=== PATIENT | female | born 2005 | race Caucasian/White ===

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

== ENCOUNTER 2024-03-13 07:40 | Outpatient (CLI) | payer OTHER, SELFPAY ==
--- OUTSIDE RECORDS SUMMARY | 2024-03-13 07:47 | XMS RPT_ITS | CCD ---
Author Organization [facility] Care Team Providers Care Systems Test Engineer Name Role Phone Javi Thapa Unavailable Robyn WILKINSON, Ren Liu Primary Care Provider Robyn WILKINSON, Ren Liu Primary Care Provider Unavailable Primary Care Provider Unavailabl e Unavailable Primary Care Provider Unavailabl e ANITRA CALDWELL Referring Unavailable VITOR BROWER Attending Unavailable JAVI, ANITRA Attending Unavailable JAVI, ANITRA Referring Unavailable CHICORELLI, MAYDA SHAIKH Referring Unavailab le CALDWELL, ANITRA Attending Unavailable CALDWELL, ANITRA Attending Unavailable CHICORELLI, MAYDA SHAIKH Referring Unavailab le CAIO, ZAIN Attending Unavailable CALDWELL, ANITRA Referring Unavailable CHICORELLI, MAYDA SHAIKH Attending Unavailab le CHICORELLI, MAYDA SHAIKH Referring Unavailab le CHICORELLI, MAYDA SHAIKH Referring Unavailab le CAIO, ZAIN Attending Unavailable CHICORELLI, MAYDA SHAIKH Referring Unavailab le CALDWELL, ANITRA Referring Unavailable PLOTLEENA FITZPATRICK Attending Unavailable ANITRA CALDWELL Attending Unavailable Allergies Allergy Classification Reported Allergen(s) Allergy Type Date of Onset Reaction(s) Facility Lactase (3 sources) Lactase Drug Allergy 06-26-2020 Other: See Comments [facility] (18 sources) Lactase; Translations: [LACTASE] Drug Allergy 06-26-2020 Other: See Comments [facility] Medications Current Medications Medication Drug Class(es) Dates Sig (Normalized) Sig (Original) aspirin 81 mg delayed release oral tablet (18 sources) Platelet Aggregation Inhibitor, Nonsteroidal Anti-inflammatory Drug Start: 11-14-2023 End: 02-25-2024 take 1 tablet by mouth once daily aspirin, enteric coated (ECOTRIN LOW STRENGTH) 81 mg EC tablet Indications: Encounter for care in first trimester of first Take 1 tablet by mouth once daily. 90 tablet 3 02/25/2024 Active mupirocin 0.02 mg/mg topical ointment (1 source) RNA Synthetase Inhibitor Antibacterial Start: 01-22-2023 End: 01-27-2023 mupirocin (BACTROBAN) 2 % ointment Apply to affected area three times daily for 5 days. 30 g 0 01/22/2023 01/27/2023 Active Comment on above: Apply to affected ar ea three times daily for 5 days. ondansetron 4 mg disintegrating oral tablet (20 sources) Serotonin-3 Receptor Antagonist Start: 11-05-2023 ondansetron orally disintegrating (ZOFRAN ODT) 4 mg disintegrating tablet EVERY 8 HOURS NEEDED as needed for Nausea 11/05/2023 Active Uvzpwvmy-Gj-Ueu-Fe-F A tab (17 sources) Start: 11-14-2023 take 1 tablet by mouth once daily Gdsltsjm-Ak-Rrn-Fe- FA tab Take 1 tablet by mouth once daily. With folic acid and DHA as covered by insurance. 30 tablet 11 11/14/2023 Active VIT 10-IRON FUM-FOLIC ORAL (17 sources) VIT 10-IRON FUM-FOLIC ORAL Take by mouth. Active VIT 10- IRON FUM-FOLIC ORAL Take by mouth. 0 Active promethazine hydrochloride 12.5 mg oral tablet (11 sources) Phenothiazine Start: 12-10-2023 take 1 tablet by mouth every six hours as needed promethazine (PHENERGAN) 12.5 mg tablet Take 1 tablet by mouth every 6 hours as needed. 30 tablet 1 12/10/2023 Active proparacaine hydrochloride 5 mg/ml ophthalmic solution (1 source) Local Anesthetic Start: 08-02-2022 End: 08-02-2022 proparacaine 0.5 % 1 Drop (ALCAINE) tropicamide 10 mg/ml ophthalmic solution (1 source) Anticholinergic Start: 08-02-2022 End: 08-02-2022 tropicamide 1 % 1 Drop (MYDRIACYL) vitamin b6 50 mg oral tablet (10 sources) take 1 tablet by mouth once daily pyridoxine, vitamin B6, (VITAMIN B-6) 50 mg tablet Take 50 mg by mouth once daily. Active Completed/Discontinued Medications Medication Drug Class(es) Dates Sig (Normalized) Sig (Original) amoxicillin 500 mg oral capsule (4 sources) Penicillin-class Antibacterial Start: 03-20-2017 AMOXICILLIN 500 MG CAPS 1 capsule 3 times a day AMOXICILLIN [id number] Javi WEAVER Start: 08-12-2016 End: 08-22-2016 AMOXICILLIN 500 MG TABS Take 1 tablet twice daily. AMOXICILLIN [id number] Luis WEAVER ketoconazole 20 mg/ml medicated shampoo (20 sources) Azole Antifungal Start: 02-22-2020 End: 04-02-2023 ketoconazole (NIZORAL) 2 % shampoo Shampoo twice weekly (at least 3 days between each shampoo) for up to 8 weeks. Then use as needed. 120 mL 5 02/22/2020 04/02/2023 Discontinued Comment on above: Shampoo twice weekly (at least 3 days between each shampoo) for up to 8 weeks. Then use as needed. lidocaine hydrochloride 20 mg/ml mucous membrane topical solution (5 sources) Antiarrhythmic, Amide Local Anesthetic Start: 04-28-2022 End: 04-02-2023 LIDOCAINE VISCOUS 2 % solution Indications: Sore throat Take 5-10 mL by mouth three times daily as needed. 120 mL 2 04/28/2022 04/02/2023 Discontinued Comment on above: Take 5-10 mL by mout h three times daily as needed. meloxicam 15 mg oral tablet (10 sources) Nonsteroidal Anti-inflammatory Drug Start: 04-03-2020 End: 01-01-2022 take 1 tablet by mouth once daily meloxicam (MOBIC) 15 mg tablet Indications: Patellar tendinitis of right knee Take 1 tablet by mouth once daily. 30 tablet 0 04/03/2020 01/01/2022 Discontinued Comment on above: Take 1 tablet by james th once daily. metoclopramide 10 mg oral tablet (4 sources) Dopamine-2 Receptor Antagonist Start: 11-28-2023 End: 12-28-2023 take 1 tablet by mouth every eight hours as needed metoclopramide HCl (REGLAN) 10 mg tablet Take 1 tablet by mouth three times a day as needed. 90 tablet 1 11/28/2023 12/10/2023 Discontinued (Course of therapy completed) phenylephrine hydrochloride 25 mg/ml ophthalmic solution (1 source) alpha-1 Adrenergic Agonist Start: 08-02-2022 End: 08-02-2022 PHENYLephrine 2.5 % 1 Drop (AK-DILATE, TYRELL-SYNEPHRINE) predniSONE 10 mg oral tablet (3 sources) Start: 01-22-2023 End: 04-02-2023 predniSONE (DELTASONE) 10 mg tablet Take 4 tabs daily for 3 days, then 2 tabs daily for 3 days, then 1 tab daily for 3 days with food. 21 tablet 01/22/2023 04/02/2023 Discontinued Comment on above: Take 4 tabs daily fo r 3 days, then 2 tabs daily for 3 days, then 1 tab daily for 3 days with food. triamcinolone acetonide 0.25 mg/ml topical cream (10 sources) Corticosteroid Start: 02-22-2020 End: 01-01-2022 triamcinolone (KENALOG) 0.025 % cream Apply a thin film 2-4 times per day. Discontinue when control is achieved. 80 g 0 02/22/2020 01/01/2022 Discontinued Comment on above: Apply a thin film 2- 4 times per day. Discontinue when control is achieved. Problems Active Problems Problem Classification Problem Date Documented Da te Episodic/Chronic Anxiety disorders (20 sources) Generalized anxiety disorder; Translations: [Generalized anxiety disorder] Onset: 11-14-2023 11-14-2023 Chronic Blindness and vision defects (2 sources) Bilateral myopia of eyes; Translations: [Myopia, bilateral] Episodic Conditions associated with dizziness or vertigo (1 source) Dizziness; Translations: [Dizziness and giddiness] 11-05-2023 Episodic E Codes: Natural/environment (1 source) Cat bite - wound; Translations: [Bitten by cat, initial encounter] Episodic Hemorrhage during ; abruptio placenta; placenta previa (5 sources) Low lying placenta; Translations: [Low lying placenta NOS or without hemorrhage, unspecified trimester] Onset: 01-26-2024 01-26-2024 Episodic Inflammatory diseases of female pelvic organs (1 source) Acute vaginitis; Translations: [Acute vaginitis] 11-14-2023 Episodic Joint disorders and dislocations; trauma-related (4 sources) 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; Translations: [Loose body in knee, left knee] Onset: 08-29-2023 Chronic Nausea and vomiting (4 sources) Nausea; Translations: [Nausea] 08-27-2023 Episodic Other bone disease and musculoskeletal deformities (1 source) Osteochondritis dissecans; 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, 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 Other complications of (10 sources) Nausea and vomiting; Translations: [Vomiting of , unspecified] Onset: 11-17-2023 11-17-2023 Episodic Other complications of (13 sources) Rubella non-immune; Translations: [Supervision of other high risk pregnancies, unspecified trimester] Onset: 12-12-2023 12-12-2023 Episodic Other complications of (1 source) Backache; Translations: [Back pain in ] 01-23-2024 Episodic Other complications of (3 sources) Heartburn; Translations: [Other specified related conditions, second trimester] Onset: 02-25-2024 02-25-2024 Episodic Other complications of (1 source) Supervision of other high risk pregnancies, unspecified trimester; Translations: [Rubella non-immune status, antepartum] Onset: 12-12-2023 Episodic Other complications of (1 source) Other specified related conditions, second trimester; Translations: [Heartburn during in second trimester] Onset: 02-25-2024 Episodic Other gastrointestinal disorders (1 source) Heartburn; Translations: [Heartburn during in second trimester] Onset: 02-25-2024 Episodic Other nervous system disorders (1 source) Other chronic pain; Translations: [Chronic pain of left knee] Onset: 07-31-2023 Chronic Other non-traumatic joint disorders (4 sources) Pain in unspecified knee; Translations: [Pain in joint, lower leg] Episodic Other non-traumatic joint disorders (4 sources) Instability of left patellofemoral joint; Translations: [Other instability, left knee] Episodic Other and delivery including normal (20 sources) with uncertain dates; Translations: [Encounter for supervision of normal , unspecified, unspecified trimester] Onset: 11-14-2023 11-14-2023 Episodic Other skin disorders (1 source) Eruption; Translations: [Rash and other nonspecific skin eruption] 01-22-2023 Episodic Other upper respiratory infections (7 sources) Pharyngitis; Translations: [Streptococcal sore throat] Onset: 08-12-2016 03-20-2017 Episodic Residual codes; unclassified (3 sources) Pain; Translations: [Pain, unspecified] Episodic Residual codes; unclassified (3 sources) Gestation period, 12 weeks; Translations: [12 weeks gestation of ] 11-28-2023 Episodic Residual codes; unclassified (1 source) Gestation period, 15 weeks; Translations: [15 weeks gestation of ] 12-23-2023 Episodic Residual codes; unclassified (2 sources) Gestation period, 20 weeks; Translations: [20 weeks gestation of ] 01-23-2024 Episodic Residual codes; unclassified (1 source) Gestation period, 24 weeks; Translations: [24 weeks gestation of ] 02-25-2024 Episodic Residual codes; unclassified (1 source) 24 weeks gestation of ; Translations: [24 weeks gestation of ] Onset: 02-25-2024 Episodic Residual codes; unclassified (1 source) 15 weeks gestation of ; Translations: [15 weeks gestation of ] Onset: 12-23-2023 Episodic Unclassified (17 sources) [facility] Education - COMMON Onset: 11-14-2023 11-14-2023 Unclassified (17 sources) Education - [place] Onset: 11-14-2023 11-14-2023 Unclassified (1 source) Rubella non-immune status, antepartum; Translations: [Rubella non-immune status, antepartum] Onset: 12-12-2023 Past or Other Problems Problem Classification Problem Date Documented Date Episodic/Chronic Acquired foot deformities (20 sources) Talipes planus; Translations: [Flat foot [pes planus] (acquired), unspecified foot] Onset: 01-14-2019 01-14-2019 Episodic Chronic obstructive pulmonary disease and bronchiectasis (2 sources) Bronchitis; Translations: [Bronchitis, not specified as acute or chronic] Onset: 03-20-2017 03-20-2017 Episodic Genitourinary symptoms and ill-defined conditions (20 sources) Nocturnal enuresis; Translations: [Nocturnal enuresis] Onset: 10-16-2010 Resolved: 02-22-2020 02-22-2020 Chronic Joint disorders and dislocations; trauma-related (20 sources) Dislocation of patellofemoral joint; Translations: [Unspecified dislocation of left patella, subsequent encounter] Onset: 02-04-2022 Resolved: 12-02-2023 Episodic Other aftercare (20 sources) Surgical follow-up; Translations: [Encounter for follow-up examination after completed treatment for conditions other than malignant neoplasm] Onset: 02-04-2022 Resolved: 12-02-2023 Episodic Other and unspecified benign neoplasm (20 sources) Benign neoplasm of soft tissue; Translations: [Melanocytic nevi, unspecified] Onset: 02-22-2020 02-22-2020 Episodic Other complications of (13 sources) Vomiting of , unspecified; Translations: [Unspecified vomiting of , unspecified as to episode of care or not applicable] Onset: 11-17-2023 12-01-2023 Episodic Other connective tissue disease (20 sources) Ganglion cyst of left wrist; Translations: [Ganglion, left wrist] Resolved: 02-22-2020 02-22-2020 Episodic Other inflammatory condition of skin (20 sources) Seborrheic dermatitis; Translations: [Seborrheic dermatitis, unspecified] Onset: 06-05-2016 06-05-2016 Episodic Other lower respiratory disease (20 sources) Chronic cough; Translations: [Chronic cough] Onset: 06-10-2017 Resolved: 11-25-2019 11-25-2019 Episodic Other non-traumatic joint disorders (20 sources) Pain in left knee; Translations: [Pain in joint, lower leg] Onset: 02-22-2020 Episodic Other screening for suspected conditions (not mental disorders or infectious disease) (3 sources) Patient encounter status; Translations: [Encounter for screening for malformations] Onset: 11-28-2023 11-28-2023 Episodic Other upper respiratory disease (2 sources) Pain in throat; Translations: [Acute pharyngitis, unspecified] Onset: 08-12-2016 08-12-2016 Episodic Residual codes; unclassified (20 sources) Influenza vaccination declined; Translations: [Immunization not carried out because of patient refusal] Onset: 06-10-2017 Resolved: 12-02-2023 06-10-2017 Episodic Residual codes; unclassified (1 source) 12 weeks gestation of ; Translations: [12 weeks gestation of ] Onset: 11-28-2023 Episodic Residual codes; unclassified (1 source) Other specified postprocedural states; Translations: [S/P knee surgery] Onset: 08-19-2023 Episodic Screening and history of mental health and substance abuse codes (20 sources) H/O: depression; Translations: [Personal history of other mental and behavioral disorders] Onset: 11-14-2023 11-14-2023 Episodic Results Test Name Value Interpretation Reference Range Facil ity CNOVon 02-25-2024 CNOV Office Visit (OBGYWM ) BEATRIS FLETCHER ([id number]) 3 F Date Time Provider Department 02/25/24 2:30 PM LEENA GAYTAN OBBENOITWM During your visit today, we recorded the following information about you: Blood pressure Weight 110/68 71.5 kg Leena Gaytan APRN.CN 02/25/2024 4:34 PM Signed CP- CENTERING S: Beatrisniels Fletcher is a 18 year old female who presents at 24 weeks gestation for a routine visit and centering. Positive movements. Denies headache, visual changes, chest pain, shortness of breath, vaginal bleeding, leakage of fluid, or dysuria. Feeling well, no complaints. O: See flow sheet Gen: No apparent distress Abd: Gravid, nontender ASSESSMENT/PLAN: 1. 24 weeks gestation of - ICD9: V22.2, ICD10: Z3A.24 (primary diagnosis) 2. Supervision of normal first teen in second trimester - ICD9: V22.0, ICD10: Z34.02 3. Generalized anxiety disorder - ICD9: 300.02, ICD10: F41.1 4. Rubella non-immune status, antepartum - ICD9: 646.83, V15.83, ICD10: O09.899, Z28.39 5. History of depression - ICD9: V11.8, ICD10: Z86.59 6. Heartburn in - TUMS as needed - Continue ASA and vitamin daily - Continues to have back pain, suggested support band and chiropractor - PTL precautions reviewed - RTO 4 weeks GIL Shah Amanda, MA 02/25/2024 2:22 PM Signed SEQUENTIAL SCREENINGS The [facility] offers sequential screenings for women who are interested in screenings for chromosomal abnormalities and certain defects during a . The sequential screen combines ultrasound and blood tests to determine the risk of chromosomal abnormalities, including Down's Syndrome (Trisomy 21) and Trisomy 18, as well as open neural tube defects including spina bifida. Ultrasound examination is performed between 11 weeks and 13 weeks gestational age. Blood tests are drawn after the ultrasound and again later in the between 15 and 21 weeks gestational age. Please let your physician know if you are interested in this testing. It will require an appointment with our chemistry laboratory technician. This is not an ultrasound performed by a physician in our office during a routine visit. SIGNS AND SYMPTOMS OF LABOR 1. Contractions every 10 minutes or more often 2. Clear, pink, or brownish fluid (water) leaking from vagina 3. Feeling that baby is pushing down, pressure 4. Low, dull backache 5. Cramps that feel like a period 6. Cramps with or without diarrhea If you notice any of the above symptoms, contact our office at [phone] and ask to speak with a nurse. After hours, you can call doctors registry at [phone] OR call [facility] at [phone] and ask to have the doctor x ray electronics wireman paged. If you consider this an emergency, dial 9-1-6 or go to your nearest emergency department. NEED HELP? Are you dealing with a violent or abusive relationship? Are you a victim of rape or sexual assult? Call [facility] ([place]) 24 hour Crisis Hotline: 992.350.1925 or 836-678-1488. MANUAL Your Guide to a Healthy manual is now on-line. Visit [email or web address] [email or web address] to download your free copy Allergies As of Date: 02/25/2024 Noted Allergy Reaction LACTASE 06/26/2020 14 - Other: See Comments Date Reviewed: 02/25/2024 Reviewed by: Plotts, Leena, SERVER PROGRAMMER.CNM - Fully Assessed Reason for Visit: Care [86] Primary Visit Diagnosis:24 weeks gestation of [Z3A.24] Other Visit Diagnoses:Supervision of normal first teen in second trimester [Z34.02] Generalized anxiety disorder [F41.1] Rubella non-immune status, antepartum [O09.899, Z28.39] History of depression [Z86.59] Encounter for care in first trimester of first [Z34.01] Heartburn during in second trimester [O26.892, R12] Order(s):COMPLETE BLOOD COUNT AND DIFFERENTIAL [SQCBCDIF] Order #: [id number] FUTURE GESTATIONAL GLUCOSE SCREEN, 1-HOUR, 50 GRAM, NON-FASTING [SQGLTGST] Order #: [id number] FUTURE SYPHILIS TREPONEMAL W/REFLEX [SQSYPHTX] Order #: [id number] FUTURE aspirin, enteric coated (ECOTRIN LOW STRENGTH) 81 mg EC tabletTake 1 tablet by mouth once daily.Disp: 90 tabletRfl: 3 Prescriptions as of 02/25/2024 - aspirin, enteric coated (ECOTRIN LOW STRENGTH) 81 mg EC tablet Take 1 tablet by mouth once daily. - pyridoxine, vitamin B6, (VITAMIN B-6) 50 mg tablet Take 50 mg by mouth once daily. - promethazine (PHENERGAN) 12.5 mg tablet Take 1 tablet by mouth every 6 hours as needed. - Mwwbyvqv-Es-Fdl-Fe-FA tab Take 1 tablet by mouth once daily. With folic acid and DHA as covered by insurance. - VIT 10-IRON FUM-FOLIC ORAL Take by mouth. - ondansetron orally disintegrating (ZOFRAN ODT) 4 mg disintegrating tablet EVERY 8 HOURS N (more content not included)... Normal [facility] 02-25-2024 [facility]UD[facility] Telephone (OBGYWM) BEATRIS FLETCHER ([id number]) 3 F Date Time Provider Department 02/25/24 LEENA GAYTAN OBGYWM During your visit today, we recorded the following information about you: Brenda Chaidez RN 02/25/2024 8:46 AM Signed Left message for patient to return phone call. Patient is scheduled today for Centering. Please let her know that this is group 4 of Centering and it is their 8th meeting. She was originally enrolled in Group 5 and their group was last Friday. She is welcome to come today and have her OB visit and join our centering group for the day-we have a speaker on car seats coming in or she can have OB visit with one of OB providers outside of Centering. Her next visits are scheduled with the correct #5 centering group. Allergies As of Date: 02/25/2024 Noted Allergy Reaction LACTASE 06/26/2020 14 - Other: See Comments Date Reviewed: 02/25/2024 Reviewed by: Leena Gaytan APRN.CNM - Fully Assessed Reason for Visit: Centering [Other] Prescriptions as of 02/26/2024 - aspirin, enteric coated (ECOTRIN LOW STRENGTH) 81 mg EC tablet Take 1 tablet by mouth once daily. - pyridoxine, vitamin B6, (VITAMIN B-6) 50 mg tablet Take 50 mg by mouth once daily. - promethazine (PHENERGAN) 12.5 mg tablet Take 1 tablet by mouth every 6 hours as needed. - Hwfnqlad-Ww-Vmb-Fe-FA tab Take 1 tablet by mouth once daily. With folic acid and DHA as covered by insurance. - VIT 10-IRON FUM-FOLIC ORAL Take by mouth. - ondansetron orally disintegrating (ZOFRAN ODT) 4 mg disintegrating tablet EVERY 8 HOURS NEEDED as needed for Nausea Problem List As Of Date 02/25/2024 Noted Resolved Nocturnal enuresis [N39.44] 10/16/2010 02/22/2020 Seborrhea [L21.9] 06/05/2016 Chronic cough [R05.3] 06/10/2017 11/25/2019 Influenza vaccine refused [Z28.21] 06/10/2017 12/02/2023 Flat foot [M21.40] 01/14/2019 Ganglion cyst of wrist, left [M67.432] 02/22/2020 Chronic pain of right knee [M25.561, G89.29] 02/22/2020 Nevus [D22.9] 02/22/2020 Patellar dislocation, left, subsequent encounte*02/04/2022 12/02/2023 S/P orthopedic surgery, follow-up exam [Z09] 02/04/2022 12/02/2023 S/P knee surgery [Z98.890] 08/19/2023 12/02/2023 Generalized anxiety disorder [F41.1] 11/14/2023 History of depression [Z86.59] 11/14/2023 Supervision of normal first teen in s*11/14/2023 Nausea and vomiting during [O21.9] 11/17/2023 Normal first with uncertain date of L*11/17/2023 Rubella non-immune status, antepartum [O09.899,*12/12/2023 Low-lying placenta [O44.40] 01/26/2024 Heartburn during [O26.899, R12] 02/25/2024 Encounter Status:Closed by LULÚ LACY on 02/26/24 Normal [facility] [place] 01-26-[address] [facility] Telephone ([id number]) JESBEATRIS Tavon ([id number]) 3 F Date Time Provider Department 01/26/24 AMELIA ARMSTRONG [id number] During your visit today, we recorded the following information about you: Amelia Armstrong RN 01/26/2024 8:47 AM Signed 2nd risk assessment form submitted 01/26/2024. Amelia Armstrong RN Allergies As of Date: 01/26/2024 Noted Allergy Reaction LACTASE 06/26/2020 14 - Other: See Comments Date Reviewed: 01/23/2024 Reviewed by: Tammi Betancourt MA - Fully Assessed Reason for Visit: Soft Drink Powder Mixer - Other [3602] Cmt: PRAF Prescriptions as of 01/26/2024 - pyridoxine, vitamin B6, (VITAMIN B-6) 50 mg tablet Take 50 mg by mouth once daily. - promethazine (PHENERGAN) 12.5 mg tablet Take 1 tablet by mouth every 6 hours as needed. - aspirin, enteric coated (ECOTRIN LOW STRENGTH) 81 mg EC tablet Take 1 tablet by mouth once daily. - Wgmikmof-Wg-Jxt-Fe-FA tab Take 1 tablet by mouth once daily. With folic acid and DHA as covered by insurance. - VIT 10-IRON FUM-FOLIC ORAL Take by mouth. - ondansetron orally disintegrating (ZOFRAN ODT) 4 mg disintegrating tablet EVERY 8 HOURS NEEDED as needed for Nausea Problem List As Of Date 01/26/2024 Noted Resolved Nocturnal enuresis [N39.44] 10/16/2010 02/22/2020 Seborrhea [L21.9] 06/05/2016 Chronic cough [R05.3] 06/10/2017 11/25/2019 Influenza vaccine refused [Z28.21] 06/10/2017 12/02/2023 Flat foot [M21.40] 01/14/2019 Ganglion cyst of wrist, left [M67.432] 02/22/2020 Chronic pain of right knee [M25.561, G89.29] 02/22/2020 Nevus [D22.9] 02/22/2020 Patellar dislocation, left, subsequent encounte*02/04/2022 12/02/2023 S/P orthopedic surgery, follow-up exam [Z09] 02/04/2022 12/02/2023 S/P knee surgery [Z98.890] 08/19/2023 12/02/2023 Generalized anxiety disorder [F41.1] 11/14/2023 History of depression [Z86.59] 11/14/2023 Supervision of normal first teen in s*11/14/2023 Nausea and vomiting during [O21.9] 11/17/2023 Normal first with uncertain date of L*11/17/2023 Rubella non-immune status, antepartum [O09.899,*12/12/2023 Encounter Status:Closed by AMELIA ARMSTRONG on 01/26/24 [facility] Telephone (OBGYWM) BEATRIS FLETCHER ([id number]) 3 F Date Time Provider Department 01/26/24 ANITRA CALDWELL During your visit today, we recorded the following information about you: Andrea Carlton RN 01/26/2024 12:21 PM Signed ----- Message from Anitra Caldwell APRN.CNM sent at 01/26/2024 11:43 AM EDT ----- Anatomy ultrasound reviewed. Please assist in scheduling follow up US at 32 weeks for placental location. Please place copy in OB chart. GIL Taylor Tara, RN 01/26/2024 12:22 PM Signed Left message for patient to call office. ADRIEN De Guzman Trisha, RN 01/27/2024 1:49 PM Signed Patient notified. Lulú Lacy RN Allergies As of Date: 01/26/2024 Noted Allergy Reaction LACTASE 06/26/2020 14 - Other: See Comments Date Reviewed: 01/23/2024 Reviewed by: Tammi Betancourt MA - Fully Assessed Reason for Visit: ULTRASOUND [Other] Prescriptions as of 01/27/2024 - pyridoxine, vitamin B6, (VITAMIN B-6) 50 mg tablet Take 50 mg by mouth once daily. - promethazine (PHENERGAN) 12.5 mg tablet Take 1 tablet by mouth every 6 hours as needed. - aspirin, enteric coated (ECOTRIN LOW STRENGTH) 81 mg EC tablet Take 1 tablet by mouth once daily. - Mselzvsz-Ds-Dda-Fe-FA tab Take 1 tablet by mouth once daily. With folic acid and DHA as covered by insurance. - VIT 10-IRON FUM-FOLIC ORAL Take by mouth. - ondansetron orally disintegrating (ZOFRAN ODT) 4 mg disintegrating tablet EVERY 8 HOURS NEEDED as needed for Nausea Problem List As Of Date 01/26/2024 Noted Resolved Nocturnal enuresis [N39.44] 10/16/2010 02/22/2020 Seborrhea [L21.9] 06/05/2016 Chronic cough [R05.3] 06/10/2017 11/25/2019 Influenza vaccine refused [Z28.21] 06/10/2017 12/02/2023 Flat foot [M21.40] 01/14/2019 Ganglion cyst of wrist, left [M67.432] 02/22/2020 Chronic pain of right knee [M25.561, G89.29] 02/22/2020 Nevus [D22.9] 02/22/2020 Patellar dislocation, left, subsequent encounte*02/04/2022 12/02/2023 S/P orthopedic surgery, follow-up exam [Z09] 02/04/2022 12/02/2023 S/P knee surgery [Z98.890] 08/19/2023 12/02/2023 Generalized anxiety disorder [F41.1] 11/14/2023 History of depression [Z86.59] 11/14/2023 Supervision of normal first teen in s*11/14/2023 Nausea and vomiting during [O21.9] 11/17/2023 Normal first with uncertain date of L*11/17/2023 Rubella non-immune status, antepartum [O09.899,*12/12/2023 Low-lying placenta [O44.40] 01/26/2024 Encounter Status:Closed by LULÚ LACY on 01/27/24 [facility] Examination level ultrasound on 01-23-2024 Indication Standard anatomic survey Impression REMOTE READ The patient is referred for a standard anatomic survey. - Single, live, intrauterine . - biometry is consistent with the established gestational age. - No malformations were visualized on a complete standard anatomic survey. - The amniotic fluid volume is normal amount. - The placenta is anterior, low lying, around 1.3 cm from internal os. - The Transvaginal cervical length measures 37 mm with no evidence of funneling or other dynamic changes. - Not all structural malformations can be detected by ultrasound examination. Recommendations Growth and placental location at 32 weeks Maternal Assessment Height 165 cm Height (ft) 5 ft Height (in) 5 in Physical Exam Initial weight (lb) 130 lb Initial BMI 21.63 kg/m Maternal assessment other: 1 Para 0 Method Transabdominal and transvaginal ultrasound examination. View: Adequate visualization [place] . Number of fetuses: 1 Dating LMP on: 08/21/2023 GA by LMP 22 w + 1 d RICK by LMP: 05/27/2024 GA by prior assessment 20 w + 0 d RICK by prior assessment: 06/11/2024 Ultrasound examination on: 01/23/2024 GA by U/S based upon: AC, BPD, Femur, HC GA by U/S 20 w + 4 d RICK by U/S: 06/07/2024 Assigned: based on stated RICK, selected on 01/23/2024 Assigned GA 20 w + 0 d Assigned RICK: 06/11/2024 General Evaluation Cardiac activity present. FHR 142 bpm. movements: present. Presentation: cephalic Placenta: Placental site: anterior, low lying Umbilical cord: Cord vessels: 3 vessel cord Amniotic fluid: Amount of AF: normal amount. MVP 6.0 cm Growth Overview Exam date GA BPD (mm) HC (mm) AC (mm) FL (mm) HL (mm) EFW (g) 01/23/2024 20w 0d 47.2 62% 180.8 65% 160.2 80% 33 74% 32.7 87% 372 82% Biometry Standard BPD 47.2 mm 20w 2d 62% Hadlock OFD 65.0 mm 20w 4d 93% Nicolaides HC 180.8 mm 20w 3d 65% Shabbir Cerebellum tr 19.5 mm 18w 6d 37% Hill Nuchal fold 4.9 mm AC 160.2 mm 21w 1d 80% Hadlock Femur 33.0 mm 20w 3d 74% Shabbir Humerus 32.7 mm 21w 0d 87% Shabbir EFW 372 g 20w 4d 82% Hadlock EFW (lb) 0 lb EFW (oz) 13 oz EFW by: Hadlock (HC-AC-FL) [employer] Equipment Technician 6.0 mm CM 7.3 mm 97% Nicolaides Extremities / Bony Struc FL / HC 0.18 26% Hadlock Other Structures FHR 142 bpm Anatomy Cranium: normal Lateral ventricles: normal Choroid plexus: normal Midline falx: normal Cavum septi pellucidi: normal Cerebellum: normal Cisterna magna: normal Head / Neck Vermis: Normal but not required for a standard anatomy exam Neck: Normal but not required for a standard anatomy exam Nuchal fold: Normal but not required for a standard anatomy exam Lips: normal Profile: Normal but not required for a standard anatomy exam Nose: Normal but not required for a standard anatomy exam Face Maxilla: Normal but not required for a standard anatomy exam Mandible: Normal but not required for a standard anatomy exam Orbits: Normal but not required for a standard anatomy exam Lens: Normal but not required for a standard anatomy exam 4-chamber view: normal RVOT view: normal LVOT view: normal 3-vessel view: normal 5-ubhqxv-olrbexi view: normal Heart / Thorax Situs: situs solitus (normal) Aortic arch view: Normal but not required for a standard anatomy exam SVC: Normal but not required for a standard anatomy exam IVC: Normal but not required for a standard anatomy exam Cardiac axis: normal Rt lung: Normal but not required for a standard anatomy exam Lt lung: Normal but not required for a standard anatomy exam Diaphragm: Normal but not required for a standard anatomy exam Cord insertion: normal Stomach: normal Kidneys: normal Bladder: normal Genitals: normal Abdomen Abdom. wall: normal Cervical spine: normal Thoracic spine: normal Lumbar spine: normal Sacral spine: normal Arms: normal Legs: normal Rt upper arm: normal Rt forearm: normal Rt hand: normal Rt fingers: normal Lt upper arm: normal Lt forearm: normal Lt hand: normal Lt fingers: normal Rt upper leg: normal Rt lower leg: normal Rt foot: normal Lt upper leg: normal Lt lower leg: normal Lt foot: normal sex: male Wants to know sex: yes Maternal Structures Uterus / Cervix Uterus: Visualized Cervix: Visualized Approach: Transvaginal Cervical length 37.0 mm Ovaries / Tubes / Adnexa Rt ovary: Visualized Lt ovary: Visualized Performed By: Dyan Partida RDMS, RVT Read By: Deandra Reza M.D. MATERNAL MEDICINE [facility] Radiology Study observation (narrative) [facility] ALPHA FETOPRO MATERNALon AFP, MATERNAL 0.67 MoM [facility] Comment on above: Order Comment: Speci men Type: BLOOD SPECIMENOrdering Facility: [facility] Address: [address] [place] [address] Result Comment: 21.9 7 ng/mL Performed By: #### A FPMAT ####[facility] LABCLIA [id number] [place] [address] [place] DATE OF COLLECTION #1 12/23/23 [facility] Comment on above: Order Comment: Speci men Type: BLOOD SPECIMENOrdering Facility: [facility] Address: [address] [place] [address] Performed By: #### A FPMAT ####[facility] LABCLIA [id number] [place] [address] [place] DATE RECEIVED 12/24/23 [facility] Comment on above: Order Comment: Speci men Type: BLOOD SPECIMENOrdering Facility: [facility] Address: [address] [place] [address] Performed By: #### A FPMAT ####[facility] LABCLIA [id number] [place] [address] [place] RICK 06/11/24 [facility] Comment on above: Order Comment: Speci men Type: BLOOD SPECIMENOrdering Facility: [facility] Address: [address] [place] [address] Performed By: #### A FPMAT ####[facility] LABCLIA [id number] [place] [address] [place] GESTATION AT DATE OF SAMPLE 15 weeks 4 days (by scan) [facility] Comment on above: Order Comment: Speci men Type: BLOOD SPECIMENOrdering Facility: [facility] Address: [address] [place] [address] Performed By: #### A FPMAT ####[facility] LABCLIA [id number] [address] [place] INSULIN DEPENDENT DIABETES None [facility] Comment on above: Order Comment: Kevin matthews Type: BLOOD SPECIMENOrdering Facility: [facility] Address: [address] [place] [address] Performed By: #### A FPMAT ####[facility] LABCLIA [id number] [address] [place] IVF No [facility] Comment on above: Order Comment: Rylandi men Type: BLOOD SPECIMENOrdering Facility: [facility] Address: [address] [place] [address] Performed By: #### A FPMAT ####[facility] LABIA [id number] [address] [place] MATERNAL AFP COMMENT See comments below [facility] Comment on above: Order Comment: Kevin matthews Type: BLOOD SPECIMENOrdering Facility: [facility] Address: [address] [place] [address] Result Comment: INTE RPRETATION Screening result : Screen negative Risk of NTD : 1 in 5,400 Comment : The interpretation is for NTD only A screen negative result does not exclude the possibility of a neural tube defect, because screening does not detect all affected pregnancies Performed By: #### A FPMAT ####[facility] LABCLIA [id number] [address] [place] MATERNAL AGE AT RICK 18 years Normal [facility] Comment on above: Order Comment: Kevin men Type: BLOOD SPECIMENOrdering Facility: [facility] Address: [address] [place] [address] Performed By: #### A FPMAT ####[facility] LABCLIA [id number] [address] [address] [place] PATIENT'S WEIGHT DAY OF COLLECTION 140 lb. [facility] Comment on above: Order Comment: Speci men Type: BLOOD SPECIMENOrdering Facility: [facility] Address: [address] [place] [address] Performed By: #### A FPMAT ####[facility] LABCLIA [id number] [place] [address] [place] INTERP-MATERNAL AFP Negative Normal Screen [facility] Comment on above: Order Comment: Speci men Type: BLOOD SPECIMENOrdering Facility: [facility] Address: [address] [place] [address] Performed By: #### A FPMAT ####[facility] LABCLIA [id number] [place] [address] [place] PREVIOUS NTD None [facility] Comment on above: Order Comment: Speci men Type: BLOOD SPECIMENOrdering Facility: [facility] Address: [address] [place] [address] Performed By: #### A FPMAT ####[facility] LABIA [id number] [place] [address] [place] RISK OF NTD ;1:5400 [facility] Comment on above: Order Comment: Speci men Type: BLOOD SPECIMENOrdering Facility: [facility] Address: [address] [place] [address] Performed By: #### A FPMAT ####[facility] LABCLIA [id number] [place] [address] [place] SAMPLE #1 [id number] [facility] Comment on above: Order Comment: Speci men Type: BLOOD SPECIMENOrdering Facility: [facility] Address: [address] [place] [address] Performed By: #### A FPMAT ####[facility] LABIA [id number] [address] [place] STAFF REVIEW (MATERNAL SCREENS) Reviewed by Dane Golden MD, Ph.D ([id number]) [facility] Comment on above: Order Comment: Speci men Type: BLOOD SPECIMENOrdering Facility: [facility] Address: [address] [place] [address] Performed By: #### A FPMAT ####[facility] LABIA [id number] [address] [place] Bacteria Ur Culton 4 Bacteria identified Cx Nom (U) ORGANISM ID: 1 50,000-<100,000 CFU/ml Normal urogenital manny [facility] Comment on above: Performed By: #### 6 30-4 ####[facility] [id number] [address] [place] CNOVon 12-12-2023 CNOV Office Visit (WSTR ) BEATRIS FLETCHER ([id number]) 3 F Date Time Provider Department 12/12/23 2:45 PM JOSEPH HSU [facility] During your visit today, we recorded the following information about you: Temperature Pulse Respiration Blood pressure 98 degrees 102/minute 18/minute 116/77 Weight 62 kg Joseph Hsu APRN.DIRECTOR CUSTOMER 12/12/2023 3:31 PM Signed Subjective HPI HPI Beatris Fletcher is a 18 year old female who presents today for CC of nausea/vomiting, is 14 weeks . Currently prescribed multiple anti nausea medications from [facility]. Tolerating fluids/solids, last void was just before this visit. Reports needs work note. Denies abdominal pain/vaginal bleeding. .Patient presents with: Nausea AND Vomiting: With 14 weeks PAST MEDICAL HISTORY Diagnosis Date Anemia Depression/anxiety Ganglion cyst of wrist, left Irregular menses PAST SURGICAL HISTORY Procedure Laterality Date DENTAL SURGERY HX 2015 ORTHOPEDICS SURGERY HX knee torn meniscus WRIST Left cyst on left wrist ALLERGIES Lactase MEDICATIONS pyridoxine, vitamin B6, (VITAMIN B-6) 50 mg tablet Take 50 mg by mouth once daily. promethazine (PHENERGAN) 12.5 mg tablet Take 1 tablet by mouth every 6 hours as needed. aspirin, enteric coated (ECOTRIN LOW STRENGTH) 81 mg EC tablet Take 1 tablet by mouth once daily. Qfrtdoqw-Tw-Bnc-Fe-FA tab Take 1 tablet by mouth once daily. With folic acid and DHA as covered by insurance. VIT 10-IRON FUM-FOLIC ORAL Take by mouth. ondansetron orally disintegrating (ZOFRAN ODT) 4 mg disintegrating tablet EVERY 8 HOURS NEEDED as needed for Nausea FAMILY HISTORY Problem Relation Age of Onset No Known Problems Mother No Known Problems Father Scoliosis Sister No Known Problems Sister No Known Problems Sister Heart Maternal Grandmother Hypertension Maternal Grandmother Diabetes Maternal Grandmother Lung Cancer Maternal Grandmother other (lung issues) Maternal Grandfather Hypertension Paternal Grandmother other (heart) Paternal Grandmother Breast Cancer Paternal Grandmother Stroke Paternal Grandfather Liver Disease Paternal Grandfather other (stomach issues) Paternal Grandfather Alcohol abuse Paternal Grandfather DVT Paternal Grandfather Social History Tobacco Use Smoking status: Never Smokeless tobacco: Never Vaping Use Vaping Use: Former Quit date: 05/19/2021 Substance Use Topics Alcohol use: Not Currently Comment: occasionally Drug use: No ROS Objective Blood pressure 116/77, pulse 102, temperature 36.7 ?C (98 ?F), resp. rate 18, weight 62 kg (136 lb 11 oz), last menstrual period 08/21/2023, SpO2 99%. Physical Exam Constitutional: General: She is not in acute distress. Appearance: Normal appearance. She is not toxic-appearing. Cardiovascular: Rate and Rhythm: Normal rate and regular rhythm. Heart sounds: Normal heart sounds. Pulmonary: Effort: Pulmonary effort is normal. Breath sounds: Normal breath sounds. Abdominal: General: Bowel sounds are normal. Palpations: Abdomen is soft. Tenderness: There is no abdominal tenderness. Skin: General: Skin is warm and dry. ASSESSMENT/PLAN: 1. Nausea - ICD9: 787.02, ICD10: R11.0 Continue taking medication ordered by weather strip installer Red flag s/s discussed Work note provided Joseph Hsu APRN.DIRECTOR CUSTOMER Allergies As of Date: 12/12/2023 Noted Allergy Reaction LACTASE 06/26/2020 14 - Other: See Comments Date Reviewed: 12/12/2023 Reviewed by: Jessy Alicea LPN - Fully Assessed Reason for Visit: Nausea AND Vomiting [237] Cmt: With 14 weeks Primary Visit Diagnosis:Nausea [R11.0] Prescriptions as of 12/12/2023 - pyridoxine, vitamin B6, (VITAMIN B-6) 50 mg tablet Take 50 mg by mouth once daily. - promethazine (PHENERGAN) 12.5 mg tablet Take 1 tablet by mouth every 6 hours as needed. - aspirin, enteric coated (ECOTRIN LOW STRENGTH) 81 mg EC tablet Take 1 tablet by mouth once daily. - Sqgowjve-Sa-Bei-Fe-FA tab Take 1 tablet by mouth once daily. With folic acid and DHA as covered by insurance. - VIT 10-IRON FUM-FOLIC ORAL Take by mouth. - ondansetron orally disintegrating (ZOFRAN ODT) 4 mg disintegrating tablet EVERY 8 HOURS NEEDED as needed for Nausea Problem List As Of Date 12/12/2023 Noted Resolved Nocturnal enuresis [N39.44] 10/16/2010 02/22/2020 Seborrhea [L21.9] 06/05/2016 Chronic cough [R05.3] 06/10/2017 11/25/2019 Influenza vaccine refused [Z28.21] 06/10/2017 12/02/2023 Flat foot [M21.40] 01/14/2019 Ganglion cyst of wrist, left [M67.432] 02/22/2020 Chronic pain of right knee [M25.561, G89.29] 02/22/2020 Nevus [D22.9] 02/22/2020 Patellar dislocation, left, subsequent encounte*02/04/2022 12/02/2023 S/P orthopedic surgery, follow-up exam [Z09] 02/04/2022 12/02/2023 S/P knee surgery [Z98.890] 08/19/2023 12/02/2023 (more content not included)... [facility]OBGYWM[facility] FLETCHERBEATRIS ([id number]) 3 F Date Time Provider Department 12/09/23 ANITRA CALDWELL During your visit today, we recorded the following information about you: Amelia Martinez RN 12/09/2023 9:19 AM Signed 13w4d Patient was switched from Zofran to Reglan because the Zofran was ineffective. She is wanting a different med. Reglan is causing her dizziness (which she was aware could happen) and she is still vomiting several times a day. Keeping jello and fluids down only. Is there another medication she can be prescribed? ADRIEN Sandy Jessica, APRN.CNM 12/10/2023 9:07 AM Signed We can try phenergan, but this can make her feel tired and dizzy as well. They can all have similar side effects it just depends how she responds. I started with a lower dose so would recommend to start here. Stop the Reglan and then try Phenergan. Can still take zofran inbetween doses and see if that helps. Would also add Vitamin B6 50 mg twice a day and Unisom full tablet at bedtime. Take the Unisom about 2 hrs after her last phenergan dose. If no improvement would recommend ED for iv fluids. Can always try this and make appt with me Friday to follow up and could try outpatient IV hydration as an option. Anitra Caldwell APRN.Andrea Moralez RN 12/10/2023 9:37 AM Signed Pt notified and voiced understanding. Andrea Carlton RN Allergies As of Date: 12/09/2023 Noted Allergy Reaction LACTASE 06/26/2020 14 - Other: See Comments Date Reviewed: 11/28/2023 Reviewed by: Lisa Alamo LPN - Fully Assessed Reason for Visit: Nausea AND Vomiting [237] Order(s):promethazine (PHENERGAN) 12.5 mg tabletTake 1 tablet by mouth every 6 hours as needed.Disp: 30 tabletRfl: 1 Prescriptions as of 12/10/2023 - promethazine (PHENERGAN) 12.5 mg tablet Take 1 tablet by mouth every 6 hours as needed. - aspirin, enteric coated (ECOTRIN LOW STRENGTH) 81 mg EC tablet Take 1 tablet by mouth once daily. - Wyrjrffs-To-Aby-Fe-FA tab Take 1 tablet by mouth once daily. With folic acid and DHA as covered by insurance. - VIT 10-IRON FUM-FOLIC ORAL Take by mouth. - ondansetron orally disintegrating (ZOFRAN ODT) 4 mg disintegrating tablet EVERY 8 HOURS NEEDED as needed for Nausea Problem List As Of Date 12/09/2023 Noted Resolved Nocturnal enuresis [N39.44] 10/16/2010 02/22/2020 Seborrhea [L21.9] 06/05/2016 Chronic cough [R05.3] 06/10/2017 11/25/2019 Influenza vaccine refused [Z28.21] 06/10/2017 12/02/2023 Flat foot [M21.40] 01/14/2019 Ganglion cyst of wrist, left [M67.432] 02/22/2020 Chronic pain of right knee [M25.561, G89.29] 02/22/2020 Nevus [D22.9] 02/22/2020 Patellar dislocation, left, subsequent encounte*02/04/2022 12/02/2023 S/P orthopedic surgery, follow-up exam [Z09] 02/04/2022 12/02/2023 S/P knee surgery [Z98.890] 08/19/2023 12/02/2023 Generalized anxiety disorder [F41.1] 11/14/2023 History of depression [Z86.59] 11/14/2023 Supervision of normal first teen in s*11/14/2023 Nausea and vomiting during [O21.9] 11/17/2023 Normal first with uncertain date of L*11/17/2023 Prescriptions ordered this encounter Disp Refills Start End PROMETHAZINE 12.5 MG TABLET 30 t* 1 12/10/2023 Route: ORAL Sig: Take 1 tablet by mouth every 6 hours as needed. Medications Discontinued During This Encounter Prescriptions - metoclopramide HCl (REGLAN) 10 mg tablet (Discontinued) Take 1 tablet by mouth three times a day as needed. Encounter Status:Closed by ANDREA CARLTON on 12/10/23 [facility] BEATRIS FLETCHER ([id number]) 3 F Date Time Provider Department 12/05/23 ANITRA CALDWELL During your visit today, we recorded the following information about you: Allergies As of Date: 12/05/2023 Noted Allergy Reaction LACTASE 06/26/2020 14 - Other: See Comments Date Reviewed: 11/28/2023 Reviewed by: Lisa Alamo LPN - Fully Assessed Prescriptions as of 12/05/2023 - metoclopramide HCl (REGLAN) 10 mg tablet Take 1 tablet by mouth three times a day as needed. - aspirin, enteric coated (ECOTRIN LOW STRENGTH) 81 mg EC tablet Take 1 tablet by mouth once daily. - Xjscjjzi-Xx-Jvv-Fe-FA tab Take 1 tablet by mouth once daily. With folic acid and DHA as covered by insurance. - VIT 10-IRON FUM-FOLIC ORAL Take by mouth. - ondansetron orally disintegrating (ZOFRAN ODT) 4 mg disintegrating tablet EVERY 8 HOURS NEEDED as needed for Nausea Problem List As Of Date 12/05/2023 Noted Resolved Nocturnal enuresis [N39.44] 10/16/2010 02/22/2020 Seborrhea [L21.9] 06/05/2016 Chronic cough [R05.3] 06/10/2017 11/25/2019 Influenza vaccine refused [Z28.21] 06/10/2017 12/02/2023 Flat foot [M21.40] 01/14/2019 Ganglion cyst of wrist, left [M67.432] 02/22/2020 Chronic pain of right knee [M25.561, G89.29] 02/22/2020 Nevus [D22.9] 02/22/2020 Patellar dislocation, left, subsequent encounte*02/04/2022 12/02/2023 S/P orthopedic surgery, follow-up exam [Z09] 02/04/2022 12/02/2023 S/P knee surgery [Z98.890] 08/19/2023 12/02/2023 Generalized anxiety disorder [F41.1] 11/14/2023 History of depression [Z86.59] 11/14/2023 Supervision of normal first teen in s*11/14/2023 Nausea and vomiting during [O21.9] 11/17/2023 Normal first with uncertain date of L*11/17/2023 Encounter Status:Closed by ANDREA CARLTON on 12/05/23 [facility] CARRIER SCREEN, STANDARDon 0 11-28-2023 CARRIER SCREEN RESULTS View results in Scanned Documents link when available. [facility] Comment on above: Order Comment: Speci men Type: BLOOD SPECIMENOrdering Facility: [facility] Address: [address] [place] [address] Performed By: #### C RRSCN ####MY[facility]AD[facility] [id number] [place] [address] CBC panel Auto (Bld)on 11-27 Erythrocyte distribution width (RBC) [Ratio] 12.6 % Normal 11.5-15.0 [facility] Comment on above: Order Comment: Speci men Type: BLOOD SPECIMENOrdering Facility: [facility] Address: [address] [place] [address] Performed By: #### 5 8410-2 ####[facility] [id number] [place] [address] [place] Hematocrit (Bld) [Volume fraction] 35.9 % Low 36.0-46.0 [facility] Comment on above: Order Comment: Speci men Type: BLOOD SPECIMENOrdering Facility: [facility] Address: [address] [place] [address] Performed By: #### 5 8410-2 ####[facility] [id number] [place] [address] [place] Hemoglobin (Bld) [Mass/Vol] 12.8 g/dL Normal 11.5-15.5 [facility] Comment on above: Order Comment: Speci men Type: BLOOD SPECIMENOrdering Facility: [facility] Address: [address] [place] [address] Performed By: #### 5 8410-2 ####[facility] [id number] [place] [address] [place] MCH (RBC) [Entitic mass] 30.2 pg Normal 26.0-34.0 [facility] Comment on above: Order Comment: Speci men Type: BLOOD SPECIMENOrdering Facility: [facility] Address: [address] [place] [address] Performed By: #### 5 8410-2 ####[facility] [id number] [place] [address] [place] MCHC (RBC) [Mass/Vol] 35.7 g/dL Normal 30.5-36.0 [facility] Comment on above: Order Comment: Speci men Type: BLOOD SPECIMENOrdering Facility: [facility] Address: [address] [place], [place] [address] Performed By: #### 5 8410-2 ####[facility] [id number] [place] [address] [place] MCV (RBC) [Entitic vol] 84.7 fL Normal 80.0-100.0 [facility] Comment on above: Order Comment: Speci men Type: BLOOD SPECIMENOrdering Facility: [facility] [facility]OSP[facility] Address: [address] [place] [address] Performed By: #### 5 8410-2 ####[facility] HERMELINDA [id number] [place] [address] [place] Nucleated RBC (Bld) [#/Vol] 10*3/uL Normal <0.01 [facility] Comment on above: Order Comment: Speci men Type: BLOOD SPECIMENOrdering Facility: [facility] Address: [address] [place] [address] Performed By: #### 5 8410-2 ####[facility] [id number] [place] [address] [place] Platelet mean volume (Bld) [Entitic vol] 10.6 fL Normal 9.0-12.7 [facility] Comment on above: Order Comment: Speci men Type: BLOOD SPECIMENOrdering Facility: [facility] Address: [address] [place] [address] Performed By: #### 5 8410-2 ####[facility] [id number] [place] [address] [place] Platelets (Bld) [#/Vol] 177 10*3/uL Normal 150-400 [facility] Comment on above: Order Comment: Speci men Type: BLOOD SPECIMENOrdering Facility: [facility] Address: [address] [place] [address] Performed By: #### 5 8410-2 ####[facility] NORTHLIA [id number] [place] [address] [place] RBC (Bld) [#/Vol] 4.24 10*6/uL Normal 3.90-5.20 [facility] Comment on above: Order Comment: Speci men Type: BLOOD SPECIMENOrdering Facility: [facility] Address: [address] [place] [address] Performed By: #### 5 8410-2 ####[facility] GISELA DE LEONTOWNCLIA [id number] [place] [address] [place] WBC (Bld) [#/Vol] 6.45 10*3/uL Normal 3.70-11.00 [facility] Comment on above: Order Comment: Speci men Type: BLOOD SPECIMENOrdering Facility: [facility] Address: [facility] [place] [address] Performed By: #### 5 8410-2 ####[facility] GISELA PETERSONNCLIA [id number] [address] [place] Turner 11-28-2023 CNPN Telephone (OBGYWAlexa) BEATRIS FLETCHER ([id number]) 3 F Date Time Provider Department 11/28/23 ANITRA CALDWELL During your visit today, we recorded the following information about you: Andrea Carlton RN 11/28/2023 12:35 PM Signed Pt is having Nuchal scan done today and needs order. ADRIEN De Guzman Jessica, APRN.CNM 11/28/2023 12:57 PM Signed Order signed. Anitra Caldwell APRN.CNM Allergies As of Date: 11/28/2023 Noted Allergy Reaction LACTASE 06/26/2020 14 - Other: See Comments Date Reviewed: 11/28/2023 Reviewed by: Lisa Alamo LPN - Fully Assessed Primary Visit Diagnosis:12 weeks gestation of [Z3A.12] Order(s):NUCHAL TRANSLUCENCY WHI [3105464] Order #: [id number]: 1 FUTURE Prescriptions as of 11/28/2023 - metoclopramide HCl (REGLAN) 10 mg tablet Take 1 tablet by mouth three times a day as needed. - aspirin, enteric coated (ECOTRIN LOW STRENGTH) 81 mg EC tablet Take 1 tablet by mouth once daily. - Qmofnkqu-Pe-Gaa-Fe-FA tab Take 1 tablet by mouth once daily. With folic acid and DHA as covered by insurance. - VIT 10-IRON FUM-FOLIC ORAL Take by mouth. - ondansetron orally disintegrating (ZOFRAN ODT) 4 mg disintegrating tablet EVERY 8 HOURS NEEDED as needed for Nausea Problem List As Of Date 11/28/2023 Noted Resolved Nocturnal enuresis [N39.44] 10/16/2010 02/22/2020 Seborrhea [L21.9] 06/05/2016 Chronic cough [R05.3] 06/10/2017 11/25/2019 Influenza vaccine refused [Z28.21] 06/10/2017 Flat foot [M21.40] 01/14/2019 Ganglion cyst of wrist, left [M67.432] 02/22/2020 Chronic pain of right knee [M25.561, G89.29] 02/22/2020 Nevus [D22.9] 02/22/2020 Patellar dislocation, left, subsequent encounte*02/04/2022 S/P orthopedic surgery, follow-up exam [Z09] 02/04/2022 S/P knee surgery [Z98.890] 08/19/2023 Generalized anxiety disorder [F41.1] 11/14/2023 History of depression [Z86.59] 11/14/2023 Supervision of normal first teen in s*11/14/2023 Nausea and vomiting during [O21.9] 11/17/2023 Normal first with uncertain date of L*11/17/2023 Encounter Status:Closed by NORA HAILE on 11/28/23 Normal [facility] nuchal translucency me asured by Mike 11-28-2023 Indication First trimester anatomic survey Impression REMOTE READ The patient is referred for a first trimester anatomy scan including nuchal translucency measurement as clinically indicated. - Single, live, intrauterine . - [place] rump length measurement is consistent with the established gestational age. - A qualitative screen of the nuchal translucency and other anatomic structures were unremarkable on an incomplete first trimester anatomic assessment. - Not all structural malformations can be detected by ultrasound examination. Maternal Structures: Left Ovary: Size 29 mm x 28 mm x 18 mm Recommendations Return for anatomy ultrasound Maternal Assessment Height 165 cm Height (ft) 5 ft Height (in) 5 in Physical Exam Initial weight (lb) 130 lb Initial BMI 21.63 kg/m Maternal assessment other: 1 Para Method Transabdominal ultrasound examination [place] . Number of fetuses: 1 Dating LMP on: 08/21/2023 GA by LMP 14 w + 1 d RICK by LMP: 05/27/2024 GA by prior assessment 12 w + 0 d RICK by prior assessment: 06/11/2024 Ultrasound examination on: 11/28/2023 GA by U/S based upon: CRL GA by U/S 12 w + 2 d RICK by U/S: 06/09/2024 Assigned: based on stated RICK, selected on 11/28/2023 Assigned GA 12 w + 0 d Assigned RICK: 06/11/2024 General Evaluation Cardiac activity present Placenta: anterior Cord vessels: 3 vessel cord Amniotic fluid: normal amount Biometry Standard FHR 163 bpm CRL 58.5 mm 12w 2d 65% Hadlock NT 1.60 mm First Trimester Anatomy Calvarium: normal Falx cerebri: normal Choroid plexus: normal Profile: normal Nasal bone: normal Retronasal triangle: normal Maxilla: normal Mandible: normal Nuchal translucency: Subjectively normal Situs: normal Cardiac position: normal Cardiac axis: normal 4-chamber view: normal 4-chamber view with color: normal 0-fqdvji-jbnubjs view: normal Abdominal cord insertion: normal Stomach: normal Kidneys: normal Bladder: normal Color doppler of perivesical umbilical arteries: normal Vertebral alignment: normal Arms: normal Hands: normal Legs: normal Feet: normal Maternal Structures Uterus / Cervix Uterus: Visualized Uterus length 114 mm Uterus width 96 mm Uterus height 76 mm Uterus Vol 429.6 cm Ovaries / Tubes / Adnexa Rt ovary: Not visualized Lt ovary: Visualized Lt ovary D1 29 mm Lt ovary D2 28 mm Lt ovary D3 18 mm Lt ovary Vol 7.7 cm Performed By: Dyan Partida, OLYA, RVT Read By: Deandra Reza M.D. MATERNAL MEDICINE [facility] Radiology Study observation (narrative) [facility] HBV surface Ag Ser Qlon 07-1 2-2024 HBV surface Ag Ql (S) Negative Normal Negative [facility] Comment on above: Order Comment: Speci men Type: BLOOD SPECIMENOrdering Facility: [facility] Address: [address] [place] [address] Performed By: #### 5 195-3, 72041-5, 43428-9 ####[facility] LABCLIA [id number] [place] [address] [place] HCV Ab Ser Qlon 11-28-2023 HCV Ab Ql (S) Negative Normal Negative [facility] Comment on above: Order Comment: Speci men Type: BLOOD SPECIMENOrdering Facility: [facility] Address: [address] [place] [address] Result Comment: The result suggests no evidence of active infection with Hepatitis C virus. Should recent infection be suspected, repeat testing may be considered 4-6 weeks after this draw. Performed By: #### 1 6128-1 ####[facility] LABCLIA [id number] [place] [address] [place] HGB ELECTROPHORESIS FOR EVAL (LAB ORDER)on 11-28-2023 Hemoglobin A (Bld) [Mass fraction] 97.2 % Normal 96.2-98.0 [facility] Comment on above: Order Comment: Speci men Type: BLOOD SPECIMENOrdering Facility: [facility] Address: [address] [place] [address] Performed By: #### H GBELEV ####[facility] LABCLIA [id number] [place] [address] [place] Hemoglobin A2 (Bld) [Mass fraction] 2.8 % Normal 2.0-3.1 [facility] Comment on above: Order Comment: Speci men Type: BLOOD SPECIMENOrdering Facility: [facility] Address: [address] [place] [address] Performed By: #### H GBELEV ####[facility] LABCLIA [id number] [place] [address] [place] Hemoglobin Unsp Elph (Bld) [Mass fraction] No abnormal hemoglobin identified. Normal No abnormal hemoglobin identified. [facility] Comment on above: Order Comment: Speci men Type: BLOOD SPECIMENOrdering Facility: [facility] Address: [address] [place] [address] Performed By: #### H GBELEV ####[facility] LABIA [id number] [place] [address] [place] HIV 1+2 Ab IA Qlon 4 HIV 1 and 2 Ab IA.rapid Nom (S/P/Bld) Normal [facility] Comment on above: Order Comment: Speci men Type: BLOOD SPECIMENOrdering Facility: [facility] Address: [address] [place] [address] Result Comment: Test not indicated. Performed By: #### 5 195-3, 36231-9, 69557-2 ####[facility] LABIA [id number] [place] [address] [place] HIV 1+2 Ab+HIV1 p24 Ag IA Ql Non-Reactive Normal Nonreactive [facility] Comment on above: Order Comment: Speci men Type: BLOOD SPECIMENOrdering Facility: [facility] Address: [address] [place] [address] Performed By: #### 5 195-3, 23527-7, 29405-8 ####[facility] LABIA [id number] [place] [address] [place] HIV immunoassay testing algorithm interpretation (S/P/Bld) [Interp] Normal [facility] Comment on above: Order Comment: Speci men Type: BLOOD SPECIMENOrdering Facility: [facility] Address: [address] [place] [address] Result Comment: No e vidence of HIV-1 or HIV-2 infection. Should recent infection be suspected, repeat testing may be considered 2-3 weeks after this draw. [place] Rev. Code 3701.243(E): This information has been disclosed to you from confidential records protected from disclosure by state law. ???You shall make no further disclosure of this information without the specific, written, and informed release of the individual to whom it pertains or as otherwise permitted by state law. A general authorization for the release of medical or other information is not sufficient for the purpose of the release of HIV test results or diagnoses. Performed By: #### 5 195-3, 01024-5, 77201-6 ####[facility] LABCLIA [id number] [place] [address] [place] HbA1c (Bld)on 11-28-2023 Average glucose Estimated from glycated hemoglobin (Bld) [Mass/Vol] 71 mg/dL Normal [facility] Comment on above: Order Comment: Speci men Type: BLOOD SPECIMENOrdering Facility: [facility] Address: [address] [place] [address] Result Comment: eAG: (Estimated average glucose) is a calculated value from HgbA1c and is admitting representative of the average blood glucose level in the last 2-3 month period. Performed By: #### 5 5454-3 ####[facility] LABCLIA [id number] [place] [address] [place] HbA1c (Bld) [Mass fraction] 4.1 % Low 4.3-5.6 [facility] Comment on above: Order Comment: Speci men Type: BLOOD SPECIMENOrdering Facility: [facility] Address: [address] [place] [address] Result Comment: Amer [place] Diabetes Association guidelines indicate that patients with HgbA1c in the range 5.7-6.4% are at increased risk for development of diabetes, and intervention by lifestyle modification may be beneficial. HgbA1c greater or equal to 6.5% is considered diagnostic of diabetes. Performed By: #### 5 5454-3 ####[facility] LABCLIA [id number] [place] [address] [place] [id number] PLUSon 11-28-2023 Cell-free DNA./Cell-free DNA.total Dosage of chromosome-specific cfDNA (cfDNA) [Molar fraction] 6% Normal [facility] Comment on above: Order Comment: Speci men Type: BLOOD SPECIMENOrdering Facility: [facility] Address: [address] [place] [address] Performed By: #### M AT21 ####[email or web address] LABCLIA [id number] [place] [address] Chr 13+18+21+X+Y aneuploidy Dosage of chromosome-specific cfDNA Ql (cfDNA) Negative Normal [facility] Comment on above: Order Comment: Speci men Type: BLOOD SPECIMENOrdering Facility: [facility] Address: [address] [place] [address] Performed By: #### M AT21 ####[facility] LABCLIA [id number] [place] [address] Chr 21 trisomy Dosage of chromosome-specific cfDNA Ql (cfDNA) Negative Normal [facility] Comment on above: Order Comment: Speci men Type: BLOOD SPECIMENOrdering Facility: [facility] Address: [address] [place] [address] Performed By: #### M AT21 ####[facility] LABCLIA [id number] [place] [address] Chr X and Y aneuploidy risk Sequencing Ql (cfDNA) [Interp] Not detected Normal [facility] Comment on above: Order Comment: Speci men Type: BLOOD SPECIMENOrdering Facility: [facility] Address: [address] [place] [address] Result Comment: Not Detected Not Detected Performed By: #### M AT21 ####[email or web address] LABCLIA [id number] [place] [address] Citation Bret (Reference lab test) Comment [facility] Comment on above: Order Comment: Speci men Type: BLOOD SPECIMENOrdering Facility: [facility] Address: [address] [place] [address] Result Comment: 1. Tray RODRIGUEZ, et al. [place] Med. 2012;14(3):296-305. 2. Desire KAISER et al. Prenat Diag. 2013;33(6):591-597. 3. Stephon C, et al. Clin Chem. 2015 Apr;61(4):608-616. 4. Ericka RODRIGUEZ, et al. [place] Med. 2011;13(11):913-920. 5. ACOG/SMFM Practice Bulletin No. 226, Feb 2020. Performed By: #### M AT21 ####[facility] LABCLIA [id number] [place] [address] Gestational age Estimated from conception date [place] Normal [facility] Comment on above: Order Comment: Speci men Type: BLOOD SPECIMENOrdering Facility: [facility] Address: [address] [place] [address] Performed By: #### M AT21 ####[facility] LABCLIA [id number] [place] [address] GESTATIONALAGE AGE > OR = 9W Yes Normal [facility] Comment on above: Order Comment: Speci men Type: BLOOD SPECIMENOrdering Facility: [facility] Address: [address] [place] [address] Performed By: #### M AT21 ####[facility] LABCLIA [id number] [place] [address] Laboratory comment Bret (Report) Comment [facility] Comment on above: Order Comment: Speci men Type: BLOOD SPECIMENOrdering Facility: [facility] Address: [address] [place] [address] Result Comment: The MaterniT(R) 21 PLUS laboratory-developed test (LDT) analyzes circulating cell-free DNA from a maternal blood sample. This test is used for screening purposes and not diagnostic. Clinical correlation is recommended. Validation data on twin pregnancies is limited and the ability of this test to detect aneuploidy in higher multiple gestations has not yet been validated. Performed By: #### M AT21 ####[facility] LABCLIA [id number] [place] [address] director database name Nom (Provider) Comment [facility] Comment on above: Order Comment: Speci men Type: BLOOD SPECIMENOrdering Facility: [facility] Address: [address] [place] [address] Result Comment: This specimen showed an expected representation of chromosome 21, 18 and 13 material. Clinical correlation is suggested. Comment Roger Faith MD, PhD, Director, [employer] Performed By: #### M AT21 ####[facility] LABCLIA [id number] [place] [address] LIMITATIONS OF THE TEST Comment [facility] Comment on above: Order Comment: Speci men Type: BLOOD SPECIMENOrdering Facility: [facility] Address: [address] [place] [address] Result Comment: Whmerly alberto the results of these tests are highly reliable, discordant results, including inaccurate sex prediction, may occur due to placental, maternal, or mosaicism or neoplasm; vanishing twin; prior maternal organ transplant; or other causes. These tests are screening tests and not diagnostic; they do not replace the accuracy and precision of diagnosis with CVS or amniocentesis. A patient with a positive test result should be referred for genetic counseling and offered invasive diagnosis for confirmation of test results.[5] The results of this testing, including the benefits and limitations, should be discussed with a qualified healthcare provider. management decisions, including termination of the , should not be based on the results of these tests alone. The healthcare provider is responsible for the use of this information in the management of their patient. Sex chromosomal aneuploidies are not reportable for known multiple gestations. A negative result does not ensure an unaffected nor does it exclude the possibility of other chromosomal abnormalities or defects which are not a part of these tests. An uninformative result may be reported, the causes of which may include, but are not limited to, insufficient sequencing coverage, noise or artifacts in the region, amplification or sequencing bias, or insufficient fraction. These tests are not intended to identify pregnancies at risk for neural tube defects or ventral wall defects. Testing for whole chromosome abnormalities (including sex chromosomes) and for subchromosomal abnormalities could lead to the potential discovery of both and maternal genomic abnormalities that could have major, minor, or no, clinical significance. Evaluating the significance of a positive or a non-reportable result may involve both invasive testing and additional studies on the mother. Such investigations may lead to a diagnosis of maternal chromosomal or subchromosomal abnormalities, which on occasion may be associated with benign or malignant maternal neoplasms. These tests may not accurately identify triploidy, balanced rearrangements, or the precise location of subchromosomal duplications or deletions; these may be detected by diagnosis with CVS or amniocentesis. The ability to report results may be impacted by maternal BMI, maternal weight, maternal systemic lupus erythematosus (SLE) and/or by certain pharmaceutical agents such as low molecular weight heparin (for example: Lovenox(R), Xaparin(R), Clexane(R) and Fragmin(R)). Performed By: #### M AT21 ####[facility] LABCLIA [id number] [place] [address] Monosomy X risk Dosage of chromosome-specific cfDNA Ql (Plasma cell-free+WBC DNA) [Interp] Not detected [facility] Comment on above: Order Comment: Kevin matthews Type: BLOOD SPECIMENOrdering Facility: [facility] Address: [address] [place] [address] Performed By: #### M AT21 ####[facility] LABCLIA [id number] [place] [address] NEGATIVE PREDICTIVE VALUE Note [facility] Comment on above: Order Comment: Kevin matthews Type: BLOOD SPECIMENOrdering Facility: [facility] Address: [address] [place] [address] Result Comment: The Negative Predictive Value (NPV) for trisomy 21, 18, and 13 is greater than 99%. The NPV for SCA and ESS cannot be calculated as SCA and ESS are only reported when an abnormality is detected. Performed By: #### M AT21 ####[facility] LABCLIA [id number] [place] [address] NOTE Comment [facility] Comment on above: Order Comment: Kevin matthews Type: BLOOD SPECIMENOrdering Facility: [facility] Address: [address] [place] [address] Result Comment: See Notes [employer] is a subsidiary of [employer], using the brand [employer]. This test was developed and its performance characteristics determined by [employer]. It has not been cleared or approved by the Food and Drug Administration. This laboratory is certified under the Clinical Laboratory Improvement Amendments (CLIA) as qualified to perform high complexity clinical laboratory testing and accredited by the [employer] (CAP). If there is future clinical need for adding MaterniT GENOME testing, this specimen will be available until term. [facility] samples will not be retained beyond 60 days. [facility] patients will have to send a new sample for re-sequencing ([facility] Test Code: 143090). Performed By: #### M AT21 ####[email or web address] LABCLIA [id number] [place] [address] PERFORMANCE CHARACTERISTICS Note [facility] Comment on above: Order Comment: Kevin matthews Type: BLOOD SPECIMENOrdering Facility: [facility] Address: [address] [place] [address] Result Comment: ! Sex ! Accuracy: 99.4% ! ! ! ! Region (associated syndrome) ! Est. Sens# ! Est. Spec ! ! ! ! Trisomy 21 (Down Syndrome) ! 99.1% ! 99.9% ! ! ! ! Trisomy 18 (Gallego Syndrome) ! >99.9% ! 99.6% ! ! ! ! Trisomy 13 ([place] Syndrome) ! 91.7% ! 99.7% ! ! ! ! Sex Chromosome Aneuploidies## ! 96.2% ! 99.7% ! ! ! * As reported in [facility] database nstd37 [https://www.ncbi.nlm.nih.gov/dbvar/studies/nstd37/ ] # Estimated Sensitivity. Sensitivity estimated across the observed size distribution of each syndrome [per ISCA database nstd37] and across the range of fractions observed in routine clinical NIPT. Actual sensitivity can also be influenced by other factors such as the size of the event, total sequence counts, amplification bias, or sequence bias. ## [place] gestation only. Performed By: #### M AT21 ####[employer]IA [id number] [place] [address] POSITIVE PREDICTIVE VALUE N/A [facility] Comment on above: Order Comment: Speci men Type: BLOOD SPECIMENOrdering Facility: [facility] Address: [address] [place] [address] Performed By: #### M AT21 ####[employer] LABCLIA [id number] [place] [address] Reference Lab Test Method Comment [facility] Comment on above: Order Comment: Speci men Type: BLOOD SPECIMENOrdering Facility: [facility] Address: [address] [place] [id number] Result Comment: See Notes Circulating cell-free DNA was purified from the plasma component of maternal blood. The extracted DNA was then converted into a genomic DNA library for aneuploidy analysis of chromosomes 21, 18, and 13 via next generation sequencing.[1] Optional findings based on the test order include sex chromosome aneuploidy (SCA)[2], and enhanced sequencing series (ESS)[3], which will only be reported on as an additional finding when an abnormality is detected. SCA testing includes information on X and Y representation, while ESS testing includes deletions in selected regions (22q, 15q, 11q, 8q, 5p, 4p, 1p) and trisomy of chromosomes 16 and 22. Performed By: #### M AT21 ####[employer]IA [id number] [place] [address] Sex Dosage of chromosome-specific cfDNA Nom (cfDNA) Comment [facility] Comment on above: Order Comment: Speci men Type: BLOOD SPECIMENOrdering Facility: [facility] Address: [address] [place] [address] Result Comment: Cons istent with Male Performed By: #### M AT21 ####[employer] LABBitbondIA [id number] [place] [address] Test performance information Bret (Unsp spec) Comment [facility] Comment on above: Order Comment: Speci men Type: BLOOD SPECIMENOrdering Facility: [facility] Address: [address] [place] [address] Result Comment: The performance characteristics of the MaterniT(R) 21 PLUS laboratory-developed test (LDT) have been determined in a clinical validation study with women at increased risk for chromosomal aneuploidy.[1-4] Performed By: #### M AT21 ####[employer] LABBitbondIA [id number] [place] [address] Trisomy 13 risk Dosage of chromosome-specific cfDNA Ql (cfDNA) [Interp] Negative [facility] Comment on above: Order Comment: Speci men Type: BLOOD SPECIMENOrdering Facility: [facility] Address: [address] [place] [address] Performed By: #### M AT21 ####[facility] LABCLIA [id number] [place] [address] Trisomy 18 risk Dosage of chromosome-specific cfDNA Ql (Plasma cell-free+WBC DNA) [Interp] Negative [facility] Comment on above: Order Comment: Speci men Type: BLOOD SPECIMENOrdering Facility: [facility] Address: [address] [place] [address] Performed By: #### M AT21 ####[facility] LABCLIA [id number] [place] [address] RBC PARAMETERS FOR HB IDon 0 11-28-2023 Erythrocyte distribution width (RBC) [Ratio] 12.4 % Normal 11.5-15.0 [facility] Comment on above: Order Comment: Speci men Type: BLOOD SPECIMENOrdering Facility: [facility] Address: [address] [place] [address] Performed By: #### L [id number] ####[facility] LABCLIA [id number] [place] [address] [place] Hematocrit (Bld) [Volume fraction] 36.2 % Normal 36.0-46.0 [facility] Comment on above: Order Comment: Speci men Type: BLOOD SPECIMENOrdering Facility: [facility] Address: [address] [place] [address] Performed By: #### L [id number] ####[facility] LABCLIA [id number] [place] [address] [place] Hemoglobin (Bld) [Mass/Vol] 13.0 g/dL Normal 11.5-15.5 [facility] Comment on above: Order Comment: Speci men Type: BLOOD SPECIMENOrdering Facility: [facility] Address: [address] [place] [address] Performed By: #### L [id number] ####[facility] LABCLIA [id number] [place] [address] [place] MCH (RBC) [Entitic mass] 31.1 pg Normal 26.0-34.0 [facility] Comment on above: Order Comment: Speci men Type: BLOOD SPECIMENOrdering Facility: [facility] Address: [address] [place] [address] Performed By: #### L [id number] ####[facility] LABIA [id number] [place] [address] [place] MCHC (RBC) [Mass/Vol] 35.9 g/dL Normal 30.5-36.0 [facility] Comment on above: Order Comment: Speci men Type: BLOOD SPECIMENOrdering Facility: [facility] Address: [address] [place] [address] Performed By: #### L [id number] ####[facility] LABIA [id number] [place] [address] [place] MCV (RBC) [Entitic vol] 86.6 fL Normal 80.0-100.0 [facility] Comment on above: Order Comment: Speci men Type: BLOOD SPECIMENOrdering Facility: [facility] Address: [address] [place] [address] Performed By: #### L [id number] ####[facility] LABIA [id number] [place] [address] [place] RBC (Bld) [#/Vol] 4.18 10*6/uL Normal 3.90-5.20 [facility] Comment on above: Order Comment: Speci men Type: BLOOD SPECIMENOrdering Facility: [facility] Address: [address] [place] [address] Performed By: #### L [id number] ####[facility] LABIA [id number] [place] [address] [place] RUBELLA IGG ANTIBODYon 11-27 RUBELLA IGG AB, QUAL Negative Abnormal Positive [facility] Comment on above: Order Comment: Speci men Type: BLOOD SPECIMENOrdering Facility: [facility] Address: [address] [place] [address] Result Comment: The result suggests no history of Rubella vaccination or exposure to Rubella virus, however, some individuals with past history of Rubella vaccination may test negative using this test as immunity to Rubella virus wanes over time after vaccination. Please correlate with vaccination history if applicable. Performed By: #### R UBIGG ####[facility] LABIA [id number] [place] [address] [place] Reagin and Treponema pallidu m IgG and IgM [Interp]on 11-28-2023 T. pallidum IgG+IgM IA Ql (S) Non-Reactive Normal Nonreactive [facility] Comment on above: Order Comment: Speci men Type: BLOOD SPECIMENOrdering Facility: [facility] Address: [address] [place] [address] Performed By: #### 5 195-3, 60192-6, 98429-4 ####[facility] LABIA [id number] [place] [address] [place] Reagin+T pallidum IgG+IgM Se rPl-Impon 11-28-2023 Reagin and Treponema pallidum IgG and IgM [Interp] Cannot exclude recent Treponemal infection if specimen collected within 7-10 days after appearance of suspect lesions or 2-3 weeks after an exposure. Clinical correlation is required. [facility] Comment on above: Order Comment: Speci men Type: BLOOD SPECIMENOrdering Facility: [facility] Address: [address] [place] [address] Performed By: #### 5 195-3, 35436-4, 34440-0 ####[facility] LABIA [id number] [place] [id number] [place] TYPE + SCREEN PRENATALon ABO A [facility] Comment on above: Order Comment: Speci men Type: BLOOD SPECIMENOrdering Facility: [facility] Address: [address] [place] [address] Performed By: #### T SPN ####[facility] BANKCLIA [id number] [address] HISTORICAL AB SCR STATUS Negative [facility] Comment on above: Order Comment: Speci men Type: BLOOD SPECIMENOrdering Facility: [facility] Address: [address] [place] [address] Performed By: #### T SPN ####[facility] BLO[facility] BANKCLIA [id number] [address] [place] Rh Nom (Bld) Positive [facility] Comment on above: Order Comment: Speci men Type: BLOOD SPECIMENOrdering Facility: [facility] Address: [address] [place] [address] Performed By: #### T SPN ####[facility] BLOOD BANKCLIA [id number] [address] TYPE AND SCREEN EXPIRATION 12/01/2023 23:59 [facility] Comment on above: Order Comment: Speci men Type: BLOOD SPECIMENOrdering Facility: [facility] Address: [address] [place] [address] Performed By: #### T SPN ####[facility] BLOOD BANKCLIA [id number] [address] [place] Turner 11-18-2023 CLAUDIAN Telephone ([employer]) BEATRIS FLETCHER ([id number]) 3 F Date Time Provider Department 11/18/23 CRISTY NAIK During your visit today, we recorded the following information about you: Cristy Naik RN 11/18/2023 9:48 AM Signed 1st risk assessment form submitted November 18, 2023. TRUE Ochoa, RN OB Clinical Navigator [phone] Allergies As of Date: 11/18/2023 Noted Allergy Reaction LACTASE 06/26/2020 14 - Other: See Comments Date Reviewed: 11/14/2023 Reviewed by: Nora Haile LPN - Fully Assessed Reason for Visit: PRAF [4193] Cmt: Initial PRAF Primary Visit Diagnosis:Generalized anxiety disorder [F41.1] Other Visit Diagnoses:History of depression [Z86.59] Supervision of normal first teen in second trimester [Z34.02] Nausea and vomiting during [O21.9] Normal first with uncertain date of LMP, antepartum [Z34.00] Prescriptions as of 11/18/2023 - aspirin, enteric coated (ECOTRIN LOW STRENGTH) 81 mg EC tablet Take 1 tablet by mouth once daily. - Byyyqmuz-Df-Jkc-Fe-FA tab Take 1 tablet by mouth once daily. With folic acid and DHA as covered by insurance. - VIT 10-IRON FUM-FOLIC ORAL Take by mouth. - ondansetron orally disintegrating (ZOFRAN ODT) 4 mg disintegrating tablet EVERY 8 HOURS NEEDED as needed for Nausea Problem List As Of Date 11/18/2023 Noted Resolved Nocturnal enuresis [N39.44] 10/16/2010 02/22/2020 Seborrhea [L21.9] 06/05/2016 Chronic cough [R05.3] 06/10/2017 11/25/2019 Influenza vaccine refused [Z28.21] 06/10/2017 Flat foot [M21.40] 01/14/2019 Ganglion cyst of wrist, left [M67.432] 02/22/2020 Chronic pain of right knee [M25.561, G89.29] 02/22/2020 Nevus [D22.9] 02/22/2020 Patellar dislocation, left, subsequent encounte*02/04/2022 S/P orthopedic surgery, follow-up exam [Z09] 02/04/2022 S/P knee surgery [Z98.890] 08/19/2023 Generalized anxiety disorder [F41.1] 11/14/2023 History of depression [Z86.59] 11/14/2023 Supervision of normal first teen in s*11/14/2023 Nausea and vomiting during [O21.9] 11/17/2023 Normal first with uncertain date of L*11/17/2023 Encounter Status:Closed by CRISTY NAIK on 11/18/23 [facility] POC PULLMAN CONDUCTOR ULTRASOUNDon 11-17-19 Indication Viability; confirm cardiac activity Impression Single intrauterine gestational sac, CRL is appropriate for clinical dates, corresponding to RICK 06/11/24. FHR 174 bpm cardiac activity is not visualized Recommendations Follow up for NT scan if desired Method Transabdominal and transvaginal ultrasound examination [place] . Number of fetuses: 1 Dating LMP on: 08/21/2023 GA by LMP 12 w + 1 d RICK by LMP: 05/27/2024 Ultrasound examination on: 11/14/2023 GA by U/S based upon: CRL GA by U/S 10 w + 0 d RICK by U/S: 06/11/2024 Assigned: based on ultrasound (CRL), selected on 11/14/2023 Assigned GA 10 w + 0 d Assigned RICK: 06/11/2024 Biometry Standard FHR 174 bpm 67% Nicolaides CRL 31.6 mm 10w 0d 38% Hadlock Assessment Gestational sac: visualized Location: intrauterine Yolk sac: visualized Embryo: visualized CRL 31.6 mm 10w 0d 38% Hadlock Cardiac activity: present FHR 174 bpm 67% Nicolaides General Evaluation Cardiac activity present. FHR 174 bpm Performed By: Anitra Caldwell CNM Read By: Anitra Caldwell CNM MATERNAL MEDICINE [facility] BACTERIAL VAGINOSIS NAATon 0 11-15-2023 Interpretation and review of laboratory results Normal [facility] Lactobacillus crispatus+gasseri+j ensenii + Gardnerella vaginalis + Atopobium vaginae rRNA RUPESH+probe Ql (Vag fld) Negative Negative for bacterial vaginosis [facility] C. trachomatis+N. gonorrhoea e DNA RUPESH+probe Ql (Unsp spec)on 11-15-2023 C. trachomatis rRNA RUPESH+probe Ql (Unsp spec) Negative Negative for Chlamydia trachomatis by amplificaton [facility] Interpretation and review of laboratory results Normal [facility] N. gonorrhoeae rRNA RUPESH+probe Ql (Unsp spec) Negative Negative for Neisseria gonorrhoeae by amplification [facility] LESLIE/TRICHOMONAS NAATon 0 11-15-2023 C. glabrata RNA RUPESH+probe Ql (Vag fld) Negative Negative for Leslie glabrata [facility] Leslie sp DNA RUPESH+probe Ql (Vag fld) Negative Negative for Leslie species [facility] Interpretation and review of laboratory results Normal [facility] T. vaginalis DNA RUPESH+probe Ql (Unsp spec) Negative Negative for Trichomonas vaginalis by amplification [facility] BACTERIAL VAGINOSIS NAATon 0 11-14-2023 Lactobacillus crispatus+gasseri+j ensenii + Gardnerella vaginalis + Atopobium vaginae rRNA RUPESH+probe Ql (Vag fld) Negative Normal Negative for bacterial vaginosis [facility] Comment on above: Order Comment: Speci men Type: SWABOrdering Facility: [facility] Address: [address] [place] [address] Performed By: #### B VAMP, 52965-5 ####[facility] LABIA [id number] [place] [address] [place] C. trachomatis+N. gonorrhoea e DNA RUPESH+probe Ql (Unsp spec)on 11-14-2023 C. trachomatis rRNA RUPESH+probe Ql (Unsp spec) Negative Normal Negative for Chlamydia trachomatis by amplificaton [facility] Comment on above: Order Comment: Speci men Type: SWABOrdering Facility: [facility] Address: [address] [place] [address] Performed By: #### B VAMP, 78570-2 ####[facility] LABIA [id number] [place] [address] [place] N. gonorrhoeae rRNA RUPESH+probe Ql (Unsp spec) Negative Normal Negative for Neisseria gonorrhoeae by amplification [facility] Comment on above: Order Comment: Speci men Type: SWABOrdering Facility: [facility] Address: [address] [place] [address] Performed By: #### B VAMP, 53238-4 ####[facility] LABCLIA [id number] [place] [address] [place] LESLEI/TRICHOMONAS NAATon 0 11-14-2023 C. glabrata RNA RUPESH+probe Ql (Vag fld) Negative Normal Negative for Leslie glabrata [facility] Comment on above: Order Comment: Speci men Type: SWABOrdering Facility: [facility] Address: [address] [place] [address] Performed By: #### C VTV ####[facility] LABIA [id number] [place] [address] [place] Leslie sp DNA RUPESH+probe Ql (Vag fld) Negative Normal Negative for Leslie species [facility] Comment on above: Order Comment: Speci men Type: SWABOrdering Facility: [facility] Address: [address] [place] [address] Performed By: #### C VTV ####[facility] LABIA [id number] [address] [place] T. vaginalis DNA RUPESH+probe Ql (Unsp spec) Negative Normal Negative for Trichomonas vaginalis by amplification [facility] Comment on above: Order Comment: Speci men Type: SWABOrdering Facility: [facility] Address: [address] [place] [address] Performed By: #### C VTV ####[facility] LABIA [id number] [place] [address] [place] POC PULLMAN CONDUCTOR ULTRASOUNDon 11-14-19 Radiology Study observation (narrative) [facility] CNPLexi 11-13-2023 CNPN Telephone (OBGYWM) BEATRIS FLETCHER ([id number]) 3 F Date Time Provider Department 11/13/23 ANITRA CALDWELL During your visit today, we recorded the following information about you: Samra Fatima MA 11/13/2023 9:22 AM Signed Attempted to call patient to go over new ob intake questions. No answer; left voicemail. ANNABELLA Jalloh Teresa, ADRIEN 11/13/2023 10:46 AM Signed Called patient back and I will plan on completing OB intake questions at 1:00 today Brenda Chaidez RN 11/13/2023 1:06 PM Signed Attempted to call patient x2 with no answer. Left voicemail to return phone call Brenda Chaidez RN 11/13/2023 3:47 PM Signed Intake questions completed Allergies As of Date: 11/13/2023 Noted Allergy Reaction LACTASE 06/26/2020 14 - Other: See Comments Date Reviewed: 11/11/2023 Reviewed by: Vitor Brower OD - Fully Assessed Reason for Visit: Appointment [186] Prescriptions as of 11/13/2023 - VIT 10-IRON FUM-FOLIC ORAL Take by mouth. - ondansetron orally disintegrating (ZOFRAN ODT) 4 mg disintegrating tablet EVERY 8 HOURS NEEDED as needed for Nausea Problem List As Of Date 11/13/2023 Noted Resolved Nocturnal enuresis [N39.44] 10/16/2010 02/22/2020 Seborrhea [L21.9] 06/05/2016 Chronic cough [R05.3] 06/10/2017 11/25/2019 Influenza vaccine refused [Z28.21] 06/10/2017 Flat foot [M21.40] 01/14/2019 Ganglion cyst of wrist, left [M67.432] 02/22/2020 Chronic pain of right knee [M25.561, G89.29] 02/22/2020 Nevus [D22.9] 02/22/2020 Patellar dislocation, left, subsequent encounte*02/04/2022 S/P orthopedic surgery, follow-up exam [Z09] 02/04/2022 S/P knee surgery [Z98.890] 08/19/2023 Encounter Status:Closed by BRENDA CHAIDEZ on 11/13/23 [facility] CNPNon 11-11-2023 CNPN Telephone (OPHWOO) BEATRIS FLETCHER ([id number]) 3 F Date Time Provider Department 11/11/23 RENE JULIO OPHWOO During your visit today, we recorded the following information about you: Allergies As of Date: 11/11/2023 Noted Allergy Reaction LACTASE 06/26/2020 14 - Other: See Comments Date Reviewed: 11/11/2023 Reviewed by: Vitor Brower OD - Fully Assessed Prescriptions as of 11/13/2023 - ondansetron orally disintegrating (ZOFRAN ODT) 4 mg disintegrating tablet EVERY 8 HOURS NEEDED as needed for Nausea Problem List As Of Date 11/11/2023 Noted Resolved Nocturnal enuresis [N39.44] 10/16/2010 02/22/2020 Seborrhea [L21.9] 06/05/2016 Chronic cough [R05.3] 06/10/2017 11/25/2019 Influenza vaccine refused [Z28.21] 06/10/2017 Flat foot [M21.40] 01/14/2019 Ganglion cyst of wrist, left [M67.432] 02/22/2020 Chronic pain of right knee [M25.561, G89.29] 02/22/2020 Nevus [D22.9] 02/22/2020 Patellar dislocation, left, subsequent encounte*02/04/2022 S/P orthopedic surgery, follow-up exam [Z09] 02/04/2022 S/P knee surgery [Z98.890] 08/19/2023 Encounter Status:Closed by RENE JULIO on 11/11/23 [facility] CNOVon 11-05-2023 CNOV Office Visit (UCWSTR ) JESBEATRIS ([id number]) 3 F Date Time Provider Department 11/05/23 11:45 AM JOSEPH HSU [facility] During your visit today, we recorded the following information about you: Joseph Hsu APRN.CNP 11/05/2023 12:15 PM Signed Patient triaged at [facility]. Here today with continued vomiting, seen in [facility] last week/remedies attempted, now having dizziness. Is 9 weeks . I will refer to ER. In no apparent distress at time of triage. Allergies As of Date: 11/05/2023 (No Known Allergies) Date Reviewed: 10/25/2023 Reviewed by: Floyd Louise APRN.DIRECTOR CUSTOMER - Fully Assessed Primary Visit Diagnosis:Dizziness [R42] Other Visit Diagnosis:Nausea and vomiting, unspecified vomiting type [R11.2] Problem List As Of Date 11/05/2023 Noted Resolved Nocturnal enuresis [N39.44] 10/16/2010 02/22/2020 Seborrhea [L21.9] 06/05/2016 Chronic cough [R05.3] 06/10/2017 11/25/2019 Influenza vaccine refused [Z28.21] 06/10/2017 Flat foot [M21.40] 01/14/2019 Ganglion cyst of wrist, left [M67.432] 02/22/2020 Chronic pain of right knee [M25.561, G89.29] 02/22/2020 Nevus [D22.9] 02/22/2020 Patellar dislocation, left, subsequent encounte*02/04/2022 S/P orthopedic surgery, follow-up exam [Z09] 02/04/2022 S/P knee surgery [Z98.890] 08/19/2023 Encounter Status:Closed by JOSEPH HSU on 11/05/23 [facility] CNOVon 10-25-2023 CNOV Office Visit (UCWSTR ) BEATRIS FLETCHER ([id number]) 3 F Date Time Provider Department 10/25/23 12:45 PM FLOYD LOUISE [facility] During your visit today, we recorded the following information about you: Temperature Pulse Respiration Blood pressure 97.7 degrees 98/minute 16/minute 128/72 Weight 59.5 kg Floyd Louise APRN.DIRECTOR CUSTOMER 10/25/2023 1:20 PM Signed Subjective HPI Nontoxic-appearing 7-week female presents urgent care chief complaint nausea. Duration of symptoms last 2 to 3 days. Associated symptoms nausea. States nausea is worse in the morning. Has not been seen by CHILD CARE NURSE at this point. Has tried some OTC medications. They have not helped. Denies any abdominal pain vomiting vaginal discharge or fever body aches chills. Past medical history prescription medications allergies reviewed. .Patient presents with: Nausea: x 3 days, 7 weeks PAST MEDICAL HISTORY Diagnosis Date Ganglion cyst of wrist, left PAST SURGICAL HISTORY Procedure Laterality Date DENTAL SURGERY HX 2015 ORTHOPEDICS SURGERY HX WRIST Left cyst on left wrist ALLERGIES Patient has no known allergies. MEDICATIONS No prescriptions on file. FAMILY HISTORY Problem Relation Age of Onset No Known Problems Mother No Known Problems Father Heart Maternal Grandmother Hypertension Maternal Grandmother Diabetes Maternal Grandmother Hypertension Paternal Grandmother other (heart) Paternal Grandmother Stroke Paternal Grandfather Social History Tobacco Use Smoking status: Never Smokeless tobacco: Never Vaping Use Vaping Use: Never used Substance Use Topics Alcohol use: No Drug use: No BP 128/72 Pulse 98 Temp 36.5 ?C (97.7 ?F) Resp 16 Wt 59.5 kg (131 lb 2.8 oz) LMP 04/02/2023 (Approximate) SpO2 99% Review of Systems Constitutional: Negative for chills, fever and malaise/fatigue. HENT: Negative for congestion, ear discharge, ear pain, sinus pain and sore throat. Eyes: Negative for blurred vision, pain, discharge and redness. Respiratory: Negative for cough, hemoptysis, sputum production, shortness of breath, wheezing and stridor. Cardiovascular: Negative for chest pain. Gastrointestinal: Positive for nausea. Negative for abdominal pain, diarrhea and vomiting. Musculoskeletal: Negative for myalgias. Skin: Negative for itching and rash. Neurological: Negative for dizziness and headaches. Objective Physical Exam Constitutional: General: She is not in acute distress. Appearance: She is not diaphoretic. HENT: Head: Normocephalic. Jaw: No trismus, tenderness, swelling or pain on movement. Mouth/Throat: Mouth: Mucous membranes are moist. Pharynx: Oropharynx is clear. Uvula midline. No pharyngeal swelling, oropharyngeal exudate, posterior oropharyngeal erythema or uvula swelling. Eyes: Conjunctiva/sclera: Conjunctivae normal. [...] to person, place, and time. ASSESSMENT/PLAN: 1. Nausea - ICD9: 787.02, ICD10: R11.0 Diagnosed with nausea. No abdominal pain and vaginal discharge. No evidence of dehydration. Will be established with CHILD CARE NURSE at the end of today's visit. Recommended using vitamin B6 25 mg 3 times a day. If that does not help with nausea she can add in Unisom 12.5 mg at bedtime. Patient was educated on supportive therapies. Patient [...] of care. This note was generated using [employer] software. It may contain errors in wording, punctuation, or spelling. Floyd Louise APRN.Floyd Sandoval APRN.CNP 10/25/2023 12:51 PM Signed Nausea and vomiting Doxylamine (Unisom Sleeptab) Vitamin B6 25mg three times per day (more content not included)... [facility] CNTHERAPYon 09-02-2023 CNTHERAPY OT/PT/Speech Visit (PTWS) BEATRIS FLETCHER ([id number]) 3 F Date Time Provider Department 09/02/23 2:00 PM RAYSA EPPERSON PTARIK Date Time Provider Department [facility] 09/02/2023 2:00 PM [id number], MARIAH PTARIK [place] Reason for Visit: Physical Therapy [503] Primary Visit Diagnosis:S/P knee surgery [Z98.890] Allergies As of Date: 09/02/2023 (No Known Allergies) Date Reviewed: 07/31/2023 Reviewed by: Yanelis Reyes MA - Fully Assessed Stock Room Manager: Therapy (PT/OT/Speech/Resp) ID: [id number] 09/02/2023 2:14 PM Author: RAYSA EPPERSON Signed by RAYSA EPPERSON BRUSH [employer] on 09/02/2023 at 2:14 PM Document text: Program_ID:[id number] Access Code: [email or web address] URL: [email or web address]/ Date: 09-02-2023 Prepared By: Zain Kearney Program Notes Exercises - Single Leg Bridge - 1 x daily - 7 x weekly - 4 sets - 10 reps - Supine Isometric Hamstring Set - 1 x daily - 7 x weekly - 4 sets - 10 reps - Squat - 1 x daily - 7 x weekly - 4 sets - 10 reps - Standing Hamstring Curl with Resistance - 1 x daily - 7 x weekly - 4 sets - 10 reps - Lateral Step Down - 1 x daily - 7 x weekly - 4 sets - 10 reps - Sidelying Hip Abduction - 1-2 x daily - 7 x weekly - 2 sets - 10 reps - Sidelying Bent Knee Hip Flexion - 1-2 x daily - 7 x weekly - 2 sets - 10 reps - Sidelying Hip Circles - 1-2 x daily - 7 x weekly - 2 sets - 10 reps ----- [facility] THERAPY NTon 09-02-2023 THERAPY NT HNO ID: [id number] Author: RAYSA EPPERSON PTA Service: ? Author Type: Cork Cutter Type: Therapy (PT/OT/Speech/Resp) Filed: 09/02/2023 14:14 Note Text: Program_ID:[id number] Access Code: [email or web address] URL: [email or web address]/ Date: 09-02-2023 Prepared By: Zain Kearney Program Notes Exercises - Single Leg Bridge - 1 x daily - 7 x weekly - 4 sets - 10 reps - Supine Isometric Hamstring Set - 1 x daily - 7 x weekly - 4 sets - 10 reps - Squat - 1 x daily - 7 x weekly - 4 sets - 10 reps - Standing Hamstring Curl with Resistance - 1 x daily - 7 x weekly - 4 sets - 10 reps - Lateral Step Down - 1 x daily - 7 x weekly - 4 sets - 10 reps - Sidelying Hip Abduction - 1-2 x daily - 7 x weekly - 2 sets - 10 reps - Sidelying Bent Knee Hip Flexion - 1-2 x daily - 7 x weekly - 2 sets - 10 reps - Sidelying Hip Circles - 1-2 x daily - 7 x weekly - 2 sets - 10 reps [facility] MR Knee - left WO contraston 08-29-2023 [facility] MRI KNEE WO IVCON LTon 08-28 MRI KNEE WO IVCON LT * * *Final Report* * * DATE OF EXAM: Aug 29 2023 10:17AM WRAlexa 0212 - MRI KNEE WO IVCON LT / PROCEDURE REASON: multiple diagnoses * * * * Physician Interpretation * * * * EXAMINATION: MRI LEFT KNEE WITHOUT CONTRAST CLINICAL HISTORY: Status post lateral femoral condyle chondroplasty, chondral loose body removal and open medial patellofemoral ligament reconstruction with allograft (01/18/2022). Continued tenderness in the medial patellar retinaculum and lateral patellar retinaculum. TECHNIQUE: Routine non-contrast MRI of the knee MQ: [id number] COMPARISON: 10/16/2021 MRI radiographs dated 07/31/2023 RESULT: Postoperative changes of medial patellofemoral ligament reconstruction. The reconstruction appears intact but thickened, increased in signal and laxity probably due to chronic degenerative changes. MENISCI: Medial Meniscus: Intact. Lateral Meniscus: Intact. LIGAMENTS: ACL: Intact PCL: Intact MCL: Intact LCL Complex: Intact CARTILAGE: Medial Femoral Condyle: Normal Medial Tibial Plateau: Normal Lateral Femoral Condyle: Small area(s) of full thickness cartilage loss and or fissuring anteriorly near the junction with the trochlea with minimal subchondral marrow reactive/cystic changes, compatible with history of an osteochondral lesion and postsurgical changes. Lateral Tibial Plateau: Normal Patella: Normal Trochlea: Normal TENDONS: The distal quadriceps and patellar tendons are intact. The popliteus tendon is intact. BONES AND MARROW: No evidence of fracture. 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 MUSCLES: Muscle bulk and signal intensity are normal. JOINT FLUID AND SYNOVIUM: No joint effusion. No synovitis. No Catherine's cyst. There is a joint body in the anterior lateral aspect of the knee adjacent to the anterior horn lateral meniscus (5:26 and 7:21) measuring 13 mm in long axis. This was noted on the prior examination as well but has slightly increased in size. The second intra-articular body in the suprapatellar recess noted on the prior exam is no longer seen compatible with prior surgical removal. OTHER: No other significant abnormality identified. Localizer images: No additional findings. IMPRESSION: 1. POSTOPERATIVE CHANGES OF MEDIAL PATELLAR RETINACULAR RECONSTRUCTION WITH INTACT GRAFT WITH MILD THICKENING, INCREASED SIGNAL AND LAXITY LIKELY DUE TO CHRONIC ADAPTIVE CHANGES. 2. INTRA-ARTICULAR BODY IN THE ANTERIOR LATERAL ASPECT OF THE KNEE AGAIN NOTED, INCREASED IN SIZE FROM PRIOR EXAM 3. INTERVAL REMOVAL OF SUPRAPATELLAR INTRA-ARTICULAR BODY. Stereoplotter Operator: CHAPARRITA Transcribe Date/Time: Aug 29 2023 10:28A Dictated by : SIMAEL PARRISH MD This examination was interpreted and the report reviewed and electronically signed by: ISMAEL PARRISH MD on Aug 29 2023 10:44AM EST [id number] [facility] CNOVon 08-27-2023 CNOV Office Visit (WSTR ) BEATRIS FLETCHER ([id number]) 3 F Date Time Provider Department 08/27/23 4:30 PM ZHANNA HAZEL [facility] During your visit today, we recorded the following information about you: Temperature Pulse Respiration Blood pressure 98.3 degrees 92/minute 18/minute 106/64 Weight 60.6 kg Zhanna Hazel APRN.DIRECTOR CUSTOMER 08/27/2023 4:54 PM Signed Subjective Patient came in with complaints of nausea and vomiting. Patient says it only happened 1 time. Patient says has been a vegetarian for a long time and had some turkey this morning. Patient says she thinks it just upset her stomach. Patient denies any other symptoms at this time. Patient says she is feeling better just a little bit queasy. The history is provided by the patient. No language assistant was used. Review of Systems Constitutional: Negative. Skin: Negative. Objective Physical Exam Constitutional: Appearance: Normal appearance. Pulmonary: Effort: Pulmonary effort is normal. Abdominal: General: Abdomen is flat. Palpations: Abdomen is soft. Tenderness: There is no abdominal tenderness. Neurological: Mental Status: She is alert. PAST MEDICAL HISTORY Diagnosis Date Ganglion cyst of wrist, left PAST SURGICAL HISTORY Procedure Laterality Date DENTAL SURGERY HX 2015 ORTHOPEDICS SURGERY HX WRIST Left cyst on left wrist ALLERGIES Patient has no known allergies. MEDICATIONS No prescriptions on file. FAMILY HISTORY Problem Relation Age of Onset No Known Problems Mother No Known Problems Father Heart Maternal Grandmother Hypertension Maternal Grandmother Diabetes Maternal Grandmother Hypertension Paternal Grandmother other (heart) Paternal Grandmother Stroke Paternal Grandfather Social History Tobacco Use Smoking status: Never Smokeless tobacco: Never Vaping Use Vaping Use: Never used Substance Use Topics Alcohol use: No Drug use: No ASSESSMENT/PLAN: 1. Nausea - ICD9: 787.02, ICD10: R11.0 Patient will follow-up with signs and symptoms persist. Patient was okay with this care plan. Zhanna Hazel APRN.DIRECTOR CUSTOMER Allergies As of Date: 08/27/2023 (No Known Allergies) Date Reviewed: 07/31/2023 Reviewed by: Yanelis Reyes MA - Fully Assessed Reason for Visit: stomachache [Other] Cmt: X 1 day Primary Visit Diagnosis:Nausea [R11.0] Problem List As Of Date 08/27/2023 Noted Resolved Nocturnal enuresis [N39.44] 10/16/2010 02/22/2020 Seborrhea [L21.9] 06/05/2016 Chronic cough [R05.3] 06/10/2017 11/25/2019 Influenza vaccine refused [Z28.21] 06/10/2017 Flat foot [M21.40] 01/14/2019 Ganglion cyst of wrist, left [M67.432] 02/22/2020 Chronic pain of right knee [M25.561, G89.29] 02/22/2020 Nevus [D22.9] 02/22/2020 Patellar dislocation, left, subsequent encounte*02/04/2022 S/P orthopedic surgery, follow-up exam [Z09] 02/04/2022 S/P knee surgery [Z98.890] 08/19/2023 Letter Text Encounter Status:Closed by ZHANNA HAZEL on 08/27/23 [facility] CNTHERAPYon 08-26-2023 CNTHERAPY OT/PT/Speech Visit (PTWS) BEATRIS FLETCHER ([id number]) 3 F Date Time Provider Department 08/26/23 2:15 PM ZAIN KEARNEY PTWS Date Time Provider Department [facility] 08/26/2023 2:15 PM [id number], COREY PTWS Gisela De Leon Reason for Visit: Physical Therapy [503] Primary Visit Diagnosis:S/P knee surgery [Z98.890] Allergies As of Date: 08/26/2023 (No Known Allergies) Date Reviewed: 07/31/2023 Reviewed by: Yanelis Reyes MA - Fully Assessed Stock Room Manager: Addendum Therapy (PT/OT/Speech/Resp) ID: [id number] 08/26/2023 2:51 PM Author: ZAIN KEARNEY Signed by ZAIN KEARNEY PT on 08/26/2023 at 2:51 PM * * * This document replaces document [id number] * * * Document text: Program_ID:[id number] Access Code: [email or web address] URL: [email or web address]/ Date: 08-26-2023 Prepared By: Zain Kearney Program Notes Exercises - Single Leg Bridge - 1 x daily - 7 x weekly - 4 sets - 10 reps - Supine Isometric Hamstring Set - 1 x daily - 7 x weekly - 4 sets - 10 reps - Squat - 1 x daily - 7 x weekly - 4 sets - 10 reps - Standing Hamstring Curl with Resistance - 1 x daily - 7 x weekly - 4 sets - 10 reps - Lateral Step Down - 1 x daily - 7 x weekly - 4 sets - 10 reps ----- [facility] THERAPY NTon 08-26-2023 THERAPY NT HNO ID: [id number] Author: ZAIN KEARNEY, PT Service: ? Author Type: Physical Therapist Type: Therapy (PT/OT/Speech/Resp) Filed: 08/26/2023 14:50 Note Text: Program_ID:[id number] Access Code: [email or web address] URL: [email or web address]/ Date: 08-26-2023 Prepared By: Zain Kearney Program Notes Exercises - Single Leg Bridge - 1 x daily - 7 x weekly - 4 sets - 10 reps - Supine Isometric Hamstring Set - 1 x daily - 7 x weekly - 4 sets - 10 reps - Squat - 1 x daily - 7 x weekly - 4 sets - 10 reps - Standing Hamstring Curl with Resistance - 1 x daily - 7 x weekly - 4 sets - 10 reps [facility] CNTHERAPYon 08-19-2023 CNTHERAPY OT/PT/Speech Visit (PTWS) BEATRIS FLETCHER ([id number]) 3 F Date Time Provider Department 08/19/23 10:15 AM ZAIN KEARNEY PTWS Date Time Provider Department [facility] 08/19/2023 10:15 AM [id number], COREY PTWS Sherman Jonas Reason for Visit: PT Joseeal [747] Visit Diagnosis:S/P knee surgery [Z98.890] Allergies As of Date: 08/19/2023 (No Known Allergies) Date Reviewed: 07/31/2023 Reviewed by: Yanelis Reyes MA - Fully Assessed Stock Room Manager: Therapy (PT/OT/Speech/Resp) ID: [id number] 08/19/2023 10:52 AM Author: ZAIN KEARNEY Signed by ZAIN KEARNEY PT on 08/19/2023 at 10:52 AM Document text: Program_ID:[id number] Access Code: [email or web address] URL: [email or web address] Date: 08-19-2023 Prepared By: Zain Kearney Program Notes Exercises - Single Leg Bridge - 1 x daily - 7 x weekly - 4 sets - 10 reps - Supine Isometric Hamstring Set - 1 x daily - 7 x weekly - 4 sets - 10 reps ----- Letter Text [facility] THERAPY NTon 08-19-2023 THERAPY NT HNO ID: [id number] Author: ZAIN KEARNEY, PT Service: ? Author Type: Physical Therapist Type: Therapy (PT/OT/Speech/Resp) Filed: 08/19/2023 10:52 Note Text: Program_ID:[id number] Access Code: [email or web address] URL: [email or web address] Date: 08-19-2023 Prepared By: Zain Kearney Program Notes Exercises - Single Leg Bridge - 1 x daily - 7 x weekly - 4 sets - 10 reps - Supine Isometric Hamstring Set - 1 x daily - 7 x weekly - 4 sets - 10 reps [facility] CNOVon 07-31-2023 CNOV Office Visit (ORTHWS ) BEATRIS FLETCHER ([id number]) 3 F Date Time Provider Department 07/31/23 2:15 PM MAYDA SOLARES During your visit today, we recorded the following information about you: Mayda Solares DO 08/01/2023 2:33 PM Signed Follow Up Visit Chief Complaint Beatris Fletcher is a 17 year old female who presents today for follow up office visit. Patient presents with: Left Knee - Established Patient, Pain History of Present Illness PAIN EVALUATION 07/31/2023 1433 Pain Level: 8 Pain Location: Knee-Left Description: Sharp;Shooting Duration Amount of Time: 5 Duration Units: Months Frequency: Intermittent Intervention/Comfort measure: Massage;Other: See comment stretch HPI: Beatris Fletcher is a 17 year old female for a follow up visit Left knee pain. She is s/p left knee arthroscopy, lateral femoral condyle chondroplasty, loose body removal, open mpfl reconstruction with allograft Pain history is noted as above. Is there any overall improvement in your condition? No Any new injury, since being seen last: [...] of consciousness or full loss of consciousness. No current outpatient medications on file. No current facility-administered medications for this visit. Physical Exam Vitals: [facility] 04/02/2023 Psych: Pleasant, good affect and mood General [...] rest Rheumatologic: Joint deformities: left knee pain Right Knee Exam Right knee exam is normal. Muscle Strength The patient has normal right knee strength. Tenderness The patient is experiencing no tenderness. Range of Motion Extension: normal Flexion: normal Tests Savanna: Anterior - negative Posterior - negative Drawer: Anterior - negative Posterior - negative Other Erythema: absent Sensation: normal Pulse: present Swelling: none Left Knee Exam Tenderness The patient is experiencing tenderness in the medial retinaculum and lateral retinaculum. Range of Motion Extension: normal Flexion: normal Tests Savanna: Anterior - negative Posterior - negative Drawer: Anterior - negative Posterior - negative Other Erythema: absent Sensation: normal Pulse: present Swelling: none Comments: Neg homans bilaterally Last XR Knee - Impression Only XR KNEE GENERAL 4V AP BOTH/PA BOTH/LAT/MERC LEFT Exam End: 07/31/2023 2:31 PM (Final result) Impression: IMPRESSION: 1.6 cm presumably chronic loose osseous body in the anterolateral aspect of the knee joint space, with a small knee joint effusion. Stereoplotter Operator: CHAPARRITA Transcribe Date/Time: Jul 31 2023 2:39P ... Assessment and Plan Radiographs: I have independently reviewed films and my findings are the same. and I have reviewed the images with the patient and family. Impression: Encounter Diagnosis ICD-10-CM 1. S/P knee surgery Z98.890 CONSULT TO PHYSICAL THERAPY Today, in detail, through a thorough evaluation, we discussed possible etiologies of pain and our plans for further diagnostic and therapeutic interventions. We discussed strategies for decreasing pain and improving strength, stability and motion. Patient's questions were answered in detailed. Patient verbalizes understanding and agrees with the treatment plan as discussed. Consult PT Brace as needed If not better in 6 weeks, MRI of left knee Gave injection option as well MRI of left knee to eval loose body Patient aware and in agreement of plan. All questions answered. Mayda Danielle.O. M.P.H. Allergies As of Date: 07/31/2023 (No Known Allergies) Date Reviewed: 07/31/2023 Reviewed by: Yanelis Reyes MA - Fully Assessed Reason for Visit: Established Patient [175] Pain [78] Primary Visit Diagnosis:S/P knee surgery [Z98.890] Other Visit Diagnosis:Loose body in knee, left knee [M23.42] Order(s) (more content not included)... [facility] XR KNEE 4V AP/PA BOTH+LAT/ME R LTon 07-31-2023 XR KNEE 4V AP/PA BOTH+LAT/REBA LT * * *Final Report* * * DATE OF EXAM: Jul 31 2023 2:31PM WRX [id number] - XR KNEE 4V AP/PA BOTH+LAT/REBA LT / PROCEDURE REASON: multiple diagnoses * * * * Physician Interpretation * * * * EXAMINATION: XR KNEE 4V AP/PA BOTH+LAT/REBA LT HISTORY: 3 years ago tore the meniscus and had surg. and about 6 months ago started bothering her medial side, feels like a pinched nerve. no inj Chronic pain of left knee Chronic pain of left knee . TECHNIQUE: XR KNEE 4V AP/PA BOTH+LAT/REBA LT Laterality: LEFT Number of different views (projections): 4 M: XB_1 COMPARISON: 10/16/2021 MRI. 09/26/2021 radiographs. RESULT: Approximately 1.6 cm corticated osseous body projects over the anterolateral aspect of the tibiofemoral space. Small knee joint effusion with edema of Hoffa fat pad. IMPRESSION: 1.6 cm presumably chronic loose osseous body in the anterolateral aspect of the knee joint space, with a small knee joint effusion. Stereoplotter Operator: CHAPARRITA Transcribe Date/Time: Jul 31 2023 2:39P Dictated by : DIANA DENNEY MD This examination was interpreted and the report reviewed and electronically signed by: DIANA DENNEY MD on Jul 31 2023 2:43PM EST [id number] [facility] XR Knee - left 4 Viewson [facility] ED NOTEon 04-18-2023 ED NOTE HNO ID: [id number] Author: Michael Gomez RN Service: Emergency Medicine Author Type: Registered Nurse Type: ED Notes Filed: 04/23/2023 5:36 AM Note Text: Chart accessed for audit purposes on 04/23/23. [facility] ED NOTE HNO ID: [id number] Author: Shelby Leach RN Service: Emergency Medicine Author Type: Registered Nurse Type: ED Notes Filed: 04/18/2023 7:36 AM Note Text: Patient is alert and oriented, denies any questions/concerns at this time. Patient verbalizes understanding of d/c instructions, medications and follow up care. Patient ambulates from department at this time. [facility] ED PROV NOTEon 04-18-2023 ED PROV NOTE HNO ID: [id number] Author: Fred Lopez MD Service: Emergency Medicine Author Type: Physician Type: ED Provider Notes Filed: 04/18/2023 8:20 AM Note Text: ED Provider Note Patient Name: Beatris Fletcher : 2005 SERVICE DATE: 04/18/23 History Patient presents with: Sore Throat Congested Beatris Fletcher is a 17 year old female with history of no chronic medical illness who presents with generalized sore throat pain. - Patient was exposed to no known ill contacts. Patient is able to swallow liquids. - Symptoms began 1 days prior to arrival. Onset was gradual and symptoms are constant. - Severity: mild - Timing: constant - Symptoms are exacerbated by drinking and swallowing. - Symptoms are not exacerbated by breathing. - Symptoms are associated with voice change. Patient is hoarse also congested - Symptoms are not associated with difficulty breathing. - Improved by nothing. - Not improved by rest Patient states that she is very congested this morning sore throat generalized malaise. She is not COVID or flu vaccinated. No recent travel or known exposure.. PAST MEDICAL HISTORY Diagnosis Date - Ganglion cyst of wrist, left PAST SURGICAL HISTORY Procedure Laterality Date - DENTAL SURGERY HX 2015 - ORTHOPEDICS SURGERY HX - WRIST Left cyst on left wrist FAMILY HISTORY Problem Relation Age of Onset - No Known Problems Mother - No Known Problems Father - Heart Maternal Grandmother - Hypertension Maternal Grandmother - Diabetes Maternal Grandmother - Hypertension Paternal Grandmother - other (heart) Paternal Grandmother - Stroke Paternal Grandfather Social History Tobacco Use - Smoking status: Never - Smokeless tobacco: Never Vaping Use - Vaping Use: Never used Substance and Sexual Activity - Alcohol use: No - Drug use: No - Sexual activity: Never ALLERGIES No Known Allergies Review of Systems Constitutional: Negative for chills and fever. HENT: Positive for congestion, sinus pressure and sore throat. Respiratory: Negative for cough and shortness of breath. Gastrointestinal: Negative for nausea and vomiting. Allergic/Immunologic: Negative for environmental allergies, food allergies and immunocompromised state. Physical Exam Vitals [04/18/23 0619] BP Pulse Temp Temp src Resp SpO2 Weight Height 120/76 87 36.6 ?C (97.8 ?F) Temporal Art 18 100 % 62.6 kg (137 lb 14.4 oz) 1.626 m (5' 4 ) Physical Exam Vitals and nursing note reviewed. Constitutional: General: She is not in acute distress. Appearance: She is well-developed. She is not ill-appearing. HENT: Head: Normocephalic and atraumatic. Right Ear: Tympanic membrane normal. Left Ear: Tympanic membrane normal. Nose: Congestion present. No rhinorrhea. Mouth/Throat: Mouth: Mucous membranes are moist. No oral lesions. Pharynx: No pharyngeal swelling, oropharyngeal exudate, posterior oropharyngeal erythema or uvula swelling. Eyes: Conjunctiva/sclera: Conjunctivae normal. Cardiovascular: Rate and Rhythm: Normal rate and regular rhythm. Pulmonary: Effort: Pulmonary effort is normal. No respiratory distress. Breath sounds: Normal breath sounds. Musculoskeletal: Cervical back: Normal range of motion and neck supple. Skin: General: Skin is warm and dry. Capillary Refill: Capillary refill takes less than 2 seconds. Neurological: General: No focal deficit present. Mental Status: She is alert and oriented to person, place, and time. Psychiatric: Mood and Affect: Mood normal. Behavior: Behavior normal. Diagnostic Testing ED Labs Ordered and Reviewed - No data to display Procedures ED Course / Clinical Impression ED Course as of 04/18/23 0820 Others' Documentation FriApr 18, 2023 0731 ED Continuation of Care Note This patient was endorsed to me by Dr. Lopez pending swabs. Swabs returned demonstrating no abnormalities. On reevaluation, patient subha stable with normal vitals. Likely viral upper respiratory infection. Previous provider had sent steroids and antibiotics to patient's pharmacy and patient was updated on this and provided work note. Patient discharged from the Emergency Department. I do not feel that the patient's evaluation reveals any acute reason for admission at this time. I instructed them to either follow up with their primary care physician or promptly return to the Emergency Department for reevaluation should symptoms worsen or new symptoms develop. I explained what symptoms would indicate the need to return to the Emergency Department. Shared decision making was used. The patient voiced understanding of the treatment plan and is agreeable with it. Nba Valentino DO [CS] ED Course User Index [CS] Nba Valentino DO Clinical Impressions as of 04/18/23 0820 Upper respiratory tract infection, unspecified type MDM / Disposition / Plan Patient had a sudden onset of symptoms yesterday loss of (more content not included)... [facility] FLUABV+SARS-CoV-2+RSV Pnl Re sp RUPESH+probeon 04-18-2023 FLUABV+SARS-CoV-2+R SV Pnl Resp RUPESH+probe COVID 19 RESULT: Not detected The method used is RT-PCR or an equivalent NAAT method. Reference Range(the expected result in uninfected individuals): Not detected INFLUENZA A PCR: Not detected INFLUENZA B PCR: Not detected RSV PCR: Not detected [facility] Comment on above: Performed By: #### 9 [id number] #### [facility] CLIA [id number] [address] [place] [address] [place] S pyo DNA Throat Ql RUPESH+prob jose martin 04-18-2023 S. pyogenes DNA RUPESH+probe Ql (Throat) Not detected Normal Not detected [facility] Comment on above: Order Comment: Speci men Type: SWAB Ordering Facility: [facility] Address: [address] [place] [address] Performed By: #### 6 [id number] #### [facility] CLIA [id number] [address] [place] [address] [facility] CNOVon 04-02-2023 CNOV Office Visit (UCWSTR ) BEATRIS FLETCHER ([id number]) 3 F Date Time Provider Department 04/02/23 2:30 PM JOHN SMITH [facility] During your visit today, we recorded the following information about you: Temperature Pulse Respiration Blood pressure 97.5 degrees 96/minute 21/minute 120/74 Weight 63.4 kg John Smith MD 04/02/2023 2:54 PM Signed Patient presents with: Sore Throat: Congestion, low [...] lethargy; in the ER if severe. John Smith MD Allergies As of Date: 04/02/2023 (No Known Allergies) Date Reviewed: 04/02/2023 Reviewed by: Jacqui Wong MA - Fully Assessed Reason for Visit: Sore Throat [200] Cmt: Congestion, low grade fever x 1 day Primary Visit Diagnosis:Sore throat [J02.9] Order(s):STREP A MOLECULAR (POC) [[id number]] Order #: [id number]. #:[id number] Problem List As Of Date 04/02/2023 Noted Resolved Nocturnal enuresis [N39.44] 10/16/2010 02/22/2020 Seborrhea [L21.9] 06/05/2016 Chronic cough [R05.3] 06/10/2017 11/25/2019 Influenza vaccine refused [Z28.21] 06/10/2017 Flat foot [M21.40] 01/14/2019 Ganglion cyst of wrist, left [M67.432] 02/22/2020 Chronic pain of right knee [M25.561, G89.29] 02/22/2020 Nevus [D22.9] 02/22/2020 Patellar dislocation, left, subsequent encounte*02/04/2022 S/P orthopedic surgery, follow-up exam [Z09] 02/04/2022 Medications Discontinued During This Encounter Prescriptions - predniSONE (DELTASONE) 10 mg tablet (Discontinued) Reported on 04/02/2023 - LIDOCAINE VISCOUS 2 % solution (Discontinued) Take 5-10 mL by mouth three times daily as needed. - ketoconazole (NIZORAL) 2 % shampoo (Discontinued) Reported on 01/22/2023 Letter Text Encounter Status:Closed by JOHN SMITH on 04/02/23 [facility] STREP A MOLECULAR (POC)on Procedural Control Valid [facility] Strep A (POCT) Negative Negative [facility] No Panel Informationon 02-18 Radiology Study observation (narrative) [facility] XR Ankle - right AP and Late ral and obliqueon 02-18-2023 IMPRESSION: No fracture. Stereoplotter Operator: CHAPARRITA Transcribe Date/Time: Feb 18 2023 12:08P Dictated by : JULIETH MELARA MD This examination was interpreted and the report reviewed and electronically signed by: JULIETH MELARA MD on Feb 18 2023 12:11PM [facility] [place] DIVISION OF RADIOLOGY * * *Final Report* * * DATE OF EXAM: Feb 18 2023 12:10PM WOX [id number] - XR ANKLE 3V AP/LAT/OBL RT / PROCEDURE REASON: Pain * * * * Physician Interpretation * * * * TECHNIQUE: XR ANKLE 3V AP/LAT/OBL RT HISTORY: Pain COMPARISON: None RESULT: The ankle mortise and joint spaces are normal. Normal bone alignment. No evidence of fracture. No tibiotalar joint effusion. No soft tissue swelling. DIVISION OF RADIOLOGY Provider, [facility] - 02/18/2023 * * *Final Report* * * DATE OF EXAM: Feb 18 2023 12:10PM WOX 5297 - XR ANKLE 3V AP/LAT/OBL RT / PROCEDURE REASON: Pain * * * * Physician Interpretation * * * * TECHNIQUE: XR ANKLE 3V AP/LAT/OBL RT HISTORY: Pain COMPARISON: None RESULT: The ankle mortise and joint spaces are normal. Normal bone alignment. No evidence of fracture. No tibiotalar joint effusion. No soft tissue swelling. IMPRESSION IMPRESSION: No fracture. Stereoplotter Operator: PSCB Transcribe Date/Time: Feb 18 2023 12:08P Dictated by : JULIETH MELARA MD This examination was interpreted and the report reviewed and electronically signed by: JULIETH MELARA MD on Feb 18 2023 12:11PM EST [facility] XR Ankle - right AP and Late ral and obliqueOrdered By: [facility] Provider on 02-18-2023 [facility] XR Foot - right AP and Later al and obliqueon 02-18-2023 IMPRESSION: No acute osseous abnormality Stereoplotter Operator: PSCB Transcribe Date/Time: Feb 18 2023 12:22P Dictated by : FRED MCKENNA MD This examination was interpreted and the report reviewed and electronically signed by: FRED MCKENNA MD on Feb 18 2023 12:25PM [facility] [place] DIVISION OF RADIOLOGY * * *Final Report* * * DATE OF EXAM: Feb 18 2023 12:20PM WOX [id number] - XR FOOT 3V AP/LAT/OBL RT / PROCEDURE REASON: Pain * * * * Physician Interpretation * * * * EXAMINATION: XR FOOT 3V AP/LAT/OBL RT CLINICAL HISTORY: Right foot pain Technique: XR FOOT 3V AP/LAT/OBL RT -- RIGHT with 3 views on 3 images Comparison: None RESULT: No acute fracture or dislocation. Joint spaces are maintained. Accessory ossicle adjacent to the navicular bone. DIVISION OF RADIOLOGY Provider, [facility] - 02/18/2023 * * *Final Report* * * DATE OF EXAM: Feb 18 2023 12:20PM WOX [id number] - XR FOOT 3V AP/LAT/OBL RT / PROCEDURE REASON: Pain * * * * Physician Interpretation * * * * EXAMINATION: XR FOOT 3V AP/LAT/OBL RT CLINICAL HISTORY: Right foot pain Technique: XR FOOT 3V AP/LAT/OBL RT -- RIGHT with 3 views on 3 images Comparison: None RESULT: No acute fracture or dislocation. Joint spaces are maintained. Accessory ossicle adjacent to the navicular bone. IMPRESSION IMPRESSION: No acute osseous abnormality Stereoplotter Operator: PSCB Transcribe Date/Time: Feb 18 2023 12:22P Dictated by : FRED MCKENNA MD This examination was interpreted and the report reviewed and electronically signed by: FRED MCKENNA MD on Feb 18 2023 12:25PM EST [facility] XR Foot - right AP and Later al and obliqueOrdered By: [facility] Provider on 02-18-2023 [facility] STREP A MOLECULAR (POC)on Procedural Control Valid [facility] Strep A (POCT) Negative Negative [facility] MRI KNEE WO IVCON LTon 10-16 [facility] ALLIED HEALTHon 09-26-2021 ALLIED HEALTH HNO ID: [id number] Author: RT Xiomara(R) Service: ? Author Type: French Folder Type: Allied Health Filed: 09/26/2021 12:17 PM Note Text: Radiology Service Progress Note PATIENT NAME: Beatris Fletcher DATE OF SERVICE: September 26, 2021 [...] RT Xiomara(R) September 26, 2021 12:16 PM [facility] XR KNEE 4V AP/PA BOTH+LAT/ME R LTon 09-26-2021 XR KNEE 4V AP/PA BOTH+LAT/REBA LT * * *Final Report* * * DATE OF EXAM: Sep 26 2021 12:16PM LUIS [id number] - XR KNEE 4V AP/PA BOTH+LAT/REBA LT / PROCEDURE REASON: multiple diagnoses * * * * Physician Interpretation * * * * TECHNIQUE: XR KNEE 4V AP/PA BOTH+LAT/REBA LT HISTORY: 16 years Female Chronic pain of left knee Chronic pain of left knee COMPARISON: Outside radiographs from 06/09/20 RESULT: There is osteochondral lesion of the lateral femoral condyle measures approximately 1.4 x 1.3 cm. There is 2 intra-articular displaced fragments in the lateral joint space measures 1.1 x 1 0.5 cm and in the patellofemoral compartment measures 0.9 x 0.5 cm. Trace suprapatellar effusion is present. IMPRESSION: Displaced fragmented osteochondral lesion of the lateral femoral condyle. Displaced fragments are seen in the lateral and patellofemoral compartments. Stereoplotter Operator: CHAPARRITA Transcribe Date/Time: Sep 26 2021 12:52P Dictated by : JULIETH MELARA MD This examination was interpreted and the report reviewed and electronically signed by: JULIETH MELARA MD on Sep 26 2021 12:56PM EST [id number] [facility] XR KNEE GENERAL 4V AP BOTH/P A BOTH/LAT/MERC LEFTon 09-26-2021 [facility] ANES Yumi 12-03-2019 ANES POST HNO ID: [id number] Author: Jocy Beatty Service: Anesthesiology Author Type: Anesthesiologist Type: Anesthesia PostOp Filed: 12/03/2019 5:58 PM Note Text: POST ANESTHESIA EVALUATION NOTE SERVICE DATE: 12/03/2019 SERVICE TIME: 5:58 PM : 2004 Vitals: 12/03/19 0659 12/03/19 0838 Temp: 36.6 ?C (97.8 ?F) 36.4 ?C (97.5 ?F) 12/03/19 0838 12/03/19 0845 12/03/19 0900 12/03/19 0930 BP: 99/52 100/55 100/56 101/64 12/03/19 0838 12/03/19 0845 12/03/19 0900 12/03/19 0930 Pulse: 71 62 72 75 12/03/19 0838 12/03/19 0845 12/03/19 0900 12/03/19 0930 Resp: 17 16 20 16 12/03/19 0725 12/03/19 0730 12/03/19 0838 12/03/19 0930 SpO2: 100% 100% 100% 96% Validated Vital Signs: Yes POST ANES STATUS: No apparent anesthetic complications. The patient is appropriately hydrated with stable respiratory and cardiovascular status. Patient has safe and adequate airway control. The patient has appropriate pain relief and no significant post operative nausea or vomiting. The patient has achieved baseline mental status. Intra-Operative Events: No Significant Anesthesia Events Further assessment by Anesthesia Service: None Other Remarks: SIGNATURE: Jocy Beatty MD PATIENT NAME: Beatris Fletcher DATE: December 03, 2019 TIME: 5:58 PM PAGER/CONTACT #: [facility] ANES PREOPon 12-03-2019 ANES PREOP HNO ID: [id number] Author: Jocy Beatty Service: Anesthesiology Author Type: Anesthesiologist Type: Anesthesia PreOp Filed: 12/03/2019 6:50 AM Note Text: ANESTHESIOLOGY DAY OF SURGERY NOTE SERVICE DATE: 12/03/2019 SERVICE TIME: 6:49 AM : 2004 Procedure(s) (LRB): EXCISION GANGLION WRIST (Left) Surgeon(s): Eb Domingo Estimated body mass index is 25.06 kg/m? as calculated from the following: Height as of 11/25/19: 162.6 cm (5' 4 ). Weight as of 11/25/19: 66.2 kg (146 lb). Most recent hematocrit and potassium results: No results found for this basename: HCT,HEMATOCRIT,K,POTA SSIUM ANES DOS/PREOP NOTE: Vitals: There were no vitals filed for this visit. ACTIVE PROBLEM LIST Flat Feet Nocturnal Enuresis Seborrhea Influenza Vaccine Refused Flat Foot Ganglion Cyst of Wrist, Left PAST MEDICAL HISTORY Diagnosis Date - Flat feet 10/16/2010 - Ganglion cyst of wrist, left - Immunization refused - Seborrhea 06/05/2016 PAST SURGICAL HISTORY Procedure Laterality Date - DENTAL SURGERY HX 2014 FAMILY HISTORY Problem Relation Age of Onset - No Known Problems Mother - No Known Problems Father - Heart Maternal Grandmother - Hypertension Maternal Grandmother - Diabetes Maternal Grandmother - Hypertension Paternal Grandmother - other (heart) Paternal Grandmother - Stroke Paternal Grandfather Social History: Social History Tobacco Use - Smoking status: Never Smoker - Smokeless tobacco: Never Used Substance Use Topics - Alcohol use: No - Drug use: No No current facility-administered medications on file prior to encounter. Current Outpatient Medications on File Prior to Encounter Medication Sig - triamcinolone (KENALOG) 0.025 % cream Apply a thin film 2-4 times per day. Discontinue when control is achieved. (Patient not taking: Reported on 11/08/2019 ) - ketoconazole (NIZORAL) 2 % shampoo Shampoo twice weekly (at least 3 days between each shampoo) for up to 8 weeks. Then use as needed. (Patient not taking: Reported on 11/25/2019 ) Current Facility-Administered Medications Medication Dose Route Frequency Provider Last Rate Last Dose - lidocaine 4 % topical cream (LMX) TOPICAL PRN Jennifer N (Pa-C) Diego - ceFAZolin iv piggyback 2 g in D5W (iso-osmotic) 100 mL (ANCEF) 2 g INTRAVENOUS Pre-Op Once Jennifer N (Andrés-C) Diego - lactated ringers infusion 5-30 mL/hr INTRAVENOUS CONTINUOUS Jennifer N (Pa-C) Diego - midazolam (PF) 2 mg injection (VERSED) 2 mg INTRAVENOUS Pre-Op Once Jocy Beatty - acetaminophen 1,000 mg tab(s) (TYLENOL) 1,000 mg ORAL Pre-Op Once Jocy White Allergies: ALLERGIES No Known Allergies DOS EXAM: Adequate NPO status: Yes Anesthetic risks, benefits, alternatives, personnel and consent discussed: Yes Patient agrees to proceed: Yes Previous Anesthesia: No history of adverse event. Airway Assessment: MP 1; Neck ROM: Full ROM without neurologic symptoms; Airway Evaluation: No significant abnormalities Symptoms of Sleep Apnea: None Dentition: Teeth intact, braces Additional Physical Exam: Lungs: Patient health status unchanged since recent history and physical. See history and physical for exam findings. Cardiac: Patient health status unchanged since recent history and physical. See history and physical for exam findings. Additional Pertinent Findings: N/A Blood Products: Not anticipated for this procedure. Anesthetic Plan: MAC with Sedation and Standard ASA Monitors Pain Management Plan: Parenteral or Oral and Peripheral Nerve Block ASA Class: 1 Other Medical Problems: None Chronic Beta Randy medication administered within 24 hours: N/A I have interviewed and examined the patient. I have reviewed the medical record and/or the pre-anesthesia evaluation, pertinent labs, and test results. Significant changes in the patient's condition since the History and Physical, not otherwise documented in primary service progress notes: No This contains updated information obtained within 48 hours of Surgery/Procedure. SIGNATURE: Jocy Beatty MD PATIENT NAME: Beatris Flethcer DATE: December 03, 2019 TIME: 6:49 AM CSN: [id number] [facility] OPERATIVE NOon 12-03-2019 OPERATIVE NO HNO ID: [id number] Author: Eb Domingo Service: Orthopaedic Surgery Author Type: Physician Type: Operative Report Filed: 12/03/2019 8:39 AM Note Text: ORTHOPAEDIC SURGERY OPERATIVE REPORT Patient Name: Beatris Fletcher Log ID: [id number] Surgery Date: 12/03/2019 Start Time: 7:50 AM Stop Time: 8:32 AM Pre-Op Diagnosis: Dorsal ganglion of left wrist Post-Op Diagnosis: Dorsal ganglion of left wrist Operation: Excision of dorsal ganglion from the LEFT wrist Anesthesia: Monitored Anesthesia Care Surgeon: Eb Domingo MD PhD Assistants: Erica Goode - Resident - Assisting Isela Cramer RN Estimated Blood Loss: 5 mL Tourniquet Time: 30 minutes Fluids: See anesthesia records UOP: Not monitored Implants: None Drain: None Specimen: LEFT wrist mass Final Pathology: Ganglion cyst Operative Indications: The patient is an 14 year old female with a history of a mass on the dorsum of her left wrist which has been present for the past 4 years. She has had pain with weight bearing through that wrist. After the risks, benefits, and alternatives were discussed, she opted for surgical excision of the mass. Risks, Benefits, and Alternatives The patient was counseled extensively regarding the options for treatment including operative and non-operative forms of treatment and after thorough counseling has elected to proceed with surgical treatment. The patient was counseled that with surgical treatment there is the possibility that their condition might not improve or may even worsen. No guarantees or warranties were provided regarding the outcome. Specific surgical risks discussed include recurrence, stiffness, infection, bleeding, post-operative pain, damage to nerves and blood vessels, wound dehiscence and wound healing problems, incomplete relief of pain, the need for physical/occupational therapy, inability to return to their desired level of function, complex regional pain syndrome, as well as medical complications such as anesthetic complications, cardiopulmonary complications and . The patient expressed understanding of all the issues described above and has elected to proceed with the aforementioned procedure. Operative Procedure: In the preoperative holding area, the appropriate surgical site was marked with the patient cognizant. An axillary block was performed by the anesthesiologist in the preop holding area. The patient was identified by the surgical team and a sign-in was performed with all of the pertinent surgical staff including myself, anesthesia and nursing. The patient was then brought to the operating room by the anesthesia team. The patient subsequently was transferred from their bed to the operating table and underwent MAC anesthesia. The patient was then positioned in the supine position and the arm table was attached to the operating room table. All bony prominences were well padded. The operative arm was appropriately identified and prepped. Once the hibiclens prep was completed, the operative extremity was draped in sterile fashion. A surgical time-out was performed. Preoperative antibiotics were verified to have been given within one hour of incision time, prior to incision. The arm was exsanguinated using an Esmarch proximal to the wrist and the tourniquet was then inflated to 200mmHg. A 2cm transverse incision was made in the skin overlying the mass. Blunt dissection allowed the circumscription of the cyst which was then removed. At the last part of excision, the cyst ruptured with clear, straw colored gelatinous fluid consistent with a ganglion cyst. Once the cyst was excised, there was a defect in the dorsal wrist ligaments so this was repaired using 3-0 vicryl. Prior to skin closure, the tourniquet was released and hemostasis was obtained by holding pressure and using bipolar cautery on any visible bleeding vessels. Once hemostasis was verified, closure commenced. The wound was closed with 4-0 monocryl. All counts, verified in 2 separate count episodes, were correct at the end of the case prior to completing skin closure. A sterile dressing comprised of Xeroform, 4x4s, and webril was then applied. The drapes were taken down and a volar short-arm splint was applied and then loosely wrapped with Coban to complete the dressing. The patient was then awoken from their anesthesia and transferred back to the hospital bed from the operating room table; she was then taken to the PACU in stable condition. Attestation of Participation: I performed the procedure with assistance. Plan: 1) Discharge home today 2) Keep dressing on until follow-up 3) Follow-up in 2 weeks for a wound check and initiation of ROM with JOEY Domingo MD, PhD Hand AND Upper Extremity Orthopaedic Staff Surgeon [facility] PT EDon 12-03-2019 PT ED HNO ID: [id number] Author: Lorraine Whitt) ADRIEN Albarado Service: Nursing Author Type: Registered Nurse Type: Patient Education Filed: 12/03/2019 10:03 AM Note Text: POST OP LEARNING RESPONSE INSTRUCTION PROVIDED TO: Patient and family member METHOD OF INSTRUCTION: Written instruction - handouts Verbal instruction PATIENT / FAMILY RESPONSE: Verbalizes understanding of: POST-OPERATIVE INSTRUCTIONS-Correct actions to take to reduce postoperative complications FOLLOW-UP PLAN: Patient instructed to call with any further issues SUPPLEMENTAL MATERIAL: None REFERRAL (RECOMMENDATION): None Electronically Signed By: Lorraine Albarado RN In Department: [facility] AMBULATORY SURGERY - [facility] SURGICAL PATHOLOGYon 020 SURGICAL PATHOLOGY Specimen #: [id number] Submitting Physician: EB DOMINGO FINAL DIAGNOSIS Soft tissue, left wrist, excision - Ganglion cyst. JJ/GHAZALA/que 12/07/2019 Fred Holley M.D. (Electronic Signature) ____ SPECIMEN SUBMITTED A: LEFT WRIST MASS CLINICAL DATA GANGLION OF LEFT WRIST, GANGLION CYST OF WRIST GROSS DESCRIPTION A. Received in formalin are two segments of velasco-yellow fibrous soft tissue aggregating to 2.7 x 1.0 x 0.3 cm. Entirely submitted in cassette A1. GABOB/slb 12/06/2019 Gross examination performed at [facility], [address] [place] [address] Date of Report: 12/08/2019 Date of Procedure: 12/03/2019 Date of Receipt: 12/03/2019 Submitted by: EB DOMINGO Location: [facility] Diagnostic interpretation performed at [facility], [address] [place] [address]. CLIA Number: [id number] [facility] HOSPon 11-16-2019 HOSP Patient:Beatris Fletcher MRN: Height:5' 4 [patient reported[(1.626 m) Weight:146 lb (66.225 kg) Outpatient Medications as of 12/03/19: traMADol (ULTRAM) 50 mg tablet triamcinolone (KENALOG) 0.025 % cream ketoconazole (NIZORAL) 2 % shampoo Admission/Clinic Administered Medications as of 12/03/19: lidocaine 4 % topical cream (LMX) ceFAZolin iv piggyback 2 g in D5W (iso-osmotic) 100 mL (ANCEF) lactated ringers infusion Problem List: Flat feet [M21.41, M21.42] Nocturnal enuresis [N39.44] Seborrhea [L21.9] Influenza vaccine refused [Z28.21] Flat foot [M21.40] Ganglion cyst of wrist, left [M67.432] Allergies: No Known Allergies Date Verified:12/03/19 Lab Values No results within the last 30 days for the following basenames: K,HCT Progress Notes (ORTH PEDS R): Eb Domingo MD PhD 11/08/2019 11:44 AM Signed November 08, 2019 CHIEF COMPLAINT: Left Wrist pain and mass HPI: Beatris Fletcher is a 13 year old D female returns to clinic with continued complaints of a left dorsal ganglion cyst. She was initially schedule to have it excised but it was cancelled due to COVID. She complains of pain and swelling in the dorsum of her left wrist. She notes that this mass has been present for about 4 years although the pain has continued to progress lately and is present with activity including push off, writing or using her hand for prolonged amount of time. She did well briefly with a wrist brace but found this to be irritating to the skin on the dorsum of her wrist. Denies any associated numbness, tingling, weakness or other associated symptoms. Occupation: Student PREVIOUS TREATMENTS: Splint ASSESSMENT: 14 year old female with left dorsal ganglion cyst M67.432 Ganglion cyst of dorsum of left wrist (primary encounter diagnosis) PLAN: We discussed the etiology and treatment of ganglion cysts. I explained the ganglion is a term for any fluid filled sac that comes off of either a tendon sheath or a joint. We noted ganglion cysts are not dangerous and therefore they can just be observed without causing any additional damage. However, in some patients the cyst causes pain due to impingement on the surrounding structures. The cyst can be removed, however, sometimes we then trade a bump for scar. The scar can also be painful at times and some patients are very unhappy with how it looks. The recurrence rate for ganglion cyst excision is somewhere between 15 and 20%. Wrist stiffness is common following surgical excision and may necessitate a course of hand therapy in the post-operative period. No guarantees or warranties were provided; she voiced understanding of the risks and benefits and wishes to proceed with our agreed upon plan for surgical excision of the cyst. Discussed given that symptoms continue to progress and are currently interfering with her daily life and ability to function- her and her mother would like to proceed with elective excision of the ganglion cyst. Discussed risks including recurrence of the cyst, infection, and damage to surrounding structures. Consent form was signed and they will schedule procedure at their convenience. OBJECTIVE: 11/08/19 0951 Weight: 66.3 kg (146 lb 2.6 oz) Height: 162.8 cm (5' 4.09 ) Body mass index is 25.02 kg/m?. General: NAD Eyes: Pupils not pinpointed, not overly dilated, anicteric Neck: Full range of motion Cardiovascular: Palpable pulse and brisk capillary refill (<2 sec) to all fingers Lymphatic: Inspection of the arm/hand reveals no lymphedema and palpation of epitrochlear nodes is unremarkable. Respiratory: Respirations even and unlabored, no audible wheezing Integumentary: Inspection of skin reveals no breaks or obvious lesions except for those noted below. Neuro: Intact sensation to light touch over the median, ulnar, and radial nerve distributions. Psychiatric: No obvious anxiety, well kempt, normal affect. Appropriate response to pain. Musculoskeletal: Mass/swelling over radial aspect of the dorsum of the rist. Transilluminates with light. TTP over the mass. Mobile and soft. Able to flex and extend all fingers at the DIP and PIP. Able to retropulse the thumb, abduct all fingers against resistance. IMAGING: No new imaging obtained Supporting Subjective Information Below: Past Medical History: PAST MEDICAL HISTORY Diagnosis Date - Flat feet 10/16/2010 - Immunization refused - Seborrhea 06/05/2016 Past Surgical History: PAST SURGICAL HISTORY Procedure Laterality Date - NONE Family History: FAMILY HISTORY Problem Relation Age of Onset - Heart Maternal Grandmother - Hypertension Maternal Grandmother - Diabetes Maternal Grandmother - Hypertension Paternal Grandmother - other (heart) Paternal Grandmother - Stroke Paternal Grandfather Medications: Current Outpatient Medications Medication Sig Dispense Refill - ketoconazole (NIZORAL) 2 % shampoo Shampoo twice weekly (at least 3 days between each shampoo) for up to 8 weeks. Then use as needed. 120 mL 5 - diphenhydramine HCl (BENADRYL ORAL) Take by mouth every 6 hours as needed. - triamcinolone (KENALOG) 0.025 % cream Apply a thin film 2-4 times per day. Discontinue when control is achieved. (Patient not taking: Reported on 11/08/2019 ) 80 g 0 - lidocaine viscous (LIDOCAINE VISCOUS) 2 % solution Gargle and spit 10-15mLs every 3-4 hours as need for throat discomfort. (Patient not taking: Reported on 07/15/2019 ) 120 mL 0 - guaiFENesin (MUCINEX) 600 mg 12 hr tablet Take 2 tablets by mouth twice daily. (Patient not taking: Reported on 11/08/2019 ) 30 tablet 0 - fluticasone (FLOVENT HFA) 110 mcg/actuation inhaler Inhale 2 Puffs as instructed twice daily. (Patient not taking: Reported on 01/14/2019 ) 1 Inhaler 5 - AMOXICILLIN ORAL Take by mouth. No current facility-administered medications for this visit. Allergies: ALLERGIES No Known Allergies ROS: General (negative for fatigue) HEENT (negative for headache, earache, recent vision changes, sinus pain, sore throat) Respiratory (no recent shortness of breath, hemoptysis) CV (negative for chest tightness, palpitations) GI (negative for change in bowel habits) Hematologic (no spontaneous bleeding, bruising) Endocrine (no heat or cold intolerance) Fady Steel MD ATTENDING NOTE: I personally performed a history and physical examination on Beatris Fletcher to verify the one performed by Fady Steel MD. I reviewed their findings, plan and note, and have made changes above as needed so that I agree with the documentation. I discussed the plan with the patient. Dorian Domingo MD, PhD Hand AND Upper Extremity Orthopaedic Staff Surgeon Previous Version [facility] Office Visit: UC: bronchitis , pharyngitison 03-20-2017 Documentation of current medications (procedure) Done Invalid Interpretation Code [facility] Work Phone: Fall risk assessment No Invalid Interpretation Code [facility] Work Phone: Tobacco smoking status NHIS Never Invalid Interpretation Code [facility] Work Phone: Tobacco use [facility] Never smoker Invalid Interpretation Code [facility] Work Phone: Office Visit: [facility]: jovani morejon ton 08-12-2016 Rapid strep test Positive Invalid Interpretation Code [facility] Work Phone: Vital Signs Date Time Vital Sign Value Performing Clinician Facility 02-25-2024 14:23-0400 Body mass index (BMI) [Ratio] 26.63 kg/m2 Leena Gaytan SERVER PROGRAMMER.CNM Work Phone: [facility] 02-25-2024 14:23-0400 Body weight 71.49 kg Leena Gaytan SERVER PROGRAMMER.CNM Work Phone: [facility] 02-25-2024 14:23-0400 Diastolic blood pressure 68 mm[Hg] Leena Gaytan SERVER PROGRAMMER.CNM Work Phone: [facility] 02-25-2024 14:23-0400 Systolic blood pressure 110 mm[Hg] Leena Gaytan SERVER PROGRAMMER.CNM Work Phone: [facility] 01-23-2024 10:42-0400 Body mass index (BMI) [Ratio] 24.67 kg/m2 Anitra Caldwell APRN.CNM Work Phone: [facility] 01-23-2024 10:42-0400 Body weight 66.22 kg Anitra Caldwell APRN.CNM Work Phone: [facility] 01-23-2024 10:42-0400 Diastolic blood pressure 64 mm[Hg] Anitra Caldwell APRN.CNM Work Phone: [facility] 01-23-2024 10:42-0400 Systolic blood pressure 114 mm[Hg] Anitra Caldwell APRN.CNM Work Phone: [facility] 12-23-2023 10:21-0400 Body mass index (BMI) [Ratio] 23.66 kg/m2 Anitra Caldwell SERVER PROGRAMMER.CNM Work Phone: [facility] 12-23-2023 10:21-0400 Body weight 63.5 kg Anitra Caldwell SERVER PROGRAMMER.CNM Work Phone: [facility] 12-23-2023 10:21-0400 Diastolic blood pressure 68 mm[Hg] Anitra Caldwell SERVER PROGRAMMER.CNM Work Phone: [facility] 12-23-2023 10:21-0400 Systolic blood pressure 100 mm[Hg] Anitra Caldwell SERVER PROGRAMMER.CNM Work Phone: [facility] 12-12-2023 14:50-0400 Body mass index (BMI) [Ratio] 23.1 kg/m2 Joseph Hsu SERVER PROGRAMMER.DIRECTOR CUSTOMER Work Phone: [facility] 12-12-2023 14:50-0400 Body temperature 98.01 [degF] Joseph Hsu SERVER PROGRAMMER.DIRECTOR CUSTOMER Work Phone: [facility] 12-12-2023 14:50-0400 Body weight 62 kg Joseph Hsu SERVER PROGRAMMER.DIRECTOR CUSTOMER Work Phone: [facility] 12-12-2023 14:50-0400 Diastolic blood pressure 77 mm[Hg] Joseph Hsu SERVER PROGRAMMER.DIRECTOR CUSTOMER Work Phone: [facility] 12-12-2023 14:50-0400 Heart rate 102 /min Joseph Hsu SERVER PROGRAMMER.DIRECTOR CUSTOMER Work Phone: [facility] 12-12-2023 14:50-0400 Respiratory rate 18 /min Joseph Hsu SERVER PROGRAMMER.DIRECTOR CUSTOMER Work Phone: [facility] 12-12-2023 14:50-0400 SaO2% (BldA) [Mass fraction] 99 % Joseph Hsu SERVER PROGRAMMER.DIRECTOR CUSTOMER Work Phone: [facility] 12-12-2023 14:50-0400 Systolic blood pressure 116 mm[Hg] Joseph Hsu SERVER PROGRAMMER.DIRECTOR CUSTOMER Work Phone: [facility] 11-28-2023 14:18-0400 Body mass index (BMI) [Ratio] 22.71 kg/m2 Anitra Caldwell SERVER PROGRAMMER.CNM Work Phone: [facility] 11-28-2023 14:18-0400 Body weight 60.96 kg Anitra Caldwell SERVER PROGRAMMER.CNM Work Phone: [facility] 11-28-2023 14:18-0400 Diastolic blood pressure 58 mm[Hg] Anitra Caldwell SERVER PROGRAMMER.CNM Work Phone: [facility] 11-28-2023 14:18-0400 Systolic blood pressure 98 mm[Hg] Anitra Caldwell SERVER PROGRAMMER.CNM Work Phone: [facility] 11-14-2023 13:06-0400 Body height 163.8 cm Anitra Caldwell SERVER PROGRAMMER.CNM Work Phone: [facility] 11-14-2023 13:06-0400 Body mass index (BMI) [Ratio] 22.81 kg/m2 Anitra Caldwell SERVER PROGRAMMER.CNM Work Phone: [facility] 11-14-2023 13:06-0400 Body weight 61.24 kg Anitra Caldwell SERVER PROGRAMMER.CNM Work Phone: [facility] 11-14-2023 13:06-0400 Diastolic blood pressure 60 mm[Hg] Anitra Caldwell SERVER PROGRAMMER.CNM Work Phone: [facility] 11-14-2023 13:06-0400 Systolic blood pressure 98 mm[Hg] Anitra Caldwell SERVER PROGRAMMER.CNM Work Phone: [facility] 10-25-2023 12:43-0400 Body temperature 97.7 [degF] Floyd Louise SERVER PROGRAMMER.DIRECTOR CUSTOMER Work Phone: [facility] 10-25-2023 12:43-0400 Body weight 59.5 kg Floyd Louise SERVER PROGRAMMER.DIRECTOR CUSTOMER Work Phone: [facility] 10-25-2023 12:43-0400 Diastolic blood pressure 72 mm[Hg] Floyd Louise SERVER PROGRAMMER.DIRECTOR CUSTOMER Work Phone: [facility] 10-25-2023 12:43-0400 Heart rate 98 /min Floyd Louise SERVER PROGRAMMER.DIRECTOR CUSTOMER Work Phone: [facility] 10-25-2023 12:43-0400 Respiratory rate 16 /min Floyd Louise SERVER PROGRAMMER.DIRECTOR CUSTOMER Work Phone: [facility] 10-25-2023 12:43-0400 SaO2% (BldA) [Mass fraction] 99 % Floyd Louise SERVER PROGRAMMER.DIRECTOR CUSTOMER Work Phone: [facility] 10-25-2023 12:43-0400 Systolic blood pressure 128 mm[Hg] Floyd Louise SERVER PROGRAMMER.DIRECTOR CUSTOMER Work Phone: [facility] 08-27-2023 16:32-0400 Body temperature 98.29 [degF] Zhanna Hazel SERVER PROGRAMMER.DIRECTOR CUSTOMER Work Phone: [facility] 08-27-2023 16:32-0400 Body weight 60.6 kg Zhanna Hazel APRN.DIRECTOR CUSTOMER Work Phone: [facility] 08-27-2023 16:32-0400 Diastolic blood pressure 64 mm[Hg] Zhanna Hazel SERVER PROGRAMMER.DIRECTOR CUSTOMER Work Phone: [facility] 08-27-2023 16:32-0400 Heart rate 92 /min Zhanna Hazel SERVER PROGRAMMER.DIRECTOR CUSTOMER Work Phone: [facility] 08-27-2023 16:32-0400 Respiratory rate 18 /min Zhanna Hazel SERVER PROGRAMMER.DIRECTOR CUSTOMER Work Phone: [facility] 08-27-2023 16:32-0400 SaO2% (BldA) [Mass fraction] 97 % Zhanna Hazel SERVER PROGRAMMER.DIRECTOR CUSTOMER Work Phone: [facility] 08-27-2023 16:32-0400 Systolic blood pressure 106 mm[Hg] Zhanna Hazel SERVER PROGRAMMER.DIRECTOR CUSTOMER Work Phone: [facility] 04-02-2023 14:35-0500 Body temperature 97.5 [degF] John Smith MD Work Phone: [facility] 04-02-2023 14:35-0500 Body weight 63.41 kg John Smith MD Work Phone: [facility] 04-02-2023 14:35-0500 Diastolic blood pressure 74 mm[Hg] John Smith MD Work Phone: [facility] 04-02-2023 14:35-0500 Heart rate 96 /min John Smith MD Work Phone: [facility] 04-02-2023 14:35-0500 Respiratory rate 21 /min John Smith MD Work Phone: [facility] 04-02-2023 14:35-0500 SaO2% (BldA) [Mass fraction] 100 % John Smith MD Work Phone: [facility] 04-02-2023 14:35-0500 Systolic blood pressure 120 mm[Hg] John Smith MD Work Phone: [facility] 01-22-2023 18:15-0400 Body temperature 98.29 [degF] Floyd Louise SERVER PROGRAMMER.DIRECTOR CUSTOMER Work Phone: [facility] 01-22-2023 18:15-0400 Body weight 63.41 kg Floyd Louise SERVER PROGRAMMER.DIRECTOR CUSTOMER Work Phone: [facility] 01-22-2023 18:15-0400 Diastolic blood pressure 80 mm[Hg] Floyd Pendlephyllis SERVER PROGRAMMER.DIRECTOR CUSTOMER Work Phone: [facility] 01-22-2023 18:15-0400 Heart rate 71 /min Floyd Pendlephyllis SERVER PROGRAMMER.DIRECTOR CUSTOMER Work Phone: [facility] 01-22-2023 18:15-0400 Respiratory rate 18 /min Floyd Pendlebury SERVER PROGRAMMER.DIRECTOR CUSTOMER Work Phone: [facility] 09-06-2023 18:15-0400 SaO2% (BldA) [Mass fraction] 97 % Floyd Pendlebury SERVER PROGRAMMER.DIRECTOR CUSTOMER Work Phone: [facility] 01-22-2023 18:15-0400 Systolic blood pressure 110 mm[Hg] Floyd Pendlebury SERVER PROGRAMMER.DIRECTOR CUSTOMER Work Phone: [facility] 11-21-2022 13:30-0400 Body temperature 98.71 [degF] Floyd Pendlebury SERVER PROGRAMMER.DIRECTOR CUSTOMER Work Phone: [facility] 11-21-2022 13:30-0400 Body weight 61.78 kg Floyd Pendlebury SERVER PROGRAMMER.DIRECTOR CUSTOMER Work Phone: [facility] 11-21-2022 13:30-0400 Diastolic blood pressure 62 mm[Hg] Floyd Pendlebury SERVER PROGRAMMER.DIRECTOR CUSTOMER Work Phone: [facility] 11-21-2022 13:30-0400 Heart rate 89 /min Floyd Pendlebury SERVER PROGRAMMER.DIRECTOR CUSTOMER Work Phone: [facility] 11-21-2022 13:30-0400 Respiratory rate 18 /min Floyd Pendlebury SERVER PROGRAMMER.DIRECTOR CUSTOMER Work Phone: [facility] 11-21-2022 13:30-0400 SaO2% (BldA) [Mass fraction] 98 % Floyd Pendlebury SERVER PROGRAMMER.DIRECTOR CUSTOMER Work Phone: [facility] 11-21-2022 13:30-0400 Systolic blood pressure 110 mm[Hg] Floyd Pendlebury SERVER PROGRAMMER.DIRECTOR CUSTOMER Work Phone: [facility] 04-08-2022 17:25-0500 Body temperature 98.8 [degF] Zhanna Hazel SERVER PROGRAMMER.DIRECTOR CUSTOMER Work Phone: [facility] 04-08-2022 17:25-0500 Body weight 62.41 kg Zhanna Hazel SERVER PROGRAMMER.DIRECTOR CUSTOMER Work Phone: [facility] 04-08-2022 17:25-0500 Diastolic blood pressure 76 mm[Hg] Zhanna Hazel SERVER PROGRAMMER.DIRECTOR CUSTOMER Work Phone: [facility] 04-08-2022 17:25-0500 Heart rate 94 /min Zhanna Hazel APRN.DIRECTOR CUSTOMER Work Phone: [facility] 04-08-2022 17:25-0500 Respiratory rate 18 /min Zhanna Hazel APRN.DIRECTOR CUSTOMER Work Phone: [facility] 04-08-2022 17:25-0500 SaO2% (BldA) [Mass fraction] 99 % Zhanna Hazel APRN.DIRECTOR CUSTOMER Work Phone: [facility] 04-08-2022 17:25-0500 Systolic blood pressure 122 mm[Hg] Zhanna Hazel APRN.DIRECTOR CUSTOMER Work Phone: [facility] 01-01-2022 13:38-0400 Body height 160 cm Pacc 2 Work Phone: [facility] 01-01-2022 13:38-0400 Body mass index (BMI) [Percentile] Per age and sex 89.08 % Pacc 2 Work Phone: [facility] 01-01-2022 13:38-0400 Body weight 68.04 kg Pacc 2 Work Phone: [facility] 01-01-2022 13:38-0400 Respiratory rate 16 /min Pacc 2 Work Phone: [facility] 03-20-2017 12:49-0400 BMI (Body Mass Index) 19.08 kg/m2 Javi WEAVER [facility] Work Phone: 03-20-2017 12:49-0400 Body Temperature 98.8 [degF] Javi WEAVER [facility] Work Phone: 03-20-2017 12:49-0400 BP Diastolic 72 mm[Hg] Javi WEAVER [facility] Work Phone: 03-20-2017 12:49-0400 BP Systolic 108 mm[Hg] Javi WEAVER [facility] Work Phone: 03-20-2017 12:49-0400 Height 154.94 cm Javi WEAVER [facility] Work Phone: 03-20-2017 12:49-0400 Pulse (Heart Rate) 97 /min Javi WEAVER [facility] Work Phone: 03-20-2017 12:49-0400 Respiratory Rate 14 /min Javi Julianne WEAVER [facility] Work Phone: 03-20-2017 12:49-0400 Weight 45.81 kg Javiimelda WEAVER [facility] Work Phone: Encounters Encounter Date Encounter Type Care Provider Facility Start: 02-25-2024 End: 02-25-2024 Patient encounter procedure Leena Gaytan APRN.CNM Work Phone: OB/Gynecology Comment on above: 24 weeks gestation o f (Primary Dx); Supervision of normal first teen in second trimester; Generalized anxiety disorder; Rubella non-immune status, antepartum; History of depression; Encounter for care in first trimester of first ; Heartburn during in second trimester Start: 02-25-2024 End: 02-25-2024 ambulatory LEENA GAYTAN Facility:[facility] Start: 02-25-2024 End: 02-26-2024 Telephone encounter eLena Gaytan APRN.CNM Work Phone: OB/Gynecology Comment on above: Centering Start: 02-12-2024 End: 02-12-2024 Refill Anitra Caldwell APRN.CNM Work Phone: OB/Gynecology Comment on above: Refill Request Start: 01-26-2024 End: 01-27-2024 Telephone encounter Amelia Armstrong RN Maternal [facility] in[facility] Comment on above: Soft Drink Powder Mixer - O ther (PRAF) ULTRASOUND Start: 01-23-2024 End: 01-23-2024 ambulatory ANITRA CALDWELL Facility:[facility] Start: 01-23-2024 End: 01-23-2024 Patient encounter procedure Anitra Caldwell APRN.CNM Work Phone: OB/Gynecology Comment on above: Supervision of dixie l first teen in second trimester (Primary Dx); Nausea and vomiting during ; History of depression; Rubella non-immune status, antepartum; Generalized anxiety disorder; 20 weeks gestation of ; Back pain in Encounter for anatomic survey (Primary Dx); 20 weeks gestation of Start: 01-21-2024 End: 01-21-2024 ambulatory Anitra Caldwell APRN.CNM Work Phone: OB/Gynecology Comment on above: Centering Pre[facility]ancy [facility] Start: 01-21-2024 End: 01-21-2024 E-mail encounter from caregiver Anitradrake Caldwell APRN.CNAlexa Work Phone: OB/Gynecology Start: 12-23-2023 End: 12-23-2023 ambulatory ANITRA CALDWELL Facility:[facility] Start: 12-23-2023 End: 12-23-2023 Patient encounter procedure Anitra Caldwell SERVER PROGRAMMER.CNM Work Phone: OB/Gynecology Comment on above: Supervision of dixie austni teen in second trimester (Primary Dx); 15 weeks gestation of ; Nausea and vomiting during ; Generalized anxiety disorder; History of depression; Rubella non-immune status, antepartum Start: 12-12-2023 End: 12-12-2023 ambulatory ANITRA CALDWELL Facility:[facility] Start: 12-12-2023 End: 12-12-2023 Patient encounter procedure Joseph Hsu APRN.CNP Work Phone: [facility] Comment on above: Nausea (Primary Dx) Start: 12-09-2023 Telephone encounter Anitra sigala SERVER PROGRAMMER.CNM Work Phone: OB/Gynecology Comment on above: Nausea & Vomiting Start: 12-05-2023 Telephone encounter Anitra Co sta SERVER PROGRAMMER.CNM Work Phone: OB/Gynecology Start: 11-28-2023 End: 11-28-2023 ambulatory ANITRA CALDWELL Facility:[facility] Start: 11-28-2023 Telephone encounter Anitra Co sta SERVER PROGRAMMER.CNM Work Phone: OB/Gynecology Start: 11-28-2023 End: 11-28-2023 Patient encounter procedure [employer]eral Car [employer] Gisela Ultrasound Work Phone: OB/Gynecology Comment on above: Encounter for trisha sidhu screening for malformation using ultrasound (Primary Dx); 12 weeks gestation of Supervision of dixie bernard first teen in second trimester (Primary Dx); Nausea and vomiting during ; Normal first with uncertain date of LMP, antepartum; Generalized anxiety disorder; History of depression; 12 weeks gestation of Start: 11-28-2023 End: 11-28-2023 ambulatory ANITRADRAKE CALDWELL Facility:[facility] Start: 11-18-2023 Telephone encounter Cristy Naik RN Obstetrics/Gynecology Comment on above: PRAF (Initial PRAF) Start: 11-14-2023 End: 11-14-2023 [facility] ANITRA BARNSDALL Facility:[facility] Start: 11-14-2023 End: 11-14-2023 Patient encounter procedure Anitra Caldwell APRN.CNM Work Phone: OB/Gynecology Comment on above: with uncer tain dates, antepartum (Primary Dx); Encounter for care in first trimester of first ; Generalized anxiety disorder; History of depression; Supervision of normal first teen in second trimester; Acute vaginitis; Nausea and vomiting during ; Normal first with uncertain date of LMP, antepartum Start: 11-13-2023 Telephone encounter Anitra sigala APRN.CNM Work Phone: OB/Gynecology Comment on above: Appointment Start: 11-11-2023 Telephone encounter Rene Julio OA Ophthalmology Start: 11-11-2023 End: 11-11-2023 ambulatory VITOR BROWER Facility:[facility] Start: 11-11-2023 End: 11-11-2023 Patient encounter procedure Vitor Brower OD Work Phone: Ophthalmology Comment on above: Myopia, bilateral (P rimary Dx) Start: 11-05-2023 End: 11-05-2023 ambulatory ANITRA CALDWELL Facility:[facility] Start: 11-05-2023 End: 11-05-2023 Patient encounter procedure Joseph Hsu APRN.DIRECTOR CUSTOMER Work Phone: [facility] Comment on above: Dizziness (Primary D x); Nausea and vomiting, unspecified vomiting type Start: 10-25-2023 End: 10-25-2023 ambulatory [facility] Facility:[facility] Start: 10-25-2023 End: 10-25-2023 Office outpatient visit 15 minutes Floyd Louise APRN.DIRECTOR CUSTOMER Work Phone: [facility] Comment on above: Nausea (Primary Dx) Start: 09-02-2023 End: 09-02-2023 Admission to same day surgery center Raysa Epperson BRUSH HAND Work Phone: [facility] Comment on above: S/P knee surgery (Pr imary Dx) Start: 09-02-2023 End: 09-02-2023 ambulatory Raysa Karpaulo BRUSH HAND Work Phone: [facility] Start: 08-29-2023 End: 08-29-2023 ambulatory MAYDA SOLARES Facility:[facility] Start: 08-29-2023 End: 08-29-2023 Subsequent hospital visit by physician Mri Radio [facility] Wstr (I-Stat/1.5t) Work Phone: Radiology Comment on above: S/P knee surgery [Z9 8.890] Start: 08-27-2023 End: 08-27-2023 ambulatory [facility] Facility:[facility] Start: 08-27-2023 End: 08-27-2023 Patient encounter procedure Zhanna Hazel APRN.DIRECTOR CUSTOMER Work Phone: [facility] Comment on above: Nausea (Primary Dx) Start: 08-26-2023 End: 08-26-2023 Admission to same day surgery center Zain Kearney PT Work Phone: [facility] Comment on above: S/P knee surgery (Pr imary Dx) Start: 08-26-2023 End: 08-26-2023 ambulatory Zain Kearney PT Work Phone: [facility] Start: 08-19-2023 End: 08-19-2023 Admission to same day surgery center Zain Kearney PT Work Phone: [facility] Comment on above: S/P knee surgery Start: 08-19-2023 End: 08-19-2023 ambulatory Zain Kearney PT Work Phone: [facility] Start: 07-31-2023 End: 07-31-2023 ambulatory MAYDA SHAIKH LEILACHLOE Facility:[facility] Start: 07-31-2023 End: 07-31-2023 Patient encounter procedure Mayda Solares DO Work Phone: Orthopaedics Comment on above: S/P knee surgery (Pr imary Dx); Loose body in knee, left knee Start: 07-31-2023 End: 07-31-2023 Subsequent hospital visit by physician Xr [facility] Gisela Mob Work Phone: Radiology Comment on above: Chronic pain of left knee [M25.562, G89.29] Start: 07-24-2023 Orders Only Mayda Shaikh Sujatha DO Work Phone: Orthopaedics Comment on above: Chronic pain of left knee (Primary Dx) Start: 04-18-2023 Emergency department patient visit Facility:[facility] Start: 04-02-2023 End: 04-02-2023 ambulatory ANITRA CALDWELL Facility:[facility] Start: 04-02-2023 End: 04-02-2023 Patient encounter procedure John Smith MD Work Phone: [facility] Comment on above: Sore throat (Primary Dx) Start: 02-18-2023 End: 02-18-2023 Subsequent hospital visit by physician Xr [facility] Work Phone: Radiology Comment on above: Pain [R52] Start: 01-22-2023 End: 01-22-2023 Office outpatient visit 25 minutes Floyd Louise APRN.DIRECTOR CUSTOMER Work Phone: [facility] Comment on above: Rash (Primary Dx) Start: 11-21-2022 End: 11-21-2022 Office outpatient visit 15 minutes Floyd Louise APRN.DIRECTOR CUSTOMER Work Phone: [facility] Comment on above: Sore throat (Primary Dx); URI, acute Start: 08-02-2022 End: 08-02-2022 Patient encounter procedure Vitor Brower OD Work Phone: Ophthalmology Comment on above: Myopia, bilateral (P rimary Dx) Start: 04-08-2022 End: 04-08-2022 Patient encounter procedure Zhanna Hazel ESAU.DIRECTOR CUSTOMER Work Phone: [facility] Comment on above: Cat bite, initial en counter (Primary Dx) Start: 03-14-2022 End: 03-14-2022 Patient encounter procedure Mayda Solares DO Work Phone: Orthopaedics Comment on above: S/P knee surgery (Pr imary Dx) Start: 03-06-2022 End: 03-06-2022 ambulatory June Lemon PT [facility] Start: 03-06-2022 End: 03-06-2022 Follow-up encounter June Lemon PT [facility] Comment on above: Patellar dislocation , left, subsequent encounter (Primary Dx); S/P orthopedic surgery, follow-up exam Start: 02-27-2022 End: 02-27-2022 ambulatory June Lemon PT [facility] Start: 02-27-2022 End: 02-27-2022 Follow-up encounter June Lemon PT [facility] Comment on above: Patellar dislocation , left, subsequent encounter (Primary Dx); S/P orthopedic surgery, follow-up exam Start: 02-25-2022 End: 02-25-2022 ambulatory Raysa Karirineoba BRUSH HAND Work Phone: [facility] Start: 02-25-2022 End: 02-25-2022 Follow-up encounter Raysa Kasirineoba BRUSH HAND Work Phone: [facility] Comment on above: Patellar dislocation , left, subsequent encounter (Primary Dx); S/P orthopedic surgery, follow-up exam Start: 02-22-2022 End: 02-22-2022 ambulatory June Lemon PT [facility] Start: 02-22-2022 End: 02-22-2022 Follow-up encounter June Lemon PT [facility] Comment on above: Patellar dislocation , left, subsequent encounter (Primary Dx); S/P orthopedic surgery, follow-up exam Start: 02-04-2022 End: 02-04-2022 ambulatory June Staton PT [facility] Start: 02-04-2022 End: 02-04-2022 Follow-up encounter June Staton PT [facility] Comment on above: Patellar dislocation , left, subsequent encounter (Primary Dx); S/P orthopedic surgery, follow-up exam Start: 02-01-2022 End: 02-01-2022 Patient encounter procedure BettyHawa Solares DO Work Phone: Orthopaedics Comment on above: S/P knee surgery (Pr imary Dx); Dislocation of left patella, subsequent encounter; Patellar instability of left knee Start: 01-23-2022 Telephone encounter BettyHawa Solares DO Work Phone: Orthopaedics Comment on above: Patient Question Start: 01-01-2022 End: 01-01-[facility] Start: 01-01-2022 End: 01-01-2022 ambulatory [facility] 2 Work Phone: Pre Anesthesia Comment on above: Pre-op evaluation (P rimary Dx); Dislocation of left patella, subsequent encounter Start: 01-01-2022 End: 01-01-2022 Preprocedural examination done Pac 2 Work Phone: Pre Anesthesia Start: 12-19-2021 Patient encounter status Manny Arteaga MD Work Phone: [facility] [place] Start: 12-19-2021 Telephone encounter Manny willson MD Work Phone: [facility] [place] Comment on above: Schedule Surgery Start: 12-10-2021 End: 12-10-2021 ambulatory Manny Arteaga MD Work Phone: [facility] Comment on above: Chronic pain of left knee (Primary Dx); Patellar instability of left knee; 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; Loose body in knee, left knee; Dislocation of left patella, subsequent encounter Start: 12-10-2021 End: 12-10-2021 Telemedicine consultation with patient Manny Arteaga MD Work Phone: [facility] Start: 12-06-2021 Telephone encounter Mayda Islasemerychloe DO Work Phone: Orthopaedics Comment on above: Patient Question Start: 11-07-2021 End: 11-07-2021 Patient encounter procedure Mayda Solares DO Work Phone: Orthopaedics Comment on above: Chronic pain of left knee (Primary Dx); Patellar instability of left knee; 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 Start: 10-23-2021 Telephone encounter Mayda Islasmarco DO Work Phone: Orthopaedics Comment on above: Appointment Start: 10-19-2021 End: 10-19-2021 ambulatory Mayda Islasmarco DO Work Phone: Orthopaedics Comment on above: Chronic pain of left knee (Primary Dx); 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; Patellar instability of left knee Start: 10-19-2021 End: 10-19-2021 Telemedicine consultation with patient Mayda Solares DO Work Phone: [facility] Start: 10-16-2021 End: 10-16-2021 Subsequent hospital visit by physician Mri Radio [facility] Wstr (I-Stat/1.5t) Work Phone: Radiology Comment on above: Chronic pain of left knee [M25.562, G89.29] Start: 09-27-2021 Telephone encounter Mayda Islasmarco DO Work Phone: Orthopaedics Comment on above: DEE galindo Start: 09-26-2021 End: 09-26-2021 Patient encounter procedure Mayda Islasmarco DO Work Phone: Orthopaedics Comment on above: Chronic pain of left knee (Primary Dx); 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 Start: 09-26-2021 End: 09-26-2021 Subsequent hospital visit by physician Radio [facility] Jewell Martinez Work Phone: Radiology Comment on above: Chronic pain of left knee [M25.562, G89.29] Procedures Date Procedure Procedure Detail Performing Clinician Start: 01-23-2024 Us preg uterus after 1st trimest 1/ gestation Anitra Javi CIFUENTES.CNM Work Phone: Start: 11-28-2023 Antibody screen ANITRA JAVI Comment on above: Order Comment: Speci men Type: BLOOD SPECIMENOrdering Facility: [facility] Address: [address] [place] [address] Performed By: #### T SPN ####CC MAIN BLOOD BANKCLIA [id number] [address] [place] Start: 11-28-2023 Us nuchal bteancur slucency 1st gestation Anitradrake Caldwell APRN.CNM Work Phone: Start: 11-14-2023 BACTERIAL VAGINOSIS NAAT Anitra Javi TREVINON.CNM Work Phone: Start: 11-14-2023 Iadna chlamydia trac homatis amplified probe tq Anitra Javi CIFUENTES.CNM Work Phone: Start: 11-14-2023 Us uterus l imited 1/> fetuses Anitradrake Caldwell APRN.CNM Work Phone: Start: 08-29-2023 Mri any jt lower ext rem w/o contrast matrl Mayda Solares DO Work Phone: Start: 08-19-2023 End: 12-02-2023 History of operative procedure on knee S/P knee surgery Zain Kearney PT Work Phone: Start: 07-31-2023 Radiologic exam knee complete 4/more views Mayda Solares DO Work Phone: Start: 04-02-2023 STREP A MOLECULAR (POC) John Smith MD Work Phone: Start: 02-18-2023 End: 02-18-2023 Radex foot complete minimum 3 views Zhanna Hazel APRN.DIRECTOR CUSTOMER Work Phone: Start: 11-21-2022 STREP A MOLECULAR (POC) Zhanna Hazel APRN.DIRECTOR CUSTOMER Work Phone: Start: 10-16-2021 Mri any jt lower ext rem w/o contrast matrl Mayda Solares DO Work Phone: Start: 09-26-2021 Radiologic exam knee complete 4/more views Mayda Solares DO Work Phone: Start: 08-12-2016 End: 08-12-2016 Iaadiadoo streptococcus group a Luis Cortes PA Work Phone: History of operative procedure on knee S/P knee surgery Mayda Solares DO Work Phone: History of operative procedure on knee S/P knee surgery Mayda Solares DO Work Phone: History of operative procedure on knee S/P knee surgery Mayda Solares DO Work Phone: History of operative procedure on knee S/P knee surgery Zain Kearney PT Work Phone: History of operative procedure on knee S/P knee surgery Mri (I-Stat/1.5t) Work Phone: History of operative procedure on knee S/P knee surgery Raysa Epperson BRUSH HAND Work Phone: Plan of Treatment Date Care Activity Detail Author Start: 11-13-2024 GC (Gonorrhea) Screening (18) GC (Gonorrhea) Screening (18-) [facility] Start: 11-13-2024 Screening for Chlamydia trachomatis Chlamydia Screening () [facility] Start: 11-11-2024 End: 11-11-2024 Patient encounter procedure 11/11/2024 12:30 PM EDT Office Visit [facility] Ophthalmology [address] [place] [address] Vitor Brower, OD [address] [place] [address] Annual Eye Exam Ophthalmology Comment on above: Annual Eye Exam Start: 05-05-2024 End: 05-05-2024 Patient encounter procedure 05/05/2024 2:30 PM EST Office Visit OB/Gynecology [address] [place] [address] Leena Gaytan APRN.CNM [address] [place] [address] Centering OB/Gynecology Comment on above: Centering Start: 04-21-2024 End: 04-21-2024 Patient encounter procedure OB/Gynecology Comment on above: Centering placenta location Start: 04-16-2024 RSV Vaccine (1 - Ris k 1-dose series) RSV Vaccine (1 - Risk 1-dose series) [facility] Start: 03-27-2024 End: 06-26-2024 CBC W Auto Differential panel - Blood COMPLETE BLOOD COUNT AND DIFFERENTIAL Lab Routine 24 weeks gestation of Supervision of normal first teen in second trimester Generalized anxiety disorder Rubella non-immune status, antepartum History of depression Expected: 03/27/2024 (Approximate), Expires: 06/26/2024 [facility] Work Phone: Comment on above: Expected: 03/27/2024 (Approximate), Expires: 06/26/2024 Start: 03-27-2024 End: 06-26-2024 GESTATIONAL GLUCOSE SCREEN, 1-HOUR, 50 GRAM, NON-FASTING GESTATIONAL GLUCOSE SCREEN, 1-HOUR, 50 GRAM, NON-FASTING Lab Routine 24 weeks gestation of Supervision of normal first teen in second trimester Generalized anxiety disorder Rubella non-immune status, antepartum History of depression Expected: 03/27/2024 (Approximate), Expires: 06/26/2024 [facility] Comment on above: Expected: 03/27/2024 (Approximate), Expires: 06/26/2024 Start: 03-27-2024 End: 06-26-2024 SYPHILIS TREPONEMAL W/REFLEX SYPHILIS TREPONEMAL W/REFLEX Lab Routine 24 weeks gestation of Supervision of normal first teen in second trimester Generalized anxiety disorder Rubella non-immune status, antepartum History of depression Expected: 03/27/2024 (Approximate), Expires: 06/26/2024 [facility] Comment on above: Expected: 03/27/2024 (Approximate), Expires: 06/26/2024 Start: 03-17-2024 End: 03-17-2024 Patient encounter procedure 03/17/2024 2:30 PM EDT Office Visit OB/Gynecology [address] [place] [address] Leena Gaytan APRN.CNM [address] [place] [address] [facility] OB/Gynecology Comment on above: Centering Start: 02-18-2024 End: 02-18-2024 Patient encounter procedure 02/18/2024 2:30 PM EDT Office Visit OB/Gynecology [address] [place] [address] Anitra Caldwell APRN.CN [address] [place] [address] [facility] OB/Gynecology Comment on above: Centering Start: 01-23-2024 End: 01-23-2024 Patient encounter procedure OB/Gynecology Comment on above: OB anatomy Start: 01-18-2024 Covid-19 Vaccine ( season) Covid-19 Vaccine ( season) [facility] Start: 01-18-2024 Covid-19 Vaccine ( season) Covid-19 Vaccine ( season) [facility] Start: 01-18-2024 Influenza vaccination C [facility] Start: 12-23-2023 End: 03-23-2024 ALPHA FETOPRO MATERNAL [facility] Work Phone: Comment on above: Expected: 12/23/2023 , Expires: 03/23/2024 Start: 12-23-2023 End: 12-23-2023 Patient encounter procedure 12/23/2023 10:30 AM EDT Routine Office Visit OB/Gynecology [address] [place] [address] Anitra Caldwell APRN.CN [address] [place] [address] OB OB/Gynecology Comment on above: OB Start: 12-12-2023 End: 12-12-2023 Patient encounter procedure 12/12/2023 2:20 PM EDT Routine Office Visit OB/Gynecology [address] [place] [address] Tristan Hazel MD [address] [place] [address] new OB OB/Gynecology Comment on above: new OB Start: 11-28-2023 End: 02-27-2024 Bacteria identified in Urine by Culture URINE CULTURE Microbiology Routine Supervision of normal first teen in second trimester Expected: 11/28/2023, Expires: 02/27/2024 [facility] Comment on above: Expected: 11/28/2023 , Expires: 02/27/2024 Start: 11-28-2023 End: 02-27-2024 CARRIER SCREEN, STANDARD [facility] Comment on above: Expected: 11/28/2023 , Expires: 02/27/2024 Start: 11-28-2023 End: 02-27-2024 Chromosome 21 trisomy [Presence] in Blood or Tissue by Cytogenetics [facility] Work Phone: Comment on above: Expected: 11/28/2023 , Expires: 02/27/2024 Start: 11-28-2023 End: 11-27-2024 OBSTETRIC ULTRASOUND WHI OBSTETRIC ULTRASOUND WHI Anc Imaging Routine Supervision of normal first teen in second trimester Expected: 11/28/2023, Expires: 11/27/2024 [facility] Comment on above: Expected: 11/28/2023 , Expires: 11/27/2024 Start: 11-28-2023 End: 11-28-2023 Patient encounter procedure OB/Gynecology Comment on above: [facility] Start: 11-14-2023 End: 02-13-2024 Bacteria identified in Urine by Culture URINE CULTURE Microbiology Routine Encounter for care in first trimester of first Expected: 11/14/2023, Expires: 02/13/2024 [facility] Comment on above: Expected: 11/14/2023 , Expires: 02/13/2024 Start: 11-14-2023 End: 02-13-2024 CBC panel - Blood by Automated count COMPLETE BLOOD COUNT Lab Routine Encounter for care in first trimester of first Expected: 11/14/2023, Expires: 02/13/2024 [facility] Work Phone: Comment on above: Expected: 11/14/2023 , Expires: 02/13/2024 Start: 11-14-2023 End: 02-13-2024 Hemoglobin A1c in Blood HEMOGLOBIN A1C Lab Routine Encounter for care in first trimester of first Expected: 11/14/2023, Expires: 02/13/2024 [facility] Comment on above: Expected: 11/14/2023 , Expires: 02/13/2024 Start: 11-14-2023 End: 02-13-2024 HEMOGLOBIN EVALUATION CASCADE HEMOGLOBIN EVALUATION CASCADE Lab Routine Encounter for care in first trimester of first Expected: 11/14/2023, Expires: 02/13/2024 [facility] Comment on above: Expected: 11/14/2023 , Expires: 02/13/2024 Start: 11-14-2023 End: 02-13-2024 Hepatitis B virus surface Ag [Presence] in Serum HEPATITIS B SURFACE ANTIGEN Lab Routine Encounter for care in first trimester of first Expected: 11/14/2023, Expires: 02/13/2024 [facility] Comment on above: Expected: 11/14/2023 , Expires: 02/13/2024 Start: 11-14-2023 End: 02-13-2024 Hepatitis C virus Ab [Presence] in Serum HEPATITIS C ANTIBODY IA WITH CONFIRMATION Lab Routine Encounter for care in first trimester of first Expected: 11/14/2023, Expires: 02/13/2024 [facility] Comment on above: Expected: 11/14/2023 , Expires: 02/13/2024 Start: 11-14-2023 End: 02-13-2024 HIV 1+2 Ab [Presence] in Serum or Plasma by Immunoassay HIV 1/2 COMBO WITH REFLEX TO DIFFERENTIATION Lab Routine Encounter for care in first trimester of first Expected: 11/14/2023, Expires: 02/13/2024 [facility] Comment on above: Expected: 11/14/2023 , Expires: 02/13/2024 Start: 11-14-2023 End: 02-13-2024 RUBELLA IGG ANTIBODY RUBELLA IGG ANTIBODY Lab Routine Encounter for care in first trimester of first Expected: 11/14/2023, Expires: 02/13/2024 [facility] Comment on above: Expected: 11/14/2023 , Expires: 02/13/2024 Start: 11-14-2023 End: 02-13-2024 SYPHILIS TOTAL W/REFLEX SYPHILIS TOTAL W/REFLEX Lab Routine Encounter for care in first trimester of first Expected: 11/14/2023, Expires: 02/13/2024 [facility] Comment on above: Expected: 11/14/2023 , Expires: 02/13/2024 Start: 11-14-2023 End: 02-13-2024 TYPE + SCREEN TYPE + SCREEN Blood Bank Routine Encounter for care in first trimester of first Expected: 11/14/2023, Expires: 02/13/2024 [facility] Comment on above: Expected: 11/14/2023 , Expires: 02/13/2024 Start: 11-14-2023 End: 11-14-2023 Patient encounter procedure 11/14/2023 1:00 PM EDT Initial Office Visit OB/Gynecology [address] [place] [address] Anitra Caldwell APRN.CN [address] [place] [address] new OB OB/Gynecology Comment on above: new OB Start: 11-11-2023 End: 11-11-2023 Patient encounter procedure 11/11/2023 10:30 AM EDT Office Visit [facility] Ophthalmology [address] [place] [address] Vitor Brower, OD [address] [place] [address] 1 YR complete with cl eval Ophthalmology Comment on above: 1 YR complete with c l eval Start: 05-19-2023 Behavioral Health Screening Behavioral Health Screening [facility] Start: 05-19-2023 Depression Assessment Depression Ass [facility] Start: 01-17-2023 Covid-19 Vaccine ( season) Covid-19 Vaccine ( season) [facility] Start: 01-17-2023 Influenza vaccination [facility] Start: 2022 CHLAMYDIA SCREENING (18-24) CHLAMYDIA SCREENING (18-24) [facility] Start: 2022 Depression Screening Depression Scre ening [facility] Start: 2022 GC (GONORRHEA) SCREENING (18-24) GC (GONORRHEA) SCREENING (18-24) [facility] Start: 2022 HEPATITIS C SCREENING HEPATITIS C [facility] Start: 2022 Hepatitis C screening Hepatitis C [facility] Start: 2022 HIV SCREENING HIV SCREENING [facility] Start: 2022 HIV screening HIV Screening [facility] Start: 2022 Screening for Chlamydia trachomatis Chlamydia Screening (18) [facility] Start: 05-19-2022 DEPRESSION ASSESSMENT DEPRESSION ASS ESSMENT [facility] Start: 01-17-2022 Influenza vaccination [facility] Start: 2020 Meningococcal B Vaccine: Consider Based On Risk (1 of 2 - Patient Seeks Protection) Meningococcal B Vaccine: Consider Based On Risk (1 of 2 - Patient Seeks Protection) [facility] Start: 2020 MENINGOCOCCAL B: Consider based on risk (1 of 2 - Patient Seeks Protection) MENINGOCOCCAL B: Consider based on risk (1 of 2 - Patient Seeks Protection) [facility] Start: 2020 MENINGOCOCCAL CONJUGATE (1 - 2-dose series) MENINGOCOCCAL CONJUGATE (1 - 2-dose series) [facility] Start: 2020 Meningococcal Conjugate Vaccine (1 - 2-dose series) Meningococcal Conjugate Vaccine (1 - 2-dose series) [facility] Start: 08-11-2019 CHLAMYDIA SCREENING (<18) CHLAMYDIA SCREENING (<18) [facility] Start: 08-11-2019 GC (GONORRHEA) SCREENING (<18) GC (GONORRHEA) SCREENING (<18) [facility] Start: 08-11-2019 HPV Vaccine (1 - 3-dose series) HPV Vaccine (1 - 3-dose series) [facility] Start: 2018 PEDS TO ADULT TRANSITION ANNUAL ASSESSMENT PEDS TO ADULT TRANSITION ANNUAL ASSESSMENT [facility] Start: 03-20-2017 End: 03-20-2017 Appointment Appointment [facility] Work Phone: Start: 2016 Adult depression screening assessment DEPRESSION SCREENING [facility] Start: 2016 PEDS TO ADULT TRANSITION INITIAL DISCUSSION PEDS TO ADULT TRANSITION INITIAL DISCUSSION [facility] Start: 08-11-2015 HPV VACCINE (1 - 2-dose series) HPV VACCINE (1 - 2-dose series) [facility] Start: 2014 MENINGOCOCCAL B: Consider based on risk (1 of 2 - Risk Bexsero 2-dose series) MENINGOCOCCAL B: Consider based on risk (1 of 2 - Risk Bexsero 2-dose series) [facility] Start: 2013 HPV VACCINE (1 - 2-dose series) HPV VACCINE (1 - 2-dose series) [facility] Start: 2009 COVID-19 VACCINE (#1) COVID-19 VACCI NE (#1) [facility] Start: 2008 POLIO (3 of 3 - 4-do se series) POLIO (3 of 3 - 4-dose series) [facility] Start: 02-10-2005 COVID-19 VACCINE (#1) COVID-19 VACCI NE (#1) [facility] Bacteria identified in Urine by Culture URINE CULTURE Microbiology Routine Supervision of normal first teen in second trimester 15 weeks gestation of Nausea and vomiting during Generalized anxiety disorder History of depression 12/23/2023 11:05 AM EDT [facility] End: 08-29-2024 MR Knee - left WO contrast MRI KNEE WO IVCON LEFT Radiology Routine S/P knee surgery Loose body in knee, left knee 1 Occurrences starting 07/31/2023 until 08/29/2024 [facility] Work Phone: Comment on above: 1 Occurrences starti ng 07/31/2023 until 08/29/2024 Patient Education PHARYNGITIS [facility] Work Phone: URINE OB DIP B/O URINE OB DIP B/ O Lab Routine Supervision of normal first teen in second trimester Nausea and vomiting during Normal first with uncertain date of LMP, antepartum Generalized anxiety disorder History of depression 12 weeks gestation of Ordered: 11/28/2023 [facility] Comment on above: Ordered: 11/28/2023 End: 08-22-2024 XR Knee - left 4 Views XR KNEE GENERAL 4V AP BOTH/PA BOTH/LAT/MERC LEFT Radiology Routine Chronic pain of left knee 1 Occurrences starting 07/24/2023 until 08/22/2024 [facility] Work Phone: Comment on above: 1 Occurrences starti ng 07/24/2023 until 08/22/2024 [facility] Immunizations Immunization Date Immunization Notes Care Provider [facility] 04-03-2020 tetanus immune globulin Dipika Hazel APRN.DIRECTOR CUSTOMER Work Phone: [facility] 04-03-2020 tetanus toxoid, redu dagoberto diphtheria toxoid, and acellular pertussis vaccine, adsorbed Zhanna Hazel APRN.DIRECTOR CUSTOMER Work Phone: [facility] 06-10-2017 influenza virus vaccine, unspecified formulation John Smith MD Work Phone: [facility] 02-04-2005 diphtheria, tetanus toxoids and acellular pertussis vaccine [employer] Work Phone: [facility] Work Phone: 02-04-2005 haemophilus influenz ae type b conjugate and Hepatitis B vaccine [employer] Work Phone: [facility] Work Phone: 02-04-2005 pneumococcal conjuga te vaccine, 7 valent [employer] Work Phone: [facility] Work Phone: 02-04-2005 poliovirus vaccine, inactivated [employer] Work Phone: [facility] Work Phone: 2004 diphtheria, tetanus toxoids and acellular pertussis vaccine [employer] Work Phone: [facility] Work Phone: 2004 haemophilus influenz ae type b conjugate and Hepatitis B vaccine [employer] Work Phone: [facility] 2004 haemophilus influenz ae type b vaccine, HbOC conjugate [employer] Work Phone: [facility] Work Phone: 2004 hepatitis B vaccine, pediatric or pediatric/adolescent dosage [employer] Work Phone: [facility] Work Phone: 2004 pneumococcal conjuga te vaccine, 7 valent [employer] Work Phone: [facility] Work Phone: 2004 poliovirus vaccine, inactivated [employer] Work Phone: [facility] Work Phone: Payers Date Payer Category Payer Medicaid MEDICAID [facility] MEDICAID [id number] 2023-Present [phone] [address] [place] [address] Medicaid [id number] 2023 Medicaid [id number] 2022 Private Health Insurance [id number] 2022 Unknown [id number] 2021 Unknown LELO EMANUEL PPO [id number] 2021-Present [phone] [address] [place] [id number] PPO [id number] 2021 Unknown LELO EMANUEL PPO [id number] 2021-Present [phone] [address] [place] [address] PPO [id number] Social History Date Type Detail Facility Start: 06-10-2017 End: 03-14-2022 Tobacco smoking status NHIS Never smoked tobacco [facility] Start: 09-26-2021 End: 02-18-2023 Alcohol intake Current non-drinker of alcohol (finding) [facility] Start: 2004 Sex Assigned At Female C [facility] Start: 09-16-2021 End: 04-08-2022 Exposure to SARS-CoV-2 (event) Not sure [facility] Start: 06-10-2017 End: 03-14-2022 Tobacco use and exposure Smokeless tobacco non-user [facility] Start: 01-22-2023 End: 02-18-2024 History of Social function [facility] Start: 01-22-2023 End: 02-18-2024 Tobacco use panel [facility] National Score (1-10 0), lower number is lower risk 51 [facility] Start: 01-10-2020 Gender identity Identifies as female gender (finding) [facility] Start: 11-14-2023 End: 02-25-2024 Alcohol intake Ex-drinker (finding) [facility] Start: 11-13-2023 Education 15 [facility] Start: 11-13-2023 Alcohol [facility] Start: 09-19-2023 [facility] Medical Equipment Procedure Code Equipment Code Equipment Origin al Text Equipment Identifier Dates [id number] Implant - [id number] Start: 01-18-2022 Comment on above: Description: Semi-T Screw Fastthread 7mm Biocomposite 20mm Interference Knee - [id number] Start: 01-18-2022 Device Dx Swivel ock Sl 3.5mm 8.5mm [place] Eyelet Sterile - [id number] Start: 01-18-2022 Device Dx Swivel ock Sl 3.5mm 8.5mm [place] Eyelet Sterile - [id number] Start: 01-18-2022 Goals Date Patient Goal Desired Activity /State Personal health goal Clinical Notes 06-10-2017 to 02-25-2024 Patient InstructionsTelephone Encounter - Brenda Chaidez RN - 02/25/2024 8:28 AM EDTTelephone Encounter - Brenda Chaidez RN - 02/25/2024 8:28 AM EDTPatient InstructionsPatient Instructions Note Date & Type Note Facility 02-25-2024 Instructions Nadine Teresa MA - 02/25/2024 2:22 PM EDT SEQUENTIAL SCREENINGS The [facility] offers sequential screenings for women who are interested in screenings for chromosomal abnormalities and certain defects during a . The sequential screen combines ultrasound and blood tests to determine the risk of chromosomal abnormalities, including Down's Syndrome (Trisomy 21) and Trisomy 18, as well as open neural tube defects including spina bifida. Ultrasound examination is performed between 11 weeks and 13 weeks gestational age. Blood tests are drawn after the ultrasound and again later in the between 15 and 21 weeks gestational age. Please let your physician know if you are interested in this testing. It will require an appointment with our chemistry laboratory technician. This is not an ultrasound performed by a physician in our office during a routine visit. SIGNS AND SYMPTOMS OF LABOR 1. Contractions every 10 minutes or more often 2. Clear, pink, or brownish fluid (water) leaking from vagina 3. Feeling that baby is pushing down, pressure 4. Low, dull backache 5. Cramps that feel like a period 6. Cramps with or without diarrhea If you notice any of the above symptoms, contact our office at [phone] and ask to speak with a nurse. After hours, you can call doctors registry at [phone] OR call [facility] at [phone] and ask to have the doctor [employer] wireman paged. If you consider this an emergency, dial 9-- or go to your nearest emergency department. NEED HELP? Are you dealing with a violent or abusive relationship? Are you a victim of rape or sexual assult? Call [facility] ([place]) 24 hour Crisis Hotline: 333.107.2731 or 044-666-0896. MANUAL Your Guide to a Healthy manual is now on-line. Visit [email or web address] to download your free copy documented in this encounter [facility] 02-25-2024 Telephone encounter Note Left message for patient to return phone call. Patient is scheduled today for Centering. Please let her know that this is group 4 of Centering and it is their 8th meeting. She was originally enrolled in Group 5 and their group was last Friday. She is welcome to come today and have her OB visit and join our centering group for the day-we have a speaker on car seats coming in or she can have OB visit with one of OB providers outside of Centering. Her next visits are scheduled with the correct #5 centering group. [facility] 02-25-2024 Miscellaneous Notes Left message for patient to return phone call. Patient is scheduled today for Centering. Please let her know that this is group 4 of Centering and it is their 8th meeting. She was originally enrolled in Group 5 and their group was last Friday. She is welcome to come today and have her OB visit and join our centering group for the day-we have a speaker on car seats coming in or she can have OB visit with one of OB providers outside of Centering. Her next visits are scheduled with the correct #5 centering group. documented in this encounter [facility] 02-25-2024 Progress note Formatting of t his note might be different from the original. CP- CENTERING S: Beatris Fletcher is a 18 year old female who presents at 24 weeks gestation for a routine visit and centering. Positive movements. Denies headache, visual changes, chest pain, shortness of breath, vaginal bleeding, leakage of fluid, or dysuria. Feeling well, no complaints. O: See flow sheet Gen: No apparent distress Abd: Gravid, nontender ASSESSMENT/PLAN: 1. 24 weeks gestation of - ICD9: V22.2, ICD10: Z3A.24 (primary diagnosis) 2. Supervision of normal first teen in second trimester - ICD9: V22.0, ICD10: Z34.02 3. Generalized anxiety disorder - ICD9: 300.02, ICD10: F41.1 4. Rubella non-immune status, antepartum - ICD9: 646.83, V15.83, ICD10: O09.899, Z28.39 5. History of depression - ICD9: V11.8, ICD10: Z86.59 6. Heartburn in - TUMS as needed - Continue ASA and vitamin daily - Continues to have back pain, suggested support band and chiropractor - PTL precautions reviewed - RTO 4 weeks Leena Gaytan APRN.CNM [facility] 02-25-2024 Miscellaneous Notes CP- CENTERING S: Beartis Fletcher is a 18 year old female who presents at 24 weeks gestation for a routine visit and centering. Positive movements. Denies headache, visual changes, chest pain, shortness of breath, vaginal bleeding, leakage of fluid, or dysuria. Feeling well, no complaints. O: See flow sheet Gen: No apparent distress Abd: Gravid, nontender ASSESSMENT/PLAN: 1. 24 weeks gestation of - ICD9: V22.2, ICD10: Z3A.24 (primary diagnosis) 2. Supervision of normal first teen in second trimester - ICD9: V22.0, ICD10: Z34.02 3. Generalized anxiety disorder - ICD9: 300.02, ICD10: F41.1 4. Rubella non-immune status, antepartum - ICD9: 646.83, V15.83, ICD10: O09.899, Z28.39 5. History of depression - ICD9: V11.8, ICD10: Z86.59 6. Heartburn in - TUMS as needed - Continue ASA and vitamin daily - Continues to have back pain, suggested support band and chiropractor - PTL precautions reviewed - RTO 4 weeks Leena Gaytan APRN.CNM documented in this encounter [facility] 01-27-2024 Telephone encounter Note Patient notified. Lulú Lacy RN [facility] 01-27-2024 Miscellaneous Notes Patient notified. Lulú Lacy RN Left message for patient to call office. Andrea Carlton RN ----- Message from Anitra Caldwell APRN.CNM sent at 01/26/2024 11:43 AM EDT ----- Anatomy ultrasound reviewed. Please assist in scheduling follow up US at 32 weeks for placental location. Please place copy in OB chart. Anitra Caldwell APRN.CNM documented in this encounter [facility] 01-26-2024 Telephone encounter Note Left message for patient to call office. Andrea Carlton RN [facility] 01-26-2024 Telephone encounter Note ----- Message from Anitra Caldwell APRN.CNM sent at 01/26/2024 11:43 AM EDT ----- Anatomy ultrasound reviewed. Please assist in scheduling follow up US at 32 weeks for placental location. Please place copy in OB chart. Anitra Caldwell APRN.CNM [facility] 01-26-2024 Telephone encounter Note 2nd risk assessment form submitted 01/26/2024. Amelia Armstrong RN [facility] 01-26-2024 Miscellaneous Notes 2nd risk assessment form submitted 01/26/2024. Amelia Armstrong RN documented in this encounter [facility] 01-23-2024 Instructions Anitra Caldwell APRN.CNM - 01/23/2024 10:40 AM EDT 1) Chiropractor for back pain. 2) Ice to back, on for 20 minutes, off for 20 minutes, for 2 hours 3) Pelvic tilts 4) Biofreeze or icy hot 5) Warm bath with 2 cups of epsom salt 6) Abdominal support belt ([employer], [employer], or check with insurance for coverage) SIGNS AND SYMPTOMS OF LABOR 1. Contractions every 10 minutes or more often 2. Clear, pink, or brownish fluid (water) leaking from vagina 3. Feeling that baby is pushing down, pressure 4. Low, dull backache 5. Cramps that feel like a period 6. Cramps with or without diarrhea If you notice any of the above symptoms, contact our office at [phone] and ask to speak with a nurse. After hours, you can call doctors registry at [phone] OR call [facility] at [phone] and ask to have the doctor x ray electronics wireman paged. If you consider this an emergency, dial or go to your nearest emergency department. NEED HELP? Are you dealing with a violent or abusive relationship? Are you a victim of rape or sexual assult? Call [facility] ([place]) 24 hour Crisis Hotline: 301.924.8193 or 748-499-4023. MANUAL Your Guide to a Healthy manual is now on-line. Visit [email or web address] [email or web address] to download your free copy documented in this encounter [facility] 01-23-2024 Progress note Formatting of t his note might be different from the original. BAKARI-S: Beatris Fletcher is a 18 year old female who presents at 20w0d with RICK:06/11/2024, by Ultrasound for a routine visit. Denies headache, visual changes, chest pain, shortness of breath, vaginal bleeding, leakage of fluid, or dysuria. Feeling well, no complaints.Nausea improved, decreased amount of Reglan used, taking B6. O: See flow sheet Gen: No apparent distress Abd: Gravid, nontender ASSESSMENT/PLAN: 1. Supervision of normal first teen in second trimester -AFP completed, negative -Continue PNV and ASA -Anatomy US today, awaiting results 2. 20 weeks gestation of - RICK by US 06/11/24 3. Nausea and vomiting during -Continue Reglan and Vitamin B6 4. Generalized anxiety disorder -Coping well 5. History of depression -Coping well 6. Rubella non-immune status, antepartum -Unvaccinated. Discussed vaccination PP if she desires 7. Back pain in -Reviewed good body mechanics, chiropractic, massage, abdominal support belt, and ice. -PTL precautions reviewed and when to call -RTO in 4wk Anitra Caldwell APRN.CNM [facility] 01-23-2024 Miscellaneous Notes BAKARI-S: Beatris Fletcher is a 18 year old female who presents at 20w0d with RICK:06/11/2024, by Ultrasound for a routine visit. Denies headache, visual changes, chest pain, shortness of breath, vaginal bleeding, leakage of fluid, or dysuria. Feeling well, no complaints.Nausea improved, decreased amount of Reglan used, taking B6. O: See flow sheet Gen: No apparent distress Abd: Gravid, nontender ASSESSMENT/PLAN: 1. Supervision of normal first teen in second trimester -AFP completed, negative -Continue PNV and ASA -Anatomy US today, awaiting results 2. 20 weeks gestation of - RICK by US 06/11/24 3. Nausea and vomiting during -Continue Reglan and Vitamin B6 4. Generalized anxiety disorder -Coping well 5. History of depression -Coping well 6. Rubella non-immune status, antepartum -Unvaccinated. Discussed vaccination PP if she desires 7. Back pain in -Reviewed good body mechanics, chiropractic, massage, abdominal support belt, and ice. -PTL precautions reviewed and when to call -RTO in 4wk Anitra Caldwell APRN.CNM documented in this encounter [facility] 12-23-2023 Progress note Formatting of t his note might be different from the original. BAKARI-S: Beatris Fletcher is a 18 year old female who presents at 15w4d with RICK:06/11/2024, by Ultrasound for a routine visit. Denies headache, visual changes, chest pain, shortness of breath, vaginal bleeding, leakage of fluid, or dysuria. Feeling well, no complaints.It's a Boy! O: See flow sheet Gen: No apparent distress Abd: Gravid, nontender ASSESSMENT/PLAN: 1. Supervision of normal first teen in second trimester - URINE CULTURE - ALPHA FETOPRO MATERNAL -Continue PNV and ASA 2. 15 weeks gestation of -NT US consistent with US at 10w. RICK by US 06/11/24 3. Nausea and vomiting during -Continue Reglan and Vitamin B6 4. Generalized anxiety disorder -Coping well 5. History of depression -Coping well 6. Rubella non-immune status, antepartum -Unvaccinated. Discussed vaccination PP if she desires -PTL precautions reviewed and when to call -RTO in 4wk Anitra Caldwell APRN.CNM [facility] 12-23-2023 Miscellaneous Notes ISHAS: Beatris Fletcher is a 18 year old female who presents at 15w4d with RICK:06/11/2024, by Ultrasound for a routine visit. Denies headache, visual changes, chest pain, shortness of breath, vaginal bleeding, leakage of fluid, or dysuria. Feeling well, no complaints.It's a Boy! O: See flow sheet Gen: No apparent distress Abd: Gravid, nontender ASSESSMENT/PLAN: 1. Supervision of normal first teen in second trimester - URINE CULTURE - ALPHA FETOPRO MATERNAL -Continue PNV and ASA 2. 15 weeks gestation of -NT US consistent with US at 10w. RICK by US 06/11/24 3. Nausea and vomiting during -Continue Reglan and Vitamin B6 4. Generalized anxiety disorder -Coping well 5. History of depression -Coping well 6. Rubella non-immune status, antepartum -Unvaccinated. Discussed vaccination PP if she desires -PTL precautions reviewed and when to call -RTO in 4wk Anitra Caldwell APRN.CNM documented in this encounter [facility] 12-23-2023 Instructions Ld Duckworth MA - 12/23/2023 10:16 AM EDT SEQUENTIAL SCREENINGS The [facility] offers sequential screenings for women who are interested in screenings for chromosomal abnormalities and certain defects during a . The sequential screen combines ultrasound and blood tests to determine the risk of chromosomal abnormalities, including Down's Syndrome (Trisomy 21) and Trisomy 18, as well as open neural tube defects including spina bifida. Ultrasound examination is performed between 11 weeks and 13 weeks gestational age. Blood tests are drawn after the ultrasound and again later in the between 15 and 21 weeks gestational age. Please let your physician know if you are interested in this testing. It will require an appointment with our chemistry laboratory technician. This is not an ultrasound performed by a physician in our office during a routine visit. SIGNS AND SYMPTOMS OF LABOR 1. Contractions every 10 minutes or more often 2. Clear, pink, or brownish fluid (water) leaking from vagina 3. Feeling that baby is pushing down, pressure 4. Low, dull backache 5. Cramps that feel like a period 6. Cramps with or without diarrhea If you notice any of the above symptoms, contact our office at [phone] and ask to speak with a nurse. After hours, you can call doctors registry at [phone] OR call [facility] at [phone] and ask to have the doctor x ray electronics wireman paged. If you consider this an emergency, dial 9-4 or go to your nearest emergency department. NEED HELP? Are you dealing with a violent or abusive relationship? Are you a victim of rape or sexual assult? Call [facility] ([place]) 24 hour Crisis Hotline: 533.246.5037 or 692-313-4621. MANUAL Your Guide to a Healthy manual is now on-line. Visit [email or web address] [email or web address] to download your free copy documented in this encounter [facility] 12-12-2023 Note HNO ID: [id number] Author: JOSEPH HSU APRN.DIRECTOR CUSTOMER Service: ? Author Type: Nurse Practitioner Type: Progress Notes Filed: 12/12/2023 15:31 Note Text: Subjective HPI HPI Beatris Fletcher is a 18 year old female who presents today for CC of nausea/vomiting, is 14 weeks . Currently prescribed multiple anti nausea medications from [facility]. Tolerating fluids/solids, last void was just before this visit. Reports needs work note. Denies abdominal pain/vaginal bleeding. .Patient presents with: Nausea AND Vomiting: With 14 weeks PAST MEDICAL HISTORY Diagnosis Date Anemia Depression/anxiety Ganglion cyst of wrist, left Irregular menses PAST SURGICAL HISTORY Procedure Laterality Date DENTAL SURGERY HX 2015 ORTHOPEDICS SURGERY HX knee torn meniscus WRIST Left cyst on left wrist ALLERGIES Lactase MEDICATIONS pyridoxine, vitamin B6, (VITAMIN B-6) 50 mg tablet Take 50 mg by mouth once daily. promethazine (PHENERGAN) 12.5 mg tablet Take 1 tablet by mouth every 6 hours as needed. aspirin, enteric coated (ECOTRIN LOW STRENGTH) 81 mg EC tablet Take 1 tablet by mouth once daily. Zyglxtxv-Hs-Gop-Fe-FA tab Take 1 tablet by mouth once daily. With folic acid and DHA as covered by insurance. VIT 10-IRON FUM-FOLIC ORAL Take by mouth. ondansetron orally disintegrating (ZOFRAN ODT) 4 mg disintegrating tablet EVERY 8 HOURS NEEDED as needed for Nausea FAMILY HISTORY Problem Relation Age of Onset No Known Problems Mother No Known Problems Father Scoliosis Sister No Known Problems Sister No Known Problems Sister Heart Maternal Grandmother Hypertension Maternal Grandmother Diabetes Maternal Grandmother Lung Cancer Maternal Grandmother other (lung issues) Maternal Grandfather Hypertension Paternal Grandmother other (heart) Paternal Grandmother Breast Cancer Paternal Grandmother Stroke Paternal Grandfather Liver Disease Paternal Grandfather other (stomach issues) Paternal Grandfather Alcohol abuse Paternal Grandfather DVT Paternal Grandfather Social History Tobacco Use Smoking status: Never Smokeless tobacco: Never Vaping Use Vaping Use: Former Quit date: 05/19/2021 Substance Use Topics Alcohol use: Not Currently Comment: occasionally Drug use: No ROS Objective Blood pressure 116/77, pulse 102, temperature 36.7 ?C (98 ?F), resp. rate 18, weight 62 kg (136 lb 11 oz), last menstrual period 08/21/2023, SpO2 99%. Physical Exam Constitutional: General: She is not in acute distress. Appearance: Normal appearance. She is not toxic-appearing. Cardiovascular: Rate and Rhythm: Normal rate and regular rhythm. Heart sounds: Normal heart sounds. Pulmonary: Effort: Pulmonary effort is normal. Breath sounds: Normal breath sounds. Abdominal: General: Bowel sounds are normal. Palpations: Abdomen is soft. Tenderness: There is no abdominal tenderness. Skin: General: Skin is warm and dry. ASSESSMENT/PLAN: 1. Nausea - ICD9: 787.02, ICD10: R11.0 Continue taking medication ordered by weather strip installer Red flag s/s discussed Work note provided Jospeh Hsu APRN.[facility] 12-12-2023 History of Presen t illness Narrative Subjective HPI HPI Beatris Fletcher is a 18 year old female who presents today for CC of nausea/vomiting, is 14 weeks . Currently prescribed multiple anti nausea medications from [facility] [employer]. Tolerating fluids/solids, last void was just before this visit. Reports needs work note. Denies abdominal pain/vaginal bleeding. .Patient presents with: Nausea & Vomiting: With 14 weeks PAST MEDICAL HISTORY Diagnosis Date Anemia Depression/anxiety Ganglion cyst of wrist, left Irregular menses PAST SURGICAL HISTORY Procedure Laterality Date DENTAL SURGERY HX 2015 ORTHOPEDICS SURGERY HX knee torn meniscus WRIST Left cyst on left wrist ALLERGIES Lactase MEDICATIONS pyridoxine, vitamin B6, (VITAMIN B-6) 50 mg tablet Take 50 mg by mouth once daily. promethazine (PHENERGAN) 12.5 mg tablet Take 1 tablet by mouth every 6 hours as needed. aspirin, enteric coated (ECOTRIN LOW STRENGTH) 81 mg EC tablet Take 1 tablet by mouth once daily. Pelxhgkz-Dt-Sxz-Fe-FA tab Take 1 tablet by mouth once daily. With folic acid and DHA as covered by insurance. VIT 10-IRON FUM-FOLIC ORAL Take by mouth. ondansetron orally disintegrating (ZOFRAN ODT) 4 mg disintegrating tablet EVERY 8 HOURS NEEDED as needed for Nausea FAMILY HISTORY Problem Relation Age of Onset No Known Problems Mother No Known Problems Father Scoliosis Sister No Known Problems Sister No Known Problems Sister Heart Maternal Grandmother Hypertension Maternal Grandmother Diabetes Maternal Grandmother Lung Cancer Maternal Grandmother other (lung issues) Maternal Grandfather Hypertension Paternal Grandmother other (heart) Paternal Grandmother Breast Cancer Paternal Grandmother Stroke Paternal Grandfather Liver Disease Paternal Grandfather other (stomach issues) Paternal Grandfather Alcohol abuse Paternal Grandfather DVT Paternal Grandfather Social History Tobacco Use Smoking status: Never Smokeless tobacco: Never Vaping Use Vaping Use: Former Quit date: 05/19/2021 Substance Use Topics Alcohol use: Not Currently Comment: occasionally Drug use: No ROS Objective Blood pressure 116/77, pulse 102, temperature 36.7 C (98 F), resp. rate 18, weight 62 kg (136 lb 11 oz), last menstrual period 08/21/2023, SpO2 99%. Physical Exam Constitutional: General: She is not in acute distress. Appearance: Normal appearance. She is not toxic-appearing. Cardiovascular: Rate and Rhythm: Normal rate and regular rhythm. Heart sounds: Normal heart sounds. Pulmonary: Effort: Pulmonary effort is normal. Breath sounds: Normal breath sounds. Abdominal: General: Bowel sounds are normal. Palpations: Abdomen is soft. Tenderness: There is no abdominal tenderness. Skin: General: Skin is warm and dry. ASSESSMENT/PLAN: 1. Nausea - ICD9: 787.02, ICD10: R11.0 Continue taking medication ordered by weather strip installer Red flag s/s discussed Work note provided Joseph Hsu APRN.CNP documented in this encounter [facility] 12-10-2023 Telephone encounter Note Pt notified and voiced understanding. Andrea Carlton RN [facility] 12-10-2023 Miscellaneous Notes Pt notified and voiced understanding. Andrea Carlton RN We can try phenergan, but this can make her feel tired and dizzy as well. They can all have similar side effects it just depends how she responds. I started with a lower dose so would recommend to start here. Stop the Reglan and then try Phenergan. Can still take zofran inbetween doses and see if that helps. Would also add Vitamin B6 50 mg twice a day and Unisom full tablet at bedtime. Take the Unisom about 2 hrs after her last phenergan dose. If no improvement would recommend ED for iv fluids. Can always try this and make appt with me Friday to follow up and could try outpatient IV hydration as an option. Anitra Caldwell APRN.CNM 13w4d Patient was switched from Zofran to Reglan because the Zofran was ineffective. She is wanting a different med. Reglan is causing her dizziness (which she was aware could happen) and she is still vomiting several times a day. Keeping jello and fluids down only. Is there another medication she can be prescribed? Amelia Martinez RN documented in this encounter [facility] 12-10-2023 Telephone encounter Note We can try phenergan, but this can make her feel tired and dizzy as well. They can all have similar side effects it just depends how she responds. I started with a lower dose so would recommend to start here. Stop the Reglan and then try Phenergan. Can still take zofran inbetween doses and see if that helps. Would also add Vitamin B6 50 mg twice a day and Unisom full tablet at bedtime. Take the Unisom about 2 hrs after her last phenergan dose. If no improvement would recommend ED for iv fluids. Can always try this and make appt with me Friday to follow up and could try outpatient IV hydration as an option. Anitra Caldwell APRN.CNM [facility] 12-09-2023 Telephone encounter Note 13w4d Patient was switched from Zofran to Reglan because the Zofran was ineffective. She is wanting a different med. Reglan is causing her dizziness (which she was aware could happen) and she is still vomiting several times a day. Keeping jello and fluids down only. Is there another medication she can be prescribed? Amelia Martinez RN [facility] 11-28-2023 Instructions Lisa Alamo LPN - 11/28/2023 2:17 PM EDT SEQUENTIAL SCREENINGS The [facility] offers sequential screenings for women who are interested in screenings for chromosomal abnormalities and certain defects during a . The sequential screen combines ultrasound and blood tests to determine the risk of chromosomal abnormalities, including Down's Syndrome (Trisomy 21) and Trisomy 18, as well as open neural tube defects including spina bifida. Ultrasound examination is performed between 11 weeks and 13 weeks gestational age. Blood tests are drawn after the ultrasound and again later in the between 15 and 21 weeks gestational age. Please let your physician know if you are interested in this testing. It will require an appointment with our chemistry laboratory technician. This is not an ultrasound performed by a physician in our office during a routine visit. SIGNS AND SYMPTOMS OF LABOR 1. Contractions every 10 minutes or more often 2. Clear, pink, or brownish fluid (water) leaking from vagina 3. Feeling that baby is pushing down, pressure 4. Low, dull backache 5. Cramps that feel like a period 6. Cramps with or without diarrhea If you notice any of the above symptoms, contact our office at [phone] and ask to speak with a nurse. After hours, you can call doctors registry at [phone] OR call [facility] at [phone] and ask to have the doctor x ray electronics wireman paged. If you consider this an emergency, dial 9-1-4 or go to your nearest emergency department. NEED HELP? Are you dealing with a violent or abusive relationship? Are you a victim of rape or sexual assult? Call [facility] ([place]) 24 hour Crisis Hotline: 213.293.2335 or 028-321-2300. MANUAL Your Guide to a Healthy manual is now on-line. Visit [email or web address] [email or web address] to download your free copy documented in this encounter [facility] 11-28-2023 Progress note Formatting of t his note might be different from the original. BAKARI-S: Beatris Fletcher is a 18 year old female who presents at 12w0d with RICK:06/11/2024, by Ultrasound for a routine visit. Denies headache, visual changes, chest pain, shortness of breath, vaginal bleeding, leakage of fluid, or dysuria. Feeling well, no complaints. O: See flow sheet Gen: No apparent distress Abd: Gravid, nontender NT US today ASSESSMENT/PLAN: 1. Supervision of normal first teen in second trimester -Desires NIPT and carrier screening -PN labs today -Anatomy US at 20 weeks 2. Nausea and vomiting during -Will stop zofran and start Reglan 3. Normal first with uncertain date of LMP, antepartum -NT US consistent with US at 10w. RICK by US 06/11/24 4. Generalized anxiety disorder -Coping well, no medication 5. History of depression -Coping well, no medication 6. 12 weeks gestation of -PTL precautions reviewed and when to call -RTO in 4 weeks Anitra Caldwell APRN.CNM [facility] 11-28-2023 Miscellaneous Notes BAKARI-S: Beatris Fletcher is a 18 year old female who presents at 12w0d with RICK:06/11/2024, by Ultrasound for a routine visit. Denies headache, visual changes, chest pain, shortness of breath, vaginal bleeding, leakage of fluid, or dysuria. Feeling well, no complaints. O: See flow sheet Gen: No apparent distress Abd: Gravid, nontender NT US today ASSESSMENT/PLAN: 1. Supervision of normal first teen in second trimester -Desires NIPT and carrier screening -PN labs today -Anatomy US at 20 weeks 2. Nausea and vomiting during -Will stop zofran and start Reglan 3. Normal first with uncertain date of LMP, antepartum -NT US consistent with US at 10w. RICK by US 06/11/24 4. Generalized anxiety disorder -Coping well, no medication 5. History of depression -Coping well, no medication 6. 12 weeks gestation of -PTL precautions reviewed and when to call -RTO in 4 weeks Anitra Caldwell APRN.CNM documented in this encounter [facility] 11-28-2023 Telephone encounter Note Order signed. Anitra Caldwell APRN.CNM [facility] 11-28-2023 Miscellaneous Notes Order signed. Anitra Caldwell APRN.CNM Pt is having Nuchal scan done today and needs order. Andrea Carlton RN documented in this encounter [facility] 11-28-2023 Telephone encounter Note Pt is having Nuchal scan done today and needs order. Andrea Carlton RN [facility] 11-18-2023 Telephone encounter Note 1st risk assessment form submitted November 18, 2023. TRUE Ochoa, RN OB Clinical Navigator [phone] [facility] 11-18-2023 Miscellaneous Notes 1st risk assessment form submitted November 18, 2023. TRUE Ochoa, RN OB Clinical Navigator [phone] documented in this encounter [facility] 11-17-2023 Progress note Formatting of t his note might be different from the original. NOB, see progress note. Interested in Centering. Would like aneuploidy screening, will verify next visit. Anitra Caldwell APRN.CNM [facility] 11-17-2023 Miscellaneous Notes NOB, see progress note. Interested in Centering. Would like aneuploidy screening, will verify next visit. Anitra Caldwell APRN.CNM documented in this encounter [facility] 11-14-2023 Instructions Anitra Caldwell APRN.ELIAZAR - 11/14/2023 1:03 PM EDT Please select the following link to access the [facility] Your Guide to a Healthy . [email or web address] Aspirin 81mg by mouth once daily after 12 weeks documented in this encounter [facility] 11-14-2023 Note HNO ID: [id number] Author: NORA HAILE LPN Service: ? Author Type: LICENSED NURSE Type: Progress Notes Filed: 11/17/2023 09:51 Note Text: OB point of care ultrasound was performed. See imaging tab for details. Nora Haile LPN [facility] 11-14-2023 History of Presen t illness Narrative OB point of care ultrasound was performed. See imaging tab for details. Nora Haile LPN INITIAL OB ASSESSMENT HPI: Beatris is a 18 year old White Female here to establish Obstetrical Care. Patient's last menstrual period was 08/21/2023 (approximate). from OB Dating Form. Approximate LMP, uncertain of this as she was irregular and not tracking. [facility] US showed 6 weeks while LMP was 8w5d and inconsistent. was unplanned but accepted-excited Complaints: (!) Severe nausea/vomiting ([facility]-feeling better on Zofran) OB History T0 L0 SAB0 IAB0 Ectopic0 Multiple0 Live Births0 Previous history: Prior : never History of 4th degree laceration: No History of shoulder dystocia: No History of Hypertensive disorders including pre-eclampsia or gestational hypertension: No History of gestational diabetes: No Patient's Risk Screening for delivery: Have you had a prior stallworth between 20w and 36w6d? No How many pregnancies have you had before? 0 Did you have a previous baby with a GBS Infection? No Please select all that apply for any prior : N/A MEDICAL/PSYCHOSOCIAL HISTORY: History of hemorrhage or bleeding concerns: No Thyroid Disease: No History of chronic hypertension: No History of pre-existing diabetes: No No results found for: ABORHD BMI 22.81 kg/(m^2) Last Pap: History of abnormal pap: No Prior treatment for cervical dysplasia: none. Last HPV: History of STDs: None Partner History of STDs: None Did you have a partner with Herpes? No Tobacco use: No E-Cigarette/Vaping Use: No Caffeine use: 1 cup of green tea once a week Drug use: No Alcohol use: No Multivitamin with Folic acid: Yes Would refuse blood transfusion if medically necessary: No Social Needs: How often does this describe you? I don't have enough money to pay my bills: Never Within the past 12 months, have you worried that your food would run out before you had money to buy more? Sometimes In the past 12 months, has lack of reliable transportation kept you from going to medical appointments or work, or from getting things needed for daily living? Never In the past 12 months, have you had any concerns about having a place to live, or about the condition or quality of your housing? Never Would you like more information on any of the following (please check all that apply)? Centering (group care classes) Social History: Do you have any history of depression, anxiety, PTSD, or other mood problems? Yes Do you have a history of abuse or trauma that may impact your experience? No Are you currently employed? Yes Depression/Anxiety Screening: denies symptoms of depression. OB Depression and Anxiety Screening- This Encounter (since 11/13/2023) Over the past 2 weeks have you felt down, depressed, or hopeless? Negative Over the past two weeks, have you felt little interest or pleasure in doing things? Negative Feeling nervous, anxious or on edge 1-Several days Not being able to stop or control worrying 0-Not al all Anxiety Pre-Screening Total (If >/= 3 additional questions will be reviewed) 1 Genetic Screening: Partner present: No Patient verbalized knowledge of partner family health history: No Do you or your partner have any personal or family history of defects not previously discussed: No Do you have history of a complicated by anomaly, genetic condition, or demise: No Low Dose ASA Screening: Screening for low dose aspirin use for the prevention of pre-eclampsia: High risk factors: None Moderate risk ractors: Nulliparity OB Risk Screening: Completed, no positive findings documented. Marital Status:Committed relationship Partner: Name: Royce Mercado Age: 18 Occupation: [employer] Gender: Male PAST MEDICAL HISTORY Diagnosis Date Anemia Depression/anxiety Ganglion cyst of wrist, left Irregular menses PAST SURGICAL HISTORY Procedure Laterality Date DENTAL SURGERY HX 2015 ORTHOPEDICS SURGERY HX knee torn meniscus WRIST Left cyst on left wrist Current Outpatient Medications Medication Sig Dispense Refill VIT 10-IRON FUM-FOLIC ORAL Take by mouth. ondansetron orally disintegrating (ZOFRAN ODT) 4 mg disintegrating tablet EVERY 8 HOURS NEEDED as needed for Nausea No current facility-administered medications for this visit. Allergies As of Date: 11/14/2023 Allergen Noted Reaction LACTASE 06/26/2020 Other: See Comments Fully Assessed 11/14/2023 Does patient have penicillin allergy: No REVIEW OF SYSTEMS: GENERAL: Negative for: Fever or Chills HEENT: Negative for: Headache, Impaired Vision, Ringing in Ears, Nosebleeds NECK: Negative for: Swelling, Pain, Stiffness RESPIRATORY: Negative for: Cough, Shortness of breath, Wheezing GASTROINTESTINAL: Negative for: Heartburn, Constipation, Diarrhea, Blood in stool, Vomiting MUSCULOSKELETAL: Negative for: Muscle or joint pain, stiffness, Joint swelling NEUROLOGIC/PSYCHIATRIC: Negative for: Weakness, Paralysis, Numbness, Tingling, Tremor, Anxiety, Depression, Memory loss SKIN: Negative for: Rash, Itching GENITOURINARY: Negative for: vaginal itching, vaginal discharge, hematuria or dysuria PHYSICAL EXAM: BP 98/60 Ht 5' 4.5 (1.64m) Wt 135 lb (61.2kg) LMP 08/21/2023 BMI 22.82 kg/(m^2). GENERAL: pleasant in no apparent distress DERMATOLOGY: Normal, without lesions, non-icteric, and non-hirsute NECK: Supple, full range of motion, no adenopathy, and thyroid normal CHEST: Clear to auscultation, Normal inspiratory effort, Regular rate and rhythm, and No murmurs, clicks, rubs or gallops BREAST: soft, non-tender, symmetric, no dominant mass, normal nipple-areolar complex, no lymphadenopathy, and no nipple discharge ABDOMEN: soft, non-tender, and no masses NEURO: alert and oriented x3,exam grossly non-focal PELVIS: External genitalia normal without lesions. Perineal body intact. No vaginal or cervical lesions. Cervix closed. Uterus 10 week size. No adnexal masses or tenderness. Clinical Pelvimetry: Pelvimetry clinically assessed as adequate Limited OB ultrasound exam: single intrauterine , positive cardiac activity, crown-rump length 10w0d, and normal bilateral adnexa. LMP inconsistent with US, RICK: 06/11/24 by US ASSESSMENT: 18 year old at 12w1d wks gestational age PLAN: 1) Patient oriented to practice. Patient given new OB orientation folder. Discussed nutrition, folic acid supplementation, dietary guidelines, exercise, smoking, alcohol, caffeine, and drug use. Discussed gestational weight gain guidelines. Discussed routine OB labs including STD/HIV. OB Community care order placed. Discussed hemoglobin electrophoresis. Patient: Accepts Reviewed midwifery and car manager services that are available. 2) Screening: Hemoglobin A1C: ordered Baby Aspirin: The patient has been counseled about the potential benefits of low dose aspirin in and our recommendation that this be offered to all patients, regardless of whether they meet the high risk criteria specified above. She Accepts Aneuploidy Screening: Discussed aneuploidy screening, nuchal translucency/first trimester early anatomy ultrasound and NIPT. The risks/benefits and limitations of NIPT/aneuploidy screening were reviewed including the potential for false negative and false positive results. The availability of genetic counseling was reviewed. Information on aneuploidy screening was provided. The patient is uncertain. She will call back if she wants to proceed with screening. Pt aware of timing. Myriad Carrier Screening: Discussed myriad carrier screening. We discussed the availability of professional-society guided carrier screening and reviewed the conditions screened and limitations of screening. The availability of genetic counseling was reviewed. Information on carrier screening was provided. The patient will check with insurance. 3) Patient offered option of Virtual Visits. Patient prefers in person visits. 4) RICK inconsistent with LMP, RICK: 06/11/24 by US today, dating Updated. Follow up in 4 weeks or sooner prn. Anitra Caldwell APRN.CNM documented in this encounter [facility] 11-13-2023 Note HNO ID: [id number] Author: ANITRA CALDWELL APRN.CNM Service: ? Author Type: Crew Mess Attendant Type: Progress Notes Filed: 11/17/2023 09:51 Note Text: INITIAL OB ASSESSMENT HPI: Beatris is a 18 year old White Female here to establish Obstetrical Care. Patient's last menstrual period was 08/21/2023 (approximate). from OB Dating Form. Approximate LMP, uncertain of this as she was irregular and not tracking. [facility]. US showed 6 weeks while LMP was 8w5d and inconsistent. was unplanned but accepted-excited Complaints: (!) Severe nausea/vomiting ([facility]-feeling better on Zofran) OB History T0 L0 SAB0 IAB0 Ectopic0 Multiple0 Live Births0 Previous history: Prior : never History of 4th degree laceration: No History of shoulder dystocia: No History of Hypertensive disorders including pre-eclampsia or gestational hypertension: No History of gestational diabetes: No Patient's Risk Screening for delivery: Have you had a prior stallworth between 20w and 36w6d? No How many pregnancies have you had before? 0 Did you have a previous baby with a GBS Infection? No Please select all that apply for any prior : N/A MEDICAL/PSYCHOSOCIAL HISTORY: History of hemorrhage or bleeding concerns: No Thyroid Disease: No History of chronic hypertension: No History of pre-existing diabetes: No No results found for: ABORHD BMI 22.81 kg/(m2) Last Pap: History of abnormal pap: No Prior treatment for cervical dysplasia: none. Last HPV: History of STDs: None Partner History of STDs: None Did you have a partner with Herpes? No Tobacco use: No E-Cigarette/Vaping Use: No Caffeine use: 1 cup of green tea once a week Drug use: No Alcohol use: No Multivitamin with Folic acid: Yes Would refuse blood transfusion if medically necessary: No Social Needs: How often does this describe you? I don't have enough money to pay my bills: Never Within the past 12 months, have you worried that your food would run out before you had money to buy more? Sometimes In the past 12 months, has lack of reliable transportation kept you from going to medical appointments or work, or from getting things needed for daily living? Never In the past 12 months, have you had any concerns about having a place to live, or about the condition or quality of your housing? Never Would you like more information on any of the following (please check all that apply)? Centering (group care classes) Social History: Do you have any history of depression, anxiety, PTSD, or other mood problems? Yes Do you have a history of abuse or trauma that may impact your experience? No Are you currently employed? Yes Depression/Anxiety Screening: denies symptoms of depression. OB Depression and Anxiety Screening- This Encounter (since 11/13/2023) Over the past 2 weeks have you felt down, depressed, or hopeless? Negative Over the past two weeks, have you felt little interest or pleasure in doing things?? Negative Feeling nervous, anxious or on edge 1-Several days Not being able to stop or control worrying 0-Not al all Anxiety Pre-Screening Total (If >/= 3 additional questions will be reviewed) 1 Genetic Screening: Partner present: No Patient verbalized knowledge of partner family health history: No Do you or your partner have any personal or family history of defects not previously discussed: No Do you have history of a complicated by anomaly, genetic condition, or demise: No Low Dose ASA Screening: Screening for low dose aspirin use for the prevention of pre-eclampsia: High risk factors: None Moderate risk ractors: Nulliparity OB Risk Screening: Completed, no positive findings documented. Marital Status:Committed relationship Partner: Name: Royce Mercado Age: 19 Occupation: [employer] Gender: Male PAST MEDICAL HISTORY Diagnosis Date Anemia Depression/anxiety Ganglion cyst of wrist, left Irregular menses PAST SURGICAL HISTORY Procedure Laterality Date DENTAL SURGERY HX 2015 ORTHOPEDICS SURGERY HX knee torn meniscus WRIST Left cyst on left wrist Current Outpatient Medications Medication Sig Dispense Refill VIT 10-IRON FUM-FOLIC ORAL Take by mouth. ondansetron orally disintegrating (ZOFRAN ODT) 4 mg disintegrating tablet EVERY 8 HOURS NEEDED as needed for Nausea No current facility-administered medications for this visit. Allergies As of Date: 11/14/2023 Allergen Noted Reaction LACTASE 06/26/2020 Other: See Comments Fully Assessed 11/14/2023 Does patient have penicillin allergy: No REVIEW OF SYSTEMS: GENERAL: Negative for: Fever or Chills HEENT: Negative for: Headache, Impaired Vision, Ringing in Ears, Nosebleeds NECK: Negative for: Swelling, Pain, Stiffness RES (more content not included)... [facility] 11-13-2023 Telephone encounter Note Attempted to call patient x2 with no answer. Left voicemail to return phone call [facility] 11-13-2023 Miscellaneous Notes Attempted to call patient x2 with no answer. Left voicemail to return phone call Called patient back and I will plan on completing OB intake questions at 1:00 today Attempted to call patient to go over new ob intake questions. No answer; left voicemail. Samra Fatima MA documented in this encounter [facility] 11-13-2023 Telephone encounter Note Called patient back and I will plan on completing OB intake questions at 1:00 today [facility] 11-13-2023 Telephone encounter Note Attempted to call patient to go over new ob intake questions. No answer; left voicemail. Samra Fatima MA [facility] 11-11-2023 Note HNO ID: [id number] Author: VITOR BROWER OD Service: ? Author Type: DETECTOR CAR OPERATOR Type: Progress Notes Filed: 11/11/2023 10:57 Note Text: 1. Myopia, bilateral A: Good vision, fit, and comfort in current contact lenses. P: Finalized and printed new spec and clrx. Educated pt on proper wear and care of contact lenses. Return to clinic in one year for contact lens evaluation or sooner with any problems. Did not dilate today due to - patient to call with any new flashes/floaters or changes in vision Vitor Brower, OMID November 11, 2023 10:56 AM [facility] 11-11-2023 History of Presen t illness Narrative 1. Myopia, bilateral A: Good vision, fit, and comfort in current contact lenses. P: Finalized and printed new spec and clrx. Educated pt on proper wear and care of contact lenses. Return to clinic in one year for contact lens evaluation or sooner with any problems. Did not dilate today due to - patient to call with any new flashes/floaters or changes in vision Vitor Brower OD November 11, 2023 10:56 AM documented in this encounter [facility] 11-05-2023 Note HNO ID: [id number] Author: JOSEPH HSU APRN.CLAUDIA Service: ? Author Type: Nurse Practitioner Type: Progress Notes Filed: 11/05/2023 12:15 Note Text: Patient triaged at [facility]. Here today with continued vomiting, seen in [facility] last week/remedies attempted, now having dizziness. Is 9 weeks . I will refer to ER. In no apparent distress at time of triage. [facility] 11-05-2023 History of Presen t illness Narrative Patient triaged at [facility]. Here today with continued vomiting, seen in [facility] last week/remedies attempted, now having dizziness. Is 9 weeks . I will refer to ER. In no apparent distress at time of triage. documented in this encounter [facility] 10-25-2023 Instructions Floyd Louise APRN.CNP - 10/25/2023 12:51 PM EDT Nausea and vomiting Doxylamine (Unisom Sleeptab) Vitamin B6 25mg three times per day in combination with doxylamine 12.5mg at bedtime to prevent nausea. Kathi extract 125-250mg every six hours. documented in this encounter [facility] 10-25-2023 Note HNO ID: [id number] Author: FLOYD LOUISE APRN.CNP Service: ? Author Type: Nurse Practitioner Type: Progress Notes Filed: 10/25/2023 13:20 Note Text: Subjective HPI Nontoxic-appearing 7-week female presents urgent care chief complaint nausea. Duration of symptoms last 2 to 3 days. Associated symptoms nausea. States nausea is worse in the morning. Has not been seen by CHILD CARE NURSE at this point. Has tried some OTC medications. They have not helped. Denies any abdominal pain vomiting vaginal discharge or fever body aches chills. Past medical history prescription medications allergies reviewed. .Patient presents with: Nausea: x 3 days, 7 weeks PAST MEDICAL HISTORY Diagnosis Date Ganglion cyst of wrist, left PAST SURGICAL HISTORY Procedure Laterality Date DENTAL SURGERY HX 2015 ORTHOPEDICS SURGERY HX WRIST Left cyst on left wrist ALLERGIES Patient has no known allergies. MEDICATIONS No prescriptions on file. FAMILY HISTORY Problem Relation Age of Onset No Known Problems Mother No Known Problems Father Heart Maternal Grandmother Hypertension Maternal Grandmother Diabetes Maternal Grandmother Hypertension Paternal Grandmother other (heart) Paternal Grandmother Stroke Paternal Grandfather Social History Tobacco Use Smoking status: Never Smokeless tobacco: Never Vaping Use Vaping Use: Never used Substance Use Topics Alcohol use: No Drug use: No BP 128/72 Pulse 98 Temp 36.5 ?C (97.7 ?F) Resp 16 Wt 59.5 kg (131 lb 2.8 oz) LMP 04/02/2023 (Approximate) SpO2 99% Review of Systems Constitutional: Negative for chills, fever and malaise/fatigue. HENT: Negative for congestion, ear discharge, ear pain, sinus pain and sore throat. Eyes: Negative for blurred vision, pain, discharge and redness. Respiratory: Negative for cough, hemoptysis, sputum production, shortness of breath, wheezing and stridor. Cardiovascular: Negative for chest pain. Gastrointestinal: Positive for nausea. Negative for abdominal pain, diarrhea and vomiting. Musculoskeletal: Negative for myalgias. Skin: Negative for itching and rash. Neurological: Negative for dizziness and headaches. Objective Physical Exam Constitutional: General: She is not in acute distress. Appearance: She is not diaphoretic. HENT: Head: Normocephalic. Jaw: No trismus, tenderness, swelling or pain on movement. Mouth/Throat: Mouth: Mucous membranes are moist. Pharynx: Oropharynx is clear. Uvula midline. No pharyngeal swelling, oropharyngeal exudate, posterior oropharyngeal erythema or uvula swelling. Eyes: Conjunctiva/sclera: Conjunctivae normal. [...] to person, place, and time. ASSESSMENT/PLAN: 1. Nausea - ICD9: 787.02, ICD10: R11.0 Diagnosed with nausea. No abdominal pain and vaginal discharge. No evidence of dehydration. Will be established with CHILD CARE NURSE at the end of today's visit. Recommended using vitamin B6 25 mg 3 times a day. If that does not help with nausea she can add in Unisom 12.5 mg at bedtime. Patient was educated on supportive therapies. Patient [...] of care. This note was generated using So[employer]iz[employer] software. It may contain errors in wording, punctuation, or spelling. Floyd Louise APRN.[facility] 10-25-2023 History of Presen t illness Narrative Subjective HPI Nontoxic-appearing 7-week female presents urgent care chief complaint nausea. Duration of symptoms last 2 to 3 days. Associated symptoms nausea. States nausea is worse in the morning. Has not been seen by CHILD CARE NURSE at this point. Has tried some OTC medications. They have not helped. Denies any abdominal pain vomiting vaginal discharge or fever body aches chills. Past medical history prescription medications allergies reviewed. .Patient presents with: Nausea: x 3 days, 7 weeks PAST MEDICAL HISTORY Diagnosis Date Ganglion cyst of wrist, left PAST SURGICAL HISTORY Procedure Laterality Date DENTAL SURGERY HX 2015 ORTHOPEDICS SURGERY HX WRIST Left cyst on left wrist ALLERGIES Patient has no known allergies. MEDICATIONS No prescriptions on file. FAMILY HISTORY Problem Relation Age of Onset No Known Problems Mother No Known Problems Father Heart Maternal Grandmother Hypertension Maternal Grandmother Diabetes Maternal Grandmother Hypertension Paternal Grandmother other (heart) Paternal Grandmother Stroke Paternal Grandfather Social History Tobacco Use Smoking status: Never Smokeless tobacco: Never Vaping Use Vaping Use: Never used Substance Use Topics Alcohol use: No Drug use: No BP 128/72 Pulse 98 Temp 36.5 C (97.7 F) Resp 16 Wt 59.5 kg (131 lb 2.8 oz) LMP 04/02/2023 (Approximate) SpO2 99% Review of Systems Constitutional: Negative for chills, fever and malaise/fatigue. HENT: Negative for congestion, ear discharge, ear pain, sinus pain and sore throat. Eyes: Negative for blurred vision, pain, discharge and redness. Respiratory: Negative for cough, hemoptysis, sputum production, shortness of breath, wheezing and stridor. Cardiovascular: Negative for chest pain. Gastrointestinal: Positive for nausea. Negative for abdominal pain, diarrhea and vomiting. Musculoskeletal: Negative for myalgias. Skin: Negative for itching and rash. Neurological: Negative for dizziness and headaches. Objective Physical Exam Constitutional: General: She is not in acute distress. Appearance: She is not diaphoretic. HENT: Head: Normocephalic. Jaw: No trismus, tenderness, swelling or pain on movement. Mouth/Throat: Mouth: Mucous membranes are moist. Pharynx: Oropharynx is clear. Uvula midline. No pharyngeal swelling, oropharyngeal exudate, posterior oropharyngeal erythema or uvula swelling. Eyes: Conjunctiva/sclera: Conjunctivae normal. [...] to person, place, and time. ASSESSMENT/PLAN: 1. Nausea - ICD9: 787.02, ICD10: R11.0 Diagnosed with nausea. No abdominal pain and vaginal discharge. No evidence of dehydration. Will be established with CHILD CARE NURSE at the end of today's visit. Recommended using vitamin B6 25 mg 3 times a day. If that does not help with nausea she can add in Unisom 12.5 mg at bedtime. Patient was educated on supportive therapies. Patient [...] of care. This note was generated using SoBiz10 software. It may contain errors in wording, punctuation, or spelling. Floyd Louise APRN.CLAUDIA documented in this encounter [facility] 09-02-2023 History of Presen t illness Narrative Program_ID:[id number] Access Code: [email or web address] URL: [email or web address] Date: 09-02-2023 Prepared By: Zain Kearney Program Notes Exercises - Single Leg Bridge - 1 x daily - 7 x weekly - 4 sets - 10 reps - Supine Isometric Hamstring Set - 1 x daily - 7 x weekly - 4 sets - 10 reps - Squat - 1 x daily - 7 x weekly - 4 sets - 10 reps - Standing Hamstring Curl with Resistance - 1 x daily - 7 x weekly - 4 sets - 10 reps - Lateral Step Down - 1 x daily - 7 x weekly - 4 sets - 10 reps - Sidelying Hip Abduction - 1-2 x daily - 7 x weekly - 2 sets - 10 reps - Sidelying Bent Knee Hip Flexion - 1-2 x daily - 7 x weekly - 2 sets - 10 reps - Sidelying Hip Circles - 1-2 x daily - 7 x weekly - 2 sets - 10 reps Episode Visit Count: 3 Therapist That Will Accept/Oversee The Plan Of Care: Zain Kearney PT Start of Care Date: 08/19/23 Onset Date: 08/18/22 Patient Identified by Name and Date of : Yes REHABILITATION AND SPORTS THERAPY PHYSICAL THERAPY TREATMENT NOTE ASSESSMENT: Beatris Fletcher tolerated the session with fatigue and expected muscle soreness. She demonstrated improvements in form with squats . The patient will continue to benefit from ongoing skilled physical therapy to progress toward set goals. PLAN FOR NEXT VISIT: Asses response to SL hip abduction series SUBJECTIVE: Pt reports that her L knee is feeling good today, yesterday it was hurting. Pt states that she was going up and down a lot of stairs along with completing her exercises and thinks thats what could have made her L knee hurt. Pt states that heel taps hurt some, so she didn't do as many reps. Pain: Pain Pain Level: ( It hurts a little bit ) Pain Location: Knee - Left OBJECTIVE MEASURES WITH LEVEL OF FUNCTION: Form observed throughout session TREATMENT: Therapeutic Exercise: 1: *Clamshells x10, 2x10 with GTB 2x10 (GTB vended for HEP) 2: *SL hip abduction series 2x10 each motion 3: Quadruped hip ER on LLE only 2x10 4: SL bridge with strap 2 x 10 5: Sidestepping with GTB 2x10 ft 6: Sidestepping with ER with GTB 2x10 7: Hip hikes on 4 inch step 2x10 8: Lunges on BOSU 2x10 B 9: Squats 2x10 Skilled Intervention: Patient was educated in proper exercise technique and purpose for exercises. Reviewed and educated patient on additions/changes for home exercise program as above (*). Skilled judgment was used in selection of appropriate interventions. Provided written instruction for home exercise program to facilitate proper performance and compliance. Correct performance of therapeutic exercises was facilitated with verbal and visual cuing. Billing Therapeutic Exercise Treatment Minutes: 43 Skilled Treatment Time Minutes (timed and untimed codes): 43 Total Session Time (minutes): 43 Session Start Time : 1358 Session Stop Time : 1441 DUARTE Ventura PT documented in this encounter [facility] 09-02-2023 Note HNO ID: [id number] Author: ZAIN KEARNEY PT Service: ? Author Type: Physical Therapist Type: Progress Notes Filed: 09/02/2023 19:16 Note Text: Episode Visit Count: 3 Therapist That Will Accept/Oversee The Plan Of Care: Zain Kearney PT Start of Care Date: 08/19/23 Onset Date: 08/18/22 Patient Identified by Name and Date of : Yes REHABILITATION AND SPORTS THERAPY PHYSICAL THERAPY TREATMENT NOTE ASSESSMENT: Beatris Fletcher tolerated the session with fatigue and expected muscle soreness. She demonstrated improvements in form with squats . The patient will continue to benefit from ongoing skilled physical therapy to progress toward set goals. PLAN FOR NEXT VISIT: Asses response to SL hip abduction series SUBJECTIVE: Pt reports that her L knee is feeling good today, yesterday it was hurting. Pt states that she was going up and down a lot of stairs along with completing her exercises and thinks thats what could have made her L knee hurt. Pt states that heel taps hurt some, so she didn't do as many reps. Pain: Pain Pain Level: ( It hurts a little bit ) Pain Location: Knee - Left OBJECTIVE MEASURES WITH LEVEL OF FUNCTION: Form observed throughout session TREATMENT: Therapeutic Exercise: 1: *Clamshells x10, 2x10 with GTB 2x10 (GTB vended for HEP) 2: *SL hip abduction series 2x10 each motion 3: Quadruped hip ER on LLE only 2x10 4: SL bridge with strap 2 x 10 5: Sidestepping with GTB 2x10 ft 6: Sidestepping with ER with GTB 2x10 7: Hip hikes on 4 inch step 2x10 8: Lunges on BOSU 2x10 B 9: Squats 2x10 Skilled Intervention: Patient was educated in proper exercise technique and purpose for exercises. Reviewed and educated patient on additions/changes for home exercise program as above (*). Skilled judgment was used in selection of appropriate interventions. Provided written instruction for home exercise program to facilitate proper performance and compliance. Correct performance of therapeutic exercises was facilitated with verbal and visual cuing. Billing Therapeutic Exercise Treatment Minutes: 43 Skilled Treatment Time Minutes (timed and untimed codes): 43 Total Session Time (minutes): 43 Session Start Time : 1358 Session Stop Time : 1441 Raysa Epperson, DUARTE Kearney, PT [facility] 08-29-2023 History of Presen t illness Narrative Radiology Service Progress Note PATIENT NAME: Beatris Fletcher DATE OF SERVICE: August 29, 2023 TIME: 10:00 AM PATIENT IDENTITY VERIFICATION COMPLETED USING TWO (2) IDENTIFIERS: Name and Date of confirmed by patient verbally. FALL SCREENING: Has the patient had 2 falls in the last year or 1 fall with injury or currently using an Ambulatory Assistive Device (Walker, Cane, Wheelchair, Crutches, etc.)? No PATIENT GENDER DATA: Female. status: : No status: NO. PATIENT RELEVANT IMPLANT DATA REVIEWED: Yes PATIENT PRESENTS WITH AN IMPLANTABLE OR ATTACHED AUTOMOTIVE SERVICE CONSULTANT: No RADIOLOGY DEPARTMENT: MR; Exam(s) Completed: Lower MSK: Knee, left PERIPHERAL IV DATA: Not applicable SIGNED BY: RT Dorys(Arthur) August 29, 2023 10:00 AM documented in this encounter [facility] 08-29-2023 Note HNO ID: [id number] Author: JENNIFER MENON RT(R) Service: ? Author Type: Technologist Type: Progress Notes Filed: 08/29/2023 10:00 Note Text: Radiology Service Progress Note PATIENT NAME: Beatris Fletcher DATE OF SERVICE: August 29, 2023 TIME: 10:00 AM PATIENT IDENTITY VERIFICATION COMPLETED USING TWO (2) IDENTIFIERS: Name and Date of confirmed by patient verbally. FALL SCREENING: Has the patient had 2 falls in the last year or 1 fall with injury or currently using an Ambulatory Assistive Device (Walker, Cane, Wheelchair, Crutches, etc.)? No PATIENT GENDER DATA: Female. status: : No status: NO. PATIENT RELEVANT IMPLANT DATA REVIEWED: Yes PATIENT PRESENTS WITH AN IMPLANTABLE OR ATTACHED AUTOMOTIVE SERVICE CONSULTANT: No RADIOLOGY DEPARTMENT: MR; Exam(s) Completed: Lower MSK: Knee, left PERIPHERAL IV DATA: Not applicable SIGNED BY: RT Dorys(Arthur) August 29, 2023 10:00 AM [facility] 08-27-2023 Note HNO ID: [id number] Author: ZHANNA HAZEL APRN.DIRECTOR CUSTOMER Service: ? Author Type: Nurse Practitioner Type: Progress Notes Filed: 08/27/2023 16:54 Note Text: Subjective Patient came in with complaints of nausea and vomiting. Patient says it only happened 1 time. Patient says has been a vegetarian for a long time and had some turkey this morning. Patient says she thinks it just upset her stomach. Patient denies any other symptoms at this time. Patient says she is feeling better just a little bit queasy. The history is provided by the patient. No language assistant was used. Review of Systems Constitutional: Negative. Skin: Negative. Objective Physical Exam Constitutional: Appearance: Normal appearance. Pulmonary: Effort: Pulmonary effort is normal. Abdominal: General: Abdomen is flat. Palpations: Abdomen is soft. Tenderness: There is no abdominal tenderness. Neurological: Mental Status: She is alert. PAST MEDICAL HISTORY Diagnosis Date Ganglion cyst of wrist, left PAST SURGICAL HISTORY Procedure Laterality Date DENTAL SURGERY HX 2015 ORTHOPEDICS SURGERY HX WRIST Left cyst on left wrist ALLERGIES Patient has no known allergies. MEDICATIONS No prescriptions on file. FAMILY HISTORY Problem Relation Age of Onset No Known Problems Mother No Known Problems Father Heart Maternal Grandmother Hypertension Maternal Grandmother Diabetes Maternal Grandmother Hypertension Paternal Grandmother other (heart) Paternal Grandmother Stroke Paternal Grandfather Social History Tobacco Use Smoking status: Never Smokeless tobacco: Never Vaping Use Vaping Use: Never used Substance Use Topics Alcohol use: No Drug use: No ASSESSMENT/PLAN: 1. Nausea - ICD9: 787.02, ICD10: R11.0 Patient will follow-up with signs and symptoms persist. Patient was okay with this care plan. Zhanna Hazel APRN.[facility] 08-27-2023 History of Presen t illness Narrative Subjective Patient came in with complaints of nausea and vomiting. Patient says it only happened 1 time. Patient says has been a vegetarian for a long time and had some turkey this morning. Patient says she thinks it just upset her stomach. Patient denies any other symptoms at this time. Patient says she is feeling better just a little bit queasy. The history is provided by the patient. No language assistant was used. Review of Systems Constitutional: Negative. Skin: Negative. Objective Physical Exam Constitutional: Appearance: Normal appearance. Pulmonary: Effort: Pulmonary effort is normal. Abdominal: General: Abdomen is flat. Palpations: Abdomen is soft. Tenderness: There is no abdominal tenderness. Neurological: Mental Status: She is alert. PAST MEDICAL HISTORY Diagnosis Date Ganglion cyst of wrist, left PAST SURGICAL HISTORY Procedure Laterality Date DENTAL SURGERY HX 2015 ORTHOPEDICS SURGERY HX WRIST Left cyst on left wrist ALLERGIES Patient has no known allergies. MEDICATIONS No prescriptions on file. FAMILY HISTORY Problem Relation Age of Onset No Known Problems Mother No Known Problems Father Heart Maternal Grandmother Hypertension Maternal Grandmother Diabetes Maternal Grandmother Hypertension Paternal Grandmother other (heart) Paternal Grandmother Stroke Paternal Grandfather Social History Tobacco Use Smoking status: Never Smokeless tobacco: Never Vaping Use Vaping Use: Never used Substance Use Topics Alcohol use: No Drug use: No ASSESSMENT/PLAN: 1. Nausea - ICD9: 787.02, ICD10: R11.0 Patient will follow-up with signs and symptoms persist. Patient was okay with this care plan. Zhanna Hazel APRN.CLAUDIA documented in this encounter [facility] 08-26-2023 History of Presen t illness Narrative Program_ID:[id number] Access Code: [email or web address] URL: [email or web address] Date: 08-26-2023 Prepared By: Zain Kearney Program Notes Exercises - Single Leg Bridge - 1 x daily - 7 x weekly - 4 sets - 10 reps - Supine Isometric Hamstring Set - 1 x daily - 7 x weekly - 4 sets - 10 reps - Squat - 1 x daily - 7 x weekly - 4 sets - 10 reps - Standing Hamstring Curl with Resistance - 1 x daily - 7 x weekly - 4 sets - 10 reps - Lateral Step Down - 1 x daily - 7 x weekly - 4 sets - 10 reps Episode Visit Count: 2 Therapist That Will Accept/Oversee The Plan Of Care: Zain Kearney PT Start of Care Date: 08/19/23 Onset Date: 08/18/22 Patient Identified by Name and Date of : Yes REHABILITATION AND SPORTS THERAPY PHYSICAL THERAPY TREATMENT NOTE ASSESSMENT: Beatris Fletcher tolerated the session with expected muscle soreness. She demonstrated better tolerance to squatting exercise with use of knee valgus block. The patient will continue to benefit from ongoing skilled physical therapy to progress toward set goals. PLAN FOR NEXT VISIT: Assess ER strength and assess reaction to HEP changes. SUBJECTIVE: Doing well this morning. Doing the exercises when she can. Pain: Pain Pain Level: 4 Pain Location: Knee - Left OBJECTIVE MEASURES WITH LEVEL OF FUNCTION: Excessive knee valgus with squatting due to flat feet and poor quad control TREATMENT: Therapeutic Exercise: 1: Sidelying hip abduction x 10 2: Sidelying hip abduction 1# 2 x 10 3: Resisted sidestepping GTB 15 feet x 2, x 3 sets 4: SL bridge with strap 2 x 10 Skilled Intervention: Patient was educated in proper exercise technique and purpose for exercises. Provided written instruction for home exercise program to facilitate proper performance and compliance. Correct performance of therapeutic exercises was facilitated with verbal and visual cuing. Neuromuscular Re-Education: 1: Squatting using ball between the knees to facilitate improved quad control 3 x 10 2: 4 heel taps with biofeedback to facilitate improved quad control Skilled Intervention: Skilled judgment used to assess appropriate program for balance and coordination activity. Education and demonstration for posture and positioning for tone management. Billing Therapeutic Exercise Treatment Minutes: 23 Neuromuscular Re-Education Treatment Minutes: 16 Skilled Treatment Time Minutes (timed and untimed codes): 39 Total Session Time (minutes): 39 Session Start Time : 1416 Session Stop Time : 1455 Zain Kearney PT documented in this encounter [facility] 08-26-2023 Note HNO ID: [id number] Author: ZAIN KEARNEY PT Service: ? Author Type: Physical Therapist Type: Progress Notes Filed: 08/26/2023 14:58 Note Text: Episode Visit Count: 2 Therapist That Will Accept/Oversee The Plan Of Care: Zain Kearney PT Start of Care Date: 08/19/23 Onset Date: 08/18/22 Patient Identified by Name and Date of : Yes REHABILITATION AND SPORTS THERAPY PHYSICAL THERAPY TREATMENT NOTE ASSESSMENT: Beatris Fletcher tolerated the session with expected muscle soreness. She demonstrated better tolerance to squatting exercise with use of knee valgus block. The patient will continue to benefit from ongoing skilled physical therapy to progress toward set goals. PLAN FOR NEXT VISIT: Assess ER strength and assess reaction to HEP changes. SUBJECTIVE: Doing well this morning. Doing the exercises when she can. Pain: Pain Pain Level: 4 Pain Location: Knee - Left OBJECTIVE MEASURES WITH LEVEL OF FUNCTION: Excessive knee valgus with squatting due to flat feet and poor quad control TREATMENT: Therapeutic Exercise: 1: Sidelying hip abduction x 10 2: Sidelying hip abduction 1# 2 x 10 3: Resisted sidestepping GTB 15 feet x 2, x 3 sets 4: SL bridge with strap 2 x 10 Skilled Intervention: Patient was educated in proper exercise technique and purpose for exercises. Provided written instruction for home exercise program to facilitate proper performance and compliance. Correct performance of therapeutic exercises was facilitated with verbal and visual cuing. Neuromuscular Re-Education: 1: Squatting using ball between the knees to facilitate improved quad control 3 x 10 2: 4 heel taps with biofeedback to facilitate improved quad control Skilled Intervention: Skilled judgment used to assess appropriate program for balance and coordination activity. Education and demonstration for posture and positioning for tone management. Billing Therapeutic Exercise Treatment Minutes: 23 Neuromuscular Re-Education Treatment Minutes: 16 Skilled Treatment Time Minutes (timed and untimed codes): 39 Total Session Time (minutes): 39 Session Start Time : 1416 Session Stop Time : 1455 Zain Kearney PT [facility] 08-19-2023 History of Presen t illness Narrative Program_ID:[id number] Access Code: [email or web address] URL: [email or web address] Date: 08-19-2023 Prepared By: Zain Kearney Program Notes Exercises - Single Leg Bridge - 1 x daily - 7 x weekly - 4 sets - 10 reps - Supine Isometric Hamstring Set - 1 x daily - 7 x weekly - 4 sets - 10 reps Images from the original note were not included. Episode Visit Count: 1 Therapist That Will Accept/Oversee The Plan Of Care: Zain Kearney PT Start of Care Date: 08/19/23 Onset Date: 08/18/22 Patient Identified by Name and Date of : Yes REHABILITATION AND SPORTS THERAPY PHYSICAL THERAPY EVALUATION PLAN OF CARE: Assessment: Beatris Fletcher presents with chief complaint of L knee pain with history of MPFL reconstruction and meniscal repair that interferes with standing, walking, stair negotiation . She presents with impairments in gait, independence in exercise, strength, and symptom management. PROMIS (Patient-Reported Outcomes Measurement Information System) scores were reviewed and identified as a rehabilitation concern. Prognosis for therapy is Good due to: current objective clinical presentation, good overall health status, within-session changes . Most pertinent findings are weakness of the gluteus medius, miles, and hamstrings of the LLE. She will benefit from skilled therapy services to meet the goals established for this plan of care as noted below. Goals for Episode of Care: created on 08/19/23 through 11/11/23 [place] in home exercise program. Perform stairs without pain. Pt will report decreased pain with work duties in 8 weeks or less Increased strength of the L gluteals to 5/5 for improved knee stability and decreased pain with work duties and gait Pt will demo HS strength of 5/5 for improved knee stability and decreased pain Patient Goals: Reduce the pain Planned Interventions, Frequency, and Duration: Current Frequency: 1x/week Duration: 4 weeks Total Number of Visits Planned: 4 Planned Treatment Interventions: Therapeutic exercise (97444), Neuromuscular re-education (04670), Manual therapy (76354), Gait Training (32803), Patient/Family/Caregiver Education PLAN FOR NEXT VISIT: Assess hip external rotator strength Patient demonstrates good understanding of plan of care and treatment. The above goals and plan of care were discussed and agreed upon by patient/family. SUBJECTIVE: Knee pain. Repaired meniscus last December. In the morning the pain is worse. Standing at work can cause pain. Patient Goals: Reduce the pain Functional Limitations: standing, walking, stair negotiation Prior Level of Function: Independent without limitations Intake Information: Prescription present Previous Treatment: Surgery , Physical Therapy Pain: Pain Pain Level: 5 Pain Location: Knee - Left Description: Sharp (Pinching) PROMIS Scales 08/19/2023 Higher is Better Phys Func - Score 40 (mild dysfunction) Phys Func - Percentile 16 Self-Eff Symptom - Score 42 (Average) Self-Eff Symptom - Percentile 21 T-scores: mean of general population = 50. [...] FUNCTION: Knee Observations L Knee Palpation Tenderness: Medial retinaculum LE AROM R LE AROM: WNL L LE AROM: WNL Lumbar Spine Evaluated?: Yes LE Flexibility Flexibility: Quadriceps Flexibility R Quadriceps Flexibility: WNL L Quadriceps Flexibility: WNL LE Joint Mobility R Patellar Mobility: WNL L Patellar Mobility: WNL LE Strength L Hip Extension: 3+/5 L Hip Flexion (L2): 5/5 L Hip ABduction: 4/5 L Knee Extension (L3): 4+/5 L Knee Flexion: 3+/5 L Ankle Dorsiflexion (L4): 5/5 Gait Gait Observation: Pt demos excessive ankle pronation due to flat feet Education: Education Learning Preferences: Demonstration, Explanation, Performance, Printed Materials Barriers: None Learning/educational needs: Home exercise program, Plan of Care Education Provided: Yes, see treatment interventions for education provided Education Provided To: Patient Education Mode/Type: Demonstration, Explanation/Discussion, Literature/Printed Materials, Performance Response to Education/Teach Back: States/Identifies, Return Demonstration TREATMENT: PT Treatment Interventions: Therapeutic Exercise Evaluation Therapeutic Exercise: 1: Discussed purpose of the HEP and handout provided. 2: Sidelying hip abduction x 10 3: Knee curl iso x 10 holding 3 sec 4: Prone hip ext knee bent 90 x 10 (too easy per pt report) 5: SL bridge with strap around LLE x 10 Skilled Intervention: Patient was educated in proper exercise technique and purpose for exercises. Provided written instruction for home exercise program to facilitate proper performance and compliance. Correct performance of therapeutic exercises was facilitated with verbal and visual cuing. Billing * Evaluation Low Complexity: 1 Unit Therapeutic Exercise Treatment Minutes: 25 Skilled Treatment Time Minutes (timed and untimed codes): 47 Total Session Time (minutes): 47 Session Start Time : 1015 Session Stop Time : 1102 Zain Kearney PT documented in this encounter [facility] 08-19-2023 Note HNO ID: [id number] Author: ZAIN KEARNEY PT Service: ? Author Type: Physical Therapist Type: Progress Notes Filed: 08/19/2023 11:28 Note Text: Episode Visit Count: 1 Therapist That Will Accept/Oversee The Plan Of Care: Zain Kearney PT Start of Care Date: 08/19/23 Onset Date: 08/18/22 Patient Identified by Name and Date of : Yes REHABILITATION AND SPORTS THERAPY PHYSICAL THERAPY EVALUATION PLAN OF CARE: Assessment: Beatris Fletcher presents with chief complaint of L knee pain with history of MPFL reconstruction and meniscal repair that interferes with standing, walking, stair negotiation . She presents with impairments in gait, independence in exercise, strength, and symptom management. PROMIS? (Patient-Reported Outcomes Measurement Information System) scores were reviewed and identified as a rehabilitation concern. Prognosis for therapy is Good due to: current objective clinical presentation, good overall health status, within-session changes . Most pertinent findings are weakness of the gluteus medius, miles, and hamstrings of the LLE. She will benefit from skilled therapy services to meet the goals established for this plan of care as noted below. Goals for Episode of Care: created on 08/19/23 through 11/11/23 [place] in home exercise program. Perform stairs without pain. Pt will report decreased pain with work duties in 8 weeks or less Increased strength of the L gluteals to 5/5 for improved knee stability and decreased pain with work duties and gait Pt will demo HS strength of 5/5 for improved knee stability and decreased pain Patient Goals: Reduce the pain Planned Interventions, Frequency, and Duration: Current Frequency: 1x/week Duration: 4 weeks Total Number of Visits Planned: 4 Planned Treatment Interventions: Therapeutic exercise (48234), Neuromuscular re-education (56963), Manual therapy (84212), Gait Training (99349), Patient/Family/Caregiver Education PLAN FOR NEXT VISIT: Assess hip external rotator strength Patient demonstrates good understanding of plan of care and treatment. The above goals and plan of care were discussed and agreed upon by patient/family. SUBJECTIVE: Knee pain. Repaired meniscus last December. In the morning the pain is worse. Standing at work can cause pain. Patient Goals: Reduce the pain Functional Limitations: standing, walking, stair negotiation Prior Level of Function: Independent without limitations Intake Information: Prescription present Previous Treatment: Surgery , Physical Therapy Pain: Pain Pain Level: 5 Pain Location: Knee - Left Description: Sharp (Pinching) PROMIS Scales 08/19/2023 Higher is Better Phys Func - Score 40 (mild dysfunction) Phys Func - Percentile 16 Self-Eff Symptom - Score 42 (Average) Self-Eff Symptom - Percentile 21 T-scores: mean of general population = 50. [...] FUNCTION: Knee Observations L Knee Palpation Tenderness: Medial retinaculum LE AROM R LE AROM: WNL L LE AROM: WNL Lumbar Spine Evaluated?: Yes LE Flexibility Flexibility: Quadriceps Flexibility R Quadriceps Flexibility: WNL L Quadriceps Flexibility: WNL LE Joint Mobility R Patellar Mobility: WNL L Patellar Mobility: WNL LE Strength L Hip Extension: 3+/5 L Hip Flexion (L2): 5/5 L Hip ABduction: 4/5 L Knee Extension (L3): 4+/5 L Knee Flexion: 3+/5 L Ankle Dorsiflexion (L4): 5/5 Gait Gait Observation: Pt demos excessive ankle pronation due to flat feet Education: Education Learning Preferences: Demonstration, Explanation, Performance, Printed Materials Barriers: None Learning/educational needs: Home exercise program, Plan of Care Education Provided: Yes, see treatment interventions for education provided Education Provided To: Patient Education Mode/Type: Demonstration, Explanation/Discussion, Literature/Printed Materials, Performance Response to Education/Teach Back: States/Identifies, Return Demonstration TREATMENT: PT Treatment Interventions: Therapeutic Exercise Evaluation Therapeutic Exercise: 1: Discussed purpose of the HEP and handout provided. 2: Sidelying hip abduction x 10 3: Knee curl iso x 10 holding 3 sec 4: Prone hip ext knee bent 90 x 10 (too easy per pt report) 5: SL bridge with strap around LLE x 10 Skilled Intervention: Patient was educated in proper exercise technique and purpose for exercises. Provided written instruction for home exercise program to facilitate proper performance and compliance. Correct performance of therapeutic exercises was facilitated with verbal and visual c (more content not included)... [facility] 07-31-2023 Note HNO ID: [id number] Author: MAYDA SOLARES DO Service: ? Author Type: Physician Type: Progress Notes Filed: 08/01/2023 14:33 Note Text: Follow Up Visit Chief Complaint Beatris Fletcher is a 17 year old female who presents today for follow up office visit. Patient presents with: Left Knee - Established Patient, Pain History of Present Illness PAIN EVALUATION 07/31/2023 1433 Pain Level: 8 Pain Location: Knee-Left Description: Sharp;Shooting Duration Amount of Time: 5 Duration Units: Months Frequency: Intermittent Intervention/Comfort measure: Massage;Other: See comment stretch HPI: Beatris Fletcher is a 17 year old female for a follow up visit Left knee pain. She is s/p left knee arthroscopy, lateral femoral condyle chondroplasty, loose body removal, open mpfl reconstruction with allograft Pain history is noted as above. Is there any overall improvement in your condition? No Any new injury, since being seen last: [...] of consciousness or full loss of consciousness. No current outpatient medications on file. No current facility-administered medications for this visit. Physical Exam Vitals: [facility] 04/02/2023 Psych: Pleasant, good affect and mood General [...] rest Rheumatologic: Joint deformities: left knee pain Right Knee Exam Right knee exam is normal. Muscle Strength The patient has normal right knee strength. Tenderness The patient is experiencing no tenderness. Range of Motion Extension: normal Flexion: normal Tests [place]: Anterior - negative Posterior - negative Drawer: Anterior - negative Posterior - negative Other Erythema: absent Sensation: normal Pulse: present Swelling: none Left Knee Exam Tenderness The patient is experiencing tenderness in the medial retinaculum and lateral retinaculum. Range of Motion Extension: normal Flexion: normal Tests [place]: Anterior - negative Posterior - negative Drawer: Anterior - negative Posterior - negative Other Erythema: absent Sensation: normal Pulse: present Swelling: none Comments: Neg homans bilaterally Last XR Knee - Impression Only XR KNEE GENERAL 4V AP BOTH/PA BOTH/LAT/MERC LEFT Exam End: 07/31/2023 2:31 PM (Final result) Impression: IMPRESSION: 1.6 cm presumably chronic loose osseous body in the anterolateral aspect of the knee joint space, with a small knee joint effusion. Stereoplotter Operator: CHAPARRITA Transcribe Date/Time: Jul 31 2023 2:39P ... Assessment and Plan Radiographs: I have independently reviewed films and my findings are the same. and I have reviewed the images with the patient and family. Impression: Encounter Diagnosis ICD-10-CM 1. S/P knee surgery Z98.890 CONSULT TO PHYSICAL THERAPY Today, in detail, through a thorough evaluation, we discussed possible etiologies of pain and our plans for further diagnostic and therapeutic interventions. We discussed strategies for decreasing pain and improving strength, stability and motion. Patient's questions were answered in detailed. Patient verbalizes understanding and agrees with the treatment plan as discussed. Consult PT Brace as needed If not better in 6 weeks, MRI of left knee Gave injection option as well MRI of left knee to eval loose body Patient aware and in agreement of plan. All questions answered. Mayda Solaers D.O. M.P.H. [facility] 07-31-2023 History of Presen t illness Narrative Images from the original note were not included. Follow Up Visit Chief Complaint Beatris Fletcher is a 17 year old female who presents today for follow up office visit. Patient presents with: Left Knee - Established Patient, Pain History of Present Illness PAIN EVALUATION 07/31/2023 1433 Pain Level: 8 Pain Location: Knee-Left Description: Sharp;Shooting Duration Amount of Time: 5 Duration Units: Months Frequency: Intermittent Intervention/Comfort measure: Massage;Other: See comment stretch HPI: Beatris Fletcher is a 17 year old female for a follow up visit Left knee pain. She is s/p left knee arthroscopy, lateral femoral condyle chondroplasty, loose body removal, open mpfl reconstruction with allograft Pain history is noted as above. Is there any overall improvement in your condition? No Any new injury, since being seen last: [...] of consciousness or full loss of consciousness. No current outpatient medications on file. No current facility-administered medications for this visit. Physical Exam Vitals: [facility] 04/02/2023 Psych: Pleasant, good affect and mood General [...] rest Rheumatologic: Joint deformities: left knee pain Right Knee Exam Right knee exam is normal. Muscle Strength The patient has normal right knee strength. Tenderness The patient is experiencing no tenderness. Range of Motion Extension: normal Flexion: normal Tests Savanna: Anterior - negative Posterior - negative Drawer: Anterior - negative Posterior - negative Other Erythema: absent Sensation: normal Pulse: present Swelling: none Left Knee Exam Tenderness The patient is experiencing tenderness in the medial retinaculum and lateral retinaculum. Range of Motion Extension: normal Flexion: normal Tests Savanna: Anterior - negative Posterior - negative Drawer: Anterior - negative Posterior - negative Other Erythema: absent Sensation: normal Pulse: present Swelling: none Comments: Neg homans bilaterally Last XR Knee - Impression Only XR KNEE GENERAL 4V AP BOTH/PA BOTH/LAT/MERC LEFT Exam End: 07/31/2023 2:31 PM (Final result) Impression: IMPRESSION: 1.6 cm presumably chronic loose osseous body in the anterolateral aspect of the knee joint space, with a small knee joint effusion. Stereoplotter Operator: CHAPARRITA Transcribe Date/Time: Jul 31 2023 2:39P ... Assessment and Plan Radiographs: I have independently reviewed films and my findings are the same. and I have reviewed the images with the patient and family. Impression: Encounter Diagnosis ICD-10-CM 1. S/P knee surgery Z98.890 CONSULT TO PHYSICAL THERAPY Today, in detail, through a thorough evaluation, we discussed possible etiologies of pain and our plans for further diagnostic and therapeutic interventions. We discussed strategies for decreasing pain and improving strength, stability and motion. Patient's questions were answered in detailed. Patient verbalizes understanding and agrees with the treatment plan as discussed. Consult PT Brace as needed If not better in 6 weeks, MRI of left knee Gave injection option as well MRI of left knee to eval loose body Patient aware and in agreement of plan. All questions answered. Mayda Solares D.O. M.P.HBreanne documented in this encounter [facility] 07-31-2023 History of Presen t illness Narrative Radiology Service Progress Note PATIENT NAME: Beatris Fletcher DATE OF SERVICE: July 31, 2023 TIME: 2:21 PM PATIENT IDENTITY VERIFICATION COMPLETED USING TWO (2) IDENTIFIERS: Name and Date of confirmed by patient verbally. FALL SCREENING: Has the patient had 2 falls in the last year or 1 fall with injury or currently using an Ambulatory Assistive Device (Walker, Cane, Wheelchair, Crutches, etc.)? No PATIENT GENDER DATA: Female. status: : No status: NO. PATIENT RELEVANT IMPLANT DATA REVIEWED: Not Applicable PATIENT PRESENTS WITH AN IMPLANTABLE OR ATTACHED AUTOMOTIVE SERVICE CONSULTANT: No RADIOLOGY DEPARTMENT: General X-ray: Exam(s) Completed: Lower Extremity X-Ray(s): Knee, AP / Lat / Tunne / Merchant Left and Wt. Bearing PERIPHERAL IV DATA: Not applicable SIGNED BY: RT Lei(R) July 31, 2023 2:21 PM documented in this encounter [facility] 07-31-2023 Note HNO ID: [id number] Author: BRENDA HOFFMAN RT(Arthur) Service: Radiology Author Type: Technologist Type: Progress Notes Filed: 07/31/2023 14:31 Note Text: Radiology Service Progress Note PATIENT NAME: Beatris Fletcher DATE OF SERVICE: July 31, 2023 TIME: 2:21 PM PATIENT IDENTITY VERIFICATION COMPLETED USING TWO (2) IDENTIFIERS: Name and Date of confirmed by patient verbally. FALL SCREENING: Has the patient had 2 falls in the last year or 1 fall with injury or currently using an Ambulatory Assistive Device (Walker, Cane, Wheelchair, Crutches, etc.)? No PATIENT GENDER DATA: Female. status: : No status: NO. PATIENT RELEVANT IMPLANT DATA REVIEWED: Not Applicable PATIENT PRESENTS WITH AN IMPLANTABLE OR ATTACHED AUTOMOTIVE SERVICE CONSULTANT: No RADIOLOGY DEPARTMENT: General X-ray: Exam(s) Completed: Lower Extremity X-Ray(s): Knee, AP / Lat / Tunne / Merchant Left and Wt. Bearing PERIPHERAL IV DATA: Not applicable SIGNED BY: RT Lei(R) July 31, 2023 2:21 PM [facility] 04-02-2023 Note HNO ID: [id number] Author: John Smith MD Service: ? Author Type: Physician Type: [...] lethargy; in the ER if severe. John Smith MD [facility] 04-02-2023 History of Presen t illness [...] lethargy; in the ER if severe. John Smith MD documented in this encounter [facility] 02-18-2023 History of Presen t illness Narrative Radiology Service Progress Note PATIENT NAME: Beatris Fletcher DATE OF SERVICE: February 18, 2023 [...] RT Lei(R) February 18, 2023 12:13 PM documented in this encounter [facility] 02-18-2023 History of Presen t illness Narrative Radiology Service Progress Note PATIENT NAME: Beatris Fletcher DATE OF SERVICE: February 18, 2023 [...] RT Lei(R) February 18, 2023 11:57 AM documented in this encounter [facility] 01-22-2023 History of Presen [...] of care. This note was generated using SoBiz[employer] software. It may contain errors in wording, punctuation, or spelling. Floyd Louise APRN.CLAUDIA documented in this encounter [facility] 11-21-2022 Instructions Floyd Louise APRN.CNP - 11/21/2022 1:46 PM EDT SORE THROAT [...] mouth and then touches another person directly (rjlz-qq-lenp contact) or indirectly (qcbe-cw-jozjqt, such as doorknob, telephone, toys). It is [...] every four months on our web site ([email or web address]). Information below was obtained from Up to date Last literature review version 19.2: September 2010 This topic last updated: January 03, 2010 documented in this encounter [facility] 11-21-2022 History of Presen t illness Narrative Subjective HPI Nontoxic-appearing female presents to urgent care with chief complaint of upper respiratory tract like infection. Duration of symptoms 2 days. Associated symptoms sore throat, nasal congestion, nasal discharge and nonproductive cough. Patient denies the use of any gkml-fyg-wimevqn medications or home remedies for symptom management. [...] of care. This note was generated using SoBiz10 software. It may contain errors in wording, punctuation, or spelling. Floyd Louise APRN.CLAUDIA documented in this encounter [facility] 08-02-2022 History of Presen t illness Narrative 1. Myopia, bilateral A: Good vision, fit, and comfort in current contact lenses. P: Finalized and printed new spec and clrx. Educated pt on proper wear and care of contact lenses. Return to clinic in one year for contact lens evaluation or sooner with any problems. Vitor Brower OD August 02, 2022 11:04 AM documented in this encounter [facility] 04-08-2022 History of Presen t illness Narrative Patient came in with complaints of cat bite on left ring finger. Patient says she is bit yesterday. Patient says is extremely swollen and painful and numb. Upon examining the finger patient does have significant swelling and erythema. Patient has yellow-green liquid seeping out around the nail. Patient works at the [email or web address] should not 100% sure the cat had any of its shots. At this time patient is being sent to the ER due to loss of feeling in the finger swelling and erythema. Patient was okay with this care plan. documented in this encounter [facility] 03-14-2022 History of Presen t illness Narrative Follow Up Visit Chief Complaint Beatris Fletcher is a 16 year old female who presents today for follow up office visit. Patient presents with: Left Knee - Post Op 7 weeks 6 days post op Left knee arthropscopy: Lateral femoral conyle chondroplasty, loose body removal and MPFL reconstruction with allograft History of Present Illness PAIN EVALUATION No data found in the last 1 encounters. HPI: Beatris Fletcher is a 16 year old female [...] medications for this visit. Physical Exam Vitals: LMP 01/04/2022 Psych: Pleasant, good affect and mood [...] in agreement of plan. All questions answered. Mayda Solares DO Patient presents with: Left Knee [...] any pain today. documented in this encounter [facility] 03-06-2022 History of Presen t illness Narrative Episode Visit Count: 9 Therapist That Will Accept/Oversee The Plan Of Care: Jakekenyetta June Start of Care Date: 02/04/22 Onset Date: 06/18/20 (end of the month) Patient Identified by Name and Date of : Yes REHABILITATION AND SPORTS THERAPY PHYSICAL THERAPY PROGRESS REPORT PLAN OF CARE UPDATE: Assessment: Beatris Fletcher demonstrates improvements in rising from a [...] 02/04/22 through 04/06/22 Goals updated on 03/06/2022. [place] in home exercise program. (Met) Patient will [...] Patient to be seen for Therapeutic exercise (77454);Neuromuscular re-education (71605);Manual therapy (70819);Gait Training (91862);Patient/Family/Caregiver Education PLAN FOR NEXT VISIT: May add [...] June Staton PT documented in this encounter [facility] 02-27-2022 History of Presen t illness Narrative Episode Visit Count: 7 Therapist That Will Accept/Oversee The Plan Of Care: June Staton Start of Care Date: 02/04/22 Onset Date: 06/18/20 (end of the month) Patient Identified by Name and Date of : Yes REHABILITATION AND SPORTS THERAPY PHYSICAL THERAPY TREATMENT NOTE ASSESSMENT: Beatris Fletcher tolerated the session with fatigue and [...] June Staton PT documented in this encounter [facility] 02-25-2022 History of Presen t illness Narrative Episode Visit Count: 6 Therapist That Will Accept/Oversee The Plan Of Care: June Staton Start of Care Date: 02/04/22 Onset Date: 06/18/20 (end of the month) Patient Identified by Name and Date of : Yes REHABILITATION AND SPORTS THERAPY PHYSICAL THERAPY TREATMENT NOTE ASSESSMENT: Beatris Fletcher tolerated the session with fatigue. She [...] 45 Total Treatment Time Minutes (timed/untimed): 45 Raysa Epperson, BRUSH HAND June Staton PT documented in this encounter [facility] 02-22-2022 History of Presen t illness Narrative Episode Visit Count: 5 Therapist That Will Accept/Oversee The Plan Of Care: June Staton Start of Care Date: 02/04/22 Onset Date: 06/18/20 (end of the month) Patient Identified by Name and Date of : Yes REHABILITATION AND SPORTS THERAPY PHYSICAL THERAPY TREATMENT NOTE ASSESSMENT: Beatris Fletcher tolerated the session with no issues. [...] June Staton PT documented in this encounter [facility] 02-04-2022 History of Presen t illness Narrative Episode Visit Count: 1 Therapist That Will Accept/Oversee The Plan Of Care: June Staton Start of Care Date: 02/04/22 Onset Date: 06/18/20 (end of the month) Patient Identified by Name and Date of : Yes REHABILITATION AND SPORTS THERAPY PHYSICAL THERAPY EVALUATION PLAN OF CARE: Assessment: Beatris Fletcher presents with diagnosis of L knee [...] of Care: created on 02/04/22 through 04/06/22 [place] in home exercise program. Patient will decrease [...] Planned: 16 Planned Treatment Interventions: Therapeutic exercise (44801);Neuromuscular re-education (45796);Manual therapy (61376);Gait Training (89210);Patient/Family/Caregiver Education;E-Stim Attended/TENS (43260) PLAN FOR NEXT VISIT: Review HEP. Progress exercises with addition of SAQ and then SLR if able to maintain knee extension during the lift. Patient demonstrates good understanding of plan of care and treatment. The above goals and plan of care were discussed and agreed upon by patient/family. SUBJECTIVE: Beatris Fletcher is a 16 year old female [...] 60% weight on L LE. Works at [employer] so lots of walking, attends [employer] and walks a lot at school. Patient Goals: To get back to doing all my activities at work. Functional Limitations: walking in the community;physical activities;recreational activities;sleeping Prior Level of Function: Independent with restrictions Independent with the following restrictions: Knee pain and limitations prior to surgery. 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 Patient presents with: Left Knee - Post Op History of Present Illness PAIN EVALUATION 02/01/2022 1056 Pain Level: 3 Pain Location: Knee-Left Description: Sharp Duration Amount of Time: 2 Duration Units: Weeks Frequency: Intermittent Intervention/Comfort measure: Positioning;Medication;Cold HPI: Beatris Fletcher is a 16 year old female [...] medications for this visit. Physical Exam Vitals: [facility] 01/04/2022 Psych: Pleasant, good affect [...] All questions answered. documented in this encounter [facility] 01-24-2022 Miscellaneous Notes Letter faxed to number provided Left detailed message on mom's VM too. Advised to call back with any questions or concerns. School nhote composed to excuse her from class from 01/23/22 through 01/25/22. Sent to patients [employer]. Dyan Toscano Mom is calling in and is wanting to see if she can get a school excuse typed up for Beatris to excuse her.. Definitely would have to be for Friday, mom states Beatris went to school yesterday, but was in a lot of pain so stayed home today.. Please advise. Thank you! PH # is [phone] Could be released through [employer] or mom says we can fax directly to the school. [facility] [employer] documented in this encounter [facility] 01-01-2022 Instructions Marline Lujan APRN.DIRECTOR CUSTOMER - 01/01/2022 1:41 PM EDT PATIENT PREOPERATIVE INSTRUCTIONS Mayda Solares,* has scheduled you for your procedure at this surgery center: [facility]: [phone] --[id number] [place] [address]. Please read below carefully for your personalized [...] Procedures: - YOU MUST HAVE A RESPONSIBLE LEGAL ANALYST TAKE YOU HOME. A MORTAR MIXER OPERATOR OR ECHO VASC TECH CANNOT BE MADE A RESPONSIBLE LEGAL ANALYST. - We recommend that a responsible person [...] Advance Directive, please fax a copy to [phone] or email to for it to be [...] Marline Lujan APRN.CLAUDIA documented in this encounter [facility] 01-01-2022 History and physical note PREANESTHESIA CONSULT CLINIC TELEHEALTH VISIT Patient has been identified by name and date of : Yes This is a virtual visit using Digital Signal video visit. It require patient-provider interaction for [...] 2014 WRIST Left cyst on left wrist FAMILY [...] fevers. Neuro: No history of TIA's, stroke, PRODUCT DEVELOPMENT ECOLOGIST tumor, impaired sensorium, hemiplegia, paraplegia or quadraplegia. No neurological symptoms or problems. Respiratory: No history of current cough or dyspnea, or pneumonia in the past 6 weeks. No history of respiratory/pulmonary symptoms or problems. Cardiovascular: No history of HTN requiring medication, no history of angina, CHF, RI, cardiac surgery or stents. Denies rest pain, [...] > 1 time per night or hematuria TIP FINISHER: Negative for abnormal vaginal bleeding, abnormal vaginal [...] device. I spent more than 0-20 minutes iyeg-db-rasz with the patient and over half the time was devoted to counseling and/or coordination of care. This is a virtual visit. It required patient-provider interaction for the medical decision making as documented above. SIGNATURE: Marline Lujan APRN.CNP PATIENT NAME: Beatris Fletcher DATE: .01/01/2022 TIME: 1:46 PM PAGER/CONTACT #: documented in this encounter [facility] 12-26-2021 Miscellaneous Notes Confirmed DOS 01/18 joint [...] to sched joint surgery on Left knee [phone]-mom Rosa [phone]-dad Edward documented in this encounter [facility] 12-10-2021 History of Presen t illness Narrative Virtual visit: Consultation requested by Dr. Mayda Soalres for an opinion regarding surgery on left knee for recurrent dislocations and loose body. My final recommendations will be communicated back to the requesting physician by way of shared Medical record or letter to requesting physician via US mail. 16 year old not in any sports now due to pain. Dislocated LEFT patella a year ago. Had MRI on 11/11/20 at [facility] MRI at that time revealed possible [...] with more than 50% of the total zikg-rx-zqwp time of the visit in counseling / coordination of care. We will coordinate with Dr Solares for combined surgery documented in this encounter [facility] 12-07-2021 Miscellaneous Notes Daughter seeing Dr. Arteaga 12/10 then we can move forward with scheduling and the required letter. Message left for mom. Electronically signed by Chago Colby [facility] at 12/07/2021 8:28 AM EDT Patients mother is calling in and is requesting paperwork be sent to patients dads email so he can turn this into his higher up . He has a prior engagement and needs this form to get off and help with taking care of Beatris afterwards. The email is [email or web address]. The paperwork does not need to give specifics bc of HIPPA, but would need dads name, and the date of surgery for Beatris. Please advise. They are saying they need this before the weekend.. Thank you! documented in this encounter [facility] 11-07-2021 History of Presen t illness Narrative Images from the original note were not included. Follow Up Visit Chief Complaint Beatris Fletcher is a 16 year old female who presents today for follow up office visit. Patient presents with: Left Knee - Established Patient, Follow Up, Pre-Op Visit, Knee Pain History of Present Illness PAIN EVALUATION 11/07/2021 1141 Pain Level: 3 Pain Location: Knee-Left Description: Aching Duration Amount of Time: on going Frequency: Intermittent Comments: PT in the past HPI: Beatris Fletcher is a 16 year old female [...] medications for this visit. Physical Exam Vitals: [facility] 02/09/2020 Psych: Pleasant, good affect [...] to be notified and will contact patient Mayda Solares DO documented in this encounter [facility] 10-23-2021 Miscellaneous Notes Patient has been scheduled for visit with Dr. Solares / pre op. Please contact the patient for an in person visit. I can schedule her after that. I had actually already left her a message but hadn't heard back yet. Electronically signed by Chago Colby [facility] at 10/23/2021 2:45 PM EDT Team, Patient [...] the room prior to day of. Thanks! Mayda Solares DO documented in this encounter [facility] 10-19-2021 History of Presen t illness Narrative VIRTUAL VISIT PROGRESS NOTE This is a virtual visit using Digital Signal video visit. It required patient-provider interaction for the medical decision making as documented below. Beatris Fletcher is a 16 year old female [...] which included preparing to see the patient, hiqh-un-qsgx patient care, completing clinical documentation, communicating with [...] call / confirm treatment plan with patient. Mayda Solares DO documented in this encounter [facility] 10-16-2021 History of Presen t illness Narrative Radiology Service Progress Note PATIENT NAME: Beatris Fletcher DATE OF SERVICE: October 16, 2021 [...] IV DATA: Not applicable SIGNED BY: RT Dorys(R) October 16, 2021 11:44 AM documented in this encounter [facility] 09-28-2021 Miscellaneous Notes Called mom and scheduled [...] to surgical intervention. Please schedule/call patient Thanks Mayda Solares DO ----- Message from Mayda Solares DO sent at 09/27/2021 11:59 AM EDT ----- I ordered MRI, her last one of her left knee was a while ago and id like a new one prior to surgical intervention. Please schedule/call patient Thanks Mayda Solares DO documented in this encounter [facility] 09-26-2021 History of Presen t illness Narrative Images from the original note were not included. Reason for Visit/Chief Complaint Beatris Fletcher is a 16 year old female [...] measure: Reposition;Relaxation;Other: See comment;Cold;Medication knee sleeve HPI: Beatris Fletcher is a 16 year old female [...] ALLERGIES No Known Allergies Physical Exam: Vitals: LMP 02/09/2020 Psych: Pleasant, good affect and mood [...] seen in the lateral and patellofemoral compartments. Stereoplotter Operator: CHAPARRITA Avila. Complete Results Assessment and Plan: Impression: Encounter [...] plan as discussed. documented in this encounter [facility] 09-26-2021 Miscellaneous Notes Radiology Service Progress Note PATIENT NAME: Beatris Fletcher DATE OF SERVICE: September 26, 2021 [...] 2021 12:16 PM documented in this encounter [facility] 06-10-2017 History of Past i llness Narrative Problem Noted Date Resolved Date Chronic cough 06/10/2017 11/25/2019 Nocturnal enuresis 10/16/2010 02/22/2020 Ganglion cyst of wrist, left 10/2019 Last Assessment & Plan: Assessment: scheduled for EXCISION GANGLION WRIST LEFT 12/03/2019 documented as of this encounter (statuses as of 09/27/2021) [facility] History of Past illness Narrative* Problem Noted Date Resolved Date Chronic cough 06/10/2017 11/25/2019 Nocturnal enuresis 10/16/2010 02/22/2020 Ganglion cyst of wrist, left 10/2019 Last Assessment & Plan: Assessment: scheduled for EXCISION GANGLION WRIST LEFT 12/03/2019 documented as of this encounter (statuses as of 09/27/2021) [facility] History of Past illness Narrative* Problem Noted Date Resolved Date Chronic cough 06/10/2017 11/25/2019 Nocturnal enuresis 10/16/2010 02/22/2020 Ganglion cyst of wrist, left 10/2019 Last Assessment & Plan: Assessment: scheduled for EXCISION GANGLION WRIST LEFT 12/03/2019 documented as of this encounter (statuses as of 09/28/2021) [facility] History of Past illness Narrative* Problem Noted Date Resolved Date Chronic cough 06/10/2017 11/25/2019 Nocturnal enuresis 10/16/2010 02/22/2020 Ganglion cyst of wrist, left 10/2019 Last Assessment & Plan: Assessment: scheduled for EXCISION GANGLION WRIST LEFT 12/03/2019 documented as of this encounter (statuses as of 10/17/2021) [facility]01-23-2018 History of Past illness Narrative* Problem Noted Date Resolved Date Chronic cough 06/10/2017 11/25/2019 Nocturnal enuresis 10/16/2010 02/22/2020 Ganglion cyst of wrist, left 10/2019 Last Assessment & Plan: Assessment: scheduled for EXCISION GANGLION WRIST LEFT 12/03/2019 documented as of this encounter (statuses as of 10/23/2021) [address]23-2018 History of Past illness Narrative* Problem Noted Date Resolved Date Chronic cough 06/10/2017 11/25/2019 Nocturnal enuresis 10/16/2010 02/22/2020 Ganglion cyst of wrist, left 10/2019 Last Assessment & Plan: Assessment: scheduled for EXCISION GANGLION WRIST LEFT 12/03/2019 documented as of this encounter (statuses as of 10/23/2021) [facility]-23-2018 History of Past illness Narrative* Problem Noted Date Resolved Date Chronic cough 06/10/2017 11/25/2019 Nocturnal enuresis 10/16/2010 02/22/2020 Ganglion cyst of wrist, left 10/2019 Last Assessment & Plan: Assessment: scheduled for EXCISION GANGLION WRIST LEFT 12/03/2019 documented as of this encounter (statuses as of 11/08/2021) [facility]-2018 History of Past illness Narrative* Problem Noted Date Resolved Date Chronic cough 06/10/2017 11/25/2019 Nocturnal enuresis 10/16/2010 02/22/2020 Ganglion cyst of wrist, left 10/2019 Last Assessment & Plan: Assessment: scheduled for EXCISION GANGLION WRIST LEFT 12/03/2019 documented as of this encounter (statuses as of 12/10/2021) [facility]-23-2018 History of Past illness Narrative* Problem Noted Date Resolved Date Chronic cough 06/10/2017 11/25/2019 Nocturnal enuresis 10/16/2010 02/22/2020 Ganglion cyst of wrist, left 10/2019 Last Assessment & Plan: Assessment: scheduled for EXCISION GANGLION WRIST LEFT 12/03/2019 documented as of this encounter (statuses as of 12/26/2021) [facility]-2018 History of Past illness Narrative* Problem Noted Date Resolved Date Chronic cough 06/10/2017 11/25/2019 Nocturnal enuresis 10/16/2010 02/22/2020 Ganglion cyst of wrist, left 10/2019 Last Assessment & Plan: Assessment: scheduled for EXCISION GANGLION WRIST LEFT 12/03/2019 documented as of this encounter (statuses as of 01/01/2022) [facility]2018 History of Past illness Narrative* Problem Noted Date Resolved Date Chronic cough 06/10/2017 11/25/2019 Nocturnal enuresis 10/16/2010 02/22/2020 Ganglion cyst of wrist, left 10/2019 Last Assessment & Plan: Assessment: scheduled for EXCISION GANGLION WRIST LEFT 12/03/2019 documented as of this encounter (statuses as of 01/07/2022) [facility]2018 History of Past illness Narrative* Problem Noted Date Resolved Date Chronic cough 06/10/2017 11/25/2019 Nocturnal enuresis 10/16/2010 02/22/2020 Ganglion cyst of wrist, left 10/2019 Last Assessment & Plan: Assessment: scheduled for EXCISION GANGLION WRIST LEFT 12/03/2019 documented as of this encounter (statuses as of 01/24/2022) [facility]2018 History of Past illness Narrative* Problem Noted Date Resolved Date Chronic cough 06/10/2017 11/25/2019 Nocturnal enuresis 10/16/2010 02/22/2020 Ganglion cyst of wrist, left 10/2019 Last Assessment & Plan: Assessment: scheduled for EXCISION GANGLION WRIST LEFT 12/03/2019 documented as of this encounter (statuses as of 02/01/2022) [facility] History of Past illness Narrative* Problem Noted Date Resolved Date Chronic cough 06/10/2017 11/25/2019 Nocturnal enuresis 10/16/2010 02/22/2020 Ganglion cyst of wrist, left 10/2019 Last Assessment & Plan: Assessment: scheduled for EXCISION GANGLION WRIST LEFT 12/03/2019 documented as of this encounter (statuses as of 02/04/2022) [facility]2018 History of Past illness Narrative* Problem Noted Date Resolved Date Chronic cough 06/10/2017 11/25/2019 Nocturnal enuresis 10/16/2010 02/22/2020 Ganglion cyst of wrist, left 10/2019 Last Assessment & Plan: Assessment: scheduled for EXCISION GANGLION WRIST LEFT 12/03/2019 documented as of this encounter (statuses as of 02/22/2022) [facility]2018 History of Past illness Narrative* Problem Noted Date Resolved Date Chronic cough 06/10/2017 11/25/2019 Nocturnal enuresis 10/16/2010 02/22/2020 Ganglion cyst of wrist, left 10/2019 Last Assessment & Plan: Assessment: scheduled for EXCISION GANGLION WRIST LEFT 12/03/2019 documented as of this encounter (statuses as of 02/25/2022) [facility]2018 History of Past illness Narrative* Problem Noted Date Resolved Date Chronic cough 06/10/2017 11/25/2019 Nocturnal enuresis 10/16/2010 02/22/2020 Ganglion cyst of wrist, left 10/2019 Last Assessment & Plan: Assessment: scheduled for EXCISION GANGLION WRIST LEFT 12/03/2019 documented as of this encounter (statuses as of 02/27/2022) [facility]2018 History of Past illness Narrative* Problem Noted Date Resolved Date Chronic cough 06/10/2017 11/25/2019 Nocturnal enuresis 10/16/2010 02/22/2020 Ganglion cyst of wrist, left 10/2019 Last Assessment & Plan: Assessment: scheduled for EXCISION GANGLION WRIST LEFT 12/03/2019 documented as of this encounter (statuses as of 03/06/2022) [facility]2018 History of Past illness Narrative* Problem Noted Date Resolved Date Chronic cough 06/10/2017 11/25/2019 Nocturnal enuresis 10/16/2010 02/22/2020 Ganglion cyst of wrist, left 10/2019 Last Assessment & Plan: Assessment: scheduled for EXCISION GANGLION WRIST LEFT 12/03/2019 documented as of this encounter (statuses as of 03/15/2022) [address]23-2018 History of Past illness Narrative* Problem Noted Date Resolved Date Chronic cough 06/10/2017 11/25/2019 Nocturnal enuresis 10/16/2010 02/22/2020 Ganglion cyst of wrist, left 10/2019 Last Assessment & Plan: Assessment: scheduled for EXCISION GANGLION WRIST LEFT 12/03/2019 documented as of this encounter (statuses as of 04/09/2022) [facility]2018 History of Past illness Narrative* Problem Noted Date Resolved Date Chronic cough 06/10/2017 11/25/2019 Nocturnal enuresis 10/16/2010 02/22/2020 Ganglion cyst of wrist, left 10/2019 Last Assessment & Plan: Assessment: scheduled for EXCISION GANGLION WRIST LEFT 12/03/2019 documented as of this encounter (statuses as of 08/02/2022) [facility]2018 History of Past illness Narrative* Problem Noted Date Resolved Date Chronic cough 06/10/2017 11/25/2019 Nocturnal enuresis 10/16/2010 02/22/2020 Ganglion cyst of wrist, left 10/2019 Last Assessment & Plan: Assessment: scheduled for EXCISION GANGLION WRIST LEFT 12/03/2019 documented as of this encounter (statuses as of 11/21/2022) [facility]2018 History of Past illness Narrative* Problem Noted Date Diagnosed Date Resolved Date Chronic cough 06/10/2017 11/25/2019 Nocturnal enuresis 10/16/2010 0 Ganglion cyst of wrist, left 02/22/2020 Last Assessment & Plan: Assessment: scheduled for EXCISION GANGLION WRIST LEFT 12/03/2019 documented as of this encounter (statuses as of 01/23/2023) [facility]2018 History of Past illness Narrative* Problem Noted Date Diagnosed Date Resolved Date Chronic cough 06/10/2017 11/25/2019 Nocturnal enuresis 10/16/2010 0 Ganglion cyst of wrist, left 02/22/2020 Last Assessment & Plan: Assessment: scheduled for EXCISION GANGLION WRIST LEFT 12/03/2019 documented as of this encounter (statuses as of 04/02/2023) [facility]2018 History of Past illness Narrative* Problem Noted Date Diagnosed Date Resolved Date Chronic cough 06/10/2017 11/25/2019 Nocturnal enuresis 10/16/2010 0 Ganglion cyst of wrist, left 02/22/2020 Last Assessment & Plan: Assessment: scheduled for EXCISION GANGLION WRIST LEFT 12/03/2019 documented as of this encounter (statuses as of 07/24/2023) [facility] History of Past illness Narrative* Problem Noted Date Diagnosed Date Resolved Date Chronic cough 06/10/2017 11/25/2019 Nocturnal enuresis 10/16/2010 0 Ganglion cyst of wrist, left 02/22/2020 Last Assessment & Plan: Assessment: scheduled for EXCISION GANGLION WRIST LEFT 12/03/2019 documented as of this encounter (statuses as of 08/01/2023) [facility] History of Past illness Narrative* Problem Noted Date Diagnosed Date Resolved Date Chronic cough 06/10/2017 11/25/2019 Nocturnal enuresis 10/16/2010 0 Ganglion cyst of wrist, left 02/22/2020 Last Assessment & Plan: Assessment: scheduled for EXCISION GANGLION WRIST LEFT 12/03/2019 documented as of this encounter (statuses as of 08/01/2023) [facility] History of Past illness Narrative* Problem Noted Date Diagnosed Date Resolved Date Chronic cough 06/10/2017 11/25/2019 Nocturnal enuresis 10/16/2010 0 Ganglion cyst of wrist, left 02/22/2020 Last Assessment & Plan: Assessment: scheduled for EXCISION GANGLION WRIST LEFT 12/03/2019 documented as of this encounter (statuses as of 08/19/2023) [facility] History of Past illness Narrative* Problem Noted Date Diagnosed Date Resolved Date Chronic cough 06/10/2017 11/25/2019 Nocturnal enuresis 10/16/2010 0 Ganglion cyst of wrist, left 02/22/2020 Last Assessment & Plan: Assessment: scheduled for EXCISION GANGLION WRIST LEFT 12/03/2019 documented as of this encounter (statuses as of 08/27/2023) [place] [address]-23-2018 History of Past illness Narrative* Problem Noted Date Diagnosed Date Resolved Date Chronic cough 06/10/2017 11/25/2019 Nocturnal enuresis 10/16/2010 0 Ganglion cyst of wrist, left 02/22/2020 Last Assessment & Plan: Assessment: scheduled for EXCISION GANGLION WRIST LEFT 12/03/2019 documented as of this encounter (statuses as of 08/28/2023) [facility]2018 History of Past illness Narrative* Problem Noted Date Diagnosed Date Resolved Date Chronic cough 06/10/2017 11/25/2019 Nocturnal enuresis 10/16/2010 0 Ganglion cyst of wrist, left 02/22/2020 Last Assessment & Plan: Assessment: scheduled for EXCISION GANGLION WRIST LEFT 12/03/2019 documented as of this encounter (statuses as of 08/30/2023) [facility]2018 History of Past illness Narrative* Problem Noted Date Diagnosed Date Resolved Date Chronic cough 06/10/2017 11/25/2019 Nocturnal enuresis 10/16/2010 0 Ganglion cyst of wrist, left 02/22/2020 Last Assessment & Plan: Assessment: scheduled for EXCISION GANGLION WRIST LEFT 12/03/2019 documented as of this encounter (statuses as of 09/03/2023) [facility] Pain Generalized pain Chronic pain of left knee Pain in joint, lower leg [facility] Diagnosis Chronic pain of left knee- Primary Pain in joint, lower leg 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 [facility] Diagnosis Chronic pain of left knee Pain in joint, lower leg Knee OCD Osteochondritis dissecans [facility]* Diagnosis Chronic pain of left knee- Primary Pain in joint, lower leg 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 Other joint derangement, not elsewhere classified, lower leg [facility]* [...] patella, subsequent encounter [facility]* Diagnosis Preoperative testing- Primary Preoperative examination, unspecified Patellar dislocation, left, subsequent encounter S/P orthopedic surgery, follow-up exam Follow-up examination, following other surgery Patellar dislocation, left, subsequent encounter [facility]* Diagnosis Pre-op evaluation- Primary Preoperative examination, unspecified Dislocation of left patella, subsequent encounter Patellar dislocation, left, subsequent encounter [facility] Diagnosis S/P knee surgery- Primary Other postprocedural status Dislocation of left patella, subsequent encounter Patellar instability of left knee Other joint derangement, not elsewhere classified, lower leg [facility]* Diagnosis Patellar dislocation, left, subsequent encounter- Primary S/P orthopedic surgery, follow-up exam Follow-up examination, following other surgery [facility]* Diagnosis Patellar dislocation, left, subsequent encounter- Primary S/P orthopedic surgery, follow-up exam Follow-up examination, following other surgery [facility]* Diagnosis Patellar dislocation, left, subsequent encounter- Primary S/P orthopedic surgery, follow-up exam Follow-up examination, following other surgery [facility]* Diagnosis Patellar dislocation, left, subsequent encounter- Primary S/P orthopedic surgery, follow-up exam Follow-up examination, following other surgery [facility]* Diagnosis Patellar dislocation, left, subsequent encounter- Primary S/P orthopedic surgery, follow-up exam Follow-up examination, following other surgery [facility]* Diagnosis S/P knee surgery- Primary Other postprocedural status [facility]* Diagnosis Cat bite, initial encounter- Primary [facility] Diagnosis Myopia, bilateral- Primary Myopia [facility]* Diagnosis Sore throat- Primary Acute pharyngitis URI, acute Acute upper respiratory infections of unspecified site [facility]* Diagnosis Rash- Primary Rash and other nonspecific skin eruption [facility] Diagnosis Sore throat- Primary Acute pharyngitis [facility] Diagnosis Chronic pain of left knee- Primary Pain in joint, lower leg [facility] Diagnosis Chronic pain of left knee Pain in joint, lower leg [facility] Diagnosis S/P knee surgery- Primary Other postprocedural status Loose body in knee, left knee [facility]* Diagnosis S/P knee surgery Other postprocedural status [facility]* Diagnosis S/P knee surgery- Primary Other postprocedural status [facility] Diagnosis Nausea- Primary Nausea alone [facility] Diagnosis S/P knee surgery Other postprocedural status Loose body in knee, left knee [facility]* Diagnosis S/P knee surgery- Primary Other postprocedural status [facility]* Diagnosis Nausea- Primary Nausea alone [facility] Diagnosis Dizziness- Primary Dizziness and giddiness Nausea and vomiting, unspecified vomiting type [facility] Diagnosis Myopia, bilateral- Primary Myopia [facility] Diagnosis with uncertain dates, antepartum- Primary state, incidental Encounter for care in first trimester of first Generalized anxiety disorder History of depression Personal history of other mental disorder Supervision of normal first teen in second trimester Acute vaginitis Vaginitis and vulvovaginitis, unspecified Nausea and vomiting during Normal first with uncertain date of LMP, antepartum Supervision of normal first [facility] Diagnosis Generalized anxiety disorder- Primary History of depression Personal history of other mental disorder Supervision of normal first teen in second trimester Nausea and vomiting during Normal first with uncertain date of LMP, antepartum Supervision of normal first [facility] Diagnosis Encounter for screening for malformation using ultrasound- Primary 12 weeks gestation of state, incidental 12 weeks gestation of - Primary state, incidental [facility] Diagnosis Encounter for screening for malformation using ultrasound- Primary 12 weeks gestation of state, incidental [facility] Diagnosis Supervision of normal first teen in second trimester- Primary Nausea and vomiting during Normal first with uncertain date of LMP, antepartum Supervision of normal first Generalized anxiety disorder History of depression Personal history of other mental disorder 12 weeks gestation of state, incidental [facility] Diagnosis Nausea- Primary Nausea alone documented in this encounter [facility] note* Diagnosis Supervision of normal first teen in second trimester- Primary 15 weeks gestation of state, incidental Nausea and vomiting during Generalized anxiety disorder History of depression Personal history of other mental disorder Rubella non-immune status, antepartum Other specified complication, antepartum documented in this encounter [facility] note* Diagnosis Supervision of normal first teen in second trimester- Primary Nausea and vomiting during History of depression Personal history of other mental disorder Rubella non-immune status, antepartum Other specified complication, antepartum Generalized anxiety disorder 20 weeks gestation of state, incidental Back pain in Other specified complication of , unspecified as to episode of care documented in this encounter [facility] note* Diagnosis Encounter for anatomic survey- Primary 20 weeks gestation of state, incidental documented in this encounter [facility] note* Diagnosis Pain Generalized pain [facility] Diagnosis Pain Generalized pain documented in this encounter [facility] note* Diagnosis Encounter for care in first trimester of first documented in this encounter [facility] note* Diagnosis 24 weeks gestation of - Primary state, incidental Supervision of normal first teen in second trimester Generalized anxiety disorder Rubella non-immune status, antepartum Other specified complication, antepartum History of depression Personal history of other mental disorder Encounter for care in first trimester of first Heartburn during in second trimester documented in this encounter [facility] for referral (narrative)* Diagnostic Procedure Only (Routine) - Closed Specialty Diagnoses / Procedures Referred By Contester t Referred To Contact XR IMAGING Diagnoses Chronic pain of left knee Procedures XR KNEE GENERAL 4V AP BOTH/PA BOTH/LAT/MERC LEFT RADIOLOGIC EXAM KNEE COMPLETE 4/MORE VIEWS Mayda Solares DO [address] [place] [address] Xr Imaging Referral ID Status Reason Start Date Expiration Date V isits Requested Visits Authorized [id number] Closed Auto-Generate d Referral 09/26/2021 10/26/2022 1 1 [facility] for referral (narrative)* Diagnostic Procedure Only (Routine) - Pending Review Specialty Diagnoses / Procedures Referred By Contac t Referred To Contact XR IMAGING Diagnoses Chronic pain of left knee Procedures XR KNEE GENERAL 4V AP BOTH/PA BOTH/LAT/MERC LEFT RADIOLOGIC EXAM KNEE COMPLETE 4/MORE VIEWS Mayda Solares DO [address] [place] [address] [place] [address] Referral ID Status Reason Start Date Expiration Date Visits Requested Visits Authorized [id number] Pending Review Auto-Generat ed Referral 07/24/2023 08/22/2024 1 1 [facility] for referral (narrative)* Diagnostic Procedure Only (Routine) - Closed Specialty Diagnoses / Procedures Referred By Contac t Referred To Contact XR IMAGING Diagnoses Chronic pain of left knee Procedures XR KNEE GENERAL 4V AP BOTH/PA BOTH/LAT/MERC LEFT RADIOLOGIC EXAM KNEE COMPLETE 4/MORE VIEWS Mayda Solares DO [address] [place] [address] [place] [address] Referral ID Status Reason Start Date Expiration Date V isits Requested Visits Authorized [id number] Closed Auto-Generate d Referral 07/24/2023 08/22/2024 1 1 [facility] for referral (narrative)* Diagnostic Procedure Only (Routine) - New Request Specialty Diagnoses / Procedures Referred By Contac t Referred To Contact [facility] Diagnoses 12 weeks gestation of Procedures NUCHAL TRANSLUCENCY WHI US NUCHAL TRANSLUCENCY 1ST GESTATION Anitra Caldwell APRN.CNM [address] [place] [address] [facility] [place] [address] [place] [address] Referral ID Status Reason Start Date Expiration Date Visits Requested Visits Authorized [id number] New Request Auto-Generat ed Referral 11/28/2023 11/27/2024 1 1 [facility] for referral (narrative)* Diagnostic Procedure Only (Routine) - New Request Specialty Diagnoses / Procedures Referred By Contac t Referred To Contact [facility] Diagnoses Supervision of normal first teen in second trimester Procedures OBSTETRIC ULTRASOUND WHI US PREG UTERUS AFTER 1ST TRIMEST GESTATION Anitra Caldwell APRN.CN [address] [place] [address] [facility] [place] [address] [place] [address] Referral ID Status Reason Start Date Expiration Date Visits Requested Visits Authorized [id number] New Request Auto-Generat ed Referral 11/28/2023 11/27/2024 1 1 [facility] for referral (narrative)* Diagnostic Procedure Only (Urgent) - Closed Specialty Diagnoses / Procedures Referred By Contac t Referred To Contact XR IMAGING Diagnoses Pain Procedures XR FOOT GENERAL 3V AP/LAT/OBL RIGHT RADEX FOOT COMPLETE MINIMUM 3 VIEWS Zhanna Hazel APRN.DIRECTOR CUSTOMER [address] [place] [address] [place] [address] Referral ID Status Reason Start Date Expiration Date V isits Requested Visits Authorized [id number] Closed Auto-Generate d Referral 02/18/2023 03/19/2024 1 1 [facility] for referral (narrative)* Diagnostic Procedure Only (Urgent) - Closed Specialty Diagnoses / Procedures Referred By Contac t Referred To Contact XR IMAGING Diagnoses Pain Procedures XR ANKLE GENERAL 3V AP/LAT/OBL RIGHT RADEX ANKLE COMPLETE MINIMUM 3 VIEWS Zhanna Hazle APRN.DIRECTOR CUSTOMER [address] [place] [address] [place] [address] Referral ID Status Reason Start Date Expiration Date V isits Requested Visits Authorized [id number] Closed Auto-Generate d Referral 02/18/2023 03/19/2024 1 1 [facility] for visit Narrative* Diagnostic Procedure Only (Routine) - Closed Specialty Diagnoses / Procedures Referred By Contac t Referred To Contact XR IMAGING Diagnoses Pain Procedures XR KNEE GENERAL 4V AP BOTH/PA BOTH/LAT/MERC RIGHT RADIOLOGIC EXAM KNEE COMPLETE 4/MORE VIEWS Mayda Solares DO [address] [place] [address] Xr Imaging Referral ID Status Reason Start Date Expiration Date V isits Requested Visits Authorized [id number] Closed Auto-Generate d Referral 08/17/2021 09/16/2022 1 1 [facility] for visit Narrative* Diagnostic Procedure Only (Routine) - Closed Specialty Diagnoses / Procedures Referred By Contac t Referred To Contact XR IMAGING Diagnoses Chronic pain of left knee Procedures XR KNEE GENERAL 4V AP BOTH/PA BOTH/LAT/MERC LEFT RADIOLOGIC EXAM KNEE COMPLETE 4/MORE VIEWS Mayda Solares DO [address] [facility] [address] [place] [address] [place] [address] Referral ID Status Reason Start Date Expiration Date V isits Requested Visits Authorized [id number] Closed Auto-Generate d Referral 07/24/2023 08/22/2024 1 1 [facility] for visit Narrative* Diagnostic Procedure Only (Urgent) - Closed Specialty Diagnoses / Procedures Referred By Contac t Referred To Contact XR IMAGING Diagnoses Pain Procedures XR FOOT GENERAL 3V AP/LAT/OBL RIGHT RADEX FOOT COMPLETE MINIMUM 3 VIEWS Zhanna Hazel APRN.DIRECTOR CUSTOMER [address] [place] [address] [place] [address] Referral ID Status Reason Start Date Expiration Date V isits Requested Visits Authorized [id number] Closed Auto-Generate d Referral 02/18/2023 03/19/2024 1 [facility] Procedure Only (Urgent) - Closed Specialty Diagnoses / Procedures Referred By Contac t Referred To Contact XR IMAGING Diagnoses Pain Procedures XR ANKLE GENERAL 3V AP/LAT/OBL RIGHT RADEX ANKLE COMPLETE MINIMUM 3 VIEWS Zhanna Hazel, SERVER PROGRAMMER.DIRECTOR CUSTOMER [address] [place] [address] [place] [address] Referral ID Status Reason Start Date Expiration Date V isits Requested Visits Authorized [id number] Closed Auto-Generate d Referral 02/18/2023 03/19/2024 1 1 [facility] Summary Purpose Family History No Family History [...] MRI ANY JT LOWER EXTREM W/O CONTRAST Mayad Lemons DO [address] [place] [address] Mr Imaging Referral ID Status Reason Start Date Expiration Date V isits Requested Visits Authorized [id number] Closed Auto-Generate d Referral 09/28/2021 10/27/2021 1 1 Specialty Diagnoses / Procedures Referred By Contact Referred To Contact [facility] Diagnoses Patellar dislocation, left, subsequent encounter S/P orthopedic surgery, follow-up exam Procedures CONSULT TO PHYSICAL THERAPY PHYSICAL THERAPY EVALUATION HIGH COMPLEX 45 MINS Otoniel Gates PA-C [address] [place] [address] [facility] [address] [place] [address] Referral ID Status Reason Start Date Expiration Date Visits Requested Visits Authorized [id number] Pending Review Auto-Generat ed Referral 12/26/2021 12/26/2022 1 1 Referral ID Status Reason Start Date Expiration Date Visits Requested Visits Authorized [id number] Pending Review Auto-Generat ed Referral 12/26/2021 12/26/2022 1 1 Specialty Diagnoses / Procedures Referred By Contac t Referred To Contact [facility] Diagnoses Patellar dislocation, left, subsequent encounter S/P orthopedic surgery, follow-up exam Procedures PT REHAB FOLLOW UP ORDER THERAPEUTIC EXERCISES RE, EA 15 MIN. June Staton, PT [facility] [address] [place] [id number] Referral ID Status Reason Start Date Expiration Date Visits Requested Visits Authorized [id number] Pending Review PCP Requested Referral Auto-Generate d Referral 02/04/2022 05/05/2022 1 1 Specialty Diagnoses / Procedures Referred By Contac t Referred To Contact MR IMAGING Diagnoses S/P knee surgery Loose body in knee, left knee Procedures MRI KNEE WO IVCON LEFT MRI ANY JT LOWER EXTREM W/O CONTRAST Mayda Lemons DO [address] [place] [address] [place] [address] Referral ID Status Reason Start Date Expiration Date Visits Requested Visits Authorized [id number] Pending Review Auto-Generat ed Referral 07/31/2023 08/29/2024 1 1 Specialty Diagnoses / Procedures Referred By Contac t Referred To Contact [facility] Diagnoses S/P knee surgery Procedures CONSULT TO PHYSICAL THERAPY PHYSICAL THERAPY EVALUATION HIGH COMPLEX 45 MINS Mayda Solares DO [address] [place] [address] [facility] [address] [address] Referral ID Status Reason Start Date Expiration Date Visits Requested Visits Authorized [id number] Authorized Auto-Generat ed Referral 05/19/2023 05/18/2024 30 30 Specialty Diagnoses / Procedures Referred By Contac t Referred To Contact MR IMAGING Diagnoses S/P knee surgery Loose body in knee, left knee Procedures MRI KNEE WO IVCON LEFT MRI ANY JT LOWER EXTREM W/O CONTRAST Mayda Lemons DO [address] [place] [address] [facility] [place] [address] Referral ID Status Reason Start Date Expiration Date V isits Requested Visits Authorized [id number] Closed Auto-Generate d Referral 07/31/2023 11/20/2023 1 1 Medications Administered Section Active Administered [...] ized section and content) DATE CREATED AUTHOR 12/10/2019 [facility] DATE CREATED AUTHOR AUTHOR'S ORGANIZ ATION 09/28/2021 [facility] DATE CREATED AUTHOR AUTHOR'S ORGANIZ ATION 04/25/2023 [facility] DATE CREATED AUTHOR AUTHOR'S ORGANIZ ATION 03/01/2024 [facility] Source Comments (unrecognize d section and content) In the event this informatio n is protected by the Federal Confidentiality of Alcohol and Drug Abuse Patient Records regulations: The Federal rules restrict any use of the information to criminally investigate or prosecute any alcohol or drug abuse patient.[facility] the event this information is protected by the Federal Confidentiality of Alcohol and Drug Abuse Patient Records regulations: The Federal rules restrict any use of the information to criminally investigate or prosecute any alcohol or drug abuse patient.[facility] the event this information is protected by the Federal Confidentiality of Alcohol and Drug Abuse Patient Records regulations: The Federal rules restrict any use of the information to criminally investigate or prosecute any alcohol or drug abuse patient.[facility] the event this information is protected by the Federal Confidentiality of Alcohol and Drug Abuse Patient Records regulations: The Federal rules restrict any use of the information to criminally investigate or prosecute any alcohol or drug abuse patient.[facility] the event this information is protected by the Federal Confidentiality of Alcohol and Drug Abuse Patient Records regulations: The Federal rules restrict any use of the information to criminally investigate or prosecute any alcohol or drug abuse patient.[facility] the event this information is protected by the Federal Confidentiality of Alcohol and Drug Abuse Patient Records regulations: The Federal rules restrict any use of the information to criminally investigate or prosecute any alcohol or drug abuse patient.[facility] the event this information is protected by the Federal Confidentiality of Alcohol and Drug Abuse Patient Records regulations: The Federal rules restrict any use of the information to criminally investigate or prosecute any alcohol or drug abuse patient.[facility] the event this information is protected by the Federal Confidentiality of Alcohol and Drug Abuse Patient Records regulations: The Federal rules restrict any use of the information to criminally investigate or prosecute any alcohol or drug abuse patient.[facility]In the event this information is protected by the Federal Confidentiality of Alcohol and Drug Abuse Patient Records regulations: The Federal rules restrict any use of the information to criminally investigate or prosecute any alcohol or drug abuse patient.[facility]In the event this information is protected by the Federal Confidentiality of Alcohol and Drug Abuse Patient Records regulations: The Federal rules restrict any use of the information to criminally investigate or prosecute any alcohol or drug abuse patient.[facility] the event this information is protected by the Federal Confidentiality of Alcohol and Drug Abuse Patient Records regulations: The Federal rules restrict any use of the information to criminally investigate or prosecute any alcohol or drug abuse patient.[facility]In the event this information is protected by the Federal Confidentiality of Alcohol and Drug Abuse Patient Records regulations: The Federal rules restrict any use of the information to criminally investigate or prosecute any alcohol or drug abuse patient.[facility] the event this information is protected by the Federal Confidentiality of Alcohol and Drug Abuse Patient Records regulations: The Federal rules restrict any use of the information to criminally investigate or prosecute any alcohol or drug abuse patient.[facility]In the event this information is protected by the Federal Confidentiality of Alcohol and Drug Abuse Patient Records regulations: The Federal rules restrict any use of the information to criminally investigate or prosecute any alcohol or drug abuse patient.[facility] HospitalIn the event this information is protected by the Federal Confidentiality of Alcohol and Drug Abuse Patient Records regulations: The Federal rules restrict any use of the information to criminally investigate or prosecute any alcohol or drug abuse patient.[facility] HospitalIn the event this information is protected by the Federal Confidentiality of Alcohol and Drug Abuse Patient Records regulations: The Federal rules restrict any use of the information to criminally investigate or prosecute any alcohol or drug abuse patient.[facility]In the event this information is protected by the Federal Confidentiality of Alcohol and Drug Abuse Patient Records regulations: The Federal rules restrict any use of the information to criminally investigate or prosecute any alcohol or drug abuse patient.[facility] HospitalIn the event this information is protected by the Federal Confidentiality of Alcohol and Drug Abuse Patient Records regulations: The Federal rules restrict any use of the information to criminally investigate or prosecute any alcohol or drug abuse patient.[facility]In the event this information is protected by the Federal Confidentiality of Alcohol and Drug Abuse Patient Records regulations: The Federal rules restrict any use of the information to criminally investigate or prosecute any alcohol or drug abuse patient.[facility] HospitalIn the event this information is protected by the Federal Confidentiality of Alcohol and Drug Abuse Patient Records regulations: The Federal rules restrict any use of the information to criminally investigate or prosecute any alcohol or drug abuse patient.[facility] HospitalIn the event this information is protected by the Federal Confidentiality of Alcohol and Drug Abuse Patient Records regulations: The Federal rules restrict any use of the information to criminally investigate or prosecute any alcohol or drug abuse patient.[facility] HospitalIn the event this information is protected by the Federal Confidentiality of Alcohol and Drug Abuse Patient Records regulations: The Federal rules restrict any use of the information to criminally investigate or prosecute any alcohol or drug abuse patient.[facility] HospitalIn the event this information is protected by the Federal Confidentiality of Alcohol and Drug Abuse Patient Records regulations: The Federal rules restrict any use of the information to criminally investigate or prosecute any alcohol or drug abuse patient.[facility] HospitalIn the event this information is protected by the Federal Confidentiality of Alcohol and Drug Abuse Patient Records regulations: The Federal rules restrict any use of the information to criminally investigate or prosecute any alcohol or drug abuse patient.[facility] HospitalIn the event this information is protected by the Federal Confidentiality of Alcohol and Drug Abuse Patient Records regulations: The Federal rules restrict any use of the information to criminally investigate or prosecute any alcohol or drug abuse patient.[facility] HospitalIn the event this information is protected by the Federal Confidentiality of Alcohol and Drug Abuse Patient Records regulations: The Federal rules restrict any use of the information to criminally investigate or prosecute any alcohol or drug abuse patient.[facility]In the event this information is protected by the Federal Confidentiality of Alcohol and Drug Abuse Patient Records regulations: The Federal rules restrict any use of the information to criminally investigate or prosecute any alcohol or drug abuse patient.[facility] HospitalIn the event this information is protected by the Federal Confidentiality of Alcohol and Drug Abuse Patient Records regulations: The Federal rules restrict any use of the information to criminally investigate or prosecute any alcohol or drug abuse patient.[facility] HospitalIn the event this information is protected by the Federal Confidentiality of Alcohol and Drug Abuse Patient Records regulations: The Federal rules restrict any use of the information to criminally investigate or prosecute any alcohol or drug abuse patient.[facility] HospitalIn the event this information is protected by the Federal Confidentiality of Alcohol and Drug Abuse Patient Records regulations: The Federal rules restrict any use of the information to criminally investigate or prosecute any alcohol or drug abuse patient.[facility] HospitalIn the event this information is protected by the Federal Confidentiality of Alcohol and Drug Abuse Patient Records regulations: The Federal rules restrict any use of the information to criminally investigate or prosecute any alcohol or drug abuse patient.[facility] HospitalIn the event this information is protected by the Federal Confidentiality of Alcohol and Drug Abuse Patient Records regulations: The Federal rules restrict any use of the information to criminally investigate or prosecute any alcohol or drug abuse patient.[facility] HospitalIn the event this information is protected by the Federal Confidentiality of Alcohol and Drug Abuse Patient Records regulations: The Federal rules restrict any use of the information to criminally investigate or prosecute any alcohol or drug abuse patient.[facility] HospitalIn the event this information is protected by the Federal Confidentiality of Alcohol and Drug Abuse Patient Records regulations: The Federal rules restrict any use of the information to criminally investigate or prosecute any alcohol or drug abuse patient.[facility] HospitalIn the event this information is protected by the Federal Confidentiality of Alcohol and Drug Abuse Patient Records regulations: The Federal rules restrict any use of the information to criminally investigate or prosecute any alcohol or drug abuse patient.[facility] HospitalIn the event this information is protected by the Federal Confidentiality of Alcohol and Drug Abuse Patient Records regulations: The Federal rules restrict any use of the information to criminally investigate or prosecute any alcohol or drug abuse patient.[facility] HospitalIn the event this information is protected by the Federal Confidentiality of Alcohol and Drug Abuse Patient Records regulations: The Federal rules restrict any use of the information to criminally investigate or prosecute any alcohol or drug abuse patient.[facility] HospitalIn the event this information is protected by the Federal Confidentiality of Alcohol and Drug Abuse Patient Records regulations: The Federal rules restrict any use of the information to criminally investigate or prosecute any alcohol or drug abuse patient.[facility] HospitalIn the event this information is protected by the Federal Confidentiality of Alcohol and Drug Abuse Patient Records regulations: The Federal rules restrict any use of the information to criminally investigate or prosecute any alcohol or drug abuse patient.[facility] HospitalIn the event this information is protected by the Federal Confidentiality of Alcohol and Drug Abuse Patient Records regulations: The Federal rules restrict any use of the information to criminally investigate or prosecute any alcohol or drug abuse patient.[facility] HospitalIn the event this information is protected by the Federal Confidentiality of Alcohol and Drug Abuse Patient Records regulations: The Federal rules restrict any use of the information to criminally investigate or prosecute any alcohol or drug abuse patient.[facility] HospitalIn the event this information is protected by the Federal Confidentiality of Alcohol and Drug Abuse Patient Records regulations: The Federal rules restrict any use of the information to criminally investigate or prosecute any alcohol or drug abuse patient.[facility] HospitalIn the event this information is protected by the Federal Confidentiality of Alcohol and Drug Abuse Patient Records regulations: The Federal rules restrict any use of the information to criminally investigate or prosecute any alcohol or drug abuse patient.[facility] HospitalIn the event this information is protected by the Federal Confidentiality of Alcohol and Drug Abuse Patient Records regulations: The Federal rules restrict any use of the information to criminally investigate or prosecute any alcohol or drug abuse patient.[facility] the event this information is protected by the Federal Confidentiality of Alcohol and Drug Abuse Patient Records regulations: The Federal rules restrict any use of the information to criminally investigate or prosecute any alcohol or drug abuse patient.[facility] HospitalIn the event this information is protected by the Federal Confidentiality of Alcohol and Drug Abuse Patient Records regulations: The Federal rules restrict any use of the information to criminally investigate or prosecute any alcohol or drug abuse patient.[facility] HospitalIn the event this information is protected by the Federal Confidentiality of Alcohol and Drug Abuse Patient Records regulations: The Federal rules restrict any use of the information to criminally investigate or prosecute any alcohol or drug abuse patient.[facility]In the event this information is protected by the Federal Confidentiality of Alcohol and Drug Abuse Patient Records regulations: The Federal rules restrict any use of the information to criminally investigate or prosecute any alcohol or drug abuse patient.[facility]In the event this information is protected by the Federal Confidentiality of Alcohol and Drug Abuse Patient Records regulations: The Federal rules restrict any use of the information to criminally investigate or prosecute any alcohol or drug abuse patient.[facility] HospitalIn the event this information is protected by the Federal Confidentiality of Alcohol and Drug Abuse Patient Records regulations: The Federal rules restrict any use of the information to criminally investigate or prosecute any alcohol or drug abuse patient.[facility] HospitalIn the event this information is protected by the Federal Confidentiality of Alcohol and Drug Abuse Patient Records regulations: The Federal rules restrict any use of the information to criminally investigate or prosecute any alcohol or drug abuse patient.[facility] HospitalIn the event this information is protected by the Federal Confidentiality of Alcohol and Drug Abuse Patient Records regulations: The Federal rules restrict any use of the information to criminally investigate or prosecute any alcohol or drug abuse patient.[facility] HospitalIn the event this information is protected by the Federal Confidentiality of Alcohol and Drug Abuse Patient Records regulations: The Federal rules restrict any use of the information to criminally investigate or prosecute any alcohol or drug abuse patient.[facility] HospitalIn the event this information is protected by the Federal Confidentiality of Alcohol and Drug Abuse Patient Records regulations: The Federal rules restrict any use of the information to criminally investigate or prosecute any alcohol or drug abuse patient.[facility]In the event this information is protected by the Federal Confidentiality of Alcohol and Drug Abuse Patient Records regulations: The Federal rules restrict any use of the information to criminally investigate or prosecute any alcohol or drug abuse patient.[facility] HospitalIn the event this information is protected by the Federal Confidentiality of Alcohol and Drug Abuse Patient Records regulations: The Federal rules restrict any use of the information to criminally investigate or prosecute any alcohol or drug abuse patient.[facility] Care Teams (unrecognized sec tion and content) Systems Test Engineer Relationship Specialty Start Date End Date Ren Carlson MD [address] [place] [id number] PCP - General 04 Systems Test Engineer Relationship Specialty Start Date End Date Ren Carlson MD [address] [place] [id number] PCP - General 04 Systems Test Engineer Relationship Specialty Start Date End Date Ren Carlson MD [facility] [address] PCP - General 04 Systems Test Engineer Relationship Specialty Start Date End Date Ren Carlson MD [facility] [place] [address] PCP - General 04 Systems Test Engineer Relationship Specialty Start Date End Date Ren Carlson MD [address] [place] [address] [place] [address] PCP - General 04 Systems Test Engineer Relationship Specialty Start Date End Date Ren Carlson MD [address] [place] [address] PCP - General 04 Systems Test Engineer Relationship Specialty Start Date End Date PlaylRen MD [address] [place], [place] [id number] PCP - General 04 Systems Test Engineer Relationship Specialty Start Date End Date PlayRen bernard MD [address] [place], [place] [address] PCP - General 04 Systems Test Engineer Relationship Specialty Start Date End Date PlaylRen MD [address] [place], [place] [address] PCP - General 04 Systems Test Engineer Relationship Specialty Start Date End Date PlaylRen MD [address] [place], [place] [id number] PCP - General 04 Systems Test Engineer Relationship Specialty Start Date End Date PlayRen bernard MD [address] [place], [place] [id number] PCP - General 04 Reason for Visit (unrecogniz ed section and content) Reason Comments Physical Therapy Specialty Diagnoses / Procedures Referred By Contac t Referred To Contact [facility] Diagnoses S/P knee surgery Procedures CONSULT TO PHYSICAL THERAPY PHYSICAL THERAPY EVALUATION HIGH COMPLEX 45 MINS Mayda Solares DO [address] [place] [address] [facility] [address] [place] [address] Referral ID Status Reason Start Date Expiration Date Visits Requested Visits Authorized [id number] Authorized Auto-Generat ed Referral 05/19/2023 05/18/2024 30 30 Reason Comments PT Progress Note Specialty Diagnoses / Procedures Referred By Contact Referred To Contact [facility] Diagnoses Patellar dislocation, left, subsequent encounter S/P orthopedic surgery, follow-up exam Procedures CONSULT TO PHYSICAL THERAPY PHYSICAL THERAPY EVALUATION HIGH COMPLEX 45 MINS THERAPEUTIC EXERCISES RE, EA 15 MIN. Otoniel Gates PA-C [id number] [place] [address] [facility] [address] [address] Referral ID Status Reason Start Date Expiration Date Visits Requested Visits Authorized [id number] Authorized Auto-Generat ed Referral 12/26/2021 05/18/2022 99 99 Reason Comments New Knee Pain Swelling Reason Comments [facility] Appt. Scheduling Specialty Diagnoses / Procedures Referred By Contac t Referred To Contact MR IMAGING Diagnoses Chronic pain of left knee Knee OCD Procedures MRI KNEE WO IVCON LT MRI ANY JT LOWER EXTREM W/O CONTRAST Mayda Lemons DO [address] [place] [address] Mr Imaging Referral ID Status Reason Start Date Expiration Date V isits Requested Visits Authorized [id number] Closed Auto-Generate d Referral 09/28/2021 10/27/2021 1 [...] RE, EA 15 MIN. Otoniel Gates PA-C [address] [place] [address] [facility] [address] [address] Reason Comments Post Op 7 weeks 6 [...] low grad e fever x 1 day Reason Comments Established Patient Pain Reason Comments PT Eval Reason Comments stomachache X 1 day Specialty Diagnoses / Procedures Referred By Contac t Referred To Contact MR IMAGING Diagnoses S/P knee surgery Loose body in knee, left knee Procedures MRI KNEE WO IVCON LEFT MRI ANY JT LOWER EXTREM W/O CONTRAST Mayda Lemons, [address] [place] [address] [facility] [address] [place] [address] Referral ID Status Reason Start Date Expiration Date V isits Requested Visits Authorized [id number] Closed Auto-Generate d Referral 07/31/2023 11/20/2023 1 1 Reason Comments Nausea x 3 days, 7 weeks pr egnant Reason Comments Yearly Exam Contact lens evaluation Reason Comments Initial OB Visit Reason Comments PRAF Initial PRAF Reason Comments US Specialty Diagnoses / Procedures Referred By Contac t Referred To Contact [facility] Diagnoses 12 weeks gestation of Procedures NUCHAL TRANSLUCENCY WHI US NUCHAL TRANSLUCENCY 1ST GESTATION Anitra Caldwell APRN.CNM [address] [place] [address] [facility] [place] [address] [place] [address] Referral ID Status Reason Start Date Expiration Date Visits Requested Visits Authorized [id number] New Request Auto-Generat ed Referral 11/28/2023 11/27/2024 1 1 Reason Onset Date Comments Care 11/28/2023 Reason Comments Nausea & Vomiting Reason Comments Nausea & Vomiting With 14 weeks pregna ncy Reason Onset Date Comments Care 12/23/2023 Reason Onset Date Comments Care 01/23/2024 Specialty Diagnoses / Procedures Referred By Contac t Referred To Contact [facility] Diagnoses Supervision of normal first teen in second trimester Procedures OBSTETRIC ULTRASOUND WHI US PREG UTERUS AFTER 1ST TRIMEST GESTATION Anitra Caldwell APRN.CNM [address] [place] [address] [facility] [address] [place] [address] Referral ID Status Reason Start Date Expiration Date V isits Requested Visits Authorized [id number] Closed Auto-Generate d Referral 11/28/2023 11/27/2024 1 1 Reason Comments Soft Drink Powder Mixer - Other PRAF Reason Comments ULTRASOUND Reason Onset Date Comments Refill Request 02/12/2024 Reason Onset Date Comments Care 02/25/2024 Reason Comments Centering FOR RECORDS PERTAINING TO PATIENTS WHO ARE [...] BE BASED ON THE PRIMARY CLINICAL RECORDS. [facility] [employer] provides no warranty or guarantee of the accuracy or completeness of information in this document.
[2024-03-13 07:50] VITALS: BMI 27.4
[2024-03-13 07:54] VITALS: TEMP 36.2
[2024-03-13 07:55] VITALS: BP 112/72; PULSE 93
--- NOTE | 2024-03-13 07:59 | OB.TRI.NOTE ---
HPI - General HPI Narrative ORAL ANDRE, is a 18 F who presents with decreased movement. Patient stated she has felt movement but not as much as usual. PFSH PFSH Medical History Encounter for screening for COVID-19 Home Medications ?Medication ?Instructions ?Recorded ?Last Taken ?Type ondansetron 4 mg disintegrating 4 mg PO Q8H PRN PRN Nausea #12 tabs 11/05/23 Unknown Rx tablet Allergy/AdvReac Type Severity Reaction Status Date / Time lactase (From Dairy Aid) Allergy Mild Abdominal Verified 11/05/23 12:05 cramping Family History Grandfather Leukemia DVT (deep venous thrombosis) Grandmother Breast cancer Grandmother Diabetes Heart disease Lung cancer Surgical History History of removal of cyst H/O tooth extraction Social History Smoking Status: Never smoker alcohol intake: never what type of physical activity do you participate in: additional details: gym, sports seatbelt use: always
[2024-03-13 08:34] LABS: Red Blood Cells-Urine 0 SEEN /hpf (0-5)
[2024-03-13 08:43] LABS: Glucose, Dipstick Normal (Normal); Ketone-Dipstick Negative (Negative); Leukocyte Esterase-Dipstick 100 /ul (Negative); Nitrite-Dipstick Negative (Negative); Occult Blood-Urine Negative /ul (Negative); Protein-Dipstick Negative (Negative); Specific Gravity, Urine 1.015 (1.002-1.030); Urine Bilirubin Dipstick Negative (Negative); Urine Urobilinogen Normal (Normal); Urine pH 6.5 (5.0 - 8.0)
[2024-03-13 08:46] LABS: Color, Urine Yellow (Yellow); Urine Clarity Sl Cldy (Clear)
[2024-03-13 09:08] LABS: Bacteria 3+ /hpf (None Seen); Squamous Epithelial Cells - UA 5-10 SEEN /hpf (5-10)
[2024-03-13 09:09] LABS: Amorphous Sediment 1+; Mucous, Urine 1+ /hpf (<or=2+); White Blood Cells 0-5 SEEN /hpf (0-5)
== END 2024-03-13 09:19 | disposition home or self-care (01) ==
LOC: WPOUT 07:44 → WP 07:45
PROVIDERS: PCP Pediatrics; Referring Provider Advanced Practice Midwife; Visit Provider Advanced Practice Midwife
DX: O36.8120 Decreased fetal movements, second trimester, not applicable or unspecified (principal); Z3A.27 27 weeks gestation of pregnancy
CPT/HCPCS: 59025; 59050; 81001; 99221; G0378

== ENCOUNTER 2024-03-21 01:51 | Emergency (ER) | payer MEDICAID, SELFPAY ==
[2024-03-21 01:52] VITALS: BP 110/81; PULSE 102; RESP 18; TEMP 37.1; O2SAT 99; BMI 27.6
[2024-03-21 01:57] VITALS: BP 110/81; PULSE 114; RESP 16; TEMP 37.1; O2SAT 99
[2024-03-21] MEDS: Benzonatate 100 MG Capsule 200 MG PO (02:27)
[2024-03-21] MEDS: Ondansetron 4 MG/2 ML Vial IV (02:29)
[2024-03-21] MEDS: 0.9% Normal Saline (1000mL) 1,000 ML 999 ML IV (02:29)
[2024-03-21] MEDS: dexAMETHasone 10 MG/ML Vial IV (02:29)
[2024-03-21 02:41] LABS: Absolute Lymphocyte Count 1.21 X10^3/uL (0.83-4.51); Absolute Neutrophil Count 4.9 X10^3/uL (2.0-7.7); Basophil# 0.01 X10^3/uL; Basophil% 0.1 % (0-1); Eosinophil# 0.04 X10^3/uL; Eosinophils% 0.6 % (0-5); Hematocrit 31.5 % (37-47); Hemoglobin 11.3 g/dL (12.0-15.0); Lymphocyte # 1.21 X10^3/ul (0.83-4.51); Mean Corp Hgb Conc 35.9 g/dL (32-36); Mean Corpuscular Hgb 31.4 pg (27.0-32.0); Mean Corpuscular Volume 87.5 fL (81-99); Mean Platelet Vol. 11.5 fl (6.2-12.0); Monocyte# 0.52 X10^3/uL; Monocyte% 7.7 % (0-10); NRBC Flagged by Analyzer 0 % (0-5); Neutrophil # 4.91 X10^3/uL (2.7-7.7); Neutrophil % 73.2 % (47-70); Platelet Count 146 K/mm3 (150-450); RBC Distribution Width CV 12.6 % (11.6-14.6); RBC Distribution Width SD 39.6 fl (35.1-43.9); White Blood Count 6.7 K/mm3 (4.4-11.0)
[2024-03-21 02:46] LABS: AST(SGOT) 10 U/L (15-37); Alanine Aminotransfer ALT/SGPT 21 U/L (13-56); Alkaline Phosphatase 68 U/L (45-117); Anion Gap 7 (5-15); BUN 6 mg/dL (7-18); BUN/Creat Ratio 12.8 RATIO (10-20); Bilirubin, Direct 0.14 mg/dL (0.00-0.30); Calcium,Total 8.7 mg/dL (8.5-10.1); Chloride 105 mmol/L (98-107); Creatinine, Serum 0.47 mg/dL (0.55-1.02); EST Glomerular Filtration Rate 180 mL/min (>60); Est Glom Filt Rate - Afr Amer 218 mL/min (>60); Estimated Creatinine Clearance 188.38 ml/min; Globulin 3.9 g/dL (2.2-4.2); Glucose 80 mg/dL (74-106); Magnesium 1.8 mg/dL (1.6-2.6); Potassium 3.5 mmol/L (3.5-5.1); Protein, Total 6.9 g/dL (6.4-8.2); Sodium Level 137 mmol/L (136-145)
[2024-03-21 02:57] VITALS: BP 113/74; PULSE 87; RESP 16; TEMP 37; O2SAT 98
[2024-03-21 03:00] VITALS: BP 113/74; PULSE 89; RESP 16; TEMP 37; O2SAT 98
--- NOTE | 2024-03-21 03:14 | EX.ED.DYSGE1 ---
HPI History of Present Illness Chief Complaint: General Illness Informant: patient and spouse/S.O. Narrative Narrative: Patient is a 18-year-old female who is a G1, P0 approximately 28 weeks . She states that on Friday she awoke with a sore throat and this progressed into and with concern for an infection she went to an urgent care where she was tested for strep and COVID and this was negative. She states her sore throat has since resolved but now she has congestion drainage and cough. She states she is coughing to the point where she is having bouts of vomiting. She reports she contacted OB and was advised to come to the ER for evaluation. She states there is no vaginal discharge or bleeding and she does not have abdominal pain associated with this however with concern for an infective process she presents for evaluation. [facility] Medical History Encounter for screening for COVID-19 Home Medications ?Medication ?Instructions ?Recorded ?Last Taken ?Type aspirin 81 mg capsule 81 mg PO DAILY 03/21/24 Unknown History azelastine 137 mcg (0.1 %) nasal 2 spray intranasal BID #30 mL 03/21/24 Unknown Rx spray azithromycin 250 mg tablet See Rx Instructions PO .COMPLEX #6 03/21/24 Unknown Rx (Zithromax Z-Xu) tabs benzonatate 200 mg capsule 200 mg PO TID PRN cough 5 days #15 03/21/24 Unknown Rx caps ondansetron 4 mg disintegrating 4 mg PO TID PRN nausea and 03/21/24 Unknown Rx tablet vomiting #21 tabs prednisone 20 mg tablet 20 mg PO DAILY 5 days #5 tabs 03/21/24 Unknown Rx vit no.95-ferrous 1 tab PO DAILY 03/21/24 Unknown History fumarate 28 mg-folic acid 800 mcg tablet () Allergy/AdvReac Type Severity Reaction Status Date / Time lactase (From Dairy Aid) Allergy Mild Abdominal Verified 03/21/24 01:51 EST cramping Family History Grandfather Leukemia DVT (deep venous thrombosis) Grandmother Breast cancer Grandmother Diabetes Heart disease Lung cancer Surgical History History of removal of cyst H/O tooth extraction Social History Smoking Status: Never smoker alcohol intake: never what type of physical activity do you participate in: additional details: gym, sports seatbelt use: always ROS ROS ED Constitutional Constitutional ED: Denies chills or fever(s) Eyes Eyes: Denies change in vision ENT ENT ED: Reports rhinorrhea and sore throat; Denies ear pain Cardiovascular Cardiovascular: Denies chest pain Respiratory/Chest Respiratory/Chest: Reports cough; Denies dyspnea Gastrointestinal Gastrointestinal: Reports nausea; Denies abdominal pain, diarrhea or vomiting Genitourinary Genitourinary ED: Denies dysuria Musculoskeletal Musculoskeletal: Reports myalgias Integumentary Denies rash Neurologic Neurologic: Denies headache(s) Hematologic/Lymphatic Hematologic/Lymphatic: Denies easy bleeding or easy bruising EXAM Physical Exam Const Vital Signs: 03/21/24 01:52 EST 03/21/24 01:57 EST 03/21/24 01:57 EST Temperature 98.7 F 98.7 F Temperature Source Oral Oral Pulse Rate 102 H 114 H Respiratory Rate 18 16 Respiratory Effort Short of Breath Labored Respiratory Pattern Normal Blood Pressure 110/81 H 110/81 H Blood Pressure Mean 90 90 Pulse Ox 99 99 Oxygen Delivery Method Room Air Room Air 03/21/24 02:57 03/21/24 03:00 03/21/24 03:23 Temperature 98.6 F 98.6 F 98.6 F Temperature Source Oral Oral Pulse Rate 87 89 98 Respiratory Rate 16 16 16 Respiratory Effort Respiratory Pattern Blood Pressure 113/74 113/74 113/74 Blood Pressure Mean 87 87 87 Pulse Ox 98 98 98 Oxygen Delivery Method Room Air Room Air Positive well nourished and well developed General Appearance ED: well developed; Negative for pallor HEENT Reports moist mucous membranes HEENT Narrative: There is erythema in the posterior pharynx but no tonsillar hypertrophy no exudates no trismus no change in voice or difficulty with secretions Bilateral TMs are slightly retracted but show no secondary changes to suggest infection Nasal mucosa is hyperemic and boggy with enlarged inferior nasal turbinates Eyes PERRL and EOMs intact bilaterally General Eye ED: Negative for scleral icterus Neck supple Neck Narrative: No nuchal rigidity or meningeal signs noted Patient does have anterior cervical lymphadenopathy present Chest Wall palpation of chest normal Resp normal respiratory effort and clear to auscultation bilaterally Resp Narrative: No nasal flaring retractions tachypnea or accessory muscle use Breath sounds are clear throughout Cardio regular rate and regular rhythm GI non-tender and non-distended GI Narrative: Abdomen is gravid with fundus consistent with reported gestational age. No tenderness to palpation noted Auscultation: normoactive bowel sounds Extremity normal to inspection Extremity Narrative: Negative Homans' sign bilaterally Neuro oriented x3, CN's II-XII intact bilaterally and no sensory deficits noted Sensorium / Orientation: alert Motor Exam: strength 5/5 throughout Psych mental status grossly normal Skin no rashes or lesions noted and no wounds General Skin Exam: Negative for jaundice or pallor MDM MDM MDM Narrative Medical decision making narrative: Patient arrived to the ER in no acute respiratory distress satting 98 to 100% on room air. Her constellation of symptoms is most consistent with a viral URI. She is already been tested for COVID and strep and therefore I do not feel need to repeat test based on her physical exam. We discussed potential chest x-ray but with her status I did not feel there is need for radiation as she is not hypoxic or in respiratory distress and her lung sounds are clear. In order to ensure that she is not developing help syndrome or electrolyte abnormality or acute kidney injury basic blood work was obtained. This revealed no clinically significant findings. After she was hydrated and given a Tessalon Perle and Decadron she reported improvement of her symptoms and on reevaluation she remained in no acute distress. Therefore at this time with improvement of symptoms stable vitals no signs of distress I do not feel there is need for further workup. Patient will be placed on a Z-Xu as she is with apparent viral infection but as there is been bouts of pneumonia in the younger population recently I do have concern for 1 developing and so she will be placed on a Z-Xu. Without septic changes or signs of respiratory distress there is no need for further workup and she is otherwise safe for discharge History & Record Review Discussion w/independent historian: Patient and Significant other Lab Data Attestation: I reviewed the patient's lab results. Labs: Laboratory Results - last 24 hr 03/21/24 02:00 WBC 6.7 RBC 3.60 L Hgb 11.3 L Hct 31.5 L MCV 87.5 MCH 31.4 MCHC 35.9 RDW Std Deviation 39.6 RDW Coeff of Kirsten 12.6 Plt Count 146 L MPV 11.5 Immature Gran % (Auto) 0.400 Neut % (Auto) 73.2 H Lymph % (Auto) 18.0 L Pierce % (Auto) 7.7 Eos % (Auto) 0.6 Baso % (Auto) 0.1 Absolute Neuts (auto) 4.9 Absolute Lymphs (auto) 1.21 Nucleated RBC % 0 Sodium 137 Potassium 3.5 Chloride 105 Carbon Dioxide 25.0 Anion Gap 7 BUN 6 L Creatinine 0.47 L Estim Creat Clear Calc 188.38 Est GFR (MDRD) Af Amer 218 Est GFR (MDRD) Non-Af 180 BUN/Creatinine Ratio 12.8 Glucose 80 Calcium 8.7 Magnesium 1.8 Total Bilirubin 0.50 Direct Bilirubin 0.14 AST 10 L ALT 21 Alkaline Phosphatase 68 Total Protein 6.9 Albumin 3.0 L Globulin 3.9 Discharge Plan Triage Chief Complaint: General Illness ED Provider: Vlad Jay Dx/Rx/DC Orders Clinical Impression: Viral upper respiratory tract infection with cough, Instructions: ED URI, Viral, No Abx (Adult) Prescriptions: New azithromycin [Zithromax Z-Xu] 250 mg tablet See Rx Instructions .ROUTE .COMPLEX Qty: 6 0RF Rx Instructions: For 250 mg dose pack: take 500 mg today (day 1), then 250 mg for 4 days (days 2-5) ondansetron 4 mg tablet,disintegrating 4 mg PO TID PRN (Reason: nausea and vomiting) Qty: 21 0RF prednisone 20 mg tablet 20 mg PO DAILY 5 Days Qty: 5 0RF benzonatate 200 mg capsule 200 mg PO TID PRN (Reason: cough) 5 Days Qty: 15 0RF azelastine 137 mcg (0.1 %) spray,non-aerosol 2 spray intranasal BID Qty: 30 0RF Rx Instructions: administer into each nostril No Action aspirin 81 mg capsule 81 mg PO DAILY PNV cmb#95-ferrous fumarate-FA [] 28 mg iron- 800 mcg tablet 1 tab PO DAILY Primary Care Provider: Care Physician,No Primary Referrals: Care Physician,No Primary [Primary Care Provider] - Activity Restrictions/Additional Instructions: Please take the prescribed medications as directed to help control your symptoms. Follow-up with your MANAGER INTERNAL for repeat evaluation and return to the ER should you have any further concerns or worsening of symptoms Print Language: Nepali Disposition Disposition: Home, Self Care Discharge Date/Time: 03/21/24 03:25
[2024-03-21 03:23] VITALS: BP 113/74; PULSE 98; RESP 16; TEMP 37; O2SAT 98
== END 2024-03-21 03:25 | disposition home or self-care (01) ==
PROVIDERS: Emergency Provider Emergency Medicine; Visit Provider Emergency Medicine
DX: O99.513 Diseases of the respiratory system complicating pregnancy, third trimester (principal); J06.9 Acute upper respiratory infection, unspecified; Z3A.28 28 weeks gestation of pregnancy; O99.891 Other specified diseases and conditions complicating pregnancy; R05.9 Cough, unspecified
CPT/HCPCS: 80048; 80076; 83735; 85025; 96361; 96374; 96375; 99283; A4216; J2405

== ENCOUNTER 2024-05-25 11:24 | Inpatient (IN) | payer MEDICAID, SELFPAY ==
[2024-05-25] VITALS (64 sets, daily range): BP systolic 85–134; BP diastolic 50–96; PULSE 78–117; RESP 16; TEMP 36.4–37.1; O2SAT 97–100; BMI 30.7
[2024-05-25] MEDS: Lactated Ringers 1,000 ML 50 ML IV (11:37)
[2024-05-25 12:14] LABS: Absolute Lymphocyte Count 2.12 X10^3/uL (0.83-4.51); Absolute Neutrophil Count 6.4 X10^3/uL (2.0-7.7); Basophil# 0.02 X10^3/uL; Basophil% 0.2 % (0-1); Eosinophil# 0.04 X10^3/uL; Eosinophils% 0.4 % (0-5); Hematocrit 36.6 % (37-47); Hemoglobin 12.7 g/dL (12.0-15.0); Lymphocyte # 2.12 X10^3/ul (0.83-4.51); Lymphocyte % 23.4 % (19-41); Mean Corp Hgb Conc 34.7 g/dL (32-36); Mean Corpuscular Volume 86.3 fL (81-99); Monocyte# 0.47 X10^3/uL; Monocyte% 5.2 % (0-10); NRBC Flagged by Analyzer 0 % (0-5); Neutrophil # 6.37 X10^3/uL (2.7-7.7); Neutrophil % 70.2 % (47-70); Platelet Count 177 K/mm3 (150-450); RBC Distribution Width CV 12.8 % (11.6-14.6); Red Blood Count 4.24 M/mm3 (4.2-5.4); White Blood Count 9.1 K/mm3 (4.4-11.0)
[2024-05-25 12:56] LABS: Syphilis Antibodies Non-reactive
[2024-05-25] MEDS: fentaNYL-bupivacaine (epidural) 100 ML BAG EPIDURAL ×2 (13:25→17:46)
[2024-05-25] MEDS: Ondansetron 4 MG/2 ML Vial IV (13:45)
[2024-05-25] MEDS: Lactated Ringers 1,000 ML 200 ML IV ×2 (14:36→19:29)
[2024-05-25] MEDS: Oxytocin 15 Units/NS 250ml 15 UNITS/250 ML IV.SOLN 2 UNITS IV (15:17)
[2024-05-25] MEDS: Mag Hydrox/Al Hydrox/Simeth 30 ML UDC PO (15:46)
--- NOTE | 2024-05-25 16:12 | PCM.HP.OB ---
HPI - General General Date of Admission: 05/25/24 HPI Narrative ORAL ANDRE, is a 18 F @ 37.4 weeks who presents c/o contractions Maternal Data Information Final RICK: 06/11/24 Final RICK Source: US <20 weeks Gestational age: [address] [facility] Medical History (Updated 05/25/24 @ 16:[address] Laxmi Simons MD) Anxiety Encounter for screening for COVID-19 Home Medications ?Medication ?Instructions ?Recorded ?Last Taken ?Type aspirin 81 mg capsule 81 mg PO DAILY 03/21/24 05/23/24 21:00 History 81 mg ondansetron 4 mg disintegrating 4 mg PO TID PRN nausea and 03/21/24 Unknown Rx tablet vomiting #21 tabs vit no.95-ferrous 1 tab PO DAILY 03/21/24 05/24/24 21:00 History fumarate 28 mg-folic acid 800 mcg 1 TAB tablet () pantoprazole 40 mg granules 40 mg PO DAILY 05/25/24 05/24/24 09:00 History delayed-release for susp in packet 40 mg (Protonix) Allergy/AdvReac Type Severity Reaction Status Date / Time lactase (From Dairy Aid) Allergy Mild Abdominal Verified 05/25/24 10:58 cramping Family History Grandfather Leukemia DVT (deep venous thrombosis) Grandmother Breast cancer Grandmother Diabetes Heart disease Lung cancer Surgical History (Updated 05/25/24 @ 12:09 by Anne Martinez) History of surgery History of removal of cyst H/O tooth extraction Social History Smoking Status: Never smoker alcohol intake: never what type of physical activity do you participate in: additional details: gym, sports seatbelt use: always History Elective abortions Hx Para 0 Spontaneous abortions Hx # Term Pregnancies Ectopic pregnancies Hx # Pregnancies Multiple births # of living children NST FHR Rate Baby A Baseline: 120 Variability:: Moderate Accelerations:: 15 x 15 Decelerations:: None NST Reactive:: Yes Uterine Activity:: q3-4 Vital Signs Vital Signs Vital Signs: 05/25/24 11:04 05/25/24 11:04 05/25/24 11:04 Temperature Temperature Source Temporal Pulse Rate 83 Respiratory Rate Blood Pressure 126/89 H BP Systolic 126 BP Diastolic 89 Pulse Ox 05/25/24 11:04 05/25/24 11:04 05/25/24 12:57 Temperature 98.7 F Temperature Source Pulse Rate Respiratory Rate 16 Blood Pressure 124/82 H BP Systolic 124 BP Diastolic 82 Pulse Ox 05/25/24 12:57 05/25/24 12:57 05/25/24 12:57 Temperature Temperature Source Pulse Rate 100 95 Respiratory Rate Blood Pressure BP Systolic BP Diastolic Pulse Ox 98 05/25/24 12:57 05/25/24 12:57 05/25/24 12:57 Temperature 98.3 F Temperature Source Temporal Pulse Rate Respiratory Rate 16 Blood Pressure BP Systolic BP Diastolic Pulse Ox 05/25/24 13:02 05/25/24 13:02 05/25/24 13:02 Temperature Temperature Source Pulse Rate 96 Respiratory Rate 16 Blood Pressure BP Systolic BP Diastolic Pulse Ox 98 05/25/24 13:03 05/25/24 13:03 05/25/24 13:03 Temperature Temperature Source Pulse Rate 103 H Respiratory Rate 16 Blood Pressure 118/93 H BP Systolic 118 BP Diastolic 93 Pulse Ox 05/25/24 13:07 05/25/24 13:07 05/25/24 13:07 Temperature Temperature Source Pulse Rate 96 102 H Respiratory Rate Blood Pressure 132/73 H BP Systolic 132 BP Diastolic 73 Pulse Ox 05/25/24 13:07 05/25/24 13:07 05/25/24 13:12 Temperature Temperature Source Pulse Rate Respiratory Rate 16 Blood Pressure 134/96 H BP Systolic 134 BP Diastolic 96 Pulse Ox 98 05/25/24 13:12 05/25/24 13:12 05/25/24 13:12 Temperature Temperature Source Pulse Rate 102 H 101 H Respiratory Rate Blood Pressure BP Systolic BP Diastolic Pulse Ox 97 05/25/24 13:12 05/25/24 13:17 05/25/24 13:17 Temperature Temperature Source Pulse Rate 102 H Respiratory Rate 16 Blood Pressure BP Systolic BP Diastolic Pulse Ox 98 05/25/24 13:17 05/25/24 13:22 05/25/24 13:22 Temperature Temperature Source Pulse Rate 96 Respiratory Rate 16 Blood Pressure 134/73 H BP Systolic 134 BP Diastolic 73 Pulse Ox 05/25/24 13:22 05/25/24 13:22 05/25/24 13:22 Temperature Temperature Source Pulse Rate 97 Respiratory Rate 16 Blood Pressure BP Systolic BP Diastolic Pulse Ox 98 05/25/24 13:27 05/25/24 13:27 05/25/24 13:27 Temperature Temperature Source Pulse Rate 92 Respiratory Rate Blood Pressure 125/81 H BP Systolic 125 BP Diastolic 81 Pulse Ox 98 05/25/24 13:31 05/25/24 13:31 05/25/24 13:31 Temperature Temperature Source Oral Pulse Rate 94 Respiratory Rate Blood Pressure 126/77 H BP Systolic 126 BP Diastolic 77 Pulse Ox 05/25/24 13:31 05/25/24 13:31 05/25/24 13:32 Temperature 98.3 F Temperature Source Pulse Rate 99 Respiratory Rate 16 Blood Pressure BP Systolic BP Diastolic Pulse Ox 05/25/24 13:32 05/25/24 13:36 05/25/24 13:36 Temperature Temperature Source Pulse Rate 90 Respiratory Rate Blood Pressure 124/80 H BP Systolic 124 BP Diastolic 80 Pulse Ox 98 05/25/24 13:36 05/25/24 13:37 05/25/24 13:37 Temperature Temperature Source Pulse Rate 96 Respiratory Rate 16 Blood Pressure BP Systolic BP Diastolic Pulse Ox 98 05/25/24 13:42 05/25/24 13:42 05/25/24 13:42 Temperature Temperature Source Pulse Rate 84 93 Respiratory Rate Blood Pressure 120/85 H BP Systolic 120 BP Diastolic 85 Pulse Ox 05/25/24 13:42 05/25/24 13:46 05/25/24 13:46 Temperature Temperature Source Pulse Rate 90 Respiratory Rate Blood Pressure 115/78 BP Systolic 115 BP Diastolic 78 Pulse Ox 99 05/25/24 13:46 05/25/24 13:47 05/25/24 13:47 Temperature Temperature Source Pulse Rate 90 Respiratory Rate 16 Blood Pressure BP Systolic BP Diastolic Pulse Ox 98 05/25/24 13:51 05/25/24 13:51 05/25/24 13:51 Temperature Temperature Source Pulse Rate 86 Respiratory Rate 16 Blood Pressure 111/77 BP Systolic 111 BP Diastolic 77 Pulse Ox 05/25/24 13:52 05/25/24 13:52 05/25/24 13:56 Temperature Temperature Source Pulse Rate 79 Respiratory Rate Blood Pressure 116/77 BP Systolic 116 BP Diastolic 77 Pulse Ox 98 05/25/24 13:56 05/25/24 13:56 05/25/24 13:57 Temperature Temperature Source Pulse Rate 85 78 Respiratory Rate 16 Blood Pressure BP Systolic BP Diastolic Pulse Ox 05/25/24 13:57 05/25/24 14:02 05/25/24 14:02 Temperature Temperature Source Pulse Rate 85 Respiratory Rate Blood Pressure 113/75 BP Systolic 113 BP Diastolic 75 Pulse Ox 98 05/25/24 14:02 05/25/24 14:02 05/25/24 14:06 Temperature Temperature Source Pulse Rate 90 Respiratory Rate Blood Pressure 114/80 BP Systolic 114 BP Diastolic 80 Pulse Ox 98 05/25/24 14:06 05/25/24 14:06 05/25/24 14:07 Temperature Temperature Source Pulse Rate 88 90 Respiratory Rate 16 Blood Pressure BP Systolic BP Diastolic Pulse Ox 05/25/24 14:07 05/25/24 14:12 05/25/24 14:12 Temperature Temperature Source Pulse Rate 84 Respiratory Rate Blood Pressure 111/79 BP Systolic 111 BP Diastolic 79 Pulse Ox 99 05/25/24 14:12 05/25/24 14:12 05/25/24 14:17 Temperature Temperature Source Pulse Rate 90 Respiratory Rate Blood Pressure 111/68 BP Systolic 111 BP Diastolic 68 Pulse Ox 100 05/25/24 14:17 05/25/24 14:17 05/25/24 14:22 Temperature Temperature Source Pulse Rate 103 H 96 Respiratory Rate Blood Pressure BP Systolic BP Diastolic Pulse Ox 98 05/25/24 14:22 05/25/24 14:23 05/25/24 14:23 Temperature Temperature Source Pulse Rate 94 Respiratory Rate Blood Pressure 85/61 L BP Systolic 85 BP Diastolic 61 Pulse Ox 99 05/25/24 14:23 05/25/24 14:23 05/25/24 14:23 Temperature 98.3 F Temperature Source Oral Pulse Rate Respiratory Rate 16 Blood Pressure BP Systolic BP Diastolic Pulse Ox 05/25/24 14:24 05/25/24 14:24 05/25/24 14:24 Temperature Temperature Source Pulse Rate 85 Respiratory Rate 16 Blood Pressure 108/63 BP Systolic 108 BP Diastolic 63 Pulse Ox 05/25/24 15:22 05/25/24 15:22 05/25/24 15:27 Temperature Temperature Source Pulse Rate 90 90 Respiratory Rate Blood Pressure BP Systolic BP Diastolic Pulse Ox 100 05/25/24 15:27 05/25/24 15:34 05/25/24 15:34 Temperature Temperature Source Pulse Rate 105 H Respiratory Rate Blood Pressure 119/80 BP Systolic 119 BP Diastolic 80 Pulse Ox 100 Weight Weight: 81.3 kg Body Mass Index (BMI) 30.7 Physical Exam Narrative 4cm on admission and painful Const alert and oriented x3 General Appearance: cooperative HEENT normocephalic GI GI Narrative: Gravid, non tender to palpation. OB / External & Speculum: external exam normal Extremity normal to inspection Skin no rashes or lesions noted Neuro oriented x3 and CN's II-XII intact bilaterally Psych Appearance: grossly normal Labs Labs Labs: Blood Type A POSITIVE Antibody Screen NEGATIVE Hct 36.6 % (37-47) L Hgb 12.7 g/dL (12.0-15.0) Syphilis Total Ab Non-reactive Assessment & Plan (1) 37 weeks gestation of : (2) Rubella non-immune status, antepartum: (3) History of depression: PLAN: Plan Admit to L&D Montior FHR/TOCO Epidural if requested for pain Monitor VS Anticipate pitocin for augmentation
--- NOTE | 2024-05-25 16:15 | PCM.PN.BLA ---
Progress Note AROM performed- large amt of clear fluid. /1. Continue pitocin. anticipate .
[2024-05-25] MEDS: Oxytocin 15 Units/NS 250ml 15 UNITS/250 ML IV.SOLN 334 UNITS IV (20:36)
--- NOTE | 2024-05-25 20:54 | OB.VAGDELI_ITS ---
Vaginal Delivery Maternal Presentation Maternal Presentation: Active Labor Vaginal Delivery Information Procedure Performed: Spontaneous Vaginal Delivery Surgeon/Practitioner: Laxmi Simons Date of Procedure: 05/25/24 Pre-Procedure Diagnosis: 37 weeks gestation, rubella non immune antepartum, h/o depression antepartum Post-Procedure Diagnosis: Same, live male Type of anesthesia: Epidural Estimated Blood Loss: 100 Time of Delivery: 20:34 Findings Description of procedure: Patient progressed to fully dilated. Good maternal pushing efforts delivered the 's head followed by the anterior shoulder and the posterior shoulder followed by the rest the infant's body without delay. The infant was then placed on the mother's chest delayed cord clamping was performed. Mouth and nose were suctioned. Infant was vigorous at time of delivery. Cord was then clamped and cut. Placenta was delivered intact without complication. First- degree vaginal laceration were noted which extended up the right labia. This was repaired using 3-0 Rapide suture. Excellent stasis was appreciated. Presentation: Vertex Amniotic Membrane Rupture Type: Artificial Amniotic Fluid Description: Clear Placental Delivery Description: Expressed Placenta Disposition: [facility] Cord Vessel Description: 3 Vessels Cord Entanglement: None Infant A Gender: Male (1 minute): 7 (5 minute): 8 Delayed Cord Clamping: Yes Business Continuity Specialist telemarketing manager: No Post Vaginal Deli Medications given after delivery: IV Pitocin Episiotomy Description: None Laceration: Vaginal Extension/lac (repaired with 3-0 rapide ) and 1st degree Complication Complications: No
[2024-05-25] MEDS: Oxytocin 15 Units/NS 250ml 15 UNITS/250 ML IV.SOLN 83 UNITS IV (21:08)
[2024-05-26 02:00] VITALS: BP 117/74; PULSE 99; RESP 16; TEMP 36.7; O2SAT 99
[2024-05-26 05:00] VITALS: BP 110/77; PULSE 88; RESP 17; TEMP 36.4; O2SAT 100
[2024-05-26] MEDS: Acetaminophen 500 MG Tablet 1000 MG PO (05:25)
[2024-05-26 06:00] VITALS: BP 101/62; PULSE 75; RESP 16; TEMP 36.3; O2SAT 97
--- NOTE | 2024-05-26 08:43 | PN.OBGYN_ITS ---
Subjective Subjective Doing well. Ambulating and voiding without difficulty. Mild lochia. Breast feeding. Objective Data Objective Data Vital Signs: Vital Signs Temp Pulse Resp BP Pulse Ox O2 Del Method 97.4 F L 75 16 101/62 97 Room Air 05/26/24 06:00 05/26/24 06:00 05/26/24 06:00 05/26/24 06:00 05/26/24 06:00 05/26/24 06:00 Oxygen Delivery Method Room Air Weight: 81.3 kg Body Mass Index (BMI) 30.7 Intake & Output: Intake and Output for Last 24 Hours 05/24/24 05/25/24 05/26/24 23:59 23:59 23:59 Intake Total 2874.41 / 2874.41 250 / 250 Output Total 1600 / 1600 1800 / 1800 Balance 1274.41 / 1274.41 -1550 / -1550 Lab / Micro Data 05/25/24 11:37 Labs: Laboratory Results - last 24 hr 05/25/24 11:37: WBC 9.1, RBC 4.24, Hgb 12.7, Hct 36.6 L, MCV 86.3, MCH 30.0, MCHC 34.7, RDW Std Deviation 40.0, RDW Coeff of Kirsten 12.8, Plt Count 177, MPV 12.0, Immature Gran % (Auto) 0.600, Neut % (Auto) 70.2 H, Lymph % (Auto) 23.4, [place] % (Auto) 5.2, Eos % (Auto) 0.4, Baso % (Auto) 0.2, Absolute Neuts (auto) 6.4, Absolute Lymphs (auto) 2.12, Nucleated RBC % 0, Syphilis Total Ab Non- reactive, Blood Type A POSITIVE, Antibody Screen NEGATIVE ROS Constitutional Constitutional: Denies fatigue, fever(s) or malaise Eyes Eyes: Denies change in vision ENT HEENT: Denies dizziness or headache(s) Cardiovascular Cardiovascular: Denies chest pain, dyspnea or lightheadedness Respiratory/Chest Respiratory/Chest: Denies cough or dyspnea Gastrointestinal Gastrointestinal: Denies change in bowel habits Genitourinary Genitourinary: Denies burning urination or genital lesions Integumentary Integumentary: Denies rash Neurologic Neurologic: Denies confusion, dizziness, headache(s), numbness or weakness Physical Exam Const alert and no apparent distress Narrative: Fundus firm, below umbilicus. Assessment & Plan (1) (spontaneous vaginal delivery): PLAN: Plan Routine care. Pumping and feeding
[2024-05-26 13:15] VITALS: BP 109/71; PULSE 79; RESP 16; TEMP 36.6; O2SAT 100
[2024-05-26 15:35] VITALS: BP 110/73; PULSE 88; RESP 16; TEMP 36.4; O2SAT 98
[2024-05-26] MEDS: Senna/Docusate Sodium 1 Tablet PO (16:08)
--- NOTE | 2024-05-26 16:21 | CASEMGMT ---
Labor and Delivery Clip Coater 05/26/24: Sw completed chart review and acknowledges social work consult due to maternal mental health history. Sw presented to bedside and introduced self to mother and father of baby. Sw completed psychosocial assessment, discussed supports and resources that are available to parents at this time. Parents report that they have obtained everything that they need for baby and have natural supports in place. MOB states that she is feeling well, denies anxiety, feeling down/ depressed or emotional. Complete assessment to be entered. Nataliia Chiang, [employer] SUPERVISOR, SCIENTIFIC TECHNICAL WRITER
[2024-05-26 20:38] VITALS: BP 124/72; PULSE 82; RESP 16; TEMP 36.6; O2SAT 98
[2024-05-26] MEDS: MEASLES,MUMPS,RUBELLA VACC/PF 0.5 ML SC (21:19)
[2024-05-26] MEDS: Ibuprofen 600 MG Tablet PO (23:51)
[2024-05-27] MEDS: Acetaminophen 500 MG Tablet 1000 MG PO ×2 (00:52→10:05)
[2024-05-27 02:00] VITALS: BP 113/62; PULSE 80; RESP 18; TEMP 36.6; O2SAT 99
--- NOTE | 2024-05-27 07:09 | PN.OBGYN_ITS ---
Subjective Subjective Doing well. Ambulating and voiding without difficulty. Mild lochia. Breast feeding. Objective Data Objective Data Vital Signs: Vital Signs Temp Pulse Resp BP Pulse Ox O2 Del Method 97.8 F 80 18 113/62 99 Room Air 05/27/24 02:00 05/27/24 02:00 05/27/24 02:00 05/27/24 02:00 05/27/24 02:00 05/27/24 02:00 Oxygen Delivery Method Room Air Weight: 81.3 kg Body Mass Index (BMI) 30.7 Intake & Output: Intake and Output for Last 24 Hours 05/25/24 05/26/24 05/27/24 23:59 23:59 23:59 Intake Total 2874.41 / 2874.41 250 / 250 Output Total 1600 / 1600 1800 / 1800 Balance 1274.41 / 1274.41 -1550 / -1550 Lab / Micro Data 05/25/24 11:37 Labs: Laboratory Results - last 24 hr 05/25/24 11:37: WBC 9.1, RBC 4.24, Hgb 12.7, Hct 36.6 L, MCV 86.3, MCH 30.0, MCHC 34.7, RDW Std Deviation 40.0, RDW Coeff of Kirsten 12.8, Plt Count 177, MPV 12.0, Immature Gran % (Auto) 0.600, Neut % (Auto) 70.2 H, Lymph % (Auto) 23.4, [place] % (Auto) 5.2, Eos % (Auto) 0.4, Baso % (Auto) 0.2, Absolute Neuts (auto) 6.4, Absolute Lymphs (auto) 2.12, Nucleated RBC % 0, Syphilis Total Ab Non- reactive, Blood Type A POSITIVE, Antibody Screen NEGATIVE ROS Constitutional Constitutional: Denies fatigue, fever(s) or malaise Eyes Eyes: Denies change in vision ENT HEENT: Denies dizziness or headache(s) Cardiovascular Cardiovascular: Denies chest pain, dyspnea or lightheadedness Respiratory/Chest Respiratory/Chest: Denies cough or dyspnea Gastrointestinal Gastrointestinal: Denies change in bowel habits Genitourinary Genitourinary: Denies burning urination or genital lesions Integumentary Integumentary: Denies rash Neurologic Neurologic: Denies confusion, dizziness, headache(s), numbness or weakness Physical Exam Const alert and no apparent distress Narrative: Fundus firm, below umbilicus. Assessment & Plan (1) (spontaneous vaginal delivery): PLAN: Plan Discharge home
--- NOTE | 2024-05-27 07:11 | PCM.DC.SUM ---
Providers Date of Admission: 05/25/24 Date of Discharge: 05/27/24 Primary Care Physician: Josee Primary Care Phys Reason For Visit: VAG Diagnosis Discharge Diagnosis (1) (spontaneous vaginal delivery): Status: Acute Code(s): O80 - Encounter for full-term uncomplicated delivery Plan Discharge home Medications at Discharge Home Medications vit no.95-ferrous fumarate 28 mg-folic acid 800 mcg tablet () 1 tab PO DAILY 03/21/24 pantoprazole 40 mg granules delayed-release for susp in packet (Protonix) 40 mg PO DAILY 05/25/24 sennosides 8.6 mg-docusate sodium 50 mg tablet (Stimulant Laxative Plus) 1 - 2 tab PO DAILY PRN PRN Constipation #30 tabs 05/27/24 Hospital Course Operations None Procedures None Summary of Care Provided Minutes Spent on Discharge: 20 Hospital Course: Admitted with active labor. without complication. Pumping and feeding Physical Exam Const alert and no apparent distress Narrative: Fundus firm, below umbilicus. Weight / BMI Weight Weight: 81.3 kg Body Mass Index (BMI) 30.7 ABG / Lab / Microbiology Data 05/25/24 11:37 D/C Instructions May resume sexual activity in: 6 weeks DC O2, CPAP, BIPAP Needs Home O2 Discharge instructions: No Please Follow Up With: Viri Parekh MD When: Follow up with our office in 1-2 and 6 weeks or as needed. [phone] Meaningful Use Info Meaningful Use Meaningful Use Diagnoses (Choose all that apply): None applicable Ischemic Stroke Statin Dosing Therapy Reference: STATIN DOSE THERAPY REFERENCE: * Patients > 75 years receive moderate or high dose statin therapy. * Patients 75 years or YOUNGER should receive HIGH intensity statin dose unless contraindicated. You will be required to document reason for non-treatment if statin daily dose does not meet guidelines. HIGH DOSE STATIN THERAPY DAILY Atorvastatin > than or = to 40 mg Rosuvastatin > than or = to 20 mg Amlodipine + Atorvastatin > than or = to 2.5/40 mg Ezetimibe + Simvastatin 10/80 mg Simvastatin 80mg Discharge Plan Admission Admit Date/Time: 05/25/24 11:24 Primary Reason for Your Visit: labor Attending Provider: Laxmi Simons Primary Care Provider: Care Physician,No Primary Discharge Orders/Prescriptions Prescriptions: New sennosides-docusate sodium [Stimulant Laxative Plus] 8.6-50 mg Tablet 1 - 2 tab PO DAILY PRN PRN (Reason: Constipation) Qty: 30 0RF Continued PNV cmb#95-ferrous fumarate-FA [] 28 mg iron- 800 mcg tablet 1 tab PO DAILY pantoprazole [Protonix] [address] for susp in packet 40 mg PO DAILY Discontinued aspirin 81 mg capsule 81 mg PO DAILY ondansetron 4 mg tablet,disintegrating 4 mg PO TID PRN (Reason: nausea and vomiting) Qty: 21 0RF Referrals / Follow Up: Care Physician,No Primary [Primary Care Provider] - Disposition Disposition (needs filled in before D/C Order can be placed): Home, Self Care
[2024-05-27 08:00] VITALS: BP 110/71; PULSE 82; RESP 16; TEMP 36.1
[2024-05-27] MEDS: Senna/Docusate Sodium 1 Tablet PO (10:15)
== END 2024-05-27 11:10 | disposition home or self-care (01) | DRG 560 ==
LOC: WPOUT 11:27 → WP 11:29
PROVIDERS: Admitting Provider Obstetrics & Gynecology; Referring Provider Obstetrics & Gynecology; Visit Provider Obstetrics & Gynecology
DX: O80 Encounter for full-term uncomplicated delivery (principal); Z37.0 Single live birth; Z28.39 Other underimmunization status; Z3A.37 37 weeks gestation of pregnancy; Z79.82 Long term (current) use of aspirin; Z86.59 Personal history of other mental and behavioral disorders
CPT/HCPCS: 59025; 59050; 85025; 86780; 86850; 86900; 86901; 99221; G0378; J2405

== ENCOUNTER 2024-08-16 23:40 | Emergency (ER) | payer MEDICAID, SELFPAY ==
[2024-08-16 23:40] VITALS: BP 129/73; PULSE 66; RESP 18; TEMP 36.7; O2SAT 100; BMI 27.7
--- NOTE | 2024-08-17 | CT_ITS ---
PROCEDURE: ABDOMEN/PELVIS W IV CONT ONLY 08/17/2024 REASON FOR EXAM: LEFT SIDED ABD PAIN TECHNIQUE: Abdomen and pelvis CT with intravenous contrast. Coronal and Sagittal reconstruction series were provided. PATIENT PREPARATION: Per protocol ORAL CONTRAST TYPE: None. CONTRAST: 97 cc Isovue 370 intravenous One or more dose reduction techniques were used (e.g., Automated exposure control, adjustment of the mA and/or kV according to patient size, use of iterative reconstruction technique. RADIATION DOSE SUMMARY: CTDlvol: 11.85 mGy DLP: 604.73 mGycm COMPARISON: None available FINDINGS: The lung bases are clear. The liver, gallbladder, adrenal glands, right kidney, pancreas and spleen appear within limits. There is a 2 mm presenting axis left UVJ stone for example axial 99 with mild left hydroureteronephrosis. Mild asymmetrically decreased appearance of the left nephrogram suggesting slight renal nephrogram delay for example coronal 64. No perinephric stranding or urothelial thickening seen. Abdominal aorta appears within limits. No adenopathy. A few mildly prominent small bowel in the lower abdomen may represent mild focal ileus. No bowel dilation or free air. Normal caliber appendix without secondary signs. The bladder is mostly collapsed. The uterus and ovaries appear within limits with incidental note of a 1.9 cm crenated, involuting right ovarian corpus luteum cyst. Trace right pelvic free fluid. The visualized osseous structures appear within limits. CT/Abdomen/Pelvis W IV Cont ONLY IMPRESSION: There is a 2 mm presenting axis left UVJ stone for example axial 99 with mild l eft hydroureteronephrosis. Based on size likely will spontaneously passed. Mild asymmetrically decreased appearance of the left nephrogram suggesting slig ht renal nephrogram delay for example coronal 64. No perinephric stranding or urothelial thickening seen. Reading Location: [id number]
--- NOTE | 2024-08-17 00:02 | ED.VIS.GI ---
HPI HPI - GI History of Present Illness Chief Complaint: Abd Pain Informant: patient and spouse/S.O. Abdominal Pain/Flank Pain Onset: Today Context: Gradual Onset Timing: Continuous Quality: Sharp and Stabbing Location: LLQ and Left Flank Current Severity: Moderate Maximum Severity: Severe Worsened by: Nothing Relieved by: Nothing Nausea/Vomiting/Emesis GI Symptom: Positive for Nausea, Vomiting and - (2 days ago resolved.) Severity: Mild Diarrhea/Melena/Hematochezia GI Symptom: Positive for Diarrhea and - (Days ago resolved.) Severity: Mild Associated Symptoms Associated Symptoms: Negative for Dysuria, Frequency, Hematuria or Urgency LMP: 1 to 2 weeks ago. Narrative Narrative: 19-year-old female status post on 05/25/2024. Vaginal delivery at that time. No prior abdominal surgeries. States 2 days ago she had some nausea vomiting diarrhea that all resolved. Today started having left flank left lower quadrant abdominal pain. Denies any dysuria. No fever. Last menstrual period was 1 to 2 weeks ago. She currently has no bleeding or discharge. Prior similar symptoms: Yes Recent Illness/Hospitalization: No PFSH PFSH Medical History Anxiety Encounter for screening for COVID-19 Home Medications ?Medication ?Instructions ?Recorded ?Last Taken ?Type vit no.95-ferrous 1 tab PO DAILY 03/21/24 05/24/24 21:00 History fumarate 28 mg-folic acid 800 mcg 1 TAB tablet () pantoprazole 40 mg granules 40 mg PO DAILY 05/25/24 05/24/24 09:00 History delayed-release for susp in packet 40 mg (Protonix) sennosides 8.6 mg-docusate sodium 1 - 2 tab PO DAILY PRN PRN 05/27/24 Unknown Rx 50 mg tablet (Stimulant Laxative Constipation #30 tabs Plus) hydrocodone-acetaminophen 5-325mg 1 tab PO Q4H PRN pain 2 days #8 08/17/24 Unknown Rx 5mg-325mg tabs Allergy/AdvReac Type Severity Reaction Status Date / Time lactase (From D[employer]) Allergy Mild Abdominal Verified 08/16/24 23:44 cramping Family History Grandfather Leukemia DVT (deep venous thrombosis) Grandmother Breast cancer Grandmother Diabetes Heart disease Lung cancer Surgical History History of surgery History of removal of cyst H/O tooth extraction Social History Smoking Status: Never smoker alcohol intake: never what type of physical activity do you participate in: additional details: gym, sports seatbelt use: always ROS ROS ED ROS Narrative Nausea, vomiting and diarrhea. Resolved. Left flank and left lower quadrant abdominal pain. Constitutional Constitutional ED: Denies chills or fever(s) ENT ENT ED: Denies ear pain Cardiovascular Cardiovascular: Denies chest pain Respiratory/Chest Respiratory/Chest: Denies cough or dyspnea Gastrointestinal Gastrointestinal: Reports abdominal pain, diarrhea, nausea and vomiting; Denies constipation or melena Genitourinary Genitourinary ED: Denies dysuria or hematuria Musculoskeletal Musculoskeletal: Denies arthralgias Integumentary Denies abscess Neurologic Neurologic: Denies headache(s) Psychiatric Psychiatric: Denies anxiety Endocrine Endocrinology: Denies polydipsia Hematologic/Lymphatic Hematologic/Lymphatic: Denies easy bleeding Allergic/Immunologic Allergic/Immunologic ED: Denies mouth swelling, tongue swelling or urticaria EXAM Physical Exam Narrative Exam Narrative: 19-year-old female sitting upright in bed. Accompanied by significant other. She is emotionally distraught. Complaining of left flank pain. H EENT exam pupils round react light. Moist mucous membranes. Neck nontender. Lungs clear to auscultation bilaterally. Heart regular rhythm rate about 65 no murmur. Chest wall ribs nontender. Back nontender. Abdomen nondistended normal bowel sounds. Tender in the left lower quadrant. No ecchymosis or bruising. No rebound or rigidity. No hernia or mass. No obstruction. Moving all 4 extremities. Normal strength. Nontender no edema. Neurologically she is awake and alert. Answering questions following commands. Const Vital Signs: 08/16/24 23:40 08/17/24 01:23 Temperature 98.1 F 98.7 F Temperature Source Oral Pulse Rate 66 88 Respiratory Rate 18 16 Blood Pressure 129/73 H 123/71 H Blood Pressure Mean 91 88 Pulse Ox 100 98 Positive well nourished and well developed; Negative for cachectic, contractures or unkempt General Appearance ED: well developed; Negative for unkempt, cachectic, contractures, NAD or pallor Nutritional Appearance: Negative for cachectic HEENT Reports moist mucous membranes normocephalic and atraumatic Eyes PERRL and EOMs intact bilaterally Neck no lymphadenopathy, supple and no JVD General: Negative for tenderness Carotids: Negative for other Lymph Lymphatic: Negative for other Resp normal respiratory effort and clear to auscultation bilaterally Auscultation: Negative for rales, rhonchi or wheezes Cardio regular rate, regular rhythm, S1 normal heart sound, S2 normal heart sound and no murmurs Rate: Negative for bradycardia or tachycardic Rhythm: Negative for abnormal rhythm GI non-distended and no masses; Negative for non-tender Inspection: Negative for abdominal distention Auscultation: normoactive bowel sounds Palpation: soft and tender; Negative for guarding, rigid, hepatomegaly, splenomegaly, hernia, mass, pulsatile mass or rebound tenderness present Back/Spine no CVA tenderness General Back: Negative for CVA tenderness Cervical Spine: Negative for cervical spine tenderness Thoracic Spine / Upper Back: Negative for thoracic spinal tenderness Lumbar Spine / Lower Back: Negative for lumbar spinal tenderness Extremity full ROM General Extremety ED: Negative for edema or tenderness General Extremity: Negative for edema Neuro CN's II-XII intact bilaterally and moves all extremities Sensorium / Orientation: alert, oriented to person, oriented to place and oriented to time; Negative for orientation impaired, confused or lethargic Motor Exam: strength 5/5 throughout Psych thought process normal; Negative for mental status grossly normal Appearance: Negative for unkempt Mood & Affect: anxious and tearful Skin no wounds General Skin Exam: Negative for jaundice or pallor Lesions: no lesions Rashes: no rashes Trauma: Negative for abrasion Nails: Negative for discolored MDM MDM MDM Narrative Medical decision making narrative: 19-year-old female left side and left lower quadrant left flank pain. Differential would include diverticulitis, ovarian cyst, kidney stone, UTI versus other. CAT scan labs are being obtained. Morphine for pain Zofran for nausea. IV fluids. Repeat exam at 1:10 AM patient is starting to feel much better. She is given 2 doses of morphine. Zofran and Toradol. CAT scan shows a 2 mm left UVJ kidney stone. Consistent with her history and exam. Awaiting her urine results. Should be discharged home with Toradol and Motrin for pain. Urine strainer. Follow-up as needed. Patient doing well at 1:51 AM. Will be discharged home and treated as a kidney stone. [place] for pain. Motrin. Fluids. Urine strainer. Urology as needed. This should pass. History & Record Review Discussion w/independent historian: Patient Additional record(s) reviewed:: Prior inpatient record, Prior outpatient record, Prior ED visit and Prior labs Lab Data Attestation: I reviewed the patient's lab results. Lab results narrative: CBC normal. White count of 6.5. H&H 12 and 36. Platelets 186. Electrolytes show gap 14. BUN and creatinine of 16 and 0.9. Glucose 122. Liver enzymes unremarkable. Lipase normal at 22. Serum test negative. UA shows no infection. Occult blood. Greater than 100 red cells. No white cells. 1+ bacteria. No nitrates. Labs: Laboratory Results - last 24 hr 08/17/24 08/17/24 00:07 00:52 WBC 6.5 RBC 4.52 Hgb 12.9 Hct 36.6 L MCV 81.0 MCH 28.5 MCHC 35.2 RDW Std Deviation 36.1 RDW Coeff of Kirsten 12.5 Plt Count 186 MPV 11.4 Immature Gran % (Auto) 0.300 Neut % (Auto) 45.2 L Lymph % (Auto) 45.9 H [place] % (Auto) 6.6 Eos % (Auto) 1.7 Baso % (Auto) 0.3 Absolute Neuts (auto) 2.9 Absolute Lymphs (auto) 2.97 Nucleated RBC % 0 Sodium 140 Potassium 3.4 Chloride 104 Carbon Dioxide 22.0 Anion Gap 14 BUN 16 Creatinine 0.99 Estim Creat Clear Calc 88.92 Est GFR (MDRD) Non-Af 84 BUN/Creatinine Ratio 16.6 Glucose 122 H Calcium 9.2 Total Bilirubin 0.72 AST 29 ALT 39 H Alkaline Phosphatase 57 Total Protein 7.3 Albumin 4.6 Globulin 2.8 Albumin/Globulin Ratio 1.7 Lipase 22 Serum , Qual NEGATIVE Urine Color Yellow Urine Clarity Clear Urine pH 7.0 Ur Specific [place] 1.010 Urine Protein 30 H Urine Glucose (UA) Normal Urine Ketones 15 H Urine Occult Blood 150 H Urine Nitrite Negative Urine Bilirubin Negative Urine Urobilinogen 1 H Ur Leukocyte Esterase 25 H Urine RBC > 100 SEEN Urine WBC 0 SEEN Ur Squamous Epith Cells 0-5 SEEN Urine Bacteria 1+ Urine Mucus RARE Radiography Diagnostic Testing: Clinical Impression(s) from Imaging Studies Abdomen/Pelvis CT 08/17/24 00:00 IMPRESSION: There is a 2 mm presenting axis left UVJ stone for example axial 99 with mild left hydroureteronephrosis. Based on size likely will spontaneously passed. Mild asymmetrically decreased appearance of the left nephrogram suggesting slight renal nephrogram delay for example coronal 64. No perinephric stranding or urothelial thickening seen. Reading Location: [facility] CT of the abdomen pelvis with IV contrast shows a 2 mm left UVJ stone with hydroureter and hydronephrosis. Interpreted by the radiologist and myself. Discharge Plan Triage Chief Complaint: Abd Pain ED Provider: Blane Alfred Dx/Rx/DC Orders Clinical Impression: Abdominal pain, Kidney stone on left side Instructions: ED Kidney Stone with Pain Prescriptions: New hydrocodone-acetaminophen 5-325 mg tablet 1 tab PO Q4H PRN (Reason: pain) 2 Days Qty: 8 0RF No Action PNV cmb#95-ferrous fumarate-FA [] 28 mg iron- 800 mcg tablet 1 tab PO DAILY pantoprazole [Protonix] [address] for susp in packet 40 mg PO DAILY sennosides-docusate sodium [Stimulant Laxative Plus] 8.6-50 mg Tablet 1 - 2 tab PO DAILY PRN PRN (Reason: Constipation) Qty: 30 0RF Primary Care Provider: Care Physician,No Primary Referrals: Nurys Cervantes MD [Med Staff - Active Staff] - As Needed Care Physician,No Primary [Primary Care Provider] - Activity Restrictions/Additional Instructions: Your pain is from a 2 mm kidney stone on the left. It is already all the way down by your bladder. It should pass without any difficulty. Once he gets in your bladder your pain should resolve. [place] for severe pain. Otherwise you can use Motrin and Tylenol. Follow-up with your doctor as needed. Follow-up with the urologist as needed. But again it is a 2 mm stone should pass without any difficulty. Strain your urine to look to see if the stone passes. It will look like a tiny piece of gravel. Make sure you are drinking plenty of fluids it is the best way to prevent kidney stones. Print Language: Citizen Of [place] Disposition Disposition: Home, Self Care
[2024-08-17] MEDS: Ondansetron 4 MG/2 ML Vial IV (00:08)
[2024-08-17] MEDS: 0.9% Normal Saline (1000mL) 1,000 ML 999 ML IV (00:08)
[2024-08-17] MEDS: morphine 8 MG/ML Syringe 6 MG IV (00:08)
[2024-08-17 00:14] LABS: Absolute Lymphocyte Count 2.97 X10^3/uL (0.83-4.51); Absolute Neutrophil Count 2.9 X10^3/uL (2.0-7.7); Basophil# 0.02 X10^3/uL; Basophil% 0.3 % (0-1); Eosinophil# 0.11 X10^3/uL; Eosinophils% 1.7 % (0-5); Hematocrit 36.6 % (37-47); Hemoglobin 12.9 g/dL (12.0-15.0); Lymphocyte # 2.97 X10^3/ul (0.83-4.51); Lymphocyte % 45.9 % (19-41); Mean Corp Hgb Conc 35.2 g/dL (32-36); Mean Corpuscular Hgb 28.5 pg (27.0-32.0); Mean Platelet Vol. 11.4 fl (6.2-12.0); Monocyte# 0.43 X10^3/uL; Monocyte% 6.6 % (0-10); NRBC Flagged by Analyzer 0 % (0-5); Neutrophil # 2.92 X10^3/uL (2.7-7.7); Neutrophil % 45.2 % (47-70); Platelet Count 186 K/mm3 (150-450); RBC Distribution Width CV 12.5 % (11.6-14.6); RBC Distribution Width SD 36.1 fl (35.1-43.9); Red Blood Count 4.52 M/mm3 (4.2-5.4); White Blood Count 6.5 K/mm3 (4.4-11.0)
[2024-08-17 00:31] LABS: Internal QC Validated? YES +Cl - CLEAR BKGD; Pregnancy, Serum, hCG Quali. NEGATIVE Negative
[2024-08-17 00:37] LABS: ALB/GLOB Ratio 1.7 RATIO (0.9-2.4); AST(SGOT) 29 U/L (<=31); Alanine Aminotransfer ALT/SGPT 39 U/L (<=34); Albumin, Serum 4.6 g/dL (3.5-5.0); Alkaline Phosphatase 57 U/L (35-104); Anion Gap 14 (5-15); BUN 16 mg/dL (4-19); BUN/Creat Ratio 16.6 RATIO (10-20); Calcium,Total 9.2 mg/dL (7.6-11.0); Chloride 104 mmol/L (98-108); Creatinine, Serum 0.99 mg/dL (0.70-1.20); EST Glomerular Filtration Rate 84 (>60); Estimated Creatinine Clearance 88.92 ml/min (50-250); Globulin 2.8 g/dL (2.2-4.2); Glucose 122 mg/dL (70-99); Lipase 22 U/L (13-75); Potassium 3.4 mmol/L (3.3-5.1); Protein, Total 7.3 g/dL (5.9-8.4); Sodium Level 140 mmol/L (133-145); Total Bilirubin 0.72 mg/dL (0.00-1.30)
[2024-08-17] MEDS: Morphine 4 MG/ML Syringe IV (00:50)
[2024-08-17] MEDS: Ketorolac 30 MG/ML Syringe IV (00:50)
[2024-08-17 00:57] LABS: White Blood Cells 0 SEEN /hpf (0-5)
[2024-08-17 01:18] LABS: Color, Urine Yellow (Yellow); Glucose, Dipstick Normal (Normal); Ketone-Dipstick 15 mg/dl (Negative); Leukocyte Esterase-Dipstick 25 /ul (Negative); Nitrite-Dipstick Negative (Negative); Occult Blood-Urine 150 /ul (Negative); Protein-Dipstick 30 mg/dl (Negative); Urine Bilirubin Dipstick Negative (Negative); Urine Clarity Clear (Clear); Urine Urobilinogen 1 mg/dl (Normal)
[2024-08-17 01:23] VITALS: BP 123/71; PULSE 88; RESP 16; TEMP 37.1; O2SAT 98
[2024-08-17 01:35] LABS: Bacteria 1+ /hpf (None Seen); Mucous, Urine RARE /hpf (<or=2+); Red Blood Cells-Urine > 100 SEEN /hpf (0-5); Squamous Epithelial Cells - UA 0-5 SEEN /hpf (5-10)
== END 2024-08-17 02:10 | disposition home or self-care (01) ==
PROVIDERS: Emergency Provider Emergency Medicine; Visit Provider Emergency Medicine
DX: N13.2 Hydronephrosis with renal and ureteral calculous obstruction (principal); R10.9 Unspecified abdominal pain
CPT/HCPCS: 74177; 80053; 81001; 83690; 84703; 85025; 96361; 96374; 96375; 96376; 99285; Q9967; A4216; J2405

== ENCOUNTER 2024-12-05 10:40 | Emergency (ER) | payer MEDICAID, SELFPAY ==
[2024-12-05 10:40] VITALS: BP 115/76; PULSE 82; RESP 14; TEMP 36.6; O2SAT 98; BMI 26.4
--- NOTE | 2024-12-05 11:20 | ED.VIS.FEGU ---
HPI HPI - Female History of Present Illness Chief Complaint: Vag Bleeding Informant: patient Pain Pain: Positive for Pelvic Pain Onset: Days Context: Gradual Onset Timing: Intermittent Quality: Positive for Cramping Current Severity: Mild Maximum Severity: Mild Bleeding Issue: Positive for Vaginal bleeding Onset: Days Context: Gradual Onset Timing: Continuous Current Severity: Similar to period Associated Symptoms Sexually: Positive for Active Control: IUD P: 1 Ab: 0 Narrative Narrative: 19-year-old female G1, P1 Ab0. An IUD placed a couple weeks ago. She is on her most recent menstrual period for the last 3 to 4 days. She has had heavier bleeding and cramping. Denies any dysuria. No discharge. 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 No prior IUD history. Prior similar symptoms: No Recent Illness/Hospitalization: No PFSH PFS Medical History Anxiety Encounter for screening for COVID-19 Home Medications ?Medication ?Instructions ?Recorded ?Last Taken ?Type vit no.95-ferrous 1 tab PO DAILY 03/21/24 05/24/24 21:00 History fumarate 28 mg-folic acid 800 mcg 1 TAB tablet () pantoprazole 40 mg granules 40 mg PO DAILY 05/25/24 05/24/24 09:00 History delayed-release for susp in packet 40 mg (Protonix) sennosides 8.6 mg-docusate sodium 1 - 2 tab PO DAILY PRN PRN 05/27/24 Unknown Rx 50 mg tablet (Stimulant Laxative Constipation #30 tabs Plus) hydrocodone-acetaminophen 5-325mg 1 tab PO Q4H PRN pain 2 days #8 08/17/24 Unknown Rx 5mg-325mg tabs Allergy/AdvReac Type Severity Reaction Status Date / Time lactase (From [employer]) Allergy Mild Abdominal Verified 12/05/24 10:40 cramping Family History Grandfather Leukemia DVT (deep venous thrombosis) Grandmother Breast cancer Grandmother Diabetes Heart disease Lung cancer Surgical History History of surgery History of removal of cyst H/O tooth extraction Social History Smoking Status: Never smoker alcohol intake: never what type of physical activity do you participate in: additional details: gym, sports seatbelt use: always ROS ROS ED ROS Narrative Vaginal bleeding pelvic cramping. Constitutional Constitutional ED: Denies chills or fever(s) Eyes Eyes: Denies blurry vision ENT ENT ED: Denies ear pain Cardiovascular Cardiovascular: Denies chest pain Respiratory/Chest Respiratory/Chest: Denies cough or dyspnea Gastrointestinal Gastrointestinal: Denies abdominal pain Genitourinary Genitourinary ED: Denies dysuria or hematuria Musculoskeletal Musculoskeletal: Denies arthralgias Integumentary Denies abscess Neurologic Neurologic: Denies headache(s) Psychiatric Psychiatric: Denies anxiety or depression Endocrine Endocrinology: Denies heat intolerance Hematologic/Lymphatic Hematologic/Lymphatic: Denies easy bleeding Allergic/Immunologic Allergic/Immunologic ED: Denies mouth swelling EXAM Physical Exam Narrative Exam Narrative: 19-year-old female no acute distress significant other sitting at bedside. Vital signs are stable afebrile. H EENT exam pupils round reactive light. Moist mucous membranes. Lungs clear to auscultation bilaterally. Heart regular rhythm rate about 80 no murmur. Abdomen is soft, nontender nondistended normal bowel sounds without peritoneal signs. She has no tenderness. Moving all 4 extremities. Nontender no edema. Normal strength and range of motion. Back nontender. Neurologically she is awake alert. Answering questions following commands. No focal motor deficits. Const Vital Signs: 12/05/24 10:40 Temperature 98 F Temperature Source Temporal Pulse Rate 82 Respiratory Rate 14 Blood Pressure 115/76 Blood Pressure Mean 89 Pulse Ox 98 Oxygen Delivery Method Room Air Positive well nourished and well developed; Negative for obese, cachectic, contractures or unkempt General Appearance ED: well developed; Negative for unkempt, cachectic or contractures Nutritional Appearance: Negative for cachectic or obese HEENT Reports moist mucous membranes Eyes PERRL and EOMs intact bilaterally Neck no lymphadenopathy, supple and no JVD Chest Wall inspection of chest normal and palpation of chest normal Resp normal respiratory effort and clear to auscultation bilaterally Cardio regular rate, regular rhythm, S1 normal heart sound, no murmurs and no JVD GI normal to inspection, nondistended, normoactive bowel sounds, soft to palpation, non-tender, non-distended and no masses Auscultation: normoactive bowel sounds Back/Spine no CVA tenderness General Back: Negative for CVA tenderness Cervical Spine: Negative for cervical spine tenderness Thoracic Spine / Upper Back: Negative for thoracic spinal tenderness Lumbar Spine / Lower Back: Negative for lumbar spinal tenderness Extremity normal to inspection and full ROM General Extremety ED: Negative for edema or tenderness General Extremity: Negative for edema Neuro oriented x3 and CN's II-XII intact bilaterally Sensorium / Orientation: alert, oriented to person, oriented to place and oriented to time; Negative for confused, lethargic or stuporous Motor Exam: strength 5/5 throughout Psych mental status grossly normal Appearance: Negative for unkempt Attitude: No agitated Speech: No other Mood & Affect: Negative for depressed, anxious or tearful Skin no rashes or lesions noted and no wounds General Skin Exam: Negative for jaundice Rashes: No rashes noted MDM MDM MDM Narrative Medical decision making narrative: 19-year-old female vaginal bleeding most likely secondary to recent IUD placed. Blood count of be obtained and a test. Exam is benign. She is in no distress. Repeat exam patient doing well around 12:25 PM. We went over her test results. I think is a secondary to her IUD. 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 History & Record Review Discussion w/independent historian: Patient and Family Lab Data Attestation: I reviewed the patient's lab results. Lab results narrative: CBC shows a white count of 3.3. H&H of 12.0 and 33.9. Platelets 148. Serum test negative. Labs: Laboratory Results - last 24 hr 12/05/24 11:27 WBC 3.3 L RBC 4.08 L Hgb 12.0 Hct 33.9 L MCV 83.1 MCH 29.4 MCHC 35.4 RDW Std Deviation 40.3 RDW Coeff of Kirsten 13.4 Plt Count 148 L MPV 11.1 Serum , Qual NEGATIVE Discharge Plan Triage Chief Complaint: Vag Bleeding ED Provider: Blane Alfred Dx/Rx/DC Orders Prescriptions: No Action PNV cmb#95-ferrous fumarate-FA [] 28 mg iron- 800 mcg tablet 1 tab PO DAILY pantoprazole [Protonix] [address] for susp in packet 40 mg PO DAILY sennosides-docusate sodium [Stimulant Laxative Plus] 8.6-50 mg Tablet 1 - 2 tab PO DAILY PRN PRN (Reason: Constipation) Qty: 30 0RF hydrocodone-acetaminophen 5-325 mg tablet 1 tab PO Q4H PRN (Reason: pain) 2 Days Qty: 8 0RF Primary Care Provider: Care Physician,No Primary Referrals: Care Physician,No Primary [Primary Care Provider] - Print Language: Canadian
--- NOTE | 2024-12-05 11:25 | CM.ED ---
Date of referral: 12/05/24 Reason for referral: No Primary Care Physician (PCP) on file Referred by: Social Work Identification Patient provided consent to social work visit. Patient confirmed she is not established with a PCP. Dairy Bar Manager provided patient with a written handout for the [facility] which patient expressed appreciation for. Amelia Owens, SUPERVISOR F[employer]ER PROCESSING, MANAGER INVESTMENT
[2024-12-05 11:35] LABS: Hematocrit 33.9 % (37-47); Hemoglobin 12.0 g/dL (12.0-15.0); Mean Corp Hgb Conc 35.4 g/dL (32-36); Mean Corpuscular Volume 83.1 fL (81-99); Mean Platelet Vol. 11.1 fl (6.2-12.0); Platelet Count 148 K/mm3 (150-450); RBC Distribution Width CV 13.4 % (11.6-14.6); RBC Distribution Width SD 40.3 fl (35.1-43.9); Red Blood Count 4.08 M/mm3 (4.2-5.4); White Blood Count 3.3 K/mm3 (4.4-11.0)
[2024-12-05 11:48] LABS: Internal QC Validated? YES +Cl - CLEAR BKGD; Pregnancy, Serum, hCG Quali. NEGATIVE Negative; Record Kit Lot#, Serum Preg. 0000962302
--- OUTSIDE RECORDS SUMMARY | 2024-12-05 12:13 | XMS RPT_ITS | CCD ---
Author Organization [facility] Care Team Providers Care Adult Day Care Worker Name Role Phone Javi Thapa Unavailable Ren Carlson MD Primary Care Provider Ren Carlson MD Primary Care Provider Unavailable Primary Care Provider Unavailabl e Unavailable Primary Care Provider Unavailabl e Care Physician, No Primary Primary Care Provider Unavailable Ronak WILKINSON, Dr. Hair Admit Provider Ronak WILKINSON, Dr. Hair Attending Provid er Dr. Laxmi Simons MD Referring Provid er Dr. Blane Alfred MD Emergency Provider [phone] Vlad Jay Attending Unavailable Care Physician, No Primary Primary Care Unava ilable Blane Alfred Attending Unavailable Care Physician, No Primary Primary Care Unava ilable Maxi Woodall Attending Unavailable Ren Carlson Primary Care Unavailable Laxmi Simons Admitting Unavail able Laxmi Simons Attending Unavail able Laxmi Simons Referring Unavail able Care Physician, No Primary Primary Care Unava ilable Leena Gaytan Referring Unavailable Ren Carlson Primary Care Unavailable Leena Gaytan Attending Unavailable ANITRA CALDWELL Attending Unavailable ANITRA CALDWELL Referring Unavailable ANITRA CALDWELL Attending Unavailable ANITRA CALDWELL Attending Unavailable LAXMI COLEMAN Attending Unavail able ANITRA CALDWELL Referring Unavailable LEENA GAYTAN Attending Unavailable LEENA GAYTAN Attending Unavailable LEENA GAYTAN Attending Unavailable PRAMOD ROMERO Referring Unavailable HAURY, PRAMOD Referring Unavailable PLOTTS, LEENA Attending Unavailable NATALIIA VAIL Attending Unavailable PLOTTS, LEENA Referring Unavailable PLOTTS, LEENA Referring Unavailable ZHANNA HAZEL Attending Unavailable ZHANNA HAZEL Referring Unavailable PLOTTS, LEENA Attending Unavailable PLOTTS, LEENA Referring Unavailable CALDWELL, ANITRA Referring Unavailable PLOTTS, LEENA Attending Unavailable YARED, NATALIIA Attending Unavailable YARED, NATALIIA Referring Unavailable CALDWELL, ANITRA Attending Unavailable PLOTTS, LEENA Attending Unavailable PLOTTS, LEENA Attending Unavailable Allergies Allergy Classification Reported Allergen(s) Allergy Type Date of Onset Reaction(s) Facility Lactase (3 sources) Lactase Drug Allergy 1 Other: See Comments [facility] (20 sources) Lactase; Translations: [LACTASE] Drug Allergy 1 Other: See Comments [facility] (18 sources) Eucalyptus extract; Translations: [EUCALYPTUS] Drug Allergy 4 Rash [facility] (1 source) Lactase Drug Allergy 5 [facility] Repository Medications Current Medications Medication Drug Class(es) Dates Sig (Normalized) Sig (Original) acetaminophen 325 mg / HYDROcodone bitartrate 5 mg oral tablet (3 sources) Opioid Agonist Start: 08-17-2024 take 1 tablet by mouth every four hours as needed for pain Hydrocodone-Aceta minophen 5-325 mg tablet Active 1 {tbl} PO Q4H as needed for pain 8 2 August 17, 2024 Start: 08-22-2015 End: 05-08-2017 take 1 mL by mouth every six hours as needed for cough Hydrocodone-Acetaminophen 1 BOTTLE solut ion Discontinued 5 mL PO EVERY 6 HOURS NEEDED as needed for Cough 120 August 22, 2015 1:37pm May 08, 2017 5:42pm causes drowsiness Start: 08-22-2015 End: 05-08-2017 take 1 mL by mouth every six hours as needed Hydrocodone-Acetaminophen Discontinued 5 ML PO EVERY 6 HOURS NEEDED 120 August 22, 2015 12:37pm May 08, 2017 4:42pm causes drowsiness copper 313 mg drug implant (2 sources) Copper-containing Intrauterine Device Start: 11-15-2024 End: 11-13-2034 copper intrauterine device 380 square mm (PARAGARD) docusate sodium 50 mg / sennosides, prison 8.6 mg oral tablet (1 source) Start: 05-27-2024 Sennosides-Docusate Sodium (Stimulant Laxative Plus) 8.6-50 mg Tablet Active 1 - 2 {tbl} PO DAILY NEEDED as needed for Constipation May 27, 2024 1:00am doxycycline hyclate 100 mg oral tablet (1 source) Tetracycline-class Drug Start: 10-21-2024 End: 10-28-2024 take 1 tablet by mouth twice daily doxycycline (VIBRA-TABS) 100 mg tablet Indications: Rhinosinusitis Take 1 tablet by mouth two times a day for 7 days. 14 tablet 10/21/2024 10/28/2024 Active famotidine 40 mg oral tablet (5 sources) Histamine-2 Receptor Antagonist Start: 03-19-2024 End: 04-18-2024 take 1 tablet by mouth once daily famotidine (PEPCID) 40 mg tablet Take 1 tablet by mouth once daily. 30 tablet 2 03/19/2024 04/18/2024 Active End: 04-21-2024 take 1 tablet by mouth twice daily famotidine (PEPCID) 20 mg tablet Take 20 mg by mouth two times a day. 04/21/2024 Discontinued (Course of therapy completed) mupirocin 0.02 mg/mg topical ointment (1 source) RNA Synthetase Inhibitor Antibacterial Start: 01-22-2023 End: 01-27-2023 mupirocin (BACTROBAN) 2 % ointment Apply to affected area three times daily for 5 days. 30 g 0 01/22/2023 01/27/2023 Active Comment on above: Apply to affected ar ea three times daily for 5 days. Speculator (Nk) (1 source) Start: 06-03-2023 Speculator (Nk) Active June 03, 2023 12:00am pantoprazole 40 mg oral granules (11 sources) Proton Pump Inhibitor Start: 05-25-2024 take 40 mg by mouth once daily Pantoprazole (Protonix) [address] for susp in packet Active 40 mg PO DAILY May 25, 2024 1:00am Start: 04-21-2024 End: 06-17-2024 take 1 tablet by mouth once daily pantoprazole DR (PROTONIX) 20 mg tablet Take 1 tablet by mouth once daily. 30 tablet 2 04/21/2024 06/17/2024 Discontinued (Discontinued by Patient) Pnv Cmb#95-Ferrous Fumarate-Fa () 28 mg iron- 800 mcg tablet (1 source) Start: 03-21-2024 Pnv Cmb#95-Ferrous Fumarate-Fa () 28 mg iron- 800 mcg tablet Active 1 {tbl} PO DAILY March 21, 2024 12:00am proparacaine hydrochloride 5 mg/ml ophthalmic solution (1 source) Local Anesthetic Start: 08-02-2022 End: 08-02-2022 proparacaine 0.5 % 1 Drop (ALCAINE) sertraline 25 mg oral tablet (8 sources) Serotonin Reuptake Inhibitor Start: 06-25-2024 End: 11-15-2024 take 1 tablet by mouth once daily sertraline (ZOLOFT) 25 mg tablet Take 1 tablet by mouth once daily. 30 tablet 11/15/2024 Active tropicamide 10 mg/ml ophthalmic solution (1 source) Anticholinergic Start: 08-02-2022 End: 08-02-2022 tropicamide 1 % 1 Drop (MYDRIACYL) Completed/Discontinued Medications Medication Drug Class(es) Dates Sig (Normalized) Sig (Original) amoxicillin 500 mg oral capsule (8 sources) Penicillin-class Antibacterial Start: 02-02-2019 End: 02-13-2019 take 1 capsule by mouth twice daily Amoxicillin 500 mg capsule Discontinued 500 mg PO TWICE A DAY 07 03February 02, 2019 12:00am February 11, 2019 12:00am February 13, 2019 12:09am Start: 08-28-2018 End: 09-07-2018 take 1 capsule by mouth twice daily Amoxicillin 500 mg capsule Discontinued 500 mg PO TWICE A DAY 07 03August 28, 2018 12:00am September 06, 2018 12:00am September 07, 2018 12:09am Start: 03-20-2017 AMOXICILLIN 50 0 MG CAPS 1 capsule 3 times a day AMOXICILLIN [id number] Javi WEAVER Start: 08-12-2016 End: 08-22-2016 AMOXICILLIN 500 MG TABS Take 1 tablet twice daily. AMOXICILLIN [id number] Luis WEAVER aspirin 81 mg oral tablet (20 sources) Platelet Aggregation Inhibitor, Nonsteroidal Anti-inflammatory Drug Start: 03-21-2024 End: 05-27-2024 take 1 capsule by mouth once daily Aspirin 81 mg capsule Discontinued 81 mg PO DAILY March 21, 2024 12:00am May 27, 2024 8:15am Start: 11-14-2023 End: 06-17-2024 take 1 tablet by mouth once daily aspirin, enteric coated (ECOTRIN LOW STRENGTH) 81 mg EC tablet Indications: Encounter for care in first trimester of first Take 1 tablet by mouth once daily. 90 tablet 3 02/25/2024 06/17/2024 Discontinued azelastine hydrochloride 0.137 mg/actuat metered dose nasal spray (1 source) Histamine-1 Receptor Antagonist Start: 03-21-2024 End: 05-25-2024 Azelastine 137 mcg (0.1 %) spray,non-aerosol Discontinued 2 NMA INTRANASAL TWICE A DAY March 21, 2024 12:00am May 25, 2024 11:59am administer into each nostril azithromycin 250 mg oral tablet (1 source) Macrolide Antimicrobial Start: 03-21-2024 End: 05-25-2024 Azithromycin (Zithromax Z-Xu) 250 mg tablet Discontinued 0 PO .COMPLEX March 21, 2024 12:00am May 25, 2024 11:59am For 250 mg dose pack: take 500 mg today (day 1), then 250 mg for 4 days (days 2-5) benzonatate 200 mg oral capsule (3 sources) Non-narcotic Antitussive Start: 03-21-2024 End: 05-25-2024 take 1 capsule by mouth three times daily as needed for cough Benzonatate 200 mg capsule Discontinued 200 mg PO THREE TIMES A DAY as needed for cough 15 March 21, 2024 12:00am May 25, 2024 11:59am Start: 05-08-2017 End: 07-12-2019 take 1 capsule by mouth three times daily as needed for cough Benzonatate 100 mg capsule Discontinued 100 mg PO THREE TIMES A DAY as needed for cough May 08, 2017 1:00am July 12, 2019 6:15pm ibuprofen 600 mg oral tablet (2 sources) Nonsteroidal Anti-inflammatory Drug Start: 06-01-2020 End: 06-26-2020 take 1 tablet by mouth four times daily Ibuprofen 600 MG tablet Discontinued 600 mg PO 4 TIMES DAILY June 01, 2020 1:00am June 26, 2020 10:23am ketoconazole 20 mg/ml medicated shampoo (20 sources) [...] h three times daily as needed. meloxicam 7.5 mg oral tablet (14 sources) Nonsteroidal Anti-inflammatory Drug Start: 07-31-2020 End: 06-03-2023 take 1 tablet by mouth once daily Meloxicam 7.5 mg tablet Discontinued 7.5 mg PO DAILY July 31, 2020 12:00am June 03, 2023 1:44am Start: 04-03-2020 End: 06-03-2023 take 1 tablet by mouth once daily Meloxicam 15 mg tablet Discontinued 15 mg PO DAILY June 09, 2020 1:00am June 03, 2023 1:44am Comment on above: Take 1 tablet by james once daily. metoclopramide 10 mg oral tablet (4 sources) Dopamine-2 Receptor Antagonist Start: 11-28-19 End: 12-28-19 take 1 tablet by mouth every eight hours as needed metoclopramide HCl (REGLAN) 10 mg tablet Take 1 tablet by mouth three times a day as needed. 90 tablet 1 11/28/2023 12/10/2023 Discontinued (Course of therapy completed) ondansetron 4 mg disintegrating oral tablet (20 sources) Serotonin-3 Receptor Antagonist Start: 03-21-20 End: 05-27-19 25 take 1 tablet by mouth three times daily as needed for nausea and vomiting Ondansetron 4 mg tablet,disintegrating Discontinued 4 mg PO THREE TIMES A DAY as needed for nausea and vomiting March 21, 2024 4:15am May 27, 2024 8:15am Start: 11-05-2023 End: 03-19-2024 ondansetron orally disintegr ating (ZOFRAN ODT) 4 mg disintegrating tablet EVERY 8 HOURS NEEDED as needed for Nausea 11/05/2023 03/19/2024 Discontinued (Course of therapy completed) phenylephrine hydrochloride 25 mg/ml ophthalmic solution (1 source) alpha-1 Adrenergic Agonist Start: 08-02-2022 End: 08-02-2022 PHENYLephrine 2.5 % 1 Drop (AK-DILATE, TYRELL-SYNEPHRINE) predniSONE 20 mg oral tablet (4 sources) Start: 03-21-2024 End: 05-25-2024 take 1 tablet by mouth once daily Prednisone 20 mg tablet Discontinued 20 mg PO DAILY 09 20March 21, 2024 12:00am May 25, 2024 11:59am Start: 01-22-2023 End: 04-02-2023 predniSONE (DELTASONE) 10 [...] tab daily for 3 days with food. Cyngbcar-Mr-Ihz-Fe- FA tab (20 sources) Start: 11-14-2023 End: 11-15-2024 take 1 tablet by mouth once daily Qrkvtxzu-Fl-Spj-Fe-FA tab Take 1 tablet by mouth once daily. With folic acid and DHA as covered by insurance. 30 tablet 11/14/2023 11/15/2024 Discontinued (Discontinued by Patient) Start: 11-14-2023 take 1 tablet by james th once daily Emctqkas-Rs-Nzr-Fe-FA tab Take 1 tablet by mouth once daily. With folic acid and DHA as covered by insurance. 30 tablet 11 11/14/2023 Active VIT 10-IRON FUM-FOLIC ORAL (19 sources) End: 03-18-2024 VIT 10-IRON FUM-FOL IC ORAL Take by mouth. 03/18/2024 Discontinued (Changing Therapy/Dosage Form) VIT 10- IRON FUM-FOLIC ORAL Take by mouth. Active VIT 10- IRON FUM-FOLIC ORAL Take by mouth. 0 Active promethazine hydrochloride 12.5 mg oral tablet (13 sources) Phenothiazine Start: 12-10-2023 End: 03-18-2024 take 1 tablet by mouth every six hours as needed promethazine (PHENERGAN) 12.5 mg tablet Take 1 tablet by mouth every 6 hours as needed. 30 tablet 1 12/10/2023 03/18/2024 Discontinued (Course of therapy completed) triamcinolone acetonide 0.25 mg/ml topical cream (10 sources) Corticosteroid Start: 02-22-2020 End: 01-01-2022 triamcinolone (KENALOG) 0.025 % cream Apply a thin film 2-4 times per day. Discontinue when control is achieved. 80 g 0 02/22/2020 01/01/2022 Discontinued Comment on above: Apply a thin film 2- 4 times per day. Discontinue when control is achieved. vitamin b6 50 mg oral tablet (20 sources) End: 06-17-2024 take 1 tablet by mouth once daily pyridoxine, vitamin B6, (VITAMIN B-6) 50 mg tablet Take 50 mg by mouth once daily. 06/17/2024 Discontinued (Discontinued by Patient) Problems Active Problems Problem Classification Problem Date Documented Date Episodic/Chronic Abdominal pain (2 sources) Abdominal pain; Translations: [Unspecified abdominal pain] Onset: 08-23-2024 08-17-2024 Episodic Anxiety disorders (20 sources) Generalized anxiety disorder; Translations: [Generalized anxiety disorder] Onset: 11-14-2023 11-14-2023 Chronic Blindness and vision defects (2 sources) Bilateral myopia of eyes; Translations: [Myopia, bilateral] Episodic Calculus of urinary tract (1 source) Kidney stone; Translations: [Calculus of kidney] 08-17-2024 Episodic Chronic obstructive pulmonary disease and bronchiectasis (4 sources) Bronchitis; Translations: [Bronchitis, not specified as acute or chronic] Onset: 03-20-2017 03-20-2017 Episodic Conditions associated with dizziness or vertigo (1 source) Dizziness; Translations: [Dizziness and giddiness] 11-05-2023 Episodic Contraceptive and procreative management (1 source) Encounter for insertion of intrauterine contraceptive device; Translations: [Encounter for IUD insertion] Onset: 11-15-2024 Episodic E Codes: Natural/environment (1 source) Cat bite - wound; Translations: [Bitten by cat, initial encounter] Episodic Inflammatory diseases of female pelvic organs (1 source) Acute vaginitis; Translations: [Acute vaginitis] 11-14-2023 Episodic Joint disorders and dislocations; trauma-related (5 sources) 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; Translations: [Loose body in knee, left knee] Chronic Mood disorders (2 sources) Depressive disorder; Translations: [Depression] 06-03-2023 Chronic OB-related trauma to perineum and vulva (1 source) First degree perineal laceration; Translations: [First degree perineal laceration during delivery] 06-17-2024 Episodic Other bone disease and musculoskeletal deformities (1 source) Osteochondritis dissecans; 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, 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 Other complications of (10 sources) Nausea and vomiting; Translations: [Vomiting of , unspecified] Onset: 11-17-2023 11-17-2023 Episodic Other complications of (1 source) Backache; Translations: [Back pain in ] 01-23-2024 Episodic Other complications of (2 sources) Uterine size for dates discrepancy; Translations: [Uterine size-date discrepancy, third trimester] 05-11-2024 Episodic Other complications of (1 source) Reduced movement; Translations: [Decreased movements, unspecified trimester, not applicable or unspecified] 03-13-2024 Episodic Other complications of (1 source) Decreased movements, second trimester, not applicable or unspecified; Translations: [Decreased movements, second trimester, not applicable or unspecified] Onset: 06-01-2024 Episodic Other lower respiratory disease (2 sources) Cough; Translations: [Cough] 06-07-2021 Episodic Other lower respiratory disease (2 sources) Cough; Translations: [Acute cough] 10-21-2024 Episodic Other non-traumatic joint disorders (4 sources) Pain in unspecified knee; Translations: [Pain in joint, lower leg] Episodic Other non-traumatic joint disorders (4 sources) Instability of left patellofemoral joint; Translations: [Other instability, left knee] Episodic Other screening for suspected conditions (not mental disorders or infectious disease) (1 source) Finding related to ; Translations: [Encounter for suspected placental problem ruled out] 04-21-2024 Episodic Other skin disorders (1 source) Eruption; Translations: [Rash and other nonspecific skin eruption] 01-22-2023 Episodic Other upper respiratory infections (2 sources) Chronic sinusitis, unspecified; Translations: [Unspecified sinusitis (chronic)] Onset: 10-21-2024 10-21-2024 Chronic Other upper respiratory infections (13 sources) Pharyngitis; Translations: [Streptococcal sore throat] Onset: 08-12-2016 03-20-2017 Episodic Poisoning by other medications and drugs (2 sources) Accidental acetaminophen overdose; Translations: [Poisoning by 4-Aminophenol derivatives, accidental (unintentional), initial encounter] 06-03-2023 Episodic Residual codes; unclassified (3 sources) Pain; [...] 02-25-2024 Episodic Residual codes; unclassified (1 source) Gestation period, 29 weeks; Translations: [29 weeks gestation of ] 03-29-2024 Episodic Residual codes; unclassified (2 sources) Gestation period, 32 weeks; Translations: [32 weeks gestation of ] 04-21-2024 Episodic Residual codes; unclassified (1 source) Gestation period, 34 weeks; Translations: [34 weeks gestation of ] 05-05-2024 Episodic Residual codes; unclassified (1 source) Gestation period, 36 weeks; Translations: [36 weeks gestation of ] 05-18-2024 Episodic Residual codes; unclassified (1 source) Gestation period, 27 weeks; Translations: [27 weeks gestation of ] 03-13-2024 Episodic Residual codes; unclassified (2 sources) Gestation period, 37 weeks; Translations: [37 weeks gestation of ] 06-04-2024 Episodic Sprains and strains (4 sources) Sprain of knee; Translations: [Sprain of unspecified site of left knee, initial encounter] 06-02-2020 Episodic Unclassified (20 sources) [facility] Education - COMMON Onset: 11-14-2023 11-14-2023 Unclassified (20 sources) Education - [place] Onset: 11-14-2023 11-14-2023 Unclassified (1 source) Patient encounter status 07-28-2024 Unclassified (1 source) Acute cough; Translations: [Acute cough] Onset: 10-21-2024 Unclassified (1 source) Rubella non-immune status, antepartum; Translations: [Rubella non-immune status, antepartum] Onset: 12-12-2023 Past or Other Problems Problem Classification Problem Date Documented Da te Episodic/Chronic Acquired foot deformities (20 sources) Talipes planus; Translations: [Flat foot [pes planus] (acquired), unspecified foot] Onset: 01-14-2019 01-14-2019 Episodic Anxiety disorders (10 sources) Anxiety disorder due to a general medical condition; Translations: [Anxiety disorder due to known physiological condition] Onset: 06-24-2024 06-24-2024 Episodic Diabetes mellitus without complication (20 sources) Abnormal glucose tolerance test; Translations: [Other abnormal glucose] Onset: 03-18-2024 03-18-2024 Episodic Genitourinary symptoms and ill-defined conditions (20 sources) Nocturnal enuresis; Translations: [Nocturnal enuresis] Onset: 10-16-2010 Resolved: 02-22-2020 02-22-2020 Chronic Hemorrhage during ; abruptio placenta; placenta previa (20 sources) Low lying placenta; Translations: [Low lying placenta NOS or without hemorrhage, unspecified trimester] Onset: 01-26-2024 Resolved: 04-21-2024 01-26-2024 Episodic Immunizations and screening for infectious disease (11 sources) Patient encounter status; Translations: [Encounter for screening for COVID-19] Onset: 03-16-2024 06-07-2021 Episodic Joint disorders and dislocations; trauma-related (20 sources) Dislocation of patellofemoral joint; Translations: [Unspecified dislocation of left patella, subsequent encounter] Onset: 02-04-2022 Resolved: 12-02-2023 Episodic Miscellaneous mental health disorders (14 sources) depression; Translations: [ depression] Onset: 06-24-2024 06-24-2024 Episodic Nausea and vomiting (6 sources) Nausea; Translations: [Nausea] Onset: 11-13-2023 08-27-2023 Episodic Other aftercare (20 sources) Surgical follow-up; Translations: [Encounter for follow-up examination after completed treatment for conditions other than malignant neoplasm] Onset: 02-04-2022 Resolved: 12-02-2023 Episodic Other and unspecified benign neoplasm (20 sources) Benign neoplasm of soft tissue; Translations: [Melanocytic nevi, unspecified] Onset: 02-22-2020 02-22-2020 Episodic Other complications of (20 sources) Vomiting of , unspecified; Translations: [Unspecified vomiting of , unspecified as to episode of care or not applicable] Onset: 11-17-2023 Resolved: 03-19-2024 12-01-2023 Episodic Other complications of (20 sources) Rubella non-immune; Translations: [Supervision of other high risk pregnancies, unspecified trimester] Onset: 12-12-2023 12-12-2023 Episodic Other complications of (20 sources) Heartburn; Translations: [Other specified related conditions, second trimester] Onset: 02-25-2024 02-25-2024 Episodic Other complications of (1 source) Diseases of the respiratory system complicating , third trimester; Translations: [Diseases of the respiratory system complicating , third trimester] Onset: 04-12-2024 Episodic Other complications of (1 source) Uterine size-date discrepancy, third trimester; Translations: [Uterine size-date discrepancy in third trimester] Onset: 05-18-2024 Episodic Other complications of (1 source) Other specified related conditions, third trimester; Translations: [Heartburn during in third trimester] Onset: 04-21-2024 Episodic Other complications of (1 source) Supervision of other high risk pregnancies, unspecified trimester; Translations: [Rubella non-immune status, antepartum] Onset: 12-12-2023 Episodic Other complications of (1 source) Other specified related conditions, second trimester; Translations: [Heartburn during in second trimester] Onset: 02-25-2024 Episodic Other connective tissue disease (20 sources) Ganglion cyst of left wrist; Translations: [Ganglion, left wrist] Resolved: 02-22-2020 02-22-2020 Episodic Other gastrointestinal disorders (2 sources) Heartburn; Translations: [Heartburn during in third trimester] Onset: 02-25-2024 Episodic Other inflammatory condition of skin (20 sources) Seborrheic dermatitis; Translations: [Seborrheic dermatitis, unspecified] Onset: 06-05-2016 06-05-2016 Episodic Other lower respiratory disease (20 sources) Chronic cough; Translations: [Chronic cough] Onset: 06-10-2017 Resolved: 11-25-2019 11-25-2019 Episodic Other non-traumatic joint disorders (20 sources) Pain in left knee; Translations: [Pain in joint, lower leg] Onset: 02-22-2020 Episodic Other and delivery including normal (20 sources) with uncertain dates; Translations: [Encounter for supervision of normal , unspecified, unspecified trimester] Onset: 11-14-2023 11-14-2023 Episodic Other upper respiratory disease (2 sources) Pain in throat; Translations: [Acute pharyngitis, unspecified] Onset: 08-12-2016 08-12-2016 Episodic Residual codes; unclassified (20 sources) Influenza vaccination declined; Translations: [Immunization not carried out because of patient refusal] Onset: 06-10-2017 Resolved: 12-02-2023 06-10-2017 Episodic Residual codes; unclassified (1 source) 36 weeks gestation of ; Translations: [36 weeks gestation of ] Onset: 05-18-2024 Episodic Residual codes; unclassified (1 source) 34 weeks gestation of ; Translations: [34 weeks gestation of ] Onset: 05-05-2024 Episodic Residual codes; unclassified (1 source) 32 weeks gestation of ; Translations: [32 weeks gestation of ] Onset: 04-21-2024 Episodic Residual codes; unclassified (1 source) 24 weeks gestation of ; Translations: [24 weeks gestation of ] Onset: 03-18-2024 Episodic Residual codes; unclassified (1 source) 27 weeks gestation of ; Translations: [27 weeks gestation of ] Onset: 03-16-2024 Episodic Residual codes; unclassified (1 source) 15 weeks gestation of ; Translations: [15 weeks gestation of ] Onset: 12-23-2023 Episodic Screening and history of mental health and substance abuse codes (20 sources) H/O: depression; Translations: [Personal history of other mental and behavioral disorders] Onset: 11-14-2023 11-14-2023 Episodic Results Test Name Value Interpretation Reference Range Facility CNOV 11-15-2024 CNOV Office Visit (OBGYWM ) BEATRIS FLETCHER ([id number]) 3 F Date Time Provider Department 11/15/24 4:00 PM LEENA GAYTAN OBROCHELLE During your visit today, we recorded the following information about you: Blood pressure Weight Last Period 108/76 59.4 kg 10/25/24 Leena Gaytan APRN.CNM 11/15/2024 5:11 PM Shelly Spear presents today for IUD insertion for contraception. Patient's last menstrual period was 10/10/2024 (exact date). GC/chlamydia: Not done: no risk factors and/or patient declines screening test: negative Side effects including irregular bleeding were discussed with the patient. The patient understands that it should be removed in 7 years or sooner if the patient desires a . IUD source: office provided IUD lot #: [id number] Exp date: 12/15/2026 UNIVERSAL PROTOCOL / SAFETY CHECKLIST Procedure to be Performed: Insertion Sign In: A Moment of CARE was completed. Appropriate PPE (Personal Protective Equipment) worn by all providers involved with the procedure. Special equipment not required. Patient/Surrogate Stated/Verified: Patient name, Date of , Relevant allergies, and The intended procedure Time Out: Relevant labs, photos, and/or imaging studies have been reviewed. Intended patient and procedure match the source document(s) (e.g. consent, HANDP, associated studies [imaging, pathology]) match the intended patient and procedure. Consent obtained and matches the intended procedure. Yes. Correct side/site is not applicable. Medications required for this procedure are verified. Fire risk assessed and is not applicable. Implants: are not applicable. Sign Out: Specimens not collected. All instruments, equipment, possible retained foreign bodies are accounted for. Yes. The post-procedure plan of care has been communicated to the patient or surrogate. The cervix was prepped with betadine. The uterus sounded to 7 cm and the uterus is Anteverted.. Using sterile technique, the ParaGard IUD was inserted without difficulty and the string was cut to 2 cm from the external os of the cervix. Patient tolerated procedure well. PLAN: Patient was advised to observe for signs and symptoms of infection including but not limited to fever, malodorous vaginal discharge and/or pain. The patient was told to check the string monthly for accurate placement. Bleeding expectations were reviewed. Follow up after next menses for string check. Leena Gaytan APRN.Roro Ybarra MA 11/15/2024 3:59 PM Signed POST IUD INSTRUCTIONS You may have irregular bleeding during the first 3 months of use. You may have mild-severe cramping for the next 48 hours. You may use over the counter medication (Motrin, Tylenol) as needed. Your IUD must be removed or replaced based on the following table: IUD Type Removed or replaced within: Radha 3 years Kyleena 5 years Mirena 8 years Liletta 8 years Paragard 10 years Call the office for signs/symptoms of infection such as severe cramping, fever, or unusual bleeding. Check for string placement as instructed by your doctor. If you have any additional questions, please contact the office. Referring Provider: LEENA GAYTAN [[id number]] Allergies As of Date: 11/15/2024 Noted Allergy Reaction EUCALYPTUS 05/05/2024 2 - Rash Comments: Chemical burn LACTASE 06/26/2020 14 - Other: See Comments Date Reviewed: 11/15/2024 Reviewed by: Umu, Roro, MA - Fully Assessed Reason for Visit: Insertion Of IUD [291] Primary Visit Diagnosis:Encounter for IUD insertion [Z30.430] Order(s):UA DIP,URINE HCG (POC) [2520379] Order #: [id number] [] copper intrauterine device 380 square mm (PARAGARD)Disp: Rfl: copper (PARAGARD) 380 square mm intrauterine device1 Intra Uterine Device by INTRAUTERINE route as directed.Disp: 1 eachRfl: 0 sertraline (ZOLOFT) 25 mg tabletTake 1 tablet by mouth once daily.Disp: 30 tabletRfl: 0 Prescriptions as of 11/24/2024 - copper (PARAGARD) 380 square mm intrauterine device 1 Intra Uterine Device by INTRAUTERINE route as directed. - sertraline (ZOLOFT) 25 mg tablet Take 1 tablet by mouth once daily. Problem List As Of Date 11/15/2024 Noted Resolved Nocturnal enuresis [N39.44] 10/16/2010 02/22/2020 [...] depression [Z86.59] 11/14/2023 Supervision of normal first (more content not included)... Normal [facility] CNOVon 10-21-2024 CNOV Office Visit (UCWSTR ) BEATRIS FLETCHER ([id number]) 3 F Date Time Provider Department 10/21/24 5:15 PM [facility] During your visit today, we recorded the following information about you: Temperature Pulse Respiration Blood pressure 97 degrees 78/minute 18/minute 101/68 Weight Last Period 63 kg 10/10/24 Zhanna Hazel APRN.MARINE SUPERINTENDENT 10/21/2024 5:54 PM Signed [facility] Subjective Beatris Fletcher is a 19 year old female. Patient presents with: Cough: Chest congestion, nasal congestion, SOB, increased mucous, runny nose, heaviness in chest x 1 week Patient came in with complaints of cough congestion. Patient says the cough is productive. Patient says it has been a week. Patient says she is very short of breath and feels tightness when she takes a deep breath in. Denies any other symptoms. The history is provided by the patient. No advertising space clerk was used. Cough Review of Systems Constitutional: Negative. HENT: Negative. Respiratory: Positive for cough. Objective BP 101/68 Pulse 78 Temp 36.1 ?C (97 ?F) Resp 18 Wt 63 kg (138 lb 14.2 oz) LMP 10/10/2024 (Exact Date) SpO2 98% No BMI 23.47 kg/m? Physical Exam Constitutional: Appearance: Normal appearance. HENT: Right Ear: Tympanic membrane, ear canal and external ear normal. Left Ear: Tympanic membrane, ear canal and external ear normal. Mouth/Throat: Mouth: Mucous membranes are moist. Pharynx: Oropharynx is clear. Eyes: Pupils: Pupils are equal, round, and reactive to light. Cardiovascular: Rate and Rhythm: Normal rate and regular rhythm. Heart sounds: Normal heart sounds. Pulmonary: Effort: Pulmonary effort is normal. Breath sounds: Normal breath sounds. Neurological: Mental Status: She is alert. PAST MEDICAL HISTORY Diagnosis Date Anemia Depression/anxiety Ganglion cyst of wrist, left Irregular menses Low-lying placenta (HCC) 01/26/2024 04/21/24- Resolved. Leena Gaytan APRN.CNM Repeat growth US at 32 weeks. Anitrasoren Caldwell APRN.ELIAZAR Post depression 06/24/2024 PAST SURGICAL HISTORY Procedure Laterality Date DENTAL SURGERY HX 2015 ORTHOPEDICS SURGERY HX knee torn meniscus WRIST Left cyst on left wrist ALLERGIES Eucalyptus and Lactase MEDICATIONS sertraline (ZOLOFT) 25 mg tablet Take 1 tablet by mouth once daily. Qockksuu-Bw-Adu-Fe-FA tab Take 1 tablet by mouth once daily. With folic acid and DHA as covered by insurance. FAMILY HISTORY Problem Relation Age of Onset [...] Never Smokeless tobacco: Never Vaping Use Vaping status: Former Quit date: 05/19/2021 Substance Use Topics Alcohol use: Not Currently Comment: occasionally Drug use: No {ASSESSMENT/PLAN: 1. Acute cough - ICD9: 786.2, ICD10: R05.1 (primary diagnosis) - XR CHEST 2V FRONTAL/LAT * * * * Physician Interpretation * * * * EXAMINATION: CHEST RADIOGRAPH (2 VIEW FRONTAL AND LATERAL) CLINICAL HISTORY: Acute cough MQ: XC2_6 EXAM DATE/TIME: 10/21/2024 5:20 PM COMPARISON: No relevant prior studies available. RESULT: Lines, tubes, and devices: None. Lungs and pleura: No consolidation. No lung mass. No pleural effusion. No pneumothorax. Cardiomediastinal silhouette: Normal cardiomediastinal silhouette. Bones and soft tissues: Unremarkable. IMPRESSION IMPRESSION: No acute radiographic abnormality. Golf Club Head Inspector And Adjuster: CHAPARRITA Transcribe Date/Time: Oct 21 2024 5:46P Dictated by : DANAE BAR MD 2. Rhinosinusitis - ICD9: 473.9, ICD10: J32.9 - Will begin treatment with as per antibiotic as written, see orders - DOXYCYCLINE HYCLATE 100 MG TABLET Patient said there is no chance of . Patient educated about proper use of medication supportive therapies. Patient will follow-up if signs and symptoms seem to getting worse not better. Patient agreeable to care plan. Zhanna Hazel APRN.MARINE SUPERINTENDENT MDM Procedures Allergies As of Date: 10/21/2024 Noted Allergy Reaction EUCALYPTUS 05/05/2024 2 - Rash Comments: Chemical burn LACTASE 06/26/2020 14 - Other: See Comments Date Reviewed: 10/21/2024 Reviewed by: Jessy Alicea LPN - Fully Assessed Reason for Visit: Cough [28] Cmt: Chest congestion, nasal congestion, SOB, increased mucous, runny (more content not included)... Normal [facility] XR CHEST 2V FRONTAL/LATon XR CHEST 2V FRONTAL/LAT * * *Final Report* * * DATE OF EXAM: Oct 21 2024 5:20PM WOX 5291 - XR CHEST 2V FRONTAL/LAT / PROCEDURE REASON: Acute cough * * * * Physician Interpretation * * * * EXAMINATION: CHEST RADIOGRAPH (2 VIEW FRONTAL and LATERAL) CLINICAL HISTORY: Acute cough MQ: XC2_6 EXAM DATE/TIME: 10/21/2024 5:20 PM COMPARISON: No relevant prior studies available. RESULT: Lines, tubes, and devices: None. Lungs and pleura: No consolidation. No lung mass. No pleural effusion. No pneumothorax. Cardiomediastinal silhouette: Normal cardiomediastinal silhouette. Bones and soft tissues: Unremarkable. IMPRESSION: No acute radiographic abnormality. Golf Club Head Inspector And Adjuster: CHAPARRITA Transcribe Date/Time: Oct 21 2024 5:46P Dictated by : DANAE BAR MD This examination was interpreted and the report reviewed and electronically signed by: DANAE BAR MD on Oct 21 2024 5:46PM EST [id number] Normal [facility] XR Chest PA and Lateralon IMPRESSION: No acute radiographic abnormality. Golf Club Head Inspector And Adjuster: CHAPARRITA Transcribe Date/Time: Oct 21 2024 5:46P Dictated by : DANAE BAR MD This examination was interpreted and the report reviewed and electronically signed by: DANAE BAR MD on Oct 21 2024 5:46PM EST DIVISION OF RADIOLOGY * * *Final Report* * * DATE OF EXAM: Oct 21 2024 5:20PM WOX 5291 - XR CHEST 2V FRONTAL/LAT / PROCEDURE REASON: Acute cough * * * * Physician Interpretation * * * * EXAMINATION: CHEST RADIOGRAPH (2 VIEW FRONTAL & LATERAL) CLINICAL HISTORY: Acute cough MQ: XC2_6 EXAM DATE/TIME: 10/21/2024 5:20 PM COMPARISON: No relevant prior studies available. RESULT: Lines, tubes, and devices: None. Lungs and pleura: No consolidation. No lung mass. No pleural effusion. No pneumothorax. Cardiomediastinal silhouette: Normal cardiomediastinal silhouette. Bones and soft tissues: Unremarkable. DIVISION OF RADIOLOGY Provider, [facility] - 10/21/2024 * * *Final Report* * * DATE OF EXAM: Oct 21 2024 5:20PM WOX 5291 - XR CHEST 2V FRONTAL/LAT / PROCEDURE REASON: Acute cough * * * * Physician Interpretation * * * * EXAMINATION: CHEST RADIOGRAPH (2 VIEW FRONTAL & LATERAL) CLINICAL HISTORY: Acute cough MQ: XC2_6 EXAM DATE/TIME: 10/21/2024 5:20 PM COMPARISON: No relevant prior studies available. RESULT: Lines, tubes, and devices: None. Lungs and pleura: No consolidation. No lung mass. No pleural effusion. No pneumothorax. Cardiomediastinal silhouette: Normal cardiomediastinal silhouette. Bones and soft tissues: Unremarkable. IMPRESSION IMPRESSION: No acute radiographic abnormality. Golf Club Head Inspector And Adjuster: PSCB Transcribe Date/Time: Oct 21 2024 5:46P Dictated by : DANAE BAR MD This examination was interpreted and the report reviewed and electronically signed by: DANAE BAR MD on Oct 21 2024 5:46PM EST [facility] Radiology Study observation (narrative) [facility] XR Chest PA and LateralOrder ed By: Cc Provider on 10-21-2024 [facility] CNOVon 09-17-2024 CNOV Office Visit (PSYLST ) JUSTINEBEATRIS ([id number]) 3 F Date Time Provider Department 09/17/24 10:00 AM YAREDNATALIIA Nichols ROSI During your visit today, we recorded the following information about you: Nataliia Vail LISW 09/17/2024 11:06 AM Signed GENERAL PSYCHOLOGY Session #: 1 (session count starts after PSYL NEW EVAL visit) Session conducted by phone due to poor Zoom risk control manager. She was unable to link to [employer] SUBJECTIVE: patient says she is doing ok, but describes a lot of OCD behaviors of cleaning, intrusive thinking about cleaning, and an inability to focus. She denies recent suicidal intent though had a thought of wanting to be in an MVA, though she did not want to . She has been out of sertraline for about a week d/t issues with her pharmacy. She can no longer be followed by OBGYN for her meds. Has had occasional crying spells. States her infant is good and is sleeping through the night. Partner is supportive. Initial assessment was completed. Patient Data Generalized Anxiety Disorder Scale (YOUNG-7) 06/24/2024 07/29/2024 09/17/2024 YOUNG - 7 SCORES Score 18 8 8 13 (0-4) minimal anxiety, (5-9) mild anxiety, (10-14) moderate anxiety, (15-21) severe anxiety Patient Health Questionnaire (PHQ-9) 06/24/2024 07/29/2024 09/17/2024 PHQ-9 Score 22 5 5 14 (0-4) minimal depression, (5-9) mild depression, (10-14) moderate depression, (15-19) moderately severe depression, (20-27) severe depression OBJECTIVE: treatment planning Mental Status Exam ASSESSMENT: Last seen in June. Appears to be doing slightly better with her mood though panic/anxiety/OCD symptoms are prominent. Describes distractibility and hyperactivity. Denies current suicidal ideation. Understands the importance of maintaining meds. DIAGNOSIS: PRIMARY: 1: Mood Disorder Major Depressive Disorder, Recurrent, Moderate Other: Anxiety Disorder Panic Disorder - Without Agoraphobia , Obsessive-Compulsive Disorder, and Generalized Anxiety Disorder PROVISIONAL: Child Onset Disorder Attention-Deficit/Hyper activity Disorder, Predominantly Hyperactive-Impulsive Type TREATMENT MODALITIES: Solution Focused Psychotherapy PROGRESS TO DATE: Alf Progress: Condition at intake Short Term Condition: Progress GOALS/OBJECTIVES/INTERV ENTIONS: Treatment plan: discussed asking OBGYN to send last refill to a different pharmacy Recommended M-IOP and she is interested Consult to Psychiatry placed Phone numbers were sent via [employer] She was advised of my BERT, though I will be available to her for the next month. Suicide protocol sent via [employer] Approximately 45 minutes were spent with the patient doing therapy. RADHA Fuentes Referring Provider: NATALIIA VAIL [[id number]] Allergies As of Date: 09/17/2024 Noted Allergy Reaction EUCALYPTUS 05/05/2024 2 - Rash Comments: Chemical burn LACTASE 06/26/2020 14 - Other: See Comments Date Reviewed: 07/28/2024 Reviewed by: Deloris Peña LPN - Fully Assessed Primary Visit Diagnosis:MDD (major depressive disorder), recurrent episode, moderate (HCC) [F33.1] Other Visit Diagnoses:Mixed obsessional thoughts and acts [F42.2] Panic disorder without agoraphobia [F41.0] Order(s):PROVIDER ORDERED FOLLOW UP [[id number]] Order #: [id number]: 1 Prescriptions as of 09/17/2024 - sertraline (ZOLOFT) 25 mg tablet Take 1 tablet by mouth once daily. - Msrzpogo-Qi-Ecy-Fe-FA tab Take 1 tablet by mouth once daily. With folic acid and DHA as covered by insurance. Problem List As Of Date 09/17/2024 Noted Resolved Nocturnal enuresis [N39.44] 10/16/2010 02/22/2020 [...] s*11/14/2023 Nausea and vomiting during [O21.9] 11/17/2023 03/19/2024 Normal first with uncertain date of L*11/17/2023 Rubella non-immune status, antepartum [O09.899,*12/12/2023 Low-lying placenta [O44.40] 01/26/2024 04/21/2024 Heartburn during [O26.899, R12] 02/25/2024 Elevated glucose tolerance test [R73.09] 03/18/2024 Post depression [F53.0] 06/24/2024 Anxiety disorder due to general medical conditi*06/24/2024 Encounter Status:Closed by NATALIIA VAIL on 09/17/24 Normal [facility] Abdomen/Pelvis W IV Cont ONL Yon 08-17-2024 Abdomen/Pelvis W IV Cont ONLY [facility] Services [address] [place] [id number] Abdomen/Pelvis W IV Cont ONLY MR#: [id number] Acct: [id number] Name: BEATRIS FLETCHER Rep #: [id number] : 2005 F 19 From: Basilio Jasso MD PCP: Care Physician,No Primary Status: REG ER Study: Abdomen/Pelvis W IV Cont ONLY Date of Exam: Exam# [id number] Ordering Dr: Blane Alfred MD PROCEDURE: ABDOMEN/PELVIS W IV CONT ONLY 08/17/2024 REASON FOR EXAM: LEFT SIDED ABD PAIN TECHNIQUE: Abdomen and pelvis CT with intravenous contrast. Coronal and Sagittal reconstruction series were provided. PATIENT PREPARATION: Per protocol ORAL CONTRAST TYPE: None. CONTRAST: 97 cc Isovue 370 intravenous One or more dose reduction techniques were used (e.g., Automated exposure control, adjustment of the mA and/or kV according to patient size, use of iterative reconstruction technique. RADIATION DOSE SUMMARY: CTDlvol: 11.85 mGy DLP: 604.73 mGycm COMPARISON: None available FINDINGS: The lung bases are clear. The liver, gallbladder, adrenal glands, right kidney, pancreas and spleen appear within limits. There is a 2 mm presenting axis left UVJ stone for example axial 99 with mild left hydroureteronephrosis. Mild asymmetrically decreased appearance of the left nephrogram suggesting slight renal nephrogram delay for example coronal 64. No perinephric stranding or urothelial thickening seen. Abdominal aorta appears within limits. No adenopathy. A few mildly prominent small bowel in the lower abdomen may represent mild focal ileus. No bowel dilation or free air. Normal caliber appendix without secondary signs. The bladder is mostly collapsed. The uterus and ovaries appear within limits with incidental note of a 1.9 cm crenated, involuting right ovarian corpus luteum cyst. Trace right pelvic free fluid. The visualized osseous structures appear within limits. CT/Abdomen/Pelvis W IV Cont ONLY IMPRESSION: There is a 2 mm presenting axis left UVJ stone for example axial 99 with mild left hydroureteronephrosis. Based on size likely will spontaneously passed. Mild asymmetrically decreased appearance of the left nephrogram suggesting slight renal nephrogram delay for example coronal 64. No perinephric stranding or urothelial thickening seen. Reading Location: [facility] CC: Dr. Blane Alfred MD; No Primary Care Physician Golf Club Head Inspector And Adjuster: Signed Normal [facility] Absolute neutrophil countOrd ered By: Blane Alfred on 08-17-2024 Neutrophils (Bld) [#/Vol] 2.9 10*3/uL 2.0-7.7 [facility] Anion gap in Serum or Plasma Ordered By: Blane Alfred on 08-17-2024 Anion gap [Moles/Vol] 14 mmol/L 5-15 [facility] BUN/creatinine ratioOrdered By: Blane Alfred on 08-17-2024 Urea nitrogen/Creatinine [Mass ratio] 16.6 mg/mg 10-20 [facility] Basophil percentageOrdered B y: Blane Alfred on 08-17-2024 Basophils/100 WBC (Bld) 0.3 % 0-1 [facility] Beta HCG ( test) Ql Ordered By: Blane Alfred on 08-17-2024 Serum Test, Qualitative Negative [facility] Bilirubin Test strip Ql (U)O rdered By: Blane Alfred on 08-17-2024 Bilirubin Ql (U) Negative Negative [facility] Bilirubin, totalOrdered By: Blane Alfred on 08-17-2024 Bilirubin [Mass/Vol] 0.72 mg/dL 0.00-1.30 [facility] CBC W/Diff, Automatedon Absolute Lymph 2.97 X10 3/uL Normal 0.83-4.51 [facility] Comment on above: Performed By: #### L 100.0100, L501.2450, L700.6800, L500.4050 #### [facility] [address] [place], [address] Absolute Neut 2.9 X10 3/uL Normal 2.0-7.7 [facility] Comment on above: Performed By: #### L 100.0100, L501.2450, L700.6800, L500.4050 #### [facility] [address] [place], [address] Basophils/100 WBC (Bld) 0.3 % Normal 0-1 [facility] Comment on above: Performed By: #### L 100.0100, L501.2450, L700.6800, L500.4050 #### [facility] [address] [place], [address] Eosinophils/100 WBC (Bld) 1.7 % Normal 0-5 [facility] Comment on above: Performed By: #### L 100.0100, L501.2450, L700.6800, L500.4050 #### [facility] [address] [place], [address] Erythrocyte distribution width (RBC) [Ratio] 12.5 % Normal 11.6-14.6 [facility] Comment on above: Performed By: #### L 100.0100, L501.2450, L700.6800, L500.4050 #### [facility] [address] [place], [address] Hematocrit (Bld) [Volume fraction] 36.6 % Low 37-47 [facility] Comment on above: Performed By: #### L 100.0100, L501.2450, L700.6800, L500.4050 #### [facility] [address] [place], [address] Hemoglobin (Bld) [Mass/Vol] 12.9 g/dL Normal 12.0-15.0 [facility] Comment on above: Performed By: #### L 100.0100, L501.2450, L700.6800, L500.4050 #### [facility] [address] [place], [address] IG% 0.300 Normal 0.0-0.9 [facility] Comment on above: Result Comment: IG% - Immature Granulocytes (promyelocytes, myelocytes and metamyelocytes) > 1% indicates that a LEFT SHIFT is Present. Performed By: #### L 100.0100, L501.2450, L700.6800, L500.4050 #### [facility] [address] [place], [address] Lymphocytes/100 WBC (Bld) 45.9 % High 19-41 [facility] Comment on above: Performed By: #### L 100.0100, L501.2450, L700.6800, L500.4050 #### [facility] [address] [place], [address] MCH (RBC) [Entitic mass] 28.5 pg Normal 27.0-32.0 [facility] Comment on above: Performed By: #### L 100.0100, L501.2450, L700.6800, L500.4050 #### [facility] [address] [place], [address] MCHC (RBC) [Mass/Vol] 35.2 g/dL Normal 32-36 [facility] Comment on above: Performed By: #### L 100.0100, L501.2450, L700.6800, L500.4050 #### [facility] [address] [place], [address] MCV (RBC) [Entitic vol] 81.0 fL Normal 81-99 [facility] Comment on above: Performed By: #### L 100.0100, L501.2450, L700.6800, L500.4050 #### [facility] [address] [place], [address] Monocytes/100 WBC (Bld) 6.6 % Normal 0-10 [facility] Comment on above: Performed By: #### L 100.0100, L501.2450, L700.6800, L500.4050 #### [facility] [address] [place], [address] Neutrophils/100 WBC (Bld) 45.2 % Low 47-70 [facility] Comment on above: Performed By: #### L 100.0100, L501.2450, L700.6800, L500.4050 #### [facility] [address] [place], [address] Nucleated RBC (Bld) [#/Vol] 0 10*3/uL Normal 0-5 [facility] Comment on above: Performed By: #### L 100.0100, L501.2450, L700.6800, L500.4050 #### [facility] [address] [place], [address] Platelet mean volume (Bld) [Entitic vol] 11.4 fL Normal 6.2-12.0 [facility] Comment on above: Performed By: #### L 100.0100, L501.2450, L700.6800, L500.4050 #### [facility] [address] [place], [address] Platelets (Bld) [#/Vol] 186 10*3/uL Normal 150-450 [facility] Comment on above: Performed By: #### L 100.0100, L501.2450, L700.6800, L500.4050 #### [facility] [address] [place], [address] RBC (Bld) [#/Vol] 4.52 10*6/uL Normal 4.2-5.4 [facility] Comment on above: Performed By: #### L 100.0100, L501.2450, L700.6800, L500.4050 #### [facility] [address] [place], [address] RDW SD 36.1 fl Normal 35.1-43.9 [facility] Comment on above: Performed By: #### L 100.0100, L501.2450, L700.6800, L500.4050 #### [facility] [address] [place], [address] WBC (Bld) [#/Vol] 6.5 10*3/uL Normal 4.4-11.0 [facility] Comment on above: Performed By: #### L 100.0100, L501.2450, L700.6800, L500.4050 #### [facility] [address] [place], [address] Carbon dioxide, total [Moles /volume] in Central venous bloodOrdered By: Blane Alfred on 08-17-2024 CO2 [Moles/Vol] 22.0 mmol/L 21.0-32.0 [facility] Chloride assayOrdered By: Román Alfred on 08-17-2024 Chloride [Moles/Vol] 104 mmol/L 98-108 [facility] Comprehensive Metabolic Prof ilon 08-17-2024 Albumin [Mass/Vol] 4.6 g/dL Normal 3.5-5.0 [facility] Comment on above: Performed By: #### L 500.4050, L100.0100 #### [facility] [address] [place], [address] Albumin/Globulin [Mass ratio] 1.7 {ratio} Normal 0.9-2.4 [facility] Comment on above: Performed By: #### L 500.4050, L100.0100 #### [facility] [address] [place], [place], [id number] ALK PHOS 57 U/L Normal 35-104 [facility] Comment on above: Performed By: #### L 500.4050, L100.0100 #### [facility] [address] [place], [address] ALT [Catalytic activity/Vol] 39 U/L High <=34 [facility] Comment on above: Performed By: #### L 500.4050, L100.0100 #### [facility] [address] [place], [address] AST [Catalytic activity/Vol] 29 U/L Normal <=31 [facility] Comment on above: Performed By: #### L 500.4050, L100.0100 #### [facility] [address] [place], [address] Bilirubin [Mass/Vol] 0.72 mg/dL Normal 0.00-1.30 [facility] Comment on above: Performed By: #### L 500.4050, L100.0100 #### [facility] [address] [place], [address] BUN/CRE 16.6 RATIO Normal 10-20 [facility] Comment on above: Performed By: #### L 500.4050, L100.0100 #### [facility] [address] [place], [address] Calcium [Mass/Vol] 9.2 mg/dL Normal 7.6-11.0 [facility] Comment on above: Performed By: #### L 500.4050, L100.0100 #### [facility] [address] [place], [address] Chloride [Moles/Vol] 104 mmol/L Normal 98-108 [facility] Comment on above: Performed By: #### L 500.4050, L100.0100 #### [facility] [address] [place], [address] CO2 [Moles/Vol] 22.0 mmol/L Normal 21.0-32.0 [facility] Comment on above: Performed By: #### L 500.4050, L100.0100 #### [facility] [address] [place], [address] Creatinine [Mass/Vol] 0.99 mg/dL Normal 0.70-1.20 [facility] Comment on above: Performed By: #### L 500.4050, L100.0100 #### [facility] [address] [place], [address] ECRCL 88.92 ml/min Normal 50-250 [facility] Comment on above: Performed By: #### L 500.4050, L100.0100 #### [facility] [address] [place], [address] GAP 14 Normal 5-15 [facility] Comment on above: Performed By: #### L 500.4050, L100.0100 #### [facility] [address] [place], [address] GFR/1.73 sq M.predicted among non-blacks MDRD (S/P/Bld) [Vol rate/Area] 84 mL/min/{1.73_m2} Normal >60 [facility] Comment on above: Result Comment: mL/m in/1.73m2 CKD-EPI Creatinine Equation (2020) Performed By: #### L 500.4050, L100.0100 #### [facility] [address] [place], [address] Globulin (S) [Mass/Vol] 2.8 g/dL Normal 2.2-4.2 [facility] Comment on above: Performed By: #### L 500.4050, L100.0100 #### [facility] [address] [place], [address] Glucose [Mass/Vol] 122 mg/dL High 70-99 [facility] Comment on above: Performed By: #### L 500.4050, L100.0100 #### [facility] [address] [place], [address] Potassium [Moles/Vol] 3.4 mmol/L Normal 3.3-5.1 [facility] Comment on above: Performed By: #### L 500.4050, L100.0100 #### [facility] [address] [place], [address] Sodium [Moles/Vol] 140 mmol/L Normal 133-145 [facility] Comment on above: Performed By: #### L 500.4050, L100.0100 #### [facility] [address] [place], [address] T PROT 7.3 g/dL Normal 5.9-8.4 [facility] Comment on above: Performed By: #### L 500.4050, L100.0100 #### [facility] [address] [place], [address] Urea nitrogen [Mass/Vol] 16 mg/dL Normal 4-19 [facility] Comment on above: Performed By: #### L 500.4050, L100.0100 #### [facility] [address] [place], [address] Emergency Department Summary on 08-17-2024 Emergency Department Summary [facility] [place] Medical Records Department [address] [place] [address] Emergency Department Summary 08/17/24 MR#: [id number] Acct: [id number] Name: BEATRIS FLETCHER Rep #: [id number] : 2005 19 From: Blane Alfred MD PCP: Care Physician,No Primary Status:REG ER Location: ED HPI HPI - GI History of Present Illness Chief Complaint: Abd Pain Informant: patient and spouse/S.O. Abdominal Pain/Flank Pain Onset: Today Context: Gradual Onset Timing: Continuous Quality: Sharp and Stabbing Location: LLQ and Left Flank Current Severity: Moderate Maximum Severity: Severe Worsened by: Nothing Relieved by: Nothing Nausea/Vomiting/Emesis GI Symptom: Positive for Nausea, Vomiting and - (2 days ago resolved.) Severity: Mild Diarrhea/Melena/Hematoc hezia GI Symptom: Positive for Diarrhea and - (Days ago resolved.) Severity: Mild Associated Symptoms Associated Symptoms: Negative for Dysuria, Frequency, Hematuria or Urgency LMP: 1 to 2 weeks ago. Narrative Narrative: 19-year-old female status post on 05/25/2024. Vaginal delivery at that time. No prior abdominal surgeries. States 2 days ago she had some nausea vomiting diarrhea that all resolved. To day started having left flank left lower quadrant abdominal pain. Denies any dysuria. No fever. Last menstrual period was 1 to 2 weeks ago. She currently has no bleeding or discharge. Prior similar symptoms: Yes Recent Illness/Hospitalization : No PFSH PFSH Medical History Anxiety Encounter for screening for COVID-19 Home Medications ???Medication ???Instructions ???Recorded ???Last Taken ???Type vit no.95-ferrous 1 tab PO DAILY 03/21/24 05/24/24 2 1:00 History fumarate 28 mg-folic acid 800 mcg 1 TAB tablet () pantoprazole 40 mg granules 40 mg PO DAILY 05/25/24 05/24/24 0 9:00 History delayed-release for susp in packet 40 mg (Protonix) sennosides 8.6 mg-docusate sodium 1 - 2 tab PO DAILY PRN PRN Unknown Rx 50 mg tablet (Stimulant Laxative Constipation #30 tabs Plus) hydrocodone-acetaminoph en 5-325mg 1 tab PO Q4H PRN pain 2 days #8 0 08/17/24 Unknown Rx 5mg-325mg tabs Allergy/AdvReac Type Severity Reaction Status Date / Time lactase (From Dairy [employer]) Allergy Mild Abdominal Verified 08/16/24 23:44 cramping Family History Grandfather Leukemia DVT (deep venous thrombosis) Grandmother Breast cancer Grandmother Diabetes Heart disease Lung cancer Surgical History History of surgery History of removal of cyst H/O tooth extraction Social History Smoking Status: Never smoker alcohol intake: never what type of physical activity do you participate in: additional details: gym, sports seatbelt use: always ROS ROS ED ROS Narrative Nausea, vomiting and diarrhea. Resolved. Left flank and left lower quadrant abdominal pain. Constitutional Constitutional ED: Denies chills or fever(s) ENT ENT ED: Denies ear pain Cardiovascular Cardiovascular: Denies chest pain Respiratory/Chest Respiratory/Chest: Denies cough or dyspnea Gastrointestinal Gastrointestinal: Reports abdominal pain, diarrhea, nausea and vomiting; Denies constipation or melena Genitourinary Genitourinary ED: Denies dysuria or hematuria Musculoskeletal Musculoskeletal: Denies arthralgias Integumentary Denies abscess Neurologic Neurologic: Denies headache(s) Psychiatric Psychiatric: Denies anxiety Endocrine Endocrinology: Denies polydipsia Hematologic/Lymphatic Hematologic/Lymphatic: Denies easy bleeding Allergic/Immunologic Allergic/Immunologic ED: Denies mouth swelling, tongue swelling or urticaria EXAM Physical Exam Narrative Exam Narrative: 19-year-old female sitting upright in bed. Accompanied by significant other. She is emotionally distraught. Complaining of left flank pain. H EENT exam pupils round react light. Moist mucous membranes. Neck nontender. Lungs clear to auscultation bilaterally. Heart regular rhythm rate about 65 no murmur. Chest wall ribs nontender. Back nontender. Abdomen nondistended normal bowel sounds. Tender in the left lower quadrant. No ecchymosis or bruising. No rebound or rigidity. No hernia or mass. No obstruction. Moving all 4 extremities. Normal strength. Nontender no edema. Neurologically she is awake and alert. Answering questions following commands. Const Vital Signs: 08/16/24 23:40 08/17/24 01:23 Temperature 98.1 F 98.7 F Temperature Source Oral Pulse Rate 66 88 Respiratory Rate 18 16 Blood Pressure 129/73 H 123/71 H Blood Pressure Mean 91 88 Pulse Ox 100 98 (more content not included)... Normal [facility] Eosinophil percentageOrdered By: Blane Alfred on 08-17-2024 Eosinophils/100 WBC (Bld) 1.7 % 0-5 [facility] Epithelial cells.squamous LM Ql (Urine sed)Ordered By: Blane Alfred on 08-17-2024 Epithelial cells.squamous LM.HPF (Urine sed) [#/Area] 0 /[HPF] 5-10 [facility] Erythrocyte distribution wid th ratioOrdered By: Blane Alfred on 08-17-2024 Erythrocyte distribution width (RBC) [Ratio] 12.5 % 11.6-14.6 [facility] Erythrocyte distribution wid th standard deviationOrdered By: Blane Alfred on 08-17-2024 Erythrocyte distribution width (RBC) [Entitic vol] 36.1 fL 35.1-43.9 [facility] Estimation of creatinine rey aranceOrdered By: Blane Alfred on 08-17-2024 Estimated Creatinine Clearance Calc 88.92 ml/min 50-250 [facility] GFR/1.73 sq M.predicted kris g non-blacks MDRD (S/P/Bld) [Vol rate/Area]Ordered By: Blane Alfred on 08-17-2024 Estimated GFR (MDRD) Non-Af Amer 84 >60 [facility] Comment on above: mL/min/1.73m2 CKD-EP I Creatinine Equation (2020) Glucose Ql (U)Ordered By: Román Alfred on 08-17-2024 Urine Glucose (UA) Normal mg/dl Normal [facility] Hematocrit Auto (Bld) [Volum e fraction]Ordered By: Blane Alfred on 08-17-2024 Hematocrit (Bld) [Volume fraction] 36.6 % Low 37-47 [facility] Hemoglobin measurementOrdere d By: Blane Alfred on 08-17-2024 Hemoglobin (Bld) [Mass/Vol] 12.9 g/dL 12.0-15.0 [facility] Immature granulocytes/100 WB C Auto (Bld)Ordered By: Blane Alfred on 08-17-2024 Immature granulocytes/100 WBC (Bld) 0.300 % 0.0-0.9 [facility] Comment on above: IG% - Immature Granu locytes (promyelocytes, myelocytes and metamyelocytes) > 1% indicates that a LEFT SHIFT is Present. Ketones Test strip Ql (U)Ord ered By: Blane Alfred on 08-17-2024 Ketones Ql (U) 15 mg/dl High Negative [facility] - Chemistry and C hemistry - challengeOrdered By: Blane Alfred on 08-17-2024 AST [Catalytic activity/Vol] 29 U/L <32 [facility] Lipaseon 08-17-2024 Lipase [Catalytic activity/Vol] 22 U/L Normal 13-75 [facility] Comment on above: Result Comment: Riccardo martin note: LIPASE revised reference range effective 22. New Lipase methodology. Expected to produce lower values than the previous assay method. NEW Reference Range: 13 - 75 U/L Performed By: #### L 500.4050, L100.0100 #### [facility] [address] [place] [address], [address] Lipase measurementOrdered By : Blane Alfred on 08-17-2024 Lipase [Catalytic activity/Vol] 22 U/L 13-75 [facility] Comment on above: Please note:LIPASE r evised reference range effective 22. New Lipase methodology. Expected to produce lower values than the previous assay method. NEW Reference Range: 13 - 75 U/L Lymphocytes Auto (Unsp spec) [#/Vol]Ordered By: Blane Alfred on 08-17-2024 Lymphocytes (Bld) [#/Vol] 2.97 10*3/uL 0.83-4.51 [facility] Lymphocytes/100 WBC Auto (Un sp spec)Ordered By: Blane Alfred on 08-17-2024 Lymphocytes/100 WBC (Bld) 45.9 % High 19-41 [facility] MCV (mean corpuscular volume ) determinationOrdered By: Blane Alfred on 08-17-2024 MCV (RBC) [Entitic vol] 81.0 fL 81-99 [facility] Mean corpuscular hemoglobin (MCH) determinationOrdered By: Blane Alfred on 08-17-2024 MCH (RBC) [Entitic mass] 28.5 pg 27.0-32.0 [facility] Mean corpuscular hemoglobin concentration (MCHC) determinationOrdered By: Blane Alfred on 08-17-2024 MCHC (RBC) [Mass/Vol] 35.2 g/dL 32-36 [facility] Mean platelet volume determi nationOrdered By: Blane Alfred on 08-17-2024 Platelet mean volume (Bld) [Entitic vol] 11.4 fL 6.2-12.0 [facility] Microscopic analysis of urin e for red blood cells (RBC)Ordered By: Blane Alfred on 08-17-2024 Urine RBC > 100 SEEN /hpf 0-5 [facility] Monocyte percentageOrdered B y: Blane Alfred on 08-17-2024 Monocytes/100 WBC (Bld) 6.6 % 0-10 [facility] Mucus LM Ql (Urine sed)Order ed By: Blane Alfred on 08-17-2024 Mucus Ql (Urine sed) RARE /hpf [facility] Neutrophil percentageOrdered By: Blane Alfred on 08-17-2024 Neutrophils/100 WBC (Bld) 45.2 % Low 47-70 [facility] Nitrite Test strip Ql (U)Ord ered By: Blane Alfred on 08-17-2024 Nitrite Ql (U) Negative Negative [facility] Nucleated red blood cell per centageOrdered By: Blane Alfred on 08-17-2024 Nucleated RBC/100 WBC (Bld) [Ratio] 0 % 0-5 [facility] Platelet countOrdered By: Román Alfred on 08-17-2024 Platelets (Bld) [#/Vol] 186 10*3/uL 150-450 [facility] Potassium (Unsp spec) [Mass/ Vol]Ordered By: Blane Alfred on 08-17-2024 Potassium [Moles/Vol] 3.4 mmol/L 3.3-5.1 [facility] ,Serum,hCG Quali.on 08-17-2024 HCG, SERUM QUAL Negative Normal [facility] Comment on above: Performed By: #### L 500.4050, L100.0100 #### [facility] [place], [address] Protein Test strip Ql (U)Ord ered By: Blane Alfred on 08-17-2024 Protein Ql (U) 30 mg/dl High Negative [facility] RBC Auto (Bld) [#/Vol]Ordere d By: Blane Alfred on 08-17-2024 RBC (Bld) [#/Vol] 4.52 10*6/uL 4.2-5.4 [facility] Serum creatinine measurement (mass/volume)Ordered By: Blane Alfred on 08-17-2024 Creatinine [Mass/Vol] 0.99 mg/dL 0.70-1.20 [facility] Serum globulin measurementOr dered By: Blane Alfred on 08-17-2024 Globulin (S) [Mass/Vol] 2.8 g/dL 2.2-4.2 [facility] Serum glucose measurement (m ass/volume)Ordered By: Blane Alfred on 08-17-2024 Glucose [Mass/Vol] 122 mg/dL High 70-99 [facility] Serum or plasma alanine milton otransferase (ALT) measurementOrdered By: Blane Alfred on 08-17-2024 ALT [Catalytic activity/Vol] 39 U/L High <35 [facility] Serum or plasma albumin harriet urement (mass/volume)Ordered By: Blane Alfred on 08-17-2024 Albumin [Mass/Vol] 4.6 g/dL 3.5-5.0 [facility] Serum or plasma albumin/glob ulin mass ratioOrdered By: Blane Alfred on 08-17-2024 Albumin/Globulin [Mass ratio] 1.7 {ratio} 0.9-2.4 [facility] Serum or plasma alkaline errol sphatase measurementOrdered By: Blane Alfred on 04-01-2025 ALP [Catalytic activity/Vol] 57 U/L 35-104 [facility] Serum or plasma calcium harriet urement (mass/volume)Ordered By: Blane Alfred on 08-17-2024 Calcium [Mass/Vol] 9.2 mg/dL 7.6-11.0 [facility] Serum or plasma urea nitroge n measurement (mass/volume)Ordered By: Blane Alfred on 08-17-2024 Urea nitrogen [Mass/Vol] 16 mg/dL 4-19 [facility] Sodium levelOrdered By: Blane Alfred on 08-17-2024 Sodium [Moles/Vol] 140 mmol/L 133-145 [facility] Total proteinOrdered By: Joshua Alfred on 08-17-2024 Protein [Mass/Vol] 7.3 g/dL 5.9-8.4 [facility] Urinalysis, Completeon 08-17 BACTERIA 1+ /hpf Normal None Seen [facility] Comment on above: Order Comment: CLEAN CATCH Performed By: #### L 500.4050, L100.0100 #### [facility] [address] [place], [address] EPI,SQUAMOUS 0-5 SEEN Normal 5-10 [facility] Comment on above: Order Comment: CLEAN CATCH Performed By: #### L 500.4050, L100.0100 #### [facility] [address] [place], [address] Mucus Ql (Urine sed) RARE Normal [facility] Comment on above: Order Comment: CLEAN CATCH Performed By: #### L 500.4050, L100.0100 #### [facility] [address] [place], [address] RBC > 100 SEEN Normal 0-5 [facility] Comment on above: Order Comment: CLEAN CATCH Performed By: #### L 500.4050, L100.0100 #### [facility] [address] [place], [address] BILIRUBIN URINE Negative Normal Negative [facility] Comment on above: Order Comment: CLEAN CATCH Performed By: #### L 500.4050, L100.0100 #### [facility] [address] [place], [address] Clarity (U) Clear Normal Clear [facility] Comment on above: Order Comment: CLEAN CATCH Performed By: #### L 500.4050, L100.0100 #### [facility] [address] [place], [address] Color (U) Yellow Normal Yellow [facility] Comment on above: Order Comment: CLEAN CATCH Performed By: #### L 500.4050, L100.0100 #### [facility] [address] [place], [address] GLUCOSE, UR Normal Normal Normal [facility] Comment on above: Order Comment: CLEAN CATCH Performed By: #### L 500.4050, L100.0100 #### [facility] [address] [place], [address] KETONE UR 15 mg/dl Abnormal Negative [facility] Comment on above: Order Comment: CLEAN CATCH Performed By: #### L 500.4050, L100.0100 #### [facility] [address] [place], [address] LEUK ESTERASE 25 /ul Abnormal Negative [facility] Comment on above: Order Comment: CLEAN CATCH Performed By: #### L 500.4050, L100.0100 #### [facility] [address] [place], [address] Nitrite Ql (U) Negative Normal Negative [facility] Comment on above: Order Comment: CLEAN CATCH Performed By: #### L 500.4050, L100.0100 #### [facility] [address] [place], [address] OCCULT BLOOD-UR 150 /ul Abnormal Negative [facility] Comment on above: Order Comment: CLEAN CATCH Performed By: #### L 500.4050, L100.0100 #### [facility] [address] [place], [address] pH UR 7.0 Normal 5.0 - 8.0 [facility] Comment on above: Order Comment: CLEAN CATCH Performed By: #### L 500.4050, L100.0100 #### [facility] [address] [place], [address] PROT DIPSTX 30 mg/dl Abnormal Negative [facility] Comment on above: Order Comment: CLEAN CATCH Performed By: #### L 500.4050, L100.0100 #### [facility] [address] [place], [address] SP.GR. DIPSTX 1.010 Normal 1.002-1.030 [facility] Comment on above: Order Comment: CLEAN CATCH Performed By: #### L 500.4050, L100.0100 #### [facility] [address] [place], [address] UROBILI 1 mg/dl Abnormal Normal [facility] Comment on above: Order Comment: CLEAN CATCH Performed By: #### L 500.4050, L100.0100 #### [facility] [address] [place], [address] WBC 0 SEEN Normal 0-5 [facility] Comment on above: Order Comment: CLEAN CATCH Performed By: #### L 500.4050, L100.0100 #### [facility] [address] [place], [address] Urine blood detectionOrdered By: Blane Alfred on 08-17-2024 Urine Occult Blood 150 /ul High Negative [facility] Urine clarityOrdered By: Joshua Alfred on 08-17-2024 Clarity (U) Clear Clear [facility] Urine color determinationOrd ered By: Blane Alfred on 08-17-2024 Color (U) Yellow Yellow [facility] Urine leukocyte esterase det ection by dipstickOrdered By: Blane Alfred on 08-17-2024 Leukocyte esterase Test strip Ql (U) 25 /ul High Negative [facility] Urine pHOrdered By: Blane stahl on 08-17-2024 pH (U) 7.0 [pH] 5.0 - 8.0 [facility] Urine sediment bacteria coun t by microscopy (number/high power field)Ordered By: Blane Alfred on 08-17-2024 Bacteria LM.HPF (Urine sed) [#/Area] 1 /[HPF] None Seen [facility] Urine specific gravity measu rementOrdered By: Blane Alfred on 08-17-2024 Specific gravity (U) [Rel density] 1.010 1.002-1.030 [facility] Urobilinogen Ql (U)Ordered B y: Blane Alfred on 08-17-2024 Urobilinogen (U) [Mass/Vol] 1 mg/dL High Normal [facility] White blood cell (WBC) count Ordered By: Blane Alfred on 08-17-2024 WBC (Bld) [#/Vol] 6.5 10*3/uL 4.4-11.0 [facility] White blood cell countOrdere d By: Blane Alfred on 08-17-2024 Urine WBC 0 SEEN /hpf 0-5 [facility] CNPNon 08-04-2024 CNPN Telephone (PSYLST) BEATRIS FLETCHER ([id number]) 3 F Date Time Provider Department 08/04/24 NATALIIA VAIL PSYLST During your visit today, we recorded the following information about you: Brenna Odell 08/04/2024 7:49 AM Signed 1st attempt- left DVM to notify provider out 08/04 2nd attempt- sent Mc to notify appointment rescheduled Allergies As of Date: 08/04/2024 Noted Allergy Reaction EUCALYPTUS 05/05/2024 2 - Rash Comments: Chemical burn LACTASE 06/26/2020 14 - Other: See Comments Date Reviewed: 07/28/2024 Reviewed by: Deloris Peña LPN - Fully Assessed Reason for Visit: Appointment Rescheduled [1024] Prescriptions as of 08/04/2024 - sertraline (ZOLOFT) 25 mg tablet Take 1 tablet by mouth once daily. - Zlquoede-Am-Osl-Fe-FA tab Take 1 tablet by mouth once daily. With folic acid and DHA as covered by insurance. 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 All information is from Patient report except when noted. This evaluation is NOT intended for forensic, disability or child custody purposes. Informed consent was discussed and signed by the patient. Visit performed via Virtual Visit Informed consent to deliver services discussed Patient aware of benefits of virtual visit services and is in agreement to participate Originating site for client [place] Originating site for provider [place] Site appropriate for privacy No equipment failures, provided psychotherapy I have communicated my name and active licensure. The patient's identity and physical location were verified at the time of this visit. Either the patient or their legal sales representative advertising has been informed of the risks and benefits of -- and alternatives to -- treatment through a remote evaluation and consents to proceed with the evaluation remotely. The patient e-signed the Informed Consent for Psychological Evaluation AND Care Form, and the behavioral health care insurance benefits, fees for service, emergency procedures, and the limits of confidentiality that may pertain with any given case were discussed with the patient. The patient was given a copy of the consent form on [facility]. The patient consented to a virtual visit and their location was confirmed. PRESENT: Child AGE: [age] year old RACE: White MARITAL STATUS: Living with significant other CHILDREN: Yes, son age one month Westley. 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 PAST MEDICAL HISTORY Diagnosis Date Anemia Depression/anxiety Ganglion cyst of wrist, left Irregular menses Low-lying placenta 01/26/2024 04/21/24- Resolved. Leena Gaytan APRN.ELIAZAR Repeat growth US at 32 weeks. Anitra Caldwell APRN.ELIAZAR PAST SURGICAL HISTORY Procedure Laterality Date DENTAL SURGERY HX 2015 ORTHOPEDICS SURGERY HX knee torn meniscus WRIST Left cyst on left wrist Current Outpatient Medications Medication Sig Vczhmemr-Or-Xsu-Fe-FA tab Take 1 tablet by mouth once daily. With folic acid and DHA as covered by insurance. No current facility-administered medications for this visit. ALLERGIES Allergen Reactions Eucalyptus Rash Chemical burn Lactase Other: See Comments REFERRAL SOURCE: Reny Gaytan APRN CHIEF COMPLAINT: I have been crazy overwhlmed, stressed out and worried over eveything. HPI: had been told in he past that she has high anxiety, prior to . Has exacerbated since delivering son one month ago. Says she first began feeling anxious while a sophomore in high school. She would start out with hives and persistent scratching. Depressive symptoms began about a year later. Could not identify a particular trigger. She says she is stressed out over formula and infant not eating initially, which has decreased, and now she doesn't like to leave the house, or if she sees other people they might want to hold the baby, which she doesn't want. The biggest fear is that her baby will become ill. Mood has been up and down, bipolar; will be ok and then immediately get tearful. Has been irritable and snappy with BF, then breaks down in tears. Pregancy went well, had a low placenta, and she didn't like being , which was not planned. She had plans to adopt. She is happy now that her son is here. Delivery went well, though she was terrifed, only labored for 34 minutes. Sleep: is interrupted by frequent wakings due to feedings, getting 3-4 hours, naps. Has difficulty falling asleep because she might hear infant start to cry Interest: diminished, has been avoiding friends bc she doesn't want others to hold the baby, some days has low motivation. Guilt: if she sleeps and doesn't do much around the house, or that BF has to help Energy: fluctuates with sleep, gets sad will cry for hours at night Concentration: jerrica, prior to , wonders about ADHD, was told by teachers she probably does Appetite: some days she does not eat anything, others she binges to make up, in high school she had an eating disorder. Denies purging or over exercising. Psychomotor activity: psychomotor activity was WNL. Suicide: since delivery she has had migraines and she has been having a thoughts of hitting her head on a table to make it stop, once looked at a bottle of Tylenol to make sure she had enough to overdose, if she decided. She thought of her baby being alone, though a few days later she thought of it again, but didn't want her BF to have to find her. (more content not included)... Normal [facility] [place] 06-24-2024 MARKY Telephone (OBBENOITWAlexa) BEATRIS FLETCHER ([id number]) 3 F Date Time Provider Department 06/24/24 LEENA GAYTAN During your visit today, we recorded the following information about you: Andrea Carlton, RN 06/24/2024 11:25 AM Signed Leena Gaytan APRN.CNM (Water Resources Technical Officer) Tailor Helper Patient contacted by social work for women's behavioral health referral. Received this message: I just did a psych eval on Beatris and I told her to contact you [facility] so you could possibly start her on an SSRI. About two weeks ago she had a plan to overdose on Tylenol, had thought out a plan to have someone care for her baby, and she has intense migraines that cause her to hit her head on the table. She has a prior history of OD. Today she tells me she is not having such thoughts, which usually depend on her migraine. I gave her a safety plan to follow (go to ED with migraines or SI) If she does not reach out to you can you please contact her? Can we please reach out to patient and get a virtual visit with me scheduled. Tomorrow is fine! Andrea Carlton RN 06/24/2024 11:25 AM Signed Left message for patient to call office. ADRIEN De Guzman Jennifer, RN 06/24/2024 11:39 AM Signed Spoke with patient. Scheduled for a virtual visit tomorrow. Amelia Martinez RN Allergies As of Date: 06/24/2024 Noted Allergy Reaction EUCALYPTUS 05/05/2024 2 - Rash Comments: Chemical burn LACTASE 06/26/2020 14 - Other: See Comments Date Reviewed: 06/17/2024 Reviewed by: Vadim Narvaez MA - Fully Assessed Reason for Visit: Appointment [186] Prescriptions as of 06/24/2024 - Cqpzhmuf-Tg-Apz-Fe-FA tab Take 1 tablet by mouth once daily. With folic acid and DHA as covered by insurance. 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 Patient did not answer, left message. Allergies As of Date: 06/17/2024 Noted Allergy Reaction EUCALYPTUS 05/05/2024 2 - Rash Comments: Chemical burn LACTASE 06/26/2020 14 - Other: See Comments Date Reviewed: 06/17/2024 Reviewed by: Vadim Narvaez MA - Fully Assessed Reason for Visit: Hunter Guide - Other [3602] Cmt: Integrated Mental Health Plan of Care Prescriptions as of 06/17/2024 - Ixwzkimy-Mo-Hlu-Fe-FA tab Take 1 tablet by mouth once daily. With folic acid and DHA as covered by insurance. Problem List As Of Date 06/17/2024 Noted Resolved Nocturnal enuresis [N39.44] 10/16/2010 02/22/2020 [...] s*11/14/2023 Nausea and vomiting during [O21.9] 11/17/2023 03/19/2024 Normal first with uncertain date of L*11/17/2023 Rubella non-immune status, antepartum [O09.899,*12/12/2023 Low-lying placenta [O44.40] 01/26/2024 04/21/2024 Heartburn during [O26.899, R12] 02/25/2024 Elevated glucose tolerance test [R73.09] 03/18/2024 Encounter Status:Closed by SAROJ EARLY on 06/17/24 Normal [facility] Absolute neutrophil countOrd ered By: Laxmi Simons on 05-25-2024 Neutrophils (Bld) [#/Vol] 6.4 10*3/uL 2.0-7.7 [facility] Basophil percentageOrdered B y: Laxmi Simons on 05-25-2024 Basophils/100 WBC (Bld) 0.2 % 0-1 [facility] CBC W/Diff, Automatedon Absolute Lymph 2.12 X10 3/uL Normal 0.83-4.51 [facility] Comment on above: Performed By: #### L 500.4050, L100.0100 #### [facility] [address] [place], [address] Absolute Neut 6.4 X10 3/uL Normal 2.0-7.7 [facility] Comment on above: Performed By: #### L 500.4050, L100.0100 #### [facility] [address] [place], [address] Basophils/100 WBC (Bld) 0.2 % Normal 0-1 [facility] Comment on above: Performed By: #### L 500.4050, L100.0100 #### [facility] [address] [place], [address] Eosinophils/100 WBC (Bld) 0.4 % Normal 0-5 [facility] Comment on above: Performed By: #### L 500.4050, L100.0100 #### [facility] [address] [place], [address] Erythrocyte distribution width (RBC) [Ratio] 12.8 % Normal 11.6-14.6 [facility] Comment on above: Performed By: #### L 500.4050, L100.0100 #### [facility] [address] [place], [address] Hematocrit (Bld) [Volume fraction] 36.6 % Low 37-47 [facility] Comment on above: Performed By: #### L 500.4050, L100.0100 #### [facility] [address] [place], [address] Hemoglobin (Bld) [Mass/Vol] 12.7 g/dL Normal 12.0-15.0 [facility] Comment on above: Performed By: #### L 500.4050, L100.0100 #### [facility] [address] [place], [address] IG% 0.600 Normal 0.0-0.9 [facility] Comment on above: Result Comment: IG% - Immature Granulocytes (promyelocytes, myelocytes and metamyelocytes) > 1% indicates that a LEFT SHIFT is Present. Performed By: #### L 500.4050, L100.0100 #### [facility] [address] [place], [address] Lymphocytes/100 WBC (Bld) 23.4 % Normal 19-41 [facility] Comment on above: Performed By: #### L 500.4050, L100.0100 #### [facility] [address] [place], [address] MCH (RBC) [Entitic mass] 30.0 pg Normal 27.0-32.0 [facility] Comment on above: Performed By: #### L 500.4050, L100.0100 #### [facility] [address] [place], [address] MCHC (RBC) [Mass/Vol] 34.7 g/dL Normal 32-36 [facility] Comment on above: Performed By: #### L 500.4050, L100.0100 #### [facility] [address] [place], [address] MCV (RBC) [Entitic vol] 86.3 fL Normal 81-99 [facility] Comment on above: Performed By: #### L 500.4050, L100.0100 #### [facility] [address] [place], [address] Monocytes/100 WBC (Bld) 5.2 % Normal 0-10 [facility] Comment on above: Performed By: #### L 500.4050, L100.0100 #### [facility] [address] [place], [address] Neutrophils/100 WBC (Bld) 70.2 % High 47-70 [facility] Comment on above: Performed By: #### L 500.4050, L100.0100 #### [facility] [address] [place], [address] Nucleated RBC (Bld) [#/Vol] 0 10*3/uL Normal 0-5 [facility] Comment on above: Performed By: #### L 500.4050, L100.0100 #### [facility] [address] [place], [address] Platelet mean volume (Bld) [Entitic vol] 12.0 fL Normal 6.2-12.0 [facility] Comment on above: Performed By: #### L 500.4050, L100.0100 #### [facility] [address] [place], [address] Platelets (Bld) [#/Vol] 177 10*3/uL Normal 150-450 [facility] Comment on above: Performed By: #### L 500.4050, L100.0100 #### [facility] [address] [place], [address] RBC (Bld) [#/Vol] 4.24 10*6/uL Normal 4.2-5.4 [facility] Comment on above: Performed By: #### L 500.4050, L100.0100 #### [facility] [address] [place], [address] RDW SD 40.0 fl Normal 35.1-43.9 [facility] Comment on above: Performed By: #### L 500.4050, L100.0100 #### [facility] [address] [place], [address] WBC (Bld) [#/Vol] 9.1 10*3/uL Normal 4.4-11.0 [facility] Comment on above: Performed By: #### L 500.4050, L100.0100 #### [facility] [place], [address] [place] 05-25-2024 MARKY Telephone (OBGYWM) JUSTINEBEATRIS Tavon ([id number]) 3 F Date Time Provider Department 05/25/24 LAXMI COLEMAN OBROCHELLE During your visit today, we recorded the following information about you: Nora Haile LPN 05/25/2024 9:49 AM Signed 37w4d . Ob patient called c/o irregular contractions yesterday and this morning reports cramping and contractions coming approximately every 3 minutes and are lasting 45 seconds to 1 min and painful when they occur. Patient has not timed contractions for 1 hour yet. Patient denies lof, no VB, and baby is active. Please advise if patient needs to come to office to be seen or go to [facility] in contractions remain regular. Nora Haile LPN 05/25/2024 3:10 PM Signed Patient went to [facility] for evaluation Allergies As of Date: 05/25/2024 Noted Allergy Reaction EUCALYPTUS 05/05/2024 2 - Rash Comments: Chemical burn LACTASE 06/26/2020 14 - Other: See Comments Date Reviewed: 05/18/2024 Reviewed by: Buzz Muhammad MA - Fully Assessed Reason for Visit: Care [86] Prescriptions as of 05/25/2024 - pantoprazole DR (PROTONIX) 20 mg tablet Take 1 tablet by mouth once daily. - aspirin, enteric coated (ECOTRIN LOW STRENGTH) 81 mg EC tablet Take 1 tablet by mouth once daily. - pyridoxine, vitamin B6, (VITAMIN B-6) 50 mg tablet Take 50 mg by mouth once daily. - Btrcvfbh-Br-Oae-Fe-FA tab Take 1 tablet by mouth once daily. With folic acid and DHA as covered by insurance. Problem List As Of Date 05/25/2024 Noted Resolved Nocturnal enuresis [N39.44] 10/16/2010 02/22/2020 [...] s*11/14/2023 Nausea and vomiting during [O21.9] 11/17/2023 03/19/2024 Normal first with uncertain date of L*11/17/2023 Rubella non-immune status, antepartum [O09.899,*12/12/2023 Low-lying placenta [O44.40] 01/26/2024 04/21/2024 Heartburn during [O26.899, R12] 02/25/2024 Elevated glucose tolerance test [R73.09] 03/18/2024 Encounter Status:Closed by NORA HAILE on 05/25/24 Normal [facility] Eosinophil percentageOrdered By: Laxmi Simons on 05-25-2024 Eosinophils/100 WBC (Bld) 0.4 % 0-5 [facility] Erythrocyte distribution wid th ratioOrdered By: Laxmi Simons on 05-25-2024 Erythrocyte distribution width (RBC) [Ratio] 12.8 % 11.6-14.6 [facility] Erythrocyte distribution wid th standard deviationOrdered By: Laxmi Schuler on 05-25-2024 Erythrocyte distribution width (RBC) [Entitic vol] 40.0 fL 35.1-43.9 [facility] H AND P Exam - OB/GYNon H&P Exam - COOK HELPER DESSERT [facility] Medical Records Department [address] [place] [address] H P Exam - COOK HELPER DESSERT 05/25/24 1612 MR#: [id number] Acct: [id number] Name: BEATRIS FLETCHER Rep #: [id number] : 2005 18 From: Laxmi Simons MD PCP: Care Physician,No Primary Status:ADM IN Location: [place] [address] HPI - General General Date of Admission: 05/25/24 HPI Narrative BEATRIS FLETCHER, is a 18 F @ 37.4 weeks who presents c/o contractions Maternal Data Information Final RICK: 06/11/24 Final RICK Source: US <20 weeks Gestational age: [address] [facility] Medical History (Updated 05/25/24 @ 16:[address] Laxmi Simons MD) Anxiety Encounter for screening for COVID-19 Home Medications ???Medication ???Instructions ???Recorded ???Last Taken ???Type aspirin 81 mg capsule 81 mg PO DAILY 03/21/24 05/23/24 21:00 History 81 mg ondansetron 4 mg disintegrating 4 mg PO TID PRN nausea and 03/21/24 Unknown Rx tablet vomiting #21 tabs vit no.95-ferrous 1 tab PO DAILY 03/21/24 05/24/24 21:00 History fumarate 28 mg-folic acid 800 mcg 1 TAB tablet () pantoprazole 40 mg granules 40 mg PO DAILY 05/25/24 05/24/24 09:00 History delayed-release for susp in packet 40 mg (Protonix) Allergy/AdvReac Type Severity Reaction Status Date / Time lactase (From Dairy Aid) Allergy Mild Abdominal Verified 05/25/24 10:58 cramping Family History Grandfather Leukemia DVT (deep venous thrombosis) Grandmother Breast cancer Grandmother Diabetes Heart disease Lung cancer Surgical History (Updated 05/25/24 @ 12:09 by Anne Martinez) History of surgery History of removal of cyst H/O tooth extraction Social History Smoking Status: Never smoker alcohol intake: never what type of physical activity do you participate in: additional details: gym, sports seatbelt use: always History Elective abortions Hx Para 0 Spontaneous abortions Hx # Term Pregnancies Ectopic pregnancies Hx # Pregnancies Multiple births # of living children NST FHR Rate Baby A Baseline: 120 Variability:: Moderate Accelerations:: 15 x 15 Decelerations:: None NST Reactive:: Yes Uterine Activity:: q3-4 Vital Signs Vital Signs Vital Signs: 05/25/24 11:04 05/25/24 11:04 05/25/24 11:04 Temperature Temperature Source Temporal Pulse Rate 83 Respiratory Rate Blood Pressure 126/89 H BP Systolic 126 BP Diastolic 89 Pulse Ox 05/25/24 11:04 05/25/24 11:04 05/25/24 12:57 Temperature 98.7 F Temperature Source Pulse Rate Respiratory Rate 16 Blood Pressure 124/82 H BP Systolic 124 BP Diastolic 82 Pulse Ox 05/25/24 12:57 05/25/24 12:57 05/25/24 12:57 Temperature Temperature Source Pulse Rate 100 95 Respiratory Rate Blood Pressure BP Systolic BP Diastolic Pulse Ox 98 05/25/24 12:57 05/25/24 12:57 05/25/24 12:57 Temperature 98.3 F Temperature Source Temporal Pulse Rate Respiratory Rate 16 Blood Pressure BP Systolic BP Diastolic Pulse Ox 05/25/24 13:02 05/25/24 13:02 05/25/24 13:02 Temperature Temperature Source Pulse Rate 96 Respiratory Rate 16 Blood Pressure BP Systolic BP Diastolic Pulse Ox 98 05/25/24 13:03 05/25/24 13:03 05/25/24 13:03 Temperature Temperature Source Pulse Rate 103 H Respiratory Rate 16 Blood Pressure 118/93 H BP Systolic 118 BP Diastolic 93 Pulse Ox 05/25/24 13:07 05/25/24 13:07 05/25/24 13:07 Temperature Temperature Source Pulse Rate 96 102 H Respiratory Rate Blood Pressure 132/73 H BP Systolic 132 BP Diastolic 73 Pulse Ox 05/25/24 13:07 05/25/24 13:07 05/25/24 13:12 Temperature Temperature Source Pulse Rate Respiratory Rate 16 Blood Pressure 134/96 H BP Systolic 134 BP Diastolic 96 Pulse Ox 98 05/25/24 13:12 05/25/24 13:12 05/25/24 13:12 Temperature Temperature Source Pulse Rate 102 H 101 H Respiratory Rate Blood Pressure BP Systolic BP Diastolic Pulse Ox 97 05/25/24 13:12 05/25/24 13:17 05/25/24 13:17 Temperature Temperature Source Pulse Rate 102 H Respiratory Rate 16 Blood Pressure BP Systolic BP Diastolic Pulse Ox 98 05/25/24 13:17 05/25/24 13:22 05/25/24 13:22 Temperature Temperature Source Pulse Rate 96 Respiratory Rate 16 Blood Pressure 134/73 H BP Systolic 134 BP Diastolic 73 Pulse Ox 05/25/24 13:22 05/25/24 13:22 05/25/24 (more content not included)... Normal [facility] Hematocrit Auto (Bld) [Volum e fraction]Ordered By: Laxmi Smions on 05-25-2024 Hematocrit (Bld) [Volume fraction] 36.6 % Low 37-47 [facility] Hemoglobin measurementOrdere d By: Laxmi Simons on 05-25-2024 Hemoglobin (Bld) [Mass/Vol] 12.7 g/dL 12.0-15.0 [facility] Immature granulocytes/100 WB C Auto (Bld)Ordered By: Laxmi Simons on 05-25-2024 Immature granulocytes/100 WBC (Bld) 0.600 % 0.0-0.9 [facility] Comment on above: IG% - Immature Granu locytes (promyelocytes, myelocytes and metamyelocytes) > 1% indicates that a LEFT SHIFT is Present. L509.8000on 05-25-2024 Syphilis Abs Non-Reactive Normal [facility] Comment on above: Performed By: #### L 509.8000 #### [facility] [address] [place], [address] Lymphocytes Auto (Unsp spec) [#/Vol]Ordered By: Laxmi Simons on 05-25-2024 Lymphocytes (Bld) [#/Vol] 2.12 10*3/uL 0.83-4.51 [facility] Lymphocytes/100 WBC Auto (Un sp spec)Ordered By: Laxmi Simons on 05-25-2024 Lymphocytes/100 WBC (Bld) 23.4 % 19-41 [facility] MCV (mean corpuscular volume ) determinationOrdered By: Laxmi Simons on 05-25-2024 MCV (RBC) [Entitic vol] 86.3 fL 81-99 [facility] MR/OB.VAGDELIon 05-25-2024 [facility] Medical Records Department [address] [place] [address] OB Vaginal Delivery 05/25/242053 MR#: [id number] Acct: [id number] Name: BEATRIS FLETCHER Rep #: [id number] : 2005 18 From: Laxmi Simons MD PCP: Care Physician,No Primary Status:ADM IN Location: [place] [address] Vaginal Delivery Maternal Presentation Maternal Presentation: Active Labor Vaginal Delivery Information Procedure Performed: Spontaneous Vaginal Delivery Surgeon/Practitioner: Laxmi Simons Date of Procedure: 05/25/24 Pre-Procedure Diagnosis: 37 weeks gestation, rubella non immune antepartum, h/o depression antepartum Post-Procedure Diagnosis: Same, live male infant Type of anesthesia: Epidural Estimated Blood Loss: 100 Time of Delivery: 20:34 Findings Description of procedure: Patient progressed to fully dilated. Good maternal pushing efforts delivered the 's head followed by the anterior shoulder and the posterior shoulder followed by the rest the 's body without delay. The infant was then placed on the mother's chest delayed cord clamping was performed. Mouth and nose were suctioned. Infant was vigorous at time of delivery. Cord was then clamped and cut. Placenta was delivered intact without complication. First-degree vaginal laceration were noted which extended up the right labia. This was repaired using 3-0 Rapide suture. Excellent stasis was appreciated. Presentation: Vertex Amniotic Membrane Rupture Type: Artificial Amniotic Fluid Description: Clear Placental Delivery Description: Expressed Placenta Disposition: [facility] Cord Vessel Description: 3 Vessels Cord Entanglement: None Infant A Gender: Male (1 minute): 7 (5 minute): 8 Delayed Cord Clamping: Yes Planer Stone mixing and dispensing supervisor: No Post Vaginal Deli Medications given after delivery: IV Pitocin Episiotomy Description: None Laceration: Vaginal Extension/lac (repaired with 3-0 rapide ) and 1st degree Complication Complications: No 05/25/242057 Cosigner Signature (if applicable): CC: Dr Laxmi Simons MD; No Primary Care Physician Signed Normal [facility] Mean corpuscular hemoglobin (MCH) determinationOrdered By: Laxmi Schuler on 05-25-2024 MCH (RBC) [Entitic mass] 30.0 pg 27.0-32.0 [facility] Mean corpuscular hemoglobin concentration (MCHC) determinationOrdered By: Laxmi Simnos on 05-25-2024 MCHC (RBC) [Mass/Vol] 34.7 g/dL 32-36 [facility] Mean platelet volume determi nationOrdered By: Laxmi iSmons on 05-25-2024 Platelet mean volume (Bld) [Entitic vol] 12.0 fL 6.2-12.0 [facility] Monocyte percentageOrdered B y: Laxmi Simons on 05-25-2024 Monocytes/100 WBC (Bld) 5.2 % 0-10 [facility] Neutrophil percentageOrdered By: Laxmi Simons on 05-25-2024 Neutrophils/100 WBC (Bld) 70.2 % High 47-70 [facility] Nucleated red blood cell per centageOrdered By: Laxmi Simons on 05-25-2024 Nucleated RBC/100 WBC (Bld) [Ratio] 0 % 0-5 [facility] Platelet countOrdered By: Rivera on 05-25-2024 Platelets (Bld) [#/Vol] 177 10*3/uL 150-450 [facility] RBC Auto (Bld) [#/Vol]Ordere d By: Laxmi Simons on 05-25-2024 RBC (Bld) [#/Vol] 4.24 10*6/uL 4.2-5.4 [facility] Treponema sp Ab Ql (S)Ordere d By: Laxmi Simons on 05-25-2024 Syphilis Total Antibody Non-Reactive [facility] Type AND Screenon 05-25-2024 Ab SCREEN GEL Negative Normal [facility] Comment on above: Order Comment: Labor Performed By: #### L 500.4050, L100.0100 #### [facility] [address] [place], [address] White blood cell (WBC) count Ordered By: Laxmi Simons on 05-25-2024 WBC (Bld) [#/Vol] 9.1 10*3/uL 4.4-11.0 [facility] ROUTINE, GROUP B ST REP PCRon 05-18-2024 ROUTINE, GROUP B STREP PCR GROUP B STREP PCR: Negative for Group B Streptococcus by PCR. Normal [facility] Comment on above: Performed By: #### G BPCR ####[facility] [id number] [place] [address] [place] URINE OB DIP B/Oon Glucose Ql (U) Negative Neg mg/dL [facility] Protein.monoclonal (U) [Mass/Vol] Negative Neg mg/dL [facility] URINE OB DIP B/OOrdered By: Roro Sanz on 05-11-2024 Glucose Ql (U) Negative Neg mg/dL [facility] Interpretation and review of laboratory results Normal [facility] Protein.monoclonal (U) [Mass/Vol] Negative Neg mg/dL [facility] CNOVon 05-05-2024 CNOV Office Visit (OBGYWM ) BEATRIS FLETCHER ([id number]) 3 F Date Time Provider Department 05/05/24 2:30 PM LEENA GAYTAN OBGYWM During your visit today, we recorded the following information about you: Blood pressure Weight 102/70 78.9 kg Leena Gaytan APRN.CNM 05/05/2024 4:12 PM Signed CP- CENTERING S: Beatris Fletcher is a 18 year old female who presents at 34 weeks gestation for a routine visit/centering group. Denies headache, visual changes, chest pain, shortness of breath, vaginal bleeding, leakage of fluid, or dysuria. Heartburn improved since taking Protonix. O: See flow sheet Gen: No apparent distress Abd: Gravid, non tender ASSESSMENT/PLAN: 1. 34 weeks gestation of - ICD9: V22.2, ICD10: Z3A.34 (primary diagnosis) 2. Encounter for supervision of normal first in third trimester - ICD9: V22.0, ICD10: Z34.03 3. Rubella non-immune status, antepartum - ICD9: 646.83, V15.83, ICD10: O09.899, Z28.39 4. Heartburn during in third trimester - ICD9: 646.83, 787.1, ICD10: O26.893, R12 - Continue Protonix 20 mg XL - Continue vitamin - ASA - PTL precautions reviewed and when to call office - RTO 1 week for YONY with GBS GIL Shah [place], [place] 05/05/2024 1:43 PM Signed SEQUENTIAL SCREENINGS The [facility] offers sequential screenings for women who are [...] It will require an appointment with our animal health technician. This is not an ultrasound performed [...] the above symptoms, contact our office at [phone] and ask to speak with a nurse. After hours, you can call doctors registry at [phone] OR call [facility] at [phone] and ask to have the doctor quality control industrial engineer paged. If you consider this an emergency, dial 9-5-0 or go to your nearest emergency department. NEED HELP? Are you dealing with a violent or abusive relationship? Are you a victim of rape or sexual assult? Call [facility] ([place]) 24 hour Crisis Hotline: 815.361.2296 or 584-012-0492. MANUAL Your Guide to a Healthy manual is now on-line. Visit [email or web address] [email or web address] to download your free copy Allergies As of Date: 05/05/2024 Noted Allergy Reaction EUCALYPTUS 05/05/2024 2 - Rash Comments: Chemical burn LACTASE 06/26/2020 14 - Other: See Comments Date Reviewed: 05/05/2024 Reviewed by: Ld Duckworth MA - Fully Assessed Reason for Visit: Care [86] Primary Visit Diagnosis:34 weeks gestation of [Z3A.34] Other Visit Diagnoses:Encounter for supervision of normal first in third trimester [Z34.03] Rubella non-immune status, antepartum [O09.899, Z28.39] Heartburn during in third trimester [O26.893, R12] Order(s):URINE OB DIP B/O [[id number]] Order #: [id number] Prescriptions as of 05/05/2024 - pantoprazole DR (PROTONIX) 20 mg tablet Take 1 tablet by mouth once daily. - aspirin, enteric coated (ECOTRIN LOW STRENGTH) 81 mg EC tablet Take 1 tablet by mouth once daily. - pyridoxine, vitamin B6, (VITAMIN B-6) 50 mg tablet Take 50 mg by mouth once daily. - Bonfkbos-Zt-Jwc-Fe-FA tab Take 1 tablet by mouth once daily. With folic acid and DHA as covered by insurance. Problem List As Of Date 05/05/2024 Noted Resolved Nocturnal enuresis [N39.44] 10/16/2010 02/22/2020 [...] Generalized anxiety disorder [F41.1] 11/14/2023 History of depressio (more content not included)... Normal [facility] [place] 04-22-2024 CNPN Telephone (OGFVWE) BEATRIS FLETCHER ([id number]) 3 F Date Time Provider Department 04/22/24 AMELIA ARMSTRONG OGFVWE During your visit today, we recorded the following information about you: Amelia Armstrong RN 04/22/2024 9:23 AM Signed 3rd risk assessment form submitted 04/22/2024. Amelia Armstrong RN Allergies As of Date: 04/22/2024 Noted Allergy Reaction LACTASE 06/26/2020 14 - Other: See Comments Date Reviewed: 04/21/2024 Reviewed by: Ld Duckworth MA - Fully Assessed Reason for Visit: Hunter Guide - Other [3602] Cmt: PRAF Prescriptions as of 04/22/2024 - pantoprazole DR (PROTONIX) 20 mg tablet Take 1 tablet by mouth once daily. - aspirin, enteric coated (ECOTRIN LOW STRENGTH) 81 mg EC tablet Take 1 tablet by mouth once daily. - pyridoxine, vitamin B6, (VITAMIN B-6) 50 mg tablet Take 50 mg by mouth once daily. - Yxwrmdqc-Wv-Aif-Fe-FA tab Take 1 tablet by mouth once daily. With folic acid and DHA as covered by insurance. Problem List As Of Date 04/22/2024 Noted Resolved Nocturnal enuresis [N39.44] 10/16/2010 02/22/2020 [...] s*11/14/2023 Nausea and vomiting during [O21.9] 11/17/2023 03/19/2024 Normal first with uncertain date of L*11/17/2023 Rubella non-immune status, antepartum [O09.899,*12/12/2023 Low-lying placenta [O44.40] 01/26/2024 04/21/2024 Heartburn during [O26.899, R12] 02/25/2024 Elevated glucose tolerance test [R73.09] 03/18/2024 Encounter Status:Closed by AMELIA ARMSTRONG on 04/22/24 Normal [facility] CNOVon 04-21-2024 CNOV Office Visit (OBGYWM ) BEATRIS FLETCHER ([id number]) 3 F Date Time Provider Department 04/21/24 2:30 PM LEENA GAYTAN During your visit today, we recorded the following information about you: Blood pressure Weight 106/68 75.8 kg Ld Duckworth MA 04/21/2024 2:04 PM Signed SEQUENTIAL SCREENINGS The [facility] offers sequential screenings for women who are [...] It will require an appointment with our animal health technician. This is not an ultrasound performed [...] the above symptoms, contact our office at [phone] and ask to speak with a nurse. After hours, you can call doctors registry at [phone] OR call [facility] at [phone] and ask to have the doctor quality control industrial engineer paged. If you consider this an emergency, dial 9--6 or go to your nearest emergency department. NEED HELP? Are you dealing with a violent or abusive relationship? Are you a victim of rape or sexual assult? Call [facility] ([place]) 24 hour Crisis Hotline: 794.663.9261 or 966-108-8203. MANUAL Your Guide to a Healthy manual is now on-line. Visit [email or web address] lthyPregnancyGuide to download your free copy Leena Gaytan APRN.CNM 04/21/2024 3:10 PM Signed CP- CENTERING S: Beatris Fletcher is a 18 year old female who presents at 32 weeks for Centering group/routine visit. Denies headache, visual changes, chest pain, shortness of breath, vaginal bleeding, leakage of fluid, or dysuria. Continues to have acid reflux with minimal relief from Pepcid. O: See flow sheet Gen: No apparent distress Abd: Gravid, non tender ASSESSMENT/PLAN: 1. 32 weeks gestation of 2. Encounter for supervision of normal first in third trimester 3. Low-lying placenta - ICD9: 641.10, ICD10: O44.40 4. Heartburn in - third trimester 5. Rubella non immune - Ultrasound today- Placenta is FUNDAL- no longer low lying - Rx Protonix 20 mg XL BID - MMR post - PTL precautions reviewed RTO 2 weeks Leena Gyatan APRN.CNM Allergies As of Date: 04/21/2024 Noted Allergy Reaction LACTASE 06/26/2020 14 - Other: See Comments Date Reviewed: 04/21/2024 Reviewed by: Ld Duckworth MA - Fully Assessed Reason for Visit: Care [86] Primary Visit Diagnosis:32 weeks gestation of [Z3A.32] Other Visit Diagnoses:Encounter for supervision of normal first in third trimester [Z34.03] Low-lying placenta [O44.40] Heartburn during in third trimester [O26.893, R12] Order(s):pantoprazole DR (PROTONIX) 20 mg tabletTake 1 tablet by mouth once daily.Disp: 30 tabletRfl: 2 Prescriptions as of 04/22/2024 - pantoprazole DR (PROTONIX) 20 mg tablet Take 1 tablet by mouth once daily. - aspirin, enteric coated (ECOTRIN LOW STRENGTH) 81 mg EC tablet Take 1 tablet by mouth once daily. - pyridoxine, vitamin B6, (VITAMIN B-6) 50 mg tablet Take 50 mg by mouth once daily. - Vhrbqjuz-Hc-Qhi-Fe-FA tab Take 1 tablet by mouth once daily. With folic acid and DHA as covered by insurance. Problem List As Of Date 04/21/2024 Noted Resolved Nocturnal enuresis [N39.44] 10/16/2010 02/22/2020 [...] s*11/14/2023 Nausea and vomiting during [O21.9] 11/17/2023 03/19/2024 Normal first w (more content not included)... Normal [facility] Examination level ultrasound on 04-21-2024 [facility] Radiology Study observation (narrative) [facility] [place] 03-25-2024 MARKY Telephone (OBGYWM) FLETCHERBEATRIS ([id number]) 3 F Date Time Provider Department 03/25/24 PRAMOD ROMERO OBBENOITWAlexa During your visit today, we recorded the following information about you: Pramod Romero APRN.CLAUDIA 03/25/2024 2:59 PM Signed Even if 3 hour is elevated, passed GTT. 2 hour is 60. Patient does not need do have last draw - recommend eating something. Please call lab/notify patient. Pramod Romero APRN.Dyan Lux RN 03/25/2024 3:06 PM Signed Lab notified along with patient. Dyan Somers RN Allergies As of Date: 03/25/2024 Noted Allergy Reaction LACTASE 06/26/2020 14 - Other: See Comments Date Reviewed: 03/18/2024 Reviewed by: Jessy Alicea LPN - Fully Assessed Reason for Visit: Results [95] Prescriptions as of 03/25/2024 - famotidine (PEPCID) 40 mg tablet Take 1 tablet by mouth once daily. - aspirin, enteric coated (ECOTRIN LOW STRENGTH) 81 mg EC tablet Take 1 tablet by mouth once daily. - pyridoxine, vitamin B6, (VITAMIN B-6) 50 mg tablet Take 50 mg by mouth once daily. - Kldpqeqb-Jv-Iwf-Fe-FA tab Take 1 tablet by mouth once daily. With folic acid and DHA as covered by insurance. Problem List As Of Date 03/25/2024 Noted Resolved Nocturnal enuresis [N39.44] 10/16/2010 02/22/2020 [...] s*11/14/2023 Nausea and vomiting during [O21.9] 11/17/2023 03/19/2024 Normal first with uncertain date of L*11/17/2023 Rubella non-immune status, antepartum [O09.899,*12/12/2023 Low-lying placenta [O44.40] 01/26/2024 Heartburn during [O26.899, R12] 02/25/2024 Elevated glucose tolerance test [R73.09] 03/18/2024 Encounter Status:Closed by DYAN SOMERS on 03/25/24 Normal [facility] GLUCOSE GESTATIONAL, 1 HOURo n 03-25-2024 Glucose 1 Hr post Unsp challenge [Mass/Vol] 88 mg/dL Normal 74-179 [facility] Comment on above: Order Comment: Speci men Type: BLOOD SPECIMENOrdering Facility: [facility] Address: [address] [place] [address] Result Comment: [facility] Congress of Obstetricians and Gynecologists ([place]) guidelines state gestational diabetes mellitus is present when 2 or more of the plasma glucose concentrations meet or exceed the following levels: fastin mg/dl, 1 hr: 180 mg/dl, 2 hr: 155 mg/dl, and 3 hr: 140 mg/dl. Performed By: #### G TGST1 ####[facility] [id number] [place] [address] [place] GLUCOSE GESTATIONAL, 2 HOURo n 03-25-2024 Glucose 2 Hr post Unsp challenge [Mass/Vol] 60 mg/dL Low 74-154 [facility] Comment on above: Order Comment: Kevin matthews Type: BLOOD SPECIMENOrdering Facility: [facility] Address: [address] [place] [address] Result Comment: [facility] Congress of Obstetricians and Gynecologists ([place]/[facility]) guidelines state gestational diabetes mellitus is present when 2 or more of the plasma glucose concentrations meet or exceed the following levels: fastin mg/dl, 1 hr: 180 mg/dl, 2 hr: 155 mg/dl, and 3 hr: 140 mg/dl. Performed By: #### G TGST2 ####[facility] [id number] [place] [address] [place] GLUCOSE GESTATIONAL, FASTING on 03-25-2024 Glucose post fast [Mass/Vol] 82 mg/dL Normal 74-94 [facility] Comment on above: Order Comment: Kevin matthews Type: BLOOD SPECIMENOrdering Facility: [facility] Address: [address] [place] [address] Result Comment: [facility] Congress of Obstetricians and Gynecologists ([place]/[facility]) guidelines state gestational diabetes mellitus is present when 2 or more of the plasma glucose concentrations meet or exceed the following levels: fastin mg/dl, 1 hr: 180 mg/dl, 2 hr: 155 mg/dl, and 3 hr: 140 mg/dl. Performed By: #### G TGSTF ####[facility] [id number] [place] [address] [place] Basic Metabolic Profile (BMP )on 03-21-2024 BUN/CRE 12.8 RATIO Normal 10-20 [facility] Comment on above: Performed By: #### L 500.2500, L500.3400, L501.5200, L100.0100 #### [facility] [address] [place], [address] CA,Total 8.7 mg/dL Normal 8.5-10.1 [facility] Comment on above: Performed By: #### L 500.2500, L500.3400, L501.5200, L100.0100 #### [facility] [address] [place], [address] Chloride [Moles/Vol] 105 mmol/L Normal 98-107 [facility] Comment on above: Performed By: #### L 500.2500, L500.3400, L501.5200, L100.0100 #### [facility] [address] [place], [address] CO2 [Moles/Vol] 25.0 mmol/L Normal 21.0-32.0 [facility] Comment on above: Performed By: #### L 500.2500, L500.3400, L501.5200, L100.0100 #### [facility] [address] [place], [address] Creatinine [Mass/Vol] 0.47 mg/dL Low 0.55-1.02 [facility] Comment on above: Result Comment: The validity of the calculated GFR GFRAA in patients over 70 years has not been determined. Clinical correlation is essential. Performed By: #### L 500.2500, L500.3400, L501.5200, L100.0100 #### [facility] [address] [place], [address] ECRCL 188.38 ml/min Normal [facility] Comment on above: Performed By: #### L 500.2500, L500.3400, L501.5200, L100.0100 #### [facility] [address] [place], [address] EST GFR - AA 218 mL/min Normal >60 [facility] Comment on above: Result Comment: Afri can Chinese GFR Calc Performed By: #### L 500.2500, L500.3400, L501.5200, L100.0100 #### [facility] [address] [place], [address] GAP 7 Normal 5-15 [facility] Comment on above: Performed By: #### L 500.2500, L500.3400, L501.5200, L100.0100 #### [facility] [address] [place], [address] GFR/1.73 sq M.predicted among non-blacks MDRD (S/P/Bld) [Vol rate/Area] 180 mL/min/{1.73_m2} Normal >60 [facility] Comment on above: Result Comment: Non- GFR Calc Performed By: #### L 500.2500, L500.3400, L501.5200, L100.0100 #### [facility] [address] [place], [address] Glucose [Mass/Vol] 80 mg/dL Normal 74-106 [facility] Comment on above: Performed By: #### L 500.2500, L500.3400, L501.5200, L100.0100 #### [facility] [address] [place], [address] Potassium [Moles/Vol] 3.5 mmol/L Normal 3.5-5.1 [facility] Comment on above: Performed By: #### L 500.2500, L500.3400, L501.5200, L100.0100 #### [facility] [address] [place], [address] Sodium [Moles/Vol] 137 mmol/L Normal 136-145 [facility] Comment on above: Performed By: #### L 500.2500, L500.3400, L501.5200, L100.0100 #### [facility] [address] [place], [address] Urea nitrogen [Mass/Vol] 6 mg/dL Low 7-18 [facility] Comment on above: Performed By: #### L 500.2500, L500.3400, L501.5200, L100.0100 #### [facility] [address] [place], [address] CBC W/Diff, Automatedon 11-0 3-2023 Absolute Lymph 1.21 X10 3/uL Normal 0.83-4.51 [facility] Comment on above: Performed By: #### L 500.2500, L500.3400, L501.5200, L100.0100 #### [facility] [address] [place], [address] Absolute Neut 4.9 X10 3/uL Normal 2.0-7.7 [facility] Comment on above: Performed By: #### L 500.2500, L500.3400, L501.5200, L100.0100 #### [facility] [address] [place], [address] Basophils/100 WBC (Bld) 0.1 % Normal 0-1 [facility] Comment on above: Performed By: #### L 500.2500, L500.3400, L501.5200, L100.0100 #### [facility] [address] [place], [address] Eosinophils/100 WBC (Bld) 0.6 % Normal 0-5 [facility] Comment on above: Performed By: #### L 500.2500, L500.3400, L501.5200, L100.0100 #### [facility] [address] [place], [address] Erythrocyte distribution width (RBC) [Ratio] 12.6 % Normal 11.6-14.6 [facility] Comment on above: Performed By: #### L 500.2500, L500.3400, L501.5200, L100.0100 #### [facility] [address] [place], [address] Hematocrit (Bld) [Volume fraction] 31.5 % Low 37-47 [facility] Comment on above: Performed By: #### L 500.2500, L500.3400, L501.5200, L100.0100 #### [facility] [address] [place], [address] Hemoglobin (Bld) [Mass/Vol] 11.3 g/dL Low 12.0-15.0 [facility] Comment on above: Performed By: #### L 500.2500, L500.3400, L501.5200, L100.0100 #### [facility] [address] [place], [address] IG% 0.400 Normal 0.0-0.9 [facility] Comment on above: Result Comment: IG% - Immature Granulocytes (promyelocytes, myelocytes and metamyelocytes) > 1% indicates that a LEFT SHIFT is Present. Performed By: #### L 500.2500, L500.3400, L501.5200, L100.0100 #### [facility] [address] [place], [address] Lymphocytes/100 WBC (Bld) 18.0 % Low 19-41 [facility] Comment on above: Performed By: #### L 500.2500, L500.3400, L501.5200, L100.0100 #### [facility] [address] [place], [address] MCH (RBC) [Entitic mass] 31.4 pg Normal 27.0-32.0 [facility] Comment on above: Performed By: #### L 500.2500, L500.3400, L501.5200, L100.0100 #### [facility] [address] [place], [address] MCHC (RBC) [Mass/Vol] 35.9 g/dL Normal 32-36 [facility] Comment on above: Performed By: #### L 500.2500, L500.3400, L501.5200, L100.0100 #### [facility] [address] [place], [address] MCV (RBC) [Entitic vol] 87.5 fL Normal 81-99 [facility] Comment on above: Performed By: #### L 500.2500, L500.3400, L501.5200, L100.0100 #### [facility] [address] [place], [address] Monocytes/100 WBC (Bld) 7.7 % Normal 0-10 [facility] Comment on above: Performed By: #### L 500.2500, L500.3400, L501.5200, L100.0100 #### [facility] [address] [place], [address] Neutrophils/100 WBC (Bld) 73.2 % High 47-70 [facility] Comment on above: Performed By: #### L 500.2500, L500.3400, L501.5200, L100.0100 #### [facility] [address] [place], [address] Nucleated RBC (Bld) [#/Vol] 0 10*3/uL Normal 0-5 [facility] Comment on above: Performed By: #### L 500.2500, L500.3400, L501.5200, L100.0100 #### [facility] [address] [place], [address] Platelet mean volume (Bld) [Entitic vol] 11.5 fL Normal 6.2-12.0 [facility] Comment on above: Performed By: #### L 500.2500, L500.3400, L501.5200, L100.0100 #### [facility] [address] [place], [address] Platelets (Bld) [#/Vol] 146 10*3/uL Low 150-450 [facility] Comment on above: Performed By: #### L 500.2500, L500.3400, L501.5200, L100.0100 #### [facility] [address] [place], [address] RBC (Bld) [#/Vol] 3.60 10*6/uL Low 4.2-5.4 [facility] Comment on above: Performed By: #### L 500.2500, L500.3400, L501.5200, L100.0100 #### [facility] [address] [place], [address] RDW SD 39.6 fl Normal 35.1-43.9 [facility] Comment on above: Performed By: #### L 500.2500, L500.3400, L501.5200, L100.0100 #### [facility] [address] [place], [address] WBC (Bld) [#/Vol] 6.7 10*3/uL Normal 4.4-11.0 [facility] Comment on above: Performed By: #### L 500.2500, L500.3400, L501.5200, L100.0100 #### [facility] [address] [place], [address] Emergency Department Summary on 03-21-2024 Emergency Department Summary [facility] Medical Records Department [address] [place] [address] Emergency Department Summary 03/21/24 MR#: [id number] Acct: [id number] Name: BEATRIS FLETCHER Rep #: [id number] : 2005 18 From: Vlad Jay DO PCP: Care Physician,No Primary Status:DEP ER Location: ED HPI History of Present Illness Chief Complaint: General Illness Informant: patient and spouse/S.O. Narrative Narrative: Patient is a 18-year-old female who is a G1, P0 approximately 28 weeks . She states that on Friday she awoke with a sore throat and this progressed into and with concern for an infection she went to an urgent care where she was tested for strep and COVID and this was negative. She states her sore throat has since resolved but now she has congestion drainage and cough. She states she is coughing to the point where she is having bouts of vomiting. She reports she contacted OB and was advised to come to the ER for evaluation. She states there is no vaginal discharge or bleeding and she does not have abdominal pain associated with this however with concern for an infective process she presents for evaluation. [facility] Medical History Encounter for screening for COVID-19 Home Medications ???Medication ???Instructions ???Recorded ???Last Taken ???Type aspirin 81 mg capsule 81 mg PO DAILY 03/21/24 Unknown History azelastine 137 mcg (0.1 %) nasal 2 spray intranasal BID #30 mL 03/21/24 Unknown Rx spray azithromycin 250 mg tablet See Rx Instructions PO .COMPLEX #6 03/21/24 Unknown Rx (Zithromax Z-Xu) tabs benzonatate 200 mg capsule 200 mg PO TID PRN cough 5 days #15 03/21/24 Unknown Rx caps ondansetron 4 mg disintegrating 4 mg PO TID PRN nausea and 03/21/24 Unknown Rx tablet vomiting #21 tabs prednisone 20 mg tablet 20 mg PO DAILY 5 days #5 tabs 03/21/24 Unknown Rx vit no.95-ferrous 1 tab PO DAILY 03/21/24 Unknown History fumarate 28 mg-folic acid 800 mcg tablet () Allergy/AdvReac Type Severity Reaction Status Date / Time lactase (From Dairy Aid) Allergy Mild Abdominal Verified 03/21/24 01:51 EST cramping Family History Grandfather Leukemia DVT (deep venous thrombosis) Grandmother Breast cancer Grandmother Diabetes Heart disease Lung cancer Surgical History History of removal of cyst H/O tooth extraction Social History Smoking Status: Never smoker alcohol intake: never what type of physical activity do you participate in: additional details: gym, sports seatbelt use: always ROS ROS ED Constitutional Constitutional ED: Denies chills or fever(s) Eyes Eyes: Denies change in vision ENT ENT ED: Reports rhinorrhea and sore throat; Denies ear pain Cardiovascular Cardiovascular: Denies chest pain Respiratory/Chest Respiratory/Chest: Reports cough; Denies dyspnea Gastrointestinal Gastrointestinal: Reports nausea; Denies abdominal pain, diarrhea or vomiting Genitourinary Genitourinary ED: Denies dysuria Musculoskeletal Musculoskeletal: Reports myalgias Integumentary Denies rash Neurologic Neurologic: Denies headache(s) Hematologic/Lymphatic Hematologic/Lymphatic: Denies easy bleeding or easy bruising EXAM Physical Exam Const Vital Signs: 03/21/24 01:52 EST 03/21/24 01:57 EST 03/21/24 01:57 EST Temperature 98.7 F 98.7 F Temperature Source Oral Oral Pulse Rate 102 H 114 H Respiratory Rate 18 16 Respiratory Effort Short of Breath Labored Respiratory Pattern Normal Blood Pressure 110/81 H 110/81 H Blood Pressure Mean 90 90 Pulse Ox 99 99 Oxygen Delivery Method Room Air Room Air 03/21/24 02:57 03/21/24 03:00 03/21/24 03:23 Temperature 98.6 F 98.6 F 98.6 F Temperature Source Oral Oral Pulse Rate 87 89 98 Respiratory Rate 16 16 16 Respiratory Effort Respiratory Pattern Blood Pressure 113/74 113/74 113/74 Blood Pressure Mean 87 87 87 Pulse Ox 98 98 98 Oxygen Delivery Method Room Air Room Air Positive well nourished and well developed General Appearance ED: well developed; Negative for pallor HEENT Reports moist mucous membranes HEENT Narrative: There is erythema in the posterior pharynx but no tonsillar hypertrophy no exudates no trismus no change in voice or difficulty with secretions Bilateral TMs are slightly retracted but show no secondary changes to suggest infection Nasal mucosa is hyperemic and boggy with enlarged inferior nasal turbinates Eyes PERRL and EOMs intact bilaterally General Eye ED: Negative for scleral icterus Neck supple (more content not included)... Normal [facility] Liver Profileon 03-21-2024 Albumin [Mass/Vol] 3.0 g/dL Low 3.2-5.0 [facility] Comment on above: Performed By: #### L 500.2500, L500.3400, L501.5200, L100.0100 #### [facility] [address] [place], [address] ALK P 68 U/L Normal 45-117 [facility] Comment on above: Performed By: #### L 500.2500, L500.3400, L501.5200, L100.0100 #### [facility] [address] [place], [address] ALT [Catalytic activity/Vol] 21 U/L Normal 13-56 [facility] Comment on above: Performed By: #### L 500.2500, L500.3400, L501.5200, L100.0100 #### [facility] [address] [place], [address] AST [Catalytic activity/Vol] 10 U/L Low 15-37 [facility] Comment on above: Performed By: #### L 500.2500, L500.3400, L501.5200, L100.0100 #### [facility] [address] [place], [address] Bilirubin [Mass/Vol] 0.50 mg/dL Normal 0.20-1.00 [facility] Comment on above: Result Comment: For patients on eltrombopag therapy, use of Dimension [place] TBIL is not recommended. Performed By: #### L 500.2500, L500.3400, L501.5200, L100.0100 #### [facility] [address] [place], [address] Bilirubin.direct [Mass/Vol] 0.14 mg/dL Normal 0.00-0.30 [facility] Comment on above: Performed By: #### L 500.2500, L500.3400, L501.5200, L100.0100 #### [facility] [address] [place], [address] Globulin (S) [Mass/Vol] 3.9 g/dL Normal 2.2-4.2 [facility] Comment on above: Performed By: #### L 500.2500, L500.3400, L501.5200, L100.0100 #### [facility] [address] [place], [address] T PROT 6.9 g/dL Normal 6.4-8.2 [facility] Comment on above: Performed By: #### L 500.2500, L500.3400, L501.5200, L100.0100 #### [facility] [address] [place], [address] Magnesiumon 03-21-2024 Magnesium [Mass/Vol] 1.8 mg/dL Normal 1.6-2.6 [facility] Comment on above: Performed By: #### L 500.2500, L500.3400, L501.5200, L100.0100 #### [facility] [address] [place], [address] CNPNon 03-19-2024 [facility] Telephone (KAMRAM) BEATRIS FLETCHER ([id number]) 3 F Date Time Provider Department 03/19/24 ANITRA CALDWELL During your visit today, we recorded the following information about you: Anitra Caldwell APRN.CNM 03/19/2024 1:02 PM Signed Can you please assist patient in getting YONY visit 2 weeks from last visit. She is not scheduled. This will need scheduled out side of centering due to gestational age. Thanks, Anitra Caldwell APRN.Amelia Velásquez RN 03/19/2024 2:47 PM Signed Called patient. OB visit scheduled. Amelia Martinez RN Allergies As of Date: 03/19/2024 Noted Allergy Reaction LACTASE 06/26/2020 14 - Other: See Comments Date Reviewed: 03/18/2024 Reviewed by: Jessy Alicea LPN - Fully Assessed Prescriptions as of 03/19/2024 - famotidine (PEPCID) 40 mg tablet Take 1 tablet by mouth once daily. - aspirin, enteric coated (ECOTRIN LOW STRENGTH) 81 mg EC tablet Take 1 tablet by mouth once daily. - pyridoxine, vitamin B6, (VITAMIN B-6) 50 mg tablet Take 50 mg by mouth once daily. - Uerltcbq-Rf-Sqn-Fe-FA tab Take 1 tablet by mouth once daily. With folic acid and DHA as covered by insurance. Problem List As Of Date 03/19/2024 Noted Resolved Nocturnal enuresis [N39.44] 10/16/2010 02/22/2020 [...] s*11/14/2023 Nausea and vomiting during [O21.9] 11/17/2023 03/19/2024 Normal first with uncertain date of L*11/17/2023 Rubella non-immune status, antepartum [O09.899,*12/12/2023 Low-lying placenta [O44.40] 01/26/2024 Heartburn during [O26.899, R12] 02/25/2024 Elevated glucose tolerance test [R73.09] 03/18/2024 Encounter Status:Closed by AMELIA MARTINEZ on 03/19/24 Normal [facility] CBC W Auto Differential pane l (Bld)on 03-18-2024 Basophils (Bld) [#/Vol] 10*3/uL Normal <0.11 [facility] Comment on above: Order Comment: Speci men Type: BLOOD SPECIMENOrdering Facility: [facility] Address: [address] [place] [address] Performed By: #### 5 7021-8 ####[facility] [id number] [place] [address] [place] Basophils/100 WBC (Bld) 0.2 % Normal [facility] Comment on above: Order Comment: Speci men Type: BLOOD SPECIMENOrdering Facility: [facility] Address: [address] [place] [address] Performed By: #### 5 7021-8 ####[facility] [id number] [place] [address] [place] Differential cell count method Nom (Bld) Auto Normal [facility] Comment on above: Order Comment: Speci men Type: BLOOD SPECIMENOrdering Facility: [facility] Address: [address] [place] [address] Performed By: #### 5 7021-8 ####[facility] [id number] [place] [address] [place] Eosinophils (Bld) [#/Vol] 10*3/uL Normal <0.46 [facility] Comment on above: Order Comment: Speci men Type: BLOOD SPECIMENOrdering Facility: [facility] Address: [address] [place] [address] Performed By: #### 5 7021-8 ####[facility] MOISESRobertNCCHLOE [id number] [place] [address] [place] Eosinophils/100 WBC (Bld) 0.2 % Normal [facility] Comment on above: Order Comment: Speci men Type: BLOOD SPECIMENOrdering Facility: [facility] Address: [address] [place] [address] Performed By: #### 5 7021-8 ####[facility] [id number] [place] [address] [place] Erythrocyte distribution width (RBC) [Ratio] 12.5 % Normal 11.5-15.0 [facility] Comment on above: Order Comment: Speci men Type: BLOOD SPECIMENOrdering Facility: [facility] Address: [address] [place] [address] Performed By: #### 5 7021-8 ####[facility] [id number] [place] [address] [place] Hematocrit (Bld) [Volume fraction] 32.4 % Low 36.0-46.0 [facility] Comment on above: Order Comment: Speci men Type: BLOOD SPECIMENOrdering Facility: [facility] Address: [address] [place] [address] Performed By: #### 5 7021-8 ####[facility] [id number] [place] [address] [place] Hemoglobin (Bld) [Mass/Vol] 11.3 g/dL Low 11.5-15.5 [facility] Comment on above: Order Comment: Speci men Type: BLOOD SPECIMENOrdering Facility: [facility] Address: [address] [place] [address] Performed By: #### 5 7021-8 ####[facility] MILLTOWNCLIA [id number] [place] [address] [place] Immature granulocytes (Bld) [#/Vol] 0.03 10*3/uL Normal <0.10 [facility] Comment on above: Order Comment: Speci men Type: BLOOD SPECIMENOrdering Facility: [facility] Address: [address] [place] [address] Performed By: #### 5 7021-8 ####[facility] [id number] [place] [address] [place] Immature granulocytes/100 WBC (Bld) 0.6 % Normal [facility] Comment on above: Order Comment: Speci men Type: BLOOD SPECIMENOrdering Facility: [facility] Address: [address] [place] [address] Performed By: #### 5 7021-8 ####[facility] [id number] [place] [address] [place] Lymphocytes (Bld) [#/Vol] 1.15 10*3/uL Normal 1.00-4.00 [facility] Comment on above: Order Comment: Speci men Type: BLOOD SPECIMENOrdering Facility: [facility] Address: [address] [place] [address] Performed By: #### 5 7021-8 ####[facility] MILLWNCLIA [id number] [place] [address] [place] Lymphocytes/100 WBC (Bld) 23.0 % Normal [facility] Comment on above: Order Comment: Speci men Type: BLOOD SPECIMENOrdering Facility: [facility] Address: [address] [place] [address] Performed By: #### 5 7021-8 ####[facility] [id number] [address] [place] MCH (RBC) [Entitic mass] 30.7 pg Normal 26.0-34.0 [facility] Comment on above: Order Comment: Speci men Type: BLOOD SPECIMENOrdering Facility: [facility] Address: [address] [place] [address] Performed By: #### 5 7021-8 ####[facility] [id number] [address] [place] MCHC (RBC) [Mass/Vol] 34.9 g/dL Normal 30.5-36.0 [facility] Comment on above: Order Comment: Speci men Type: BLOOD SPECIMENOrdering Facility: [facility] Address: [address] [place] [address] Performed By: #### 5 7021-8 ####[facility]INTNCSHANNON [id number] [address] [place] MCV (RBC) [Entitic vol] 88.0 fL Normal 80.0-100.0 [facility] Comment on above: Order Comment: Speci men Type: BLOOD SPECIMENOrdering Facility: [facility] Address: [address] [place] [address] Performed By: #### 5 7021-8 ####[facility] [id number] [place] [address] [place] Monocytes (Bld) [#/Vol] 0.37 10*3/uL Normal <0.87 [facility] Comment on above: Order Comment: Speci men Type: BLOOD SPECIMENOrdering Facility: [facility] Address: [address] [place] [address] Performed By: #### 5 7021-8 ####[facility] [id number] [place] [address] [place] Monocytes/100 WBC (Bld) 7.4 % Normal [facility] Comment on above: Order Comment: Speci men Type: BLOOD SPECIMENOrdering Facility: [facility] Address: [address] [place] [address] Performed By: #### 5 7021-8 ####[facility] MOISESLAWTONSDIMITRIOSLIA [id number] [place] [address] [place] Neutrophils (Bld) [#/Vol] 3.43 10*3/uL Normal 1.45-7.50 [facility] Comment on above: Order Comment: Speci men Type: BLOOD SPECIMENOrdering Facility: [facility] Address: [address] [place] [address] Performed By: #### 5 7021-8 ####[facility]ENTERL[facility] [id number] [place] [address] [place] Neutrophils/100 WBC (Bld) 68.6 % Normal [facility] Comment on above: Order Comment: Speci men Type: BLOOD SPECIMENOrdering Facility: [facility] Address: [address] [place] [address] Performed By: #### 5 7021-8 ####[facility] [id number] [place] [address] [place] Nucleated RBC (Bld) [#/Vol] 10*3/uL Normal <0.01 [facility] Comment on above: Order Comment: Speci men Type: BLOOD SPECIMENOrdering Facility: [facility] Address: [address] [place] [address] Performed By: #### 5 7021-8 ####[facility]ENTERL[facility] [id number] [place] [address] [place] Nucleated RBC/100 WBC (Bld) [Ratio] 0.0 /100 WBC Normal [facility] Comment on above: Order Comment: Speci men Type: BLOOD SPECIMENOrdering Facility: [facility] Address: [address] [place] [address] Performed By: #### 5 7021-8 ####[facility] MILLTOWNCLIA [id number] [place] [address] [place] Platelet mean volume (Bld) [Entitic vol] 10.3 fL Normal 9.0-12.7 [facility] Comment on above: Order Comment: Speci men Type: BLOOD SPECIMENOrdering Facility: [facility] Address: [address] [place], [place] [address] Performed By: #### 5 7021-8 ####[facility]CL[facility] [id number] [place] [address] [place] Platelets (Bld) [#/Vol] 156 10*3/uL Normal 150-400 [facility] Comment on above: Order Comment: Speci men Type: BLOOD SPECIMENOrdering Facility: [facility] Address: [address] [place], [place] [address] Performed By: #### 5 7021-8 ####[facility] [id number] [place] [address] [place] RBC (Bld) [#/Vol] 3.68 10*6/uL Low 3.90-5.20 [facility] Comment on above: Order Comment: Speci men Type: BLOOD SPECIMENOrdering Facility: [facility] Address: [address] [place], [place] [address] Performed By: #### 5 7021-8 ####[facility]YWNCLIA [id number] [place] [address] [place] WBC (Bld) [#/Vol] 5.00 10*3/uL Normal 3.70-11.00 [facility] Comment on above: Order Comment: Speci men Type: BLOOD SPECIMENOrdering Facility: [facility] Address: [address] [place], [place] [address] Performed By: #### 5 7021-8 ####[facility]CL[facility] [id number] [place] [id number] [place] [address] [place] CNOVon 03-18-2024 CNOV Office Visit (UCWSTR ) BEATRIS FLETCHER ([id number]) 3 F Date Time Provider Department 03/18/24 12:45 PM NEETA REY [facility] During your visit today, we recorded the following information about you: Temperature Pulse Respiration Blood pressure 96.9 degrees 97/minute 20/minute 107/69 Weight 73.3 kg Neeta Rey PA-C 03/18/2024 1:36 PM Signed This note was created using [employer]. Subjective Beatris Fletcher is a 18 year old female. HPI Patient presents with the chief complaint of sore throat and nasal congestion. Sore throat started yesterday and this morning nasal congestion started as well. No cough. No chest pain or shortness of breath. No ear pain. She is currently almost 28 weeks . Denies abdominal pain, bleeding, fluid leakage, vomiting or diarrhea. No fever. Review of Systems Constitutional: Negative for fever. HENT: Positive for congestion and sore throat. Negative for ear pain, sinus pressure and sinus pain. Respiratory: Negative for cough and wheezing. Cardiovascular: Negative. Gastrointestinal: Negative. Genitourinary: Negative. Musculoskeletal: Negative. All other systems reviewed and are negative. PAST MEDICAL HISTORY Diagnosis Date Anemia Depression/anxiety Ganglion cyst of wrist, left Irregular menses Current Outpatient Medications Medication Sig Dispense Refill aspirin, enteric coated (ECOTRIN LOW STRENGTH) 81 mg EC tablet Take 1 tablet by mouth once daily. 90 tablet 3 pyridoxine, vitamin B6, (VITAMIN B-6) 50 mg tablet Take 50 mg by mouth once daily. Clnudtxb-Au-Vaw-Fe-FA tab Take 1 tablet by mouth once daily. With folic acid and DHA as covered by insurance. 30 tablet 11 ondansetron orally disintegrating (ZOFRAN ODT) 4 mg disintegrating tablet EVERY 8 HOURS NEEDED as needed for Nausea No current facility-administered medications for this visit. PAST SURGICAL HISTORY Procedure Laterality Date DENTAL SURGERY HX 2015 ORTHOPEDICS SURGERY HX knee torn meniscus WRIST Left cyst on left wrist FAMILY [...] Never Smokeless tobacco: Never Vaping Use Vaping status: Former Quit date: 05/19/2021 Substance Use Topics Alcohol use: Not Currently Comment: occasionally Drug use: No Objective BP 107/69 Pulse 97 Temp 36.1 ?C (96.9 ?F) Resp 20 Wt 73.3 kg (161 lb 9.6 oz) LMP 08/21/2023 (Approximate) SpO2 99% BMI 27.31 kg/m? Physical Exam Vitals reviewed. Constitutional: Appearance: Normal appearance. HENT: Head: Normocephalic and atraumatic. Right Ear: Tympanic membrane, ear canal and external ear normal. Left Ear: Tympanic membrane, ear canal and external ear normal. Nose: Congestion present. Mouth/Throat: Mouth: Mucous membranes are moist. Pharynx: Posterior oropharyngeal erythema present. No pharyngeal swelling, oropharyngeal exudate or uvula swelling. Tonsils: No tonsillar exudate or tonsillar abscesses. Cardiovascular: Rate and Rhythm: Normal rate and regular rhythm. Heart sounds: Normal heart sounds. Pulmonary: Effort: Pulmonary effort is normal. Breath sounds: Normal breath sounds. Musculoskeletal: Cervical back: Neck supple. Skin: General: Skin is warm and dry. Neurological: General: No focal deficit present. Mental Status: She is alert. Assessment and Plan ASSESSMENT/PLAN: 1. Viral URI - ICD9: 465.9, ICD10: J06.9 - Discussed viral etiology and rationale for treatment. - Symptomatic treatment with prn analgesia with tylenol, avoid nsaids in . - Supportive care with fluids and rest . - Follow up in 3-5 days if symptoms persist or sooner if worsening of symptoms - COVID AND INFLUENZA A/B AND RSV PCR, ROUTINE - STREP A MOLECULAR (POC) Neeta Rey PA-C Allergies As of Date: 03/18/2024 Noted Allergy Reaction LACTASE 06/26/2020 14 - Other: See Comments Date Reviewed: 03/18/2024 Reviewed by: Jessy Alicea LPN - Fully Assessed Reason for Visit: Sore Throat [200] Cmt: Runny nose x 2 days Primary Visit Diagnosis:Viral URI [J06.9] Order(s):COVID AND INFLUENZA A/B AND RSV PCR, ROUTINE [SQCVFLRS] Order #: [id number]. #:[id number] STREP A MOLECULAR (POC) [5191033] Order #: [id number]. #:[id number] (more content not included)... Normal [facility] 03-18-2024 [facility] Telephone (OBGYWM) BEATRIS FLETCHER ([id number]) 3 F Date Time Provider Department 03/18/24 PRAMOD ROMERO During your visit today, we recorded the following information about you: Allergies As of Date: 03/18/2024 Noted Allergy Reaction LACTASE 06/26/2020 14 - Other: See Comments Date Reviewed: 03/18/2024 Reviewed by: Jessy Alicea LPN - Fully Assessed Reason for Visit: Results [95] Primary Visit Diagnosis:Elevated glucose tolerance test [R73.09] Order(s):GEST GLUC LYSSA, 3-HR, 100 GM, FASTING [SQGTGST3] Order #: [id number] FUTURE Prescriptions as of 03/18/2024 - aspirin, enteric coated (ECOTRIN LOW STRENGTH) 81 mg EC tablet Take 1 tablet by mouth once daily. - pyridoxine, vitamin B6, (VITAMIN B-6) 50 mg tablet Take 50 mg by mouth once daily. - Dfdhrvhz-Lt-Zwh-Fe-FA tab Take 1 tablet by mouth once daily. With folic acid and DHA as covered by insurance. - ondansetron orally disintegrating (ZOFRAN ODT) 4 mg disintegrating tablet EVERY 8 HOURS NEEDED as needed for Nausea Problem List As Of Date 03/18/2024 Noted Resolved Nocturnal enuresis [N39.44] 10/16/2010 02/22/2020 [...] [O44.40] 01/26/2024 Heartburn during [O26.899, R12] 02/25/2024 Elevated glucose tolerance test [R73.09] 03/18/2024 Encounter Status:Closed by NORA HAILE on 03/18/24 Normal [facility] COVID AND INFLUENZA A/B AND RSV PCR, ROUTINEon 03-18-2024 SARS-CoV-2 (COVID-19) RNA RUPESH+probe Ql (Unsp spec) SARS-COV-2 (AGENT OF COVID-19) RNA: Not detected INFLUENZA A RNA: Not detected INFLUENZA B RNA: Not detected RESPIRATORY SYNCYTIAL VIRUS (RSV) RNA: Not detected Normal [facility] Comment on above: Performed By: #### C VFLRS ####[facility] LABCLIA [id number] [place] [address] [place] GESTATIONAL GLUCOSE SCREEN, 1-HOUR, 50 GRAM, NON-FASTINGon 03-18-2024 Glucose [Mass/Vol] 135 mg/dL High 74-134 [facility] Comment on above: Order Comment: Speci men Type: BLOOD SPECIMENOrdering Facility: [facility] Address: [address] [place] [address] Result Comment: [facility] Congress of Obstetricians and Gynecologists (Lois/Wade) guidelines state a gestational diabetes mellitus positive screen is made, in women not previously diagnosed with overt diabetes, when the 1 hr plasma glucose level is equal to or above 140 mg/dL. The [facility] [employer] and [facility] [place] recommends a 135 mg/dL cutoff. Performed By: #### G LTGST ####[facility] [id number] [place] [address] [place] Reagin and Treponema pallidu m IgG and IgM [Interp]on 03-18-2024 T. pallidum IgG+IgM IA Ql (S) Non-Reactive Normal Nonreactive [facility] Comment on above: Order Comment: Speci men Type: BLOOD SPECIMENOrdering Facility: [facility] Address: [address] [place] [address] Performed By: #### 7 3752-8 ####[facility] LABCLIA [id number] [place] [address] [place] Reagin+T pallidum IgG+IgM Se rPl-Impon 03-18-2024 Reagin and Treponema pallidum IgG and IgM [Interp] Cannot exclude recent Treponemal infection if specimen collected within 7-10 days after appearance of suspect lesions or 2-3 weeks after an exposure. Clinical correlation is required. Normal [facility] Comment on above: Order Comment: Speci men Type: BLOOD SPECIMENOrdering Facility: [facility] Address: [address] [place] [address] [place] [address] Performed By: #### 7 3752-8 ####[facility] LABCLIA [id number] [id number] [id number] [place] STREP A MOLECULAR (POC)on Procedural Control Valid [facility] Strep A (POCT) Negative Negative [facility] OB Triage Physician Noteon [address] [facility] Medical Records Department [address] [place] [address] OB Triage Physician Note 03/13/24 0759 MR#: [id number] Acct: [id number] Name: BEATRIS FLETCHER Rep #: [id number] : 2005 18 From: Leena Gaytan CNM PCP: Dr. Ren Carlson MD Status:REG CLI Y Location: [place] [address] HPI - General HPI Narrative BEATRIS FLETCHER, is a 18 F who presents with decreased movement. Patient stated she has felt movement but not as much as usual. PFSH [facility] Medical History Encounter for screening for COVID-19 Home Medications ???Medication ???Instructions ???Recorded ???Last Taken ???Type ondansetron 4 mg disintegrating 4 mg PO Q8H PRN PRN Nausea #12 tabs 11/05/23 Unknown Rx tablet Allergy/AdvReac Type Severity Reaction Status Date / Time lactase (From D[employer]) Allergy Mild Abdominal Verified 11/05/23 12:05 cramping Family History Grandfather Leukemia DVT (deep venous thrombosis) Grandmother Breast cancer Grandmother Diabetes Heart disease Lung cancer Surgical History History of removal of cyst H/O tooth extraction Social History Smoking Status: Never smoker alcohol intake: never what type of physical activity do you participate in: additional details: gym, sports seatbelt use: always 03/13/24 0810 Date Leena Gaytan CNM Cosigner Signature (if applicable): Date CC: ELIAZAR Gaytan; Dr. Ren Carlson MD Signed ADDENDUM by ELIAZAR Gaytan on 03/13/24 at 0927 Addendum RICK 06/11/24 27.1 weeks gestation NST reactive for gestational age 145 bpm/ mod. variability Patient has felt movement since arrival Reviewed kick counts / PTL precautions D/C home with follow up in office this week 03/13/24926 Date Leena Gaytan CNM cc: ELIAZAR Gaytan; Dr. Ren Carlson MD * Signed Normal [facility] Urinalysis, Completeon 03-13 AMORPHOUS 1+ Normal [facility] Comment on above: Order Comment: COLLE CTOR TO SPECIFY Performed By: #### L 400.0001 #### [facility] [address] [place], [address] Mucus Ql (Urine sed) 1+ /hpf Normal [facility] Comment on above: Order Comment: COLLE CTOR TO SPECIFY Performed By: #### L 400.0001 #### [facility] [address] [place], [address] WBC 0-5 SEEN Normal 0-5 [facility] Comment on above: Order Comment: ERNESTO CTOR TO SPECIFY Performed By: #### L 400.0001 #### [facility] [address] [place], [address] BACTERIA 3+ /hpf Normal None Seen [facility] Comment on above: Order Comment: ERNESTO CTOR TO SPECIFY Performed By: #### L 400.0001 #### [facility] [address] [place], [address] EPI,SQUAMOUS 5-10 SEEN Normal 5-10 [facility] Comment on above: Order Comment: ERNESTO CTOR TO SPECIFY Performed By: #### L 400.0001 #### [facility] [address] [place], [address] RBC 0 SEEN Normal 0-5 [facility] Comment on above: Order Comment: ERNESTO CTOR TO SPECIFY Performed By: #### L 400.0001 #### [facility] [address] [place], [address] CNOVon 02-25-2024 CNOV Office Visit (OBGYWM ) BEATRIS FLETCHER ([id number]) 3 F Date Time Provider Department 02/25/24 2:30 PM LEENA GAYTAN OBBENOITWM During your visit today, we recorded the following information about you: Blood pressure Weight 110/68 71.5 kg Leena Gaytan APRN.CN 02/25/2024 4:34 PM Signed CP- CENTERING S: Beatris Bernard Justine is a 18 year old female who [...] reviewed - RTO 4 weeks Leena Gaytan APRN.Nadine Rose MA 02/25/2024 2:22 PM Signed SEQUENTIAL SCREENINGS The [facility] offers sequential screenings for women who are [...] It will require an appointment with our animal health technician. This is not an ultrasound performed [...] the above symptoms, contact our office at [phone] and ask to speak with a nurse. After hours, you can call doctors registry at [phone] OR call [facility] at [phone] and ask to have the doctor quality control industrial engineer paged. If you consider this an emergency, dial 7 or go to your nearest emergency department. NEED HELP? Are you dealing with a violent or abusive relationship? Are you a victim of rape or sexual assult? Call [facility] ([place]) 24 hour Crisis Hotline: 606.612.8212 or 603-506-2275. MANUAL Your Guide to a Healthy manual is now on-line. Visit [email or web address] [email or web address] to download your free copy Allergies As of Date: 02/25/2024 Noted Allergy Reaction LACTASE 06/26/2020 14 - Other: See Comments Date Reviewed: 02/25/2024 Reviewed by: Leena Gaytan APRN.CNM - Fully Assessed Reason for Visit: Care [...] BLOOD COUNT AND DIFFERENTIAL [SQCBCDIF] Order #: [id number] FUTURE GESTATIONAL GLUCOSE SCREEN, 1-HOUR, 50 GRAM, NON-FASTING [SQGLTGST] Order #: [id number] FUTURE SYPHILIS TREPONEMAL W/REFLEX [SQSYPHTX] Order #: [id number] FUTURE aspirin, enteric coated (ECOTRIN LOW STRENGTH) [...] mouth every 6 hours as needed. - Xlvycbhs-Kx-Apr-Fe-FA tab Take 1 tablet by mouth once daily. With folic acid and DHA as covered by insurance. - VIT 10-IRON FUM-FOLIC ORAL Take by mouth. - ondansetron orally disintegrating (ZOFRAN ODT) 4 mg disintegrating tablet EVERY 8 HOURS N (more content not included)... Normal [facility] 02-25-2024 CNPN Telephone (OBGYWM) JUSTINEBEATRIS L ([id number]) 3 F Date Time Provider Department 02/25/24 LEENA GAYTAN During your visit today, we recorded the following information about you: Tierra Way RN 02/25/2024 8:46 AM Signed Left message [...] mouth every 6 hours as needed. - Nyjnqgle-Au-Jku-Fe-FA tab Take 1 tablet by mouth once [...] Status:Closed by LULÚ LACY on 02/26/[address] [facility] 01-26-2024 CNPN Telephone ([id number]) BEATRIS FLETCHER ([id number]) 3 F Date Time Provider Department 01/26/24 AMELIA ARMSTRONG [id number] During your visit today, we recorded the following information about you: Amelia Armstrong RN 01/26/2024 8:47 AM Signed 2nd risk assessment form submitted 01/26/2024. Amelia Armstrong RN Allergies As of Date: 01/26/2024 Noted Allergy Reaction LACTASE 06/26/2020 14 - Other: See Comments Date Reviewed: 01/23/2024 Reviewed by: Tammi Betancourt MA - Fully Assessed Reason for Visit: Hunter Guide - Other [3602] Cmt: DANIEL Prescriptions as of 01/26/2024 - pyridoxine, vitamin B6, (VITAMIN B-6) 50 mg tablet Take 50 mg by mouth once daily. - promethazine (PHENERGAN) 12.5 mg tablet Take 1 tablet by mouth every 6 hours as needed. - aspirin, enteric coated (ECOTRIN LOW STRENGTH) 81 mg EC tablet Take 1 tablet by mouth once daily. - Zfuiidjj-Xo-Yoh-Fe-FA tab Take 1 tablet by mouth once [...] Encounter Status:Closed by AMELIA ARMSTRONG on 01/26/24 Normal [facility] CNPN Telephone (OBGYWM) JUSTINEBEATRIS Bernard ([id number]) 3 F Date Time Provider Department 01/26/24 [...] 1 tablet by mouth once daily. - Iaargigi-Hq-Xky-Fe-FA tab Take 1 tablet by mouth once [...] Status:Closed by LULÚ LACY on 01/27/24 Normal [facility] Examination level ultrasound on 01-23-2024 Indication Standard [...] 13 oz EFW by: Hadlock (HC-AC-FL) Extended Glue Jointer Operator 6.0 mm CM 7.3 mm 97% Nicolaides [...] normal LVOT view: normal 3-vessel view: normal 7-hcyojd-rbcdamj view: normal Heart / Thorax Situs: situs [...] Read By: Deandra Reza M.D. MATERNAL MEDICINE [facility] Radiology Study observation (narrative) [facility] ALPHA FETOPRO MATERNALon AFP, MATERNAL 0.67 MoM Normal [facility] Comment on above: Order Comment: Speci men Type: BLOOD SPECIMENOrdering Facility: [facility] Address: [address] [place] [address] Result Comment: 21.9 7 ng/mL Performed By: #### A FPMAT ####[facility] LABIA [id number] [address] [place] DATE OF COLLECTION #1 12/23/23 Normal [facility] Comment on above: Order Comment: Speci men Type: BLOOD SPECIMENOrdering Facility: [facility] Address: [address] [place] [address] Performed By: #### A FPMAT ####[facility] LABCLIA [id number] [address] [place] DATE RECEIVED 12/24/23 Normal [facility] Comment on above: Order Comment: Speci men Type: BLOOD SPECIMENOrdering Facility: [facility] Address: [address] [place] [address] Performed By: #### A FPMAT ####[facility] LABCLIA [id number] [place] [address] [place] RICK 06/11/24 Normal [facility] Comment on above: Order Comment: Speci men Type: BLOOD SPECIMENOrdering Facility: [facility] Address: [address] [place] [address] Performed By: #### A FPMAT ####[facility] LABCLIA [id number] [place] [address] [place] GESTATION AT DATE OF SAMPLE 15 weeks 4 days (by scan) Normal [facility] Comment on above: Order Comment: Speci men Type: BLOOD SPECIMENOrdering Facility: [facility] Address: [address] [place] [address] Performed By: #### A FPMAT ####[facility] LABCLIA [id number] [place] [address] [place] INSULIN DEPENDENT DIABETES None Normal [facility] Comment on above: Order Comment: Speci men Type: BLOOD SPECIMENOrdering Facility: [facility] Address: [address] [place] [address] Performed By: #### A FPMAT ####[facility] LABCLIA [id number] [place] [address] [place] IVF No Normal [facility] Comment on above: Order Comment: Speci men Type: BLOOD SPECIMENOrdering Facility: [facility] Address: [address] [place] [address] Performed By: #### A FPMAT ####[facility] LABCLIA [id number] [place] [address] [place] MATERNAL AFP COMMENT See comments below Normal [facility] Comment on above: Order Comment: Speci men Type: BLOOD SPECIMENOrdering Facility: [facility] Address: [address] [place] [address] Result Comment: INTE RPRETATION Screening result : Screen negative Risk of NTD : 1 in 5,400 Comment : The interpretation is for NTD only A screen negative result does not exclude the possibility of a neural tube defect, because screening does not detect all affected pregnancies Performed By: #### A FPMAT ####[facility] LABCLIA [id number] [address] [place] MATERNAL AGE AT RICK 18 years Normal [facility] Comment on above: Order Comment: Kevin matthews Type: BLOOD SPECIMENOrdering Facility: [facility] Address: [address] [place] [address] Performed By: #### A FPMAT ####[facility] LABCLIA [id number] [address] [place] PATIENT'S WEIGHT DAY OF COLLECTION 140 lb. Normal [facility] Comment on above: Order Comment: Rylandi cassie Type: BLOOD SPECIMENOrdering Facility: [facility] Address: [address] [place] [address] Performed By: #### A FPMAT ####[facility] LABCLIA [id number] [address] [place] INTERP-MATERNAL AFP Negative Normal Screen Negative [facility] Comment on above: Order Comment: Rylandi cassie Type: BLOOD SPECIMENOrdering Facility: [facility] Address: [address] [place] [address] Performed By: #### A FPMAT ####[facility] LABCLIA [id number] [place] [address] [place] PREVIOUS NTD None Normal [facility] Comment on above: Order Comment: Rylandi cassie Type: BLOOD SPECIMENOrdering Facility: [facility] Address: [address] [place] [address] Performed By: #### A FPMAT ####[facility] LABCLIA [id number] [address] [place] RISK OF NTD ;1:5400 Normal [facility] Comment on above: Order Comment: Speci men Type: BLOOD SPECIMENOrdering Facility: [facility] Address: [address] [place] [address] Performed By: #### A FPMAT ####[facility] LABCLIA [id number] [address] [place] SAMPLE #1 [id number] Normal [facility] Comment on above: Order Comment: Speci men Type: BLOOD SPECIMENOrdering Facility: [facility] Address: [address] [place] [address] Performed By: #### A FPMAT ####[facility] LABCLIA [id number] [address] STAFF REVIEW (MATERNAL SCREENS) Reviewed by Dane Golden MD, Ph.D ([id number]) Normal [facility] Comment on above: Order Comment: Speci men Type: BLOOD SPECIMENOrdering Facility: [facility] Address: [address] [place] [address] Performed By: #### A FPMAT ####[facility] LABCLIA [id number] [address] [place] Bacteria Ur Culton 4 Bacteria identified Cx Nom (U) ORGANISM ID: 1 50,000-<100,000 CFU/ml Normal urogenital manny Normal [facility] Comment on above: Performed By: #### 6 30-4 ####[facility] LABCLIA [id number] [address] [place] CNOVon 12-12-2023 CNOV Office Visit (UCWSTR ) BEATRIS FLETCHER ([id number]) 3 F Date Time Provider Department 12/12/23 2:45 PM JOSEPH HSU UCWSTR During your visit today, we recorded the following information about you: Temperature Pulse Respiration Blood pressure 98 degrees 102/minute 18/minute 116/77 Weight 62 kg Joseph Hsu APRN.MARINE SUPERINTENDENT 12/12/2023 3:31 PM Signed Subjective HPI HPI Beatris Fletcher is a 18 year old female who presents today for CC of nausea/vomiting, is 14 weeks . Currently prescribed multiple anti nausea medications from tailer off. Tolerating fluids/solids, last void was just before [...] Take 1 tablet by mouth once daily. Anveipcv-Pa-Sfm-Fe-FA tab Take 1 tablet by mouth once [...] ICD10: R11.0 Continue taking medication ordered by tare man Red flag s/s discussed Work note provided Joseph Hsu APRN.MARINE SUPERINTENDENT Allergies As of Date: 12/12/2023 Noted Allergy [...] 1 tablet by mouth once daily. - Mzoxcqzl-Vx-Caf-Fe-FA tab Take 1 tablet by mouth once [...] 08/19/2023 12/02/2023 (more content not included)... [facility] (OBGYWM) BEATRIS FLETCHER ([id number]) 3 F Date Time Provider Department 12/09/23 [...] she can be prescribed? ADRIEN Sandy Jessica, ESAU.CN 12/10/2023 9:07 AM Signed We can try [...] 1 tablet by mouth once daily. - Afibslsc-Ed-Cvk-Fe-FA tab Take 1 tablet by mouth once [...] Encounter Status:Closed by ANDREA CARLTON on 12/10/[facility] Telephone (OBGYWM) BEATRIS FLETCHER ([id number]) 3 F Date Time Provider Department 12/05/23 [...] 1 tablet by mouth once daily. - Rarimfvb-Pf-Uck-Fe-FA tab Take 1 tablet by mouth once [...] Status:Closed by ANDREA CARLTON on 12/05/23 Normal [facility] nuchal translucency me asured by Mike 11-28-2023 Indication First trimester anatomic survey Impression REMOTE READ The patient is referred for a first trimester anatomy scan including nuchal translucency measurement as clinically indicated. - Single, live, intrauterine . - [place] rump length measurement is consistent with the [...] view: normal 4-chamber view with color: normal 5-ppslnx-utwoogq view: normal Abdominal cord insertion: normal Stomach: [...] ovary Vol 7.7 cm Performed By: Dyan Partida RDMS, RVT Read By: Deandra Reza M.D. MATERNAL MEDICINE [facility] Radiology Study observation (narrative) [facility] POC MANAGER DIVERSITY ULTRASOUNDon 11-17-19 Indication Viability; confirm cardiac activity [...] Read By: Anitra Caldwell CNM MATERNAL MEDICINE [facility] BACTERIAL VAGINOSIS NAATon 0 11-15-2023 Interpretation and review of laboratory results Normal [facility] Lactobacillus crispatus+gasseri+elpidio enii + Gardnerella vaginalis + Atopobium vaginae rRNA RUPESH+probe Ql (Vag fld) Negative Negative for bacterial vaginosis [facility] C. trachomatis+N. gonorrhoea e DNA RUPESH+probe Ql (Unsp spec)on 11-15-2023 C. trachomatis rRNA RUPESH+probe Ql (Unsp spec) Negative Negative for Chlamydia trachomatis by amplificaton [facility] Interpretation and review of laboratory results Normal [facility] N. gonorrhoeae rRNA RUPESH+probe Ql (Unsp spec) Negative Negative for Neisseria gonorrhoeae by amplification [facility] LESLIE/TRICHOMONAS NAATon 0 11-15-2023 C. glabrata RNA RUPESH+probe Ql (Vag fld) Negative Negative for Leslie glabrata [facility] Leslie sp DNA RUPESH+probe Ql (Vag fld) Negative Negative for Leslie species [facility] Interpretation and review of laboratory results Normal [facility] T. vaginalis DNA RUPESH+probe Ql (Unsp spec) Negative Negative for Trichomonas vaginalis by amplification [facility] POC MANAGER DIVERSITY ULTRASOUNDon 11-14-19 Radiology Study observation (narrative) [facility] CBC W/Diff, Automatedon 10-17 Absolute Lymph 1.49 X10 3/uL Normal 0.83-4.51 [facility] Comment on above: Performed By: #### L 500.4050, L100.0100 #### [facility] [address] [place], [address] Absolute Neut 3.1 X10 3/uL Normal 2.0-7.7 [facility] Comment on above: Performed By: #### L 500.4050, L100.0100 #### [facility] [address] [place], [address] Basophils/100 WBC (Bld) 0.2 % Normal 0-1 [facility] Comment on above: Performed By: #### L 500.4050, L100.0100 #### [facility] [address] [place], [address] Eosinophils/100 WBC (Bld) 0.6 % Normal 0-5 [facility] Comment on above: Performed By: #### L 500.4050, L100.0100 #### [facility] [address] [place], [address] Erythrocyte distribution width (RBC) [Ratio] 12.0 % Normal 11.6-14.6 [facility] Comment on above: Performed By: #### L 500.4050, L100.0100 #### [facility] [address] [place], [address] Hematocrit (Bld) [Volume fraction] 32.2 % Low 37-47 [facility] Comment on above: Performed By: #### L 500.4050, L100.0100 #### [facility] [address] [place], [address] Hemoglobin (Bld) [Mass/Vol] 11.1 g/dL Low 12.0-15.0 [facility] Comment on above: Performed By: #### L 500.4050, L100.0100 #### [facility] [address] [place], [address] IG% 0.200 Normal 0.0-0.9 [facility] Comment on above: Result Comment: IG% - Immature Granulocytes (promyelocytes, myelocytes and metamyelocytes) > 1% indicates that a LEFT SHIFT is Present. Performed By: #### L 500.4050, L100.0100 #### [facility] [address] [place], [address] Lymphocytes/100 WBC (Bld) 29.9 % Normal 19-41 [facility] Comment on above: Performed By: #### L 500.4050, L100.0100 #### [facility] [address] [place], [address] MCH (RBC) [Entitic mass] 29.7 pg Normal 27.0-32.0 [facility] Comment on above: Performed By: #### L 500.4050, L100.0100 #### [facility] [address] [place], [address] MCHC (RBC) [Mass/Vol] 34.5 g/dL Normal 32-36 [facility] Comment on above: Performed By: #### L 500.4050, L100.0100 #### [facility] [address] [place], [address] MCV (RBC) [Entitic vol] 86.1 fL Normal 81-99 [facility] Comment on above: Performed By: #### L 500.4050, L100.0100 #### [facility] [address] [place], [address] Monocytes/100 WBC (Bld) 6.6 % Normal 0-10 [facility] Comment on above: Performed By: #### L 500.4050, L100.0100 #### [facility] [address] [place], [address] Neutrophils/100 WBC (Bld) 62.5 % Normal 47-70 [facility] Comment on above: Performed By: #### L 500.4050, L100.0100 #### [facility] [address] [place], [address] Nucleated RBC (Bld) [#/Vol] 0 10*3/uL Normal 0-5 [facility] Comment on above: Performed By: #### L 500.4050, L100.0100 #### [facility] [address] [place], [address] Platelet mean volume (Bld) [Entitic vol] 11.0 fL Normal 6.2-12.0 [facility] Comment on above: Performed By: #### L 500.4050, L100.0100 #### [facility] [address] [place], [address] Platelets (Bld) [#/Vol] 144 10*3/uL Low 150-450 [facility] Comment on above: Performed By: #### L 500.4050, L100.0100 #### [facility] [address] [place], [address] RBC (Bld) [#/Vol] 3.74 10*6/uL Low 4.2-5.4 [facility] Comment on above: Performed By: #### L 500.4050, L100.0100 #### [facility] [address] [place], [address] RDW SD 37.3 fl Normal 35.1-43.9 [facility] Comment on above: Performed By: #### L 500.4050, L100.0100 #### [facility] [address] [place], [address] WBC (Bld) [#/Vol] 5.0 10*3/uL Normal 4.4-11.0 [facility] Comment on above: Performed By: #### L 500.4050, L100.0100 #### [facility] [address] [place], [address] Comprehensive Metabolic Prof mdon 11-05-2023 Albumin [Mass/Vol] 3.5 g/dL Normal 3.2-5.0 [facility] Comment on above: Performed By: #### L 500.4050, L100.0100 #### [facility] [address] [place], [address] Albumin/Globulin [Mass ratio] 1.2 {ratio} Normal 0.9-2.4 [facility] Comment on above: Performed By: #### L 500.4050, L100.0100 #### [facility] [address] [place], [address] ALK P 40 U/L Low 45-117 [facility] Comment on above: Performed By: #### L 500.4050, L100.0100 #### [facility] [address] [place], [address] ALT [Catalytic activity/Vol] 16 U/L Normal 13-56 [facility] Comment on above: Performed By: #### L 500.4050, L100.0100 #### [facility] [address] [place], [address] AST [Catalytic activity/Vol] 11 U/L Low 15-37 [facility] Comment on above: Performed By: #### L 500.4050, L100.0100 #### [facility] [address] [place], [address] Bilirubin [Mass/Vol] 0.70 mg/dL Normal 0.20-1.00 [facility] Comment on above: Result Comment: For patients on eltrombopag therapy, use of Dimension [place] TBIL is not recommended. Performed By: #### L 500.4050, L100.0100 #### [facility] [address] [place], [address] BUN/CRE 16.4 RATIO Normal 10-20 [facility] Comment on above: Performed By: #### L 500.4050, L100.0100 #### [facility] [address] [place], [address] CA,Total 8.8 mg/dL Normal 8.5-10.1 [facility] Comment on above: Performed By: #### L 500.4050, L100.0100 #### [facility] [address] [place], [address] Chloride [Moles/Vol] 105 mmol/L Normal 98-107 [facility] Comment on above: Performed By: #### L 500.4050, L100.0100 #### [facility] [address] [place], [address] CO2 [Moles/Vol] 25.0 mmol/L Normal 21.0-32.0 [facility] Comment on above: Performed By: #### L 500.4050, L100.0100 #### [facility] [address] [place], [address] Creatinine [Mass/Vol] 0.49 mg/dL Low 0.55-1.02 [facility] Comment on above: Result Comment: The validity of the calculated GFR GFRAA in patients over 70 years has not been determined. Clinical correlation is essential. Performed By: #### L 500.4050, L100.0100 #### [facility] [address] [place], [address] ECRCL 159.46 ml/min Normal [facility] Comment on above: Performed By: #### L 500.4050, L100.0100 #### [facility] [address] [place], [address] EST GFR - AA 210 mL/min Normal >60 [facility] Comment on above: Result Comment: Afri can Chinese GFR Calc Performed By: #### L 500.4050, L100.0100 #### [facility] [address] [place], [address] GAP 4 Low 5-15 [facility] Comment on above: Performed By: #### L 500.4050, L100.0100 #### [facility] [address] [place], [address] GFR/1.73 sq M.predicted among non-blacks MDRD (S/P/Bld) [Vol rate/Area] 173 mL/min/{1.73_m2} Normal >60 [facility] Comment on above: Result Comment: Non- GFR Calc Performed By: #### L 500.4050, L100.0100 #### [facility] [address] [place], [address] Globulin (S) [Mass/Vol] 3.0 g/dL Normal 2.2-4.2 [facility] Comment on above: Performed By: #### L 500.4050, L100.0100 #### [facility] [address] [place], [address] Glucose [Mass/Vol] 72 mg/dL Low 74-106 [facility] Comment on above: Performed By: #### L 500.4050, L100.0100 #### [facility] [address] [place], [address] Potassium [Moles/Vol] 3.4 mmol/L Low 3.5-5.1 [facility] Comment on above: Performed By: #### L 500.4050, L100.0100 #### [facility] [address] [place], [address] Sodium [Moles/Vol] 134 mmol/L Low 136-145 [facility] Comment on above: Performed By: #### L 500.4050, L100.0100 #### [facility] [address] [place], [address] T PROT 6.5 g/dL Normal 6.4-8.2 [facility] Comment on above: Performed By: #### L 500.4050, L100.0100 #### [facility] [address] [place], [address] Urea nitrogen [Mass/Vol] 8 mg/dL Normal 7-18 [facility] Comment on above: Performed By: #### L 500.4050, L100.0100 #### [facility] [address] [place], [address] Emergency Department Summary on 11-05-2023 Emergency Department Summary [facility] Medical Records Department [address] [place] [address] Emergency Department Summary 11/05/23 MR#: [id number] Acct: [id number] Name: BEATRIS FLETCHER Rep #: [id number] : 2005 18 From: Maxi Woodall DO PCP: Dr. Ren Carlson MD Status:DEP ER Location: ED HPI History of Present Illness Chief Complaint: Nausea/Vomiting Informant: patient Narrative Narrative: 18-year-old female presenting to the emergency room out of concern for dehydration and electrolyte disturbance. Patient states she is about 8 weeks . She had an ultrasound yesterday the care center that shows a single live intrauterine . She states that for the past several weeks she has had morning sickness. She states she has been taking pqxh-wcw-evjpjlt vitamins and sometimes is helpful. She recently traveled to [place] on vacation and returned home. She did not feel any different on vacation. She went to urgent care today they advised her to come to emergency for evaluation. She plans on seeing [facility] obstetrics for care. She denies any vaginal bleeding or leakage of fluids. No pelvic pain. [facility] Medical History Encounter for screening for COVID-19 Home Medications ???Medication ???Instructions ???Recorded ???Last Taken ???Type ondansetron 4 mg disintegrating 4 mg PO Q8H PRN PRN Nausea #12 tabs 11/05/23 Unknown Rx tablet Allergy/AdvReac Type Severity Reaction Status Date / Time lactase (From Dairy Aid) Allergy Mild Abdominal Verified 11/05/23 12:05 cramping Family History Grandfather Leukemia DVT (deep venous thrombosis) Grandmother Breast cancer Grandmother Diabetes Heart disease Lung cancer Surgical History History of removal of cyst H/O tooth extraction Social History Smoking Status: Never smoker alcohol intake: never what type of physical activity do you participate in: additional details: gym, sports seatbelt use: always ROS ROS ED Constitutional Constitutional ED: Denies chills, fever(s) or weight loss Eyes Eyes: Denies change in vision or diplopia ENT ENT ED: Denies ear pain, rhinorrhea or sore throat Cardiovascular Cardiovascular: Denies chest pain, orthopnea, palpitations or racing heartbeat Respiratory/Chest Respiratory/Chest: Denies cough, dyspnea or orthopnea Gastrointestinal Gastrointestinal: Reports nausea and vomiting; Denies abdominal pain or diarrhea Genitourinary Genitourinary ED: Denies dysuria, hematuria or urinary frequency Musculoskeletal Musculoskeletal: Denies arthralgias or myalgias Integumentary Denies abscess or rash Neurologic Neurologic: Denies headache(s) or weakness Psychiatric Psychiatric: Denies anxiety, depression, suicidal ideation or suicidal thoughts Endocrine Endocrinology: Denies polydipsia, polyphagia or polyuria Allergic/Immunologic Allergic/Immunologic ED: Denies mouth swelling, tongue swelling or urticaria EXAM Physical Exam Const Vital Signs: 11/05/23 12:03 11/05/23 14:02 Temperature 97.7 F L Temperature Source Temporal Pulse Rate 93 72 Respiratory Rate 14 18 Blood Pressure 131/65 H 94/63 Blood Pressure Mean 87 73 Pulse Ox 100 99 Oxygen Delivery Method Room Air Room Air Positive well nourished and well developed General Appearance ED: well developed and NAD HEENT Reports normocephalic, head/scalp atraumatic and moist mucous membranes Eyes PERRL and EOMs intact bilaterally Neck no lymphadenopathy, supple and no JVD Resp normal respiratory effort and clear to auscultation bilaterally Cardio regular rate, regular rhythm and no murmurs GI normal to inspection, nondistended, normoactive bowel sounds and non-tender Palpation: soft Back/Spine no CVA tenderness and normal ROM Extremity normal to inspection General Extremety ED: Negative for edema General Extremity: Negative for edema Neuro oriented x3 and CN's II-XII intact bilaterally Sensorium / Orientation: alert Motor Exam: strength 5/5 throughout Psych mental status grossly normal Mood Affect: Negative for depressed or tearful Skin no rashes or lesions noted and no wounds MDM MDM MDM Narrative Medical decision making narrative: Differential diagnosis includes but not limited to dehydration electrolyte abnormalities hyperemesis gravidarum bowel obstruction gastroenteritis White count of 5 with a hemoglobin of 11.1 platelet count of 144. LFTs are within normal limits. Sodium 134 potassium 3.4 BUN of 8 creatinine 0.49. Patient received IV fluids and Zofran. She is not having any bleedi (more content not included)... Normal [facility] Urinalysis, Completeon 11-04 EPI,RENAL 0 SEEN Normal 0-5 [facility] Comment on above: Order Comment: CLEAN CATCH Performed By: #### L [id number] #### [facility] [address] [place], [address] RBC 0-5 SEEN Normal 0-5 [facility] Comment on above: Order Comment: CLEAN CATCH Performed By: #### L [id number] #### [facility] [address] [place], [address] AMORPHOUS 2+ Normal [facility] Comment on above: Order Comment: CLEAN CATCH Performed By: #### L [id number] #### [facility] [address] [place], [address] BACTERIA 1+ /hpf Normal None Seen [facility] Comment on above: Order Comment: CLEAN CATCH Performed By: #### L [id number] #### [facility] [address] [place], [address] EPI,SQUAMOUS 5-10 SEEN Normal 5-10 [facility] Comment on above: Order Comment: CLEAN CATCH Performed By: #### L [id number] #### [facility] [address] [place], [address] EPI,TRANSITION 0-5 SEEN Normal 0-5 [facility] Comment on above: Order Comment: CLEAN CATCH Performed By: #### L [id number] #### [facility] [address] [place], [address] WBC 0-5 SEEN Normal 0-5 [facility] Comment on above: Order Comment: CLEAN CATCH Performed By: #### L [id number] #### [facility] [address] [place], [address] Mucus Ql (Urine sed) 0 SEEN Normal [facility] Comment on above: Order Comment: CLEAN CATCH Performed By: #### L [id number] #### [facility] [address] [place], [address] MR Knee - left WO contraston 08-29-2023 [facility] XR Knee - left 4 Viewson [facility] Absolute lymphocyte countOrd ered By: Vlad Jay on 06-03-2023 Lymphocytes Auto (Unsp spec) [#/Vol] 2.43 10*3/uL 0.83-4.51 [facility] Acetaminophen level (mass/vo lume)Ordered By: Vlad Jay on 06-03-2023 Acetaminophen (Unsp spec) [Mass/Vol] 42.2 ug/mL 10.0-30.0 [facility] Basophil percentageOrdered B y: Vlad Jay on 06-03-2023 Basophil percentage 0 SEEN /hpf 0-5 [facility] Basophils/100 WBC (Bld) 0.3 % 0-1 [facility] Bilirubin [Mass/Vol] 0.90 mg/dL 0.20-1.00 [facility] Comment on above: For patients on eltr ombopag therapy, use of Dimension [place] TBIL is not recommended. Chloride [Moles/Vol] 106 mmol/L 98-107 [facility] Eosinophils/100 WBC (Bld) 0.8 % 0-3 [facility] Glucose [Mass/Vol] 99 mg/dL 74-106 [facility] Neutrophils (Bld) [#/Vol] 2.9 10*3/uL 2.0-7.7 [facility] Neutrophils/100 WBC (Bld) 50.0 % 34-64 [facility] Potassium [Moles/Vol] 3.6 mmol/L 3.5-5.1 [facility] Protein [Mass/Vol] 7.4 g/dL 6.4-8.2 [facility] Sodium [Moles/Vol] 140 mmol/L 136-145 [facility] WBC (Bld) [#/Vol] 5.9 10*3/uL 4.5-13.0 [facility] Bilirubin Test strip Ql (U)O rdered By: Vlad Jay on 06-03-2023 Bilirubin Ql (U) Negative Negative [facility] Blood erythrocytes count (nu mber/volume)Ordered By: Vlad Jay on 06-03-2023 RBC (Bld) [#/Vol] 4.69 10*6/uL 4.1-4.8 [facility] Blood hemoglobin measurement (mass/volume)Ordered By: Vlad Jay on 06-03-2023 Hemoglobin (Bld) [Mass/Vol] 13.1 g/dL 12.0-15.0 [facility] Blood lymphocytes/100 leukoc ytesOrdered By: Vlad Jay on 06-03-2023 Lymphocytes/100 WBC (Bld) 41.3 % 25-45 [facility] Blood monocytes/100 leukocyt esOrdered By: Vlad Jay on 06-03-2023 Monocytes/100 WBC (Bld) 7.3 % 3-6 [facility] Blood platelet mean volumeOr dered By: Vlad Jay on 06-03-2023 Platelet mean volume (Bld) [Entitic vol] 10.9 fL 6.2-12.0 [facility] COVID-19 virus antigen assay Ordered By: Vlad Jay on 06-03-2023 SARS-CoV-2 (COVID-19) Ag IA.rapid Ql (Resp) [facility] Determination of erythrocyte mean corpuscular volume (MCV)Ordered By: Vlad Jay on 06-03-2023 MCV (RBC) [Entitic vol] 82.9 fL 78-96 [facility] Direct bilirubinOrdered By: Vlad Jay on 06-03-2023 Bilirubin.direct [Mass/Vol] 0.24 mg/dL 0.00-0.30 [facility] Hematocrit Auto (Bld) [Volum e fraction]Ordered By: Vlad Jay on 06-03-2023 Hematocrit (Bld) [Volume fraction] 38.9 % 37-46 [facility] INR in Blood by Coagulation assayOrdered By: Vlad Jay on 06-03-2023 INR Coag (Bld) [Relative time] 1.1 {INR} [facility] Ketones Test strip Ql (U)Ord ered By: Vlad Jay on 06-03-2023 Ketones Ql (U) Negative Negative [facility] - Chemistry and C hemistry - challengeOrdered By: Vlad Jay on 06-03-2023 ALP [Catalytic activity/Vol] 52 U/L 47-119 [facility] ALT [Catalytic activity/Vol] 17 U/L 13-56 [facility] CO2 [Moles/Vol] 28.0 mmol/L 21.0-32.0 [facility] Globulin (S) [Mass/Vol] 3.1 g/dL 2.2-4.2 [facility] HCG ( test) Ql (U) Negative [facility] Comment on above: Very dilute urine sp ecimens, as indicated by a low specificgravity, may not contain sales representative advertising levels of hCG. If is still suspected, a first morning urinespecimen should be collected 48 hours later and tested. Urea nitrogen/Creatinine [Mass ratio] 14.0 mg/mg 10-20 [facility] - CoagulationOrde red By: Vlad Jay on 06-03-2023 PT Coag (PPP) [Time] 14.3 s 11.7-14.9 [facility] - Drug toxicology Ordered By: Vlad Jay on 06-03-2023 Amphetamines Ql (U) Negative <1000 ng/mL [facility] Benzodiazepines Ql (U) Negative < 200 ng/mL [facility] Cannabinoids Screen Ql (U) Positive < 50 ng/mL [facility] Cocaine Ql (U) Negative < 300 ng/mL [facility] Opiates Ql (U) Negative < 300 ng/mL [facility] - Hematology and Cell countsOrdered By: Vlad Jay on 06-03-2023 Erythrocyte distribution width (RBC) [Entitic vol] 38.3 fL 35.1-43.9 [facility] Erythrocyte distribution width (RBC) [Ratio] 12.8 % 11.6-14.6 [facility] Immature granulocytes/100 WBC (Bld) 0.300 % 0.0-0.9 [facility] Comment on above: IG% - Immature Granu locytes (promyelocytes, myelocytes and metamyelocytes) > 1% indicates that a LEFT SHIFT is Present. MCH (RBC) [Entitic mass] 27.9 pg 25.0-35.0 [facility] Nucleated RBC/100 WBC (Bld) [Ratio] 0 % 0-5 [facility] MCHC Auto (RBC) [Mass/Vol]Or dered By: Vlad Jay on 06-03-2023 MCHC (RBC) [Mass/Vol] 33.7 g/dL 32-36 [facility] Mucus LM Ql (Urine sed)Order ed By: Vlad Jay on 06-03-2023 Mucus Ql (Urine sed) 0 SEEN /hpf [facility] Nitrite Test strip Ql (U)Ord ered By: Vlad Jay on 06-03-2023 Nitrite Ql (U) Negative Negative [facility] No Panel InformationOrdered By: Vlad Jay on 06-03-2023 Estimated Creatinine Clearance Calc 116.44 ml/min [facility] Estimated GFR (MDRD) Amer 136 mL/min >60 [facility] Comment on above: GFR Calc Estimated GFR (MDRD) Non-Af Amer 112 mL/min >60 [facility] Comment on above: Non- GFR Calc Ethyl Alcohol Level < 3.0 mg/dL [facility] Comment on above: The serum:whole bloo d ethanol ratio is approximately 1.14and varies slightly with hematocrit. Medical Alcohol reference interval and critical value innon-tolerant individuals; 50 - 100 Impairment 100 Intoxication 100 - 250 Severe Poisoning 250 - 400 Deep/possible fatal coma MDMA (Ecstasy) Screen Negative < 500 ng/mL [facility] [place] Urine Barbiturates Screen Negative < 200 ng/mL [facility] Urine Drug Screen Comment [facility] Comment on above: CONFIRMATORY TESTING FOR ALL POSITIVE URINE DRUG SCREENRESULTS WILL ONLY BE SENT OUT UPON PHYSICIAN ORDER. VISTA Urine Drug Screen methods provide only preliminaryanalytical test results. A more specific alternate chemicalmethod must be used in order to obtain a confirmedanalytical result. Gas chromatography/mass spectrometery(GC/MS) is the preferred confirmatory method. Clinicalconsideration and professional judgement should be appliedto any drug of abuse test result, particularly whenpreliminary positive results are used. URINE TCA TESTING MUST BE ORDERED SEPARATELY. USE TESTMNEMONIC: [facility] Urine Methadone Screen Negative < 300 ng/mL [facility] Platelets bldOrdered By: Koko Jay on 06-03-2023 Platelets (Bld) [#/Vol] 215 10*3/uL 150-450 [facility] Protein Test strip Ql (U)Ord ered By: Vlad Jay on 06-03-2023 Protein Ql (U) 15 mg/dl Negative [facility] Serum or plasma albumin harriet urement (mass/volume)Ordered By: Vlad Jay on 06-03-2023 Albumin [Mass/Vol] 4.3 g/dL 3.2-5.0 [facility] Serum or plasma calcium harriet urement (mass/volume)Ordered By: Vlad Jay on 06-03-2023 Calcium [Mass/Vol] 9.4 mg/dL 8.5-10.1 [facility] Serum or plasma creatinine m easurement (mass/volume)Ordered By: Vlad Jay on 06-03-2023 Creatinine [Mass/Vol] 0.71 mg/dL 0.55-1.02 [facility] Comment on above: The validity of the calculated GFR & GFRAA in patients over 70 years has not been determined. Clinical correlation is essential. Serum or plasma salicylates measurement (mass/volume)Ordered By: Vlad Jay on 06-03-2023 Salicylates [Mass/Vol] mg/dL 2.8-20.0 [facility] [place] Serum or plasma urea nitroge n measurement (mass/volume)Ordered By: Vlad Jay on 06-03-2023 Urea nitrogen [Mass/Vol] 10 mg/dL 7-18 [facility] Squamous epithelial cells de tection in urine sediment by light microscopyOrdered By: Vlad Jay on 06-03-2023 Epithelial cells.squamous LM Ql (Urine sed) 0 SEEN /hpf 5-10 [facility] Thin prep Papanicolaou smear with manual screeningOrdered By: Vlad Jay on 06-03-2023 Thin prep Papanicolaou smear with manual screening 7 U/L 15-37 [facility] Thin prep Papanicolaou smear with manual screening 6 5-15 [facility] Urine blood detectionOrdered By: Vlad Jay on 06-03-2023 RBC Ql (U) 10 /ul Negative [facility] RBC Ql (U) 0 SEEN /hpf 0-5 [facility] Urine clarityOrdered By: Koko Jay on 06-03-2023 Clarity (U) Clear Clear [facility] Urine color determinationOrd ered By: Vlad Jay on 06-03-2023 Color (U) Yellow Yellow [facility] Urine glucose detectionOrder ed By: Vlad Jay on 06-03-2023 Glucose Ql (U) Normal mg/dl Normal [facility] Urine leukocyte esterase det ection by dipstickOrdered By: Vlad Jay on 06-03-2023 Leukocyte esterase Test strip Ql (U) 25 /ul Negative [facility] Urine pHOrdered By: Vlad bravo on 06-03-2023 pH (U) 7.0 [pH] 5.0 - 8.0 [facility] Urine phencyclidine (PCP) de tectionOrdered By: Vlad Jay on 06-03-2023 Phencyclidine Ql (U) Negative < 25 ng/mL [facility] Urine sediment bacteria coun t by microscopy (number/high power field)Ordered By: Vlad Jay on 06-03-2023 Bacteria LM.HPF (Urine sed) [#/Area] 0 /[HPF] None Seen [facility] Urine specific gravity measu rementOrdered By: Vlad Jay on 06-03-2023 Specific gravity (U) [Rel density] 1.010 1.002-1.030 [facility] Urobilinogen Auto test strip Ql (U)Ordered By: Vlad Jay on 06-03-2023 Urobilinogen Ql (U) Normal mg/dl Normal [facility] ED NOTEon 04-18-2023 ED NOTE HNO ID: [id number] Author: Michael Gomez RN Service: Emergency Medicine Author Type: Registered Nurse Type: ED Notes Filed: 04/23/2023 5:36 AM Note Text: Chart accessed for audit purposes on 04/23/23. [facility] ED NOTE HNO ID: [id number] Author: Shelby Leach RN Service: Emergency Medicine Author Type: Registered Nurse Type: ED Notes Filed: 04/18/2023 7:36 AM Note Text: Patient is alert and oriented, denies any questions/concerns at this time. Patient verbalizes understanding of d/c instructions, medications and follow up care. Patient ambulates from department at this time. [facility] ED PROV NOTEon 04-18-2023 ED PROV NOTE HNO ID: [id number] Author: Fred Lopez MD Service: Emergency Medicine [...] (137 lb 14.4 oz) 1.626 m (5' 4) Physical Exam Vitals and nursing note reviewed. [...] loss of (more content not included)... Normal [facility] FLUABV+SARS-CoV-2+RSV Pnl Re sp RUPESH+probeon 04-18-2023 FLUABV+SARS-CoV-2+RSV Pnl Resp RUPESH+probe COVID 19 RESULT: Not detected The method used is RT-PCR or an equivalent NAAT method. Reference Range(the expected result in uninfected individuals): Not detected INFLUENZA A PCR: Not detected INFLUENZA B PCR: Not detected RSV PCR: Not detected Normal [facility] Comment on above: Performed By: #### 9 [id number] #### [facility] CLIA [id number] [address] [place] [address] [place] S pyo DNA Throat Ql RUPESH+prob jose martin 04-18-2023 S. pyogenes DNA RUPESH+probe Ql (Throat) Not detected Normal Not detected [facility] Comment on above: Order Comment: Speci men Type: SWAB Ordering Facility: [facility] Address: [place] [address] Performed By: #### 6 [id number] #### [facility] CLIA [id number] [address] [place] [address] [facility] STREP A MOLECULAR (POC)on Procedural Control Valid [facility] Strep A (POCT) Negative Negative [facility] No Panel Informationon 02-18 Radiology Study observation (narrative) [facility] XR Ankle - right AP and Late ral and obliqueon 02-18-2023 IMPRESSION: No fracture. [employer] Inspector And Adjuster: CHAPARRITA Transcribe Date/Time: Feb 18 2023 12:08P Dictated by : JULIETH MELARA MD This examination was interpreted and the report reviewed and electronically signed by: JULIETH MELARA MD on Feb 18 2023 12:11PM [facility] DIVISION OF RADIOLOGY * * *Final Report* [...] soft tissue swelling. DIVISION OF RADIOLOGY Provider, [facility] Reuben [facility] - 02/18/2023 * * *Final Report* * [...] tissue swelling. IMPRESSION IMPRESSION: No fracture. [employer] Inspector And Adjuster: CHAPARRITA Transcribe Date/Time: Feb 18 2023 12:08P Dictated by : JULIETH MELARA MD This examination was interpreted and the report reviewed and electronically signed by: JULIETH MELARA MD on Feb 18 2023 12:11PM EST [facility] XR Ankle - right AP and Late ral and obliqueOrdered By: Ccf Provider on 02-18-2023 [facility] XR Foot - right AP and Later al and obliqueon 02-18-2023 IMPRESSION: No acute osseous abnormality [employer] Inspector And Adjuster: [facility] Transcribe Date/Time: Feb 18 2023 12:22P Dictated by : FRED MCKENNA MD This examination was interpreted and the report reviewed and electronically signed by: FRED MCKENNA MD on Feb 18 2023 12:25PM [facility] DIVISION OF RADIOLOGY * * *Final Report* [...] the navicular bone. DIVISION OF RADIOLOGY Provider, [facility] - 02/18/2023 * * *Final Report* * [...] IMPRESSION IMPRESSION: No acute osseous abnormality [employer] Adjuster: PSCB Transcribe Date/Time: Feb 18 2023 12:22P Dictated by : FRED MCKENNA MD This examination was interpreted and the report reviewed and electronically signed by: FRED MCKENNA MD on Feb 18 2023 12:25PM EST [facility] XR Foot - right AP and Later al and obliqueOrdered By: Ccf Provider on 02-18-2023 [facility] STREP A MOLECULAR (POC)on Procedural Control Valid [facility] Strep A (POCT) Negative Negative [facility] MRI KNEE WO IVCON LTon 10-16 [facility] ALLIED HEALTHon 09-26-2021 ALLIED HEALTH HNO ID: [id number] Author: RT Xiomara(R) Service: ? Author Type: Manager Body Type: Allied Health Filed: 09/26/2021 12:17 PM [...] RT Xiomara(R) September 26, 2021 12:[address] [facility] XR KNEE 4V AP/PA BOTH+LAT/ME R [...] in the lateral and patellofemoral compartments. [employer] And Adjuster: PSC[employer] Transcribe Date/Time: Sep 26 2021 12:52P Dictated by : JULIETH MELARA MD This examination was interpreted and the report reviewed and electronically signed by: JULIETH MELARA MD on Sep 26 2021 12:56PM EST [id number] [facility] XR KNEE GENERAL 4V AP BOTH/P A BOTH/LAT/MERC LEFTon 09-26-2021 [facility] ANES Yumi 12-03-2019 ANES POST HNO ID: [id number] Author: Jocy Beatty Service: Anesthesiology Author Type: [...] 12/03/19 0845 12/03/19 0900 12/03/19 0930 Resp: 20 16 12/03/19 0725 12/03/19 0730 12/03/19 [...] 03, 2019 TIME: 5:58 PM PAGER/CONTACT #: [facility] ANES PREOPon 12-03-2019 ANES PREOP HNO ID: [id number] Author: Jocy Beatty Service: Anesthesiology Author Type: Anesthesiologist Type: Anesthesia PreOp Filed: 12/03/2019 6:50 AM Note Text: ANESTHESIOLOGY DAY OF SURGERY NOTE SERVICE DATE: 12/03/2019 SERVICE TIME: 6:49 AM : 2004 Procedure(s) (LRB): EXCISION GANGLION WRIST (Left) Surgeon(s): Eb Domingo Estimated body mass index is 25.06 kg/m? as calculated from the following: Height as of 11/25/19: 162.6 cm (5' 4). Weight as of 11/25/19: 66.2 kg (146 lb). Most recent hematocrit and potassium results: No results found for this basename: HCT,HEMATOCRIT,K,POTASS IUM ANES DOS/PREOP NOTE: Vitals: There were no vitals filed for this visit. ACTIVE PROBLEM LIST Flat Feet Nocturnal Enuresis Seborrhea Influenza Vaccine Refused Flat Foot Ganglion Cyst of Wrist, Left PAST MEDICAL HISTORY Diagnosis Date - Flat feet 10/16/2010 - Ganglion cyst of wrist, left - Immunization refused - Seborrhea 06/05/2016 PAST SURGICAL HISTORY Procedure Laterality Date - DENTAL SURGERY 2014 FAMILY HISTORY Problem Relation [...] 2 g INTRAVENOUS Pre-Op Once Jennifer N (Pa-C) Cortez - lactated ringers infusion 5-30 mL/hr INTRAVENOUS CONTINUOUS Jennifer N (Owen-C) Diego - midazolam (PF) 2 mg injection (VERSED) 2 mg INTRAVENOUS Pre-Op Once Jocy White - acetaminophen 1,000 mg tab(s) (TYLENOL) 1,000 [...] Beatris Fletcher DATE: December 03, 2019 TIME: 6:49 AM CSN: [id number] [facility] OPERATIVE NOon 12-03-2019 OPERATIVE NO HNO ID: [id number] Author: Eb Domingo Service: Orthopaedic Surgery Author Type: Physician Type: Operative Report Filed: 12/03/2019 8:39 AM Note Text: ORTHOPAEDIC SURGERY OPERATIVE REPORT Patient Name: Beatris Fletcher Log ID: [id number] Surgery Date: 12/03/2019 Start Time: 7:50 AM [...] Hand AND Upper Extremity Orthopaedic Staff Surgeon [facility] PT EDon 12-03-2019 PT ED HNO ID: [id number] Author: Lorraine (Rn) Per, RN Service: Nursing Author Type: Registered Nurse Type: [...] Signed By: Lorraine Albarado RN In Department: [facility] AMBULATORY SURGERY - ASCE [facility] SURGICAL PATHOLOGYon 020 SURGICAL PATHOLOGY Specimen #: [id number] Submitting Physician: EB DOMINGO FINAL DIAGNOSIS Soft tissue, left wrist, excision - Ganglion cyst. JJ/GHAZALA/que 12/07/2019 Fred Holley M.D. (Electronic Signature) SPECIMEN SUBMITTED A: LEFT WRIST MASS CLINICAL DATA GANGLION OF LEFT WRIST, GANGLION CYST OF WRIST GROSS DESCRIPTION A. Received in formalin are two segments of velasco-yellow fibrous soft tissue aggregating to 2.7 x 1.0 x 0.3 cm. Entirely submitted in cassette A1. MERARY/shreya 12/06/2019 Gross examination performed at [facility], [address] [place], [place] [address] [id number] Date of Report: 12/08/2019 Date of Procedure: 12/03/2019 Date of Receipt: 12/03/2019 Submitted by: EB DOMINGO [facility] Diagnostic interpretation performed at [facility], [address] [place], [place] [id number]. CLIA Number: [id number] [facility] HOSPon 11-16-2019 HOSP Patient:Beatris Fletcher MRN: Height:5' 4[patient reported[(1.626 m) Weight:146 lb (66.225 kg) Outpatient [...] Beatris Fletcher is a 13 year old LHD female returns to clinic with continued complaints [...] lb 2.6 oz) Height: 162.8 cm (5' 4.09) Body mass index is 25.02 kg/m?. General: [...] Upper Extremity Orthopaedic Staff Surgeon Previous Version [facility] Office Visit: UC: bronchitis , pharyngitison 03-20-2017 Documentation of current medications (procedure) Done Invalid Interpretation Code [facility] Work Phone: Fall risk assessment No Invalid Interpretation Code [facility] Work Phone: Tobacco smoking status NHIS Never Invalid Interpretation Code [facility] Work Phone: Tobacco use CPHS Never smoker Invalid Interpretation Code [facility] Work Phone: Office Visit: UC: jovani morejon ton 08-12-2016 Rapid strep test Positive Invalid Interpretation Code [facility] Work Phone: Vital Signs Date Time Vital Sign Value Performing Clinician Facility 11-15-2024 16:10-0400 Body mass index (BMI) [Ratio] 22.14 kg/m2 Leena Gaytan EPIC ANESTHESIA ANALYST.CNM Work Phone: [facility] 11-15-2024 16:10-0400 Body weight 59.42 kg Leena Gaytan EPIC ANESTHESIA ANALYST.CNM Work Phone: [facility] 11-15-2024 16:10-0400 Diastolic blood pressure 76 mm[Hg] Leena Gaytan EPIC ANESTHESIA ANALYST.CNM Work Phone: [facility] 11-15-2024 16:10-0400 Systolic blood pressure 108 mm[Hg] Leena Gaytan EPIC ANESTHESIA ANALYST.CNM Work Phone: [facility] 10-21-2024 17:00-0400 Body mass index (BMI) [Ratio] 23.47 kg/m2 Zhanna Hazel APRN.MARINE SUPERINTENDENT Work Phone: [facility] 10-21-2024 17:00-0400 Body temperature 97 [degF] Zhanna Hazel APRN.MARINE SUPERINTENDENT Work Phone: [facility] 10-21-2024 17:00-0400 Body weight 63 kg Zhanna Hazel APRN.MARINE SUPERINTENDENT Work Phone: [facility] 10-21-2024 17:00-0400 Diastolic blood pressure 68 mm[Hg] Zhanna Hazel APRN.MARINE SUPERINTENDENT Work Phone: [facility] 10-21-2024 17:00-0400 Heart rate 78 /min Zhanna Hazel APRN.MARINE SUPERINTENDENT Work Phone: [facility] 10-21-2024 17:00-0400 Respiratory rate 18 /min Zhanna Hazel APRN.MARINE SUPERINTENDENT Work Phone: [facility] 10-21-2024 17:00-0400 SaO2% (BldA) [Mass fraction] 98 % Zhanna Hazel APRN.MARINE SUPERINTENDENT Work Phone: [facility] 10-21-2024 17:00-0400 Systolic blood pressure 101 mm[Hg] Zhanna Haezl APRN.MARINE SUPERINTENDENT Work Phone: [facility] 08-17-2024 01:23-0400 Body temperature 98.7 [degF] No Primary Care Physician [facility] 08-17-2024 01:23-0400 Diastolic blood pressure 71 mm[Hg] No Primary Care Physician [facility] 08-17-2024 01:23-0400 Heart rate 88 /min No Primary Care Physician [facility] 08-17-2024 01:23-0400 Respiratory rate 16 /min No Primary Care Physician [facility] 08-17-2024 01:23-0400 SaO2% (BldA) [Mass fraction] 98 % No Primary Care Physician [facility] 08-17-2024 01:23-0400 Systolic blood pressure 123 mm[Hg] No Primary Care Physician [facility] 08-16-2024 23:40-0400 Body height 162.56 cm No Primary Care Physician [facility] 08-16-2024 23:40-0400 Body mass index (BMI) [Ratio] 27.7 kg/m2 No Primary Care Physician [facility] 08-16-2024 23:40-0400 Body weight 73.3 kg No Primary Care Physician [facility] 07-28-2024 13:26-0400 Body mass index (BMI) [Ratio] 27.48 kg/m2 Leena Plotts EPIC ANESTHESIA ANALYST.CNM Work Phone: [facility] 07-28-2024 13:26-0400 Body weight 73.75 kg Leena Plotts EPIC ANESTHESIA ANALYST.CNM Work Phone: [facility] 07-28-2024 13:26-0400 Diastolic blood pressure 60 mm[Hg] Leena Plotts EPIC ANESTHESIA ANALYST.CNM Work Phone: [facility] 07-28-2024 13:26-0400 Systolic blood pressure 118 mm[Hg] Leena Plotts EPIC ANESTHESIA ANALYST.CNM Work Phone: [facility] 06-17-2024 13:21-0500 Body mass index (BMI) [Ratio] 27.04 kg/m2 Leena Plotts EPIC ANESTHESIA ANALYST.CNM Work Phone: [facility] 06-17-2024 13:21-0500 Body weight 72.58 kg Leena Plotts EPIC ANESTHESIA ANALYST.CNM Work Phone: [facility] 06-17-2024 13:21-0500 Diastolic blood pressure 64 mm[Hg] Leena Plotts EPIC ANESTHESIA ANALYST.CNM Work Phone: [facility] 06-17-2024 13:21-0500 Systolic blood pressure 96 mm[Hg] Leena Plotts EPIC ANESTHESIA ANALYST.CNM Work Phone: [facility] 05-27-2024 14:00-0500 SaO2% (BldA) [Mass fraction] 99 % No Primary Care Physician [facility] 05-27-2024 08:00-0500 Body temperature 97 [degF] No Primary Care Physician [facility] 05-27-2024 08:00-0500 Diastolic blood pressure 71 mm[Hg] No Primary Care Physician [facility] 05-27-2024 08:00-0500 Heart rate 82 /min No Primary Care Physician [facility] 05-27-2024 08:00-0500 Respiratory rate 16 /min No Primary Care Physician [facility] 05-27-2024 08:00-0500 Systolic blood pressure 110 mm[Hg] No Primary Care Physician [facility] 05-25-2024 11:00-0500 Body mass index (BMI) [Percentile] Per age and sex 94.1 % No Primary Care Physician [facility] 05-25-2024 11:00-0500 Body mass index (BMI) [Ratio] 30.7 kg/m2 No Primary Care Physician [facility] 05-25-2024 11:00-0500 Body weight 81.3 kg No Primary Care Physician [facility] 05-18-2024 14:35-0500 Body mass index (BMI) [Ratio] 29.91 kg/m2 Laxmi Schuler MD Work Phone: [facility] 05-18-2024 14:35-0500 Body weight 80.29 kg Laxmi Schuler MD Work Phone: [facility] 05-18-2024 14:35-0500 Diastolic blood pressure 70 mm[Hg] Laxmi Schuler MD Work Phone: [facility] 05-18-2024 14:35-0500 Systolic blood pressure 110 mm[Hg] Laxmi Schuler MD Work Phone: [facility] 05-11-2024 10:26-0500 Body mass index (BMI) [Ratio] 29.74 kg/m2 Anitra Caldwell APRN.CNM Work Phone: [facility] 05-11-2024 10:26-0500 Body weight 79.83 kg Anitra Caldwell APRN.CNM Work Phone: [facility] 05-11-2024 10:26-0500 Diastolic blood pressure 70 mm[Hg] Anitra Caldwell APRN.CNAlexa Work Phone: [facility] 05-11-2024 10:26-0500 Systolic blood pressure 112 mm[Hg] Anitra Caldwell APRN.CNM Work Phone: [facility] 05-05-2024 14:18-0500 Body mass index (BMI) [Ratio] 29.41 kg/m2 Leena Plotts EPIC ANESTHESIA ANALYST.CNM Work Phone: [facility] 05-05-2024 14:18-0500 Body weight 78.93 kg Leena Plotts EPIC ANESTHESIA ANALYST.CNM Work Phone: [facility] 05-05-2024 14:18-0500 Diastolic blood pressure 70 mm[Hg] Leena Plotts EPIC ANESTHESIA ANALYST.CNM Work Phone: [facility] 05-05-2024 14:18-0500 Systolic blood pressure 102 mm[Hg] Leena Plotts EPIC ANESTHESIA ANALYST.CNM Work Phone: [facility] 04-21-2024 14:04-0500 Body mass index (BMI) [Ratio] 28.22 kg/m2 Leena Plotts EPIC ANESTHESIA ANALYST.CNM Work Phone: [facility] 04-21-2024 14:04-0500 Body weight 75.75 kg Leena Plotts EPIC ANESTHESIA ANALYST.CNM Work Phone: [facility] 04-21-2024 14:04-0500 Diastolic blood pressure 68 mm[Hg] Leena Plotts EPIC ANESTHESIA ANALYST.CNM Work Phone: [facility] 04-21-2024 14:04-0500 Systolic blood pressure 106 mm[Hg] Leena Plotts EPIC ANESTHESIA ANALYST.CNM Work Phone: [facility] 03-29-2024 15:30-0500 Body mass index (BMI) [Ratio] 27.72 kg/m2 Leena Plotts EPIC ANESTHESIA ANALYST.CNM Work Phone: [facility] 03-29-2024 15:30-0500 Body weight 74.39 kg Leena Plotts EPIC ANESTHESIA ANALYST.CNM Work Phone: [facility] 03-29-2024 15:30-0500 Diastolic blood pressure 70 mm[Hg] Leena Plotts EPIC ANESTHESIA ANALYST.CNM Work Phone: [facility] 03-29-2024 15:30-0500 Systolic blood pressure 106 mm[Hg] Leena Plotts EPIC ANESTHESIA ANALYST.CNM Work Phone: [facility] 03-18-2024 12:42-0400 Body mass index (BMI) [Ratio] 27.31 kg/m2 Neeta Athy PA-C Work Phone: [facility] 03-18-2024 12:42-0400 Body temperature 96.91 [degF] Neeta Athy PA-C Work Phone: [facility] 03-18-2024 12:42-0400 Body weight 73.3 kg Neeta Athy PA-C Work Phone: [facility] 03-18-2024 12:42-0400 Diastolic blood pressure 69 mm[Hg] Neeta Athy PA-C Work Phone: [facility] 03-18-2024 12:42-0400 Heart rate 97 /min Neeta Athy PA-C Work Phone: [facility] 03-18-2024 12:42-0400 Respiratory rate 20 /min Neeta Athy PA-C Work Phone: [facility] 03-18-2024 12:42-0400 SaO2% (BldA) [Mass fraction] 99 % Neeta Athy PA-C Work Phone: [facility] 03-18-2024 12:42-0400 Systolic blood pressure 107 mm[Hg] Neeta Athy PA-C Work Phone: [facility] 03-16-2024 15:23-0400 Body mass index (BMI) [Ratio] 27.21 kg/m2 Anitra Caldwell APRN.CNM Work Phone: [facility] 03-16-2024 15:23-0400 Body weight 73.03 kg Anitra Caldwell APRN.CNM Work Phone: [facility] 03-16-2024 15:23-0400 Diastolic blood pressure 68 mm[Hg] Anitra Caldwell APRN.CNM Work Phone: [facility] 03-16-2024 15:23-0400 Systolic blood pressure 118 mm[Hg] Anitra Caldwell EPIC ANESTHESIA ANALYST.CNM Work Phone: [facility] 02-25-2024 14:23-0400 Body mass index (BMI) [Ratio] 26.63 kg/m2 Leena Plotts EPIC ANESTHESIA ANALYST.CNM Work Phone: [facility] 02-25-2024 14:23-0400 Body weight 71.49 kg Leena Gaytan EPIC ANESTHESIA ANALYST.CNM Work Phone: [facility] 02-25-2024 14:23-0400 Diastolic blood pressure 68 mm[Hg] Leena Ledbetterts EPIC ANESTHESIA ANALYST.CNM Work Phone: [facility] 02-25-2024 14:23-0400 Systolic blood pressure 110 mm[Hg] Leena Ledbetterts EPIC ANESTHESIA ANALYST.CNM Work Phone: [facility] 01-23-2024 10:42-0400 Body mass index (BMI) [Ratio] 24.67 kg/m2 Anitra Caldwell EPIC ANESTHESIA ANALYST.CNM Work Phone: [facility] 01-23-2024 10:42-0400 Body weight 66.22 kg Anitra Caldwell EPIC ANESTHESIA ANALYST.CNM Work Phone: [facility] 01-23-2024 10:42-0400 Diastolic blood pressure 64 mm[Hg] Anitra Caldwell EPIC ANESTHESIA ANALYST.CNM Work Phone: [facility] 01-23-2024 10:42-0400 Systolic blood pressure 114 mm[Hg] Anitra Caldwell EPIC ANESTHESIA ANALYST.CNM Work Phone: [facility] 12-23-2023 10:21-0400 Body mass index (BMI) [Ratio] 23.66 kg/m2 Anitra Caldwell EPIC ANESTHESIA ANALYST.CNM Work Phone: [facility] 12-23-2023 10:21-0400 Body weight 63.5 kg Anitra Caldwell EPIC ANESTHESIA ANALYST.CNM Work Phone: [facility] 12-23-2023 10:21-0400 Diastolic blood pressure 68 mm[Hg] Anitra Caldwell EPIC ANESTHESIA ANALYST.CNM Work Phone: [facility] 12-23-2023 10:21-0400 Systolic blood pressure 100 mm[Hg] Anitra Caldwell EPIC ANESTHESIA ANALYST.CNM Work Phone: [facility] 12-12-2023 14:50-0400 Body mass index (BMI) [Ratio] 23.1 kg/m2 Joseph Hsu EPIC ANESTHESIA ANALYST.MARINE SUPERINTENDENT Work Phone: [facility] 12-12-2023 14:50-0400 Body temperature 98.01 [degF] Joseph Hsu EPIC ANESTHESIA ANALYST.MARINE SUPERINTENDENT Work Phone: [facility] 12-12-2023 14:50-0400 Body weight 62 kg Joseph Hsu EPIC ANESTHESIA ANALYST.MARINE SUPERINTENDENT Work Phone: [facility] 12-12-2023 14:50-0400 Diastolic blood pressure 77 mm[Hg] Joseph Hsu EPIC ANESTHESIA ANALYST.MARINE SUPERINTENDENT Work Phone: [facility] 12-12-2023 14:50-0400 Heart rate 102 /min Joseph Hsu EPIC ANESTHESIA ANALYST.MARINE SUPERINTENDENT Work Phone: [facility] 12-12-2023 14:50-0400 Respiratory rate 18 /min Joseph Hsu EPIC ANESTHESIA ANALYST.MARINE SUPERINTENDENT Work Phone: [facility] 12-12-2023 14:50-0400 SaO2% (BldA) [Mass fraction] 99 % Joseph Hsu EPIC ANESTHESIA ANALYST.MARINE SUPERINTENDENT Work Phone: [facility] 12-12-2023 14:50-0400 Systolic blood pressure 116 mm[Hg] Joseph Hsu EPIC ANESTHESIA ANALYST.MARINE SUPERINTENDENT Work Phone: [facility] 11-28-2023 14:18-0400 Body mass index (BMI) [Ratio] 22.71 kg/m2 Anitra Caldwell EPIC ANESTHESIA ANALYST.CNM Work Phone: [facility] 11-28-2023 14:18-0400 Body weight 60.96 kg Anitra Caldwell EPIC ANESTHESIA ANALYST.CNM Work Phone: [facility] 11-28-2023 14:18-0400 Diastolic blood pressure 58 mm[Hg] Anitra Caldwell EPIC ANESTHESIA ANALYST.CNM Work Phone: [facility] 11-28-2023 14:18-0400 Systolic blood pressure 98 mm[Hg] Anitra Caldwell EPIC ANESTHESIA ANALYST.CNM Work Phone: [facility] 11-14-2023 13:06-0400 Body height 163.8 cm Anitra Caldwell EPIC ANESTHESIA ANALYST.CNM Work Phone: [facility] 11-14-2023 13:06-0400 Body mass index (BMI) [Ratio] 22.81 kg/m2 Anitra Caldwell EPIC ANESTHESIA ANALYST.CNM Work Phone: [facility] 11-14-2023 13:06-0400 Body weight 61.24 kg Anitra Caldwell EPIC ANESTHESIA ANALYST.CNM Work Phone: [facility] 11-14-2023 13:06-0400 Diastolic blood pressure 60 mm[Hg] Anitra Caldwell EPIC ANESTHESIA ANALYST.CNM Work Phone: [facility] 11-14-2023 13:06-0400 Systolic blood pressure 98 mm[Hg] Anitra Caldwell EPIC ANESTHESIA ANALYST.CNM Work Phone: [facility] 10-25-2023 12:43-0400 Body temperature 97.7 [degF] Floyd Louise EPIC ANESTHESIA ANALYST.MARINE SUPERINTENDENT Work Phone: [facility] 10-25-2023 12:43-0400 Body weight 59.5 kg Floyd Louise EPIC ANESTHESIA ANALYST.MARINE SUPERINTENDENT Work Phone: [facility] 10-25-2023 12:43-0400 Diastolic blood pressure 72 mm[Hg] Floyd Marileelephyllis EPIC ANESTHESIA ANALYST.MARINE SUPERINTENDENT Work Phone: [facility] 10-25-2023 12:43-0400 Heart rate 98 /min Floyd Louise EPIC ANESTHESIA ANALYST.MARINE SUPERINTENDENT Work Phone: [facility] 10-25-2023 12:43-0400 Respiratory rate 16 /min Floyd Louise EPIC ANESTHESIA ANALYST.MARINE SUPERINTENDENT Work Phone: [facility] 10-25-2023 12:43-0400 SaO2% (BldA) [Mass fraction] 99 % Floyd Louise APRN.MARINE SUPERINTENDENT Work Phone: [facility] 10-25-2023 12:43-0400 Systolic blood pressure 128 mm[Hg] Floyd Louise APRN.MARINE SUPERINTENDENT Work Phone: [facility] 08-27-2023 16:32-0400 Body temperature 98.29 [degF] Zhanna Hazel APRN.MARINE SUPERINTENDENT Work Phone: [facility] 08-27-2023 16:32-0400 Body weight 60.6 kg Zhanna Hazel APRN.MARINE SUPERINTENDENT Work Phone: [facility] 08-27-2023 16:32-0400 Diastolic blood pressure 64 mm[Hg] Zhanna Hazel APRN.MARINE SUPERINTENDENT Work Phone: [facility] 08-27-2023 16:32-0400 Heart rate 92 /min Zhanna Hazel APRN.MARINE SUPERINTENDENT Work Phone: [facility] 08-27-2023 16:32-0400 Respiratory rate 18 /min Zhanna Hazel APRN.MARINE SUPERINTENDENT Work Phone: [facility] 08-27-2023 16:32-0400 SaO2% (BldA) [Mass fraction] 97 % Zhanna Hazel APRN.MARINE SUPERINTENDENT Work Phone: [facility] 08-27-2023 16:32-0400 Systolic blood pressure 106 mm[Hg] Zhanna Hazel APRN.MARINE SUPERINTENDENT Work Phone: [facility] 06-03-2023 06:20-0500 Heart rate 82 /min [facility] 06-03-2023 06:20-0500 Respiratory rate 16 /min [facility] 06-03-2023 06:20-0500 SaO2% (BldA) [Mass fraction] 99 % [facility] 06-03-2023 05:00-0500 Diastolic blood pressure 70 mm[Hg] [facility] 06-03-2023 05:00-0500 Systolic blood pressure 99 mm[Hg] [facility] 06-03-2023 00:42-0500 Body height 160.02 cm [facility] 06-03-2023 00:42-0500 Body mass index (BMI) [Percentile] Per age and sex 82 % [facility] 06-03-2023 00:42-0500 Body mass index (BMI) [Ratio] 25.3 kg/m2 [facility] 06-03-2023 00:42-0500 Body temperature 97.7 [degF] [facility] 06-03-2023 00:42-0500 Body weight 64.9 kg [facility] 04-02-2023 14:35-0500 Body temperature 97.5 [degF] John Crowe MD Work Phone: [facility] 04-02-2023 14:35-0500 Body weight 63.41 kg John Crowe MD Work Phone: [facility] 04-02-2023 14:35-0500 Diastolic blood pressure 74 mm[Hg] John Crowe MD Work Phone: [facility] 04-02-2023 14:35-0500 Heart rate 96 /min John Crowe MD Work Phone: [facility] 04-02-2023 14:35-0500 Respiratory rate 21 /min John Crowe MD Work Phone: [facility] 04-02-2023 14:35-0500 SaO2% (BldA) [Mass fraction] 100 % John Crowe MD Work Phone: [facility] 04-02-2023 14:35-0500 Systolic blood pressure 120 mm[Hg] John Crowe MD Work Phone: [facility] 01-22-2023 18:15-0400 Body temperature 98.29 [degF] Floyd Louise APRN.MARINE SUPERINTENDENT Work Phone: [facility] 01-22-2023 18:15-0400 Body weight 63.41 kg Floyd Louise APRN.MARINE SUPERINTENDENT Work Phone: [facility] 01-22-2023 18:15-0400 Diastolic blood pressure 80 mm[Hg] Floyd Pendlebury EPIC ANESTHESIA ANALYST.MARINE SUPERINTENDENT Work Phone: [facility] 01-22-2023 18:15-0400 Heart rate 71 /min Floyd Pendlebury EPIC ANESTHESIA ANALYST.MARINE SUPERINTENDENT Work Phone: [facility] 01-22-2023 18:15-0400 Respiratory rate 18 /min Floyd Pendlebury EPIC ANESTHESIA ANALYST.MARINE SUPERINTENDENT Work Phone: [facility] 01-22-2023 18:15-0400 SaO2% (BldA) [Mass fraction] 97 % Floyd Pendlebury EPIC ANESTHESIA ANALYST.MARINE SUPERINTENDENT Work Phone: [facility] 01-22-2023 18:15-0400 Systolic blood pressure 110 mm[Hg] Floyd Pendlebury EPIC ANESTHESIA ANALYST.MARINE SUPERINTENDENT Work Phone: [facility] 11-21-2022 13:30-0400 Body temperature 98.71 [degF] Floyd Pendlebury EPIC ANESTHESIA ANALYST.MARINE SUPERINTENDENT Work Phone: [facility] 11-21-2022 13:30-0400 Body weight 61.78 kg Floyd Pendlebury EPIC ANESTHESIA ANALYST.MARINE SUPERINTENDENT Work Phone: [facility] 11-21-2022 13:30-0400 Diastolic blood pressure 62 mm[Hg] Floyd Pendlebury EPIC ANESTHESIA ANALYST.MARINE SUPERINTENDENT Work Phone: [facility] 11-21-2022 13:30-0400 Heart rate 89 /min Floyd Pendlebury EPIC ANESTHESIA ANALYST.MARINE SUPERINTENDENT Work Phone: [facility] 11-21-2022 13:30-0400 Respiratory rate 18 /min Floyd Pendlebury EPIC ANESTHESIA ANALYST.MARINE SUPERINTENDENT Work Phone: [facility] 11-21-2022 13:30-0400 SaO2% (BldA) [Mass fraction] 98 % Floyd Pendlebury EPIC ANESTHESIA ANALYST.MARINE SUPERINTENDENT Work Phone: [facility] 11-21-2022 13:30-0400 Systolic blood pressure 110 mm[Hg] Floyd Pendlebury EPIC ANESTHESIA ANALYST.MARINE SUPERINTENDENT Work Phone: [facility] 04-08-2022 17:25-0500 Body temperature 98.8 [degF] Zhanna Hazel APRN.MARINE SUPERINTENDENT Work Phone: [facility] 04-08-2022 17:25-0500 Body weight 62.41 kg Zhanna Hazel APRN.MARINE SUPERINTENDENT Work Phone: [facility] 04-08-2022 17:25-0500 Diastolic blood pressure 76 mm[Hg] Zhanna Hazel APRN.MARINE SUPERINTENDENT Work Phone: [facility] 04-08-2022 17:25-0500 Heart rate 94 /min Zhanna Hazel APRN.MARINE SUPERINTENDENT Work Phone: [facility] 04-08-2022 17:25-0500 Respiratory rate 18 /min Zhanna Hazel APRN.MARINE SUPERINTENDENT Work Phone: [facility] 04-08-2022 17:25-0500 SaO2% (BldA) [Mass fraction] 99 % Zhanna Hazel APRN.MARINE SUPERINTENDENT Work Phone: [facility] 04-08-2022 17:25-0500 Systolic blood pressure 122 mm[Hg] Zhanna Hazel APRN.MARINE SUPERINTENDENT Work Phone: [facility] 01-01-2022 13:38-0400 Body height 160 cm Pac 2 Work Phone: [facility] 01-01-2022 13:38-0400 Body mass index (BMI) [Percentile] Per age and sex 89.08 % Pac 2 Work Phone: [facility] 01-01-2022 13:38-0400 Body weight 68.04 kg Pac 2 Work Phone: [facility] 01-01-2022 13:38-0400 Respiratory rate 16 /min Pac 2 Work Phone: [facility] 03-20-2017 12:49-0400 BMI (Body Mass Index) 19.08 kg/m2 Javi WEAVER [facility] Work Phone: 03-20-2017 12:49-0400 Body Temperature 98.8 [degF] Javi Julianne WEAVER [facility] Work Phone: 03-20-2017 12:49-0400 BP Diastolic 72 mm[Hg] Javi Whitaker OWEN [facility] Work Phone: 03-20-2017 12:49-0400 BP Systolic 108 mm[Hg] Javi Julianne WEAVER [facility] Work Phone: 03-20-2017 12:49-0400 Height 154.94 cm Javi Whitaker OWEN [facility] Work Phone: 03-20-2017 12:49-0400 Pulse (Heart Rate) 97 /min Javi Julianne WEAVER [facility] Work Phone: 03-20-2017 12:49-0400 Respiratory Rate 14 /min Javi Julianne WEAVER [facility] Work Phone: 03-20-2017 12:49-0400 Weight 45.81 kg Javi Julianne WEAVER [facility] Work Phone: Encounters Encounter Date Encounter Type Care Provider Facility Start: 11-15-2024 End: 11-15-2024 Patient encounter procedure Leena Gaytan APRN.CNM Work Phone: OB/Gynecology Comment on above: Encounter for IUD in sertion (Primary Dx) Start: 11-15-2024 End: 11-15-2024 ambulatory LEENA GAYTAN Facility:[facility] Start: 11-14-2024 End: 11-15-2024 Refill Anitra Caldwell APRN.CNM Work Phone: OB/Gynecology Comment on above: Refill Request Start: 10-21-2024 End: 10-21-2024 Patient encounter procedure Zhanna Hazel APRN.MARINE SUPERINTENDENT Work Phone: [facility] Comment on above: Acute cough (Primary Dx); Rhinosinusitis Start: 10-21-2024 End: 10-21-2024 Subsequent hospital visit by physician Xr [facility] Gisela Work Phone: Radiology Comment on above: Acute cough [R05.1] Start: 10-21-2024 End: 10-21-2024 ambulatory ZHANNA HAZEL Facility:[facility] Start: 09-17-2024 End: 09-17-2024 ambulatory NATALIIA VAIL Facility:[facility] Start: 08-16-2024 End: 08-17-2024 Emergency department patient visit No Primary Care Physician -Emergency Department Work Phone: Start: 08-02-2024 End: 08-02-2024 Refill Leena Khloekevin EPIC ANESTHESIA ANALYST.CNM Work Phone: OB/Gynecology Comment on above: Refill Request Start: 07-28-2024 End: 07-28-2024 ambulatory [facility] Facility:[facility] Start: 07-28-2024 End: 07-28-2024 Patient encounter procedure Leena Ledbetterkevin EPIC ANESTHESIA ANALYST.CNM Work Phone: OB/Gynecology Comment on above: care and examination (Primary Dx); Encounter for IUD insertion; Post depression; Generalized anxiety disorder Start: 06-25-2024 End: 06-25-2024 [facility] Start: 06-25-2024 End: 06-25-2024 Patient encounter procedure Leena Ledbetterts EPIC ANESTHESIA ANALYST.CNM Work Phone: OB/Gynecology Comment on above: Post depressi on (Primary Dx); Generalized anxiety disorder Start: 06-24-2024 End: 06-24-2024 Orders Only Nataliia PAUL Work Phone: Psychiatry Comment on above: Post depressi on (Primary Dx) Appointment Start: 06-17-2024 End: 06-17-2024 [facility] Start: 06-17-2024 End: 06-17-2024 Patient encounter procedure Leena Ledbetterkevin EPIC ANESTHESIA ANALYST.CNM Work Phone: OB/Gynecology Comment on above: 2 weeks f ollow-up (Primary Dx); Lactating mother; First-degree perineal laceration in ; Generalized anxiety disorder Start: 05-26-2024 End: 05-26-2024 ambulatory Laxmi Schuler MD Work Phone: OB/Gynecology Comment on above: Ob Delivery Note Start: 05-25-2024 End: 05-25-2024 Telephone encounter Laxmi Schuler MD Work Phone: OB/Gynecology Comment on above: Care Start: 05-25-2024 End: 05-27-2024 Evaluation and management of inpatient Dr Laxmi Simons [facility] Work Phone: Start: 05-18-2024 End: 05-18-2024 Patient encounter procedure Laxmi Schuler MD Work Phone: OB/Gynecology Comment on above: Encounter for superv ision of normal first in third trimester (Primary Dx); Uterine size-date discrepancy in third trimester; Need for RSV vaccination; 36 weeks gestation of Start: 05-18-2024 End: 05-26-2024 ambulatory Anitra Caldwell APRN.CNM Work Phone: OB/Gynecology Comment on above: Remaining centering dates Start: 05-18-2024 End: 05-26-2024 E-mail encounter from caregiver Anitra Caldwell APRN.CNM Work Phone: OB/Gynecology Start: 05-11-2024 End: 05-11-2024 ambulatory ANITRA CALDWELL Facility:[facility] Start: 05-11-2024 End: 05-11-2024 Patient encounter procedure Anitra Caldwell APRN.CNM Work Phone: OB/Gynecology Comment on above: Supervision of dixie bernard first teen in second trimester (Primary Dx); Heartburn during in third trimester; Rubella non-immune status, antepartum; History of depression; Uterine size-date discrepancy in third trimester Start: 05-05-2024 End: 05-05-2024 Patient encounter procedure Leena Gaytan APRN.CNM Work Phone: OB/Gynecology Comment on above: 34 weeks gestation o f (Primary Dx); Encounter for supervision of normal first in third trimester; Rubella non-immune status, antepartum; Heartburn during in third trimester Start: 05-05-2024 End: 05-05-2024 [facility] Facility:[facility] Start: 04-22-2024 End: 04-22-2024 Telephone encounter Amelia Armstrong RN Obstetrics/Gynecolog y Comment on above: Hunter Guide - O ther (PRAF) Start: 04-21-2024 End: 04-21-2024 [facility] Facility:[facility] Start: 04-21-2024 End: 04-21-2024 Patient encounter procedure Leena Khloekevin CORDERO Work Phone: OB/Gynecology Comment on above: 32 weeks gestation o f (Primary Dx); Encounter for supervision of normal first in third trimester; Low-lying placenta; Heartburn during in third trimester Encounter for ultras ound to check growth (Primary Dx); Suspected placental problem not found; 32 weeks gestation of Start: 03-29-2024 End: 03-29-2024 [facility] Facility:[facility] Start: 03-29-2024 End: 03-29-2024 Patient encounter procedure Leena Khloekevin CORDERO Work Phone: OB/Gynecology Comment on above: 29 weeks gestation o f (Primary Dx); Encounter for supervision of normal first in third trimester; Rubella non-immune status, antepartum; Low-lying placenta Start: 03-25-2024 End: 03-25-2024 Telephone encounter Pramod Romero APRN.CNP Work Phone: OB/Gynecology Comment on above: Results Start: 03-25-2024 End: 03-25-2024 ambulatory PRAMOD ROMERO Facility:[facility] Start: 03-21-2024 End: 03-21-2024 Emergency department patient visit Vlad Jay Facility:[facility] Start: 03-19-2024 End: 03-19-2024 Telephone encounter Anitra Caldwell APRN.CNM Work Phone: OB/Gynecology Start: 03-18-2024 End: 03-18-2024 Telephone encounter Pramod Romero APRN.MARINE SUPERINTENDENT Work Phone: OB/Gynecology Comment on above: Results Start: 03-18-2024 End: 03-18-2024 ambulatory [facility] Facility:[facility] Start: 03-18-2024 End: 03-18-2024 ambulatory [facility] Facility:[facility] Start: 03-18-2024 End: 03-18-2024 Patient encounter procedure Neeta Rey PA-C Work Phone: [facility] Comment on above: Viral URI (Primary D x) Start: 03-16-2024 End: 03-16-2024 [facility] Facility:[facility] Start: 03-16-2024 End: 03-16-2024 Patient encounter procedure Anitra Caldwell APRN.CNAlexa Work Phone: OB/Gynecology Comment on above: Supervision of dixie l first teen in second trimester (Primary Dx); Need for vaccination; Heartburn during in third trimester; Low-lying placenta; Rubella non-immune status, antepartum; Generalized anxiety disorder; History of depression Start: 03-13-2024 End: 03-13-2024 [facility] Facility:[facility] Start: 02-25-2024 End: 02-25-2024 Patient encounter procedure Leena Gaytan APRN.CNAlexa Work Phone: OB/Gynecology Comment on above: 24 weeks gestation o f (Primary Dx); Supervision of normal first teen in second trimester; Generalized anxiety disorder; Rubella non-immune status, antepartum; History of depression; Encounter for care in first trimester of first ; Heartburn during in second trimester Start: 02-25-2024 End: 02-25-2024 ambulatory [facility] Facility:[facility] Start: 02-25-2024 End: 02-26-2024 Telephone encounter Leena Gaytan APRN.CNAlexa Work Phone: OB/Gynecology Comment on above: Centering Start: 02-12-2024 End: 02-12-2024 Refill Anitra Caldwell APRN.CNAlexa Work Phone: OB/Gynecology Comment on above: Refill Request Start: 01-26-2024 End: 01-27-2024 Telephone encounter Amelia Armstrong RN Maternal Medic ine Comment on above: Hunter Guide - O ther (PRAF) ULTRASOUND Start: 01-23-2024 End: 01-23-2024 ambulatory ANITRA CALDWELL Facility:[facility] Start: 01-23-2024 End: 01-23-2024 Patient encounter procedure Anitra Caldwell APRN.CNM Work Phone: OB/Gynecology Comment on above: Supervision of dixie bernard first teen in second trimester (Primary Dx); Nausea and vomiting during ; History of depression; Rubella non-immune status, antepartum; Generalized anxiety disorder; 20 weeks gestation of ; Back pain in Encounter for anatomic survey (Primary Dx); 20 weeks gestation of Start: 01-21-2024 End: 01-21-2024 ambulatory Anitra Caldwell APRN.CNAlexa Work Phone: OB/Gynecology Comment on above: Centering [facility] Start: 01-21-2024 End: 01-21-2024 E-mail encounter from caregiver Anitrasoren Caldwell APRN.CNM Work Phone: OB/Gynecology Start: 12-23-2023 End: 12-23-2023 ambulatory ANITRA CALDWELL Facility:[facility] Start: 12-23-2023 End: 12-23-2023 Patient encounter procedure Anitra Caldwell APRN.CNAlexa Work Phone: OB/Gynecology Comment on above: Supervision of dixie bernard first teen in second trimester (Primary Dx); 15 weeks gestation of ; Nausea and vomiting during ; Generalized anxiety disorder; History of depression; Rubella non-immune status, antepartum Start: 12-12-2023 End: 12-12-2023 ambulatory ANITRA CALDWELL Facility:[facility] Start: 12-12-2023 End: 12-12-2023 Patient encounter procedure Joseph Hsu APRN.CNP Work Phone: [facility] Comment on above: Nausea (Primary Dx) Start: 12-09-2023 Telephone encounter Anitra sigala APRN.CNAlexa Work Phone: OB/Gynecology Comment on above: Nausea & Vomiting Start: 12-05-2023 Telephone encounter Anitra sigala EPIC ANESTHESIA ANALYST.CNM Work Phone: OB/Gynecology Start: 11-28-2023 Telephone encounter Anitra sigala EPIC ANESTHESIA ANALYST.CNM Work Phone: OB/Gynecology Start: 11-28-2023 End: 11-28-2023 Patient encounter procedure [facility] Work Phone: OB/Gynecology Comment on above: Encounter for trisha nahum screening for malformation using ultrasound (Primary Dx); 12 weeks gestation of Supervision of dixie l first teen in second trimester (Primary Dx); Nausea and vomiting during ; Normal first with uncertain date of LMP, antepartum; Generalized anxiety disorder; History of depression; 12 weeks gestation of Start: 11-18-2023 Telephone encounter Cristy Oliver RN Obstetrics/Gynecology Comment on above: PRAF (Initial PRAF) Start: 11-14-2023 End: 11-14-2023 Patient encounter procedure [...] antepartum Start: 11-13-2023 Telephone encounter Anitra sigala EPIC ANESTHESIA ANALYST.CNM Work Phone: OB/Gynecology Comment on above: Appointment Start: 11-11-2023 Telephone encounter Zayda Julio OA Ophthalmology Start: 11-11-2023 End: 11-11-2023 Patient encounter procedure Gretchen Brower OD Work Phone: Ophthalmology Comment on above: Myopia, bilateral (P rimary Dx) Start: 11-05-2023 End: 11-05-2023 Emergency department patient visit Maxi Woodall Facility:[facility] Start: 11-05-2023 End: 11-05-2023 Patient encounter procedure Joseph Hsu EPIC ANESTHESIA ANALYST.MARINE SUPERINTENDENT Work Phone: [facility] Comment on above: Dizziness (Primary D x); Nausea and vomiting, unspecified vomiting type Start: 10-25-2023 End: 10-25-2023 Office outpatient visit 15 minutes Floyd Estrellaphyllis CIFUENTES.MARINE SUPERINTENDENT Work Phone: [facility] Comment on above: Nausea (Primary Dx) Start: 09-02-2023 End: 09-02-2023 Admission to same day surgery center [facility] LABORER PIPELINE Work Phone: [facility] Physical Therapy Comment on above: S/P knee surgery (Pr imary Dx) Start: 09-02-2023 End: 09-02-2023 ambulatory [facility] LABORER PIPELINE Work Phone: [facility] Start: 08-29-2023 End: 08-29-2023 Subsequent hospital visit by physician Mri [employer] [facility] Wstr (I-Stat/1.5t) Work Phone: Radiology Comment on above: S/P knee surgery [Z9 8.890] Start: 08-27-2023 End: 08-27-2023 Patient encounter procedure Zhanna Hazel ESAU.MARINE SUPERINTENDENT Work Phone: [facility] Comment on above: Nausea (Primary Dx) Start: 08-26-2023 End: 08-26-2023 Admission to same day surgery center Zain Kearney PT Work Phone: [facility] Physical Therapy Comment on above: S/P knee surgery (Pr imary Dx) Start: 08-26-2023 End: 08-26-2023 ambulatory Zain Kearney PT Work Phone: [facility] Start: 08-19-2023 End: 08-19-2023 Admission to same day surgery center Zain Kearney PT Work Phone: [facility] Physical Therapy Comment on above: S/P knee surgery Start: 08-19-2023 End: 08-19-2023 ambulatory Zain Kearney PT Work Phone: [facility] Start: 07-31-2023 End: 07-31-2023 Patient encounter procedure Mayda Solares DO Work Phone: Orthopaedics Comment on above: S/P knee surgery (Pr imary Dx); Loose body in knee, left knee Start: 07-31-2023 End: 07-31-2023 Subsequent hospital visit by physician Xr [facility] Gisela Juan Work Phone: Radiology Comment on above: Chronic pain of left knee [M25.562, G89.29] Start: 07-24-2023 Orders Only Mayda Solares DO Work Phone: Orthopaedics Comment on above: Chronic pain of left knee (Primary Dx) Start: 06-03-2023 End: 06-03-2023 Emergency department patient visit [facility] Work Phone: Start: 04-18-2023 Emergency department patient visit Facility:[facility] Start: 04-02-2023 End: 04-02-2023 Patient encounter procedure John Crowe MD Work Phone: [facility] Comment on above: Sore throat (Primary Dx) Start: 02-18-2023 End: 02-18-2023 Subsequent hospital visit by physician Xr [facility] Work Phone: Radiology Comment on above: Pain [R52] Start: 01-22-2023 End: 01-22-2023 Office outpatient visit 25 minutes Floyd Louise APRN.MARINE SUPERINTENDENT Work Phone: [facility] Comment on above: Rash (Primary Dx) Start: 11-21-2022 End: 11-21-2022 Office outpatient visit 15 minutes Floyd Louise EPIC ANESTHESIA ANALYST.MARINE SUPERINTENDENT Work Phone: [facility] Comment on above: Sore throat (Primary Dx); URI, acute Start: 08-02-2022 End: 08-02-2022 Patient encounter procedure Gretchen Brower OD Work Phone: Ophthalmology Comment on above: Myopia, bilateral (P rimary Dx) Start: 04-08-2022 End: 04-08-2022 Patient encounter procedure Zhanna Hazel MARINE SUPERINTENDENT Work Phone: [facility] Comment on above: Cat bite, initial en counter (Primary Dx) Start: 03-14-2022 End: 03-14-2022 Patient encounter procedure Mayda Solares DO Work Phone: Orthopaedics Comment on above: S/P knee surgery (Pr imary Dx) Start: 03-06-2022 End: 03-06-2022 ambulatory June Lemon PT [facility] Start: 03-06-2022 End: 03-06-2022 [facility] Comment on above: Patellar dislocation , left, subsequent encounter (Primary Dx); S/P orthopedic surgery, follow-up exam Start: 02-27-2022 End: 02-27-2022 ambulatory June Lemon PT [facility] [place] Start: 02-27-2022 End: 02-27-2022 Follow-up encounter June Lemon PT [facility] Physical Therapy Comment on above: Patellar dislocation , left, subsequent encounter (Primary Dx); S/P orthopedic surgery, follow-up exam Start: 02-25-2022 End: 02-25-2022 ambulatory Raysa Lopezpaulo LABORER PIPELINE Work Phone: [facility] Start: 02-25-2022 End: 02-25-2022 Follow-up encounter Raysaglenda Lopezpaulo LABORER PIPELINE Work Phone: [facility] Physical Therapy Comment on above: Patellar dislocation , left, subsequent encounter (Primary Dx); S/P orthopedic surgery, follow-up exam Start: 02-22-2022 End: 02-22-2022 ambulatory June Lemon PT [facility] Start: 02-22-2022 End: 02-22-2022 Follow-up encounter June Lemon PT [facility] Physical Therapy Comment on above: Patellar dislocation , left, subsequent encounter (Primary Dx); S/P orthopedic surgery, follow-up exam Start: 02-04-2022 End: 02-04-2022 ambulatory June Lemon PT [facility] [place] Start: 02-04-2022 End: 02-04-2022 Follow-up encounter June Staton PT [facility] Physical Therapy Comment on above: Patellar dislocation , left, subsequent encounter (Primary Dx); S/P orthopedic surgery, follow-up exam Start: 02-01-2022 End: 02-01-2022 Patient encounter procedure Mayda Islasemerychloe DO Work Phone: Orthopaedics Comment on above: S/P knee surgery (Pr imary Dx); Dislocation of left patella, subsequent encounter; Patellar instability of left knee Start: 01-23-2022 Telephone encounter Mayda Shaikh Duncanchloe DO Work Phone: Orthopaedics Comment on above: Patient Question Start: 01-01-2022 End: 01-01-2022 [facility] Work Phone: [facility] Start: 01-01-2022 End: 01-01-2022 ambulatory Pac 2 Work Phone: Pre Anesthesia Comment on above: Pre-op evaluation (P rimary Dx); Dislocation of left patella, subsequent encounter Start: 01-01-2022 End: 01-01-2022 Preprocedural examination done Pac 2 Work Phone: Pre Anesthesia Start: 12-19-2021 Patient encounter status Manny Arteaga MD Work Phone: [employer] [facility] [employer] [place] Start: 12-19-2021 Telephone encounter Manny willson MD Work Phone: [employer] [facility] [place] Comment on above: Schedule Surgery Start: 12-10-2021 [...] with patient Manny Arteaga MD Work Phone: [facility] Start: 12-06-2021 Telephone encounter Mayda Solares DO Work Phone: Orthopaedics Comment on above: Patient Question Start: 11-07-2021 End: 11-07-2021 Patient encounter procedure Mayda Solares DO Work Phone: Orthopaedics Comment on above: Chronic pain of left knee (Primary Dx); Patellar instability of left knee; 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 Start: 10-23-2021 Telephone encounter Mayda Solares DO Work Phone: Orthopaedics Comment on above: Appointment Start: 10-19-2021 End: 10-19-2021 ambulatory Mayda Solares DO Work Phone: Orthopaedics Comment on above: Chronic pain of left knee (Primary Dx); 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; Patellar instability of left knee Start: 10-19-2021 End: 10-19-2021 Telemedicine consultation with patient Mayda Solares DO Work Phone: [facility] Start: 10-16-2021 End: 10-16-2021 Subsequent hospital visit by physician [facility] W[facility] (I-Stat/1.5t) Work Phone: Radiology Comment on above: Chronic pain of left knee [M25.562, G89.29] Start: 09-27-2021 Telephone encounter Mayda Solares DO Work Phone: Orthopaedics Comment on above: DEE galindo Start: 09-26-2021 End: 09-26-2021 Patient encounter procedure Mayda Solares DO Work Phone: Orthopaedics Comment on above: Chronic pain of left knee (Primary Dx); 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 Start: 09-26-2021 End: 09-26-2021 Subsequent hospital visit by physician [facility] Work Phone: Radiology Comment on above: Chronic pain of left knee [M25.562, G89.29] Procedures Date Procedure Procedure Detail Performing Clinician Start: 10-21-2024 Radiologic exam ches t 2 views Zhanna Hazel APRN.MARINE SUPERINTENDENT Work Phone: Start: 08-17-2024 Computed tomography of abdomen and pelvis with intravenous contrast No Primary Care Physician Start: 05-18-2024 RSV VACCINE, BIVALEN T (ABRYSVO) Laxmi Schuler MD Work Phone: Start: 05-18-2024 Urnls dip stick/tabl et rgnt non-auto w/o micrscp Laxmi Schuler MD Work Phone: Start: 05-11-2024 Urnls dip stick/tabl et rgnt non-auto w/o micrscp Anitra Caldwell APRN.CNM Work Phone: Start: 04-21-2024 Us preg uterus after 1st trimest 1/1st gestation Anitra Caldwell APRN.CNM Work Phone: Start: 03-18-2024 STREP A MOLECULAR (POC) Neeta Rey PA-C Work Phone: Start: 01-23-2024 Us preg uterus after 1st trimest 1/ gestation Anitra Caldwell APRN.CNM Work Phone: Start: 11-28-2023 Us nuchal translucency 1st gestation Anitra Caldwell APRN.CNM Work Phone: Start: 11-14-2023 BACTERIAL VAGINOSIS NAAT Anitra Caldwell APRN.CNM Work Phone: Start: 11-14-2023 Iadna chlamydia trac homatis amplified probe tq Anitra Caldwell APRN.CNM Work Phone: Start: 11-14-2023 Us uterus l imited 1/> fetuses Anitra Caldwell APRN.CNM Work Phone: Start: 08-29-2023 Mri any jt lower ext rem w/o contrast matrl Mayda Solares DO Work Phone: Start: 08-19-2023 End: 12-02-2023 History of operative procedure on knee S/P knee surgery Zain Kearney PT Work Phone: Start: 07-31-2023 Radiologic exam knee complete 4/more views Mayda Solares DO Work Phone: Start: 06-03-2023 Viral antigen assay Start: 04-02-2023 STREP A MOLECULAR (POC) John Crowe MD Work Phone: Start: 02-18-2023 End: 02-18-2023 Radex foot complete minimum 3 views Zhanna Hazel APRN.MARINE SUPERINTENDENT Work Phone: Start: 11-21-2022 STREP A MOLECULAR (POC) Zhanna Hazel APRN.MARINE SUPERINTENDENT Work Phone: Start: 10-16-2021 Mri any jt [...] procedure on knee S/P knee surgery Raysa Bennett LABORER PIPELINE Work Phone: Plan of Treatment Date Care Activity Detail Author Start: 08-01-2025 End: 08-01-2025 Patient encounter procedure 08/01/2025 11:30 AM EDT Office Visit OB/Gynecology [address] [place] [address] Leena Gaytan APRN.CNM [address] [place] [address] Annual OB/Gynecology Comment on above: Annual Start: 01-17-2025 Influenza vaccination Influenza Vaccine (Season Ended) [facility] Start: 12-13-2024 End: 12-13-2024 Patient encounter procedure 12/13/2024 1:45 PM EDT Office Visit OB/Gynecology [address] [place] [address] Leena Gaytan APRN.CNM [address] [place] [address] IUD check up OB/Gynecology Comment on above: IUD check up Start: 12-09-2024 End: 12-09-2024 [facility] 12/09/2024 10:00 AM EDT [facility] Psychiatry [address] [place] [address] Molly Husain APRN.[facility] [address] [place] [address] MDD (major depressive disorder), recurrent episode, moderate (HCC) [F33.1] Psychiatry Comment on above: MDD (major depressive disorder), recurre nt episode, moderate (HCC) [F33.1] Start: 11-15-2024 End: 11-15-2024 Patient encounter procedure 11/15/2024 4:00 PM EDT Office Visit OB/Gynecology [address] [place] [address] Leena Gaytan APRN.CNAlexa [address] [place] [address] getting a copper iud OB/Gynecology Comment on above: getting a copper iud Start: 11-13-2024 GC (Gonorrhea) Screening (18-24) GC (Gonorrhea) Screening (18-24) [facility] Start: 11-13-2024 Screening for Chlamydia trachomatis Chlamydia Screening (18-) [facility] Start: 11-11-2024 End: 11-11-2024 Patient encounter procedure 11/11/2024 12:30 PM EDT Office Visit [facility] [address] [place] [address] Gretchen Brower, OD [address] [place] [address] Annual Eye Exam Ophthalmology Comment on above: Annual Eye Exam Start: 08-17-2024 [facility] Start: 08-11-2024 End: 08-11-2024 Patient encounter procedure 08/11/2024 2:45 PM EDT Office Visit OB/Gynecology [address] [place] [address] Pramod Romero APRN.MARINE SUPERINTENDENT [address] [place] [address] IUD Insert OB/Gynecology Comment on above: IUD Insert Start: 07-29-2024 End: 07-29-2024 Patient encounter procedure 07/29/2024 3:30 PM EDT Office Visit OB/Gynecology [address] [place] [address] Leena Gaytan APRN.CNM [address] [place] [address] IUD Insert OB/Gynecology Comment on above: IUD Insert Start: 07-19-2024 End: 07-19-2024 Patient encounter procedure 07/19/2024 4:00 PM EST Office Visit OB/Gynecology [address] [place] [address] Leena Gaytan APRN.CNM [address] [place] [address] checkup OB/Gynecology Comment on above: checkup Start: 06-25-2024 End: 06-25-2024 Patient encounter procedure 06/25/2024 9:45 AM EST Office Visit OB/Gynecology [address] [place] [address] Leena Gaytan APRN.[facility] [address] [place] [address] PP f/u depression OB/Gynecology Comment on above: PP f/u depression Start: 05-27-2024 Patient discharge [facility] Start: 05-25-2024 Documentation procedure [facility] Start: 05-25-2024 Administration of medication [facility] Start: 05-25-2024 Application of ice collar, cap or bag [facility] Start: 05-25-2024 Catheterization of vein [facility] Start: 05-25-2024 Introduction of urinary catheter [facility] Start: 05-25-2024 Measuring intake and output [facility] Start: 05-25-2024 Notification of physician [facility] Start: 05-25-2024 Procedure discontinued [facility] Start: 05-25-2024 Provision of activity privileges [facility] Start: 05-25-2024 Vital signs measurements [facility] Start: 05-25-2024 End: 05-25-2024 [facility] Start: 05-25-2024 Admission procedure [facility] Start: 05-25-2024 Consultation [facility] Start: 05-18-2024 End: 05-18-2024 Patient encounter procedure 05/18/2024 2:50 PM EST Routine Office Visit OB/Gynecology [address] [place] [address] Laxmi Coleman MD [address] [place] [address] OB OB/Gynecology Comment on above: OB Start: 05-11-2024 End: 05-11-2024 Patient encounter procedure 05/11/2024 10:30 AM EST Routine Office Visit OB/Gynecology [address] [place] [address] Anitra Caldwell APRN.CNM [address] [place] [address] OB per gilbert OB/Gynecology Comment on above: OB per gilbert Start: 05-05-2024 End: 05-05-2024 Patient encounter procedure 05/05/2024 2:30 PM EST Office Visit OB/Gynecology [address] [place] [address] Leena Gaytan APRN.CNM [address] [place] [address] Centering OB/Gynecology Comment on above: Centering Start: 04-21-2024 End: 04-21-2024 Patient encounter procedure OB/Gynecology Comment on above: Centering placenta location Start: 04-16-2024 RSV Vaccine (1 - Risk 1-dose series) RSV Vaccine (1 - Risk 1-dose series) [facility] Start: 04-14-2024 End: 04-14-2024 Patient encounter procedure 04/14/2024 8:00 AM EST Routine Office Visit OB/Gynecology [address] [place] [address] Leena Gaytan APRN.CNM [address] [place] [address] OB OB/Gynecology Comment on above: OB Start: 03-29-2024 End: 03-29-2024 Patient encounter procedure 03/29/2024 3:15 PM EST Routine Office Visit OB/Gynecology [address] [place] [address] Leena Gaytan APRN.CNAlexa [address] [place] [address] OB OB/Gynecology Comment on above: OB Start: 03-27-2024 End: 06-26-2024 CBC W Auto Differential panel - Blood COMPLETE BLOOD COUNT AND DIFFERENTIAL Lab Routine 24 weeks gestation of Supervision of normal first teen in second trimester Generalized anxiety disorder Rubella non-immune status, antepartum History of depression Expected: 03/27/2024 (Approximate), Expires: 06/26/2024 [facility] Work Phone: Comment on above: Expected: 03/27/2024 (Approximate), Expi res: 06/26/2024 Start: 03-27-2024 End: 06-26-2024 GESTATIONAL GLUCOSE SCREEN, 1-HOUR, 50 GRAM, NON-FASTING GESTATIONAL GLUCOSE SCREEN, 1-HOUR, 50 GRAM, NON-FASTING Lab Routine 24 weeks gestation of Supervision of normal first teen in second trimester Generalized anxiety disorder Rubella non-immune status, antepartum History of depression Expected: 03/27/2024 (Approximate), Expires: 06/26/2024 [facility] Comment on above: Expected: 03/27/2024 (Approximate), Expi res: 06/26/2024 Start: 03-27-2024 End: 06-26-2024 SYPHILIS TREPONEMAL W/REFLEX SYPHILIS TREPONEMAL W/REFLEX Lab Routine 24 weeks gestation of Supervision of normal first teen in second trimester Generalized anxiety disorder Rubella non-immune status, antepartum History of depression Expected: 03/27/2024 (Approximate), Expires: 06/26/2024 [facility] Comment on above: Expected: 03/27/2024 (Approximate), Expi res: 06/26/2024 Start: 03-25-2024 End: 03-25-2024 ambulatory 03/25/2024 12:00 PM EST Results Only [place] [facility] Draw Station [address] [place] [address] GEST GLUC LYSSA, 3-HR, 100 GM, FASTING [place] [facility] Draw Station Comment on above: GEST GLUC LYSSA, 3-HR, 100 GM, FASTING Start: 03-19-2024 End: 03-19-2024 ambulatory 03/19/2024 10:00 AM EDT Results Only [facility] Draw Station [address] [facility] [place] [address] GEST GLUC LYSSA, 3-HR, 100 GM, FASTING [place] [facility] Draw Station Comment on above: GEST GLUC LYSSA, 3-HR, 100 GM, FASTING Start: 03-18-2024 End: 06-17-2024 GEST GLUC LYSSA, 3-HR, 100 GM, FASTING GEST GLUC LYSSA, 3-HR, 100 GM, FASTING Lab Routine Elevated glucose tolerance test Expected: 03/18/2024, Expires: 06/17/2024 [facility] Work Phone: Comment on above: Expected: 03/18/2024, Expires: Start: 03-17-2024 End: 03-17-2024 Patient encounter procedure 03/17/2024 2:30 PM EDT Office Visit OB/Gynecology [address] [place] [address] Leena Gaytan APRN.CN [address] [place] [address] Centering OB/Gynecology Comment on above: Centering Start: 02-18-2024 End: 02-18-2024 Patient encounter procedure 02/18/2024 2:30 PM EDT Office Visit OB/Gynecology [address] [place] [address] Anitra Caldwell APRN.CNM [address] [place] [address] Centering OB/Gynecology Comment on above: Centering Start: 01-23-2024 End: 01-23-2024 Patient encounter procedure OB/Gynecology Comment on above: OB anatomy Start: 01-18-2024 Covid-19 Vaccine ( season) Covid-19 Vaccine ( season) [facility] Start: 01-18-2024 Covid-19 Vaccine ( season) Covid-19 Vaccine () [facility] Start: 01-18-2024 Influenza vaccination [facility] Start: 12-23-2023 End: 03-23-2024 ALPHA FETOPRO MATERNAL [facility] Work Phone: Comment on above: Expected: 12/23/2023, Expires: Start: 12-23-2023 End: 12-23-2023 Patient encounter procedure 12/23/2023 10:30 AM EDT Routine Office Visit OB/Gynecology [address] [place], [place] [id number] Anitra Caldwell APRN.CN [address] [place] [address] OB OB/Gynecology Comment on above: OB Start: 12-12-2023 End: 12-12-2023 Patient encounter procedure 12/12/2023 2:20 PM EDT Routine Office Visit OB/Gynecology [address] [place] [address] Tristan Hazel MD [address] [place] [address] new OB OB/Gynecology Comment on above: new OB Start: 11-28-2023 End: 02-27-2024 Bacteria identified in Urine by Culture URINE CULTURE Microbiology Routine Supervision of normal first teen in second trimester Expected: 11/28/2023, Expires: 02/27/2024 [facility] Comment on above: Expected: 11/28/2023, Expires: Start: 11-28-2023 End: 02-27-2024 CARRIER SCREEN, STANDARD [facility] Comment on above: Expected: 11/28/2023, Expires: 4 Start: 11-28-2023 End: 02-27-2024 Chromosome 21 trisomy [Presence] in Blood or Tissue by Cytogenetics [facility] Work Phone: Comment on above: Expected: 11/28/2023, Expires: 4 Start: 11-28-2023 End: 11-27-2024 OBSTETRIC ULTRASOUND WHI OBSTETRIC ULTRASOUND WHI Anc Imaging Routine Supervision of normal first teen in second trimester Expected: 11/28/2023, Expires: 11/27/2024 [facility] Comment on above: Expected: 11/28/2023, Expires: 5 Start: 11-28-2023 End: 11-28-2023 Patient encounter procedure OB/Gynecology Comment on above: [place] OB Start: 11-14-2023 End: 02-13-2024 Bacteria identified in Urine by Culture URINE CULTURE Microbiology Routine Encounter for care in first trimester of first Expected: 11/14/2023, Expires: 02/13/2024 [facility] Comment on above: Expected: 11/14/2023, Expires: Start: 11-14-2023 End: 02-13-2024 CBC panel - Blood by Automated count COMPLETE BLOOD COUNT Lab Routine Encounter for care in first trimester of first Expected: 11/14/2023, Expires: 02/13/2024 [facility] Work Phone: Comment on above: Expected: 11/14/2023, Expires: Start: 11-14-2023 End: 02-13-2024 Hemoglobin A1c in Blood HEMOGLOBIN A1C Lab Routine Encounter for care in first trimester of first Expected: 11/14/2023, Expires: 02/13/2024 [facility] Comment on above: Expected: 11/14/2023, Expires: Start: 11-14-2023 End: 02-13-2024 HEMOGLOBIN EVALUATION CASCADE HEMOGLOBIN EVALUATION CASCADE Lab Routine Encounter for care in first trimester of first Expected: 11/14/2023, Expires: 02/13/2024 [facility] Comment on above: Expected: 11/14/2023, Expires: Start: 11-14-2023 End: 02-13-2024 Hepatitis B virus surface Ag [Presence] in Serum HEPATITIS B SURFACE ANTIGEN Lab Routine Encounter for care in first trimester of first Expected: 11/14/2023, Expires: 02/13/2024 [facility] Comment on above: Expected: 11/14/2023, Expires: Start: 11-14-2023 End: 02-13-2024 Hepatitis C virus Ab [Presence] in Serum HEPATITIS C ANTIBODY IA WITH CONFIRMATION Lab Routine Encounter for care in first trimester of first Expected: 11/14/2023, Expires: 02/13/2024 [facility] Comment on above: Expected: 11/14/2023, Expires: Start: 11-14-2023 End: 02-13-2024 HIV 1+2 Ab [Presence] in Serum or Plasma by Immunoassay HIV 1/2 COMBO WITH REFLEX TO DIFFERENTIATION Lab Routine Encounter for care in first trimester of first Expected: 11/14/2023, Expires: 02/13/2024 [facility] Comment on above: Expected: 11/14/2023, Expires: Start: 11-14-2023 End: 02-13-2024 RUBELLA IGG ANTIBODY RUBELLA IGG ANTIBODY Lab Routine Encounter for care in first trimester of first Expected: 11/14/2023, Expires: 02/13/2024 [facility] Comment on above: Expected: 11/14/2023, Expires: Start: 11-14-2023 End: 02-13-2024 SYPHILIS TOTAL W/REFLEX SYPHILIS TOTAL W/REFLEX Lab Routine Encounter for care in first trimester of first Expected: 11/14/2023, Expires: 02/13/2024 [facility] Comment on above: Expected: 11/14/2023, Expires: Start: 11-14-2023 End: 02-13-2024 TYPE + SCREEN TYPE + SCREEN Blood Bank Routine Encounter for care in first trimester of first Expected: 11/14/2023, Expires: 02/13/2024 [facility] Comment on above: Expected: 11/14/2023, Expires: Start: 11-14-2023 End: 11-14-2023 Patient encounter procedure 11/14/2023 1:00 PM EDT Initial Office Visit OB/Gynecology [address] [place] [address] Anitra Caldwell APRN.CN [address] [place] [address] new OB OB/Gynecology Comment on above: new OB Start: 11-11-2023 End: 11-11-2023 Patient encounter procedure 11/11/2023 10:30 AM EDT Office Visit [facility] [address] [place] [address] Gretchen Brower, OD [address] [place] [address] 1 YR complete with cl eval Ophthalmology Comment on above: 1 YR complete with cl eval Start: 06-03-2023 [facility] Start: 06-03-2023 Referral to service [facility] Start: 06-03-2023 Suicide precautions [facility] Start: 05-19-2023 Behavioral Health Screening Behavioral Health Screening [facility] Start: 05-19-2023 Depression Assessment Depression Assessment [facility] Start: 01-17-2023 Covid-19 Vaccine ( season) Covid-19 Vaccine ( season) [facility] Start: 01-17-2023 Influenza vaccination [facility] Start: 2022 CHLAMYDIA SCREENING (18-24) CHLAMYDIA SCREENING (18-24) [facility] Start: 2022 Depression Screening Depression Screening [facility] Start: 2022 GC (GONORRHEA) SCREENING (18-24) GC (GONORRHEA) SCREENING (18-24) [facility] Start: 2022 HEPATITIS C SCREENING HEPATITIS C SCREENING [facility] Start: 2022 Hepatitis C screening Hepatitis C Screening [facility] Start: 2022 HIV SCREENING HIV SCREENING [facility] Start: 2022 HIV screening HIV Screening [facility] Start: 2022 Screening for Chlamydia trachomatis Chlamydia Screening (18-24) [facility] Start: 05-19-2022 DEPRESSION ASSESSMENT DEPRESSION ASSESSMENT [facility] Start: 01-17-2022 Influenza vaccination [facility] Start: 2020 Meningococcal B Vaccine (1 of 2 - Standard) Meningococcal B Vaccine (1 of 2 - Standard) [facility] Start: 2020 Meningococcal B Vaccine: Consider Based On Risk (1 of 2 - Patient Seeks Protection) Meningococcal B Vaccine: Consider Based On Risk (1 of 2 - Patient Seeks Protection) [facility] Start: 2020 MENINGOCOCCAL B: Consider based on risk (1 of 2 - Patient Seeks Protection) MENINGOCOCCAL B: Consider based on risk (1 of 2 - Patient Seeks Protection) [facility] Start: 2020 MENINGOCOCCAL CONJUGATE (1 - 2-dose series) MENINGOCOCCAL CONJUGATE (1 - 2-dose series) [facility] Start: 2020 Meningococcal Conjugate Vaccine (1 - 2-dose series) Meningococcal Conjugate Vaccine (1 - 2-dose series) [facility] Start: 08-11-2019 CHLAMYDIA SCREENING (<18) CHLAMYDIA SCREENING (<18) [facility] Start: 08-11-2019 GC (GONORRHEA) SCREENING (<18) GC (GONORRHEA) SCREENING (<18) [facility] Start: 08-11-2019 HPV Vaccine (1 - 3-dose series) HPV Vaccine (1 - 3-dose series) [facility] Start: 2018 PEDS TO ADULT TRANSITION ANNUAL ASSESSMENT PEDS TO ADULT TRANSITION ANNUAL ASSESSMENT [facility] Start: 03-20-2017 End: 03-20-2017 Appointment Appointment [facility] Work Phone: Start: 2016 Adult depression screening assessment DEPRESSION SCREENING [facility] Start: 2016 PEDS TO ADULT TRANSITION INITIAL DISCUSSION PEDS TO ADULT TRANSITION INITIAL DISCUSSION [facility] Start: 08-11-2015 HPV VACCINE (1 - 2-dose series) HPV VACCINE (1 - 2-dose series) [facility] Start: 2014 MENINGOCOCCAL B: Consider based on risk (1 of 2 - Risk Bexsero 2-dose series) MENINGOCOCCAL B: Consider based on risk (1 of 2 - Risk Bexsero 2-dose series) [facility] Start: 2013 HPV VACCINE (1 - 2-dose series) HPV VACCINE (1 - 2-dose series) [facility] Start: 2009 COVID-19 VACCINE (#1) COVID-19 VACCINE (#1) [facility] Start: 2008 POLIO (3 of 3 - 4-dose series) POLIO (3 of 3 - 4-dose series) [facility] Start: 02-10-2005 COVID-19 VACCINE (#1) COVID-19 VACCINE (#1) [facility] Bacteria identified in Urine by Culture URINE CULTURE Microbiology Routine Supervision of normal first teen in second trimester 15 weeks gestation of Nausea and vomiting during Generalized anxiety disorder History of depression 12/23/2023 11:05 AM EDT [facility] COVID & INFLUENZA A/ B & RSV PCR, ROUTINE COVID & INFLUENZA A/B & RSV PCR, ROUTINE Microbiology Routine Viral URI Ordered: 03/18/2024 [facility] Work Phone: Comment on above: Ordered: 03/18/2024 Insertion intrauteri ne device iud INSERT INTRAUTERINE DEVICE Procedures Routine Encounter for IUD insertion Ordered: 07/28/2024 [facility] Work Phone: Comment on above: Ordered: 07/28/2024 End: 08-29-2024 MR Knee - left WO contrast MRI KNEE WO IVCON LEFT Radiology Routine S/P knee surgery Loose body in knee, left knee 1 Occurrences starting 07/31/2023 until 08/29/2024 [facility] Work Phone: Comment on above: 1 Occurrences starting 07/31/2023 until 08/29/2024 Patient Education [facility] Work Phone: Patient referral [facility] Work Phone: ROUTINE, GR OUP B STREP PCR ROUTINE, GROUP B STREP PCR Microbiology Routine Encounter for supervision of normal first in third trimester 36 weeks gestation of 05/18/2024 2:58 PM EST [facility] Work Phone: UA DIP,URINE HCG (POC) UA DIP,UR INE HCG (POC) Lab Routine Encounter for IUD insertion Ordered: 11/15/2024 [facility] Work Phone: Comment on above: Ordered: 11/15/2024 URINE OB DIP B/O URINE OB DIP B/ O Lab Routine Supervision of normal first teen in second trimester Nausea and vomiting during Normal first with uncertain date of LMP, antepartum Generalized anxiety disorder History of depression 12 weeks gestation of Ordered: 11/28/2023 [facility] Comment on above: Ordered: 11/28/2023 URINE OB DIP B/O URINE OB DIP B/ O Lab Routine 34 weeks gestation of Encounter for supervision of normal first in third trimester Rubella non-immune status, antepartum Heartburn during in third trimester Ordered: 05/05/2024 [facility] Work Phone: Comment on above: Ordered: 05/05/2024 End: 08-22-2024 XR Knee - left 4 Views XR KNEE GENERAL 4V AP BOTH/PA BOTH/LAT/MERC LEFT Radiology Routine Chronic pain of left knee 1 Occurrences starting 07/24/2023 until 08/22/2024 [facility] Work Phone: Comment on above: 1 Occurrences starting 07/24/2023 until 08/22/2024 [facility] Immunizations Immunization Date Immunization Notes Care Provider Fa [facility] 05-26-2024 measles, mumps and rubella virus vaccine No Primary Care Physician [facility] 05-18-2024 respiratory syncytia l virus (RSV) vaccine, bivalent (ABRYSVO) Laxmi Lyssa Schuler MD Work Phone: [facility] 03-16-2024 tetanus toxoid, redu dagoberto diphtheria toxoid, and acellular pertussis vaccine, adsorbed Neeta Rey PA-C Work Phone: [facility] 04-03-2020 tetanus immune globulin Dipika Hazel APRN.MARINE SUPERINTENDENT Work Phone: [facility] 04-03-2020 tetanus toxoid, redu dagoberto diphtheria toxoid, and acellular pertussis vaccine, adsorbed Zhanna Hazel APRN.MARINE SUPERINTENDENT Work Phone: [facility] 06-10-2017 influenza virus vaccine, unspecified formulation John Crowe MD Work Phone: [facility] 02-04-2005 diphtheria, tetanus toxoids and acellular pertussis vaccine [employer] Work Phone: [facility] Work Phone: 02-04-2005 haemophilus influenz ae type b conjugate and Hepatitis B vaccine [employer] Work Phone: [facility] Work Phone: 02-04-2005 pneumococcal conjuga te vaccine, 7 valent [employer] Work Phone: [facility] Work Phone: 02-04-2005 poliovirus vaccine, inactivated [employer] Work Phone: [facility] Work Phone: 2004 diphtheria, tetanus toxoids and acellular pertussis vaccine [employer] Work Phone: [facility] Work Phone: 2004 haemophilus influenz ae type b conjugate and Hepatitis B vaccine [employer] Work Phone: [facility] 2004 haemophilus influenz ae type b vaccine, HbOC conjugate [employer] Work Phone: [facility] Work Phone: 2004 hepatitis B vaccine, pediatric or pediatric/adolescent dosage [employer] Work Phone: [facility] Work Phone: 2004 pneumococcal conjuga te vaccine, 7 valent [employer] Work Phone: [facility] Work Phone: 2004 poliovirus vaccine, inactivated [employer] Work Phone: [facility] Work Phone: Payers Date Payer Category Payer Private Health Insurance [id number] 2023 Self-pay [id number] 2023 Medicaid [id number] 2023 Private Health Insurance [id number] 2022 Private Health Insurance [id number] 2022 Unknown [id number] 2021 Unknown [employer]O K[employer]E [employer] PPO [id number] 2021-Present [phone] [address] [place] [address] PPO [id number] 2021 Unknown [employer]O BLUE ACCE SS PPO [id number] 2021-Present [phone] [address] [place] [id number] PPO [id number] [employer] ( and others) PRIME [id number] Unknown ANTHEM [id number] Unknown [employer] [id number] Unknown [id number] Unknown [id number] Unknown [id number] Unknown [id number] Unknown [id number] Social History Date Type Detail Facility Start: 06-10-2017 End: 03-14-2022 Tobacco smoking status NHIS Never smoked tobacco [facility] Start: 09-26-2021 End: 02-18-2023 Alcohol intake Current non-drinker of alcohol (finding) [facility] Start: 2004 Sex Assigned At Female [facility] Start: 09-16-2021 End: 04-08-2022 Exposure to SARS-CoV-2 (event) Not sure [facility] Start: 06-10-2017 End: 03-14-2022 Tobacco use and exposure Smokeless tobacco non-user [facility] Start: 01-22-2023 End: 02-18-2024 History of Social function [facility] Start: 01-22-2023 End: 02-18-2024 Tobacco use panel [facility] National Score (1-100), lower number is lower risk 51 [facility] Start: 01-10-2020 Gender identity Identifies as female gender (finding) [facility] Start: 06-03-2023 Tobacco smoking stat [facility] Unknown if ever smoked [facility] Start: 11-14-2023 End: 11-15-2024 Alcohol intake Ex-drinker (finding) [facility] Start: 11-13-2023 Education 15 [facility] Start: 11-13-2023 Alcohol Comment occasionally [facility] Start: 09-19-2023 [facility] The thought of huberti ng myself has occurred to me Sometimes [facility] Start: 08-17-2024 Sex Female (finding) [facility] Medical Equipment Procedure Code Equipment Code Equipment Origin al Text Equipment Identifier Dates Dpd-Rl-E-Kind Implant - [id number] Start: 01-18-2022 Comment on above: Description: Semi-T Screw Fastthread 7mm Biocomposite 20mm Interference Knee - [id number] Start: 01-18-2022 Device Dx Swivel ock Sl 3.5mm 8.5mm [place] Eyelet Sterile - [id number] Start: 01-18-2022 Device Dx Swivel ock Sl 3.5mm 8.5mm [place] Eyelet Sterile - [id number] Start: 01-18-2022 Goals Date Patient Goal Desired Activity /State Personal health goal Functional Status Date Assessment Result Facility 06-22-2014 Are you deaf, or do you have serious difficulty hearing No 06/22/2014 10:58 AM Jessica Eli RN No [facility] Work Phone: 06-22-2014 Are you blind, or do you have serious difficulty seeing, even when wearing glasses No 06/22/2014 10:58 AM Jessica Eli RN No [facility] 06-22-2014 Do you have serious difficulty walking or climbing stairs No 06/22/2014 10:58 AM Jessica Eli RN No [facility] 06-22-2014 Do you have difficul ty dressing or bathing No 06/22/2014 10:58 AM Jessica Eli RN No [facility] Mental Status Date Assessment Result Facility 06-22-2014 Because of a physica l, mental, or emotional condition, do you have serious difficulty concentrating, remembering, or making decisions No 06/22/2014 10:58 AM Jessica Eli RN No [facility] Clinical Notes 06-10-2017 to 11-15-2024 Patient InstructionsLeena Gaytan APRN.CNM - 11/15/2024 3:57 PM Nixon Santana RT(R) - 10/21/2024 5:30 PM Zhanna Slade APRN.MARINE SUPERINTENDENT - 10/21/2024 5:17 PM EDTPatient Instructions Note Date & Type Note Facility 11-15-2024 Instructions Roro Sanz MA - 11/15/2024 3:59 PM EDT POST IUD INSTRUCTIONS You may have irregular bleeding during the first 3 months of use. You may have mild-severe cramping for the next 48 hours. You may use over the counter medication (Motrin, Tylenol) as needed. Your IUD must be removed or replaced based on the following table: IUD Type Removed or replaced within: Radha 3 years Kyleena 5 years Mirena 8 years Liletta 8 years Paragard 10 years Call the office for signs/symptoms of infection such as severe cramping, fever, or unusual bleeding. Check for string placement as instructed by your doctor. If you have any additional questions, please contact the office. documented in this encounter [facility] 11-15-2024 Note HNO ID: [id number] Author: LEENA GAYTAN APRN.CNM Service: ? Author Type: Water Resources Technical Officer Type: Progress Notes Filed: 11/15/2024 17:11 Note Text: Beatris presents today for IUD insertion for contraception. Patient's last menstrual period was 10/10/2024 (exact date). GC/chlamydia: Not done: no risk factors and/or patient declines screening test: negative Side effects including irregular bleeding were discussed with the patient. The patient understands that it should be removed in 7 years or sooner if the patient desires a . IUD source: office provided IUD lot #: [id number] Exp date: 12/15/2026 UNIVERSAL PROTOCOL / SAFETY CHECKLIST Procedure to be Performed: Insertion Sign In: A Moment of CARE was completed. Appropriate PPE (Personal Protective Equipment) worn by all providers involved with the procedure. Special equipment not required. Patient/Surrogate Stated/Verified: Patient name, Date of , Relevant allergies, and The intended procedure Time Out: Relevant labs, photos, and/or imaging studies have been reviewed. Intended patient and procedure match the source document(s) (e.g. consent, HANDP, associated studies [imaging, pathology]) match the intended patient and procedure. Consent obtained and matches the intended procedure. Yes. Correct side/site is not applicable. Medications required for this procedure are verified. Fire risk assessed and is not applicable. Implants: are not applicable. Sign Out: Specimens not collected. All instruments, equipment, possible retained foreign bodies are accounted for. Yes. The post-procedure plan of care has been communicated to the patient or surrogate. The cervix was prepped with betadine. The uterus sounded to 7 cm and the uterus is Anteverted.. Using sterile technique, the ParaGard IUD was inserted without difficulty and the string was cut to 2 cm from the external os of the cervix. Patient tolerated procedure well. PLAN: Patient was advised to observe for signs and symptoms of infection including but not limited to fever, malodorous vaginal discharge and/or pain. The patient was told to check the string monthly for accurate placement. Bleeding expectations were reviewed. Follow up after next menses for string check. Leena Gyatan APRN.CNM [facility] 11-15-2024 History of Present illness Narrative Beatris presents today for IUD insertion for contraception. Patient's last menstrual period was 10/10/2024 (exact date). GC/chlamydia: Not done: no risk factors and/or patient declines screening test: negative Side effects including irregular bleeding were discussed with the patient. The patient understands that it should be removed in 7 years or sooner if the patient desires a . IUD source: office provided IUD lot #: [id number] Exp date: 12/15/2026 UNIVERSAL PROTOCOL / SAFETY CHECKLIST Procedure to be Performed: Insertion Sign In: A Moment of CARE was completed. Appropriate PPE (Personal Protective Equipment) worn by all providers involved with the procedure. Special equipment not required. Patient/Surrogate Stated/Verified: Patient name, Date of , Relevant allergies, and The intended procedure Time Out: Relevant labs, photos, and/or imaging studies have been reviewed. Intended patient and procedure match the source document(s) (e.g. consent, H&P, associated studies [imaging, pathology]) match the intended patient and procedure. Consent obtained and matches the intended procedure. Yes. Correct side/site is not applicable. Medications required for this procedure are verified. Fire risk assessed and is not applicable. Implants: are not applicable. Sign Out: Specimens not collected. All instruments, equipment, possible retained foreign bodies are accounted for. Yes. The post-procedure plan of care has been communicated to the patient or surrogate. The cervix was prepped with betadine. The uterus sounded to 7 cm and the uterus is Anteverted.. Using sterile technique, the ParaGard IUD was inserted without difficulty and the string was cut to 2 cm from the external os of the cervix. Patient tolerated procedure well. PLAN: Patient was advised to observe for signs and symptoms of infection including but not limited to fever, malodorous vaginal discharge and/or pain. The patient was told to check the string monthly for accurate placement. Bleeding expectations were reviewed. Follow up after next menses for string check. Leena Gaytan APRN.CNM documented in this encounter [facility] 10-21-2024 History of Present illness Narrative Radiology Service Progress Note PATIENT NAME: Beatris Fletcher DATE OF SERVICE: October 21, 2024 TIME: 5:12 PM PATIENT IDENTITY VERIFICATION COMPLETED USING TWO (2) IDENTIFIERS: Name and Date of confirmed by patient verbally. FALL SCREENING: Has the patient had 2 falls in the last year or 1 fall with injury or currently using an Ambulatory Assistive Device (Walker, Cane, Wheelchair, Crutches, etc.)? No PATIENT GENDER DATA: Assigned female at . status: : No status: NO. PATIENT RELEVANT IMPLANT DATA REVIEWED: Yes PATIENT PRESENTS WITH AN IMPLANTABLE OR ATTACHED CPR INSTRUCTOR: No RADIOLOGY DEPARTMENT: General X-ray: Exam(s) Completed: Chest X-Ray PERIPHERAL IV DATA: Not applicable SIGNED BY: RT Abdirahman(Arthur) October 21, 2024 5:12 PM documented in this encounter [facility] 10-21-2024 Note HNO ID: [id number] Author: NIXON CARDENAS RT(Arthur) Service: ? Author Type: Manager Body Type: Progress Notes Filed: 10/21/2024 17:19 Note Text: Radiology Service Progress Note PATIENT NAME: Beatris Fletcher DATE OF SERVICE: October 21, 2024 TIME: 5:12 PM PATIENT IDENTITY VERIFICATION COMPLETED USING TWO (2) IDENTIFIERS: Name and Date of confirmed by patient verbally. FALL SCREENING: Has the patient had 2 falls in the last year or 1 fall with injury or currently using an Ambulatory Assistive Device (Walker, Cane, Wheelchair, Crutches, etc.)? No PATIENT GENDER DATA: Assigned female at . status: : No status: NO. PATIENT RELEVANT IMPLANT DATA REVIEWED: Yes PATIENT PRESENTS WITH AN IMPLANTABLE OR ATTACHED CPR INSTRUCTOR: No RADIOLOGY DEPARTMENT: General X-ray: Exam(s) Completed: Chest X-Ray PERIPHERAL IV DATA: Not applicable SIGNED BY: RT Abdirahman(Arthur) October 21, 2024 5:12 PM [facility] 10-21-2024 Note HNO ID: [id number] Author: ZHANNA HAZEL APRN.CLAUDIA Service: ? Author Type: Nurse Practitioner Type: Progress Notes Filed: 10/21/2024 17:54 Note Text: [facility] Subjective Beatris Fletcher is a 19 year old female. Patient presents with: Cough: Chest congestion, nasal congestion, SOB, increased mucous, runny nose, heaviness in chest x 1 week Patient came in with complaints of cough congestion. Patient says the cough is productive. Patient says it has been a week. Patient says she is very short of breath and feels tightness when she takes a deep breath in. Denies any other symptoms. The history is provided by the patient. No advertising space clerk was used. Cough Review of Systems Constitutional: Negative. HENT: Negative. Respiratory: Positive for cough. Objective BP 101/68 Pulse 78 Temp 36.1 ?C (97 ?F) Resp 18 Wt 63 kg (138 lb 14.2 oz) LMP 10/10/2024 (Exact Date) SpO2 98% No BMI 23.47 kg/m? Physical Exam Constitutional: Appearance: Normal appearance. HENT: Right Ear: Tympanic membrane, ear canal and external ear normal. Left Ear: Tympanic membrane, ear canal and external ear normal. Mouth/Throat: Mouth: Mucous membranes are moist. Pharynx: Oropharynx is clear. Eyes: Pupils: Pupils are equal, round, and reactive to light. Cardiovascular: Rate and Rhythm: Normal rate and regular rhythm. Heart sounds: Normal heart sounds. Pulmonary: Effort: Pulmonary effort is normal. Breath sounds: Normal breath sounds. Neurological: Mental Status: She is alert. PAST MEDICAL HISTORY Diagnosis Date Anemia Depression/anxiety Ganglion cyst of wrist, left Irregular menses Low-lying placenta (HCC) 01/26/2024 04/21/24- Resolved. Leena Gaytan APRN.CNM Repeat growth US at 32 weeks. Anitra Caldwell APRN.ELIAZAR Post depression 06/24/2024 PAST SURGICAL HISTORY Procedure Laterality Date DENTAL SURGERY HX 2015 ORTHOPEDICS SURGERY HX knee torn meniscus WRIST Left cyst on left wrist ALLERGIES Eucalyptus and Lactase MEDICATIONS sertraline (ZOLOFT) 25 mg tablet Take 1 tablet by mouth once daily. Dxzbduue-Ox-Syi-Fe-FA tab Take 1 tablet by mouth once daily. With folic acid and DHA as covered by insurance. FAMILY HISTORY Problem Relation Age of Onset [...] Never Smokeless tobacco: Never Vaping Use Vaping status: Former Quit date: 05/19/2021 Substance Use Topics Alcohol use: Not Currently Comment: occasionally Drug use: No {ASSESSMENT/PLAN: 1. Acute cough - ICD9: 786.2, ICD10: R05.1 (primary diagnosis) - XR CHEST 2V FRONTAL/LAT * * * * Physician Interpretation * * * * EXAMINATION: CHEST RADIOGRAPH (2 VIEW FRONTAL AND LATERAL) CLINICAL HISTORY: Acute cough MQ: XC2_6 EXAM DATE/TIME: 10/21/2024 5:20 PM COMPARISON: No relevant prior studies available. RESULT: Lines, tubes, and devices: None. Lungs and pleura: No consolidation. No lung mass. No pleural effusion. No pneumothorax. Cardiomediastinal silhouette: Normal cardiomediastinal silhouette. Bones and soft tissues: Unremarkable. IMPRESSION IMPRESSION: No acute radiographic abnormality. Golf Club Head Inspector And Adjuster: CHAPARRITA Transcribe Date/Time: Oct 21 2024 5:46P Dictated by : DANAE BAR MD 2. Rhinosinusitis - ICD9: 473.9, ICD10: J32.9 - Will begin treatment with as per antibiotic as written, see orders - DOXYCYCLINE HYCLATE 100 MG TABLET Patient said there is no chance of . Patient educated about proper use of medication supportive therapies. Patient will follow-up if signs and symptoms seem to getting worse not better. Patient agreeable to care plan. Zhanna Hazel APRN.MARINE SUPERINTENDENT MDM Procedures [facility] 10-21-2024 History of Present illness Narrative [facility] Subjective Beatris Fletcher is a 19 year old female. Patient presents with: Cough: Chest congestion, nasal congestion, SOB, increased mucous, runny nose, heaviness in chest x 1 week Patient came in with complaints of cough congestion. Patient says the cough is productive. Patient says it has been a week. Patient says she is very short of breath and feels tightness when she takes a deep breath in. Denies any other symptoms. The history is provided by the patient. No advertising space clerk was used. Cough Review of Systems Constitutional: Negative. HENT: Negative. Respiratory: Positive for cough. Objective BP 101/68 Pulse 78 Temp 36.1 C (97 F) Resp 18 Wt 63 kg (138 lb 14.2 oz) LMP 10/10/2024 (Exact Date) SpO2 98% No BMI 23.47 kg/m Physical Exam Constitutional: Appearance: Normal appearance. HENT: Right Ear: Tympanic membrane, ear canal and external ear normal. Left Ear: Tympanic membrane, ear canal and external ear normal. Mouth/Throat: Mouth: Mucous membranes are moist. Pharynx: Oropharynx is clear. Eyes: Pupils: Pupils are equal, round, and reactive to light. Cardiovascular: Rate and Rhythm: Normal rate and regular rhythm. Heart sounds: Normal heart sounds. Pulmonary: Effort: Pulmonary effort is normal. Breath sounds: Normal breath sounds. Neurological: Mental Status: She is alert. PAST MEDICAL HISTORY Diagnosis Date Anemia Depression/anxiety Ganglion cyst of wrist, left Irregular menses Low-lying placenta (HCC) 01/26/2024 04/21/24- Resolved. Leena Gaytan APRN.CNM Repeat growth US at 32 weeks. Anitra Caldwell APRN.CNM Post depression 06/24/2024 PAST SURGICAL HISTORY Procedure Laterality Date DENTAL SURGERY HX 2015 ORTHOPEDICS SURGERY HX knee torn meniscus WRIST Left cyst on left wrist ALLERGIES Eucalyptus and Lactase MEDICATIONS sertraline (ZOLOFT) 25 mg tablet Take 1 tablet by mouth once daily. Ssxzbcra-Ob-Xho-Fe-FA tab Take 1 tablet by mouth once daily. With folic acid and DHA as covered by insurance. FAMILY HISTORY Problem Relation Age of Onset [...] Never Smokeless tobacco: Never Vaping Use Vaping status: Former Quit date: 05/19/2021 Substance Use Topics Alcohol use: Not Currently Comment: occasionally Drug use: No {ASSESSMENT/PLAN: 1. Acute cough - ICD9: 786.2, ICD10: R05.1 (primary diagnosis) - XR CHEST 2V FRONTAL/LAT * * * * Physician Interpretation * * * * EXAMINATION: CHEST RADIOGRAPH (2 VIEW FRONTAL & LATERAL) CLINICAL HISTORY: Acute cough MQ: XC2_6 EXAM DATE/TIME: 10/21/2024 5:20 PM COMPARISON: No relevant prior studies available. RESULT: Lines, tubes, and devices: None. Lungs and pleura: No consolidation. No lung mass. No pleural effusion. No pneumothorax. Cardiomediastinal silhouette: Normal cardiomediastinal silhouette. Bones and soft tissues: Unremarkable. IMPRESSION IMPRESSION: No acute radiographic abnormality. Golf [employer] Head Inspector And Adjuster: CHAPARRITA Transcribe Date/Time: Oct 21 2024 5:46P Dictated by : DANAE BAR MD 2. Rhinosinusitis - ICD9: 473.9, ICD10: J32.9 - Will begin treatment with as per antibiotic as written, see orders - DOXYCYCLINE HYCLATE 100 MG TABLET Patient said there is no chance of . Patient educated about proper use of medication supportive therapies. Patient will follow-up if signs and symptoms seem to getting worse not better. Patient agreeable to care plan. Zhanna Hazel APRN.CNP MDM Procedures documented in this encounter [facility] 09-17-2024 Note HNO ID: [id number] Author: NATALIIA VAIL LISW Service: ? Author Type: Health And Nutrition Specialist Type: Progress Notes Filed: 09/17/2024 11:06 Note Text: GENERAL PSYCHOLOGY Session #: 1 (session count starts after PSYL NEW EVAL visit) Session conducted by phone due to poor Zoom risk control manager. She was unable to link to [employer] SUBJECTIVE: patient says she is doing ok, but describes a lot of OCD behaviors of cleaning, intrusive thinking about cleaning, and an inability to focus. She denies recent suicidal intent though had a thought of wanting to be in an MVA, though she did not want to . She has been out of sertraline for about a week d/t issues with her pharmacy. She can no longer be followed by OBGYN for her meds. Has had occasional crying spells. States her infant is good and is sleeping through the night. Partner is supportive. Initial assessment was completed. Patient Data Generalized Anxiety Disorder Scale (YOUNG-7) 06/24/2024 07/29/2024 09/17/2024 YOUNG - 7 SCORES Score 18 8 8 13 (0-4) minimal anxiety, (5-9) mild anxiety, (10-14) moderate anxiety, (15-21) severe anxiety Patient Health Questionnaire (PHQ-9) 06/24/2024 07/29/2024 09/17/2024 PHQ-9 Score 22 5 5 14 (0-4) minimal depression, (5-9) mild depression, (10-14) moderate depression, (15-19) moderately severe depression, (20-27) severe depression OBJECTIVE: treatment planning Mental Status Exam ASSESSMENT: Last seen in June. Appears to be doing slightly better with her mood though panic/anxiety/OCD symptoms are prominent. Describes distractibility and hyperactivity. Denies current suicidal ideation. Understands the importance of maintaining meds. DIAGNOSIS: PRIMARY: 1: Mood Disorder Major Depressive Disorder, Recurrent, Moderate Other: Anxiety Disorder Panic Disorder - Without Agoraphobia , Obsessive-Compulsive Disorder, and Generalized Anxiety Disorder PROVISIONAL: Child Onset Disorder Attention-Deficit/Hyperactivity Disorder, Predominantly Hyperactive-Impulsive Type TREATMENT MODALITIES: Solution Focused Psychotherapy PROGRESS TO DATE: Alf Progress: Condition at intake Short Term Condition: Progress GOALS/OBJECTIVES/INTERVENTIONS: Treatment plan: discussed asking OBGYN to send last refill to a different pharmacy Recommended M-IOP and she is interested Consult to Psychiatry placed Phone numbers were sent via [employer] She was advised of my BERT, though I will be available to her for the next month. Suicide protocol sent via [employer] Approximately 45 minutes were spent with the patient doing therapy. RADHA Fuentes [facility] 08-17-2024 Discharge summary [facility] 08-17-2024 Radiology Diagnostic study note [facility] Imaging Services [address] [place] [address] [id number] Abdomen/Pelvis W IV Cont ONLY MR#: [id number] Acct: [id number] Name: BEATRIS FLETCHER Rep #: [id number] : 2005 F 19 From: Yony Jasso MD PCP: Care Physician,No Primary Status: REG ER Study:Abdomen/Pelvis W IV Cont ONLY Date of E xam: 08/17/24 Exam# [id number] Ordering Dr: Enid Alfred MD PROCEDURE: ABDOMEN/PELVIS W IV CONT ONLY 08/17/2024 REASON FOR EXAM: LEFT SIDED ABD PAIN TECHNIQUE: Abdomen and pelvis CT with intravenous contrast. Coronal and Sagittal reconstruction series were provided. PATIENT PREPARATION: Per protocol ORAL CONTRAST TYPE: None. CONTRAST: 97 cc Isovue 370 intravenous One or more dose reduction techniques were used (e.g., Automated exposure control, adjustment of the mA and/or kV according to patient size, use of iterative reconstruction technique. RADIATION DOSE SUMMARY: CTDlvol: 11.85 mGy DLP: 604.73 mGycm COMPARISON: None available FINDINGS: The lung bases are clear. The liver, gallbladder, adrenal glands, right kidney, pancreas and spleen appearwithin limits. There is a 2 mm presenting axis left UVJ stone for example axial 99 with mild left hydroureteronephrosis. Mild asymmetrically decreased appearance of the left nephrogram suggesting slight renal nephrogram delay for example coronal 64. No perinephric stranding or urothelial thickening seen. Abdominal aorta appears within limits. No adenopathy. A few mildly prominent small bowel in the lower abdomen may represent mild focalileus. No bowel dilation or free air. Normal caliber appendix without secondary signs. The bladder is mostly collapsed. The uterus and ovaries appear within limits with incidental note of a 1.9 cm crenated, involuting right ovarian corpus luteum cyst. Trace right pelvic free fluid. The visualized osseous structures appear within limits. CT/Abdomen/Pelvis W IV Cont ONLY IMPRESSION: There is a 2 mm presenting axis left UVJ stone for example axial 99 with mild left hydroureteronephrosis. Based on size likely will spontaneously passed. Mild asymmetrically decreased appearance of the left nephrogram suggesting slight renal nephrogram delay for example coronal 64. No perinephric stranding or urothelial thickening seen. Reading Location: [id number] CC: Dr. Blane Alfred MD; No Primary Care Physician ~ Golf Club Head Inspector And Adjuster: Signed [facility] 07-28-2024 Note HNO ID: [id number] Author: LEENA GAYTAN APRN.CNM Service: ? Author Type: Water Resources Technical Officer Type: Progress Notes Filed: 07/28/2024 13:55 Note Text: VISIT Patient declined sewing machine bobbin winder. Beatris Fletcher is a 18 year old year old here for 6 week visit. Started on Zoloft 25 mg PO daily 1 month ago and reports mood has drastically improved. Denies any feelings of depression and feels that anxiety has been decreased as well. 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 Has appointment with counseling. Delivery Summary: on 05/25/2024 by Marcos epidural at 37 wks, 4 days, 8:34 PM. Male Westley Reyes. ROS/ Recovery: Feeding: Bottle feeding problems: None Menses since delivery: none Menstrual pattern prior to : Irregular periods [place] since delivery: Not resumed Depression: denies, improved with Zoloft symptoms of depression. OB Depression and Anxiety Screening- This Encounter (since 07/27/2024) None Emotional support: Yes Bowel symptoms: Negative for abdominal discomfort, blood in stools or black stools and change in bowel habits Abdomen: N/A Bladder symptoms: No dysuria, gross hematuria, urinary frequency, urinary urgency, or incontinence Other issues: None Last Pap: none HPV: none PAST MEDICAL HISTORY Diagnosis Date Anemia Depression/anxiety Ganglion cyst of wrist, left Irregular menses Low-lying placenta 01/26/2024 04/21/24- Resolved. Leena Gaytan APRN.CNM Repeat growth US at 32 weeks. Anitra Caldwell APRN.CNM Post depression 06/24/2024 PAST SURGICAL HISTORY Procedure Laterality Date DENTAL SURGERY HX 2015 ORTHOPEDICS SURGERY HX knee torn meniscus WRIST Left cyst on left wrist FAMILY [...] Never Smokeless tobacco: Never Vaping Use Vaping status: Former Quit date: 05/19/2021 Substance Use Topics Alcohol use: Not Currently Comment: occasionally Drug use: No PHYSICAL EXAMINATION: SENSITIVE EXAM: The sensitive examination was discussed with the Patient or Patient's Authorized Receiver/Laborer. As applicable, any other physician, advance practice provider, medical student, or other health professional student that will be observing or involved in the sensitive examination for educational or training purposes was discussed with the Patient or Authorized Receiver/Laborer. The Patient or Authorized Receiver/Laborer has agreed to proceed with the sensitive examination. (Sensitive examination includes inspection and/or palpation of the breasts, pelvis, prostate and anorectal regions). BP 118/60 Wt 162 lb 9.6 oz (73.8kg) LMP 08/21/2023 GENERAL: pleasant, female in no apparent distress HEENT: Normocephalic and atraumatic NECK: Supple and full range of motion DERMATOLOGY: Normal and without lesions BREAST: deferred CHEST: Normal inspiratory effort ABDOMEN: soft, non-tender, and no masses. INCISION: N/A PELVIC: external genitalia normal, normal Bartholin's glands, urethra, Boomer's glands, no vulvar lesions, no cervical lesions, good vaginal support, physiologic discharge present, normal appearing perineal body and perianal region BIMANUAL: uterus normal size, shape and consistency, no adnexal masses, non-tender, and no cervical motion tenderness NEURO: alert and oriented x3,exam grossly non-focal EXTREMITIES: normal ASSESSMENT AND PLAN: 18 year old status post with normal course. Contraception plan: IUD - Paraguard - Patient desires non hormonal option because of possible changes to mood. Advised to use condoms prior to IUD insertion. Follow up: RTC for insertion of IUD Leena Gaytan APRN.CNM [facility] 07-28-2024 History of Present illness Narrative VISIT Patient declined sewing machine bobbin winder. Beatris Fletcher is a 18 year old year old here for 6 week visit. Started on Zoloft 25 mg PO daily 1 month ago and reports mood has drastically improved. Denies any feelings of depression and feels that anxiety has been decreased as well. 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 Has appointment with counseling. Delivery Summary: on 05/25/2024 by Marcos epidural at 37 wks, 4 days, 8:34 PM. Male Westley Reyes. ROS/ Recovery: Feeding: Bottle feeding problems: None Menses since delivery: none Menstrual pattern prior to : Irregular periods [place] since delivery: Not resumed Depression: denies, improved with Zoloft symptoms of depression. OB Depression and Anxiety Screening- This Encounter (since 07/27/2024) None Emotional support: Yes Bowel symptoms: Negative for abdominal discomfort, blood in stools or black stools and change in bowel habits Abdomen: N/A Bladder symptoms: No dysuria, gross hematuria, urinary frequency, urinary urgency, or incontinence Other issues: None Last Pap: none HPV: none PAST MEDICAL HISTORY Diagnosis Date Anemia Depression/anxiety Ganglion cyst of wrist, left Irregular menses Low-lying placenta 01/26/2024 04/21/24- Resolved. Leena Gaytan APRN.CNM Repeat growth US at 32 weeks. Anitra Caldwell APRN.CNM Post depression 06/24/2024 PAST SURGICAL HISTORY Procedure Laterality Date DENTAL SURGERY HX 2015 ORTHOPEDICS SURGERY HX knee torn meniscus WRIST Left cyst on left wrist FAMILY [...] Never Smokeless tobacco: Never Vaping Use Vaping status: Former Quit date: 05/19/2021 Substance Use Topics Alcohol use: Not Currently Comment: occasionally Drug use: No PHYSICAL EXAMINATION: SENSITIVE EXAM: The sensitive examination was discussed with the Patient or Patient's Authorized Receiver/Laborer. As applicable, any other physician, advance practice provider, medical student, or other health professional student that will be observing or involved in the sensitive examination for educational or training purposes was discussed with the Patient or Authorized Receiver/Laborer. The Patient or Authorized Receiver/Laborer has agreed to proceed with the sensitive examination. (Sensitive examination includes inspection and/or palpation of the breasts, pelvis, prostate and anorectal regions). BP 118/60 Wt 162 lb 9.6 oz (73.8kg) LMP 08/21/2023 GENERAL: pleasant, female in no apparent distress HEENT: Normocephalic and atraumatic NECK: Supple and full range of motion DERMATOLOGY: Normal and without lesions BREAST: deferred CHEST: Normal inspiratory effort ABDOMEN: soft, non-tender, and no masses. INCISION: N/A PELVIC: external genitalia normal, normal Bartholin's glands, urethra, Boomer's glands, no vulvar lesions, no cervical lesions, good vaginal support, physiologic discharge present, normal appearing perineal body and perianal region BIMANUAL: uterus normal size, shape and consistency, no adnexal masses, non-tender, and no cervical motion tenderness NEURO: alert and oriented x3,exam grossly non-focal EXTREMITIES: normal ASSESSMENT AND PLAN: 18 year old status post with normal course. Contraception plan: IUD - Paraguard - Patient desires non hormonal option because of possible changes to mood. Advised to use condoms prior to IUD insertion. Follow up: RTC for insertion of IUD Leena Gaytan APRN.CNM documented in this encounter [facility] 07-15-2024 Note HNO ID: [id number] Author: SAROJ EARLY LISW Service: ? Author Type: Health And Nutrition Specialist Type: Progress Notes Filed: 07/15/2024 08:19 Note Text: -------- Summary: WB Consult Follow Up -------- Review of referral with patient. Was patient aware of [facility] referral placement by provider?Yes Is the patient currently connected for care : No If not connected to Care are they agreeable to referral?Yes If agreeable to referral, are they:Internal Comment: [facility] psychology Assisted in making appt at: [facility] psychiatry Appointment date and time: 06/24/24 Current priority status of the referral Medium Additional information SW did not speak to patient directly. Patient referred to [facility] 06/17/24 and had appointment with [facility] psychology 06/24/24. [facility] 06-25-2024 Instructions Leena Gaytan APRN.ELIZAAR - 06/25/2024 10:10 AM EST Here are some links for wonderful Providers here in the community and surrounding areas. Do not hesitate to contact their offices, many are offering virtual visits during this time. 9-240-1-ZSFF9KHZN - [facility] Mental Health Hotline If you are in suicidal crisis, please call or text 1-473-355-TALK ( ) or visit the National Suicide Prevention Lifeline website. mchb.[facility]. [facility] hospital[facility].gov [facility] Psychology, Psychiatry, Counseling Connect with therapist/ can do virtual visits [phone] Referral to the [facility] Women[facility] Behavioral [facility] To schedule an appointment, please call the Center for Behavioral Health Appointment Line: [phone] option 1 [facility] - [place], [place] [address] [place], [place] [id number] Lizette Willett[address] [place], [place] [address] [facility] [address] [place], [place] [id number] [facility] [address] [place] [address] Ladi Conteh MD [address] [place] [address] [facility] [address] [facility], [address] [place] [address] [facility] [address] [place] [address] [facility] [place] / [place] [phone]/ [phone] Wendy Lopez [address] [facility] [phone] [facility] Counseling and Mediation [place] / [place] [phone] [facility] [address] [place] [address]/ [facility] [facility] [place] [phone] JOHNNIE Johnston, [facility] Workshops, telehealth and at home visits. [phone] Humanistic counseling center 20 locations [facility], [place], [place], [place], [place], [place], [facility], [place], [place], [place], [place], [place], [place], [facility], [place], [place] ,[facility], [place], [place],[facility], [facility], [place], [facility], [facility], [place] www.KFx Medical [phone] Psychotherapy resources outside of [facility] are listed below [employer] [facility] Web: https://www.Quintiq/ Support International Online Provider Directory https://STARFACE/ [facility] https://insightCeutiCare/ Partners for Behavioral Health and Wellness Web: https://TTS Pharma/ Center for Effective Living Web: https://www.effectivefanbook Inc.living.Torbit/ LifeStance Web: https://Vigor Pharma.Torbit/location/stat e/[place]/ [facility] Web: https://www.Go Long Wirelessnorthern navajo [facility].org/ [facility] Web: https://thecentersohio.org/ Recovery Resources Mental health and substance abuse help Web: https://www.Prithvi Catalytic, IncsASYM III & RESOURCES Support International Direct peer support and connection to professional resources Non-Emergency Helpline Phone: / Text: [phone] Web: https://www..net/ Online Provider Directory: https://STARFACE/ Online Support Meetings: https://www..net/get-help/ cvh-nrmfbb-eyrxhhb-meetings/ REY Baby and Jigsawyer Services Web: https://SocialProof/ Sha-Sha Expert information on medication use during and Text: [phone] Web: https://Vital Renewable Energy Company/ NATIONAL REGISTRY FOR PSYCHIATRIC MEDICATIONS Currently studying the safety of antidepressants, ADHD medications and atypical antipsychotics taken during TO PARTICIPATE CALL TOLL-FREE: Web: https://womenentalhealth.org/[facility]/pregnancyregistry/ Support Groups: [facility]- Follow on facebook Baby Bistro support group led by [facility] department Resilient Mamas - Support Group [facility].org The POEM support group [phone] Www.poemonline.org Follow on facebook - JOSIANE [facility] Online support meetings PSI https://www..net/get-help/ nim-httnej-slfvoke-meetings/ [facility] mommy and me virtual support group 11:30-1pm Support for mothers and new babies and toddlers [place] childbirth education: Childbirth @ccf.org or call [phone] CRISIS: CRISIS HOTLINE [phone], 911 or go to the nearest . [facility] [phone] / [facility] [phone] https://www.a.[facility].org Crisis text line text the word HOME to 364[address] [facility] [address] [facility] [address] www.Makeover Solutions Samra Ku clinical counseling [address] [address] www.Ubiquity Global Services [phone] Holding space psychotherapy Raisa Perez BUSINESS PERFORMANCE ANALYST PUTTY MIXER AND APPLIER-S [address] [facility] www.Ziipa [phone]/ [place] [phone] They all offer virtual. All work with trauma Support groups Online support meetings PSI https://www..net/get-help/ jfm-lmstos-icpmpsh-meetings/ Here are the support groups they offer: Support of parents of 1 to 4 years old children POEM ( Outreach and Encouragement for Moms) offers free support for mothers experiencing depression, anxiety, and other mood and anxiety disorders. Masks are recommended but not required. No pre-registration required. Babies in arms welcome. meetings now take place on the and Friday of each month Location: [facility] [address] [place] [address] Room 122 (library room) 7-8:00 p.m. When you enter the [facility] parking lot off of [address] the entrance door closest to our meeting room is on the front of the building toward the right. For those who are more comfortable with a virtual platform, POEM offers online support group options several days of the week. To register for an online group or to find out more about POEM, website at: https://mhaohio.org/get-help/materna y-ktakfm-ivtjmo/poem-services/ offer a confidential helpline: private Facebook group is called JOSIANE [facility] Luis Here are the groups they offer: Traumatic childbirth resources: Http://pattch.org/ https://www.kathfanbook Inc.mikaela. Torbit/ documented in this encounter [facility] 06-25-2024 Note HNO ID: [id number] Author: LEENA GAYTAN APRN.[facility] Service: ? Author Type: Water Resources Technical Officer Type: Progress Notes Filed: 06/25/2024 10:12 Note Text: VIRTUAL VISIT PROGRESS NOTE This is a virtual visit using Avante Logixx Zoom Video Visit. It required patient-provider interaction for the medical decision making as documented below. I have communicated my name and active licensure. The patient's identity and physical location were verified at the time of this visit. Either the patient or their legal sales representative advertising has been informed of the risks and benefits of -- and alternatives to -- treatment through a remote evaluation and consents to proceed with the evaluation remotely. Beatris Fletcher is a 18 year old female seen for feelings of depression. She was referred to woman's behavioral health services for counseling and completed intake via phone yesterday. Received message from rn social work: I just did a psych eval on Beatris and I told her to contact you mari so you could possibly start her on an SSRI. About two weeks ago she had a plan to overdose on Tylenol, had thought out a plan to have someone care for her baby, and she has intense migraines that cause her to hit her head on the table. She has a prior history of OD. Today she tells me she is not having such thoughts, which usually depend on her migraine. I gave her a safety plan to follow (go to ED with migraines or SI) If she does not reach out to you can you please contact her? Patient reports feeling anxious and stressed out most of the time. Increased worry that baby is going to get sick. Does not like baby to be around anyone. Does not feel comfortable leaving baby with family or ply splicer. Initially thought she was just tired, but partner noticed the change in her behavior. Some days feeling sad, tearful for no reason. Appetite fluctuating. Able to care for self and . Reports 2 weeks ago having a migraine so bad that she was having thoughts of banging her head against something. Also had thoughts of Just not being here anymore. She was taking Tylenol but it was not working and had thoughts of just taking the entire bottle. Migraine has resolved. No current thoughts of self harm or harm to anyone including infant. 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 Generalized anxiety disorder - ICD9: 300.02, ICD10: F41.1 Longmont Depression Scale Total: 23 YOUNG- 12 Denies current SI/HI Scheduled with counseling / psychiatry next month Zoloft 25 mg PO daily- start with 1/2 tab daily for first week and increase to full tab on week 2 Possible side effects discussed and questions answered Desires to stop pumping- discussed wrapping breasts/icing/ benadryl Has good family support Crisis phone number and other MH services provided RTO 4 weeks for follow up / medication evaluation Leena Gaytan APRN.CNM I spent a total of 20 minutes on the date of the service which included preparing to see the patient, completing clinical documentation, obtaining and/or reviewing separately obtained history, performing a medically appropriate examination, counseling and educating the patient/family/caregiver, and ordering medications, tests, or procedures [facility] 06-25-2024 History of Present illness Narrative VIRTUAL VISIT PROGRESS NOTE This is a virtual visit using Avante Logixx Zoom Video Visit. It required patient-provider interaction for the medical decision making as documented below. I have communicated my name and active licensure. The patient's identity and physical location were verified at the time of this visit. Either the patient or their legal sales representative advertising has been informed of the risks and benefits of -- and alternatives to -- treatment through a remote evaluation and consents to proceed with the evaluation remotely. Beatris Fletcher is a 18 year old female seen for feelings of depression. She was referred to woman's behavioral health services for counseling and completed intake via phone yesterday. Received message from rn social work: I just did a psych eval on Beatris and I told her to contact you mari so you could possibly start her on an SSRI. About two weeks ago she had a plan to overdose on Tylenol, had thought out a plan to have someone care for her baby, and she has intense migraines that cause her to hit her head on the table. She has a prior history of OD. Today she tells me she is not having such thoughts, which usually depend on her migraine. I gave her a safety plan to follow (go to ED with migraines or SI) If she does not reach out to you can you please contact her? Patient reports feeling anxious and stressed out most of the time. Increased worry that baby is going to get sick. Does not like baby to be around anyone. Does not feel comfortable leaving baby with family or ply splicer. Initially thought she was just tired, but partner noticed the change in her behavior. Some days feeling sad, tearful for no reason. Appetite fluctuating. Able to care for self and . Reports 2 weeks ago having a migraine so bad that she was having thoughts of banging her head against something. Also had thoughts of Just not being here anymore. She was taking Tylenol but it was not working and had thoughts of just taking the entire bottle. Migraine has resolved. No current thoughts of self harm or harm to anyone including . 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 Generalized anxiety disorder - ICD9: 300.02, ICD10: F41.1 Long[place] Depression Scale Total: 23 YOUNG- 12 Denies current SI/HI Scheduled with counseling / psychiatry next month Zoloft 25 mg PO daily- start with 1/2 tab daily for first week and increase to full tab on week 2 Possible side effects discussed and questions answered Desires to stop pumping- discussed wrapping breasts/icing/ benadryl Has good family support Crisis phone number and other MH services provided RTO 4 weeks for follow up / medication evaluation Leena Gaytan APRN.CNM I spent a total of 20 minutes on the date of the service which included preparing to see the patient, completing clinical documentation, obtaining and/or reviewing separately obtained history, performing a medically appropriate examination, counseling and educating the patient/family/caregiver, and ordering medications, tests, or procedures documented in this encounter [facility] 06-24-2024 Telephone encounter Note Spoke with patient. Scheduled for a virtual visit tomorrow. Amelia Martinez RN [facility] 06-24-2024 Miscellaneous Notes Spoke with patient. Scheduled for a virtual visit tomorrow. Amelia Martinez RN Left message for patient to call office. Andrea Carlton RN Leena Gaytan APRN.ELIAZAR (Water Resources Technical Officer) Tailor Helper Patient contacted by social work for women's behavioral health referral. Received this message: I just did a psych eval on Beatris and I told her to contact you mari so you could possibly start her on an SSRI. About two weeks ago she had a plan to overdose on Tylenol, had thought out a plan to have someone care for her baby, and she has intense migraines that cause her to hit her head on the table. She has a prior history of OD. Today she tells me she is not having such thoughts, which usually depend on her migraine. I gave her a safety plan to follow (go to ED with migraines or SI) If she does not reach out to you can you please contact her? Can we please reach out to patient and get a virtual visit with me scheduled. Tomorrow is fine! documented in this encounter [facility] 06-24-2024 Telephone encounter Note Left message for patient to call office. Andrea Carlton RN [facility] 06-24-2024 Telephone encounter Note Leena Gaytan APRN.CNM (Water Resources Technical Officer) Tailor Helper Patient [facility]. Received this message: I just did a psych eval on Beatris and I told her to contact you [facility] so you could possibly start her on an SSRI. About two weeks ago she had a plan to overdose on Tylenol, had thought out a plan to have someone care for her baby, and she has intense migraines that cause her to hit her head on the table. She has a prior history of OD. Today she tells me she is not having such thoughts, which usually depend on her migraine. I gave her a safety plan to follow (go to ED with migraines or SI) If she does not reach out to you can you please contact her? Can we please reach out to patient and get a virtual visit with me scheduled. Tomorrow is fine! [facility] 06-24-2024 Note HNO ID: [id number] Author: LEENA GAYTAN APRN.CNM Service: ? Author Type: Water Resources Technical Officer Type: Progress Notes Filed: 06/24/2024 10:47 Note Text: Patient [facility]. Received this message: I just did a psych eval on Beatris and I told her to contact you [facility] so you could possibly start her on an SSRI. About two weeks ago she had a plan to overdose on Tylenol, had thought out a plan to have someone care for her baby, and she has intense migraines that cause her to hit her head on the table. She has a prior history of OD. Today she tells me she is not having such thoughts, which usually depend on her migraine. I gave her a safety plan to follow (go to ED with migraines or SI) If she does not reach out to you can you please contact her? Can we please reach out to patient and get a virtual visit with me scheduled. Tomorrow is fine! Leena Gaytan APRN.CNM [facility] 06-24-2024 History of Present illness Narrative Patient contacted by [facility] work for women's behavioral health referral. Received this message: I just did a psych eval on Beatris and I told her to contact you mari so you could possibly start her on an SSRI. About two weeks ago she had a plan to overdose on Tylenol, had thought out a plan to have someone care for her baby, and she has intense migraines that cause her to hit her head on the table. She has a prior history of OD. Today she tells me she is not having such thoughts, which usually depend on her migraine. I gave her a safety plan to follow (go to ED with migraines or SI) If she does not reach out to you can you please contact her? Can we please reach out to patient and get a virtual visit with me scheduled. Tomorrow is fine! Leena Gaytan APRN.CNM documented in this encounter [facility] 06-24-2024 Note HNO ID: [id number] Author: NATALIIA VAIL LISW Service: ? Author Type: Health And Nutrition Specialist Type: Progress Notes Filed: 09/17/2024 10:49 Note Text: GENERAL PSYCHOLOGY Patient was seen for an initial evaluation. All information is from Patient report except when noted. This evaluation is NOT intended for forensic, disability or child custody purposes. Informed consent was discussed and signed by the patient. Visit performed via Virtual Visit Informed consent to deliver services discussed Patient aware of benefits of virtual visit services and is in agreement to participate Originating site for client [place] Originating site for provider [place] Site appropriate for privacy No equipment failures, provided psychotherapy I have communicated my name and active licensure. The patient's identity and physical location were verified at the time of this visit. Either the patient or their legal sales representative advertising has been informed of the risks and benefits of -- and alternatives to -- treatment through a remote evaluation and consents to proceed with the evaluation remotely. The patient e-signed the Informed Consent for Psychological Evaluation AND Care Form, and the behavioral health care insurance benefits, fees for service, emergency procedures, and the limits of confidentiality that may pertain with any given case were discussed with the patient. The patient was given a copy of the consent form on vIPtela. The patient consented to a virtual visit and their location was confirmed. PRESENT: Child AGE: [age] year old RACE: White MARITAL STATUS: Living with significant other CHILDREN: Yes, son age one month [place]. 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 PAST MEDICAL HISTORY Diagnosis Date Anemia Depression/anxiety Ganglion cyst of wrist, left Irregular menses Low-lying placenta 01/26/2024 04/21/24- Resolved. Leena Gaytan APRN.CNM Repeat growth US at 32 weeks. Anitra Caldwell APRN.CNM PAST SURGICAL HISTORY Procedure Laterality Date DENTAL SURGERY HX 2015 ORTHOPEDICS SURGERY HX knee torn meniscus WRIST Left cyst on left wrist Current Outpatient Medications Medication Sig Immffvwd-Xg-Dkg-Fe-FA tab Take 1 tablet by mouth once daily. With folic acid and DHA as covered by insurance. No current facility-administered medications for this visit. ALLERGIES Allergen Reactions Eucalyptus Rash Chemical burn Lactase Other: See Comments REFERRAL SOURCE: Reny Gaytan APRN CHIEF COMPLAINT: I have been crazy overwhlmed, stressed out and worried over eveything. HPI: had been told in he past that she has high anxiety, prior to . Has exacerbated since delivering son one month ago. Says she first began feeling anxious while a sophomore in high school. She would start out with hives and persistent scratching. Depressive symptoms began about a year later. Could not identify a particular trigger. She says she is stressed out over formula and not eating initially, which has decreased, and now she doesn't like to leave the house, or if she sees other people they might want to hold the baby, which she doesn't want. The biggest fear is that her baby will become ill. Mood has been up and down, bipolar; will be ok and then immediately get tearful. Has been irritable and snappy with BF, then breaks down in tears. Pregancy went well, had a low placenta, and she didn't like being , which was not planned. She had plans to adopt. She is happy now that her son is here. Delivery went well, though she was terrifed, only labored for 34 minutes. Sleep: is interrupted by frequent wakings due to feedings, getting 3-4 hours, naps. Has difficulty falling asleep because she might hear infant start to cry Interest: diminished, has been avoiding friends bc she doesn't want others to hold the baby, some days has low motivation. Guilt: if she sleeps and doesn't do much around the house, or that BF has to help Energy: fluctuates with sleep, gets sad will cry for hours at night Concentration: fair, prior to , wonders about ADHD, was told by teachers she probably does Appetite: some days she does not eat anything, others she binges to make up, in high school she had an eating disorder. Denies purging or over exercising. Psychomotor activity: psychomotor activity was WNL. Suicide: since delivery she has had migraines and she has been having a thoughts of hitting her head on a table to make it stop, once looked at a bottle of Tylenol to make sure she had enough to overdose, if she decided. She thought of her baby being alone, though a few days later she thought of it again, but didn't want her BF to have to find her. Had made a plan to make sure the baby would be taken care of. This was roughly two weeks ago. Takes Tylenol for headaches. Last year she OD'd and went to the ED because she felt hopele (more content not included)... [facility] 06-17-2024 Instructions Leena Gaytan APRN.[facility] - 06/17/2024 2:16 PM EST Here are some links for wonderful Providers here in the community and surrounding areas. Do not hesitate to contact their offices, many are offering virtual visits during this time. 9-092-9-QQXO5BJWD - [place] Maternal Mental Health Hotline If you are in suicidal crisis, please call or text 5-732-687-TALK ( ) or visit the National Suicide Prevention Lifeline website. mchb.hrsa.gov [facility] Psychology, Psychiatry, Counseling Connect with therapist/ can do virtual visits [phone] Referral to the [facility] Center for Women's Behavioral Health To schedule an appointment, please call the Center for Behavioral Health Appointment Line: [phone] option 1 [facility] [place] [address] [place] [address] [address] [place] [address] [facility] [address] [place] [address] [facility] [address] [place] [address] Ladi Conteh MD [address] [place] [address] [facility] [address] [facility], [address] [place] [address] [facility] [address] [place] [address] [facility] Counsel[facility] Services [place] / [place] [phone]/ [phone] [facility] [address] [facility] [phone] Aves of Counseling and Mediation [place] / [place] [phone] [facility] [address] [place] [address]/ [facility] [place] [phone] JOHNNIE Johnston, [facility] Bu and Beyond Family Therapy Workshops, telehealth and at home visits. [phone] Humanistic counseling center 20 locations [place], [place], [place], [place], [place], [place], [place], [facility], [place], [place], [place], [place], [place], [place], [facility], [place], [place] ,[facility], [place], [place],[facility], [facility], [place], [facility], [facility], [place] www.Bluenogmontgomery general hospitalPlanetEye [phone] Psychotherapy resources outside of [facility] are listed below [employer] [facility] Web: https://www.Quintiq/ Support International Online Provider Directory https://STARFACE/ [facility] https://Upward Mobility.Torbit/ Partners for Behavioral Health and Wellness Web: https://TTS Pharma/ Center for Effective Living Web: https://www.Fusion DynamicSame Day Serves/ LifeStance Web: https://Signal Point Holdings/location/stat e/[place]/ Signature [facility] Web: https://www.Go Long Wirelessnorthern navajo [facility].org/ The Centers Web: https://Professional Diabetes [facility]/ Recovery Resources Mental health and substance abuse help Web: https://www.ALLO Communications & RESOURCES Support International Direct peer support and connection to professional resources Non-Emergency Helpline Phone: / Text: [phone] Web: https://www..net/ Online Provider Directory: https://STARFACE/ Online Support Meetings: https://www..net/get-help/ qtk-opkmkf-peqiiua-meetings/ REY Baby and Jigsawyer Services Web: https://SocialProof/ Sha-Sha Expert information on medication use during and Text: [phone] Web: https://Vital Renewable Energy Company/ NATIONAL REGISTRY FOR PSYCHIATRIC MEDICATIONS Currently studying the safety of antidepressants, ADHD medications and atypical antipsychotics taken during TO PARTICIPATE CALL TOLL-FREE: Web: https://womenwest hills hospitalhealth.org/resm[facility]/pregnancyregistry/ Support Groups: [facility]- Follow on facebook Baby Bistro support group led by [facility] department Resilient Mamas - Support Group [facility] Fargos.org The POEM support group [phone] Www.poemonline.org Follow on facebook - JOSIANE smith Online support meetings PSI https://www..net/get-help/ kwb-vaqgno-ftglmqv-meetings/ [facility] mommy and me virtual support group 11:30-1pm Support for mothers and new babies and toddlers [place] childbirth education: Childbirth @ccf.org or call [phone] CRISIS: CRISIS HOTLINE [phone], 911 or go to the nearest ER. [facility] [phone] / [facility] [phone] https://www.e.j. noble hospitalrb.org Crisis text line text the word HOME to [phone] [facility] [address] [address] [facility] [address] www.Makeover Solutions Samra Ku clinical counseling [address] [address] www.Ubiquity Global Services [phone] Holding space psychotherapy Raisa Perez BUSINESS PERFORMANCE ANALYST PUTTY MIXER AND APPLIER-S [address] [facility] www.Ziipa [phone]/ [place] [phone] They all offer virtual. All work with trauma Support groups Online support meetings PSI https://www..net/get-help/ xlx-gzkmje-nulcpjw-meetings/ Here are the support groups they offer: Support of parents of 1 to 4 years old children POEM ( Outreach and Encouragement for Moms) offers free support for mothers experiencing depression, anxiety, and other mood and anxiety disorders. Masks are recommended but not required. No pre-registration required. Babies in arms welcome. meetings now take place on the and Friday of each month Location: [facility] [address] [place] [address] Room 122 (library room) 7-8:00 p.m. When you enter the [facility] parking lot off of [address] the entrance door closest to our meeting room is on the front of the building toward the right. For those who are more comfortable with a virtual platform, POEM offers online support group options several days of the week. To register for an online group or to find out more about POEM, website at: https://mhaohio.org/get-help/materna d-libzsm-vqqxcu/poem-services/ offer a confidential helpline: private Facebook group is called JOSIANE Smith Here are the groups they offer: Traumatic childbirth resources: Http://pattch.org/ https://www.kathConversion Sound/ documented in this encounter [facility] 06-17-2024 Note HNO ID: [id number] Author: LEENA GAYTAN APRN.CNM Service: ? Author Type: Water Resources Technical Officer Type: Progress Notes Filed: 06/17/2024 14:17 Note Text: EARLY VISIT Beatris Fletcher is a 18 year old here for 3 week visit. Delivery Summary: 05/25/24 DM 1st degree ROS: General: Denies any fever or chills Hypertension Screening: Headache? Yes. Was it successfully treated with Tylenol? Minimal relief Visual Changes? No Epigastric Pain? No Increased Swelling? No Taking any BP medications at home? No If applicable, monitoring BP at home? (If Yes, include results) NA Mood: Increased anxiety over infant. Scared he will get sick, difficulty leaving infant OB Depression and Anxiety Screening- This Encounter (since 06/16/2024) None Feeding: pumping, bottle feeding problems: None Bladder: No dysuria, gross hematuria, urinary frequency, urinary urgency, or incontinence Bowel symptoms: Negative for abdominal discomfort, blood in stools or black stools and change in bowel habits Abdomen: N/A Bleeding: spotting Bottom and Perineum: Sore Sleep: sleep concerns and sleeps in bassinet/crib in parent's room, does not feel rested [place] since delivery: Not resumed Emotional support: Yes Exercise: N/A Other issues: None SENSITIVE EXAM: Sensitive exam not performed. PHYSICAL EXAMINATION: BP 96/64 Wt 72.6 kg (160 lb) LMP 08/21/2023 (Approximate) Yes BMI 27.04 kg/m? General: pleasant,female in no apparent distress, AANDO x 3. Skin warm and intact. Breast: Deferred Abdomen: Deferred /Incision: N/A Pelvic: Deferred Bimanual: Deferred ASSESSMENT AND PLAN: 18 year old status post with normal course. Contraception plan: not applicable. Reinforced 6-week pelvic rest. Encouraged condom usage should patient deviate. Discussed Mirena IUD/ ParaGard/ Nexplanon options for contraception and hand outs provided Anxiety - MH services provided- Consult Women's behavioral health Follow up: Return to Clinic for 6 week visit and as needed Leena aGytan APRN.CNM [facility] 06-17-2024 History of Present illness Narrative EARLY VISIT Beatris Fletcher is a 18 year old here for 3 week visit. Delivery Summary: 05/25/24 DM 1st degree ROS: General: Denies any fever or chills Hypertension Screening: Headache? Yes. Was it successfully treated with Tylenol? Minimal relief Visual Changes? No Epigastric Pain? No Increased Swelling? No Taking any BP medications at home? No If applicable, monitoring BP at home? (If Yes, include results) NA Mood: Increased anxiety over . Scared he will get sick, difficulty leaving infant OB Depression and Anxiety Screening- This Encounter (since 06/16/2024) None Feeding: pumping, bottle feeding problems: None Bladder: No dysuria, gross hematuria, urinary frequency, urinary urgency, or incontinence Bowel symptoms: Negative for abdominal discomfort, blood in stools or black stools and change in bowel habits Abdomen: N/A Bleeding: spotting Bottom and Perineum: Sore Sleep: sleep concerns and sleeps in bassinet/crib in parent's room, does not feel rested [place] since delivery: Not resumed Emotional support: Yes Exercise: N/A Other issues: None SENSITIVE EXAM: Sensitive exam not performed. PHYSICAL EXAMINATION: BP 96/64 Wt 72.6 kg (160 lb) LMP 08/21/2023 (Approximate) Yes BMI 27.04 kg/m General: pleasant,female in no apparent distress, A&O x 3. Skin warm and intact. Breast: Deferred Abdomen: Deferred /Incision: N/A Pelvic: Deferred Bimanual: Deferred ASSESSMENT AND PLAN: 18 year old status post with normal course. Contraception plan: not applicable. Reinforced 6-week pelvic rest. Encouraged condom usage should patient deviate. Discussed Mirena IUD/ ParaGard/ Nexplanon options for contraception and hand outs provided Anxiety - MH services provided- Consult Women's behavioral health Follow up: Return to Clinic for 6 week visit and as needed Leena Gaytan APRN.CNM documented in this encounter [facility] 05-27-2024 Note [facility] Medical Records Department [address] [place] [address] Discharge Summary 05/27/24 0711 MR#: [id number] Acct: [id number] Name: BEATRIS FLETCHER Rep #: [id number] : 2005 18 From: Amelia Maya MD PCP: Care Physician,No Primary Status:ADM IN Location: [facility]902-3 Providers Date of Admission: 05/25/24 Date of Discharge: 05/27/24 Primary Care Physician: No Primary Care Phys Reason For Visit: VAG Diagnosis Discharge Diagnosis (1) (spontaneous vaginal delivery): Status: Acute Code(s): O80 - Encounter for full-term uncomplicated delivery Plan Discharge home Medications at Discharge Home Medications vit no.95-ferrous fumarate 28 mg-folic acid 800 mcg tablet () 1 tab PO DAILY 03/21/24 pantoprazole 40 mg granules delayed-release for susp in packet (Protonix) 40 mg PO DAILY 05/25/24 sennosides 8.6 mg-docusate sodium 50 mg tablet (Stimulant Laxative Plus) 1 - 2 tab PO DAILY PRN PRN Constipation #30 tabs 05/27/24 Hospital Course Operations None Procedures None Summary of Care Provided Minutes Spent on Discharge: 20 Hospital Course: Admitted with active labor. without complication. Pumping and feeding Physical Exam Const alert and no apparent distress Narrative: Fundus firm, below umbilicus. Weight / BMI Weight Weight: 81.3 kg Body Mass Index (BMI) 30.7 ABG / Lab / Microbiology Data 05/25/24 11:37 D/C Instructions May resume sexual activity in: 6 weeks DC O2, CPAP, BIPAP Needs Home O2 Discharge instructions: No Please Follow Up With: Viri Parekh MD When: Follow up with our office in 1-2 and 6 weeks or as needed. [phone] Meaningful Use Info Meaningful Use Meaningful Use Diagnoses (Choose all that apply): None applicable Ischemic Stroke Statin Dosing Therapy Reference: STATIN DOSE THERAPY REFERENCE: * Patients > 75 years receive moderate or high dose statin therapy. * Patients 75 years or YOUNGER should receive HIGH intensity statin dose unless contraindicated. You will be required to document reason for non-treatment if statin daily dose does not meet guidelines. HIGH DOSE STATIN THERAPY DAILY Atorvastatin > than or = to 40 mg Rosuvastatin > than or = to 20 mg Amlodipine + Atorvastatin > than or = to 2.5/40 mg Ezetimibe + Simvastatin 10/80 mg Simvastatin 80mg Discharge Plan Admission Admit Date/Time: 05/25/24 11:24 Primary Reason for Your Visit: labor Attending Provider: Laxmi Simons Primary Care Provider: Care Physician,Josee Primary Discharge Orders/Prescriptions Prescriptions: New sennosides-docusate sodium [Stimulant Laxative Plus] 8.6-50 mg Tablet 1 - 2 tab PO DAILY PRN PRN (Reason: Constipation) Qty: 30 0RF Continued PNV cmb#95-ferrous fumarate-FA [] 28 mg iron- 800 mcg tablet 1 tab PO DAILY pantoprazole [Protonix] [address] for susp in packet 40 mg PO DAILY Discontinued aspirin 81 mg capsule 81 mg PO DAILY ondansetron 4 mg tablet,disintegrating 4 mg PO TID PRN (Reason: nausea and vomiting) Qty: 21 0RF Referrals / Follow Up: Care Physician,No Primary [Primary Care Provider] - Disposition Disposition (needs filled in before D/C Order can be placed): Home, Self Care 05/27/24 0716 Cosigner Signature (if applicable): CC: Dr. Amelia Maya MD; No Primary Care Physician Signed [facility] [place] 05-26-2024 Note HNO ID: [id number] Author: LULÚ LACY RN Service: ? Author Type: Registered Nurse Type: Progress Notes Filed: 05/26/2024 08:50 Note Text: Patient delivered via by Dr. Schuler on 05/25/24 at [facility]. See OB history. Lulú Lacy RN [facility] 05-26-2024 History of Present illness Narrative Patient delivered via by Dr. Schuler on 05/25/24 at [facility]. See OB history. Lulú Lacy RN documented in this encounter [facility] 05-26-2024 Telephone encounter Note Closing encounter. Patient delivered. Ld Duckworth MA [facility] 05-26-2024 Miscellaneous Notes Closing encounter. Patient delivered. Ld Duckworth MA documented in this encounter [facility] 05-25-2024 Telephone encounter Note Patient went to l&d for evaluation [facility] 05-25-2024 Miscellaneous Notes Patient went to l&d for evaluation 37w4d . Ob patient called c/o irregular contractions yesterday and this morning reports cramping and contractions coming approximately every 3 minutes and are lasting 45 seconds to 1 min and painful when they occur. Patient has not timed contractions for 1 hour yet. Patient denies lof, no VB, and baby is active. Please advise if patient needs to come to office to be seen or go to L&D in contractions remain regular. documented in this encounter [facility] 05-25-2024 Evaluation note Diagnosis Onset Date Resolution (spontaneous vaginal delivery) acute May 25 025 11:24am 37 weeks gestation of resolved May 25 11:24am History of depression resolved Niraj machuca 2024 11:24am Rubella non-immune status, antepartum resolved May 25, 2024 11:24am [facility] [place] Work Phone: [phone]) 206-123001-07-2025 Telephone encounter Note* Telephone Encounter - Nora Haile LPN - 05/25/2024 9:39 AM EST 37w4d . Ob patient called c/o irregular contractions yesterday and this morning reports cramping and contractions coming approximately every 3 minutes and are lasting 45 seconds to 1 min and painful when they occur. Patient has not timed contractions for 1 hour yet. Patient denies lof, no VB,and baby is active. Please advise if patient needs to come to office to be seen or go to L&D in contractions remain regular. [facility]12-31-2024 Progress note* Quick Notes - Laxmi Coleman MD - 05/18/2024 2:55 PM EST DM-Pt doing well. Denies vaginal Bleeding, Leaking fluid, or regular Contractions. Pt reports good movement Physical Exam: Gen: female in no apparent distress Abd: soft, Gravid. Non tender to palpation. See flow sheet Vertex on bedside ultrasound. The sensitive examination was discussed with the Patient or Patient's Authorized Receiver/Laborer. Asapplicable, any other physician, advance practice provider, medical student, or other health professional student that will be observing or involved in the sensitive examination for educational or training purposes was discussed with the Patient or Authorized Receiver/Laborer. The Patient or Authorized Receiver/Laborer has agreed to proceed with the sensitive examination. (Sensitive examination includes inspection and/or palpation of the breasts, pelvis, prostate and anorectal regions) @ 36.4 weeks Assessment & Plan Encounter for supervision of normal first in third trimester Orders: URINE OB DIP B/O ROUTINE, GROUP B STREP PCR Uterine size-date discrepancy in third trimester Growth us WNL Need for RSV vaccination Orders: RSV VACCINE, BIVALENT (ABRYSVO) 36 weeks gestation of Orders: ROUTINE, GROUP B STREP PCR Laxmi Simons MD [facility] Work Phone: 1(157) 789-648512-31-2024 Miscellaneous Notes* Quick Notes - Laxmi Coleman MD - 05/18/2024 2:55 PM EST DM-Pt doing well. Denies vaginal Bleeding, Leaking fluid, or regular Contractions. Pt reports good movement Physical Exam: Gen: female in no apparent distress Abd: soft, Gravid. Non tender to palpation. See flow sheet Vertex on bedside ultrasound. The sensitive examination was discussed with the Patient or Patient's Authorized Receiver/Laborer. Asapplicable, any other physician, advance practice provider, medical student, or other health professional student that will be observing or involved in the sensitive examination for educational or training purposes was discussed with the Patient or Authorized Receiver/Laborer. The Patient or Authorized Receiver/Laborer has agreed to proceed with the sensitive examination. (Sensitive examination includes inspection and/or palpation of the breasts, pelvis, prostate and anorectal regions) @ 36.4 weeks Assessment & Plan Encounter for supervision of normal first in third trimester Orders: URINE OB DIP B/O ROUTINE, GROUP B STREP PCR Uterine size-date discrepancy in third trimester Growth us WNL Need for RSV vaccination Orders: RSV VACCINE, BIVALENT (ABRYSVO) 36 weeks gestation of Orders: ROUTINE, GROUP B STREP PCR Laxmi Simons MD [facility] Instructions* Patient Instructions* Buzz Muhammad MA - 05/18/2024 2:30 PM EST SEQUENTIAL SCREENINGS The [facility] offers sequential screenings for women who are interested in screenings for chromosomal abnormalities and certain defects during a . The sequential screen combinesultrasound and blood tests to determine the risk [...] this testing. It will require an appointment withour animal health technician. This is not an ultrasound performed [...] the above symptoms, contact our office at [phone] and ask to speak with anurse. After hours, you can call doctors registry at [phone] OR call [facility] at [phone] ask to have the doctor quality control industrial engineer paged. If you consider this an emergency, dial 9--9 or go to your nearest emergency department. NEED HELP? Are you dealing with a violent or abusive relationship? Are you a victim of rape or sexual assult? Call [facility] ([place]) 24 hour Crisis Hotline: 719.257.3310 or [phone]. MANUAL Your Guide to a Healthy manual is now on-line. Visit [facility]org/HealthyPregnancyGuide to download your free copy [facility] Miscellaneous Notes* Quick Notes - Anitra Caldwell APRN.CNM - 05/11/2024 10:30 AM EST BAKARI-S: Beatris Fletcher is a 18 year old female who presents at 35w4d with RIKC:06/11/2024, by Ultrasoundfor a routine visit. Denies headache, visual changes, chest pain, shortness of breath, vaginal bleeding, leakage of fluid, or dysuria. Feeling well, no complaints. O: See flow sheet Gen: No apparent distress Abd: Gravid, nontender EFW 56th percentile, MAGNO 17 ASSESSMENT/PLAN: 1. Supervision of normal first teen in second trimester -Continue PNV and ASA -GBS next visit -Will have baby get RSV 2. Heartburn during in third trimester -Continue protonix 3. Rubella non-immune status, antepartum -Will get vaccination 4. History of depression -Coping well 5. Uterine size-date discrepancy in third trimester -Growth US 12/ normal PTL precautions reviewed and when to call RTO in one week Anitra Caldwell APRN.CNM [facility] Progress note* Quick Notes - Anitra Caldwell APRN.CNM - 05/11/2024 10:30 AM EST ISHAS: Beatris Fletcher is a 18 year old female who presents at 35w4d with RICK:06/11/2024, by Ultrasoundfor a routine visit. Denies headache, visual changes, chest pain, shortness of breath, vaginal bleeding, leakage of fluid, or dysuria. Feeling well, no complaints. O: See flow sheet Gen: No apparent distress Abd: Gravid, nontender EFW 56th percentile, MAGNO 17 ASSESSMENT/PLAN: 1. Supervision of normal first teen in second trimester -Continue PNV and ASA -GBS next visit -Will have baby get RSV 2. Heartburn during in third trimester -Continue protonix 3. Rubella non-immune status, antepartum -Will get vaccination 4. History of depression -Coping well 5. Uterine size-date discrepancy in third trimester -Growth US 12/ normal PTL precautions reviewed and when to call RTO in one week Anitra Caldwell APRN.CNM [facility]12-24-2024 Instructions* Patient Instructions* Anitra Caldwell APRN.CNM - 05/11/2024 10:26 AM EST Images from the original note were not included. _ Group B Strep In What is group B strep (GBS)? GBS is one of many common bacteria that live in the human body without causing harm in healthy people.GBS can be found in the intestine, rectum, and vagina in about 2 of every 10 women near the time of . GBS is not a sexually transmitted infection anddoes not cause any vaginal symptoms. When does GBS cause infection? GBS can cause your baby to get pneumonia or a blood infection if your baby gets GBS from your vagina during .Full-term babies whose mothers carry GBS in the vagina at the time of have a 1 in 200 chance of getting sick from GBS during the first few days after . Women who have GBS in their vagina during labor can get an infection in their uterus. How do I know if I carry GBS? Some women have GBS all the time. In many women, it grows in the vagina at times then goes away andcomes back again later. During a visit when you are between 35 and 37 weeks , you or your health care provider will collect a sample by touching the outer part of your vagina and just inside the anus with a sterile Q-tip. If GBS grows from that sample, you will be told that you carry GBS and this will be recorded in your chart. You or your provider can write the test results in the box on the next page so you have a record. How can infection from GBS be prevented? If your culture is positive for GBS within 5 weeks of giving , it is very likely that you willstill have GBS in your vagina when you go into labor.Your health care provider will recommend that you receive the antibiotic penicillin during labor. GBS is very sensitive to penicillin and is easily removed from the vagina. A few IV doses of penicillin given up to 4 hours before almost always prevents your baby from picking up GBS during . Do I have to wait for labor to take penicillin? GBS is usually not harmful to you or your baby before you are in labor.GBS is easy to remove from the vagina, but iti s not easy to remove from the intestine.If you take penicillin before you are in labor,GBS will return to the vagina as soon as you stop taking the medication, which does not get rid of GBS in your intestine. It is best to take penicillin during labor when it can get rid of the GBS in your vagina quickly and best prevent your baby from getting sick. The one exception is that GBScan occasionally cause a urinary tract infection during . If you get a urinary tract infection, you should be treated with antibiotics at that time.You should also receive penicillin again when you are in labor. What if I don t have time to get penicillin while I m in labor? If you carry GBS in your vagina at the time of and are not able to receive penicillin before your baby is born, your baby will be watched closely for signs of GBS infection. Almost all babies who develop GBS infection will show signs within 24 hours of being born. How do I know if my baby has a GBS infection? If your baby gets a GBS infection, symptoms include difficulty breathing (including grunting or being pale), problems with temperature (too cold or too hot), difficulty with more spitting up than usual, or extreme sleepiness that interferes with . What is the treatment if my baby has a GBS infection? If the infection is caught early and your baby is full-term, most babies will completely recover with IV antibiotic treatment. Of the babies who get sick, about 1 in 6 can have serious complications.Some babies who are very sick will .In most cases, if you carry GBS in the vagina at the time ofbirth and are given IV penicillin in labor, the risk of your baby getting sick is very rare (about 1 in 4,000). What if I m allergic to penicillin? Penicillin is the best antibiotic for preventing GBS infection. However, women who are allergic to penicillin can receive different antibiotics during labor.Tell your health care provider if you are allergic to penicillin and what symptoms you had when you had that allergic reaction. For More Information: Centers for Disease Control and Prevention: www.cdc.gov/groupbstrep/ July of Dimes http://www.marchofdimes.org//g wkjn-t-lodtx-infection.aspx Preparing for labor: Eat dates to promote spontaneous labor! Has an oxytocin-like effect on the body, leading to increased sensitivity of the uterus. Stimulates uterine contractions. Reduces hemorrhage the way oxytocin does. Date fruit contains saturated and unsaturated fatty acids such as oleic, linoleic, and linolenic acids, which are involved in saving and supplying energy and construction of prostaglandins. In addition, serotonin, tannin, and calcium in date fruit contribute to the contraction of smooth muscles of the uterus. Date fruit also has a laxative effect, which stimulates uterine contractions. Six dates per day is the magic number--provided that you re eating smaller deglet noor dates. Deglet noor dates are about 1 inch long. Medjool dates can be up to 2 inches long. If you re eating medjool dates, you only need about 3 dates to reach the 75 grams recommended in the studies. Not sure which type of date you have in your refrigerator? It s probably a deglet noor. How to Eat Dates During Dates are a healthy and delicious snack, so how can you add them to your diet? Add dates during in this awesome oatmeal recipe. Add dates to replace sugar in your favorite recipe or to suzy your homemade almond milk. Use dates and nuts to make an easy pie crust in the bacteriologist food. Add soaked dates to homemade nut butter for a sweet treat. Add dates to suzy homemade salad dressing. Add dates during easily with these yummy (paleo friendly) bars made from dates. What Is Red Raspberry [place] Tea? Red raspberry leaf tea comes from the leaves of the red raspberry plant. This herbal tea has been used for centuries to support respiratory, digestive and uterine health, particularly during and childbearing years. While usually known as a female herb, red raspberry leaf tea can also helpsupport the prostate and various stomach ailments in children. How It Can Help and Red raspberry leaf tea can help to make labor faster and reduce complications and interventions during . One study found that women who consumed RRL tea regularly are less likely to go overdue or give prematurely. These women may also be less likely to receive an artificial rupture of their membranes or require a section, forceps, or vacuum than the women in the control group. Red raspberry leaf has many other benefits to , , and too. How Much Red Raspberry [place] Tea to Drink? With your doctor or scientific helper s approval, start with 1 cup of red raspberry leaf tea per day startingin the second trimester. Watch for any uterine cramping or other reactions. If you don t experienceany, you can talk to your healthcare provider about increasing to 2 cups per day. Again, watch for any uterine cramping. If you notice any, cut back on your dosage for two weeks and try again. Keep in mind, some moms have irritable uteruses and can only drink red raspberry leaf tea once theyreach their due date because of uterine cramping. Is Red Raspberry [place] Tea the Same as Raspberry [place] Tea? How About Plain Old Raspberry Tea? Sometimes. You really need to look at the ingredients to be sure. Note that there is no difference between red raspberry leaf and raspberry leaf. Ellie Op or Traditional [employer] Raspberry [place] Tea are two good brands. The red raspberry leaf teas that we recommend are 100% red raspberry leaf. Other teas labeled as raspberry are often a blend of rosehips, hibiscus, raspberry leaves, and raspberry flavor. So they maynot be as effective. The teas to avoid are raspberry-flavored herbal teas, which may have ingredients like hibiscus, jaycee hips, apples, elderberries, natural and artificial raspberry flavors. Teas like this don t containraspberry leaf at all and thus won t offer any of the potential benefits of RRLT outlined in this article. The [employer] www.Events Core I named this 'circuit' after my friend Hayley Sen, who shared and discussed it with me when I was working with a client whose labor seemed to be stalled out and no longer progressing... This circuit is useful to help get the baby lined up, ideally, in the Left Occiput Anterior (BRET) Position, both before labor begins and when some corrections need to be done during labor. Prenatally, this position set can help to rotate a baby. As a natural method of induction, this can help get things going if baby just needed a gentle nudge of position to set things off. To the best of my knowledge, this group of positions will not hurt a baby that is already lined up correctly. - April Saab Before you Begin..... This circuit takes at least 90 minutes to complete so clear your schedule and make mental preparations so you can relax in your environment. The second step requires a lot of pillows so gather them up before beginning Before starting, you should empty your bladder! Have a nice drink nearby, and make sure it has a straw! If you are having contractions, this circuit should bedone through contractions, try not to change positions between steps Step One: Open-knee Chest Stay in this position for 30 minutes, start in cat/cow, then drop your chest as low as you can to the bed or the floor and your bottom as high as you can. Knees should be fairly wide apart, and the angle between the torso/thighs should be wider than 90 degrees. Wiggle around, prop with lots of pillows and use this time to get totally relaxed.This position allows the baby to scoot out of the pelvis a bit and gives them room to rotate, shift their head position, etc. If the person finds it helpful,careful positioning with a rebozo under the belly, with gentle tension from a support person behindcan help maintain this position for the full 30minutes. Step Two: Exaggerated Left Side Lying Roll to your left side, bringing your top leg as high as possible and keeping your bottom leg straight. Roll forward as much as possible,again using a lot of pillows. Sink into the bed and relax somemore. If you fall asleep, that's totally okay and you can stay there! If not, stay here for at least another half an hour. Try and get your top right leg up towards your head and get as rolled over onto your belly as much as possible. If you repeat the circuit during labor, try alternating left and right sides. We know the photo the left is actually right side... just flip the image in your head. Step Three: Moving and Lunges Lunge, walk stairs facing sideways, 2 at a time, (have a pupil personnel worker downstairs of you!), take a walk outside with one foot on the curb and the other on the street, sit on a ball and hula- anything that's upright and putting your pelvis in open, asymmetrical positions. Spend at least 30 minutes doing this one as well to give your baby a chance to move down. If you are lunging or stair or curb walking, you should lunge/walk/go up stairs in the direction that feels better to you. The yuan with the lunge is that the toes of the higher leg and mom's belly button should be at right angles. Do not lunge over your knee, that closes the pelvis. Hayley Sen: Circuit Creator - www.InnerWirelessbirthcollFOURward Thought.Torbit April Saab CD, BDT (BEBA), LCCE, FACCE: Supporting Content - www.Banter! Pramod Lane: Photography - www.pramodAllergen Research Corporation.Torbit Kristen Anderson CD/CDT (LISSY): Print and Honey Grader And Blender - www.letitbebirth.com Miles Circuit Masterminds The Click4Ride www.Global [employer].Torbit PERINEAL MASSAGE GOAL: Often, the perineum, or the area between a vaginal opening and anus, is damaged during labor and delivery of the baby. This area has a lot of muscles and tissue. It is very common to have obstetric lacerations or tears, especially in first-time mothers, but can happen in subsequent pregnancies as well. However, massages directed to the perineal area have been shown to reduce the amount of damage and the need for an episiotomy, which was an incision that is made if the muscles are too tight to allow delivery of the baby s head. ADVANTAGES: -It can increase the stretchiness of the perineal tissue and muscles. -It can increase blood flow to this area, which helps with healing and pain. -It can reduce tears or the severity of such tears during childbirth -It can be help patients understand muscle control and relaxation of these muscles prior to childbirth TIMING/DURATION: - 10 minutes of daily massage starting at 34-36 weeks of gestation until hospitalization for labor/delivery of the . -It can be helpful to complete the massage after bathing as there is more blood flow to this area during that time. MASSAGE METHOD: Place a small amount of lubricant on your thumb. Start by placing your thumb about 2 inches into the vagina. Then begin sweeping downward and sideways between 9 o clock to 3 o clock until you feel a burning, tingling or stinging sensation. When you feel those sensations, hold your thumb at that spot until the area feels numb (Ugwu) Do not massage the 12 o clock position because this is where the urethra (where you urinate) is located and massaging this area can be painful ([employer] and Amada44) CONSIDERATIONS: Please do not complete if your water has broken as the massage could potentially increase the risk for infection Please do not complete if you are having an ongoing yeast or other vaginal infection Please avoid if you have vaginal herpes. RESOURCES: perineal massage. [facility]: [facility]. [employer] and Amada44 - Own work based on: Diagram showing the anatomy of the vulva ARTIE Mendez.svg by [employer].., CC BY-SA 3.0, https://commons.wikiAffaredelgiornoa.org/w/index.php?uexzk=75878332 Faustino Database of Systematic Reviews . perineal massage for reducing perineal trauma. [place] Systematic Review - Intervention Version published: 15 September 2012. https://doi-org.ccmain.illinoisnet.org/10.1002/94090148.MT172381.pub3 Galindo Cid et al. Effectiveness of perineal massage in reducing perineal trauma and post- morbidities: A randomized controlled trial: Journal of Obstetrics and Gynecology Research. 44 (3). 0620-6842. 2018. SIGNS AND SYMPTOMS OF LABOR 1. Contractions every 10 minutes or more often 2. Clear, pink, or brownish fluid (water) leaking from vagina 3. Feeling that baby is pushing down, pressure 4. Low, dull backache 5. Cramps that feel like a period 6. Cramps with or without diarrhea If you notice any of the above symptoms, contact our office at [phone] and ask to speak with anurse. After hours, you can call doctors registry at [phone] OR call [facility] at [phone] ask to have the doctor quality control industrial engineer paged. If you consider this an emergency, dial 0-1- or go to your nearest emergency department. NEED HELP? Are you dealing with a violent or abusive relationship? Are you a victim of rape or sexual assult? Call [facility] [place] ([facility] 24 hour Crisis Hotline: 911.906.6161 or 774-534-5191. MANUAL Your Guide to a Healthy manual is now on-line. Visit [email or web address]/[email or web address] to download your free copy documented in this encounterOhio [facility]12-[facility] Instructions* Patient Instructions* Ld Duckworth MA - 05/05/2024 1:43 PM EST SEQUENTIAL SCREENINGS The [facility] offers sequential screenings for women who are interested in screenings for chromosomal abnormalities and certain defects during a . The sequential screen combinesultrasound and blood tests to determine the risk [...] this testing. It will require an appointment withour animal health technician. This is not an ultrasound performed [...] the above symptoms, contact our office at [phone] and ask to speak with anurse. After hours, you can call doctors registry at [phone] OR call [facility] at [phone] ask to have the doctor quality control industrial engineer paged. If you consider this an emergency, dial 5-2-6 or go to your nearest emergency department. NEED HELP? Are you dealing with a violent or abusive relationship? Are you a victim of rape or sexual assult? Call [facility] ([place]) 24 hour Crisis Hotline: 897.472.9101 or 858-163-4581. MANUAL Your Guide to a Healthy manual is now on-line. Visit [email or web address] to download your free copy documented in this encounterOhio [facility]12-18-2024 Progress note* Quick Notes - Leena Gaytan APRN.CNM - 05/05/2024 12:38 PM EST CP- CENTERING S: Beatris Fletcher is a 18 year old female who presents at 34 weeks gestation for a routine visit/centering group. Denies headache, visual changes, chest pain, shortness of breath, vaginal bleeding, leakage of fluid, or dysuria. Heartburn improved since taking Protonix. O: See flow sheet Gen: No apparent distress Abd: Gravid, non tender ASSESSMENT/PLAN: 1. 34 weeks gestation of - ICD9: V22.2, ICD10: Z3A.34 (primary diagnosis) 2. Encounter for supervision of normal first in third trimester - ICD9: V22.0, ICD10: Z34.03 3. Rubella non-immune status, antepartum - ICD9: 646.83, V15.83, ICD10: O09.899, Z28.39 4. Heartburn during in third trimester - ICD9: 646.83, 787.1, ICD10: O26.893, R12 - Continue Protonix 20 mg XL - Continue vitamin - ASA - PTL precautions reviewed and when to call office - RTO 1 week for YONY with GBS Leena Gaytan APRN.CNM [facility]12-18-2024 Miscellaneous Notes* Quick Notes - Leena Gaytan APRN.CNM - 05/05/2024 12:38 PM EST CP- CENTERING S: Beatris Fletcher is a 18 year old female who presents at 34 weeks gestation for a routine visit/centering group. Denies headache, visual changes, chest pain, shortness of breath, vaginal bleeding, leakage of fluid, or dysuria. Heartburn improved since taking Protonix. O: See flow sheet Gen: No apparent distress Abd: Gravid, non tender ASSESSMENT/PLAN: 1. 34 weeks gestation of - ICD9: V22.2, ICD10: Z3A.34 (primary diagnosis) 2. Encounter for supervision of normal first in third trimester - ICD9: V22.0, ICD10: Z34.03 3. Rubella non-immune status, antepartum - ICD9: 646.83, V15.83, ICD10: O09.899, Z28.39 4. Heartburn during in third trimester - ICD9: 646.83, 787.1, ICD10: O26.893, R12 - Continue Protonix 20 mg XL - Continue vitamin - ASA - PTL precautions reviewed and when to call office - RTO 1 week for YONY with GBS Leena Gaytan APRN.CNM documented in this encounterOhio State [facility]12-05-2024 Telephone encounter Note * Telephone Encounter - Amelia Armstrong RN - 04/22/2024 9:22 AM EST 3rd risk assessment form submitted 04/22/2024. Amelia Armstrong RN [facility]12-05-2024 Miscellaneous Notes* Telephone Encounter - Amelia Armstrong RN - 04/22/2024 9:22 AM EST 3rd risk assessment form submitted 04/22/2024. Amelia Armstrong RN documented in this encounterOhio State [facility]12-04-2024 Note Indication Follow-up evaluation for placental location Impression REMOTE READ - Single, live, intrauterine . - The biometry is consistent with the assigned gestational dating. - The EFW is 2144 g, at the 56%. AC is at the 77%. - The amniotic fluid volume is normal amount with an MVP of 6 cm and an MAGNO of 17.6 cm. - The placenta is anterior, fundal. TV ultrasound shows resolution of low lying placenta with no vessels overlying the cervical os. - No malformations visualized on a limited survey as detailed below. Recommendations Additional follow-up as clinically indicated. Maternal Assessment Height 165 cm Height (ft) 5 ft Height (in) 5 in Physical Exam Initial weight (lb) 130 lb Initial BMI 21.63 kg/m Maternal assessment other: 1 Para 0 Method Transabdominal and transvaginal ultrasound examination [place] . Number of fetuses: 1 Dating LMP on: 08/21/2023 GA by LMP 34 w + 6 d RICK by LMP: 05/27/2024 GA by prior assessment 32 w + 5 d RICK by prior assessment: 06/11/2024 Ultrasound examination on: 04/21/2024 GA by U/S based upon: AC, BPD, Femur, HC GA by U/S 32 w + 5 d RICK by U/S: 06/11/2024 Assigned: based on stated RICK, selected on 01/23/2024 Assigned GA 32 w + 5 d Assigned RICK: 06/11/2024 General Evaluation Cardiac activity present. FHR 130 bpm. movements: present. Presentation: cephalic Placenta: Placental site: anterior, fundal Umbilical cord: Cord vessels: 3 vessel cord Amniotic fluid: Amount of AF: normal amount. MVP 6.0 cm. MAGNO 17.6 cm. Q1 2.6 cm, Q2 4.6 cm, Q3 6.0 cm, Q4 4.4 cm Growth Overview Exam date GA BPD (mm) HC (mm) AC (mm) FL (mm) HL (mm) EFW (g) 01/23/2024 20w 0d 47.2 62% 180.8 65% 160.2 80% 33 74% 32.7 87% 372 82% 04/21/2024 32w 5d 80.7 34% 295.7 32% 297 77% 63.4 66% 2144 56% Biometry Standard BPD 80.7 mm 32w 3d 34% Hadlock OFD 104.4 mm 30w 6d 25% Nicolaides HC 295.7 mm 31w 6d 32% Shabbir AC 297.0 mm 33w 5d 77% Hadlock Femur 63.4 mm 32w 4d 66% Shabbir EFW 2,144 g 32w 6d 56% Hadlock EFW (lb) 4 lb EFW (oz) 12 oz EFW by: Hadlock (HC-AC-FL) Extremities / Bony Struc FL / HC 0.21 Other Structures FHR 130 bpm Anatomy Lateral ventricles: normal Cavum septi pellucidi: normal Cerebellum: normal Cisterna magna: normal 4-chamber view: normal RVOT view: normal LVOT view: normal 3-vessel view: normal Heart / Thorax Situs: situs solitus (normal) Diaphragm: normal Stomach: normal Kidneys: normal Bladder: normal sex: male Wants to know sex: yes Performed By: Dyan Partida RDMS, RVT Read By: Deandra Reza M.D.MATERNAL [id number] Miscellaneous Notes* Quick Notes - Leena Gaytan APRN.CNM - 04/21/2024 2:30 PM EST CP- MISHEL S: Beatris Fletcher is a 18 year old female who presents at 32 weeks for Centering group/routine visit. Denies headache, visual changes, chest pain, shortness of breath, vaginal bleeding, leakage of fluid, or dysuria. Continues to have acid reflux with minimal relief from Pepcid. O: See flow sheet Gen: No apparent distress Abd: Gravid, non tender ASSESSMENT/PLAN: 1. 32 weeks gestation of 2. Encounter for supervision of normal first in third trimester 3. Low-lying placenta - ICD9: 641.10, ICD10: O44.40 4. Heartburn in - third trimester 5. Rubella non immune - Ultrasound today- Placenta is FUNDAL- no longer low lying - Rx Protonix 20 mg XL BID - MMR post - PTL precautions reviewed RTO 2 weeks Leena Gaytan APRN.CNM documented in this encounterOhio [facility]12-04-2024 Progress note* Quick Notes - Leena Gaytan APRN.CNM - 04/21/2024 2:30 PM EST CP- MISHEL S: Beatris Fletcher is a 18 year old female who presents at 32 weeks for Centering group/routine visit. Denies headache, visual changes, chest pain, shortness of breath, vaginal bleeding, leakage of fluid, or dysuria. Continues to have acid reflux with minimal relief from Pepcid. O: See flow sheet Gen: No apparent distress Abd: Gravid, non tender ASSESSMENT/PLAN: 1. 32 weeks gestation of 2. Encounter for supervision of normal first in third trimester 3. Low-lying placenta - ICD9: 641.10, ICD10: O44.40 4. Heartburn in - third trimester 5. Rubella non immune - Ultrasound today- Placenta is FUNDAL- no longer low lying - Rx Protonix 20 mg XL BID - MMR post - PTL precautions reviewed RTO 2 weeks Leena Gaytan APRN.CNM [facility]12-04-2024 Instructions* Patient Instructions* Ld Duckworth MA - 04/21/2024 2:04 PM EST SEQUENTIAL SCREENINGS The [facility] offers sequential screenings for women who are interested in screenings for chromosomal abnormalities and certain defects during a . The sequential screen combinesultrasound and blood tests to determine the risk [...] this testing. It will require an appointment withour animal health technician. This is not an ultrasound performed [...] the above symptoms, contact our office at [phone] and ask to speak with anurse. After hours, you can call doctors registry at [phone] OR call [facility] at [phone] ask to have the doctor quality control industrial engineer paged. If you consider this an emergency, dial 9-3-9 or go to your nearest emergency department. NEED HELP? Are you dealing with a violent or abusive relationship? Are you a victim of rape or sexual assult? Call [facility] ([place]) 24 hour Crisis Hotline: 891.432.2525 or 963-969-7093. MANUAL Your Guide to a Healthy manual is now on-line. Visit [email or web address] to download your free copy documented in this encounterOhio State [facility]11-18-2024 NoteHNO ID: [id number] Author: ZAIN KEARNEY JEFF Service: ? Author Type: Physical Therapist Type: Progress Notes Filed: 04/05/2024 07:11 Note Text: 04/05/2024 [facility] PHYSICAL THERAPY DISCONTINUANCE OF CARE Plan of Care Period: Start of Care Date: 08/19/23 Last Visit Date: 09/02/2023 Therapy Program: The following is a summary of the interventions provided for this episode of care; Therapeutic exercise and Neuromuscular re-education Assessment: Based on most recent visit, patient was progressing as expected toward functional goals based on pain levels and documented subjective information on progress. Unable to formally assess goal achievement, as patient has not returned to therapy or scheduled additional follow-up appointments. Reason for Discontinuation of Care: Patient has not returned to therapy or scheduled additional follow-up appointments. Zain Kearney, [facility]11-11-2024 Progress note* Quick Notes - Leena Gaytan APRN.CNM - 03/29/2024 3:42 PM EST S: Beatris Fletcher is a 18 year old female who presents at 29 weeks gestation for a routine visit. Positive movements. Denies headache, visual changes, chest pain, shortness of breath, vaginal bleeding, leakage of fluid, or dysuria. Feeling well, no complaints. Took out bilateral nipple rings and wants to verify there is no infection. O: See flow sheet Gen: No apparent distress Abd: Gravid, non tender BREAST- bilateral piercings removed. No erythema ASSESSMENT/PLAN: 1. 29 weeks gestation of - ICD9: V22.2, ICD10: Z3A.29 (primary diagnosis) 2. Encounter for supervision of normal first in third trimester - ICD9: V22.0, ICD10: Z34.03 3. Rubella non-immune status, antepartum - ICD9: 646.83, V15.83, ICD10: O09.899, Z28.39 4. Low-lying placenta - ICD9: 641.10, ICD10: O44.40 - Repeat US at next visit to evaluate placenta - Growth - Continue vitamin daily - MMR post - PTL precautions reviewed - RTO 2 weeks Leena Gaytan APRN.CNM [facility]11-11-2024 Miscellaneous Notes* Quick Notes - Leena Gaytan APRN.CNM - 03/29/2024 3:42 PM EST S: Beatris Fletcher is a 18 year old female who presents at 29 weeks gestation for a routine visit. Positive movements. Denies headache, visual changes, chest pain, shortness of breath, vaginal bleeding, leakage of fluid, or dysuria. Feeling well, no complaints. Took out bilateral nipple rings and wants to verify there is no infection. O: See flow sheet Gen: No apparent distress Abd: Gravid, non tender BREAST- bilateral piercings removed. No erythema ASSESSMENT/PLAN: 1. 29 weeks gestation of - ICD9: V22.2, ICD10: Z3A.29 (primary diagnosis) 2. Encounter for supervision of normal first in third trimester - ICD9: V22.0, ICD10: Z34.03 3. Rubella non-immune status, antepartum - ICD9: 646.83, V15.83, ICD10: O09.899, Z28.39 4. Low-lying placenta - ICD9: 641.10, ICD10: O44.40 - Repeat US at next visit to evaluate placenta - Growth - Continue vitamin daily - MMR post - PTL precautions reviewed - RTO 2 weeks Leena Gaytan APRN.CNM documented in this encounterOhio [facility]11-[facility] Instructions* Patient Instructions* Roro Sanz MA - 03/29/2024 3:30 PM EST SEQUENTIAL SCREENINGS The [facility] offers sequential screenings for women who are interested in screenings for chromosomal abnormalities and certain defects during a . The sequential screen combinesultrasound and blood tests to determine the risk [...] this testing. It will require an appointment withour animal health technician. This is not an ultrasound performed [...] the above symptoms, contact our office at [phone] and ask to speak with anurse. After hours, you can call doctors registry at [phone] OR call [facility] at [phone] ask to have the doctor quality control industrial engineer paged. If you consider this an emergency, dial 9-1-7 or go to your nearest emergency department. NEED HELP? Are you dealing with a violent or abusive relationship? Are you a victim of rape or sexual assult? Call [facility] ([place]) 24 hour Crisis Hotline: 713.745.9392 or 056-924-0437. MANUAL Your Guide to a Healthy manual is now on-line. Visit [email or web address] to download your free copy documented in this encounterOhio [facility]11-07-2024 Telephone encounter Note * Telephone Encounter - Dyan Somers RN - 03/25/2024 3:04 PM EST Lab notified along with patient. Dyan Somers RN [facility]11-07-2024 Miscellaneous Notes* Telephone Encounter - Dyan Somers RN - 03/25/2024 3:04 PM EST Lab notified along with patient. Dyan Somers RN * Telephone Encounter - Pramod Romero APRN.CNP - 03/25/2024 2:58 PM EST Even if 3 hour is elevated, passed GTT. 2 hour is 60. Patient does not need do have last draw - recommend eating something. Please call lab/notify patient. Pramod Romero APRN.CNP documented in this encounterOhio [facility] University [facility]11-07-2024 Telephone encounter Note * Telephone Encounter - Pramod Romero APRN.CNP - 03/25/2024 2:58 PM EST Even if 3 hour is elevated, passed GTT. 2 hour is 60. Patient does not need do have last draw - recommend eating something. Please call lab/notify patient. Pramod Romero APRN.CNP [facility]11-01-2024 Telephone encounter Note* Telephone Encounter - Amelia Martinez RN - 03/19/2024 2:47 PM EDT Called patient. OB visit scheduled. Amelia Martinez RN [facility]11-01-2024 Miscellaneous Notes* Telephone Encounter - Amelia Martinez RN - 03/19/2024 2:47 PM EDT Called patient. OB visit scheduled. Amelia Martinez, RN * Telephone Encounter - Anitra Caldwell APRN.CNM - 03/19/2024 1:01 PM EDT Can you please assist patient in getting YONY visit 2 weeks from last visit. She is not scheduled. This will need scheduled out side of centering due to gestational age. Thanks, Anitra Caldwell APRN.CNM documented in this encounterOhio [facility] University [facility]11-01-2024 Telephone encounter Note * Telephone Encounter - Anitra Caldwell APRN.CNM - 03/19/2024 1:01 PM EDT Can you please assist patient in getting YONY visit 2 weeks from last visit. She is not scheduled. This will need scheduled out side of centering due to gestational age. Thanks, Anitra Caldwell APRN.CNM [facility]11-01-2024 Progress note* Quick Notes - Anitra Caldwell APRN.CNM - 03/19/2024 12:55 PM EDT BAKARI-S: Beatris Fletcher is a 18 year old female who presents at 27w4d with RICK: 06/11/2024, by Ultrasound for a routine visit. Denies headache, visual changes, chest pain, shortness of breath, vaginal bleeding, leakage of fluid, or dysuria. Feeling well, no complaints. O: See flow sheet Gen: No apparent distress Abd: Gravid, nontender ASSESSMENT/PLAN: 1. Supervision of normal first teen in second trimester - 1 hour GCT, CBC, and RPR no completed today. Orders in place and will return this week to complete. - A positive - LARC form reviewed and signed. Patient decline - Opioid screen negative - plan form discussed and given to patient. Patient desires unmedicated 2. Need for vaccination - TDAP today 3. Heartburn during in third trimester -Will start Pepcid 40mg PO once daily 4. Low-lying placenta Repeat US at 32 weeks 5. Rubella non-immune status, antepartum -Consider vaccine PP 6. Generalized anxiety disorder - Depression screen negative 7. History of depression - Depression screen negative PTL precautions reviewed and when to call RTO in 2 weeks Anitra Caldwell APRN.CNM [facility]11-01-2024 Miscellaneous Notes* Quick Notes - Anitra Caldwell APRN.CNM - 03/19/2024 12:55 PM EDT BAKARI-S: Beatris Fletcher is a 18 year old female who presents at 27w4d with RICK: 06/11/2024, by Ultrasound for a routine visit. Denies headache, visual changes, chest pain, shortness of breath, vaginal bleeding, leakage of fluid, or dysuria. Feeling well, no complaints. O: See flow sheet Gen: No apparent distress Abd: Gravid, nontender ASSESSMENT/PLAN: 1. Supervision of normal first teen in second trimester - 1 hour GCT, CBC, and RPR no completed today. Orders in place and will return this week to complete. - A positive - LARC form reviewed and signed. Patient decline - Opioid screen negative - plan form discussed and given to patient. Patient desires unmedicated 2. Need for vaccination - TDAP today 3. Heartburn during in third trimester -Will start Pepcid 40mg PO once daily 4. Low-lying placenta Repeat US at 32 weeks 5. Rubella non-immune status, antepartum -Consider vaccine PP 6. Generalized anxiety disorder - Depression screen negative 7. History of depression - Depression screen negative PTL precautions reviewed and when to call RTO in 2 weeks Anitra Caldwell APRN.CNM documented in this encounterOhio [facility]10-31-2024 NoteHNO ID: [id number] Author: NEETA REY PA-C Service: ? Author Type: Physician Toddler Nanny Type: Progress Notes Filed: 03/18/2024 13:36 Note Text: This note was created using [employer]. Subjective Beatris Fletcher is a 18 year old female. HPI Patient presents with the chief complaint of sore throat and nasal congestion. Sore throat started yesterday and this morning nasal congestion started as well. No cough. No chest pain or shortness of breath. No ear pain. She is currently almost 28 weeks . Denies abdominal pain, bleeding, fluid leakage, vomiting or diarrhea. No fever. Review of Systems Constitutional: Negative for fever. HENT: Positive for congestion and sore throat. Negative for ear pain, sinus pressure and sinus pain. Respiratory: Negative for cough and wheezing. Cardiovascular: Negative. Gastrointestinal: Negative. Genitourinary: Negative. Musculoskeletal: Negative. All other systems reviewed and are negative. PAST MEDICAL HISTORY Diagnosis Date Anemia Depression/anxiety Ganglion cyst of wrist, left Irregular menses Current Outpatient Medications Medication Sig Dispense Refill aspirin, enteric coated (ECOTRIN LOW STRENGTH) 81 mg EC tablet Take 1 tablet by mouth once daily. 90 tablet 3 pyridoxine, vitamin B6, (VITAMIN B-6) 50 mg tablet Take 50 mg by mouth once daily. Zvdiflsg-Qb-Ghj-Fe-FA tab Take 1 tablet by mouth once daily. With folic acid and DHA as covered by insurance. 30 tablet 11 ondansetron orally disintegrating (ZOFRAN ODT) 4 mg disintegrating tablet EVERY 8 HOURS NEEDED as needed for Nausea No current facility-administered medications for this visit. PAST SURGICAL HISTORY Procedure Laterality Date DENTAL SURGERY HX 2015 ORTHOPEDICS SURGERY HX knee torn meniscus WRIST Left cyst on left wrist FAMILY [...] Never Smokeless tobacco: Never Vaping Use Vaping status: Former Quit date: 05/19/2021 Substance Use Topics Alcohol use: Not Currently Comment: occasionally Drug use: No Objective BP 107/69 Pulse 97 Temp 36.1 ?C (96.9 ?F) Resp 20 Wt 73.3 kg (161 lb 9.6 oz) LMP 08/21/2023 (Approximate) SpO2 99% BMI 27.31 kg/m? Physical Exam Vitals reviewed. Constitutional: Appearance: Normal appearance. HENT: Head: Normocephalic and atraumatic. Right Ear: Tympanic membrane, ear canal and external ear normal. Left Ear: Tympanic membrane, ear canal and external ear normal. Nose: Congestion present. Mouth/Throat: Mouth: Mucous membranes are moist. Pharynx: Posterior oropharyngeal erythema present. No pharyngeal swelling, oropharyngeal exudate or uvula swelling. Tonsils: No tonsillar exudate or tonsillar abscesses. Cardiovascular: Rate and Rhythm: Normal rate and regular rhythm. Heart sounds: Normal heart sounds. Pulmonary: Effort: Pulmonary effort is normal. Breath sounds: Normal breath sounds. Musculoskeletal: Cervical back: Neck supple. Skin: General: Skin is warm and dry. Neurological: General: No focal deficit present. Mental Status: She is alert. Assessment and Plan ASSESSMENT/PLAN: 1. Viral URI - ICD9: 465.9, ICD10: J06.9 - Discussed viral etiology and rationale for treatment. - Symptomatic treatment with prn analgesia with tylenol, avoid nsaids in . - Supportive care with fluids and rest . - Follow up in 3-5 days if symptoms persist or sooner if worsening of symptoms - COVID AND INFLUENZA A/B AND RSV PCR, ROUTINE - STREP A MOLECULAR (POC) [facility]10-31-2024 History of Present illness Narrative* Neeta Rey PA-C - 03/18/2024 1:34 PM EDT This note was created using [employer]. Subjective Beatris Fletcher is a 18 year old female. HPI Patient presents with the chief complaint of sore throat and nasal congestion. Sore throat started yesterday and this morning nasal congestion started as well. No cough. No chest pain or shortness ofbreath. No ear pain. She is currently almost 28 weeks . Denies abdominal pain, bleeding, fluid leakage, vomiting or diarrhea. No fever. Review of Systems Constitutional: Negative for fever. HENT: Positive for congestion and sore throat. Negative for ear pain, sinus pressure and sinus pain. Respiratory: Negative for cough and wheezing. Cardiovascular: Negative. Gastrointestinal: Negative. Genitourinary: Negative. Musculoskeletal: Negative. All other systems reviewed and are negative. PAST MEDICAL HISTORY Diagnosis Date Anemia Depression/anxiety Ganglion cyst of wrist, left Irregular menses Current Outpatient Medications Medication Sig Dispense Refill aspirin, enteric coated (ECOTRIN LOW STRENGTH) 81 mg EC tablet Take 1 tablet by mouth once daily. 90 tablet 3 pyridoxine, vitamin B6, (VITAMIN B-6) 50 mg tablet Take 50 mg by mouth once daily. Ovgrfwrd-Yt-Ehp-Fe-FA tab Take 1 tablet by mouth once daily. With folic acid and DHA as covered by insurance. 30 tablet 11 ondansetron orally disintegrating (ZOFRAN ODT) 4 mg disintegrating tablet EVERY 8 HOURS NEEDED as needed for Nausea No current facility-administered medications for this visit. PAST SURGICAL HISTORY Procedure Laterality Date DENTAL SURGERY HX 2015 ORTHOPEDICS SURGERY HX knee torn meniscus WRIST Left cyst on left wrist FAMILY [...] Never Smokeless tobacco: Never Vaping Use Vaping status: Former Quit date: 05/19/2021 Substance Use Topics Alcohol use: Not Currently Comment: occasionally Drug use: No Objective BP 107/69 Pulse 97 Temp 36.1 C (96.9 F) Resp 20 Wt 73.3 kg (161 lb 9.6 oz) LMP 08/21/2023(Approximate) SpO2 99% BMI 27.31 kg/m Physical Exam Vitals reviewed. Constitutional: Appearance: Normal appearance. HENT: Head: Normocephalic and atraumatic. Right Ear: Tympanic membrane, ear canal and external ear normal. Left Ear: Tympanic membrane, ear canal and external ear normal. Nose: Congestion present. Mouth/Throat: Mouth: Mucous membranes are moist. Pharynx: Posterior oropharyngeal erythema present. No pharyngeal swelling, oropharyngeal exudate oruvula swelling. Tonsils: No tonsillar exudate or tonsillar abscesses. Cardiovascular: Rate and Rhythm: Normal rate and regular rhythm. Heart sounds: Normal heart sounds. Pulmonary: Effort: Pulmonary effort is normal. Breath sounds: Normal breath sounds. Musculoskeletal: Cervical back: Neck supple. Skin: General: Skin is warm and dry. Neurological: General: No focal deficit present. Mental Status: She is alert. Assessment and Plan ASSESSMENT/PLAN: 1. Viral URI - ICD9: 465.9, ICD10: J06.9 - Discussed viral etiology and rationale for treatment. - Symptomatic treatment with prn analgesia with tylenol, avoid nsaids in . - Supportive care with fluids and rest . - Follow up in 3-5 days if symptoms persist or sooner if worsening of symptoms - COVID & INFLUENZA A/B & RSV PCR, ROUTINE - STREP A MOLECULAR (POC) Neeta Rey PA-C documented in this encounterOhio [facility] University [facility]10-29-2024 NoteHNO ID: [id number] Author: BUZZ MUHAMMAD MA Service: ? Author Type: Plumber Apprentice Type: Progress Notes Filed: 03/19/2024 13:01 Note Text: Patient identified by name and date of . Beatris Fletcher presents today for a vaccination of Tdap. Patient denies an allergy to latex: yes Patient denies a severe (life-threatening) allergy to a previous dose of Tdap, DTP, DTaP, DT or Td vaccine. Yes Patient denies history of epilepsy or neurological problems: Yes Patient is afebrile and denies being moderately or severely ill: Yes Patient denies history of Guillain-[place] Syndrome (a severe paralytic illness): Yes Tdap Adacel injection was given without incident. See immunizations for details of immunizations administered today. VIS sheet provided: Yes Provider Caldwell was present in office at time of injection. Buzz Muhammad [facility]10-29-2024 History of Present illness Narrative* Buzz Muhammad MA - 03/16/2024 3:50 PM EDT Patient identified by name and date of . Beatris Fletcher presents today for a vaccination of Tdap. Patient denies an allergy to latex: yes Patient denies a severe (life-threatening) allergy to a previous dose of Tdap, DTP, DTaP, DT or Td vaccine. Yes Patient denies history of epilepsy or neurological problems: Yes Patient is afebrile and denies being moderately or severely ill: Yes Patient denies history of Guillain-[place] Syndrome (a severe paralytic illness): Yes Tdap Adacel injection was given without incident. See immunizations for details of immunizations administered today. VIS sheet provided: Yes Provider Javi was present in office at time of injection. Buzz Muhammad MA documented in this encounterOhio State University [facility]10-29-2024 Instructions* Patient Instructions* Buzz Muhammad MA - 03/16/2024 3:20 PM EDT SEQUENTIAL SCREENINGS The [facility] offers sequential screenings for women who are interested in screenings for chromosomal abnormalities and certain defects during a . The sequential screen combinesultrasound and blood tests to determine the risk [...] this testing. It will require an appointment withour animal health technician. This is not an ultrasound performed [...] the above symptoms, contact our office at [phone] and ask to speak with anurse. After hours, you can call doctors registry at [phone] OR call [facility] at [phone] ask to have the doctor quality control industrial engineer paged. If you consider this an emergency, dial 9--9 or go to your nearest emergency department. NEED HELP? Are you dealing with a violent or abusive relationship? Are you a victim of rape or sexual assult? Call [facility] ([place]) 24 hour Crisis Hotline: 710.150.1701 or 414-958-6920. MANUAL Your Guide to a Healthy manual is now on-line. Visit [email or web address] to download your free copy documented in this encounterOhio State University [facility]10-09-2024 Instructions* Patient Instructions* Nadine Teresa MA - 02/25/2024 2:22 PM EDT SEQUENTIAL SCREENINGS The [facility] offers sequential screenings for women who are interested in screenings for chromosomal abnormalities and certain defects during a . The sequential screen combinesultrasound and blood tests to determine the risk [...] this testing. It will require an appointment withour animal health technician. This is not an ultrasound performed [...] the above symptoms, contact our office at [phone] and ask to speak with anurse. After hours, you can call doctors registry at [phone] OR call [facility] at [phone] ask to have the doctor quality control industrial engineer paged. If you consider this an emergency, dial 9-1-2 or go to your nearest emergency department. NEED HELP? Are you dealing with a violent or abusive relationship? Are you a victim of rape or sexual assult? Call [facility] ([facility] 24 hour Crisis Hotline: 318.842.3386 or 821-624-0070. MANUAL Your Guide to a Healthy manual is now on-line. Visit [email or web address] to download your free copy documented in this encounterOhio State University [facility]10-09-2024 Telephone encounter Note * Telephone Encounter - Tierra Way RN - 02/25/2024 8:28 AM EDT Left message for patient to return phone call. Patient is scheduled today for Centering. Please dante know that this is group 4 of Centering and it is their 8th meeting. She was originally enrolledin Group 5 and their group was last Friday. She is welcome to come today and have her OB visit and join our centering group for the day-we have a speaker on car seats coming in or she can have OB visit with one of OB providers outside of Centering. Her next visits are scheduled with the correct #5 centering group. [facility]10-09-2024 Miscellaneous Notes* Telephone Encounter - Tierra Way RN - 02/25/2024 8:28 AM EDT Left message for patient to return phone call. Patient is scheduled today for Centering. Please dante know that this is group 4 of Centering and it is their 8th meeting. She was originally enrolledin Group 5 and their group was last Friday. She is welcome to come today and have her OB visit and join our centering group for the day-we have a speaker on car seats coming in or she can have OB visit with one of OB providers outside of Centering. Her next visits are scheduled with the correct #5 centering group. documented in this encounterOhio State University [facility]10-09-2024 Progress note* Quick Notes - Leena Gaytan APRN.CNM - 02/25/2024 7:54 AM EDT CP- CENTERING S: Beatris Fletcher is a 18 year old female who presents at 24 weeks gestation for a routine visit andcentering. Positive movements. Denies headache, visual changes, chest [...] - RTO 4 weeks Leena Gaytan APRN.CNM [facility]10-09-2024 Miscellaneous Notes* Quick Notes - Leena Gaytan APRN.CNM - 02/25/2024 7:54 AM EDT CP- CENTERING S: Beatris Fletcher is a 18 year old female who presents at 24 weeks gestation for a routine visit andcentering. Positive movements. Denies headache, visual changes, chest [...] weeks Leena Gaytan APRN.CNM documented in this encounterOhio State University [facility]09-10-2024 Telephone encounter Note * Telephone Encounter - Lulú Lacy RN - 01/27/2024 1:45 PM EDT Patient notified. Lulú Lacy RN [facility]09-10-2024 Miscellaneous Notes* Telephone Encounter - Lulú Lacy RN - 01/27/2024 1:45 PM EDT Patient notified. Lulú Lacy RN * Telephone Encounter - Andrea Carlton RN - 01/26/2024 12:21 PM EDT Left message for patient to call office. Andrea Carlton RN * Telephone Encounter - Andrea Carlton RN - 01/26/2024 12:21 PM EDT ----- Message from Anitra Caldwell APRN.CNM sent at 01/26/2024 11:43 AM EDT ----- Anatomy ultrasound reviewed. Please assist in scheduling follow up US at 32 weeks for placental location. Please place copy in OB chart. Anitra Caldwell APRN.CNM documented in this encounterOhio State University [facility]09-09-2024 Telephone encounter Note * Telephone Encounter - Andrea Carlton RN - 01/26/2024 12:21 PM EDT Left message for patient to call office. Andrea Carlton RN [facility]09-09-2024 Telephone encounter Note* Telephone Encounter - Andrea Carlton RN - 01/26/2024 12:21 PM EDT ----- Message from Anitra Caldwell APRN.CNM sent at 01/26/2024 11:43 AM EDT ----- Anatomy ultrasound reviewed. Please assist in scheduling follow up US at 32 weeks for placental location. Please place copy in OB chart. Anitra Caldwell APRN.CNM [facility]09-09-2024 Telephone encounter Note* Telephone Encounter - Amelia Armstrong RN - 01/26/2024 8:46 AM EDT 2nd risk assessment form submitted 01/26/2024. Amelia Armstrong RN [facility]09-09-2024 Miscellaneous Notes* Telephone Encounter - Amelia Armstrong RN - 01/26/2024 8:46 AM EDT 2nd risk assessment form submitted 01/26/2024. Amelia Armstrong RN documented in this encounterOhio State University [facility]09-06-2024 Instructions* Patient Instructions* Anitra Caldwell APRN.CNM - 01/23/2024 10:40 AM [...] the above symptoms, contact our office at [phone] and ask to speak with anurse. After hours, you can call doctors registry at [phone] OR call [facility] at [phone] ask to have the doctor quality control industrial engineer paged. If you consider this an emergency, dial 4-8-3 or go to your nearest emergency department. NEED HELP? Are you dealing with a violent or abusive relationship? Are you a victim of rape or sexual assult? Call [facility] ([place]) 24 hour Crisis Hotline: 101.335.9700 or 174-709-4016. MANUAL Your Guide to a Healthy manual is now on-line. Visit [email or web address] to download your free copy documented in this encounterOhio State University [facility]09-06-2024 Progress note* Quick Notes - Anitra Caldwell APRN.CNM - 01/23/2024 9:58 AM EDT BAKARI-S: Beatris Fletcher is a 18 year old female who presents at 20w0d with RICK:06/11/2024, by Ultrasoundfor a routine visit. Denies headache, visual changes, chest pain, shortness of breath, vaginal bleeding, leakage of fluid, or dysuria. Feeling well, no complaints.Nausea improved, decreased amount ofReglan used, taking B6. O: See flow sheet [...] call -RTO in 4wk Anitra Caldwell APRN.CNM [facility]09-06-2024 Miscellaneous Notes* Quick Notes - Anitra Caldwell APRN.CNM - 01/23/2024 9:58 AM EDT BAKARI-S: Beatris Fletcher is a 18 year old female who presents at 20w0d with RICK:06/11/2024, by Ultrasoundfor a routine visit. Denies headache, visual changes, chest pain, shortness of breath, vaginal bleeding, leakage of fluid, or dysuria. Feeling well, no complaints.Nausea improved, decreased amount ofReglan used, taking B6. O: See flow sheet [...] 4wk Anitra Caldwell APRN.CNM documented in this encounterOhio [facility] University [facility]08-[facility]-2024 Progress note* Quick Notes - Anitra Caldwell APRN.CNM - 12/23/2023 10:29 AM EDT BAKARI-S: Beatris Fletcher is a 18 year old female who presents at 15w4d with RICK:06/11/2024, by Ultrasoundfor a routine visit. Denies headache, visual changes, [...] call -RTO in 4wk Anitra Caldwell APRN.CNM [facility]08-06-2024 Miscellaneous Notes* Quick Notes - Anitra Caldwell APRN.CNM - 12/23/2023 10:29 AM EDT BAKARI-S: Beatris Fletcher is a 18 year old female who presents at 15w4d with RICK:06/11/2024, by Ultrasoundfor a routine visit. Denies headache, visual changes, [...] 4wk Anitra Caldwell APRN.CNM documented in this encounterOhio State University [facility]08-06-2024 Instructions* Patient Instructions* Ld Duckworth MA - 12/23/2023 10:16 AM EDT SEQUENTIAL SCREENINGS The [facility] offers sequential screenings for women who are interested in screenings for chromosomal abnormalities and certain defects during a . The sequential screen combinesultrasound and blood tests to determine the risk [...] this testing. It will require an appointment withour animal health technician. This is not an ultrasound performed [...] the above symptoms, contact our office at [phone] and ask to speak with anurse. After hours, you can call doctors registry at [phone] OR call [facility] at [phone] ask to have the doctor quality control industrial engineer paged. If you consider this an emergency, dial 9--1 or go to your nearest emergency department. NEED HELP? Are you dealing with a violent or abusive relationship? Are you a victim of rape or sexual assult? Call [facility] ([place]) 24 hour Crisis Hotline: 998.759.5136 or 052-329-1302. MANUAL Your Guide to a Healthy manual is now on-line. Visit [email or web address] to download your free copy documented in this encounterOhio State University [facility]07-26-2024 NoteHNO ID: [id number] Author: JOSEPH HSU APRN.MARINE SUPERINTENDENT Service: ? Author Type: Nurse Practitioner Type: Progress Notes Filed: 12/12/2023 15:31 Note Text: Subjective HPI HPI Beatirs Fletcher is a 18 year old female who presents today for CC of nausea/vomiting, is 14 weeks . Currently prescribed multiple anti nausea medications from tailer off. Tolerating fluids/solids, last void was just before [...] Take 1 tablet by mouth once daily. Lseoapef-Gy-Bad-Fe-FA tab Take 1 tablet by mouth once [...] ICD10: R11.0 Continue taking medication ordered by tare man Red flag s/s discussed Work note provided Joseph Hsu APRN.[facility]07-26-2024 History of Present illness Narrative* Joseph Hsu APRN.[facility] - 12/12/2023 3:05 PM EDT Subjective HPI HPI Beatris Fletcher is a 18 year old female who presents today for CC of nausea/vomiting, is 14 weeks. Currently prescribed multiple anti nausea medications from tailer off. Tolerating fluids/solids, last void was just before [...] Take 1 tablet by mouth once daily. Tufjfwjj-Pi-Ull-Fe-FA tab Take 1 tablet by mouth once [...] rate 18, weight 62 kg (136 lb 11oz), last menstrual period 08/21/2023, SpO2 99%. Physical [...] ICD10: R11.0 Continue taking medication ordered by tare man Red flag s/s discussed Work note provided Joseph Hsu APRN.CLAUDIA documented in this encounterOhio [facility] University [facility]07-24-2024 Telephone encounter Note * Telephone Encounter - Andrea Carlton RN - 12/10/2023 9:34 AM EDT Pt notified and voiced understanding. Andrea Carlton RN [facility]07-24-2024 Miscellaneous Notes* Telephone Encounter - Andrea Carlton RN - 12/10/2023 9:34 AM EDT Pt notified and voiced understanding. Andrea Carlton RN * Telephone Encounter - Anitra Caldwell APRN.CNM - 12/10/2023 8:42 AM EDT We can try phenergan, but this can make her feel tired and dizzy as well. They can all have similarside effects it just depends how she responds. [...] no improvement would recommend ED for iv fluids.Can always try this and make appt with me Friday to follow up and could try outpatient IV hydrationas an option. Anitra Caldwell APRN.CNM * Telephone Encounter - Amelia Martinez RN - 12/09/2023 9:16 AM EDT 13w4d Patient was switched from Zofran to Reglan because the Zofran was ineffective. She is wanting a different med. Reglan is causing her dizziness (which she was aware could happen) and she is still vomiting several times a day. Keeping jello and fluids down only. Is there another medication she can beprescribed? Amelia Martinez RN documented in this encounterOhio State University [facility]07-24-2024 Telephone encounter Note * Telephone Encounter - Anitra Caldwell APRN.CNM - 12/10/2023 8:42 AM EDT We can try phenergan, but this can make her feel tired and dizzy as well. They can all have similarside effects it just depends how she responds. [...] no improvement would recommend ED for iv fluids.Can always try this and make appt with me Friday to follow up and could try outpatient IV hydrationas an option. Anitra Caldwell APRN.CNM [facility]07-23-2024 Telephone encounter Note* Telephone Encounter - Amelia Martinez RN - 12/09/2023 9:16 AM EDT 13w4d Patient was switched from Zofran to Reglan because the Zofran was ineffective. She is wanting a different med. Reglan is causing her dizziness (which she was aware could happen) and she is still vomiting several times a day. Keeping jello and fluids down only. Is there another medication she can beprescribed? Amelia Martinez, RN [facility]07-12-2024 Instructions* Patient Instructions* Lisa Alamo LPN - 11/28/2023 2:17 PM EDT SEQUENTIAL SCREENINGS The [facility] offers sequential screenings for women who are interested in screenings for chromosomal abnormalities and certain defects during a . The sequential screen combinesultrasound and blood tests to determine the risk [...] this testing. It will require an appointment withour animal health technician. This is not an ultrasound performed [...] the above symptoms, contact our office at [phone] and ask to speak with anurse. After hours, you can call doctors registry at [phone] OR call [facility] at [phone] ask to have the doctor quality control industrial engineer paged. If you consider this an emergency, dial 0-8-9 or go to your nearest emergency department. NEED HELP? Are you dealing with a violent or abusive relationship? Are you a victim of rape or sexual assult? Call [facility] ([place]) 24 hour Crisis Hotline: 372.621.6902 or 984-737-4635. MANUAL Your Guide to a Healthy manual is now on-line. Visit [email or web address] to download your free copy documented in this encounterOhio State University [facility]07-12-2024 Progress note* Quick Notes - Anitra Caldwell APRN.ELIAZAR - 11/28/2023 1:49 PM EDT ISHAS: Beatris Fletcher is a 18 year old female who presents at 12w0d with RICK:06/11/2024, by Ultrasoundfor a routine visit. Denies headache, visual changes, [...] -RTO in 4 weeks Anitra Caldwell APRN.CNM [facility]07-12-2024 Miscellaneous Notes* Quick Notes - Anitra Caldwell APRN.CNM - 11/28/2023 1:49 PM EDT BAKARI-S: Beatris Fletcher is a 18 year old female who presents at 12w0d with RICK:06/11/2024, by Ultrasoundfor a routine visit. Denies headache, visual changes, [...] weeks Anitra Caldwell APRN.CNM documented in this encounterOhio State University [facility]07-12-2024 Telephone encounter Note * Telephone Encounter - Anitra Caldwell APRN.CNM - 11/28/2023 12:57 PM EDT Order signed. Anitra Caldwell APRN.CNM [facility]07-12-2024 Miscellaneous Notes* Telephone Encounter - Anitra Caldwell APRN.CNM - 11/28/2023 12:57 PM EDT Order signed. Anitra Caldwell APRN.CNM * Telephone Encounter - Andrea Carlton RN - 11/28/2023 12:33 PM EDT Pt is having Nuchal scan done today and needs order. Andrea Carlton RN documented in this encounterOhio State University [facility]07-12-2024 Telephone encounter Note * Telephone Encounter - Andrea Carlton RN - 11/28/2023 12:33 PM EDT Pt is having Nuchal scan done today and needs order. Andrea Carlton RN [facility]07-02-2024 Telephone encounter Note* Telephone Encounter - Cristy Oliver RN - 11/18/2023 9:47 AM EDT 1st risk assessment form submitted November 18, 2023. TRUE Ochoa, RN OB Clinical Navigator [phone] [facility]07-02-2024 Miscellaneous Notes* Telephone Encounter - Cristy Oliver RN - 11/18/2023 9:47 AM EDT 1st risk assessment form submitted November 18, 2023. TRUE Ochoa, RN OB Clinical Navigator [phone] documented in this encounterOhio State University [facility]07-01-2024 Progress note* Quick Notes - Anitra Caldwell APRN.CNM - 11/17/2023 9:47 AM EDT NOB, see progress note. Interested in Centering. Would like aneuploidy screening, will verify next visit. Anitra Caldwell APRN.CNM [facility]07-01-2024 Miscellaneous Notes* Quick Notes - Anitra Caldwell APRN.CNM - 11/17/2023 9:47 AM EDT NOB, see progress note. Interested in Centering. Would like aneuploidy screening, will verify next visit. Anitra Caldwell APRN.CNM documented in this encounterOhio State University [facility] Center06-28-2024 Instructions* Patient Instructions* Anitra Caldwell APRN.CNM - 11/14/2023 1:03 PM EDT Please select the following link to access the [facility] Your Guide to a Healthy . [email or web address] Aspirin 81mg by mouth once daily after 12 weeks documented in this encounterOhio State University [facility] Center06-28-2024 History of Present illness Narrative* Nora Haile LPN - 11/14/2023 11:32 AM EDT OB point of care ultrasound was performed. See imaging tab for details. Nora Haile LPN * Anitra Caldwell APRN.CNM - 11/13/2023 3:36 PM EDT INITIAL OB ASSESSMENT HPI: Beatris is a [...] accepted-excited Complaints: (!) Severe nausea/vomiting ([facility]-feeling better on Zofran) OB History T0 L0 [...] Partner: Name: Royce Mercado Age: 18 Occupation: [employer] Gender: Male PAST MEDICAL HISTORY Diagnosis Date [...] hemoglobin electrophoresis. Patient: Accepts Reviewed midwifery and armed security guard services that are available. 2) Screening: Hemoglobin [...] prn. Anitra Caldwell APRN.CNM documented in this encounterOhio State University [facility]06-27-2024 Telephone encounter Note * Telephone Encounter - Tierra Way RN - 11/13/2023 1:06 PM EDT Attempted to call patient x2 with no answer. Left voicemail to return phone call [facility]06-27-2024 Miscellaneous Notes* Telephone Encounter - Tierra Way RN - 11/13/2023 1:06 PM EDT Attempted to call patient x2 with no answer. Left voicemail to return phone call * Telephone Encounter - Tierra Way RN - 11/13/2023 10:46 AM EDT Called patient back and I will plan on completing OB intake questions at 1:00 today * Telephone Encounter - Samra Fatima MA - 11/13/2023 9:19 AM EDT Attempted to call patient to go over new ob intake questions. No answer; left voicemail. Samra Fatima MA documented in this encounterOhio State University [facility] Center06-27-2024 Telephone encounter Note * Telephone Encounter - Tierra Way RN - 11/13/2023 10:46 AM EDT Called patient back and I will plan on completing OB intake questions at 1:00 today [facility]06-27-2024 Telephone encounter Note* Telephone Encounter - Samra Fatima MA - 11/13/2023 9:19 AM EDT Attempted to call patient to go over new ob intake questions. No answer; left voicemail. Samra Fatima MA [facility]06-25-2024 History of Present illness Narrative* Gretchen Brower, OMID - 11/11/2023 10:56 AM EDT 1. Myopia, bilateral A: Good vision, fit, [...] any new flashes/floaters or changes in vision Gretchen Brower, OMID November 11, 2023 10:56 AM documented in this encounterOhio State University [facility] Center06-19-2024 History of Present illness Narrative* Joseph Hsu APRN.CNP - 11/05/2023 12:13 PM EDT Patient triaged at [facility]. Here today with continued vomiting, seen in [facility] last week/remedies attempted, now having dizziness. Is 9 weeks . I will refer to ER. In no apparent distress at time of triage. documented in this encounterOhio State University [facility] Center06-08-2024 Instructions* Patient Instructions* Floyd Louise APRN.CNP - 10/25/2023 12:51 PM EDT Nausea and vomiting Doxylamine (Unisom Sleeptab) Vitamin B6 25mg three times per day in combination with doxylamine 12.5mg at bedtime to prevent nausea. Kathi extract 125-250mg every six hours. documented in this encounterOhio State University [facility] Center06-08-2024 History of Present illness Narrative* Floyd Louise APRN.CNP - 10/25/2023 12:46 PM EDT Subjective HPI Nontoxic-appearing 7-week female presents urgent care chief complaint nausea. Duration of symptoms last 2 to 3 days. Associated symptoms nausea. States nausea is worse in the morning. Has not been seen by COOK HELPER DESSERT at this point. Has tried some OTC [...] 59.5 kg (131 lb 2.8 oz) LMP 04/02/2023(Approximate) SpO2 99% Review of Systems Constitutional: Negative [...] vaginal discharge. No evidence of dehydration. Will beestablished with COOK HELPER DESSERT at the end of today's visit. Recommended [...] of care. This note was generated using ParentPlus software. It may contain errors in wording, punctuation, or spelling. Floyd Louise APRN.MARINE SUPERINTENDENT documented in this encounterOhio State University [facility]04-16-2024 History of Present illness Narrative* Raysa Bennett PTA - 09/02/2023 2:14 PM EDT Program_ID:[id number] Access Code: [email or web address] URL: [email or web address] Date: 09-02-2023 Prepared By: Zain Kearney Program [...] weekly - 2 sets - 10 reps * Zain Kearney, PT - 09/02/2023 2:00 PM EDT Episode Visit Count: 3 Therapist That Will [...] as many reps. Pain: Pain Pain Level: (It hurts a little bit) Pain Location: Knee - Left OBJECTIVE MEASURES WITH LEVEL OF FUNCTION: Form observed throughout session TREATMENT: Therapeutic Exercise: 1: *Clamshells x10, 2x10 with GTB 2x10 (GTB vended for [facility]) 2: *SL hip abduction series 2x10 each [...] 1441 DUARTE Ventura PT documented in this encounterOhio State University [facility] Medical Center04-12-2024 History of Present illness Narrative* Jennifer Earl RT(R) - 08/29/2023 10:00 AM EDT Radiology Service Progress Note PATIENT NAME: Beatris Fletcher DATE OF SERVICE: August 29, 2023 TIME: 10:00 AM PATIENT IDENTITY VERIFICATION COMPLETED USING TWO (2) IDENTIFIERS: Name and Date of confirmedby patient verbally. FALL SCREENING: Has the patient had 2 falls in the last year or 1 fall with injury or currently using an Ambulatory Assistive Device (Walker, Cane, Wheelchair, Crutches, etc.)? No PATIENT GENDER DATA: Female. status: : No status: NO. PATIENT RELEVANT IMPLANT DATA REVIEWED: Yes PATIENT PRESENTS WITH AN IMPLANTABLE OR ATTACHED CPR INSTRUCTOR: No RADIOLOGY DEPARTMENT: MR; Exam(s) Completed: Lower MSK: Knee, left PERIPHERAL IV DATA: Not applicable SIGNED BY: RT Dorys(R) August 29, 2023 10:00 AM documented in this encounterOhio State University [facility] Center04-10-2024 History of Present illness Narrative* Zhanna Hazel APRN.CNP - 08/27/2023 4:47 PM EDT Subjective Patient came in with complaints of [...] history is provided by the patient. No advertising space clerk was used. Review of Systems Constitutional: Negative. [...] plan. Zhanna Hazel APRN.CLAUDIA documented in this encounterOhio State University [facility] Center04-09-2024 History of Present illness Narrative* Zain Kearney, PT - 08/26/2023 2:51 PM EDT Program_ID:[id number] Access Code: [email or web address] URL: [email or web address] Date: 08-26-2023 Prepared By: Zain Kearney Program [...] weekly - 4 sets - 10 reps * Zain Kearney PT - 08/26/2023 2:16 PM EDT Episode Visit Count: 2 Therapist That Will [...] 1455 Zain Kearney PT documented in this encounterOhio State University [facility]04-02-2024 History of Present illness Narrative* Zain Kearney PT - 08/19/2023 10:52 AM EDT Program_ID:[id number] Access Code: [email or web address] URL: [email or web address] Date: 08-19-2023 Prepared By: Zain Kearney Program Notes Exercises - Single Leg Bridge - 1 x daily - 7 x weekly - 4 sets - 10 reps - Supine Isometric Hamstring Set - 1 x daily - 7 x weekly - 4 sets - 10 reps * Zain Kearney, PT - 08/19/2023 10:15 AM EDT Images from the original note were not [...] with standing, walking, stair negotiation . She presentswith impairments in gait, independence in exercise, strength, and symptom management. PROMIS (Patient- Reported Outcomes Measurement Information System) scores were reviewed and identified as a rehabilitation concern. Prognosis for therapy is Good due to: current objective clinical presentation, good overall health status, within- session changes . Most pertinent findings are weakness of the gluteus medius, miles, and hamstrings of the LLE. She will benefit from skilled therapy services to meetthe goals established for this plan of care as noted below. Goals for Episode of Care: created on 08/19/23 through 11/11/23 [place] in home exercise program. Perform stairs without [...] Planned: 4 Planned Treatment Interventions: Therapeutic exercise (07151), Neuromuscular re- education (24611), Manual therapy (51082), Gait Training (91491), Patient/Family/Caregiver Education PLAN FOR NEXT VISIT: Assess [...] 1102 Zain Kearney PT documented in this encounterOhio State University [facility] Center03-14-2024 History of Present illness Narrative* Mayda Solares DO - 07/31/2023 2:33 PM EDT Images from the original note were not [...] intolerance, new onset joint pain or swelling, newonset extremity weakness or numbness, new onset auditory or visual disturbances, lightheadedness, dizziness, partial loss of consciousness or full loss of consciousness. No current outpatient medications on file. No current facility-administered medications for this visit. Physical Exam Vitals: [facility] 04/02/2023 Psych: Pleasant, good affect [...] space, with a small knee joint effusion. Golf Club Head Inspector And Adjuster: CHAPARRITA Transcribe Date/Time: Jul 31 2023 2:39P [...] plan. All questions answered. Mayda Solares D.O. M.P.H. documented in this encounterOhio State University [facility] Center03-14-2024 History of Present illness Narrative* Tierra Sales RT(R) - 07/31/2023 2:30 PM EDT Radiology Service Progress Note PATIENT NAME: Beatris Fletcher DATE OF SERVICE: July 31, 2023 TIME: 2:21 PM PATIENT IDENTITY VERIFICATION COMPLETED USING TWO (2) IDENTIFIERS: Name and Date of confirmedby patient verbally. FALL SCREENING: Has the patient had 2 falls in the last year or 1 fall with injury or currently using an Ambulatory Assistive Device (Walker, Cane, Wheelchair, Crutches, etc.)? No PATIENT GENDER DATA: Female. status: : No status: NO. PATIENT RELEVANT IMPLANT DATA REVIEWED: Not Applicable PATIENT PRESENTS WITH AN IMPLANTABLE OR ATTACHED CPR INSTRUCTOR: No RADIOLOGY DEPARTMENT: General X-ray: Exam(s) Completed: Lower Extremity X- Ray(s): Knee, AP / Lat / Tunne / Merchant Left and Wt. Bearing PERIPHERAL IV DATA: Not applicable SIGNED BY: RT Lei(R) July 31, 2023 2:21 PM documented in this encounterOhio State University [facility] Center11-15-2023 History of Present illness Narrative* John Crowe MD - 04/02/2023 2:38 PM EST Patient presents with: Sore Throat: Congestion, low [...] pain, shortness of breath, and lethargy; in theER if severe. John Crowe MD documented in this encounterOhio State University [facility] Center10-03-2023 History of Present illness Narrative* Tierra Sales, RT(R) - 02/18/2023 12:20 PM EDT Radiology Service Progress Note PATIENT NAME: Beatris Fletcher DATE OF SERVICE: February 18, 2023 TIME: 12:13 PM PATIENT IDENTITY VERIFICATION COMPLETED USING TWO (2) IDENTIFIERS: Name and Date of confirmedby patient verbally. FALL SCREENING: Has the patient had 2 falls in the last year or 1 fall with injury or currently using an Ambulatory Assistive Device (Walker, Cane, Wheelchair, Crutches, etc.)? No PATIENT GENDER DATA: Female. status: : No status: NO. PATIENT RELEVANT IMPLANT DATA REVIEWED: Not Applicable RADIOLOGY DEPARTMENT: General X-ray: Exam(s) Completed: Lower Extremity X- Ray(s): Foot, Right PERIPHERAL IV DATA: Not applicable SIGNED BY: RT Lei(R) February 18, 2023 12:13 PM documented in this encounterOhio State University [facility] Center10-03-2023 History of Present illness Narrative* Tierra Sales RT(R) - 02/18/2023 12:00 PM EDT Radiology Service Progress Note PATIENT NAME: Beatris Fletcher DATE OF SERVICE: February 18, 2023 TIME: 11:57 AM PATIENT IDENTITY VERIFICATION COMPLETED USING TWO (2) IDENTIFIERS: Name and Date of confirmedby patient verbally. FALL SCREENING: Has the patient had 2 falls in the last year or 1 fall with injury or currently using an Ambulatory Assistive Device (Walker, Cane, Wheelchair, Crutches, etc.)? No PATIENT GENDER DATA: Female. status: : No status: NO. PATIENT RELEVANT IMPLANT DATA REVIEWED: Not Applicable RADIOLOGY DEPARTMENT: General X-ray: Exam(s) Completed: Lower Extremity X- Ray(s): Ankle, Right PERIPHERAL IV DATA: Not applicable SIGNED BY: RT Lei(R) February 18, 2023 11:57 AM documented in this encounterOhio State University [facility] Center09-06-2023 History of Present illness Narrative* Floyd Louise APRN.MARINE SUPERINTENDENT - 01/22/2023 6:17 PM EDT Images from the original note were not included. Subjective HPI Nontoxic-appearing female presents urgent care chief complaint rash. Duration of symptoms 1 day. Associated symptoms pruritic erythematous base rash on her lower legs and upper arms. Has not used anyOTC medications. Most predominant symptom with today's chief complaint is itching. Slightly painfulif she pushes over the area. Denies any recent medication changes antibiotic use. Overall feels well. Denies any fever body aches chills productive cough chest pain shortness of breath pleuritic painhemoptysis nausea vomiting abdominal pain change in bowel [...] of care. This note was generated using ParentPlus software. It may contain errors in wording, punctuation, or spelling. Floyd Louise APRN.CLAUDIA documented in this encounterOhio State University [facility]07-06-2023 Instructions* Patient Instructions* Floyd Louise APRN.CNP - 11/21/2022 1:46 PM [...] the most common cause of sore throat, bacteriaare another common cause. Bacteria and viruses are spread from one person to another through hand contact. Hands get contaminated when the sick individual touches their nose or mouth and then touchesanother person directly (erky-sa-ueme contact) or indirectly (bwnk-wz-kroqyd, such as doorknob, telephone, toys). It is difficult to determine the cause of sore throat based upon symptoms alone; an examination andlaboratory test are recommended in most cases Viruses - There are many viruses that can cause pain and swelling of the throat. The most common include viruses that cause sore throat as part of an upper respiratory infection, such as the common cold. Other viruses that cause sore throat include influenza, adenovirus, and Jose-Guzman virus (thecause of mononucleosis). Symptoms - Symptoms that may [...] in the back or sides of the throat,small red spots on the roof of the [...] than 1 year may be fussy and havea decreased appetite and low-grade fever. SORE THROAT [...] is important for the child to finish theentire course of treatment (usually 10 days). If [...] reduce the risk of dehydration, parents can offerwarm or cold liquids. (See 'Other interventions' below.) Signs and symptoms of mild dehydration include a slightly dry mouth, increased thirst, and decreased urine output (one wet diaper or void in six hours). Signs of moderate or severe dehydration include decreased urine output (less than one wet diaper or void in six hours), lack of tears when crying,dry mouth, and sunken eyes. A child who is moderately or severely dehydrated should be evaluated by a healthcare provider as soon as possible to determine if treatment is needed. Oral rinses- Salt-water gargles are an old stand-by for relief of throat pain. It is not clear if this treatmentis effective, but it is unlikely to be [...] hard candy. We do not recommend throat lozengesfor children, especially children younger than 3 to [...] fingernails, between the fingers, and the wrists. Handsshould be rinsed thoroughly, and dried with a [...] secretions and has the advantage of not co ntaminating the hands. WHEN TO SEEK HELP - [...] every four months on our web site ([email or web address]). Information below was obtained from Up to date Last literature review version 19.2: September 2010 This topic last updated: January 03, 2010 documented in this encounterOhio State University [facility]07-06-2023 History of Present illness Narrative* Floyd Louise APRN.CLAUDIA - 11/21/2022 1:32 PM EDT Subjective HPI Nontoxic-appearing female presents to urgent care with chief complaint of upper respiratory tract like infection. Duration of symptoms 2 days. Associated symptoms sore throat, nasal congestion, nasaldischarge and nonproductive cough. Patient denies the use of any vmkn-eql-kzulywy medications or home remedies for symptom management. Patient states recent sick contacts with similar signs and symptoms. Patient denies any productive cough, fever, chest pain, shortness of breath, pleuritic pain, rash, abdominal pain, nausea, vomiting or change in bowel or bladder habit. BP 110/62 Pulse 89 Temp 37.1 C (98.7 F) (Temporal) Resp 18 Wt 61.8 kg (136 lb 3.2 oz) LMP11/04/2022 (Approximate) SpO2 98% .Patient presents with: Pain, [...] of care. This note was generated using ParentPlus software. It may contain errors in wording, punctuation, or spelling. Floyd Louise APRN.CLAUDIA documented in this encounterOhio State University [facility]03-17-2023 History of Present illness Narrative* Gretchen Brower, OMID - 08/02/2022 11:04 AM EDT 1. Myopia, bilateral A: Good vision, fit, and comfort in current contact lenses. P: Finalized and printed new spec and clrx. Educated pt on proper wear and care of contact lenses. Return to clinic in one year for contact lens evaluation or sooner with any problems. Gretchen Brower OD August 02, 2022 11:04 AM documented in this encounterOhio State University [facility] Center11-21-2022 History of Present illness Narrative* Zhanna Hazel APRN.CLAUDIA - 04/08/2022 5:30 PM EST Patient came in with complaints of cat bite on left ring finger. Patient says she is bit yesterday.Patient says is extremely swollen and painful and numb. Upon examining the finger patient does havesignificant swelling and erythema. Patient has yellow-green liquid seeping out around the nail. Patient works at the [employer] should not 100% sure the cat had any of its shots. At this time patient is being sent to the ER due to loss of feeling in the finger swelling and erythema. Patient wasokay with this care plan. documented in this encounterOhio State University [facility]10-27-2022 History of Present illness Narrative* Mayda Solares, - 03/14/2022 1:33 PM EDT Follow Up Visit Chief Complaint Beatris Fletcher [...] follow up visit right knee postsurgical follow up.Pain history is noted as above. Denies calf [...] intolerance, new onset joint pain or swelling, newonset extremity weakness or numbness, new onset auditory or visual disturbances, lightheadedness, dizziness, partial loss of consciousness or full loss of consciousness. Current Outpatient Medications Medication Sig ketoconazole (NIZORAL) 2 % shampoo Shampoo twice weekly (at least 3 days between each shampoo) for up to 8 weeks. Then use as needed. No current facility-administered medications for this visit. Physical Exam Vitals: [facility] 01/04/2022 Psych: Pleasant, good affect [...] plan. All questions answered. Mayda Solares DO * Cristy Wood Ma - 03/14/2022 1:25 PM EDT Patient presents with: Left Knee - Post [...] Denies any pain today. documented in this encounterOhio State University [facility]10-19-2022 History of Present illness Narrative* June Staton, PT - 03/06/2022 11:29 AM EDT Episode Visit Count: 9 Therapist That Will Accept/Oversee The Plan Of Care: June Staton Start of Care Date: 02/04/22 Onset Date: 06/18/20 (end of the month) Patient Identified by Name and Date of : Yes REHABILITATION AND SPORTS THERAPY PHYSICAL THERAPY PROGRESS REPORT PLAN OF CARE UPDATE: Assessment: Beatris Fletcher demonstrates improvements in rising from a chair, walking, walking in thecommunity, stair negotiation, working, and sleeping. She hasprogressed [...] 02/04/22 through 04/06/22 Goals updated on 03/06/2022. [place] in home exercise program. (Met) Patient will [...] Patient to be seen for Therapeutic exercise (62776);Neuromuscular re-education (62957);Manual therapy (67324);Gait Training (36070);Patient/Family/Caregiver Education PLAN FOR NEXT VISIT: May add lunges, mini squats, increase to 6step. SUBJECTIVE: Patient Reason for Visit: Pt states she is doing well without the knee brace and she isnot having any pain. She notes only functional [...] with R heel touches to floor on 4step 2 x 15 7: R sidelying clamshells [...] 45 June Staton PT documented in this encounterOhio [facility] University [facility]10-12-2022 History of Present illness Narrative* June Staton PT - 02/27/2022 11:20 AM EDT Episode Visit Count: 7 Therapist That Will [...] 47 June Staton PT documented in this encounterOhio State University [facility]10-10-2022 History of Present illness Narrative* June Staton PT - 02/25/2022 11:00 AM EDT Episode Visit Count: 6 Therapist That Will [...] Total Treatment Time Minutes (timed/untimed): 45 Raysa Bennett, LABORER PIPELINE June Staton PT documented in this encounterOhio State University [facility]10-07-2022 History of Present illness Narrative* June Staton PT - 02/22/2022 9:48 AM EDT Episode Visit Count: 5 Therapist That Will [...] 0 Degrees L Knee Flexion: 147 Degrees (Still a little tight, but not as bad as it was.) Gait Gait Observation: Pt continues to ambulates [...] 45 June Staton PT documented in this encounterOhio State University [facility]09-19-2022 History of Present illness Narrative* June Staton PT - 02/04/2022 3:09 PM EDT Episode Visit Count: 1 Therapist That Will Accept/Oversee The Plan Of Care: June Staton Start of Care Date: 02/04/22 Onset Date: 06/18/20 (end of the month) Patient Identified by Name and Date of : Yes REHABILITATION AND SPORTS THERAPY PHYSICAL THERAPY EVALUATION PLAN OF CARE: Assessment: Beatris Fletcher presents with diagnosis of L knee patellar dislocation and s/p orthopedicsurgery that interferes with walking in the community;physical activities;recreational activities;sleeping . She presents with impairments in edema management, gait, overall function, range of motion, strength , and tissue tenderness. Prognosis for therapy is Excellent due to: current objective clin ical presentation;good overall health status;good support system/ coping skills . She will benefit from skilled therapy services to meet the goals established for this plan of care as noted below. Goals for Episode of Care: created on 02/04/22 through 04/06/22 [place] in home exercise program. Patient will decrease [...] Planned: 16 Planned Treatment Interventions: Therapeutic exercise (57359);Neuromuscular re- education (94299);Manual therapy (56932);Gait Training (29670);Patient/Family/Caregiver Education;E-Stim Attended/TENS (04892) PLAN FOR NEXT VISIT: Review HEP. Progress [...] walking on it some and notes that it,hurts the most when sleeping. Takes the brace off sometimes, but usually puts back on when wakes up in middle of the night. Ambulating with one crutch and feels she is putting about 60% weight on L LE. Works at [employer] so lots of walking, att[employer] and walks a lot at school. Patient Goals: To get back to doing all my activities at work. Functional Limitations: walking in the community;physical activities;recreational activities;sleeping Prior Level of Function: Independent with restrictions Independent with the following restrictions: Knee pain and limitations prior to surgery. 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 Occupation: [employer] Home Environment Patient Lives With: Family Home Type: (4 steps to drop living room, denies any difficulty navigating.) Intake Information: Prescription present Previous Treatment: (They told me to do the exercises I [...] provided Education Provided To: Patient Education Mode/Type: Demonstration;Explanation/Discussion;Literature/Printed Materials;Performance Response to Education/Teach Back: States/Identifies;Return Demonstration [...] 45 June Staton PT documented in this encounterOhio State University [facility]09-16-2022 History of Present illness Narrative* Mayda Solares, - 02/01/2022 10:55 AM EDT Follow Up Visit Chief Complaint Beatris Fletcher [...] intolerance, new onset joint pain or swelling, newonset extremity weakness or numbness, new onset auditory or visual disturbances, lightheadedness, dizziness, partial loss of consciousness or full loss of consciousness. Current Outpatient Medications Medication Sig ketoconazole (NIZORAL) 2 % shampoo Shampoo twice weekly (at least 3 days between each shampoo) for up to 8 weeks. Then use as needed. No current facility-administered medications for this visit. Physical Exam Vitals: [facility] 01/04/2022 Psych: Pleasant, good affect [...] plan. All questions answered. documented in this encounterOhio State University [facility] Center09-08-2022 Miscellaneous Notes* Telephone Encounter - Lashay Grace RN - 01/24/2022 8:29 AM EDT Letter faxed to number provided Left detailed message on mom's VM too. Advised to call back with any questions or concerns. * Telephone Encounter - Dyan Toscano - 01/24/2022 8:23 AM EDT School nhote composed to excuse her from class from 01/23/22 through 01/25/22. Sent to patients jordan. Dyan Toscano * Telephone Encounter - Delmi Garcia PSS - 01/23/2022 4:57 PM EDT Mom is calling in and is wanting to see if she can get a school excuse typed up for Beatris to excuseher.. Definitely would have to be for Friday, mom states Beatris went to school yesterday, but was guanakito lot of pain so stayed home today.. Please advise. Thank you! PH # is [phone] Could be released through [employer] or mom says we can fax directly to the school. [facility] documented in this encounterOhio State University [facility] Center08-16-2022 Instructions* Patient Instructions* Nataliia Lujan APRN.MARINE SUPERINTENDENT - 01/01/2022 1:41 PM EDT PATIENT PREOPERATIVE INSTRUCTIONS Mayda Solares,* has scheduled you for your procedure at this surgery center: [facility]: [phone] --[id number] [facility], [place] [address]. Please read below carefully for your personalized [...] Procedures: - YOU MUST HAVE A RESPONSIBLE AFRICAN HISTORY PROFESSOR TAKE YOU HOME. A MAINTENANCE TECHNICIAN 3RD SHIFT OR LEATHER CASE FINISHER CANNOT BE MADE A RESPONSIBLE AFRICAN HISTORY PROFESSOR. - We recommend that a responsible person stays with you overnight to take care of you. - You cannot stay in a hotel alone after outpatient surgery. You will not be permitted to have yoursurgery, if you do not have someone to [...] Advance Directive, please fax a copy to [phone] or email to for it to be added to your chart. If you do not have an Advance Directive, you can find the appropriate form and more information at [email or web address]. We recommend that youcomplete the Advance Directive form found on the website and bring it with you the day of your surgery. It can be witnessed and scanned into your chart that day. Nataliia Lujan APRN.CLAUDIA documented in this encounterOhio State University [facility]08-16-2022 History and physical note * Nataliia Lujan APRN.CNP - 01/01/2022 1:40 PM EDT PREANESTHESIA CONSULT CLINIC TELEHEALTH VISIT Patient has been identified by name and date of : Yes This is a virtual visit using [employer] video visit. It require patient-provider interaction for [...] fevers. Neuro: No history of TIA's, stroke, RN PERITONEAL DIALYSIS tumor, impaired sensorium, hemiplegia, paraplegia or quadraplegia. No neurological symptoms or problems. Respiratory: No history of current cough or dyspnea, or pneumonia in the past 6 weeks. No history of respiratory/pulmonary symptoms or problems. Cardiovascular: No history of HTN requiring medication, no history of angina, CHF, AL, cardiac surgery or stents. Denies rest pain, [...] > 1 time per night or hematuria NAVAL AIRCREWMAN AVIONICS: Negative for abnormal vaginal bleeding, abnormal vaginal discharge. : Denies, Patient's last menstrual period was 02/09/2020. Endocrine: No history of diabetes. Has not taken steroids within the past 30 days. No history of endocrinological symptoms or problems. Hematology: No history of bleeding or clotting disorder. Pt is not taking anti- coagulation or platelet medications. No history of hematological [...] known pertinent medical condition which may affect margaret- operative course METS: Climb a flight of stairs [...] device. I spent more than 0-20 minutes hbsj-uu-iqjl with the patient and over half the time was devoted to counseling and/or coordination of care. This is a virtual visit. It required patient-provider interaction for the medical decision making as documented above. SIGNATURE: Nataliia Lujan APRN.CNP PATIENT NAME: Beatris Fletcher DATE: .01/01/2022 TIME: 1:46 PM PAGER/CONTACT #: documented in this encounterOhio State University [facility] Center2022 Miscellaneous Notes* Telephone Encounter - Otoniel Gates PA-C - 12/26/2021 9:13 AM EDT Confirmed DOS 01/[address] Arteaga/Sujatha case- arthroscopy left knee, arthroscopic assisted removal of loose bodies, chondroplasty, ESTELA cartilage biopsy, open MPFL reconstruction utilizing semitendinosus allograft. Preoperative expectations reviewed. Patient will need crutches. Virtual PACC. Post op appointments with Dr. Solares 2 weeks post op. PT to start 2 weeks post op. Otoniel Gates PA-C * Telephone Encounter - Nadine Williamson - 12/19/2021 4:07 PM EDT pnt mother LVM wanting to sched joint surgery on Left knee [phone]-mom Rosa [phone]-dad Edward documented in this encounterOhio State University [facility] Center07-25-2022 History of Present illness Narrative* Manny Arteaga MD - 12/10/2021 1:28 PM EDT Virtual visit: Consultation requested by Dr. Mayda Solares for an opinion regarding surgery on left knee for recurrent dislocations and loose body. My final recommendations will be communicated back to the requesting physician by way of shared Medical record or letter to requesting physician via US mail. 16 year old not in any sports now due to pain. Dislocated LEFT patella a year ago. Had MRI on 11/11/20 at [facility] MRI at that time revealed possible anterior [...] with more than 50% of the total uuvt-zx-hqco time of the visit in counseling / coordination of care. We will coordinate with Dr Solares for combined surgery documented in this encounterOhio State University [facility] Center07-22-2022 Miscellaneous Notes* Telephone Encounter - Chago Colby [facility] - 12/07/2021 8:27 AM EDT Daughter seeing Dr. Arteaga 12/10 then we can move forward with scheduling and the required letter. Message left for mom. Electronically signed by Chago Colby [facility] at 12/07/2021 8:28 AM EDT * Telephone Encounter - Delmi Garcia PSS - 12/06/2021 11:34 AM EDT Patients mother is calling in and is requesting paperwork be sent to patients dads email so he can turn this into his higher up. He has a prior engagement and needs this form to get off and help with taking care of Beatris afterwards. The email is [email or web address]. The paperwork does not need to give specifics bc of HIPPA, but would need dads name, and the date of surgery for Beatris. Please advise. They are saying they need this before the weekend.. Thank you! documented in this encounterOhio State University [facility] Center06-22-2022 History of Present illness Narrative* Mayda Solares, - 11/07/2021 11:57 AM EDT Images from the original note were not [...] intolerance, new onset joint pain or swelling, newonset extremity weakness or numbness, new onset auditory [...] film 2-4 times per day. Discontinue when controlis achieved. No current facility-administered medications for this visit. Physical Exam Vitals: [facility] 02/09/2020 Psych: Pleasant, good affect [...] so will see how stable she is aftertto to determine if she needs mpfl as well After November 19 Risks and benefits vs alternatives to treatment were discussed with patient. Risks including but not limited to blood loss, blood clot, infection, neurovascular injury, failure of procedure, need forrevision operation, loss of life and loss of limb. Patient aware of risks and benefits and agrees to proceed with written consent for surgical intervention. d/w chago aquino to be notified and will contact patient Mayda Solares DO documented in this encounterOhio State University [facility] Center06-07-2022 Miscellaneous Notes* Telephone Encounter - Shannon Berrios - 10/23/2021 3:04 PM EDT Patient has been scheduled for visit with Dr. Solares / pre op. * Telephone Encounter - Chago Colby [facility] - 10/23/2021 2:44 PM EDT Please contact the patient for an in person visit. I can schedule her after that. I had actually already left her a message but hadn't heard back yet. Electronically signed by Chago Colby [facility] at 10/23/2021 2:45 PM EDT * Telephone Encounter - Mayda Solares DO - 10/23/2021 12:56 PM EDT Team, Patient needs to come in so I can better assess what I need to do surgically from her patella standpoint as she has loose cartilage pieces that I need to address, but since her dislocation was a yearago, not convinced I have to do anything about her mpfl. Please call patient and have her come in. She also will need surgery scheduled so we can put it in the books, but need to know what I need in the room prior to day of. Thanks! Mayda Solares DO documented in this encounterOhio State University [facility] Center06-03-2022 History of Present illness Narrative* Mayda Solares DO - 10/19/2021 12:08 PM EDT VIRTUAL VISIT PROGRESS NOTE This is a virtual visit using [employer] video visit. It required patient-provider interaction for themedical decision making as documented below. Beatris Fletcher is a 16 year old female seen for left knee follow up. Had a pf dislocation event lastsummer, seen at OSH, MRI done, and showed [...] film 2-4 times per day. Discontinue when controlis achieved. No current facility-administered medications for this [...] which included preparing to see the patient, zioo-ej-ukvy patient care, completing clinical documentation, communicating with [...] patient. Mayda Solares DO documented in this encounterOhio State University [facility] Center05-31-2022 History of Present illness Narrative* Jennifer Earl RT(R) - 10/16/2021 11:20 AM EDT Radiology Service Progress Note PATIENT NAME: Beatris Fletcher DATE OF SERVICE: October 16, 2021 TIME: 11:44 AM PATIENT IDENTITY VERIFICATION COMPLETED USING TWO (2) IDENTIFIERS: Name and Date of confirmedby patient verbally. FALL SCREENING: Has the patient [...] 16, 2021 11:44 AM documented in this encounterOhio State University [facility] Center05-13-2022 Miscellaneous Notes* Telephone Encounter - June Magallon - 09/28/2021 12:50 PM EDT Called mom and scheduled virtual visit after MRI is done. * Telephone Encounter - Dyan Toscano - 09/27/2021 1:54 PM EDT Patient can be set up for telehealth visit to discuss results and surgical planning. Thank you! Dyan Toscano * Telephone Encounter - Shannon Berrios - 09/27/2021 1:37 PM EDT Patient has been scheduled for MRI, does patient need a follow up? Mom mentioned something about a scope that she was possibly going to get done? Please advise, thank you * Telephone Encounter - Dyan Toscano - 09/27/2021 12:52 PM EDT I ordered MRI, her last one of her left knee was a while ago and id like a new one prior to surgical intervention. Please schedule/call patient Thanks Madya Solares DO * Telephone Encounter - Dyan Toscano - 09/27/2021 12:52 PM EDT ----- Message from Mayda Solares DO sent at 09/27/2021 11:59 AM EDT ----- I ordered MRI, her last one of her left knee was a while ago and id like a new one prior to surgical intervention. Please schedule/call patient Thanks Mayda Solares DO documented in this encounterOhio State University [facility] Center05-11-2022 History of Present illness Narrative* Mayda Solares DO - 09/26/2021 12:00 PM EDT Images from the original note were not included. Reason for Visit/Chief Complaint Beatris Fletcher is a 16 year old female who presents today for a new evaluation of following complaint: Patient presents with: Left Knee - New, Knee Pain, Swelling History of Present Illness: PAIN EVALUATION 09/26/2021 1156 Pain Level: 4 Pain Location: Knee-Left Description: Aching;Dull;Throbbing;Sharp;Other: See comment popping Duration Amount of Time: 1 Duration Units: Years Frequency: Continuous Intervention/Comfort measure: Reposition;Relaxation;Other: See comment;Cold;Medication knee sleeve HPI: Beatris Fletcher is a 16 year old female presenting today with left knee pain. About one year agopatient fell on knee and states she dislocated [...] intolerance, new onset joint pain or swelling, newonset extremity weakness or numbness, new onset auditory [...] film 2-4 times per day. Discontinue when controlis achieved. No current facility-administered medications on file prior to visit. ALLERGIES No Known Allergies Physical Exam: Vitals: [facility] 02/09/2020 Psych: Pleasant, good affect [...] in the lateral and patellofemoral compartments. Golf Club Head Inspector And Adjuster: CHAPARRITA ... Complete Results Assessment and Plan: Impression: Encounter Diagnosis ICD-10-CM 1. Chronic pain of left knee M25.562 G89.29 2. 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 M25.569 Plan: Risks and benefits vs alternatives to treatment were discussed with patient. Risks including but not limited to blood loss, blood clot, infection, neurovascular injury, failure of procedure, need forrevision operation, loss of life and loss of [...] treatment plan as discussed. documented in this encounterOhio State University [facility] Center05-11-2022 Miscellaneous Notes* [facility] - RT Xiomara(R) - 09/26/2021 11:00 AM EDT Radiology Service Progress Note PATIENT NAME: Beatris Fletcher DATE OF SERVICE: September 26, 2021 TIME: 12:16 PM PATIENT IDENTITY VERIFICATION COMPLETED USING TWO (2) IDENTIFIERS: Name and Date of confirmedby patient verbally. FALL SCREENING: Has the patient had 2 falls in the last year or 1 fall with injury or currently using an Ambulatory Assistive Device (Walker, Cane, Wheelchair, Crutches, etc.)? No PATIENT GENDER DATA: Female. status: : No status: NO. PATIENT RELEVANT IMPLANT DATA REVIEWED: Not Applicable RADIOLOGY DEPARTMENT: General X-ray: Exam(s) Completed: Lower Extremity X- Ray(s): Knee, AP / Lat / Tunne / Merchant Left PERIPHERAL IV DATA: Not applicable SIGNED BY: RT Xiomara(R) September 26, 2021 12:16 PM [facility] History of Past illness Narrative* Problem Noted Date Resolved Date Chronic cough 06/10/2017 11/25/2019 Nocturnal enuresis 10/16/2010 02/22/2020 Ganglion cyst of wrist, left 10/2019 Last Assessment & Plan: Assessment: scheduled for EXCISION GANGLION WRIST LEFT 12/03/2019 documented as of this encounter (statuses as of 09/27/2021) [place] [id number] History of Past illness Narrative* Problem Noted Date Resolved Date Chronic cough 06/10/2017 11/25/2019 Nocturnal enuresis 10/16/2010 02/22/2020 Ganglion cyst of wrist, left 10/2019 Last Assessment & Plan: Assessment: scheduled for EXCISION GANGLION WRIST LEFT 12/03/2019 documented as of this encounter (statuses as of 09/27/2021) [facility] History of Past illness Narrative* Problem Noted Date Resolved Date Chronic cough 06/10/2017 11/25/2019 Nocturnal enuresis 10/16/2010 02/22/2020 Ganglion cyst of wrist, left 10/2019 Last Assessment & Plan: Assessment: scheduled for EXCISION GANGLION WRIST LEFT 12/03/2019 documented as of this encounter (statuses as of 09/28/2021) [place] [id number] History of Past illness Narrative* Problem Noted Date Resolved Date Chronic cough 06/10/2017 11/25/2019 Nocturnal enuresis 10/16/2010 02/22/2020 Ganglion cyst of wrist, left 10/2019 Last Assessment & Plan: Assessment: scheduled for EXCISION GANGLION WRIST LEFT 12/03/2019 documented as of this encounter (statuses as of 10/17/2021) [address]23-2018 History of Past illness Narrative* Problem Noted Date Resolved Date Chronic cough 06/10/2017 11/25/2019 Nocturnal enuresis 10/16/2010 02/22/2020 Ganglion cyst of wrist, left 10/2019 Last Assessment & Plan: Assessment: scheduled for EXCISION GANGLION WRIST LEFT 12/03/2019 documented as of this encounter (statuses as of 10/23/2021) [facility] History of Past illness Narrative* Problem Noted Date Resolved Date Chronic cough 06/10/2017 11/25/2019 Nocturnal enuresis 10/16/2010 02/22/2020 Ganglion cyst of wrist, left 10/2019 Last Assessment & Plan: Assessment: scheduled for EXCISION GANGLION WRIST LEFT 12/03/2019 documented as of this encounter (statuses as of 10/23/2021) [facility] History of Past illness Narrative* Problem Noted Date Resolved Date Chronic cough 06/10/2017 11/25/2019 Nocturnal enuresis 10/16/2010 02/22/2020 Ganglion cyst of wrist, left 10/2019 Last Assessment & Plan: Assessment: scheduled for EXCISION GANGLION WRIST LEFT 12/03/2019 documented as of this encounter (statuses as of 11/08/2021) [facility] History of Past illness Narrative* Problem Noted Date Resolved Date Chronic cough 06/10/2017 11/25/2019 Nocturnal enuresis 10/16/2010 02/22/2020 Ganglion cyst of wrist, left 10/2019 Last Assessment & Plan: Assessment: scheduled for EXCISION GANGLION WRIST LEFT 12/03/2019 documented as of this encounter (statuses as of 12/10/2021) [facility] History of Past illness Narrative* Problem Noted Date Resolved Date Chronic cough 06/10/2017 11/25/2019 Nocturnal enuresis 10/16/2010 02/22/2020 Ganglion cyst of wrist, left 10/2019 Last Assessment & Plan: Assessment: scheduled for EXCISION GANGLION WRIST LEFT 12/03/2019 documented as of this encounter (statuses as of 12/26/2021) [place] [id number] History of Past illness Narrative* Problem Noted Date Resolved Date Chronic cough 06/10/2017 11/25/2019 Nocturnal enuresis 10/16/2010 02/22/2020 Ganglion cyst of wrist, left 10/2019 Last Assessment & Plan: Assessment: scheduled for EXCISION GANGLION WRIST LEFT 12/03/2019 documented as of this encounter (statuses as of 01/01/2022) [facility] of Past illness Narrative* Problem Noted Date Resolved Date Chronic cough 06/10/2017 11/25/2019 Nocturnal enuresis 10/16/2010 02/22/2020 Ganglion cyst of wrist, left 10/2019 Last Assessment & Plan: Assessment: scheduled for EXCISION GANGLION WRIST LEFT 12/03/2019 documented as of this encounter (statuses as of 01/07/2022) [facility] History of Past illness Narrative* Problem Noted Date Resolved Date Chronic cough 06/10/2017 11/25/2019 Nocturnal enuresis 10/16/2010 02/22/2020 Ganglion cyst of wrist, left 10/2019 Last Assessment & Plan: Assessment: scheduled for EXCISION GANGLION WRIST LEFT 12/03/2019 documented as of this encounter (statuses as of 01/24/2022) [facility] History of Past illness Narrative* Problem Noted Date Resolved Date Chronic cough 06/10/2017 11/25/2019 Nocturnal enuresis 10/16/2010 02/22/2020 Ganglion cyst of wrist, left 10/2019 Last Assessment & Plan: Assessment: scheduled for EXCISION GANGLION WRIST LEFT 12/03/2019 documented as of this encounter (statuses as of 02/01/2022) [facility] of Past illness Narrative* Problem Noted Date Resolved Date Chronic cough 06/10/2017 11/25/2019 Nocturnal enuresis 10/16/2010 02/22/2020 Ganglion cyst of wrist, left 10/2019 Last Assessment & Plan: Assessment: scheduled for EXCISION GANGLION WRIST LEFT 12/03/2019 documented as of this encounter (statuses as of 02/04/2022) [facility] History of Past illness Narrative* Problem Noted Date Resolved Date Chronic cough 06/10/2017 11/25/2019 Nocturnal enuresis 10/16/2010 02/22/2020 Ganglion cyst of wrist, left 10/2019 Last Assessment & Plan: Assessment: scheduled for EXCISION GANGLION WRIST LEFT 12/03/2019 documented as of this encounter (statuses as of 02/22/2022) [facility] of [facility] illness Narrative* Problem Noted Date Resolved Date Chronic cough 06/10/2017 11/25/2019 Nocturnal enuresis 10/16/2010 02/22/2020 Ganglion cyst of wrist, left 10/2019 Last Assessment & Plan: Assessment: scheduled for EXCISION GANGLION WRIST LEFT 12/03/2019 documented as of this encounter (statuses as of 02/25/2022) [facility] History of Past illness Narrative* Problem Noted Date Resolved Date Chronic cough 06/10/2017 11/25/2019 Nocturnal enuresis 10/16/2010 02/22/2020 Ganglion cyst of wrist, left 10/2019 Last Assessment & Plan: Assessment: scheduled for EXCISION GANGLION WRIST LEFT 12/03/2019 documented as of this encounter (statuses as of 02/27/2022) [facility] History of Past illness Narrative* Problem Noted Date Resolved Date Chronic cough 06/10/2017 11/25/2019 Nocturnal enuresis 10/16/2010 02/22/2020 Ganglion cyst of wrist, left 10/2019 Last Assessment & Plan: Assessment: scheduled for EXCISION GANGLION WRIST LEFT 12/03/2019 documented as of this encounter (statuses as of 03/06/2022) [facility] of Past illness Narrative* Problem Noted Date Resolved Date Chronic cough 06/10/2017 11/25/2019 Nocturnal enuresis 10/16/2010 02/22/2020 Ganglion cyst of wrist, left 10/2019 Last Assessment & Plan: Assessment: scheduled for EXCISION GANGLION WRIST LEFT 12/03/2019 documented as of this encounter (statuses as of 03/15/2022) [facility] History of Past illness Narrative* Problem Noted Date Resolved Date Chronic cough 06/10/2017 11/25/2019 Nocturnal enuresis 10/16/2010 02/22/2020 Ganglion cyst of wrist, left 10/2019 Last Assessment & Plan: Assessment: scheduled for EXCISION GANGLION WRIST LEFT 12/03/2019 documented as of this encounter (statuses as of 04/09/2022) [facility] of Past illness Narrative* Problem Noted Date Resolved Date Chronic cough 06/10/2017 11/25/2019 Nocturnal enuresis 10/16/2010 02/22/2020 Ganglion cyst of wrist, left 10/2019 Last Assessment & Plan: Assessment: scheduled for EXCISION GANGLION WRIST LEFT 12/03/2019 documented as of this encounter (statuses as of 08/02/2022) [facility] of [facility] illness Narrative* Problem Noted Date Resolved Date Chronic cough 06/10/2017 11/25/2019 Nocturnal enuresis 10/16/2010 02/22/2020 Ganglion cyst of wrist, left 10/2019 Last Assessment & Plan: Assessment: scheduled for EXCISION GANGLION WRIST LEFT 12/03/2019 documented as of this encounter (statuses as of 11/21/2022) [facility] of Past illness Narrative* Problem Noted Date Diagnosed Date Resolved Date Chronic cough 06/10/2017 11/25/2019 Nocturnal enuresis 10/16/2010 0 Ganglion cyst of wrist, left 02/22/2020 Last Assessment & Plan: Assessment: scheduled for EXCISION GANGLION WRIST LEFT 12/03/2019 documented as of this encounter (statuses as of 01/23/2023) [place] [id number] History of Past illness Narrative* Problem Noted Date Diagnosed Date Resolved Date Chronic cough 06/10/2017 11/25/2019 Nocturnal enuresis 10/16/2010 0 Ganglion cyst of wrist, left 02/22/2020 Last Assessment & Plan: Assessment: scheduled for EXCISION GANGLION WRIST LEFT 12/03/2019 documented as of this encounter (statuses as of 04/02/2023) [facility] of Past illness Narrative* Problem Noted Date Diagnosed Date Resolved Date Chronic cough 06/10/2017 11/25/2019 Nocturnal enuresis 10/16/2010 0 Ganglion cyst of wrist, left 02/22/2020 Last Assessment & Plan: Assessment: scheduled for EXCISION GANGLION WRIST LEFT 12/03/2019 documented as of this encounter (statuses as of 07/24/2023) [facility] of Past illness Narrative* Problem Noted Date Diagnosed Date Resolved Date Chronic cough 06/10/2017 11/25/2019 Nocturnal enuresis 10/16/2010 0 Ganglion cyst of wrist, left 02/22/2020 Last Assessment & Plan: Assessment: scheduled for EXCISION GANGLION WRIST LEFT 12/03/2019 documented as of this encounter (statuses as of 08/01/2023) [facility] of Past illness Narrative* Problem Noted Date Diagnosed Date Resolved Date Chronic cough 06/10/2017 11/25/2019 Nocturnal enuresis 10/16/2010 0 Ganglion cyst of wrist, left 02/22/2020 Last Assessment & Plan: Assessment: scheduled for EXCISION GANGLION WRIST LEFT 12/03/2019 documented as of this encounter (statuses as of 08/01/2023) [facility] of Past illness Narrative* Problem Noted Date Diagnosed Date Resolved Date Chronic cough 06/10/2017 11/25/2019 Nocturnal enuresis 10/16/2010 0 Ganglion cyst of wrist, left 02/22/2020 Last Assessment & Plan: Assessment: scheduled for EXCISION GANGLION WRIST LEFT 12/03/2019 documented as of this encounter (statuses as of 08/19/2023) [facility] History of Past illness Narrative* Problem Noted Date Diagnosed Date Resolved Date Chronic cough 06/10/2017 11/25/2019 Nocturnal enuresis 10/16/2010 0 Ganglion cyst of wrist, left 02/22/2020 Last Assessment & Plan: Assessment: scheduled for EXCISION GANGLION WRIST LEFT 12/03/2019 documented as of this encounter (statuses as of 08/27/2023) [facility] of Past illness Narrative* Problem Noted Date Diagnosed Date Resolved Date Chronic cough 06/10/2017 11/25/2019 Nocturnal enuresis 10/16/2010 0 Ganglion cyst of wrist, left 02/22/2020 Last Assessment & Plan: Assessment: scheduled for EXCISION GANGLION WRIST LEFT 12/03/2019 documented as of this encounter (statuses as of 08/28/2023) [facility] of Past illness Narrative* Problem Noted Date Diagnosed Date Resolved Date Chronic cough 06/10/2017 11/25/2019 Nocturnal enuresis 10/16/2010 0 Ganglion cyst of wrist, left 02/22/2020 Last Assessment & Plan: Assessment: scheduled for EXCISION GANGLION WRIST LEFT 12/03/2019 documented as of this encounter (statuses as of 08/30/2023) [facility] of Past illness Narrative* Problem Noted Date Diagnosed Date Resolved Date Chronic cough 06/10/2017 11/25/2019 Nocturnal enuresis 10/16/2010 0 Ganglion cyst of wrist, left 02/22/2020 Last Assessment & Plan: Assessment: scheduled for EXCISION GANGLION WRIST LEFT 12/03/2019 documented as of this encounter (statuses as of 09/03/2023) [facility] Blane Alfred [facility] Note Date/Time August 17, 2024 1:51 am [facility] Medical Records Department [address] [place] [id number] Emergency Department Summary 08/17/24 MR#: [id number] Acct: [id number] Name: BEATRIS FLETCHER Rep #:[id number] : 2005 19 From: Blane Alfred MD PCP: Care Physician,No Primary Status :REG ER Location: ED HPI HPI - GI History of Present Illness Chief Complaint: Abd Pain Informant: patient and spouse/S.O. Abdominal Pain/Flank Pain Onset: Today Context: Gradual Onset Timing: Continuous Quality: Sharp and Stabbing Location: LLQ and Left Flank Current Severity: Moderate Maximum Severity: Severe Worsened by: Nothing Relieved by: Nothing Nausea/Vomiting/Emesis GI Symptom: Positive for Nausea, Vomiting and - (2 days ago resolved.) Severity: Mild Diarrhea/Melena/Hematochezia GI Symptom: Positive for Diarrhea and - (Days ago resolved.) Severity: Mild Associated Symptoms Associated Symptoms: Negative for Dysuria, Frequency, Hematuria or Urgency LMP: 1 to 2 weeks ago. Narrative Narrative: 19-year-old female status post on 05/25/2024. Vaginal delivery at that time. No prior abdominal surgeries. States 2 days ago she had some nausea vomiting diarrhea that all resolved. Today started having left flank left lowerquadrant abdominal pain. Denies any dysuria. No fever. Last menstrual period was 1 to 2 weeks ago. She currently has no bleeding or discharge. Prior similar symptoms: Yes Recent Illness/Hospitalization: No PFSH PFSH Medical History Anxiety Encounter for screening for COVID-19 Home Medications ?Medication ?Instructions ?Recorded ?Last Taken ?Type vit no.95-ferrous 1 tab PO DAILY 03/21/2411/10 21:00 History fumarate 28 mg-folic acid 800 mcg 1 TA B tablet () pantoprazole 40 mg granules 40 mg PO DAILY 05/25/24 09:00 History delayed-release for susp in packet 40 mg (Protonix) sennosides 8.6 mg-docusate sodium 1 - 2 tab PO DAILY P RN PRN 05/27/24 Unknown Rx 50 mg tablet (Stimulant Laxative Constipation #30 tabs Plus) hydrocodone-acetaminophen 5-325mg 1 tab PO Q4H PRN pako n 2 days #8 08/17/24 Unknown Rx 5mg-325mg tabs Allergy/AdvReac Type Severity Reaction Status Date / Time lactase (From [employer]) Allergy Mild Abdominal Verified 08/16/24 23:44 cramping Family History Grandfather Leukemia DVT (deep venous thrombosis) Grandmother Breast cancer Grandmother Diabetes Heart disease Lung cancer Surgical History History of surgery History of removal of cyst H/O tooth extraction Social History Smoking Status: Never smoker alcohol intake: never what type of physical activity do you participate in: additional details: gym, sports seatbelt use: always ROS ROS ED ROS Narrative Nausea, vomiting and diarrhea. Resolved. Left flank and left lower quadrant abdominal pain. Constitutional Constitutional ED: Denies chills or fever(s) ENT ENT ED: Denies ear pain Cardiovascular Cardiovascular: Denies chest pain Respiratory/Chest Respiratory/Chest: Denies cough or dyspnea Gastrointestinal Gastrointestinal: Reports abdominal pain, diarrhea, nausea and vomiting; Denies constipation or melena Genitourinary Genitourinary ED: Denies dysuria or hematuria Musculoskeletal Musculoskeletal: Denies arthralgias Integumentary Denies abscess Neurologic Neurologic: Denies headache(s) Psychiatric Psychiatric: Denies anxiety Endocrine Endocrinology: Denies polydipsia Hematologic/Lymphatic Hematologic/Lymphatic: Denies easy bleeding Allergic/Immunologic Allergic/Immunologic ED: Denies mouth swelling, tongue swelling or urticaria EXAM Physical Exam Narrative Exam Narrative: 19-year-old female sitting upright in bed. Accompanied by significant other. She is emotionally distraught. Complaining of left flank pain. H EENT exam pupils round react light. Moist mucous membranes. Neck nontender. Lungs clearto auscultation bilaterally. Heart regular rhythm rate about 65 no murmur. Chest wall ribs nontender. Back nontender. Abdomen nondistended normal bowel sounds. Tender in the left lower quadrant. No ecchymosis or bruising. No rebound or rigidity. No hernia or mass. No obstruction. Moving all 4 extremities. Normal strength. Nontender no edema. Neurologically she is awakeand alert. Answering questions following commands. Const Vital Signs: 08/16/24 23:40 08/17/24 01:23 Temperature 98.1 F 98.7 F Temperature Source Oral Pulse Rate 66 88 Respiratory Rate 18 16 Blood Pressure 129/73 H 123/71 H Blood Pressure Mean 91 88 Pulse Ox 100 98 Positive well nourished and well developed; Negative for cachectic, contracturesor unkempt General Appearance ED: well developed; Negative for unkempt, cachectic, contractures, NAD or pallor Nutritional Appearance: Negative for cachectic HEENT Reports moist mucous membranes normocephalic and atraumatic Eyes PERRL and EOMs intact bilaterally Neck no lymphadenopathy, supple and no JVD General: Negative for tenderness Carotids: Negative for other Lymph Lymphatic: Negative for other Resp normal respiratory effort and clear to auscultation bilaterally Auscultation: Negative for rales, rhonchi or wheezes Cardio regular rate, regular rhythm, S1 normal heart sound, S2 normal heart sound and no murmurs Rate: Negative for bradycardia or tachycardic Rhythm: Negative for abnormal rhythm GI non-distended and no masses; Negative for non-tender Inspection: Negative for abdominal distention Auscultation: normoactive bowel sounds Palpation: soft and tender; Negative for guarding, rigid, hepatomegaly, splenomegaly, hernia, mass, pulsatile mass or rebound tenderness present Back/Spine no CVA tenderness General Back: Negative for CVA tenderness Cervical Spine: Negative for cervical spine tenderness Thoracic Spine / Upper Back: Negative for thoracic spinal tenderness Lumbar Spine / Lower Back: Negative for lumbar spinal tenderness Extremity full ROM General Extremety ED: Negative for edema or tenderness General Extremity: Negative for edema Neuro CN's II-XII intact bilaterally and moves all extremities Sensorium / Orientation: alert, oriented to person, oriented to place and oriented to time; Negative for orientation impaired, confused or lethargic Motor Exam: strength 5/5 throughout Psych thought process normal; Negative for mental status grossly normal Appearance: Negative for unkempt Mood & Affect: anxious and tearful Skin no wounds General Skin Exam: Negative for jaundice or pallor Lesions: no lesions Rashes: no rashes Trauma: Negative for abrasion Nails: Negative for discolored MDM MDM MDM Narrative Medical decision making narrative: 19-year-old female left side and left lower quadrant left flank pain. Differential would include diverticulitis, ovarian cyst, kidney stone, UTI versus other. CAT scan labs are being obtained. Morphine for pain Zofran for nausea. IV fluids. Repeat exam at 1:10 AM patient is starting to feel much better. She is given 2 doses of morphine. Zofran and Toradol. CAT scan shows a 2 mm left UVJ kidney stone. Consistent with her history and exam. Awaiting her urine results. Should be discharged home with Toradol and Motrin for pain. Urine strainer. Follow-up as needed. Patient doing well at 1:51 AM. Will be discharged home and treated as a kidney stone. [place] for pain. Motrin. Fluids. Urine strainer. Urology as needed. This should pass. History & Record Review Discussion w/independent historian: Patient Additional record(s) reviewed:: Prior inpatient record, Prior outpatient record,Prior ED visit and Prior labs Lab Data Attestation: I reviewed the patient's lab results. Lab results narrative: CBC normal. White count of 6.5. H&H 12 and 36. Platelets 186. Electrolytes show gap 14. BUN and creatinine of 16 and 0.9. Glucose 122. Liver enzymes unremarkable. Lipase normal at 22. Serum test negative. UA shows no infection. Occult blood. Greater than 100 red cells. No white cells. 1+ bacteria. No nitrates. Labs: Laboratory Results - last 24 hr 08/17/24 08/17/24 00:07 00:52 WBC 6.5 RBC 4.52 Hgb 12.9 Hct 36.6 L MCV 81.0 MCH 28.5 MCHC 35.2 RDW Std Deviation 36.1 RDW Coeff of Kirsten 12.5 Plt Count 186 MPV 11.4 Immature Gran % (Auto) 0.300 Neut % (Auto) 45.2 L Lymph % (Auto) 45.9 H [place] % (Auto) 6.6 Eos % (Auto) 1.7 Baso % (Auto) 0.3 Absolute Neuts (auto) 2.9 Absolute Lymphs (auto) 2.97 Nucleated RBC % 0 Sodium 140 Potassium 3.4 Chloride 104 Carbon Dioxide 22.0 Anion Gap 14 BUN 16 Creatinine 0.99 Estim Creat Clear Calc 88.92 Est GFR (MDRD) Non-Af 84 BUN/Creatinine Ratio 16.6 Glucose 122 H Calcium 9.2 Total Bilirubin 0.72 AST 29 ALT 39 H Alkaline Phosphatase 57 Total Protein 7.3 Albumin 4.6 Globulin 2.8 Albumin/Globulin Ratio 1.7 Lipase 22 Serum , Qual NEGATIVE Urine Color Yellow Urine Clarity Clear Urine pH 7.0 Ur Specific [place] 1.010 Urine Protein 30 H Urine Glucose (UA) Normal Urine Ketones 15 H Urine Occult Blood 150 H Urine Nitrite Negative Urine Bilirubin Negative Urine Urobilinogen 1 H Ur Leukocyte Esterase 25 H Urine RBC > 100 SEEN Urine WBC 0 SEEN Ur Squamous Epith Cells 0-5 SEEN Urine Bacteria 1+ Urine Mucus RARE Radiography Diagnostic Testing: Clinical Impression(s) from Imaging Studies Abdomen/Pelvis CT 08/17/24 00:00 IMPRESSION: There is a 2 mm presenting axis left UVJ stone for example axial 99 with mild left hydroureteronephrosis. Based on size likely will spontaneously passed. Mild asymmetrically decreased appearance of the left nephrogram suggesting slight renal nephrogram delay for example coronal 64. No perinephric stranding or urothelial thickening seen. Reading Location: [facility] CT of the abdomen pelvis with IV contrast shows a 2 mm left UVJ stone with hydroureter and hydronephrosis. Interpreted by the radiologist and myself. Discharge Plan Triage Chief Complaint: Abd Pain ED Provider: Blane Alfred Dx/Rx/DC Orders Clinical Impression: Abdominal pain, Kidney stone on left side Instructions: ED Kidney Stone with Pain Prescriptions: New hydrocodone-acetaminophen 5-325 mg tablet 1 tab PO Q4H PRN (Reason: pain) 2 Days Qty: 8 0RF No Action PNV cmb#95-ferrous fumarate-FA [] 28 mg iron- 800 mcg tablet 1 tab PO DAILY pantoprazole [Protonix] [address] for susp in packet 40 mg PO DAILY sennosides-docusate sodium [Stimulant Laxative Plus] 8.6-50 mg Tablet 1 - 2 tab PO DAILY PRN PRN (Reason: Constipation) Qty: 30 0RF Primary Care Provider: Care Physician,No Primary Referrals: Nurys Cervantes MD [Med Staff - Active Staff] - As Needed Care Physician,No Primary [Primary Care Provider] - Activity Restrictions/Additional Instructions: Your pain is from a 2 mm kidney stone on the left. It is already all the way down by your bladder. It should pass without any difficulty. Once he gets in your bladder your pain should resolve. [place] for severe pain. Otherwise you can use Motrin and Tylenol. Follow-up with your doctor as needed. Follow-up with the urologist as needed. But again it is a 2 mm stone should pass without any difficulty. Strain your urine to look to see if the stone passes. It will look like a tiny piece of gravel. Make sure you are drinking plenty of fluids it is the best way to prevent kidneystones. Print Language: Estonian Disposition Disposition: Home, Self Care What to do if you have Problems For any increased pain, shortness of breath, bleeding, nausea or vomiting, chestpain, or any unexpected problems, contact your Primary Care Provider. Call [facility] ([phone]) or report to the closest Emergency Room. Call 911 if necessary. 08/17/24 0151 <Electronically signed by Blane Alfred MD> Cosigner Signature (if applicable): CC: No Primary Care Physician ~ Signed [facility] Work Phone: Evaluation note* Diagnosis Pain Generalized pain Chronic pain of left knee Pain in joint, lower leg [facility] Diagnosis Chronic pain of left knee- Primary Pain in joint, lower leg 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 [facility] Diagnosis Chronic pain of left [...] classified, lower leg [facility] Diagnosis Patellar dislocation, left, subsequent [...] following other surgery [facility] Diagnosis Patellar dislocation, left, subsequent encounter- Primary S/P orthopedic surgery, follow-up exam Follow-up examination, following other surgery [facility] Diagnosis Patellar dislocation, left, subsequent encounter- Primary S/P orthopedic surgery, follow-up exam Follow-up examination, following other surgery [facility]* Diagnosis S/P knee surgery- Primary Other postprocedural status [facility]* Diagnosis Cat bite, initial encounter- Primary [facility]* Diagnosis Myopia, bilateral- Primary Myopia [facility]* Diagnosis Sore throat- Primary Acute pharyngitis URI, acute Acute upper respiratory infections of unspecified site [facility] Diagnosis Rash- Primary Rash and other nonspecific skin eruption [facility]* Diagnosis Sore throat- Primary Acute pharyngitis [facility] noteNo assessment information availableWParkview Health Work Phone: Evaluation note* Diagnosis Chronic pain of left knee- Primary Pain in joint, lower leg [facility] Diagnosis Chronic pain of left knee Pain in joint, lower leg [facility]* Diagnosis S/P knee surgery- Primary Other postprocedural status Loose body in knee, left knee [facility]* Diagnosis S/P knee surgery Other postprocedural status [facility] Diagnosis S/P knee surgery- Primary Other postprocedural status [facility] Diagnosis Nausea- Primary Nausea alone [facility] Diagnosis S/P knee surgery Other postprocedural status Loose body in knee, left knee [facility] Diagnosis S/P knee surgery- Primary Other postprocedural status [facility] Diagnosis Nausea- Primary Nausea alone [facility] Diagnosis Dizziness- Primary Dizziness and giddiness Nausea and vomiting, unspecified vomiting type [facility] Diagnosis Myopia, bilateral- Primary Myopia [facility] Diagnosis with uncertain dates, antepartum- Primary state, incidental Encounter for care in first trimester of first Generalized anxiety disorder History of depression Personal history of other mental disorder Supervision of normal first teen in second trimester Acute vaginitis Vaginitis and vulvovaginitis, unspecified Nausea and vomiting during Normal first with uncertain date of LMP, antepartum Supervision of normal first [facility] Diagnosis Generalized anxiety disorder- Primary History of depression Personal history of other mental disorder Supervision of normal first teen in second trimester Nausea and vomiting during Normal first with uncertain date of LMP, antepartum Supervision of normal first [facility] Diagnosis Encounter for screening for malformation using ultrasound- Primary 12 weeks gestation of state, incidental 12 weeks gestation of - Primary state, incidental [facility] Diagnosis Encounter for screening for malformation using ultrasound- Primary 12 weeks gestation of state, incidental [facility] Diagnosis Supervision of normal first teen in second trimester- Primary Nausea and vomiting during Normal first with uncertain date of LMP, antepartum Supervision of normal first Generalized anxiety disorder History of depression Personal history of other mental disorder 12 weeks gestation of state, incidental [facility]* Diagnosis Nausea- Primary Nausea alone documented in this encounter [facility]* Diagnosis Supervision of normal first teen in second trimester- Primary 15 weeks gestation of state, incidental Nausea and vomiting during Generalized anxiety disorder History of depression Personal history of other mental disorder Rubella non-immune status, antepartum Other specified complication, antepartum documented in this encounter [facility] note* Diagnosis Supervision of normal first teen in second trimester- Primary Nausea and vomiting during History of depression Personal history of other mental disorder Rubella non-immune status, antepartum Other specified complication, antepartum Generalized anxiety disorder 20 weeks gestation of state, incidental Back pain in Other specified complication of , unspecified as to episode of care documented in this encounter [facility] note* Diagnosis Encounter for anatomic survey- Primary 20 weeks gestation of state, incidental documented in this encounter [facility] note* Diagnosis Pain Generalized pain documented in this encounter [facility] note* Diagnosis Pain Generalized pain documented in this encounter [facility] note* Diagnosis Encounter for care in first trimester of first documented in this encounter [facility] note* Diagnosis 24 weeks gestation of - Primary state, incidental Supervision of normal first teen in second trimester Generalized anxiety disorder Rubella non-immune status, antepartum Other specified complication, antepartum History of depression Personal history of other mental disorder Encounter for care in first trimester of first Heartburn during in second trimester documented in this encounter [facility] note* Diagnosis Viral URI- Primary Acute upper respiratory infections of unspecified site documented in this encounter [facility] note* Diagnosis Elevated glucose tolerance test- Primary Impaired glucose tolerance test documented in this encounter [facility] note* Diagnosis Supervision of normal first teen in second trimester- Primary Need for vaccination Need for prophylactic vaccination and inoculation against unspecified single disease Heartburn during in third trimester Low-lying placenta Hemorrhage from placenta previa, unspecified as to episode of care Rubella non-immune status, antepartum Other specified complication, antepartum Generalized anxiety disorder History of depression Personal history of other mental disorder documented in this encounter [facility] note* Diagnosis 29 weeks gestation of - Primary state, incidental Encounter for supervision of normal first in third trimester Supervision of normal first Rubella non-immune status, antepartum Other specified complication, antepartum Low-lying placenta Hemorrhage from placenta previa, unspecified as to episode of care [facility] Diagnosis 32 weeks gestation of - Primary state, incidental Encounter for supervision of normal first in third trimester Supervision of normal first Low-lying placenta Hemorrhage from placenta previa, unspecified as to episode of care Heartburn during in third trimester [facility] Diagnosis Encounter for ultrasound to check growth- Primary Encounter for routine screening for malformation using ultrasonics Suspected placental problem not found 32 weeks gestation of state, incidental [facility] Diagnosis 34 weeks gestation of - Primary state, incidental Encounter for supervision of normal first in third trimester Supervision of normal first Rubella non-immune status, antepartum Other specified complication, antepartum Heartburn during in third trimester [facility]* Diagnosis Supervision of normal first teen in second trimester- Primary Heartburn during in third trimester Rubella non-immune status, antepartum Other specified complication, antepartum History of depression Personal history of other mental disorder Uterine size-date discrepancy in third trimester Uterine size date discrepancy, antepartum condition or complication [facility]* Diagnosis Encounter for supervision of normal first in third trimester- Primary Supervision of normal first Uterine size-date discrepancy in third trimester Uterine size date discrepancy, antepartum condition or complication Need for RSV vaccination Need for prophylactic vaccination and inoculation against respiratory syncytial virus 36 weeks gestation of state, incidental [facility]* Diagnosis 2 weeks follow-up- Primary Lactating mother care and examination of lactating mother First-degree perineal laceration in First-degree perineal laceration, unspecified as to episode of care in Generalized anxiety disorder [facility]* Diagnosis Post depression- Primary Mental disorders of mother, [facility]* Diagnosis 2 weeks follow-up- Primary Post depression Mental disorders of mother, [facility]* Diagnosis Post depression- Primary Mental disorders of mother, Generalized anxiety disorder [facility]* Diagnosis care and examination- Primary Routine follow-up Encounter for IUD insertion Encounter for insertion of intrauterine contraceptive device Post depression Mental disorders of mother, Generalized anxiety disorder [facility] Diagnosis Acute cough- Primary Rhinosinusitis Unspecified sinusitis (chronic) Acute cough [facility] Acute cough [facility] Diagnosis Encounter for care in first trimester of first (HCC) documented [facility] Diagnosis Encounter for IUD insertion- Primary Encounter for insertion of intrauterine contraceptive device [facility] Additional Instructions Please follow-up with crisis center as directed regarding your event that occurred this evening. If you have any further concerns or worsening of symptoms please return to the ER for repeat evaluationWParkview Health Work Phone: Hospital Discharge instructions Additional Instructions Your pain is from a 2 mm kidney stone on the left. It is already all the way down by your bladder. It should pass without any difficulty. Once he gets in your bladder your pain should resolve. [place] for severe pain. Otherwise you can use Motrin and Tylenol. Follow-up with your doctor as needed. Follow-up with the urologist as needed. But again it is a 2 mm stone should pass without any difficulty. Strain your urine to look to see if the stone passes. It will look like a tiny piece of gravel. Make sure you are drinking plenty of fluids it is the best way to prevent kidney stones.[facility] Work Phone: Reason for referral (narrative)* Diagnostic Procedure Only (Routine) - Closed Specialty Diagnoses / Procedures Referred By Natasha burch Referred To Contact XR IMAGING Diagnoses Chronic pain of left knee Procedures XR KNEE GENERAL 4V AP BOTH/PA BOTH/LAT/MERC LEFT RADIOLOGIC EXAM KNEE COMPLETE 4/MORE VIEWS Mayda Solares DO [address] [place] [address] Xr Imaging Referral ID Status Reason Start Date Expiration Date V isits Requested Visits Authorized [id number] Closed Auto-Generate d Referral 09/26/2021 10/26/2022 1 1 [facility] for referral (narrative)* Diagnostic Procedure Only (Routine) - Pending Review Specialty Diagnoses / Procedures Referred By Contac t Referred To Contact XR IMAGING Diagnoses Chronic pain of left knee Procedures XR KNEE GENERAL 4V AP BOTH/PA BOTH/LAT/MERC LEFT RADIOLOGIC EXAM KNEE COMPLETE 4/MORE VIEWS Mayda Solares DO [address] [place] [address] [place] [address] Referral ID Status Reason Start Date Expiration Date Visits Requested Visits Authorized [id number] Pending Review Auto-Generat ed Referral 07/24/2023 08/22/2024 1 1 [facility] for referral (narrative)* Diagnostic Procedure Only (Routine) - Closed Specialty Diagnoses / Procedures Referred By Contac t Referred To Contact XR IMAGING Diagnoses Chronic pain of left knee Procedures XR KNEE GENERAL 4V AP BOTH/PA BOTH/LAT/MERC LEFT RADIOLOGIC EXAM KNEE COMPLETE 4/MORE VIEWS Mayda Solares DO [address] [place] [address] [place] [address] Referral ID Status Reason Start Date Expiration Date V isits Requested Visits Authorized [id number] Closed Auto-Generate d Referral 07/24/2023 08/22/2024 1 1 [facility] for referral (narrative)* Diagnostic Procedure Only (Routine) - New Request Specialty Diagnoses / Procedures Referred By Contac t Referred To Contact [facility] Diagnoses 12 weeks gestation of Procedures NUCHAL TRANSLUCENCY WHI US NUCHAL TRANSLUCENCY 1ST GESTATION Anitra Caldwell APRN[address] [place] [address] [facility] [address] [place] [address] Referral ID Status Reason Start Date Expiration Date Visits Requested Visits Authorized [id number] New Request Auto-Generat ed Referral 11/28/2023 11/27/2024 1 1 [facility] for referral (narrative)* Diagnostic Procedure Only (Routine) - New Request Specialty Diagnoses / Procedures Referred By Contac t Referred To Contact [facility] Diagnoses Supervision of normal first teen in second trimester Procedures OBSTETRIC ULTRASOUND WHI US PREG UTERUS AFTER 1ST TRIMEST GESTATION Anitra Caldwell APRN.CNM [address] [place] [address] [facility] [address] [place] [address] Referral ID Status Reason Start Date Expiration Date Visits Requested Visits Authorized [id number] New Request Auto-Generat ed Referral 11/28/2023 11/27/2024 1 1 [facility] for referral (narrative)* Diagnostic Procedure Only (Urgent) - Closed Specialty Diagnoses / Procedures Referred By Contac t Referred To Contact XR IMAGING Diagnoses Pain Procedures XR FOOT GENERAL 3V AP/LAT/OBL RIGHT RADEX FOOT COMPLETE MINIMUM 3 VIEWS Zhanna Hazel APRN.CNP [address] [place] [address] [place] [address] Referral ID Status Reason Start Date Expiration Date V isits Requested Visits Authorized [id number] Closed Auto-Generate d Referral 02/18/2023 03/19/2024 1 1 [facility] for referral (narrative)* Diagnostic Procedure Only (Urgent) - Closed Specialty Diagnoses / Procedures Referred By Contac t Referred To Contact XR IMAGING Diagnoses Pain Procedures XR ANKLE GENERAL 3V AP/LAT/OBL RIGHT RADEX ANKLE COMPLETE MINIMUM 3 VIEWS Zhanna Hazel APRN.CNP [address] [place] [address] [place] [address] Referral ID Status Reason Start Date Expiration Date V isits Requested Visits Authorized [id number] Closed Auto-Generate d Referral 02/18/2023 03/19/2024 1 1 [facility] for referral (narrative)No reason for referral information availableWParkview Health Work Phone: Reason for visit Narrative* Diagnostic Procedure Only (Routine) - Closed Specialty Diagnoses / Procedures Referred By Contac t Referred To Contact XR IMAGING Diagnoses Pain Procedures XR KNEE GENERAL 4V AP BOTH/PA BOTH/LAT/MERC RIGHT RADIOLOGIC EXAM KNEE COMPLETE 4/MORE VIEWS Mayda Solares DO [address] [place] [address] Xr Imaging Referral ID Status Reason Start Date Expiration Date V isits Requested Visits Authorized [id number] Closed Auto-Generate d Referral 08/17/2021 09/16/2022 1 1 [facility] for visit Narrative* Diagnostic Procedure Only (Routine) - Closed Specialty Diagnoses / Procedures Referred By Contac t Referred To Contact XR IMAGING Diagnoses Chronic pain of left knee Procedures XR KNEE GENERAL 4V AP BOTH/PA BOTH/LAT/MERC LEFT RADIOLOGIC EXAM KNEE COMPLETE 4/MORE VIEWS Mayda Solares DO [address] [facility] [address] [place] [address] [place] [address] Referral ID Status Reason Start Date Expiration Date V isits Requested Visits Authorized [id number] Closed Auto-Generate d Referral 07/24/2023 08/22/2024 1 1 [facility] for visit Narrative* Diagnostic Procedure Only (Urgent) - Closed Specialty Diagnoses / Procedures Referred By Contac t Referred To Contact XR IMAGING Diagnoses Pain Procedures XR FOOT GENERAL 3V AP/LAT/OBL RIGHT RADEX FOOT COMPLETE MINIMUM 3 VIEWS Zhanna Hazel APRN.CNP [address] [place] [address] [place] [address] Referral ID Status Reason Start Date Expiration Date V isits Requested Visits Authorized [id number] Closed Auto-Generate d Referral 02/18/2023 03/19/2024 1 [facility] Diagnostic Procedure Only (Urgent) - Closed Specialty Diagnoses / Procedures Referred By Contac t Referred To Contact XR IMAGING Diagnoses Pain Procedures XR ANKLE GENERAL 3V AP/LAT/OBL RIGHT RADEX ANKLE COMPLETE MINIMUM 3 VIEWS Zhanna Hazel, ESAU.[employer] SUPERINTENDENT [address] [place] [address] [place] [address] Referral ID Status Reason Start Date Expiration Date V isits Requested Visits Authorized [id number] Closed Auto-Generate d Referral 02/18/2023 03/19/2024 1 1 [facility] Summary Purpose Family History No Family History Records Found Relationship Condition Age at Onset Recorded Date/T guera grandfather Leukemia Unknown Deep vein thrombosis (DVT) Unknown grandmother Malignant neoplasm of breast Unknown grandmother Diabetes mellitus Unknown Cardiac disease Unknown Malignant neoplasm of lung Unknown Advance Directives No Advanced Directives Records Found Advance Directive Response Recorded Date/ Time Living Will No June 03 12:42am Power of Pillowcase Folder No June 03, 2023 12:42am Advance Directive Response Recorded Date/ Time Living Will No May 25 12:56pm Do you have a Healthcare Power of Pillowcase Folder? No May 25, 2024 12:56pm Living Will No August 17, 2024 1:18am Do you have a Healthcare Power of Pillowcase Folder? No August 17, 2024 1:18am Reason for Referral Specialty Diagnoses / Procedures Referred By Contac t Referred To Contact [facility] IMAGING Diagnoses Chronic pain of left knee Knee OCD Procedures MRI KNEE WO IVCON LT MRI ANY JT LOWER EXTREM W/O CONTRAST Mayda Lemons DO [address] [place] [address] Mr Imaging Referral ID Status Reason Start Date Expiration Date V isits Requested Visits Authorized [id number] Closed Auto-Generate d Referral 09/28/2021 10/27/2021 1 1 Specialty Diagnoses / Procedures Referred By Contact Referred To Contact [facility] Diagnoses Patellar dislocation, left, subsequent encounter S/P orthopedic surgery, follow-up exam Procedures CONSULT TO PHYSICAL THERAPY PHYSICAL THERAPY EVALUATION HIGH COMPLEX 45 MINS Otoniel Gates PA-C [address] [place] [address] [facility] [address] [address] Referral ID Status Reason Start Date Expiration Date Visits Requested Visits Authorized [id number] Pending Review Auto-Generat ed Referral 12/26/2021 12/26/2022 1 1 Referral ID Status Reason Start Date Expiration Date Visits Requested Visits Authorized [id number] Pending Review Auto-Generat ed Referral 12/26/2021 12/26/2022 1 1 Specialty Diagnoses / Procedures Referred By Contac t Referred To Contact [facility] Diagnoses Patellar dislocation, left, subsequent encounter S/P orthopedic surgery, follow-up exam Procedures PT REHAB FOLLOW UP ORDER THERAPEUTIC EXERCISES RE, EA 15 MIN. June Staton, PT [facility] [address] [address] Referral ID Status Reason Start Date Expiration Date Visits Requested Visits Authorized [id number] Pending Review PCP Requested Referral Auto-Generate d Referral 02/04/2022 05/05/2022 1 1 Specialty Diagnoses / Procedures Referred By Contac t Referred To Contact [facility] IM[facility] Diagnoses S/P knee surgery Loose body in knee, left knee Procedures MRI KNEE WO IVCON LEFT MRI ANY JT LOWER EXTREM W/O CONTRAST MATRL Mayda Solares DO [address] [place] [address] [place] [address] Referral ID Status Reason Start Date Expiration Date Visits Requested Visits Authorized [id number] Pending Review Auto-Generat ed Referral 07/31/2023 08/29/2024 1 1 Specialty Diagnoses / Procedures Referred By Contac t Referred To Contact [facility] Diagnoses S/P knee surgery Procedures CONSULT TO PHYSICAL THERAPY PHYSICAL THERAPY EVALUATION HIGH COMPLEX 45 MINS Mayda Solares DO [address] [place] [address] [facility] [address] [address] Referral ID Status Reason Start Date Expiration Date Visits Requested Visits Authorized [id number] Authorized Auto-Generat ed Referral 05/19/2023 05/18/2024 30 30 Specialty Diagnoses / Procedures Referred By Contac t Referred To Contact [facility] IMAGING Diagnoses S/P knee surgery Loose body in knee, left knee Procedures MRI KNEE WO IVCON LEFT MRI ANY JT LOWER EXTREM W/O CONTRAST Mayda Lemons DO [address] [place] [address] [facility] [address] [place] [address] Referral ID Status Reason Start Date Expiration Date V isits Requested Visits Authorized [id number] Closed Auto-Generate d Referral 07/31/2023 11/20/2023 1 1 Specialty Diagnoses / Procedures Referred By Contac t Referred To Contact Diagnoses 2 weeks follow-up Generalized anxiety disorder Procedures CONSULT TO [facility] OFFICE/OUTPATIENT [facility] 60 MINUTES Leena Gaytan APRN.[facility] [address] [place] [address] Referral ID Status Reason Start Date Expiration Date Visits Requested Visits Authorized [id number] Authorized PCP Requested Referral 06/17/2024 06/17/2025 1 1 Specialty Diagnoses / Procedures Referred By Contac t Referred To Contact Diagnoses Post depression Procedures CONSULT TO PSYCHIATRY OFFICE/OUTPATIENT [facility] 60 MINUTES Nataliia Vail LISW [address] [place] [address] Referral ID Status Reason Start Date Expiration Date Visits Requested Visits Authorized [id number] Pending Review PCP Requested Referral 06/24/2024 06/24/2025 1 1 Medications Administered Section Active Administered [...] Given 08/02/2022 10:00 AM EDT 1 Drop Chief Complaint and Reason for Visit Chief Complaint mental health Chief Complaint Admit Date VAG May 25, 2024 11 :24am abd pain August 16, 2024 11: 40pm Reason for Visit Admit Date (spontaneous vaginal delivery) Janua ry 2024 11:24am 37 weeks gestation of May 25, 2024 11:24am History of depression May 25, 2024 11:24am Rubella non-immune status, antepartum Ja nuary 2024 11:24am Additional Source Comments INFORMATION SOURCE (unrecogn ized section and content) DATE CREATED AUTHOR 12/10/2019 [facility] DATE CREATED AUTHOR AUTHOR'S ORGANIZ ATION 09/28/2021 [facility] DATE CREATED AUTHOR AUTHOR'S ORGANIZ ATION 04/25/2023 [facility] DATE CREATED AUTHOR AUTHOR'S ORGANIZ ATION 08/24/2024 [facility] DATE CREATED AUTHOR AUTHOR'S ORGANIZ ATION 11/28/2024 [facility] Source Comments (unrecognize d section and content) In the event this informatio n is protected by the Federal Confidentiality of Alcohol and Drug Abuse Patient Records regulations: The Federal rules restrict any use of the information to criminally investigate or prosecute any alcohol or drug abuse patient.[facility] the event this information is protected by the Federal Confidentiality of Alcohol and Drug Abuse Patient Records regulations: The Federal rules restrict any use of the information to criminally investigate or prosecute any alcohol or drug abuse patient.[facility] CenterIn the event this information is protected by the Federal Confidentiality of Alcohol and Drug Abuse Patient Records regulations: The Federal rules restrict any use of the information to criminally investigate or prosecute any alcohol or drug abuse patient.[facility] CenterIn the event this information is protected by the Federal Confidentiality of Alcohol and Drug Abuse Patient Records regulations: The Federal rules restrict any use of the information to criminally investigate or prosecute any alcohol or drug abuse patient.[facility] CenterIn the event this information is protected by the Federal Confidentiality of Alcohol and Drug Abuse Patient Records regulations: The Federal rules restrict any use of the information to criminally investigate or prosecute any alcohol or drug abuse patient.[facility] CenterIn the event this information is protected by the Federal Confidentiality of Alcohol and Drug Abuse Patient Records regulations: The Federal rules restrict any use of the information to criminally investigate or prosecute any alcohol or drug abuse patient.[facility] CenterIn the event this information is protected by the Federal Confidentiality of Alcohol and Drug Abuse Patient Records regulations: The Federal rules restrict any use of the information to criminally investigate or prosecute any alcohol or drug abuse patient.[facility] CenterIn the event this information is protected by the Federal Confidentiality of Alcohol and Drug Abuse Patient Records regulations: The Federal rules restrict any use of the information to criminally investigate or prosecute any alcohol or drug abuse patient.[facility] CenterIn the event this information is protected by the Federal Confidentiality of Alcohol and Drug Abuse Patient Records regulations: The Federal rules restrict any use of the information to criminally investigate or prosecute any alcohol or drug abuse patient.[facility] CenterIn the event this information is protected by the Federal Confidentiality of Alcohol and Drug Abuse Patient Records regulations: The Federal rules restrict any use of the information to criminally investigate or prosecute any alcohol or drug abuse patient.[facility] CenterIn the event this information is protected by the Federal Confidentiality of Alcohol and Drug Abuse Patient Records regulations: The Federal rules restrict any use of the information to criminally investigate or prosecute any alcohol or drug abuse patient.[facility] CenterIn the event this information is protected by the Federal Confidentiality of Alcohol and Drug Abuse Patient Records regulations: The Federal rules restrict any use of the information to criminally investigate or prosecute any alcohol or drug abuse patient.[facility] CenterIn the event this information is protected by the Federal Confidentiality of Alcohol and Drug Abuse Patient Records regulations: The Federal rules restrict any use of the information to criminally investigate or prosecute any alcohol or drug abuse patient.[facility] CenterIn the event this information is protected by the Federal Confidentiality of Alcohol and Drug Abuse Patient Records regulations: The Federal rules restrict any use of the information to criminally investigate or prosecute any alcohol or drug abuse patient.[facility] CenterIn the event this information is protected by the Federal Confidentiality of Alcohol and Drug Abuse Patient Records regulations: The Federal rules restrict any use of the information to criminally investigate or prosecute any alcohol or drug abuse patient.[facility] CenterIn the event this information is protected by the Federal Confidentiality of Alcohol and Drug Abuse Patient Records regulations: The Federal rules restrict any use of the information to criminally investigate or prosecute any alcohol or drug abuse patient.[facility] CenterIn the event this information is protected by the Federal Confidentiality of Alcohol and Drug Abuse Patient Records regulations: The Federal rules restrict any use of the information to criminally investigate or prosecute any alcohol or drug abuse patient.[facility] CenterIn the event this information is protected by the Federal Confidentiality of Alcohol and Drug Abuse Patient Records regulations: The Federal rules restrict any use of the information to criminally investigate or prosecute any alcohol or drug abuse patient.[facility] CenterIn the event this information is protected by the Federal Confidentiality of Alcohol and Drug Abuse Patient Records regulations: The Federal rules restrict any use of the information to criminally investigate or prosecute any alcohol or drug abuse patient.[facility] CenterIn the event this information is protected by the Federal Confidentiality of Alcohol and Drug Abuse Patient Records regulations: The Federal rules restrict any use of the information to criminally investigate or prosecute any alcohol or drug abuse patient.[facility] CenterIn the event this information is protected by the Federal Confidentiality of Alcohol and Drug Abuse Patient Records regulations: The Federal rules restrict any use of the information to criminally investigate or prosecute any alcohol or drug abuse patient.[facility] CenterIn the event this information is protected by the Federal Confidentiality of Alcohol and Drug Abuse Patient Records regulations: The Federal rules restrict any use of the information to criminally investigate or prosecute any alcohol or drug abuse patient.[facility] CenterIn the event this information is protected by the Federal Confidentiality of Alcohol and Drug Abuse Patient Records regulations: The Federal rules restrict any use of the information to criminally investigate or prosecute any alcohol or drug abuse patient.[facility] CenterIn the event this information is protected by the Federal Confidentiality of Alcohol and Drug Abuse Patient Records regulations: The Federal rules restrict any use of the information to criminally investigate or prosecute any alcohol or drug abuse patient.[facility] CenterIn the event this information is protected by the Federal Confidentiality of Alcohol and Drug Abuse Patient Records regulations: The Federal rules restrict any use of the information to criminally investigate or prosecute any alcohol or drug abuse patient.[facility] CenterIn the event this information is protected by the Federal Confidentiality of Alcohol and Drug Abuse Patient Records regulations: The Federal rules restrict any use of the information to criminally investigate or prosecute any alcohol or drug abuse patient.[facility] CenterIn the event this information is protected by the Federal Confidentiality of Alcohol and Drug Abuse Patient Records regulations: The Federal rules restrict any use of the information to criminally investigate or prosecute any alcohol or drug abuse patient.[facility] CenterIn the event this information is protected by the Federal Confidentiality of Alcohol and Drug Abuse Patient Records regulations: The Federal rules restrict any use of the information to criminally investigate or prosecute any alcohol or drug abuse patient.[facility] CenterIn the event this information is protected by the Federal Confidentiality of Alcohol and Drug Abuse Patient Records regulations: The Federal rules restrict any use of the information to criminally investigate or prosecute any alcohol or drug abuse patient.[facility] CenterIn the event this information is protected by the Federal Confidentiality of Alcohol and Drug Abuse Patient Records regulations: The Federal rules restrict any use of the information to criminally investigate or prosecute any alcohol or drug abuse patient.[facility] CenterIn the event this information is protected by the Federal Confidentiality of Alcohol and Drug Abuse Patient Records regulations: The Federal rules restrict any use of the information to criminally investigate or prosecute any alcohol or drug abuse patient.[facility] CenterIn the event this information is protected by the Federal Confidentiality of Alcohol and Drug Abuse Patient Records regulations: The Federal rules restrict any use of the information to criminally investigate or prosecute any alcohol or drug abuse patient.[facility] CenterIn the event this information is protected by the Federal Confidentiality of Alcohol and Drug Abuse Patient Records regulations: The Federal rules restrict any use of the information to criminally investigate or prosecute any alcohol or drug abuse patient.[facility] CenterIn the event this information is protected by the Federal Confidentiality of Alcohol and Drug Abuse Patient Records regulations: The Federal rules restrict any use of the information to criminally investigate or prosecute any alcohol or drug abuse patient.[facility] CenterIn the event this information is protected by the Federal Confidentiality of Alcohol and Drug Abuse Patient Records regulations: The Federal rules restrict any use of the information to criminally investigate or prosecute any alcohol or drug abuse patient.[facility] CenterIn the event this information is protected by the Federal Confidentiality of Alcohol and Drug Abuse Patient Records regulations: The Federal rules restrict any use of the information to criminally investigate or prosecute any alcohol or drug abuse patient.[facility] CenterIn the event this information is protected by the Federal Confidentiality of Alcohol and Drug Abuse Patient Records regulations: The Federal rules restrict any use of the information to criminally investigate or prosecute any alcohol or drug abuse patient.[facility] CenterIn the event this information is protected by the Federal Confidentiality of Alcohol and Drug Abuse Patient Records regulations: The Federal rules restrict any use of the information to criminally investigate or prosecute any alcohol or drug abuse patient.[facility] CenterIn the event this information is protected by the Federal Confidentiality of Alcohol and Drug Abuse Patient Records regulations: The Federal rules restrict any use of the information to criminally investigate or prosecute any alcohol or drug abuse patient.[facility] CenterIn the event this information is protected by the Federal Confidentiality of Alcohol and Drug Abuse Patient Records regulations: The Federal rules restrict any use of the information to criminally investigate or prosecute any alcohol or drug abuse patient.[facility] CenterIn the event this information is protected by the Federal Confidentiality of Alcohol and Drug Abuse Patient Records regulations: The Federal rules restrict any use of the information to criminally investigate or prosecute any alcohol or drug abuse patient.[facility] CenterIn the event this information is protected by the Federal Confidentiality of Alcohol and Drug Abuse Patient Records regulations: The Federal rules restrict any use of the information to criminally investigate or prosecute any alcohol or drug abuse patient.[facility] CenterIn the event this information is protected by the Federal Confidentiality of Alcohol and Drug Abuse Patient Records regulations: The Federal rules restrict any use of the information to criminally investigate or prosecute any alcohol or drug abuse patient.[facility] CenterIn the event this information is protected by the Federal Confidentiality of Alcohol and Drug Abuse Patient Records regulations: The Federal rules restrict any use of the information to criminally investigate or prosecute any alcohol or drug abuse patient.[facility] CenterIn the event this information is protected by the Federal Confidentiality of Alcohol and Drug Abuse Patient Records regulations: The Federal rules restrict any use of the information to criminally investigate or prosecute any alcohol or drug abuse patient.[facility] CenterIn the event this information is protected by the Federal Confidentiality of Alcohol and Drug Abuse Patient Records regulations: The Federal rules restrict any use of the information to criminally investigate or prosecute any alcohol or drug abuse patient.[facility] CenterIn the event this information is protected by the Federal Confidentiality of Alcohol and Drug Abuse Patient Records regulations: The Federal rules restrict any use of the information to criminally investigate or prosecute any alcohol or drug abuse patient.[facility] CenterIn the event this information is protected by the Federal Confidentiality of Alcohol and Drug Abuse Patient Records regulations: The Federal rules restrict any use of the information to criminally investigate or prosecute any alcohol or drug abuse patient.[facility] CenterIn the event this information is protected by the Federal Confidentiality of Alcohol and Drug Abuse Patient Records regulations: The Federal rules restrict any use of the information to criminally investigate or prosecute any alcohol or drug abuse patient.[facility] CenterIn the event this information is protected by the Federal Confidentiality of Alcohol and Drug Abuse Patient Records regulations: The Federal rules restrict any use of the information to criminally investigate or prosecute any alcohol or drug abuse patient.[facility] CenterIn the event this information is protected by the Federal Confidentiality of Alcohol and Drug Abuse Patient Records regulations: The Federal rules restrict any use of the information to criminally investigate or prosecute any alcohol or drug abuse patient.[facility] CenterIn the event this information is protected by the Federal Confidentiality of Alcohol and Drug Abuse Patient Records regulations: The Federal rules restrict any use of the information to criminally investigate or prosecute any alcohol or drug abuse patient.[facility] CenterIn the event this information is protected by the Federal Confidentiality of Alcohol and Drug Abuse Patient Records regulations: The Federal rules restrict any use of the information to criminally investigate or prosecute any alcohol or drug abuse patient.[facility] CenterIn the event this information is protected by the Federal Confidentiality of Alcohol and Drug Abuse Patient Records regulations: The Federal rules restrict any use of the information to criminally investigate or prosecute any alcohol or drug abuse patient.[facility] CenterIn the event this information is protected by the Federal Confidentiality of Alcohol and Drug Abuse Patient Records regulations: The Federal rules restrict any use of the information to criminally investigate or prosecute any alcohol or drug abuse patient.[facility] CenterIn the event this information is protected by the Federal Confidentiality of Alcohol and Drug Abuse Patient Records regulations: The Federal rules restrict any use of the information to criminally investigate or prosecute any alcohol or drug abuse patient.[facility] CenterIn the event this information is protected by the Federal Confidentiality of Alcohol and Drug Abuse Patient Records regulations: The Federal rules restrict any use of the information to criminally investigate or prosecute any alcohol or drug abuse patient.[facility] CenterIn the event this information is protected by the Federal Confidentiality of Alcohol and Drug Abuse Patient Records regulations: The Federal rules restrict any use of the information to criminally investigate or prosecute any alcohol or drug abuse patient.[facility] CenterIn the event this information is protected by the Federal Confidentiality of Alcohol and Drug Abuse Patient Records regulations: The Federal rules restrict any use of the information to criminally investigate or prosecute any alcohol or drug abuse patient.[facility] CenterIn the event this information is protected by the Federal Confidentiality of Alcohol and Drug Abuse Patient Records regulations: The Federal rules restrict any use of the information to criminally investigate or prosecute any alcohol or drug abuse patient.[facility] CenterIn the event this information is protected by the Federal Confidentiality of Alcohol and Drug Abuse Patient Records regulations: The Federal rules restrict any use of the information to criminally investigate or prosecute any alcohol or drug abuse patient.[facility] CenterIn the event this information is protected by the Federal Confidentiality of Alcohol and Drug Abuse Patient Records regulations: The Federal rules restrict any use of the information to criminally investigate or prosecute any alcohol or drug abuse patient.[facility] CenterIn the event this information is protected by the Federal Confidentiality of Alcohol and Drug Abuse Patient Records regulations: The Federal rules restrict any use of the information to criminally investigate or prosecute any alcohol or drug abuse patient.[facility] CenterIn the event this information is protected by the Federal Confidentiality of Alcohol and Drug Abuse Patient Records regulations: The Federal rules restrict any use of the information to criminally investigate or prosecute any alcohol or drug abuse patient.[facility] CenterIn the event this information is protected by the Federal Confidentiality of Alcohol and Drug Abuse Patient Records regulations: The Federal rules restrict any use of the information to criminally investigate or prosecute any alcohol or drug abuse patient.[facility] CenterIn the event this information is protected by the Federal Confidentiality of Alcohol and Drug Abuse Patient Records regulations: The Federal rules restrict any use of the information to criminally investigate or prosecute any alcohol or drug abuse patient.[facility] CenterIn the event this information is protected by the Federal Confidentiality of Alcohol and Drug Abuse Patient Records regulations: The Federal rules restrict any use of the information to criminally investigate or prosecute any alcohol or drug abuse patient.[facility] CenterIn the event this information is protected by the Federal Confidentiality of Alcohol and Drug Abuse Patient Records regulations: The Federal rules restrict any use of the information to criminally investigate or prosecute any alcohol or drug abuse patient.[facility] CenterIn the event this information is protected by the Federal Confidentiality of Alcohol and Drug Abuse Patient Records regulations: The Federal rules restrict any use of the information to criminally investigate or prosecute any alcohol or drug abuse patient.[facility] CenterIn the event this information is protected by the Federal Confidentiality of Alcohol and Drug Abuse Patient Records regulations: The Federal rules restrict any use of the information to criminally investigate or prosecute any alcohol or drug abuse patient.[facility] CenterIn the event this information is protected by the Federal Confidentiality of Alcohol and Drug Abuse Patient Records regulations: The Federal rules restrict any use of the information to criminally investigate or prosecute any alcohol or drug abuse patient.[facility] CenterIn the event this information is protected by the Federal Confidentiality of Alcohol and Drug Abuse Patient Records regulations: The Federal rules restrict any use of the information to criminally investigate or prosecute any alcohol or drug abuse patient.[facility] CenterIn the event this information is protected by the Federal Confidentiality of Alcohol and Drug Abuse Patient Records regulations: The Federal rules restrict any use of the information to criminally investigate or prosecute any alcohol or drug abuse patient.[facility] CenterIn the event this information is protected by the Federal Confidentiality of Alcohol and Drug Abuse Patient Records regulations: The Federal rules restrict any use of the information to criminally investigate or prosecute any alcohol or drug abuse patient.[facility] CenterIn the event this information is protected by the Federal Confidentiality of Alcohol and Drug Abuse Patient Records regulations: The Federal rules restrict any use of the information to criminally investigate or prosecute any alcohol or drug abuse patient.[facility] Center[facility] the event this information is protected by the Federal Confidentiality of Alcohol and Drug Abuse Patient Records regulations: The Federal rules restrict any use of the information to criminally investigate or prosecute any alcohol or drug abuse patient.[facility] Center[facility] the event this information is protected by the Federal Confidentiality of Alcohol and Drug Abuse Patient Records regulations: The Federal rules restrict any use of the information to criminally investigate or prosecute any alcohol or drug abuse patient.[facility] Center[facility] the event this information is protected by the Federal Confidentiality of Alcohol and Drug Abuse Patient Records regulations: The Federal rules restrict any use of the information to criminally investigate or prosecute any alcohol or drug abuse patient.[facility] Center[facility] the event this information is protected by the Federal Confidentiality of Alcohol and Drug Abuse Patient Records regulations: The Federal rules restrict any use of the information to criminally investigate or prosecute any alcohol or drug abuse patient.[facility] Center[facility] the event this information is protected by the Federal Confidentiality of Alcohol and Drug Abuse Patient Records regulations: The Federal rules restrict any use of the information to criminally investigate or prosecute any alcohol or drug abuse patient.[facility] CenterIn the event this information is protected by the Federal Confidentiality of Alcohol and Drug Abuse Patient Records regulations: The Federal rules restrict any use of the information to criminally investigate or prosecute any alcohol or drug abuse patient.[facility] CenterIn the event this information is protected by the Federal Confidentiality of Alcohol and Drug Abuse Patient Records regulations: The Federal rules restrict any use of the information to criminally investigate or prosecute any alcohol or drug abuse patient.[facility] Care Teams (unrecognized sec tion and content) Adult Day Care Worker Relationship Specialty Start Date End Date Ren Carlson MD [address] [place], [place] [id number] PCP - General 04 Adult Day Care Worker Relationship Specialty Start Date End Date Ren Carlson MD [address] [place] [address] PCP - General 04 Adult Day Care Worker Relationship Specialty Start Date End Date Ren Carlson MD [address] [place] [address] PCP - General 04 Adult Day Care Worker Relationship Specialty [place] [address] [place] [address], [place] [address] PCP - General 04 Adult Day Care Worker Relationship Specialty [place] [address] [place] [address], [place] [address] PCP - General 04 Adult Day Care Worker Relationship Specialty [place] [address] [place] [address], [place] [address] PCP - General 04 Adult Day Care Worker Relationship Specialty [place] [address] [place] [address], [place] [address] PCP - General 04 Adult Day Care Worker Relationship Specialty Start Date End Date Ren Carlson MD [address] [place] [address] PCP - General 04 Adult Day Care Worker Relationship Specialty Start Date End Date Ren Carlson MD [address] [place] [address] PCP - General 04 Adult Day Care Worker Relationship Specialty [place] [address] [place] [address], [place] [address] PCP - General 04 Adult Day Care Worker Relationship Specialty Start Date End Date Ren Carlson MD [address] [place], [place] [id number] PCP - General 04 Team Status: Active Member Role Status Dates Dr. Ren Carlson MD Family Provider Active No Primary Care Physician Primary Care Provider Active Team Status: Inactive Member Role Status Dates No Primary Care Physician Primary Care Provider Active Dr. Vlad Jay DO Emergency Provider Active Team Status: Active Member Role Status Dates No Primary Care Physician Primary Care Provider Active Team Status: Inactive Member Role Status Dates No Primary Care Physician Primary Care Provider Active Start: May 25, 2024 End: May 27, 2024 Dr. Laxmi Simons MD Admit Provider Active Start: May 25, 2024 End: May 27, 2024 Dr. Laxmi Simons MD Attending Provider Active Start: May 25, 2024 End: May 27, 2024 Dr. Laxmi Simons MD Referring Provider Active Start: May 25, 2024 End: May 27, 2024 Team Status: Inactive Member Role Status Dates No Primary Care Physician Primary Care Provider Active Start: August 16, 2024 End: August 17, 2024 Dr. Blane Alfred MD Emergency Provider Active S tart: August 16, 2024 End: August 17, 2024 Reason for Visit (unrecogniz ed section and content) Reason Comments Physical Therapy Specialty Diagnoses / Procedures Referred By Contac t Referred To Contact [facility] Diagnoses S/P knee surgery Procedures CONSULT TO PHYSICAL THERAPY PHYSICAL THERAPY EVALUATION HIGH COMPLEX 45 MINS Mayda Solares DO [address] [facility] [address] [place] [address] [facility] [place] [address] [place] [address] Referral ID Status Reason Start Date Expiration Date Visits Requested Visits Authorized [id number] Authorized Auto-Generat ed Referral 05/19/2023 05/18/2024 30 30 Reason Comments PT Progress Note Specialty Diagnoses / Procedures Referred By Contact Referred To Contact [facility] Diagnoses Patellar dislocation, left, subsequent encounter S/P orthopedic surgery, follow-up exam Procedures CONSULT TO PHYSICAL THERAPY PHYSICAL THERAPY EVALUATION HIGH COMPLEX 45 MINS THERAPEUTIC EXERCISES RE, EA 15 MIN. Otoniel Gates PA-C [address] [place] [address] [facility] [address] [address] Referral ID Status Reason Start Date Expiration Date Visits Requested Visits Authorized [id number] Authorized Auto-Generat ed Referral 12/26/2021 05/18/2022 99 99 Reason Comments New Knee Pain Swelling Reason Comments [facility] Scheduling Specialty Diagnoses / Procedures Referred By Contac t Referred To Contact MR IMAGING Diagnoses Chronic pain of left knee Knee OCD Procedures MRI KNEE WO IVCON LT MRI ANY JT LOWER EXTREM W/O CONTRAST Mayda Lemons, [facility] [place] [address] Mr Imaging Referral ID Status Reason Start Date Expiration Date V isits Requested Visits Authorized [id number] Closed Auto-Generate d Referral 09/28/2021 10/27/2021 1 [...] RE, EA 15 MIN. Otoniel Gates PA-C [address] [place] [id number] [facility] [address] [address] Reason Comments Post Op 7 weeks 6 [...] day Specialty Diagnoses / Procedures Referred By Natasha t Referred To Contact [facility] Diagnoses S/P knee surgery Loose body in knee, left knee Procedures MRI KNEE WO IVCON LEFT MRI ANY JT LOWER EXTREM W/O CONTRAST Mayda Lemons, [address] [place] [address] [address] Referral ID Status Reason Start Date Expiration Date V isits Requested Visits Authorized [id number] Closed Auto-Generate d Referral 07/31/2023 11/20/2023 1 1 Reason Comments Nausea x 3 days, 7 weeks pr egnant Reason Comments Yearly Exam Contact lens evaluation Reason Comments Initial OB Visit Reason Comments PRAF Initial PRAF Reason Comments US Specialty Diagnoses / Procedures Referred By Natasha t Referred To Contact [facility] Diagnoses 12 weeks gestation of Procedures NUCHAL TRANSLUCENCY WHI US NUCHAL TRANSLUCENCY 1ST GESTATION Anitra Caldwell APRN.CNM [address] [place] [address] [facility] [address] [place] [address] Referral ID Status Reason Start Date Expiration Date Visits Requested Visits Authorized [id number] New Request Auto-Generat ed Referral 11/28/2023 11/27/2024 1 1 Reason Onset Date Comments Care 11/28/2023 Reason Comments Nausea & Vomiting Reason Comments Nausea & Vomiting With 14 weeks pregna ncy Reason Onset Date Comments Care 12/23/2023 Reason Onset Date Comments Care 01/23/2024 Specialty Diagnoses / Procedures Referred By Natasha t Referred To Contact [facility] Diagnoses Supervision of normal first teen in second trimester Procedures OBSTETRIC ULTRASOUND WHI US PREG UTERUS AFTER 1ST TRIMEST GESTATION Anitra Caldwell APRN.CNM [address] [place] [address] [facility] [address] [place] [address] Referral ID Status Reason Start Date Expiration Date V isits Requested Visits Authorized [id number] Closed Auto-Generate d Referral 11/28/2023 11/27/2024 1 1 Reason Comments Hunter Guide - Other PRAF Reason Comments ULTRASOUND Reason Onset Date Comments Refill Request 02/12/2024 Reason Onset Date Comments Care 02/25/2024 Reason Comments Centering Reason Comments Sore Throat Runny nose x 2 days Reason Comments Results Reason Onset Date Comments Care 03/16/2024 Reason Onset Date Comments Care 03/29/2024 Reason Onset Date Comments Care 04/21/2024 Specialty Diagnoses / Procedures Referred By Natasha burch Referred To Contact [facility] Diagnoses Low-lying placenta Supervision of normal first teen in second trimester Procedures OBSTETRIC ULTRASOUND WHI US PREG UTERUS AFTER 1ST TRIMEST GESTATION Anitra Caldwell APRN.CNM [address] [place] [address] [facility] [address] [place] [address] Referral ID Status Reason Start Date Expiration Date V isits Requested Visits Authorized [id number] Closed Auto-Generate d Referral 01/26/2024 01/25/2025 1 1 Reason Onset Date Comments Care 05/05/2024 Reason Onset Date Comments Care 05/11/2024 Reason Onset Date Comments Care 05/18/2024 Reason Comments Care Reason Comments Ob Delivery Note Reason Comments Routine Reason Onset Date Comments Refill Request 08/02/2024 Reason Comments Cough Chest congestion, na tasneem congestion, SOB, increased mucous, runny nose, heaviness in chest x 1 week Reason Comments Refill Request Reason Onset Date Comments Insertion Of IUD 11/15/2024 Specialty Diagnoses / Procedures Referred By Natasha burch Referred To Contact [facility] Diagnoses Encounter for IUD insertion Procedures INSERT INTRAUTERINE DEVICE INSERT INTRAUTERINE DEVICE Leena Gaytan APRN.CNM [address] [place] [address] Phone: tel: fax: [place] [id number] [place] [address] Referral ID Status Reason Start Date Expiration Date V isits Requested Visits Authorized [id number] Closed Auto-Generate d Referral 07/28/2024 07/28/2025 1 1 Goals (unrecognized section and content) Goals may be documented in a n alternate section FOR RECORDS PERTAINING TO PATIENTS WHO ARE [...] BE BASED ON THE PRIMARY CLINICAL RECORDS. [facility] provides no warranty or guarantee of the accuracy or completeness of information in this document.
[2024-12-05 12:53] VITALS: BP 109/68; PULSE 64; RESP 16; TEMP 36.4; O2SAT 100
== END 2024-12-05 12:53 | disposition home or self-care (01) ==
PROVIDERS: Emergency Provider Emergency Medicine; Visit Provider Emergency Medicine
DX: N93.9 Abnormal uterine and vaginal bleeding, unspecified (principal); Z97.5 Presence of (intrauterine) contraceptive device
CPT/HCPCS: 84703; 85027; 99283

== ENCOUNTER 2024-12-07 21:08 | Emergency (ER) | payer OTHER, SELFPAY ==
[2024-12-07 21:09] VITALS: BP 130/96; PULSE 96; RESP 15; TEMP 36.6; O2SAT 97; BMI 22.6
--- NOTE | 2024-12-07 23:03 | EX.ED.DYSGE1 ---
HPI History of Present Illness Chief Complaint: Bite Informant: patient Narrative Narrative: Patient is a 19-year-old female with past medical history of anxiety. She states that she was petting/working with a feral cat at the [employer] today. She states that it bit her in the right hand/finger as well as in the left hand. She states that this happened roughly 10 to 12 hours ago. She reports that she was able to rinse the area out and wash the hands. This time past however she noticed increased swelling and pain in the right fourth digit that was bitten and she has concern for developing infection and secondary to this comes in for evaluation [facility] Medical History Anxiety Encounter for screening for COVID-19 Home Medications ?Medication ?Instructions ?Recorded ?Last Taken ?Type vit no.95-ferrous 1 tab PO DAILY 03/21/24 05/24/24 21:00 History fumarate 28 mg-folic acid 800 mcg 1 TAB tablet () pantoprazole 40 mg granules 40 mg PO DAILY 05/25/24 05/24/24 09:00 History delayed-release for susp in packet 40 mg (Protonix) sennosides 8.6 mg-docusate sodium 1 - 2 tab PO DAILY PRN PRN 05/27/24 Unknown Rx 50 mg tablet (Stimulant Laxative Constipation #30 tabs Plus) hydrocodone-acetaminophen 5-325mg 1 tab PO Q4H PRN pain 2 days #8 08/17/24 Unknown Rx 5mg-325mg tabs amoxicillin 875 mg-potassium 1 tab PO BID 10 days #20 tabs 12/07/24 Unknown Rx clavulanate 125 mg tablet oxycodone-acetaminophen 5 mg-325 1 tab PO Q6H PRN pain 3 days #12 12/07/24 Unknown Rx mg tablet (Percocet) tabs Allergy/AdvReac Type Severity Reaction Status Date / Time lactase (From Dairy [employer]) Allergy Mild Abdominal Verified 12/05/24 10:40 cramping Family History Grandfather Leukemia DVT (deep venous thrombosis) Grandmother Breast cancer Grandmother Diabetes Heart disease Lung cancer Surgical History History of surgery History of removal of cyst H/O tooth extraction Social History Smoking Status: Never smoker alcohol intake: never what type of physical activity do you participate in: additional details: gym, sports seatbelt use: always ROS ROS ED Constitutional Constitutional ED: Denies chills or fever(s) ENT ENT ED: Denies sore throat Cardiovascular Cardiovascular: Denies chest pain Respiratory/Chest Respiratory/Chest: Denies cough or dyspnea Gastrointestinal Gastrointestinal: Denies abdominal pain, diarrhea, nausea or vomiting Musculoskeletal Musculoskeletal: Reports other Details: Positive right hand/finger pain Integumentary Reports other Details: Positive redness and swelling right hand/finger Neurologic Neurologic: Denies headache(s) Hematologic/Lymphatic Hematologic/Lymphatic: Denies easy bleeding or easy bruising EXAM Physical Exam Const Vital Signs: 12/07/24 21:09 12/07/24 23:15 Temperature 97.8 F 97.8 F Temperature Source Temporal Pulse Rate 96 96 Respiratory Rate 15 15 Blood Pressure 130/96 H 130/96 H Blood Pressure Mean 107 107 Pulse Ox 97 97 Oxygen Delivery Method Room Air Positive well nourished and well developed General Appearance ED: well developed HEENT HEENT Narrative: Normocephalic atraumatic Eyes PERRL and EOMs intact bilaterally Neck supple Resp normal respiratory effort and clear to auscultation bilaterally Cardio regular rate and regular rhythm Extremity Extremity Narrative: Bilateral upper extremities are neurovascularly intact There is a superficial scratch/bite along the palmar aspect of the left hand without surrounding redness swelling discharge or streaking There are 2 puncture wounds to the volar aspect of the right hand at the finger pad of the right fourth digit. There is surrounding redness and swelling at the site. There is no purulent discharge or lymphangitic streaking. The finger pad is still soft and compressible going against a felon. No nailbed involvement Remainder of the exam is normal Neuro oriented x3, CN's II-XII intact bilaterally and no sensory deficits noted Sensorium / Orientation: alert Motor Exam: strength 5/5 throughout Psych mental status grossly normal Skin Skin Narrative: Soft tissue changes to both the right and left hand consistent with cat bite/scratch as documented above MDM MDM MDM Narrative Medical decision making narrative: Patient arrived to the ER with stable vitals. She was bitten within the last 12 hours. She does not have history of immunosuppression. There is no fever or lymphangitic streaking or felon. Patient also does not have nailbed involvement such as paronychia or subungual hematoma. Without signs of systemic infection such as fever or lymphangitic streaking and the fact the patient has not been on any type of antibiotic and the injury/bite only occurred within the last 12 hours I do not feel the need for imaging or laboratory studies. The patient was placed on Augmentin secondary to the concern for developing soft tissue infection as well as having her tetanus status updated. The cat is feral but it is at the [employer] and can be watched and therefore we decided there is no need to provide rabies vaccination or immunoglobulin. This plan of care was discussed with the patient who is agreeable to it. Therefore at this time as there is no signs of systemic infection or felon or necrosis/necrotizing fasciitis there is no need for further intervention and she is otherwise safe for discharge History & Record Review Discussion w/independent historian: Patient Discharge Plan Triage Chief Complaint: Bite ED Provider: Vlad Jay Dx/Rx/DC Orders Clinical Impression: Cat bite, Anxiety Instructions: ED Cat Bite Prescriptions: New amoxicillin-pot clavulanate 875-125 mg tablet 1 tab PO BID 10 Days Qty: 20 0RF oxycodone-acetaminophen [Percocet] 5-325 mg tablet 1 tab PO Q6H PRN (Reason: pain) 3 Days Qty: 12 0RF No Action PNV cmb#95-ferrous fumarate-FA [] 28 mg iron- 800 mcg tablet 1 tab PO DAILY pantoprazole [Protonix] [address] for susp in packet 40 mg PO DAILY sennosides-docusate sodium [Stimulant Laxative Plus] 8.6-50 mg Tablet 1 - 2 tab PO DAILY PRN PRN (Reason: Constipation) Qty: 30 0RF hydrocodone-acetaminophen 5-325 mg tablet 1 tab PO Q4H PRN (Reason: pain) 2 Days Qty: 8 0RF Primary Care Provider: Care Physician,No Primary Referrals: Manny Goel MD [Med Staff - Active Staff] - Care Physician,No Primary [Primary Care Provider] - Activity Restrictions/Additional Instructions: The antibiotic should begin resolving your infection in 48 to 72 hours. If you notice a fever of 100.4 or higher or streaking up your arm or have any further concerns please return to the ER for repeat evaluation. Otherwise please continue to wash your hands with soap and water to help prevent infection and take the antibiotic as directed Print Language: Bahraini Disposition Disposition: Home, Self Care Discharge Date/Time: 12/07/24 23:15
--- OUTSIDE RECORDS SUMMARY | 2024-12-07 23:14 | XMS RPT_ITS | CCD ---
Author Organization [facility] Care Team Providers Care Gas Leak Inspector Helper Name Role Phone Javi Thapa Unavailable [phone] Ren Carlson MD Primary Care Provider Ren Carlson MD Primary Care Provider Unavailable Primary Care Provider Unavailabl e Unavailable Primary Care Provider Unavailabl e Care Physician, No Primary Primary Care Provider Unavailable Ronak WILKINSON, Dr. Hair Admit Provider Dr. Laxmi Simons MD Attending Provid er Dr. Laxmi Simons MD Referring Provid er Dr. Blane Alfred MD Emergency Provider THEODORE CALDWELLICA Attending Unavailable CALDWELL, ANITRA Referring Unavailable CALDWELL, ANITRA Attending Unavailable JAQUELIN ANITRA Attending Unavailable LAXMI COLEMAN Attending Unavail able JAQUELIN ANITRA Referring Unavailable PLOTTS, LEENA Attending Unavailable PLOTTS, LEENA Attending Unavailable PLOTTS, LEENA Attending Unavailable HAURY, ROBSON Referring Unavailable HAURY, ROBSON Referring Unavailable PLOTTS, LEENA Attending Unavailable NATALIIA VAIL Attending Unavailable PLOTTS, LEENA Referring Unavailable PLOTTS, LEENA Referring Unavailable ILIR, ZHANNA Attending Unavailable ILIR, ZHANNA Referring Unavailable PLOTTS, LEENA Attending Unavailable PLOTTS, LEENA Referring Unavailable CALDWELL, ANITRA Referring Unavailable PLOTTS, LEENA Attending Unavailable YARED, NATALIIA Attending Unavailable YARED, NATALIIA Referring Unavailable CALDWELL, ANITRA Attending Unavailable PLOTTS, LEENA Attending Unavailable PLOTTS, LEENA Attending Unavailable Care Physician, No Primary Primary Care Provider Unavailable Tima WILKINSONDr. Arguelles Attending Provider Care Physician, No Primary Primary Care Unava ilable Vlad Jay Attending Unavailable Blane Alfred Attending Unavailable Care Physician, No Primary Primary Care Unava ilable Blane Alfred Attending Unavailable Care Physician, No Primary Primary Care Unava ilable Neyoraciot-Schuler, Laxmi Admitting Unavail able NeTao Laxmi Attending Unavail able Ronak Laxmi Referring Unavail able Care Physician, No Primary Primary Care Unava ilable Leena Gaytan Referring Unavailable Ren Carlson Primary Care Unavailable Leena Gaytan Attending Unavailable Allergies Allergy Classification Reported Allergen(s) Allergy Type Date of Onset Reaction(s) Facility Lactase (3 sources) Lactase Drug Allergy 1 Other: See Comments [facility] (20 sources) Lactase; Translations: [LACTASE] Drug Allergy 1 Other: See Comments [facility] (19 sources) Eucalyptus extract; Translations: [EUCALYPTUS] Drug Allergy 4 Rash [facility] (1 source) Lactase Drug Allergy 5 [facility] Repository Medications Current Medications Medication Drug Class(es) Dates Sig (Normalized) Sig (Original) acetaminophen 325 mg / HYDROcodone bitartrate 5 mg oral tablet (5 sources) Opioid Agonist Start: 08-17-2024 take 1 tablet by mouth every four hours as needed for pain Hydrocodone-Aceta minophen 5-325 mg tablet Active 1 {tbl} PO Q4H as needed for pain 8 2 0 August 17, 2024 Calculus of left kidney Calculus of kidney Start: 08-22-2015 End: 05-08-2017 take 1 mL [...] causes drowsiness copper 313 mg drug implant (3 sources) Copper-containing Intrauterine Device Start: 11-15-2024 End: 11-13-2034 copper (PARAGARD) 380 square mm intrauterine device Indications: Encounter for IUD insertion 1 Intra Uterine Device by INTRAUTERINE route as directed. 1 each 11/15/2024 11/13/2034 Active docusate sodium 50 mg / sennosides, senior care 8.6 mg oral tablet (2 sources) Start: 05-27-2024 Sennosides-Docusate Sodium (Stimulant Laxative Plus) 8.6-50 mg Tablet Active 1 - 2 {tbl} PO DAILY NEEDED as needed for Constipation 30 0 May 27, 2024 1:00am doxycycline hyclate 100 mg oral tablet (1 source) Tetracycline-class Drug Start: 10-21-2024 End: 10-28-2024 take 1 tablet by mouth twice Gretchen Brower OD November 11, 2023 10:56 AM documented in this encounterK[facility]06-19-[facility] History of Present illness Narrative* Willard Hsu APRN.CNP - 11/05/2023 12:13 PM EDT Patient triaged at [facility]. Here today with continued vomiting, seen in [facility] care last week/remedies attempted, now having dizziness. Is 9 weeks . I will refer to ER. In no apparent distress at time of triage. documented in this encounterKettering [facility]06-08-2024 Instructions* Patient Instructions* Floyd Louise APRN.CNP - 10/25/2023 12:51 PM EDT Nausea and vomiting Doxylamine (Unisom Sleeptab) Vitamin B6 25mg three times per day in combination with doxylamine 12.5mg at bedtime to prevent nausea. Kathi extract 125-250mg every six hours. documented in this encounterKettering [facility]06-08-2024 History of Present illness Narrative* Aspen Floyd, ESAU.MOSAIC TILER - 10/25/2023 12:46 PM EDT Subjective HPI Nontoxic-appearing 7-week female presents urgent care chief complaint nausea. Duration of symptoms last 2 to 3 days. Associated symptoms nausea. States nausea is worse in the morning. Has not been seen by [employer] at this point. Has tried some OTC [...] No evidence of dehydration. Will beestablished with [employer] [facility] at the end of today's visit. Recommended [...] of care. This note was generated using Mobile Automation software. It may contain errors in wording, punctuation, or spelling. Floyd Louise APRN.CLAUDIA documented in this encounterKettering Health [facility]04-16-2024 History of Present illness Narrative* Raysa Bennett PTA - 09/02/2023 2:14 PM EDT Program_ID:[id number] Access Code: [email or web address] URL: [email or web address] Date: 09-02-2023 Prepared By: Zain Schaeffer Program Notes Exercises - Single Leg Bridge [...] 2 sets - 10 reps * Zain Schaeffer, PT - 09/02/2023 2:00 PM EDT Episode Visit Count: 3 Therapist That Will Accept/Oversee The Plan Of Care: Zain Schaeffer PT Start of Care Date: 08/19/23 Onset [...] 1441 DUARTE Ventura PT documented in this encounterKettering Health [facility]04-12-2024 History of Present illness Narrative* Jennifer Earl [...] PATIENT PRESENTS WITH AN IMPLANTABLE OR ATTACHED CHAIN SPLITTER: No RADIOLOGY DEPARTMENT: MR; Exam(s) Completed: Lower MSK: Knee, left PERIPHERAL IV DATA: Not applicable SIGNED BY: RT Dorys(Arthur) August 29, 2023 10:00 AM documented in this encounterKettering Health [facility]04-10-2024 History of Present illness Narrative* Zhanna Osborne APRN.CLAUDIA - 08/27/2023 4:47 PM EDT Subjective Patient [...] is provided by the patient. No language path was used. Review of Systems Constitutional: Negative. [...] was okay with this care plan. Zhanna Osborne APRN.CLAUDIA documented in this encounterKettering Health [facility]04-09-2024 History of Present illness Narrative* Zain Schaeffer, PT - 08/26/2023 2:51 PM EDT Program_ID:[id number] Access Code: [email or web address] URL: [email or web address] Date: 08-26-2023 Prepared By: Zain Schaeffer Program Notes Exercises - Single Leg Bridge [...] 4 sets - 10 reps * Zain Schaeffer, PT - 08/26/2023 2:16 PM EDT Episode Visit Count: 2 Therapist That Will Accept/Oversee The Plan Of Care: Zain Schaeffer PT Start of Care Date: 08/19/23 Onset [...] 1416 Session Stop Time : 1455 Zain Schaeffer PT documented in this encounterKettering Health [facility]04-02-2024 History of Present illness Narrative* Zain Schaeffer PT - 08/19/2023 10:52 AM EDT Program_ID:[id number] Access Code: [email or web address] URL: [email or web address] Date: 08-19-2023 Prepared By: Zain Schaeffer Program Notes Exercises - Single Leg Bridge - 1 x daily - 7 x weekly - 4 sets - 10 reps - Supine Isometric Hamstring Set - 1 x daily - 7 x weekly - 4 sets - 10 reps * Zain Schaeffer PT - 08/19/2023 10:15 AM EDT Images from the original note were not included. Episode Visit Count: 1 Therapist That Will Accept/Oversee The Plan Of Care: Zain Schaeffer PT Start of Care Date: 08/19/23 Onset [...] of Care: created on 08/19/23 through 11/11/23 [place] in home exercise program. Perform stairs without [...] Planned: 4 Planned Treatment Interventions: Therapeutic exercise (18556), Neuromuscular re- education (38880), Manual therapy (34126), Gait Training (91098), Patient/Family/Caregiver Education PLAN FOR NEXT VISIT: Assess [...] 1015 Session Stop Time : 1102 Zain Schaeffer PT documented in this encounterKettering [facility]03-14-2024 History of Present illness Narrative* Mayda Solares [...] medications for this visit. Physical Exam Vitals: [facility] 04/02/2023 Psych: Pleasant, good affect and mood [...] space, with a small knee joint effusion. Business Development Analyst: CHAPARRITA Transcribe Date/Time: Jul 31 2023 2:39P [...] Mayda Solares D.O. M.P.H. documented in this encounterKettering Health [facility]03-14-2024 History of Present illness Narrative* Tierra Sales, RT(R) - 07/31/2023 2:30 PM EDT Radiology [...] PATIENT PRESENTS WITH AN IMPLANTABLE OR ATTACHED CHAIN SPLITTER: No RADIOLOGY DEPARTMENT: General X-ray: Exam(s) Completed: Lower Extremity X- Ray(s): Knee, AP / Lat / Tunne / Merchant Left and Wt. Bearing PERIPHERAL IV DATA: Not applicable SIGNED BY: RT Lei(R) July 31, 2023 2:21 PM documented in this encounterKettering [facility]11-15-2023 History of Present illness Narrative* John Crowe [...] severe. John Crowe MD documented in this encounterKettering Health [facility]10-03-2023 History of Present illness Narrative* Tierra Sales RT(R) - 02/18/2023 12:20 PM EDT Radiology Service Progress Note PATIENT NAME: Beatrsi Fletcher DATE OF SERVICE: February 18, 2023 [...] IV DATA: Not applicable SIGNED BY: RT Lei(Arthur) February 18, 2023 12:13 PM documented in this encounterKettering Health [facility]10-03-2023 History of Present illness Narrative* Tierra Sales RT(Arthur) - 02/18/2023 12:00 PM EDT Radiology Service [...] 18, 2023 11:57 AM documented in this encounterKettering Health [facility]09-06-2023 History of Present illness Narrative* Flody Louise APRN.MOSAIC TILER - 01/22/2023 6:17 PM EDT Images from [...] of care. This note was generated using Mobile Automation software. It may contain errors in wording, punctuation, or spelling. Floyd Louise APRN.CLAUDIA documented in this encounterKettering Health [facility]07-06-2023 Instructions* Patient Instructions* Floyd Louise APRN.CNP - [...] or mouth and then touchesanother person directly (amis-wv-yyoq contact) or indirectly (fjll-rr-wybmka, such as doorknob, telephone, toys). It is [...] every four months on our web site ([email or web address]). Information below was obtained from Up to date Last literature review version 19.2: September 2010 This topic last updated: January 03, 2010 documented in this encounterKettering Health [facility]07-06-2023 History of Present illness Narrative* Floyd Louise APRN.CLAUDIA - 11/21/2022 1:32 PM EDT Subjective HPI Nontoxic-appearing female presents to urgent care with chief complaint of upper respiratory tract like infection. Duration of symptoms 2 days. Associated symptoms sore throat, nasal congestion, nasaldischarge and nonproductive cough. Patient denies the use of any ijdm-hzm-rndieci medications or home remedies for symptom management. [...] of care. This note was generated using Mobile Automation software. It may contain errors in wording, punctuation, or spelling. Floyd Louise APRN.CLAUDIA documented in this encounterKettering [facility]03-17-2023 History of Present illness Narrative* Gretchen Brower, [...] 02, 2022 11:04 AM documented in this encounterKettering Health [facility]11-21-2022 History of Present illness Narrative* Zhanna Osborne APRN.CLAUDIA - 04/08/2022 5:30 PM EST Patient came in with complaints of cat bite on left ring finger. Patient says she is bit yesterday.Patient says is extremely swollen and painful and numb. Upon examining the finger patient does havesignificant swelling and erythema. Patient has yellow-green liquid seeping out around the nail. Patient works at the [employer] should not 100% sure the cat had any of its shots. At this time patient is being sent to the ER due to loss of feeling in the finger swelling and erythema. Patient wasokay with this care plan. documented in this encounterKettering [facility]10-27-2022 History of Present illness Narrative* Mayda Solares, [...] Denies any pain today. documented in this encounterKettering Health [facility]burg10-19-2022 History of Present illness Narrative* June Staton, [...] 02/04/22 through 04/06/22 Goals updated on 03/06/2022. [place] in home exercise program. (Met) Patient will [...] Patient to be seen for Therapeutic exercise (44946);Neuromuscular re-education (04018);Manual therapy (87602);Gait Training (48583);Patient/Family/Caregiver Education PLAN FOR NEXT VISIT: May add [...] 45 June Staton PT documented in this encounterKettering [facility]10-12-2022 History of Present illness Narrative* June Staton [...] Total Treatment Time Minutes (timed/untimed): 47 June Lemon, PT documented in this encounterKettering Health [facility]10-10-2022 History of Present illness Narrative* June Staton [...] Treatment Time Minutes (timed/untimed): 45 Raysa Bennett, RESEARCH WORKER KITCHEN June Staton PT documented in this encounterKettering Health [facility]10-07-2022 History of Present illness Narrative* June Staton, PT - 02/22/2022 9:48 AM EDT Episode [...] 45 June Staton PT documented in this encounterKettering Health [facility]09-19-2022 History of Present illness Narrative* June Staton [...] of Care: created on 02/04/22 through 04/06/22 [place] in home exercise program. Patient will decrease [...] Planned: 16 Planned Treatment Interventions: Therapeutic exercise (14983);Neuromuscular re- education (93419);Manual therapy (39240);Gait Training (25644);Patient/Family/Caregiver Education;E-Stim Attended/TENS (09422) PLAN FOR NEXT VISIT: Review HEP. Progress [...] 60% weight on L LE. Works at [employer] so lots of walking, att[employer] and walks a lot at school. Patient Goals: To get back to doing all my activities at work. Functional Limitations: walking in the community;physical activities;recreational activities;sleeping Prior Level of Function: Independent with restrictions Independent with the following restrictions: Knee pain and limitations prior to surgery. 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 All questions answered. documented in this encounterKettering Health [facility]09-08-2022 Miscellaneous Notes* Telephone Encounter - Lashay Grace [...] Dyan Toscano * Telephone Encounter - Delmi WOODY - 01/23/2022 4:57 PM EDT Mom is calling in and is wanting to see if she can get a school excuse typed up for Beatris to excuseher.. Definitely would have to be for Friday, mom states Beatris went to school yesterday, but was guanakito lot of pain so stayed home today.. Please advise. Thank you! PH # is [phone] Could be released through [employer] or mom says we can fax directly to the school. [facility] documented in this encounterKettering Health [facility]08-16-2022 Instructions* Patient Instructions* Nataliia Lujan APRN.CNP - 01/01/2022 1:41 PM EDT PATIENT PREOPERATIVE INSTRUCTIONS Mayda Solares,* has scheduled you for your procedure at this surgery center: [facility]: [phone] --[id number] [place] [address]. Please read below carefully for your personalized [...] Procedures: - YOU MUST HAVE A RESPONSIBLE HAND STONER TAKE YOU HOME. A OIL PROCESSING TECHNICIAN OR REAL ESTATE AGENT/BROKER CANNOT BE MADE A RESPONSIBLE HAND STONER. - We recommend that a responsible person [...] Advance Directive, please fax a copy to [phone] or email to for it to be [...] into your chart that day. Nataliia Lujan APRN.CNP documented in this encounterKettering Health [facility]burg08-16-2022 History and physical note * Nataliia Lujan APRN.CNP - 01/01/2022 1:40 PM EDT PREANESTHESIA CONSULT CLINIC TELEHEALTH VISIT Patient has been identified by name and date of : Yes This is a virtual visit using Spreadsave video visit. It require patient-provider interaction for [...] fevers. Neuro: No history of TIA's, stroke, BENCH CARPENTER tumor, impaired sensorium, hemiplegia, paraplegia or quadraplegia. No neurological symptoms or problems. Respiratory: No history of current cough or dyspnea, or pneumonia in the past 6 weeks. No history of respiratory/pulmonary symptoms or problems. Cardiovascular: No history of HTN requiring medication, no history of angina, CHF, [place], cardiac surgery or stents. Denies rest pain, [...] > 1 time per night or hematuria SWIMMING COACH: Negative for abnormal vaginal bleeding, abnormal vaginal [...] device. I spent more than 0-20 minutes agzc-td-nprj with the patient and over half the time was devoted to counseling and/or coordination of care. This is a virtual visit. It required patient-provider interaction for the medical decision making as documented above. SIGNATURE: Nataliia Lujan APRN.CNP PATIENT NAME: Beatris Fletcher DATE: .01/01/2022 TIME: 1:46 PM PAGER/CONTACT #: documented in this encounterKettering Health [facility]burg2022 Miscellaneous Notes* Telephone Encounter - Otoniel Gates [...] - 12/19/2021 4:07 PM EDT pnt mother JANESSA wanting to sched joint surgery on Left knee [phone]-mom Rosa [phone]-dad Edward documented in this encounterKettering Health [facility]07-25-2022 History of Present illness Narrative* Manny Arteaga [...] year ago. Had MRI on 11/11/20 at [facility] MRI at that time revealed possible [...] with more than 50% of the total uqrs-kf-uaiv time of the visit in counseling / coordination of care. We will coordinate with Dr Solares for combined surgery documented in this encounterKettering Health Mi[facility]burg07-22-2022 Miscellaneous Notes* [facility]07[facility]21 8:27 AM EDT Daughter seeing Dr. Arteaga 12/10 then we can move forward with scheduling and the required letter. Message left for mom. * Telephone Encounter - Delmi WOODY - 12/06/2021 11:34 AM EDT Patients mother is calling in and is requesting paperwork be sent to patients dads email so he can turn this into his higher up. He has a prior engagement and needs this form to get off and help with taking care of Beatris afterwards. The email is [email or web address]. The paperwork does not need to give specifics bc of HIPPA, but would need dads name, and the date of surgery for Beatris. Please advise. They are saying they need this before the weekend.. Thank you! documented in this encounterKettering Health [facility]06-22-2022 History of Present illness Narrative* Mayda Solares, [...] for this visit. Physical Exam Vitals: LMP 02/09/2020 Psych: Pleasant, good affect [...] patient Mayda Solares DO documented in this encounterKettering Health [facility]burg06-07-2022 Miscellaneous Notes* Telephone Encounter - Shannon Berrios - 10/23/2021 3:04 PM EDT Patient has been scheduled for visit with Dr. Solares / pre op. * Telephone Encounter - Chago Rendon - 10/23/2021 2:44 PM EDT Please contact the patient for an in person visit. I can schedule her after that. I had actually already left her a message but hadn't heard back yet. * Telephone Encounter - Mayda Solares DO [...] Thanks! Mayda Solares DO documented in this encounterKettering Health [facility]burg06-03-2022 History of Present illness Narrative* Mayda Solares DO - 10/19/2021 12:08 PM EDT VIRTUAL VISIT PROGRESS NOTE This is a virtual visit using MyChart video visit. It required patient-provider interaction for themedical decision making as documented below. Beatris Fletcher is a 16 year old female seen for left knee follow up. Had a pf dislocation event lastsu, seen at OSH, MRI done, and showed ocd lesion, saw me recently, new MRI ordered as had been a while since last one, and is here today for MRI discussion. HISTORY REVIEWED (electronic chart updated): PAST MEDICAL HISTORY Diagnosis Date Ganglion cyst of wrist, left PAST SURGICAL HISTORY Procedure Laterality Date DENTAL SURGERY HX 2014 FAMILY HISTORY Problem [...] which included preparing to see the patient, yyzl-gr-hqjq patient care, completing clinical documentation, communicating with [...] patient. Mayda Solares DO documented in this encounterKettering Health Miamisburg05-31-2022 History of Present illness Narrative* RT Dorys(R) - 10/16/2021 11:20 AM EDT Radiology Service [...] 16, 2021 11:44 AM documented in this encounterKettering Health Miamisburg05-13-2022 Miscellaneous Notes* Telephone Encounter - June Magallon [...] Please schedule/call patient Thanks Mayda Solares DO * Telephone Encounter - Dyan Toscano - 09/27/2021 12:52 PM EDT ----- Message from Mayda Solares DO sent at 09/27/2021 11:59 AM EDT ----- I ordered MRI, her last one of her left knee was a while ago and id like a new one prior to surgical intervention. Please schedule/call patient Thanks Mayda Solares DO documented in this encounterKettering Health [facility]burg05-11-2022 History of Present illness Narrative* Mayda Solares [...] ALLERGIES No Known Allergies Physical Exam: Vitals: [facility] 02/09/2020 Psych: Pleasant, good affect and mood [...] seen in the lateral and patellofemoral compartments. Business Development Analyst: CHAPARRITA ... Complete Results Assessment and Plan: [...] treatment plan as discussed. documented in this encounterKettering Health [facility]05-11-2022 Miscellaneous Notes* Allied Health - RT Xiomara(R) [...] 26, 2021 12:16 PM documented in this encounterKettering Health Mi[facility]burg01-23-2018 History of Past illness Narrative* Problem Noted Date Resolved Date Chronic cough 06/10/2017 11/25/2019 Nocturnal enuresis 10/16/2010 02/22/2020 Ganglion cyst of wrist, left 10/2019 Last Assessment & Plan: Assessment: scheduled for EXCISION GANGLION WRIST LEFT 12/03/2019 documented as of this encounter (statuses as of 09/27/2021) [facility] History of Past illness Narrative* Problem Noted Date Resolved Date Chronic cough 06/10/2017 11/25/2019 Nocturnal enuresis 10/16/2010 02/22/2020 Ganglion cyst of wrist, left 10/2019 Last Assessment & Plan: Assessment: scheduled for EXCISION GANGLION WRIST LEFT 12/03/2019 documented as of this encounter (statuses as of 09/27/2021) [facility] of Past illness Narrative* Problem Noted Date Resolved Date Chronic cough 06/10/2017 11/25/2019 Nocturnal enuresis 10/16/2010 02/22/2020 Ganglion cyst of wrist, left 10/2019 Last Assessment & Plan: Assessment: scheduled for EXCISION GANGLION WRIST LEFT 12/03/2019 documented as of this encounter (statuses as of 09/28/2021) [facility] History of Past illness Narrative* Problem Noted Date Resolved Date Chronic cough 06/10/2017 11/25/2019 Nocturnal enuresis 10/16/2010 02/22/2020 Ganglion cyst of wrist, left 10/2019 Last Assessment & Plan: Assessment: scheduled for EXCISION GANGLION WRIST LEFT 12/03/2019 documented as of this encounter (statuses as of 10/17/2021) [address]23-2018 History of Past illness Narrative* Problem Noted Date Resolved Date Chronic cough 06/10/2017 11/25/2019 Nocturnal enuresis 10/16/2010 02/22/2020 Ganglion cyst of wrist, left 10/2019 Last Assessment & Plan: Assessment: scheduled for EXCISION GANGLION WRIST LEFT 12/03/2019 documented as of this encounter (statuses as of 10/23/2021) [facility] History of Past illness Narrative* Problem Noted Date Resolved Date Chronic cough 06/10/2017 11/25/2019 Nocturnal enuresis 10/16/2010 02/22/2020 Ganglion cyst of wrist, left 10/2019 Last Assessment & Plan: Assessment: scheduled for EXCISION GANGLION WRIST LEFT 12/03/2019 documented as of this encounter (statuses as of 10/23/2021) [address]23-2018 History of Past illness Narrative* Problem Noted Date Resolved Date Chronic cough 06/10/2017 11/25/2019 Nocturnal enuresis 10/16/2010 02/22/2020 Ganglion cyst of wrist, left 10/2019 Last Assessment & Plan: Assessment: scheduled for EXCISION GANGLION WRIST LEFT 12/03/2019 documented as of this encounter (statuses as of 11/08/2021) [address]23-2018 History of Past illness Narrative* Problem Noted Date Resolved Date Chronic cough 06/10/2017 11/25/2019 Nocturnal enuresis 10/16/2010 02/22/2020 Ganglion cyst of wrist, left 10/2019 Last Assessment & Plan: Assessment: scheduled for EXCISION GANGLION WRIST LEFT 12/03/2019 documented as of this encounter (statuses as of 12/10/2021) [address]23-2018 History of Past illness Narrative* Problem Noted Date Resolved Date Chronic cough 06/10/2017 11/25/2019 Nocturnal enuresis 10/16/2010 02/22/2020 Ganglion cyst of wrist, left 10/2019 Last Assessment & Plan: Assessment: scheduled for EXCISION GANGLION WRIST LEFT 12/03/2019 documented as of this encounter (statuses as of 12/26/2021) [address]23-2018 History of Past illness Narrative* Problem Noted Date Resolved Date Chronic cough 06/10/2017 11/25/2019 Nocturnal enuresis 10/16/2010 02/22/2020 Ganglion cyst of wrist, left 10/2019 Last Assessment & Plan: Assessment: scheduled for EXCISION GANGLION WRIST LEFT 12/03/2019 documented as of this encounter (statuses as of 01/01/2022) [address]23-2018 History of Past illness Narrative* Problem Noted Date Resolved Date Chronic cough 06/10/2017 11/25/2019 Nocturnal enuresis 10/16/2010 02/22/2020 Ganglion cyst of wrist, left 10/2019 Last Assessment & Plan: Assessment: scheduled for EXCISION GANGLION WRIST LEFT 12/03/2019 documented as of this encounter (statuses as of 01/07/2022) [address]23-2018 History of Past illness Narrative* Problem Noted Date Resolved Date Chronic cough 06/10/2017 11/25/2019 Nocturnal enuresis 10/16/2010 02/22/2020 Ganglion cyst of wrist, left 10/2019 Last Assessment & Plan: Assessment: scheduled for EXCISION GANGLION WRIST LEFT 12/03/2019 documented as of this encounter (statuses as of 01/24/2022) [facility]01-23-2018 History of Past illness Narrative* Problem Noted Date Resolved Date Chronic cough 06/10/2017 11/25/2019 Nocturnal enuresis 10/16/2010 02/22/2020 Ganglion cyst of wrist, left 10/2019 Last Assessment & Plan: Assessment: scheduled for EXCISION GANGLION WRIST LEFT 12/03/2019 documented as of this encounter (statuses as of 02/01/2022) [facility]23-2018 History of Past illness Narrative* Problem Noted Date Resolved Date Chronic cough 06/10/2017 11/25/2019 Nocturnal enuresis 10/16/2010 02/22/2020 Ganglion cyst of wrist, left 10/2019 Last Assessment & Plan: Assessment: scheduled for EXCISION GANGLION WRIST LEFT 12/03/2019 documented as of this encounter (statuses as of 02/04/2022) [facility]23-2018 History of Past illness Narrative* Problem Noted Date Resolved Date Chronic cough 06/10/2017 11/25/2019 Nocturnal enuresis 10/16/2010 02/22/2020 Ganglion cyst of wrist, left 10/2019 Last Assessment & Plan: Assessment: scheduled for EXCISION GANGLION WRIST LEFT 12/03/2019 documented as of this encounter (statuses as of 02/22/2022) [facility]-2018 History of Past illness Narrative* Problem Noted Date Resolved Date Chronic cough 06/10/2017 11/25/2019 Nocturnal enuresis 10/16/2010 02/22/2020 Ganglion cyst of wrist, left 10/2019 Last Assessment & Plan: Assessment: scheduled for EXCISION GANGLION WRIST LEFT 12/03/2019 documented as of this encounter (statuses as of 02/25/2022) [facility]-2018 History of Past illness Narrative* Problem Noted Date Resolved Date Chronic cough 06/10/2017 11/25/2019 Nocturnal enuresis 10/16/2010 02/22/2020 Ganglion cyst of wrist, left 10/2019 Last Assessment & Plan: Assessment: scheduled for EXCISION GANGLION WRIST LEFT 12/03/2019 documented as of this encounter (statuses as of 02/27/2022) [facility]2018 History of Past illness Narrative* Problem Noted Date Resolved Date Chronic cough 06/10/2017 11/25/2019 Nocturnal enuresis 10/16/2010 02/22/2020 Ganglion cyst of wrist, left 10/2019 Last Assessment & Plan: Assessment: scheduled for EXCISION GANGLION WRIST LEFT 12/03/2019 documented as of this encounter (statuses as of 03/06/2022) [facility]2018 History of Past illness Narrative* Problem Noted Date Resolved Date Chronic cough 06/10/2017 11/25/2019 Nocturnal enuresis 10/16/2010 02/22/2020 Ganglion cyst of wrist, left 10/2019 Last Assessment & Plan: Assessment: scheduled for EXCISION GANGLION WRIST LEFT 12/03/2019 documented as of this encounter (statuses as of 03/15/2022) [facility]2018 History of Past illness Narrative* Problem Noted Date Resolved Date Chronic cough 06/10/2017 11/25/2019 Nocturnal enuresis 10/16/2010 02/22/2020 Ganglion cyst of wrist, left 10/2019 Last Assessment & Plan: Assessment: scheduled for EXCISION GANGLION WRIST LEFT 12/03/2019 documented as of this encounter (statuses as of 04/09/2022) [facility]2018 History of Past illness Narrative* Problem Noted Date Resolved Date Chronic cough 06/10/2017 11/25/2019 Nocturnal enuresis 10/16/2010 02/22/2020 Ganglion cyst of wrist, left 10/2019 Last Assessment & Plan: Assessment: scheduled for EXCISION GANGLION WRIST LEFT 12/03/2019 documented as of this encounter (statuses as of 08/02/2022) [address]23-2018 History of Past illness Narrative* Problem Noted Date Resolved Date Chronic cough 06/10/2017 11/25/2019 Nocturnal enuresis 10/16/2010 02/22/2020 Ganglion cyst of wrist, left 10/2019 Last Assessment & Plan: Assessment: scheduled for EXCISION GANGLION WRIST LEFT 12/03/2019 documented as of this encounter (statuses as of 11/21/2022) [facility] History of Past illness Narrative* Problem Noted Date Diagnosed Date Resolved Date Chronic cough 06/10/2017 11/25/2019 Nocturnal enuresis 10/16/2010 0 Ganglion cyst of wrist, left 02/22/2020 Last Assessment & Plan: Assessment: scheduled for EXCISION GANGLION WRIST LEFT 12/03/2019 documented as of this encounter (statuses as of 01/23/2023) [facility] History of Past illness Narrative* Problem Noted Date Diagnosed Date Resolved Date Chronic cough 06/10/2017 11/25/2019 Nocturnal enuresis 10/16/2010 0 Ganglion cyst of wrist, left 02/22/2020 Last Assessment & Plan: Assessment: scheduled for EXCISION GANGLION WRIST LEFT 12/03/2019 documented as of this encounter (statuses as of 04/02/2023) [facility] History of Past illness Narrative* Problem Noted Date Diagnosed Date Resolved Date Chronic cough 06/10/2017 11/25/2019 Nocturnal enuresis 10/16/2010 0 Ganglion cyst of wrist, left 02/22/2020 Last Assessment & Plan: Assessment: scheduled for EXCISION GANGLION WRIST LEFT 12/03/2019 documented as of this encounter (statuses as of 07/24/2023) [facility]2018 History of Past illness Narrative* Problem Noted Date Diagnosed Date Resolved Date Chronic cough 06/10/2017 11/25/2019 Nocturnal enuresis 10/16/2010 0 Ganglion cyst of wrist, left 02/22/2020 Last Assessment & Plan: Assessment: scheduled for EXCISION GANGLION WRIST LEFT 12/03/2019 documented as of this encounter (statuses as of 08/01/2023) [facility] History of Past illness Narrative* Problem Noted Date Diagnosed Date Resolved Date Chronic cough 06/10/2017 11/25/2019 Nocturnal enuresis 10/16/2010 0 Ganglion cyst of wrist, left 02/22/2020 Last Assessment & Plan: Assessment: scheduled for EXCISION GANGLION WRIST LEFT 12/03/2019 documented as of this encounter (statuses as of 08/01/2023) [facility] History of Past illness Narrative* Problem Noted Date Diagnosed Date Resolved Date Chronic cough 06/10/2017 11/25/2019 Nocturnal enuresis 10/16/2010 0 Ganglion cyst of wrist, left 02/22/2020 Last Assessment & Plan: Assessment: scheduled for EXCISION GANGLION WRIST LEFT 12/03/2019 documented as of this encounter (statuses as of 08/19/2023) [facility] History of Past illness Narrative* Problem Noted Date Diagnosed Date Resolved Date Chronic cough 06/10/2017 11/25/2019 Nocturnal enuresis 10/16/2010 0 Ganglion cyst of wrist, left 02/22/2020 Last Assessment & Plan: Assessment: scheduled for EXCISION GANGLION WRIST LEFT 12/03/2019 documented as of this encounter (statuses as of 08/27/2023) [facility] History of Past illness Narrative* Problem Noted Date Diagnosed Date Resolved Date Chronic cough 06/10/2017 11/25/2019 Nocturnal enuresis 10/16/2010 0 Ganglion cyst of wrist, left 02/22/2020 Last Assessment & Plan: Assessment: scheduled for EXCISION GANGLION WRIST LEFT 12/03/2019 documented as of this encounter (statuses as of 08/28/2023) [facility] History of Past illness Narrative* Problem Noted Date Diagnosed Date Resolved Date Chronic cough 06/10/2017 11/25/2019 Nocturnal enuresis 10/16/2010 0 Ganglion cyst of wrist, left 02/22/2020 Last Assessment & Plan: Assessment: scheduled for EXCISION GANGLION WRIST LEFT 12/03/2019 documented as of this encounter (statuses as of 08/30/2023) [address]23-2018 History of Past illness Narrative* Problem Noted Date Diagnosed Date Resolved Date Chronic cough 06/10/2017 11/25/2019 Nocturnal enuresis 10/16/2010 0 Ganglion cyst of wrist, left 02/22/2020 Last Assessment & Plan: Assessment: scheduled for EXCISION GANGLION WRIST LEFT 12/03/2019 documented as of this encounter (statuses as of 09/03/2023) [facility] Blane Alfred [facility] Note Date/Time August 17, 2024 1:51 am [facility] Medical Records Department [address] [place] [address] Emergency Department Summary 08/17/24 MR#: [id number] Acct: [id number] Name: BEATRIS FLETCHER Rep #:[id number] : 2005 19 From: Blane Alfred MD [...] home and treated as a kidney stone. Lane for pain. Motrin. Fluids. Urine strainer. Urology [...] 45.2 L Lymph % (Auto) 45.9 H [place] % (Auto) 6.6 Eos % (Auto) 1.7 [...] Clarity Clear Urine pH 7.0 Ur Specific Commerce 1.010 Urine Protein 30 H Urine Glucose [...] stranding or urothelial thickening seen. Reading Location: [facility] CT of the abdomen pelvis with [...] in your bladder your pain should resolve. Lane for severe pain. Otherwise you can use [...] best way to prevent kidneystones. Print Language: Palestinian Disposition Disposition: Home, Self Care What to do if you have Problems For any increased pain, shortness of breath, bleeding, nausea or vomiting, chestpain, or any unexpected problems, contact your Primary Care Provider. Call [facility] ([phone]) or report to the closest Emergency Room. Call 911 if necessary. 08/17/24 0151 <Electronically signed by Blane Alfred MD> Gloriaer Signature (if applicable): CC: No Primary Care Physician ~ Signed [facility] Work Phone: Evaluation note* Diagnosis Pain Generalized pain Chronic pain of left knee Pain in joint, lower leg [facility] Chronic pain of left knee- Primary Pain in joint, lower leg 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 [facility] Diagnosis Chronic pain of left knee Pain in joint, lower leg Knee OCD Osteochondritis dissecans [facility] Diagnosis Chronic pain of left knee- Primary Pain in joint, lower leg 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 Other joint derangement, not elsewhere classified, lower leg [facility] Diagnosis Chronic pain of left [...] initial encounter- Primary [facility] Diagnosis Myopia, bilateral- Primary Myopia [facility] Diagnosis Sore throat- Primary Acute pharyngitis URI, acute Acute upper respiratory infections of unspecified site [facility] Diagnosis Rash- Primary Rash and other nonspecific skin eruption [facility] Diagnosis Sore throat- Primary Acute pharyngitis [facility] noteNo assessment information availableWProMedica [facility] Work Phone: Evaluation note* Diagnosis Chronic pain of left knee- Primary Pain in joint, lower leg [facility] Diagnosis Chronic pain of left knee Pain in joint, lower leg [facility] Diagnosis S/P knee surgery- Primary Other postprocedural status Loose body in knee, left knee [facility] Diagnosis S/P knee surgery Other postprocedural status [facility] Diagnosis S/P knee surgery- Primary Other postprocedural status [facility] Diagnosis Nausea- Primary Nausea alone [facility] Diagnosis S/P knee surgery Other postprocedural status Loose body in knee, left knee [facility] Diagnosis S/P knee surgery- Primary Other postprocedural status [facility] Diagnosis Nausea- Primary Nausea alone [facility] Diagnosis Dizziness- Primary Dizziness and giddiness Nausea and vomiting, unspecified vomiting type [facility] Diagnosis Myopia, bilateral- Primary Myopia [facility]* Diagnosis with uncertain dates, antepartum- Primary state, incidental Encounter for care in first trimester of first Generalized anxiety disorder History of depression Personal history of other mental disorder Supervision of normal first teen in second trimester Acute vaginitis Vaginitis and vulvovaginitis, unspecified Nausea and vomiting during Normal first with uncertain date of LMP, antepartum Supervision of normal first [facility] Diagnosis Generalized anxiety disorder- Primary History of depression Personal history of other mental disorder Supervision of normal first teen in second trimester Nausea and vomiting during Normal first with uncertain date of LMP, antepartum Supervision of normal first [facility] Diagnosis Encounter for screening for malformation using ultrasound- Primary 12 weeks gestation of state, incidental 12 weeks gestation of - Primary state, incidental [facility] Diagnosis Encounter for screening for malformation using ultrasound- Primary 12 weeks gestation of state, incidental [facility] Diagnosis Supervision of normal first teen in second trimester- Primary Nausea and vomiting during Normal first with uncertain date of LMP, antepartum Supervision of normal first Generalized anxiety disorder History of depression Personal history of other mental disorder 12 weeks gestation of state, incidental [facility] Diagnosis Nausea- Primary Nausea alone [facility] Diagnosis Supervision of normal first teen in second trimester- Primary 15 weeks gestation of state, incidental Nausea and vomiting during Generalized anxiety disorder History of depression Personal history of other mental disorder Rubella non-immune status, antepartum Other specified complication, antepartum [facility] Diagnosis Supervision of normal first teen in second trimester- Primary Nausea and vomiting during History of depression Personal history of other mental disorder Rubella non-immune status, antepartum Other specified complication, antepartum Generalized anxiety disorder 20 weeks gestation of state, incidental Back pain in Other specified complication of , unspecified as to episode of care [facility] Diagnosis Encounter for anatomic survey- Primary 20 weeks gestation of state, incidental [facility] Diagnosis Pain Generalized pain [facility] Pain Generalized pain [facility] Diagnosis Encounter for care in first trimester of first [facility] Diagnosis 24 weeks gestation of - Primary state, incidental Supervision of normal first teen in second trimester Generalized anxiety disorder Rubella non-immune status, antepartum Other specified complication, antepartum History of depression Personal history of other mental disorder Encounter for care in first trimester of first Heartburn during in second trimester [facility] Diagnosis Viral URI- Primary Acute upper respiratory infections of unspecified site [facility]* Diagnosis Elevated glucose tolerance test- Primary Impaired glucose tolerance test [facility] Diagnosis Supervision of normal first teen [...] other mental disorder [facility]* Diagnosis 29 weeks gestation of - Primary state, incidental Encounter for supervision of normal first in third trimester Supervision of normal first Rubella non-immune status, antepartum Other specified complication, antepartum Low-lying placenta Hemorrhage from placenta previa, unspecified as to episode of care [facility] Diagnosis 32 weeks gestation of - Primary state, incidental Encounter for supervision of normal first in third trimester Supervision of normal first Low-lying placenta Hemorrhage from placenta previa, unspecified as to episode of care Heartburn during in third trimester [facility]* Diagnosis Encounter for ultrasound to check growth- Primary Encounter for routine screening for malformation using ultrasonics Suspected placental problem not found 32 weeks gestation of state, incidental [facility]* Diagnosis 34 weeks gestation of - Primary state, incidental Encounter for supervision of normal first in third trimester Supervision of normal first Rubella non-immune status, antepartum Other specified complication, antepartum Heartburn during in third trimester [facility]* Diagnosis Supervision of normal first teen in second trimester- Primary Heartburn during in third trimester Rubella non-immune status, antepartum Other specified complication, antepartum History of depression Personal history of other mental disorder Uterine size-date discrepancy in third trimester Uterine size date discrepancy, antepartum condition or complication [facility]* Diagnosis Encounter for supervision of normal first in third trimester- Primary Supervision of normal first Uterine size-date discrepancy in third trimester Uterine size date discrepancy, antepartum condition or complication Need for RSV vaccination Need for prophylactic vaccination and inoculation against respiratory syncytial virus 36 weeks gestation of state, incidental [facility] Diagnosis 2 weeks follow-up- Primary Lactating mother care and examination of lactating mother First-degree perineal laceration in First-degree perineal laceration, unspecified as to episode of care in Generalized anxiety disorder [facility] Diagnosis Post depression- Primary Mental disorders of mother, [facility] Diagnosis 2 weeks follow-up- Primary Post depression Mental disorders of mother, [facility] Diagnosis Post depression- Primary Mental disorders of mother, Generalized anxiety disorder [facility] Diagnosis care and examination- Primary Routine follow-up Encounter for IUD insertion Encounter for insertion of intrauterine contraceptive device Post depression Mental disorders of mother, Generalized anxiety disorder [facility] Diagnosis Acute cough- Primary Rhinosinusitis Unspecified sinusitis (chronic) Acute cough [facility] Acute cough [facility] Diagnosis Encounter for care in first trimester of first (HCC) [facility] Diagnosis Encounter for IUD insertion- Primary Encounter for insertion of intrauterine contraceptive device [facility] Additional Instructions Please follow-up with crisis center as directed regarding your event that occurred this evening. If you have any further concerns or worsening of symptoms please return to the ER for repeat evaluationWProMedica [facility] Work Phone: Hospital Discharge instructions Additional Instructions Your pain is from a 2 mm kidney stone on the left. It is already all the way down by your bladder. It should pass without any difficulty. Once he gets in your bladder your pain should resolve. Lane for severe pain. Otherwise you can use [...] is the best way to prevent kidney stones.[facility] Work Phone: Hospital Discharge instructionsAdditional Instructions Most likely secondary to your IUD. Plenty of fluids. Motrin and Tylenol for pain. Follow-up with your nurse coil spring assembler if not improving. Or your [employer].[facility] Work Phone: Reason for referral (narrative)* Diagnostic Procedure Only (Routine) - Closed Specialty Diagnoses / Procedures Referred By Contac t Referred To Contact XR IMAGING Diagnoses Chronic pain of left knee Procedures XR KNEE GENERAL 4V AP BOTH/PA BOTH/LAT/MERC LEFT RADIOLOGIC EXAM KNEE COMPLETE 4/MORE VIEWS Mayda Solares DO [address] [place] [address] Xr Imaging Referral ID Status Reason Start Date Expiration Date V isits Requested Visits Authorized [id number] Closed Auto-Generate d Referral 09/26/2021 10/26/2022 1 1 [facility] for referral (narrative)* Diagnostic Procedure Only (Routine) - Pending Review Specialty Diagnoses / Procedures Referred By Natasha t Referred To Contact XR IMAGING Diagnoses Chronic pain of left knee Procedures XR KNEE GENERAL 4V AP BOTH/PA BOTH/LAT/MERC LEFT RADIOLOGIC EXAM KNEE COMPLETE 4/MORE VIEWS Mayda Solares DO [address] [facility] [address] [place] [address] [place] [id number] Referral ID Status Reason Start Date Expiration Date Visits Requested Visits Authorized [id number] Pending Review Auto-Generat ed Referral 07/24/2023 08/22/2024 1 1 [facility] for referral (narrative)* Diagnostic Procedure Only (Routine) - Closed Specialty Diagnoses / Procedures Referred By Contac t Referred To Contact XR IMAGING Diagnoses Chronic pain of left knee Procedures XR KNEE GENERAL 4V AP BOTH/PA BOTH/LAT/MERC LEFT RADIOLOGIC EXAM KNEE COMPLETE 4/MORE VIEWS Mayda Solares DO [address] [place] [address] [facility] [address] Referral ID Status Reason Start Date Expiration Date V isits Requested Visits Authorized [id number] Closed Auto-Generate d Referral 07/24/2023 08/22/2024 1 1 [facility] for referral (narrative)* Diagnostic Procedure Only (Routine) - New Request Specialty Diagnoses / Procedures Referred By Contac t Referred To Contact [facility] Diagnoses 12 weeks gestation of Procedures NUCHAL TRANSLUCENCY WHI US NUCHAL TRANSLUCENCY GESTATION Anitra Caldwell APRN.CNM [address] [place] [address] [facility] [place] [address] [place] [address] Referral ID Status Reason Start Date Expiration Date Visits Requested Visits Authorized [id number] New Request Auto-Generat ed Referral 11/28/2023 11/27/2024 1 1 [facility] for referral (narrative)* Diagnostic Procedure Only (Routine) - New Request Specialty Diagnoses / Procedures Referred By Contac t Referred To Contact [facility] Diagnoses Supervision of normal first teen in second trimester Procedures OBSTETRIC ULTRASOUND WHI US PREG UTERUS AFTER 1ST TRIMEST GESTATION Antira Caldwell APRN.CNM [address] [place] [address] [facility] [place] [address] [place] [address] Referral ID Status Reason Start Date Expiration Date Visits Requested Visits Authorized [id number] New Request Auto-Generat ed Referral 11/28/2023 11/27/2024 1 1 [facility] for referral (narrative)* Diagnostic Procedure Only (Urgent) - Closed Specialty Diagnoses / Procedures Referred By Contac t Referred To Contact XR IMAGING Diagnoses Pain Procedures XR FOOT GENERAL 3V AP/LAT/OBL RIGHT RADEX FOOT COMPLETE MINIMUM 3 VIEWS Zhanna Osborne APRN.[employer] [address] [place] [address] [place] [address] Referral ID Status Reason Start Date Expiration Date V isits Requested Visits Authorized [id number] Closed Auto-Generate d Referral 02/18/2023 03/19/2024 1 1 [facility] for referral (narrative)* Diagnostic Procedure Only (Urgent) - Closed Specialty Diagnoses / Procedures Referred By Contac t Referred To Contact XR IMAGING Diagnoses Pain Procedures XR ANKLE GENERAL 3V AP/LAT/OBL RIGHT RADEX ANKLE COMPLETE MINIMUM 3 VIEWS Zhanna Osborne APRN.[employer] [address] [place] [address] [place] [address] Referral ID Status Reason Start Date Expiration Date V isits Requested Visits Authorized [id number] Closed Auto-Generate d Referral 02/18/2023 03/19/2024 1 1 [facility] for referral (narrative)No reason for referral information [facility]: Reason for visit Narrative* Diagnostic Procedure Only (Routine) - Closed Specialty Diagnoses / Procedures Referred By Contac t Referred To Contact XR IMAGING Diagnoses Pain Procedures XR KNEE GENERAL 4V AP BOTH/PA BOTH/LAT/MERC RIGHT RADIOLOGIC EXAM KNEE COMPLETE 4/MORE VIEWS Mayda Solares DO [address] [place] [address] [facility] Referral ID Status Reason Start Date Expiration Date V isits Requested Visits Authorized [id number] Closed Auto-Generate d Referral 08/17/2021 09/16/2022 1 1 [facility] for visit Narrative* Diagnostic Procedure Only (Routine) - Closed Specialty Diagnoses / Procedures Referred By Contac t Referred To Contact XR IMAGING Diagnoses Chronic pain of left knee Procedures XR KNEE GENERAL 4V AP BOTH/PA BOTH/LAT/MERC LEFT RADIOLOGIC EXAM KNEE COMPLETE 4/MORE VIEWS Mayda Solares DO [address] [facility] [address] [place] [address] [place] [address] Referral ID Status Reason Start Date Expiration Date V isits Requested Visits Authorized [id number] Closed Auto-Generate d Referral 07/24/2023 08/22/2024 1 1 [facility] for visit Narrative* Diagnostic Procedure Only (Urgent) - Closed Specialty Diagnoses / Procedures Referred By Contac t Referred To Contact XR IMAGING Diagnoses Pain Procedures XR FOOT GENERAL 3V AP/LAT/OBL RIGHT RADEX FOOT COMPLETE MINIMUM 3 VIEWS Zhanna Osborne, [employer] OFFICER.[employer] [address] [place] [address] [place] [address] Referral ID Status Reason Start Date Expiration Date V isits Requested Visits Authorized [id number] Closed Auto-Generate d Referral 02/18/2023 03/19/2024 1 1 [facility] for visit Narrative* Diagnostic Procedure Only (Urgent) - Closed Specialty Diagnoses / Procedures Referred By Contac t Referred To Contact XR IMAGING Diagnoses Pain Procedures XR ANKLE GENERAL 3V AP/LAT/OBL RIGHT RADEX ANKLE COMPLETE MINIMUM 3 VIEWS Zhanna Osborne, ESAU.M[employer]IC TILER [address] [place] [address] [place] [address] Referral ID Status Reason Start Date Expiration Date V isits Requested Visits Authorized [id number] Closed Auto-Generate d Referral 02/18/2023 03/19/2024 1 1 [facility] Summary Purpose Family History No Family History [...] Will No June 03 12:42am Power of Chairman And Chief Executive Officer No June 03, 2023 12:42am Advance Directive Response Recorded Date/ Time Living Will No May 25 12:56pm Do you have a Healthcare Power of Chairman And Chief Executive Officer? No May 25, 2024 12:56pm Living Will No August 17, 2024 1:18am Do you have a Healthcare Power of Chairman And Chief Executive Officer? No August 17, 2024 1:18am Advance Directive Response Recorded Date/ Time Living Will No August 17, 2024 1:18am Do you have a Healthcare Power of Chairman And Chief Executive Officer? No August 17, 2024 1:18am Do you have a Healthcare Power of Chairman And Chief Executive Officer? No December 05, 2024 10:40am Reason for Referral Specialty Diagnoses / Procedures Referred By Contac t Referred To Contact [facility] IMAGING Diagnoses Chronic pain of left knee Knee OCD Procedures MRI KNEE WO IVCON LT MRI ANY JT LOWER EXTREM W/O CONTRAST Mayda Lemons DO [address] [place] [id number] [facility] Referral ID Status Reason Start Date Expiration Date V isits Requested Visits Authorized [id number] Closed Auto-Generate d Referral 09/28/2021 10/27/2021 1 1 Specialty Diagnoses / Procedures Referred By Contact Referred To Contact [facility] Diagnoses Patellar dislocation, left, subsequent encounter S/P orthopedic surgery, follow-up exam Procedures CONSULT TO PHYSICAL THERAPY PHYSICAL THERAPY EVALUATION HIGH COMPLEX 45 MINS Otoniel Gates PA-C [address] [place] [address] [facility] [address] [place] [address] Referral ID Status Reason Start Date Expiration Date Visits Requested Visits Authorized [id number] Pending Review Auto-Generat ed Referral 12/26/2021 12/26/2022 1 1 Referral ID Status Reason Start Date Expiration Date Visits Requested Visits Authorized [id number] Pending Review Auto-Generat ed Referral 12/26/2021 12/26/2022 1 1 Specialty Diagnoses / Procedures Referred By Contac t Referred To Contact [facility] Diagnoses Patellar dislocation, left, subsequent encounter S/P orthopedic surgery, follow-up exam Procedures PT REHAB FOLLOW UP ORDER THERAPEUTIC EXERCISES RE, EA 15 MIN. Lemon, June, PT [facility] [address] [place] [address] Referral ID Status Reason Start Date Expiration Date Visits Requested Visits Authorized [id number] Pending Review PCP Requested Referral Auto-Generate d Referral 02/04/2022 05/05/2022 1 1 Specialty Diagnoses / Procedures Referred By Contac t Referred To Contact MR IMAGING Diagnoses S/P knee surgery Loose body in knee, left knee Procedures MRI KNEE WO IVCON LEFT MRI ANY JT LOWER EXTREM W/O CONTRAST Mayda Lemons DO [address] [place] [address] [place] [address] Referral ID Status Reason Start Date Expiration Date Visits Requested Visits Authorized [id number] Pending Review Auto-Generat ed Referral 07/31/2023 08/29/2024 1 1 Specialty Diagnoses / Procedures Referred By Contac t Referred To Contact [facility] Diagnoses S/P knee surgery Procedures CONSULT TO PHYSICAL THERAPY PHYSICAL THERAPY EVALUATION HIGH COMPLEX 45 MINS Mayda Solares DO [address] [place] [address] [facility] [address] [address] Referral ID Status Reason Start Date Expiration Date Visits Requested Visits Authorized [id number] Authorized Auto-Generat ed Referral 05/19/2023 05/18/2024 30 30 Specialty Diagnoses / Procedures Referred By Contac t Referred To Contact MR IMAGING Diagnoses S/P knee surgery Loose body in knee, left knee Procedures MRI KNEE WO IVCON LEFT MRI ANY JT LOWER EXTREM W/O CONTRAST Mayda Lemons DO [address] [place] [address] [address] Referral ID Status Reason Start Date Expiration Date V isits Requested Visits Authorized [id number] Closed Auto-Generate d Referral 07/31/2023 11/20/2023 1 1 Specialty Diagnoses / Procedures Referred By Contac t Referred To Contact Diagnoses 2 weeks follow-up Generalized anxiety disorder Procedures CONSULT TO [facility] OFFICE/OUTPATIENT [facility] 60 MINUTES Leena Gaytan APRN.M [address] [place] [address] Referral ID Status Reason Start Date Expiration Date Visits Requested Visits Authorized [id number] Authorized PCP Requested Referral 06/17/2024 06/17/2025 1 1 Specialty Diagnoses / Procedures Referred By Contac t Referred To Contact Diagnoses Post depression Procedures CONSULT TO PSYCHIATRY OFFICE/OUTPATIENT [facility] 60 MINUTES Nataliia Vail LISW [address] [place] [address] Referral ID Status Reason Start Date Expiration Date Visits Requested Visits Authorized [id number] Pending Review PCP Requested Referral 06/24/2024 06/24/2025 1 1 Medications Administered Section Active Administered Medications - up to 3 most recent administrations Medication Order MAR Action Action Date Dose Rate Site proparacaine 0.5 % 1 Drop (ALCAINE) 1 Drop, BOTH EYES, DIRECTED, Starting on Fri08/02/22 at 1000, Until Fri08/02/22 at 215, Administer for pneumo tonometry, tonopen tonometry, or [...] Visit Admit Date (spontaneous vaginal delivery) Janua 2024 11:24am 37 weeks gestation of May 25, 2024 11:24am History of depression May 25, 2024 11:24am Rubella non-immune status, antepartum [facility] 2024 11:24am Chief Complaint Admit Date abd pain August 16, 2024 11: 40pm BLEEDING December 05, 2024 10:4 0am Additional Source Comments INFORMATION SOURCE (unrecogn ized section and content) DATE CREATED AUTHOR 12/10/2019 [facility] DATE CREATED AUTHOR AUTHOR'S ORGANIZ ATION 09/28/2021 [facility] DATE CREATED AUTHOR AUTHOR'S ORGANIZ ATION 04/25/2023 [facility] DATE CREATED AUTHOR AUTHOR'S ORGANIZ ATION 11/28/2024 [facility] DATE CREATED AUTHOR AUTHOR'S ORGANIZ ATION 12/07/2024 [facility] Source Comments (unrecognize d section and content) In the event this informatio n is protected by the Federal Confidentiality of Alcohol and Drug Abuse Patient Records regulations: The Federal rules restrict any use of the information to criminally investigate or prosecute any alcohol or drug abuse patient.[facility] the event this information is protected by the Federal Confidentiality of Alcohol and Drug Abuse Patient Records regulations: The Federal rules restrict any use of the information to criminally investigate or prosecute any alcohol or drug abuse patient.[facility] the event this information is protected by the Federal Confidentiality of Alcohol and Drug Abuse Patient Records regulations: The Federal rules restrict any use of the information to criminally investigate or prosecute any alcohol or drug abuse patient.[facility] the event this information is protected by the Federal Confidentiality of Alcohol and Drug Abuse Patient Records regulations: The Federal rules restrict any use of the information to criminally investigate or prosecute any alcohol or drug abuse patient.[facility] the event this information is protected by the Federal Confidentiality of Alcohol and Drug Abuse Patient Records regulations: The Federal rules restrict any use of the information to criminally investigate or prosecute any alcohol or drug abuse patient.[facility] the event this information is protected by the Federal Confidentiality of Alcohol and Drug Abuse Patient Records regulations: The Federal rules restrict any use of the information to criminally investigate or prosecute any alcohol or drug abuse patient.[facility] the event this information is protected by the Federal Confidentiality of Alcohol and Drug Abuse Patient Records regulations: The Federal rules restrict any use of the information to criminally investigate or prosecute any alcohol or drug abuse patient.[facility] the event this information is protected by the Federal Confidentiality of Alcohol and Drug Abuse Patient Records regulations: The Federal rules restrict any use of the information to criminally investigate or prosecute any alcohol or drug abuse patient.[facility] the event this information is protected by the Federal Confidentiality of Alcohol and Drug Abuse Patient Records regulations: The Federal rules restrict any use of the information to criminally investigate or prosecute any alcohol or drug abuse patient.[facility] the event this information is protected by the Federal Confidentiality of Alcohol and Drug Abuse Patient Records regulations: The Federal rules restrict any use of the information to criminally investigate or prosecute any alcohol or drug abuse patient.[facility] the event this information is protected by the Federal Confidentiality of Alcohol and Drug Abuse Patient Records regulations: The Federal rules restrict any use of the information to criminally investigate or prosecute any alcohol or drug abuse patient.[facility] the event this information is protected by the Federal Confidentiality of Alcohol and Drug Abuse Patient Records regulations: The Federal rules restrict any use of the information to criminally investigate or prosecute any alcohol or drug abuse patient.[facility] the event this information is protected by the Federal Confidentiality of Alcohol and Drug Abuse Patient Records regulations: The Federal rules restrict any use of the information to criminally investigate or prosecute any alcohol or drug abuse patient.[facility] the event this information is protected by the Federal Confidentiality of Alcohol and Drug Abuse Patient Records regulations: The Federal rules restrict any use of the information to criminally investigate or prosecute any alcohol or drug abuse patient.[facility] the event this information is protected by the Federal Confidentiality of Alcohol and Drug Abuse Patient Records regulations: The Federal rules restrict any use of the information to criminally investigate or prosecute any alcohol or drug abuse patient.[facility] the event this information is protected by the Federal Confidentiality of Alcohol and Drug Abuse Patient Records regulations: The Federal rules restrict any use of the information to criminally investigate or prosecute any alcohol or drug abuse patient.[facility] the event this information is protected by the Federal Confidentiality of Alcohol and Drug Abuse Patient Records regulations: The Federal rules restrict any use of the information to criminally investigate or prosecute any alcohol or drug abuse patient.[facility] the event this information is protected by the Federal Confidentiality of Alcohol and Drug Abuse Patient Records regulations: The Federal rules restrict any use of the information to criminally investigate or prosecute any alcohol or drug abuse patient.[facility] the event this information is protected by the Federal Confidentiality of Alcohol and Drug Abuse Patient Records regulations: The Federal rules restrict any use of the information to criminally investigate or prosecute any alcohol or drug abuse patient.[facility] the event this information is protected by the Federal Confidentiality of Alcohol and Drug Abuse Patient Records regulations: The Federal rules restrict any use of the information to criminally investigate or prosecute any alcohol or drug abuse patient.[facility]burg[facility] the event this information is protected by the Federal Confidentiality of Alcohol and Drug Abuse Patient Records regulations: The Federal rules restrict any use of the information to criminally investigate or prosecute any alcohol or drug abuse patient.[facility]burg[facility] the event this information is protected by the Federal Confidentiality of Alcohol and Drug Abuse Patient Records regulations: The Federal rules restrict any use of the information to criminally investigate or prosecute any alcohol or drug abuse patient.[facility] the event this information is protected by the Federal Confidentiality of Alcohol and Drug Abuse Patient Records regulations: The Federal rules restrict any use of the information to criminally investigate or prosecute any alcohol or drug abuse patient.[facility] the event this information is protected by the Federal Confidentiality of Alcohol and Drug Abuse Patient Records regulations: The Federal rules restrict any use of the information to criminally investigate or prosecute any alcohol or drug abuse patient.[facility] the event this information is protected by the Federal Confidentiality of Alcohol and Drug Abuse Patient Records regulations: The Federal rules restrict any use of the information to criminally investigate or prosecute any alcohol or drug abuse patient.[facility] the event this information is protected by the Federal Confidentiality of Alcohol and Drug Abuse Patient Records regulations: The Federal rules restrict any use of the information to criminally investigate or prosecute any alcohol or drug abuse patient.[facility] the event this information is protected by the Federal Confidentiality of Alcohol and Drug Abuse Patient Records regulations: The Federal rules restrict any use of the information to criminally investigate or prosecute any alcohol or drug abuse patient.[facility] the event this information is protected by the Federal Confidentiality of Alcohol and Drug Abuse Patient Records regulations: The Federal rules restrict any use of the information to criminally investigate or prosecute any alcohol or drug abuse patient.[facility] the event this information is protected by the Federal Confidentiality of Alcohol and Drug Abuse Patient Records regulations: The Federal rules restrict any use of the information to criminally investigate or prosecute any alcohol or drug abuse patient.[facility] the event this information is protected by the Federal Confidentiality of Alcohol and Drug Abuse Patient Records regulations: The Federal rules restrict any use of the information to criminally investigate or prosecute any alcohol or drug abuse patient.[facility] the event this information is protected by the Federal Confidentiality of Alcohol and Drug Abuse Patient Records regulations: The Federal rules restrict any use of the information to criminally investigate or prosecute any alcohol or drug abuse patient.[facility] the event this information is protected by the Federal Confidentiality of Alcohol and Drug Abuse Patient Records regulations: The Federal rules restrict any use of the information to criminally investigate or prosecute any alcohol or drug abuse patient.[facility] the event this information is protected by the Federal Confidentiality of Alcohol and Drug Abuse Patient Records regulations: The Federal rules restrict any use of the information to criminally investigate or prosecute any alcohol or drug abuse patient.[facility] the event this information is protected by the Federal Confidentiality of Alcohol and Drug Abuse Patient Records regulations: The Federal rules restrict any use of the information to criminally investigate or prosecute any alcohol or drug abuse patient.[facility] the event this information is protected by the Federal Confidentiality of Alcohol and Drug Abuse Patient Records regulations: The Federal rules restrict any use of the information to criminally investigate or prosecute any alcohol or drug abuse patient.[facility] the event this information is protected by the Federal Confidentiality of Alcohol and Drug Abuse Patient Records regulations: The Federal rules restrict any use of the information to criminally investigate or prosecute any alcohol or drug abuse patient.[facility] the event this information is protected by the Federal Confidentiality of Alcohol and Drug Abuse Patient Records regulations: The Federal rules restrict any use of the information to criminally investigate or prosecute any alcohol or drug abuse patient.[facility] the event this information is protected by the Federal Confidentiality of Alcohol and Drug Abuse Patient Records regulations: The Federal rules restrict any use of the information to criminally investigate or prosecute any alcohol or drug abuse patient.[facility] the event this information is protected by the Federal Confidentiality of Alcohol and Drug Abuse Patient Records regulations: The Federal rules restrict any use of the information to criminally investigate or prosecute any alcohol or drug abuse patient.[facility] the event this information is protected by the Federal Confidentiality of Alcohol and Drug Abuse Patient Records regulations: The Federal rules restrict any use of the information to criminally investigate or prosecute any alcohol or drug abuse patient.[facility] the event this information is protected by the Federal Confidentiality of Alcohol and Drug Abuse Patient Records regulations: The Federal rules restrict any use of the information to criminally investigate or prosecute any alcohol or drug abuse patient.[facility] the event this information is protected by the Federal Confidentiality of Alcohol and Drug Abuse Patient Records regulations: The Federal rules restrict any use of the information to criminally investigate or prosecute any alcohol or drug abuse patient.[facility] the event this information is protected by the Federal Confidentiality of Alcohol and Drug Abuse Patient Records regulations: The Federal rules restrict any use of the information to criminally investigate or prosecute any alcohol or drug abuse patient.[facility] the event this information is protected by the Federal Confidentiality of Alcohol and Drug Abuse Patient Records regulations: The Federal rules restrict any use of the information to criminally investigate or prosecute any alcohol or drug abuse patient.[facility] the event this information is protected by the Federal Confidentiality of Alcohol and Drug Abuse Patient Records regulations: The Federal rules restrict any use of the information to criminally investigate or prosecute any alcohol or drug abuse patient.[facility]burg[facility] the event this information is protected by the Federal Confidentiality of Alcohol and Drug Abuse Patient Records regulations: The Federal rules restrict any use of the information to criminally investigate or prosecute any alcohol or drug abuse patient.[facility] the event this information is protected by the Federal Confidentiality of Alcohol and Drug Abuse Patient Records regulations: The Federal rules restrict any use of the information to criminally investigate or prosecute any alcohol or drug abuse patient.[facility] the event this information is protected by the Federal Confidentiality of Alcohol and Drug Abuse Patient Records regulations: The Federal rules restrict any use of the information to criminally investigate or prosecute any alcohol or drug abuse patient.[facility]burg[facility] the event this information is protected by the Federal Confidentiality of Alcohol and Drug Abuse Patient Records regulations: The Federal rules restrict any use of the information to criminally investigate or prosecute any alcohol or drug abuse patient.[facility]burgIn the event this information is protected by the Federal Confidentiality of Alcohol and Drug Abuse Patient Records regulations: The Federal rules restrict any use of the information to criminally investigate or prosecute any alcohol or drug abuse patient.[facility]burgIn the event this information is protected by the Federal Confidentiality of Alcohol and Drug Abuse Patient Records regulations: The Federal rules restrict any use of the information to criminally investigate or prosecute any alcohol or drug abuse patient.[facility]burgIn the event this information is protected by the Federal Confidentiality of Alcohol and Drug Abuse Patient Records regulations: The Federal rules restrict any use of the information to criminally investigate or prosecute any alcohol or drug abuse patient.[facility]burgIn the event this information is protected by the Federal Confidentiality of Alcohol and Drug Abuse Patient Records regulations: The Federal rules restrict any use of the information to criminally investigate or prosecute any alcohol or drug abuse patient.[facility]burgIn the event this information is protected by the Federal Confidentiality of Alcohol and Drug Abuse Patient Records regulations: The Federal rules restrict any use of the information to criminally investigate or prosecute any alcohol or drug abuse patient.[facility]burgIn the event this information is protected by the Federal Confidentiality of Alcohol and Drug Abuse Patient Records regulations: The Federal rules restrict any use of the information to criminally investigate or prosecute any alcohol or drug abuse patient.[facility]burgIn the event this information is protected by the Federal Confidentiality of Alcohol and Drug Abuse Patient Records regulations: The Federal rules restrict any use of the information to criminally investigate or prosecute any alcohol or drug abuse patient.[facility]burgIn the event this information is protected by the Federal Confidentiality of Alcohol and Drug Abuse Patient Records regulations: The Federal rules restrict any use of the information to criminally investigate or prosecute any alcohol or drug abuse patient.[facility]burgIn the event this information is protected by the Federal Confidentiality of Alcohol and Drug Abuse Patient Records regulations: The Federal rules restrict any use of the information to criminally investigate or prosecute any alcohol or drug abuse patient.[facility]burgIn the event this information is protected by the Federal Confidentiality of Alcohol and Drug Abuse Patient Records regulations: The Federal rules restrict any use of the information to criminally investigate or prosecute any alcohol or drug abuse patient.[facility]burgIn the event this information is protected by the Federal Confidentiality of Alcohol and Drug Abuse Patient Records regulations: The Federal rules restrict any use of the information to criminally investigate or prosecute any alcohol or drug abuse patient.[facility]burgIn the event this information is protected by the Federal Confidentiality of Alcohol and Drug Abuse Patient Records regulations: The Federal rules restrict any use of the information to criminally investigate or prosecute any alcohol or drug abuse patient.[facility]burgIn the event this information is protected by the Federal Confidentiality of Alcohol and Drug Abuse Patient Records regulations: The Federal rules restrict any use of the information to criminally investigate or prosecute any alcohol or drug abuse patient.[facility]burgIn the event this information is protected by the Federal Confidentiality of Alcohol and Drug Abuse Patient Records regulations: The Federal rules restrict any use of the information to criminally investigate or prosecute any alcohol or drug abuse patient.[facility]burgIn the event this information is protected by the Federal Confidentiality of Alcohol and Drug Abuse Patient Records regulations: The Federal rules restrict any use of the information to criminally investigate or prosecute any alcohol or drug abuse patient.[facility]burgIn the event this information is protected by the Federal Confidentiality of Alcohol and Drug Abuse Patient Records regulations: The Federal rules restrict any use of the information to criminally investigate or prosecute any alcohol or drug abuse patient.[facility]burgIn the event this information is protected by the Federal Confidentiality of Alcohol and Drug Abuse Patient Records regulations: The Federal rules restrict any use of the information to criminally investigate or prosecute any alcohol or drug abuse patient.[facility]burgIn the event this information is protected by the Federal Confidentiality of Alcohol and Drug Abuse Patient Records regulations: The Federal rules restrict any use of the information to criminally investigate or prosecute any alcohol or drug abuse patient.[facility]burgIn the event this information is protected by the Federal Confidentiality of Alcohol and Drug Abuse Patient Records regulations: The Federal rules restrict any use of the information to criminally investigate or prosecute any alcohol or drug abuse patient.[facility]burgIn the event this information is protected by the Federal Confidentiality of Alcohol and Drug Abuse Patient Records regulations: The Federal rules restrict any use of the information to criminally investigate or prosecute any alcohol or drug abuse patient.[facility]burgIn the event this information is protected by the Federal Confidentiality of Alcohol and Drug Abuse Patient Records regulations: The Federal rules restrict any use of the information to criminally investigate or prosecute any alcohol or drug abuse patient.[facility]In the event this information is protected by the Federal Confidentiality of Alcohol and Drug Abuse Patient Records regulations: The Federal rules restrict any use of the information to criminally investigate or prosecute any alcohol or drug abuse patient.[facility]burgIn the event this information is protected by the Federal Confidentiality of Alcohol and Drug Abuse Patient Records regulations: The Federal rules restrict any use of the information to criminally investigate or prosecute any alcohol or drug abuse patient.[facility]burgIn the event this information is protected by the Federal Confidentiality of Alcohol and Drug Abuse Patient Records regulations: The Federal rules restrict any use of the information to criminally investigate or prosecute any alcohol or drug abuse patient.[facility]burgIn the event this information is protected by the Federal Confidentiality of Alcohol and Drug Abuse Patient Records regulations: The Federal rules restrict any use of the information to criminally investigate or prosecute any alcohol or drug abuse patient.[facility]burgIn the event this information is protected by the Federal Confidentiality of Alcohol and Drug Abuse Patient Records regulations: The Federal rules restrict any use of the information to criminally investigate or prosecute any alcohol or drug abuse patient.[facility]burgIn the event this information is protected by the Federal Confidentiality of Alcohol and Drug Abuse Patient Records regulations: The Federal rules restrict any use of the information to criminally investigate or prosecute any alcohol or drug abuse patient.[facility]burgIn the event this information is protected by the Federal Confidentiality of Alcohol and Drug Abuse Patient Records regulations: The Federal rules restrict any use of the information to criminally investigate or prosecute any alcohol or drug abuse patient.[facility]burgIn the event this information is protected by the Federal Confidentiality of Alcohol and Drug Abuse Patient Records regulations: The Federal rules restrict any use of the information to criminally investigate or prosecute any alcohol or drug abuse patient.[facility]burgIn the event this information is protected by the Federal Confidentiality of Alcohol and Drug Abuse Patient Records regulations: The Federal rules restrict any use of the information to criminally investigate or prosecute any alcohol or drug abuse patient.[facility]burgIn the event this information is protected by the Federal Confidentiality of Alcohol and Drug Abuse Patient Records regulations: The Federal rules restrict any use of the information to criminally investigate or prosecute any alcohol or drug abuse patient.[facility]burgIn the event this information is protected by the Federal Confidentiality of Alcohol and Drug Abuse Patient Records regulations: The Federal rules restrict any use of the information to criminally investigate or prosecute any alcohol or drug abuse patient.[facility]burgIn the event this information is protected by the Federal Confidentiality of Alcohol and Drug Abuse Patient Records regulations: The Federal rules restrict any use of the information to criminally investigate or prosecute any alcohol or drug abuse patient.[facility]burgIn the event this information is protected by the Federal Confidentiality of Alcohol and Drug Abuse Patient Records regulations: The Federal rules restrict any use of the information to criminally investigate or prosecute any alcohol or drug abuse patient.[facility] Care Teams (unrecognized sec tion and content) Gas Leak Inspector Helper Relationship Specialty Start Date End Date Ren Carlson MD [address] [place], [place] [id number] PCP - General 04 Gas Leak Inspector Helper Relationship Specialty Start Date End Date Ren Carlson MD [address] [facility] [place] [address] PCP - General 04 Gas Leak Inspector Helper Relationship Specialty Start Date End Date Rne Carlson MD [address] [facility] [place] [address] PCP - General 04 Gas Leak Inspector Helper Relationship Specialty [place] [address] [place] [address], [place] [address] PCP - General 04 Gas Leak Inspector Helper Relationship Specialty [place] [address] [place] [address], [place] [address] PCP - General 04 Gas Leak Inspector Helper Relationship Specialty [place] [address] [place] [address], [place] [address] PCP - General 04 Gas Leak Inspector Helper Relationship Specialty [place] [address] [place] [address], [place] [address] PCP - General 04 Gas Leak Inspector Helper Relationship Specialty Start Date End Date Ren Carlson MD [address] [facility] [place] [address] PCP - General 04 Gas Leak Inspector Helper Relationship Specialty Start Date End Date Ren Carlson MD [address] [facility] [place] [address] PCP - General 04 Gas Leak Inspector Helper Relationship Specialty [place] [address] [place] [address], [place] [address] PCP - General 04 Gas Leak Inspector Helper Relationship Specialty Start Date End Date Ren Carlson MD [address] [place] [address] PCP - General 04 Team Status: Active [...] August 16, 2024 End: August 17, 2024 Team Status: Active Member Role/Relationship Status Dates No Primary Care Physician Primary Care Provider Active Team Status: Inactive Member Role/Relationship Status Dates No Primary Care Physician Primary Care Provider Active Start: August 16, 2024 End: August 17, 2024 Dr. Blane Alfred MD Attending Provider Active S tart: August 16, 2024 End: August 17, 2024 Dr. Blane Alfred MD Emergency Provider Active S tart: August 16, 2024 End: August 17, 2024 Team Status: Inactive Member Role/Relationship Status Dates No Primary Care Physician Primary Care Provider Active Start: December 05, 2024 End: December 05, 2024 Dr. Blane Alfred MD Emergency Provider Active S tart: December 05, 2024 End: December 05, 2024 Reason for Visit (unrecogniz ed section and content) Reason Comments Physical Therapy Specialty Diagnoses / Procedures Referred By Contac t Referred To Contact [facility] Diagnoses S/P knee surgery Procedures CONSULT TO PHYSICAL THERAPY PHYSICAL THERAPY EVALUATION HIGH COMPLEX 45 MINS Mayda Solares DO [address] [place] [address] [facility] [address] [address] Referral ID Status Reason Start Date Expiration Date Visits Requested Visits Authorized [id number] Authorized Auto-Generat ed Referral 05/19/2023 05/18/2024 30 30 Reason Comments PT Progress Note Specialty Diagnoses / Procedures Referred By Contact Referred To Contact [facility] Diagnoses Patellar dislocation, left, subsequent encounter S/P orthopedic surgery, follow-up exam Procedures CONSULT TO PHYSICAL THERAPY PHYSICAL THERAPY EVALUATION HIGH COMPLEX 45 MINS THERAPEUTIC EXERCISES RE, EA 15 MIN. Otoniel Gates PA-C [address] [place] [address] [facility] [address] [address] Referral ID Status Reason Start Date Expiration Date Visits Requested Visits Authorized [id number] Authorized Auto-Generat ed Referral 12/26/2021 05/18/2022 99 99 Reason Comments New Knee Pain Swelling Reason Comments [facility] Specialty Diagnoses / Procedures Referred By Natasha t Referred To Contact [facility] Diagnoses Chronic pain of left knee Knee OCD Procedures MRI KNEE WO IVCON LT MRI ANY JT LOWER EXTREM W/O CONTRAST MATRL Mayda Solares DO [address] [place] [address] Mr Imaging Referral ID Status Reason Start Date Expiration Date V isits Requested Visits Authorized [id number] Closed Auto-Generate d Referral 09/28/2021 10/27/2021 1 [...] RE, EA 15 MIN. Otoniel Gates PA-C [address] [place] [address] [facility] [place] [address] Reason Comments Post Op 7 weeks 6 [...] Specialty Diagnoses / Procedures Referred By Natasha ubrch Referred To Contact [facility] Diagnoses S/P knee surgery Loose body in knee, left knee Procedures MRI KNEE WO IVCON LEFT MRI ANY JT LOWER EXTREM W/O CONTRAST MATRL Mayda Solares, [address] [facility] [address] [place] [address] [address] Referral ID Status Reason Start Date Expiration Date V isits Requested Visits Authorized [id number] Closed Auto-Generate d Referral 07/31/2023 11/20/2023 1 1 Reason Comments Nausea x 3 days, 7 weeks pr egnant Reason Comments Yearly Exam Contact lens evaluation Reason Comments Initial OB Visit Reason Comments PRAF Initial PRAF Reason Comments US Specialty Diagnoses / Procedures Referred By Natasha t Referred To Contact [facility] Diagnoses 12 weeks gestation of Procedures NUCHAL TRANSLUCENCY WHI US NUCHAL TRANSLUCENCY 1ST GESTATION Anitra Caldwell APR[address] [address] [place] [address] [facility] [place] [address] [place] [address] Referral ID Status Reason Start Date Expiration Date Visits Requested Visits Authorized [id number] New Request Auto-Generat ed Referral 11/28/2023 11/27/2024 1 1 Reason Onset Date Comments Care 11/28/2023 Reason Comments Nausea & Vomiting Reason Comments Nausea & Vomiting With 14 weeks pregna ncy Reason Onset Date Comments Care 12/23/2023 Reason Onset Date Comments Care 01/23/2024 Specialty Diagnoses / Procedures Referred By Contac t Referred To Contact [facility] Diagnoses Supervision of normal first teen in second trimester Procedures OBSTETRIC ULTRASOUND WHI US PREG UTERUS AFTER 1ST TRIMEST GESTATION Anitra Caldwell APRN.CN [address] [place] [address] [facility] [place] [address] [place] [address] Referral ID Status Reason Start Date Expiration Date V isits Requested Visits Authorized [id number] Closed Auto-Generate d Referral 11/28/2023 11/27/2024 1 1 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 Reason Comments ULTRASOUND Reason Onset Date Comments Refill Request 02/12/2024 Reason Onset Date Comments Care 02/25/2024 Reason Comments Centering Reason Comments Sore Throat Runny nose x 2 days Reason Comments Results Reason Onset Date Comments Care 03/16/2024 Reason Onset Date Comments Care 03/29/2024 Reason Onset Date Comments Care 04/21/2024 Specialty Diagnoses / Procedures Referred By Contac t Referred To Contact [facility] Diagnoses Low-lying placenta Supervision of normal first teen in second trimester Procedures OBSTETRIC ULTRASOUND WHI US PREG UTERUS AFTER 1ST TRIMEST GESTATION Anitra Caldwell APRN.ELIAZAR [address] [place] [address] [facility] [place] [address] [place] [address] Referral ID Status Reason Start Date Expiration Date V isits Requested Visits Authorized [id number] Closed Auto-Generate d Referral 01/26/2024 01/25/2025 1 [...] Referred By Natasha burch Referred To Contact [facility] Diagnoses Encounter for IUD insertion Procedures INSERT INTRAUTERINE DEVICE INSERT INTRAUTERINE DEVICE Leena Gaytan APRN.[facility] [address] [place] [address] Phone: tel: fax: [facility] [address] [place] [address] Referral ID Status Reason Start Date Expiration Date V isits Requested Visits Authorized [id number] Closed Auto-Generate d Referral 07/28/2024 07/28/2025 1 1 Reason Comments Vaginal Bleeding Goals (unrecognized section and content) Goals may be documented in a n alternate sectionGoals may be documented in an alternate section FOR RECORDS PERTAINING TO PATIENTS [...] BE BASED ON THE PRIMARY CLINICAL RECORDS. [facility]. provides no warranty or guarantee of the accuracy or completeness of information in this document.
[2024-12-07 23:15] VITALS: BP 130/96; PULSE 96; RESP 15; TEMP 36.6; O2SAT 97
== END 2024-12-07 23:15 | disposition home or self-care (01) ==
LOC: ED 23:10
PROVIDERS: Emergency Provider Emergency Medicine; Visit Provider Emergency Medicine
DX: S61.431A Puncture wound without foreign body of right hand, initial encounter (principal); M79.89 Other specified soft tissue disorders; F41.9 Anxiety disorder, unspecified; M79.641 Pain in right hand; W55.01XA Bitten by cat, initial encounter
CPT/HCPCS: 99282; 90715

== ENCOUNTER 2024-12-08 06:03 | Inpatient (IN) | payer OTHER, SELFPAY ==
[2024-12-08] VITALS (7 sets, daily range): BP systolic 97–120; BP diastolic 59–87; PULSE 52–89; RESP 16–20; TEMP 36.6–37.2; O2SAT 98–100; BMI 22.8
--- OUTSIDE RECORDS SUMMARY | 2024-12-08 06:27 | XMS RPT_ITS | CCD ---
Author Organization [facility] Care Team Providers Care Progressive Die Maker Name Role Phone Javi Thapa Unavailable Ren [...] er Dr. Blane Alfred MD Emergency Provider JAVI ANITRA Attending Unavailable CALDWELL, ANITRA Referring Unavailable CALDWELL, ANITRA Attending Unavailable CALDWELL, ANITRA Attending Unavailable LAXMI COLEMAN Attending Unavail able JAVI ANITRA Referring Unavailable PLOTTS, LEENA Attending Unavailable PLOTTSLEENA Attending Unavailable PLOTTSLEENA Attending Unavailable HAURY, ROBSON Referring Unavailable HAURY, [...] Physician, No Primary Primary Care Provider Unavailable Tmia WILKINSON, Dr. Arguelles Attending Provider [phone] Care Physician, No Primary Primary Care Unava ilable Vlad Jay Attending Unavailable Blane Alfred Attending Unavailable Care Physician, No Primary Primary Care Unava ilable Blane Alfred Attending Unavailable Care Physician, No Primary Primary Care Unava ilable Mirandaidre Admitting Unavail able Laxmi Simons Attending Unavail able Ronak Alxmi Referring Unavail able Care Physician, No Primary Primary Care Unava ilable Leena Gaytan Referring Unavailable Ren Carlson Primary Care Unavailable Leena Gaytan Attending Unavailable Dr. Vlad Jay DO Emergency Provider Allergies Allergy Classification Reported Allergen(s) Allergy Type Date of Onset Reaction(s) Facility Lactase (3 sources) Lactase Drug Allergy 1 Other: See Comments [facility] (20 sources) Lactase; Translations: [LACTASE] Drug Allergy 1 Other: See Comments [facility] (19 sources) Eucalyptus extract; Translations: [EUCALYPTUS] Drug Allergy [address] [facility] (1 source) Lactase Drug Allergy 5 [facility] Repository Medications Current Medications Medication Drug Class(es) Dates Sig (Normalized) Sig (Original) acetaminophen 325 mg / HYDROcodone bitartrate 5 mg oral tablet (7 sources) Opioid Agonist Start: 08-17-2024 take 1 [...] 12:37pm May 08, 2017 4:42pm causes drowsiness acetaminophen 325 mg / oxyCODONE hydrochloride 5 mg oral tablet (1 source) Opioid Agonist Start: 12-07-2024 take 1 tablet by mouth every six hours as needed for pain Oxycodone-Acetaminophen (Percocet) 5-325 mg tablet Active 1 {tbl} PO EVERY 6 HOURS as needed for pain 12 3 December 07, 2024 Cat bite Bitten by cat, initial encounter amoxicillin 875 mg / clavulanate 125 mg oral tablet (1 source) Penicillin-class Antibacterial Start: 12-07-2024 Amoxicillin-Pot Clavulanate 875-125 mg tablet Active 1 {tbl} PO TWICE A DAY 20 10 December 07, 2024 12:00am copper 313 mg drug implant (3 sources) Copper-containing Intrauterine Device Start: 11-15-2024 End: 11-13-2034 copper (PARAGARD) 380 square mm intrauterine device Indications: Encounter for IUD insertion 1 Intra Uterine Device by INTRAUTERINE route as directed. 1 each 11/15/2024 11/13/2034 Active docusate sodium 50 mg / sennosides, penitentiary 8.6 mg oral tablet (3 sources) Start: 05-27-2024 Sennosides-Docusate Sodium (Stimulant Laxative Plus) 8.6-50 mg Tablet Active 1 - 2 {tbl} PO DAILY NEEDED as needed for Constipation May 27, 2024 1:00am doxycycline hyclate 100 mg oral tablet (1 source) Tetracycline-clas s Drug Start: 10-21-2024 End: 10-28-2024 take 1 [...] ea three times daily for 5 days. Holley (Nk) (1 source) Start: 06-03-2023 Holley (Nk) Active June 03, 2023 12:00am pantoprazole 40 mg oral granules (13 sources) Proton Pump Inhibitor Start: 05-25-2024 take [...] () 28 mg iron- 800 mcg tablet (3 sources) Start: 03-21-2024 Pnv Cmb#95-Ferrous Fumarate-Fa () 28 mg iron- 800 mcg tablet Active 1 {tbl} PO DAILY March 21, 2024 12:00am proparacaine hydrochloride 5 mg/ml ophthalmic solution (1 source) Local Anesthetic Start: 08-02-2022 End: 08-02-2022 proparacaine 0.5 % 1 Drop (ALCAINE) sertraline 25 mg oral tablet (9 sources) Serotonin Reuptake Inhibitor Start: 06-25-2024 End: [...] Sig (Original) amoxicillin 500 mg oral capsule (12 sources) Penicillin-class Antibacterial Start: 02-02-2019 End: 02-13-2019 take 1 capsule by mouth twice daily Amoxicillin 500 mg capsule Discontinued 500 mg PO TWICE A DAY 20 10 0 February 02, 2019 12:00am February 11, 2019 12:00am February 13, 2019 12:09am Acute pharyngitis, unspecified Start: 08-28-2018 End: 09-07-2018 take 1 capsule by mouth twice daily Amoxicillin 500 mg capsule Discontinued 500 mg PO TWICE A DAY 20 10 0 August 28, 2018 12:00am September 06, 2018 12:00am September 07, 2018 12:09am Start: 03-20-2017 AMOXICILLIN 50 0 MG CAPS 1 capsule 3 times a day AMOXICILLIN [id number] Javi WEAVER Start: 08-12-2016 End: 08-22-2016 AMOXICILLIN 500 MG TABS Take 1 tablet twice daily. AMOXICILLIN [id number] Luis WEAVER aspirin 81 mg oral tablet [...] hydrochloride 0.137 mg/actuat metered dose nasal spray (3 sources) Histamine-1 Receptor Antagonist Start: 03-21-2024 End: 05-25-2024 Azelastine 137 mcg (0.1 %) spray,non-aerosol Discontinued 2 NMA INTRANASAL TWICE A DAY March 21, 2024 12:00am May 25, 2024 11:59am administer into each nostril azithromycin 250 mg oral tablet (3 sources) Macrolide Antimicrobial Start: 03-21-2024 End: 05-25-2024 Azithromycin (Zithromax Z-Xu) 250 mg tablet Discontinued 0 PO .COMPLEX 6 0 March 21, 2024 12:00am May 25, 2024 11:59am For 250 mg dose pack: take 500 mg today (day 1), then 250 mg for 4 days (days 2-5) benzonatate 200 mg oral capsule (7 sources) Non-narcotic Antitussive Start: 03-21-2024 End: 05-25-2024 take 1 capsule by mouth three times daily as needed for cough Benzonatate 200 mg capsule Discontinued 200 mg PO THREE TIMES A DAY as needed for cough 15 5 0 March 21, 2024 12:00am May 25, 2024 11:59am Start: 05-08-2017 End: 07-12-2019 take 1 capsule by mouth three times daily as needed for cough Benzonatate 100 mg capsule Discontinued 100 mg PO THREE TIMES A DAY as needed for cough 20 0 May 08, 2017 1:00am July 12, 2019 6:15pm ibuprofen 600 mg oral tablet (4 sources) Nonsteroidal Anti-inflammatory Drug Start: 06-01-2020 End: 06-26-2020 take 1 tablet by mouth four times daily Ibuprofen 600 MG tablet Discontinued 600 mg PO 4 TIMES DAILY 30 0 June 01, 2020 1:00am June 26, 2020 [...] as needed. meloxicam 7.5 mg oral tablet (18 sources) Nonsteroidal Anti-inflammatory Drug Start: 07-31-2020 End: 06-03-2023 take 1 tablet by mouth once daily Meloxicam 7.5 mg tablet Discontinued 7.5 mg PO DAILY 08 06July 31, 2020 12:00am June 03, 2023 1:44am [...] Serotonin-3 Receptor Antagonist Start: 03-21-20 End: 05-27-19 take 1 tablet by mouth three times daily as needed for nausea and vomiting Ondansetron 4 mg tablet,disintegrating Discontinued 4 mg PO THREE TIMES A DAY as needed for nausea and vomiting March 21, 2024 4:15am May 27, 2024 8:15am Start: 11-05-2023 End: 03-19-2024 take 1 tablet by mouth every eight hours as needed for nausea Ondansetron 4 mg tablet,disintegrating Discontinued 4 mg PO EVERY 8 HOURS NEEDED as needed for Nausea November 05, 2023 12:00am March 13, 2024 8:45am phenylephrine hydrochloride 25 mg/ml ophthalmic solution (1 source) alpha-1 Adrenergic Agonist Start: 08-02-2022 End: 08-02-2022 PHENYLephrine 2.5 % 1 Drop (AK-DILATE, TYRELL-SYNEPHRINE) predniSONE 20 mg oral tablet (6 sources) Start: 03-21-2024 End: 05-25-2024 take 1 tablet by mouth once daily Prednisone 20 mg tablet Discontinued 20 mg PO DAILY 5 5 0 March 21, 2024 12:00am May 25, 2024 [...] tab daily for 3 days with food. Nhcoobwv-Hn-Dug-Fe- FA tab (20 sources) Start: 11-14-2023 End: 11-15-2024 take 1 tablet by mouth once daily Ufrcuusk-Hq-Vjf-Fe-FA tab Take 1 tablet by mouth once daily. With folic acid and DHA as covered by insurance. 30 tablet 11 11/14/2023 11/15/2024 Discontinued (Discontinued by Patient) Start: 11-14-2023 take 1 tablet by james th once daily Htwrfaqw-Et-Pzw-Fe-FA tab Take 1 tablet by mouth once [...] Problem Date Documented Date Episodic/Chronic Abdominal pain (4 sources) Abdominal pain; Translations: [Unspecified abdominal pain] Onset: 08-23-2024 08-17-2024 Episodic Anxiety disorders (20 sources) Generalized anxiety disorder; Translations: [Generalized anxiety disorder] Onset: 11-14-2023 11-14-2023 Chronic Blindness and vision defects (2 sources) Bilateral myopia of eyes; Translations: [Myopia, bilateral] Episodic Calculus of urinary tract (3 sources) Kidney stone; Translations: [Calculus of kidney] 08-17-2024 Episodic Chronic obstructive pulmonary disease and bronchiectasis (6 sources) Bronchitis; Translations: [Bronchitis, not specified as acute or chronic] Onset: 03-20-2017 03-20-2017 Episodic Conditions associated with dizziness or vertigo (1 source) Dizziness; Translations: [Dizziness and giddiness] 11-05-2023 Episodic Contraceptive and procreative management (1 source) Encounter for insertion of intrauterine contraceptive device; Translations: [Encounter for IUD insertion] Onset: 11-15-2024 Episodic E Codes: Natural/environment (2 sources) Cat bite - wound; Translations: [Bitten by cat, initial encounter] Episodic Immunizations and screening for infectious disease (13 sources) Patient encounter status; Translations: [Encounter for screening for COVID-19] Onset: 03-16-2024 06-07-2021 Episodic Inflammatory diseases of female pelvic organs (1 source) Acute vaginitis; Translations: [Acute vaginitis] 11-14-2023 Episodic Joint disorders and dislocations; trauma-related (7 sources) 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; Translations: [Loose body in knee, left knee] Chronic Joint disorders and dislocations; trauma-related (20 sources) Dislocation of patellofemoral joint; Translations: [Unspecified dislocation of left patella, subsequent encounter] Onset: 02-04-2022 Resolved: 12-02-2023 Episodic Mood disorders (4 sources) Depressive disorder; Translations: [Depression] 06-03-2023 Chronic Nausea and vomiting (7 sources) Nausea; Translations: [Nausea] 08-27-2023 Episodic OB-related trauma to perineum and vulva (1 [...] third trimester] 05-11-2024 Episodic Other complications of (3 sources) Reduced movement; Translations: [Decreased movements, unspecified trimester, not applicable or unspecified] 03-13-2024 Episodic Other female genital disorders (2 sources) Abnormal vaginal bleeding; Translations: [Abnormal uterine and vaginal bleeding, unspecified] 12-05-2024 Chronic Other lower respiratory disease (4 sources) Cough; Translations: [Cough] 06-07-2021 Episodic Other lower respiratory disease (2 sources) Cough; Translations: [Acute cough] 10-21-2024 Episodic Other non-traumatic joint disorders (20 sources) Pain in left knee; Translations: [Pain in joint, lower leg] Onset: 02-22-2020 Episodic Other non-traumatic joint disorders (4 sources) Pain in unspecified knee; Translations: [Pain in joint, lower leg] Episodic Other non-traumatic joint disorders (4 sources) Instability of left patellofemoral joint; Translations: [Other instability, left knee] Episodic Other and delivery including normal (20 sources) with uncertain dates; Translations: [Encounter for supervision of normal , unspecified, unspecified trimester] Onset: 11-14-2023 11-14-2023 Episodic Other screening for suspected conditions (not [...] 10-21-2024 10-21-2024 Chronic Other upper respiratory infections (19 sources) Pharyngitis; Translations: [Streptococcal sore throat] Onset: 08-12-2016 03-20-2017 Episodic Poisoning by other medications and drugs (4 sources) Accidental acetaminophen overdose; Translations: [Poisoning by [...] of ] 05-18-2024 Episodic Residual codes; unclassified (3 sources) Gestation period, 27 weeks; Translations: [27 weeks gestation of ] 03-13-2024 Episodic Residual codes; unclassified (4 sources) Gestation period, 37 weeks; Translations: [37 weeks gestation of ] 06-04-2024 Episodic Screening and history of mental health and substance abuse codes (20 sources) H/O: depression; Translations: [Personal history of other mental and behavioral disorders] Onset: 11-14-2023 11-14-2023 Episodic Sprains and strains (8 sources) Sprain of knee; Translations: [Sprain of [...] foot] Onset: 01-14-2019 01-14-2019 Episodic Anxiety disorders (11 sources) Anxiety disorder due to a general [...] trimester] Onset: 01-26-2024 Resolved: 04-21-2024 01-26-2024 Episodic Miscellaneous mental health disorders (15 sources) depression; Translations: [ depression] Onset: 06-24-2024 06-24-2024 Episodic Other aftercare (20 sources) Surgical follow-up; [...] 02-25-2024 Episodic Other complications of (1 source) Uterine [...] in second trimester] Onset: 02-25-2024 Episodic Other complications of (1 source) Diseases of the respiratory system complicating , third trimester; Translations: [Diseases of the respiratory system complicating , third trimester] Onset: 04-12-2024 Episodic Other complications of (1 source) Decreased movements, second trimester, not applicable or unspecified; Translations: [Decreased movements, second trimester, not applicable or unspecified] Onset: 06-01-2024 Episodic Other connective tissue disease (20 sources) [...] Onset: 06-10-2017 Resolved: 11-25-2019 11-25-2019 Episodic Other upper respiratory disease (2 sources) [...] weeks gestation of ] Onset: 12-23-2023 Episodic Results Test Name Value Interpretation Reference Range Facility CBC-Complete Blood Cnt No Di ffon 12-05-2024 Erythrocyte distribution width (RBC) [Ratio] 13.4 % Normal 11.6-14.6 [facility] Comment on above: Performed By: #### L 700.6800, L100.0500 #### [facility] [address] [place], [address] Hematocrit (Bld) [Volume fraction] 33.9 % Low 37-47 [facility] Comment on above: Performed By: #### L 700.6800, L100.0500 #### [facility] [address] [place], [address] Hemoglobin (Bld) [Mass/Vol] 12.0 g/dL Normal 12.0-15.0 [facility] Comment on above: Performed By: #### L 700.6800, L100.0500 #### [facility] [address] [place], [address] MCH (RBC) [Entitic mass] 29.4 pg Normal 27.0-32.0 [facility] Comment on above: Performed By: #### L 700.6800, L100.0500 #### [facility] [address] [place], [address] MCHC (RBC) [Mass/Vol] 35.4 g/dL Normal 32-36 [facility] Comment on above: Performed By: #### L 700.6800, L100.0500 #### [facility] [address] [place], [address] MCV (RBC) [Entitic vol] 83.1 fL Normal 81-99 [facility] Comment on above: Performed By: #### L 700.6800, L100.0500 #### [facility] [address] [place], [address] Platelet mean volume (Bld) [Entitic vol] 11.1 fL Normal 6.2-12.0 [facility] Comment on above: Performed By: #### L 700.6800, L100.0500 #### [facility] [address] [place], [address] Platelets (Bld) [#/Vol] 148 10*3/uL Low 150-450 [facility] Comment on above: Performed By: #### L 700.6800, L100.0500 #### [facility] [address] [place], [address] RBC (Bld) [#/Vol] 4.08 10*6/uL Low 4.2-5.4 [facility] Comment on above: Performed By: #### L 700.6800, L100.0500 #### [facility] [address] [place], [address] RDW SD 40.3 fl Normal 35.1-43.9 [facility] Comment on above: Performed By: #### L 700.6800, L100.0500 #### [facility] [address] [place], [address] WBC (Bld) [#/Vol] 3.3 10*3/uL Low 4.4-11.0 [facility] Comment on above: Performed By: #### L 700.6800, L100.0500 #### [facility] [address] [place] [place], [address] Emergency Department Summary on 12-05-2024 Emergency Department Summary [facility] Medical Records Department [address] [place] [address] Emergency Department Summary 12/05/24 MR#: [id number] Acct: [id number] Name: BEATRIS FLETCHER Rep #: [id number] : 2005 19 From: Blane Alfred MD PCP: Care Physician,No Primary Status:DEP ER Location: ED HPI HPI - Female History of Present Illness Chief Complaint: Vag Bleeding Informant: patient Pain Pain: Positive for Pelvic Pain Onset: Days Context: Gradual Onset Timing: Intermittent Quality: Positive for Cramping Current Severity: Mild Maximum Severity: Mild Bleeding Issue: Positive for Vaginal bleeding Onset: Days Context: Gradual Onset Timing: Continuous Current Severity: Similar to period Associated Symptoms Sexually: Positive for Active Control: IUD P: 1 Ab: 0 Narrative Narrative: 19-year-old female G1, P1 Ab0. An IUD placed a couple weeks ago. She is on her most recent menstrual period for the last 3 to 4 days. She has had heavier bleeding and cramping. Denies any dysuria. No discharge. No prior RICE DRIER OPERATOR surgery. No prior IUD history. Prior similar symptoms: No Recent Illness/Hospitalization : No PFSH PFSH Medical [...] (From [facility]) Allergy Mild Abdominal Verified 12/05/24 10:40 cramping Family History Grandfather Leukemia DVT (deep venous thrombosis) Grandmother Breast cancer Grandmother Diabetes Heart disease Lung cancer Surgical History History of surgery History of removal of cyst H/O tooth extraction Social History Smoking Status: Never smoker alcohol intake: never what type of physical activity do you participate in: additional details: gym, sports seatbelt use: always ROS ROS ED ROS Narrative Vaginal bleeding pelvic cramping. Constitutional Constitutional ED: Denies chills or fever(s) Eyes Eyes: Denies blurry vision ENT ENT ED: Denies ear pain Cardiovascular Cardiovascular: Denies chest pain Respiratory/Chest Respiratory/Chest: Denies cough or dyspnea Gastrointestinal Gastrointestinal: Denies abdominal pain Genitourinary Genitourinary ED: Denies dysuria or hematuria Musculoskeletal Musculoskeletal: Denies arthralgias Integumentary Denies abscess Neurologic Neurologic: Denies headache(s) Psychiatric Psychiatric: Denies anxiety or depression Endocrine Endocrinology: Denies heat intolerance Hematologic/Lymphatic Hematologic/Lymphatic: Denies easy bleeding Allergic/Immunologic Allergic/Immunologic ED: Denies mouth swelling EXAM Physical Exam Narrative Exam Narrative: 19-year-old female no acute distress significant other sitting at bedside. Vital signs are stable afebrile. H EENT exam pupils round reactive light. Moist mucous membranes. Lungs clear to auscultation bilaterally. Heart regular rhythm rate about 80 no murmur. Abdomen is soft, nontender nondistended normal bowel sounds without peritoneal signs. She has no tenderness. Moving all 4 extremities. Nontender no edema. Normal strength and range of motion. Back nontender. Neurologically she is awake alert. Answering questions following commands. No focal motor deficits. Const Vital Signs: 12/05/24 10:40 Temperature 98 F Temperature Source Temporal Pulse Rate 82 Respiratory Rate 14 Blood Pressure 115/76 Blood Pressure Mean 89 Pulse Ox 98 Oxygen Delivery Method Room Air Positive well nourished and well developed; Negative for obese, cachectic, contractures or unkempt General Appearance ED: well developed; Negative for unkempt, cachectic or contractures Nutritional Appearance: Negative for cachectic or obese HEENT Reports moist mucous membranes Eyes PERRL and EOMs intact bilaterally Neck no lymphadenopathy, supple and no JVD Chest Wall inspection of chest normal and palpation of chest normal Resp normal respiratory effort (more content not included)... Normal [facility] Erythrocyte distribution wid th ratioOrdered By: Blane Alfred on 12-05-2024 Erythrocyte distribution width (RBC) [Ratio] 13.4 % 11.6-14.6 [facility] Erythrocyte distribution wid th standard deviationOrdered By: Blane Alfred on 12-05-2024 Erythrocyte distribution width (RBC) [Ratio] 40.3 fl 35.1-43.9 [facility] Hematocrit Auto (Bld) [Volum e fraction]Ordered By: Blane Alfred on 12-05-2024 Hematocrit (Bld) [Volume fraction] 33.9 % Low 37-47 [facility] Hemoglobin measurementOrdere d By: Blane Alfred on 12-05-2024 Hemoglobin (Bld) [Mass/Vol] 12.0 g/dL 12.0-15.0 [facility] MCV (mean corpuscular volume ) determinationOrdered By: Blane Alfred on 12-05-2024 MCV (RBC) [Entitic vol] 83.1 fL 81-99 [facility] Mean corpuscular hemoglobin (MCH) determinationOrdered By: Blane Alfred on 12-05-2024 MCH (RBC) [Entitic mass] 29.4 pg 27.0-32.0 [facility] Mean corpuscular hemoglobin concentration (MCHC) determinationOrdered By: Blane Alfred on 12-05-2024 MCHC (RBC) [Mass/Vol] 35.4 g/dL 32-36 [facility] Mean platelet volume determi nationOrdered By: Blane Alfred on 12-05-2024 Platelet mean volume (Bld) [Entitic vol] 11.1 fL 6.2-12.0 [facility] Platelet countOrdered By: Román Alfred on 12-05-2024 Platelets (Bld) [#/Vol] 148 10*3/uL Low 150-450 [facility] ,Serum,hCG Quali.on 12-05-2024 HCG, SERUM QUAL Negative Normal [facility] Comment on above: Performed By: #### L 700.6800, L100.0500 #### [facility] [address] [place] [address], [address] RBC Auto (Bld) [#/Vol]Ordere d By: Blane Alfred on 12-05-2024 RBC (Bld) [#/Vol] 4.08 10*6/uL Low 4.2-5.4 [facility] Serum beta-hCG test, qualita tiveOrdered By: Blane Alfred on 12-05-2024 Beta HCG ( test) Ql Negative [facility] White blood cell (WBC) count Ordered By: Blane Alfred on 12-05-2024 WBC (Bld) [#/Vol] 3.3 10*3/uL Low 4.4-11.0 [facility] CNOVon 11-15-2024 CNOV Office Visit (OBGYWM ) FLETCHERBEATRIS ([id number]) 3 F Date Time Provider Department 11/15/24 4:00 PM LEENA GAYTAN OBGYWM During your visit today, we recorded the following information about you: Blood pressure Weight Last Period 108/76 59.4 kg 10/25/24 Leena Gaytan APRN.CNM 11/15/2024 5:11 PM Signed Beatris presents today for IUD insertion for [...] IUD source: office provided IUD lot #: [id number] Exp date: 12/15/2026 UNIVERSAL PROTOCOL / SAFETY [...] next menses for string check. Leena Gaytan APRN.KM Roro Sanz MA 11/15/2024 3:59 PM Signed POST IUD [...] contact the office. Referring Provider: LEENA GAYTAN [[id number]] Allergies As of Date: 11/15/2024 Noted Allergy Reaction EUCALYPTUS 05/05/2024 2 - Rash Comments: Chemical burn LACTASE 06/26/2020 14 - Other: See Comments Date Reviewed: 11/15/2024 Reviewed by: Roro Sanz MA - Fully Assessed Reason for Visit: Insertion Of IUD [291] Primary Visit Diagnosis:Encounter for IUD insertion [Z30.430] Order(s):UA DIP,URINE HCG (POC) [5864827] Order #: [id number] [] copper intrauterine device 380 square mm [...] normal first (more content not included)... Normal [facility] CNOVon 10-21-2024 CNOV Office Visit (UCWSTR ) BEATRIS FLETCHER ([id number]) 3 F Date Time Provider Department 10/21/24 5:15 PM ZHANNA HAZEL [facility] During your visit today, we recorded the following information about you: Temperature Pulse Respiration Blood pressure 97 degrees 78/minute 18/minute 101/68 Weight Last Period 63 kg 10/10/24 Zhanna Hazel APRN.TELEVISION EQUIPMENT OPERATOR 10/21/2024 5:54 PM Signed [facility] Subjective Beatrisniels Fletcher is a 19 year old female. [...] history is provided by the patient. No pipe joints supervisor was used. Cough Review of Systems Constitutional: [...] Take 1 tablet by mouth once daily. Ihugxbyx-Jf-Obe-Fe-FA tab Take 1 tablet by mouth once [...] Unremarkable. IMPRESSION IMPRESSION: No acute radiographic abnormality. Sexual Assault Counsellor: CHAPARRITA Transcribe Date/Time: Oct 21 2024 5:46P [...] Patient agreeable to care plan. Zhanna Hazel APRN.TELEVISION EQUIPMENT OPERATOR MDM Procedures Allergies As of Date: 10/21/2024 Noted Allergy Reaction EUCALYPTUS 05/05/2024 2 - Rash Comments: Chemical burn LACTASE 06/26/2020 14 - Other: See Comments Date Reviewed: 10/21/2024 Reviewed by: Jessy Alicea LPN - Fully Assessed Reason for Visit: Cough [28] Cmt: Chest congestion, nasal congestion, SOB, increased mucous, runny (more content not included)... Normal [facility] XR CHEST 2V FRONTAL/LATon XR CHEST 2V [...] tissues: Unremarkable. IMPRESSION: No acute radiographic abnormality. Sexual Assault Counsellor: [facility] Transcribe Date/Time: Oct 21 2024 5:46P Dictated by : DANAE BAR MD This examination was interpreted and the report reviewed and electronically signed by: DANAE BAR MD on Oct 21 2024 5:46PM EST [id number] Normal [facility] XR Chest PA and Lateralon IMPRESSION: No acute radiographic abnormality. Sexual Assault Counsellor: [facility] Transcribe Date/Time: Oct 21 2024 5:46P [...] soft tissues: Unremarkable. DIVISION OF RADIOLOGY Provider, [facility] * * [...] Unremarkable. IMPRESSION IMPRESSION: No acute radiographic abnormality. Sexual Assault Counsellor: CHAP[facility]ITA Transcribe Date/Time: Oct 21 2024 5:46P Dictated by : DANAE BAR MD This examination was interpreted and the report reviewed and electronically signed by: DANAE BAR MD on Oct 21 2024 5:46PM EST [facility] Radiology Study observation (narrative) [facility] XR Chest PA and LateralOrder ed By: Ccf Provider on 10-21-[address] 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 She was unable to link to [employer] [...] Has had occasional crying spells. States her is good and is sleeping through the [...] MODALITIES: Solution Focused Psychotherapy PROGRESS TO DATE: Senior Living Progress: Condition at intake Short Term Condition: Progress GOALS/OBJECTIVES/INTERV ENTIONS: Treatment plan: discussed asking OBGYN to send last refill to a different pharmacy Recommended M-IOP and she is interested Consult to Psychiatry placed Phone numbers were sent via [employer] She was advised of my BERT, though I will be available to her for the next month. Suicide protocol sent via [employer] Approximately 45 minutes were spent with the patient doing therapy. RADHA Fuentes Referring Provider: NATALIIA VAIL [[id number]] Allergies As of Date: 09/17/2024 Noted Allergy Reaction EUCALYPTUS 05/05/2024 2 - Rash Comments: Chemical burn LACTASE 06/26/2020 14 - Other: See Comments Date Reviewed: 07/28/2024 Reviewed by: Deloris Peña LPN - Fully Assessed Primary Visit Diagnosis:MDD (major depressive disorder), recurrent episode, moderate (HCC) [F33.1] Other Visit Diagnoses:Mixed obsessional thoughts and acts [F42.2] Panic disorder without agoraphobia [F41.0] Order(s):PROVIDER ORDERED FOLLOW UP [[id number]] Order #: [id number]: 1 Prescriptions as of 09/17/2024 - sertraline (ZOLOFT) 25 mg tablet Take 1 tablet by mouth once daily. - [id number] tab Take 1 tablet by mouth once [...] Status:Closed by NATALIIA VAIL on 09/17/24 Normal [facility] Abdomen/Pelvis W IV Cont ONL Yon 08-17-2024 Abdomen/Pelvis W IV Cont ONLY [facility] Imaging Services [address], [place] [address] Abdomen/Pelvis W IV Cont ONLY MR#: [id number] Acct: [id number] Name: BEATRIS FLETCHER Rep #: [id number] : 2005 F 19 From: Basilio Jasso MD PCP: Care Physician,No Primary Status: REG ER Study: Abdomen/Pelvis W IV Cont ONLY Date of Exam: Exam# [id number] Ordering Dr: Blane Alfred MD PROCEDURE: ABDOMEN/PELVIS [...] stranding or urothelial thickening seen. Reading Location: [facility] CC: Dr. Blane Alfred MD; No Primary Care Physician Sexual Assault Counsellor: Signed Normal [facility] Absolute lymphocyte countOrd ered By: Blane Alfred on 08-17-2024 Lymphocytes Auto (Unsp spec) [#/Vol] 2.97 10*3/uL 0.83-4.51 [facility] Absolute neutrophil countOrd ered By: Blane Alfred on 08-17-2024 Neutrophils (Bld) [#/Vol] 2.9 10*3/uL 2.0-7.7 [facility] Anion gap in Serum or Plasma Ordered By: Blane Alfred on 08-17-2024 Anion gap [Moles/Vol] 14 mmol/L 5-15 [facility] Automated lymphocyte count a s percentage of total leukocytesOrdered By: Blane Alfred on 08-17-2024 Lymphocytes/100 WBC Auto (Unsp spec) 45.9 % High 19-41 [facility] BUN/creatinine ratioOrdered By: Blane Alfred on 08-17-2024 Urea nitrogen/Creatinine [Mass ratio] 16.6 mg/mg 10-20 [facility] Basophil percentageOrdered B y: Blane Alfred on 08-17-2024 Basophils/100 WBC (Bld) 0.3 % 0-1 [facility] Beta HCG ( test) Ql Ordered By: Blane Alfred on 08-17-2024 Serum Test, Qualitative Negative [facility] Bilirubin Test strip Ql (U)O rdered By: Blane Alfred on 08-17-2024 Bilirubin Ql (U) Negative Negative [facility] Bilirubin, totalOrdered By: Blane Alfred on 08-17-2024 Bilirubin [Mass/Vol] 0.72 mg/dL 0.00-1.30 [facility] CBC W/Diff, Automatedon 04- Absolute Lymph 2.97 X10 3/uL Normal 0.83-4.51 [facility] Comment on above: Performed By: #### L 400.0001 #### [facility] [address] [place], [address] Absolute Neut 2.9 X10 3/uL Normal 2.0-7.7 [facility] Comment on above: Performed By: #### L 400.0001 #### [facility] [address] [place], [address] Basophils/100 WBC (Bld) 0.3 % Normal 0-1 [facility] Comment on above: Performed By: #### L 400.0001 #### [facility] [address] [place], [address] Eosinophils/100 WBC (Bld) 1.7 % Normal 0-5 [facility] Comment on above: Performed By: #### L 400.0001 #### [facility] [address] [place], [address] Erythrocyte distribution width (RBC) [Ratio] 12.5 % Normal 11.6-14.6 [facility] Comment on above: Performed By: #### L 400.0001 #### [facility] [address] [place], [address] Hematocrit (Bld) [Volume fraction] 36.6 % Low 37-47 [facility] Comment on above: Performed By: #### L 400.0001 #### [facility] [address] [place], [address] Hemoglobin (Bld) [Mass/Vol] 12.9 g/dL Normal 12.0-15.0 [facility] Comment on above: Performed By: #### L 400.0001 #### [facility] [address] [place], [address] IG% 0.300 Normal 0.0-0.9 [facility] Comment on above: Result Comment: IG% - Immature Granulocytes (promyelocytes, myelocytes and metamyelocytes) > 1% indicates that a LEFT SHIFT is Present. Performed By: #### L 400.0001 #### [facility] [address] [place], [address] Lymphocytes/100 WBC (Bld) 45.9 % High 19-41 [facility] Comment on above: Performed By: #### L 400.0001 #### [facility] [address] [place], [address] MCH (RBC) [Entitic mass] 28.5 pg Normal 27.0-32.0 [facility] Comment on above: Performed By: #### L 400.0001 #### [facility] [address] [place], [address] MCHC (RBC) [Mass/Vol] 35.2 g/dL Normal 32-36 [facility] Comment on above: Performed By: #### L 400.0001 #### [facility] [address] [place], [address] MCV (RBC) [Entitic vol] 81.0 fL Normal 81-99 [facility] Comment on above: Performed By: #### L 400.0001 #### [facility] [address] [place], [address] Monocytes/100 WBC (Bld) 6.6 % Normal 0-10 [facility] Comment on above: Performed By: #### L 400.0001 #### [facility] [address] [place], [address] Neutrophils/100 WBC (Bld) 45.2 % Low 47-70 [facility] Comment on above: Performed By: #### L 400.0001 #### [facility] [address] [place], [address] Nucleated RBC (Bld) [#/Vol] 0 10*3/uL Normal 0-5 [facility] Comment on above: Performed By: #### L 400.0001 #### [facility] [address] [place], [address] Platelet mean volume (Bld) [Entitic vol] 11.4 fL Normal 6.2-12.0 [facility] Comment on above: Performed By: #### L 400.0001 #### [facility] [address] [place], [address] Platelets (Bld) [#/Vol] 186 10*3/uL Normal 150-450 [facility] Comment on above: Performed By: #### L 400.0001 #### [facility] [address] [place], [address] RBC (Bld) [#/Vol] 4.52 10*6/uL Normal 4.2-5.4 [facility] Comment on above: Performed By: #### L 400.0001 #### [facility] [address] [place], [address] RDW SD 36.1 fl Normal 35.1-43.9 [facility] Comment on above: Performed By: #### L 400.0001 #### [facility] [address] [place], [address] WBC (Bld) [#/Vol] 6.5 10*3/uL Normal 4.4-11.0 [facility] Comment on above: Performed By: #### L 400.0001 #### [facility] [address] [place], [address] Carbon dioxide, total [Moles /volume] in Central venous bloodOrdered By: Blane Alfred on 08-17-2024 CO2 [Moles/Vol] 22.0 mmol/L 21.0-32.0 [facility] Chloride assayOrdered By: Román Alfred on 08-17-2024 Chloride [Moles/Vol] 104 mmol/L 98-108 [facility] Comprehensive Metabolic Prof ilon 08-17-2024 Albumin [Mass/Vol] 4.6 g/dL Normal 3.5-5.0 [facility] Comment on above: Performed By: #### L 400.0001 #### [facility] [address] [place], [address] Albumin/Globulin [Mass ratio] 1.7 {ratio} Normal 0.9-2.4 [facility] Comment on above: Performed By: #### L 400.0001 #### [facility] [address] [place], [address] ALK PHOS 57 U/L Normal 35-104 [facility] Comment on above: Performed By: #### L 400.0001 #### [facility] [address] [place], [address] ALT [Catalytic activity/Vol] 39 U/L High <=34 [facility] Comment on above: Performed By: #### L 400.0001 #### [facility] [address] [place], [address] AST [Catalytic activity/Vol] 29 U/L Normal <=31 [facility] Comment on above: Performed By: #### L 400.0001 #### [facility] [address] [place], [address] Bilirubin [Mass/Vol] 0.72 mg/dL Normal 0.00-1.30 [facility] Comment on above: Performed By: #### L 400.0001 #### [facility] [address] [place], [address] BUN/CRE 16.6 RATIO Normal 10-20 [facility] Comment on above: Performed By: #### L 400.0001 #### [facility] [address] [place], [address] Calcium [Mass/Vol] 9.2 mg/dL Normal 7.6-11.0 [facility] Comment on above: Performed By: #### L 400.0001 #### [facility] [address] [place], [address] Chloride [Moles/Vol] 104 mmol/L Normal 98-108 [facility] Comment on above: Performed By: #### L 400.0001 #### [facility] [address] [place], [address] CO2 [Moles/Vol] 22.0 mmol/L Normal 21.0-32.0 [facility] Comment on above: Performed By: #### L 400.0001 #### [facility] [address] [place], [address] Creatinine [Mass/Vol] 0.99 mg/dL Normal 0.70-1.20 [facility] Comment on above: Performed By: #### L 400.0001 #### [facility] [address] [place], [address] ECRCL 88.92 ml/min Normal 50-250 [facility] Comment on above: Performed By: #### L 400.0001 #### [facility] [address] [place], [address] GAP 14 Normal 5-15 [facility] Comment on above: Performed By: #### L 400.0001 #### [facility] [address] [place], [address] GFR/1.73 sq M.predicted among non-blacks MDRD (S/P/Bld) [Vol rate/Area] 84 mL/min/{1.73_m2} Normal >60 [facility] Comment on above: Result Comment: mL/m in/1.73m2 CKD-EPI Creatinine Equation (2020) Performed By: #### L 400.0001 #### [facility] [address] [place], [address] Globulin (S) [Mass/Vol] 2.8 g/dL Normal 2.2-4.2 [facility] Comment on above: Performed By: #### L 400.0001 #### [facility] [address] [place], [address] Glucose [Mass/Vol] 122 mg/dL High 70-99 [facility] Comment on above: Performed By: #### L 400.0001 #### [facility] [address] [place], [address] Potassium [Moles/Vol] 3.4 mmol/L Normal 3.3-5.1 [facility] Comment on above: Performed By: #### L 400.0001 #### [facility] [address] [place], [address] Sodium [Moles/Vol] 140 mmol/L Normal 133-145 [facility] Comment on above: Performed By: #### L 400.0001 #### [facility] [address] [place], [address] T PROT 7.3 g/dL Normal 5.9-8.4 [facility] Comment on above: Performed By: #### L 400.0001 #### [facility] [address] [place], [address] Urea nitrogen [Mass/Vol] 16 mg/dL Normal 4-19 [facility] Comment on above: Performed By: #### L 400.0001 #### [facility] [address] [place], [address] Emergency Department Summary on 08-17-2024 Emergency Department Summary [facility] Medical Records Department [address] [place] [address] Emergency Department Summary 08/17/24 MR#: [id number] Acct: [id number] Name: BEATRIS FLETCHER Rep #: [id number] : 2005 19 From: Blane Alfred MD [...] similar symptoms: Yes Recent Illness/Hospitalization : No [facility] Medical History Anxiety Encounter for screening for [...] 100 98 (more content not included)... Normal [facility] Eosinophil percentageOrdered By: Blane Alfred on 08-17-2024 Eosinophils/100 WBC (Bld) 1.7 % 0-5 [facility] Epithelial cells.squamous LM Ql (Urine sed)Ordered By: Blane Alfred on 08-17-2024 Epithelial cells.squamous LM.HPF (Urine sed) [#/Area] 0 /[HPF] 5-10 [facility] Erythrocyte distribution wid th ratioOrdered By: Blane Alfred on 08-17-2024 Erythrocyte distribution width (RBC) [Ratio] 12.5 % 11.6-14.6 [facility] Erythrocyte distribution wid th standard deviationOrdered By: Blane Alfred on 08-17-2024 Erythrocyte distribution width (RBC) [Entitic vol] 36.1 fL 35.1-43.9 [facility] Erythrocyte distribution width (RBC) [Ratio] 36.1 fl 35.1-43.9 [facility] Estimation of creatinine rey aranceOrdered By: Blane Alfred on 08-17-2024 Estimated Creatinine Clearance Calc 88.92 ml/min 50-250 [facility] GFR/1.73 sq M.predicted kris g non-blacks MDRD (S/P/Bld) [Vol rate/Area]Ordered By: Blane Alfred on 08-17-2024 Estimated GFR (MDRD) Non-Af Amer [address] >60 [facility] Comment on above: mL/min/1.73m2 CKD-EP I Creatinine Equation (2020) Glomerular filtration rate ( GFR) estimation/1.73 sq m using serum, plasma, or whole bOrdered By: Blane Alfred on 08-17-2024 GFR/1.73 sq M.predicted among non-blacks MDRD (S/P/Bld) [Vol rate/Area] 84 mL/min/{1.73_m2} >60 [facility] Comment on above: mL/min/1.73m2 CKD-EP I Creatinine Equation (2020) Glucose Ql (U)Ordered By: Román Alfred on 08-17-2024 Urine Glucose (UA) Normal mg/dl Normal [facility] Hematocrit Auto (Bld) [Volum e fraction]Ordered By: Blane Alfred on 08-17-2024 Hematocrit (Bld) [Volume fraction] 36.6 % Low 37-47 [facility] Hemoglobin measurementOrdere d By: Blane Alfred on 08-17-2024 Hemoglobin (Bld) [Mass/Vol] 12.9 g/dL 12.0-15.0 [facility] Immature granulocytes/100 WB C Auto (Bld)Ordered By: Blane Alfred on 08-17-2024 Immature granulocytes/100 WBC (Bld) 0.300 % 0.0-0.9 [facility] Comment on above: IG% - Immature Granu locytes (promyelocytes, myelocytes and metamyelocytes) > 1% indicates that a LEFT SHIFT is Present. Ketones Test strip Ql (U)Ord ered By: Blane Alfred on 08-17-2024 Ketones Ql (U) 15 mg/dl High Negative [facility] - Chemistry and C hemistry - challengeOrdered By: Blane Alfred on 08-17-2024 AST [Catalytic activity/Vol] 29 U/L <32 [facility] Lipaseon 08-17-2024 Lipase [Catalytic activity/Vol] 22 U/L Normal 13-75 [facility] Comment on above: Result Comment: Riccardo martin note: LIPASE revised reference range effective 22. New Lipase methodology. Expected to produce lower values than the previous assay method. NEW Reference Range: 13 - 75 U/L Performed By: #### L 400.0001 #### [facility] [address] [place] [address], [address] Lipase measurementOrdered By : Blane Alfred on 08-17-2024 Lipase [Catalytic activity/Vol] 22 U/L 13-75 [facility] Comment on above: Please note:LIPASE r evised reference range effective 22. New Lipase methodology. Expected to produce lower values than the previous assay method. NEW Reference Range: 13 - 75 U/L Lymphocytes Auto (Unsp spec) [#/Vol]Ordered By: Blane Alfred on 08-17-2024 Lymphocytes (Bld) [#/Vol] 2.97 10*3/uL 0.83-4.51 [facility] Lymphocytes/100 WBC Auto (Un sp spec)Ordered By: Blane Alfred on 08-17-2024 Lymphocytes/100 WBC (Bld) 45.9 % High 19-41 [facility] MCV (mean corpuscular volume ) determinationOrdered By: Blane Alfred on 08-17-2024 MCV (RBC) [Entitic vol] 81.0 fL 81-99 [facility] Mean corpuscular hemoglobin (MCH) determinationOrdered By: Blane Alfred on 08-17-2024 MCH (RBC) [Entitic mass] 28.5 pg 27.0-32.0 [facility] Mean corpuscular hemoglobin concentration (MCHC) determinationOrdered By: Blane Alfred on 08-17-2024 MCHC (RBC) [Mass/Vol] 35.2 g/dL 32-36 [facility] Mean platelet volume determi nationOrdered By: Blane Alfred on 08-17-2024 Platelet mean volume (Bld) [Entitic vol] 11.4 fL 6.2-12.0 [facility] Microscopic analysis of urin e for red blood cells (RBC)Ordered By: Blane Alfred on 08-17-2024 Microscopic analysis of urine for red blood cells (RBC) > 100 SEEN /hpf 0-5 [facility] Urine RBC > 100 SEEN /hpf 0-5 [facility] Monocyte percentageOrdered B y: Blane Alfred on 08-17-2024 Monocytes/100 WBC (Bld) 6.6 % 0-10 [facility] Mucus LM Ql (Urine sed)Order ed By: Blane Alfred on 08-17-2024 Mucus Ql (Urine sed) RARE /hpf [facility] Neutrophil percentageOrdered By: Blane Alfred on 08-17-2024 Neutrophils/100 WBC (Bld) 45.2 % Low 47-70 [facility] Nitrite Test strip Ql (U)Ord ered By: Blane Alfred on 08-17-2024 Nitrite Ql (U) Negative Negative [facility] Nucleated red blood cell per centageOrdered By: Blane Alfred on 08-17-2024 Nucleated RBC/100 WBC (Bld) [Ratio] 0 % 0-5 [facility] Platelet countOrdered By: Román Alfred on 08-17-2024 Platelets (Bld) [#/Vol] 186 10*3/uL 150-450 [facility] Potassium (Unsp spec) [Mass/ Vol]Ordered By: Blane Alfred on 08-17-2024 Potassium [Moles/Vol] 3.4 mmol/L 3.3-5.1 [facility] Potassium measurement (mass/ volume)Ordered By: Blane Alfred on 08-17-2024 Potassium (Unsp spec) [Mass/Vol] 3.4 mmol/L 3.3-5.1 [facility] ,Serum,hCG Quali.on 08-17-2024 HCG, SERUM QUAL Negative Normal [facility] Comment on above: Performed By: #### L 400.0001 #### [facility] [place], [address] Protein Test strip Ql (U)Ord ered By: Blane Alfred on 08-17-2024 Protein Ql (U) 30 mg/dl High Negative [facility] RBC Auto (Bld) [#/Vol]Ordere d By: Blane Alfred on 08-17-2024 RBC (Bld) [#/Vol] 4.52 10*6/uL 4.2-5.4 [facility] Serum beta-hCG test, qualita tiveOrdered By: Blane Alfred on 08-17-2024 Beta HCG ( test) Ql Negative [facility] Serum creatinine measurement (mass/volume)Ordered By: Blane Alfred on 08-17-2024 Creatinine [Mass/Vol] 0.99 mg/dL 0.70-1.20 [facility] Serum globulin measurementOr dered By: Blane Alfred on 08-17-2024 Globulin (S) [Mass/Vol] 2.8 g/dL 2.2-4.2 [facility] Serum glucose measurement (m ass/volume)Ordered By: Blane Alfred on 08-17-2024 Glucose [Mass/Vol] 122 mg/dL High 70-99 [facility] Serum or plasma alanine milton otransferase (ALT) measurementOrdered By: Blane Alfred on 08-17-2024 ALT [Catalytic activity/Vol] 39 U/L High <35 [facility] Serum or plasma albumin harriet urement (mass/volume)Ordered By: Blane Alfred on 08-17-2024 Albumin [Mass/Vol] 4.6 g/dL 3.5-5.0 [facility] Serum or plasma albumin/glob ulin mass ratioOrdered By: Blane Alfred on 08-17-2024 Albumin/Globulin [Mass ratio] 1.7 {ratio} 0.9-2.4 [facility] Serum or plasma alkaline erorl sphatase measurementOrdered By: Blane Alfred on 08-17-2024 ALP [Catalytic activity/Vol] 57 U/L 35-104 [facility] Serum or plasma calcium harriet urement (mass/volume)Ordered By: Blane Alfred on 08-17-2024 Calcium [Mass/Vol] 9.2 mg/dL 7.6-11.0 [facility] Serum or plasma urea nitroge n measurement (mass/volume)Ordered By: Blane Alfred on 08-17-2024 Urea nitrogen [Mass/Vol] 16 mg/dL 4-19 [facility] Sodium levelOrdered By: Blane Alfred on 08-17-2024 Sodium [Moles/Vol] 140 mmol/L 133-145 [facility] Squamous epithelial cells de tection in urine sediment by light microscopyOrdered By: Blane Alfred on 08-17-2024 Epithelial cells.squamous LM Ql (Urine sed) 0-5 SEEN /hpf 5- [facility] Total proteinOrdered By: Joshua Alfred on 08-17-2024 Protein [Mass/Vol] 7.3 g/dL 5.9-8.4 [facility] Urinalysis, Completeon 08-17 BACTERIA 1+ /hpf Normal None Seen [facility] Comment on above: Order Comment: ERNESTO CTOR TO SPECIFY Performed By: #### L 400.0001 #### [facility] [address] [place], [place], [id number] EPI,SQUAMOUS 0-5 SEEN Normal - [facility] Comment on above: Order Comment: ERNESTO CTOR TO SPECIFY Performed By: #### L 400.0001 #### [facility] [address] [place], [place], [id number] Mucus Ql (Urine sed) RARE Normal [facility] Comment on above: Order Comment: COLLE CTOR TO SPECIFY Performed By: #### L 400.0001 #### [facility] [address] [place], [address] RBC > 100 SEEN Normal 0-5 [facility] Comment on above: Order Comment: COLLE CTOR TO SPECIFY Performed By: #### L 400.0001 #### [facility] [address] [place], [address] BILIRUBIN URINE Negative Normal Negative [facility] Comment on above: Order Comment: ERNESTO CTOR TO SPECIFY Performed By: #### L 400.0001 #### [facility] [address] [place], [address] Clarity (U) Clear Normal Clear [facility] Comment on above: Order Comment: ERNESTO CTOR TO SPECIFY Performed By: #### L 400.0001 #### [facility] [address] [place], [place], [facility] Color (U) Yellow Normal Yellow [facility] Comment on above: Order Comment: ERNESTO CTOR TO SPECIFY Performed By: #### L 400.0001 #### [facility] [address] [place], [place], [facility] GLUCOSE, UR Normal Normal Normal [facility] Comment on above: Order Comment: ERNESTO CTOR TO SPECIFY Performed By: #### L 400.0001 #### [facility] [address] [place], [address] KETONE UR 15 mg/dl Abnormal Negative [facility] Comment on above: Order Comment: ERNESTO CTOR TO SPECIFY Performed By: #### L 400.0001 #### [facility] [address] [place], [address] LEUK ESTERASE 25 /ul Abnormal Negative [facility] Comment on above: Order Comment: ERNESTO CTOR TO SPECIFY Performed By: #### L 400.0001 #### [facility] [address] [place], [address] Nitrite Ql (U) Negative Normal Negative [facility] Comment on above: Order Comment: ERNESTO CTOR TO SPECIFY Performed By: #### L 400.0001 #### [facility] [address] [place], [address] OCCULT BLOOD-UR 150 /ul Abnormal Negative [facility] Comment on above: Order Comment: COLLE CTOR TO SPECIFY Performed By: #### L 400.0001 #### [facility] [address] [place], [address] pH UR 7.0 Normal 5.0 - 8.0 [facility] Comment on above: Order Comment: ERNESTO CTOR TO SPECIFY Performed By: #### L 400.0001 #### [facility] [address] [place], [address] PROT DIPSTX 30 mg/dl Abnormal Negative [facility] Comment on above: Order Comment: ERNESTO CTOR TO SPECIFY Performed By: #### L 400.0001 #### [facility] [address] [place], [address] SP.GR. DIPSTX 1.010 Normal 1.002-1.030 [facility] Comment on above: Order Comment: ERNESTO CTOR TO SPECIFY Performed By: #### L 400.0001 #### [facility] [address] [place], [address] UROBILI 1 mg/dl Abnormal Normal [facility] Comment on above: Order Comment: ERNESTO CTOR TO SPECIFY Performed By: #### L 400.0001 #### [facility] [address] [place], [address] WBC 0 SEEN Normal 0-5 [facility] Comment on above: Order Comment: COLLE CTOR TO SPECIFY Performed By: #### L 400.0001 #### [facility] [address] [place], [address] Urine blood detectionOrdered By: Blane Alfred on 08-17-2024 Urine Occult Blood 150 /ul High Negative [facility] Urine clarityOrdered By: Joshua Alfred on 08-17-2024 Clarity (U) Clear Clear [facility] Urine color determinationOrd ered By: Blane Alfred on 08-17-2024 Color (U) Yellow Yellow [facility] Urine glucose detectionOrder ed By: Blane Alfred on 08-17-2024 Glucose Ql (U) Normal mg/dl Normal [facility] Urine leukocyte esterase det ection by dipstickOrdered By: Blane Alfred on 08-17-2024 Leukocyte esterase Test strip Ql (U) 25 /ul High Negative [facility] Urine pHOrdered By: Blane Hickman ghmarcin on 08-17-2024 pH (U) 7.0 [pH] 5.0 - 8.0 [facility] Urine sediment bacteria coun t by microscopy (number/high power field)Ordered By: Blane Alfred on 08-17-2024 Bacteria LM.HPF (Urine sed) [#/Area] 1 /[HPF] None Seen [facility] Urine specific gravity measu rementOrdered By: Blane Alfred on 08-17-2024 Specific gravity (U) [Rel density] 1.010 1.002-1.030 [facility] Urine urobilinogen measureme ntOrdered By: Blane Alfred on 08-17-2024 Urobilinogen Ql (U) 1 mg/dl High Normal [facility] Urobilinogen Ql (U)Ordered B y: Blane Aflred on 08-17-2024 Urobilinogen (U) [Mass/Vol] 1 mg/dL High Normal [facility] White blood cell (WBC) count Ordered By: Blane Alfred on 08-17-2024 WBC (Bld) [#/Vol] 6.5 10*3/uL 4.4-11.0 [facility] White blood cell countOrdere d By: Blnae Alfred on 08-17-2024 Urine WBC 0 SEEN /hpf 0-5 [facility] White blood cell count 0 SEEN /hpf 0-5 [facility] CNPNon 08-04-2024 CNPN Telephone (PSYLST) BEATRIS FLETCHER ([id number]) 3 F Date Time Provider Department 08/04/24 NATALIIA VAIL During your visit today, we [...] 1 tablet by mouth once daily. - Vsqgokqm-Jt-Lga-Fe-FA tab Take 1 tablet by mouth once [...] Encounter Status:Closed by BRENNA ODELL on 08/04/24 [facility] KMOVkenyetta 06-24-2024 CNOV Office Visit (PSYLST ) BEATRIS FLETCHER ([id number]) 3 Date Time Provider Department 06/24/24 8:00 AM NATALIIA VAIL PSYLST During your visit today, [...] agreement to participate Originating site for client [facility] site for provider [facility] appropriate for privacy No equipment failures, provided psychotherapy I have communicated my name and active licensure. The patient's identity and physical location were verified at the time of this visit. Either the patient or their legal key account representative has been informed of the risks and benefits of -- and alternatives to -- treatment through a remote evaluation and consents to proceed with the evaluation remotely. The patient e-signed the Informed Consent for Psychological Evaluation AND Care Form, and the [facility] insurance benefits, fees for service, emergency procedures, and the limits of confidentiality that may pertain with any given case were discussed with the patient. The patient was given a copy of the consent form on [employer]. The patient consented to a virtual visit and their location was confirmed. PRESENT: Child AGE: [age] year old RACE: White MARITAL STATUS: Living with significant other CHILDREN: Yes, son age one month [place]. 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 PAST MEDICAL HISTORY Diagnosis Date Anemia Depression/anxiety Ganglion cyst of wrist, left Irregular menses Low-lying placenta 01/26/2024 04/21/24- Resolved. Leena Gaytan APRN.CNM Repeat growth US at 32 weeks. Anitra Caldwell APRN.CNM PAST SURGICAL HISTORY Procedure Laterality Date DENTAL SURGERY HX 2015 ORTHOPEDICS SURGERY HX knee torn meniscus WRIST Left cyst on left wrist Current Outpatient Medications Medication Sig Byqgfbwo-Kr-Ixd-Fe-FA tab Take 1 tablet by mouth once [...] difficulty falling asleep because she might hear start to cry Interest: diminished, has been [...] find her. (more content not included)... Normal [facility] Turner 06-24-2024 MARKY Telephone (JULIANGYWM) BEATRIS FLETCHER ([id number]) 3 F Date Time Provider Department 06/24/24 LEENA GAYTAN During your visit today, we recorded the following information about you: Andrea Carlton, ADRIEN 06/24/2024 11:25 AM Signed Leena Gaytan APRN.CNM (Accounts Payable Administrator) Mc Kay Stitcher Patient contacted by social work for women's [...] with me scheduled. Tomorrow is fine! 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 Basophil percentageOrdered B y: Laxmi Simons on 05-25-2024 Basophils/100 WBC (Bld) 0.2 % 0-1 [facility] CBC W/Diff, Automatedon Absolute Lymph 2.12 X10 3/uL Normal 0.83-4.51 [facility] Comment on above: Performed By: #### Isa FITZPATRICK, L100.0100 #### [facility] [address] [place], [address] Absolute Neut 6.4 X10 3/uL Normal 2.0-7.7 [facility] Comment on above: Performed By: #### Isa FITZPATRICK, L100.0100 #### [facility] [address] [place], [address] Basophils/100 WBC (Bld) 0.2 % Normal 0-1 [facility] Comment on above: Performed By: #### Isa FITZPATRICK, L100.0100 #### [facility] [address] [place], [address] Eosinophils/100 WBC (Bld) 0.4 % Normal 0-5 [facility] Comment on above: Performed By: #### Isa FITZPATRICK, L100.0100 #### [facility] [address] [place], [address] Erythrocyte distribution width (RBC) [Ratio] 12.8 % Normal 11.6-14.6 [facility] Comment on above: Performed By: #### Isa FITZPATRICK, L100.0100 #### [facility] [address] [place], [address] Hematocrit (Bld) [Volume fraction] 36.6 % Low 37-47 [facility] Comment on above: Performed By: #### Isa FITZPATRICK, L100.0100 #### [facility] [address] [place], [address] Hemoglobin (Bld) [Mass/Vol] 12.7 g/dL Normal 12.0-15.0 [facility] Comment on above: Performed By: #### Isa FITZPATRICK, L100.0100 #### [facility] [address] [place], [address] IG% 0.600 Normal 0.0-0.9 [facility] Comment on above: Result Comment: IG% - Immature Granulocytes (promyelocytes, myelocytes and metamyelocytes) > 1% indicates that a LEFT SHIFT is Present. Performed By: #### Isa FITZPATRICK, L100.0100 #### [facility] [address] [place], [address] Lymphocytes/100 WBC (Bld) 23.4 % Normal 19-41 [facility] Comment on above: Performed By: #### Isa FITZPATRICK, L100.0100 #### [facility] [address] [place], [address] MCH (RBC) [Entitic mass] 30.0 pg Normal 27.0-32.0 [facility] Comment on above: Performed By: #### Isa FITZPATRICK, L100.0100 #### [facility] [address] [place], [address] MCHC (RBC) [Mass/Vol] 34.7 g/dL Normal 32-36 [facility] Comment on above: Performed By: #### Isa FITZPATRICK, L100.0100 #### [facility] [address] [place], [address] MCV (RBC) [Entitic vol] 86.3 fL Normal 81-99 [facility] Comment on above: Performed By: #### Isa FITZPATRICK, L100.0100 #### [facility] [address] [place], [address] Monocytes/100 WBC (Bld) 5.2 % Normal 0-10 [facility] Comment on above: Performed By: #### Isa FITZPATRICK, L100.0100 #### [facility] [address] [place], [address] Neutrophils/100 WBC (Bld) 70.2 % High 47-70 [facility] Comment on above: Performed By: #### Isa FITZPATRICK, L100.0100 #### [facility] [address] [place], [address] Nucleated RBC (Bld) [#/Vol] 0 10*3/uL Normal 0-5 [facility] Comment on above: Performed By: #### Isa FITZPATRICK, L100.0100 #### [facility] [address] [place], [address] Platelet mean volume (Bld) [Entitic vol] 12.0 fL Normal 6.2-12.0 [facility] Comment on above: Performed By: #### Isa FITZPATRICK, L100.0100 #### [facility] [address] [place], [address] Platelets (Bld) [#/Vol] 177 10*3/uL Normal 150-450 [facility] Comment on above: Performed By: #### Isa FITZPATRICK, L100.0100 #### [facility] [address] [place], [address] RBC (Bld) [#/Vol] 4.24 10*6/uL Normal 4.2-5.4 [facility] Comment on above: Performed By: #### Isa FITZPATRICK, L100.0100 #### [facility] [address] [place], [place], [address] RDW SD 40.0 fl Normal 35.1-43.9 [facility] Comment on above: Performed By: #### B TS, L100.0100 #### [facility] [address] [place], [place], [address] WBC (Bld) [#/Vol] 9.1 10*3/uL Normal 4.4-11.0 [facility] Comment on above: Performed By: #### B TS, L100.0100 #### [facility] [address] [place], [place], [address] CNPNon 05-25-2024 CLAUDIAN Telephone (OBGYWM) BEATRIS FLETCHER ([id number]) 3 F Date Time Provider Department 05/25/24 LAXMI COLEMAN During your visit today, we recorded the [...] office to be seen or go to [facility] in contractions remain regular. Nora Haile LPN 05/25/2024 3:10 PM Signed Patient went to [facility] for evaluation Allergies As of Date: 05/25/2024 [...] 50 mg by mouth once daily. - Rzikrotn-Kg-Kdr-Fe-FA tab Take 1 tablet by mouth once [...] Status:Closed by NORA HAILE on 05/25/24 Normal [facility] Eosinophil percentageOrdered By: Laxmi Simons on 05-25-2024 Eosinophils/100 WBC (Bld) 0.4 % 0-5 [facility] Erythrocyte distribution wid th ratioOrdered By: Laxmi Simons on 05-25-2024 Erythrocyte distribution width (RBC) [Ratio] 12.8 % 11.6-14.6 [facility] Erythrocyte distribution wid th standard deviationOrdered By: Laxmi Schuler on 05-25-2024 Erythrocyte distribution width (RBC) [Entitic vol] 40.0 fL 35.1-43.9 [facility] H AND P Exam - OB/GYNon H&P Exam - SERVICE GIRL [facility] Medical Records Department [address] [place] [address] H P Exam - SERVICE GIRL 05/25/24 1612 MR#: [id number] Acct: [id number] Name: ZARINA FLETCHERIA FESTUS Rep #: [id number] : 2005 18 From: Laxmi Simons MD PCP: Care Physician,No Primary Status:ADM IN Location: [address] HPI - General General Date of Admission: 05/25/24 HPI Narrative BEATRIS FLETCHER, is a 18 F @ 37.4 weeks who presents c/o contractions Maternal Data Information Final RICK: 06/11/24 Final RICK Source: US <20 weeks Gestational age: 37.4 [facility] Medical History (Updated 05/25/24 @ 16:14 by [...] 13:22 05/25/24 (more content not included)... Normal [facility] Hematocrit Auto (Bld) [Volum e fraction]Ordered By: Laxmi Simons on 05-25-2024 Hematocrit (Bld) [Volume fraction] 36.6 % Low 37-47 [facility] Hemoglobin measurementOrdere d By: Laxmi Simons on 05-25-2024 Hemoglobin (Bld) [Mass/Vol] 12.7 g/dL 12.0-15.0 [facility] Immature granulocytes/100 WB C Auto (Bld)Ordered By: Laxmi Simons on 05-25-2024 Immature granulocytes/100 WBC (Bld) 0.600 % 0.0-0.9 [facility] Comment on above: IG% - Immature Granu locytes (promyelocytes, myelocytes and metamyelocytes) > 1% indicates that a LEFT SHIFT is Present. L509.8000on 05-25-2024 Syphilis Abs Non-Reactive Normal [facility] Comment on above: Performed By: #### L 509.8000 #### [facility] [address] [facility] [place], [address] Lymphocytes Auto (Unsp spec) [#/Vol]Ordered By: Laxmi Simons on 05-25-2024 Lymphocytes (Bld) [#/Vol] 2.12 10*3/uL 0.83-4.51 [facility] Lymphocytes/100 WBC Auto (Un sp spec)Ordered By: Laxmi Simons on 05-25-2024 Lymphocytes/100 WBC (Bld) 23.4 % 19-41 [facility] MCV (mean corpuscular volume ) determinationOrdered By: Laxmi Simons on 05-25-2024 MCV (RBC) [Entitic vol] 86.3 fL 81-99 [facility] MR/OB.VAGDELIon 05-25-2024 [facility] Medical Records Department [address] [place] [address] OB Vaginal Delivery 05/25/242053 MR#: [id number] Acct: [id number] Name: BEATRIS FLETCHER Rep #: [id number] : 2005 18 From: Laxmi Simons MD PCP: Care Physician,No Primary Status:ADM IN Location: ME322-6 Vaginal Delivery Maternal Presentation Maternal Presentation: Active Labor Vaginal Delivery Information Procedure Performed: Spontaneous Vaginal Delivery Surgeon/Practitioner: Laxmi Simons Date of Procedure: 05/25/24 Pre-Procedure Diagnosis: 37 weeks gestation, rubella non immune antepartum, h/o depression antepartum Post-Procedure Diagnosis: Same, live male Type of anesthesia: Epidural Estimated Blood Loss: 100 Time of Delivery: 20:34 Findings Description of procedure: Patient progressed to fully dilated. Good maternal pushing efforts delivered the infant's head followed by the anterior shoulder and the posterior shoulder followed by the rest the 's body without delay. The was then placed on the mother's chest delayed cord clamping was performed. Mouth and nose were suctioned. was vigorous at time of delivery. 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 Mean corpuscular hemoglobin (MCH) determinationOrdered By: Laxmi Schuler on 05-25-2024 MCH (RBC) [Entitic mass] 30.0 pg 27.0-32.0 [facility] Mean corpuscular hemoglobin concentration (MCHC) determinationOrdered By: Laxmi Simons on 05-25-2024 MCHC (RBC) [Mass/Vol] 34.7 g/dL 32-36 [facility] Mean platelet volume determi nationOrdered By: Laxmi Simons on 05-25-2024 Platelet mean volume (Bld) [Entitic vol] 12.0 fL 6.2-12.0 [facility] Monocyte percentageOrdered B y: Laxmi Simons on 05-25-2024 Monocytes/100 WBC (Bld) 5.2 % 0-10 [facility] Neutrophil percentageOrdered By: Laxmi Simons on 05-25-2024 Neutrophils/100 WBC (Bld) 70.2 % High 47-70 [facility] Nucleated red blood cell per centageOrdered By: Laxmi Simons on 05-25-2024 Nucleated RBC/100 WBC (Bld) [Ratio] 0 % 0-5 [facility] Platelet countOrdered By: Rivera on 05-25-2024 Platelets (Bld) [#/Vol] 177 10*3/uL 150-450 [facility] RBC Auto (Bld) [#/Vol]Ordere d By: Laxmi Simons on 05-25-2024 RBC (Bld) [#/Vol] 4.24 10*6/uL 4.2-5.4 [facility] Treponema sp Ab Ql (S)Ordere d By: Laxmi Simons on 05-25-2024 Syphilis Total Antibody Non-Reactive [facility] Type AND Screenon 05-25-2024 Ab SCREEN GEL Negative Normal [facility] Comment on above: Order Comment: Labor Performed By: #### B TS, L100.0100 #### [facility] [address] [place], [address] White blood cell (WBC) count Ordered By: Laxmi Simons on 05-25-2024 WBC (Bld) [#/Vol] 9.1 10*3/uL 4.4-11.0 [facility] ROUTINE, GROUP B ST REP PCRon 05-18-2024 ROUTINE, GROUP B STREP PCR GROUP B STREP PCR: Negative for Group B Streptococcus by PCR. Normal [facility] Comment on above: Performed By: #### G BPCR ####[facility]CLIA [id number] [facility] [id number] [address] [place] URINE OB DIP B/Oon Glucose Ql (U) Negative Neg mg/dL [facility] Protein.monoclonal (U) [Mass/Vol] Negative Neg mg/dL [facility] URINE OB DIP B/OOrdered By: Roro Sanz on 05-11-2024 Glucose Ql (U) Negative Neg mg/dL [facility] Interpretation and review of laboratory results Normal [facility] Protein.monoclonal (U) [Mass/Vol] Negative Neg mg/dL [facility] CNOVon 05-05-2024 CNOV Office Visit (OBGYWM ) BEATRIS FLETCHER ([id number]) 3 F Date Time Provider Department 05/05/24 [...] week for YONY with GBS Leena Gaytan APRN.Ld Estevez MA 05/05/2024 1:43 PM Signed SEQUENTIAL SCREENINGS The [facility] offers sequential screenings for women who [...] It will require an appointment with our electrical instrumentation technician. This is not an ultrasound performed [...] the above symptoms, contact our office at [phone] and ask to speak with a nurse. After hours, you can call doctors registry at [phone] OR call [facility] at [phone] and ask to have the doctor relationship mgr paged. If you consider this an emergency, dial 9-1- or go to your nearest emergency department. NEED HELP? Are you dealing with a violent or abusive relationship? Are you a victim of rape or sexual assult? Call [facility] ([place]) 24 hour Crisis Hotline: 595.880.4646 or 271-411-5494. MANUAL Your Guide to a Healthy manual is now on-line. Visit [email or web address] lthyPregnancyGuide to download your free copy Allergies [...] trimester [O26.893, R12] Order(s):URINE OB DIP B/O [3380808] Order #: [id number] Prescriptions as of 05/05/2024 - pantoprazole DR (PROTONIX) 20 mg tablet Take 1 tablet by mouth once daily. - aspirin, enteric coated (ECOTRIN LOW STRENGTH) 81 mg EC tablet Take 1 tablet by mouth once daily. - pyridoxine, vitamin B6, (VITAMIN B-6) 50 mg tablet Take 50 mg by mouth once daily. - Rpqzfipv-Jz-Fte-Fe-FA tab Take 1 tablet by mouth once [...] of depressio (more content not included)... 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 - aspirin, enteric coated (ECOTRIN LOW STRENGTH) 81 mg EC tablet Take 1 tablet by mouth once daily. - pyridoxine, vitamin B6, (VITAMIN B-6) 50 mg tablet Take 50 mg by mouth once daily. - Ajgcjrxf-Tc-Lcj-Fe-FA tab Take 1 tablet by mouth once [...] Encounter Status:Closed by AMELIA ARMSTRONG on 04/22/24 [facility] CNOVon 04-21-2024 CNOV Office Visit (OBGYWM ) ZARINA FLETCHERIA Tavon ([id number]) 3 F Date Time Provider Department 04/21/24 2:30 PM LEENA GAYTAN OBBENOITWAlexa During your visit today, we recorded the following information about you: Blood pressure Weight 106/68 75.8 kg Ld Duckworth MA 04/21/2024 2:04 PM Signed SEQUENTIAL SCREENINGS The [facility] offers sequential screenings for women who [...] It will require an appointment with our electrical instrumentation technician. This is not an ultrasound performed [...] the above symptoms, contact our office at [phone] and ask to speak with a nurse. After hours, you can call doctors registry at [phone] OR call [facility] at [phone] and ask to have the doctor relationship mgr paged. If you consider this an emergency, dial 91- or go to your nearest emergency department. NEED HELP? Are you dealing with a violent or abusive relationship? Are you a victim of rape or sexual assult? Call [facility] ([place]) 24 hour Crisis Hotline: 313.741.4957 or 494-925-4948. MANUAL Your Guide to a Healthy manual is now on-line. Visit [email or web address] lthyPregnancyGuide to download your free copy Leena [...] reviewed RTO 2 weeks Leena Gaytan APRN.CNM Allergies As of Date: 04/21/2024 Noted [...] 50 mg by mouth once daily. - Ricsukjg-Kv-Kxn-Fe-FA tab Take 1 tablet by mouth once [...] first w (more content not included)... Normal [facility] Examination level ultrasound on 04-21-[address] [facility] Radiology Study observation (narrative) [facility] Turner 03-25-2024 MARKY Telephone (OBGYWM) BEATRIS FLETCHER ([id number]) 3 F Date Time Provider Department 03/25/24 ROBSON ROMERO During your visit today, we recorded the following information about you: Robson Romero APRN.CNP 03/25/2024 2:59 PM Signed Even if 3 hour is elevated, passed GTT. 2 hour is 60. Patient does not need do have last draw - recommend eating something. Please call lab/notify patient. Robson Romero APRN.Dyan Lux RN 03/25/2024 3:06 PM [...] 50 mg by mouth once daily. - Sivipmky-Ky-Txg-Fe-FA tab Take 1 tablet by mouth once [...] Status:Closed by DYAN SOMERS on 03/25/24 Normal [facility] GLUCOSE GESTATIONAL, 1 HOURo n 03-25-2024 Glucose 1 Hr post Unsp challenge [Mass/Vol] 88 mg/dL Normal 74-179 [facility] Comment on above: Order Comment: Speci men Type: BLOOD SPECIMENOrdering Facility: [facility] Address: [address] [place] [address] Result Comment: [facility] Congress of Obstetricians and Gynecologists (Lois/Wade) guidelines state gestational diabetes mellitus is present when 2 or more of the plasma glucose concentrations meet or exceed the following levels: fastin mg/dl, 1 hr: 180 mg/dl, 2 hr: 155 mg/dl, and 3 hr: 140 mg/dl. Performed By: #### G TGST1 ####[facility] [id number] [place] [address] [place] GLUCOSE GESTATIONAL, 2 HOURo n 03-25-2024 Glucose 2 Hr post Unsp challenge [Mass/Vol] 60 mg/dL Low 74-154 [facility] Comment on above: Order Comment: [facility] Type: BLOOD SPECIMENOrdering Facility: [facility] Address: [address] [place] [address] Result Comment: [facility] Congress of Obstetricians and Gynecologists (Lois/Wade) guidelines state gestational diabetes mellitus is present when 2 or more of the plasma glucose concentrations meet or exceed the following levels: fastin mg/dl, 1 hr: 180 mg/dl, 2 hr: 155 mg/dl, and 3 hr: 140 mg/dl. Performed By: #### G TGST2 ####[facility] [id number] [place] [address] [place] GLUCOSE GESTATIONAL, FASTING on 03-25-2024 Glucose post fast [Mass/Vol] 82 mg/dL Normal 74-94 [facility] Comment on above: Order Comment: [facility] Type: BLOOD SPECIMENOrdering Facility: [facility] Address: [address] [place] [address] Result Comment: [facility] Congress of Obstetricians and Gynecologists (Lois/Wade) guidelines state gestational diabetes mellitus is present when 2 or more of the plasma glucose concentrations meet or exceed the following levels: fastin mg/dl, 1 hr: 180 mg/dl, 2 hr: 155 mg/dl, and 3 hr: 140 mg/dl. Performed By: #### G TGSTF ####[facility] [id number] [place] [address] [place] Basic Metabolic Profile (BMP )on 03-21-2024 BUN/CRE 12.8 RATIO Normal 10-20 [facility] Comment on above: Performed By: #### L 500.2500, L500.3400, L501.5200, L100.0100 #### [facility] [address] [place], [address] CA,Total 8.7 mg/dL Normal 8.5-10.1 [facility] Comment on above: Performed By: #### L 500.2500, L500.3400, L501.5200, L100.0100 #### [facility] [address] [facility] [address] Chloride [Moles/Vol] 105 mmol/L Normal 98-107 [facility] Comment on above: Performed By: #### L 500.2500, L500.3400, L501.5200, L100.0100 #### [facility] [address] [place], [address] CO2 [Moles/Vol] 25.0 mmol/L Normal 21.0-32.0 [facility] Comment on above: Performed By: #### L 500.2500, L500.3400, L501.5200, L100.0100 #### [facility] [address] [place], [address] Creatinine [Mass/Vol] 0.47 mg/dL Low 0.55-1.02 [facility] Comment on above: Result Comment: The validity of the calculated GFR GFRAA in patients over 70 years has not been determined. Clinical correlation is essential. Performed By: #### L 500.2500, L500.3400, L501.5200, L100.0100 #### [facility] [address] [place], [address] ECRCL 188.38 ml/min Normal [facility] Comment on above: Performed By: #### L 500.2500, L500.3400, L501.5200, L100.0100 #### [facility] [address] [place], [address] EST GFR - AA 218 mL/min Normal >60 [facility] Comment on above: Result Comment: Afri can [place] GFR Calc Performed By: #### L 500.2500, L500.3400, L501.5200, L100.0100 #### [facility] [address] [place], [address] GAP 7 Normal 5-15 [facility] Comment on above: Performed By: #### L 500.2500, L500.3400, L501.5200, L100.0100 #### [facility] [address] [place], [address] GFR/1.73 sq M.predicted among non-blacks MDRD (S/P/Bld) [Vol rate/Area] 180 mL/min/{1.73_m2} Normal >60 [facility] Comment on above: Result Comment: Non- GFR Calc Performed By: #### L 500.2500, L500.3400, L501.5200, L100.0100 #### [facility] [address] [place], [address] Glucose [Mass/Vol] 80 mg/dL Normal 74-106 [facility] Comment on above: Performed By: #### L 500.2500, L500.3400, L501.5200, L100.0100 #### [facility] [address] [place], [address] Potassium [Moles/Vol] 3.5 mmol/L Normal 3.5-5.1 [facility] Comment on above: Performed By: #### L 500.2500, L500.3400, L501.5200, L100.0100 #### [facility] [address] [place], [address] Sodium [Moles/Vol] 137 mmol/L Normal 136-145 [facility] Comment on above: Performed By: #### L 500.2500, L500.3400, L501.5200, L100.0100 #### [facility] [address] [place], [address] Urea nitrogen [Mass/Vol] 6 mg/dL Low 7-18 [facility] Comment on above: Performed By: #### L 500.2500, L500.3400, L501.5200, L100.0100 #### [facility] [address] [place], [address] CBC W/Diff, Automatedon 11-0 -2023 Absolute Lymph 1.21 X10 3/uL Normal 0.83-4.51 [facility] Comment on above: Performed By: #### L 500.2500, L500.3400, L501.5200, L100.0100 #### [facility] [address] [place], [address] Absolute Neut 4.9 X10 3/uL Normal 2.0-7.7 [facility] Comment on above: Performed By: #### L 500.2500, L500.3400, L501.5200, L100.0100 #### [facility] [address] [place], [address] Basophils/100 WBC (Bld) 0.1 % Normal 0-1 [facility] Comment on above: Performed By: #### L 500.2500, L500.3400, L501.5200, L100.0100 #### [facility] [address] [place], [address] Eosinophils/100 WBC (Bld) 0.6 % Normal 0-5 [facility] Comment on above: Performed By: #### L 500.2500, L500.3400, L501.5200, L100.0100 #### [facility] [address] [place], [address] Erythrocyte distribution width (RBC) [Ratio] 12.6 % Normal 11.6-14.6 [facility] Comment on above: Performed By: #### L 500.2500, L500.3400, L501.5200, L100.0100 #### [facility] [address] [place], [address] Hematocrit (Bld) [Volume fraction] 31.5 % Low 37-47 [facility] Comment on above: Performed By: #### L 500.2500, L500.3400, L501.5200, L100.0100 #### [facility] [address] [place], [address] Hemoglobin (Bld) [Mass/Vol] 11.3 g/dL Low 12.0-15.0 [facility] Comment on above: Performed By: #### L 500.2500, L500.3400, L501.5200, L100.0100 #### [facility] [address] [place], [address] IG% 0.400 Normal 0.0-0.9 [facility] Comment on above: Result Comment: IG% - Immature Granulocytes (promyelocytes, myelocytes and metamyelocytes) > 1% indicates that a LEFT SHIFT is Present. Performed By: #### L 500.2500, L500.3400, L501.5200, L100.0100 #### [facility] [address] [place], [address] Lymphocytes/100 WBC (Bld) 18.0 % Low 19-41 [facility] Comment on above: Performed By: #### L 500.2500, L500.3400, L501.5200, L100.0100 #### [facility] [address] [place], [address] MCH (RBC) [Entitic mass] 31.4 pg Normal 27.0-32.0 [facility] Comment on above: Performed By: #### L 500.2500, L500.3400, L501.5200, L100.0100 #### [facility] [address] [place], [address] MCHC (RBC) [Mass/Vol] 35.9 g/dL Normal 32-36 [facility] Comment on above: Performed By: #### L 500.2500, L500.3400, L501.5200, L100.0100 #### [facility] [address] [place], [address] MCV (RBC) [Entitic vol] 87.5 fL Normal 81-99 [facility] Comment on above: Performed By: #### L 500.2500, L500.3400, L501.5200, L100.0100 #### [facility] [address] [place], [address] Monocytes/100 WBC (Bld) 7.7 % Normal 0-10 [facility] Comment on above: Performed By: #### L 500.2500, L500.3400, L501.5200, L100.0100 #### [facility] [address] [place], [address] Neutrophils/100 WBC (Bld) 73.2 % High 47-70 [facility] Comment on above: Performed By: #### L 500.2500, L500.3400, L501.5200, L100.0100 #### [facility] [address] [place], [address] Nucleated RBC (Bld) [#/Vol] 0 10*3/uL Normal 0-5 [facility] Comment on above: Performed By: #### L 500.2500, L500.3400, L501.5200, L100.0100 #### [facility] [address] [place], [address] Platelet mean volume (Bld) [Entitic vol] 11.5 fL Normal 6.2-12.0 [facility] Comment on above: Performed By: #### L 500.2500, L500.3400, L501.5200, L100.0100 #### [facility] [address] [place], [address] Platelets (Bld) [#/Vol] 146 10*3/uL Low 150-450 [facility] Comment on above: Performed By: #### L 500.2500, L500.3400, L501.5200, L100.0100 #### [facility] [address] [place], [address] RBC (Bld) [#/Vol] 3.60 10*6/uL Low 4.2-5.4 [facility] Comment on above: Performed By: #### L 500.2500, L500.3400, L501.5200, L100.0100 #### [facility] [address] [place], [address] RDW SD 39.6 fl Normal 35.1-43.9 [facility] Comment on above: Performed By: #### L 500.2500, L500.3400, L501.5200, L100.0100 #### [facility] [address] [place], [address] WBC (Bld) [#/Vol] 6.7 10*3/uL Normal 4.4-11.0 [facility] Comment on above: Performed By: #### L 500.2500, L500.3400, L501.5200, L100.0100 #### [facility] [address] [place], [address] Emergency Department Summary on 03-21-2024 Emergency Department Summary [facility] Medical Records Department [address] [place] [address] Emergency Department Summary 03/21/24 MR#: [id number] Acct: [id number] Name: BEATRIS FLETCHER Rep #: [id number] : 2005 18 From: Vlad Jay DO [...] an infective process she presents for evaluation. [facility] Medical History Encounter for screening for [...] Neck supple (more content not included)... Normal [facility] Liver Profileon 03-21-2024 Albumin [Mass/Vol] 3.0 g/dL Low 3.2-5.0 [facility] Comment on above: Performed By: #### L 500.2500, L500.3400, L501.5200, L100.0100 #### [facility] [address] [place], [address] ALK P 68 U/L Normal 45-117 [facility] Comment on above: Performed By: #### L 500.2500, L500.3400, L501.5200, L100.0100 #### [facility] [address] [place], [address] ALT [Catalytic activity/Vol] 21 U/L Normal 13-56 [facility] Comment on above: Performed By: #### L 500.2500, L500.3400, L501.5200, L100.0100 #### [facility] [address] [place], [address] AST [Catalytic activity/Vol] 10 U/L Low 15-37 [facility] Comment on above: Performed By: #### L 500.2500, L500.3400, L501.5200, L100.0100 #### [facility] [address] [place], [address] Bilirubin [Mass/Vol] 0.50 mg/dL Normal 0.20-1.00 [facility] Comment on above: Result Comment: For patients on eltrombopag therapy, use of Dimension Clio TBIL is not recommended. Performed By: #### L 500.2500, L500.3400, L501.5200, L100.0100 #### [facility] [address] [place], [address] Bilirubin.direct [Mass/Vol] 0.14 mg/dL Normal 0.00-0.30 [facility] Comment on above: Performed By: #### L 500.2500, L500.3400, L501.5200, L100.0100 #### [facility] [address] [place], [address] Globulin (S) [Mass/Vol] 3.9 g/dL Normal 2.2-4.2 [facility] Comment on above: Performed By: #### L 500.2500, L500.3400, L501.5200, L100.0100 #### [facility] [address] [place], [address] T PROT 6.9 g/dL Normal 6.4-8.2 [facility] Comment on above: Performed By: #### L 500.2500, L500.3400, L501.5200, L100.0100 #### [facility] [address] [place], [address] Magnesiumon 03-21-2024 Magnesium [Mass/Vol] 1.8 mg/dL Normal 1.6-2.6 [facility] Comment on above: Performed By: #### L 500.2500, L500.3400, L501.5200, L100.0100 #### [facility] [address] [place], [address] [facility]NPNon [facility] BEATRIS FLETCHER ([id number]) 3 F Date Time Provider Department 03/19/24 ANITRA CALDWELL OBBENOITWAlexa During your visit today, we recorded [...] 50 mg by mouth once daily. - Fskzetfg-Bb-Hlj-Fe-FA tab Take 1 tablet by mouth once [...] Status:Closed by AMELIA MARTINEZ on 03/19/24 Normal [facility] CBC W Auto Differential pane l (Bld)on 03-18-2024 Basophils (Bld) [#/Vol] 10*3/uL Normal <0.11 [facility] Comment on above: Order Comment: Speci men Type: BLOOD SPECIMENOrdering Facility: [facility] Address: [address] [place] [address] Performed By: #### 5 7021-8 ####[facility] [id number] [place] [address] [place] Basophils/100 WBC (Bld) 0.2 % Normal [facility] Comment on above: Order Comment: Speci men Type: BLOOD SPECIMENOrdering Facility: [facility] Address: [address] [place] [address] Performed By: #### 5 7021-8 ####[facility] [id number] [place] [address] [place] Differential cell count method Nom (Bld) Auto Normal [facility] Comment on above: Order Comment: Speci men Type: BLOOD SPECIMENOrdering Facility: [facility] Address: [address] [place] [address] Performed By: #### 5 7021-8 ####[facility] [id number] [place] [address] [place] Eosinophils (Bld) [#/Vol] 10*3/uL Normal <0.46 [facility] Comment on above: Order Comment: Speci men Type: BLOOD SPECIMENOrdering Facility: [facility] Address: [address] [place] [address] Performed By: #### 5 7021-8 ####[facility] [id number] [place] [address] [place] Eosinophils/100 WBC (Bld) 0.2 % Normal [facility] Comment on above: Order Comment: Speci men Type: BLOOD SPECIMENOrdering Facility: [facility] Address: [address] [place] [address] Performed By: #### 5 7021-8 ####[facility] [id number] [place] [address] [place] Erythrocyte distribution width (RBC) [Ratio] 12.5 % Normal 11.5-15.0 [facility] Comment on above: Order Comment: Speci men Type: BLOOD SPECIMENOrdering Facility: [facility] Address: [address] [place] [address] Performed By: #### 5 7021-8 ####[facility] [id number] [place] [address] [place] Hematocrit (Bld) [Volume fraction] 32.4 % Low 36.0-46.0 [facility] Comment on above: Order Comment: Speci men Type: BLOOD SPECIMENOrdering Facility: [facility] Address: [address] [place] [address] Performed By: #### 5 7021-8 ####[facility] MILLTOWNCLIA [id number] [place] [address] [place] Hemoglobin (Bld) [Mass/Vol] 11.3 g/dL Low 11.5-15.5 [facility] Comment on above: Order Comment: Speci men Type: BLOOD SPECIMENOrdering Facility: [facility] Address: [address] [place] [address] Performed By: #### 5 7021-8 ####[facility] [id number] [place] [address] [place] Immature granulocytes (Bld) [#/Vol] 0.03 10*3/uL Normal <0.10 [facility] Comment on above: Order Comment: Speci men Type: BLOOD SPECIMENOrdering Facility: [facility] Address: [address] [place] [address] Performed By: #### 5 7021-8 ####[facility]ITAL[facility]CL[facility] [id number] [place] [address] [place] Immature granulocytes/100 WBC (Bld) 0.6 % Normal [facility] Comment on above: Order Comment: Speci men Type: BLOOD SPECIMENOrdering Facility: [facility] Address: [address] [place] [address] Performed By: #### 5 7021-8 ####[facility] [id number] [place] [address] [place] Lymphocytes (Bld) [#/Vol] 1.15 10*3/uL Normal 1.00-4.00 [facility] Comment on above: Order Comment: Speci men Type: BLOOD SPECIMENOrdering Facility: [facility] Address: [address] [place] [address] Performed By: #### 5 7021-8 ####[facility]CL[facility] [id number] [place] [address] [place] Lymphocytes/100 WBC (Bld) 23.0 % Normal [facility] Comment on above: Order Comment: Speci men Type: BLOOD SPECIMENOrdering Facility: [facility] Address: [address] [place] [address] Performed By: #### 5 7021-8 ####[facility]PITALLUCA [id number] [place] [address] [place] MCH (RBC) [Entitic mass] 30.7 pg Normal 26.0-34.0 [facility] Comment on above: Order Comment: Speci men Type: BLOOD SPECIMENOrdering Facility: [facility] Address: [address] [place] [address] Performed By: #### 5 7021-8 ####[facility]PITALNCSHANNON [id number] [place] [address] [place] MCHC (RBC) [Mass/Vol] 34.9 g/dL Normal 30.5-36.0 [facility] Comment on above: Order Comment: Speci men Type: BLOOD SPECIMENOrdering Facility: [facility] Address: [address] [place] [address] Performed By: #### 5 7021-8 ####[facility] H[facility]PITALNCSHANNON [id number] [place] [address] [place] MCV (RBC) [Entitic vol] 88.0 fL Normal 80.0-100.0 [facility] Comment on above: Order Comment: Speci men Type: BLOOD SPECIMENOrdering Facility: [facility] Address: [address] [place] [address] Performed By: #### 5 7021-8 ####[facility]ITALNCLI [id number] [place] [address] [place] Monocytes (Bld) [#/Vol] 0.37 10*3/uL Normal <0.87 [facility] Comment on above: Order Comment: Speci men Type: BLOOD SPECIMENOrdering Facility: [facility] Address: [address] [place] [address] Performed By: #### 5 7021-8 ####[facility] [id number] [place] [address] [place] Monocytes/100 WBC (Bld) 7.4 % Normal [facility] Comment on above: Order Comment: Speci men Type: BLOOD SPECIMENOrdering Facility: [facility] Address: [address] [place] [address] Performed By: #### 5 7021-8 ####[facility] [id number] [place] [address] [place] Neutrophils (Bld) [#/Vol] 3.43 10*3/uL Normal 1.45-7.50 [facility] Comment on above: Order Comment: Speci men Type: BLOOD SPECIMENOrdering Facility: [facility] Address: [address] [place] [address] Performed By: #### 5 7021-8 ####[facility] [id number] [place] [address] [place] Neutrophils/100 WBC (Bld) 68.6 % Normal [facility] Comment on above: Order Comment: Speci men Type: BLOOD SPECIMENOrdering Facility: [facility] Address: [address] [place] [address] Performed By: #### 5 7021-8 ####[facility] [id number] [place] [address] [place] Nucleated RBC (Bld) [#/Vol] 10*3/uL Normal <0.01 [facility] Comment on above: Order Comment: Speci men Type: BLOOD SPECIMENOrdering Facility: [facility] Address: [address] [place] [address] Performed By: #### 5 7021-8 ####[facility] NICHOLASNCLIA [id number] [place] [address] [place] Nucleated RBC/100 WBC (Bld) [Ratio] 0.0 /100 WBC Normal [facility] Comment on above: Order Comment: Speci men Type: BLOOD SPECIMENOrdering Facility: [facility] Address: [address] [place] [address] Performed By: #### 5 7021-8 ####[facility]ITALNCLIA [id number] [place] [address] [place] Platelet mean volume (Bld) [Entitic vol] 10.3 fL Normal 9.0-12.7 [facility] Comment on above: Order Comment: Speci men Type: BLOOD SPECIMENOrdering Facility: [facility] Address: [address] [place] [address] Performed By: #### 5 7021-8 ####[facility]ITALNCLIA [id number] [place] [address] [place] Platelets (Bld) [#/Vol] 156 10*3/uL Normal 150-400 [facility] Comment on above: Order Comment: Speci men Type: BLOOD SPECIMENOrdering Facility: [facility] Address: [address] [place] [address] Performed By: #### 5 7021-8 ####[facility]ITALNCLIA [id number] [place] [address] [place] RBC (Bld) [#/Vol] 3.68 10*6/uL Low 3.90-5.20 [facility] Comment on above: Order Comment: Speci men Type: BLOOD SPECIMENOrdering Facility: [facility] Address: [address] [place] [address] Performed By: #### 5 7021-8 ####[facility]ITALNCLIA [id number] [place] [address] [place] WBC (Bld) [#/Vol] 5.00 10*3/uL Normal 3.70-11.00 [facility] Comment on above: Order Comment: Speci men Type: BLOOD SPECIMENOrdering Facility: [facility] Address: [facility] [place] [address] Performed By: #### 5 7021-8 ####[facility]ENTERNCLIA [id number] [place] [address] [place] CNOVon 03-18-2024 CNOV Office Visit (UCWSTR ) BEATRIS FLETCHER ([id number]) 3 F Date Time Provider Department 03/18/24 12:45 PM NEETA REY [facility] During your visit today, we recorded the following information about you: Temperature Pulse Respiration Blood pressure 96.9 degrees 97/minute 20/minute 107/69 Weight 73.3 kg Neeta Rey PA-C 03/18/2024 1:36 PM Signed This note was created using [employer]. Subjective Beatris Fletcher is a 18 year [...] Take 50 mg by mouth once daily. Ftkauuwm-Pm-Aoc-Fe-FA tab Take 1 tablet by mouth once [...] AND RSV PCR, ROUTINE [SQCVFLRS] Order #: [id number]. #:[id number] STREP A MOLECULAR (POC) [[id number]] Order #: [id number]. #:[id number] (more content not included)... Normal [facility] Turner [facility]-18-2024 [facility] (JULIANGYRobertM[facility] BEATRIS FLETCHER ([id number]) 3 F Date Time Provider Department 03/18/24 ROBSON ROMERO During your visit today, we recorded the following information about you: Allergies As of Date: 03/18/2024 Noted Allergy Reaction LACTASE 06/26/2020 14 - Other: See Comments Date Reviewed: 03/18/2024 Reviewed by: Jessy Alicea LPN - Fully Assessed Reason for Visit: Results [95] Primary Visit Diagnosis:Elevated glucose tolerance test [R73.09] Order(s):GEST GLUC LYSSA, 3-HR, 100 GM, FASTING [SQGTGST3] Order #: [id number] FUTURE Prescriptions as of 03/18/2024 - aspirin, enteric coated (ECOTRIN LOW STRENGTH) 81 mg EC tablet Take 1 tablet by mouth once daily. - pyridoxine, vitamin B6, (VITAMIN B-6) 50 mg tablet Take 50 mg by mouth once daily. - Jajedcpg-Nw-Azd-Fe-FA tab Take 1 tablet by mouth once [...] Status:Closed by NORA HAILE on 03/18/24 Normal [facility] COVID AND INFLUENZA A/B AND RSV PCR, ROUTINEon 03-18-2024 SARS-CoV-2 (COVID-19) RNA RUPESH+probe Ql (Unsp spec) SARS-COV-2 (AGENT OF COVID-19) RNA: Not detected INFLUENZA A RNA: Not detected INFLUENZA B RNA: Not detected RESPIRATORY SYNCYTIAL VIRUS (RSV) RNA: Not detected Normal [facility] Comment on above: Performed By: #### C VFLRS ####[facility] LABCLIA [id number] [place] [address] [place] GESTATIONAL GLUCOSE SCREEN, 1-HOUR, 50 GRAM, NON-FASTINGon 03-18-2024 Glucose [Mass/Vol] 135 mg/dL High 74-134 [facility] Comment on above: Order Comment: Speci men Type: BLOOD SPECIMENOrdering Facility: [facility] Address: [address] [place] [address] Result Comment: [facility] Congress of Obstetricians and Gynecologists (Lois/Wade) guidelines state a gestational diabetes mellitus positive screen is made, in women not previously diagnosed with overt diabetes, when the 1 hr plasma glucose level is equal to or above 140 mg/dL. The [facility] [place] recommends a 135 mg/dL cutoff. Performed By: #### G LTGST ####[facility] [id number] [place] [address] [place] Reagin and Treponema pallidu m IgG and IgM [Interp]on 03-18-2024 T. pallidum IgG+IgM IA Ql (S) Non-Reactive Normal Nonreactive [facility] Comment on above: Order Comment: Speci men Type: BLOOD SPECIMENOrdering Facility: [facility] Address: [address] [place] [address] Performed By: #### 7 3752-8 ####[facility] LABCLIA [id number] [place] [address] [place] Reagin+T pallidum IgG+IgM Se rPl-Impon 03-18-2024 Reagin and Treponema pallidum IgG and IgM [Interp] Cannot exclude recent Treponemal infection if specimen collected within 7-10 days after appearance of suspect lesions or 2-3 weeks after an exposure. Clinical correlation is required. Normal [facility] Comment on above: Order Comment: Speci men Type: BLOOD SPECIMENOrdering Facility: [facility] Address: [address] [place] [address] Performed By: #### 7 3752-8 ####[facility] LABCLIA [id number] [place] [address] [place] STREP A MOLECULAR (POC)on Procedural Control Valid [facility] Strep A (POCT) Negative Negative [facility] OB Triage Physician Noteon 1 OB Triage Physician Note [facility] Medical Records Department [address] [place] [address] OB Triage Physician Note 03/13/24 0759 MR#: [id number] Acct: [id number] Name: BEATRIS FLETCHER Rep #: [id number] : 2005 18 From: Leena Gaytan CNM PCP: Dr. Rne Carlson MD Status:REG CLI Y Location: KD639-2 HPI - General HPI Narrative BEATRIS FLETCHER, is a 18 F who presents with decreased movement. Patient stated she has felt movement but not as much as usual. [facility] Medical History Encounter for screening for [...] additional details: gym, sports seatbelt use: always 03/13/24809 Date Leena Gaytan CNM Cosigner Signature (if applicable): Date CC: ELIAZAR Gaytan; Dr. Ren Carlson MD Signed ADDENDUM by ELIAZAR Gaytan on 03/13/24 at 09 Addendum RICK 06/11/24 27.1 weeks gestation NST reactive for gestational age 145 bpm/ mod. variability Patient has felt movement since arrival Reviewed kick counts / PTL precautions D/C home with follow up in office this week 03/13/24926 Date Leena Gaytan CNM cc: ELIAZAR Gaytan; Dr. Ren Carlson MD * Signed Normal [facility] Urinalysis, Completeon 03-13 AMORPHOUS 1+ Normal [facility] Comment on above: Order Comment: ERNESTO CTOR TO SPECIFY Performed By: #### L 400.0001 #### [facility] [address] [place], [address] Mucus Ql (Urine sed) 1+ /hpf Normal [facility] Comment on above: Order Comment: ERNESTO CTOR TO SPECIFY Performed By: #### L 400.0001 #### [facility] [address] [place], [address] WBC 0-5 SEEN Normal 0-5 [facility] Comment on above: Order Comment: ERNESTO CTOR TO SPECIFY Performed By: #### L 400.0001 #### [facility] [address] [place], [address] BACTERIA 3+ /hpf Normal None Seen [facility] Comment on above: Order Comment: ERNESTO CTOR TO SPECIFY Performed By: #### L 400.0001 #### [facility] [address] [place], [address] EPI,SQUAMOUS 5-10 SEEN Normal 5-10 [facility] Comment on above: Order Comment: ERNESTO CTOR TO SPECIFY Performed By: #### L 400.0001 #### [facility] [address] [place], [address] RBC 0 SEEN Normal 0-5 [facility] Comment on above: Order Comment: ERNESTO CTOR TO SPECIFY Performed By: #### L 400.0001 #### [facility] [address] [place], [address] CNOVon 02-25-2024 CNOV Office Visit (OBGYWM ) BEATRIS FLETCHER ([id number]) 3 F Date Time Provider Department 02/25/24 2:30 PM LEENA GAYTAN During your visit today, we recorded the following information about you: Blood pressure Weight 110/68 71.5 kg Leena Gaytan APRN.CNM 02/25/2024 4:34 PM Signed CP- CENTERING S: Beatris Fletcher [...] 02/25/2024 2:22 PM Signed SEQUENTIAL SCREENINGS The [facility] offers sequential screenings for women who [...] It will require an appointment with our electrical instrumentation technician. This is not an ultrasound performed [...] the above symptoms, contact our office at [phone] and ask to speak with a nurse. After hours, you can call doctors registry at [phone] OR call [facility] at [phone] and ask to have the doctor relationship mgr paged. If you consider this an emergency, dial 8-3-3 or go to your nearest emergency department. NEED HELP? Are you dealing with a violent or abusive relationship? Are you a victim of rape or sexual assult? Call [facility] ([place]) 24 hour Crisis Hotline: 507.877.4705 or 877-208-8910. MANUAL Your Guide to a Healthy manual is now on-line. Visit [email or web address] lthyPregnancyGuide to download your free copy Allergies [...] BLOOD COUNT AND DIFFERENTIAL [SQCBCDIF] Order #: [id number] FUTURE GESTATIONAL GLUCOSE SCREEN, 1-HOUR, 50 GRAM, NON-FASTING [SQGLTGST] Order #: [id number] FUTURE SYPHILIS TREPONEMAL W/REFLEX [SQSYPHTX] Order #: [id number] FUTURE aspirin, enteric coated (ECOTRIN LOW STRENGTH) [...] mouth every 6 hours as needed. - Ygormkkb-Pn-Tlw-Fe-FA tab Take 1 tablet by mouth once daily. With folic acid and DHA as covered by insurance. - VIT 10-IRON FUM-FOLIC ORAL Take by mouth. - ondansetron orally disintegrating (ZOFRAN ODT) 4 mg disintegrating tablet EVERY 8 HOURS N (more content not included)... [facility] Tele[facility] (OBGYWM) BEATRIS FLETCHER ([id number]) 3 F Date Time Provider Department 02/25/24 [...] mouth every 6 hours as needed. - Xjdktvbx-Ux-Dis-Fe-FA tab Take 1 tablet by mouth once [...] Status:Closed by LULÚ LACY on 02/26/24 Normal [facility] 01-26-2024 CNPN Telephone ([id number]) JUSTINEBEATRIS Tavon ([id number]) 3 F Date Time Provider Department 01/26/24 AMELIA ARMSTRONG [id number] During your visit today, we recorded the following information about you: Amelia Armstrong RN 01/26/2024 8:47 AM Signed 2nd risk assessment form submitted 01/26/2024. 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 - promethazine (PHENERGAN) 12.5 mg tablet Take 1 tablet by mouth every 6 hours as needed. - aspirin, enteric coated (ECOTRIN LOW STRENGTH) 81 mg EC tablet Take 1 tablet by mouth once daily. - Cciwnvia-Jp-Dvy-Fe-FA tab Take 1 tablet by mouth once [...] Status:Closed by AMELIA ARMSTRONG on 01/26/24 [facility] BEATR[facility] FLETCHER ([id number]) 3 F Date Time Provider Department 01/26/24 ANITRA CALDWELL During your visit today, we recorded the following information about you: Andrea Carlton, ADRIEN 01/26/2024 12:21 PM Signed ----- Message from Anitra Caldwell APRN.CNM sent at 01/26/2024 11:43 AM EDT ----- Anatomy ultrasound reviewed. Please assist in scheduling follow up US at 32 weeks for placental location. Please place copy in OB chart. Anitra Caldwell APRN.Andrea Moralez RN 01/26/2024 12:22 PM Signed Left message [...] 1 tablet by mouth once daily. - Verzfmtk-Qt-Nlw-Fe-FA tab Take 1 tablet by mouth once [...] Status:Closed by LULÚ LACY on 01/27/24 Normal [facility] Examination level ultrasound on 01-23-2024 Indication Standard [...] 13 oz EFW by: Hadlock (HC-AC-FL) Extended Assembler Motor Vehicle 6.0 mm CM 7.3 mm 97% Nicolaides [...] normal LVOT view: normal 3-vessel view: normal 6-bdyrmo-slytomf view: normal Heart / Thorax Situs: situs [...] Read By: Deandra Reza M.D. MATERNAL MEDICINE [facility] Radiology Study observation (narrative) [facility] ALPHA FETOPRO MATERNALon AFP, MATERNAL 0.67 MoM Normal [facility] Comment on above: Order Comment: Speci men Type: BLOOD SPECIMENOrdering Facility: [facility] Address: [address] [place] [address] Result Comment: 21.9 7 ng/mL Performed By: #### A FPMAT ####[facility] LABCLIA [id number] [place] [address] [place] DATE OF COLLECTION #1 12/23/23 Normal [facility] Comment on above: Order Comment: Speci men Type: BLOOD SPECIMENOrdering Facility: [facility] Address: [address] [place] [address] Performed By: #### A FPMAT ####[facility] LABCLIA [id number] [place] [id number] [place] DATE RECEIVED 12/24/23 Normal [facility] Comment on above: Order Comment: Speci men Type: BLOOD SPECIMENOrdering Facility: [facility] Address: [address] [place], [place] [address] Performed By: #### A FPMAT ####[facility] LABCLIA [id number] [place] [address] [place] RICK 06/11/24 Normal [facility] Comment on above: Order Comment: Speci men Type: BLOOD SPECIMENOrdering Facility: [facility] Address: [address] [place] [address] Performed By: #### A FPMAT ####[facility] LABCLIA [id number] [place] [address] [place] GESTATION AT DATE OF SAMPLE 15 weeks 4 days (by scan) Normal [facility] Comment on above: Order Comment: Speci men Type: BLOOD SPECIMENOrdering Facility: [facility] Address: [address] [place] [address] Performed By: #### A FPMAT ####[facility] LABCLIA [id number] [place] [address] [place] INSULIN DEPENDENT DIABETES None Normal [facility] Comment on above: Order Comment: Speci men Type: BLOOD SPECIMENOrdering Facility: [facility] Address: [address] [place] [address] Performed By: #### A FPMAT ####[facility] LABCLIA [id number] [place] [address] [place] IVF No Normal [facility] Comment on above: Order Comment: Speci men Type: BLOOD SPECIMENOrdering Facility: [facility] Address: [address] [place], [place] [address] Performed By: #### A FPMAT ####[facility] LABCLIA [id number] [place] [address] [place] MATERNAL AFP COMMENT See comments below Normal [facility] Comment on above: Order Comment: Kevin matthews Type: BLOOD SPECIMENOrdering Facility: [facility] Address: [address] [place] [address] Result Comment: INTE RPRETATION Screening result : Screen negative Risk of NTD : 1 in 5,400 Comment : The interpretation is for NTD only A screen negative result does not exclude the possibility of a neural tube defect, because screening does not detect all affected pregnancies Performed By: #### A FPMAT ####[facility] LABCLIA [id number] [place] [address] [place] MATERNAL AGE AT RICK 18 years Normal [facility] Comment on above: Order Comment: Kevin matthews Type: BLOOD SPECIMENOrdering Facility: [facility] Address: [address] [place] [address] Performed By: #### A FPMAT ####[facility] LABCLIA [id number] [place] [address] [place] PATIENT'S WEIGHT DAY OF COLLECTION 140 lb. Normal [facility] Comment on above: Order Comment: Kevin matthews Type: BLOOD SPECIMENOrdering Facility: [facility] Address: [address] [place] [address] Performed By: #### A FPMAT ####[facility] LABIA [id number] [place] [address] [place] INTERP-MATERNAL AFP Negative Normal Screen Negative [facility] Comment on above: Order Comment: Kevin matthews Type: BLOOD SPECIMENOrdering Facility: [facility] Address: [address] [place] [address] Performed By: #### A FPMAT ####[facility] LABCLIA [id number] [place] [address] [place] PREVIOUS NTD None Normal [facility] Comment on above: Order Comment: Speci men Type: BLOOD SPECIMENOrdering Facility: [facility] Address: [address] [place] [address] Performed By: #### A FPMAT ####[facility] LABCLIA [id number] [place] [address] [place] RISK OF NTD ;1:5400 Normal [facility] Comment on above: Order Comment: Speci men Type: BLOOD SPECIMENOrdering Facility: [facility] Address: [address] [place] [address] Performed By: #### A FPMAT ####[facility] LABCLIA [id number] [place] [address] [place] SAMPLE #1 [id number] Normal [facility] Comment on above: Order Comment: Speci men Type: BLOOD SPECIMENOrdering Facility: [facility] Address: [address] [place] [address] Performed By: #### A FPMAT ####[facility] LABCLIA [id number] [place] [address] [place] STAFF REVIEW (MATERNAL SCREENS) Reviewed by Dane Golden MD, Ph.D ([id number])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 [facility] 06-17-2024 13:21-0500 Body weight 72.58 kg Leena Gaytan FARM PRODUCT PURCHASER.CNM Work Phone: [facility] 06-17-2024 13:21-0500 Diastolic blood pressure 64 mm[Hg] Leena Gaytan FARM PRODUCT PURCHASER.CNM Work Phone: [facility] 06-17-2024 13:21-0500 Systolic blood pressure 96 mm[Hg] Leena Gaytan FARM PRODUCT PURCHASER.CNM Work Phone: [facility] 05-27-2024 14:00-0500 SaO2% (BldA) [Mass fraction] 99 % No Primary Care Physician [facility] 05-27-2024 08:00-0500 Body temperature 97 [degF] No Primary Care Physician [facility] 05-27-2024 08:00-0500 Diastolic blood pressure 71 mm[Hg] No Primary Care Physician [facility] 05-27-2024 08:00-0500 Heart rate 82 /min No Primary Care Physician [facility] 05-27-2024 08:00-0500 Respiratory rate 16 /min No Primary Care Physician [facility] 05-27-2024 08:00-0500 Systolic blood pressure 110 mm[Hg] No Primary Care Physician [facility] 05-25-2024 11:00-0500 Body mass index (BMI) [Percentile] Per age and sex 94.1 % No Primary Care Physician [facility] 05-25-2024 11:00-0500 Body mass index (BMI) [Ratio] 30.7 kg/m2 No Primary Care Physician [facility] 05-25-2024 11:00-0500 Body weight 81.3 kg No Primary Care Physician [facility] 05-18-2024 14:35-0500 Body mass index (BMI) [Ratio] 29.91 kg/m2 Laxmi Schuler MD Work Phone: [facility] 05-18-2024 14:35-0500 Body weight 80.29 kg Laxmi Schuler MD Work Phone: [facility] 05-18-2024 14:35-0500 Diastolic blood pressure 70 mm[Hg] Laxmi Schuler MD Work Phone: [facility] 05-18-2024 14:35-0500 Systolic blood pressure 110 mm[Hg] Lxami Schuler MD Work Phone: [facility] 05-11-2024 10:26-0500 Body mass index (BMI) [Ratio] 29.74 kg/m2 Anitra Caldwell FARM PRODUCT PURCHASER.CNM Work Phone: [facility] 05-11-2024 10:26-0500 Body weight 79.83 kg Anitra Caldwell FARM PRODUCT PURCHASER.CNM Work Phone: [facility] 05-11-2024 10:26-0500 Diastolic blood pressure 70 mm[Hg] Anitra Caldwell FARM PRODUCT PURCHASER.CNM Work Phone: [facility] 05-11-2024 10:26-0500 Systolic blood pressure 112 mm[Hg] Anitra Caldwell FARM PRODUCT PURCHASER.CNM Work Phone: [facility] 05-05-2024 14:18-0500 Body mass index (BMI) [Ratio] 29.41 kg/m2 Leena Plotkevin FARM PRODUCT PURCHASER.CNM Work Phone: [facility] 05-05-2024 14:18-0500 Body weight 78.93 kg Leena Gaytan FARM PRODUCT PURCHASER.CNM Work Phone: [facility] 05-05-2024 14:18-0500 Diastolic blood pressure 70 mm[Hg] Leena Plotts FARM PRODUCT PURCHASER.CNM Work Phone: [facility] 05-05-2024 14:18-0500 Systolic blood pressure 102 mm[Hg] Leena Plotts FARM PRODUCT PURCHASER.CNM Work Phone: [facility] 04-21-2024 14:04-0500 Body mass index (BMI) [Ratio] 28.22 kg/m2 Leena Plotts FARM PRODUCT PURCHASER.CNM Work Phone: [facility] 04-21-2024 14:04-0500 Body weight 75.75 kg Leena Plotts FARM PRODUCT PURCHASER.CNM Work Phone: [facility] 04-21-2024 14:04-0500 Diastolic blood pressure 68 mm[Hg] Leena Plotts FARM PRODUCT PURCHASER.CNM Work Phone: [facility] 04-21-2024 14:04-0500 Systolic blood pressure 106 mm[Hg] Leena Plotts FARM PRODUCT PURCHASER.CNM Work Phone: [facility] 03-29-2024 15:30-0500 Body mass index (BMI) [Ratio] 27.72 kg/m2 Leena Plotts FARM PRODUCT PURCHASER.CNM Work Phone: [facility] 03-29-2024 15:30-0500 Body weight 74.39 kg Leena Plotts FARM PRODUCT PURCHASER.CNM Work Phone: [facility] 03-29-2024 15:30-0500 Diastolic blood pressure 70 mm[Hg] Leena Plotts FARM PRODUCT PURCHASER.CNM Work Phone: [facility] 03-29-2024 15:30-0500 Systolic blood pressure 106 mm[Hg] Leena Plotts FARM PRODUCT PURCHASER.CNM Work Phone: [facility] 03-18-2024 12:42-0400 Body mass index (BMI) [Ratio] 27.31 kg/m2 Neeta Athy PA-C Work Phone: [facility] 03-18-2024 12:42-0400 Body temperature 96.91 [degF] Neeta Athy PA-C Work Phone: [facility] 03-18-2024 12:42-0400 Body weight 73.3 kg Neeta Athy PA-C Work Phone: [facility] 03-18-2024 12:42-0400 Diastolic blood pressure 69 mm[Hg] Neeta Athy PA-C Work Phone: [facility] 03-18-2024 12:42-0400 Heart rate 97 /min Neeta Athy PA-C Work Phone: [facility] 03-18-2024 12:42-0400 Respiratory rate 20 /min Neeta Athy PA-C Work Phone: [facility] 03-18-2024 12:42-0400 SaO2% (BldA) [Mass fraction] 99 % Neeta Athy PA-C Work Phone: [facility] 03-18-2024 12:42-0400 Systolic blood pressure 107 mm[Hg] Neeta Athy PA-C Work Phone: [facility] 03-16-2024 15:23-0400 Body mass index (BMI) [Ratio] 27.21 kg/m2 Anitra Caldwell FARM PRODUCT PURCHASER.CNM Work Phone: [facility] 03-16-2024 15:23-0400 Body weight 73.03 kg Anitra Caldwell FARM PRODUCT PURCHASER.CNM Work Phone: [facility] 03-16-2024 15:23-0400 Diastolic blood pressure 68 mm[Hg] Anitra Caldwell FARM PRODUCT PURCHASER.CNM Work Phone: [facility] 03-16-2024 15:23-0400 Systolic blood pressure 118 mm[Hg] Anitra Caldwell FARM PRODUCT PURCHASER.CNM Work Phone: [facility] 02-25-2024 14:23-0400 Body mass index (BMI) [Ratio] 26.63 kg/m2 Leena Gaytan FARM PRODUCT PURCHASER.CNM Work Phone: [facility] 02-25-2024 14:23-0400 Body weight 71.49 kg Leena Gaytan FARM PRODUCT PURCHASER.CNM Work Phone: [facility] 02-25-2024 14:23-0400 Diastolic blood pressure 68 mm[Hg] Leena Gaytan FARM PRODUCT PURCHASER.CNM Work Phone: [facility] 02-25-2024 14:23-0400 Systolic blood pressure 110 mm[Hg] Leena Gaytan FARM PRODUCT PURCHASER.CNM Work Phone: [facility] 01-23-2024 10:42-0400 Body mass index (BMI) [Ratio] 24.67 kg/m2 Anitra Caldwell FARM PRODUCT PURCHASER.CNM Work Phone: [facility] 01-23-2024 10:42-0400 Body weight 66.22 kg Anitra Caldwell FARM PRODUCT PURCHASER.CNM Work Phone: [facility] 01-23-2024 10:42-0400 Diastolic blood pressure 64 mm[Hg] Anitra Caldwell FARM PRODUCT PURCHASER.CNM Work Phone: [facility] 01-23-2024 10:42-0400 Systolic blood pressure 114 mm[Hg] Anitra Caldwell FARM PRODUCT PURCHASER.CNM Work Phone: [facility] 12-23-2023 10:21-0400 Body mass index (BMI) [Ratio] 23.66 kg/m2 Anitra Caldwell FARM PRODUCT PURCHASER.CNM Work Phone: [facility] 12-23-2023 10:21-0400 Body weight 63.5 kg Anitra Caldwell FARM PRODUCT PURCHASER.CNM Work Phone: [facility] 12-23-2023 10:21-0400 Diastolic blood pressure 68 mm[Hg] Anitra Caldwell FARM PRODUCT PURCHASER.CNM Work Phone: [facility] 12-23-2023 10:21-0400 Systolic blood pressure 100 mm[Hg] Anitra Caldwell FARM PRODUCT PURCHASER.CNM Work Phone: [facility] 12-12-2023 14:50-0400 Body mass index (BMI) [Ratio] 23.1 kg/m2 Joseph Hsu FARM PRODUCT PURCHASER.TELEVISION EQUIPMENT OPERATOR Work Phone: [facility] 12-12-2023 14:50-0400 Body temperature 98.01 [degF] Joseph Hsu APRN.TELEVISION EQUIPMENT OPERATOR Work Phone: [facility] 12-12-2023 14:50-0400 Body weight 62 kg Joseph Shadi FARM PRODUCT PURCHASER.TELEVISION EQUIPMENT OPERATOR Work Phone: [facility] 12-12-2023 14:50-0400 Diastolic blood pressure 77 mm[Hg] Joseph Hsu FARM PRODUCT PURCHASER.TELEVISION EQUIPMENT OPERATOR Work Phone: [facility] 12-12-2023 14:50-0400 Heart rate 102 /min Joseph Hsu FARM PRODUCT PURCHASER.TELEVISION EQUIPMENT OPERATOR Work Phone: [facility] 12-12-2023 14:50-0400 Respiratory rate 18 /min Jospeh Hsu FARM PRODUCT PURCHASER.TELEVISION EQUIPMENT OPERATOR Work Phone: [facility] 12-12-2023 14:50-0400 SaO2% (BldA) [Mass fraction] 99 % Joseph Hsu FARM PRODUCT PURCHASER.TELEVISION EQUIPMENT OPERATOR Work Phone: [facility] 12-12-2023 14:50-0400 Systolic blood pressure 116 mm[Hg] Joseph Hsu FARM PRODUCT PURCHASER.TELEVISION EQUIPMENT OPERATOR Work Phone: [facility] 11-28-2023 14:18-0400 Body mass index (BMI) [Ratio] 22.71 kg/m2 Anitraluciano Caldwell FARM PRODUCT PURCHASER.CNM Work Phone: [facility] 11-28-2023 14:18-0400 Body weight 60.96 kg Anitra Caldwell FARM PRODUCT PURCHASER.CNM Work Phone: [facility] 11-28-2023 14:18-0400 Diastolic blood pressure 58 mm[Hg] Anitra Caldwell FARM PRODUCT PURCHASER.CNM Work Phone: [facility] 11-28-2023 14:18-0400 Systolic blood pressure 98 mm[Hg] Anitra Caldwell FARM PRODUCT PURCHASER.CNM Work Phone: [facility] 11-14-2023 13:06-0400 Body height 163.8 cm Anitra Caldwell FARM PRODUCT PURCHASER.CNM Work Phone: [facility] 11-14-2023 13:06-0400 Body mass index (BMI) [Ratio] 22.81 kg/m2 Anitra Javi FARM PRODUCT PURCHASER.CNM Work Phone: [facility] 11-14-2023 13:06-0400 Body weight 61.24 kg Anitradrake Caldwell FARM PRODUCT PURCHASER.CNM Work Phone: [facility] 11-14-2023 13:06-0400 Diastolic blood pressure 60 mm[Hg] Anitra Caldwell FARM PRODUCT PURCHASER.CNM Work Phone: [facility] 11-14-2023 13:06-0400 Systolic blood pressure 98 mm[Hg] Anitra Caldwell FARM PRODUCT PURCHASER.CNM Work Phone: [facility] 10-25-2023 12:43-0400 Body temperature 97.7 [degF] Floyd Louise FARM PRODUCT PURCHASER.TELEVISION EQUIPMENT OPERATOR Work Phone: [facility] 10-25-2023 12:43-0400 Body weight 59.5 kg Floyd Louise FARM PRODUCT PURCHASER.TELEVISION EQUIPMENT OPERATOR Work Phone: [facility] 10-25-2023 12:43-0400 Diastolic blood pressure 72 mm[Hg] Floyd Louise FARM PRODUCT PURCHASER.TELEVISION EQUIPMENT OPERATOR Work Phone: [facility] 10-25-2023 12:43-0400 Heart rate 98 /min Floyd Louise FARM PRODUCT PURCHASER.TELEVISION EQUIPMENT OPERATOR Work Phone: [facility] 10-25-2023 12:43-0400 Respiratory rate 16 /min Floyd Louise FARM PRODUCT PURCHASER.TELEVISION EQUIPMENT OPERATOR Work Phone: [facility] 10-25-2023 12:43-0400 SaO2% (BldA) [Mass fraction] 99 % Floyd Louise FARM PRODUCT PURCHASER.TELEVISION EQUIPMENT OPERATOR Work Phone: [facility] 10-25-2023 12:43-0400 Systolic blood pressure 128 mm[Hg] Floyd Louise FARM PRODUCT PURCHASER.TELEVISION EQUIPMENT OPERATOR Work Phone: [facility] 08-27-2023 16:32-0400 Body temperature 98.29 [degF] Zhanna Hazel FARM PRODUCT PURCHASER.TELEVISION EQUIPMENT OPERATOR Work Phone: [facility] 08-27-2023 16:32-0400 Body weight 60.6 kg Zhanna Hazel FARM PRODUCT PURCHASER.TELEVISION EQUIPMENT OPERATOR Work Phone: [facility] 08-27-2023 16:32-0400 Diastolic blood pressure 64 mm[Hg] Zhanna Ilir TREVINON.TELEVISION EQUIPMENT OPERATOR Work Phone: [facility] 08-27-2023 16:32-0400 Heart rate 92 /min Zhanna Hazel FARM PRODUCT PURCHASER.TELEVISION EQUIPMENT OPERATOR Work Phone: [facility] 08-27-2023 16:32-0400 Respiratory rate 18 /min Zhannaluis angel Hazel APRN.TELEVISION EQUIPMENT OPERATOR Work Phone: [facility] 08-27-2023 16:32-0400 SaO2% (BldA) [Mass fraction] 97 % Zhannaluis angel Hazel APRN.TELEVISION EQUIPMENT OPERATOR Work Phone: [facility] 08-27-2023 16:32-0400 Systolic blood pressure 106 mm[Hg] Zhanna Hazel FARM PRODUCT PURCHASER.TELEVISION EQUIPMENT OPERATOR Work Phone: [facility] 06-03-2023 06:20-0500 Heart rate 82 /min [facility] 06-03-2023 06:20-0500 Respiratory rate 16 /min [facility] 06-03-2023 06:20-0500 SaO2% (BldA) [Mass fraction] 99 % [facility] 06-03-2023 05:00-0500 Diastolic blood pressure 70 mm[Hg] [facility] 06-03-2023 05:00-0500 Systolic blood pressure 99 mm[Hg] [facility] 06-03-2023 00:42-0500 Body height 160.02 cm [facility] 06-03-2023 00:42-0500 Body mass index (BMI) [Percentile] Per age and sex 82 % [facility] 06-03-2023 00:42-0500 Body mass index (BMI) [Ratio] 25.3 kg/m2 [facility] 06-03-2023 00:42-0500 Body temperature 97.7 [degF] [facility] 06-03-2023 00:42-0500 Body weight 64.9 kg [facility] 04-02-2023 14:35-0500 Body temperature 97.5 [degF] John Crowe MD Work Phone: [facility] 04-02-2023 14:35-0500 Body weight 63.41 kg John Crowe MD Work Phone: [facility] 04-02-2023 14:35-0500 Diastolic blood pressure 74 mm[Hg] John Crowe MD Work Phone: [facility] 04-02-2023 14:35-0500 Heart rate 96 /min John Crowe MD Work Phone: [facility] 04-02-2023 14:35-0500 Respiratory rate 21 /min John Crowe MD Work Phone: [facility] 04-02-2023 14:35-0500 SaO2% (BldA) [Mass fraction] 100 % John Crowe MD Work Phone: [facility] 04-02-2023 14:35-0500 Systolic blood pressure 120 mm[Hg] John Crowe MD Work Phone: [facility] 01-22-2023 18:15-0400 Body temperature 98.29 [degF] Floyd Pendlebury FARM PRODUCT PURCHASER.TELEVISION EQUIPMENT OPERATOR Work Phone: [facility] 01-22-2023 18:15-0400 Body weight 63.41 kg Floyd Pendlebury FARM PRODUCT PURCHASER.TELEVISION EQUIPMENT OPERATOR Work Phone: [facility] 01-22-2023 18:15-0400 Diastolic blood pressure 80 mm[Hg] Floyd Pendlebury FARM PRODUCT PURCHASER.TELEVISION EQUIPMENT OPERATOR Work Phone: [facility] 01-22-2023 18:15-0400 Heart rate 71 /min Floyd Pendlebury FARM PRODUCT PURCHASER.TELEVISION EQUIPMENT OPERATOR Work Phone: [facility] 01-22-2023 18:15-0400 Respiratory rate 18 /min Floyd Pendlebury FARM PRODUCT PURCHASER.TELEVISION EQUIPMENT OPERATOR Work Phone: [facility] 01-22-2023 18:15-0400 SaO2% (BldA) [Mass fraction] 97 % Floyd Pendlebury FARM PRODUCT PURCHASER.TELEVISION EQUIPMENT OPERATOR Work Phone: [facility] 01-22-2023 18:15-0400 Systolic blood pressure 110 mm[Hg] Floyd Pendlebury FARM PRODUCT PURCHASER.TELEVISION EQUIPMENT OPERATOR Work Phone: [facility] 11-21-2022 13:30-0400 Body temperature 98.71 [degF] Floyd Deloresphyllis FARM PRODUCT PURCHASER.TELEVISION EQUIPMENT OPERATOR Work Phone: [facility] 11-21-2022 13:30-0400 Body weight 61.78 kg Floydjuaquin Estrellaphyllis FARM PRODUCT PURCHASER.TELEVISION EQUIPMENT OPERATOR Work Phone: [facility] 11-21-2022 13:30-0400 Diastolic blood pressure 62 mm[Hg] Floyd Pendlebury FARM PRODUCT PURCHASER.TELEVISION EQUIPMENT OPERATOR Work Phone: [facility] 11-21-2022 13:30-0400 Heart rate 89 /min Floyd Pendwestonphyllis FARM PRODUCT PURCHASER.TELEVISION EQUIPMENT OPERATOR Work Phone: [facility] 11-21-2022 13:30-0400 Respiratory rate 18 /min Floyd Pendwestonphyllis FARM PRODUCT PURCHASER.TELEVISION EQUIPMENT OPERATOR Work Phone: [facility] 11-21-2022 13:30-0400 SaO2% (BldA) [Mass fraction] 98 % Floyd Estrellaphyllis FARM PRODUCT PURCHASER.TELEVISION EQUIPMENT OPERATOR Work Phone: [facility] 11-21-2022 13:30-0400 Systolic blood pressure 110 mm[Hg] Floyd Estrellaphyllis FARM PRODUCT PURCHASER.TELEVISION EQUIPMENT OPERATOR Work Phone: [facility] 04-08-2022 17:25-0500 Body temperature 98.8 [degF] Zhanna Hazel FARM PRODUCT PURCHASER.TELEVISION EQUIPMENT OPERATOR Work Phone: [facility] 04-08-2022 17:25-0500 Body weight 62.41 kg Zhanna Hazel FARM PRODUCT PURCHASER.TELEVISION EQUIPMENT OPERATOR Work Phone: [facility] 04-08-2022 17:25-0500 Diastolic blood pressure 76 mm[Hg] Zhanna Hazel FARM PRODUCT PURCHASER.TELEVISION EQUIPMENT OPERATOR Work Phone: [facility] 04-08-2022 17:25-0500 Heart rate 94 /min Zhanna Hazel FARM PRODUCT PURCHASER.TELEVISION EQUIPMENT OPERATOR Work Phone: [facility] 04-08-2022 17:25-0500 Respiratory rate 18 /min Zhanna Hazel APRN.TELEVISION EQUIPMENT OPERATOR Work Phone: [facility] 04-08-2022 17:25-0500 SaO2% (BldA) [Mass fraction] 99 % Zhanna Hazel APRN.TELEVISION EQUIPMENT OPERATOR Work Phone: [facility] 04-08-2022 17:25-0500 Systolic blood pressure 122 mm[Hg] Zhanna Hazel APRN.TELEVISION EQUIPMENT OPERATOR Work Phone: [facility] 01-01-2022 13:38-0400 Body height 160 cm Pac 2 Work Phone: [facility] 01-01-2022 13:38-0400 Body mass index (BMI) [Percentile] Per age and sex 89.08 % Pacc 2 Work Phone: [facility] 01-01-2022 13:38-0400 Body weight 68.04 kg Pacc 2 Work Phone: [facility] 01-01-2022 13:38-0400 Respiratory rate 16 /min Pacc 2 Work Phone: [facility] 03-20-2017 12:49-0400 BMI (Body Mass Index) 19.08 kg/m2 Javi WEAVER [facility] Work Phone: 03-20-2017 12:49-0400 Body Temperature 98.8 [degF] Javi WEAVER [facility] Work Phone: 03-20-2017 12:49-0400 BP Diastolic 72 mm[Hg] Javi WEAVER [facility] Work Phone: 03-20-2017 12:49-0400 BP Systolic 108 mm[Hg] Javi WEAVER [facility] Work Phone: 03-20-2017 12:49-0400 Height 154.94 cm Javi WEAVER [facility] Work Phone: 03-20-2017 12:49-0400 Pulse (Heart Rate) 97 /min Javi WEAVER [facility] Work Phone: 03-20-2017 12:49-0400 Respiratory Rate 14 /min Javi WEAVER [facility] Work Phone: 03-20-2017 12:49-0400 Weight 45.81 kg Javi WEAVER [facility] Work Phone: Encounters Encounter Date Encounter Type Care Provider Facility Start: 12-07-2024 End: 12-07-2024 Emergency department patient visit No Primary Care Physician -Emergency Department Work Phone: Start: 12-05-2024 End: 12-05-2024 ambulatory Samara Clifford RN NURSE OFFICE TECHNOLOGY INSTRUCTOR Comment on above: Vaginal Bleeding Start: 12-05-2024 End: 12-05-2024 Emergency department patient visit No Primary Care Physician -Emergency Department Work Phone: Start: 11-15-2024 End: 11-15-2024 Patient encounter procedure Leena Gaytan FARM PRODUCT PURCHASER.CNM Work Phone: OB/Gynecology Comment on above: Encounter for IUD in sertion (Primary Dx) Start: 11-15-2024 End: 11-15-2024 ambulatory LEENA GAYTAN Facility:[facility] Start: 11-14-2024 End: 11-15-2024 Refill Anitra Caldwell APRN.CNM Work Phone: OB/Gynecology Comment on above: Refill Request Start: 10-21-2024 End: 10-21-2024 Patient encounter procedure Zhanna Hazel APRN.TELEVISION EQUIPMENT OPERATOR Work Phone: [facility] Comment on above: Acute cough (Primary Dx); Rhinosinusitis Start: 10-21-2024 End: 10-21-2024 Subsequent hospital visit by physician Xr [facility] Work Phone: Radiology Comment on above: Acute cough [R05.1] Start: 10-21-2024 End: 10-21-2024 ambulatory ZHANNA HAZEL Facility:[facility] Start: 09-17-2024 End: 09-17-2024 ambulatory NATALIIA VAIL Facility:[facility] Start: 08-16-2024 End: 08-17-2024 Emergency department patient visit No Primary Care Physician -Emergency Department Work Phone: Start: 08-02-2024 End: 08-02-2024 Refill Leena Gaytan FARM PRODUCT PURCHASER.CNM Work Phone: OB/Gynecology Comment on above: Refill Request Start: 07-28-2024 End: 07-28-2024 ambulatory LEENA [facility] Facility:[facility] Start: 07-28-2024 End: 07-28-2024 Patient encounter procedure Leena Gaytan FARM PRODUCT PURCHASER.CNM Work Phone: OB/Gynecology Comment on above: care and examination (Primary Dx); Encounter for IUD insertion; Post depression; Generalized anxiety disorder Start: 06-25-2024 End: 06-25-2024 [facility] Facility:[facility] Start: 06-25-2024 End: 06-25-2024 Patient encounter procedure Leena Gaytan FARM PRODUCT PURCHASER.CNM Work Phone: OB/Gynecology Comment on above: Post depressi on (Primary Dx); Generalized anxiety disorder Start: 06-24-2024 End: 06-24-2024 Orders Only Nataliiayolanda Greeniain PAUL Work Phone: Psychiatry Comment on above: Post depressi on (Primary Dx) Appointment Start: 06-17-2024 End: [facility] Start: 06-17-2024 End: 06-17-2024 Patient encounter procedure Leena Gaytan FARM PRODUCT PURCHASER.CNM Work Phone: OB/Gynecology Comment on above: 2 [...] End: 05-26-2024 E-mail encounter from caregiver Anitra Javi CORDERO Work Phone: OB/Gynecology Start: 05-11-2024 End: 05-11-2024 ambulatory ANITRA CALDWELL Facility:[facility] Start: 05-11-2024 End: 05-11-2024 Patient encounter [...] in third trimester Start: 05-05-2024 End: 05-05-2024 ambulatory LEENA GAYTAN Facility:[facility] Start: 04-22-2024 End: 04-22-2024 Telephone encounter Amelia Armstrong RN Obstetrics/Gynecolog y 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 Facility:[facility] Start: 04-21-2024 End: 04-21-2024 Patient encounter procedure Leena Gaytan APRN.CNM Work Phone: OB/Gynecology Comment on above: 32 weeks gestation o f (Primary Dx); Encounter for supervision of normal first in third trimester; Low-lying placenta; Heartburn during in third trimester Encounter for ultras ound to check growth (Primary Dx); Suspected placental problem not found; 32 weeks gestation of Start: 03-29-2024 End: 03-29-2024 [facility] Facility:[facility] Start: 03-29-2024 End: 03-29-2024 Patient encounter procedure Leena Gaytan APRN.CNM Work Phone: OB/Gynecology Comment on above: 29 weeks gestation o f (Primary Dx); Encounter for supervision of normal first in third trimester; Rubella non-immune status, antepartum; Low-lying placenta Start: 03-25-2024 End: 03-25-2024 Telephone encounter Robson Romero APRN.CNP Work Phone: OB/Gynecology Comment on above: Results Start: 03-25-2024 End: 03-25-2024 ambulatory ROBSON ROMERO Facility:[facility] Start: 03-21-2024 End: 03-21-2024 Emergency department patient visit No Primary Care Physician Facility:[facility] Start: 03-19-2024 End: 03-19-2024 Telephone encounter Anitra Caldwell APRN.CNM Work Phone: OB/Gynecology Start: 03-18-2024 End: 03-18-2024 Telephone encounter Robson Romero APRN.CNP Work Phone: OB/Gynecology Comment on above: Results Start: 03-18-2024 End: 03-18-2024 [facility] Facility:[facility] Start: 03-18-2024 End: 03-18-2024 ambulatory ANITRA CALDWELL Facility:[facility] Start: 03-18-2024 End: 03-18-2024 Patient encounter procedure Neeta Rey PA-C Work Phone: [facility] Comment on above: Viral URI (Primary D x) Start: 03-16-2024 End: 03-16-2024 ambulatory ANITRA JAVI Facility:[facility] Start: 03-16-2024 End: 03-16-2024 Patient encounter procedure Anitra Caldwell APRN.CNM Work Phone: OB/Gynecology Comment on above: Supervision of dixie l first teen in second trimester (Primary Dx); Need for vaccination; Heartburn during in third trimester; Low-lying placenta; Rubella non-immune status, antepartum; Generalized anxiety disorder; History of depression Start: 03-13-2024 End: 03-13-2024 [facility] Start: 02-25-2024 End: 02-25-2024 Patient encounter procedure Leena Gaytan APRN.CNM Work Phone: OB/Gynecology Comment on above: 24 weeks gestation o f (Primary Dx); Supervision of normal first teen in second trimester; Generalized anxiety disorder; Rubella non-immune status, antepartum; History of depression; Encounter for care in first trimester of first ; Heartburn during in second trimester Start: 02-25-2024 End: 02-25-2024 ambulatory LEENA GAYTAN Facility:[facility] Start: 02-25-2024 End: 02-26-2024 Telephone encounter Leena Gaytan APRN.CNM Work Phone: OB/Gynecology Comment on above: Centering Start: 02-12-2024 End: 02-12-2024 Refill Anitra Caldwell APRN.CNM Work Phone: OB/Gynecology Comment on above: Refill Request Start: 01-26-2024 End: 01-27-2024 Telephone encounter Amelia Armstrong RN Maternal Medic ine Comment on above: 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 Start: 01-23-2024 End: 01-23-2024 ambulatory ANITRADRAKE CALDWELL Facility:[facility] Start: 01-23-2024 End: 01-23-2024 Patient encounter procedure Anitradrake Caldwell APRN.CNM Work Phone: OB/Gynecology Comment on [...] End: 01-21-2024 E-mail encounter from caregiver Anitradrake Caldewll APRN.CNM Work Phone: OB/Gynecology Start: 12-23-2023 End: 12-23-2023 ambulatory ANITRA CALDWELL Facility:[facility] Start: 12-23-2023 End: 12-23-2023 Patient encounter procedure Anitra Caldwell APRN.CNM Work Phone: OB/Gynecology Comment on above: Supervision of dixie bernard first teen in second trimester (Primary Dx); 15 weeks gestation of ; Nausea and vomiting during ; Generalized anxiety disorder; History of depression; Rubella non-immune status, antepartum Start: 12-12-2023 End: 12-12-2023 ambulatory ANITRA CALDWELL Facility:[facility] Start: 12-12-2023 End: 12-12-2023 Patient encounter procedure Joseph Hsu APRN.TELEVISION EQUIPMENT OPERATOR Work Phone: [facility] Comment on above: Nausea (Primary Dx) Start: 12-09-2023 Telephone encounter Anitra sigala FARM PRODUCT PURCHASER.CNM Work Phone: OB/Gynecology Comment on above: Nausea & Vomiting Start: 12-05-2023 Telephone encounter Anitra Gracie sta FARM PRODUCT PURCHASER.CNM Work Phone: OB/Gynecology Start: 11-28-2023 Telephone encounter Anitra sigala FARM PRODUCT PURCHASER.CNM Work Phone: OB/Gynecology Start: 11-28-2023 End: 11-28-2023 Patient encounter procedure Print Production Associate [facility] Work Phone: OB/Gynecology Comment on above: [...] antepartum Start: 11-13-2023 Telephone encounter Anitra sigala FARM PRODUCT PURCHASER.CNM Work Phone: OB/Gynecology Comment on above: Appointment Start: 11-11-2023 Telephone encounter Zayda Julio OA Ophthalmology Start: 11-11-2023 End: 11-11-2023 Patient encounter procedure Gretchen Brower OD Work Phone: Ophthalmology Comment on above: Myopia, bilateral (P rimary Dx) Start: 11-05-2023 End: 11-05-2023 Patient encounter procedure Joseph Hsu APRN.TELEVISION EQUIPMENT OPERATOR Work Phone: [facility] Comment on above: Dizziness (Primary D x); Nausea and vomiting, unspecified vomiting type Start: 10-25-2023 End: 10-25-2023 Office outpatient visit 15 minutes Floyd Louise FARM PRODUCT PURCHASER.TELEVISION EQUIPMENT OPERATOR Work Phone: [facility] Comment on above: Nausea (Primary Dx) Start: 09-02-2023 End: 09-02-2023 Admission to same day surgery center Raysa Jessica RAGMAN Work Phone: [facility] Comment on above: S/P knee surgery (Pr imary Dx) Start: 09-02-2023 End: 09-02-2023 ambulatory [facility] RAGMAN Work Phone: [facility] Start: 08-29-2023 End: 08-29-2023 Subsequent hospital visit by physician Mri [facility] (I-Stat/1.5t) Work Phone: Radiology Comment on above: S/P knee surgery [Z9 8.890] Start: 08-27-2023 End: 08-27-2023 Patient encounter procedure Zhanna Hazel APRN.TELEVISION EQUIPMENT OPERATOR Work Phone: [facility] Comment on above: Nausea (Primary Dx) Start: 08-26-2023 End: 08-26-2023 Admission to same day surgery center Zain Kearney PT Work Phone: [facility] Comment on above: S/P knee surgery (Pr imary Dx) Start: 08-26-2023 End: 08-26-2023 ambulatory Zain Maksim PT Work Phone: [facility] Start: 08-19-2023 End: 08-19-2023 Admission to same day surgery center Zain Kearney PT Work Phone: [facility] Comment on above: S/P knee surgery Start: 08-19-2023 End: 08-19-2023 ambulatory Zain Maksim PT Work Phone: [facility] Start: 07-31-2023 End: 07-31-2023 Patient encounter procedure Mayda Solares DO Work Phone: Orthopaedics Comment on above: S/P knee surgery (Pr imary Dx); Loose body in knee, left knee Start: 07-31-2023 End: 07-31-2023 Subsequent hospital visit by physician [facility] Mob Work Phone: Radiology Comment on above: Chronic pain of left knee [M25.562, G89.29] Start: 07-24-2023 Orders Only Mayda Solares DO Work Phone: Orthopaedics Comment on above: Chronic pain of left knee (Primary Dx) Start: 06-03-2023 End: 06-03-2023 Emergency department patient visit [facility] Work Phone: Start: 04-18-2023 Emergency department patient visit Facility:[facility] Start: 04-02-2023 End: 04-02-2023 Patient encounter procedure John Crowe MD Work Phone: [facility] Comment on above: Sore throat (Primary Dx) Start: 02-18-2023 End: 02-18-2023 Subsequent hospital visit by physician Xr [facility] Work Phone: Radiology Comment on above: Pain [R52] Start: 01-22-2023 End: 01-22-2023 Office outpatient visit 25 minutes Floyd Louise APRN.TELEVISION EQUIPMENT OPERATOR Work Phone: [facility] Comment on above: Rash (Primary Dx) Start: 11-21-2022 End: 11-21-2022 Office outpatient visit 15 minutes Floyd Louise APRN.TELEVISION EQUIPMENT OPERATOR Work Phone: [facility] Comment on above: Sore throat (Primary Dx); URI, acute Start: 08-02-2022 End: 08-02-2022 Patient encounter procedure Gretchen Brower OD Work Phone: Ophthalmology Comment on above: Myopia, bilateral (P rimary Dx) Start: 04-08-2022 End: 04-08-2022 Patient encounter procedure Zhanna Hazel APRN.TELEVISION EQUIPMENT OPERATOR Work Phone: [facility] Comment on above: Cat bite, initial en counter (Primary Dx) Start: 03-14-2022 End: 03-14-2022 Patient encounter procedure Mayda Solares DO Work Phone: Orthopaedics Comment on above: S/P knee surgery (Pr imary Dx) Start: 03-06-2022 End: 03-06-2022 ambulatory June Lemon PT [place] [facility] Start: 03-06-2022 End: 03-06-2022 Follow-up encounter June Lemon [facility] Comment on above: Patellar dislocation , left, subsequent encounter (Primary Dx); S/P orthopedic surgery, follow-up exam Start: 02-27-2022 End: 02-27-2022 ambulatory June Lemon PT [place] [facility] Start: 02-27-2022 End: 02-27-2022 Follow-up encounter June Lemon PT [facility] Comment on above: Patellar dislocation , left, subsequent encounter (Primary Dx); S/P orthopedic surgery, follow-up exam Start: 02-25-2022 End: 02-25-2022 ambulatory Raysa Bennett RAGMAN Work Phone: [facility] Start: 02-25-2022 End: 02-25-2022 Follow-up encounter Raysa Bennett RAGMAN Work Phone: [facility] Comment on above: Patellar dislocation , left, subsequent encounter (Primary Dx); S/P orthopedic surgery, follow-up exam Start: 02-22-2022 End: 02-22-2022 ambulatory June Lemon PT [place] [facility] Start: 02-22-2022 End: 02-22-2022 Follow-up encounter June Lemon PT [facility] Comment on above: Patellar dislocation , left, subsequent encounter (Primary Dx); S/P orthopedic surgery, follow-up exam Start: 02-04-2022 End: 02-04-2022 ambulatory June Lemon PT [place] [facility] Start: 02-04-2022 End: 02-04-2022 Follow-up encounter June Lemon PT [place] [facility] Comment on above: Patellar dislocation , left, subsequent encounter (Primary Dx); S/P orthopedic surgery, follow-up exam Start: 02-01-2022 End: 02-01-2022 Patient encounter procedure Mayda Solares DO Work Phone: Orthopaedics Comment on above: S/P knee surgery (Pr imary Dx); Dislocation of left patella, subsequent encounter; Patellar instability of left knee Start: 01-23-2022 Telephone encounter Mayda Solares DO Work Phone: Orthopaedics Comment on above: Patient Question Start: 01-01-2022 End: 01-01-2022 [facility] Work Phone: [facility] Start: 01-01-2022 End: 01-01-2022 ambulatory Pac 2 Work Phone: Pre Anesthesia Comment on above: Pre-op evaluation (P rimary Dx); Dislocation of left patella, subsequent encounter Start: 01-01-2022 End: 01-01-2022 Preprocedural examination done Pac 2 Work Phone: Pre Anesthesia Start: 12-19-2021 Patient encounter status Manny Arteaga MD Work Phone: [facility] Start: 12-19-2021 Telephone encounter Manny willson MD Work Phone: [facility] Comment on above: Schedule Surgery Start: 12-10-2021 End: 12-10-2021 ambulatory Manny Arteaga MD Work Phone: [email or web address] Comment on above: Chronic pain of left knee (Primary Dx); Patellar instability of left knee; 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; Loose body in knee, left knee; Dislocation of left patella, subsequent encounter Start: 12-10-2021 End: 12-10-2021 Telemedicine consultation with patient Manny Arteaga MD Work Phone: [facility] Start: 12-06-2021 Telephone encounter Mayda [...] with patient Mayda Solares DO Work Phone: [facility] Start: 10-16-2021 End: 10-16-2021 Subsequent hospital visit by physician [facility] (I-Stat/1.5t) Work Phone: Radiology Comment on above: Chronic pain of left knee [M25.562, G89.29] Start: 09-27-2021 Telephone encounter Mayda Solares DO Work Phone: Orthopaedics Comment on above: MCCO Maddit. 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 Start: 09-26-2021 End: 09-26-2021 Subsequent hospital visit by physician [facility] Work Phone: Radiology Comment on above: Chronic pain of left knee [M25.562, G89.29] Procedures Date Procedure Procedure Detail Performing Clinician Start: 10-21-2024 Radiologic exam ches t 2 views Zhanna Hazel APRN.CNP Work Phone: Start: 08-17-2024 Urnls dip stick/tabl et reagent auto microscopy No Primary Care Physician Start: 08-17-2024 Estimated creatinine clearance No Primary Care Physician Start: 08-17-2024 Computed tomography of abdomen and pelvis with intravenous contrast No Primary Care Physician Start: 05-18-2024 RSV VACCINE, BIVALEN T (ABRYSVO) Laxmi Schuler MD Work Phone: Start: 05-18-2024 Urnls dip stick/tabl et rgnt non-auto w/o micrscp Laxmi Schuler MD Work Phone: Start: 05-11-2024 Urnls dip stick/tabl et rgnt non-auto w/o micrscp Anitra Javi FARM PRODUCT PURCHASER.CNM Work Phone: Start: 04-21-2024 Us preg uterus after 1st trimest 1/ gestation Anitra Javi FARM PRODUCT PURCHASER.CNM Work Phone: Start: 03-18-2024 STREP A MOLECULAR (POC) Neeta Rey PA-C Work Phone: Start: 01-23-2024 Us preg uterus after 1st trimest 1/ gestation Anitra Javi FARM PRODUCT PURCHASER.CNM Work Phone: Start: 11-28-2023 Us nuchal translucency 1st gestation Anitra Javi FARM PRODUCT PURCHASER.CNM Work Phone: Start: 11-14-2023 BACTERIAL VAGINOSIS NAAT Anitra Javi FARM PRODUCT PURCHASER.CNM Work Phone: Start: 11-14-2023 Iadna chlamydia trac homatis amplified probe tq Anitra Javi FARM PRODUCT PURCHASER.CNM Work Phone: Start: 11-14-2023 Us uterus l imited 1/> fetuses Anitra Javi FARM PRODUCT PURCHASER.CNM Work Phone: Start: 08-29-2023 Mri any jt [...] foot complete minimum 3 views Zhanna Hazel APRN.TELEVISION EQUIPMENT OPERATOR Work Phone: Start: 11-21-2022 STREP A MOLECULAR (POC) Zhanna Hazel APRN.TELEVISION EQUIPMENT OPERATOR Work Phone: Start: 10-16-2021 Mri any jt [...] on knee S/P knee surgery Raysa Bennett RAGMAN Work Phone: Plan of Treatment Date Care Activity Detail Author Start: 08-01-2025 End: 08-01-2025 Patient encounter procedure 08/01/2025 11:30 AM EDT Office Visit OB/Gynecology [address] [place] [address] Leena Gaytan APRN.KMM [address] [place] [address] Annual OB/Gynecology Comment on above: Annual Start: 01-17-2025 Influenza vaccination [facility] Start: 12-13-2024 End: 12-13-2024 Patient encounter procedure 12/13/2024 1:45 PM EDT Office Visit OB/Gynecology [address] [place] [address] Leena Gaytan APRN.CNM [address] [place] [address] IUD check up OB/Gynecology Comment on above: IUD check up Start: 12-09-2024 End: 12-09-2024 [facility] 12/09/2024 10:00 AM EDT [facility] Psychiatry [address] [place] [address] Molly Husain APRN.TELEVISION EQUIPMENT OPERATOR [address] [place] [address] MDD (major depressive disorder), recurrent episode, moderate (HCC) [F33.1] Psychiatry Comment on above: MDD (major depressive disorder), recurre nt episode, moderate (HCC) [F33.1] Start: 12-07-2024 [facility] Start: 12-05-2024 [facility] Start: 11-15-2024 End: 11-15-2024 Patient encounter procedure 11/15/2024 4:00 PM EDT Office Visit OB/Gynecology [address] [place] [address] Leena Gaytan APRN.CNM [address] [place] [address] getting a copper iud OB/Gynecology Comment on above: getting a copper iud Start: 11-13-2024 GC (Gonorrhea) Screening (18-) GC (Gonorrhea) Screening (18-) [facility] Start: 11-13-2024 Screening for Chlamydia trachomatis Chlamydia Screening (18-24) [facility] Start: 11-11-2024 End: 11-11-2024 Patient encounter procedure 11/11/2024 12:30 PM EDT Office Visit [facility] Ophthalmology [address] [place] [address] Gretchen Brower, OD [address] [place] [address] Annual Eye Exam Ophthalmology Comment on above: Annual Eye Exam Start: 08-17-2024 [facility] Start: 08-11-2024 End: 08-11-2024 Patient encounter procedure 08/11/2024 2:45 PM EDT Office Visit OB/Gynecology [address] [place] [address] Robson Romero APRN.TELEVISION EQUIPMENT OPERATOR [address] [place] [address] IUD Insert OB/Gynecology Comment on above: IUD Insert Start: 07-29-2024 End: 07-29-2024 Patient encounter procedure 07/29/2024 3:30 PM EDT Office Visit OB/Gynecology [address] [place] [address] Leena Gaytan APRN.CNM [address] [place] [address] IUD Insert OB/Gynecology Comment on above: IUD Insert Start: 07-19-2024 End: 07-19-2024 Patient encounter procedure 07/19/2024 4:00 PM EST Office Visit OB/Gynecology [address] [place] [address] Leena Gaytan APRN.CNM [address] [place] [address] checkup OB/Gynecology Comment on above: checkup Start: 06-25-2024 End: 06-25-2024 Patient encounter procedure 06/25/2024 9:45 AM EST Office Visit OB/Gynecology [address] [place] [address] Leena Gaytan APRN.[facility] [address] [place] [address] PP f/u depression OB/Gynecology Comment on above: PP f/u depression Start: 05-27-[address] [facility] Start: 05-25-2024 Documentation procedure [facility] Start: 05-25-[address] [facility] Start: 05-25-2024 Application of ice collar, cap or bag [facility] Start: 05-25-2024 Catheterization of vein [facility] Start: 05-25-2024 Introduction of urinary catheter [facility] Start: 05-25-2024 Measuring intake and output [facility] Start: 05-25-[address] [facility] Start: 05-25-[address] [facility] Start: 05-25-2024 Provision of activity privileges [facility] Start: 05-25-2024 Vital signs measurements [facility] Start: 05-25-2024 End: 05-25-2024 [facility] Start: 05-25-[address] [facility] Start: 05-25-[address] [facility] Start: 05-18-2024 End: 05-18-2024 Patient encounter procedure 05/18/2024 2:50 PM EST Routine Office Visit OB/Gynecology [address] [place] [address] Laxmi Coleman MD [address] [place] [address] OB OB/Gynecology Comment on above: OB Start: 05-11-2024 End: 05-11-2024 Patient encounter procedure 05/11/2024 10:30 AM EST Routine Office Visit OB/Gynecology [address] [place] [address] Anitra Caldwell APRN.CNM [address] [place] [address] OB per gilbert OB/Gynecology Comment on above: OB per gilbert Start: 05-05-2024 End: 05-05-2024 Patient encounter procedure 05/05/2024 2:30 PM EST Office Visit OB/Gynecology [address] [place] [address] Leena Gaytan APRN.CNM [address] [place] [address] Centering OB/Gynecology Comment on above: Centering Start: 04-21-2024 End: 04-21-2024 Patient encounter procedure OB/Gynecology Comment on above: Centering placenta location Start: 04-16-2024 RSV Vaccine (1 - Risk 1-dose series) RSV Vaccine (1 - Risk 1-dose series) [facility] Start: 04-14-2024 End: 04-14-2024 Patient encounter procedure 04/14/2024 8:00 AM EST Routine Office Visit OB/Gynecology [address] [place] [address] Leena Gaytan APRN.CNM [address] [place] [address] OB OB/Gynecology Comment on above: OB Start: 03-29-2024 End: 03-29-2024 Patient encounter procedure 03/29/2024 3:15 PM EST Routine Office Visit OB/Gynecology [address] [place] [address] Leena Gaytan APRN.CNM [address] [place] [address] OB OB/Gynecology Comment on above: OB Start: 03-27-2024 End: 06-26-2024 CBC W Auto Differential panel - Blood COMPLETE BLOOD COUNT AND DIFFERENTIAL Lab Routine 24 weeks gestation of Supervision of normal first teen in second trimester Generalized anxiety disorder Rubella non-immune status, antepartum History of depression Expected: 03/27/2024 (Approximate), Expires: 06/26/2024 [facility] Work Phone: Comment on above: Expected: 03/27/2024 (Approximate), Expi res: 06/26/2024 Start: 03-27-2024 End: 06-26-2024 GESTATIONAL GLUCOSE SCREEN, 1-HOUR, 50 GRAM, NON-FASTING GESTATIONAL GLUCOSE SCREEN, 1-HOUR, 50 GRAM, NON-FASTING Lab Routine 24 weeks gestation of Supervision of normal first teen in second trimester Generalized anxiety disorder Rubella non-immune status, antepartum History of depression Expected: 03/27/2024 (Approximate), Expires: 06/26/[address] [facility] Comment on above: Expected: 03/27/2024 (Approximate), Expi res: 06/26/2024 Start: 03-27-2024 End: 06-26-2024 SYPHILIS TREPONEMAL W/REFLEX SYPHILIS TREPONEMAL W/REFLEX Lab Routine 24 weeks gestation of Supervision of normal first teen in second trimester Generalized anxiety disorder Rubella non-immune status, antepartum History of depression Expected: 03/27/2024 (Approximate), Expires: 06/26/[address] [facility] Comment on above: Expected: 03/27/2024 (Approximate), Expi res: 06/26/2024 Start: 03-25-2024 End: 03-25-2024 ambulatory 03/25/2024 12:00 PM EST Results Only [facility] Station [address] [facility] [place] [address] GEST GLUC LYSSA, 3-HR, 100 GM, FASTING [facility] Comment on above: GEST GLUC LYSSA, 3-HR, 100 GM, FASTING Start: 03-19-2024 End: 03-19-2024 ambulatory 03/19/2024 10:00 AM EDT Results Only [facility] [address] [facility] [place] [address] GEST GLUC LYSSA, 3-HR, 100 GM, FASTING [facility] Comment on above: GEST GLUC LYSSA, 3-HR, 100 GM, FASTING Start: 03-18-2024 End: 06-17-2024 GEST GLUC LYSSA, 3-HR, 100 GM, FASTING GEST GLUC LYSSA, 3-HR, 100 GM, FASTING Lab Routine Elevated glucose tolerance test Expected: 03/18/2024, Expires: 06/17/2024 [facility] Work Phone: Comment on above: Expected: 03/18/2024, Expires: Start: 03-17-2024 End: 03-17-2024 Patient encounter procedure 03/17/2024 2:30 PM EDT Office Visit OB/Gynecology [address] [place] [address] Leena Gaytan APRN.CN [address] [place] [address] Centering OB/Gynecology Comment on above: Centering Start: 02-18-2024 End: 02-18-2024 Patient encounter procedure 02/18/2024 2:30 PM EDT Office Visit OB/Gynecology [address] [place] [address] Anitra Caldwell APRN.CN [address] [place] [address] Centering OB/Gynecology Comment on above: Centering Start: 01-23-2024 End: 01-23-2024 Patient encounter procedure OB/Gynecology Comment on above: OB anatomy Start: 01-18-2024 Covid-19 Vaccine ( season) Covid-19 Vaccine ( season) [facility] Start: 01-18-2024 Covid-19 Vaccine ( season) Covid-19 Vaccine ( season) [facility] Start: 01-18-2024 Influenza vaccination [facility] Start: 12-23-2023 End: 03-23-2024 ALPHA FETOPRO MATERNAL [facility] Work Phone: Comment on above: Expected: 12/23/2023, Expires: 4 Start: 12-23-2023 End: 12-23-2023 Patient encounter procedure 12/23/2023 10:30 AM EDT Routine Office Visit OB/Gynecology [address] [place] [address] Anitra Caldwell APRN.CN [address] [place] [address] OB OB/Gynecology Comment on above: OB Start: 12-12-2023 End: 12-12-2023 Patient encounter procedure 12/12/2023 2:20 PM EDT Routine Office Visit OB/Gynecology [address] [place] [address] Tristan Hazel MD [address] [place] [address] new OB OB/Gynecology Comment on above: new OB Start: 11-28-2023 End: 02-27-2024 Bacteria identified in Urine by Culture URINE CULTURE Microbiology Routine Supervision of normal first teen in second trimester Expected: 11/28/2023, Expires: 02/27/[address] [facility] Comment on above: Expected: 11/28/2023, Expires: Start: 11-28-2023 End: 02-27-2024 CARRIER SCREEN, STANDARD [facility] Comment on above: Expected: 11/28/2023, Expires: 4 Start: 11-28-2023 End: 02-27-2024 Chromosome 21 trisomy [Presence] in Blood or Tissue by Cytogenetics [facility] Work Phone: Comment on above: Expected: 11/28/2023, Expires: 4 Start: 11-28-2023 End: 11-27-2024 OBSTETRIC ULTRASOUND WHI OBSTETRIC ULTRASOUND WHI Anc Imaging Routine Supervision of normal first teen in second trimester Expected: 11/28/2023, Expires: 11/27/[address] [facility] Comment on above: Expected: 11/28/2023, Expires: 5 Start: 11-28-2023 End: 11-28-2023 Patient encounter procedure OB/Gynecology Comment on above: Nuchal OB Start: 11-14-2023 End: 02-13-2024 Bacteria identified in Urine by Culture URINE CULTURE Microbiology Routine Encounter for care in first trimester of first Expected: 11/14/2023, Expires: 02/13/[address] [facility] Comment on above: Expected: 11/14/2023, Expires: Start: 11-14-2023 End: 02-13-2024 CBC panel - Blood by Automated count COMPLETE BLOOD COUNT Lab Routine Encounter for care in first trimester of first Expected: 11/14/2023, Expires: 02/13/2024 [facility] Work Phone: Comment on above: Expected: 11/14/2023, Expires: Start: 11-14-2023 End: 02-13-2024 Hemoglobin A1c in Blood HEMOGLOBIN A1C Lab Routine Encounter for care in first trimester of first Expected: 11/14/2023, Expires: 02/13/[address] [facility] Comment on above: Expected: 11/14/2023, Expires: Start: 11-14-2023 End: 02-13-2024 HEMOGLOBIN EVALUATION CASCADE HEMOGLOBIN EVALUATION CASCADE Lab Routine Encounter for care in first trimester of first Expected: 11/14/2023, Expires: 02/13/[address] [facility] Comment on above: Expected: 11/14/2023, Expires: Start: 11-14-2023 End: 02-13-2024 Hepatitis B virus surface Ag [Presence] in Serum HEPATITIS B SURFACE ANTIGEN Lab Routine Encounter for care in first trimester of first Expected: 11/14/2023, Expires: 02/13/[address] [facility] Comment on above: Expected: 11/14/2023, Expires: Start: 11-14-2023 End: 02-13-2024 Hepatitis C virus Ab [Presence] in Serum HEPATITIS C ANTIBODY IA WITH CONFIRMATION Lab Routine Encounter for care in first trimester of first Expected: 11/14/2023, Expires: 02/13/[address] [facility] Comment on above: Expected: 11/14/2023, Expires: Start: 11-14-2023 End: 02-13-2024 HIV 1+2 Ab [Presence] in Serum or Plasma by Immunoassay HIV 1/2 COMBO WITH REFLEX TO DIFFERENTIATION Lab Routine Encounter for care in first trimester of first Expected: 11/14/2023, Expires: 02/13/[address] [facility] Comment on above: Expected: 11/14/2023, Expires: 4 Start: 11-14-2023 End: 02-13-2024 RUBELLA IGG ANTIBODY RUBELLA IGG ANTIBODY Lab Routine Encounter for care in first trimester of first Expected: 11/14/2023, Expires: 02/13/[address] [facility] Comment on above: Expected: 11/14/2023, Expires: Start: 11-14-2023 End: 02-13-2024 SYPHILIS TOTAL W/REFLEX SYPHILIS TOTAL W/REFLEX Lab Routine Encounter for care in first trimester of first Expected: 11/14/2023, Expires: 02/13/[address] [facility] Comment on above: Expected: 11/14/2023, Expires: Start: 11-14-2023 End: 02-13-2024 TYPE + SCREEN TYPE + SCREEN Blood Bank Routine Encounter for care in first trimester of first Expected: 11/14/2023, Expires: 02/13/[address] [facility] Comment on above: Expected: 11/14/2023, Expires: Start: 11-14-2023 End: 11-14-2023 Patient encounter procedure 11/14/2023 1:00 PM EDT Initial Office Visit OB/Gynecology [address] [place], [place] [id number] Anitra Caldwell APRN.CN [address] [place] [address] new OB OB/Gynecology Comment on above: new OB Start: 11-11-2023 End: 11-11-2023 Patient encounter procedure 11/11/2023 10:30 AM EDT Office Visit [facility] Ophthalmology [address] [place] [address] Gretchen Brower, OD [address] [place] [address] 1 YR complete with cl eval Ophthalmology Comment on above: 1 YR complete with cl eval Start: 06-03-2023 [facility] Start: 06-03-[address] [facility] Start: 06-03-[address] [facility] Start: 05-19-2023 Behavioral Health Screening Behavioral Health Screening [facility] Start: 05-19-2023 Depression Assessment Depression Assessment [facility] Start: 01-17-2023 Covid-19 Vaccine ( season) Covid-19 Vaccine ( season) [facility] Start: 01-17-2023 Influenza vaccination [facility] Start: 2022 CHLAMYDIA SCREENING (18-24) CHLAMYDIA SCREENING (18-24) [facility] Start: 2022 Depression Screening Depression Screening [facility] Start: 2022 GC (GONORRHEA) SCREENING (18-24) GC (GONORRHEA) SCREENING (18-24) [facility] Start: 2022 HEPATITIS C SCREENING HEPATITIS C SCREENING [facility] Start: 2022 Hepatitis C screening [facility] [facility] Start: 2022 HIV SCREENING HIV SCREENING [facility] Start: 2022 HIV screening HIV Screening [facility] Start: 2022 Screening for Chlamydia trachomatis Chlamydia Screening (18-24) [facility] Start: 05-19-2022 DEPRESSION ASSESSMENT DEPRESSION ASSESSMENT [facility] Start: 01-17-2022 Influenza vaccination [facility] Start: 2020 Meningococcal B Vaccine (1 of 2 - Standard) Meningococcal B Vaccine (1 of 2 - Standard) [facility] Start: 2020 Meningococcal B Vaccine: Consider Based On Risk (1 of 2 - Patient Seeks Protection) Meningococcal B Vaccine: Consider Based On Risk (1 of 2 - Patient Seeks Protection) [facility] Start: 2020 MENINGOCOCCAL B: Consider based on risk (1 of 2 - Patient Seeks Protection) MENINGOCOCCAL B: Consider based on risk (1 of 2 - Patient Seeks Protection) [facility] Start: 2020 MENINGOCOCCAL CONJUGATE (1 - 2-dose series) MENINGOCOCCAL CONJUGATE (1 - 2-dose series) [facility] Start: 2020 Meningococcal Conjugate Vaccine (1 - 2-dose series) Meningococcal Conjugate Vaccine (1 - 2-dose series) [facility] Start: 08-11-2019 CHLAMYDIA SCREENING (<18) CHLAMYDIA SCREENING (<18) [facility] Start: 08-11-2019 GC (GONORRHEA) SCREENING (<18) GC (GONORRHEA) SCREENING (<18) [facility] Start: 08-11-2019 HPV Vaccine (1 - 3-dose series) HPV Vaccine (1 - 3-dose series) [facility] Start: 2018 PEDS TO ADULT TRANSITION ANNUAL ASSESSMENT PEDS TO ADULT TRANSITION ANNUAL ASSESSMENT [facility] Start: 03-20-2017 End: 03-20-2017 Appointment Appointment [facility] Work Phone: Start: 2016 Adult depression screening assessment DEPRESSION SCREENING [facility] Start: 2016 PEDS TO ADULT TRANSITION INITIAL DISCUSSION PEDS TO ADULT TRANSITION INITIAL DISCUSSION [facility] Start: 08-11-2015 HPV VACCINE (1 - 2-dose series) HPV VACCINE (1 - 2-dose series) [facility] Start: 2014 MENINGOCOCCAL B: Consider based on risk (1 of 2 - Risk Bexsero 2-dose series) MENINGOCOCCAL B: Consider based on risk (1 of 2 - Risk Bexsero 2-dose series) [facility] Start: 2013 HPV VACCINE (1 - 2-dose series) HPV VACCINE (1 - 2-dose series) [facility] Start: 2009 COVID-19 VACCINE (#1) COVID-19 VACCINE (#1) [facility] Start: 2008 POLIO (3 of 3 - 4-dose series) POLIO (3 of 3 - 4-dose series) [facility] Start: 02-10-2005 COVID-19 VACCINE (#1) COVID-19 VACCINE (#1) [facility] Bacteria identified in Urine by Culture URINE CULTURE Microbiology Routine Supervision of normal first teen in second trimester 15 weeks gestation of Nausea and vomiting during Generalized anxiety disorder History of depression 12/23/2023 11:05 AM EDT [facility] COVID & INFLUENZA A/ B & RSV PCR, ROUTINE COVID & INFLUENZA A/B & RSV PCR, ROUTINE Microbiology Routine Viral URI Ordered: 03/18/2024 [facility] Work Phone: Comment on above: Ordered: 03/18/2024 Insertion intrauteri ne device iud INSERT INTRAUTERINE DEVICE Procedures Routine Encounter for IUD insertion Ordered: 07/28/2024 [facility] Work Phone: Comment on above: Ordered: 07/28/2024 End: 08-29-2024 MR Knee - left WO contrast MRI KNEE WO IVCON LEFT Radiology Routine S/P knee surgery Loose body in knee, left knee 1 Occurrences starting 07/31/2023 until 08/29/2024 [facility] Work Phone: Comment on above: 1 Occurrences starting 07/31/2023 until 08/29/2024 Patient Education [facility] Work Phone: Patient referral [facility] Work Phone: ROUTINE, GR OUP B STREP PCR ROUTINE, GROUP B STREP PCR Microbiology Routine Encounter for supervision of normal first in third trimester 36 weeks gestation of 05/18/2024 2:58 PM EST [facility] Work Phone: UA DIP,URINE HCG (POC) UA DIP,UR INE HCG (POC) Lab Routine Encounter for IUD insertion Ordered: 11/15/2024 [facility] Work Phone: Comment on above: Ordered: 11/15/2024 URINE OB DIP B/O URINE OB DIP B/ O Lab Routine Supervision of normal first teen in second trimester Nausea and vomiting during Normal first with uncertain date of LMP, antepartum Generalized anxiety disorder History of depression 12 weeks gestation of Ordered: 11/28/[address] [facility] Comment on above: Ordered: 11/28/2023 URINE OB DIP B/O URINE OB DIP B/ O Lab Routine 34 weeks gestation of Encounter for supervision of normal first in third trimester Rubella non-immune status, antepartum Heartburn during in third trimester Ordered: 05/05/2024 [facility] Work Phone: Comment on above: Ordered: 05/05/2024 End: 08-22-2024 XR Knee - left 4 Views XR KNEE GENERAL 4V AP BOTH/PA BOTH/LAT/MERC LEFT Radiology Routine Chronic pain of left knee 1 Occurrences starting 07/24/2023 until 08/22/2024 [facility] Work Phone: Comment on above: 1 Occurrences starting 07/24/2023 until 08/22/2024 [facility] Immunizations Immunization Date Immunization Notes Care Provider [facility] 12-07-2024 tetanus toxoid, redu dagoberto diphtheria toxoid, and acellular pertussis vaccine, adsorbed No Primary Care Physician [facility] 05-26-2024 measles, mumps and rubella virus vaccine No Primary Care Physician [facility] 05-18-2024 respiratory syncytia l virus (RSV) vaccine, bivalent (ABRYSVO) Laxmi Lyssa Schuler MD Work Phone: [facility] 03-16-2024 tetanus toxoid, redu dagoberto diphtheria toxoid, and acellular pertussis vaccine, adsorbed Neeta Rey PA-C Work Phone: [facility] 04-03-2020 tetanus immune globulin Dipika Hazel APRN.TELEVISION EQUIPMENT OPERATOR Work Phone: [facility] 04-03-2020 tetanus toxoid, redu dagoberto diphtheria toxoid, and acellular pertussis vaccine, adsorbed Zhanna Hazel APRN.TELEVISION EQUIPMENT OPERATOR Work Phone: [facility] 06-10-2017 influenza virus vaccine, unspecified formulation John Crowe MD Work Phone: [facility] 02-04-2005 diphtheria, tetanus toxoids and acellular pertussis vaccine [employer] Work Phone: [facility] Work Phone: 02-04-2005 haemophilus influenz ae type b conjugate and Hepatitis B vaccine [employer] Work Phone: [facility] Work Phone: 02-04-2005 pneumococcal conjuga te vaccine, 7 valent [employer] Work Phone: [facility] Work Phone: 02-04-2005 poliovirus vaccine, inactivated [employer] Work Phone: [facility] Work Phone: 2004 diphtheria, tetanus toxoids and acellular pertussis vaccine [employer] Work Phone: [facility] Work Phone: 2004 haemophilus influenz ae type b conjugate and Hepatitis B vaccine [employer] Work Phone: [facility] 2004 haemophilus influenz ae type b vaccine, HbOC conjugate [employer] Work Phone: [facility] Work Phone: 2004 hepatitis B vaccine, pediatric or pediatric/adolescent dosage [employer] Work Phone: [facility] Work Phone: 2004 pneumococcal conjuga te vaccine, 7 valent [employer] Work Phone: [facility] Work Phone: 2004 poliovirus vaccine, inactivated [employer] Work Phone: [facility] Work Phone: Payers Date Payer Category Payer Private Health Insurance [id number] 2024 Self-pay [id number] 2023 Medicaid [id number] 2023 Medicaid [id number] 2022 Private Health Insurance [id number] 2022 Unknown [id number] 2021 Unknown LELO WAYE SS PPO [id number] 2021-Present [phone] [address] [place] [address] PPO [id number] 2021 Unknown LELO KIRK ACCE SS PPO [id number] 2021-Present [phone] [address] [place] [address] PPO [id number] [employer] ( and others) PRIME [id number] Unknown [id number] Unknown [id number] Unknown [id number] Unknown [id number] Unknown [id number] Unknown [id number] Unknown [id number] Social History Date Type Detail Facility Start: 06-10-2017 End: 12-07-2024 Tobacco smoking status VTIS Never smoked tobacco [facility] Start: 09-26-2021 End: 02-18-2023 Alcohol intake Current non-drinker of alcohol (finding) [facility] Start: 2005 Sex Assigned At Female [facility] Start: 09-16-2021 End: 04-08-2022 Exposure to SARS-CoV-2 (event) Not sure [facility] Start: 06-10-2017 End: 03-14-2022 Tobacco use and exposure Smokeless tobacco non-user [facility] Start: 01-22-2023 End: 02-18-2024 History of Social function [facility] Start: 01-22-2023 End: 02-18-2024 Tobacco use panel [facility] National Score (1-100), lower number is lower risk [address] [facility] Start: 01-10-2020 Gender identity Identifies as female gender (finding) [facility] Start: 06-03-2023 Tobacco smoking status NHIS Unknown if ever smoked [facility] Start: 11-14-2023 End: 11-15-2024 Alcohol intake Ex-drinker (finding) [facility] Start: 11-13-2023 Education [address] [facility] Start: 11-13-2023 Alcohol Comment occasionally [facility] Start: 09-19-[address] [facility] The thought of harming myself has occurred to me Sometimes [facility] Start: 08-17-2024 Sex Female (finding) [facility] NEGATED: Highlighted row Not [facility] Medical Equipment Procedure Code Equipment Code Equipment Origin al Text Equipment Identifier Dates [id number] Implant - [id number] Start: 01-18-2022 Comment on above: Description: Semi-T Screw Fastthread 7mm Biocomposite 20mm Interference Knee - [id number] Start: 01-18-2022 Device Dx Swivel ock Sl 3.5mm 8.5mm [place] Eyelet Sterile - [id number] Start: 01-18-2022 Device Dx Swivel ock Sl 3.5mm 8.5mm [place] Eyelet Sterile - [id number] Start: 01-18-2022 Goals Date Patient Goal Desired Activity /State Personal health goal Functional Status Date Assessment Result Facility 06-22-2014 Are you deaf, or do you have serious difficulty hearing No 06/22/2014 10:58 AM Jessica Eli RN No [facility] Work Phone: 06-22-2014 Are you blind, or do you have serious difficulty seeing, even when wearing glasses No 06/22/2014 10:58 AM Jessica Eli RN No [facility] 06-22-2014 Do you have serious difficulty walking or climbing stairs No 06/22/2014 10:58 AM Jessica Eli RN No [facility] 06-22-2014 Do you have difficul ty dressing or bathing No 06/22/2014 10:58 AM Jessica Eli RN No [facility] Mental Status Date Assessment Result Facility 06-22-2014 Because of a physica l, mental, or emotional condition, do you have serious difficulty concentrating, remembering, or making decisions No 06/22/2014 10:58 AM Jessica Eli RN No [facility] Clinical Notes 06-10-2017 to 12-05-2024 Telephone Encounter - Samara Clifford RN - 12/05/2024 9:58 AM EDTTelephone Encounter - Samara Clifford RN - 12/05/2024 9:58 AM EDTPatient Nixon Vaz, RT(R) - 10/21/2024 5:30 PM EDT Note Date & Type Note Facility 12-05-2024 Telephone encounter Note Reason for call: Patient calling with severe vaginal bleeding Outcome: Go to Ed now Reason for Disposition SEVERE vaginal bleeding (e.g., soaking 2 pads or tampons per hour and present 2 or more hours; 1 menstrual cup every 2 hours) Answer Assessment - Initial Assessment Questions 1. TYPE: copper IUD 2. START DATE 2 weeks ago 11/15 2024 Patient was told that she would a small amount of bleeding after insertion 3. LOCATION: uterine 4. SYMPTOM: heavy bleeding with small clots 5. ONSET: 3 days ago heavier than normal last 2 days but Sunday 12/03 last night patient states that she bled through pants and tampon in 5 minutes 6. VAGINAL BLEEDING: severe bleeding soaking 2 or more tampons per hour changing tampons every 30 minutes now 7. ABDOMEN OR PELVIC PAIN: none 8. : no LMP irregular October 28 Protocols used: Contraception - Implant Symptoms and Pdpmlssld-BXPMR-LP [facility] 12-05-2024 Miscellaneous Notes Reason for call: Patient calling with severe vaginal bleeding Outcome: Go to Ed now Reason for Disposition SEVERE vaginal bleeding (e.g., soaking 2 pads or tampons per hour and present 2 or more hours; 1 menstrual cup every 2 hours) Answer Assessment - Initial Assessment Questions 1. TYPE: copper IUD 2. START DATE 2 weeks ago 11/15 2024 Patient was told that she would a small amount of bleeding after insertion 3. LOCATION: uterine 4. SYMPTOM: heavy bleeding with small clots 5. ONSET: 3 days ago heavier than normal last 2 days but Sunday 12/03 last night patient states that she bled through pants and tampon in 5 minutes 6. VAGINAL BLEEDING: severe bleeding soaking 2 or more tampons per hour changing tampons every 30 minutes now 7. ABDOMEN OR PELVIC PAIN: none 8. : no LMP irregular October 28 Protocols used: Contraception - Implant Symptoms and Htsiebrdf-DLXDR-PI documented in this encounter [facility] 11-15-2024 Instructions Roro Sanz MA - 11/15/2024 [...] contact the office. documented in this encounter [facility] 11-15-2024 Note HNO ID: [id number] Author: LEENA GAYTAN APRN.CNM Service: ? Author Type: Accounts Payable Administrator Type: Progress Notes Filed: 11/15/2024 17:11 Note [...] IUD source: office provided IUD lot #: [id number] Exp date: 12/15/2026 UNIVERSAL PROTOCOL / SAFETY [...] menses for string check. Leena Gaytan APRN.CNM [facility] 11-15-2024 History of Presen t illness Narrative Beatris presents today for IUD [...] IUD source: office provided IUD lot #: [id number] Exp date: 12/15/2026 UNIVERSAL PROTOCOL / SAFETY [...] Leena Gaytan APRN.CNM documented in this encounter [facility] 10-21-2024 History of Presen t illness Narrative Radiology [...] PRESENTS WITH AN IMPLANTABLE OR ATTACHED CHAIN SAW DRIVER: No RADIOLOGY DEPARTMENT: General X-ray: Exam(s) Completed: Chest X-Ray PERIPHERAL IV DATA: Not applicable SIGNED BY: RT Abdirahman(Arthur) October 21, 2024 5:12 PM documented in this encounter [facility] 10-21-2024 Note HNO ID: [id number] Author: NIXON CARDENAS RT(Arthur) Service: ? Author Type: Regional Transportation Manager Type: Progress Notes Filed: 10/21/2024 17:19 Note [...] PRESENTS WITH AN IMPLANTABLE OR ATTACHED CHAIN SAW DRIVER: No RADIOLOGY DEPARTMENT: General X-ray: Exam(s) Completed: Chest X-Ray PERIPHERAL IV DATA: Not applicable SIGNED BY: RT Abdirahman(R) October 21, 2024 5:12 PM [facility] 10-21-2024 Note HNO ID: [id number] Author: ZHANNA HAZEL APRN.TELEVISION EQUIPMENT OPERATOR Service: ? Author Type: Nurse Practitioner Type: [...] history is provided by the patient. No pipe joints supervisor was used. Cough Review of Systems Constitutional: [...] Take 1 tablet by mouth once daily. Ycdgtdgu-Sz-Gou-Fe-FA tab Take 1 tablet by mouth once [...] Unremarkable. IMPRESSION IMPRESSION: No acute radiographic abnormality. Sexual Assault Counsellor: CHAPARRITA Transcribe Date/Time: Oct 21 2024 5:46P [...] Patient agreeable to care plan. Zhanna Hazel APRN.TELEVISION EQUIPMENT OPERATOR MDM Procedures [facility] 10-21-2024 History of Presen t illness Narrative [facility] Subjective Beatris [...] history is provided by the patient. No pipe joints supervisor was used. Cough Review of Systems Constitutional: [...] Take 1 tablet by mouth once daily. Nlrfkhxe-Sf-Dmk-Fe-FA tab Take 1 tablet by mouth once [...] Unremarkable. IMPRESSION IMPRESSION: No acute radiographic abnormality. Sexual Assault Counsellor: CHAPARRITA Transcribe Date/Time: Oct 21 2024 5:46P [...] Patient agreeable to care plan. Zhanna Hazel APRN.[facility] Procedures documented in this encounter [facility] 09-17-2024 Note HNO ID: [id number] Author: NATALIIA VAIL LISW Service: ? Author Type: Coating Machine Feeder Type: Progress Notes Filed: 09/17/2024 11:06 Note Text: GENERAL PSYCHOLOGY Session #: 1 (session count starts after PSYL NEW EVAL visit) Session conducted by phone due to poor Zoom aquatics group fitness instructor. She was unable to link to [employer] [...] MODALITIES: Solution Focused Psychotherapy PROGRESS TO DATE: Senior Living Progress: Condition at intake Short Term Condition: Progress GOALS/OBJECTIVES/INTERVENTIONS: Treatment plan: discussed asking OBGYN to send last refill to a different pharmacy Recommended M-IOP and she is interested Consult to Psychiatry placed Phone numbers were sent via [employer] She was advised of my BERT, though I will be available to her for the next month. Suicide protocol sent via [employer] Approximately 45 minutes were spent with the patient doing therapy. RADHA Fuentes [facility] 08-17-[address] [facility] 08-17-2024 Radiology Diagnostic study note [facility] Imaging Services [address] [place] [address] Abdomen/Pelvis W IV Cont ONLY MR#: [id number] Acct: [id number] Name: BEATRIS FLTECHER Rep #: [id number] : 2005 F 19 From: Yony Jasso MD PCP: Care Physician,No Primary Status: REG ER Study:Abdomen/Pelvis W IV Cont ONLY Date of E xam: 08/17/24 Exam# [id number] Ordering Dr: Enid Alfred MD PROCEDURE: ABDOMEN/PELVIS [...] stranding or urothelial thickening seen. Reading Location: [id number] CC: Dr. Blane Alfred MD; No Primary Care Physician ~ Sexual Assault Counsellor: Signed [facility] 07-28-2024 Note HNO ID: [id number] Author: LEENA GAYTAN APRN.CNM Service: ? Author Type: Accounts Payable Administrator Type: Progress Notes Filed: 07/28/2024 13:55 Note Text: VISIT Patient declined traffic operations engineer. Beatris Fletcher is a 18 year old year old here for 6 week visit. Started on Zoloft 25 mg PO daily 1 month ago and reports mood has drastically improved. Denies any feelings of depression and feels that anxiety has been decreased as well. 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 Has appointment with counseling. Delivery Summary: on 05/25/2024 by Marcos epidural at 37 wks, 4 days, 8:34 PM. Male Westley Reyes. ROS/ Recovery: Feeding: Bottle feeding problems: None Menses since delivery: none Menstrual pattern prior to : Irregular periods [place] since delivery: Not resumed Depression: denies, improved [...] discussed with the Patient or Patient's Authorized Avionics System Engineer. As applicable, any other physician, advance practice provider, medical student, or other health professional student that will be observing or involved in the sensitive examination for educational or training purposes was discussed with the Patient or Authorized Avionics System Engineer. The Patient or Authorized Avionics System Engineer has agreed to proceed with the sensitive [...] external genitalia normal, normal Bartholin's glands, urethra, Callender's glands, no vulvar lesions, no cervical lesions, [...] for insertion of IUD Leena Gaytan APRN.CNM [facility] 07-28-2024 History of Present illness Narrative VISIT Patient declined traffic operations engineer. Beatris Fletcher is a 18 year old year old here for 6 week visit. Started on Zoloft 25 mg PO daily 1 month ago and reports mood has drastically improved. Denies any feelings of depression and feels that anxiety has been decreased as well. 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 Has appointment with counseling. Delivery Summary: on 05/25/2024 by Marcos epidural at 37 wks, 4 days, 8:34 PM. Male Westley Reyes. ROS/ Recovery: Feeding: Bottle feeding problems: None Menses since delivery: none Menstrual pattern prior to : Irregular periods [place] since delivery: Not resumed Depression: denies, improved [...] discussed with the Patient or Patient's Authorized Avionics System Engineer. As applicable, any other physician, advance practice provider, medical student, or other health professional student that will be observing or involved in the sensitive examination for educational or training purposes was discussed with the Patient or Authorized Avionics System Engineer. The Patient or Authorized Avionics System Engineer has agreed to proceed with the sensitive [...] external genitalia normal, normal Bartholin's glands, urethra, Callender's glands, no vulvar lesions, no cervical lesions, [...] Leena Gaytan APRN.CNM documented in this encounter [facility] 07-15-2024 Note HNO ID: [id number] Author: SAROJ EARLY LISW Service: ? Author Type: Coating Machine Feeder Type: Progress Notes Filed: 07/15/2024 08:19 Note Text: -------- Summary: [facility] Consult Follow Up -------- Review of referral with patient. Was patient aware of [facility] referral placement by provider?Yes Is the patient currently connected for care : No If not connected to Care are they agreeable to referral?Yes If agreeable to referral, are they:Internal Comment: [facility] psychology Assisted in making appt at: [facility] psychiatry Appointment date and time: 06/24/24 Current priority status of the referral Medium Additional information SW did not speak to patient directly. Patient referred to [facility] 06/17/24 and had appointment with [facility] psychology 06/24/24. [facility] 06-25-2024 Instructions Leena Gaytan APRN.KMM - 06/25/2024 10:10 AM EST Here are some links for wonderful Providers here in the community and surrounding areas. Do not hesitate to contact their offices, many are offering virtual visits during this time. [phone] - [place] [facility] Hotline If you are in suicidal crisis, please call or text 0-620-903-TALK ( ) or visit the National Suicide Prevention Lifeline website. mchb.[place].gov [facility] Psychology, Psychiatry, Counseling Connect with therapist/ can do virtual visits [phone] Referral to the [facility] To schedule an appointment, please call the [facility] Appointment Line: [phone] option 1 [facility] [place], [place] [address] [place] [address] Lizette Willett[address] [place] [address] [facility] [address] [place], [place] [address] [facility] [address] [place] [address] Ladi Conteh MD [address] [place] [address] [facility] [address] [facility], [address] [place] [address] [facility] [address] [place] [address] [facility] Mcrae / Ivins [phone]/ [phone] Wendy Lopez [address] [facility] [phone] [facility] Mediation Mcrae / Shira [phone] Behavioral [facility] services of [facility] [address] [place] [address]/ [place] and grubbs [phone] Chantell Bo, JOHNNIE, CLC [facility] Family Therapy Workshops, telehealth and at home visits. [phone] HumanCHARMS PPEC counseling durango [address] [facility], [place], [place], [place], [place], [place], [facility], [place], [place], [place], [place], [place], [place], [facility], [place], [place] ,[facility], [place], [place],[facility], [facility], Rena Lara, [facility], [facility], [place] www.Happify [phone] Psychotherapy resources outside of [facility] are listed below [facility] ebindle Psychotherapy Web: https://www.Shopetti/ Support International Online Provider Directory https://Asanti/ Insight [facility] https://AtrecacoZhenXin/ Partners for Behavioral Health and Wellness Web: https://Dental Fix RX/ Center for Effective Living Web: https://www.effectiveDoveConvieneliving.Otologic Pharmaceutics/ LifeStance Web: https://Coin-Tech.Otologic Pharmaceutics/location/stat e/[place]/ [facility] Web: https://www.signaturewooster community hospitalinc.org/ [facility] Web: https://Robert Applebaum MD.org/ Recovery Resources Mental health and substance abuse help Web: https://www.SmartNewss.AAMPP & RESOURCES Support International Direct peer support and connection to professional resources Non-Emergency Helpline Phone: / Text: [phone] Web: https://www..net/ Online Provider Directory: https://Asanti/ Online Support Meetings: https://www..net/get-help/ eae-fkqiyt-mcmjuqo-meetings/ REY Baby and Fiberglass Model Maker Services Web: https://Arkadium/ MotherToKeVita Expert information on medication use during and Text: [phone] Web: https://Genmedica Therapeutics/ NATIONAL REGISTRY FOR PSYCHIATRIC MEDICATIONS Currently studying the safety of antidepressants, ADHD medications and atypical antipsychotics taken during TO PARTICIPATE CALL TOLL-FREE: Web: https://[facility].org/[facility]/pregnancyregistry/ Support Groups: [facility]- Follow on facebook Baby Bistro support group led by [facility] department Resilient Mamas - Support Group [facility].org The POEM support group [phone] Www.poemonline.org Follow on facebook - JOSIANE smith Online support meetings PSI https://www..net/get-help/ yur-alzlci-szddwli-meetings/ [facility] mommy and me virtual support group 11:30-1pm Support for mothers and new babies and toddlers [place] childbirth education: Childbirth @ccf.org or call [phone] CRISIS: CRISIS HOTLINE [phone], 911 or go to the nearest . [facility] [phone] / [facility] [phone] https://www.[facility].org Crisis text line text the word HOME to 543654 [facility] [address] [facility] [address] www.Immunovaccine.Otologic Pharmaceutics Samra Ku clinical counseling [address] [facility] [address] [place] [address] www.Milo Biotechnology.Otologic Pharmaceutics [phone] Holding space psychotherapy Raisa Perez ACADEMIC AFFAIRS VICE PRESIDENT ENROLLMENT MANAGEMENT DIRECTOR-S [address] [facility] www.REach [phone]/ [place] [phone] They all offer virtual. All work with trauma Support groups Online support meetings PSI https://www..net/get-help/ drr-dncalv-vthvhtx-meetings/ Here are the support groups they offer: Support of parents of 1 to 4 years old children POEM ( Outreach and Encouragement for Moms) offers free support for mothers experiencing depression, anxiety, and other mood and anxiety disorders. Masks are recommended but not required. No pre-registration required. Babies in arms welcome. meetings now take place on the and Friday of each month Location: [facility] [address] [place] [address] Room 122 (library room) 7-8:00 p.m. When you enter the [facility] parking lot off of [address] the entrance door closest to our meeting room is on the front of the building toward the right. For those who are more comfortable with a virtual platform, POEM offers online support group options several days of the week. To register for an online group or to find out more about POEM, website at: https://mhaohio.org/get-help/materna t-fnjoqa-ahwcsa/poem-services/ offer a confidential helpline: private Facebook group is called [facility] Here are the groups they offer: Traumatic childbirth resources: Http://pattch.org/ https://www.kathePetWorldmikaela. Otologic Pharmaceutics/ documented in this encounter [facility] 06-25-2024 Note HNO ID: [id number] Author: LEENA GAYTAN APRN.CNM Service: ? Author Type: Accounts Payable Administrator Type: Progress Notes Filed: 06/25/2024 10:12 Note Text: VIRTUAL VISIT PROGRESS NOTE This is a virtual visit using [employer] Zoom Video Visit. It required patient-provider interaction for the medical decision making as documented below. I have communicated my name and active licensure. The patient's identity and physical location were verified at the time of this visit. Either the patient or their legal key account representative has been informed of the risks and benefits of -- and alternatives to -- treatment through a remote evaluation and consents to proceed with the evaluation remotely. Beatris Fletcher is a 18 year old female seen for feelings of depression. She was referred to woman's behavioral health services for counseling and completed intake via phone yesterday. Received message from social media campaign manager: I just did a psych eval on [...] feel comfortable leaving baby with family or mercerizing range feeder. Initially thought she was just tired, but partner noticed the change in her behavior. Some days feeling sad, tearful for no reason. Appetite fluctuating. Able to care for self and infant. Reports 2 weeks ago having a migraine [...] anxiety disorder - ICD9: 300.02, ICD10: F41.1 Hamilton Depression Scale Total: 23 YOUNG- 12 Denies [...] patient/family/caregiver, and ordering medications, tests, or procedures [facility] 06-25-2024 History of Present illness Narrative VIRTUAL VISIT PROGRESS NOTE This is a virtual visit using EdCouraget Zoom Video Visit. It required patient-provider interaction for the medical decision making as documented below. I have communicated my name and active licensure. The patient's identity and physical location were verified at the time of this visit. Either the patient or their legal key account representative has been informed of the risks and benefits of -- and alternatives to -- treatment through a remote evaluation and consents to proceed with the evaluation remotely. Beatris Fletcher is a 18 year old female seen for feelings of depression. She was referred to woman's behavioral health services for counseling and completed intake via phone yesterday. Received message from social media campaign manager: I just did a psych eval on Beatris and I told her to contact you [facility] so you could possibly start her on [...] feel comfortable leaving baby with family or mercerizing range feeder. Initially thought she was just tired, but partner noticed the change in her behavior. Some days feeling sad, tearful for no reason. Appetite fluctuating. Able to care for self and infant. Reports 2 weeks ago having a migraine [...] anxiety disorder - ICD9: 300.02, ICD10: F41.1 Hamilton Depression Scale Total: 23 YOUNG- 12 Denies [...] tests, or procedures documented in this encounter [facility] 06-24-2024 Telephone encounter Note Spoke with patient. Scheduled for a virtual visit tomorrow. Amelia Martinez RN [facility] 06-24-2024 Miscellaneous Notes Spoke with patient. Scheduled for a virtual visit tomorrow. Amelia Martinez RN Left message for patient to call office. Andrea Carlton RN Leena Gaytan APRN.CNM (Accounts Payable Administrator) Mc Kay Stitcher Patient contacted by social work for women's [...] Tomorrow is fine! documented in this encounter [facility] 06-24-2024 Telephone encounter Note Left message for patient to call office. Andrea Carlton RN [facility] 06-24-2024 Telephone encounter Note Leena Gaytan APRN.CNM (Accounts Payable Administrator) Mc Kay Stitcher Patient contacted by [facility] womens behavioral health referral. Received this message: I just did a psych eval on Beatris and I told her to contact you [facility] so you could possibly start her on [...] visit with me scheduled. Tomorrow is fine! [facility] 06-24-2024 Note HNO ID: [id number] Author: LEENA GAYTAN APRN.CNM Service: ? Author Type: Accounts Payable Administrator Type: Progress Notes Filed: 06/24/2024 10:47 Note Text: Patient contacted by [facility] womens behavioral health referral. Received this message: I just did a psych eval on Beatris and I told her to contact you [facility] so you could possibly start her on [...] scheduled. Tomorrow is fine! Leena Gaytan APRN.CNM [facility] 06-24-2024 History of Present illness Narrative Patient contacted by [facility] womens behavioral health referral. Received this message: [...] Leena Gaytan APRN.CNM documented in this encounter [facility] 06-24-2024 Note HNO ID: [id number] Author: NATALIIA VAIL LISW Service: ? Author Type: Coating Machine Feeder Type: Progress Notes Filed: 09/17/2024 10:49 Note [...] agreement to participate Originating site for client [place] Originating site for provider [place] Site appropriate for privacy No equipment failures, provided psychotherapy I have communicated my name and active licensure. The patient's identity and physical location were verified at the time of this visit. Either the patient or their legal key account representative has been informed of the risks and [...] a copy of the consent form on Jack in the Boxmulberry. The patient consented to a virtual visit and their location was confirmed. PRESENT: Child AGE: [age] year old RACE: White MARITAL STATUS: Living with significant other CHILDREN: Yes, son age one month [place]. 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 PAST MEDICAL HISTORY Diagnosis Date Anemia Depression/anxiety Ganglion cyst of wrist, left Irregular menses Low-lying placenta 01/26/2024 04/21/24- Resolved. Leena Gaytan APRN.ELIAZAR Repeat growth US at 32 weeks. Anitra Caldwell APRN.ELIAZAR PAST SURGICAL HISTORY Procedure Laterality Date DENTAL SURGERY HX 2015 ORTHOPEDICS SURGERY HX knee torn meniscus WRIST Left cyst on left wrist Current Outpatient Medications Medication Sig Axxqaope-Hj-Gif-Fe-FA tab Take 1 tablet by mouth once [...] she felt hopele (more content not included)... [facility] 06-17-2024 Instructions Leena Gaytan APRN.KMM - 06/17/2024 2:16 PM EST Here are some links for wonderful Providers here in the community and surrounding areas. Do not hesitate to contact their offices, many are offering virtual visits during this time. 1-911-1-RSRG3LVJG - [place] Maternal Mental Health Hotline If you are in suicidal crisis, please call or text 8-464-506-TALK ( ) or visit the National Suicide Prevention Lifeline website. mchb.rusta.gov [facility] Behavior[facility] Psychology, Psychiatry, Counseling Connect with therapist/ can do virtual visits [phone] Referral to the [facility] Center for Women's Behavioral Health To schedule an appointment, please call the Center for Behavioral Health Appointment Line: [phone] option 1 [facility] [place] [address], [place] [address] Lizette [address] [place] [address] [phone] [place] [address] [address] [place] [address] [facility] [address] [place] [address] Ladi Conteh MD [address] [place] [address] [employer] [address] [facility], [address] [place] [address] [facility]iatric Services [address] [place] [address] [facility] Mcrae / Ivins [phone]/ [phone] [facility] [address] [facility] [phone] [facility] Med[facility] Mcrae / Shira [phone] [facility] [address] [place] [address]/ [place] and [place] [phone] Chantell Bo, JOHNNIE, CLC [facility] Family Therapy Workshops, telehealth and at home visits. [phone] [facility] 20 locations [place], [place], [place], [place], [place], [place], [place], [facility], [place], [place], [place], [place], [place], [place], [facility], [place], [place] ,[facility], [place], [place],[facility], [facility], Rena Lara, [facility], [facility], [place] www.presbyterian/st. luke's medical centerTruVitalsforks community hospital3Jam [phone] Psychotherapy resources outside of [facility] are listed below [employer] Psychotherapy Web: https://www.Shopetti/ Support International Online Provider Directory https://Asanti/ Insight [facility] https://insightcoProcess and Plant Sales.Otologic Pharmaceutics/ Partners for Behavioral Health and Wellness Web: https://Dental Fix RX/ Center for Effective Living Web: https://www.Colaboliving.Otologic Pharmaceutics/ LifeStance Web: https://Boomi/location/stat e/[place]/ [facility] Web: https://www.[facility].org/ The Centers Web: https://Robert Applebaum MD.org/ Recovery Resources Mental health and substance abuse help Web: https://www.Toopher & RESOURCES Support International Direct peer support and connection to professional resources Non-Emergency Helpline Phone: / Text: [phone] Web: https://www..net/ Online Provider Directory: https://Asanti/ Online Support Meetings: https://www..net/get-help/ zyz-zpfohb-jtwiqmj-meetings/ REY Baby and Fiberglass Model Maker Services Web: https://Arkadium/ MotherToBaby Expert information on medication use during and Text: [phone] Web: https://Genmedica Therapeutics/ NATIONAL REGISTRY FOR PSYCHIATRIC MEDICATIONS Currently studying the safety of antidepressants, ADHD medications and atypical antipsychotics taken during TO PARTICIPATE CALL TOLL-FREE: Web: https://[facility].org/[facility]/pregnancyregistry/ Support Groups: [facility] Women[facility]ilion- Follow on facebook Baby Bistro support group led by [facility] department Resilient Mamas - Support Group [facility].org The POEM support group [phone] Www.poemonline.org Follow on facebook - JOSIANE smith Online support meetings PSI https://www..net/get-help/ mwd-hgqvtm-plssima-meetings/ [facility] mommy and me virtual support group 11:30-1pm Support for mothers and new babies and toddlers [place] childbirth education: Childbirth @cc.org or call [phone] CRISIS: CRISIS HOTLINE [phone], 911 or go to the nearest ER. [facility] [phone] / [facility] [phone] https://www.vassar brothers medical centerrb.org Crisis text line text the word HOME to 527[address] [facility] [address] [facility] [address] www.SightCallalbertoAeluros Samra Ku clinical counseling [address] [facility] [address] [place] [address] www.Terracotta [phone] Holding space psychotherapy Raisa Perez ACADEMIC AFFAIRS VICE PRESIDENT ENROLLMENT MANAGEMENT DIRECTOR-S [address] [facility] www.REach [phone]/ [place] [phone] They all offer virtual. All work with trauma Support groups Online support meetings PSI https://www..net/get-help/ ttu-ljiilj-ldcvxbh-meetings/ Here are the support groups they offer: Support of parents of 1 to 4 years old children POEM ( Outreach and Encouragement for Moms) offers free support for mothers experiencing depression, anxiety, and other mood and anxiety disorders. Masks are recommended but not required. No pre-registration required. Babies in arms welcome. meetings now take place on the and Friday of each month Location: [facility] [address] [place] [address] Room 122 (library room) 7-8:00 p.m. When you enter the [facility] parking lot off of [address] the entrance door closest to our meeting room is on the front of the building toward the right. For those who are more comfortable with a virtual platform, POEM offers online support group options several days of the week. To register for an online group or to find out more about POEM, website at: https://mhaohio.org/get-help/materna k-qgqmkd-fchpkr/poem-services/ offer a confidential helpline: private Facebook group is called JOSIANE Smith Here are the groups they offer: Traumatic childbirth resources: Http://pattch.org/ https://www.kamiZevan LimitedtiburcioDoveConvieneGlobal RallyCross Championship/ documented in this encounter [facility] 06-17-2024 Note HNO ID: [id number] Author: LEENA GAYTAN APRN.CNM Service: ? Author Type: Accounts Payable Administrator Type: Progress Notes Filed: 06/17/2024 14:17 Note [...] Scared he will get sick, difficulty leaving OB Depression and Anxiety Screening- This Encounter [...] in parent's room, does not feel rested [place] since delivery: Not resumed Emotional support: Yes [...] visit and as needed Leena Gaytan APRN.CNM [facility] 06-17-2024 History of Present illness Narrative EARLY [...] in parent's room, does not feel rested [place] since delivery: Not resumed Emotional support: Yes [...] Leena Gaytan APRN.CNM documented in this encounter [facility] 05-27-2024 Note [facility] Medical Records Department [address] [place] [address] Discharge Summary 05/27/24 0711 MR#: [id number] Acct: [id number] Name: BEATRIS FLETCHER Rep #: [id number] : 2005 18 From: Amelia Maya MD PCP: Care Physician,No Primary Status:ADM IN Location: [id number] Providers Date of Admission: 05/25/24 Date of [...] 1-2 and 6 weeks or as needed. [phone] Meaningful Use Info Meaningful Use Meaningful Use [...] Maya MD; No Primary Care Physician Signed [facility] 05-26-2024 Note HNO ID: [id number] Author: LULÚ LACY RN Service: ? Author Type: Registered Nurse Type: Progress Notes Filed: 05/26/2024 08:50 Note Text: Patient delivered via by Dr. Schuler on 05/25/24 at [facility]. See OB history. Lulú Lacy RN [facility] 05-26-2024 History of Present illness Narrative Patient delivered via by Dr. Schuler on 05/25/24 at [facility]. See OB history. Lulú Lacy RN documented in this encounter [facility] 05-26-2024 Telephone encounter Note Closing encounter. Patient delivered. Ld Duckworth MA [facility] 05-26-2024 Miscellaneous Notes Closing encounter. Patient delivered. Ld Duckworth MA documented in this encounter [facility] 05-25-2024 Telephone encounter Note Patient went to l&d for evaluation [facility] 05-25-2024 Miscellaneous Notes Patient went to l&d [...] contractions remain regular. documented in this encounter [facility] 05-25-2024 Evaluation note Diagnosis Onset Date Resolution (spontaneous vaginal delivery) acute May 25 025 11:24am 37 weeks gestation of resolved May 25 11:24am History of depression resolved May 11:24am Rubella non-immune status, antepartum resolved May 25, 2024 11:24am [facility] Work Phone: [phone]) 363-206201-07-2025 Telephone encounter Note* Telephone Encounter - Nora [...] go to L&D in contractions remain regular. [facility]12-31-2024 Progress note* Quick Notes - Laxmi Coleman MD - 05/18/2024 2:55 PM EST DM-Pt doing well. Denies vaginal Bleeding, Leaking fluid, or regular Contractions. Pt reports good movement Physical Exam: Gen: female in no apparent distress Abd: soft, Gravid. Non tender to palpation. See flow sheet Vertex on bedside ultrasound. The sensitive examination was discussed with the Patient or Patient's Authorized Avionics System Engineer. Asapplicable, any other physician, advance practice provider, medical student, or other health professional student that will be observing or involved in the sensitive examination for educational or training purposes was discussed with the Patient or Authorized Avionics System Engineer. The Patient or Authorized Avionics System Engineer has agreed to proceed with the sensitive [...] GROUP B STREP PCR Laxmi Simons MD [facility] Work Phone: 1(673) 242-723312-31-2024 Miscellaneous Notes* Quick Notes - Laxmi Coleman MD - 05/18/2024 2:55 PM EST DM-Pt doing well. Denies vaginal Bleeding, Leaking fluid, or regular Contractions. Pt reports good movement Physical Exam: Gen: female in no apparent distress Abd: soft, Gravid. Non tender to palpation. See flow sheet Vertex on bedside ultrasound. The sensitive examination was discussed with the Patient or Patient's Authorized Avionics System Engineer. Asapplicable, any other physician, advance practice provider, medical student, or other health professional student that will be observing or involved in the sensitive examination for educational or training purposes was discussed with the Patient or Authorized Avionics System Engineer. The Patient or Authorized Avionics System Engineer has agreed to proceed with the sensitive [...] PCR Laxmi Simons MD [facility] Instructions* Patient Instructions* Buzz Muhammad MA - 05/18/2024 2:30 PM EST SEQUENTIAL SCREENINGS The [facility] offers sequential screenings for women who [...] testing. It will require an appointment withour electrical instrumentation technician. This is not an ultrasound performed [...] the above symptoms, contact our office at [phone] and ask to speak with anurse. After hours, you can call doctors registry at [phone] OR call [facility] at [phone] ask to have the doctor relationship mgr paged. If you consider this an emergency, dial 9--8 or go to your nearest emergency department. NEED HELP? Are you dealing with a violent or abusive relationship? Are you a victim of rape or sexual assult? Call [facility] ([place]) 24 hour Crisis Hotline: 114.791.1628 or 347-387-7137. MANUAL Your Guide to a Healthy manual is now on-line. Visit [email or web address]/HealthyPregnancyGuide to download your free copy documented in this encounterMer[facility]12[facility]2024 Miscellaneous Notes* Quick Notes - Anitra Caldwell APRN.CNM - 05/11/2024 10:30 AM EST BAKAIR-S: Beatris Fletcher is a 18 year old [...] size-date discrepancy in third trimester -Growth US / normal PTL precautions reviewed and when to call RTO in one week Anitra Caldwell APRN.CNM documented in this encounterMer[facility] Health St[facility]12-24-2024 Progress note* Quick Notes - Anitra Caldwell [...] RTO in one week Anitra Caldwell APRN.CNM [facility]12-24-2024 Instructions* Patient Instructions* Anitra Caldwell APRN.CNM - [...] Centers for Disease Control and Prevention: www.cdc.gov/groupbstrep/ March of Dimes http://www.marchofdimes.org//g anyi-t-bbzzl-infection.aspx Preparing for labor: Eat dates to promote [...] make an easy pie crust in the food and drug inspector. Add soaked dates to homemade nut butter for a sweet treat. Add dates to suzy homemade salad dressing. Add dates during easily with these yummy (paleo friendly) bars made from dates. What Is Red Raspberry Killian Tea? Red raspberry leaf tea comes from [...] , and too. How Much Red Raspberry Killian Tea to Drink? With your doctor or punch box tender s approval, start with 1 cup of [...] because of uterine cramping. Is Red Raspberry Killian Tea the Same as Raspberry Killian Tea? How About Plain Old Raspberry Tea? Sometimes. You really need to look at the ingredients to be sure. Note that there is no difference between red raspberry leaf and raspberry leaf. Re.nooble Op or Traditional Medicinals Raspberry Killian Tea are two good brands. The red [...] of RRLT outlined in this article. The edjing Circuit www.Tello I named this 'circuit' after my friend Hayley Sen, who shared and discussed it with me when I was working with a client whose labor seemed to be stalled out and no longer progressing... This circuit is useful to help get the baby lined up, ideally, in the Left Occiput Anterior (BERT) Position, both before labor begins and when [...] sideways, 2 at a time, (have a sole edge inker machine downstairs of you!), take a walk outside [...] the pelvis. 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 RESOURCES: perineal massage. [facility]: [facility]. [employer] Research UK and [employer] - Own work based on: Diagram showing the anatomy of the vulva ARTIE Mendez.svg by [employer].., CC BY-SA 3.0, https://commons.wikiSundance Diagnosticsa.org/w/index.php?verkk=47696254 [place] Database of Systematic Reviews . perineal massage for reducing perineal trauma. Faustino Systematic Review - Intervention Version published: 15 September 2012. https://doi-org.ccmain.floridanet.org/10.1002/34179400.DT074019.pub3 Galindo Cid et al. Effectiveness of perineal massage in reducing perineal trauma and post- morbidities: A randomized controlled trial: Journal of Obstetrics and Gynecology Research. 44 (8). 1414-1247. 2018. SIGNS AND SYMPTOMS OF LABOR 1. Contractions every 10 minutes or more often 2. Clear, pink, or brownish fluid (water) leaking from vagina 3. Feeling that baby is pushing down, pressure 4. Low, dull backache 5. Cramps that feel like a period 6. Cramps with or without diarrhea If you notice any of the above symptoms, contact our office at [phone] and ask to speak with anurse. After hours, you can call doctors registry at [phone] OR call [facility] at [phone] ask to have the doctor relationship mgr paged. If you consider this an emergency, dial 3-0-1 or go to your nearest emergency department. NEED HELP? Are you dealing with a violent or abusive relationship? Are you a victim of rape or sexual assult? Call [facility] ([place]) 24 hour Crisis Hotline: 916.651.3189 or 550-227-1231. MANUAL Your Guide to a Healthy manual is now on-line. Visit [email or web address] to download your free copy documented in this encounterMercy Health St[facility]12-18-2024 Instructions* Patient Instructions* Ld Duckworth MA - 05/05/2024 1:43 PM EST SEQUENTIAL SCREENINGS The [facility] offers sequential screenings for women who [...] testing. It will require an appointment withour electrical instrumentation technician. This is not an ultrasound performed [...] the above symptoms, contact our office at [phone] and ask to speak with anurse. After hours, you can call doctors registry at [phone] OR call [facility] at [phone] ask to have the doctor relationship mgr paged. If you consider this an emergency, dial 91-5 or go to your nearest emergency department. NEED HELP? Are you dealing with a violent or abusive relationship? Are you a victim of rape or sexual assult? Call [facility] ([place]) 24 hour Crisis Hotline: 458.686.7430 or 488-232-5639. MANUAL Your Guide to a Healthy manual is now on-line. Visit [email or web address] to download your free copy documented in this encounterMercy [facility]12-18-2024 Progress note* Quick Notes - Leena Gaytan [...] for YONY with GBS Leena Gaytan APRN.CNM [facility]12-18-2024 Miscellaneous Notes* Quick Notes - Leena Gaytan [...] GBS Leena Gaytan APRN.CNM documented in this encounterMercy Health St. [facility]12-05-2024 Telephone encounter Note * Telephone Encounter - Amelia Armstrong RN - 04/22/2024 9:22 AM EST 3rd risk assessment form submitted 04/22/2024. Amelia Armstrong RN [facility]12-05-2024 Miscellaneous Notes* Telephone Encounter - Amelia Armstrong RN - 04/22/2024 9:22 AM EST 3rd risk assessment form submitted 04/22/2024. Amelia Armstrong RN documented in this encounterMercy Health St. [facility]12-04-2024 Note Indication Follow-up evaluation for placental location [...] RDMS, RVT Read By: Deandra Reza M.D.MATERNAL [id number] Miscellaneous Notes* Quick Notes - Leena Gaytan APRN.CNM - 04/21/2024 2:30 PM EST - MISHEL S: Beatris Fletcher is a 18 [...] weeks Leena Gaytan APRN.CNM documented in this encounterMercy Health St. [facility]12-04-2024 Progress note* Quick Notes - Leena Gaytan [...] reviewed RTO 2 weeks Leena Gaytan APRN.CNM [facility]12-04-2024 Instructions* Patient Instructions* Ld Duckworth MA - 04/21/2024 2:04 PM EST SEQUENTIAL SCREENINGS The [facility] offers sequential screenings for women who [...] testing. It will require an appointment withour electrical instrumentation technician. This is not an ultrasound performed [...] the above symptoms, contact our office at [phone] and ask to speak with anurse. After hours, you can call doctors registry at [phone] OR call [facility] at [phone] ask to have the doctor relationship mgr paged. If you consider this an emergency, dial 9-1-6 or go to your nearest emergency department. NEED HELP? Are you dealing with a violent or abusive relationship? Are you a victim of rape or sexual assult? Call [facility] ([place]) 24 hour Crisis Hotline: 378.394.1181 or 227-506-1257. MANUAL Your Guide to a Healthy manual is now on-line. Visit [email or web address] to download your free copy documented in this encounterMercy Health St[facility]11-18-2024 NoteHNO ID: [id number] Author: ZAIN KEARNYE PT Service: ? Author Type: Physical Therapist Type: Progress Notes Filed: 04/05/2024 07:11 Note Text: 04/05/2024 [facility] PHYSICAL THERAPY DISCONTINUANCE [...] therapy or scheduled additional follow-up appointments. [facility]11-11-2024 Progress note* Quick Notes - Leena Gaytan [...] - RTO 2 weeks Leena Gaytan APRN.CNM [facility]11-11-2024 Miscellaneous Notes* Quick Notes - Leena Gaytan [...] weeks Leena Gaytan APRN.CNM documented in this encounterMercy Health St. [facility]11-11-2024 Instructions* Patient Instructions* Roro Sanz MA - 03/29/2024 3:30 PM EST SEQUENTIAL SCREENINGS The [facility] offers sequential screenings for women who [...] testing. It will require an appointment withour electrical instrumentation technician. This is not an ultrasound performed [...] the above symptoms, contact our office at [phone] and ask to speak with anurse. After hours, you can call doctors registry at [phone] OR call [facility] at [phone] ask to have the doctor relationship mgr paged. If you consider this an emergency, dial 9-1-8 or go to your nearest emergency department. NEED HELP? Are you dealing with a violent or abusive relationship? Are you a victim of rape or sexual assult? Call [facility] ([place]) 24 hour Crisis Hotline: 144.174.1905 or 756-521-4262. MANUAL Your Guide to a Healthy manual is now on-line. Visit [email or web address] to download your free copy documented in this encounterMercy Health [facility]11-07-2024 Telephone encounter Note * Telephone Encounter - Dyan Somers RN - 03/25/2024 3:04 PM EST Lab notified along with patient. Dyan Somers RN [facility]11-07-2024 Miscellaneous Notes* Telephone Encounter - Dyan Somers RN - 03/25/2024 3:04 PM EST Lab notified along with patient. Dyan Somers RN * Telephone Encounter - Robson Romero APRN.CNP - 03/25/2024 2:58 PM EST Even if 3 hour is elevated, passed GTT. 2 hour is 60. Patient does not need do have last draw - recommend eating something. Please call lab/notify patient. Robson Romero APRN.CNP documented in this encounterMercy Health St[facility]11-07-2024 Telephone encounter Note * Telephone Encounter - Robson Romero APRN.CNP - 03/25/2024 2:58 PM EST Even if 3 hour is elevated, passed GTT. 2 hour is 60. Patient does not need do have last draw - recommend eating something. Please call lab/notify patient. Robson Romero APRN.CNP [facility]11-01-2024 Telephone encounter Note* Telephone Encounter - Amelia Martinez RN - 03/19/2024 2:47 PM EDT Called patient. OB visit scheduled. Amelia Martinez RN [facility]11-01-2024 Miscellaneous Notes* Telephone Encounter - Amelia Martinez RN - 03/19/2024 2:47 PM EDT Called patient. OB visit scheduled. Amelia Martinez RN * Telephone Encounter - Anitra Caldwell APRN.CNM - 03/19/2024 1:01 PM EDT Can you please assist patient in getting YONY visit 2 weeks from last visit. She is not scheduled. This will need scheduled out side of centering due to gestational age. Thanks, Anitra Caldwell APRN.CNM documented in this encounterMer[facility] Health St[facility]11-01-2024 Telephone encounter Note * Telephone Encounter - Anitra Caldwell APRN.CNM - 03/19/2024 1:01 PM EDT Can you please assist patient in getting YONY visit 2 weeks from last visit. She is not scheduled. This will need scheduled out side of centering due to gestational age. ThanksAnitra APRN.CNM [facility]11-01-2024 Progress note* Quick Notes - Anitra Caldwell [...] RTO in 2 weeks Anitra Caldwell APRN.CNM [facility]11-01-2024 Miscellaneous Notes* Quick Notes - Anitra Caldwell APRN.CNM - 03/19/2024 12:55 PM EDT ISHAS: Beatris Fletcher is a [...] weeks Anitra Caldwell APRN.CNM documented in this encounterMercy Health St. [facility]10-31-2024 NoteHNO ID: [id number] Author: NEETA REY PA-C Service: ? Author Type: Physician Willow Machine Operator Type: Progress Notes Filed: 03/18/2024 13:36 Note Text: This note was created using Mill33riter. Subjective Beatris Fletcher is a 18 year [...] Take 50 mg by mouth once daily. Jwtncehv-Th-Kdj-Fe-FA tab Take 1 tablet by mouth once [...] ROUTINE - STREP A MOLECULAR (POC) [facility]10-31-2024 History of Present illness Narrative* Neeta Rey PA-C - 03/18/2024 1:34 PM EDT This note was created using Mill33riter. Subjective Beatris Fletcher is a 18 year [...] Take 50 mg by mouth once daily. Qbaacfxw-Wa-Raz-Fe-FA tab Take 1 tablet by mouth once [...] (POC) Neeta Rey PA-C documented in this encounterMercy Health St. [facility]10-29-2024 NoteHNO ID: [id number] Author: BUZZ MUHAMMAD MA Service: ? Author Type: Cafeteria Server Type: Progress Notes Filed: 03/19/2024 13:01 Note [...] severely ill: Yes Patient denies history of Guillain-[place] Ar[place] Syndrome (a severe paralytic illness): Yes Tdap Adacel injection was given without incident. See immunizations for details of immunizations administered today. VIS sheet provided: Yes Provider Caldwell was present in office at time of injection. Buzz Muhammad [facility]10-29-2024 History of Present illness Narrative* Buzz Muhammad [...] severely ill: Yes Patient denies history of Guillain-[place] Syndrome (a severe paralytic illness): Yes Tdap Adacel injection was given without incident. See immunizations for details of immunizations administered today. VIS sheet provided: Yes Provider Caldwell was present in office at time of injection. Buzz Muhammad MA documented in this encounterMercy Health St. [facility]10-29-2024 Instructions* Patient Instructions* Buzz Muhammad MA - 03/16/2024 3:20 PM EDT SEQUENTIAL SCREENINGS The [facility] offers sequential screenings for women who [...] testing. It will require an appointment withour electrical instrumentation technician. This is not an ultrasound performed [...] the above symptoms, contact our office at [phone] and ask to speak with anurse. After hours, you can call doctors registry at [phone] OR call [facility] at [phone] ask to have the doctor relationship mgr paged. If you consider this an emergency, dial 9--1 or go to your nearest emergency department. NEED HELP? Are you dealing with a violent or abusive relationship? Are you a victim of rape or sexual assult? Call [facility] ([place]) 24 hour Crisis Hotline: 171.259.7086 or 858-144-8823. MANUAL Your Guide to a Healthy manual is now on-line. Visit [email or web address] to download your free copy documented in this encounterMercy [facility]10-09-2024 Instructions* Patient Instructions* Nadine Teresa MA - 02/25/2024 2:22 PM EDT SEQUENTIAL SCREENINGS The [facility] offers sequential screenings for women who [...] testing. It will require an appointment withour electrical instrumentation technician. This is not an ultrasound performed [...] the above symptoms, contact our office at [phone] and ask to speak with anurse. After hours, you can call doctors [facility] at [phone] OR call [facility] at [phone] ask to have the doctor relationship mgr paged. If you consider this an emergency, dial 5-5-8 or go to your nearest emergency department. NEED HELP? Are you dealing with a violent or abusive relationship? Are you a victim of rape or sexual assult? Call [facility] ([facility] 24 hour Crisis Hotline: 684.331.9160 or 632-203-4165. MANUAL Your Guide to a Healthy manual is now on-line. Visit [email or web address] to download your free copy documented in this encounterMer[facility]10-09-2024 Telephone encounter Note * Telephone Encounter - [...] scheduled with the correct #5 centering group[address] [facility]10-09-2024 Miscellaneous Notes* Telephone Encounter - [address] [...] correct #5 centering group. documented in this encounterMercy Health St. [facility]10-09-2024 Progress note* Quick Notes - Leena Gaytan [...] - RTO 4 weeks Leena Gaytan APRN.CNM [facility]10-09-2024 Miscellaneous Notes* Quick Notes - Leena Gaytan [...] weeks Leena Gaytan APRN.CNM documented in this encounterMer[facility]09-10-2024 Telephone encounter Note * Telephone Encounter - Lulú Lacy RN - 01/27/2024 1:45 PM EDT Patient notified. Lulú Lacy RN [facility]09-10-2024 Miscellaneous Notes* Telephone Encounter - Lulú Lacy [...] chart. Anitra Caldwell APRN.CNM documented in this encounterMercy Health St. [facility]09-09-2024 Telephone encounter Note * Telephone Encounter - Andrea Carlton RN - 01/26/2024 12:21 PM EDT Left message for patient to call office. Andrea Carlton RN [facility]09-09-2024 Telephone encounter Note* Telephone Encounter - Andrea Carlton RN - 01/26/2024 12:21 PM EDT ----- Message from Anitra Caldwell APRN.CNM sent at 01/26/2024 11:43 AM EDT ----- Anatomy ultrasound reviewed. Please assist in scheduling follow up US at 32 weeks for placental location. Please place copy in OB chart. Anitra Caldwell APRN.CNM [facility]09-09-2024 Telephone encounter Note* Telephone Encounter - Amelia Armstrong RN - 01/26/2024 8:46 AM EDT 2nd risk assessment form submitted 01/26/2024. Amelia Armstrong RN [facility]09-09-2024 Miscellaneous Notes* Telephone Encounter - Amelia Armstrong RN - 01/26/2024 8:46 AM EDT 2nd risk assessment form submitted 01/26/2024. Amelia Armstrong RN documented in this encounterMer[facility]. [facility]09-06-2024 Instructions* Patient Instructions* Anitra Caldwell APRN.CNM - [...] the above symptoms, contact our office at [phone] and ask to speak with anurse. After hours, you can call doctors registry at [phone] OR call [facility] at [phone] ask to have the doctor relationship mgr paged. If you consider this an emergency, dial 3-0-6 or go to your nearest emergency department. NEED HELP? Are you dealing with a violent or abusive relationship? Are you a victim of rape or sexual assult? Call [facility] ([place]) 24 hour Crisis Hotline: 248.705.3093 or 877-892-9315. MANUAL Your Guide to a Healthy manual is now on-line. Visit [email or web address] to download your free copy documented in this encounterMer[facility]09-06-2024 Progress note* Quick Notes - Anitra Caldwell [...] call -RTO in 4wk Anitra Caldwell APRN.CNM [facility]09-06-2024 Miscellaneous Notes* Quick Notes - Anitra Caldwell [...] 4wk Anitra Caldwell APRN.CNM documented in this encounterMer[facility]08-06-2024 Progress note* Quick Notes - Anitra Caldwell [...] call -RTO in 4wk Anitra Caldwell APRN.CNM [facility]08-06-2024 Miscellaneous Notes* Quick Notes - Anitra Caldwell [...] 4wk Anitra Caldwell APRN.CNM documented in this encounterMer[facility]08-06-2024 Instructions* Patient Instructions* Ld Duckworth MA - 12/23/2023 10:16 AM EDT SEQUENTIAL SCREENINGS The [facility] offers sequential screenings for women who [...] testing. It will require an appointment withour electrical instrumentation technician. This is not an ultrasound performed [...] the above symptoms, contact our office at [phone] and ask to speak with anurse. After hours, you can call doctors registry at [phone] OR call [facility] at [phone] ask to have the doctor relationship mgr paged. If you consider this an emergency, dial 9-1-1 or go to your nearest emergency department. NEED HELP? Are you dealing with a violent or abusive relationship? Are you a victim of rape or sexual assult? Call [facility] ([place]) 24 hour Crisis Hotline: 331.708.3513 or 750-419-9106. MANUAL Your Guide to a Healthy manual is now on-line. Visit [email or web address] to download your free copy documented in this encounterMer[facility]07-26-2024 NoteHNO ID: [id number] Author: JOSEPH HSU APRN.TELEVISION EQUIPMENT OPERATOR Service: ? Author Type: Nurse Practitioner Type: Progress Notes Filed: 12/12/2023 15:31 Note Text: Subjective HPI HPI Beatris Fletcher is a 18 year old female who presents today for CC of nausea/vomiting, is 14 weeks . Currently prescribed multiple anti nausea medications from pad tufter. Tolerating fluids/solids, last void was just before [...] Take 1 tablet by mouth once daily. Kxfceovu-Om-Sls-Fe-FA tab Take 1 tablet by mouth once [...] ICD10: R11.0 Continue taking medication ordered by road supervisor Red flag s/s discussed Work note provided Joseph Hsu APRN.[facility]07-26-2024 History of Present illness Narrative* Joseph Hsu APRN.[facility] - 12/12/2023 3:05 PM EDT Subjective HPI HPI Beatris Fletcher is a 18 year old female who presents today for CC of nausea/vomiting, is 14 weeks. Currently prescribed multiple anti nausea medications from pad tufter. Tolerating fluids/solids, last void was just before [...] Take 1 tablet by mouth once daily. Ngxfakxl-Dz-Ejj-Fe-FA tab Take 1 tablet by mouth once [...] ICD10: R11.0 Continue taking medication ordered by road supervisor Red flag s/s discussed Work note provided Joseph Hsu APRN.CLAUDIA documented in this encounterMer[facility]07-[facility]-2024 Telephone encounter Note * Telephone Encounter - Andrea Carlton RN - 12/10/2023 9:34 AM EDT Pt notified and voiced understanding. Andrea Carlton RN [facility]07-24-2024 Miscellaneous Notes* Telephone Encounter - Andrea Carlton [...] beprescribed? Amelia Martinez RN documented in this encounterMer[facility]07-[facility]-2024 Telephone encounter Note * Telephone Encounter - [...] IV hydrationas an option. Anitra Caldwell APRN.CNM [facility]07-23-2024 Telephone encounter Note* Telephone Encounter - Amelia [...] medication she can beprescribed? Amelia Martinez, RN [facility]07-12-2024 Instructions* Patient Instructions* Lisa Alamo LPN - 11/28/2023 2:17 PM EDT SEQUENTIAL SCREENINGS The [facility] offers sequential screenings for women who [...] testing. It will require an appointment withour electrical instrumentation technician. This is not an ultrasound performed [...] the above symptoms, contact our office at [phone] and ask to speak with anurse. After hours, you can call doctors registry at [phone] OR call [facility] at [phone] ask to have the doctor relationship mgr paged. If you consider this an emergency, dial 9- or go to your nearest emergency department. NEED HELP? Are you dealing with a violent or abusive relationship? Are you a victim of rape or sexual assult? Call [facility] ([place]) 24 hour Crisis Hotline: 515.627.1417 or 238-444-1752. MANUAL Your Guide to a Healthy manual is now on-line. Visit [email or web address] to download your free copy documented in this encounterMer[facility]07[facility]12-2024 Progress note* Quick Notes - Anitra Caldwell APRN.ELIAZAR - 11/28/2023 1:49 PM EDT BAKARI-S: Beatris [...] -RTO in 4 weeks Anitra Caldwell APRN.CNM [facility]07-12-2024 Miscellaneous Notes* Quick Notes - Anitra Caldwell [...] weeks Anitra Caldwell APRN.CNM documented in this encounterMercy [facility] St. [facility]07-12-2024 Telephone encounter Note * Telephone Encounter - Anitra Caldwell APRN.CNM - 11/28/2023 12:57 PM EDT Order signed. Anitra Caldwell APRN.CNM [facility]07-12-2024 Miscellaneous Notes* Telephone Encounter - Anitra Caldwell APRN.CNM - 11/28/2023 12:57 PM EDT Order signed. Anitra Caldwell APRN.CNM * Telephone Encounter - Andrea Carlton RN - 11/28/2023 12:33 PM EDT Pt is having Nuchal scan done today and needs order. Andrea Carlton RN documented in this encounterMer[facility]07-12-2024 Telephone encounter Note * Telephone Encounter - Andrea Carlton RN - 11/28/2023 12:33 PM EDT Pt is having Nuchal scan done today and needs order. Andrea Carlton RN [facility]07-02-2024 Telephone encounter Note* Telephone Encounter - Cristy Oliver RN - 11/18/2023 9:47 AM EDT 1st risk assessment form submitted November 18, 2023. TRUE Ochoa, RN OB Clinical Navigator [phone] [facility]07-02-2024 Miscellaneous Notes* Telephone Encounter - Cristy Oliver RN - 11/18/2023 9:47 AM EDT 1st risk assessment form submitted November 18, 2023. TRUE Ochoa, RN OB Clinical Navigator [phone] documented [address] [facility]07-01-2024 Progress note* Quick Notes - Anitra Caldwell APRN.CNM - 11/17/2023 9:47 AM EDT NOB, see progress note. Interested in Centering. Would like aneuploidy screening, will verify next visit. Anitra Caldwell APRN.CNM [facility]07-01-2024 Miscellaneous Notes* Quick Notes - Anitra Caldwell APRN.CNM - 11/17/2023 9:47 AM EDT NOB, see progress note. Interested in Centering. Would like aneuploidy screening, will verify next visit. Anitra Caldwell APRN.CNM documented in this encounterMercy Health St. [facility]06-28-2024 Instructions* Patient Instructions* Anitra Caldwell APRN.CNM - 11/14/2023 1:03 PM EDT Please select the following link to access the [facility] Your Guide to a Healthy . [email or web address] Aspirin 81mg by mouth once daily after 12 weeks documented in this encounterMer[facility] St. [facility]06-28-2024 History of Present illness Narrative* Nora Haile LPN - 11/14/2023 11:32 AM EDT OB point of care ultrasound was performed. See imaging tab for details. Nora Haile LPN * Anitra Caldwell APRN.KMM - 11/13/2023 3:36 PM EDT INITIAL OB [...] accepted-excited Complaints: (!) Severe nausea/vomiting ([facility]-feeling better on Zofran) OB History T0 [...] Partner: Name: Royce Mercado Age: 18 Occupation: [employer] [place] Gender: Male PAST MEDICAL HISTORY Diagnosis Date [...] hemoglobin electrophoresis. Patient: Accepts Reviewed midwifery and room worker services that are available. 2) Screening: Hemoglobin [...] prn. Anitra Caldwell APRN.CNM documented in this encounterMer[facility] St[facility]06-27-2024 Telephone encounter Note * Telephone Encounter - Tierra Way RN - 11/13/2023 1:06 PM EDT Attempted to call patient x2 with no answer. Left voicemail to return phone call [facility]06-27-2024 Miscellaneous Notes* Telephone Encounter - Tierra Way [...] voicemail. Samra Fatima MA documented in this encounterMercy Health St. [facility]06-27-2024 Telephone encounter Note * Telephone Encounter - Tierra Way RN - 11/13/2023 10:46 AM EDT Called patient back and I will plan on completing OB intake questions at 1:[address] [facility]06-27-2024 Telephone encounter Note* Telephone Encounter - Samra Fatima MA - 11/13/2023 9:19 AM EDT Attempted to call patient to go over new ob intake questions. No answer; left voicemail. Samra Fatima MA [facility]06-25-2024 History of Present illness Narrative* Gretchen Brower, [...] 11, 2023 10:56 AM documented in this encounterMercy Health St. [facility]06-19-2024 History of Present illness Narrative* Joseph Hsu APRN.CLAUDIA - 11/05/2023 12:13 PM EDT Patient triaged at [facility]. Here today with continued vomiting, seen in [facility] last week/remedies attempted, now having dizziness. Is 9 weeks . I will refer to ER. In no apparent distress at time of triage. documented in this encounterMercy Health St. [facility]06-08-2024 Instructions* Patient Instructions* Floyd Louise APRN.CLAUDIA - 10/25/2023 12:51 PM EDT Nausea and vomiting Doxylamine (Unisom Sleeptab) Vitamin B6 25mg three times per day in combination with doxylamine 12.5mg at bedtime to prevent nausea. Kathi extract 125-250mg every six hours. documented in this encounterMercy Health St. [facility]06-08-2024 History of Present illness Narrative* Floyd Louise APRN.CNP - 10/25/2023 12:46 PM EDT Subjective HPI Nontoxic-appearing 7-week female presents urgent care chief complaint nausea. Duration of symptoms last 2 to 3 days. Associated symptoms nausea. States nausea is worse in the morning. Has not been seen by SERVICE GIRL at this point. Has tried some OTC [...] No evidence of dehydration. Will beestablished with SERVICE GIRL at the end of today's visit. Recommended [...] of care. This note was generated using Stylr software. It may contain errors in wording, punctuation, or spelling. Floyd Louise APRN.TELEVISION EQUIPMENT OPERATOR documented in this encounterMercy Health St. [facility]04-16-2024 History of Present illness Narrative* Raysa Bennett PTA - 09/02/2023 2:14 PM EDT Program_ID:[id number] Access Code: [email or web address] URL: [email or web address] Date: 09-02-2023 Prepared By: Zain Kearney Program [...] 2x10 with GTB 2x10 (GTB vended for [facility]) 2: *SL hip abduction series 2x10 [...] 1441 DUARTE Ventura PT documented in this encounterMercy Health St. [facility]04-12-2024 History of Present illness Narrative* Jennifer Earl [...] PRESENTS WITH AN IMPLANTABLE OR ATTACHED CHAIN SAW DRIVER: No RADIOLOGY DEPARTMENT: MR; Exam(s) Completed: Lower MSK: Knee, left PERIPHERAL IV DATA: Not applicable SIGNED BY: RT Dorys(R) August 29, 2023 10:00 AM documented in this encounterMercy Health St. [facility]04-10-2024 History of Present illness Narrative* Zhanna Hazel [...] history is provided by the patient. No pipe joints supervisor was used. Review of Systems Constitutional: Negative. [...] plan. Zhanna Hazel APRN.CLAUDIA documented in this encounterMercy Health St. [facility]04-09-2024 History of Present illness Narrative* Zain Kearney, PT - 08/26/2023 2:51 PM EDT Program_ID:[id number] Access Code: [email or web address] URL: [email or web address] Date: 08-26-2023 Prepared By: Zain Kearney Program [...] 1455 Zain Kearney PT documented in this encounterMercy [facility] St. [facility]04-02-2024 History of Present illness Narrative* Zain Kearney PT - 08/19/2023 10:52 AM EDT Program_ID:[id number] Access Code: [email or web address] URL: [email or web address] Date: 08-19-2023 Prepared By: Zain Kearney Program Notes Exercises - Single Leg Bridge - 1 x daily - 7 x weekly - 4 sets - 10 reps - Supine Isometric Hamstring Set - 1 x daily - 7 x weekly - 4 sets - 10 reps * Zain Kearney PT - 08/19/2023 10:15 AM EDT Images [...] of Care: created on 08/19/23 through 11/11/23 Ivins in home exercise program. Perform stairs without [...] Planned: 4 Planned Treatment Interventions: Therapeutic exercise (70182), Neuromuscular re- education (91562), Manual therapy (97319), Gait Training (84820), Patient/Family/Caregiver Education PLAN FOR NEXT VISIT: Assess [...] 1102 Zain Kearney PT documented in this encounterMercy Health St. [facility]03-14-2024 History of Present illness Narrative* Mayda Solares, - 07/31/2023 2:33 PM EDT Images from [...] for this visit. Physical Exam Vitals: LMP 04/02/2023 Psych: Pleasant, good affect and mood [...] space, with a small knee joint effusion. Sexual Assault Counsellor: CHAPARRITA Transcribe Date/Time: Jul 31 2023 2:39P [...] Mayda Solares D.O. M.P.H. documented in this encounterMercy Health St. [facility]03-14-2024 History of Present illness Narrative* Tierra Sales [...] PRESENTS WITH AN IMPLANTABLE OR ATTACHED CHAIN SAW DRIVER: No RADIOLOGY DEPARTMENT: General X-ray: Exam(s) Completed: Lower Extremity X- Ray(s): Knee, AP / Lat / Tunne / Merchant Left and Wt. Bearing PERIPHERAL IV DATA: Not applicable SIGNED BY: RT Lei(R) July 31, 2023 2:21 PM documented in this encounterMercy Health St. [facility]11-15-2023 History of Present illness Narrative* John Crowe [...] severe. John Crowe MD documented in this encounterMercy Health St. [facility]10-03-2023 History of Present illness Narrative* Tierra Sales, [...] 18, 2023 12:13 PM documented in this encounterMercy Health St. [facility]10-03-2023 History of Present illness Narrative* Tierra Sales [...] 18, 2023 11:57 AM documented in this encounterMercy Health St. [facility]09-06-2023 History of Present illness Narrative* Floyd Louise APRN.TELEVISION EQUIPMENT OPERATOR - 01/22/2023 6:17 PM EDT Images from [...] of care. This note was generated using Stylr software. It may contain errors in wording, punctuation, or spelling. Floyd Louise APRN.CLAUDIA documented in this encounterMercy Health St. [facility]07-06-2023 Instructions* Patient Instructions* Floyd Louise APRN.CNP - [...] or mouth and then touchesanother person directly (oqel-hl-tkpg contact) or indirectly (umzu-jh-obfykz, such as doorknob, telephone, toys). It is [...] every four months on our web site ([email or web address]). Information below was obtained from Up to date Last literature review version 19.2: September 2010 This topic last updated: January 03, 2010 documented in this encounterMercy Health St. [facility]07-06-2023 History of Present illness Narrative* Floyd Louise APRN.CNP - 11/21/2022 1:32 PM EDT Subjective HPI Nontoxic-appearing female presents to urgent care with chief complaint of upper respiratory tract like infection. Duration of symptoms 2 days. Associated symptoms sore throat, nasal congestion, nasaldischarge and nonproductive cough. Patient denies the use of any oesj-vgd-cgfkkyn medications or home remedies for symptom management. [...] of care. This note was generated using Stylr software. It may contain errors in wording, punctuation, or spelling. Floyd Louise APRN.CLAUDIA documented in this encounterMercy Health St. [facility]03-17-2023 History of Present illness Narrative* Gretchen Brower, [...] 02, 2022 11:04 AM documented in this encounterMercy Health St. [facility]11-21-2022 History of Present illness Narrative* Zhanna Hazel APRN.CLAUDIA - 04/08/2022 5:30 PM EST Patient came in with complaints of cat bite on left ring finger. Patient says she is bit yesterday.Patient says is extremely swollen and painful and numb. Upon examining the finger patient does havesignificant swelling and erythema. Patient has yellow-green liquid seeping out around the nail. Patient works at the [employer] should not 100% sure the cat had any of its shots. At this time patient is being sent to the ER due to loss of feeling in the finger swelling and erythema. Patient wasokay with this care plan. documented in this encounterMercy Health St. [facility]10-27-2022 History of Present illness Narrative* Mayda Solares, [...] for this visit. Physical Exam Vitals: [facility] 01/04/2022 Psych: Pleasant, good affect and mood [...] Denies any pain today. documented in this encounterMercy Health St. [facility]10-19-2022 History of Present illness Narrative* June Staton, [...] 02/04/22 through 04/06/22 Goals updated on 03/06/2022. Ivins in home exercise program. (Met) Patient will [...] Patient to be seen for Therapeutic exercise (95961);Neuromuscular re-education (46320);Manual therapy (86866);Gait Training (73369);Patient/Family/Caregiver Education PLAN FOR NEXT VISIT: May add [...] 45 June Staton PT documented in this encounterMercy Health [facility]. [facility]10-12-2022 History of Present illness Narrative* June Staton [...] 47 June Staton PT documented in this encounterMercy [facility]. [facility]10-10-2022 History of Present illness Narrative* June Staton [...] Treatment Time Minutes (timed/untimed): 45 Raysa Bennett, RAGMAN June Staton PT documented in this encounterMercy Health St. [facility]10-07-2022 History of Present illness Narrative* June Staton [...] 45 June Staton PT documented in this encounterMercy Health [facility]. [facility]09-19-2022 History of Present illness Narrative* June Staton [...] of Care: created on 02/04/22 through 04/06/22 Ivins in home exercise program. Patient will decrease [...] Planned: 16 Planned Treatment Interventions: Therapeutic exercise (52837);Neuromuscular re- education (66215);Manual therapy (06122);Gait Training (70198);Patient/Family/Caregiver Education;E-Stim Attended/TENS (56796) PLAN FOR NEXT VISIT: Review HEP. Progress [...] 60% weight on L LE. Works at [employer] so lots of walking, attends [employer] and walks a lot at school. Patient Goals: To get back to doing all my activities at work. Functional Limitations: walking in the community;physical activities;recreational activities;sleeping Prior Level of Function: Independent with restrictions Independent with the following restrictions: Knee pain and limitations prior to surgery. 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 [facility]09-16-2022 History of Present illness Narrative* Mayda Solares DO - 02/01/2022 10:55 AM EDT Follow [...] for this visit. Physical Exam Vitals: [facility] 01/04/2022 Psych: Pleasant, good affect and mood [...] plan. All questions answered. documented in this encounterMercy Health St. [facility]09-08-2022 Miscellaneous Notes* Telephone Encounter - Lashay Grace [...] Please advise. Thank you! PH # is [phone] Could be released through [email or web address] or mom says we can fax directly to the school. [facility] documented in this encounterMercy Health St. [facility]08-16-2022 Instructions* Patient Instructions* Nataliia Lujan APRN.TELEVISION EQUIPMENT OPERATOR - 01/01/2022 1:41 PM EDT PATIENT PREOPERATIVE INSTRUCTIONS Mayda Solares,* has scheduled you for your procedure at this surgery center: [facility]: [phone] --[id number] [facility], [place] [id number]. Please read below carefully for your personalized [...] Procedures: - YOU MUST HAVE A RESPONSIBLE MANAGER OUTPATIENT TAKE YOU HOME. A UNDERCOLLAR MAKER OR CLIENT SERVICES MANAGER CANNOT BE MADE A RESPONSIBLE MANAGER OUTPATIENT. - We recommend that a responsible person [...] Advance Directive, please fax a copy to [phone] or email to for it to be [...] day. Nataliia Lujan APRN.CNP documented in this encounterMercy Health St. [facility]08-16-2022 History and physical note * Nataliia Lujan APRN.CNP - 01/01/2022 1:40 PM EDT PREANESTHESIA CONSULT CLINIC TELEHEALTH VISIT Patient has been identified by name and date of : Yes This is a virtual visit using [employer] video visit. It require patient-provider interaction for [...] fevers. Neuro: No history of TIA's, stroke, ONLINE MARKETING STRATEGIST tumor, impaired sensorium, hemiplegia, paraplegia or quadraplegia. No neurological symptoms or problems. Respiratory: No history of current cough or dyspnea, or pneumonia in the past 6 weeks. No history of respiratory/pulmonary symptoms or problems. Cardiovascular: No history of HTN requiring medication, no history of angina, CHF, LA, cardiac surgery or stents. Denies rest pain, [...] > 1 time per night or hematuria RICE DRIER OPERATOR: Negative for abnormal vaginal bleeding, abnormal vaginal [...] device. I spent more than 0-20 minutes kzlp-he-tjba with the patient and over half the time was devoted to counseling and/or coordination of care. This is a virtual visit. It required patient-provider interaction for the medical decision making as documented above. SIGNATURE: Nataliia Lujan APRN.CNP PATIENT NAME: Beatris Fletcher DATE: .01/01/2022 TIME: 1:46 PM PAGER/CONTACT #: documented in this encounterMercy [facility]2022 Miscellaneous Notes* Telephone Encounter - Otoniel Gates [...] Gates PA-C * Telephone Encounter - Nadine Majano Adm - 12/19/2021 4:07 PM EDT pnt mother LVM wanting to sched joint surgery on Left knee [phone] Rosa [phone]-dad Edward documented in this encounterMer[facility]07-25-2022 History of Present illness Narrative* Manny Arteaga [...] with more than 50% of the total azvd-km-ahbj time of the visit in counseling / coordination of care. We will coordinate with Dr Solares for combined surgery documented in this encounterMercy Health St. [facility]07-22-2022 Miscellaneous Notes* Telephone Encounter - Chago [facility] - 12/07/2021 8:27 AM EDT Daughter seeing [...] care of Beatris afterwards. The email is [email or web address]. The paperwork does not need to give specifics bc of HIPPA, but would need dads name, and the date of surgery for Beatris. Please advise. They are saying they need this before the weekend.. Thank you! documented in this encounterMercy Health St. [facility]06-22-2022 History of Present illness Narrative* Mayda Solares, [...] for this visit. Physical Exam Vitals: [facility] 02/09/2020 Psych: Pleasant, good affect and mood [...] patient Mayda Solares DO documented in this encounterMercy Health St. [facility]06-07-2022 Miscellaneous Notes* Telephone Encounter - Shannon Berrios - 10/23/2021 3:04 PM EDT Patient has been scheduled for visit with Dr. Solares / pre op. * Telephone Encounter - Chago Colby [facility] - 10/23/2021 2:44 PM EDT Please contact [...] Thanks! Mayda Solares DO documented in this encounterMercy Health St. [facility]06-03-2022 History of Present illness Narrative* Mayda Solares DO - 10/19/2021 12:08 PM EDT VIRTUAL VISIT PROGRESS NOTE This is a virtual visit using [employer] video visit. It required patient-provider interaction for [...] which included preparing to see the patient, gluh-yx-udpm patient care, completing clinical documentation, communicating with [...] patient. Mayda Solares DO documented in this encounterMercy Health St. [facility]05-31-2022 History of Present illness Narrative* Jennifer Earl, RT(R) - 10/16/2021 11:20 AM EDT Radiology [...] 16, 2021 11:44 AM documented in this encounterMercy Health St. [facility]05-13-2022 Miscellaneous Notes* Telephone Encounter - June Magallon [...] Solares DO * Telephone Encounter - Dyan Everton - 09/27/2021 12:52 PM EDT ----- Message from Mayda Solares DO sent at 09/27/2021 11:59 AM EDT ----- I ordered MRI, her last one of her left knee was a while ago and id like a new one prior to surgical intervention. Please schedule/call patient Thanks Mayda Solares DO documented in this encounterMercy Health St. [facility]05-11-2022 History of Present illness Narrative* Mayda Solares [...] seen in the lateral and patellofemoral compartments. Sexual Assault Counsellor: CHAPARRITA ... Complete Results Assessment and Plan: [...] treatment plan as discussed. documented in this encounterMercy Health St. [facility]05-11-2022 Miscellaneous Notes* Allied Health - Mady Wharton, (R) - 09/26/2021 11:00 AM EDT Radiology Service [...] 26, 2021 12:16 PM documented in this encounterMercy Health St. [facility]01-23-2018 History of Past illness Narrative* Problem Noted Date Resolved Date Chronic cough 06/10/2017 11/25/2019 Nocturnal enuresis 10/16/2010 02/22/2020 Ganglion cyst of wrist, left 10/2019 Last Assessment & Plan: Assessment: scheduled for EXCISION GANGLION WRIST LEFT 12/03/2019 documented as of this encounter (statuses as of 09/27/2021) [facility]01[facility] History of Past illness Narrative* Problem Noted Date Resolved Date Chronic cough 06/10/2017 11/25/2019 Nocturnal enuresis 10/16/2010 02/22/2020 Ganglion cyst of wrist, left 10/2019 Last Assessment & Plan: Assessment: scheduled for EXCISION GANGLION WRIST LEFT 12/03/2019 documented as of this encounter (statuses as of 09/27/2021) [facility] History of Past illness Narrative* Problem Noted Date Resolved Date Chronic cough 06/10/2017 11/25/2019 Nocturnal enuresis 10/16/2010 02/22/2020 Ganglion cyst of wrist, left 10/2019 Last Assessment & Plan: Assessment: scheduled for EXCISION GANGLION WRIST LEFT 12/03/2019 documented as of this encounter (statuses as of 09/28/2021) [facility] History of Past illness Narrative* Problem Noted Date Resolved Date Chronic cough 06/10/2017 11/25/2019 Nocturnal enuresis 10/16/2010 02/22/2020 Ganglion cyst of wrist, left 10/2019 Last Assessment & Plan: Assessment: scheduled for EXCISION GANGLION WRIST LEFT 12/03/2019 documented as of this encounter (statuses as of 10/17/2021) [address]23-2018 History of Past illness Narrative* Problem Noted Date Resolved Date Chronic cough 06/10/2017 11/25/2019 Nocturnal enuresis 10/16/2010 02/22/2020 Ganglion cyst of wrist, left 10/2019 Last Assessment & Plan: Assessment: scheduled for EXCISION GANGLION WRIST LEFT 12/03/2019 documented as of this encounter (statuses as of 10/23/2021) [facility] History of Past illness Narrative* Problem Noted Date Resolved Date Chronic cough 06/10/2017 11/25/2019 Nocturnal enuresis 10/16/2010 02/22/2020 Ganglion cyst of wrist, left 10/2019 Last Assessment & Plan: Assessment: scheduled for EXCISION GANGLION WRIST LEFT 12/03/2019 documented as of this encounter (statuses as of 10/23/2021) [address]23-2018 History of Past illness Narrative* Problem Noted Date Resolved Date Chronic cough 06/10/2017 11/25/2019 Nocturnal enuresis 10/16/2010 02/22/2020 Ganglion cyst of wrist, left 10/2019 Last Assessment & Plan: Assessment: scheduled for EXCISION GANGLION WRIST LEFT 12/03/2019 documented as of this encounter (statuses as of 11/08/2021) [facility] History of Past illness Narrative* Problem Noted Date Resolved Date Chronic cough 06/10/2017 11/25/2019 Nocturnal enuresis 10/16/2010 02/22/2020 Ganglion cyst of wrist, left 10/2019 Last Assessment & Plan: Assessment: scheduled for EXCISION GANGLION WRIST LEFT 12/03/2019 documented as of this encounter (statuses as of 12/10/2021) [address]23-[address] History of Past illness Narrative* Problem Noted Date Resolved Date Chronic cough 06/10/2017 11/25/2019 Nocturnal enuresis 10/16/2010 02/22/2020 Ganglion cyst of wrist, left 10/2019 Last Assessment & Plan: Assessment: scheduled for EXCISION GANGLION WRIST LEFT 12/03/2019 documented as of this encounter (statuses as of 12/26/2021) [address]23-2018 History of Past illness Narrative* Problem Noted Date Resolved Date Chronic cough 06/10/2017 11/25/2019 Nocturnal enuresis 10/16/2010 02/22/2020 Ganglion cyst of wrist, left 10/2019 Last Assessment & Plan: Assessment: scheduled for EXCISION GANGLION WRIST LEFT 12/03/2019 documented as of this encounter (statuses as of 01/01/2022) [address]23-2018 History of Past illness Narrative* Problem Noted Date Resolved Date Chronic cough 06/10/2017 11/25/2019 Nocturnal enuresis 10/16/2010 02/22/2020 Ganglion cyst of wrist, left 10/2019 Last Assessment & Plan: Assessment: scheduled for EXCISION GANGLION WRIST LEFT 12/03/2019 documented as of this encounter (statuses as of 01/07/2022) [address]23-2018 History of Past illness Narrative* Problem Noted Date Resolved Date Chronic cough 06/10/2017 11/25/2019 Nocturnal enuresis 10/16/2010 02/22/2020 Ganglion cyst of wrist, left 10/2019 Last Assessment & Plan: Assessment: scheduled for EXCISION GANGLION WRIST LEFT 12/03/2019 documented as of this encounter (statuses as of 01/24/2022) [address]23-2018 History of Past illness Narrative* Problem Noted Date Resolved Date Chronic cough 06/10/2017 11/25/2019 Nocturnal enuresis 10/16/2010 02/22/2020 Ganglion cyst of wrist, left 10/2019 Last Assessment & Plan: Assessment: scheduled for EXCISION GANGLION WRIST LEFT 12/03/2019 documented as of this encounter (statuses as of 02/01/2022) [address]23-2018 History of Past illness Narrative* Problem Noted Date Resolved Date Chronic cough 06/10/2017 11/25/2019 Nocturnal enuresis 10/16/2010 02/22/2020 Ganglion cyst of wrist, left 10/2019 Last Assessment & Plan: Assessment: scheduled for EXCISION GANGLION WRIST LEFT 12/03/2019 documented as of this encounter (statuses as of 02/04/2022) [facility]01-23-2018 History of Past illness Narrative* Problem Noted Date Resolved Date Chronic cough 06/10/2017 11/25/2019 Nocturnal enuresis 10/16/2010 02/22/2020 Ganglion cyst of wrist, left 10/2019 Last Assessment & Plan: Assessment: scheduled for EXCISION GANGLION WRIST LEFT 12/03/2019 documented as of this encounter (statuses as of 02/22/2022) [facility]-23-2018 History of Past illness Narrative* Problem Noted Date Resolved Date Chronic cough 06/10/2017 11/25/2019 Nocturnal enuresis 10/16/2010 02/22/2020 Ganglion cyst of wrist, left 10/2019 Last Assessment & Plan: Assessment: scheduled for EXCISION GANGLION WRIST LEFT 12/03/2019 documented as of this encounter (statuses as of 02/25/2022) [facility]23-2018 History of Past illness Narrative* Problem Noted Date Resolved Date Chronic cough 06/10/2017 11/25/2019 Nocturnal enuresis 10/16/2010 02/22/2020 Ganglion cyst of wrist, left 10/2019 Last Assessment & Plan: Assessment: scheduled for EXCISION GANGLION WRIST LEFT 12/03/2019 documented as of this encounter (statuses as of 02/27/2022) [facility]-2018 History of Past illness Narrative* Problem Noted Date Resolved Date Chronic cough 06/10/2017 11/25/2019 Nocturnal enuresis 10/16/2010 02/22/2020 Ganglion cyst of wrist, left 10/2019 Last Assessment & Plan: Assessment: scheduled for EXCISION GANGLION WRIST LEFT 12/03/2019 documented as of this encounter (statuses as of 03/06/2022) [facility] History of Past illness Narrative* Problem Noted Date Resolved Date Chronic cough 06/10/2017 11/25/2019 Nocturnal enuresis 10/16/2010 02/22/2020 Ganglion cyst of wrist, left 10/2019 Last Assessment & Plan: Assessment: scheduled for EXCISION GANGLION WRIST LEFT 12/03/2019 documented as of this encounter (statuses as of 03/15/2022) [facility] History of Past illness Narrative* Problem Noted Date Resolved Date Chronic cough 06/10/2017 11/25/2019 Nocturnal enuresis 10/16/2010 02/22/2020 Ganglion cyst of wrist, left 10/2019 Last Assessment & Plan: Assessment: scheduled for EXCISION GANGLION WRIST LEFT 12/03/2019 documented as of this encounter (statuses as of 04/09/2022) [facility] History of Past illness Narrative* Problem Noted Date Resolved Date Chronic cough 06/10/2017 11/25/2019 Nocturnal enuresis 10/16/2010 02/22/2020 Ganglion cyst of wrist, left 10/2019 Last Assessment & Plan: Assessment: scheduled for EXCISION GANGLION WRIST LEFT 12/03/2019 documented as of this encounter (statuses as of 08/02/2022) [facility] History of Past illness Narrative* Problem Noted Date Resolved Date Chronic cough 06/10/2017 11/25/2019 Nocturnal enuresis 10/16/2010 02/22/2020 Ganglion cyst of wrist, left 10/2019 Last Assessment & Plan: Assessment: scheduled for EXCISION GANGLION WRIST LEFT 12/03/2019 documented as of this encounter (statuses as of 11/21/2022) [facility] History of Past illness Narrative* Problem Noted Date Diagnosed Date Resolved Date Chronic cough 06/10/2017 11/25/2019 Nocturnal enuresis 10/16/2010 0 Ganglion cyst of wrist, left 02/22/2020 Last Assessment & Plan: Assessment: scheduled for EXCISION GANGLION WRIST LEFT 12/03/2019 documented as of this encounter (statuses as of 01/23/2023) [facility] History of Past illness Narrative* Problem Noted Date Diagnosed Date Resolved Date Chronic cough 06/10/2017 11/25/2019 Nocturnal enuresis 10/16/2010 0 Ganglion cyst of wrist, left 02/22/2020 Last Assessment & Plan: Assessment: scheduled for EXCISION GANGLION WRIST LEFT 12/03/2019 documented as of this encounter (statuses as of 04/02/2023) [facility] History of Past illness Narrative* Problem Noted Date Diagnosed Date Resolved Date Chronic cough 06/10/2017 11/25/2019 Nocturnal enuresis 10/16/2010 0 Ganglion cyst of wrist, left 02/22/2020 Last Assessment & Plan: Assessment: scheduled for EXCISION GANGLION WRIST LEFT 12/03/2019 documented as of this encounter (statuses as of 07/24/2023) [facility] History of Past illness Narrative* Problem Noted Date Diagnosed Date Resolved Date Chronic cough 06/10/2017 11/25/2019 Nocturnal enuresis 10/16/2010 0 Ganglion cyst of wrist, left 02/22/2020 Last Assessment & Plan: Assessment: scheduled for EXCISION GANGLION WRIST LEFT 12/03/2019 documented as of this encounter (statuses as of 08/01/2023) [facility] History of Past illness Narrative* Problem Noted Date Diagnosed Date Resolved Date Chronic cough 06/10/2017 11/25/2019 Nocturnal enuresis 10/16/2010 0 Ganglion cyst of wrist, left 02/22/2020 Last Assessment & Plan: Assessment: scheduled for EXCISION GANGLION WRIST LEFT 12/03/2019 documented as of this encounter (statuses as of 08/01/2023) [facility] History of Past illness Narrative* Problem Noted Date Diagnosed Date Resolved Date Chronic cough 06/10/2017 11/25/2019 Nocturnal enuresis 10/16/2010 0 Ganglion cyst of wrist, left 02/22/2020 Last Assessment & Plan: Assessment: scheduled for EXCISION GANGLION WRIST LEFT 12/03/2019 documented as of this encounter (statuses as of 08/19/2023) [place] [address]-23-2018 History of Past illness Narrative* Problem Noted Date Diagnosed Date Resolved Date Chronic cough 06/10/2017 11/25/2019 Nocturnal enuresis 10/16/2010 0 Ganglion cyst of wrist, left 02/22/2020 Last Assessment & Plan: Assessment: scheduled for EXCISION GANGLION WRIST LEFT 12/03/2019 documented as of this encounter (statuses as of 08/27/2023) [facility] History of Past illness Narrative* Problem Noted Date Diagnosed Date Resolved Date Chronic cough 06/10/2017 11/25/2019 Nocturnal enuresis 10/16/2010 0 Ganglion cyst of wrist, left 02/22/2020 Last Assessment & Plan: Assessment: scheduled for EXCISION GANGLION WRIST LEFT 12/03/2019 documented as of this encounter (statuses as of 08/28/2023) [facility] History of Past illness Narrative* Problem Noted Date Diagnosed Date Resolved Date Chronic cough 06/10/2017 11/25/2019 Nocturnal enuresis 10/16/2010 0 Ganglion cyst of wrist, left 02/22/2020 Last Assessment & Plan: Assessment: scheduled for EXCISION GANGLION WRIST LEFT 12/03/2019 documented as of this encounter (statuses as of 08/30/2023) [facility] History of Past illness Narrative* Problem Noted Date Diagnosed Date Resolved Date Chronic cough 06/10/2017 11/25/2019 Nocturnal enuresis 10/16/2010 0 Ganglion cyst of wrist, left 02/22/2020 Last Assessment & Plan: Assessment: scheduled for EXCISION GANGLION WRIST LEFT 12/03/2019 documented as of this encounter (statuses as of 09/03/2023) [facility] Author Blane Alfred [facility] Note Date/Time August 17, 2024 1:51 am [facility] Medical Records Department [address] [place] [address] Emergency Department Summary 08/17/24 MR#: [id number] Acct: [id number] Name: BEATRIS FLETCHER Rep #:[id number] : 2005 19 From: Blane Alfred MD [...] Prior similar symptoms: Yes Recent Illness/Hospitalization: No [facility] Medical History Anxiety Encounter for screening for [...] home and treated as a kidney stone. Colbert for pain. Motrin. Fluids. Urine strainer. Urology [...] 45.2 L Lymph % (Auto) 45.9 H [place] % (Auto) 6.6 Eos % (Auto) 1.7 [...] Clarity Clear Urine pH 7.0 Ur Specific [place] 1.010 Urine Protein 30 H Urine Glucose [...] stranding or urothelial thickening seen. Reading Location: [id number] CT of the abdomen pelvis with IV [...] in your bladder your pain should resolve. Colbert for severe pain. Otherwise you can use [...] your Primary Care Provider. Call [facility] ([phone]) or report to the closest Emergency Room. Call 911 if necessary. 08/17/24 0151 <Electronically signed by Blane Alfred MD> Cosigner Signature (if applicable): CC: No Primary Care Physician ~ Signed [facility] Work Phone: Evaluation note* Diagnosis Pain Generalized pain Chronic pain of left knee Pain in joint, lower leg [facility] Chronic pain of left knee- Primary Pain in joint, lower leg 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 [facility] Diagnosis Chronic pain of left knee Pain in joint, lower leg Knee OCD Osteochondritis dissecans [facility] Diagnosis Chronic pain of left [...] patella, subsequent encounter [facility] Diagnosis Preoperative testing- Primary Preoperative examination, unspecified Patellar dislocation, left, subsequent encounter S/P orthopedic surgery, follow-up exam Follow-up examination, following other surgery Patellar dislocation, left, subsequent encounter [facility] Diagnosis Pre-op evaluation- Primary Preoperative examination, unspecified Dislocation of left patella, subsequent encounter Patellar dislocation, left, subsequent encounter [facility] Diagnosis S/P knee surgery- Primary [...] following other surgery [facility] Diagnosis Patellar dislocation, left, subsequent encounter- Primary S/P orthopedic surgery, follow-up exam Follow-up examination, following other surgery [facility] Patellar dislocation, left, subsequent encounter- Primary S/P orthopedic surgery, follow-up exam Follow-up examination, following other surgery [facility] S/P knee surgery- Primary Other postprocedural status [facility]* Diagnosis Cat bite, initial encounter- Primary [facility]* Diagnosis Myopia, bilateral- Primary Myopia [facility]* Diagnosis Sore throat- Primary Acute pharyngitis URI, acute Acute upper respiratory infections of unspecified site [facility]* Diagnosis Rash- Primary Rash and other nonspecific skin eruption [facility]* Diagnosis Sore throat- Primary Acute pharyngitis [facility] noteNo assessment information availableWMadison Health Work Phone: Evaluation note* Diagnosis Chronic pain of left knee- Primary Pain in joint, lower leg [facility] Diagnosis Chronic pain of left knee Pain in joint, lower leg [facility]* Diagnosis S/P knee surgery- Primary Other postprocedural status Loose body in knee, left knee [facility] Diagnosis S/P knee surgery Other postprocedural status [facility] Diagnosis S/P knee surgery- Primary Other postprocedural status documented [facility] Diagnosis Nausea- Primary Nausea alone documented [facility] Diagnosis S/P knee surgery Other postprocedural status Loose body in knee, left knee documented [facility] Diagnosis S/P knee surgery- Primary Other postprocedural status documented [facility] Diagnosis Nausea- Primary Nausea alone documented [facility] this [facility]* Diagnosis Dizziness- Primary Dizziness and giddiness Nausea and vomiting, unspecified vomiting type documented in this [facility]* Diagnosis Myopia, bilateral- Primary Myopia documented in this [facility]* Diagnosis with uncertain dates, antepartum- Primary state, incidental Encounter for care in first trimester of first Generalized anxiety disorder History of depression Personal history of other mental disorder Supervision of normal first teen in second trimester Acute vaginitis Vaginitis and vulvovaginitis, unspecified Nausea and vomiting during Normal first with uncertain date of LMP, antepartum Supervision of normal first [facility] Diagnosis Generalized anxiety disorder- Primary History of depression Personal history of other mental disorder Supervision of normal first teen in second trimester Nausea and vomiting during Normal first with uncertain date of LMP, antepartum Supervision of normal first documented [facility]* Diagnosis Encounter for screening for malformation using ultrasound- Primary 12 weeks gestation of state, incidental 12 weeks gestation of - Primary state, incidental documented in this [facility] Diagnosis Encounter for screening for malformation using ultrasound- Primary 12 weeks gestation of state, incidental documented [facility] Diagnosis Supervision of normal first teen in second trimester- Primary Nausea and vomiting during Normal first with uncertain date of LMP, antepartum Supervision of normal first Generalized anxiety disorder History of depression Personal history of other mental disorder 12 weeks gestation of state, incidental documented [facility] this [facility] Diagnosis Nausea- Primary Nausea alone [facility] Diagnosis Supervision of normal first teen in second trimester- Primary 15 weeks gestation of state, incidental Nausea and vomiting during Generalized anxiety disorder History of depression Personal history of other mental disorder Rubella non-immune status, antepartum Other specified complication, antepartum [facility] Diagnosis Supervision of normal first teen in second trimester- Primary Nausea and vomiting during History of depression Personal history of other mental disorder Rubella non-immune status, antepartum Other specified complication, antepartum Generalized anxiety disorder 20 weeks gestation of state, incidental Back pain in Other specified complication of , unspecified as to episode of care documented in this encounter [facility] note* Diagnosis Encounter for anatomic survey- Primary 20 weeks gestation of state, incidental documented in this encounter [facility] note* Diagnosis Pain Generalized pain documented in this encounter [facility] note* Diagnosis Pain Generalized pain documented in this encounter [facility] note* Diagnosis Encounter for care in first trimester of first documented in this encounter [facility] note* Diagnosis 24 weeks gestation of - Primary state, incidental Supervision of normal first teen in second trimester Generalized anxiety disorder Rubella non-immune status, antepartum Other specified complication, antepartum History of depression Personal history of other mental disorder Encounter for care in first trimester of first Heartburn during in second trimester documented in this encounter [facility] note* Diagnosis Viral URI- Primary Acute upper respiratory infections of unspecified site documented in this encounter [facility] note* Diagnosis Elevated glucose tolerance test- Primary Impaired glucose tolerance test documented in this encounter [facility] note* Diagnosis Supervision of normal [...] other mental disorder documented in this encounter [facility] note* Diagnosis 29 weeks gestation of - Primary state, incidental Encounter for supervision of normal first in third trimester Supervision of normal first Rubella non-immune status, antepartum Other specified complication, antepartum Low-lying placenta Hemorrhage from placenta previa, unspecified as to episode of care [facility] Diagnosis 32 weeks gestation of - Primary state, incidental Encounter for supervision of normal first in third trimester Supervision of normal first Low-lying placenta Hemorrhage from placenta previa, unspecified as to episode of care Heartburn during in third trimester [facility] Diagnosis Encounter for ultrasound to check growth- Primary Encounter for routine screening for malformation using ultrasonics Suspected placental problem not found 32 weeks gestation of state, incidental documented [facility]* Diagnosis 34 weeks gestation of - Primary state, incidental Encounter for supervision of normal first in third trimester Supervision of normal first Rubella non-immune status, antepartum Other specified complication, antepartum Heartburn during in third trimester documented [facility]* Diagnosis Supervision of normal first teen in second trimester- Primary Heartburn during in third trimester Rubella non-immune status, antepartum Other specified complication, antepartum History of depression Personal history of other mental disorder Uterine size-date discrepancy in third trimester Uterine size date discrepancy, antepartum condition or complication documented [facility] Diagnosis Encounter for supervision of normal first in third trimester- Primary Supervision of normal first Uterine size-date discrepancy in third trimester Uterine size date discrepancy, antepartum condition or complication Need for RSV vaccination Need for prophylactic vaccination and inoculation against respiratory syncytial virus 36 weeks gestation of state, incidental [facility] Diagnosis 2 weeks follow-up- Primary Lactating mother care and examination of lactating mother First-degree perineal laceration in First-degree perineal laceration, unspecified as to episode of care in Generalized anxiety disorder [facility]* Diagnosis Post depression- Primary Mental disorders of mother, [facility]* Diagnosis 2 weeks follow-up- Primary Post depression Mental disorders of mother, [facility]* Diagnosis Post depression- Primary Mental disorders of mother, Generalized anxiety disorder [facility]* Diagnosis care and examination- Primary Routine follow-up Encounter for IUD insertion Encounter for insertion of intrauterine contraceptive device Post depression Mental disorders of mother, Generalized anxiety disorder [facility] Diagnosis Acute cough- Primary Rhinosinusitis Unspecified sinusitis (chronic) Acute cough documented [facility]* Diagnosis Acute cough [facility] Diagnosis Encounter for care in first trimester of first (HCC) documented in this encounter [facility] note* Diagnosis Encounter for IUD insertion- Primary Encounter for insertion of intrauterine contraceptive device [facility] Additional Instructions Please follow-up with crisis center as directed regarding your event that occurred this evening. If you have any further concerns or worsening of symptoms please return to the ER for repeat evaluationWMadison Health Work Phone: Hospital Discharge instructions Additional Instructions Your pain is from a 2 mm kidney stone on the left. It is already all the way down by your bladder. It should pass without any difficulty. Once he gets in your bladder your pain should resolve. Colbert for severe pain. Otherwise you can use [...] is the best way to prevent kidney stones.[facility] Work Phone: Hospital Discharge instructionsAdditional Instructions Most likely secondary to your IUD. Plenty of fluids. Motrin and Tylenol for pain. Follow-up with your nurse punch box tender if not improving. Or your SERVICE GIRL.[facility] Work Phone: Hospital Discharge instructionsAdditional Instructions The antibiotic should begin resolving your infection in 48 to 72 hours. If you notice a fever of 100.4 or higher or streaking up your arm or have any further concerns please return to the ER for repeat evaluation. Otherwise please continue to wash your hands with soap and water to help prevent infection and take the antibiotic as directedWMadison Health Work Phone: Reason for referral (narrative)* Diagnostic Procedure Only (Routine) - Closed Specialty Diagnoses / Procedures Referred By Contac t Referred To Contact XR IMAGING Diagnoses Chronic pain of left knee Procedures XR KNEE GENERAL 4V AP BOTH/PA BOTH/LAT/MERC LEFT RADIOLOGIC EXAM KNEE COMPLETE 4/MORE VIEWS Mayda Solares DO [address] [place] [address] Xr Imaging Referral ID Status Reason Start Date Expiration Date V isits Requested Visits Authorized [id number] Closed Auto-Generate d Referral 09/26/2021 10/26/2022 1 1 [facility] for referral (narrative)* Diagnostic Procedure Only (Routine) - Pending Review Specialty Diagnoses / Procedures Referred By Contac t Referred To Contact XR IMAGING Diagnoses Chronic pain of left knee Procedures XR KNEE GENERAL 4V AP BOTH/PA BOTH/LAT/MERC LEFT RADIOLOGIC EXAM KNEE COMPLETE 4/MORE VIEWS Mayda Solares DO [address] [place] [address] [place] [address] Referral ID Status Reason Start Date Expiration Date Visits Requested Visits Authorized [id number] Pending Review Auto-Generat ed Referral 07/24/2023 08/22/2024 1 1 [facility] for referral (narrative)* Diagnostic Procedure Only (Routine) - Closed Specialty Diagnoses / Procedures Referred By Contac t Referred To Contact XR IMAGING Diagnoses Chronic pain of left knee Procedures XR KNEE GENERAL 4V AP BOTH/PA BOTH/LAT/MERC LEFT RADIOLOGIC EXAM KNEE COMPLETE 4/MORE VIEWS Mayda Solares DO [address] [place] [address] [place] [address] Referral ID Status Reason Start Date Expiration Date V isits Requested Visits Authorized [id number] Closed Auto-Generate d Referral 07/24/2023 08/22/2024 1 1 [facility] for referral (narrative)* Diagnostic Procedure Only (Routine) - New Request Specialty Diagnoses / Procedures Referred By Contac t Referred To Contact [facility] Diagnoses 12 weeks gestation of Procedures NUCHAL TRANSLUCENCY WHI US NUCHAL TRANSLUCENCY 1ST GESTATION Anitra Caldwell APRN.CNM [address] [place] [address] [place] [id number] [place] [id number] Referral ID Status Reason Start Date Expiration Date Visits Requested Visits Authorized [id number] New Request Auto-Generat ed Referral 11/28/2023 11/27/2024 1 1 [facility] for referral (narrative)* Diagnostic Procedure Only (Routine) - New Request Specialty Diagnoses / Procedures Referred By Contac t Referred To Contact [facility] Diagnoses Supervision of normal first teen in second trimester Procedures OBSTETRIC ULTRASOUND WHI US PREG UTERUS AFTER 1ST TRIMEST GESTATION Anitra Caldwell APRN.CNM [address] [place] [address] [facility] [address] [place] [address] Referral ID Status Reason Start Date Expiration Date Visits Requested Visits Authorized [id number] New Request Auto-Generat ed Referral 11/28/2023 11/27/2024 1 1 [facility] for referral (narrative)* Diagnostic Procedure Only (Urgent) - Closed Specialty Diagnoses / Procedures Referred By Contac t Referred To Contact XR IMAGING Diagnoses Pain Procedures XR FOOT GENERAL 3V AP/LAT/OBL RIGHT RADEX FOOT COMPLETE MINIMUM 3 VIEWS Zhanna Hazel APRN.TELEVISION EQUIPMENT OPERATOR [address] [place] [address] [place] [address] Referral ID Status Reason Start Date Expiration Date V isits Requested Visits Authorized [id number] Closed Auto-Generate d Referral 02/18/2023 03/19/2024 1 1 [facility] for referral (narrative)* Diagnostic Procedure Only (Urgent) - Closed Specialty Diagnoses / Procedures Referred By Contac t Referred To Contact XR IMAGING Diagnoses Pain Procedures XR ANKLE GENERAL 3V AP/LAT/OBL RIGHT RADEX ANKLE COMPLETE MINIMUM 3 VIEWS Zhanna Hazel APRN.CNP [address] [place] [address] [place] [address] Referral ID Status Reason Start Date Expiration Date V isits Requested Visits Authorized [id number] Closed Auto-Generate d Referral 02/18/2023 03/19/2024 1 1 [facility] for referral (narrative)No reason for referral information availableWMadison [facility] Phone: [facility] Narrative* Diagnostic Procedure Only (Routine) - Closed Specialty Diagnoses / Procedures Referred By Contac t Referred To Contact XR IMAGING Diagnoses Pain Procedures XR KNEE GENERAL 4V AP BOTH/PA BOTH/LAT/MERC RIGHT RADIOLOGIC EXAM KNEE COMPLETE 4/MORE VIEWS Mayda Solares DO [address] [place] [address] Xr Imaging Referral ID Status Reason Start Date Expiration Date V isits Requested Visits Authorized [id number] Closed Auto-Generate d Referral 08/17/2021 09/16/2022 1 1 [facility] for visit Narrative* Diagnostic Procedure Only (Routine) - Closed Specialty Diagnoses / Procedures Referred By Contac t Referred To Contact XR IMAGING Diagnoses Chronic pain of left knee Procedures XR KNEE GENERAL 4V AP BOTH/PA BOTH/LAT/MERC LEFT RADIOLOGIC EXAM KNEE COMPLETE 4/MORE VIEWS Mayda Solares DO [address] [place] [address] [place] [address] Referral ID Status Reason Start Date Expiration Date V isits Requested Visits Authorized [id number] Closed Auto-Generate d Referral 07/24/2023 08/22/2024 1 1 [facility] for visit Narrative* Diagnostic Procedure Only (Urgent) - Closed Specialty Diagnoses / Procedures Referred By Contac t Referred To Contact XR IMAGING Diagnoses Pain Procedures XR FOOT GENERAL 3V AP/LAT/OBL RIGHT RADEX FOOT COMPLETE MINIMUM 3 VIEWS Zhanna Hazel, ESAU.TELEVISION EQUIPMENT OPERATOR [address] [place] [address] [place] [address] Referral ID Status Reason Start Date Expiration Date V isits Requested Visits Authorized [id number] Closed Auto-Generate d Referral 02/18/2023 03/19/2024 1 1 [facility] for visit Narrative* Diagnostic Procedure Only (Urgent) - Closed Specialty Diagnoses / Procedures Referred By Contac t Referred To Contact XR IMAGING Diagnoses Pain Procedures XR ANKLE GENERAL 3V AP/LAT/OBL RIGHT RADEX ANKLE COMPLETE MINIMUM 3 VIEWS Zhanna Hazel, FARM PRODUCT PURCHASER.TELEVISION EQUIPMENT OPERATOR [address] [place] [address] [place] [address] Referral ID Status Reason Start Date Expiration Date V isits Requested Visits Authorized [id number] Closed Auto-Generate d Referral 02/18/2023 03/19/2024 [address] [facility] Summary Purpose Family History Relationship Condition Age at Onset Recorded Date/T guera grandfather Leukemia Unknown Deep vein thrombosis (DVT) Unknown grandmother Malignant neoplasm of breast Unknown grandmother Diabetes mellitus Unknown Cardiac disease Unknown Malignant neoplasm of lung Unknown Advance Directives Advance Directive Response Recorded Date/ Time Living Will No June 03 12:42am Power of Psychiatric Lpn No June 03, 2023 12:42am Advance Directive Response Recorded Date/ Time Living Will No May 25 12:56pm Do you have a Healthcare Power of Psychiatric Lpn? No May 25, 2024 12:56pm Living Will No August 17, 2024 1:18am Do you have a Healthcare Power of Psychiatric Lpn? No August 17, 2024 1:18am Advance Directive Response Recorded Date/ Time Living Will No August 17, 2024 1:18am Do you have a Healthcare Power of Psychiatric Lpn? No August 17, 2024 1:18am Do you have a Healthcare Power of Psychiatric Lpn? No December 05, 2024 10:40am Advance Directive Response Recorded Date/ Time Living Will No August 17, 2024 1:18am Do you have a Healthcare Power of Psychiatric Lpn? No August 17, 2024 1:18am Do you have a Healthcare Power of Psychiatric Lpn? No December 05, 2024 10:40am Do you have a Healthcare Power of Psychiatric Lpn? No December 07, 2024 11:14pm Reason for Referral Specialty Diagnoses / Procedures Referred By Contac t Referred To Contact MR IMAGING Diagnoses Chronic pain of left knee Knee OCD Procedures MRI KNEE WO IVCON LT MRI ANY JT LOWER EXTREM W/O CONTRAST Mayda Lemons, DO [address] [place] [address] Mr Imaging Referral ID Status Reason Start Date Expiration Date V isits Requested Visits Authorized [id number] Closed Auto-Generate d Referral 09/28/2021 10/27/2021 1 1 Specialty Diagnoses / Procedures Referred By Contact Referred To Contact [facility] Diagnoses Patellar dislocation, left, subsequent encounter S/P orthopedic surgery, follow-up exam Procedures CONSULT TO PHYSICAL THERAPY PHYSICAL THERAPY EVALUATION HIGH COMPLEX 45 MINS Otoniel Gates PA-C [address] [place] [id number] [facility] [address] [place] [id number] Referral ID Status Reason Start Date Expiration Date Visits Requested Visits Authorized [id number] Pending Review Auto-Generat ed Referral 12/26/2021 12/26/2022 1 1 Referral ID Status Reason Start Date Expiration Date Visits Requested Visits Authorized [id number] Pending Review Auto-Generat ed Referral 12/26/2021 12/26/2022 1 1 Specialty Diagnoses / Procedures Referred By Contac t Referred To Contact [facility] Diagnoses Patellar dislocation, left, subsequent encounter S/P orthopedic surgery, follow-up exam Procedures PT REHAB FOLLOW UP ORDER THERAPEUTIC EXERCISES RE, EA 15 MIN. June Staton, PT [facility] [place] [address] Referral ID Status Reason Start Date Expiration Date Visits Requested Visits Authorized [id number] Pending Review PCP Requested Referral Auto-Generate d Referral 02/04/2022 05/05/2022 1 1 Specialty Diagnoses / Procedures Referred By Contac t Referred To Contact MR IMAGING Diagnoses S/P knee surgery Loose body in knee, left knee Procedures MRI KNEE WO IVCON LEFT MRI ANY JT LOWER EXTREM W/O CONTRAST Mayda Lemons DO [address] [place] [address] [place] [address] Referral ID Status Reason Start Date Expiration Date Visits Requested Visits Authorized [id number] Pending Review Auto-Generat ed Referral 07/31/2023 08/29/2024 1 1 Specialty Diagnoses / Procedures Referred By Contac t Referred To Contact [facility] Diagnoses S/P knee surgery Procedures CONSULT TO PHYSICAL THERAPY PHYSICAL THERAPY EVALUATION HIGH COMPLEX 45 MINS Mayda Solares DO [address] [place] [address] [facility] [address] [address] Referral ID Status Reason Start Date Expiration Date Visits Requested Visits Authorized [id number] Authorized Auto-Generat ed Referral 05/19/2023 05/18/2024 30 30 Specialty Diagnoses / Procedures Referred By Contac t Referred To Contact MR IMAGING Diagnoses S/P knee surgery Loose body in knee, left knee Procedures MRI KNEE WO IVCON LEFT MRI ANY JT LOWER EXTREM W/O CONTRAST Mayda Lemons DO [address] [place] [address] [address] Referral ID Status Reason Start Date Expiration Date V isits Requested Visits Authorized [id number] Closed Auto-Generate d Referral 07/31/2023 11/20/2023 1 1 Specialty Diagnoses / Procedures Referred By Contac t Referred To Contact Diagnoses 2 weeks follow-up Generalized anxiety disorder Procedures CONSULT TO WOMEN'S BEH[facility]IORAL [facility] OFFICE/OUTPATIENT [facility] 60 MINUTES Leena Gaytan APRN.CNM [address] [place] [address] Referral ID Status Reason Start Date Expiration Date Visits Requested Visits Authorized [id number] Authorized PCP Requested Referral 06/17/2024 06/17/2025 1 1 Specialty Diagnoses / Procedures Referred By Natasha burch Referred To Contact Diagnoses Post depression Procedures CONSULT TO PSYCHIATRY OFFICE/OUTPATIENT [facility] 60 MINUTES Nataliia Vail [address] [address] [place] [address] Referral ID Status Reason Start Date Expiration Date Visits Requested Visits Authorized [id number] Pending Review PCP Requested Referral 06/24/2024 06/24/2025 [...] 25, 2024 11:24am Rubella non-immune status, antepartum [facility] 2024 11:24am Chief Complaint Admit Date abd pain August 16, 2024 11: 40pm BLEEDING December 05, 2024 10:4 0am Chief Complaint Admit Date abd pain August 16, 2024 11: 40pm BLEEDING December 05, 2024 10:4 0am bite December 07, 2024 9:08 pm Additional Source Comments INFORMATION SOURCE (unrecogn ized section and content) DATE CREATED AUTHOR 12/10/2019 [facility] DATE CREATED AUTHOR AUTHOR'S ORGANIZ ATION 09/28/2021 [facility] DATE CREATED AUTHOR AUTHOR'S ORGANIZ ATION 04/25/2023 [facility] DATE CREATED AUTHOR AUTHOR'S ORGANIZ ATION 11/28/2024 [facility] DATE CREATED AUTHOR AUTHOR'S ORGANIZ ATION 12/07/2024 [facility] Source Comments (unrecognize d section and content) In the event this informatio n is protected by the Federal Confidentiality of Alcohol and Drug Abuse Patient Records regulations: The Federal rules restrict any use of the information to criminally investigate or prosecute any alcohol or drug abuse patient.[facility] the event this information is protected by the Federal Confidentiality of Alcohol and Drug Abuse Patient Records regulations: The Federal rules restrict any use of the information to criminally investigate or prosecute any alcohol or drug abuse patient.[facility] the event this information is protected by the Federal Confidentiality of Alcohol and Drug Abuse Patient Records regulations: The Federal rules restrict any use of the information to criminally investigate or prosecute any alcohol or drug abuse patient.[facility] the event this information is protected by the Federal Confidentiality of Alcohol and Drug Abuse Patient Records regulations: The Federal rules restrict any use of the information to criminally investigate or prosecute any alcohol or drug abuse patient.[facility] the event this information is protected by the Federal Confidentiality of Alcohol and Drug Abuse Patient Records regulations: The Federal rules restrict any use of the information to criminally investigate or prosecute any alcohol or drug abuse patient.[facility] the event this information is protected by the Federal Confidentiality of Alcohol and Drug Abuse Patient Records regulations: The Federal rules restrict any use of the information to criminally investigate or prosecute any alcohol or drug abuse patient.[facility] the event this information is protected by the Federal Confidentiality of Alcohol and Drug Abuse Patient Records regulations: The Federal rules restrict any use of the information to criminally investigate or prosecute any alcohol or drug abuse patient.[facility] the event this information is protected by the Federal Confidentiality of Alcohol and Drug Abuse Patient Records regulations: The Federal rules restrict any use of the information to criminally investigate or prosecute any alcohol or drug abuse patient.[facility] the event this information is protected by the Federal Confidentiality of Alcohol and Drug Abuse Patient Records regulations: The Federal rules restrict any use of the information to criminally investigate or prosecute any alcohol or drug abuse patient.[facility] HospitalIn the event this information is protected by the Federal Confidentiality of Alcohol and Drug Abuse Patient Records regulations: The Federal rules restrict any use of the information to criminally investigate or prosecute any alcohol or drug abuse patient.[facility]In the event this information is protected by the Federal Confidentiality of Alcohol and Drug Abuse Patient Records regulations: The Federal rules restrict any use of the information to criminally investigate or prosecute any alcohol or drug abuse patient.[facility]In the event this information is protected by the Federal Confidentiality of Alcohol and Drug Abuse Patient Records regulations: The Federal rules restrict any use of the information to criminally investigate or prosecute any alcohol or drug abuse patient.[facility]In the event this information is protected by the Federal Confidentiality of Alcohol and Drug Abuse Patient Records regulations: The Federal rules restrict any use of the information to criminally investigate or prosecute any alcohol or drug abuse patient.[facility]In the event this information is protected by the Federal Confidentiality of Alcohol and Drug Abuse Patient Records regulations: The Federal rules restrict any use of the information to criminally investigate or prosecute any alcohol or drug abuse patient.[facility] HospitalIn the event this information is protected by the Federal Confidentiality of Alcohol and Drug Abuse Patient Records regulations: The Federal rules restrict any use of the information to criminally investigate or prosecute any alcohol or drug abuse patient.[facility] HospitalIn the event this information is protected by the Federal Confidentiality of Alcohol and Drug Abuse Patient Records regulations: The Federal rules restrict any use of the information to criminally investigate or prosecute any alcohol or drug abuse patient.[facility] HospitalIn the event this information is protected by the Federal Confidentiality of Alcohol and Drug Abuse Patient Records regulations: The Federal rules restrict any use of the information to criminally investigate or prosecute any alcohol or drug abuse patient.[facility] HospitalIn the event this information is protected by the Federal Confidentiality of Alcohol and Drug Abuse Patient Records regulations: The Federal rules restrict any use of the information to criminally investigate or prosecute any alcohol or drug abuse patient.[facility] HospitalIn the event this information is protected by the Federal Confidentiality of Alcohol and Drug Abuse Patient Records regulations: The Federal rules restrict any use of the information to criminally investigate or prosecute any alcohol or drug abuse patient.[facility] HospitalIn the event this information is protected by the Federal Confidentiality of Alcohol and Drug Abuse Patient Records regulations: The Federal rules restrict any use of the information to criminally investigate or prosecute any alcohol or drug abuse patient.[facility] HospitalIn the event this information is protected by the Federal Confidentiality of Alcohol and Drug Abuse Patient Records regulations: The Federal rules restrict any use of the information to criminally investigate or prosecute any alcohol or drug abuse patient.[facility] HospitalIn the event this information is protected by the Federal Confidentiality of Alcohol and Drug Abuse Patient Records regulations: The Federal rules restrict any use of the information to criminally investigate or prosecute any alcohol or drug abuse patient.[facility] HospitalIn the event this information is protected by the Federal Confidentiality of Alcohol and Drug Abuse Patient Records regulations: The Federal rules restrict any use of the information to criminally investigate or prosecute any alcohol or drug abuse patient.[facility] HospitalIn the event this information is protected by the Federal Confidentiality of Alcohol and Drug Abuse Patient Records regulations: The Federal rules restrict any use of the information to criminally investigate or prosecute any alcohol or drug abuse patient.[facility] HospitalIn the event this information is protected by the Federal Confidentiality of Alcohol and Drug Abuse Patient Records regulations: The Federal rules restrict any use of the information to criminally investigate or prosecute any alcohol or drug abuse patient.[facility] HospitalIn the event this information is protected by the Federal Confidentiality of Alcohol and Drug Abuse Patient Records regulations: The Federal rules restrict any use of the information to criminally investigate or prosecute any alcohol or drug abuse patient.[facility] HospitalIn the event this information is protected by the Federal Confidentiality of Alcohol and Drug Abuse Patient Records regulations: The Federal rules restrict any use of the information to criminally investigate or prosecute any alcohol or drug abuse patient.[facility] HospitalIn the event this information is protected by the Federal Confidentiality of Alcohol and Drug Abuse Patient Records regulations: The Federal rules restrict any use of the information to criminally investigate or prosecute any alcohol or drug abuse patient.[facility] HospitalIn the event this information is protected by the Federal Confidentiality of Alcohol and Drug Abuse Patient Records regulations: The Federal rules restrict any use of the information to criminally investigate or prosecute any alcohol or drug abuse patient.[facility] HospitalIn the event this information is protected by the Federal Confidentiality of Alcohol and Drug Abuse Patient Records regulations: The Federal rules restrict any use of the information to criminally investigate or prosecute any alcohol or drug abuse patient.[facility] HospitalIn the event this information is protected by the Federal Confidentiality of Alcohol and Drug Abuse Patient Records regulations: The Federal rules restrict any use of the information to criminally investigate or prosecute any alcohol or drug abuse patient.[facility] HospitalIn the event this information is protected by the Federal Confidentiality of Alcohol and Drug Abuse Patient Records regulations: The Federal rules restrict any use of the information to criminally investigate or prosecute any alcohol or drug abuse patient.[facility] HospitalIn the event this information is protected by the Federal Confidentiality of Alcohol and Drug Abuse Patient Records regulations: The Federal rules restrict any use of the information to criminally investigate or prosecute any alcohol or drug abuse patient.[facility] HospitalIn the event this information is protected by the Federal Confidentiality of Alcohol and Drug Abuse Patient Records regulations: The Federal rules restrict any use of the information to criminally investigate or prosecute any alcohol or drug abuse patient.[facility] HospitalIn the event this information is protected by the Federal Confidentiality of Alcohol and Drug Abuse Patient Records regulations: The Federal rules restrict any use of the information to criminally investigate or prosecute any alcohol or drug abuse patient.[facility] HospitalIn the event this information is protected by the Federal Confidentiality of Alcohol and Drug Abuse Patient Records regulations: The Federal rules restrict any use of the information to criminally investigate or prosecute any alcohol or drug abuse patient.[facility] HospitalIn the event this information is protected by the Federal Confidentiality of Alcohol and Drug Abuse Patient Records regulations: The Federal rules restrict any use of the information to criminally investigate or prosecute any alcohol or drug abuse patient.[facility] HospitalIn the event this information is protected by the Federal Confidentiality of Alcohol and Drug Abuse Patient Records regulations: The Federal rules restrict any use of the information to criminally investigate or prosecute any alcohol or drug abuse patient.[facility] [facility] HospitalIn the event this information is protected by the Federal Confidentiality of Alcohol and Drug Abuse Patient Records regulations: The Federal rules restrict any use of the information to criminally investigate or prosecute any alcohol or drug abuse patient.[facility] HospitalIn the event this information is protected by the Federal Confidentiality of Alcohol and Drug Abuse Patient Records regulations: The Federal rules restrict any use of the information to criminally investigate or prosecute any alcohol or drug abuse patient.[facility] HospitalIn the event this information is protected by the Federal Confidentiality of Alcohol and Drug Abuse Patient Records regulations: The Federal rules restrict any use of the information to criminally investigate or prosecute any alcohol or drug abuse patient.[facility] HospitalIn the event this information is protected by the Federal Confidentiality of Alcohol and Drug Abuse Patient Records regulations: The Federal rules restrict any use of the information to criminally investigate or prosecute any alcohol or drug abuse patient.[facility] HospitalIn the event this information is protected by the Federal Confidentiality of Alcohol and Drug Abuse Patient Records regulations: The Federal rules restrict any use of the information to criminally investigate or prosecute any alcohol or drug abuse patient.[facility] HospitalIn the event this information is protected by the Federal Confidentiality of Alcohol and Drug Abuse Patient Records regulations: The Federal rules restrict any use of the information to criminally investigate or prosecute any alcohol or drug abuse patient.[facility] HospitalIn the event this information is protected by the Federal Confidentiality of Alcohol and Drug Abuse Patient Records regulations: The Federal rules restrict any use of the information to criminally investigate or prosecute any alcohol or drug abuse patient.[facility] HospitalIn the event this information is protected by the Federal Confidentiality of Alcohol and Drug Abuse Patient Records regulations: The Federal rules restrict any use of the information to criminally investigate or prosecute any alcohol or drug abuse patient.[facility] HospitalIn the event this information is protected by the Federal Confidentiality of Alcohol and Drug Abuse Patient Records regulations: The Federal rules restrict any use of the information to criminally investigate or prosecute any alcohol or drug abuse patient.[facility] HospitalIn the event this information is protected by the Federal Confidentiality of Alcohol and Drug Abuse Patient Records regulations: The Federal rules restrict any use of the information to criminally investigate or prosecute any alcohol or drug abuse patient.[facility] HospitalIn the event this information is protected by the Federal Confidentiality of Alcohol and Drug Abuse Patient Records regulations: The Federal rules restrict any use of the information to criminally investigate or prosecute any alcohol or drug abuse patient.[facility] HospitalIn the event this information is protected by the Federal Confidentiality of Alcohol and Drug Abuse Patient Records regulations: The Federal rules restrict any use of the information to criminally investigate or prosecute any alcohol or drug abuse patient.[facility] HospitalIn the event this information is protected by the Federal Confidentiality of Alcohol and Drug Abuse Patient Records regulations: The Federal rules restrict any use of the information to criminally investigate or prosecute any alcohol or drug abuse patient.[facility] HospitalIn the event this information is protected by the Federal Confidentiality of Alcohol and Drug Abuse Patient Records regulations: The Federal rules restrict any use of the information to criminally investigate or prosecute any alcohol or drug abuse patient.[facility] HospitalIn the event this information is protected by the Federal Confidentiality of Alcohol and Drug Abuse Patient Records regulations: The Federal rules restrict any use of the information to criminally investigate or prosecute any alcohol or drug abuse patient.[facility] HospitalIn the event this information is protected by the Federal Confidentiality of Alcohol and Drug Abuse Patient Records regulations: The Federal rules restrict any use of the information to criminally investigate or prosecute any alcohol or drug abuse patient.[facility] HospitalIn the event this information is protected by the Federal Confidentiality of Alcohol and Drug Abuse Patient Records regulations: The Federal rules restrict any use of the information to criminally investigate or prosecute any alcohol or drug abuse patient.[facility] HospitalIn the event this information is protected by the Federal Confidentiality of Alcohol and Drug Abuse Patient Records regulations: The Federal rules restrict any use of the information to criminally investigate or prosecute any alcohol or drug abuse patient.[facility] HospitalIn the event this information is protected by the Federal Confidentiality of Alcohol and Drug Abuse Patient Records regulations: The Federal rules restrict any use of the information to criminally investigate or prosecute any alcohol or drug abuse patient.[facility] HospitalIn the event this information is protected by the Federal Confidentiality of Alcohol and Drug Abuse Patient Records regulations: The Federal rules restrict any use of the information to criminally investigate or prosecute any alcohol or drug abuse patient.[facility] HospitalIn the event this information is protected by the Federal Confidentiality of Alcohol and Drug Abuse Patient Records regulations: The Federal rules restrict any use of the information to criminally investigate or prosecute any alcohol or drug abuse patient.[facility] HospitalIn the event this information is protected by the Federal Confidentiality of Alcohol and Drug Abuse Patient Records regulations: The Federal rules restrict any use of the information to criminally investigate or prosecute any alcohol or drug abuse patient.[facility] HospitalIn the event this information is protected by the Federal Confidentiality of Alcohol and Drug Abuse Patient Records regulations: The Federal rules restrict any use of the information to criminally investigate or prosecute any alcohol or drug abuse patient.[facility] HospitalIn the event this information is protected by the Federal Confidentiality of Alcohol and Drug Abuse Patient Records regulations: The Federal rules restrict any use of the information to criminally investigate or prosecute any alcohol or drug abuse patient.[facility] HospitalIn the event this information is protected by the Federal Confidentiality of Alcohol and Drug Abuse Patient Records regulations: The Federal rules restrict any use of the information to criminally investigate or prosecute any alcohol or drug abuse patient.[facility] HospitalIn the event this information is protected by the Federal Confidentiality of Alcohol and Drug Abuse Patient Records regulations: The Federal rules restrict any use of the information to criminally investigate or prosecute any alcohol or drug abuse patient.[facility] HospitalIn the event this information is protected by the Federal Confidentiality of Alcohol and Drug Abuse Patient Records regulations: The Federal rules restrict any use of the information to criminally investigate or prosecute any alcohol or drug abuse patient.[facility] HospitalIn the event this information is protected by the Federal Confidentiality of Alcohol and Drug Abuse Patient Records regulations: The Federal rules restrict any use of the information to criminally investigate or prosecute any alcohol or drug abuse patient.[facility] HospitalIn the event this information is protected by the Federal Confidentiality of Alcohol and Drug Abuse Patient Records regulations: The Federal rules restrict any use of the information to criminally investigate or prosecute any alcohol or drug abuse patient.[facility] HospitalIn the event this information is protected by the Federal Confidentiality of Alcohol and Drug Abuse Patient Records regulations: The Federal rules restrict any use of the information to criminally investigate or prosecute any alcohol or drug abuse patient.[facility] HospitalIn the event this information is protected by the Federal Confidentiality of Alcohol and Drug Abuse Patient Records regulations: The Federal rules restrict any use of the information to criminally investigate or prosecute any alcohol or drug abuse patient.[facility] HospitalIn the event this information is protected by the Federal Confidentiality of Alcohol and Drug Abuse Patient Records regulations: The Federal rules restrict any use of the information to criminally investigate or prosecute any alcohol or drug abuse patient.[facility] HospitalIn the event this information is protected by the Federal Confidentiality of Alcohol and Drug Abuse Patient Records regulations: The Federal rules restrict any use of the information to criminally investigate or prosecute any alcohol or drug abuse patient.[facility] HospitalIn the event this information is protected by the Federal Confidentiality of Alcohol and Drug Abuse Patient Records regulations: The Federal rules restrict any use of the information to criminally investigate or prosecute any alcohol or drug abuse patient.[facility] HospitalIn the event this information is protected by the Federal Confidentiality of Alcohol and Drug Abuse Patient Records regulations: The Federal rules restrict any use of the information to criminally investigate or prosecute any alcohol or drug abuse patient.[facility] HospitalIn the event this information is protected by the Federal Confidentiality of Alcohol and Drug Abuse Patient Records regulations: The Federal rules restrict any use of the information to criminally investigate or prosecute any alcohol or drug abuse patient.[facility] HospitalIn the event this information is protected by the Federal Confidentiality of Alcohol and Drug Abuse Patient Records regulations: The Federal rules restrict any use of the information to criminally investigate or prosecute any alcohol or drug abuse patient.[facility] HospitalIn the event this information is protected by the Federal Confidentiality of Alcohol and Drug Abuse Patient Records regulations: The Federal rules restrict any use of the information to criminally investigate or prosecute any alcohol or drug abuse patient.[facility] HospitalIn the event this information is protected by the Federal Confidentiality of Alcohol and Drug Abuse Patient Records regulations: The Federal rules restrict any use of the information to criminally investigate or prosecute any alcohol or drug abuse patient.[facility] HospitalIn the event this information is protected by the Federal Confidentiality of Alcohol and Drug Abuse Patient Records regulations: The Federal rules restrict any use of the information to criminally investigate or prosecute any alcohol or drug abuse patient.[facility] HospitalIn the event this information is protected by the Federal Confidentiality of Alcohol and Drug Abuse Patient Records regulations: The Federal rules restrict any use of the information to criminally investigate or prosecute any alcohol or drug abuse patient.[facility] HospitalIn the event this information is protected by the Federal Confidentiality of Alcohol and Drug Abuse Patient Records regulations: The Federal rules restrict any use of the information to criminally investigate or prosecute any alcohol or drug abuse patient.[facility] HospitalIn the event this information is protected by the Federal Confidentiality of Alcohol and Drug Abuse Patient Records regulations: The Federal rules restrict any use of the information to criminally investigate or prosecute any alcohol or drug abuse patient.[facility] HospitalIn the event this information is protected by the Federal Confidentiality of Alcohol and Drug Abuse Patient Records regulations: The Federal rules restrict any use of the information to criminally investigate or prosecute any alcohol or drug abuse patient.[facility] HospitalIn the event this information is protected by the Federal Confidentiality of Alcohol and Drug Abuse Patient Records regulations: The Federal rules restrict any use of the information to criminally investigate or prosecute any alcohol or drug abuse patient.[facility] Care Teams (unrecognized sec tion and content) Progressive Die Maker Relationship Specialty Start Date End Date Ren Carlson MD [address] [place] [address] PCP - General 04 Progressive Die Maker Relationship Specialty Start Date End Date Ren Carlson MD [address] [place] [address] PCP - General 04 Progressive Die Maker Relationship Specialty Start Date End Date PlayRen bernard MD [address] [place] [address] PCP - General 04 Progressive Die Maker Relationship Specialty Start Date End Date PlayRen bernard MD [address] [place] [address] PCP - General 04 Progressive Die Maker Relationship Specialty Start Date End Date PlayRen bernard MD [address] [place] [address] PCP - General 04 Progressive Die Maker Relationship Specialty Start Date End Date Ren Carlson MD [address] [place] [address] PCP - General 04 Progressive Die Maker Relationship Specialty Start Date End Date Ren Carlson MD [address] [place] [address] PCP - General 04 Progressive Die Maker Relationship Specialty Start Date End Date Ren Carlson MD [address] [place] [address] PCP - General 04 Progressive Die Maker Relationship Specialty Start Date End Date Ren Carlson MD [address] [place] [address] PCP - General 04 Progressive Die Maker Relationship Specialty Start Date End Date PlayRen bernard MD [address] [place] [address] PCP - General 04 Progressive Die Maker Relationship Specialty Start Date End Date Playl, Ren M, MD [address] [place] [address] PCP - General 04 Team Status: Active [...] December 05, 2024 End: December 05, 2024 Team Status: Inactive Member Role/Relationship Status Dates No Primary Care Physician Primary Care Provider Active Start: December 07, 2024 End: December 07, 2024 Dr. Vlad Jay , Emergency Provider Active Start: December 07, 2024 End: December 07, 2024 Reason for Visit (unrecogniz ed section and content) Reason Comments Physical Therapy Specialty Diagnoses / Procedures Referred By Natasha t Referred To Contact [facility] Diagnoses S/P knee surgery Procedures CONSULT TO PHYSICAL THERAPY PHYSICAL THERAPY EVALUATION HIGH COMPLEX 45 MINS Mayda Solares DO [address] [facility] [address] [place] [address] [facility] [address] [address] Referral ID Status Reason Start Date Expiration Date Visits Requested Visits Authorized [id number] Authorized Auto-Generat ed Referral 05/19/2023 05/18/2024 30 30 Reason Comments PT Progress Note Specialty Diagnoses / Procedures Referred By Contact Referred To Contact [facility] Diagnoses Patellar dislocation, left, subsequent encounter S/P orthopedic surgery, follow-up exam Procedures CONSULT TO PHYSICAL THERAPY PHYSICAL THERAPY EVALUATION HIGH COMPLEX 45 MINS THERAPEUTIC EXERCISES RE, EA 15 MIN. Otoniel Gates PA-C [address] [place] [address] [facility] [address] [address] Referral ID Status Reason Start Date Expiration Date Visits Requested Visits Authorized [id number] Authorized Auto-Generat ed Referral 12/26/2021 05/18/2022 99 99 Reason Comments New Knee Pain Swelling Reason Comments [facility] Scheduling Specialty Diagnoses / Procedures Referred By Natasha t Referred To Contact [facility] Diagnoses Chronic pain of left knee Knee OCD Procedures MRI KNEE WO IVCON LT MRI ANY JT LOWER EXTREM W/O CONTRAST MATRL Mayda Solares DO [address] [place] [address] Mr Imaging Referral ID Status Reason Start Date Expiration Date V isits Requested Visits Authorized [id number] Closed Auto-Generate d Referral 09/28/2021 10/27/2021 1 [...] RE, EA 15 MIN. Otoniel Gates PA-C [address] [place] [address] [facility] [place] [address] [place] [address] Reason Comments Post Op 7 weeks 6 [...] EXTREM W/O CONTRAST Mayda Lemons DO [address] [place] [address] [address] Referral ID Status Reason Start Date Expiration Date V isits Requested Visits Authorized [id number] Closed Auto-Generate d Referral 07/31/2023 11/20/2023 1 1 Reason Comments Nausea x 3 days, 7 weeks pr egnant Reason Comments Yearly Exam Contact lens evaluation Reason Comments Initial OB Visit Reason Comments PRAF Initial PRAF Reason Comments US Specialty Diagnoses / Procedures Referred By Natasha t Referred To Contact [facility] Diagnoses 12 weeks gestation of Procedures NUCHAL TRANSLUCENCY WHI US NUCHAL TRANSLUCENCY 1ST GESTATION Anitra Caldwell APRN.ELIAZAR [address] [place] [address] [address] Referral ID Status Reason Start Date Expiration Date Visits Requested Visits Authorized [id number] New Request Auto-Generat ed Referral 11/28/2023 11/27/2024 1 1 Reason Onset Date Comments Care 11/28/2023 Reason Comments Nausea & Vomiting Reason Comments Nausea & Vomiting With 14 weeks pregna ncy Reason Onset Date Comments Care 12/23/2023 Reason Onset Date Comments Care 01/23/2024 Specialty Diagnoses / Procedures Referred By Contac t Referred To Contact [facility] Diagnoses Supervision of normal first teen in second trimester Procedures OBSTETRIC ULTRASOUND WHI US PREG UTERUS AFTER 1ST TRIMEST GESTATION Anitra Caldwell APRN.ELIAZAR [address] [place] [address] [address] Referral ID Status Reason Start Date Expiration Date V isits Requested Visits Authorized [id number] Closed Auto-Generate d Referral 11/28/2023 11/27/[address] Contractor - Other PRAF Reason Comments ULTRASOUND Reason Onset Date Comments Refill Request 02/12/2024 Reason Onset Date Comments Care 02/25/2024 Reason Comments Centering Reason Comments Sore Throat Runny nose x 2 days Reason Comments Results Reason Onset Date Comments Care 03/16/2024 Reason Onset Date Comments Care 03/29/2024 Reason Onset Date Comments Care 04/21/2024 Specialty Diagnoses / Procedures Referred By Contac t Referred To Contact [facility] Diagnoses Low-lying placenta Supervision of normal first teen in second trimester Procedures OBSTETRIC ULTRASOUND WHI US PREG UTERUS AFTER 1ST TRIMEST GESTATION Anitra Caldwell APRN.CNM [address] [place] [address] [place] [email or web address] [address] Referral ID Status Reason Start Date Expiration Date V isits Requested Visits Authorized [id number] Closed Auto-Generate d Referral 01/26/2024 01/25/2025 1 [...] Referred By Natasha burch Referred To Contact [facility] Diagnoses Encounter for IUD insertion Procedures INSERT INTRAUTERINE DEVICE INSERT INTRAUTERINE DEVICE Leena Gaytan APRN.[facility] [address] [place] [address] Phone: tel: fax: [facility] [address] [place] [address] Referral ID Status Reason Start Date Expiration Date V isits Requested Visits Authorized [id number] Closed Auto-Generate d Referral 07/28/2024 07/28/2025 1 1 Reason Comments Vaginal Bleeding Goals (unrecognized section and content) Goals may be documented in a n alternate sectionGoals may be documented in an alternate sectionGoals may be documented in an [...] BE BASED ON THE PRIMARY CLINICAL RECORDS. [facility] [employer] [facility]. provides no warranty or guarantee of the accuracy or completeness of information in this document.
[2024-12-08] MEDS: Piperacil/Tazobactam 3.375 GM in 0.9% Normal Saline (50mL MB+) 50 ML IV ×3 (06:39→19:47)
--- NOTE | 2024-12-08 06:39 | EX.ED.DYSGE1 ---
HPI History of Present Illness Chief Complaint: Wound Check Informant: patient Narrative Narrative: Patient is a 19-year-old female with no significant past medical history. She was seen yesterday evening secondary to being bit in the hand by a cat at the [facility]. She was started on Augmentin and her tetanus status was updated. She states that she awoke this morning secondary to persistent pain in the right hand/arm. She states when she looked at the area there is now red streaking extending from the area where she was bitten in the right finger into her upper arm/armpit region. She states she still does not have any subjective or documented fever. However she was advised that if streaking occurs this could indicate worsening infection and therefore she presents for evaluation. Patient is left-hand dominant [facility] Medical History Anxiety Encounter for screening for COVID-19 Home Medications ?Medication ?Instructions ?Recorded ?Last Taken ?Type vit no.95-ferrous 1 tab PO DAILY 03/21/24 05/24/24 21:00 History fumarate 28 mg-folic acid 800 mcg 1 TAB tablet () pantoprazole 40 mg granules 40 mg PO DAILY 05/25/24 05/24/24 09:00 History delayed-release for susp in packet 40 mg (Protonix) sennosides 8.6 mg-docusate sodium 1 - 2 tab PO DAILY PRN PRN 05/27/24 Unknown Rx 50 mg tablet (Stimulant Laxative Constipation #30 tabs Plus) hydrocodone-acetaminophen 5-325mg 1 tab PO Q4H PRN pain 2 days #8 08/17/24 Unknown Rx 5mg-325mg tabs amoxicillin 875 mg-potassium 1 tab PO BID 10 days #20 tabs 12/07/24 Unknown Rx clavulanate 125 mg tablet oxycodone-acetaminophen 5 mg-325 1 tab PO Q6H PRN pain 3 days #12 12/07/24 Unknown Rx mg tablet (Percocet) tabs Allergy/AdvReac Type Severity Reaction Status Date / Time lactase (From Dairy Aid) Allergy Mild Abdominal Verified 12/05/24 10:40 cramping Family History Grandfather Leukemia DVT (deep venous thrombosis) Grandmother Breast cancer Grandmother Diabetes Heart disease Lung cancer Surgical History History of surgery History of removal of cyst H/O tooth extraction Social History Smoking Status: Never smoker alcohol intake: never what type of physical activity do you participate in: additional details: gym, sports seatbelt use: always ROS ROS ED Constitutional Constitutional ED: Denies chills or fever(s) ENT ENT ED: Denies sore throat Cardiovascular Cardiovascular: Denies chest pain Respiratory/Chest Respiratory/Chest: Denies cough or dyspnea Gastrointestinal Gastrointestinal: Denies abdominal pain, diarrhea, nausea or vomiting Musculoskeletal Musculoskeletal: Reports other Details: Positive right hand/arm pain Integumentary Reports other Details: Cat bite bilateral hand with streaking right arm Neurologic Neurologic: Denies headache(s), paresthesias or weakness Hematologic/Lymphatic Hematologic/Lymphatic: Denies easy bleeding or easy bruising EXAM Physical Exam Const Vital Signs: 12/08/24 06:03 Temperature 98.6 F Temperature Source Oral Pulse Rate 84 Respiratory Rate 16 Blood Pressure 120/87 H Blood Pressure Mean 98 Pulse Ox 100 Oxygen Delivery Method Room Air Positive well nourished and well developed General Appearance ED: well developed HEENT HEENT Narrative: Normocephalic atraumatic Eyes PERRL and EOMs intact bilaterally General Eye ED: Negative for scleral icterus Neck supple Neck Narrative: No nuchal rigidity or meningeal signs Resp normal respiratory effort and clear to auscultation bilaterally Cardio regular rate and regular rhythm Extremity Extremity Narrative: Right upper extremity is neurovascularly intact; AIN/PIN are intact normal. Patient has soft tissue swelling with erythema and 2 puncture wounds to the finger pad of the right third digit. There is no purulent drainage or discharge noted. The pad is soft and compressible going against felon. No nailbed involvement. There is now lymphangitic streaking extending from the lateral aspect of the digit across the forearm and humerus into the axilla. All compartments are soft and compressible going against compartment syndrome Patient has a scratch to the palmar aspect of the left hand without surrounding erythema or streaking. Neuro oriented x3, CN's II-XII intact bilaterally and no sensory deficits noted Sensorium / Orientation: alert Motor Exam: strength 5/5 throughout Psych mental status grossly normal Skin Skin Narrative: Soft tissue change to the right hand/arm and left hand consistent with cat bite and scratch as documented above MDM MDM MDM Narrative Medical decision making narrative: Patient was seen in the ER within 12 hours of the initial cat bite. She does not have history of immunosuppression nor is she taking immunosuppressive medication. At that time there was no lymphangitic streaking or fever or signs of felon. Therefore it was felt that she would only be started on antibiotics and have her tetanus updated and this should help prevent any worsening infection. However within 6 to 7 hours of being discharged from the ER she then developed streaking from her initial area of injury in the right third finger pad all the way up into the axilla concerning for developing systemic infection. Secondary to this an x-ray was obtained to rule out retained foreign body developing signs of osteomyelitis or free air and basic labs were obtained as well. X-ray revealed no acute findings and blood work showed no leukocytosis or left shift. However because of the quick onset of worsening infection the case was discussed with hand surgeon Dr. Min and patient was given IV Zosyn. After discussing the case with the hand surgeon he recommends that the patient be admitted for IV antibiotics and potential washout based on the quick spread of the infection. He recommends vancomycin be added to the Zosyn and that the patient be admitted to the medicine service for continued treatment. Secondary to his medicine was contacted and they agreed to accept the patient for continued care. History & Record Review Discussion w/independent historian: Patient Lab Data Attestation: I reviewed the patient's lab results. Labs: Laboratory Results - last 24 hr 12/08/24 06:27 WBC 4.9 RBC 4.10 L Hgb 12.2 Hct 34.7 L MCV 84.6 MCH 29.8 MCHC 35.2 RDW Std Deviation 41.1 RDW Coeff of Kirsten 13.4 Plt Count 159 MPV 11.2 Immature Gran % (Auto) 0.200 Neut % (Auto) 49.2 Lymph % (Auto) 41.4 H [place] % (Auto) 7.6 Eos % (Auto) 1.6 Baso % (Auto) 0.0 Absolute Neuts (auto) 2.4 Absolute Lymphs (auto) 2.03 Nucleated RBC % 0 ESR < 1 Radiography Diagnostic Testing: Clinical Impression(s) from Imaging Studies Hand X-Ray 12/08/24 06:46 IMPRESSION: No fracture or dislocation is identified. Reading Location: [facility] X-ray of the right hand as interpreted by the emergency medicine physician reveals no signs of osteomyelitis fracture free air or retained foreign object Management Discussion w/another healthcare provider: Hospitalist and Hospital Medicine Director Discharge Plan Triage Chief Complaint: Wound Check ED Provider: Vlad Jay Dx/Rx/DC Orders Clinical Impression: Cat bite, Anxiety Prescriptions: No Action PNV cmb#95-ferrous fumarate-FA [] 28 mg iron- 800 mcg tablet 1 tab PO DAILY pantoprazole [Protonix] [address] for susp in packet 40 mg PO DAILY sennosides-docusate sodium [Stimulant Laxative Plus] 8.6-50 mg Tablet 1 - 2 tab PO DAILY PRN PRN (Reason: Constipation) Qty: 30 0RF hydrocodone-acetaminophen 5-325 mg tablet 1 tab PO Q4H PRN (Reason: pain) 2 Days Qty: 8 0RF amoxicillin-pot clavulanate 875-125 mg tablet 1 tab PO BID 10 Days Qty: 20 0RF oxycodone-acetaminophen [Percocet] 5-325 mg tablet 1 tab PO Q6H PRN (Reason: pain) 3 Days Qty: 12 0RF Primary Care Provider: Care Physician,No Primary Referrals: Care Physician,No Primary [Primary Care Provider] - Print Language: Danish Disposition Disposition: [facility]
--- NOTE | 2024-12-08 06:46 | RAD_ITS ---
PROCEDURE: HAND MIN 3 VIEWS 12/08/2024 REASON FOR EXAM: CAT BITE TECHNIQUE: HAND MIN 3 VIEWS COMPARISON: None FINDINGS: There is no fracture or dislocation. There is no visible radiopaque foreign body or focal soft tissue abnormality. Mineralization is normal. There is no visible atherosclerosis. RAD/Hand Min 3 Views IMPRESSION: No fracture or dislocation is identified. Reading Location: [facility]
[2024-12-08 06:49] LABS: Hematocrit 34.7 % (37-47); Hemoglobin 12.2 g/dL (12.0-15.0); Immature Granulocytes Count 0.010 X10^3/uL (0.0-0.0); Mean Corp Hgb Conc 35.2 g/dL (32-36); Mean Corpuscular Volume 84.6 fL (81-99); Mean Platelet Vol. 11.2 fl (6.2-12.0); NRBC Flagged by Analyzer 0 % (0-5); Platelet Count 159 K/mm3 (150-450); RBC Distribution Width CV 13.4 % (11.6-14.6); RBC Distribution Width SD 41.1 fl (35.1-43.9); Red Blood Count 4.10 M/mm3 (4.2-5.4); White Blood Count 4.9 K/mm3 (4.4-11.0)
--- NOTE | 2024-12-08 07:19 | CON.PCM.SX_ITS ---
Assessment & Plan Assessment/Plan (1) Cat bite: (2) Cat bite: PLAN: Patient has cellulitis of the index finger on the right side and streaking erythema on the right side of the forearm and arm. She also has cellulitis on the left dorsal thumb. Recommend admission for IV antibiotics. Punch biopsy 3 mm tool used to open the scabs overlying the two larger cat bites on both the right index and the left thumb (patient gave verbal consent) to improve effectiveness of Dial soap soaks. Culture was also taken. Follow-up the wound cultures Elevate both extremities with warm elevators Agree with broad-spectrum antibiotics for now. 3 times daily Dial soap soaks (3) Cellulitis: HPI Consult Data Date of Consult: 12/08/24 Attending Care Provider: Beatris Fletcher is a delightful 19-year-old female who presents as a consult after a cat bite to the index finger tip on the right hand and the left dorsal thumb on the left hand. The bite occurred yesterday while she was petting/working with a feral cat at the [employer]. The cat is currently under observation for rabies protocol. Patient's tetanus has been updated. She was discharged on Augmentin last night when she presented to the emergency department but presented today with streaking erythema up the right arm and forearm. She reports sharp severe pain at the fingertip of the right index finger worsened by movements and improved with rest and elevation. Same pain is on the dorsum of the left thumb. She denies any pain in the palm or pain with flexion of her fingers. She is being admitted to medicine for treatment with IV antibiotics [facility] Medical History Anxiety Encounter for screening for COVID-19 Home Medications ?Medication ?Instructions ?Recorded ?Last Taken ?Type vit no.95-ferrous 1 tab PO DAILY SUPPLEMENT 1 05/21/23 05/24/24 21:00 History fumarate 28 mg-folic acid 800 mcg 1 TA B tablet () pantoprazole 40 mg granules 40 mg PO PRN INDIGESTION 0 05/25/24 05/24/24 09:00 History delayed-release for susp in packet 40 mg (Protonix) sennosides 8.6 mg-docusate sodium 1 - 2 tab PO DAILY P RN PRN 05/27/24 Unknown Rx 50 mg tablet (Stimulant Laxative Constipation #30 tabs Plus) hydrocodone-acetaminophen 5-325mg 1 tab PO Q4H PRN pako n 2 days #8 08/17/24 Unknown Rx 5mg-325mg tabs amoxicillin 875 mg-potassium 1 tab PO BID 10 days #20 tabs 12/07/24 Unknown Rx clavulanate 125 mg tablet oxycodone-acetaminophen 5 mg-325 1 tab PO Q6H PRN pain 3 days #12 12/07/24 Unknown Rx mg tablet (Percocet) tabs lactase 3,000 unit tablet (Dairy 3,000 unit PO .WITH L ACTOSE 12/08/24 Unknown History Relief) PRODUCT PRN lactose intolera nt sertraline 25 mg tablet (Zoloft) 50 mg PO DAILY ANXIET Y 12/08/24 Unknown History Allergy/AdvReac Type Severity Reaction Status Date / Time lactase (From Dairy Aid) Allergy Mild Abdominal Verified 12/05/24 10:40 cramping Family History Grandfather Leukemia DVT (deep venous thrombosis) Grandmother Breast cancer Grandmother Diabetes Heart disease Lung cancer Surgical History History of surgery History of removal of cyst H/O tooth extraction Social History Smoking Status: Never smoker alcohol intake: never what type of physical activity do you participate in: additional details: gym, sports seatbelt use: always Physical Exam Narrative Right upper Extremity Inspection: Area of induration on the right index fingertip but no fluid collections Palpation: Exquisite tenderness to palpation No tenderness over the A1 ella No pain with excursion of the index finger flexor tendon or with passive extension No pain along the flexor sheath Motor: Able to bend and extend all MP, PIP, and DIP joints. Sensory: Intact to light touch on the radial and ulnar borders. Vascular: Finger tips are warm and well perfused with <2 second capillary refill. Left upper Extremity Inspection: Bite wound over the left dorsal thumb without any fluid collections Palpation: Exquisite tenderness to palpation in this location Motor: Able to bend and extend all MP, PIP, and DIP joints. Sensory: Intact to light touch on the radial and ulnar borders. Vascular: Finger tips are warm and well perfused with <2 second capillary refill. Lab / Micro Data 12/08/24 06:27 12/08/24 06:27 Labs: Laboratory Results - last 24 hr 12/08/24 06:27: WBC 4.9, RBC 4.10 L, Hgb 12.2, Hct 34.7 L, MCV 84.6, MCH 29.8, MCHC 35.2, RDW Std Deviation 41.1, RDW Coeff of Kirsten 13.4, Plt Count 159, MPV 11.2, Immature Gran % (Auto) 0.200, Neut % (Auto) 49.2, Lymph % (Auto) 41.4 H, [place] % (Auto) 7.6, Eos % (Auto) 1.6, Baso % (Auto) 0.0, Absolute Neuts (auto) 2.4, Absolute Lymphs (auto) 2.03, Nucleated RBC % 0, ESR < 1 Imaging X-ray of the right hand did not demonstrate any fractures or malalignments I ordered an x-ray of the left hand Charges/Coding Visit Charges Office Visits / Consults: [id number] OV L3 New 30min
[2024-12-08 07:31] LABS: Anion Gap 12 (5-15); BUN 8 mg/dL (4-19); BUN/Creat Ratio 11.7 RATIO (10-20); Calcium,Total 9.1 mg/dL (7.6-11.0); Carbon Dioxide 23.9 mmol/L (21.0-32.0); Chloride 104 mmol/L (98-108); Estimated Creatinine Clearance 112.31 ml/min (50-250); Glucose 100 mg/dL (70-99); Potassium 3.3 mmol/L (3.3-5.1)
[2024-12-08 07:36] LABS: CRP < 3.00 mg/L (0.0-3.0)
[2024-12-08] MEDS: Vancomycin HCl 1,000 MG in 0.9% Normal Saline (250mL Bag) 250 ML 250 MG IV (07:45)
--- OUTSIDE RECORDS SUMMARY | 2024-12-08 07:58 | XMS RPT_ITS | CCD ---
Author Organization [facility] Care Team Providers Care Tape Transferrer Name Role Phone Javi Thapa Unavailable Ren Carlson MD Primary Care Provider Ren Carlson MD Primary Care Provider Unavailable Primary Care Provider Unavailabl e Unavailable Primary Care Provider Unavailabl e Care Physician, No Primary Primary Care Provider Unavailable Ronak WILKINSON, Dr. Hair Admit Provider Dr. Cherry Simons MD Attending Provid er Dr. Cherry Simons MD Referring Provid er Dr. Blane Alfred MD Emergency Provider [phone] JAQUELIN ANITRA Attending Unavailable CALDWELL, ANITRA Referring Unavailable CALDWELL, ANITRA Attending Unavailable CALDWELL, ANITRA Attending Unavailable CHERRY COLEMAN Attending Unavail able JAQUELIN ANITRA Referring Unavailable PLOTTS, TRAN Attending Unavailable PLOTTSTRAN Attending Unavailable PLOTTSTRAN Attending Unavailable HAURY, ROBSON Referring Unavailable HAURY, ROBSON Referring Unavailable PLOTTS, TRAN Attending Unavailable NATALIIA VAIL Attending Unavailable PLOTTS, TRAN Referring Unavailable PLOTTS, TRAN Referring Unavailable ILIR, ZHANNA Attending Unavailable ILIR, ZHANNA Referring Unavailable PLOTTS, TRAN Attending Unavailable PLOTTS, TRAN Referring Unavailable CALDWELL, ANITRA Referring Unavailable PLOTTS, TRAN Attending Unavailable YARED, NATALIIA Attending Unavailable YARED, NATALIIA Referring Unavailable CALDWELL, ANITRA Attending Unavailable PLOTTS, TRAN Attending Unavailable PLOTTS, TRAN Attending Unavailable Care Physician, No Primary Primary Care Provider Unavailable Tima WILKINSON, Dr. Arguelles Attending Provider Care Physician, No Primary Primary Care Unava ilable Vlad Jay Attending Unavailable Blane Alfred Attending Unavailable Care Physician, No Primary Primary Care Unava ilable Blane Alfred Attending Unavailable Care Physician, No Primary Primary Care Unava ilable Neyoraciot-Schuler, Cherry Admitting Unavail able Neyoraciot-Schuler, Cherry Attending Unavail able NeTao Cherry Referring Unavail able Care Physician, No Primary Primary Care Unava ilable Tran Gaytan Referring Unavailable Robyn Ren Alexa Primary Care Unavailable Tran Gaytan Attending Unavailable Dr. Vlad Jay DO Emergency Provider Pk WILKINSON, Dr. Gilbert Redman Admit Provider [phone] Pk WILKINSON, Dr. Gilbert Redman Attending Provider Allergies Allergy Classification Reported Allergen(s) Allergy Type Date of Onset Reaction(s) Facility Lactase (3 sources) Lactase Drug Allergy 1 Other: See Comments [facility] (20 sources) Lactase; Translations: [LACTASE] Drug Allergy 1 Other: See Comments [facility] (19 sources) Eucalyptus extract; Translations: [EUCALYPTUS] Drug Allergy 4 Rash [facility] (1 source) Lactase Drug Allergy 5 [facility] Repository Medications Current Medications Medication Drug Class(es) Dates Sig (Normalized) Sig (Original) acetaminophen 325 mg / HYDROcodone bitartrate 5 mg oral tablet (9 sources) Opioid Agonist Start: 08-17-2024 take 1 [...] / oxyCODONE hydrochloride 5 mg oral tablet (2 sources) Opioid Agonist Start: 12-07-2024 take 1 tablet by mouth every six hours as needed for pain Oxycodone-Acetaminophen (Percocet) 5-325 mg tablet Active 1 {tbl} PO EVERY 6 HOURS as needed for pain 12 3 0 December 07, 2024 Cat bite Bitten by cat, initial encounter amoxicillin 875 mg / clavulanate 125 mg oral tablet (2 sources) Penicillin-class Antibacterial Start: 12-07-2024 Amoxicillin-Pot Clavulanate 875-125 mg tablet Active 1 {tbl} PO TWICE A DAY 20 10 0 December 07, 2024 12:00am copper 313 mg drug implant (3 sources) Copper-containing Intrauterine Device Start: 11-15-2024 End: 11-13-2034 copper (PARAGARD) 380 square mm intrauterine device Indications: Encounter for IUD insertion 1 Intra Uterine Device by INTRAUTERINE route as directed. 1 each 11/15/2024 11/13/2034 Active docusate sodium 50 mg / sennosides, fci 8.6 mg oral tablet (4 sources) Start: 05-27-2024 Sennosides-Docusate Sodium (Stimulant Laxative [...] ea three times daily for 5 days. [place] (Nk) (1 source) Start: 06-03-2023 [place] (Nk) Active June 03, 2023 12:00am pantoprazole 40 mg oral granules (14 sources) Proton Pump Inhibitor Start: 05-25-2024 take [...] () 28 mg iron- 800 mcg tablet (4 sources) Start: 03-21-2024 Pnv Cmb#95-Ferrous Fumarate-Fa () [...] Sig (Original) amoxicillin 500 mg oral capsule (14 sources) Penicillin-class Antibacterial Start: 02-02-2019 End: 02-13-2019 take 1 capsule by mouth twice daily Amoxicillin 500 mg capsule Discontinued 500 mg PO TWICE A DAY 20 February 02, 2019 12:00am February 11, 2019 12:00am February 13, 2019 12:09am Acute pharyngitis, unspecified Start: 08-28-2018 End: 09-07-2018 take 1 capsule by mouth twice daily Amoxicillin 500 mg capsule Discontinued 500 mg PO TWICE A DAY 20 August 28, 2018 12:00am September 06, 2018 12:00am September 07, 2018 12:09am Start: 03-20-2017 AMOXICILLIN 50 0 MG CAPS 1 capsule 3 times a day AMOXICILLIN [id number] Javi WEAVER Start: 08-12-2016 End: 08-22-2016 AMOXICILLIN 500 MG TABS Take 1 tablet twice daily. AMOXICILLIN [id number] Luis WEAVER aspirin 81 mg oral tablet [...] hydrochloride 0.137 mg/actuat metered dose nasal spray (4 sources) Histamine-1 Receptor Antagonist Start: 03-21-2024 End: 05-25-2024 Azelastine 137 mcg (0.1 %) spray,non-aerosol Discontinued 2 NMA INTRANASAL TWICE A DAY March 21, 2024 12:00am May 25, 2024 11:59am administer into each nostril azithromycin 250 mg oral tablet (4 sources) Macrolide Antimicrobial Start: 03-21-2024 End: 05-25-2024 Azithromycin (Zithromax Z-Xu) 250 mg tablet Discontinued 0 PO .COMPLEX 6 0 March 21, 2024 12:00am May 25, 2024 11:59am For 250 mg dose pack: take 500 mg today (day 1), then 250 mg for 4 days (days 2-5) benzonatate 200 mg oral capsule (9 sources) Non-narcotic Antitussive Start: 03-21-2024 End: 05-25-2024 [...] 2019 6:15pm ibuprofen 600 mg oral tablet (5 sources) Nonsteroidal Anti-inflammatory Drug Start: 06-01-2020 End: [...] as needed. meloxicam 7.5 mg oral tablet (20 sources) Nonsteroidal Anti-inflammatory Drug Start: 07-31-2020 End: [...] (AK-DILATE, TYRELL-SYNEPHRINE) predniSONE 20 mg oral tablet (7 sources) Start: 03-21-2024 End: 05-25-2024 take 1 [...] tab daily for 3 days with food. Crsdqdsc-Xp-Lta-Fe- FA tab (20 sources) Start: 11-14-2023 End: 11-15-2024 take 1 tablet by mouth once daily Hjqatklt-Wz-Ztd-Fe-FA tab Take 1 tablet by mouth once daily. With folic acid and DHA as covered by insurance. 30 tablet 11 11/14/2023 11/15/2024 Discontinued (Discontinued by Patient) Start: 11-14-2023 take 1 tablet by james th once daily Iavbcwrj-Pg-Hrc-Fe-FA tab Take 1 tablet by mouth once [...] Problem Date Documented Date Episodic/Chronic Abdominal pain (5 sources) Abdominal pain; Translations: [Unspecified abdominal pain] Onset: 08-23-2024 08-17-2024 Episodic Anxiety disorders (20 sources) Generalized anxiety disorder; Translations: [Generalized anxiety disorder] Onset: 11-14-2023 11-14-2023 Chronic Blindness and vision defects (2 sources) Bilateral myopia of eyes; Translations: [Myopia, bilateral] Episodic Calculus of urinary tract (4 sources) Kidney stone; Translations: [Calculus of kidney] 08-17-2024 Episodic Chronic obstructive pulmonary disease and bronchiectasis (7 sources) Bronchitis; Translations: [Bronchitis, not specified as acute or chronic] Onset: 03-20-2017 03-20-2017 Episodic Conditions associated with dizziness or vertigo (1 source) Dizziness; Translations: [Dizziness and giddiness] 11-05-2023 Episodic Contraceptive and procreative management (1 source) Encounter for insertion of intrauterine contraceptive device; Translations: [Encounter for IUD insertion] Onset: 11-15-2024 Episodic E Codes: Natural/environment (4 sources) Cat bite - wound; Translations: [Bitten by cat, initial encounter] Episodic Immunizations and screening for infectious disease (14 sources) Patient encounter status; Translations: [Encounter for screening for COVID-19] Onset: 03-16-2024 06-07-2021 Episodic Inflammatory diseases of female pelvic organs (1 source) Acute vaginitis; Translations: [Acute vaginitis] 11-14-2023 Episodic Joint disorders and dislocations; trauma-related (8 sources) 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; Translations: [Loose body in knee, left knee] Chronic Joint disorders and dislocations; trauma-related (20 sources) Dislocation of patellofemoral joint; Translations: [Unspecified dislocation of left patella, subsequent encounter] Onset: 02-04-2022 Resolved: 12-02-2023 Episodic Mood disorders (5 sources) Depressive disorder; Translations: [Depression] 06-03-2023 Chronic Nausea and vomiting (8 sources) Nausea; Translations: [Nausea] 08-27-2023 Episodic OB-related [...] third trimester] 05-11-2024 Episodic Other complications of (4 sources) Reduced movement; Translations: [Decreased movements, unspecified trimester, not applicable or unspecified] 03-13-2024 Episodic Other female genital disorders (3 sources) Abnormal vaginal bleeding; Translations: [Abnormal uterine and vaginal bleeding, unspecified] 12-05-2024 Chronic Other lower respiratory disease (5 sources) Cough; Translations: [Cough] 06-07-2021 Episodic Other [...] 10-21-2024 10-21-2024 Chronic Other upper respiratory infections (20 sources) Pharyngitis; Translations: [Streptococcal sore throat] Onset: 08-12-2016 03-20-2017 Episodic Poisoning by other medications and drugs (5 sources) Accidental acetaminophen overdose; Translations: [Poisoning by [...] of ] 05-18-2024 Episodic Residual codes; unclassified (4 sources) Gestation period, 27 weeks; Translations: [27 weeks gestation of ] 03-13-2024 Episodic Residual codes; unclassified (5 sources) Gestation period, 37 weeks; Translations: [37 weeks gestation of ] 06-04-2024 Episodic Screening and history of mental health and substance abuse codes (20 sources) H/O: depression; Translations: [Personal history of other mental and behavioral disorders] Onset: 11-14-2023 11-14-2023 Episodic Sprains and strains (10 sources) Sprain of knee; Translations: [Sprain of [...] Test Name Value Interpretation Reference Range Facility Absolute lymphocyte countOrd ered By: Vlad Jay on 12-08-2024 Lymphocytes Auto (Unsp spec) [#/Vol] 2.03 10*3/uL 0.83-4.51 [facility] Absolute neutrophil countOrd ered By: Vlad Jay on 12-08-2024 Neutrophils (Bld) [#/Vol] 2.4 10*3/uL 2.0-7.7 [facility] Anion gap in Serum or Plasma Ordered By: Vlad Jay on 12-08-2024 Anion gap [Moles/Vol] 12 mmol/L 5-15 [facility] Automated lymphocyte count a s percentage of total leukocytesOrdered By: Vlad Jay on 12-08-2024 Lymphocytes/100 WBC Auto (Unsp spec) 41.4 % High 19-41 [facility] BUN/creatinine ratioOrdered By: Vlad Jay on 12-08-2024 Urea nitrogen/Creatinine [Mass ratio] 11.7 mg/mg 10-20 [facility] Basophil percentageOrdered B y: Vlad Jay on 12-08-2024 Basophils/100 WBC (Bld) 0.0 % 0-1 [facility] Carbon dioxide, total [Moles /volume] in Central venous bloodOrdered By: Vlad Jay on 12-08-2024 CO2 [Moles/Vol] 23.9 mmol/L 21.0-32.0 [facility] Chloride assayOrdered By: Heaven Jay on 12-08-2024 Chloride [Moles/Vol] 104 mmol/L 98-108 [facility] Eosinophil percentageOrdered By: Vlad Jay on 12-08-2024 Eosinophils/100 WBC (Bld) 1.6 % 0-5 [facility] Erythrocyte distribution wid th ratioOrdered By: Vlad Jay on 12-08-2024 Erythrocyte distribution width (RBC) [Ratio] 13.4 % 11.6-14.6 [facility] Erythrocyte distribution wid th standard deviationOrdered By: Vlad Jay on 12-08-2024 Erythrocyte distribution width (RBC) [Ratio] 41.1 fl 35.1-43.9 [facility] Erythrocyte sedimentation ra teOrdered By: Vlad Jay on 12-08-2024 ESR (Bld) [Velocity] mm/h 0-30 [facility] Glomerular filtration rate ( GFR) estimation/1.73 sq m using serum, plasma, or whole bOrdered By: Vlad Jay on 12-08-2024 GFR/1.73 sq M.predicted among non-blacks MDRD (S/P/Bld) [Vol rate/Area] 127 mL/min/{1.73_m2} >60 [facility] Comment on above: mL/min/1.73m2 CKD-EP I Creatinine Equation (2020) Hematocrit Auto (Bld) [Volum e fraction]Ordered By: Vlad Jay on 12-08-2024 Hematocrit (Bld) [Volume fraction] 34.7 % Low 37-47 [facility] Hemoglobin measurementOrdere d By: Vlad Jay on 12-08-2024 Hemoglobin (Bld) [Mass/Vol] 12.2 g/dL 12.0-15.0 [facility] Immature granulocytes/100 WB C Auto (Bld)Ordered By: Vlad Jay on 12-08-2024 Immature granulocytes/100 WBC (Bld) 0.200 % 0.0-0.9 [facility] Comment on above: IG% - Immature Granu locytes (promyelocytes, myelocytes and metamyelocytes) > 1% indicates that a LEFT SHIFT is Present. Lactic acid measurementOrder ed By: Vlad Jay on 12-08-2024 Lactate [Moles/Vol] mmol/L 0.0-2.0 [facility] MCV (mean corpuscular volume ) determinationOrdered By: Vlad Jay on 12-08-2024 MCV (RBC) [Entitic vol] 84.6 fL 81-99 [facility] Mean corpuscular hemoglobin (MCH) determinationOrdered By: Vlad Jay on 12-08-2024 MCH (RBC) [Entitic mass] 29.8 pg 27.0-32.0 [facility] Mean corpuscular hemoglobin concentration (MCHC) determinationOrdered By: Vlad Jay on 12-08-2024 MCHC (RBC) [Mass/Vol] 35.2 g/dL 32-36 [facility] Mean platelet volume determi nationOrdered By: Vlad Jay on 12-08-2024 Platelet mean volume (Bld) [Entitic vol] 11.2 fL 6.2-12.0 [facility] Monocyte percentageOrdered B y: Vlad Jay on 12-08-2024 Monocytes/100 WBC (Bld) 7.6 % 0-10 [facility] Neutrophil percentageOrdered By: Vlad Jay on 12-08-2024 Neutrophils/100 WBC (Bld) 49.2 % 47-70 [facility] Nucleated red blood cell per centageOrdered By: Vlad Jay on 12-08-2024 Nucleated RBC/100 WBC (Bld) [Ratio] 0 % 0-5 [facility] Platelet countOrdered By: Heaven Jay on 12-08-2024 Platelets (Bld) [#/Vol] 159 10*3/uL 150-450 [facility] Potassium measurement (mass/ volume)Ordered By: Vlad Jay on 12-08-2024 Potassium (Unsp spec) [Mass/Vol] 3.3 mmol/L 3.3-5.1 [facility] RBC Auto (Bld) [#/Vol]Ordere d By: Vlad Jay on 12-08-2024 RBC (Bld) [#/Vol] 4.10 10*6/uL Low 4.2-5.4 [facility] Serum creatinine measurement (mass/volume)Ordered By: Vlad Jay on 12-08-2024 Creatinine [Mass/Vol] 0.69 mg/dL Low 0.70-1.20 [facility] Serum glucose measurement (m ass/volume)Ordered By: Vlad Jay on 12-08-2024 Glucose [Mass/Vol] 100 mg/dL High 70-99 [facility] Serum or plasma C reactive p rotein measurement (mass/volume)Ordered By: Vlad Jay on 12-08-2024 CRP [Mass/Vol] mg/L 0.0-3.0 [facility] Serum or plasma calcium harriet urement (mass/volume)Ordered By: Vlad Jay on 12-08-2024 Calcium [Mass/Vol] 9.1 mg/dL 7.6-11.0 [facility] Serum or plasma urea nitroge n measurement (mass/volume)Ordered By: Vlad Jay on 12-08-2024 Urea nitrogen [Mass/Vol] 8 mg/dL 4-19 [facility] Sodium levelOrdered By: Ricci Jay on 12-08-2024 Sodium [Moles/Vol] 139 mmol/L 133-145 [facility] White blood cell (WBC) count Ordered By: Vlad Jay on 12-08-2024 WBC (Bld) [#/Vol] 4.9 10*3/uL 4.4-11.0 [facility] CBC-Complete Blood Cnt No Di ffon 12-05-2024 Erythrocyte distribution width (RBC) [Ratio] 13.4 % Normal 11.6-14.6 [facility] Comment on above: Performed By: #### L 700.6800, L100.0500 #### [facility] [address] [place], [address] Hematocrit (Bld) [Volume fraction] 33.9 % Low 37-47 [facility] Comment on above: Performed By: #### L 700.6800, L100.0500 #### [facility] [address] [place], [address] Hemoglobin (Bld) [Mass/Vol] 12.0 g/dL Normal 12.0-15.0 [facility] Comment on above: Performed By: #### L 700.6800, L100.0500 #### [facility] [address] [place], [address] MCH (RBC) [Entitic mass] 29.4 pg Normal 27.0-32.0 [facility] Comment on above: Performed By: #### L 700.6800, L100.0500 #### [facility] [address] [place], [address] MCHC (RBC) [Mass/Vol] 35.4 g/dL Normal 32-36 [facility] Comment on above: Performed By: #### L 700.6800, L100.0500 #### [facility] [address] [place], [address] MCV (RBC) [Entitic vol] 83.1 fL Normal 81-99 [facility] Comment on above: Performed By: #### L 700.6800, L100.0500 #### [facility] [address] [place], [address] Platelet mean volume (Bld) [Entitic vol] 11.1 fL Normal 6.2-12.0 [facility] Comment on above: Performed By: #### L 700.6800, L100.0500 #### [facility] [address] [place], [address] Platelets (Bld) [#/Vol] 148 10*3/uL Low 150-450 [facility] Comment on above: Performed By: #### L 700.6800, L100.0500 #### [facility] [address] [place], [address] RBC (Bld) [#/Vol] 4.08 10*6/uL Low 4.2-5.4 [facility] Comment on above: Performed By: #### L 700.6800, L100.0500 #### [facility] [address] [place], [address] RDW SD 40.3 fl Normal 35.1-43.9 [facility] Comment on above: Performed By: #### L 700.6800, L100.0500 #### [facility] [address] [place], [address] WBC (Bld) [#/Vol] 3.3 10*3/uL Low 4.4-11.0 [facility] Comment on above: Performed By: #### L 700.6800, L100.0500 #### [facility] [address] [place], [address] Emergency Department Summary on 12-05-2024 Emergency Department Summary [facility] Medical Records Department [address] [place] [address] Emergency Department Summary 12/05/24 MR#: [id number] Acct: [id number] Name: ORAL FLETCHER Rep #: [id number] : 2005 19 From: Blane Alfred MD [...] Denies any dysuria. No discharge. No prior CONTROL AND RECOVERY COMBAT RESCUE surgery. No prior IUD history. Prior similar symptoms: No Recent Illness/Hospitalization : No PFSH PFS Medical History Anxiety Encounter for screening for [...] respiratory effort (more content not included)... Normal [facility] Erythrocyte distribution wid th ratioOrdered By: Blane Alfred on 12-05-2024 Erythrocyte distribution width (RBC) [Ratio] 13.4 % 11.6-14.6 [facility] Erythrocyte distribution wid th standard deviationOrdered By: Blane Alfred on 12-05-2024 Erythrocyte distribution width (RBC) [Ratio] 40.3 fl 35.1-43.9 [facility] Hematocrit Auto (Bld) [Volum e fraction]Ordered By: Blane Alfred on 12-05-2024 Hematocrit (Bld) [Volume fraction] 33.9 % Low 37-47 [facility] Hemoglobin measurementOrdere d By: Blane Alfred on 12-05-2024 Hemoglobin (Bld) [Mass/Vol] 12.0 g/dL 12.0-15.0 [facility] MCV (mean corpuscular volume ) determinationOrdered By: Blane Alfred on 12-05-2024 MCV (RBC) [Entitic vol] 83.1 fL 81-99 [facility] Mean corpuscular hemoglobin (MCH) determinationOrdered By: Blane Alfred on 12-05-2024 MCH (RBC) [Entitic mass] 29.4 pg 27.0-32.0 [facility] Mean corpuscular hemoglobin concentration (MCHC) determinationOrdered By: Blane Alfred on 12-05-2024 MCHC (RBC) [Mass/Vol] 35.4 g/dL 32-36 [facility] Mean platelet volume determi nationOrdered By: Blane Alfred on 12-05-2024 Platelet mean volume (Bld) [Entitic vol] 11.1 fL 6.2-12.0 [facility] Platelet countOrdered By: Román Alfred on 12-05-2024 Platelets (Bld) [#/Vol] 148 10*3/uL Low 150-450 [facility] ,Serum,hCG Quali.on 12-05-2024 HCG, SERUM QUAL Negative Normal [facility] Comment on above: Performed By: #### L 700.6800, L100.0500 #### [facility] [place], [address] RBC Auto (Bld) [#/Vol]Ordere d By: Blane Tima on 12-05-2024 RBC (Bld) [#/Vol] 4.08 10*6/uL Low 4.2-5.4 [facility] Serum beta-hCG test, qualita tiveOrdered By: Blane Alfred on 12-05-2024 Beta HCG ( test) Ql Negative [facility] White blood cell (WBC) count Ordered By: Blane Alfred on 12-05-2024 WBC (Bld) [#/Vol] 3.3 10*3/uL Low 4.4-11.0 [facility] CNOVon 11-15-2024 CNOV Office Visit (OBGYWM ) ORAL FLETCHER ([id number]) 3 F Date Time Provider Department 11/15/24 4:00 PM TRAN GAYTAN OBGYWM During your visit today, we recorded the following information about you: Blood pressure Weight Last Period 108/76 59.4 kg 10/25/24 Tran Gaytan APRN.CNM 11/15/2024 5:11 PM Signed Oral presents today for IUD insertion for contraception. Patient's last menstrual period was 10/10/2024 (exact date). GC/chlamydia: Not done: no risk factors and/or patient declines screening test: negative Side effects including irregular bleeding were discussed with the patient. The patient understands that it should be removed in 7 years or sooner if the patient desires a . IUD source: office provided IUD lot #: [id number] Exp date: 12/15/2026 UNIVERSAL PROTOCOL / SAFETY [...] up after next menses for string check. Tran Gaytan APRN.Roro Ybarra MA 11/15/2024 3:59 PM [...] questions, please contact the office. Referring Provider: TRAN GAYTAN [[id number]] Allergies As of Date: 11/15/2024 Noted Allergy Reaction EUCALYPTUS 05/05/2024 2 - Rash Comments: Chemical burn LACTASE 06/26/2020 14 - Other: See Comments Date Reviewed: 11/15/2024 Reviewed by: Roro Sanz MA - Fully Assessed Reason for Visit: Insertion Of IUD [291] Primary Visit Diagnosis:Encounter for IUD insertion [Z30.430] Order(s):UA DIP,URINE HCG (POC) [3367055] Order #: [id number] [] copper intrauterine device 380 square mm [...] of depression [Z86.59] 11/14/2023 Supervision of normal [facility] (more content not included)... Normal [facility] CNOVon 10-21-2024 CNOV Office Visit (UCWSTR ) ORAL FLETCHER ([id number]) 3 F Date Time Provider Department 10/21/24 5:15 PM [facility] During your visit today, we recorded the following information about you: Temperature Pulse Respiration Blood pressure 97 degrees 78/minute 18/minute 101/68 Weight Last Period 63 kg 10/10/24 Zhanna Hazel APRN.RADIOLOGIST CHIEF OF BREAST IMAGING 10/21/2024 5:54 PM Signed [facility] Subjective Oral Fletcher is a 19 year old female. [...] history is provided by the patient. No corporate attorney was used. Cough Review of Systems Constitutional: [...] menses Low-lying placenta (HCC) 01/26/2024 04/21/24- Resolved. Tran Plotts, SHOP LABORER.CNM Repeat growth US at 32 weeks. Anitra ESAU Caldwell.KMM Post depression 06/24/2024 PAST SURGICAL HISTORY Procedure Laterality Date DENTAL SURGERY HX 2015 ORTHOPEDICS SURGERY HX knee torn meniscus WRIST Left cyst on left wrist ALLERGIES Eucalyptus and Lactase MEDICATIONS sertraline (ZOLOFT) 25 mg tablet Take 1 tablet by mouth once daily. Ygwafiqs-Gj-Btq-Fe-FA tab Take 1 tablet by mouth once [...] Unremarkable. IMPRESSION IMPRESSION: No acute radiographic abnormality. Recording Artist: CHAPARRITA Transcribe Date/Time: Oct 21 2024 5:46P [...] Patient agreeable to care plan. Zhanna Hazel APRN.RADIOLOGIST CHIEF OF BREAST IMAGING [facility] Procedures Allergies As of Date: 10/21/2024 Noted Allergy Reaction EUCALYPTUS 05/05/2024 2 - Rash Comments: Chemical burn LACTASE 06/26/2020 14 - Other: See Comments Date Reviewed: 10/21/2024 Reviewed by: Jessy Alicea LPN - Fully Assessed Reason for Visit: Cough [28] Cmt: Chest congestion, nasal congestion, SOB, increased mucous, runny (more content not included)... Normal [facility] XR CHEST 2V FRONTAL/LATon XR CHEST 2V [...] tissues: Unremarkable. IMPRESSION: No acute radiographic abnormality. Recording Artist: CHAPARRITA Transcribe Date/Time: Oct 21 2024 5:46P Dictated by : DANAE BAR MD This examination was interpreted and the report reviewed and electronically signed by: DANAE BAR MD on Oct 21 2024 5:46PM EST [id number] Normal [facility] XR Chest PA and Lateralon IMPRESSION: No acute radiographic abnormality. Recording Artist: CHAPARRITA Transcribe Date/Time: Oct 21 2024 5:46P [...] soft tissues: Unremarkable. DIVISION OF RADIOLOGY Provider, [facility] - 10/21/2024 * * *Final Report* * [...] Unremarkable. IMPRESSION IMPRESSION: No acute radiographic abnormality. Recording Artist: PSCB Transcribe Date/Time: Oct 21 2024 5:46P Dictated by : DANAE BAR MD This examination was interpreted and the report reviewed and electronically signed by: DANAE BAR MD on Oct 21 2024 5:46PM EST [facility] Radiology Study observation (narrative) [facility] XR Chest PA and LateralOrder ed By: Cc Provider on 10-21-2024 [facility] CNOVon 09-17-2024 CNOV Office Visit (PSYLST ) JESORAL ([id number]) 3 F Date Time Provider Department 09/17/24 10:00 AM YAREDNATALIIA ROSI During your visit today, we recorded the following information about you: Nataliia Vail LISW 09/17/2024 11:06 AM Signed GENERAL PSYCHOLOGY Session #: 1 (session count starts after PSYL NEW EVAL visit) Session conducted by phone due to poor Zoom screen tender helper. 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 Suicide protocol sent via [facility] Approximately 45 minutes were spent with the patient doing therapy. 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 - Mqaytzof-Jt-Flk-Fe-FA tab Take 1 tablet by mouth once [...] Status:Closed by NATALIIA VAIL on 09/17/24 Normal [facility] Abdomen/Pelvis W IV Cont ONL Yon 08-17-2024 Abdomen/Pelvis W IV Cont ONLY [facility] Imaging Services [address], [place] [id number] Abdomen/Pelvis W IV Cont ONLY MR#: [id number] Acct: [id number] Name: ORAL FLETCHER Rep #: [id number] : 2005 F 19 From: Basilio Jasso MD PCP: Care Physician,No Primary Status: REG ER Study: Abdomen/Pelvis W IV Cont ONLY Date of Exam: Exam# [id number] Ordering Dr: Blane Alfred MD PROCEDURE: ABDOMEN/PELVIS [...] stranding or urothelial thickening seen. Reading Location: [facility] CC: Dr. Blane Alfred MD; No Primary Care Physician Recording Artist: Signed Normal [facility] Absolute lymphocyte countOrd ered By: Blane Alfred on 08-17-2024 Lymphocytes Auto (Unsp spec) [#/Vol] 2.97 10*3/uL 0.83-4.51 [facility] Absolute neutrophil countOrd ered By: Blane Alfred on 08-17-2024 Neutrophils (Bld) [#/Vol] 2.9 10*3/uL 2.0-7.7 [facility] Anion gap in Serum or Plasma Ordered By: Blane Alfred on 08-17-2024 Anion gap [Moles/Vol] 14 mmol/L 5-15 [facility] Automated lymphocyte count a s percentage of total leukocytesOrdered By: Blane Alfred on 08-17-2024 Lymphocytes/100 WBC Auto (Unsp spec) 45.9 % High 19-41 [facility] BUN/creatinine ratioOrdered By: lBane Alfred on 08-17-2024 Urea nitrogen/Creatinine [Mass ratio] 16.6 mg/mg 10-20 [facility] Basophil percentageOrdered B y: Blane Alfred on 08-17-2024 Basophils/100 WBC (Bld) 0.3 % 0-1 [facility] Beta HCG ( test) Ql Ordered By: Blane Alfred on 08-17-2024 Serum Test, Qualitative Negative [facility] Bilirubin Test strip Ql (U)O rdered By: Blane Alfred on 08-17-2024 Bilirubin Ql (U) Negative Negative [facility] Bilirubin, totalOrdered By: Blane Alfred on 08-17-2024 Bilirubin [Mass/Vol] 0.72 mg/dL 0.00-1.30 [facility] CBC W/Diff, Automatedon 04-0 Absolute Lymph 2.97 X10 3/uL Normal 0.83-4.51 [facility] Comment on above: Performed By: #### L 400.0001 #### [facility] [address] [place], [address] Absolute Neut 2.9 X10 3/uL Normal 2.0-7.7 [facility] Comment on above: Performed By: #### L 400.0001 #### [facility] [address] [place], [address] Basophils/100 WBC (Bld) 0.3 % Normal 0-1 [facility] Comment on above: Performed By: #### L 400.0001 #### [facility] [address] [place], [address] Eosinophils/100 WBC (Bld) 1.7 % Normal 0-5 [facility] Comment on above: Performed By: #### L 400.0001 #### [facility] [address] [place], [address] Erythrocyte distribution width (RBC) [Ratio] 12.5 % Normal 11.6-14.6 [facility] Comment on above: Performed By: #### L 400.0001 #### [facility] [address] [place], [address] Hematocrit (Bld) [Volume fraction] 36.6 % Low 37-47 [facility] Comment on above: Performed By: #### L 400.0001 #### [facility] [address] [place], [address] Hemoglobin (Bld) [Mass/Vol] 12.9 g/dL Normal 12.0-15.0 [facility] Comment on above: Performed By: #### L 400.0001 #### [facility] [address] [place], [address] IG% 0.300 Normal 0.0-0.9 [facility] Comment on above: Result Comment: IG% - Immature Granulocytes (promyelocytes, myelocytes and metamyelocytes) > 1% indicates that a LEFT SHIFT is Present. Performed By: #### L 400.0001 #### [facility] [address] [facility] [place], [address] Lymphocytes/100 WBC (Bld) 45.9 % High 19-41 [facility] Comment on above: Performed By: #### L 400.0001 #### [facility] [address] [place], [address] MCH (RBC) [Entitic mass] 28.5 pg Normal 27.0-32.0 [facility] Comment on above: Performed By: #### L 400.0001 #### [facility] [address] [place], [address] MCHC (RBC) [Mass/Vol] 35.2 g/dL Normal 32-36 [facility] Comment on above: Performed By: #### L 400.0001 #### [facility] [address] [place], [address] MCV (RBC) [Entitic vol] 81.0 fL Normal 81-99 [facility] Comment on above: Performed By: #### L 400.0001 #### [facility] [address] [place], [address] Monocytes/100 WBC (Bld) 6.6 % Normal 0-10 [facility] Comment on above: Performed By: #### L 400.0001 #### [facility] [address] [place], [address] Neutrophils/100 WBC (Bld) 45.2 % Low 47-70 [facility] Comment on above: Performed By: #### L 400.0001 #### [facility] [address] [place], [address] Nucleated RBC (Bld) [#/Vol] 0 10*3/uL Normal 0-5 [facility] Comment on above: Performed By: #### L 400.0001 #### [facility] [address] [place], [address] Platelet mean volume (Bld) [Entitic vol] 11.4 fL Normal 6.2-12.0 [facility] Comment on above: Performed By: #### L 400.0001 #### [facility] [address] [place], [address] Platelets (Bld) [#/Vol] 186 10*3/uL Normal 150-450 [facility] Comment on above: Performed By: #### L 400.0001 #### [facility] [address] [place], [address] RBC (Bld) [#/Vol] 4.52 10*6/uL Normal 4.2-5.4 [facility] Comment on above: Performed By: #### L 400.0001 #### [facility] [address] [place], [address] RDW SD 36.1 fl Normal 35.1-43.9 [facility] Comment on above: Performed By: #### L 400.0001 #### [facility] [address] [place], [address] WBC (Bld) [#/Vol] 6.5 10*3/uL Normal 4.4-11.0 [facility] Comment on above: Performed By: #### L 400.0001 #### [facility] [address] [place], [address] Carbon dioxide, total [Moles /volume] in Central venous bloodOrdered By: Blane Alfred on 08-17-2024 CO2 [Moles/Vol] 22.0 mmol/L 21.0-32.0 [facility] Chloride assayOrdered By: Román Alfred on 08-17-2024 Chloride [Moles/Vol] 104 mmol/L 98-108 [facility] Comprehensive Metabolic Prof ilon 08-17-2024 Albumin [Mass/Vol] 4.6 g/dL Normal 3.5-5.0 [facility] Comment on above: Performed By: #### L 400.0001 #### [facility] [address] [place], [address] Albumin/Globulin [Mass ratio] 1.7 {ratio} Normal 0.9-2.4 [facility] Comment on above: Performed By: #### L 400.0001 #### [facility] [address] [place], [address] ALK PHOS 57 U/L Normal 35-104 [facility] Comment on above: Performed By: #### L 400.0001 #### [facility] [address] [place], [address] ALT [Catalytic activity/Vol] 39 U/L High <=34 [facility] Comment on above: Performed By: #### L 400.0001 #### [facility] [address] [place], [address] AST [Catalytic activity/Vol] 29 U/L Normal <=31 [facility] Comment on above: Performed By: #### L 400.0001 #### [facility] [address] [place], [address] Bilirubin [Mass/Vol] 0.72 mg/dL Normal 0.00-1.30 [facility] Comment on above: Performed By: #### L 400.0001 #### [facility] [address] [place], [address] BUN/CRE 16.6 RATIO Normal 10-20 [facility] Comment on above: Performed By: #### L 400.0001 #### [facility] [address] [place], [address] Calcium [Mass/Vol] 9.2 mg/dL Normal 7.6-11.0 [facility] Comment on above: Performed By: #### L 400.0001 #### [facility] [address] [place], [address] Chloride [Moles/Vol] 104 mmol/L Normal 98-108 [facility] Comment on above: Performed By: #### L 400.0001 #### [facility] [address] [place], [address] CO2 [Moles/Vol] 22.0 mmol/L Normal 21.0-32.0 [facility] Comment on above: Performed By: #### L 400.0001 #### [facility] [address] [place], [address] Creatinine [Mass/Vol] 0.99 mg/dL Normal 0.70-1.20 [facility] Comment on above: Performed By: #### L 400.0001 #### [facility] [address] [place], [address] ECRCL 88.92 ml/min Normal 50-250 [facility] Comment on above: Performed By: #### L 400.0001 #### [facility] [address] [place], [address] GAP 14 Normal 5-15 [facility] Comment on above: Performed By: #### L 400.0001 #### [facility] [address] [place], [address] GFR/1.73 sq M.predicted among non-blacks MDRD (S/P/Bld) [Vol rate/Area] 84 mL/min/{1.73_m2} Normal >60 [facility] Comment on above: Result Comment: mL/m in/1.73m2 CKD-EPI Creatinine Equation (2020) Performed By: #### L 400.0001 #### [facility] [address] [place], [address] Globulin (S) [Mass/Vol] 2.8 g/dL Normal 2.2-4.2 [facility] Comment on above: Performed By: #### L 400.0001 #### [facility] [address] [place], [address] Glucose [Mass/Vol] 122 mg/dL High 70-99 [facility] Comment on above: Performed By: #### L 400.0001 #### [facility] [address] [place], [address] Potassium [Moles/Vol] 3.4 mmol/L Normal 3.3-5.1 [facility] Comment on above: Performed By: #### L 400.0001 #### [facility] [address] [place], [address] Sodium [Moles/Vol] 140 mmol/L Normal 133-145 [facility] Comment on above: Performed By: #### L 400.0001 #### [facility] [address] [place], [address] T PROT 7.3 g/dL Normal 5.9-8.4 [facility] Comment on above: Performed By: #### L 400.0001 #### [facility] [address] [place], [address] Urea nitrogen [Mass/Vol] 16 mg/dL Normal 4-19 [facility] Comment on above: Performed By: #### L 400.0001 #### [facility] [address] [place], [address] Emergency Department Summary on 08-17-2024 Emergency Department Summary [facility] Medical Records Department [address] [place] [address] Emergency Department Summary 08/17/24 MR#: [id number] Acct: [id number] Name: ORAL FLETCHER Rep #: [id number] : 2005 19 From: Blane Alfred MD [...] (more content not included)... Normal [facility] Eosinophil percentageOrdered By: Blane Alfred on 08-17-2024 Eosinophils/100 WBC (Bld) 1.7 % 0-5 [facility] Epithelial cells.squamous LM Ql (Urine sed)Ordered By: Blane Alfred on 08-17-2024 Epithelial cells.squamous LM.HPF (Urine sed) [#/Area] 0 /[HPF] 5-10 [facility] Erythrocyte distribution wid th ratioOrdered By: Blane Alfred on 08-17-2024 Erythrocyte distribution width (RBC) [Ratio] 12.5 % 11.6-14.6 [facility] Erythrocyte distribution wid th standard deviationOrdered By: Blane Alfred on 08-17-2024 Erythrocyte distribution width (RBC) [Entitic vol] 36.1 fL 35.1-43.9 [facility] Erythrocyte distribution width (RBC) [Ratio] 36.1 fl 35.1-43.9 [facility] Estimation of creatinine rey aranceOrdered By: Blane Alfred on 08-17-2024 Estimated Creatinine Clearance Calc 88.92 ml/min 50-250 [facility] GFR/1.73 sq M.predicted kris g non-blacks MDRD (S/P/Bld) [Vol rate/Area]Ordered By: Blane Alfred on 08-17-2024 Estimated GFR (MDRD) Non-Af Amer 84 >60 [facility] Comment on above: mL/min/1.73m2 CKD-EP I Creatinine Equation (2020) Glomerular filtration rate ( GFR) estimation/1.73 sq m using serum, plasma, or whole bOrdered By: Blane Alfred on 08-17-2024 GFR/1.73 sq M.predicted among non-blacks MDRD (S/P/Bld) [Vol rate/Area] 84 mL/min/{1.73_m2} >60 [facility] Comment on above: mL/min/1.73m2 CKD-EP I Creatinine Equation (2020) Glucose Ql (U)Ordered By: Román Alfred on 08-17-2024 Urine Glucose (UA) Normal mg/dl Normal [facility] Hematocrit Auto (Bld) [Volum e fraction]Ordered By: Blane Alfred on 08-17-2024 Hematocrit (Bld) [Volume fraction] 36.6 % Low 37-47 [facility] Hemoglobin measurementOrdere d By: Blane Alfred on 08-17-2024 Hemoglobin (Bld) [Mass/Vol] 12.9 g/dL 12.0-15.0 [facility] Immature granulocytes/100 WB C Auto (Bld)Ordered By: Blane Alfred on 08-17-2024 Immature granulocytes/100 WBC (Bld) 0.300 % 0.0-0.9 [facility] Comment on above: IG% - Immature Granu locytes (promyelocytes, myelocytes and metamyelocytes) > 1% indicates that a LEFT SHIFT is Present. Ketones Test strip Ql (U)Ord ered By: Blane Alfred on 08-17-2024 Ketones Ql (U) 15 mg/dl High Negative [facility] - Chemistry and C hemistry - challengeOrdered By: Blane Alfred on 08-17-2024 AST [Catalytic activity/Vol] 29 U/L <32 [facility] Lipaseon 08-17-2024 Lipase [Catalytic activity/Vol] 22 U/L Normal 13-75 [facility] Comment on above: Result Comment: Riccardo martin note: LIPASE revised reference range effective 22. New Lipase methodology. Expected to produce lower values than the previous assay method. NEW Reference Range: 13 - 75 U/L Performed By: #### L 400.0001 #### [facility] [place] [address] [place], [address] Lipase measurementOrdered By : Blane Alfred on 08-17-2024 Lipase [Catalytic activity/Vol] 22 U/L 13-75 [facility] Comment on above: Please note:LIPASE r evised reference range effective 22. New Lipase methodology. Expected to produce lower values than the previous assay method. NEW Reference Range: 13 - 75 U/L Lymphocytes Auto (Unsp spec) [#/Vol]Ordered By: Blane Alfred on 08-17-2024 Lymphocytes (Bld) [#/Vol] 2.97 10*3/uL 0.83-4.51 [facility] Lymphocytes/100 WBC Auto (Un sp spec)Ordered By: Blane Alfred on 08-17-2024 Lymphocytes/100 WBC (Bld) 45.9 % High 19-41 [facility] MCV (mean corpuscular volume ) determinationOrdered By: Blane Alfred on 08-17-2024 MCV (RBC) [Entitic vol] 81.0 fL 81-99 [facility] Mean corpuscular hemoglobin (MCH) determinationOrdered By: Blane Alfred on 08-17-2024 MCH (RBC) [Entitic mass] 28.5 pg 27.0-32.0 [facility] Mean corpuscular hemoglobin concentration (MCHC) determinationOrdered By: Blane Alfred on 08-17-2024 MCHC (RBC) [Mass/Vol] 35.2 g/dL 32-36 [facility] Mean platelet volume determi nationOrdered By: Blane Alfred on 08-17-2024 Platelet mean volume (Bld) [Entitic vol] 11.4 fL 6.2-12.0 [facility] Microscopic analysis of urin e for red blood cells (RBC)Ordered By: Blane Alfred on 08-17-2024 Microscopic analysis of urine for red blood cells (RBC) > 100 SEEN /hpf 0-5 [facility] Urine RBC > 100 SEEN /hpf 0-5 [facility] Monocyte percentageOrdered B y: Blane Alfred on 08-17-2024 Monocytes/100 WBC (Bld) 6.6 % 0-10 [facility] Mucus LM Ql (Urine sed)Order ed By: Blane Alfred on 08-17-2024 Mucus Ql (Urine sed) RARE /hpf [facility] Neutrophil percentageOrdered By: Blane Alfred on 08-17-2024 Neutrophils/100 WBC (Bld) 45.2 % Low 47-70 [facility] Nitrite Test strip Ql (U)Ord ered By: Blane Alfred on 08-17-2024 Nitrite Ql (U) Negative Negative [facility] Nucleated red blood cell per centageOrdered By: Blane Alfred on 08-17-2024 Nucleated RBC/100 WBC (Bld) [Ratio] 0 % 0-5 [facility] Platelet countOrdered By: Román Alfred on 08-17-2024 Platelets (Bld) [#/Vol] 186 10*3/uL 150-450 [facility] Potassium (Unsp spec) [Mass/ Vol]Ordered By: Blane Alfred on 08-17-2024 Potassium [Moles/Vol] 3.4 mmol/L 3.3-5.1 [facility] Potassium measurement (mass/ volume)Ordered By: Blane Alfred on 08-17-2024 Potassium (Unsp spec) [Mass/Vol] 3.4 mmol/L 3.3-5.1 [facility] ,Serum,hCG Quali.on 08-17-2024 HCG, SERUM QUAL Negative Normal [facility] Comment on above: Performed By: #### L 400.0001 #### [facility] [address] [place] [address], [address] Protein Test strip Ql (U)Ord ered By: Blane Alfred on 08-17-2024 Protein Ql (U) 30 mg/dl High Negative [facility] RBC Auto (Bld) [#/Vol]Ordere d By: Blane Alfred on 08-17-2024 RBC (Bld) [#/Vol] 4.52 10*6/uL 4.2-5.4 [facility] Serum beta-hCG test, qualita tiveOrdered By: Blane Alfred on 08-17-2024 Beta HCG ( test) Ql Negative [facility] Serum creatinine measurement (mass/volume)Ordered By: Blane Alfred on 08-17-2024 Creatinine [Mass/Vol] 0.99 mg/dL 0.70-1.20 [facility] Serum globulin measurementOr dered By: Blane Alfred on 08-17-2024 Globulin (S) [Mass/Vol] 2.8 g/dL 2.2-4.2 [facility] Serum glucose measurement (m ass/volume)Ordered By: Blane Alfred on 08-17-2024 Glucose [Mass/Vol] 122 mg/dL High 70-99 [facility] Serum or plasma alanine milton otransferase (ALT) measurementOrdered By: Blane Alfred on 08-17-2024 ALT [Catalytic activity/Vol] 39 U/L High <35 [facility] Serum or plasma albumin harriet urement (mass/volume)Ordered By: Blane Alfred on 08-17-2024 Albumin [Mass/Vol] 4.6 g/dL 3.5-5.0 [facility] Serum or plasma albumin/glob ulin mass ratioOrdered By: Blane Alfred on 08-17-2024 Albumin/Globulin [Mass ratio] 1.7 {ratio} 0.9-2.4 [facility] Serum or plasma alkaline errol sphatase measurementOrdered By: Blane Alfred on 08-17-2024 ALP [Catalytic activity/Vol] 57 U/L 35-104 [facility] Serum or plasma calcium harriet urement (mass/volume)Ordered By: Blane Alfred on 08-17-2024 Calcium [Mass/Vol] 9.2 mg/dL 7.6-11.0 [facility] Serum or plasma urea nitroge n measurement (mass/volume)Ordered By: Blane Alfrde on 08-17-2024 Urea nitrogen [Mass/Vol] 16 mg/dL 4-19 [facility] Sodium levelOrdered By: Blane Alfred on 08-17-2024 Sodium [Moles/Vol] 140 mmol/L 133-145 [facility] Squamous epithelial cells de tection in urine sediment by light microscopyOrdered By: Blane Alfred on 08-17-2024 Epithelial cells.squamous LM Ql (Urine sed) 0-5 SEEN /hpf 5-10 [facility] Total proteinOrdered By: Joshua Alfred on 08-17-2024 Protein [Mass/Vol] 7.3 g/dL 5.9-8.4 [facility] Urinalysis, Completeon 08-17 BACTERIA 1+ /hpf Normal None Seen [facility] Comment on above: Order Comment: ERNESTO CTOR TO SPECIFY Performed By: #### L 400.0001 #### [facility] [address] [place], [address] EPI,SQUAMOUS 0-5 SEEN Normal 5-10 [facility] Comment on above: Order Comment: ERNESTO CTOR TO SPECIFY Performed By: #### L 400.0001 #### [facility] [address] [place], [address] Mucus Ql (Urine sed) RARE Normal [facility] Comment on above: Order Comment: ERNESTO CTOR TO SPECIFY Performed By: #### L 400.0001 #### [facility] [address] [place], [address] RBC > 100 SEEN Normal 0-5 [facility] Comment on above: Order Comment: ERNESTO CTOR TO SPECIFY Performed By: #### L 400.0001 #### [facility] [address] [place], [address] BILIRUBIN URINE Negative Normal Negative [facility] Comment on above: Order Comment: ERNESTO CTOR TO SPECIFY Performed By: #### L 400.0001 #### [facility] [address] [place], [address] Clarity (U) Clear Normal Clear [facility] Comment on above: Order Comment: ERNESTO CTOR TO SPECIFY Performed By: #### L 400.0001 #### [facility] [address] [place], [address] Color (U) Yellow Normal Yellow [facility] Comment on above: Order Comment: ERNESTO CTOR TO SPECIFY Performed By: #### L 400.0001 #### [facility] [address] [place], [address] GLUCOSE, UR Normal Normal Normal [facility] Comment on above: Order Comment: ERNESTO CTOR TO SPECIFY Performed By: #### L 400.0001 #### [facility] [address] [place], [address] KETONE UR 15 mg/dl Abnormal Negative [facility] Comment on above: Order Comment: COLLE CTOR TO SPECIFY Performed By: #### L 400.0001 #### [facility] [address] [place], [address] LEUK ESTERASE 25 /ul Abnormal Negative [facility] Comment on above: Order Comment: ERNESTO CTOR TO SPECIFY Performed By: #### L 400.0001 #### [facility] [address] [place], [address] Nitrite Ql (U) Negative Normal Negative [facility] Comment on above: Order Comment: ERNESTO CTOR TO SPECIFY Performed By: #### L 400.0001 #### [facility] [address] [place], [address] OCCULT BLOOD-UR 150 /ul Abnormal Negative [facility] Comment on above: Order Comment: ERNESTO CTOR TO SPECIFY Performed By: #### L 400.0001 #### [facility] [address] [place], [address] pH UR 7.0 Normal 5.0 - 8.0 [facility] Comment on above: Order Comment: ERNESTO CTOR TO SPECIFY Performed By: #### L 400.0001 #### [facility] [address] [place], [place], [facility] PROT DIPSTX 30 mg/dl Abnormal Negative [facility] Comment on above: Order Comment: ERNESTO CTOR TO SPECIFY Performed By: #### L 400.0001 #### [facility] [address] [place], [address] SP.GR. DIPSTX 1.010 Normal 1.002-1.030 [facility] Comment on above: Order Comment: ERNESTO CTOR TO SPECIFY Performed By: #### L 400.0001 #### [facility] [facility] [address] [place], [address] UROBILI 1 mg/dl Abnormal Normal [facility] Comment on above: Order Comment: ERNESTO CTOR TO SPECIFY Performed By: #### L 400.0001 #### [facility] [address] [place], [address] WBC 0 SEEN Normal 0-5 [facility] Comment on above: Order Comment: ERNESTO CTOR TO SPECIFY Performed By: #### L 400.0001 #### [facility] [address] [place], [place], [id number] Urine blood detectionOrdered By: Blane Alfred on 08-17-2024 Urine Occult Blood 150 /ul High Negative [facility] Urine clarityOrdered By: Joshua Alfred on 08-17-2024 Clarity (U) Clear Clear [facility] Urine color determinationOrd ered By: Blane Alfred on 08-17-2024 Color (U) Yellow Yellow [facility] Urine glucose detectionOrder ed By: Blane Alfred on 08-17-2024 Glucose Ql (U) Normal mg/dl Normal [facility] Urine leukocyte esterase det ection by dipstickOrdered By: Blane Alfred on 08-17-2024 Leukocyte esterase Test strip Ql (U) 25 /ul High Negative [facility] Urine pHOrdered By: Blane stahl on 08-17-2024 pH (U) 7.0 [pH] 5.0 - 8.0 [facility] Urine sediment bacteria coun t by microscopy (number/high power field)Ordered By: Blane Alfred on 08-17-2024 Bacteria LM.HPF (Urine sed) [#/Area] 1 /[HPF] None Seen [facility] Urine specific gravity measu rementOrdered By: Blane Alfred on 08-17-2024 Specific gravity (U) [Rel density] 1.010 1.002-1.030 [facility] Urine urobilinogen measureme ntOrdered By: Blane Alfred on 08-17-2024 Urobilinogen Ql (U) 1 mg/dl High Normal [facility] Urobilinogen Ql (U)Ordered B y: Blane Alfred on 08-17-2024 Urobilinogen (U) [Mass/Vol] 1 mg/dL High Normal [facility] White blood cell (WBC) count Ordered By: Blane Alfred on 08-17-2024 WBC (Bld) [#/Vol] 6.5 10*3/uL 4.4-11.0 [facility] White blood cell countOrdere d By: Blane Alfred on 08-17-2024 Urine WBC 0 SEEN /hpf 0-5 [facility] White blood cell count 0 SEEN /hpf 0-5 [facility] CNPNon 08-04-2024 CNPN Telephone (PSYLST) ORAL FLETCHER ([id number]) 3 F Date Time Provider Department 08/04/24 [...] 1 tablet by mouth once daily. - Znwpbjna-Og-Qoc-Fe-FA tab Take 1 tablet by mouth once [...] Encounter Status:Closed by BRENNA ODELL on 08/04/24 Normal [facility] Marly 06-24-2024 CNOV Office Visit (PSYLST ) ORAL FLETCHER ([id number]) 3 F Date Time Provider Department 06/24/24 8:00 AM YAREDHOLLYNATALIIABERTO ARANDA During your visit today, we recorded the [...] agreement to participate Originating site for client [place] Originating site for provider [place] Site appropriate for privacy No equipment failures, provided psychotherapy I have communicated my name and active licensure. The patient's identity and physical location were verified at the time of this visit. Either the patient or their legal litigation claim representative has been informed of the risks [...] a copy of the consent form on [employer]. The patient consented to a virtual visit and their location was confirmed. PRESENT: Child AGE: [age] year old RACE: White MARITAL STATUS: Living with significant other CHILDREN: Yes, son age one month Westley. 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 PAST MEDICAL HISTORY Diagnosis Date Anemia Depression/anxiety Ganglion cyst of wrist, left Irregular menses Low-lying placenta 01/26/2024 04/21/24- Resolved. Tran Gaytan APRN.CNM Repeat growth US at 32 weeks. Anitra Caldwell APRN.CNM PAST SURGICAL HISTORY Procedure Laterality Date DENTAL SURGERY HX 2015 ORTHOPEDICS SURGERY HX knee torn meniscus WRIST Left cyst on left wrist Current Outpatient Medications Medication Sig Ytzdqmyl-Lm-Qcm-Fe-FA tab Take 1 tablet by mouth once [...] find her. (more content not included)... Normal [facility] CNPNon 06-24-2024 CNPN Telephone (OBGYWM) ORAL FLETCHER ([id number]) 3 F Date Time Provider Department 06/24/24 TRAN GAYTAN OBGYWM During your visit today, we recorded the following information about you: Kayla Carlton, RN 06/24/2024 11:25 AM Signed Tran Gaytan APRN.CNM (Tack Driller) Learning And Development Coordinator Patient contacted by social work for women's behavioral health referral. Received this message: I just did a psych eval on Oral and I told her to contact you [facility] so you could possibly start her on [...] visit with me scheduled. Tomorrow is fine! Kayla Carlton, ADRIEN 06/24/2024 11:25 AM Signed Left [...] Appointment [186] Prescriptions as of 06/24/2024 - Xucfynhs-Xd-Cqx-Fe-FA tab Take 1 tablet by mouth once [...] Encounter Status:Closed by AMELIA MARTINEZ on 06/24/24 [facility] 06-17-2024 [facility] Telephone (PSYLMN) ORAL FLETCHER ([id number]) 3 F Date Time Provider Department 06/17/24 [...] MA - Fully Assessed Reason for Visit: Hand Iii Cutter - Other [3602] Cmt: Integrated Mental Health Plan of Care Prescriptions as of 06/17/2024 - Mstobulf-Aq-Hkm-Fe-FA tab Take 1 tablet by mouth once [...] Status:Closed by SAROJ EARLY on 06/17/24 Normal [facility] Absolute neutrophil countOrd ered By: Cherry Simons on 05-25-2024 Neutrophils (Bld) [#/Vol] 6.4 10*3/uL 2.0-7.7 [facility] Basophil percentageOrdered B y: Cherry Simons on 05-25-2024 Basophils/100 WBC (Bld) 0.2 % 0-1 [facility] CBC W/Diff, Automatedon Absolute Lymph 2.12 X10 3/uL Normal 0.83-4.51 [facility] Comment on above: Performed By: #### B KEVIN, L100.0100 #### [facility] [address] [place], [address] Absolute Neut 6.4 X10 3/uL Normal 2.0-7.7 [facility] Comment on above: Performed By: #### B KEVIN, L100.0100 #### [facility] [address] [place], [address] Basophils/100 WBC (Bld) 0.2 % Normal 0-1 [facility] Comment on above: Performed By: #### B KEVIN, L100.0100 #### [facility] [address] [place], [address] Eosinophils/100 WBC (Bld) 0.4 % Normal 0-5 [facility] Comment on above: Performed By: #### Isa FITZPATRICK, L100.0100 #### [facility] [address] [place], [address] Erythrocyte distribution width (RBC) [Ratio] 12.8 % Normal 11.6-14.6 [facility] Comment on above: Performed By: #### Isa FITZPATRICK, L100.0100 #### [facility] [address] [place], [address] Hematocrit (Bld) [Volume fraction] 36.6 % Low 37-47 [facility] Comment on above: Performed By: #### Isa FITZPATRICK, L100.0100 #### [facility] [address] [place], [address] Hemoglobin (Bld) [Mass/Vol] 12.7 g/dL Normal 12.0-15.0 [facility] Comment on above: Performed By: #### Isa FITZPATRICK, L100.0100 #### [facility] [address] [place], [address] IG% 0.600 Normal 0.0-0.9 [facility] Comment on above: Result Comment: IG% - Immature Granulocytes (promyelocytes, myelocytes and metamyelocytes) > 1% indicates that a LEFT SHIFT is Present. Performed By: #### Isa FITZPATRICK, L100.0100 #### [facility] [address] [place], [address] Lymphocytes/100 WBC (Bld) 23.4 % Normal 19-41 [facility] Comment on above: Performed By: #### Isa FITZPATRICK, L100.0100 #### [facility] [address] [place], [address] MCH (RBC) [Entitic mass] 30.0 pg Normal 27.0-32.0 [facility] Comment on above: Performed By: #### Isa FITZPATRICK, L100.0100 #### [facility] [address] [place], [address] MCHC (RBC) [Mass/Vol] 34.7 g/dL Normal 32-36 [facility] Comment on above: Performed By: #### Isa FITZPATRICK, L100.0100 #### [facility] [address] [place], [address] MCV (RBC) [Entitic vol] 86.3 fL Normal 81-99 [facility] Comment on above: Performed By: #### Isa FITZPATRICK, L100.0100 #### [facility] [address] [place], [address] Monocytes/100 WBC (Bld) 5.2 % Normal 0-10 [facility] Comment on above: Performed By: #### Isa FITZPATRICK, L100.0100 #### [facility] [address] [place], [address] Neutrophils/100 WBC (Bld) 70.2 % High 47-70 [facility] Comment on above: Performed By: #### Isa FITZPATRICK, L100.0100 #### [facility] [address] [place], [address] Nucleated RBC (Bld) [#/Vol] 0 10*3/uL Normal 0-5 [facility] Comment on above: Performed By: #### Isa FITZPATRICK, L100.0100 #### [facility] [address] [place], [address] Platelet mean volume (Bld) [Entitic vol] 12.0 fL Normal 6.2-12.0 [facility] Comment on above: Performed By: #### Isa FITZPATRICK, L100.0100 #### [facility] [address] [place], [address] Platelets (Bld) [#/Vol] 177 10*3/uL Normal 150-450 [facility] Comment on above: Performed By: #### Isa TS, L100.0100 #### [facility] [address] [place], [address] RBC (Bld) [#/Vol] 4.24 10*6/uL Normal 4.2-5.4 [facility] Comment on above: Performed By: #### Isa FITZPATRICK, L100.0100 #### [facility] [address] [place], [address] RDW SD 40.0 fl Normal 35.1-43.9 [facility] Comment on above: Performed By: #### Isa FITZPATRICK, L100.0100 #### [facility] [address] [place], [address] WBC (Bld) [#/Vol] 9.1 10*3/uL Normal 4.4-11.0 [facility] Comment on above: Performed By: #### Isa FITZPATRICK, L100.0100 #### [facility] [address] [place], [address] CNPNon 05-25-2024 CNPN Telephone (OBGYWM) ORAL FLETCHER ([id number]) 3 F Date Time Provider Department 05/25/24 CHERRY COLEMAN OBROCHELLE During your visit today, we [...] office to be seen or go to [facility] in contractions remain regular. Nora Haile LPN 05/25/2024 3:10 PM Signed Patient went to [facility] for evaluation Allergies As of Date: 05/25/2024 [...] 50 mg by mouth once daily. - Tlvrzqin-Yf-Twg-Fe-FA tab Take 1 tablet by mouth once [...] Status:Closed by NORA HAILE on 05/25/24 Normal [facility] Eosinophil percentageOrdered By: Cherry Simons on 05-25-2024 Eosinophils/100 WBC (Bld) 0.4 % 0-5 [facility] Erythrocyte distribution wid th ratioOrdered By: Cherry Simons on 05-25-2024 Erythrocyte distribution width (RBC) [Ratio] 12.8 % 11.6-14.6 [facility] Erythrocyte distribution wid th standard deviationOrdered By: Cherry Schuler on 05-25-2024 Erythrocyte distribution width (RBC) [Entitic vol] 40.0 fL 35.1-43.9 [facility] H AND P Exam - OB/GYNon H&P Exam - RUBBER GOODS INSPECTOR [facility] Medical Records Department [address] [place] [address] H P Exam - RUBBER GOODS INSPECTOR 05/25/24 1612 MR#: [id number] Acct: [id number] Name: ORAL FLETCHER Rep #: [id number] : 2005 18 From: Cherry Simons MD PCP: Care Physician,No Primary Status:ADM IN Location: [id number] HPI - General General Date of Admission: 05/25/24 HPI Narrative ORAL FLETCHER, is a 18 F @ 37.4 weeks who presents c/o contractions Maternal Data Information Final RICK: 06/11/24 Final RICK Source: US <20 weeks Gestational age: 37.4 [facility] Medical History (Updated 05/25/24 @ 16:[address] Cherry Simons MD) Anxiety Encounter for screening for [...] (more content not included)... Normal [facility] Hematocrit Auto (Bld) [Volum e fraction]Ordered By: Cherry Simons on 05-25-2024 Hematocrit (Bld) [Volume fraction] 36.6 % Low 37-47 [facility] Hemoglobin measurementOrdere d By: Cherry Simons on 05-25-2024 Hemoglobin (Bld) [Mass/Vol] 12.7 g/dL 12.0-15.0 [facility] Immature granulocytes/100 WB C Auto (Bld)Ordered By: Cherry Simons on 05-25-2024 Immature granulocytes/100 WBC (Bld) 0.600 % 0.0-0.9 [facility] Comment on above: IG% - Immature Granu locytes (promyelocytes, myelocytes and metamyelocytes) > 1% indicates that a LEFT SHIFT is Present. L509.8000on 05-25-2024 Syphilis Abs Non-Reactive Normal [facility] Comment on above: Performed By: #### L 509.8000 #### [facility] [address] [place] [address]. [place], [place], [id number] Lymphocytes Auto (Unsp spec) [#/Vol]Ordered By: Cherry Simons on 05-25-2024 Lymphocytes (Bld) [#/Vol] 2.12 10*3/uL 0.83-4.51 [facility] Lymphocytes/100 WBC Auto (Un sp spec)Ordered By: Cherry Simons on 05-25-2024 Lymphocytes/100 WBC (Bld) 23.4 % 19-41 [facility] MCV (mean corpuscular volume ) determinationOrdered By: Cherry Simons on 05-25-2024 MCV (RBC) [Entitic vol] 86.3 fL 81-99 [facility] MR/OB.VAGDELIon 05-25-2024 MR/OB.VAGGANGAI [facility] Medical Records Department [address] [place] [address] OB Vaginal Delivery 05/25/242053 MR#: [id number] Acct: [id number] Name: ORAL FLETCHER Rep #: [id number] : 2005 18 From: Cherry Simons MD PCP: Care Physician,No Primary Status:ADM IN Location: [place] [address] Vaginal Delivery Maternal Presentation Maternal Presentation: Active Labor Vaginal Delivery Information Procedure Performed: Spontaneous Vaginal Delivery Surgeon/Practitioner: Cherry Simons Date of Procedure: 05/25/24 Pre-Procedure Diagnosis: [...] posterior shoulder followed by the rest the infant's body without delay. The was then placed [...] Vessel Description: 3 Vessels Cord Entanglement: None A Gender: Male (1 minute): 7 (5 minute): 8 Delayed Cord Clamping: Yes Senior Integration Architect guest room inspector: No Post Vaginal Deli Medications given after delivery: IV Pitocin Episiotomy Description: None Laceration: Vaginal Extension/lac (repaired with 3-0 rapide ) and 1st degree Complication Complications: No 05/25/242057 Cosigner Signature (if applicable): CC: Dr Cherry Simons MD; No Primary Care Physician Signed Normal [facility] Mean corpuscular hemoglobin (MCH) determinationOrdered By: Cherry Schuler on 05-25-2024 MCH (RBC) [Entitic mass] 30.0 pg 27.0-32.0 [facility] Mean corpuscular hemoglobin concentration (MCHC) determinationOrdered By: Cherry Simons on 05-25-2024 MCHC (RBC) [Mass/Vol] 34.7 g/dL 32-36 [facility] Mean platelet volume determi nationOrdered By: Cherry Simons on 05-25-2024 Platelet mean volume (Bld) [Entitic vol] 12.0 fL 6.2-12.0 [facility] Monocyte percentageOrdered B y: Cherry Simons on 05-25-2024 Monocytes/100 WBC (Bld) 5.2 % 0-10 [facility] Neutrophil percentageOrdered By: Cherry Simons on 05-25-2024 Neutrophils/100 WBC (Bld) 70.2 % High 47-70 [facility] Nucleated red blood cell per centageOrdered By: Cherry Simons on 05-25-2024 Nucleated RBC/100 WBC (Bld) [Ratio] 0 % 0-5 [facility] Platelet countOrdered By: Rivera on 05-25-2024 Platelets (Bld) [#/Vol] 177 10*3/uL 150-450 [facility] RBC Auto (Bld) [#/Vol]Ordere d By: Cherry Simons on 05-25-2024 RBC (Bld) [#/Vol] 4.24 10*6/uL 4.2-5.4 [facility] Treponema sp Ab Ql (S)Ordere d By: Cherry Simons on 05-25-2024 Syphilis Total Antibody Non-Reactive [facility] Type AND Screenon 05-25-2024 Ab SCREEN GEL Negative Normal [facility] Comment on above: Order Comment: Labor Performed By: #### B TS, L100.0100 #### [facility] [address] [place], [place], [address] White blood cell (WBC) count Ordered By: Cherry Simons on 05-25-2024 WBC (Bld) [#/Vol] 9.1 10*3/uL 4.4-11.0 [facility] ROUTINE, GROUP B ST REP PCRon 05-18-2024 ROUTINE, GROUP B STREP PCR GROUP B STREP PCR: Negative for Group B Streptococcus by PCR. Normal [facility] Comment on above: Performed By: #### G BPCR ####[facility] LABCLIA [id number] [address] STATES OF [facility] URINE OB DIP B/Oon Glucose Ql (U) Negative Neg mg/dL [facility] Protein.monoclonal (U) [Mass/Vol] Negative Neg mg/dL [facility] URINE OB DIP B/OOrdered By: Roro Sanz on 05-11-2024 Glucose Ql (U) Negative Neg mg/dL [facility] Interpretation and review of laboratory results Normal [facility] Protein.monoclonal (U) [Mass/Vol] Negative Neg mg/dL [facility] CNOVon 05-05-2024 CNOV Office Visit (OBGYWM ) ORAL FLETCHER ([id number]) 3 F Date Time Provider Department 05/05/24 2:30 PM TRAN GAYTAN OBGYWM During your visit today, we recorded the following information about you: Blood pressure Weight 102/70 78.9 kg Tran Gaytan APRN.CNM 05/05/2024 4:12 PM Signed CP- CENTERING S: Oralniels Fletcher is a 18 year old female [...] call office - RTO 1 week for SD with GBS Tran Gaytan APRN.Ld Estevez MA 05/05/2024 1:43 PM Signed SEQUENTIAL SCREENINGS [facility] offers sequential screenings for women who [...] It will require an appointment with our installation and repair technician. This is not an ultrasound performed [...] the above symptoms, contact our office at [phone] and ask to speak with a nurse. After hours, you can call [facility] at [phone] OR call [facility] at [phone] and ask to have the doctor economic history teacher paged. If you consider this an emergency, dial 9-6-8 or go to your nearest emergency department. NEED HELP? Are you dealing with a violent or abusive relationship? Are you a victim of rape or sexual assult? Call [facility] ([place]) 24 hour Crisis Hotline: 275.747.9711 or 684-414-2816. MANUAL Your Guide to a Healthy manual is now on-line. Visit [email or web address]/Hemichael lthyPregnancyGuide to download your free copy Allergies [...] trimester [O26.893, R12] Order(s):URINE OB DIP B/O [0162294] Order #: [id number] Prescriptions as of 05/05/2024 - pantoprazole DR (PROTONIX) 20 mg tablet Take 1 tablet by mouth once daily. - aspirin, enteric coated (ECOTRIN LOW STRENGTH) 81 mg EC tablet Take 1 tablet by mouth once daily. - pyridoxine, vitamin B6, (VITAMIN B-6) 50 mg tablet Take 50 mg by mouth once daily. - Zizufgyg-Bz-Eme-Fe-FA tab Take 1 tablet by mouth once [...] of depressio (more content not included)... Normal [facility] CNPNon 04-22-2024 CNPN Telephone (OGFVWE) ORAL FLETCHER ([id number]) 3 F Date Time Provider Department 04/22/24 AMELIA ARMSTRONG During your visit today, we recorded the following information about you: Amelia Armstrong RN 04/22/2024 9:23 AM Signed 3rd risk assessment form submitted 04/22/2024. Amelia Armstrong RN Allergies As of Date: 04/22/2024 Noted Allergy Reaction LACTASE 06/26/2020 14 - Other: See Comments Date Reviewed: 04/21/2024 Reviewed by: Ld Duckworth MA - Fully Assessed Reason for Visit: Hand Iii Cutter - Other [0588] Cmt: PRAF Prescriptions as of 04/22/2024 - pantoprazole DR (PROTONIX) 20 mg tablet Take 1 tablet by mouth once daily. - aspirin, enteric coated (ECOTRIN LOW STRENGTH) 81 mg EC tablet Take 1 tablet by mouth once daily. - pyridoxine, vitamin B6, (VITAMIN B-6) 50 mg tablet Take 50 mg by mouth once daily. - Wynlcdvw-Yn-Gdg-Fe-FA tab Take 1 tablet by mouth once [...] Encounter Status:Closed by AMELIA ARMSTRONG on 04/22/24 [facility]arly 04-21-2024 CNOV Office Visit (OBGYWM ) ORAL FLETCHER ([id number]) 3 F Date Time Provider Department 04/21/24 2:30 PM TRAN GAYTAN During your visit today, we recorded the following information about you: Blood pressure Weight 106/68 75.8 kg Ld Duckworth MA 04/21/2024 2:04 PM Signed SEQUENTIAL SCREENINGS [facility] offers sequential screenings for women who [...] It will require an appointment with our installation and repair technician. This is not an ultrasound performed [...] the above symptoms, contact our office at [phone] and ask to speak with a nurse. After hours, you can call [facility] at [phone] OR call [facility] at [phone] and ask to have the doctor economic history teacher paged. If you consider this an emergency, dial 9-1-6 or go to your nearest emergency department. NEED HELP? Are you dealing with a violent or abusive relationship? Are you a victim of rape or sexual assult? Call [facility] ([facility] 24 hour Crisis Hotline: 464.871.2089 or 107-596-1011. MANUAL Your Guide to a Healthy manual is now on-line. Visit [email or web address]/Hemichael lthyPregnancyGuide to download your free copy Tran Gaytan APRN.CNM 04/21/2024 3:10 PM Signed CP- CENTERING S: Oral Fletcher is a 18 year old female [...] - PTL precautions reviewed RTO 2 weeks Tran Gaytan APRN.CNM Allergies As of Date: 04/21/2024 [...] 50 mg by mouth once daily. - Psjemqiv-Eg-Yxo-Fe-FA tab Take 1 tablet by mouth once [...] first w (more content not included)... Normal [facility] Examination level ultrasound on 04-21-2024 [facility] Radiology Study observation (narrative) [facility] Turner 03-25-2024 MARKY Telephone (LORENZAWAlexa) ORAL FLETCHER ([id number]) 3 F Date Time Provider Department 03/25/24 ROBSON ROMERO During your visit today, we recorded the following information about you: Robson Romero APRN.CNP 03/25/2024 2:59 PM Signed Even if 3 hour is elevated, passed GTT. 2 hour is 60. Patient does not need do have last draw - recommend eating something. Please call lab/notify patient. Robson Romero APRN.Gurdeep Lux RN 03/25/2024 3:06 PM Signed Lab notified along with patient. Gurdeep Somers RN Allergies As of Date: 03/25/2024 [...] 50 mg by mouth once daily. - Egdbszen-Nq-Poi-Fe-FA tab Take 1 tablet by mouth once [...] tolerance test [R73.09] 03/18/2024 Encounter Status:Closed by GURDEEP SOMERS on 03/25/24 Normal [facility] GLUCOSE GESTATIONAL, 1 HOURo n 03-25-2024 Glucose 1 Hr post Unsp challenge [Mass/Vol] 88 mg/dL Normal 74-179 [facility] Comment on above: Order Comment: Kevin matthews Type: BLOOD SPECIMENOrdering Facility: [facility] Address: [address] [place] [address] Result Comment: [facility] Congress of Obstetricians and Gynecologists (Lois/Wade) guidelines state gestational diabetes mellitus is present when 2 or more of the plasma glucose concentrations meet or exceed the following levels: fastin mg/dl, 1 hr: 180 mg/dl, 2 hr: 155 mg/dl, and 3 hr: 140 mg/dl. Performed By: #### G TGST1 ####[facility] [id number] [address] OF [facility] GLUCOSE GESTATIONAL, 2 HOURo n 03-25-2024 Glucose 2 Hr post Unsp challenge [Mass/Vol] 60 mg/dL Low 74-154 [facility] Comment on above: Order Comment: Kevin matthews Type: BLOOD SPECIMENOrdering Facility: [facility] Address: [address] [place] [address] Result Comment: [facility] Congress of Obstetricians and Gynecologists (Lois/Wade) guidelines state gestational diabetes mellitus is present when 2 or more of the plasma glucose concentrations meet or exceed the following levels: fastin mg/dl, 1 hr: 180 mg/dl, 2 hr: 155 mg/dl, and 3 hr: 140 mg/dl. Performed By: #### G TGST2 ####[facility] [id number] [place] [address] [place] GLUCOSE GESTATIONAL, FASTING on 03-25-2024 Glucose post fast [Mass/Vol] 82 mg/dL Normal 74-94 [facility] Comment on above: Order Comment: Speci men Type: BLOOD SPECIMENOrdering Facility: [facility] Address: [address] [place] [address] Result Comment: [facility] Congress of Obstetricians and Gynecologists (Lois/Wade) guidelines state gestational diabetes mellitus is present when 2 or more of the plasma glucose concentrations meet or exceed the following levels: fastin mg/dl, 1 hr: 180 mg/dl, 2 hr: 155 mg/dl, and 3 hr: 140 mg/dl. Performed By: #### G TGSTF ####[facility] [id number] [address] OF [place] Basic Metabolic Profile (BMP )on 03-21-2024 BUN/CRE 12.8 RATIO Normal 10-20 [facility] Comment on above: Performed By: #### L 500.2500, L500.3400, L501.5200, L100.0100 #### [facility] [address] [place], [address] CA,Total 8.7 mg/dL Normal 8.5-10.1 [facility] Comment on above: Performed By: #### L 500.2500, L500.3400, L501.5200, L100.0100 #### [facility] [address] [place], [address] Chloride [Moles/Vol] 105 mmol/L Normal 98-107 [facility] Comment on above: Performed By: #### L 500.2500, L500.3400, L501.5200, L100.0100 #### [facility] [address] [place], [address] CO2 [Moles/Vol] 25.0 mmol/L Normal 21.0-32.0 [facility] Comment on above: Performed By: #### L 500.2500, L500.3400, L501.5200, L100.0100 #### [facility] [address] [place], [address] Creatinine [Mass/Vol] 0.47 mg/dL Low 0.55-1.02 [facility] Comment on above: Result Comment: The validity of the calculated GFR GFRAA in patients over 70 years has not been determined. Clinical correlation is essential. Performed By: #### L 500.2500, L500.3400, L501.5200, L100.0100 #### [facility] [address] [place], [address] ECRCL 188.38 ml/min Normal [facility] Comment on above: Performed By: #### L 500.2500, L500.3400, L501.5200, L100.0100 #### [facility] [address] [place], [address] EST GFR - AA 218 mL/min Normal >60 [facility] Comment on above: Result Comment: Afri can Algerian GFR Calc Performed By: #### L 500.2500, L500.3400, L501.5200, L100.0100 #### [facility] [address] [place], [address] GAP 7 Normal 5-15 [facility] Comment on above: Performed By: #### L 500.2500, L500.3400, L501.5200, L100.0100 #### [facility] [address] [place], [address] GFR/1.73 sq M.predicted among non-blacks MDRD (S/P/Bld) [Vol rate/Area] 180 mL/min/{1.73_m2} Normal >60 [facility] Comment on above: Result Comment: Non- GFR Calc Performed By: #### L 500.2500, L500.3400, L501.5200, L100.0100 #### [facility] [address] [place], [address] Glucose [Mass/Vol] 80 mg/dL Normal 74-106 [facility] Comment on above: Performed By: #### L 500.2500, L500.3400, L501.5200, L100.0100 #### [facility] [address] [place], [address] Potassium [Moles/Vol] 3.5 mmol/L Normal 3.5-5.1 [facility] Comment on above: Performed By: #### L 500.2500, L500.3400, L501.5200, L100.0100 #### [facility] [address] [place], [address] Sodium [Moles/Vol] 137 mmol/L Normal 136-145 [facility] Comment on above: Performed By: #### L 500.2500, L500.3400, L501.5200, L100.0100 #### [facility] [address] [place], [address] Urea nitrogen [Mass/Vol] 6 mg/dL Low 7-18 [facility] Comment on above: Performed By: #### L 500.2500, L500.3400, L501.5200, L100.0100 #### [facility] [address] [place], [address] CBC W/Diff, Automatedon 11-0 -2023 Absolute Lymph 1.21 X10 3/uL Normal 0.83-4.51 [facility] Comment on above: Performed By: #### L 500.2500, L500.3400, L501.5200, L100.0100 #### [facility] [address] [place], [address] Absolute Neut 4.9 X10 3/uL Normal 2.0-7.7 [facility] Comment on above: Performed By: #### L 500.2500, L500.3400, L501.5200, L100.0100 #### [facility] [address] [place], [address] Basophils/100 WBC (Bld) 0.1 % Normal 0-1 [facility] Comment on above: Performed By: #### L 500.2500, L500.3400, L501.5200, L100.0100 #### [facility] [address] [place], [address] Eosinophils/100 WBC (Bld) 0.6 % Normal 0-5 [facility] Comment on above: Performed By: #### L 500.2500, L500.3400, L501.5200, L100.0100 #### [facility] [address] [place], [address] Erythrocyte distribution width (RBC) [Ratio] 12.6 % Normal 11.6-14.6 [facility] Comment on above: Performed By: #### L 500.2500, L500.3400, L501.5200, L100.0100 #### [facility] [address] [place], [address] Hematocrit (Bld) [Volume fraction] 31.5 % Low 37-47 [facility] Comment on above: Performed By: #### L 500.2500, L500.3400, L501.5200, L100.0100 #### [facility] [address] [place], [address] Hemoglobin (Bld) [Mass/Vol] 11.3 g/dL Low 12.0-15.0 [facility] Comment on above: Performed By: #### L 500.2500, L500.3400, L501.5200, L100.0100 #### [facility] [address] [place], [address] IG% 0.400 Normal 0.0-0.9 [facility] Comment on above: Result Comment: IG% - Immature Granulocytes (promyelocytes, myelocytes and metamyelocytes) > 1% indicates that a LEFT SHIFT is Present. Performed By: #### L 500.2500, L500.3400, L501.5200, L100.0100 #### [facility] [address] [place], [address] Lymphocytes/100 WBC (Bld) 18.0 % Low 19-41 [facility] Comment on above: Performed By: #### L 500.2500, L500.3400, L501.5200, L100.0100 #### [facility] [address] [place], [address] MCH (RBC) [Entitic mass] 31.4 pg Normal 27.0-32.0 [facility] Comment on above: Performed By: #### L 500.2500, L500.3400, L501.5200, L100.0100 #### [facility] [address] [place], [address] MCHC (RBC) [Mass/Vol] 35.9 g/dL Normal 32-36 [facility] Comment on above: Performed By: #### L 500.2500, L500.3400, L501.5200, L100.0100 #### [facility] [address] [place], [address] MCV (RBC) [Entitic vol] 87.5 fL Normal 81-99 [facility] Comment on above: Performed By: #### L 500.2500, L500.3400, L501.5200, L100.0100 #### [facility] [address] [place], [address] Monocytes/100 WBC (Bld) 7.7 % Normal 0-10 [facility] Comment on above: Performed By: #### L 500.2500, L500.3400, L501.5200, L100.0100 #### [facility] [address] [place], [address] Neutrophils/100 WBC (Bld) 73.2 % High 47-70 [facility] Comment on above: Performed By: #### L 500.2500, L500.3400, L501.5200, L100.0100 #### [facility] [address] [place], [address] Nucleated RBC (Bld) [#/Vol] 0 10*3/uL Normal 0-5 [facility] Comment on above: Performed By: #### L 500.2500, L500.3400, L501.5200, L100.0100 #### [facility] [address] [place], [address] Platelet mean volume (Bld) [Entitic vol] 11.5 fL Normal 6.2-12.0 [facility] Comment on above: Performed By: #### L 500.2500, L500.3400, L501.5200, L100.0100 #### [facility] [address] [place], [address] Platelets (Bld) [#/Vol] 146 10*3/uL Low 150-450 [facility] Comment on above: Performed By: #### L 500.2500, L500.3400, L501.5200, L100.0100 #### [facility] [address] [place], [address] RBC (Bld) [#/Vol] 3.60 10*6/uL Low 4.2-5.4 [facility] Comment on above: Performed By: #### L 500.2500, L500.3400, L501.5200, L100.0100 #### [facility] [address] [place], [address] RDW SD 39.6 fl Normal 35.1-43.9 [facility] Comment on above: Performed By: #### L 500.2500, L500.3400, L501.5200, L100.0100 #### [facility] [address] [place], [address] WBC (Bld) [#/Vol] 6.7 10*3/uL Normal 4.4-11.0 [facility] Comment on above: Performed By: #### L 500.2500, L500.3400, L501.5200, L100.0100 #### [facility] [address] [place], [address] Emergency Department Summary on 03-21-2024 Emergency Department Summary [facility] Medical Records Department [address] [place] [address] Emergency Department Summary 03/21/24 MR#: [id number] Acct: [id number] Name: ORAL FLETCHER Rep #: [id number] : 2005 18 From: Vlad Jay DO [...] an infective process she presents for evaluation. [facility] Medical History Encounter for screening [...] Neck supple (more content not included)... Normal [facility] Liver Profileon 03-21-2024 Albumin [Mass/Vol] 3.0 g/dL Low 3.2-5.0 [facility] Comment on above: Performed By: #### L 500.2500, L500.3400, L501.5200, L100.0100 #### [facility] [address] [place], [address] ALK P 68 U/L Normal 45-117 [facility] Comment on above: Performed By: #### L 500.2500, L500.3400, L501.5200, L100.0100 #### [facility] [address] [place], [address] ALT [Catalytic activity/Vol] 21 U/L Normal 13-56 [facility] Comment on above: Performed By: #### L 500.2500, L500.3400, L501.5200, L100.0100 #### [facility] [address] [place], [address] AST [Catalytic activity/Vol] 10 U/L Low 15-37 [facility] Comment on above: Performed By: #### L 500.2500, L500.3400, L501.5200, L100.0100 #### [facility] [address] [place], [address] Bilirubin [Mass/Vol] 0.50 mg/dL Normal 0.20-1.00 [facility] Comment on above: Result Comment: For patients on eltrombopag therapy, use of Dimension [place] TBIL is not recommended. Performed By: #### L 500.2500, L500.3400, L501.5200, L100.0100 #### [facility] [address] [place], [address] Bilirubin.direct [Mass/Vol] 0.14 mg/dL Normal 0.00-0.30 [facility] Comment on above: Performed By: #### L 500.2500, L500.3400, L501.5200, L100.0100 #### [facility] [address] [place], [address] Globulin (S) [Mass/Vol] 3.9 g/dL Normal 2.2-4.2 [facility] Comment on above: Performed By: #### L 500.2500, L500.3400, L501.5200, L100.0100 #### [facility] [address] [place], [address] T PROT 6.9 g/dL Normal 6.4-8.2 [facility] Comment on above: Performed By: #### L 500.2500, L500.3400, L501.5200, L100.0100 #### [facility] [address] [place], [address] Magnesiumon 03-21-2024 Magnesium [Mass/Vol] 1.8 mg/dL Normal 1.6-2.6 [facility] Comment on above: Performed By: #### L 500.2500, L500.3400, L501.5200, L100.0100 #### [facility] [address] [place], [address] CNPNon 03-19-2024 CNPN Telephone (OBGYWM) ORAL FLETCHER ([id number]) 3 F Date Time Provider Department 03/19/24 ANITRA CALDWELL During your visit today, we recorded the following information about you: Anitra Caldwell APRN.CNM 03/19/2024 1:02 PM Signed Can you please assist patient in getting SD visit 2 weeks from last visit. She [...] 50 mg by mouth once daily. - Hifsapya-Va-Fju-Fe-FA tab Take 1 tablet by mouth once [...] Status:Closed by AMELIA MARTINEZ on 03/19/24 Normal [facility] CBC W Auto Differential pane l (Bld)on 03-18-2024 Basophils (Bld) [#/Vol] 10*3/uL Normal <0.11 [facility] Comment on above: Order Comment: Speci men Type: BLOOD SPECIMENOrdering Facility: [facility] Address: [address] [place] [address] Performed By: #### 5 7021-8 ####[facility] MILLLOYDAWNCLIA [id number] [place] [address] [place] Basophils/100 WBC (Bld) 0.2 % Normal [facility] Comment on above: Order Comment: Speci men Type: BLOOD SPECIMENOrdering Facility: [facility] Address: [address] [place] [address] Performed By: #### 5 7021-8 ####[facility] MILLWNCLIA [id number] [place] [address] [place] Differential cell count method Nom (Bld) Auto Normal [facility] Comment on above: Order Comment: Speci men Type: BLOOD SPECIMENOrdering Facility: [facility] Address: [address] [place] [address] Performed By: #### 5 7021-8 ####[facility] MOISESWDIMITRIOSLIA [id number] [place] [address] [place] Eosinophils (Bld) [#/Vol] 10*3/uL Normal <0.46 [facility] Comment on above: Order Comment: Speci men Type: BLOOD SPECIMENOrdering Facility: [facility] Address: [address] [place] [address] Performed By: #### 5 7021-8 ####[facility] MOISESBISMARCKDIMITRIOSLIA [id number] [place] [address] [place] Eosinophils/100 WBC (Bld) 0.2 % Normal [facility] Comment on above: Order Comment: Speci men Type: BLOOD SPECIMENOrdering Facility: [facility] Address: [address] [place] [address] Performed By: #### 5 7021-8 ####[facility]ITALNCLIA [id number] [place] [address] [place] Erythrocyte distribution width (RBC) [Ratio] 12.5 % Normal 11.5-15.0 [facility] Comment on above: Order Comment: Speci men Type: BLOOD SPECIMENOrdering Facility: [facility] Address: [address] [place] [address] Performed By: #### 5 7021-8 ####[facility] MOISESBISMARCKNCCHLOEA [id number] [place] [address] [place] Hematocrit (Bld) [Volume fraction] 32.4 % Low 36.0-46.0 [facility] Comment on above: Order Comment: Speci men Type: BLOOD SPECIMENOrdering Facility: [facility] Address: [address] [place] [address] Performed By: #### 5 7021-8 ####[facility] HOSPITALNCA [id number] [place] [address] [place] Hemoglobin (Bld) [Mass/Vol] 11.3 g/dL Low 11.5-15.5 [facility] Comment on above: Order Comment: Speci men Type: BLOOD SPECIMENOrdering Facility: [facility] Address: [address] [place] [address] Performed By: #### 5 7021-8 ####[facility]ITALNCLIA [id number] [place] [address] [place] Immature granulocytes (Bld) [#/Vol] 0.03 10*3/uL Normal <0.10 [facility] Comment on above: Order Comment: Speci men Type: BLOOD SPECIMENOrdering Facility: [facility] Address: [address] [place] [address] Performed By: #### 5 7021-8 ####[facility]OS[facility]ITALNCLIA [id number] [place] [address] [place] Immature granulocytes/100 WBC (Bld) 0.6 % Normal [facility] Comment on above: Order Comment: Speci men Type: BLOOD SPECIMENOrdering Facility: [facility] Address: [address] [place] [address] Performed By: #### 5 7021-8 ####[facility] MILLTOWNCLIA [id number] [place] [address] [place] Lymphocytes (Bld) [#/Vol] 1.15 10*3/uL Normal 1.00-4.00 [facility] Comment on above: Order Comment: Speci men Type: BLOOD SPECIMENOrdering Facility: [facility] Address: [address] [place] [address] Performed By: #### 5 7021-8 ####[facility] HOSPITALWNCLIA [id number] [place] [address] [place] Lymphocytes/100 WBC (Bld) 23.0 % Normal [facility] Comment on above: Order Comment: Speci men Type: BLOOD SPECIMENOrdering Facility: [facility] Address: [address] [place] [address] Performed By: #### 5 7021-8 ####[facility]ITALNCLIA [id number] [place] [address] [place] MCH (RBC) [Entitic mass] 30.7 pg Normal 26.0-34.0 [facility] Comment on above: Order Comment: Speci men Type: BLOOD SPECIMENOrdering Facility: [facility] Address: [address] [place] [address] Performed By: #### 5 7021-8 ####[facility] MILLBISMARCKNCLIA [id number] [place] [address] [place] MCHC (RBC) [Mass/Vol] 34.9 g/dL Normal 30.5-36.0 [facility] Comment on above: Order Comment: Speci men Type: BLOOD SPECIMENOrdering Facility: [facility] Address: [address] [place] [address] Performed By: #### 5 7021-8 ####[facility]ITALNCLIA [id number] [place] [address] [place] MCV (RBC) [Entitic vol] 88.0 fL Normal 80.0-100.0 [facility] Comment on above: Order Comment: Speci men Type: BLOOD SPECIMENOrdering Facility: [facility] Address: [address] [place] [address] Performed By: #### 5 7021-8 ####[facility] [id number] [place] [address] [place] Monocytes (Bld) [#/Vol] 0.37 10*3/uL Normal <0.87 [facility] Comment on above: Order Comment: Speci men Type: BLOOD SPECIMENOrdering Facility: [facility] Address: [address] [place] [address] Performed By: #### 5 7021-8 ####[facility] [id number] [place] [address] [place] Monocytes/100 WBC (Bld) 7.4 % Normal [facility] Comment on above: Order Comment: Speci men Type: BLOOD SPECIMENOrdering Facility: [facility] Address: [address] [place] [address] Performed By: #### 5 7021-8 ####[facility] HOSPITALLIA [id number] [place] [address] [place] Neutrophils (Bld) [#/Vol] 3.43 10*3/uL Normal 1.45-7.50 [facility] Comment on above: Order Comment: Speci men Type: BLOOD SPECIMENOrdering Facility: [facility] Address: [address] [place] [address] Performed By: #### 5 7021-8 ####[facility]ITALNCLIA [id number] [place] [address] [place] Neutrophils/100 WBC (Bld) 68.6 % Normal [facility] Comment on above: Order Comment: Speci men Type: BLOOD SPECIMENOrdering Facility: [facility] Address: [address] [place] [address] Performed By: #### 5 7021-8 ####[facility] HOSPITALNCCHLOE [id number] [place] [address] [place] Nucleated RBC (Bld) [#/Vol] 10*3/uL Normal <0.01 [facility] Comment on above: Order Comment: Speci men Type: BLOOD SPECIMENOrdering Facility: [facility] Address: [address] [place] [address] Performed By: #### 5 7021-8 ####[facility]ITALNCDEL[facility] [id number] [place] [address] [place] Nucleated RBC/100 WBC (Bld) [Ratio] 0.0 /100 WBC Normal [facility] Comment on above: Order Comment: Speci men Type: BLOOD SPECIMENOrdering Facility: [facility] Address: [address] [place] [address] Performed By: #### 5 7021-8 ####[facility] [id number] [place] [address] [place] Platelet mean volume (Bld) [Entitic vol] 10.3 fL Normal 9.0-12.7 [facility] Comment on above: Order Comment: Speci men Type: BLOOD SPECIMENOrdering Facility: [facility] Address: [address] [place] [address] Performed By: #### 5 7021-8 ####[facility]ITALNCLIA [id number] [place] [address] [place] Platelets (Bld) [#/Vol] 156 10*3/uL Normal 150-400 [facility] Comment on above: Order Comment: Speci men Type: BLOOD SPECIMENOrdering Facility: [facility] Address: [address] [place] [address] Performed By: #### 5 7021-8 ####[facility]OSPITALNCLIA [id number] [place] [address] [place] RBC (Bld) [#/Vol] 3.68 10*6/uL Low 3.90-5.20 [facility] Comment on above: Order Comment: Speci men Type: BLOOD SPECIMENOrdering Facility: [facility] Address: [address] [place] [address] Performed By: #### 5 7021-8 ####[facility]ITALNCLIA [id number] [place] [address] [place] WBC (Bld) [#/Vol] 5.00 10*3/uL Normal 3.70-11.00 [facility] Comment on above: Order Comment: Speci men Type: BLOOD SPECIMENOrdering Facility: [facility] Address: [address] [place], [place] [address] [address] Performed By: #### 5 7021-8 ####[facility]PITALNCLIA [id number] [address] [place] CNOVon 03-18-2024 CNOV Office Visit (WSTR ) ORAL FLETCHER ([id number]) 3 F Date Time Provider Department 03/18/24 12:45 PM NEETA REY WSTR During your visit today, we recorded the following information about you: Temperature Pulse Respiration Blood pressure 96.9 degrees 97/minute 20/minute 107/69 Weight 73.3 kg Neeta Rey, ZULEYMA 03/18/2024 1:36 PM Signed This note was created using NoteWriter. Subjective Oral Fletcher is a 18 year old female. [...] Take 50 mg by mouth once daily. Lyaozojn-Se-Ebk-Fe-FA tab Take 1 tablet by mouth once [...] AND RSV PCR, ROUTINE [SQCVFLRS] Order #: [id number]. #:[id number] STREP A MOLECULAR (POC) [7427852] Order #: [id number]. #:[id number] (more content not included)... Normal [facility] 03-18-2024 CNPN Telephone (OBGYWM) JESORAL ([id number]) 3 F Date Time Provider Department 03/18/24 [...] 3-HR, 100 GM, FASTING [SQGTGST3] Order #: [id number] FUTURE Prescriptions as of 03/18/2024 - aspirin, enteric coated (ECOTRIN LOW STRENGTH) 81 mg EC tablet Take 1 tablet by mouth once daily. - pyridoxine, vitamin B6, (VITAMIN B-6) 50 mg tablet Take 50 mg by mouth once daily. - Twxgrvwi-Pt-Xxz-Fe-FA tab Take 1 tablet by mouth once [...] Status:Closed by NORA HAILE on 03/18/24 Normal [facility] COVID AND INFLUENZA A/B AND RSV PCR, ROUTINEon 03-18-2024 SARS-CoV-2 (COVID-19) RNA RUPESH+probe Ql (Unsp spec) SARS-COV-2 (AGENT OF COVID-19) RNA: Not detected INFLUENZA A RNA: Not detected INFLUENZA B RNA: Not detected RESPIRATORY SYNCYTIAL VIRUS (RSV) RNA: Not detected Normal [facility] Comment on above: Performed By: #### C VFLRS ####[facility] LABCLIA [id number] [place] [address] [place] GESTATIONAL GLUCOSE SCREEN, 1-HOUR, 50 GRAM, NON-FASTINGon 03-18-2024 Glucose [Mass/Vol] 135 mg/dL High 74-134 [facility] Comment on above: Order Comment: Speci men Type: BLOOD SPECIMENOrdering Facility: [facility] Address: [address] [place] [address] Result Comment: [facility] Congress of Obstetricians and Gynecologists (Lois/Coustan) guidelines state a gestational diabetes mellitus positive screen is made, in women not previously diagnosed with overt diabetes, when the 1 hr plasma glucose level is equal to or above 140 mg/dL. [facility] Learning And Development Coordinator and [facility] [place] recommends a 135 mg/dL cutoff. Performed By: #### G LTGST ####[facility] [id number] [place] [address] [place] Reagin and Treponema pallidu m IgG and IgM [Interp]on 03-18-2024 T. pallidum IgG+IgM IA Ql (S) Non-Reactive Normal Nonreactive [facility] Comment on above: Order Comment: Speci men Type: BLOOD SPECIMENOrdering Facility: [facility] Address: [address] [place] [address] Performed By: #### 7 3752-8 ####[facility] [id number] [place] [id number] [place] Reagin+T pallidum IgG+IgM Se rPl-Impon 03-18-2024 Reagin and Treponema pallidum IgG and IgM [Interp] Cannot exclude recent Treponemal infection if specimen collected within 7-10 days after appearance of suspect lesions or 2-3 weeks after an exposure. Clinical correlation is required. Normal [facility] Comment on above: Order Comment: Speci men Type: BLOOD SPECIMENOrdering Facility: [facility] Address: [address] [place] [address] Performed By: #### 7 3752-8 ####[facility] LABIA [id number] [place] [id number] [place] STREP A MOLECULAR (POC)on Procedural Control Valid [facility] Strep A (POCT) Negative Negative [facility] OB Triage Physician Noteon 1 OB Triage Physician Note [facility] Medical Records Department [address] [place] [address] OB Triage Physician Note 03/13/24 0759 MR#: [id number] Acct: [id number] Name: ORAL FLETCHER Rep #: [id number] : 2005 18 From: Tran Gaytan CNM PCP: Dr. Ren Carlson MD Status:REG CLI Y Location: JP559-2 HPI - General HPI Narrative ORAL FLETCHER, is a 18 F who presents with decreased movement. Patient stated she has felt movement but not as much as usual. PFSH PFSH Medical History Encounter for screening for COVID-19 [...] sports seatbelt use: always 03/13/24 0810 Date Tran Gonzáles Signature (if applicable): Date CC: ELIAZAR Gaytan; Dr. Ren Carlson MD Signed ADDENDUM by ELIAZAR Gaytan on 03/13/24 at 0927 Addendum RICK 06/11/24 27.1 weeks gestation NST reactive for gestational age 145 bpm/ mod. variability Patient has felt movement since arrival Reviewed kick counts / PTL precautions D/C home with follow up in office this week 03/13/24926 Date Tran Gaytan CNM cc: ELIAZAR Gaytan; Dr. Ren Carlson MD * Signed Normal [facility] Urinalysis, Completeon 03-13 AMORPHOUS 1+ Normal [facility] Comment on above: Order Comment: ERNESTO CTOR TO SPECIFY Performed By: #### L 400.0001 #### [facility] [address] [place], [address] Mucus Ql (Urine sed) 1+ /hpf Normal [facility] Comment on above: Order Comment: ERNESTO CTOR TO SPECIFY Performed By: #### L 400.0001 #### [facility] [address] [place], [address] WBC 0-5 SEEN Normal 0-5 [facility] Comment on above: Order Comment: ERNESTO CTOR TO SPECIFY Performed By: #### L 400.0001 #### [facility] [address] [place], [address] BACTERIA 3+ /hpf Normal None Seen [facility] Comment on above: Order Comment: ERNESTO CTOR TO SPECIFY Performed By: #### L 400.0001 #### [facility] [address] [place], [address] EPI,SQUAMOUS 5-10 SEEN Normal 5-10 [facility] Comment on above: Order Comment: ERNESTO CTOR TO SPECIFY Performed By: #### L 400.0001 #### [facility] [address] [place], [address] RBC 0 SEEN Normal 0-5 [facility] Comment on above: Order Comment: COLLE CTOR TO SPECIFY Performed By: #### L 400.0001 #### [facility] [place] [address] [place], [address] CNOVon 02-25-2024 CNOV Office Visit (OBGYWM ) ORAL FLETCHER ([id number]) 3 F Date Time Provider Department 02/25/24 2:30 PM TRAN GAYTAN OBGYWM During your visit today, we recorded the following information about you: Blood pressure Weight 110/68 71.5 kg Tran Gaytan APRN.CN 02/25/2024 4:34 PM Signed CP- CENTERING S: Oral Fletcher is a 18 year old female [...] PTL precautions reviewed - RTO 4 weeks Tran Gaytan APRN.CNM Nadine Teresa, ANNABELLA 02/25/2024 2:22 PM Signed SEQUENTIAL SCREENINGS [facility] offers sequential screenings for women who [...] It will require an appointment with our installation and repair technician. This is not an ultrasound performed [...] the above symptoms, contact our office at [phone] and ask to speak with a nurse. After hours, you can call doctors registry at [phone] OR call [facility] at [phone] and ask to have the doctor economic history teacher paged. If you consider this an emergency, dial 9-1-7 or go to your nearest emergency department. NEED HELP? Are you dealing with a violent or abusive relationship? Are you a victim of rape or sexual assult? Call [facility] ([place]) 24 hour Crisis Hotline: 723.316.1225 or 952-195-1618. MANUAL Your Guide to a Healthy manual is now on-line. Visit [email or web address]/Hea lthyPregnancyGuide to download your free copy Allergies As of Date: 02/25/2024 Noted Allergy Reaction LACTASE 06/26/2020 14 - Other: See Comments Date Reviewed: 02/25/2024 Reviewed by: Tran Gaytan APRN.CNM - Fully Assessed Reason for [...] BLOOD COUNT AND DIFFERENTIAL [SQCBCDIF] Order #: [id number] FUTURE GESTATIONAL GLUCOSE SCREEN, 1-HOUR, 50 GRAM, NON-FASTING [SQGLTGST] Order #: [id number] FUTURE SYPHILIS TREPONEMAL W/REFLEX [SQSYPHTX] Order #: [id number] FUTURE aspirin, enteric coated (ECOTRIN LOW STRENGTH) [...] mouth every 6 hours as needed. - Rcrcczhm-Xq-Azc-Fe-FA tab Take 1 tablet by mouth once daily. With folic acid and DHA as covered by insurance. - VIT 10-IRON FUM-FOLIC ORAL Take by mouth. - ondansetron orally disintegrating (ZOFRAN ODT) 4 mg disintegrating tablet EVERY 8 HOURS N (more content not included)... Normal [facility] 02-25-2024 [facility] ([facility]) ORAL FLETCHER ([id number]) 3 F Date Time Provider Department 02/25/24 PLOTTS, TRAN OBGYWM During your visit today, we recorded [...] See Comments Date Reviewed: 02/25/2024 Reviewed by: Tran Gaytan APRN.CNM - Fully Assessed Reason for [...] mouth every 6 hours as needed. - Rwhbatoa-Kt-Jui-Fe-FA tab Take 1 tablet by mouth once [...] during [O26.899, R12] 02/25/2024 Encounter Status:Closed by TOSHIA LACY on 02/26/24 [facility] Tele[facility] ([id number]) ORAL FLETCHER ([id number]) 3 F Date Time Provider Department 01/26/24 AMELIA ARMSTRONG [id number] During your visit today, we recorded the following information about you: Amelia Armstrong RN 01/26/2024 8:47 AM Signed 2nd risk assessment form submitted 01/26/2024. Amelia Armstrong RN Allergies As of Date: 01/26/2024 Noted Allergy Reaction LACTASE 06/26/2020 14 - Other: See Comments Date Reviewed: 01/23/2024 Reviewed by: Tammi Bteancourt MA - Fully Assessed Reason for Visit: Hand Iii Cutter - Other [0032] Cmt: PRAFeroz Prescriptions as of 01/26/2024 - pyridoxine, vitamin B6, (VITAMIN B-6) 50 mg tablet Take 50 mg by mouth once daily. - promethazine (PHENERGAN) 12.5 mg tablet Take 1 tablet by mouth every 6 hours as needed. - aspirin, enteric coated (ECOTRIN LOW STRENGTH) 81 mg EC tablet Take 1 tablet by mouth once daily. - Npxxqbcs-Ih-Zlm-Fe-FA tab Take 1 tablet by mouth once [...] Encounter Status:Closed by AMELIA ARMSTRONG on 01/26/24 [facility] Telephone (OBGYWM) FLETCHERORAL ([id number]) 3 F Date Time Provider Department 01/26/24 ANITRA CALDWELL During your visit today, we recorded the following information about you: Kayla Carlton RN 01/26/2024 12:21 PM Signed ----- Message from Anitra Caldwell APRN.ELIAZAR sent at 01/26/2024 11:43 AM EDT ----- Anatomy ultrasound reviewed. Please assist in scheduling follow up US at 32 weeks for placental location. Please place copy in OB chart. GIL Taylor Tara, RN 01/26/2024 12:22 PM Signed Left message for patient to call office. ADRIEN De Guzman Trisha, RN 01/27/2024 1:49 PM Signed Patient notified. Toshia Lacy RN Allergies As of Date: 01/26/2024 [...] 1 tablet by mouth once daily. - Mqavflmu-Rs-Cle-Fe-FA tab Take 1 tablet by mouth once [...] Low-lying placenta [O44.40] 01/26/2024 Encounter Status:Closed by TOSHIA LACY on 01/27/24 Normal [facility] Examination level ultrasound on 01-23-2024 Indication [...] 13 oz EFW by: Hadlock (HC-AC-FL) Extended Division Manager 6.0 mm CM 7.3 mm 97% Nicolaides [...] normal LVOT view: normal 3-vessel view: normal 1-ejbtzg-gujibso view: normal Heart / Thorax Situs: situs [...] ovary: Visualized Lt ovary: Visualized Performed By: Gurdeep Partida RDMS, RVT Read By: Deandra Reza M.D. MATERNAL MEDICINE [facility] Radiology Study observation (narrative) [facility] ALPHA FETOPRO MATERNALon AFP, MATERNAL 0.67 MoM Normal [facility] Comment on above: Order Comment: Speci men Type: BLOOD SPECIMENOrdering Facility: [facility] Address: [address] [place] [address] Result Comment: 21.9 7 ng/mL Performed By: #### A FPMAT ####[facility] LABCLIA [id number] [place] [address] [place] DATE OF COLLECTION #1 12/23/23 Normal [facility] Comment on above: Order Comment: Speci men Type: BLOOD SPECIMENOrdering Facility: [facility] Address: [address] [place] [address] Performed By: #### A FPMAT ####[facility] LABCLIA [id number] [place] [address] [place] DATE RECEIVED 12/24/23 Normal [facility] Comment on above: Order Comment: Speci men Type: BLOOD SPECIMENOrdering Facility: [facility] Address: [address] [place] [address] Performed By: #### A FPMAT ####[facility] LABCLIA [id number] [place] [address] [place] RICK 06/11/24 Normal [facility] Comment on above: Order Comment: Speci men Type: BLOOD SPECIMENOrdering Facility: [facility] Address: [address] [place] [address] Performed By: #### A FPMAT ####[facility] LABCLIA [id number] [place] [address] [place] GESTATION AT DATE OF SAMPLE 15 weeks 4 days (by scan) Normal [facility] Comment on above: Order Comment: Speci men Type: BLOOD SPECIMENOrdering Facility: [facility] Address: [address] [place] [address] Performed By: #### A FPMAT ####[facility] LABCLIA [id number] [place] [address] [place] INSULIN DEPENDENT DIABETES None Normal [facility] Comment on above: Order Comment: Speci men Type: BLOOD SPECIMENOrdering Facility: [facility] Address: [address] [place] [address] Performed By: #### A FPMAT ####[facility] LABCLIA [id number] [address] [place] IVF No Normal [facility] Comment on above: Order Comment: Speci men Type: BLOOD SPECIMENOrdering Facility: [facility] Address: [address] [place] [address] Performed By: #### A FPMAT ####[facility] LABCLIA [id number] [address] [place] MATERNAL AFP COMMENT See comments below Normal [facility] Comment on above: Order Comment: Kevin matthews Type: BLOOD SPECIMENOrdering Facility: [facility] Address: [address] [place] [address] Result Comment: INTE RPRETATION Screening result : Screen negative Risk of NTD : 1 in 5,400 Comment : The interpretation is for NTD only A screen negative result does not exclude the possibility of a neural tube defect, because screening does not detect all affected pregnancies Performed By: #### A FPMAT ####[facility] LABCLIA [id number] [address] [place] MATERNAL AGE AT RICK 18 years Normal [facility] Comment on above: Order Comment: Rylandi men Type: BLOOD SPECIMENOrdering Facility: [facility] Address: [address] [place] [address] Performed By: #### A FPMAT ####[facility] LABCLIA [id number] [place] [address] [place] PATIENT'S WEIGHT DAY OF COLLECTION 140 lb. Normal [facility] Comment on above: Order Comment: Speci men Type: BLOOD SPECIMENOrdering Facility: [facility] Address: [address] [place] [address] Performed By: #### A FPMAT ####[facility] LABCLIA [id number] [place] [address] [place] INTERP-MATERNAL AFP Negative Normal Screen Negative [facility] Comment on above: Order Comment: Speci men Type: BLOOD SPECIMENOrdering Facility: [facility] Address: [address] [place] [address] Performed By: #### A FPMAT ####[facility] LABCLIA [id number] [place] [address] [place] PREVIOUS NTD None Normal [facility] Comment on above: Order Comment: Speci men Type: BLOOD SPECIMENOrdering Facility: [facility] Address: [address] [place] [address] Performed By: #### A FPMAT ####[facility] LABCLIA [id number] [place] [address] [place] RISK OF NTD ;1:5400 Normal [facility] Comment on above: Order Comment: Speci men Type: BLOOD SPECIMENOrdering Facility: [facility] Address: [address] [place] [address] Performed By: #### A FPMAT ####[facility] LABCLIA [id number] [place] [address] [place] SAMPLE #1 [id number] Normal [facility] Comment on above: Order Comment: Speci men Type: BLOOD SPECIMENOrdering Facility: [facility] Address: [address] [place] [address] Performed By: #### A FPMAT ####[facility] LABCLIA [id number] [address] [place] STAFF REVIEW (MATERNAL SCREENS) Reviewed by Dane Golden MD, Ph.D ([id number]) Normal [facility] Comment on above: Order Comment: Speci men Type: BLOOD SPECIMENOrdering Facility: [facility] Address: [address] [place] [address] Performed By: #### A FPMAT ####[facility] LABCLIA [id number] [address] [place] Bacteria Ur Culton 4 Bacteria identified Cx Nom (U) ORGANISM ID: 1 50,000-<100,000 CFU/ml Normal urogenital manny Normal [facility] Comment on above: Performed By: #### 6 30-4 ####[facility] LABCLIA [id number] [address] OF [facility] CNOVon 12-12-2023 CNOV [facility] ORAL FLETCHER ([id number]) 3 F Date Time Provider Department 12/12/23 2:45 PM JOSEPH HSU [facility] During your visit today, we recorded the following information about you: Temperature Pulse Respiration Blood pressure 98 degrees 102/minute 18/minute 116/77 Weight 62 kg Joseph Hsu APRN.RADIOLOGIST CHIEF OF BREAST IMAGING 12/12/2023 3:31 PM Signed Subjective HPI HPI Oral Fletcher is a 18 year old female who presents today for CC of nausea/vomiting, is 14 weeks . Currently prescribed multiple anti nausea medications from before school. Tolerating fluids/solids, last void was just before [...] Take 1 tablet by mouth once daily. Xsmjuwyc-Qi-Mui-Fe-FA tab Take 1 tablet by mouth once [...] ICD10: R11.0 Continue taking medication ordered by imaging clerk Red flag s/s discussed Work note provided Joseph Hsu APRN.RADIOLOGIST [facility] [employer] [facility] Allergies As of Date: 12/12/2023 Noted Allergy [...] 1 tablet by mouth once daily. - Tvrbeypg-Ca-Xcd-Fe-FA tab Take 1 tablet by mouth once [...] 08/19/2023 12/02/2023 (more content not included)... Normal [facility] CNPNon 12-09-2023 CNPN Telephone (OBGYWM) FLETCHERORAL ([id number]) 3 F Date Time Provider Department 12/09/23 [...] IV hydration as an option. Anitra Caldwell APRN.Kayla Moralez RN 12/10/2023 9:37 AM Signed Pt notified and voiced understanding. Kayla Carlton RN Allergies As of Date: 12/09/2023 Noted Allergy Reaction LACTASE 06/26/2020 14 - Other: See Comments Date Reviewed: 11/28/2023 Reviewed by: Beckler, Lisa, HAND MICA PLATE LAYER - Fully Assessed Reason for Visit: Nausea [...] 1 tablet by mouth once daily. - Rqpjztbr-Ti-Vss-Fe-FA tab Take 1 tablet by mouth once [...] a day as needed. Encounter Status:Closed by KAYLA CARLTON on 12/10/23 [facility] 12-05-2023 [facility] (OB[facility]WM) ORAL FLETCHER ([id number]) 3 F Date Time Provider Department 12/05/23 ANITRA CALDWELL OBROCHELLE During your visit today, we recorded [...] 1 tablet by mouth once daily. - Ruuhxlrs-Rf-Qxc-Fe-FA tab Take 1 tablet by mouth once [...] uncertain date of L*11/17/2023 Encounter Status:Closed by KAYLA CARLTON on 12/05/23 Normal [facility] nuchal translucency me asured by on 11-28-2023 Indication First trimester anatomic survey Impression REMOTE READ The patient is referred for a first trimester anatomy scan including nuchal translucency measurement as clinically indicated. - Single, live, intrauterine . - Sena rump length measurement is consistent with the [...] view: normal 4-chamber view with color: normal 4-pqsqzv-vwdpmxc view: normal Abdominal cord insertion: normal Stomach: [...] Lt ovary Vol 7.7 cm Performed By: Gurdeep Partida RDMS, RVT Read By: Deandra Reza M.D. MATERNAL MEDICINE [facility] Radiology Study observation (narrative) [facility] POC WATER TREATMENT TECHNICIAN ULTRASOUNDon 11-17-19 Indication Viability; confirm cardiac activity [...] Read By: Anitra Caldwell CNM MATERNAL MEDICINE [facility] BACTERIAL VAGINOSIS NAATon 0 11-15-2023 Interpretation and review of laboratory results Normal [facility] Lactobacillus crispatus+gasseri+elpidio enii + Gardnerella vaginalis + Atopobium vaginae rRNA RUPESH+probe Ql (Vag fld) Negative Negative for bacterial vaginosis [facility] C. trachomatis+N. gonorrhoea e DNA RUPESH+probe Ql (Unsp spec)on 11-15-2023 C. trachomatis rRNA RUPESH+probe Ql (Unsp spec) Negative Negative for Chlamydia trachomatis by amplificaton [facility] Interpretation and review of laboratory results Normal [facility] N. gonorrhoeae rRNA RUPESH+probe Ql (Unsp spec) Negative Negative for Neisseria gonorrhoeae by amplification [facility] LESLIE/TRICHOMONAS NAATon 0 11-15-2023 C. glabrata RNA RUPESH+probe Ql (Vag fld) Negative Negative for Leslie glabrata [facility] Leslie sp DNA RUPESH+probe Ql (Vag fld) Negative Negative for Leslie species [facility] Interpretation and review of laboratory results Normal [facility] T. vaginalis DNA RUPESH+probe Ql (Unsp spec) Negative Negative for Trichomonas vaginalis by amplification [facility] POC WATER TREATMENT TECHNICIAN ULTRASOUNDon 11-14-19 24 Radiology Study observation (narrative) [facility] MR Knee - left WO contraston 08-29-2023 [facility] XR Knee - left 4 Viewson [facility] Absolute lymphocyte countOrd ered By: Vlad Jya on 06-03-2023 Lymphocytes Auto (Unsp spec) [#/Vol] 2.43 10*3/uL 0.83-4.51 [facility] Acetaminophen level (mass/vo lume)Ordered By: Vlad Jay on 06-03-2023 Acetaminophen (Unsp spec) [Mass/Vol] 42.2 ug/mL 10.0-30.0 [facility] Basophil percentageOrdered B y: Vlad Jay on 06-03-2023 Basophil percentage 0 SEEN /hpf 0-5 [facility] Basophils/100 WBC (Bld) 0.3 % 0-1 [facility] Bilirubin [Mass/Vol] 0.90 mg/dL 0.20-1.00 [facility] Comment on above: For patients on eltr ombopag therapy, use of Dimension [place] TBIL is not recommended. Chloride [Moles/Vol] 106 mmol/L 98-107 [facility] Eosinophils/100 WBC (Bld) 0.8 % 0-3 [facility] Glucose [Mass/Vol] 99 mg/dL 74-106 [facility] Neutrophils (Bld) [#/Vol] 2.9 10*3/uL 2.0-7.7 [facility] Neutrophils/100 WBC (Bld) 50.0 % 34-64 [facility] Potassium [Moles/Vol] 3.6 mmol/L 3.5-5.1 [facility] Protein [Mass/Vol] 7.4 g/dL 6.4-8.2 [facility] Sodium [Moles/Vol] 140 mmol/L 136-145 [facility] WBC (Bld) [#/Vol] 5.9 10*3/uL 4.5-13.0 [facility] Bilirubin Test strip Ql (U)O rdered By: Vald Jay on 06-03-2023 Bilirubin Ql (U) Negative Negative [facility] Blood erythrocytes count (nu mber/volume)Ordered By: Vlad Jay on 06-03-2023 RBC (Bld) [#/Vol] 4.69 10*6/uL 4.1-4.8 [facility] Blood hemoglobin measurement (mass/volume)Ordered By: Vlad Jay on 06-03-2023 Hemoglobin (Bld) [Mass/Vol] 13.1 g/dL 12.0-15.0 [facility] Blood lymphocytes/100 leukoc ytesOrdered By: Vlad Jay on 06-03-2023 Lymphocytes/100 WBC (Bld) 41.3 % 25-45 [facility] Blood monocytes/100 leukocyt esOrdered By: Vlad Jay on 06-03-2023 Monocytes/100 WBC (Bld) 7.3 % 3-6 [facility] Blood platelet mean volumeOr dered By: Vlad Jay on 06-03-2023 Platelet mean volume (Bld) [Entitic vol] 10.9 fL 6.2-12.0 [facility] COVID-19 virus antigen assay Ordered By: Vlad Jay on 06-03-2023 SARS-CoV-2 (COVID-19) Ag IA.rapid Ql (Resp) [facility] Determination of erythrocyte mean corpuscular volume (MCV)Ordered By: Vlad Jay on 06-03-2023 MCV (RBC) [Entitic vol] 82.9 fL 78-96 [facility] Direct bilirubinOrdered By: Vlad Jay on 06-03-2023 Bilirubin.direct [Mass/Vol] 0.24 mg/dL 0.00-0.30 [facility] Hematocrit Auto (Bld) [Volum e fraction]Ordered By: Vlad Jay on 06-03-2023 Hematocrit (Bld) [Volume fraction] 38.9 % 37-46 [facility] INR in Blood by Coagulation assayOrdered By: Vlad Jay on 06-03-2023 INR Coag (Bld) [Relative time] 1.1 {INR} [facility] Ketones Test strip Ql (U)Ord ered By: Vlad Jay on 06-03-2023 Ketones Ql (U) Negative Negative [facility] - Chemistry and C hemistry - challengeOrdered By: Vlad Jay on 06-03-2023 ALP [Catalytic activity/Vol] 52 U/L 47-119 [facility] ALT [Catalytic activity/Vol] 17 U/L 13-56 [facility] CO2 [Moles/Vol] 28.0 mmol/L 21.0-32.0 [facility] Globulin (S) [Mass/Vol] 3.1 g/dL 2.2-4.2 [facility] HCG ( test) Ql (U) Negative [facility] Comment on above: Very dilute urine sp ecimens, as indicated by a low specificgravity, may not contain litigation claim representative levels of hCG. If is still suspected, a first morning urinespecimen should be collected 48 hours later and tested. Urea nitrogen/Creatinine [Mass ratio] 14.0 mg/mg 10-20 [facility] - CoagulationOrde red By: Vlad Jay on 06-03-2023 PT Coag (PPP) [Time] 14.3 s 11.7-14.9 [facility] - Drug toxicology Ordered By: Vlad Jay on 06-03-2023 Amphetamines Ql (U) Negative <1000 ng/mL [facility] Benzodiazepines Ql (U) Negative < 200 ng/mL [facility] Cannabinoids Screen Ql (U) Positive < 50 ng/mL [facility] Cocaine Ql (U) Negative < 300 ng/mL [facility] Opiates Ql (U) Negative < 300 ng/mL [facility] - Hematology and Cell countsOrdered By: Vlad Jay on 06-03-2023 Erythrocyte distribution width (RBC) [Entitic vol] 38.3 fL 35.1-43.9 [facility] Erythrocyte distribution width (RBC) [Ratio] 12.8 % 11.6-14.6 [facility] Immature granulocytes/100 WBC (Bld) 0.300 % 0.0-0.9 [facility] Comment on above: IG% - Immature Granu locytes (promyelocytes, myelocytes and metamyelocytes) > 1% indicates that a LEFT SHIFT is Present. MCH (RBC) [Entitic mass] 27.9 pg 25.0-35.0 [facility] Nucleated RBC/100 WBC (Bld) [Ratio] 0 % 0-5 [facility] MCHC Auto (RBC) [Mass/Vol]Or dered By: Vlad Jay on 06-03-2023 MCHC (RBC) [Mass/Vol] 33.7 g/dL 32-36 [facility] Mucus LM Ql (Urine sed)Order ed By: Vlad Jay on 06-03-2023 Mucus Ql (Urine sed) 0 SEEN /hpf [facility] Nitrite Test strip Ql (U)Ord ered By: Vlad Jay on 06-03-2023 Nitrite Ql (U) Negative Negative [facility] No Panel InformationOrdered By: Vlad Jay on 06-03-2023 Estimated Creatinine Clearance Calc 116.44 ml/min [facility] Estimated GFR (MDRD) Amer 136 mL/min >60 [facility] Comment on above: GFR Calc Estimated GFR (MDRD) Non-Af Amer 112 mL/min >60 [facility] Comment on above: Non- GFR Calc Ethyl Alcohol Level < 3.0 mg/dL [facility] Comment on above: The serum:whole bloo d ethanol ratio is approximately 1.14and varies slightly with hematocrit. Medical Alcohol reference interval and critical value innon-tolerant individuals; 50 - 100 Impairment 100 Intoxication 100 - 250 Severe Poisoning 250 - 400 Deep/possible fatal coma MDMA (Ecstasy) Screen Negative < 500 ng/mL [facility] Urine Barbiturates Screen Negative < 200 ng/mL [facility] Urine Drug Screen Comment [facility] Comment on above: CONFIRMATORY TESTING FOR ALL [...] Methadone Screen Negative < 300 ng/mL [facility] Platelets bldOrdered By: Koko Jay on 06-03-2023 Platelets (Bld) [#/Vol] 215 10*3/uL 150-450 [facility] Protein Test strip Ql (U)Ord ered By: Vlad Jay on 06-03-2023 Protein Ql (U) 15 mg/dl Negative [facility] Serum or plasma albumin harriet urement (mass/volume)Ordered By: Vlad Jay on 06-03-2023 Albumin [Mass/Vol] 4.3 g/dL 3.2-5.0 [facility] Serum or plasma calcium harriet urement (mass/volume)Ordered By: Vlad Jay on 06-03-2023 Calcium [Mass/Vol] 9.4 mg/dL 8.5-10.1 [facility] Serum or plasma creatinine m easurement (mass/volume)Ordered By: Vlad Jay on 06-03-2023 Creatinine [Mass/Vol] 0.71 mg/dL 0.55-1.02 [facility] Comment on above: The validity of the calculated GFR & GFRAA in patients over 70 years has not been determined. Clinical correlation is essential. Serum or plasma salicylates measurement (mass/volume)Ordered By: Vlad Jay on 06-03-2023 Salicylates [Mass/Vol] mg/dL 2.8-20.0 [facility] Serum or plasma urea nitroge n measurement (mass/volume)Ordered By: Vlad Jay on 06-03-2023 Urea nitrogen [Mass/Vol] 10 mg/dL 7-18 [facility] Squamous epithelial cells de tection in urine sediment by light microscopyOrdered By: Vlad Jay on 06-03-2023 Epithelial cells.squamous LM Ql (Urine sed) 0 SEEN /hpf 5-10 [facility] Thin prep Papanicolaou smear with manual screeningOrdered By: Vlad Jay on 06-03-2023 Thin prep Papanicolaou smear with manual screening 7 U/L 15-37 [facility] Thin prep Papanicolaou smear with manual screening 6 5-15 [facility] Urine blood detectionOrdered By: Vlad Jay on 06-03-2023 RBC Ql (U) 10 /ul Negative [facility] RBC Ql (U) 0 SEEN /hpf 0-5 [facility] Urine clarityOrdered By: Koko Jay on 06-03-2023 Clarity (U) Clear Clear [facility] Urine color determinationOrd ered By: Vlad Jay on 06-03-2023 Color (U) Yellow Yellow [facility] Urine glucose detectionOrder ed By: Vlad Jay on 06-03-2023 Glucose Ql (U) Normal mg/dl Normal [facility] Urine leukocyte esterase det ection by dipstickOrdered By: Vlad Jay on 06-03-2023 Leukocyte esterase Test strip Ql (U) 25 /ul Negative [facility] Urine pHOrdered By: Vlad bravo on 06-03-2023 pH (U) 7.0 [pH] 5.0 - 8.0 [facility] Urine phencyclidine (PCP) de tectionOrdered By: Vlad Jay on 06-03-2023 Phencyclidine Ql (U) Negative < 25 ng/mL [facility] Urine sediment bacteria coun t by microscopy (number/high power field)Ordered By: Vlad Jay on 06-03-2023 Bacteria LM.HPF (Urine sed) [#/Area] 0 /[HPF] None Seen [facility] Urine specific gravity measu rementOrdered By: Vlad Jay on 06-03-2023 Specific gravity (U) [Rel density] 1.010 1.002-1.030 [facility] Urobilinogen Auto test strip Ql (U)Ordered By: Vlad Jay on 06-03-2023 Urobilinogen Ql (U) Normal mg/dl Normal [facility] ED NOTEon 04-18-2023 ED NOTE HNO ID: [id number] Author: Michael Gomez RN Service: Emergency Medicine Author Type: Registered Nurse Type: ED Notes Filed: 04/23/2023 5:36 AM Note Text: Chart accessed for audit purposes on 04/23/23. [facility] ED NOTE HNO ID: [id number] Author: Shelby Leach, RN Service: Emergency Medicine Author Type: Registered Nurse Type: ED Notes Filed: 04/18/2023 7:36 AM Note Text: Patient is alert and oriented, denies any questions/concerns at this time. Patient verbalizes understanding of d/c instructions, medications and follow up care. Patient ambulates from department at this time. Normal [facility] ED PROV NOTEon 04-18-2023 ED PROV NOTE HNO ID: [id number] Author: Fred Lopez MD Service: Emergency Medicine Author Type: Physician Type: ED Provider Notes Filed: 04/18/2023 8:20 AM Note Text: ED Provider Note Patient Name: Oral Fletcher : 2005 SERVICE DATE: 04/18/23 History Patient presents with: Sore Throat Congested Oral Fletcher is a 17 year old female [...] loss of (more content not included)... Normal [facility] FLUABV+SARS-CoV-2+RSV Pnl Re sp RUPESH+probeon 04-18-2023 FLUABV+SARS-CoV-2+RSV Pnl Resp RUPESH+probe COVID 19 RESULT: Not detected The method used is RT-PCR or an equivalent NAAT method. Reference Range(the expected result in uninfected individuals): Not detected INFLUENZA A PCR: Not detected INFLUENZA B PCR: Not detected RSV PCR: Not detected Normal [facility] Comment on above: Performed By: #### 9 [id number] #### [facility] CLIA [id number] [address] [place] [address] [place] S pyo DNA Throat Ql RUPESH+prob jose martin 04-18-2023 S. pyogenes DNA RUPESH+probe Ql (Throat) Not detected Normal Not detected [facility] Comment on above: Order Comment: Speci men Type: SWAB Ordering Facility: [facility] Address: [address] [place] [address] Performed By: #### 6 [id number] #### [facility] CLIA [id number] [address] [place] [address] [place] STREP A MOLECULAR (POC)on Procedural Control Valid [facility] Strep A (POCT) Negative Negative [facility] No Panel Informationon 02-18 Radiology Study observation (narrative) [facility] XR Ankle - right AP and Late ral and obliqueon 02-18-2023 IMPRESSION: No fracture. Recording Artist: [email or web address] Transcribe Date/Time: Feb 18 2023 12:08P Dictated by : JULIETH MELARA MD This examination was interpreted and the report reviewed and electronically signed by: JULIETH MELARA MD on Feb 18 2023 12:11PM [facility] DIVISION OF RADIOLOGY * * *Final Report* [...] soft tissue swelling. DIVISION OF RADIOLOGY Provider, [facility] - 02/18/2023 * * *Final Report* [...] soft tissue swelling. IMPRESSION IMPRESSION: No fracture. Recording Artist: PSC Transcribe Date/Time: Feb 18 2023 12:08P Dictated by : JULIETH MELARA MD This examination was interpreted and the report reviewed and electronically signed by: JULIETH MELARA MD on Feb 18 2023 12:11PM EST [facility] XR Ankle - right AP and Late ral and obliqueOrdered By: Ccf Provider on 02-18-2023 [facility] XR Foot - right AP and Later al and obliqueon 02-18-2023 IMPRESSION: No acute osseous abnormality Recording Artist: [facility] Transcribe Date/Time: Feb 18 2023 12:22P Dictated by : FRED MCKENNA MD This examination was interpreted and the report reviewed and electronically signed by: FRED MCKENNA MD on Feb 18 2023 12:25PM [facility] DIVISION OF RADIOLOGY * * *Final Report* [...] the navicular bone. DIVISION OF RADIOLOGY Provider, [facility] - 02/18/2023 * * *Final Report* [...] bone. IMPRESSION IMPRESSION: No acute osseous abnormality Recording Artist: [facility] Transcribe Date/Time: Feb 18 2023 12:22P Dictated by : FRED MCKENNA MD This examination was interpreted and the report reviewed and electronically signed by: FRED MCKENNA MD on Feb 18 2023 12:25PM EST [facility] XR Foot - right AP and Later al and obliqueOrdered By: Ccf Provider on 02-18-2023 [facility] STREP A MOLECULAR (POC)on Procedural Control Valid [facility] Strep A (POCT) Negative Negative [facility] MRI KNEE WO IVCON LTon 10-16 [facility] ALLIED HEALTHon 09-26-2021 ALLIED HEALTH HNO ID: [id number] Author: RT Xiomara(R) Service: ? Author Type: Basic Acoustic Analyst Type: Allied Health Filed: 09/26/2021 12:17 PM [...] RT Xiomara(R) September 26, 2021 12:16 PM [facility] XR KNEE 4V AP/PA BOTH+LAT/ME R LTon [...] seen in the lateral and patellofemoral compartments. Recording Artist: [email or web address] Transcribe Date/Time: Sep 26 2021 12:52P Dictated by : JULIETH MELARA MD This examination was interpreted and the report reviewed and electronically signed by: JULIETH MELARA MD on Sep 26 2021 12:56PM EST [id number] [facility] XR KNEE GENERAL 4V AP BOTH/P A BOTH/LAT/MERC LEFTon 09-26-2021 [facility] ANES Yumi 12-03-2019 ANES POST HNO ID: [id number] Author: Jocy Beatty Service: Anesthesiology Author Type: [...] Remarks: SIGNATURE: Jocy Beatty MD PATIENT NAME: Oral Fletcher DATE: December 03, 2019 TIME: 5:58 PM PAGER/CONTACT #: [facility] ANES PREOPon 12-03-2019 ANES PREOP HNO ID: [id number] Author: Jocy Beatty Service: Anesthesiology Author Type: [...] topical cream (LMX) TOPICAL PRN Jennifer N (Owen-C) Diego - ceFAZolin iv piggyback 2 g in D5W (iso-osmotic) 100 mL (ANCEF) 2 g INTRAVENOUS Pre-Op Once Jennifer N (Owen-C) Diego - lactated ringers infusion 5-30 mL/hr INTRAVENOUS CONTINUOUS Jennifer N (Owen-C) Diego - midazolam (PF) 2 mg injection (VERSED) 2 mg INTRAVENOUS Pre-Op Once Jocy Beatty - acetaminophen 1,000 mg tab(s) (TYLENOL) 1,000 mg ORAL Pre-Op Once Jocy Beatty Allergies: ALLERGIES No Known Allergies DOS EXAM: [...] Surgery/Procedure. SIGNATURE: Jocy Beatty MD PATIENT NAME: Oral Fletcher DATE: December 03, 2019 TIME: 6:49 AM CSN: [id number] [facility] OPERATIVE NOon 12-03-2019 OPERATIVE NO HNO ID: [id number] Author: Eb Domingo Service: Orthopaedic Surgery Author Type: Physician Type: Operative Report Filed: 12/03/2019 8:39 AM Note Text: ORTHOPAEDIC SURGERY OPERATIVE REPORT Patient Name: Oral Fletcher Log ID: [id number] Surgery Date: 12/03/2019 Start Time: 7:50 AM [...] Hand AND Upper Extremity Orthopaedic Staff Surgeon [facility] PT EDon 12-03-2019 PT ED HNO ID: [id number] Author: Lorraine (Rn) Per RN Service: Nursing Author Type: Registered Nurse [...] Signed By: Lorraine Albarado RN In Department: [facility] AMBULATORY SURGERY - ASCE [facility] SURGICAL PATHOLOGYon 020 SURGICAL PATHOLOGY Specimen #: [id number] Submitting Physician: EB DOMINGO FINAL DIAGNOSIS [...] 0.3 cm. Entirely submitted in cassette A1. GABOB/slisa 12/06/2019 Gross examination performed at [facility], [address] [place] [id number] Date of Report: 12/08/2019 Date of Procedure: 12/03/2019 Date of Receipt: 12/03/2019 Submitted by: EB DOMINGO [facility] Diagnostic interpretation performed at [facility], [address] [place], [place] [id number]. [place] Number: [id number] [facility] HOSPon 11-16-2019 HOSP Patient:Oral Fletcher MRN: Height:5' 4[patient reported[(1.626 m) Weight:146 [...] COMPLAINT: Left Wrist pain and mass HPI: Oral Fletcher is a 13 year old D [...] performed a history and physical examination on Oral Fletcher to verify the one performed by Fady Steel MD. I reviewed their findings, plan and note, and have made changes above as needed so that I agree with the documentation. I discussed the plan with the patient. Dorian Domingo MD, PhD Hand AND Upper Extremity Orthopaedic Staff Surgeon Previous Version [facility] Office Visit: UC: bronchitis , pharyngitison 03-20-2017 Documentation of current medications (procedure) Done Invalid Interpretation Code [facility] Work Phone: Fall risk assessment No Invalid Interpretation Code [facility] Work Phone: Tobacco smoking status NHIS Never Invalid Interpretation Code [facility] Work Phone: Tobacco use [facility] Never smoker Invalid Interpretation Code [facility] Work Phone: Office Visit: UC: jovani dukes 08-12-2016 Rapid strep test Positive Invalid Interpretation Code [facility] Work Phone: Vital Signs Date Time Vital Sign Value Performing Clinician Facility 12-08-2024 07:44-0400 Body temperature 98.6 [degF] No Primary Care Physician [facility] 12-08-2024 07:44-0400 Diastolic blood pressure 87 mm[Hg] No Primary Care Physician [facility] 12-08-2024 07:44-0400 Heart rate 57 /min No Primary Care Physician [facility] 12-08-2024 07:44-0400 Respiratory rate 20 /min No Primary Care Physician [facility] 12-08-2024 07:44-0400 SaO2% (BldA) [Mass fraction] 100 % No Primary Care Physician [facility] 12-08-2024 07:44-0400 Systolic blood pressure 112 mm[Hg] No Primary Care Physician [facility] 12-08-2024 06:03-0400 Body height 162.56 cm No Primary Care Physician [facility] 12-08-2024 06:03-0400 Body mass index (BMI) [Ratio] 22.8 kg/m2 No Primary Care Physician [facility] 12-08-2024 06:03-0400 Body weight 60.2 kg No Primary Care Physician [facility] 12-07-2024 23:15-0400 Body temperature 97.8 [degF] No Primary Care Physician [facility] 12-07-2024 23:15-0400 Diastolic blood pressure 96 mm[Hg] No Primary Care Physician [facility] 12-07-2024 23:15-0400 Heart rate 96 /min No Primary Care Physician [facility] 12-07-2024 23:15-0400 Respiratory rate 15 /min No Primary Care Physician [facility] 12-07-2024 23:15-0400 SaO2% (BldA) [Mass fraction] 97 % No Primary Care Physician [facility] 12-07-2024 23:15-0400 Systolic blood pressure 130 mm[Hg] No Primary Care Physician [facility] 12-07-2024 21:09-0400 Body height 162.56 cm No Primary Care Physician [facility] 12-07-2024 21:09-0400 Body mass index (BMI) [Ratio] 22.6 kg/m2 No Primary Care Physician [facility] 12-07-2024 21:09-0400 Body weight 59.78 kg No Primary Care Physician [facility] 12-05-2024 12:53-0400 Body temperature 97.6 [degF] No Primary Care Physician [facility] 12-05-2024 12:53-0400 Diastolic blood pressure 68 mm[Hg] No Primary Care Physician [facility] 12-05-2024 12:53-0400 Heart rate 64 /min No Primary Care Physician [facility] 12-05-2024 12:53-0400 Respiratory rate 16 /min No Primary Care Physician [facility] 12-05-2024 12:53-0400 SaO2% (BldA) [Mass fraction] 100 % No Primary Care Physician [facility] 12-05-2024 12:53-0400 Systolic blood pressure 109 mm[Hg] No Primary Care Physician [facility] 12-05-2024 10:40-0400 Body height 162.56 cm No Primary Care Physician [facility] 12-05-2024 10:40-0400 Body mass index (BMI) [Ratio] 26.4 kg/m2 No Primary Care Physician [facility] 12-05-2024 10:40-0400 Body weight 70 kg No Primary Care Physician [facility] 11-15-2024 16:10-0400 Body mass index (BMI) [Ratio] 22.14 kg/m2 Tran Gaytan [employer] Work Phone: [facility] 11-15-2024 16:10-0400 Body weight 59.42 kg Tran Gaytan [employer] Work Phone: [facility] 11-15-2024 16:10-0400 Diastolic blood pressure 76 mm[Hg] Tran Gaytan [employer] Work Phone: [facility] 11-15-2024 16:10-0400 Systolic blood pressure 108 mm[Hg] Tran Gaytan [employer] Work Phone: [facility] 10-21-2024 17:00-0400 Body mass index (BMI) [Ratio] 23.47 kg/m2 Zhanna Hazel APRN.RADIOLOGIST [employer]IEF OF [employer] IMAGING Work Phone: [facility] 10-21-2024 17:00-0400 Body temperature 97 [degF] Zhanna Hazel APRN.RADIOLOGIST [employer] Work Phone: [facility] 10-21-2024 17:00-0400 Body weight 63 kg Zhanna Hazel APRN.RADIOLOGIST [employer] Work Phone: [facility] 10-21-2024 17:00-0400 Diastolic blood pressure 68 mm[Hg] Zhanna Hazel APRN.RADIOLOGIST [employer] Work Phone: [facility] 10-21-2024 17:00-0400 Heart rate 78 /min Zhanna Hazel APRN.RADIOLOGIST [employer] Work Phone: [facility] 10-21-2024 17:00-0400 Respiratory rate 18 /min Zhanna Hazel APRN.RADIOLOGIST [employer] Work Phone: [facility] 10-21-2024 17:00-0400 SaO2% (BldA) [Mass fraction] 98 % Zhanna Hazel APRN.RADIOLOGIST [employer] Work Phone: [facility] 10-21-2024 17:00-0400 Systolic blood pressure 101 mm[Hg] Zhanna Hazel APRN.RADIOLOGIST [employer] Work Phone: [facility] 08-17-2024 01:23-0400 Body temperature 98.7 [degF] No Primary Care Physician [facility] 08-17-2024 01:23-0400 Diastolic blood pressure 71 mm[Hg] No Primary Care Physician [facility] 08-17-2024 01:23-0400 Heart rate 88 /min No Primary Care Physician [facility] 08-17-2024 01:23-0400 Respiratory rate 16 /min No Primary Care Physician [facility] 08-17-2024 01:23-0400 SaO2% (BldA) [Mass fraction] 98 % No Primary Care Physician [facility] 08-17-2024 01:23-0400 Systolic blood pressure 123 mm[Hg] No Primary Care Physician [facility] 08-16-2024 23:40-0400 Body height 162.56 cm No Primary Care Physician [facility] 08-16-2024 23:40-0400 Body mass index (BMI) [Ratio] 27.7 kg/m2 No Primary Care Physician [facility] 08-16-2024 23:40-0400 Body weight 73.3 kg No Primary Care Physician [facility] 07-28-2024 13:26-0400 Body mass index (BMI) [Ratio] 27.48 kg/m2 Tran Plotkevin [employer] Work Phone: [facility] 07-28-2024 13:26-0400 Body weight 73.75 kg Tran Plotkevin [employer] Work Phone: [facility] 07-28-2024 13:26-0400 Diastolic blood pressure 60 mm[Hg] Tran Plotts [employer] Work Phone: [facility] 07-28-2024 13:26-0400 Systolic blood pressure 118 mm[Hg] Tran Plotts [employer] Work Phone: [facility] 06-17-2024 13:21-0500 Body mass index (BMI) [Ratio] 27.04 kg/m2 Tran Plotts [employer] Work Phone: [facility] 06-17-2024 13:21-0500 Body weight 72.58 kg Tran Plotts [employer] Work Phone: [facility] 06-17-2024 13:21-0500 Diastolic blood pressure 64 mm[Hg] Tran Gaytan [employer] Work Phone: [facility] 06-17-2024 13:21-0500 Systolic blood pressure 96 mm[Hg] Tran Gaytan [employer] Work Phone: [facility] 05-27-2024 14:00-0500 SaO2% (BldA) [Mass fraction] 99 % No Primary Care Physician [facility] 05-27-2024 08:00-0500 Body temperature 97 [degF] No Primary Care Physician [facility] 05-27-2024 08:00-0500 Diastolic blood pressure 71 mm[Hg] No Primary Care Physician [facility] 05-27-2024 08:00-0500 Heart rate 82 /min No Primary Care Physician [facility] 05-27-2024 08:00-0500 Respiratory rate 16 /min No Primary Care Physician [facility] 05-27-2024 08:00-0500 Systolic blood pressure 110 mm[Hg] No Primary Care Physician [facility] 05-25-2024 11:00-0500 Body mass index (BMI) [Percentile] Per age and sex 94.1 % No Primary Care Physician [facility] 05-25-2024 11:00-0500 Body mass index (BMI) [Ratio] 30.7 kg/m2 No Primary Care Physician [facility] 05-25-2024 11:00-0500 Body weight 81.3 kg No Primary Care Physician [facility] 05-18-2024 14:35-0500 Body mass index (BMI) [Ratio] 29.91 kg/m2 Cherry Schuler MD Work Phone: [facility] 05-18-2024 14:35-0500 Body weight 80.29 kg Cherry Schuler MD Work Phone: [facility] 05-18-2024 14:35-0500 Diastolic blood pressure 70 mm[Hg] Cherry Schuler MD Work Phone: [facility] 05-18-2024 14:35-0500 Systolic blood pressure 110 mm[Hg] Cherry Schuler MD Work Phone: [facility] 05-11-2024 10:26-0500 Body mass index (BMI) [Ratio] 29.74 kg/m2 Anitra Caldwell [employer] Work Phone: [facility] 05-11-2024 10:26-0500 Body weight 79.83 kg Anitra Caldwell [employer] Work Phone: [facility] 05-11-2024 10:26-0500 Diastolic blood pressure 70 mm[Hg] Anitra Caldwell [employer] Work Phone: [facility] 05-11-2024 10:26-0500 Systolic blood pressure 112 mm[Hg] Anitra Caldwell [employer] Work Phone: [facility] 05-05-2024 14:18-0500 Body mass index (BMI) [Ratio] 29.41 kg/m2 Tran Plotts [employer] Work Phone: [facility] 05-05-2024 14:18-0500 Body weight 78.93 kg Tran Plotts [employer] Work Phone: [facility] 05-05-2024 14:18-0500 Diastolic blood pressure 70 mm[Hg] Tran Plotts [employer] Work Phone: [facility] 05-05-2024 14:18-0500 Systolic blood pressure 102 mm[Hg] Tran Plotts [employer] Work Phone: [facility] 04-21-2024 14:04-0500 Body mass index (BMI) [Ratio] 28.22 kg/m2 Tran Plotts [employer] Work Phone: [facility] 04-21-2024 14:04-0500 Body weight 75.75 kg Tran Plotts [employer] Work Phone: [facility] 04-21-2024 14:04-0500 Diastolic blood pressure 68 mm[Hg] Tran Plotts [employer] Work Phone: [facility] 04-21-2024 14:04-0500 Systolic blood pressure 106 mm[Hg] Tran Plotts [employer] Work Phone: [facility] 03-29-2024 15:30-0500 Body mass index (BMI) [Ratio] 27.72 kg/m2 Tran Plotts [employer] Work Phone: [facility] 03-29-2024 15:30-0500 Body weight 74.39 kg Tran Plotts [employer] Work Phone: [facility] 03-29-2024 15:30-0500 Diastolic blood pressure 70 mm[Hg] Tran Plotts [employer] Work Phone: [facility] 03-29-2024 15:30-0500 Systolic blood pressure 106 mm[Hg] Tran Plotts [employer] Work Phone: [facility] 03-18-2024 12:42-0400 Body mass index (BMI) [Ratio] 27.31 kg/m2 Neeta Athy PA-C Work Phone: [facility] 03-18-2024 12:42-0400 Body temperature 96.91 [degF] Neeta Athy PA-C Work Phone: [facility] 03-18-2024 12:42-0400 Body weight 73.3 kg Neeta Athy PA-C Work Phone: [facility] 03-18-2024 12:42-0400 Diastolic blood pressure 69 mm[Hg] Neeta Athy PA-C Work Phone: [facility] 03-18-2024 12:42-0400 Heart rate 97 /min Neeta Athy PA-C Work Phone: [facility] 03-18-2024 12:42-0400 Respiratory rate 20 /min Neeta Athy PA-C Work Phone: [facility] 03-18-2024 12:42-0400 SaO2% (BldA) [Mass fraction] 99 % Neeta WEAVER-Severiano Work Phone: [facility] 03-18-2024 12:42-0400 Systolic blood pressure 107 mm[Hg] Neeta Rey PA-C Work Phone: [facility] 03-16-2024 15:23-0400 Body mass index (BMI) [Ratio] 27.21 kg/m2 Anitra Caldwell [employer] Work Phone: [facility] 03-16-2024 15:23-0400 Body weight 73.03 kg Anitra Caldwell [employer] Work Phone: [facility] 03-16-2024 15:23-0400 Diastolic blood pressure 68 mm[Hg] Anitra Caldwell [employer] Work Phone: [facility] 03-16-2024 15:23-0400 Systolic blood pressure 118 mm[Hg] Anitra Caldwell [employer] Work Phone: [facility] 02-25-2024 14:23-0400 Body mass index (BMI) [Ratio] 26.63 kg/m2 Tran Gaytan [employer] Work Phone: [facility] 02-25-2024 14:23-0400 Body weight 71.49 kg Tran Gaytan [employer] Work Phone: [facility] 02-25-2024 14:23-0400 Diastolic blood pressure 68 mm[Hg] Tran Gaytan [employer] Work Phone: [facility] 02-25-2024 14:23-0400 Systolic blood pressure 110 mm[Hg] Tran Gaytan [employer] Work Phone: [facility] 01-23-2024 10:42-0400 Body mass index (BMI) [Ratio] 24.67 kg/m2 Anitra Caldwell [employer] Work Phone: [facility] 01-23-2024 10:42-0400 Body weight 66.22 kg Anitra Caldwell [employer] Work Phone: [facility] 01-23-2024 10:42-0400 Diastolic blood pressure 64 mm[Hg] Anitra Caldwell [employer] Work Phone: [facility] 01-23-2024 10:42-0400 Systolic blood pressure 114 mm[Hg] Anitra Caldwell [employer] Work Phone: [facility] 12-23-2023 10:21-0400 Body mass index (BMI) [Ratio] 23.66 kg/m2 Anitra Caldwell [employer] Work Phone: [facility] 12-23-2023 10:21-0400 Body weight 63.5 kg Anitra Caldwell [employer] Work Phone: [facility] 12-23-2023 10:21-0400 Diastolic blood pressure 68 mm[Hg] Anitra Caldwell [employer] Work Phone: [facility] 12-23-2023 10:21-0400 Systolic blood pressure 100 mm[Hg] Anitra Caldwell [employer] Work Phone: [facility] 12-12-2023 14:50-0400 Body mass index (BMI) [Ratio] 23.1 kg/m2 Joseph Hsu SH[employer] LAB[employer]ER.RADIOLOGIST [employer] Work Phone: [facility] 12-12-2023 14:50-0400 Body temperature 98.01 [degF] Joseph Hsu SH[employer] LAB[employer]ER.RADIOLOGIST [employer] Work Phone: [facility] 12-12-2023 14:50-0400 Body weight 62 kg Joseph Hsu SH[employer] LAB[employer]ER.RADIOLOGIST [employer] Work Phone: [facility] 12-12-2023 14:50-0400 Diastolic blood pressure 77 mm[Hg] Joseph Hsu SHOP LABORER.RADIOLOGIST [employer] Work Phone: [facility] 12-12-2023 14:50-0400 Heart rate 102 /min Joseph Hsu [employer] LAB[employer]ER.RADIOLOGIST [employer] Work Phone: [facility] 12-12-2023 14:50-0400 Respiratory rate 18 /min Joseph Shadi [employer] LAB[employer]ER.RADIOLOGIST [employer] Work Phone: [facility] 12-12-2023 14:50-0400 SaO2% (BldA) [Mass fraction] 99 % Joseph Shadi [employer]ER.RADIOLOGIST [employer] Work Phone: [facility] 12-12-2023 14:50-0400 Systolic blood pressure 116 mm[Hg] Joseph Hsu SHOP LABORER.RADIOLOGIST CHIEF OF BREAST IMAGING Work Phone: [facility] 11-28-2023 14:18-0400 Body mass index (BMI) [Ratio] 22.71 kg/m2 Anitrasoren Caldwell SHOP LABORER.CNM Work Phone: [facility] 11-28-2023 14:18-0400 Body weight 60.96 kg Anitra Jaquelin SHOP LABORER.CNM Work Phone: [facility] 11-28-2023 14:18-0400 Diastolic blood pressure 58 mm[Hg] Anitra Caldwell SHOP LABORER.CNM Work Phone: [facility] 11-28-2023 14:18-0400 Systolic blood pressure 98 mm[Hg] Anitra Caldwell SHOP LABORER.CNM Work Phone: [facility] 11-14-2023 13:06-0400 Body height 163.8 cm Anitra Caldwell SHOP LABORER.CNM Work Phone: [facility] 11-14-2023 13:06-0400 Body mass index (BMI) [Ratio] 22.81 kg/m2 Anitra Caldwell SHOP LABORER.CNM Work Phone: [facility] 11-14-2023 13:06-0400 Body weight 61.24 kg Anitra Caldwell SHOP LABORER.CNM Work Phone: [facility] 11-14-2023 13:06-0400 Diastolic blood pressure 60 mm[Hg] Anitra Caldwell SHOP LABORER.CNM Work Phone: [facility] 11-14-2023 13:06-0400 Systolic blood pressure 98 mm[Hg] Anitrasoren Caldwell SHOP LABORER.CNM Work Phone: [facility] 10-25-2023 12:43-0400 Body temperature 97.7 [degF] [facility] SHOP LABORER.RADIOLOGIST CHIEF OF BREAST IMAGING Work Phone: [facility] 10-25-2023 12:43-0400 Body weight 59.5 kg [facility] SHOP LABORER.RADIOLOGIST CHIEF OF BREAST IMAGING Work Phone: [facility] 10-25-2023 12:43-0400 Diastolic blood pressure 72 mm[Hg] [facility] SHOP LABORER.RADIOLOGIST CHIEF OF BREAST IMAGING Work Phone: [facility] 10-25-2023 12:43-0400 Heart rate 98 /min Floyd Marileephyllis SHOP LABORER.RADIOLOGIST CHIEF OF BREAST IMAGING Work Phone: [facility] 10-25-2023 12:43-0400 Respiratory rate 16 /min Floyd Marileephyllis SHOP LABORER.RADIOLOGIST CHIEF OF BREAST IMAGING Work Phone: [facility] 10-25-2023 12:43-0400 SaO2% (BldA) [Mass fraction] 99 % Floyd [facility] SHOP LABORER.RADIOLOGIST CHIEF OF BREAST IMAGING Work Phone: [facility] 10-25-2023 12:43-0400 Systolic blood pressure 128 mm[Hg] Floyd Estrellaphyllis SHOP LABORER.RADIOLOGIST CHIEF OF BREAST IMAGING Work Phone: [facility] 08-27-2023 16:32-0400 Body temperature 98.29 [degF] Zhanna Hazel SHOP LABORER.RADIOLOGIST CHIEF OF BREAST IMAGING Work Phone: [facility] 08-27-2023 16:32-0400 Body weight 60.6 kg Zhanna Hazel SHOP LABORER.RADIOLOGIST CHIEF OF BREAST IMAGING Work Phone: [facility] 08-27-2023 16:32-0400 Diastolic blood pressure 64 mm[Hg] Zhanna Hazel SHOP LABORER.RADIOLOGIST CHIEF OF BREAST IMAGING Work Phone: [facility] 08-27-2023 16:32-0400 Heart rate 92 /min Zhanna Hazel SHOP LABORER.RADIOLOGIST CHIEF OF BREAST IMAGING Work Phone: [facility] 08-27-2023 16:32-0400 Respiratory rate 18 /min Zhanna Hazel APRN.RADIOLOGIST CHIEF OF BREAST IMAGING Work Phone: [facility] 08-27-2023 16:32-0400 SaO2% (BldA) [Mass fraction] 97 % Zhanna Hazel APRN.RADIOLOGIST CHIEF OF BREAST IMAGING Work Phone: [facility] 08-27-2023 16:32-0400 Systolic blood pressure 106 mm[Hg] Zhanna Hazel APRN.RADIOLOGIST CHIEF OF BREAST IMAGING Work Phone: [facility] 06-03-2023 06:20-0500 Heart rate 82 /min [facility] 06-03-2023 06:20-0500 Respiratory rate 16 /min [facility] 06-03-2023 06:20-0500 SaO2% (BldA) [Mass fraction] 99 % [facility] 06-03-2023 05:00-0500 Diastolic blood pressure 70 mm[Hg] [facility] 06-03-2023 05:00-0500 Systolic blood pressure 99 mm[Hg] [facility] 06-03-2023 00:42-0500 Body height 160.02 cm [facility] 06-03-2023 00:42-0500 Body mass index (BMI) [Percentile] Per age and sex 82 % [facility] 06-03-2023 00:42-0500 Body mass index (BMI) [Ratio] 25.3 kg/m2 [facility] 06-03-2023 00:42-0500 Body temperature 97.7 [degF] [facility] 06-03-2023 00:42-0500 Body weight 64.9 kg [facility] 04-02-2023 14:35-0500 Body temperature 97.5 [degF] John Crowe MD Work Phone: [facility] 04-02-2023 14:35-0500 Body weight 63.41 kg John Crowe MD Work Phone: [facility] 04-02-2023 14:35-0500 Diastolic blood pressure 74 mm[Hg] John Crowe MD Work Phone: [facility] 04-02-2023 14:35-0500 Heart rate 96 /min John Crowe MD Work Phone: [facility] 04-02-2023 14:35-0500 Respiratory rate 21 /min John Crowe MD Work Phone: [facility] 04-02-2023 14:35-0500 SaO2% (BldA) [Mass fraction] 100 % John Crowe MD Work Phone: [facility] 04-02-2023 14:35-0500 Systolic blood pressure 120 mm[Hg] John Crowe MD Work Phone: [facility] 01-22-2023 18:15-0400 Body temperature 98.29 [degF] Floyd Marileelephyllis SHOP LABORER.RADIOLOGIST CHIEF OF BREAST IMAGING Work Phone: [facility] 01-22-2023 18:15-0400 Body weight 63.41 kg Floyd Aspen SHOP LABORER.RADIOLOGIST CHIEF OF BREAST IMAGING Work Phone: [facility] 01-22-2023 18:15-0400 Diastolic blood pressure 80 mm[Hg] Floyd Pendlephyllis SHOP LABORER.RADIOLOGIST CHIEF OF BREAST IMAGING Work Phone: [facility] 01-22-2023 18:15-0400 Heart rate 71 /min Floyd Pendlephyllis SHOP LABORER.RADIOLOGIST CHIEF OF BREAST IMAGING Work Phone: [facility] 01-22-2023 18:15-0400 Respiratory rate 18 /min Flyod Pendlephyllis SHOP LABORER.RADIOLOGIST CHIEF OF BREAST IMAGING Work Phone: [facility] 01-22-2023 18:15-0400 SaO2% (BldA) [Mass fraction] 97 % Floyd Pendlephyllis SHOP LABORER.RADIOLOGIST CHIEF OF BREAST IMAGING Work Phone: [facility] 01-22-2023 18:15-0400 Systolic blood pressure 110 mm[Hg] Floyd Huntlephyllis SHOP LABORER.RADIOLOGIST CHIEF OF BREAST IMAGING Work Phone: [facility] 11-21-2022 13:30-0400 Body temperature 98.71 [degF] Floyd Pendlephyllis SHOP LABORER.RADIOLOGIST CHIEF OF BREAST IMAGING Work Phone: [facility] 11-21-2022 13:30-0400 Body weight 61.78 kg Floyd Louise SHOP LABORER.RADIOLOGIST CHIEF OF BREAST IMAGING Work Phone: [facility] 11-21-2022 13:30-0400 Diastolic blood pressure 62 mm[Hg] Floyd Louise SHOP LABORER.RADIOLOGIST CHIEF OF BREAST IMAGING Work Phone: [facility] 11-21-2022 13:30-0400 Heart rate 89 /min Floyd Louise SHOP LABORER.RADIOLOGIST CHIEF OF BREAST IMAGING Work Phone: [facility] 11-21-2022 13:30-0400 Respiratory rate 18 /min Floyd Louise SHOP LABORER.RADIOLOGIST CHIEF OF BREAST IMAGING Work Phone: [facility] 11-21-2022 13:30-0400 SaO2% (BldA) [Mass fraction] 98 % Floyd Louise SHOP LABORER.RADIOLOGIST CHIEF OF BREAST IMAGING Work Phone: [facility] 11-21-2022 13:30-0400 Systolic blood pressure 110 mm[Hg] Floyd Louise SHOP LABORER.RADIOLOGIST CHIEF OF BREAST IMAGING Work Phone: [facility] 04-08-2022 17:25-0500 Body temperature 98.8 [degF] Zhanna Hazel SHOP LABORER.RADIOLOGIST CHIEF OF BREAST IMAGING Work Phone: [facility] 04-08-2022 17:25-0500 Body weight 62.41 kg Zhanna Hazel SHOP LABORER.RADIOLOGIST CHIEF OF BREAST IMAGING Work Phone: [facility] 04-08-2022 17:25-0500 Diastolic blood pressure 76 mm[Hg] Zhanna Hazel SHOP LABORER.RADIOLOGIST CHIEF OF BREAST IMAGING Work Phone: [facility] 04-08-2022 17:25-0500 Heart rate 94 /min Zhanna Hazel SHOP LABORER.RADIOLOGIST CHIEF OF BREAST IMAGING Work Phone: [facility] 04-08-2022 17:25-0500 Respiratory rate 18 /min Zhanna Hazel SHOP LABORER.RADIOLOGIST CHIEF OF BREAST IMAGING Work Phone: [facility] 04-08-2022 17:25-0500 SaO2% (BldA) [Mass fraction] 99 % Zhanna Hazel SHOP LABORER.RADIOLOGIST CHIEF OF BREAST IMAGING Work Phone: [facility] 04-08-2022 17:25-0500 Systolic blood pressure 122 mm[Hg] Zhanna Hazel APRN.RADIOLOGIST CHIEF OF BREAST IMAGING Work Phone: [facility] 01-01-2022 13:38-0400 Body height 160 cm Pacc 2 Work Phone: [facility] 01-01-2022 13:38-0400 Body mass index (BMI) [Percentile] Per age and sex 89.08 % Pacc 2 Work Phone: [facility] 01-01-2022 13:38-0400 Body weight 68.04 kg Pacc 2 Work Phone: [facility] 01-01-2022 13:38-0400 Respiratory rate 16 /min Pacc 2 Work Phone: [facility] 03-20-2017 12:49-0400 BMI (Body Mass Index) 19.08 kg/m2 [facility] Work Phone: 03-20-2017 12:49-0400 Body Temperature 98.8 [degF] [facility] Work Phone: 03-20-2017 12:49-0400 BP Diastolic 72 mm[Hg] [facility] Work Phone: 03-20-2017 12:49-0400 BP Systolic 108 mm[Hg] [facility] Work Phone: 03-20-2017 12:49-0400 Height 154.94 cm [facility] Work Phone: 03-20-2017 12:49-0400 Pulse (Heart Rate) 97 /min [facility] Work Phone: 03-20-2017 12:49-0400 Respiratory Rate 14 /min [facility] Work Phone: 03-20-2017 12:49-0400 Weight 45.81 kg [facility] Work Phone: Encounters Encounter Date Encounter Type Care Provider Facility Start: 12-08-2024 Evaluation and management of inpatient Dr. Gilbert Whittington MD -[facility] 3 Work Phone: Start: 12-07-2024 End: 12-07-2024 Emergency department patient visit No Primary Care Physician -Emergency Department Work Phone: Start: 12-05-2024 End: 12-05-2024 ambulatory Samara Clifford RN [facility] Comment on above: Vaginal Bleeding Start: 12-05-2024 End: 12-05-2024 Emergency department patient visit No Primary Care Physician -Emergency Department Work Phone: Start: 11-15-2024 End: 11-15-2024 Patient encounter procedure Tran Gaytan SHOP LABORER.CNM Work Phone: OB/Gynecology Comment on above: Encounter for IUD in sertion (Primary Dx) Start: 11-15-2024 End: 11-15-2024 ambulatory TRAN GAYTAN Facility:[facility] Start: 11-14-2024 End: 11-15-2024 Refill Anitra Caldwell SHOP LABORER.CNM Work Phone: OB/Gynecology Comment on above: Refill Request Start: 10-21-2024 End: 10-21-2024 Patient encounter procedure Zhanna Hazel SHOP LABORER.RADIOLOGIST CHIEF OF BREAST IMAGING Work Phone: [facility] Comment on above: Acute cough (Primary Dx); Rhinosinusitis Start: 10-21-2024 End: 10-21-2024 Subsequent hospital visit by physician Xr [facility] Work Phone: Radiology Comment on above: Acute cough [R05.1] Start: 10-21-2024 End: 10-21-2024 ambulatory ZHANNA HAZEL Facility:[facility] Start: 09-17-2024 End: 09-17-2024 ambulatory NATALIIA VAIL Facility:[facility] Start: 08-16-2024 End: 08-17-2024 Emergency department patient visit No Primary Care Physician -Emergency Department Work Phone: Start: 08-02-2024 End: 08-02-2024 Refill Tran Gaytan SHOP LABORER.CNM Work Phone: OB/Gynecology Comment on above: Refill Request Start: 07-28-2024 End: 07-28-2024 [facility] Facility:[facility] Start: 07-28-2024 End: 07-28-2024 Patient encounter procedure Tran Gaytan SHOP LABORER.CNM Work Phone: OB/Gynecology Comment on above: care and examination (Primary Dx); Encounter for IUD insertion; Post depression; Generalized anxiety disorder Start: 06-25-2024 End: 06-25-2024 [facility] Facility:[facility] Start: 06-25-2024 End: 06-25-2024 Patient encounter procedure Tran Gaytan SHOP LABORER.CNM Work Phone: OB/Gynecology Comment on above: Post depressi on (Primary Dx); Generalized anxiety disorder Start: 06-24-2024 End: 06-24-2024 Orders Only Nataliia PAUL Work Phone: Psychiatry Comment on above: Post depressi on (Primary Dx) Appointment Start: 06-17-2024 End: 06-17-2024 [facility] Facility:[facility] Start: 06-17-2024 End: 06-17-2024 Patient encounter procedure Tran Gaytan SHOP LABORER.CNM Work Phone: OB/Gynecology Comment on above: 2 weeks f ollow-up (Primary Dx); Lactating mother; First-degree perineal laceration in ; Generalized anxiety disorder Start: 05-26-2024 End: 05-26-2024 ambulatory Cherry Schuler MD Work Phone: OB/Gynecology Comment on above: Ob Delivery Note Start: 05-25-2024 End: 05-25-2024 Telephone encounter Cherry Schuler MD Work Phone: OB/Gynecology Comment on above: Care Start: 05-25-2024 End: 05-27-2024 Evaluation and management of inpatient Dr Cherry Simons [facility] Work Phone: Start: 05-18-2024 End: 05-18-2024 Patient encounter procedure Cherry Schuler MD Work Phone: OB/Gynecology Comment on above: Encounter for superv ision of normal first in third trimester (Primary Dx); Uterine size-date discrepancy in third trimester; Need for RSV vaccination; 36 weeks gestation of Start: 05-18-2024 End: 05-26-2024 ambulatory Anitra Caldwell APRN.CNM Work Phone: OB/Gynecology Comment on above: Remaining centering dates Start: 05-18-2024 End: 05-26-2024 E-mail encounter from caregiver Anitra Caldwell GIL Work Phone: OB/Gynecology Start: 05-11-2024 End: 05-11-2024 ambulatory ANITRA CALDWELL Facility:[facility] Start: 05-11-2024 End: 05-11-2024 Patient encounter procedure Anitra Caldwell APRN.CNM Work Phone: OB/Gynecology Comment on above: Supervision of dixie l first teen in second trimester (Primary Dx); Heartburn during in third trimester; Rubella non-immune status, antepartum; History of depression; Uterine size-date discrepancy in third trimester Start: 05-05-2024 End: 05-05-2024 Patient encounter procedure Tran Gaytan APRN.CNM Work Phone: OB/Gynecology Comment on above: 34 weeks gestation o f (Primary Dx); Encounter for supervision of normal first in third trimester; Rubella non-immune status, antepartum; Heartburn during in third trimester Start: 05-05-2024 End: 05-05-2024 [facility] Facility:[facility] Start: 04-22-2024 End: 04-22-2024 Telephone encounter Amelia Armstrong RN Obstetrics/Gynecolog y Comment on above: Hand Iii Cutter - O ther (PRAF) Start: 04-21-2024 End: 04-21-2024 ambulatory RUST:[facility] Start: 04-21-2024 End: 04-21-2024 Patient encounter procedure Tran Gaytan GIL Work Phone: OB/Gynecology Comment on above: 32 weeks gestation o f (Primary Dx); Encounter for supervision of normal first in third trimester; Low-lying placenta; Heartburn during in third trimester Encounter for ultras ound to check growth (Primary Dx); Suspected placental problem not found; 32 weeks gestation of Start: 03-29-2024 End: 03-29-2024 [facility] Facility:[facility] Start: 03-29-2024 End: 03-29-2024 Patient encounter procedure Tran Lucila GIL Work Phone: OB/Gynecology Comment on above: 29 weeks gestation o f (Primary Dx); Encounter for supervision of normal first in third trimester; Rubella non-immune status, antepartum; Low-lying placenta Start: 03-25-2024 End: 03-25-2024 Telephone encounter Robson Romero APRN.CNP Work Phone: OB/Gynecology Comment on above: Results Start: 03-25-2024 End: 03-25-2024 ambulatory ROBSON ROMERO Facility:[facility] Start: 03-21-2024 End: 03-21-2024 Emergency department patient visit No Primary Care Physician Facility:[facility] Start: 03-19-2024 End: 03-19-2024 Telephone encounter Anitra Caldwell APRN.CNM Work Phone: OB/Gynecology Start: 03-18-2024 End: 03-18-2024 Telephone encounter Robson Romero APRN.RADIOLOGIST CHIEF OF BREAST IMAGING Work Phone: OB/Gynecology Comment on above: Results Start: 03-18-2024 End: 03-18-2024 ambulatory [facility] Facility:[facility] Start: 03-18-2024 End: 03-18-2024 ambulatory ANITRA CALDWELL Facility:[facility] Start: 03-18-2024 End: 03-18-2024 Patient encounter procedure Neeta Rey PA-C Work Phone: [facility] Comment on above: Viral URI (Primary D x) Start: 03-16-2024 End: 03-16-2024 ambulatory ANITRA CALDWELL Facility:[facility] Start: 03-16-2024 End: 03-16-2024 Patient encounter procedure Anitra Caldwell APRN.CNM Work Phone: OB/Gynecology Comment on above: Supervision of dixie l first teen in second trimester (Primary Dx); Need for vaccination; Heartburn during in third trimester; Low-lying placenta; Rubella non-immune status, antepartum; Generalized anxiety disorder; History of depression Start: 03-13-2024 End: 03-13-2024 [facility] Facility:[facility] Start: 02-25-2024 End: 02-25-2024 Patient encounter procedure Tran Gaytan APRN.CNM Work Phone: OB/Gynecology Comment on above: 24 weeks gestation o f (Primary Dx); Supervision of normal first teen in second trimester; Generalized anxiety disorder; Rubella non-immune status, antepartum; History of depression; Encounter for care in first trimester of first ; Heartburn during in second trimester Start: 02-25-2024 End: 02-25-2024 [facility] Facility:[facility] Start: 02-25-2024 End: 02-26-2024 Telephone encounter Tran Gaytan APRN.CNM Work Phone: OB/Gynecology Comment on above: Centering Start: 02-12-2024 End: 02-12-2024 Refill Anitra Caldwell APRN.CNM Work Phone: OB/Gynecology Comment on above: Refill Request Start: 01-26-2024 End: 01-27-2024 Telephone encounter Amelia Armstrong RN Maternal [facility] ine Comment on above: Hand Iii Cutter - O ther (PRAF) ULTRASOUND Start: 01-23-2024 End: 01-23-2024 ambulatory ANITRA CALDWELL Facility:[facility] Start: 01-23-2024 End: 01-23-2024 Patient encounter procedure [...] 01-21-2024 End: 01-21-2024 E-mail encounter from caregiver Anitra Caldwell APRN.CNM Work Phone: OB/Gynecology Start: 12-23-2023 End: 12-23-2023 ambulatory ANITRA CALDWELL Facility:[facility] Start: 12-23-2023 End: 12-23-2023 Patient encounter procedure Anitra Caldwell APRN.ELIAZAR Work Phone: OB/Gynecology Comment on above: Supervision of dixie bernard first teen in second trimester (Primary Dx); 15 weeks gestation of ; Nausea and vomiting during ; Generalized anxiety disorder; History of depression; Rubella non-immune status, antepartum Start: 12-12-2023 End: 12-12-2023 ambulatory ANITRA CALDWELL Facility:[facility] Start: 12-12-2023 End: 12-12-2023 Patient encounter procedure Joseph Hsu APRN.RADIOLOGIST CHIEF OF BREAST IMAGING Work Phone: [facility] Comment on above: Nausea (Primary Dx) Start: 12-09-2023 Telephone encounter Anitra Co sta SHOP LABORER.CNM Work Phone: OB/Gynecology Comment on above: Nausea & Vomiting Start: 12-05-2023 Telephone encounter Anitra Co sta SHOP LABORER.CNM Work Phone: OB/Gynecology Start: 11-28-2023 Telephone encounter Anitra Co sta SHOP LABORER.CNM Work Phone: OB/Gynecology Start: 11-28-2023 End: 11-28-2023 Patient encounter procedure [employer] [facility] Work Phone: OB/Gynecology Comment on above: [...] End: 11-05-2023 Patient encounter procedure Joseph Hsu APRN.RADIOLOGIST CHIEF OF BREAST IMAGING Work Phone: [facility] Comment on above: Dizziness (Primary D x); Nausea and vomiting, unspecified vomiting type Start: 10-25-2023 End: 10-25-2023 Office outpatient visit 15 minutes Floyd Louise APRN.RADIOLOGIST CHIEF OF BREAST IMAGING Work Phone: [facility] Comment on above: Nausea (Primary Dx) Start: 09-02-2023 End: 09-02-2023 Admission to same day surgery center Raysa Sabrina [facility] Work Phone: [facility] Comment on above: S/P knee surgery (Pr imary Dx) Start: 09-02-2023 End: 09-02-2023 ambulatory Raysa Bennett [employer]ER Work Phone: [facility] Start: 08-29-2023 End: 08-29-2023 Subsequent hospital visit by physician [facility] (I-Stat/1.5t) Work Phone: Radiology Comment on above: S/P knee surgery [Z9 8.890] Start: 08-27-2023 End: 08-27-2023 Patient encounter procedure Zhanna Ilir CIFUENTES.RADIOLOGIST CHIEF OF BREAST IMAGING Work Phone: [facility] Comment on above: Nausea (Primary Dx) Start: 08-26-2023 End: 08-26-2023 Admission to same day surgery center Zain Kearney PT Work Phone: [facility] Comment on above: S/P knee surgery (Pr imary Dx) Start: 08-26-2023 End: 08-26-2023 ambulatory Zain Kearney PT Work Phone: [facility] Start: 08-19-2023 End: 08-19-2023 Admission to same day surgery center Zain Kearney PT Work Phone: [facility] Comment on above: S/P knee surgery Start: 08-19-2023 End: 08-19-2023 ambulatory Zain Kearney PT Work Phone: [facility] Start: 07-31-2023 End: 07-31-2023 Patient encounter procedure Mayda Solares DO Work Phone: Orthopaedics Comment on above: S/P knee surgery (Pr imary Dx); Loose body in knee, left knee Start: 07-31-2023 End: 07-31-2023 Subsequent hospital visit by physician [facility]n [facility] Work Phone: Radiology Comment on above: Chronic pain of left knee [M25.562, G89.29] Start: 07-24-2023 Orders Only Mayda Solares DO Work Phone: Orthopaedics Comment on above: Chronic pain of left knee (Primary Dx) Start: 06-03-2023 End: 06-03-2023 Emergency department patient visit [facility] Work Phone: Start: 04-18-2023 Emergency department patient visit Facility:[facility] Start: 04-02-2023 End: 04-02-2023 Patient encounter procedure John Crowe MD Work Phone: [facility] Comment on above: Sore throat (Primary Dx) Start: 02-18-2023 End: 02-18-2023 Subsequent hospital visit by physician [facility]n [facility] Work Phone: Radiology Comment on above: Pain [R52] Start: 01-22-2023 End: 01-22-2023 Office outpatient visit 25 minutes Floyd Louise SHOP LABORER.RADIOLOGIST CHIEF OF BREAST IMAGING Work Phone: [facility] Comment on above: Rash (Primary Dx) Start: 11-21-2022 End: 11-21-2022 Office outpatient visit 15 minutes Floyd Louise SHOP LABORER.RADIOLOGIST CHIEF OF BREAST IMAGING Work Phone: [facility] Comment on above: Sore throat (Primary Dx); URI, acute Start: 08-02-2022 End: 08-02-2022 Patient encounter procedure Gretchen Brower OD Work Phone: Ophthalmology Comment on above: Myopia, bilateral (P rimary Dx) Start: 04-08-2022 End: 04-08-2022 Patient encounter procedure Zhanna Hazel APRN.RADIOLOGIST CHIEF OF BREAST IMAGING Work Phone: [facility] Comment on above: Cat bite, initial en counter (Primary Dx) Start: 03-14-2022 End: 03-14-2022 Patient encounter procedure Mayda Solares DO Work Phone: Orthopaedics Comment on above: S/P knee surgery (Pr imary Dx) Start: 03-06-2022 End: 03-06-2022 ambulatory June Staton PT [facility] Start: 03-06-2022 End: 03-06-2022 Follow-up encounter June Lemon PT [facility] Comment on above: Patellar dislocation , left, subsequent encounter (Primary Dx); S/P orthopedic surgery, follow-up exam Start: 02-27-2022 End: 02-27-2022 ambulatory June Lemon PT [facility] Start: 02-27-2022 End: 02-27-2022 Follow-up encounter June Lemon PT [facility] Comment on above: Patellar dislocation , left, subsequent encounter (Primary Dx); S/P orthopedic surgery, follow-up exam Start: 02-25-2022 End: 02-25-2022 ambulatory Raysa Bennett [employer] [facility] Phone[facility] Start: 02-25-2022 End: 02-25-2022 Follow-up encounter Raysa Bennett [employer] Work Phone: [facility] Comment on above: Patellar dislocation , left, subsequent encounter (Primary Dx); S/P orthopedic surgery, follow-up exam Start: 02-22-2022 End: 02-22-2022 ambulatory June Lemon PT [facility] Start: 02-22-2022 End: 02-22-2022 Follow-up encounter June Lemon PT [facility] Comment on above: Patellar dislocation , left, subsequent encounter (Primary Dx); S/P orthopedic surgery, follow-up exam Start: 02-04-2022 End: 02-04-2022 ambulatory June Lemon PT [facility] [place] Start: 02-04-2022 End: 02-04-2022 Follow-up encounter June Lemon PT [facility] Comment on above: Patellar [...] 01-01-2022 End: 01-01-2022 [facility] Work Phone: [facility] Start: 01-01-2022 End: 01-01-2022 ambulatory [facility] 2 Work Phone: Pre Anesthesia Comment on above: Pre-op evaluation (P rimary Dx); Dislocation of left patella, subsequent encounter Start: 01-01-2022 End: 01-01-2022 Preprocedural examination done [facility] 2 Work Phone: Pre Anesthesia Start: 12-19-2021 Patient encounter status Manny Arteaga MD Work Phone: [facility] [employer] [facility] [employer] Start: 12-19-2021 Telephone encounter Manny willson MD Work Phone: [employer] [facility] [employer] Comment on above: Schedule Surgery Start: 12-10-2021 End: 12-10-2021 ambulatory Manny Arteaga MD Work Phone: [facility] Comment on above: Chronic pain of left knee (Primary Dx); Patellar instability of left knee; 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; Loose body in knee, left knee; Dislocation of left patella, subsequent encounter Start: 12-10-2021 End: 12-10-2021 Telemedicine consultation with patient Manny Arteaga MD Work Phone: [facility] Start: 12-06-2021 Telephone encounter Mayda Solares DO [...] with patient Mayda Solares DO Work Phone: [facility] Start: 10-16-2021 End: 10-16-2021 Subsequent hospital visit by physician [facility] (I-Stat/1.5t) Work Phone: Radiology Comment on above: Chronic pain of left knee [M25.562, G89.29] Start: 09-27-2021 Telephone encounter Mayda Solares DO Work Phone: Orthopaedics Comment on above: [facility] Appt. 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 Start: 09-26-2021 End: 09-26-2021 Subsequent hospital visit by physician [facility] Work Phone: Radiology Comment on above: Chronic pain of left knee [M25.562, G89.29] Procedures Date Procedure Procedure Detail Performing Clinician Start: 12-08-2024 Plain x-ray of hand No Primary Care Physician Start: 12-08-2024 Estimated creatinine clearance No Primary Care Physician Start: 10-21-2024 Radiologic exam ches t 2 views Zhanna Hazel APRN.CNP Work Phone: Start: 08-17-2024 Urnls dip stick/tabl et reagent auto microscopy No Primary Care Physician Start: 08-17-2024 Estimated creatinine clearance No Primary Care Physician Start: 08-17-2024 Computed tomography of abdomen and pelvis with intravenous contrast No Primary Care Physician Start: 05-18-2024 RSV VACCINE, BIVALEN T (ABRYSVO) Cherry Neyhart Schuler MD Work Phone: Start: 05-18-2024 Urnls dip stick/tabl et rgnt non-auto w/o micrscp Cherry Schuler MD Work Phone: Start: 05-11-2024 Urnls dip stick/tabl et rgnt non-auto w/o micrscp Anitra Caldwell [employer]ER.CNM Work Phone: Start: 04-21-2024 Us preg uterus after 1st trimest 1/ gestation Anitra Caldwell [employer].CNM Work Phone: Start: 03-18-2024 STREP A MOLECULAR (POC) Neeta Rey PA-C Work Phone: Start: 01-23-2024 Us preg uterus after 1st trimest 1/ gestation Anitra Caldwell [employer] LAB[employer].CNM Work Phone: Start: 11-28-2023 Us nuchal translucency 1st gestation Anitra Caldwell [employer] LAB[employer]ER.CNM Work Phone: Start: 11-14-2023 BACTERIAL VAGINOSIS NAAT Anitra Caldwell [employer] LABORER.CNM Work Phone: Start: 11-14-2023 Iadna chlamydia trac homatis amplified probe tq Anitra Caldwell [employer] LAB[employer]ER.CNM Work Phone: Start: 11-14-2023 Us uterus l imited 1/> fetuses Anitra Caldwell [employer] LAB[employer].CNM Work Phone: Start: 08-29-2023 Mri any jt [...] foot complete minimum 3 views Zhanna Hazel APRN.RADIOLOGIST [employer] Work Phone: Start: 11-21-2022 STREP A MOLECULAR (POC) Zhanna Hazel APRN.RADIOLOGIST [employer] Work Phone: Start: 10-16-2021 Mri any jt lower ext rem w/o contrast matrl Mayda Shaikh Sujatha DO Work Phone: Start: 09-26-2021 Radiologic exam knee complete 4/more views Mayda Islasemerychloe DO Work Phone: Start: 08-12-2016 End: 08-12-2016 Iaadiadoo streptococcus group a Luis WEAVER Work Phone: History of operative procedure on knee S/P knee surgery Mayda Islasmarco DO Work Phone: History of operative procedure on knee S/P knee surgery Mayda Islasmarco DO Work Phone: History of operative procedure on knee S/P knee surgery Mayda Islasemerychloe DO Work Phone: History of operative procedure on knee S/P knee surgery Zain Kearney PT Work Phone: History of operative procedure on knee S/P knee surgery Mri (I-Stat/1.5t) Work Phone: History of operative procedure on knee S/P knee surgery Raysa Bennett [employer]ER Work Phone: Plan of Treatment Date Care Activity Detail Author Start: 08-01-2025 End: 08-01-2025 Patient encounter procedure 08/01/2025 11:30 AM EDT Office Visit OB/Gynecology [address] [place] [phone] Tran Gaytan APRN.[facility] [address] [place] [phone] Annual OB/Gynecology Comment on above: Annual Start: 01-17-2025 Influenza vaccination [facility] Start: 12-13-2024 End: 12-13-2024 Patient encounter procedure 12/13/2024 1:45 PM EDT Office Visit OB/Gynecology [address] [place] [address] Tran Gaytan APRN.CN [address] [place] [address] (Fax) IUD check up OB/Gynecology Comment on above: IUD check up Start: 12-09-2024 End: 12-09-2024 [facility] 12/09/2024 10:00 AM EDT [facility] Psychiatry [address] [place] [address] Molly Husain APRN.[facility] [address] [place] [address] MDD (major depressive disorder), recurrent episode, moderate (HCC) [F33.1] Psychiatry Comment on above: MDD (major depressive disorder), recurre nt episode, moderate (HCC) [F33.1] Start: 12-08-2024 Bacteria identified in Blood by Culture Blood Culture [facility] Start: 12-08-2024 Verification routine [facility] Start: 12-08-2024 Admission procedure [facility] Start: 12-08-2024 Hospital admission, emergency, from emergency room, medical nature [facility] Start: 12-08-2024 [facility] Start: 12-07-2024 [facility] Start: 12-05-2024 [facility] Start: 11-15-2024 End: 11-15-2024 Patient encounter procedure 11/15/2024 4:00 PM EDT Office Visit OB/Gynecology [address] [place] [address] Tran Gaytan APRN.ELIAZAR [address] [place] [address] getting a copper iud OB/Gynecology Comment on above: getting a copper iud Start: 11-13-2024 GC (Gonorrhea) Screening (18-) GC (Gonorrhea) Screening (18-) [facility] Start: 11-13-2024 Screening for Chlamydia trachomatis Chlamydia Screening () [facility] Start: 11-11-2024 End: 11-11-2024 Patient encounter procedure 11/11/2024 12:30 PM EDT Office Visit [facility] [address] [place] [address] Gretchen Brower, OD [address] [place] [address] Annual Eye Exam Ophthalmology Comment on above: Annual Eye Exam Start: 08-17-2024 [facility] Start: 08-11-2024 End: 08-11-2024 Patient encounter procedure 08/11/2024 2:45 PM EDT Office Visit OB/Gynecology [address] [place] [address] Robson Romero APRN.RADIOLOGIST [facility] [facility] [address] [place] [address] IUD Insert OB/Gynecology Comment on above: IUD Insert Start: 07-29-2024 End: 07-29-2024 Patient encounter procedure 07/29/2024 3:30 PM EDT Office Visit OB/Gynecology [address] [place] [address] Tran Gaytan APRN.CNM [address] [place] [address] IUD Insert OB/Gynecology Comment on above: IUD Insert Start: 07-19-2024 End: 07-19-2024 Patient encounter procedure 07/19/2024 4:00 PM EST Office Visit OB/Gynecology [address] [place] [address] Tran Gaytan APRN.[facility] [address] [place] [address] checkup OB/Gynecology Comment on above: checkup Start: 06-25-2024 End: 06-25-2024 Patient encounter procedure 06/25/2024 9:45 AM EST Office Visit OB/Gynecology [address] [place] [address] Tran Gaytan APRN.CN [address] [place] [address] PP f/u depression OB/Gynecology Comment on above: PP f/u depression Start: 05-27-2024 Patient discharge [facility] Start: 05-25-2024 Documentation procedure [facility] Start: 05-25-2024 Administration of medication [facility] Start: 05-25-2024 Application of ice collar, cap or bag [facility] Start: 05-25-2024 Catheterization of vein [facility] Start: 05-25-2024 Introduction of urinary catheter [facility] Start: 05-25-2024 Measuring intake and output [facility] Start: 05-25-2024 Notification of physician [facility] Start: 05-25-2024 Procedure discontinued [facility] Start: 05-25-2024 Provision of activity privileges [facility] Start: 05-25-2024 Vital signs measurements [facility] Start: 05-25-2024 End: 05-25-2024 [facility] Start: 05-25-2024 Admission procedure [facility] Start: 05-25-2024 Consultation [facility] Start: 05-18-2024 End: 05-18-2024 Patient encounter procedure 05/18/2024 2:50 PM EST Routine Office Visit OB/Gynecology [address] [place] [address] Cherry Coleman MD [address] [place] [address] OB OB/Gynecology Comment on above: OB Start: 05-11-2024 End: 05-11-2024 Patient encounter procedure 05/11/2024 10:30 AM EST Routine Office Visit OB/Gynecology [address] [place] [address] Anitra Caldwell APRN.CNM [address] [place] [address] OB per gilbert OB/Gynecology Comment on above: OB per gilbert Start: 05-05-2024 End: 05-05-2024 Patient encounter procedure 05/05/2024 2:30 PM EST Office Visit OB/Gynecology [address] [place] [address] Tran Gaytan APRN.CNM [address] [place] [address] Centering OB/Gynecology Comment on above: Centering Start: 04-21-2024 End: 04-21-2024 Patient encounter procedure OB/Gynecology Comment on above: Centering placenta location Start: 04-16-2024 RSV Vaccine (1 - Risk 1-dose series) RSV Vaccine (1 - Risk 1-dose series) [facility] Start: 04-14-2024 End: 04-14-2024 Patient encounter procedure 04/14/2024 8:00 AM EST Routine Office Visit OB/Gynecology [address] [place] [address] Tran Gaytan APRN.CNM [address] [place] [address] OB OB/Gynecology Comment on above: OB Start: 03-29-2024 End: 03-29-2024 Patient encounter procedure 03/29/2024 3:15 PM EST Routine Office Visit OB/Gynecology [address] [place] [address] Tran Gaytan APRN.CNAlexa [address] [place] [address] OB OB/Gynecology Comment on above: OB Start: 03-27-2024 End: 06-26-2024 CBC W Auto Differential panel - Blood COMPLETE BLOOD COUNT AND DIFFERENTIAL Lab Routine 24 weeks gestation of Supervision of normal first teen in second trimester Generalized anxiety disorder Rubella non-immune status, antepartum History of depression Expected: 03/27/2024 (Approximate), Expires: 06/26/2024 [facility] Work Phone: Comment on above: Expected: 03/27/2024 (Approximate), Expi res: 06/26/2024 Start: 03-27-2024 End: 06-26-2024 GESTATIONAL GLUCOSE SCREEN, 1-HOUR, 50 GRAM, NON-FASTING GESTATIONAL GLUCOSE SCREEN, 1-HOUR, 50 GRAM, NON-FASTING Lab Routine 24 weeks gestation of Supervision of normal first teen in second trimester Generalized anxiety disorder Rubella non-immune status, antepartum History of depression Expected: 03/27/2024 (Approximate), Expires: 06/26/2024 [facility] Comment on above: Expected: 03/27/2024 (Approximate), Expi res: 06/26/2024 Start: 03-27-2024 End: 06-26-2024 SYPHILIS TREPONEMAL W/REFLEX SYPHILIS TREPONEMAL W/REFLEX Lab Routine 24 weeks gestation of Supervision of normal first teen in second trimester Generalized anxiety disorder Rubella non-immune status, antepartum History of depression Expected: 03/27/2024 (Approximate), Expires: 06/26/2024 [facility] Comment on above: Expected: 03/27/2024 (Approximate), Expi res: 06/26/2024 Start: 03-25-2024 End: 03-25-2024 ambulatory 03/25/2024 12:00 PM EST Results Only [facility] [address] [facility] [address] [place] [address] GEST GLUC LYSSA, 3-HR, 100 GM, FASTING [facility] Comment on above: GEST GLUC LYSSA, 3-HR, 100 GM, FASTING Start: 03-19-2024 End: 11-01-2024 ambulatory 03/19/2024 10:00 AM EDT Results Only [place] [facility] Station [address] [place] [address] GEST GLUC LYSSA, 3-HR, 100 GM, FASTING Bric[facility] Draw Station Comment on above: GEST GLUC LYSSA, 3-HR, 100 GM, FASTING Start: 03-18-2024 End: 06-17-2024 GEST GLUC LYSSA, 3-HR, 100 GM, FASTING GEST GLUC LYSSA, 3-HR, 100 GM, FASTING Lab Routine Elevated glucose tolerance test Expected: 03/18/2024, Expires: 06/17/2024 [facility] Work Phone: Comment on above: Expected: 03/18/2024, Expires: Start: 03-17-2024 End: 03-17-2024 Patient encounter procedure 03/17/2024 2:30 PM EDT Office Visit OB/Gynecology [address] [place] [address] Tran Gaytan APRN.CNM [address] [place] [address] Centering OB/Gynecology Comment on above: Centering Start: 02-18-2024 End: 02-18-2024 Patient encounter procedure 02/18/2024 2:30 PM EDT Office Visit OB/Gynecology [address] [place] [address] Anitra Caldwell APRN.CN [address] [place] [address] Centering OB/Gynecology Comment on above: Centering Start: 01-23-2024 End: 01-23-2024 Patient encounter procedure OB/Gynecology Comment on above: OB anatomy Start: 01-18-2024 Covid-19 Vaccine ( season) Covid-19 Vaccine () [facility] Start: 01-18-2024 Covid-19 Vaccine () Covid-19 Vaccine ( season) [facility] Start: 01-18-2024 Influenza vaccination [facility] Start: 12-23-2023 End: 03-23-2024 ALPHA FETOPRO MATERNAL [facility] Work Phone: Comment on above: Expected: 12/23/2023, Expires: Start: 12-23-2023 End: 12-23-2023 Patient encounter procedure 12/23/2023 10:30 AM EDT Routine Office Visit OB/Gynecology [address] [place] [address] Anitra Caldwell APRN.CN [address] [place] [address] OB OB/Gynecology Comment on above: OB Start: 12-12-2023 End: 12-12-2023 Patient encounter procedure 12/12/2023 2:20 PM EDT Routine Office Visit OB/Gynecology [address] [place] [address] Tristan Hazel MD [address] [place] [address] new OB OB/Gynecology Comment on above: new OB Start: 11-28-2023 End: 02-27-2024 Bacteria identified in Urine by Culture URINE CULTURE Microbiology Routine Supervision of normal first teen in second trimester Expected: 11/28/2023, Expires: 02/27/2024 [facility] Comment on above: Expected: 11/28/2023, Expires: 4 Start: 11-28-2023 End: 02-27-2024 CARRIER SCREEN, STANDARD [facility] Comment on above: Expected: 11/28/2023, Expires: Start: 11-28-2023 End: 02-27-2024 Chromosome 21 trisomy [Presence] in Blood or Tissue by Cytogenetics [facility] Work Phone: Comment on above: Expected: 11/28/2023, Expires: Start: 11-28-2023 End: 11-27-2024 OBSTETRIC ULTRASOUND WHI OBSTETRIC ULTRASOUND WHI Anc Imaging Routine Supervision of normal first teen in second trimester Expected: 11/28/2023, Expires: 11/27/2024 [facility] Comment on above: Expected: 11/28/2023, Expires: Start: 11-28-2023 End: 11-28-2023 Patient encounter procedure OB/Gynecology Comment on above: Nuchal OB Start: 11-14-2023 End: 02-13-2024 Bacteria identified in Urine by Culture URINE CULTURE Microbiology Routine Encounter for care in first trimester of first Expected: 11/14/2023, Expires: 02/13/2024 [facility] Comment on above: Expected: 11/14/2023, Expires: Start: 11-14-2023 End: 02-13-2024 CBC panel - Blood by Automated count COMPLETE BLOOD COUNT Lab Routine Encounter for care in first trimester of first Expected: 11/14/2023, Expires: 02/13/2024 [facility] Work Phone: Comment on above: Expected: 11/14/2023, Expires: Start: 11-14-2023 End: 02-13-2024 Hemoglobin A1c in Blood HEMOGLOBIN A1C Lab Routine Encounter for care in first trimester of first Expected: 11/14/2023, Expires: 02/13/2024 [facility] Comment on above: Expected: 11/14/2023, Expires: Start: 11-14-2023 End: 02-13-2024 HEMOGLOBIN EVALUATION CASCADE HEMOGLOBIN EVALUATION CASCADE Lab Routine Encounter for care in first trimester of first Expected: 11/14/2023, Expires: 02/13/2024 [facility] Comment on above: Expected: 11/14/2023, Expires: Start: 11-14-2023 End: 02-13-2024 Hepatitis B virus surface Ag [Presence] in Serum HEPATITIS B SURFACE ANTIGEN Lab Routine Encounter for care in first trimester of first Expected: 11/14/2023, Expires: 02/13/2024 [facility] Comment on above: Expected: 11/14/2023, Expires: Start: 11-14-2023 End: 02-13-2024 Hepatitis C virus Ab [Presence] in Serum HEPATITIS C ANTIBODY IA WITH CONFIRMATION Lab Routine Encounter for care in first trimester of first Expected: 11/14/2023, Expires: 02/13/2024 [facility] Comment on above: Expected: 11/14/2023, Expires: Start: 11-14-2023 End: 02-13-2024 HIV 1+2 Ab [Presence] in Serum or Plasma by Immunoassay HIV 1/2 COMBO WITH REFLEX TO DIFFERENTIATION Lab Routine Encounter for care in first trimester of first Expected: 11/14/2023, Expires: 02/13/2024 [facility] Comment on above: Expected: 11/14/2023, Expires: Start: 11-14-2023 End: 02-13-2024 RUBELLA IGG ANTIBODY RUBELLA IGG ANTIBODY Lab Routine Encounter for care in first trimester of first Expected: 11/14/2023, Expires: 02/13/2024 [facility] Comment on above: Expected: 11/14/2023, Expires: Start: 11-14-2023 End: 02-13-2024 SYPHILIS TOTAL W/REFLEX SYPHILIS TOTAL W/REFLEX Lab Routine Encounter for care in first trimester of first Expected: 11/14/2023, Expires: 02/13/2024 [facility] Comment on above: Expected: 11/14/2023, Expires: Start: 11-14-2023 End: 02-13-2024 TYPE + SCREEN TYPE + SCREEN Blood Bank Routine Encounter for care in first trimester of first Expected: 11/14/2023, Expires: 02/13/2024 [facility] Comment on above: Expected: 11/14/2023, Expires: Start: 11-14-2023 End: 11-14-2023 Patient encounter procedure 11/14/2023 1:00 PM EDT Initial Office Visit OB/Gynecology [address] [place] [address] Anitra Caldwell APRN.CN [address] [place] [address] new OB OB/Gynecology Comment on above: new OB Start: 11-11-2023 End: 11-11-2023 Patient encounter procedure 11/11/2023 10:30 AM EDT Office Visit [facility] [address] [place] [address] Gretchen Brower, OD [address] [place] [address] 1 YR complete with cl eval Ophthalmology Comment on above: 1 YR complete with cl eval Start: 06-03-2023 [facility] Start: 06-03-2023 Referral to service [facility] Start: 06-03-2023 Suicide precautions [facility] Start: 05-19-2023 Behavioral Health Screening Behavioral Health Screening [facility] Start: 05-19-2023 Depression Assessment Depression Assessment [facility] Start: 01-17-2023 Covid-19 Vaccine ( season) Covid-19 Vaccine ( season) [facility] Start: 01-17-2023 Influenza vaccination [facility] Start: 2022 CHLAMYDIA SCREENING (18-24) CHLAMYDIA SCREENING (18-24) [facility] Start: 2022 Depression Screening Depression Screening [facility] Start: 2022 GC (GONORRHEA) SCREENING (18-24) GC (GONORRHEA) SCREENING (18-24) [facility] Start: 2022 HEPATITIS C SCREENING HEPATITIS C SCREENING [facility] Start: 2022 Hepatitis C screening Hepatitis C Screening [facility] Start: 2022 HIV SCREENING HIV SCREENING [facility] Start: 2022 HIV screening HIV Screening [facility] Start: 2022 Screening for Chlamydia trachomatis Chlamydia Screening (18-24) [facility] Start: 05-19-2022 DEPRESSION ASSESSMENT DEPRESSION ASSESSMENT [facility] Start: 01-17-2022 Influenza vaccination [facility] Start: 2020 Meningococcal B Vaccine (1 of 2 - Standard) Meningococcal B Vaccine (1 of 2 - Standard) [facility] Start: 2020 Meningococcal B Vaccine: Consider Based On Risk (1 of 2 - Patient Seeks Protection) Meningococcal B Vaccine: Consider Based On Risk (1 of 2 - Patient Seeks Protection) [facility] Start: 2020 MENINGOCOCCAL B: Consider based on risk (1 of 2 - Patient Seeks Protection) MENINGOCOCCAL B: Consider based on risk (1 of 2 - Patient Seeks Protection) [facility] Start: 2020 MENINGOCOCCAL CONJUGATE (1 - 2-dose series) MENINGOCOCCAL CONJUGATE (1 - 2-dose series) [facility] Start: 2020 Meningococcal Conjugate Vaccine (1 - 2-dose series) Meningococcal Conjugate Vaccine (1 - 2-dose series) [facility] Start: 08-11-2019 CHLAMYDIA SCREENING (<18) CHLAMYDIA SCREENING (<18) [facility] Start: 08-11-2019 GC (GONORRHEA) SCREENING (<18) GC (GONORRHEA) SCREENING (<18) [facility] Start: 08-11-2019 HPV Vaccine (1 - 3-dose series) HPV Vaccine (1 - 3-dose series) [facility] Start: 2018 PEDS TO ADULT TRANSITION ANNUAL ASSESSMENT PEDS TO ADULT TRANSITION ANNUAL ASSESSMENT [facility] Start: 03-20-2017 End: 03-20-2017 Appointment Appointment [facility] Work Phone: Start: 2016 Adult depression screening assessment DEPRESSION SCREENING [facility] Start: 2016 PEDS TO ADULT TRANSITION INITIAL DISCUSSION PEDS TO ADULT TRANSITION INITIAL DISCUSSION [facility] Start: 08-11-2015 HPV VACCINE (1 - 2-dose series) HPV VACCINE (1 - 2-dose series) [facility] Start: 2014 MENINGOCOCCAL B: Consider based on risk (1 of 2 - Risk Bexsero 2-dose series) MENINGOCOCCAL B: Consider based on risk (1 of 2 - Risk Bexsero 2-dose series) [facility] Start: 2013 HPV VACCINE (1 - 2-dose series) HPV VACCINE (1 - 2-dose series) [facility] Start: 2009 COVID-19 VACCINE (#1) COVID-19 VACCINE (#1) [facility] Start: 2008 POLIO (3 of 3 - 4-dose series) POLIO (3 of 3 - 4-dose series) [facility] Start: 02-10-2005 COVID-19 VACCINE (#1) COVID-19 VACCINE (#1) [facility] Bacteria identified in Urine by Culture URINE CULTURE Microbiology Routine Supervision of normal first teen in second trimester 15 weeks gestation of Nausea and vomiting during Generalized anxiety disorder History of depression 12/23/2023 11:05 AM EDT [facility] COVID & INFLUENZA A/ B & RSV PCR, ROUTINE COVID & INFLUENZA A/B & RSV PCR, ROUTINE Microbiology Routine Viral URI Ordered: 03/18/2024 [facility] Work Phone: Comment on above: Ordered: 03/18/2024 Insertion intrauteri ne device iud INSERT INTRAUTERINE DEVICE Procedures Routine Encounter for IUD insertion Ordered: 07/28/2024 [facility] Work Phone: Comment on above: Ordered: 07/28/2024 End: 08-29-2024 MR Knee - left WO contrast MRI KNEE WO IVCON LEFT Radiology Routine S/P knee surgery Loose body in knee, left knee 1 Occurrences starting 07/31/2023 until 08/29/2024 [facility] Work Phone: Comment on above: 1 Occurrences starting 07/31/2023 until 08/29/2024 Patient Education [facility] Work Phone: Patient referral [facility] Work Phone: ROUTINE, GR OUP B STREP PCR ROUTINE, GROUP B STREP PCR Microbiology Routine Encounter for supervision of normal first in third trimester 36 weeks gestation of 05/18/2024 2:58 PM EST [facility] Work Phone: UA DIP,URINE HCG (POC) UA DIP,UR INE HCG (POC) Lab Routine Encounter for IUD insertion Ordered: 11/15/2024 [facility] Work Phone: Comment on above: Ordered: 11/15/2024 URINE OB DIP B/O URINE OB DIP B/ O Lab Routine Supervision of normal first teen in second trimester Nausea and vomiting during Normal first with uncertain date of LMP, antepartum Generalized anxiety disorder History of depression 12 weeks gestation of Ordered: 11/28/2023 [facility] Comment on above: Ordered: 11/28/2023 URINE OB DIP B/O URINE OB DIP B/ O Lab Routine 34 weeks gestation of Encounter for supervision of normal first in third trimester Rubella non-immune status, antepartum Heartburn during in third trimester Ordered: 05/05/2024 [facility] Work Phone: Comment on above: Ordered: 05/05/2024 End: 08-22-2024 XR Knee - left 4 Views XR KNEE GENERAL 4V AP BOTH/PA BOTH/LAT/MERC LEFT Radiology Routine Chronic pain of left knee 1 Occurrences starting 07/24/2023 until 08/22/2024 [facility] Work Phone: Comment on above: 1 Occurrences starting 07/24/2023 until 08/22/2024 [facility] Immunizations Immunization Date Immunization Notes Care Provider Jessica tucker 12-07-2024 tetanus toxoid, redu dagoberto diphtheria toxoid, and acellular pertussis vaccine, adsorbed No Primary Care Physician [facility] 05-26-2024 measles, mumps and rubella virus vaccine No Primary Care Physician [facility] 05-18-2024 respiratory syncytia l virus (RSV) vaccine, bivalent (ABRYSVO) Cherry Schuler MD Work Phone: [facility] 03-16-2024 tetanus toxoid, redu dagoberto diphtheria toxoid, and acellular pertussis vaccine, adsorbed Neeta Rey PA-C Work Phone: [facility] 04-03-2020 tetanus immune globulin Dipika Hazel APRN.RADIOLOGIST CHIEF OF BREAST IMAGING Work Phone: [facility] 04-03-2020 tetanus toxoid, redu dagoberto diphtheria toxoid, and acellular pertussis vaccine, adsorbed Zhanna Hazel APRN.RADIOLOGIST CHIEF OF BREAST IMAGING Work Phone: [facility] 06-10-2017 influenza virus vaccine, unspecified formulation John Crowe MD Work Phone: [facility] 02-04-2005 diphtheria, tetanus toxoids and acellular pertussis vaccine [employer] Work Phone: [facility] Work Phone: 02-04-2005 haemophilus influenz ae type b conjugate and Hepatitis B vaccine [employer] Work Phone: [facility] Work Phone: 02-04-2005 pneumococcal conjuga te vaccine, 7 valent [employer] Work Phone: [facility] Work Phone: 02-04-2005 poliovirus vaccine, inactivated [employer] Work Phone: [facility] Work Phone: 2004 diphtheria, tetanus toxoids and acellular pertussis vaccine [employer] Work Phone: [facility] Work Phone: 2004 haemophilus influenz ae type b conjugate and Hepatitis B vaccine [employer] Work Phone: [facility] 2004 haemophilus influenz ae type b vaccine, HbOC conjugate [employer] Work Phone: [facility] Work Phone: 2004 hepatitis B vaccine, pediatric or pediatric/adolescent dosage [employer] Work Phone: [facility] Work Phone: 2004 pneumococcal conjuga te vaccine, 7 valent [employer] Work Phone: [facility] Work Phone: 2004 poliovirus vaccine, inactivated [employer] Work Phone: [facility] Work Phone: Payers Date Payer Category Payer Private Health Insurance [id number] 2024 Self-pay [id number] 2023 Medicaid [id number] 2023 Medicaid [id number] 2022 Private Health Insurance [id number] 2022 Unknown [id number] 2021 Unknown [employer] PPO [id number] 2021-Present [phone] [address] [place] [address] PPO [id number] 2021 Unknown AN[employer]M BLUE ACCE SS PPO [id number] 2021-Present [phone] [address] [place] [address] PPO [id number] [employer] of [employer] ( and others) PRIME [id number] Unknown [id number] Unknown [id number] Unknown [id number] 62 Unknown [id number] 62 Unknown [id number] 62 Unknown [id number] 62 Unknown [id number] Social History Date Type Detail Facility Start: 06-10-2017 End: 12-08-2024 Tobacco smoking status NHIS Never smoked tobacco [facility] Start: 09-26-2021 End: 02-18-2023 Alcohol intake Current non-drinker of alcohol (finding) [facility] Start: 2005 Sex Assigned At Female [facility] Start: 09-16-2021 End: 04-08-2022 Exposure to SARS-CoV-2 (event) Not sure [facility] Start: 06-10-2017 End: 03-14-2022 Tobacco use and exposure Smokeless tobacco non-user [facility] Start: 01-22-2023 End: 02-18-2024 History of Social function [facility] Start: 01-22-2023 End: 02-18-2024 Tobacco use panel [facility] National Score (1-100), lower number is lower risk 51 [facility] Start: 01-10-2020 Gender identity Identifies as female gender (finding) [facility] Start: 06-03-2023 Tobacco smoking status NHIS Unknown if ever smoked [facility] Start: 11-14-2023 End: 11-15-2024 Alcohol intake Ex-drinker (finding) [facility] Start: 11-13-2023 Education 15 [facility] Start: 11-13-2023 Alcohol Comment occasionally [facility] Start: 09-19-2023 [facility] The thought of harming myself has occurred to me Sometimes [facility] Start: 08-17-2024 [facility]finding[facility]: Highlighted row Not [facility] Medical Equipment Procedure Code Equipment Code Equipment Origin al Text Equipment Identifier Dates Cit-Vs-T-Kind Implant - [id number] Start: 01-18-2022 Comment on above: Description: Semi-T Screw Fastthread 7mm Biocomposite 20mm Interference Knee - [id number] Start: 01-18-2022 Device Dx Swivel ock Sl 3.5mm 8.5mm [place] Eyelet Sterile - [id number] Start: 01-18-2022 Device Dx Swivel ock Sl 3.5mm 8.5mm [place] Eyelet Sterile - [id number] Start: 01-18-2022 Goals Date Patient Goal Desired Activity /State Personal health goal Functional Status Date Assessment Result Facility 06-22-2014 Are you deaf, or do you have serious difficulty hearing No 06/22/2014 10:58 AM Jessica Eli RN No [facility] Work Phone: 06-22-2014 Are you blind, or do you have serious difficulty seeing, even when wearing glasses No 06/22/2014 10:58 AM Jessica Eli RN No [facility] 06-22-2014 Do you have serious difficulty walking or climbing stairs No 06/22/2014 10:58 AM Jessica Eli RN No [facility] 06-22-2014 Do you have difficul ty dressing or bathing No 06/22/2014 10:58 AM Jessica Eli RN No [facility] Mental Status Date Assessment Result Facility 06-22-2014 Because of a physica l, mental, or emotional condition, do you have serious difficulty concentrating, remembering, or making decisions No 06/22/2014 10:58 AM Jessica Eli RN No [facility] Clinical Notes 06-10-2017 to 12-08-2024 Telephone Encounter - Samara Clifford RN - 12/05/2024 9:58 AM EDTTelephone Encounter - Samara Clifford RN - 12/05/2024 9:58 AM EDTPatient Nixon Vaz RT(R) - 10/21/2024 5:30 PM EDT Note Date & Type Note Facility 12-08-2024 Discharge summary [facility] 12-08-2024 Radiology Diagnostic study note [facility] Imaging Services [address] [place], [place] [id number] Hand Min 3 Views MR#: [id number] Acct: [id number] Name: OARL FLETCHER Rep #: [id number] : 2005 F 19 From: Renee Blanchard MD PCP: Care Physician,No Primary Status: REG ER Study:Hand Min 3 Views Date of Exam: Exam# [id number] Ordering Dr: Heaven Jay DO PROCEDURE: HAND MIN 3 VIEWS 12/08/2024 REASON FOR EXAM: CAT BITE TECHNIQUE: HAND MIN 3 VIEWS COMPARISON: None FINDINGS: There is no fracture or dislocation. There is no visible radiopaque foreign body or focal soft tissue abnormality. Mineralization is normal. There is no visible atherosclerosis. RAD/Hand Min 3 Views IMPRESSION: No fracture or dislocation is identified. Reading Location: [facility] CC: Vlad Jay DO; No Primary Care Physician ~ Recording Artist: Signed [facility] 12-05-2024 Telephone encounter Note Reason for call: [...] Protocols used: Contraception - Implant Symptoms and Dpjvwnrnt-AOVUL-NB [facility] 12-05-2024 Miscellaneous Notes Reason for call: [...] Protocols used: Contraception - Implant Symptoms and Swvloenzz-LKKQW-MX documented in this encounter [facility] 11-15-2024 Instructions Roro Sanz MA - [...] contact the office. documented in this encounter [facility] 11-15-2024 Note HNO ID: [id number] Author: TRAN GAYTAN APRN.ELIAZAR Service: ? Author Type: Tack Driller Type: Progress Notes Filed: 11/15/2024 17:11 Note Text: Oral presents today for IUD insertion for contraception. Patient's last menstrual period was 10/10/2024 (exact date). GC/chlamydia: Not done: no risk factors and/or patient declines screening test: negative Side effects including irregular bleeding were discussed with the patient. The patient understands that it should be removed in 7 years or sooner if the patient desires a . IUD source: office provided IUD lot #: [id number] Exp date: 12/15/2026 UNIVERSAL PROTOCOL / SAFETY [...] up after next menses for string check. Tran Gaytan APRN.[facility] 11-15-2024 History of Present illness Narrative Oral presents today for IUD insertion for contraception. Patient's last menstrual period was 10/10/2024 (exact date). GC/chlamydia: Not done: no risk factors and/or patient declines screening test: negative Side effects including irregular bleeding were discussed with the patient. The patient understands that it should be removed in 7 years or sooner if the patient desires a . IUD source: office provided IUD lot #: [id number] Exp date: 12/15/2026 UNIVERSAL PROTOCOL / SAFETY [...] up after next menses for string check. Tran Gaytan APRN.CNM documented in this encounter [facility] 10-21-2024 History of Present illness Narrative Radiology Service Progress Note PATIENT NAME: Oral Fletcher DATE OF SERVICE: October 21, 2024 [...] PATIENT PRESENTS WITH AN IMPLANTABLE OR ATTACHED PERMASTONE INSTALLER: No RADIOLOGY DEPARTMENT: General X-ray: Exam(s) Completed: Chest X-Ray PERIPHERAL IV DATA: Not applicable SIGNED BY: RT Abdirahman(Arthur) October 21, 2024 5:12 PM documented in this encounter [facility] 10-21-2024 Note HNO ID: [id number] Author: NIXON CARDENAS RT(R) Service: ? Author Type: Basic Acoustic Analyst Type: Progress Notes Filed: 10/21/2024 17:19 Note Text: Radiology Service Progress Note PATIENT NAME: Oral Fletcher DATE OF SERVICE: October 21, 2024 [...] PATIENT PRESENTS WITH AN IMPLANTABLE OR ATTACHED PERMASTONE INSTALLER: No RADIOLOGY DEPARTMENT: General X-ray: Exam(s) Completed: Chest X-Ray PERIPHERAL IV DATA: Not applicable SIGNED BY: RT Abdirahman(Arthur) October 21, 2024 5:12 PM [facility] 10-21-2024 Note HNO ID: [id number] Author: ZHANNA HAZEL APRN.RADIOLOGIST CHIEF OF BREAST IMAGING Service: ? Author Type: Nurse Practitioner Type: Progress Notes Filed: 10/21/2024 17:54 Note Text: [facility] Subjective Oral Fletcher is a 19 year old female. [...] history is provided by the patient. No corporate attorney was used. Cough Review of Systems Constitutional: [...] menses Low-lying placenta (HCC) 01/26/2024 04/21/24- Resolved. Tran Gaytan APRN.CNM Repeat growth US at 32 weeks. Anitra Caldwell APRN.CNM Post depression 06/24/2024 PAST SURGICAL HISTORY Procedure Laterality Date DENTAL SURGERY HX 2015 ORTHOPEDICS SURGERY HX knee torn meniscus WRIST Left cyst on left wrist ALLERGIES Eucalyptus and Lactase MEDICATIONS sertraline (ZOLOFT) 25 mg tablet Take 1 tablet by mouth once daily. Csekllmn-Zi-Eez-Fe-FA tab Take 1 tablet by mouth once [...] Unremarkable. IMPRESSION IMPRESSION: No acute radiographic abnormality. Recording Artist: CHAPARRITA Transcribe Date/Time: Oct 21 2024 5:46P [...] Patient agreeable to care plan. Zhanna Hazel APRN.RADIOLOGIST CHIEF OF BREAST IMAGING [facility] Procedures [facility] 10-21-2024 History of Present illness Narrative [facility] Subjective Oral Fletcher is a 19 year old female. [...] history is provided by the patient. No corporate attorney was used. Cough Review of Systems Constitutional: [...] menses Low-lying placenta (HCC) 01/26/2024 04/21/24- Resolved. Tran Gaytan APRN.CNM Repeat growth US at 32 weeks. Anitra Caldwell APRN.CNM Post depression 06/24/2024 PAST SURGICAL HISTORY Procedure Laterality Date DENTAL SURGERY HX 2015 ORTHOPEDICS SURGERY HX knee torn meniscus WRIST Left cyst on left wrist ALLERGIES Eucalyptus and Lactase MEDICATIONS sertraline (ZOLOFT) 25 mg tablet Take 1 tablet by mouth once daily. Ezbvletr-Gv-Nci-Fe-FA tab Take 1 tablet by mouth once [...] Unremarkable. IMPRESSION IMPRESSION: No acute radiographic abnormality. Recording Artist: CHAPARRITA Transcribe Date/Time: Oct 21 2024 5:46P [...] Patient agreeable to care plan. Zhanna Hazel APRN.RADIOLOGIST CHIEF OF BREAST IMAGING MDM Procedures documented in this encounter [facility] 09-17-2024 Note HNO ID: [id number] Author: NATALIIA VAIL LISW Service: ? Author Type: Firearms Instructor Type: Progress Notes Filed: 09/17/2024 11:06 Note Text: GENERAL PSYCHOLOGY Session #: 1 (session count starts after PSYL NEW EVAL visit) Session conducted by phone due to poor Zoom screen tender helper. 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 Suicide protocol sent via [facility] Approximately 45 minutes were spent with the patient doing therapy. RADHA Fuentes [facility] 08-17-2024 Discharge summary [facility] 08-17-2024 Radiology Diagnostic study note [facility] Imaging Services [address] [place], [place] [id number] Abdomen/Pelvis W IV Cont ONLY MR#: [id number] Acct: [id number] Name: ORAL FLETCHER Rep #: [id number] : 2005 F 19 From: Sd Jasso MD PCP: Care Physician,No Primary Status: REG ER Study:Abdomen/Pelvis W IV Cont ONLY Date of E xam: 08/17/24 Exam# [id number] Ordering Dr: Enid Alfred MD PROCEDURE: ABDOMEN/PELVIS [...] stranding or urothelial thickening seen. Reading Location: [id number] CC: Dr. Blane Alfred MD; No Primary Care Physician ~ Recording Artist: Signed [facility] 07-28-2024 Note HNO ID: [id number] Author: TRAN GAYTAN APRN.CNM Service: ? 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 Oral Fletcher is a 18 year old year old here for 6 week visit. Started on Zoloft 25 mg PO daily 1 month ago and reports mood has drastically improved. Denies any feelings of depression and feels that anxiety has been decreased as well. 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 Has appointment with counseling. Delivery Summary: on 05/25/2024 by Marcos epidural at 37 wks, 4 days, 8:34 PM. Male Westley Reyes. ROS/ Recovery: Feeding: Bottle feeding problems: None Menses since delivery: none Menstrual pattern prior to : Irregular periods Dovray since delivery: Not resumed Depression: denies, improved [...] Irregular menses Low-lying placenta 01/26/2024 04/21/24- Resolved. Tran Gaytan APRN.CNM Repeat growth US at 32 [...] discussed with the Patient or Patient's Authorized Homeworker. As applicable, any other physician, advance practice provider, medical student, or other health professional student that will be observing or involved in the sensitive examination for educational or training purposes was discussed with the Patient or Authorized Homeworker. 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 Oral Fletchre is a 18 year old year old here for 6 week visit. Started on Zoloft 25 mg PO daily 1 month ago and reports mood has drastically improved. Denies any feelings of depression and feels that anxiety has been decreased as well. 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 Has appointment with counseling. Delivery Summary: on 05/25/2024 by Marcos epidural at 37 wks, 4 days, 8:34 PM. Male Westley Reyes. ROS/ Recovery: Feeding: Bottle feeding problems: None Menses since delivery: none Menstrual pattern prior to : Irregular periods Dovray since delivery: Not resumed Depression: denies, improved [...] Irregular menses Low-lying placenta 01/26/2024 04/21/24- Resolved. Tran Gaytan APRN.CNM Repeat growth US at 32 [...] discussed with the Patient or Patient's Authorized Homeworker. As applicable, any other physician, advance practice provider, medical student, or other health professional student that will be observing or involved in the sensitive examination for educational or training purposes was discussed with the Patient or Authorized Homeworker. The Patient or Authorized Homeworker has agreed to proceed with the sensitive [...] external genitalia normal, normal Bartholin's glands, urethra, Ottum[place]'s glands, no vulvar lesions, no cervical lesions, [...] Follow up: RTC for insertion of IUD Tran Gaytan APRN.CNM documented in this encounter [facility] 07-15-2024 Note HNO ID: [id number] Author: SAROJ EARLY LISW Service: ? Author Type: Firearms Instructor Type: Progress Notes Filed: 07/15/2024 08:19 Note Text: -------- Summary: [facility] Consult Follow Up -------- Review of referral with patient. Was patient aware of [facility] referral placement by provider?Yes Is the patient currently connected for care : No If not connected to Care are they agreeable to referral?Yes If agreeable to referral, are they:Internal Comment: [facility] psychology Assisted in making appt at: [facility] psychiatry Appointment date and time: 06/24/24 Current priority status of the referral Medium Additional information SW did not speak to patient directly. Patient referred to [facility] 06/17/24 and had appointment with [facility] psychology 06/24/24. [facility] 06-25-2024 Instructions Tran Gaytan APRN.KMM - 06/25/2024 10:10 AM EST Here are some links for wonderful Providers here in the community and surrounding areas. Do not hesitate to contact their offices, many are offering virtual visits during this time. 0-400-3-GTBO3LZCC - [place] Maternal Mental Health Hotline If you are in suicidal crisis, please call or text 4-459-414-TALK ( ) or visit the National Suicide Prevention Lifeline website. mchb.[facility].gov [facility] Psychology, Psychiatry, Counseling Connect with therapist/ can do virtual visits [phone] Referral to the [facility] To schedule an appointment, please call the [place] for Behavioral Health Appointment Line: [phone] option 1 [facility] - [place] [id number] Jassi Claytonoster, [facility] [address] [place] [address] [facility] [address] [place] [address] [facility] [address] [place], [place] [id number] Ladi Conteh MD [address] [place] [address] [facility] [address] [facility], [address] [place] [address] [facility] [address] [place] [address] [facility] Counseling Services [place] / [place] [phone]/ [phone] Wendy Lopez [address] [facility] [address] [facility] [phone] A[facility] of Counseling and Mediation [place] / [place] [phone] [facility] [address] [place] [address]/ [place] [phone] JOHNNIE Johnston, SHILO [facility] Workshops, telehealth and at home visits. [phone] [facility] counseling riverside 20 locations [place], [place], [place], [place], [place], [place], [place], [facility], [place], [place], [place], [place], [place], [place], [facility], [place], [place] ,[facility], [place], [place],[facility], [facility] [place], [place], [facility], [facility], [place] www.BareedEE [phone] Psychotherapy resources outside of [facility] are listed below [facility] Psychotherapy Web: https://www.3Play Media/ Support International Online Provider Directory https://Ventealapropriete/ [facility] https://Alt12 Apps/ EmboMedics for Behavioral Health and Wellness Web: https://Sundrop Fuels/ Brighter.com for Effective Living Web: https://Restaurant.comlivingTaskhub/ LifeStance Web: https://Welzoo.EpicTopic/location/stat e/michigan/ [facility] Web: https://www.[facility].org/ [facility] Web: https://Rebtel.org/ Recovery Resources Mental health and substance abuse help Web: https://www.WonderHowTosZnapshop & RESOURCES Support International Direct peer support and connection to professional resources Non-Emergency Helpline Phone: / Text: [phone] Web: https://www..net/ Online Provider Directory: https://Ventealapropriete/ Online Support Meetings: https://www..net/get-help/ ljw-ywelre-smarefw-meetings/ [facility] Baby and Teacher Visually Impaired Services Web: https://wwwIkon Semiconductor/ MotherToBaby Expert information on medication use during and Text: [phone] Web: https://mothertoMagoosh.org/ NATIONAL REGISTRY FOR PSYCHIATRIC MEDICATIONS Currently studying the safety of antidepressants, ADHD medications and atypical antipsychotics taken during TO PARTICIPATE CALL TOLL-FREE: Web: https://womenchi [facility].org/resflorala memorial hospital/pregnancyregistry/ Support Groups: [facility]- Follow on facebook Baby Bistro support group led by [facility] department [facility] Mamas - Support Group [facility].org The POEM support group [phone] Www.poemonline.org Follow on facebook - JOSIANE smith Online support meetings PSI https://www..net/get-help/ hhl-wnjdjn-jdpszqw-meetings/ [facility] mommy and me virtual support group 11:30-1pm Support for mothers and new babies and toddlers [place] childbirth education: Childbirth @[facility].org or call [phone] CRISIS: CRISIS HOTLINE [phone], 911 or go to the nearest [facility] [phone] / [facility] [phone] https://www.[facility].org Crisis text line text the word HOME to [phone] [place] [facility] [address] [place] [address] [facility] [address] www.OrangeHRM Samra Ku clinical counseling [address] [facility] [address] [place] [address] www.AcunoteriDoodle Mobile.EpicTopic [phone] Holding space psychotherapy Raisa Perez ELECTRICAL DESIGN ENGINEER BAND AID MACHINE OPERATOR-S [address] [facility] www.PeriGen [phone]/ [place] [phone] They all offer virtual. All work with trauma Support groups Online support meetings PSI https://www..net/get-help/ etx-zcbjzd-zgsovqb-meetings/ Here are the support groups they offer: Support of parents of 1 to 4 years old children POEM ( Outreach and Encouragement for Moms) offers free support for mothers experiencing depression, anxiety, and other mood and anxiety disorders. Masks are recommended but not required. No pre-registration required. Babies in arms welcome. meetings now take place on the and Friday of each month Location: [facility] [address] [place] [address] Room 122 (library room) 7-8:00 p.m. When you enter the [facility] parking lot off of [address] the entrance door closest to our meeting room is on the front of the building toward the right. For those who are more comfortable with a virtual platform, POEM offers online support group options several days of the week. To register for an online group or to find out more about PO, website at: https://mhaohio.org/get-help/materna d-cccisw-rnzujm/poem-services/ offer a confidential helpline: private Facebook group is called [facility] Here are the groups they offer: Traumatic childbirth resources: Http://pattch.org/ https://www.BioheartmiyaMerchant View. EpicTopic/ documented in this encounter [facility] 06-25-2024 Note HNO ID: [id number] Author: TRAN GAYTAN APRN.CNM Service: ? Author Type: Tack Driller Type: Progress Notes Filed: 06/25/2024 10:12 Note Text: VIRTUAL VISIT PROGRESS NOTE This is a virtual visit using Weavlyom Video Visit. It required patient-provider interaction for the medical decision making as documented below. I have communicated my name and active licensure. The patient's identity and physical location were verified at the time of this visit. Either the patient or their legal litigation claim representative has been informed of the risks and benefits of -- and alternatives to -- treatment through a remote evaluation and consents to proceed with the evaluation remotely. Oral Fletcher is a 18 year old female seen for feelings of depression. She was referred to woman's behavioral health services for counseling and completed intake via phone yesterday. Received message from neonatal social worker: I just did a psych eval on Oral and I told her to contact you [...] feel comfortable leaving baby with family or planning assistant. Initially thought she was just tired, but [...] anxiety disorder - ICD9: 300.02, ICD10: F41.1 Ruby Depression Scale Total: 23 YOUNG- 12 Denies [...] weeks for follow up / medication evaluation Tran Gaytan APRN.CNM I spent a total of 20 minutes on the date of the service which included preparing to see the patient, completing clinical documentation, obtaining and/or reviewing separately obtained history, performing a medically appropriate examination, counseling and educating the patient/family/caregiver, and ordering medications, tests, or procedures [facility] 06-25-2024 History of Present illness Narrative VIRTUAL VISIT PROGRESS NOTE This is a virtual visit using Weavlyom Video Visit. It required patient-provider interaction for the medical decision making as documented below. I have communicated my name and active licensure. The patient's identity and physical location were verified at the time of this visit. Either the patient or their legal litigation claim representative has been informed of the risks and benefits of -- and alternatives to -- treatment through a remote evaluation and consents to proceed with the evaluation remotely. Oral Fletcher is a 18 year old female seen for feelings of depression. She was referred to woman's behavioral health services for counseling and completed intake via phone yesterday. Received message from neonatal social worker: I just did a psych eval on Oral and I told her to contact you [...] feel comfortable leaving baby with family or planning assistant. Initially thought she was just tired, but [...] anxiety disorder - ICD9: 300.02, ICD10: F41.1 Ruby Depression Scale Total: 23 YOUNG- 12 Denies current SI/HI Scheduled with counseling / psychiatry next month Zoloft 25 mg PO daily- start with 1/2 tab daily for first week and increase to full tab on week 2 Possible side effects discussed and questions answered Desires to stop pumping- discussed wrapping breasts/icing/ benadryl Has good family support Crisis phone number and other services provided RTO 4 weeks for follow up / medication evaluation Tran Gaytan APRN.CNM I spent a total of 20 minutes on the date of the service which included preparing to see the patient, completing clinical documentation, obtaining and/or reviewing separately obtained history, performing a medically appropriate examination, counseling and educating the patient/family/caregiver, and ordering medications, tests, or procedures documented in this encounter [facility] 06-24-2024 Telephone encounter Note Spoke with patient. Scheduled for a virtual visit tomorrow. Amelia Martinez, ADRIEN [facility] 06-24-2024 Miscellaneous Notes Spoke with patient. Scheduled for a virtual visit tomorrow. Amelia Martinez, RN Left message for patient to call office. Kayla Paul, RN Tran Gaytan APRN.CNM (Tack Driller) Learning And Development Coordinator Patient contacted by [facility] womens behavioral health referral. Received this message: I just did a psych eval on Oral and I told her to contact you [...] Tomorrow is fine! documented in this encounter [facility] 06-24-2024 Telephone encounter Note Left message for patient to call office. Kayla Carlton RN [facility] 06-24-2024 Telephone encounter Note Tran Gaytan APRN.CNM (Tack Driller) Learning And Development Coordinator Patient contacted by social [facility] women's behavioral health referral. Received this message: I just did a psych eval on Oral and I told her to contact you [...] visit with me scheduled. Tomorrow is fine! [facility] 06-24-2024 Note HNO ID: [id number] Author: TRAN GAYTAN APRN.CNM Service: ? Author Type: Tack Driller Type: Progress Notes Filed: 06/24/2024 10:47 Note Text: Patient contacted by social work [facility] women's behavioral health referral. Received this message: I just did a psych eval on Oral and I told her to contact you [facility] so you could possibly start her on [...] visit with me scheduled. Tomorrow is fine! Tran Gaytan APRN.CNM [facility] 06-24-2024 History of Present illness Narrative Patient contacted by social [facility] behavioral health referral. Received this message: I just did a psych eval on Oral and I told her to contact you [facility] so you could possibly start her on [...] visit with me scheduled. Tomorrow is fine! Tran Gaytan APRN.CNM documented in this encounter [facility] 06-24-2024 Note HNO ID: [id number] Author: NATALIIA VAIL LISW Service: ? Author Type: Firearms Instructor Type: Progress Notes Filed: 09/17/2024 10:49 Note [...] agreement to participate Originating site for client [place] Originating site for provider [facility] appropriate for privacy No equipment failures, provided psychotherapy I have communicated my name and active licensure. The patient's identity and physical location were verified at the time of this visit. Either the patient or their legal litigation claim representative has been informed of the risks [...] a copy of the consent form on El[employer]. The patient consented to a virtual visit and their location was confirmed. PRESENT: Child AGE: [age] year old RACE: White MARITAL STATUS: Living with significant other CHILDREN: Yes, son age one month Westley. 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 PAST MEDICAL HISTORY Diagnosis Date Anemia Depression/anxiety Ganglion cyst of wrist, left Irregular menses Low-lying placenta 01/26/2024 04/21/24- Resolved. Tran Gaytan APRN.CNM Repeat growth US at 32 weeks. Anitra Caldwell APRN.CNM PAST SURGICAL HISTORY Procedure Laterality Date DENTAL SURGERY HX 2015 ORTHOPEDICS SURGERY HX knee torn meniscus WRIST Left cyst on left wrist Current Outpatient Medications Medication Sig Befpxjob-Pg-Uks-Fe-FA tab Take 1 tablet by mouth once [...] she felt hopele (more content not included)... [facility] 06-17-2024 Instructions Tran Gaytan APRN.KM - 06/17/2024 2:16 PM EST Here are some links for wonderful Providers here in the community and surrounding areas. Do not hesitate to contact their offices, many are offering virtual visits during this time. 4-904-5-YWWV5UYDE - [place] Maternal Mental Health Hotline If you are in suicidal crisis, please call or text 4-743-486-TALK ( ) or visit the National Suicide Prevention Lifeline website. mchb.[facility] hospital[facility].gov [facility] Psychology, Psychiatry, Counseling Connect with therapist/ can do virtual visits [phone] Referral to the [facility] To schedule an appointment, please call the Center for Behavioral Health Appointment Line: [phone] option 1 [facility] [place] [address] Jassi Higgins, [facility] [address] [facility] [address] [place] [id number] [facility] [address] [place] [address] Ladi Conteh MD [address] [place], [place] [id number] [facility] [address] [facility], [address] [place] [address] [facility] [address] [place] [address] [facility] Counseling Services [place] / [place] [phone]/ [phone] Wendy Lopez [address] [facility] [address] [facility] [phone] [facility] Counseling and Mediation [place] / [place] [phone] [facility] [place] [address] [place] [address]/ [place] [phone] Chantell Bo, JOHNNIE, CLC [facility] Workshops, telehealth and at home visits. [phone] [facility] counseling [place] 20 locations [place], [place], [place], [place], [place], [place], [place], [facility], [place], [place], [place], [place], [place], [place], [facility], [place], [place] ,[facility], [place], [place],[facility], [facility], [place], [facility], [facility], Karla www.BareedEE [phone] Psychotherapy resources outside of [facility] are listed below [facility] [employer] Psychotherapy Web: https://www.3Play Media/ Support International Online Provider Directory https://Ventealapropriete/ [facility] https://Alt12 Apps/ Partners for Behavioral Health and Wellness Web: https://Sundrop Fuels/ Center for Effective Living Web: https://FlowMedica.Steelbox, Inc..EpicTopic/ LifeStance Web: https://Welzoo.EpicTopic/location/stat /michigan/ [facility] Web: https://www.signaturenew [facility].org/ [facility] Web: https://Rebtel.org/ Recovery Resources Mental health and substance abuse help Web: https://www.WonderHowTos.org & RESOURCES Support International Direct peer support and connection to professional resources Non-Emergency Helpline Phone: / Text: [phone] Web: https://www..net/ Online Provider Directory: https://Ventealapropriete/ Online Support Meetings: https://www..net/get-help/ nul-xouwqb-sgmiamc-meetings/ REY Baby and Teacher Visually Impaired Services Web: https://Must See India/ Projjix Expert information on medication use during and Text: [phone] Web: https://SQZ Biotech/ NATIONAL REGISTRY FOR PSYCHIATRIC MEDICATIONS Currently studying the safety of antidepressants, ADHD medications and atypical antipsychotics taken during TO PARTICIPATE CALL TOLL-FREE: Web: https://womenchi [facility].org/[facility]/pregnancyregistry/ Support Groups: [facility]- Follow on facebook Baby Bistro support group led by [facility] department [facility] - Support Group [facility].org The POEM support group [phone] Www.poemonline.org Follow on facebook - POEM stewart chapter Online support meetings PSI https://www..net/get-help/ rje-rytott-dubqnky-meetings/ [facility] mommy and me virtual support group 11:30-1pm Support for mothers and new babies and toddlers [place] childbirth education: Childbirth @cc.org or call [phone] CRISIS: CRISIS HOTLINE [phone], 911 or go to the nearest [facility] [phone] / [facility] [phone] https://www.[facility] memorial hospitalrb.org Crisis text line text the word HOME to [address]32294 [facility] [address] [place] [address] [facility] [address] www.Interviu MealbertoSeagate Technology Samra Ku clinical counseling [address] [address] www.bethbritton.EpicTopic [phone] [facility] psychotherapy Raisa Perez ELECTRICAL DESIGN ENGINEER BAND AID MACHINE OPERATOR-S [address] [facility] www.PeriGen [phone]/ [place] [phone] They all offer virtual. All work with trauma Support groups Online support meetings PSI https://www..net/get-help/ mjd-gnmyiu-hyivwnd-meetings/ Here are the support groups they offer: Support of parents of 1 to 4 years old children POEM ( Outreach and Encouragement for Moms) offers free support for mothers experiencing depression, anxiety, and other mood and anxiety disorders. Masks are recommended but not required. No pre-registration required. Babies in arms welcome. meetings now take place on the and Friday of each month Location: [facility] [address] [place] [address] Room 122 (library room) 7-8:00 p.m. When you enter the [facility] parking lot off of [address] the entrance door closest to our meeting room is on the front of the building toward the right. For those who are more comfortable with a virtual platform, POEM offers online support group options several days of the week. To register for an online group or to find out more about POEM, website at: https://mhaohio.org/get-help/materna u-khfyvx-qgqfzh/poem-services/ offer a confidential helpline: private Facebook group is called JOSIANE Smith Here are the groups they offer: Traumatic childbirth resources: Http://pattch.org/ https://www.BioheartmiyaMerchant View. EpicTopic/ documented in this encounter [facility] 06-17-2024 Note HNO ID: [id number] Author: TRAN GYATAN APRN.CNM Service: ? Author Type: Tack Driller Type: Progress Notes Filed: 06/17/2024 14:17 Note Text: EARLY VISIT Oral Fletcher is a 18 year old here [...] in parent's room, does not feel rested Dovray since delivery: Not resumed Emotional support: Yes [...] for 6 week visit and as needed [facility]tan [facility] History of Present illness Narrative EARLY VISIT Oral Fletcher is a 18 year old here [...] in parent's room, does not feel rested Dovray since delivery: Not resumed Emotional support: Yes [...] for 6 week visit and as needed Tran Gaytan APRN.CNM documented in this encounter [facility] 05-27-2024 Note [facility] Medical Records Department [address] [place] [address] Discharge Summary 05/27/24 0711 MR#: [id number] Acct: [id number] Name: ORAL FLETCHER Rep #: [id number] : 2005 18 From: Amelia Maya MD PCP: Care Physician,No Primary Status:ADM IN Location: [id number] Providers Date of Admission: 05/25/24 Date of [...] 1-2 and 6 weeks or as needed. [phone] Meaningful Use Info Meaningful Use Meaningful Use [...] Reason for Your Visit: labor Attending Provider: Cherry Simons Primary Care Provider: Care Physician,No Primary Discharge Orders/Prescriptions Prescriptions: New sennosides-docusate sodium [...] No Primary Care Physician Signed [facility] 05-26-2024 Note HNO ID: [id number] Author: TOSHIA LACY RN Service: ? Author Type: Registered Nurse Type: Progress Notes Filed: 05/26/2024 08:50 Note Text: Patient delivered via by Dr[facility] Schuler [facility] 05[facility]25/24 at [facility]. See OB history. Toshia Lacy RN [facility] 05-26-2024 History of Present illness Narrative Patient delivered via by Dr. Schuler on 05/25/24 at [facility]. See OB history. Toshia Lacy RN documented in this encounter [facility] 05-26-2024 Telephone encounter Note Closing encounter. Patient delivered. Ld Duckworth MA [facility] 05-26-2024 Miscellaneous Notes Closing encounter. Patient delivered. Ld Duckworth MA documented in this encounter [facility] 05-25-2024 Telephone encounter Note Patient went to l&d for evaluation [facility] 05-25-2024 Miscellaneous Notes Patient went to [...] contractions remain regular. documented in this encounter [facility] 05-25-2024 Evaluation note Diagnosis Onset Date Resolution (spontaneous vaginal delivery) acute May 25, 025 11:24am 37 weeks gestation of resolved May 25 11:24am History of depression resolved May 11:24am Rubella non-immune status, antepartum resolved May 25, 2024 11:24am [facility] Work Phone: 1(399) 743-662801-07-2025 Telephone encounter Note* Telephone Encounter - Nora [...] go to L&D in contractions remain regular. [facility]12-31-2024 Progress note* Quick Notes - Cherry Coleman MD - 05/18/2024 2:55 PM EST DM-Pt doing well. Denies vaginal Bleeding, Leaking fluid, or regular Contractions. Pt reports good movement Physical Exam: Gen: female in no apparent distress Abd: soft, Gravid. Non tender to palpation. See flow sheet Vertex on bedside ultrasound. The sensitive examination was discussed with the Patient or Patient's Authorized Homeworker. Asapplicable, any other physician, advance practice provider, medical student, or other health professional student that will be observing or involved in the sensitive examination for educational or training purposes was discussed with the Patient or Authorized Homeworker. The Patient or Authorized Homeworker has agreed to proceed with the sensitive [...] of Orders: ROUTINE, GROUP B STREP PCR Cherry Simons MD [facility] Work Phone: 1(798) 599-565112-31-2024 Miscellaneous Notes* Quick Notes - Cherry Coleman MD - 05/18/2024 2:55 PM EST DM-Pt doing well. Denies vaginal Bleeding, Leaking fluid, or regular Contractions. Pt reports good movement Physical Exam: Gen: female in no apparent distress Abd: soft, Gravid. Non tender to palpation. See flow sheet Vertex on bedside ultrasound. The sensitive examination was discussed with the Patient or Patient's Authorized Homeworker. Asapplicable, any other physician, advance practice provider, medical student, or other health professional student that will be observing or involved in the sensitive examination for educational or training purposes was discussed with the Patient or Authorized Homeworker. The Patient or Authorized Homeworker has agreed to proceed with the sensitive [...] of Orders: ROUTINE, GROUP B STREP PCR Cherry Simons MD [facility] Instructions* Patient Instructions* Buzz Muhammad MA - 05/18/2024 2:30 PM EST SEQUENTIAL SCREENINGS The [facility] offers sequential screenings for women who [...] testing. It will require an appointment withour installation and repair technician. This is not an ultrasound performed [...] the above symptoms, contact our office at [phone] and ask to speak with anurse. After hours, you can call doctors registry at [phone] OR call [facility] at [phone] ask to have the doctor economic history teacher paged. If you consider this an emergency, dial 9--1 or go to your nearest emergency department. NEED HELP? Are you dealing with a violent or abusive relationship? Are you a victim of rape or sexual assult? Call [facility] ([place]) 24 hour Crisis Hotline: 775.270.3261 or [phone]. MANUAL Your Guide to a Healthy manual is now on-line. Visit [facility].org/HealthyPregnancyGuide to download your free copy documented in [facility]12[facility] Miscellaneous Notes* Quick Notes - Anitra Caldwell APRN.CNM - 05/11/2024 10:30 AM EST BAKARI-S: Oral Fletcher is a 18 year old female [...] size-date discrepancy in third trimester -Growth US 04/21 normal PTL precautions reviewed and when to call RTO in one week Anitra Caldwell APRN.CNM documented [facility] Progress note* Quick Notes - Anitra Caldwell APRN.CNM - 05/11/2024 10:30 AM EST BAKARI-S: Orla Fletcher is a 18 year old female [...] size-date discrepancy in third trimester -Growth US 04/21 normal PTL precautions reviewed and when to call RTO in one week Anitra Caldwell APRN.CNM [facility]12-24-2024 Instructions* Patient Instructions* Anitra Caldwell APRN.CNM [...] for Disease Control and Prevention: www.cdc.gov/groupbstrep/ July Dim http://www.marchofdimes.org//g gmxc-l-szksr-infection.aspx Preparing for labor: Eat dates to promote [...] easy pie crust in the food and beverage operations manager. Add soaked dates to homemade nut butter for a sweet treat. Add dates to suzy homemade salad dressing. Add dates during easily with these yummy (paleo friendly) bars made from dates. What Is Red Raspberry [place] Tea? Red raspberry leaf tea comes from [...] , and too. How Much Red Raspberry [place] Tea to Drink? With your doctor or used equipment sales representative s approval, start with 1 cup of [...] because of uterine cramping. Is Red Raspberry [place] Tea the Same as Raspberry [place] Tea? How About Plain Old Raspberry Tea? Sometimes. You really need to look at the ingredients to be sure. Note that there is no difference between red raspberry leaf and raspberry leaf. Stilnest or [employer] Raspberry [place] Tea are two good brands. The red [...] of RRLT outlined in this article. [employer] www.HCI.EpicTopic I named this 'circuit' after my friend [...] sideways, 2 at a time, (have a harness brusher downstairs of you!), take a walk outside [...] the pelvis. Hayley Sen: Circuit Creator - www.rockportHenley-Putnam Universitychristianacarebirthcollective.EpicTopic April Saab, JORGE, BDT (BEBA), LCCE, FACCE: Supporting Content - www.Nimbitnakita.EpicTopic Rob[address]: Photography - www.checoGummiiwChorPpay.EpicTopic Kristen Anderson CD/CDT (LISSY): Print and Corrosion Engineer - www.Creative Brain Studios Circuit Masterminds The [employer]MoDx Molecular [employer] www.HCI.EpicTopic PERINEAL MASSAGE GOAL: Often, the perineum, or [...] gestation until hospitalization for labor/delivery of the infant. 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 RESOURCES: perineal massage. [facility]: [facility]. Cancer Research UK and Amada44 - Own work based on: Diagram showing the anatomy of the vulva ARTIE 285.svg by Cancer Research UK.., CC BY-SA 3.0, https://commons.TSO3.org/w/index.php?bjffo=55045097 Faustino Database of Systematic Reviews . perineal massage for reducing perineal trauma. [place] Systematic Review - Intervention Version published: 15 September 2012. https://doi-org.ccmain.michigannet.org/10.1002/12971569.FZ887574.pub3 Galindo Cid et al. Effectiveness of perineal massage in reducing perineal trauma and post- morbidities: A randomized controlled trial: Journal of Obstetrics and Gynecology Research. 44 (0). 0422-3490. 2018. SIGNS AND SYMPTOMS OF LABOR 1. Contractions every 10 minutes or more often 2. Clear, pink, or brownish fluid (water) leaking from vagina 3. Feeling that baby is pushing down, pressure 4. Low, dull backache 5. Cramps that feel like a period 6. Cramps with or without diarrhea If you notice any of the above symptoms, contact our office at [phone] and ask to speak with anurse. After hours, you can call doctors registry at [phone] OR call [facility] at [phone] ask to have the doctor economic history teacher paged. If you consider this an emergency, dial 9-1-1 or go to your nearest emergency department. NEED HELP? Are you dealing with a violent or abusive relationship? Are you a victim of rape or sexual assult? Call [facility] ([place] 24 hour Crisis Hotline: 615.642.3779 or 021-944-5423. MANUAL Your Guide to a Healthy manual is now on-line. Visit [email or web address]/HealthyPregnancyGuide to download your free copy documented in this encounterHenry [facility] Hospital12-18-[facility]24 Instructions* Patient Instructions* Ld Duckworth MA - 05/05/2024 1:43 PM EST SEQUENTIAL SCREENINGS [facility] offers sequential screenings for women who [...] testing. It will require an appointment withour installation and repair technician. This is not an ultrasound performed [...] the above symptoms, contact our office at [phone] and ask to speak with anurse. After hours, you can call doctors registry at [phone] OR call [facility] at [phone] ask to have the doctor economic history teacher paged. If you consider this an emergency, dial 9-1-6 or go to your nearest emergency department. NEED HELP? Are you dealing with a violent or abusive relationship? Are you a victim of rape or sexual assult? Call [facility] ([place] 24 hour Crisis Hotline: 514.933.1088 or 144-844-0683. MANUAL Your Guide to a Healthy manual is now on-line. Visit [email or web address]/HealthyPregnancyGuide to download your free copy documented in this encounterHenry County Hospital12-18-2024 Progress note* Quick Notes - Tran Gaytan APRN.CNM - 05/05/2024 12:38 PM EST CP- CENTERING S: Oral Fletcher is a 18 year old female [...] call office - RTO 1 week for SD with GBS Tran Gaytan APRN.CNM [facility]12-18-2024 Miscellaneous Notes* Quick Notes - Tran Gaytan APRN.CNM - 05/05/2024 12:38 PM EST CP- CENTERING S: Oral Fletcher is a 18 year old female [...] call office - RTO 1 week for SD with GBS Tran Gaytan APRN.CNM documented in this encounterHenry County Hospital12-05-2024 Telephone encounter Note * Telephone Encounter - Amelia Armstrong RN - 04/22/2024 9:22 AM EST 3rd risk assessment form submitted 04/22/2024. Amelia Armstrong RN [facility]12-05-2024 Miscellaneous Notes* Telephone Encounter - Amelia Armstrong RN - 04/22/2024 9:22 AM EST 3rd risk assessment form submitted 04/22/2024. Amelia Armstrong RN documented in this encounterHenry County Hospital12-04-2024 Note Indication Follow-up evaluation for placental [...] Wants to know sex: yes Performed By: Gurdeep Partida RDMS, RVT Read By: Deandra Reza M.D.MATERNAL [id number] Miscellaneous Notes* Quick Notes - Tran Gaytan APRN.KM - 04/21/2024 2:30 PM EST CP- CENTERING S: Oral Fletcher is a 18 year old female [...] - PTL precautions reviewed RTO 2 weeks Tran Gaytan APRN.CNM documented in this encounterHenry County Hospital12-04-2024 Progress note* Quick Notes - Tran Gaytan APRN.CNM - 04/21/2024 2:30 PM EST CP- CENTERING S: Oral Fletcher is a 18 year old female [...] - PTL precautions reviewed RTO 2 weeks Tran Gaytan APRN.CNM [facility]12-04-2024 Instructions* Patient Instructions* Ld Duckworth MA - 04/21/2024 2:04 PM EST SEQUENTIAL SCREENINGS [facility] offers sequential screenings for women who [...] testing. It will require an appointment withour installation and repair technician. This is not an ultrasound performed [...] the above symptoms, contact our office at [phone] and ask to speak with anurse. After hours, you can call doctors registry at [phone] OR call [facility] at [phone] ask to have the doctor economic history teacher paged. If you consider this an emergency, dial 5-7-8 or go to your nearest emergency department. NEED HELP? Are you dealing with a violent or abusive relationship? Are you a victim of rape or sexual assult? Call [facility] 24 hour Crisis Hotline: 823.111.8675 or 609-870-7471. MANUAL Your Guide to a Healthy manual is now on-line. Visit [email or web address]/HealthyPregnancyGuide to download your free copy documented in this encounterHenry County Hospital11-18-2024 NoteHNO ID: [id number] Author: ZAIN KEARNEY PT Service: ? Author Type: Physical Therapist Type: Progress Notes Filed: 04/05/2024 07:11 Note Text: 04/05/2024 [facility] PHYSICAL THERAPY DISCONTINUANCE [...] or scheduled additional follow-up appointments. Zain Kearney, [facility]11-11-2024 Progress note* Quick Notes - Tran Gaytan APRN.CNM - 03/29/2024 3:42 PM EST S: Oral Fletcher is a 18 year old female [...] PTL precautions reviewed - RTO 2 weeks Tran Gaytan APRN.CNM [facility]11-11-2024 Miscellaneous Notes* Quick Notes - Tran Gaytan APRN.CNM - 03/29/2024 3:42 PM EST S: Oral Fletcher is a 18 year old female [...] PTL precautions reviewed - RTO 2 weeks Tran Gaytan APRN.CNM documented in this encounterHenry County Hospital11-11-2024 Instructions* Patient Instructions* Roro Sanz MA - 03/29/2024 3:30 PM EST SEQUENTIAL SCREENINGS [facility] offers sequential screenings for women who [...] testing. It will require an appointment withour installation and repair technician. This is not an ultrasound performed [...] the above symptoms, contact our office at [phone] and ask to speak with anurse. After hours, you can call doctors registry at [phone] OR call [facility] at [phone] ask to have the doctor economic history teacher paged. If you consider this an emergency, dial 01-17-2 or go to your nearest emergency department. NEED HELP? Are you dealing with a violent or abusive relationship? Are you a victim of rape or sexual assult? Call [facility] 24 hour Crisis Hotline: 884.598.2345 or 858-023-8261. MANUAL Your Guide to a Healthy manual is now on-line. Visit [email or web address]/HealthyPregnancyGuide to download your free copy documented in this encounterHenry County Hospital11-07-2024 Telephone encounter Note * Telephone Encounter - Gurdeep Somers RN - 03/25/2024 3:04 PM EST Lab notified along with patient. Gurdeep Somers RN [facility]11-07-2024 Miscellaneous Notes* Telephone Encounter - Gurdeep Somers RN - 03/25/2024 3:04 PM EST Lab notified along with patient. Gurdeep Somers RN * Telephone Encounter - Robson Romero APRN.CNP - 03/25/2024 2:58 PM EST Even if 3 hour is elevated, passed GTT. 2 hour is 60. Patient does not need do have last draw - recommend eating something. Please call lab/notify patient. Robson Romero APRN.CNP documented in this encounterHenry County Hospital11-07-2024 Telephone encounter Note * Telephone Encounter - Robson Romero APRN.CNP - 03/25/2024 2:58 PM EST Even if 3 hour is elevated, passed GTT. 2 hour is 60. Patient does not need do have last draw - recommend eating something. Please call lab/notify patient. Robson Romero APRN.CNP [facility]11-01-2024 Telephone encounter Note* Telephone Encounter - Amelia Martinez RN - 03/19/2024 2:47 PM EDT Called patient. OB visit scheduled. Amelia Martinez RN [facility]11-01-2024 Miscellaneous Notes* Telephone Encounter - Amelia Martinez RN - 03/19/2024 2:47 PM EDT Called patient. OB visit scheduled. Amelia Martinez RN * Telephone Encounter - Anitra Caldwell APRN.CNM - 03/19/2024 1:01 PM EDT Can you please assist patient in getting SD visit 2 weeks from last visit. She is not scheduled. This will need scheduled out side of centering due to gestational age. Thanks, Anitra Caldwell APRN.CNM documented in this encounterHenry County Hospital11-01-2024 Telephone encounter Note * Telephone Encounter - Anitra Caldwell APRN.CNM - 03/19/2024 1:01 PM EDT Can you please assist patient in getting SD visit 2 weeks from last visit. She is not scheduled. This will need scheduled out side of centering due to gestational age. Aliyah, Anitra Caldwell APRN.CNM [facility]11-01-2024 Progress note* Quick Notes - Anitra Caldwell APRN.CNM - 03/19/2024 12:55 PM EDT BAKARI-S: Oral Fletcher is a 18 year old female [...] RTO in 2 weeks Anitra Caldwell APRN.CNM [facility]11-01-2024 Miscellaneous Notes* Quick Notes - Anitra Caldwell APRN.CNM - 03/19/2024 12:55 PM EDT BAKARI-S: Oral Fletcher is a 18 year old female [...] weeks Anitra Caldwell APRN.CNM documented in this encounterHenry County Hospital10-31-2024 NoteHNO ID: [id number] Author: NEETA REY PA-C Service: ? Author Type: Physician Call Or Contact Centre Operator Type: Progress Notes Filed: 03/18/2024 13:36 Note Text: This note was created using Docstocriter. Subjective Oral Fletcher is a 18 year old female. [...] Take 50 mg by mouth once daily. Uslxiyhl-Nr-Fkx-Fe-FA tab Take 1 tablet by mouth once [...] ROUTINE - STREP A MOLECULAR (POC) [facility]10-31-2024 History of Present illness Narrative* Neeta eRy PA-C - 03/18/2024 1:34 PM EDT This note was created using NoteWriter. Subjective Oral Fletcher is a 18 year old female. [...] Take 50 mg by mouth once daily. Nkskllaa-Fm-Tsr-Fe-FA tab Take 1 tablet by mouth once [...] (POC) Neeta Rey PA-C documented in this encounterHenry County Hospital10-29-2024 NoteHNO ID: [id number] Author: BUZZ UMHAMMAD MA Service: ? Author Type: Mineral Engineer Type: Progress Notes Filed: 03/19/2024 13:01 Note Text: Patient identified by name and date of . Oral Fletcher presents today for a vaccination of Tdap. Patient denies an allergy to latex: yes Patient denies a severe (life-threatening) allergy to a previous dose of Tdap, DTP, DTaP, DT or Td vaccine. Yes Patient denies history of epilepsy or neurological problems: Yes Patient is afebrile and denies being moderately or severely ill: Yes Patient denies history of Guillain-Cantwell Syndrome (a severe paralytic illness): Yes Tdap Adacel injection was given without incident. See immunizations for details of immunizations administered today. VIS sheet provided: Yes Provider Jaquelin was present in office at time of injection. Buzz Muhammad [facility]10-29-2024 History of Present illness Narrative* Buzz Muhammad MA - 03/16/2024 3:50 PM EDT Patient identified by name and date of . Oral Fletcher presents today for a vaccination of Tdap. Patient denies an allergy to latex: yes Patient denies a severe (life-threatening) allergy to a previous dose of Tdap, DTP, DTaP, DT or Td vaccine. Yes Patient denies history of epilepsy or neurological problems: Yes Patient is afebrile and denies being moderately or severely ill: Yes Patient denies history of Guillain-Cantwell Syndrome (a severe paralytic illness): Yes Tdap Adacel injection was given without incident. See immunizations for details of immunizations administered today. VIS sheet provided: Yes Provider Jaquelin was present in office at time of injection. Buzz Muhammad MA documented in this encounterHenry County Hospital10-29-2024 Instructions* Patient Instructions* Buzz Muhammad MA - 03/16/2024 3:20 PM EDT SEQUENTIAL SCREENINGS [facility] offers sequential screenings for women who [...] testing. It will require an appointment withour installation and repair technician. This is not an ultrasound performed [...] the above symptoms, contact our office at [phone] and ask to speak with anurse. After hours, you can call [employer] registry at [phone] OR call [facility] at [phone] ask to have the doctor economic history teacher paged. If you consider this an emergency, dial 2-3-2 or go to your nearest emergency department. NEED HELP? Are you dealing with a violent or abusive relationship? Are you a victim of rape or sexual assult? Call [facility] 24 hour Crisis Hotline: 688.123.2018 or 033-886-9254. MANUAL Your Guide to a Healthy manual is now on-line. Visit [email or web address]/HealthyPregnancyGuide to download your free copy documented in this encounterHenry County Hospital10-09-2024 Instructions* Patient Instructions* Nadine Teresa MA - 02/25/2024 2:22 PM EDT SEQUENTIAL SCREENINGS [facility] offers sequential screenings for women who [...] testing. It will require an appointment withour installation and repair technician. This is not an ultrasound performed [...] the above symptoms, contact our office at [phone] and ask to speak with anurse. After hours, you can call doctors registry at [phone] OR call [facility] at [phone] ask to have the doctor economic history teacher paged. If you consider this an emergency, dial 9--1 or go to your nearest emergency department. NEED HELP? Are you dealing with a violent or abusive relationship? Are you a victim of rape or sexual assult? Call [facility] 24 hour Crisis Hotline: 998.416.6296 or 890-771-0271. MANUAL Your Guide to a Healthy manual is now on-line. Visit [email or web address] to download your free copy documented in this encounterHenry County Hospital10-09-2024 Telephone encounter Note * Telephone Encounter [...] scheduled with the correct #5 centering group. [facility]10-09-2024 Miscellaneous Notes* Telephone Encounter - Tierra Way RN - 02/25/2024 8:28 AM EDT Left message for patient to return phone call. Patient is scheduled today for Centering. Please lether know that this is group 4 of [...] correct #5 centering group. documented in this encounterHenry County Hospital10-09-2024 Progress note* Quick Notes - Tran Gaytan APRN.CNM - 02/25/2024 7:54 AM EDT CP- CENTERING S: Oral Fletcher is a 18 year old female [...] PTL precautions reviewed - RTO 4 weeks Tran Gaytan APRN.CNM [facility]10-09-2024 Miscellaneous Notes* Quick Notes - Tran Gaytan APRN.CNM - 02/25/2024 7:54 AM EDT CP- CENTERING S: Oral Fletcher is a 18 year old female [...] PTL precautions reviewed - RTO 4 weeks Tran Gaytan APRN.CNM documented in this encounterHenry County Hospital09-10-2024 Telephone encounter Note * Telephone Encounter - Toshia Lacy RN - 01/27/2024 1:45 PM EDT Patient notified. Toshia Lacy RN [facility]09-10-2024 Miscellaneous Notes* Telephone Encounter - Toshia Lacy RN - 01/27/2024 1:45 PM EDT Patient notified. Toshia Lacy RN * Telephone Encounter - Kayla Carlton RN - 01/26/2024 12:21 PM EDT Left message for patient to call office. Kayla Carlton RN * Telephone Encounter - Kayla Carlton RN - 01/26/2024 12:21 PM EDT ----- Message from Anitra Caldwell APRN.CNM sent at 01/26/2024 11:43 AM EDT ----- Anatomy ultrasound reviewed. Please assist in scheduling follow up US at 32 weeks for placental location. Please place copy in OB chart. Anitra Caldwell APRN.CNM documented in this encounterHenry County Hospital09-09-2024 Telephone encounter Note * Telephone Encounter - Kayla Carlton RN - 01/26/2024 12:21 PM EDT Left message for patient to call office. Kayla Carlton RN [facility]09-09-2024 Telephone encounter Note* Telephone Encounter - Kayla Carlton RN - 01/26/2024 12:21 PM EDT ----- Message from Anitra Caldwell APRN.CNM sent at 01/26/2024 11:43 AM EDT ----- Anatomy ultrasound reviewed. Please assist in scheduling follow up US at 32 weeks for placental location. Please place copy in OB chart. Anitra Caldwell APRN.ELIAZAR [facility]09-09-2024 Telephone encounter Note* Telephone Encounter - Amelia Armstrong RN - 01/26/2024 8:46 AM EDT 2nd risk assessment form submitted 01/26/2024. Amelia Armstrong RN [facility]09-09-2024 Miscellaneous Notes* Telephone Encounter - Amelia Armstrong RN - 01/26/2024 8:46 AM EDT 2nd risk assessment form submitted 01/26/2024. Amelia Armstrong RN documented in this encounterHenry County Hospital09-06-2024 Instructions* Patient Instructions* Anitra Caldwell APRN.CNM [...] the above symptoms, contact our office at [phone] and ask to speak with anurse. After hours, you can call [facility] at [phone] OR call [facility] at [phone] ask to have the doctor economic history teacher paged. If you consider this an emergency, dial 9-1-6 or go to your nearest emergency department. NEED HELP? Are you dealing with a violent or abusive relationship? Are you a victim of rape or sexual assult? Call [facility] 24 hour Crisis Hotline: 351.468.4539 or 600-035-4719. MANUAL Your Guide to a Healthy manual is now on-line. Visit [email or web address]/HealthyPregnancyGuide to download your free copy documented in this encounterHenry County Hospital09-06-2024 Progress note* Quick Notes - Anitra Caldwell APRN.CNM - 01/23/2024 9:58 AM EDT BAKARI-S: Oral Fletcher is a 18 year old female [...] call -RTO in 4wk Anitra Caldwell APRN.CNM [facility]09-06-2024 Miscellaneous Notes* Quick Notes - Anitra Caldwell APRN.CNM - 01/23/2024 9:58 AM EDT BAKARI-S: Oral Fletcher is a 18 year old female [...] 4wk Anitra Caldwell APRN.CNM documented in this encounterHenry County Hospital08-06-2024 Progress note* Quick Notes - Anitra Caldwell APRN.CNM - 12/23/2023 10:29 AM EDT BAKARI-S: Oral Fletcher is a 18 year old female [...] and when to call -RTO in 4wk Anirta Caldwell APRN.CNM [facility]08-06-2024 Miscellaneous Notes* Quick Notes - Anitra Caldwell APRN.CNM - 12/23/2023 10:29 AM EDT BAKARI-S: Oral Fletcher is a 18 year old female [...] 4wk Anitra Caldwell APRN.CNM documented in this encounterHenry County Hospital08-06-2024 Instructions* Patient Instructions* Ld Duckworth MA - 12/23/2023 10:16 AM EDT SEQUENTIAL SCREENINGS [facility] offers sequential screenings for women who [...] testing. It will require an appointment withour installation and repair technician. This is not an ultrasound performed [...] the above symptoms, contact our office at [phone] and ask to speak with anurse. After hours, you can call doctors registry at [phone] OR call [facility] at [phone] ask to have the doctor economic history teacher paged. If you consider this an emergency, dial 7-1-9 or go to your nearest emergency department. NEED HELP? Are you dealing with a violent or abusive relationship? Are you a victim of rape or sexual assult? Call [facility] 24 hour Crisis Hotline: 578.164.1351 or 013-483-6805. MANUAL Your Guide to a Healthy manual is now on-line. Visit [email or web address]/HealthyPregnancyGuide to download your free copy documented in this encounterHenry County Hospital07-26-2024 NoteHNO ID: [id number] Author: JOSEPH HSU APRN.RADIOLOGIST CHIEF OF BREAST IMAGING Service: ? Author Type: Nurse Practitioner Type: Progress Notes Filed: 12/12/2023 15:31 Note Text: Subjective HPI HPI Oral Fletcher is a 18 year old female who presents today for CC of nausea/vomiting, is 14 weeks . Currently prescribed multiple anti nausea medications from before school. Tolerating fluids/solids, last void was just before [...] Take 1 tablet by mouth once daily. Ztzaaqbx-Ou-Tyx-Fe-FA tab Take 1 tablet by mouth once [...] ICD10: R11.0 Continue taking medication ordered by imaging clerk Red flag s/s discussed Work note provided Joseph Hsu [facility]N.[facility] History of Present illness Narrative* Joseph Hsu APRN.RADIOLOGIST CHIEF OF BREAST IMAGING - 12/12/2023 3:05 PM EDT Subjective HPI HPI Oral Fletcher is a 18 year old female who presents today for CC of nausea/vomiting, is 14 weeks. Currently prescribed multiple anti nausea medications from before school. Tolerating fluids/solids, last void was just before [...] Take 1 tablet by mouth once daily. Dtbsdtdc-Ik-Hpd-Fe-FA tab Take 1 tablet by mouth once [...] ICD10: R11.0 Continue taking medication ordered by imaging clerk Red flag s/s discussed Work note provided Joseph Hsu APRN.CNP documented in this encounterHenry County Hospital07-24-2024 Telephone encounter Note * Telephone Encounter - Kayla Carlton RN - 12/10/2023 9:34 AM EDT Pt notified and voiced understanding. Kayla Carlton RN [facility]07-24-2024 Miscellaneous Notes* Telephone Encounter - Kayla Carlton RN - 12/10/2023 9:34 AM EDT Pt notified and voiced understanding. Kayla Carlton RN * Telephone Encounter - Anitra [...] beprescribed? Amelia Martinez RN documented in this encounterHenry County Hospital07-24-2024 Telephone encounter Note * Telephone Encounter [...] IV hydrationas an option. Anitra Caldwell APRN.CNM [facility]07-23-2024 Telephone encounter Note* Telephone Encounter - [...] medication she can beprescribed? Amelia Martinez RN [facility]07-12-2024 Instructions* Patient Instructions* Lisa Alamo LPN - 11/28/2023 2:17 PM EDT SEQUENTIAL SCREENINGS [facility] offers sequential screenings for women who [...] testing. It will require an appointment withour installation and repair technician. This is not an ultrasound performed [...] the above symptoms, contact our office at [phone] and ask to speak with anurse. After hours, you can call doctors registry at [phone] OR call [facility] at [phone] ask to have the doctor economic history teacher paged. If you consider this an emergency, dial 9-1- or go to your nearest emergency department. NEED HELP? Are you dealing with a violent or abusive relationship? Are you a victim of rape or sexual assult? Call [facility] 24 hour Crisis Hotline: 546.656.8056 or 468-987-9338. MANUAL Your Guide to a Healthy manual is now on-line. Visit [email or web address]/HealthyPregnancyGuide to download your free copy documented in this encounterHenry County Hospital07-12-2024 Progress note* Quick Notes - Anitra Caldwell APRN.CNM - 11/28/2023 1:49 PM EDT BAKARI-S: Oral Fletcher is a 18 year old female [...] -RTO in 4 weeks Anitra Caldwell APRN.CNM [facility]07-12-2024 Miscellaneous Notes* Quick Notes - Anitra Caldwell APRN.CNM - 11/28/2023 1:49 PM EDT ISHAS: Oral Fletcher is a 18 year old female [...] weeks Anitra Caldwell APRN.CNM documented in this encounterHenry County Hospital07-12-2024 Telephone encounter Note * Telephone Encounter - Anitra Caldwell APRN.CNM - 11/28/2023 12:57 PM EDT Order signed. Anitra Caldwell APRN.CNM [facility]07-12-2024 Miscellaneous Notes* Telephone Encounter - Anitra Caldwell APRN.CNM - 11/28/2023 12:57 PM EDT Order signed. Anitra Caldwell APRN.CNM * Telephone Encounter - Kayla Carlton RN - 11/28/2023 12:33 PM EDT Pt is having Nuchal scan done today and needs order. Kayla Carlton RN documented in this encounterHenry County Hospital07-12-2024 Telephone encounter Note * Telephone Encounter - Kayla Carlton RN - 11/28/2023 12:33 PM EDT Pt is having Nuchal scan done today and needs order. Kayla Carlton RN [facility]07-02-2024 Telephone encounter Note* Telephone Encounter - Cristy Oliver RN - 11/18/2023 9:47 AM EDT 1st risk assessment form submitted November 18, 2023. TRUE Ochoa, RN OB Clinical Navigator [phone] [facility]07-02-2024 Miscellaneous Notes* Telephone Encounter - Cristy Oliver RN - 11/18/2023 9:47 AM EDT 1st risk assessment form submitted November 18, 2023. TRUE Ochoa, RN OB Clinical Navigator [phone] documented in this encounterHenry County Hospital07-01-2024 Progress note* Quick Notes - Anitra Caldwell APRN.CNM - 11/17/2023 9:47 AM EDT NOB, see progress note. Interested in Centering. Would like aneuploidy screening, will verify next visit. Anitra Caldwell APRN.CNM [facility]07-01-2024 Miscellaneous Notes* Quick Notes - Anitra Caldwell APRN.CNM - 11/17/2023 9:47 AM EDT NOB, see progress note. Interested in Centering. Would like aneuploidy screening, will verify next visit. Anitra Caldwell APRN.CNM documented in this encounterHenry County Hospital06-28-2024 Instructions* Patient Instructions* Anitra Caldwell APRN.CNM - 11/14/2023 1:03 PM EDT Please select the following link to access the [facility] Your Guide to a Healthy . [email or web address] Aspirin 81mg by mouth once daily after 12 weeks documented in this encounterHenry County [facility] History of Present illness Narrative* Nora Haile LPN - 11/14/2023 11:32 AM EDT OB point of care ultrasound was performed. See imaging tab for details. Nora Haile LPN * Anitra Caldwell APRN.CNM - 11/13/2023 3:36 PM EDT INITIAL OB ASSESSMENT HPI: Oral is a 18 year old White Female here to establish Obstetrical Care. Patient's last menstrual period was 08/21/2023 (approximate). from OB Dating Form. Approximate LMP, uncertain of this as she was irregular and not tracking. [facility]. US showed 6 weeks while LMP was 8w5d and inconsistent. was unplanned but accepted-excited Complaints: (!) Severe nausea/vomiting ([facility]-feeling better on Zofran) OB History T0 L0 [...] Partner: Name: Royce Mercado Age: 18 Occupation: [employer] Gender: Male PAST MEDICAL HISTORY Diagnosis Date [...] hemoglobin electrophoresis. Patient: Accepts Reviewed midwifery and burning plant operator services that are available. 2) Screening: Hemoglobin [...] prn. Anitra Caldwell APRN.CNM documented in this encounterHenry [facility]06-[facility] Telephone encounter Note * Telephone Encounter - Tierra Way RN - 11/13/2023 1:06 PM EDT Attempted to call patient x2 with no answer. Left voicemail to return phone call [facility]-27[facility] Miscellaneous Notes* Telephone Encounter - Tierra [...] voicemail. Samra Fatima MA documented in this encounterHenry [facility] Hospital06-27-2024 Telephone encounter Note * Telephone Encounter - Tierra Way RN - 11/13/2023 10:46 AM EDT Called patient back and I will plan on completing OB intake questions at 1:00 today [facility]06-27-[facility]24 Telephone encounter Note* Telephone Encounter - Samra Fatima MA - 11/13/2023 9:19 AM EDT Attempted to call patient to go over new ob intake questions. No answer; left voicemail. Samra Fatima MA [facility]06-25-[facility] History of Present illness Narrative* Gretchen Brower OD - 11/11/2023 10:56 AM EDT 1. Myopia, [...] new flashes/floaters or changes in vision Gretchen Brower OD November 11, 2023 10:56 AM documented in this encounterHenry [facility] Hospital06-19-2024 History of Present illness Narrative* Joseph Hsu APRN.CNP - 11/05/2023 12:13 PM EDT Patient triaged at express care. Here today with continued vomiting, seen in express care last week/remedies attempted, now having dizziness. Is 9 weeks . I will refer to ER. In no apparent distress at time of triage. documented in this encounterHenry County Hospital06-08-2024 Instructions* Patient Instructions* Floyd Louise APRN.CNP - 10/25/2023 12:51 PM EDT Nausea and vomiting Doxylamine (Unisom Sleeptab) Vitamin B6 25mg three times per day in combination with doxylamine 12.5mg at bedtime to prevent nausea. Kathi extract 125-250mg every six hours. documented in this encounterHenry County Hospital06-08-2024 History of Present illness Narrative* Floyd Louise APRN.CNP - 10/25/2023 12:46 PM EDT Subjective HPI Nontoxic-appearing 7-week female presents urgent care chief complaint nausea. Duration of symptoms last 2 to 3 days. Associated symptoms nausea. States nausea is worse in the morning. Has not been seen by RUBBER GOODS INSPECTOR at this point. Has tried some OTC [...] No evidence of dehydration. Will beestablished with RUBBER GOODS INSPECTOR at the end of today's visit. Recommended [...] of care. This note was generated using Comuto software. It may contain errors in wording, punctuation, or spelling. Floyd Louise APRN.CLAUDIA documented in this encounterHenry County Hospital04-16-2024 History of Present illness Narrative* Raysa Bennett PTA - 09/02/2023 2:14 PM EDT Program_ID:[id number] Access Code: [email or web address] URL: [email or web address]/ Date: 09-02-2023 Prepared By: Zain Kearney Program [...] 2 sets - 10 reps * Zain Kearney PT - 09/02/2023 2:00 PM EDT Episode [...] 1441 DUARTE Ventura PT documented in this encounterHenry County Hospital04-12-2024 History of Present illness Narrative* Jennifer Earl RT(R) - 08/29/2023 10:00 AM EDT Radiology Service Progress Note PATIENT NAME: Oral Fletcher DATE OF SERVICE: August 29, 2023 [...] PATIENT PRESENTS WITH AN IMPLANTABLE OR ATTACHED PERMASTONE INSTALLER: No RADIOLOGY DEPARTMENT: MR; Exam(s) Completed: Lower MSK: Knee, left PERIPHERAL IV DATA: Not applicable SIGNED BY: RT Dorys(R) August 29, 2023 10:00 AM documented in this encounterHenry County Hospital04-10-2024 History of Present illness Narrative* Zhanna Hazel APRN.RADIOLOGIST CHIEF OF BREAST IMAGING - 08/27/2023 4:47 PM EDT Subjective Patient [...] history is provided by the patient. No corporate attorney was used. Review of Systems Constitutional: Negative. [...] plan. Zhanna Hazel APRN.CLAUDIA documented in this encounterHenry County Hospital04-09-2024 History of Present illness Narrative* Zain Kearney, PT - 08/26/2023 2:51 PM EDT Program_ID:[id number] Access Code: [email or web address] URL: [email or web address]/ Date: 08-26-2023 Prepared By: Zain Kearney Program [...] 10 reps * Zain Kearney, PT - 08/26/2023 2:16 PM EDT Episode Visit Count: 2 Therapist That Will Accept/Oversee The Plan Of Care: Zain Kearney PT Start of Care Date: 08/19/23 Onset Date: 08/18/22 Patient Identified by Name and Date of : Yes REHABILITATION AND SPORTS THERAPY PHYSICAL THERAPY TREATMENT NOTE ASSESSMENT: Oral Fletcher tolerated the session with expected muscle [...] 1455 Zain Kearney PT documented in this encounterHenry County Hospital04-02-2024 History of Present illness Narrative* Zain Kearney PT - 08/19/2023 10:52 AM EDT Program_ID:[id number] Access Code: [email or web address] URL: [email or web address]://[facility]/ Date: 08-19-2023 Prepared By: Zain Kearney Program [...] OF CARE: Assessment: Oral Fletcher presents with chief complaint of L [...] of Care: created on 08/19/23 through 11/11/23 [place] in home exercise program. Perform stairs without [...] Planned: 4 Planned Treatment Interventions: Therapeutic exercise (05640), Neuromuscular re- education (63083), Manual therapy (40806), Gait Training (45247), Patient/Family/Caregiver Education PLAN FOR NEXT VISIT: Assess [...] 1102 Zain Kearney PT documented in this encounterHenry County Hospital03-14-2024 History of Present illness Narrative* Mayda Solares DO - 07/31/2023 2:33 PM EDT Images from the original note were not included. Follow Up Visit Chief Complaint Oral Fletcher is a 17 year old female who presents today for follow up office visit. Patient presents with: Left Knee - Established Patient, Pain History of Present Illness PAIN EVALUATION 07/31/2023 1433 Pain Level: 8 Pain Location: Knee-Left Description: Sharp;Shooting Duration Amount of Time: 5 Duration Units: Months Frequency: Intermittent Intervention/Comfort measure: Massage;Other: See comment stretch HPI: Oral Fletcher is a 17 year old female [...] medications for this visit. Physical Exam Vitals: [facility] 04/02/2023 Psych: Pleasant, good affect and mood [...] space, with a small knee joint effusion. Recording Artist: CHAPARRITA Transcribe Date/Time: Jul 31 2023 2:39P [...] Mayda Solares D.O. M.P.H. documented in this encounterHenry County Hospital03-14-2024 History of Present illness Narrative* Tierra Sales, RT(R) - 07/31/2023 2:30 PM EDT Radiology Service Progress Note PATIENT NAME: Oral Fletcher DATE OF SERVICE: July 31, 2023 [...] PATIENT PRESENTS WITH AN IMPLANTABLE OR ATTACHED PERMASTONE INSTALLER: No RADIOLOGY DEPARTMENT: General X-ray: Exam(s) Completed: Lower Extremity X- Ray(s): Knee, AP / Lat / Tunne / Merchant Left and Wt. Bearing PERIPHERAL IV DATA: Not applicable SIGNED BY: RT Lei(R) July 31, 2023 2:21 PM documented in this encounterHenry County Hospital11-15-2023 History of Present illness Narrative* John [...] severe. John Crowe MD documented in this encounterHenry County Hospital10-03-2023 History of Present illness Narrative* Tierra Sales RT(R) - 02/18/2023 12:20 PM EDT Radiology Service Progress Note PATIENT NAME: Oral [...] 18, 2023 12:13 PM documented in this encounterHenry County Hospital10-03-2023 History of Present illness Narrative* Tierra Sales RT(R) - 02/18/2023 12:00 PM EDT Radiology Service Progress Note PATIENT NAME: Oral [...] 18, 2023 11:57 AM documented in this encounterHenry County Hospital09-06-2023 History of Present illness Narrative* Floyd Louise APRN.RADIOLOGIST CHIEF OF BREAST IMAGING - 01/22/2023 6:17 PM EDT Images from [...] of care. This note was generated using Comuto software. It may contain errors in wording, punctuation, or spelling. Floyd Louise APRN.CLAUDIA documented in this encounterHenry County Hospital07-06-2023 Instructions* Patient Instructions* Floyd Louise APRN.CNP [...] or mouth and then touchesanother person directly (yauf-ni-asai contact) or indirectly (eeal-dd-thntvh, such as doorknob, telephone, toys). It is [...] swallowing or breathing Excessive drooling in an infant or young child Temperature ?101 F or [...] every four months on our web site ([email or web address]). Information below was obtained from Up to date Last literature review version 19.2: September 2010 This topic last updated: January 03, 2010 documented in this encounterHenry County Hospital07-06-2023 History of Present illness Narrative* Floyd Louise APRN.CLAUDIA - 11/21/2022 1:32 PM EDT Subjective HPI Nontoxic-appearing female presents to urgent care with chief complaint of upper respiratory tract like infection. Duration of symptoms 2 days. Associated symptoms sore throat, nasal congestion, nasaldischarge and nonproductive cough. Patient denies the use of any umkm-vbc-wkhhkyk medications or home remedies for symptom management. [...] of care. This note was generated using Comuto software. It may contain errors in wording, punctuation, or spelling. Floyd Louise APRN.CLAUDIA documented in this encounterHenry County Hospital03-17-2023 History of Present illness Narrative* Gretchen Brower, OD - 08/02/2022 11:04 AM EDT 1. Myopia, bilateral A: Good vision, fit, and comfort in current contact lenses. P: Finalized and printed new spec and clrx. Educated pt on proper wear and care of contact lenses. Return to clinic in one year for contact lens evaluation or sooner with any problems. Gretchen Brower, OMID August 02, 2022 11:04 AM documented in this encounterHenry County Hospital11-21-2022 History of Present illness Narrative* Zhanna Hazel APRN.CLAUDIA - 04/08/2022 5:30 PM EST Patient came in with complaints of cat bite on left ring finger. Patient says she is bit yesterday.Patient says is extremely swollen and painful and numb. Upon examining the finger patient does havesignificant swelling and erythema. Patient has yellow-green liquid seeping out around the nail. Patient works at the [employer] should not 100% sure the cat had any of its shots. At this time patient is being sent to the ER due to loss of feeling in the finger swelling and erythema. Patient wasokay with this care plan. documented in this encounterHenry County Hospital10-27-2022 History of Present illness Narrative* Mayda Solares, - 03/14/2022 1:33 PM EDT Follow Up Visit Chief Complaint Oral Fletcher [...] medications for this visit. Physical Exam Vitals: [facility] 01/04/2022 Psych: Pleasant, good affect and mood [...] Denies any pain today. documented in this encounterHenry County Hospital10-19-2022 History of Present illness Narrative* June Shemar, PT - 03/06/2022 11:29 AM EDT Episode [...] 02/04/22 through 04/06/22 Goals updated on 03/06/2022. [place] in [place] exercise program. (Met) Patient will [...] Patient to be seen for Therapeutic exercise (34574);Neuromuscular re-education (14771);Manual therapy (85534);Gait Training (23783);Patient/Family/Caregiver Education PLAN FOR NEXT VISIT: May add [...] 45 June Staton PT documented in this encounterHenry County Hospital10-12-2022 History of Present illness Narrative* June Staton, PT - 02/27/2022 11:20 AM EDT Episode [...] 47 June Staton PT documented in this encounterHenry County Hospital10-10-2022 History of Present illness Narrative* June [...] 45 DUARTE Ventura PT documented in this encounterHenry County Hospital10-07-2022 History of Present illness Narrative* June [...] 45 June Staton PT documented in this encounterHenry County Hospital09-19-2022 History of Present illness Narrative* June [...] of Care: created on 02/04/22 through 04/06/22 [place] in home exercise program. Patient will decrease [...] Planned: 16 Planned Treatment Interventions: Therapeutic exercise (80500);Neuromuscular re- education (87652);Manual therapy (12312);Gait Training (99644);Patient/Family/Caregiver Education;E-Stim Attended/TENS (94034) PLAN FOR NEXT VISIT: Review HEP. Progress [...] 60% weight on L LE. Works at [employer] so lots of walking, attends [employer] and walks a lot at school. Patient Goals: To get back to doing all my activities at work. Functional Limitations: walking in the community;physical activities;recreational activities;sleeping Prior Level of Function: Independent with restrictions Independent with the following restrictions: Knee pain and limitations prior to surgery. 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 Physical Exam Vitals: [facility] 01/04/2022 Psych: Pleasant, good affect and mood [...] plan. All questions answered. documented in this encounterHenry County Hospital09-08-2022 Miscellaneous Notes* Telephone Encounter - Lashay Grace RN - 01/24/2022 8:29 AM EDT Letter faxed to number provided Left detailed message on mom's VM too. Advised to call back with any questions or concerns. * Telephone Encounter - Gurdeep Toscano - 01/24/2022 8:23 AM EDT School nhote composed to excuse her from class from 01/23/22 through 01/25/22. Sent to patients [employer]. Gurdeep Toscano * Telephone Encounter - Delmi Garcia PSS - 01/23/2022 4:57 PM EDT Mom is calling in and is wanting to see if she can get a school excuse typed up for Oral to excuseher.. Definitely would have to be for Friday, mom states Oral went to school yesterday, but was [place]an[place]ito lot of pain so stayed home today.. Please advise. Thank you! PH # is [phone] Could be released through [employer] or mom says we can fax directly to the school. [facility] documented in this encounterHenry County Hospital08-16-2022 Instructions* Patient Instructions* Nataliia Lujan APRN.CLAUDIA - 01/01/2022 1:41 PM EDT PATIENT PREOPERATIVE INSTRUCTIONS Mayda Solares,* has scheduled you for your procedure at this surgery center: [facility]: [phone] --[id number] [place] [address]. Please read below carefully for your personalized [...] Procedures: - YOU MUST HAVE A RESPONSIBLE EXCELLENCE MANAGER TAKE YOU HOME. A AUTOMATION TEST ENGINEER OR HAND GLASS CUTTER CANNOT BE MADE A RESPONSIBLE EXCELLENCE MANAGER. - We recommend that a responsible person [...] Advance Directive, please fax a copy to [phone] or email to for it to be [...] day. Nataliia Lujan APRN.CLAUDIA documented in this encounterHenry County Hospital08-16-2022 History and physical note * Nataliia Lujan APRN.CNP - 01/01/2022 1:40 PM EDT PREANESTHESIA CONSULT CLINIC TELEHEALTH VISIT Patient has been identified by name and date of : Yes This is a virtual visit using [employer] video visit. It require patient-provider interaction for [...] fevers. Neuro: No history of TIA's, stroke, ORGANIZATIONAL DEVELOPMENT SPECIALIST tumor, impaired sensorium, hemiplegia, paraplegia or quadraplegia. No neurological symptoms or problems. Respiratory: No history of current cough or dyspnea, or pneumonia in the past 6 weeks. No history of respiratory/pulmonary symptoms or problems. Cardiovascular: No history of HTN requiring medication, no history of angina, CHF, [place], cardiac surgery or stents. Denies rest pain, [...] > 1 time per night or hematuria CONTROL AND RECOVERY COMBAT RESCUE: Negative for abnormal vaginal bleeding, abnormal vaginal [...] device. I spent more than 0-20 minutes impe-sg-lypf with the patient and over half the time was devoted to counseling and/or coordination of care. This is a virtual visit. It required patient-provider interaction for the medical decision making as documented above. SIGNATURE: Nataliia Lujan APRN.CLAUDIA PATIENT NAME: Oral Fletcher DATE: .01/01/2022 TIME: 1:46 PM PAGER/CONTACT #: documented in this encounterHenry County Hospital2022 Miscellaneous Notes* Telephone Encounter - Otoniel Gates PA-C - 12/26/2021 9:13 AM EDT Confirmed DOS 01/[address] Arteaga/Sujatha case- arthroscopy left knee, arthroscopic assisted removal of loose bodies, chondroplasty, ESTLEA cartilage biopsy, open MPFL reconstruction utilizing semitendinosus allograft. Preoperative expectations reviewed. Patient will need crutches. Virtual PACC. Post op appointments with Dr. Solares 2 weeks post op. PT to start 2 weeks post op. Otoniel Gates PA-C * Telephone Encounter - Nadine Majano Adm - 12/19/2021 4:07 PM EDT pnt mother LVAlexa wanting to sched joint surgery on Left knee [phone]-mom Rosa [phone]-dad Edward documented in this encounterHenry County Hospital07-25-2022 History of Present illness Narrative* Manny [...] year ago. Had MRI on 11/11/20 at [facility] MRI at that time revealed possible [...] with more than 50% of the total wmrh-qm-rvaj time of the visit in counseling / coordination of care. We will coordinate with Dr Solares for combined surgery documented in this encounterHenry County Hospital07-22-2022 Miscellaneous Notes* Telephone Encounter - Chago Rendon - 12/07/2021 8:27 AM EDT Daughter seeing Dr. Arteaga 12/10 then we can move forward with scheduling and the required letter. Message left for mom. * Telephone Encounter - Delmi Garcia [facility] - 12/06/2021 11:34 AM EDT Patients mother is calling in and is requesting paperwork be sent to patients dads email so he can turn this into his higher up. He has a prior engagement and needs this form to get off and help with taking care of Oral afterwards. The email is [email or web address]. The paperwork does not need to give specifics bc of HIPPA, but would need dads name, and the date of surgery for Oral. Please advise. They are saying they need this before the weekend.. Thank you! documented in this encounterHenry County Hospital06-22-2022 History of Present illness Narrative* Mayda Solares, DO - 11/07/2021 11:57 AM EDT Images from [...] medications for this visit. Physical Exam Vitals: [facility] 02/09/2020 Psych: Pleasant, good affect and mood [...] [facility] - [facility] End: 10/16/2021 12:13 PM (Final result) [...] patient Mayda Solares DO documented in this encounterHenry County Hospital06-07-2022 Miscellaneous Notes* Telephone Encounter - Shannon [...] Thanks! Mayda Solares DO documented in this encounterHenry County Hospital06-03-2022 History of Present illness Narrative* Mayda Solares DO - 10/19/2021 12:08 PM EDT VIRTUAL VISIT PROGRESS NOTE This is a virtual visit using [employer] video visit. It required patient-provider interaction for themedical decision making as documented below. Oral Fletcher [...] which included preparing to see the patient, xymo-sc-ysbz patient care, completing clinical documentation, communicating with [...] patient. Mayda Solares DO documented in this encounterHenry County Hospital05-31-2022 History of Present illness Narrative* RT Dorys(R) - 10/16/2021 11:20 AM EDT Radiology Service Progress Note PATIENT NAME: Oral [...] 16, 2021 11:44 AM documented in this encounterHenry County Hospital05-13-2022 Miscellaneous Notes* Telephone Encounter - June Magallon - 09/28/2021 12:50 PM EDT Called mom and scheduled virtual visit after MRI is done. * Telephone Encounter - Gurdeep Toscano - 09/27/2021 1:54 PM EDT Patient can be set up for telehealth visit to discuss results and surgical planning. Thank you! Gurdeep Toscano * Telephone Encounter - Shannon Berrios - 09/27/2021 1:37 PM EDT Patient has been scheduled for MRI, does patient need a follow up? Mom mentioned something about a scope that she was possibly going to get done? Please advise, thank you * Telephone Encounter - Gurdeep Toscano - 09/27/2021 12:52 PM EDT I ordered MRI, her last one of her left knee was a while ago and id like a new one prior to surgical intervention. Please schedule/call patient Thanks Mayda Solares DO * Telephone Encounter - Gurdeep Toscano - 09/27/2021 12:52 PM EDT ----- Message from Mayda Solares DO sent at 09/27/2021 11:59 AM EDT ----- I ordered MRI, her last one of her left knee was a while ago and id like a new one prior to surgical intervention. Please schedule/call patient Thanks Mayda Solares DO documented in this encounterHenry County Hospital05-11-2022 History of Present illness Narrative* Mayda Solares, DO - 09/26/2021 12:00 PM EDT Images [...] seen in the lateral and patellofemoral compartments. Recording Artist: CHAPARRITA ... Complete Results Assessment and Plan: [...] treatment plan as discussed. documented in this encounterHenry County Hospital05-11-2022 Miscellaneous Notes* Allied Health - RT Xiomara(R) - 09/26/2021 11:00 AM EDT Radiology Service Progress Note PATIENT NAME: Oral [...] 26, 2021 12:16 PM documented in this encounterHenry County Hospital01-23-2018 History of Past illness Narrative* Problem Noted Date Resolved Date Chronic cough 06/10/2017 11/25/2019 Nocturnal enuresis 10/16/2010 02/22/2020 Ganglion cyst of wrist, left 10/2019 Last Assessment & Plan: Assessment: scheduled for EXCISION GANGLION WRIST LEFT 12/03/2019 documented as of this encounter (statuses as of 09/27/2021) [facility] of [facility] illness Narrative* Problem Noted Date Resolved Date Chronic cough 06/10/2017 11/25/2019 Nocturnal enuresis 10/16/2010 02/22/2020 Ganglion cyst of wrist, left 10/2019 Last Assessment & Plan: Assessment: scheduled for EXCISION GANGLION WRIST LEFT 12/03/2019 documented as of this encounter (statuses as of 09/27/2021) [facility] of [facility] illness Narrative* Problem Noted Date Resolved Date Chronic cough 06/10/2017 11/25/2019 Nocturnal enuresis 10/16/2010 02/22/2020 Ganglion cyst of wrist, left 10/2019 Last Assessment & Plan: Assessment: scheduled for EXCISION GANGLION WRIST LEFT 12/03/2019 documented as of this encounter (statuses as of 09/28/2021) [facility] of [facility] Narrative* Problem Noted Date Resolved Date Chronic cough 06/10/2017 11/25/2019 Nocturnal enuresis 10/16/2010 02/22/2020 Ganglion cyst of wrist, left 10/2019 Last Assessment & Plan: Assessment: scheduled for EXCISION GANGLION WRIST LEFT 12/03/2019 documented as of this encounter (statuses as of 10/17/2021) [facility] of [facility] illness Narrative* Problem Noted Date Resolved Date Chronic cough 06/10/2017 11/25/2019 Nocturnal enuresis 10/16/2010 02/22/2020 Ganglion cyst of wrist, left 10/2019 Last Assessment & Plan: Assessment: scheduled for EXCISION GANGLION WRIST LEFT 12/03/2019 documented as of this encounter (statuses as of 10/23/2021) [address]23-2018 History of Past illness Narrative* Problem Noted Date Resolved Date Chronic cough 06/10/2017 11/25/2019 Nocturnal enuresis 10/16/2010 02/22/2020 Ganglion cyst of wrist, left 10/2019 Last Assessment & Plan: Assessment: scheduled for EXCISION GANGLION WRIST LEFT 12/03/2019 documented as of this encounter (statuses as of 10/23/2021) [facility] Narrative* Problem Noted Date Resolved Date Chronic cough 06/10/2017 11/25/2019 Nocturnal enuresis 10/16/2010 02/22/2020 Ganglion cyst of wrist, left 10/2019 Last Assessment & Plan: Assessment: scheduled for EXCISION GANGLION WRIST LEFT 12/03/2019 documented as of this encounter (statuses as of 11/08/2021) [facility]2018 History of Past illness Narrative* Problem Noted Date Resolved Date Chronic cough 06/10/2017 11/25/2019 Nocturnal enuresis 10/16/2010 02/22/2020 Ganglion cyst of wrist, left 10/2019 Last Assessment & Plan: Assessment: scheduled for EXCISION GANGLION WRIST LEFT 12/03/2019 documented as of this encounter (statuses as of 12/10/2021) [facility] History of Past illness Narrative* Problem Noted Date Resolved Date Chronic cough 06/10/2017 11/25/2019 Nocturnal enuresis 10/16/2010 02/22/2020 Ganglion cyst of wrist, left 10/2019 Last Assessment & Plan: Assessment: scheduled for EXCISION GANGLION WRIST LEFT 12/03/2019 documented as of this encounter (statuses as of 12/26/2021) [facility] History of Past illness Narrative* Problem Noted Date Resolved Date Chronic cough 06/10/2017 11/25/2019 Nocturnal enuresis 10/16/2010 02/22/2020 Ganglion cyst of wrist, left 10/2019 Last Assessment & Plan: Assessment: scheduled for EXCISION GANGLION WRIST LEFT 12/03/2019 documented as of this encounter (statuses as of 01/01/2022) [facility] History of Past illness Narrative* Problem Noted Date Resolved Date Chronic cough 06/10/2017 11/25/2019 Nocturnal enuresis 10/16/2010 02/22/2020 Ganglion cyst of wrist, left 10/2019 Last Assessment & Plan: Assessment: scheduled for EXCISION GANGLION WRIST LEFT 12/03/2019 documented as of this encounter (statuses as of 01/07/2022) [facility] History of Past illness Narrative* Problem Noted Date Resolved Date Chronic cough 06/10/2017 11/25/2019 Nocturnal enuresis 10/16/2010 02/22/2020 Ganglion cyst of wrist, left 10/2019 Last Assessment & Plan: Assessment: scheduled for EXCISION GANGLION WRIST LEFT 12/03/2019 documented as of this encounter (statuses as of 01/24/2022) [facility] History of Past illness Narrative* Problem Noted Date Resolved Date Chronic cough 06/10/2017 11/25/2019 Nocturnal enuresis 10/16/2010 02/22/2020 Ganglion cyst of wrist, left 10/2019 Last Assessment & Plan: Assessment: scheduled for EXCISION GANGLION WRIST LEFT 12/03/2019 documented as of this encounter (statuses as of 02/01/2022) [facility] History of Past illness Narrative* Problem Noted Date Resolved Date Chronic cough 06/10/2017 11/25/2019 Nocturnal enuresis 10/16/2010 02/22/2020 Ganglion cyst of wrist, left 10/2019 Last Assessment & Plan: Assessment: scheduled for EXCISION GANGLION WRIST LEFT 12/03/2019 documented as of this encounter (statuses as of 02/04/2022) [facility] History of Past illness Narrative* Problem Noted Date Resolved Date Chronic cough 06/10/2017 11/25/2019 Nocturnal enuresis 10/16/2010 02/22/2020 Ganglion cyst of wrist, left 10/2019 Last Assessment & Plan: Assessment: scheduled for EXCISION GANGLION WRIST LEFT 12/03/2019 documented as of this encounter (statuses as of 02/22/2022) [facility] History of Past illness Narrative* Problem Noted Date Resolved Date Chronic cough 06/10/2017 11/25/2019 Nocturnal enuresis 10/16/2010 02/22/2020 Ganglion cyst of wrist, left 10/2019 Last Assessment & Plan: Assessment: scheduled for EXCISION GANGLION WRIST LEFT 12/03/2019 documented as of this encounter (statuses as of 02/25/2022) [facility] History of Past illness Narrative* Problem Noted Date Resolved Date Chronic cough 06/10/2017 11/25/2019 Nocturnal enuresis 10/16/2010 02/22/2020 Ganglion cyst of wrist, left 10/2019 Last Assessment & Plan: Assessment: scheduled for EXCISION GANGLION WRIST LEFT 12/03/2019 documented as of this encounter (statuses as of 02/27/2022) [facility] History of Past illness Narrative* Problem Noted Date Resolved Date Chronic cough 06/10/2017 11/25/2019 Nocturnal enuresis 10/16/2010 02/22/2020 Ganglion cyst of wrist, left 10/2019 Last Assessment & Plan: Assessment: scheduled for EXCISION GANGLION WRIST LEFT 12/03/2019 documented as of this encounter (statuses as of 03/06/2022) [facility] History of Past illness Narrative* Problem Noted Date Resolved Date Chronic cough 06/10/2017 11/25/2019 Nocturnal enuresis 10/16/2010 02/22/2020 Ganglion cyst of wrist, left 10/2019 Last Assessment & Plan: Assessment: scheduled for EXCISION GANGLION WRIST LEFT 12/03/2019 documented as of this encounter (statuses as of 03/15/2022) [facility] History of Past illness Narrative* Problem Noted Date Resolved Date Chronic cough 06/10/2017 11/25/2019 Nocturnal enuresis 10/16/2010 02/22/2020 Ganglion cyst of wrist, left 10/2019 Last Assessment & Plan: Assessment: scheduled for EXCISION GANGLION WRIST LEFT 12/03/2019 documented as of this encounter (statuses as of 04/09/2022) [facility] History of Past illness Narrative* Problem Noted Date Resolved Date Chronic cough 06/10/2017 11/25/2019 Nocturnal enuresis 10/16/2010 02/22/2020 Ganglion cyst of wrist, left 10/2019 Last Assessment & Plan: Assessment: scheduled for EXCISION GANGLION WRIST LEFT 12/03/2019 documented as of this encounter (statuses as of 08/02/2022) [facility] History of Past illness Narrative* Problem Noted Date Resolved Date Chronic cough 06/10/2017 11/25/2019 Nocturnal enuresis 10/16/2010 02/22/2020 Ganglion cyst of wrist, left 10/2019 Last Assessment & Plan: Assessment: scheduled for EXCISION GANGLION WRIST LEFT 12/03/2019 documented as of this encounter (statuses as of 11/21/2022) [facility] History of Past illness Narrative* Problem Noted Date Diagnosed Date Resolved Date Chronic cough 06/10/2017 11/25/2019 Nocturnal enuresis 10/16/2010 0 Ganglion cyst of wrist, left 02/22/2020 Last Assessment & Plan: Assessment: scheduled for EXCISION GANGLION WRIST LEFT 12/03/2019 documented as of this encounter (statuses as of 01/23/2023) [facility] History of Past illness Narrative* Problem Noted Date Diagnosed Date Resolved Date Chronic cough 06/10/2017 11/25/2019 Nocturnal enuresis 10/16/2010 0 Ganglion cyst of wrist, left 02/22/2020 Last Assessment & Plan: Assessment: scheduled for EXCISION GANGLION WRIST LEFT 12/03/2019 documented as of this encounter (statuses as of 04/02/2023) [facility] History of Past illness Narrative* Problem Noted Date Diagnosed Date Resolved Date Chronic cough 06/10/2017 11/25/2019 Nocturnal enuresis 10/16/2010 0 Ganglion cyst of wrist, left 02/22/2020 Last Assessment & Plan: Assessment: scheduled for EXCISION GANGLION WRIST LEFT 12/03/2019 documented as of this encounter (statuses as of 07/24/2023) [facility] History of Past illness Narrative* Problem Noted Date Diagnosed Date Resolved Date Chronic cough 06/10/2017 11/25/2019 Nocturnal enuresis 10/16/2010 0 Ganglion cyst of wrist, left 02/22/2020 Last Assessment & Plan: Assessment: scheduled for EXCISION GANGLION WRIST LEFT 12/03/2019 documented as of this encounter (statuses as of 08/01/2023) [place] [id number] History of Past illness Narrative* Problem Noted Date Diagnosed Date Resolved Date Chronic cough 06/10/2017 11/25/2019 Nocturnal enuresis 10/16/2010 0 Ganglion cyst of wrist, left 02/22/2020 Last Assessment & Plan: Assessment: scheduled for EXCISION GANGLION WRIST LEFT 12/03/2019 documented as of this encounter (statuses as of 08/01/2023) [address]23-2018 History of Past illness Narrative* Problem Noted Date Diagnosed Date Resolved Date Chronic cough 06/10/2017 11/25/2019 Nocturnal enuresis 10/16/2010 0 Ganglion cyst of wrist, left 02/22/2020 Last Assessment & Plan: Assessment: scheduled for EXCISION GANGLION WRIST LEFT 12/03/2019 documented as of this encounter (statuses as of 08/19/2023) [address]23-2018 History of Past illness Narrative* Problem Noted Date Diagnosed Date Resolved Date Chronic cough 06/10/2017 11/25/2019 Nocturnal enuresis 10/16/2010 0 Ganglion cyst of wrist, left 02/22/2020 Last Assessment & Plan: Assessment: scheduled for EXCISION GANGLION WRIST LEFT 12/03/2019 documented as of this encounter (statuses as of 08/27/2023) [address]23-2018 History of Past illness Narrative* Problem Noted Date Diagnosed Date Resolved Date Chronic cough 06/10/2017 11/25/2019 Nocturnal enuresis 10/16/2010 0 Ganglion cyst of wrist, left 02/22/2020 Last Assessment & Plan: Assessment: scheduled for EXCISION GANGLION WRIST LEFT 12/03/2019 documented as of this encounter (statuses as of 08/28/2023) [address] History of Past illness Narrative* Problem Noted Date Diagnosed Date Resolved Date Chronic cough 06/10/2017 11/25/2019 Nocturnal enuresis 10/16/2010 0 Ganglion cyst of wrist, left 02/22/2020 Last Assessment & Plan: Assessment: scheduled for EXCISION GANGLION WRIST LEFT 12/03/2019 documented as of this encounter (statuses as of 08/30/2023) [facility] History of Past illness Narrative* Problem Noted Date Diagnosed Date Resolved Date Chronic cough 06/10/2017 11/25/2019 Nocturnal enuresis 10/16/2010 0 Ganglion cyst of wrist, left 02/22/2020 Last Assessment & Plan: Assessment: scheduled for EXCISION GANGLION WRIST LEFT 12/03/2019 documented as of this encounter (statuses as of 09/03/2023) [facility] Blane [facility] Note Date/Time August 17, 2024 1:51 am [facility] Medical Records Department [address] [place] [address] Emergency Department Summary 08/17/24 MR#: [id number] Acct: [id number] Name: ORAL FLETCHER Rep #:[id number] : 2005 19 From: Blane Alfred MD [...] similar symptoms: Yes Recent Illness/Hospitalization: No PFSH PFS Medical History Anxiety Encounter for screening for [...] home and treated as a kidney stone. Ackworth for pain. Motrin. Fluids. Urine strainer. Urology [...] 45.2 L Lymph % (Auto) 45.9 H [place] % (Auto) 6.6 Eos % (Auto) 1.7 [...] Clarity Clear Urine pH 7.0 Ur Specific Red Level 1.010 Urine Protein 30 H Urine Glucose [...] stranding or urothelial thickening seen. Reading Location: [id number] CT of the abdomen pelvis with IV [...] in your bladder your pain should resolve. Ackworth for severe pain. Otherwise you can use [...] best way to prevent kidneystones. Print Language: Chadian Disposition Disposition: Home, Self Care What to do if you have Problems For any increased pain, shortness of breath, bleeding, nausea or vomiting, chestpain, or any unexpected problems, contact your Primary Care Provider. Call [facility] ([phone]) or report to the closest Emergency Room. Call 911 if necessary. 08/17/24 0151 <Electronically signed by Blane Alfred MD> Cosigner Signature (if applicable): CC: No Primary Care Physician ~ Signed [facility] Work Phone: Discharge summary Author Vlad Jay [facility] Note Date/Time December 08, 2024 7:29 am [facility] Medical Records Department [address] [place] [address] Emergency Department Summary 12/08/24 MR#: [id number] Acct: [id number] Name: ORAL FLETCHER Rep #:[id number] : 2005 19 From: Vlad Jay DO PCP: Care Physician,No Primary Status :REG ER Location: ED HPI History of Present Illness Chief Complaint: Wound Check Informant: patient Narrative Narrative: Patient is a 19-year-old female with no significant past medical history. She was seen yesterday evening secondary to being bit in the hand by a cat at the [employer]. She was started on Augmentin and her tetanus status was updated. She states that she awoke this morning secondary to persistent pain inthe right hand/arm. She states when she looked at the area there is now red streaking extending from the area where she was bitten in the right finger into her upper arm/armpit region. She states she still does not have any subjective or documented fever. However she was advised that if streaking occurs this could indicate worsening infection and therefore she presents for evaluation. Patient is left-hand dominant [facility] Medical History Anxiety Encounter for screening for [...] days #8 08/17/24 Unknown Rx 5mg-325mg tabs amoxicillin 875 mg-potassium 1 tab PO BID 10 days #20 tabs 12/07/24 Unknown Rx clavulanate 125 mg tablet oxycodone-acetaminophen 5 mg-325 1 tab PO Q6H PRN pain 3 days #12 12/07/24 Unknown Rx mg tablet (Percocet) tabs Allergy/AdvReac Type Severity Reaction Status Date [...] chills or fever(s) ENT ENT ED: Denies sore throat Cardiovascular Cardiovascular: Denies chest pain Respiratory/Chest Respiratory/Chest: Denies cough or dyspnea Gastrointestinal Gastrointestinal: Denies abdominal pain, diarrhea, nausea or vomiting Musculoskeletal Musculoskeletal: Reports other Details: Positive right hand/arm pain Integumentary Reports other Details: Cat bite bilateral hand with streaking right arm Neurologic Neurologic: Denies headache(s), paresthesias or weakness Hematologic/Lymphatic Hematologic/Lymphatic: Denies easy bleeding or easy bruising EXAM Physical Exam Const Vital Signs: 12/08/24 06:03 Temperature 98.6 F Temperature Source Oral Pulse Rate 84 Respiratory Rate 16 Blood Pressure 120/87 H Blood Pressure Mean 98 Pulse Ox 100 Oxygen Delivery Method Room Air Positive well nourished and well developed General Appearance ED: well developed HEENT HEENT Narrative: Normocephalic atraumatic Eyes PERRL and EOMs intact bilaterally General Eye ED: Negative for scleral icterus Neck supple Neck Narrative: No nuchal rigidity or meningeal signs Resp normal respiratory effort and clear to auscultation bilaterally Cardio regular rate and regular rhythm Extremity Extremity Narrative: Right upper extremity is neurovascularly intact; AIN/PIN are intact normal. Patient has soft tissue swelling with erythema and 2 puncture wounds to the finger pad of the right third digit. There is no purulent drainage or dischargenoted. The pad is soft and compressible going against felon. No nailbed involvement. There is now lymphangitic streaking extending from the lateral aspect of the digit across the forearm and humerus into the axilla. All compartments are soft and compressible going against compartment syndrome Patient has a scratch to the palmar aspect of the left hand without surrounding erythema or streaking. Neuro oriented x3, CN's II-XII intact bilaterally and no sensory deficits noted Sensorium / Orientation: alert Motor Exam: strength 5/5 throughout Psych mental status grossly normal Skin Skin Narrative: Soft tissue change to the right hand/arm and left hand consistent with cat bite and scratch as documented above MDM MDM MDM Narrative Medical decision making narrative: Patient was seen in the ER within 12 hours of the initial cat bite. She does not have history of immunosuppression nor is she taking immunosuppressive medication. At that time there was no lymphangitic streaking or fever or signs of felon. Therefore it was felt that she would only be started on antibiotics and have her tetanus updated and this should help prevent any worsening infection. However within 6 to 7 hours of being discharged from the ER she thendeveloped streaking from her initial area of injury in the right third finger pad all the way up into the axilla concerning for developing systemic infection. Secondary to this an x-ray was obtained to rule out retained foreign body developing signs of osteomyelitis or free air and basic labs were obtained as well. X-ray revealed no acute findings and blood work showed no leukocytosis orleft shift. However because of the quick onset of worsening infection the case was discussed with hand surgeon Dr. Min and patient was given IV Zosyn. Afterdiscussing the case with the hand surgeon he recommends that the patient be admitted for IV antibiotics and potential washout based on the quick spread of the infection. He recommends vancomycin be added to the Zosyn and that the patient be admitted to the medicine service for continued treatment. Secondary to his medicine was contacted and they agreed to accept the patient for continued care. History & Record Review Discussion w/independent historian: Patient Lab Data Attestation: I reviewed the patient's lab results. Labs: Laboratory Results - last 24 hr 12/08/24 06:27 WBC 4.9 RBC 4.10 L Hgb 12.2 Hct 34.7 L MCV 84.6 MCH 29.8 MCHC 35.2 RDW Std Deviation 41.1 RDW Coeff of Kirsten 13.4 Plt Count 159 MPV 11.2 Immature Gran % (Auto) 0.200 Neut % (Auto) 49.2 Lymph % (Auto) 41.4 H [place] % (Auto) 7.6 Eos % (Auto) 1.6 Baso % (Auto) 0.0 Absolute Neuts (auto) 2.4 Absolute Lymphs (auto) 2.03 Nucleated RBC % 0 ESR < 1 Radiography Diagnostic Testing: Clinical Impression(s) from Imaging Studies Hand X-Ray 12/08/24 06:46 IMPRESSION: No fracture or dislocation is identified. Reading Location: [facility] X-ray of the right hand as interpreted by the emergency medicine physician reveals no signs of osteomyelitis fracture free air or retained foreign object Management Discussion w/another healthcare provider: Hospitalist and Control Systems Engineer Discharge Plan Triage Chief Complaint: Wound Check ED Provider: Vlad Jay Dx/Rx/DC Orders Clinical Impression: Cat bite, Anxiety Prescriptions: No Action PNV [id number] [] 28 mg iron- 800 mcg tablet 1 tab PO DAILY pantoprazole [Protonix] [address] for susp in packet 40 mg PO DAILY sennosides-docusate sodium [Stimulant Laxative Plus] 8.6-50 mg Tablet 1 - 2 tab PO DAILY PRN PRN (Reason: Constipation) Qty: 30 0RF hydrocodone-acetaminophen 5-325 mg tablet 1 tab PO Q4H PRN (Reason: pain) 2 Days Qty: 8 0RF amoxicillin-pot clavulanate 875-125 mg tablet 1 tab PO BID 10 Days Qty: 20 0RF oxycodone-acetaminophen [Percocet] 5-325 mg tablet 1 tab PO Q6H PRN (Reason: pain) 3 Days Qty: 12 0RF Primary Care Provider: Care Physician,No Primary Referrals: Care Physician,No Primary [Primary Care Provider] - Print Language: Chadian Disposition Disposition: Acute Care Hospital [facility] What to do if you have Problems For any increased pain, shortness of breath, bleeding, nausea or vomiting, chestpain, or any unexpected problems, contact your Primary Care Provider. Call [facility] ([phone]) or report to the closest Emergency Room. Call 911 if necessary. 12/08/24 0768 <Electronically signed by Vlad Jay DO> Cosigner Signature (if applicable): CC: No Primary Care Physician ~ Signed [facility] Work Phone: Evaluation note* Diagnosis Pain Generalized [...] following other surgery [facility] Diagnosis Patellar dislocation, left, subsequent encounter- Primary S/P orthopedic surgery, follow-up exam Follow-up examination, following other surgery [facility]* Diagnosis Patellar dislocation, left, subsequent encounter- Primary S/P orthopedic surgery, follow-up exam Follow-up examination, following other surgery [facility] Diagnosis Patellar dislocation, left, subsequent encounter- Primary S/P orthopedic surgery, follow-up exam Follow-up examination, following other surgery [facility]* Diagnosis S/P knee surgery- Primary Other postprocedural status [facility] Cat bite, initial encounter- Primary [facility]* Diagnosis Myopia, bilateral- Primary Myopia [facility]* Diagnosis Sore throat- Primary Acute pharyngitis URI, acute Acute upper respiratory infections of unspecified site [facility]* Diagnosis Rash- Primary Rash and other nonspecific skin eruption [facility]* Diagnosis Sore throat- Primary Acute pharyngitis documented in this encounter [facility] noteNo assessment information availableWSouthwest General [facility] Work Phone: Evaluation note* Diagnosis Chronic pain of left knee- Primary Pain in joint, lower leg [facility]* Diagnosis Chronic pain of left knee Pain in joint, lower leg [facility]* Diagnosis S/P knee surgery- Primary Other postprocedural status Loose body in knee, left knee [facility]* Diagnosis S/P knee surgery Other postprocedural status [facility] Diagnosis S/P knee surgery- Primary Other postprocedural status [facility]* Diagnosis Nausea- Primary Nausea alone [facility]* Diagnosis S/P knee surgery Other postprocedural status Loose body in knee, left knee [facility] Diagnosis S/P knee surgery- Primary Other postprocedural status [facility]* Diagnosis Nausea- Primary Nausea alone [facility]* Diagnosis Dizziness- Primary Dizziness and giddiness Nausea and vomiting, unspecified vomiting type documented [facility]* Diagnosis Myopia, bilateral- Primary Myopia [facility]* Diagnosis with uncertain dates, antepartum- Primary state, incidental Encounter for care in first trimester of first Generalized anxiety disorder History of depression Personal history of other mental disorder Supervision of normal first teen in second trimester Acute vaginitis Vaginitis and vulvovaginitis, unspecified Nausea and vomiting during Normal first with uncertain date of LMP, antepartum Supervision of normal first [facility]* Diagnosis Generalized anxiety disorder- Primary History of depression Personal history of other mental disorder Supervision of normal first teen in second trimester Nausea and vomiting during Normal first with uncertain date of LMP, antepartum Supervision of normal first [facility]* Diagnosis Encounter for screening for malformation using ultrasound- Primary 12 weeks gestation of state, incidental 12 weeks gestation of - Primary state, incidental [facility] Diagnosis Encounter for screening for malformation using ultrasound- Primary 12 weeks gestation of state, incidental [facility]* Diagnosis Supervision of normal first teen in second trimester- Primary Nausea and vomiting during Normal first with uncertain date of LMP, antepartum Supervision of normal first Generalized anxiety disorder History of depression Personal history of other mental disorder 12 weeks gestation of state, incidental [facility]* Diagnosis Nausea- Primary Nausea alone [facility] note* Diagnosis Supervision of normal first teen in second trimester- Primary 15 weeks gestation of state, incidental Nausea and vomiting during Generalized anxiety disorder History of depression Personal history of other mental disorder Rubella non-immune status, antepartum Other specified complication, antepartum [facility] Diagnosis Supervision of normal first teen in second trimester- Primary Nausea and vomiting during History of depression Personal history of other mental disorder Rubella non-immune status, antepartum Other specified complication, antepartum Generalized anxiety disorder 20 weeks gestation of state, incidental Back pain in Other specified complication of , unspecified as to episode of care [facility] Diagnosis Encounter for anatomic survey- Primary 20 weeks gestation of state, incidental documented in this encounter [facility] note* Diagnosis Pain Generalized pain [facility] Diagnosis Pain Generalized pain documented in this encounter [facility] note* Diagnosis Encounter for care in first trimester of first documented in this encounter [facility] note* Diagnosis 24 weeks gestation of - Primary state, incidental Supervision of normal first teen in second trimester Generalized anxiety disorder Rubella non-immune status, antepartum Other specified complication, antepartum History of depression Personal history of other mental disorder Encounter for care in first trimester of first Heartburn during in second trimester [facility] Diagnosis Viral URI- Primary Acute upper respiratory infections of unspecified site documented in this encounter [facility] note* Diagnosis Elevated glucose tolerance test- Primary Impaired glucose tolerance test documented in this encounter [facility] note* Diagnosis Supervision of normal first teen [...] disorder documented in this encounter [facility] note* Diagnosis 29 weeks gestation of - Primary state, incidental Encounter for supervision of normal first in third trimester Supervision of normal first Rubella non-immune status, antepartum Other specified complication, antepartum Low-lying placenta Hemorrhage from placenta previa, unspecified as to episode of care documented in this encounter [facility] note* Diagnosis 32 weeks gestation of - Primary state, incidental Encounter for supervision of normal first in third trimester Supervision of normal first Low-lying placenta Hemorrhage from placenta previa, unspecified as to episode of care Heartburn during in third trimester documented in this encounter [facility] note* Diagnosis Encounter for ultrasound to check growth- Primary Encounter for routine screening for malformation using ultrasonics Suspected placental problem not found 32 weeks gestation of state, incidental [facility] Diagnosis 34 weeks gestation of - Primary state, incidental Encounter for supervision of normal first in third trimester Supervision of normal first Rubella non-immune status, antepartum Other specified complication, antepartum Heartburn during in third trimester [facility]* Diagnosis Supervision of normal first teen in second trimester- Primary Heartburn during in third trimester Rubella non-immune status, antepartum Other specified complication, antepartum History of depression Personal history of other mental disorder Uterine size-date discrepancy in third trimester Uterine size date discrepancy, antepartum condition or complication [facility]* Diagnosis Encounter for supervision of normal first in third trimester- Primary Supervision of normal first Uterine size-date discrepancy in third trimester Uterine size date discrepancy, antepartum condition or complication Need for RSV vaccination Need for prophylactic vaccination and inoculation against respiratory syncytial virus 36 weeks gestation of state, incidental [facility]* Diagnosis 2 weeks follow-up- Primary Lactating mother care and examination of lactating mother First-degree perineal laceration in First-degree perineal laceration, unspecified as to episode of care in Generalized anxiety disorder [facility]* Diagnosis Post depression- Primary Mental disorders of mother, [facility]* Diagnosis 2 weeks follow-up- Primary Post depression Mental disorders of mother, [facility]* Diagnosis Post depression- Primary Mental disorders of mother, Generalized anxiety disorder [facility]* Diagnosis care and examination- Primary Routine follow-up Encounter for IUD insertion Encounter for insertion of intrauterine contraceptive device Post depression Mental disorders of mother, Generalized anxiety disorder [facility]* Diagnosis Acute cough- Primary Rhinosinusitis Unspecified sinusitis (chronic) Acute cough [facility]* Diagnosis Acute cough [facility]* Diagnosis Encounter for care in first trimester of first (HCC) [facility]* Diagnosis Encounter for IUD insertion- Primary Encounter for insertion of intrauterine contraceptive device [facility] Additional Instructions Please follow-up with crisis center as directed regarding your event that occurred this evening. If you have any further concerns or worsening of symptoms please return [facility] the [facility] Work Phone: Hospital Discharge instructions Additional Instructions Your pain is from a 2 mm kidney stone on the left. It is already all the way down by your bladder. It should pass without any difficulty. Once he gets in your bladder your pain should resolve. [place] for severe pain. Otherwise you can use [...] best way to prevent kidney stones.[facility] Work Phone: Hospital Discharge instructionsAdditional Instructions Most likely secondary to your IUD. Plenty of fluids. Motrin and Tylenol for pain. Follow-up with your nurse used equipment sales representative if not improving. Or your RUBBER GOODS INSPECTOR.[facility] Work Phone: Hospital Discharge instructionsAdditional Instructions The [...] prevent infection and take the antibiotic as [facility]WS[facility] Work Phone: Reason for referral (narrative)* Diagnostic Procedure Only (Routine) - Closed Specialty Diagnoses / Procedures Referred By Natasha burch Referred To Contact XR IMAGING Diagnoses Chronic pain of left knee Procedures XR KNEE GENERAL 4V AP BOTH/PA BOTH/LAT/MERC LEFT RADIOLOGIC EXAM KNEE COMPLETE 4/MORE VIEWS Mayda Solares DO [address] [place] [address] Xr Imaging Referral ID Status Reason Start Date Expiration Date V isits Requested Visits Authorized [id number] Closed Auto-Generate d Referral 09/26/2021 10/26/2022 1 1 [facility] for referral (narrative)* Diagnostic Procedure Only (Routine) - Pending Review Specialty Diagnoses / Procedures Referred By Contac t Referred To Contact XR IMAGING Diagnoses Chronic pain of left knee Procedures XR KNEE GENERAL 4V AP BOTH/PA BOTH/LAT/MERC LEFT RADIOLOGIC EXAM KNEE COMPLETE 4/MORE VIEWS Mayda Solares DO [address] [place] [address] [place] [address] Referral ID Status Reason Start Date Expiration Date Visits Requested Visits Authorized [id number] Pending Review Auto-Generat ed Referral 07/24/2023 08/22/2024 1 1 [facility] for referral (narrative)* Diagnostic Procedure Only (Routine) - Closed Specialty Diagnoses / Procedures Referred By Contac t Referred To Contact XR IMAGING Diagnoses Chronic pain of left knee Procedures XR KNEE GENERAL 4V AP BOTH/PA BOTH/LAT/MERC LEFT RADIOLOGIC EXAM KNEE COMPLETE 4/MORE VIEWS Mayda Solares DO [address] [place] [address] [place] [address] Referral ID Status Reason Start Date Expiration Date V isits Requested Visits Authorized [id number] Closed Auto-Generate d Referral 07/24/2023 08/22/2024 1 1 [facility] for referral (narrative)* Diagnostic Procedure Only (Routine) - New Request Specialty Diagnoses / Procedures Referred By Contac t Referred [facility] Diagnoses 12 weeks gestation of Procedures NUCHAL TRANSLUCENCY WHI US NUCHAL TRANSLUCENCY 1ST GESTATION Anitra Caldwell APRN.[place] [address] [facility] [address] [place] [address] Referral ID Status Reason Start Date Expiration Date Visits Requested Visits Authorized [id number] New Request Auto-Generat ed Referral 11/28/2023 11/27/2024 1 1 [facility] for referral (narrative)* Diagnostic Procedure Only (Routine) - New Request Specialty Diagnoses / Procedures Referred By Contac t Referred To Contact [facility] Diagnoses Supervision of normal first teen in second trimester Procedures OBSTETRIC ULTRASOUND WHI US PREG UTERUS AFTER 1ST TRIMEST GESTATION Anitra Caldwell APRN.CNM [address] [place] [address] [facility] [address] [place] [address] Referral ID Status Reason Start Date Expiration Date Visits Requested Visits Authorized [id number] New Request Auto-Generat ed Referral 11/28/2023 11/27/2024 1 1 [facility] for referral (narrative)* Diagnostic Procedure Only (Urgent) - Closed Specialty Diagnoses / Procedures Referred By Contac t Referred To Contact XR IMAGING Diagnoses Pain Procedures XR FOOT GENERAL 3V AP/LAT/OBL RIGHT RADEX FOOT COMPLETE MINIMUM 3 VIEWS Zhanna Hazel APRN.CNP [address] [place] [address] [place] [address] Referral ID Status Reason Start Date Expiration Date V isits Requested Visits Authorized [id number] Closed Auto-Generate d Referral 02/18/2023 03/19/2024 1 1 [facility] for referral (narrative)* Diagnostic Procedure Only (Urgent) - Closed Specialty Diagnoses / Procedures Referred By Contac t Referred To Contact XR IMAGING Diagnoses Pain Procedures XR ANKLE GENERAL 3V AP/LAT/OBL RIGHT RADEX ANKLE COMPLETE MINIMUM 3 VIEWS Zhanna Hazel APRN.RADIOLOGIST [facility] [address] [place] [address] [place] [address] Referral ID Status Reason Start Date Expiration Date V isits Requested Visits Authorized [id number] Closed Auto-Generate d Referral 02/18/2023 03/19/2024 1 1 [facility] for referral (narrative)No reason for referral information availableWSouthwest General [facility] Center Work Phone: [facility] N[facility]* Diagnostic Procedure Only (Routine) - Closed Specialty Diagnoses / Procedures Referred By Contac t Referred To Contact XR IMAGING Diagnoses Pain Procedures XR KNEE GENERAL 4V AP BOTH/PA BOTH/LAT/MERC RIGHT RADIOLOGIC EXAM KNEE COMPLETE 4/MORE VIEWS Mayda Solares DO [address] [place] [address] Xr Imaging Referral ID Status Reason Start Date Expiration Date V isits Requested Visits Authorized [id number] Closed Auto-Generate d Referral 08/17/2021 09/16/2022 1 1 [facility] for visit Narrative* Diagnostic Procedure Only (Routine) - Closed Specialty Diagnoses / Procedures Referred By Contac t Referred To Contact XR IMAGING Diagnoses Chronic pain of left knee Procedures XR KNEE GENERAL 4V AP BOTH/PA BOTH/LAT/MERC LEFT RADIOLOGIC EXAM KNEE COMPLETE 4/MORE VIEWS Mayda Solares DO [address] [facility] [address] [place] [address] [place] [address] Referral ID Status Reason Start Date Expiration Date V isits Requested Visits Authorized [id number] Closed Auto-Generate d Referral 07/24/2023 08/22/2024 1 1 [facility] for visit Narrative* Diagnostic Procedure Only (Urgent) - Closed Specialty Diagnoses / Procedures Referred By Contac t Referred To Contact XR IMAGING Diagnoses Pain Procedures XR FOOT GENERAL 3V AP/LAT/OBL RIGHT RADEX FOOT COMPLETE MINIMUM 3 VIEWS Zhanna Hazel APRN.RADIOLOGIST [facility] [address] [place] [address] [place] [address] Referral ID Status Reason Start Date Expiration Date V isits Requested Visits Authorized [id number] Closed Auto-Generate d Referral 02/18/2023 03/19/2024 1 1 [facility] Diagnostic Procedure Only (Urgent) - Closed Specialty Diagnoses / Procedures Referred By Contac t Referred To Contact XR IMAGING Diagnoses Pain Procedures XR ANKLE GENERAL 3V AP/LAT/OBL RIGHT RADEX ANKLE COMPLETE MINIMUM 3 VIEWS Zhanna Hazel, SHOP LABORER.RADIOLOGIST [facility] [address] [place] [address] [place] [address] Referral ID Status Reason Start Date Expiration Date V isits Requested Visits Authorized [id number] Closed Auto-Generate d Referral 02/18/2023 03/19/2024 1 1 [facility] Summary Purpose Family History Relationship Condition Age at Onset Recorded Date/T guera grandfather Leukemia Unknown Deep vein thrombosis (DVT) Unknown grandmother Malignant neoplasm of breast Unknown grandmother Diabetes mellitus Unknown Cardiac disease Unknown Malignant neoplasm of lung Unknown Advance Directives Advance Directive Response Recorded Date/ Time Living Will No June 03 12:42am Power of Salvage Determiner No June 03, 2023 12:42am Advance Directive Response Recorded Date/ Time Living Will No May 25 12:56pm Do you have a Healthcare Power of Salvage Determiner? No May 25, 2024 12:56pm Living Will No August 17, 2024 1:18am Do you have a Healthcare Power of Salvage Determiner? No August 17, 2024 1:18am Advance Directive Response Recorded Date/ Time Living Will No August 17, 2024 1:18am Do you have a Healthcare Power of Salvage Determiner? No August 17, 2024 1:18am Do you have a Healthcare Power of Salvage Determiner? No December 05, 2024 10:40am Advance Directive Response Recorded Date/ Time Living Will No August 17, 2024 1:18am Do you have a Healthcare Power of Salvage Determiner? No August 17, 2024 1:18am Do you have a Healthcare Power of Salvage Determiner? No December 05, 2024 10:40am Do you have a Healthcare Power of Salvage Determiner? No December 07, 2024 11:14pm Advance Directive Response Recorded Date/ Time Living Will No August 17, 2024 1:18am Do you have a Healthcare Power of Salvage Determiner? No August 17, 2024 1:18am Do you have a Healthcare Power of Salvage Determiner? No December 05, 2024 10:40am Do you have a Healthcare Power of Salvage Determiner? No December 07, 2024 11:14pm Do you have a Healthcare Power of Salvage Determiner? No December 08, 2024 6:03am Reason for Referral Specialty Diagnoses / Procedures Referred By Natasha t Referred To Contact MR IMAGING Diagnoses Chronic pain of left knee Knee OCD Procedures MRI KNEE WO IVCON LT MRI ANY JT LOWER EXTREM W/O CONTRAST Mayda Lemons DO [address] [place] [id number] [facility] Referral ID Status Reason Start Date Expiration Date V isits Requested Visits Authorized [id number] Closed Auto-Generate d Referral 09/28/2021 10/27/2021 1 1 Specialty Diagnoses / Procedures Referred By Contact Referred To Contact [facility] Diagnoses Patellar dislocation, left, subsequent encounter S/P orthopedic surgery, follow-up exam Procedures CONSULT TO PHYSICAL THERAPY PHYSICAL THERAPY EVALUATION HIGH COMPLEX 45 MINS Otoniel Gates PA-C [address] [place] [id number] [facility] [address] [address] Referral ID Status Reason Start Date Expiration Date Visits Requested Visits Authorized [id number] Pending Review Auto-Generat ed Referral 12/26/2021 12/26/2022 1 1 Referral ID Status Reason Start Date Expiration Date Visits Requested Visits Authorized [id number] Pending Review Auto-Generat ed Referral 12/26/2021 12/26/2022 1 1 Specialty Diagnoses / Procedures Referred By Contac t Referred To Contact [facility] Diagnoses Patellar dislocation, left, subsequent encounter S/P orthopedic surgery, follow-up exam Procedures PT REHAB FOLLOW UP ORDER THERAPEUTIC EXERCISES RE, EA 15 MIN. June Staton, PT [facility] [place] [address] [place] [id number] Referral ID Status Reason Start Date Expiration Date Visits Requested Visits Authorized [id number] Pending Review PCP Requested Referral Auto-Generate d Referral 02/04/2022 05/05/2022 1 1 Specialty Diagnoses / Procedures Referred By Contac t Referred To Contact MR IMAGING Diagnoses S/P knee surgery Loose body in knee, left knee Procedures MRI KNEE WO IVCON LEFT MRI ANY JT LOWER EXTREM W/O CONTRAST Mayda Lemons DO [address] [place] [address] [place] [address] Referral ID Status Reason Start Date Expiration Date Visits Requested Visits Authorized [id number] Pending Review Auto-Generat ed Referral 07/31/2023 08/29/2024 1 1 Specialty Diagnoses / Procedures Referred By Contac t Referred To Contact [facility] Diagnoses S/P knee surgery Procedures CONSULT TO PHYSICAL THERAPY PHYSICAL THERAPY EVALUATION [facility] 45 MINS Mayda Solares DO [address] [place] [address] [facility] [place] [address] [place] [address] Referral ID Status Reason Start Date Expiration Date Visits Requested Visits Authorized [id number] Authorized Auto-Generat ed Referral 05/19/2023 05/18/2024 30 30 Specialty Diagnoses / Procedures Referred By Contac t Referred To Contact MR IMAGING Diagnoses S/P knee surgery Loose body in knee, left knee Procedures MRI KNEE WO IVCON LEFT MRI ANY JT LOWER EXTREM W/O CONTRAST Mayda Lemons DO [address] [place] [address] [facility] [address] [place] [address] Referral ID Status Reason Start Date Expiration Date V isits Requested Visits Authorized [id number] Closed Auto-Generate d Referral 07/31/2023 11/20/2023 1 1 Specialty Diagnoses / Procedures Referred By Contac t Referred To Contact Diagnoses 2 weeks follow-up Generalized anxiety disorder Procedures CONSULT TO [facility]S [facility] OFFICE/OUTPATIENT [facility] 60 MINUTES Tran Gaytan APRN.ELIAZAR [address] [place] [address] Referral ID Status Reason Start Date Expiration Date Visits Requested Visits Authorized [id number] Authorized PCP Requested Referral 06/17/2024 06/17/2025 1 1 Specialty Diagnoses / Procedures Referred By Natasha burch Referred To Contact Diagnoses Post depression Procedures CONSULT TO PSYCHIATRY OFFICE/OUTPATIENT [facility] 60 MINUTES Nataliia Vail LISW [address] [place] [address] Referral ID Status Reason Start Date Expiration Date Visits Requested Visits Authorized [id number] Pending Review PCP Requested Referral 06/24/2024 06/24/2025 [...] 2024 11:24am Rubella non-immune status, antepartum Ja sylvester 2024 11:24am Chief Complaint Admit Date abd pain August 16, 2024 11: 40pm BLEEDING December 05, 2024 10:4 0am Chief Complaint Admit Date abd pain August 16, 2024 11: 40pm BLEEDING December 05, 2024 10:4 0am bite December 07, 2024 9:08 pm Chief Complaint Admit Date abd pain August 16, 2024 11: 40pm BLEEDING December 05, 2024 10:4 0am bite December 07, 2024 9:08 pm CAT BITE CELLULITIS December 08, 2024 7:23 am Additional Source Comments INFORMATION SOURCE (unrecogn ized section and content) DATE CREATED AUTHOR 12/10/2019 [facility] DATE CREATED AUTHOR AUTHOR'S ORGANIZ ATION 09/28/2021 [facility] DATE CREATED AUTHOR AUTHOR'S ORGANIZ ATION 04/25/2023 [facility] DATE CREATED AUTHOR AUTHOR'S ORGANIZ ATION 11/28/2024 [facility] DATE CREATED AUTHOR AUTHOR'S ORGANIZ ATION 12/07/2024 [facility] Source Comments (unrecognize d section and content) In the event this informatio n is protected by the Federal Confidentiality of Alcohol and Drug Abuse Patient Records regulations: The Federal rules restrict any use of the information to criminally investigate or prosecute any alcohol or drug abuse patient.[facility] the event this information is protected by the Federal Confidentiality of Alcohol and Drug Abuse Patient Records regulations: The Federal rules restrict any use of the information to criminally investigate or prosecute any alcohol or drug abuse patient.[facility] the event this information is protected by the Federal Confidentiality of Alcohol and Drug Abuse Patient Records regulations: The Federal rules restrict any use of the information to criminally investigate or prosecute any alcohol or drug abuse patient.[facility] the event this information is protected by the Federal Confidentiality of Alcohol and Drug Abuse Patient Records regulations: The Federal rules restrict any use of the information to criminally investigate or prosecute any alcohol or drug abuse patient.[facility] the event this information is protected by the Federal Confidentiality of Alcohol and Drug Abuse Patient Records regulations: The Federal rules restrict any use of the information to criminally investigate or prosecute any alcohol or drug abuse patient.[facility] the event this information is protected by the Federal Confidentiality of Alcohol and Drug Abuse Patient Records regulations: The Federal rules restrict any use of the information to criminally investigate or prosecute any alcohol or drug abuse patient.[facility] the event this information is protected by the Federal Confidentiality of Alcohol and Drug Abuse Patient Records regulations: The Federal rules restrict any use of the information to criminally investigate or prosecute any alcohol or drug abuse patient.[facility] the event this information is protected by the Federal Confidentiality of Alcohol and Drug Abuse Patient Records regulations: The Federal rules restrict any use of the information to criminally investigate or prosecute any alcohol or drug abuse patient.[facility] the event this information is protected by the Federal Confidentiality of Alcohol and Drug Abuse Patient Records regulations: The Federal rules restrict any use of the information to criminally investigate or prosecute any alcohol or drug abuse patient.[facility] the event this information is protected by the Federal Confidentiality of Alcohol and Drug Abuse Patient Records regulations: The Federal rules restrict any use of the information to criminally investigate or prosecute any alcohol or drug abuse patient.[facility] the event this information is protected by the Federal Confidentiality of Alcohol and Drug Abuse Patient Records regulations: The Federal rules restrict any use of the information to criminally investigate or prosecute any alcohol or drug abuse patient.[facility] the event this information is protected by the Federal Confidentiality of Alcohol and Drug Abuse Patient Records regulations: The Federal rules restrict any use of the information to criminally investigate or prosecute any alcohol or drug abuse patient.[facility] the event this information is protected by the Federal Confidentiality of Alcohol and Drug Abuse Patient Records regulations: The Federal rules restrict any use of the information to criminally investigate or prosecute any alcohol or drug abuse patient.[facility] the event this information is protected by the Federal Confidentiality of Alcohol and Drug Abuse Patient Records regulations: The Federal rules restrict any use of the information to criminally investigate or prosecute any alcohol or drug abuse patient.[facility] HospitalIn the event this information is protected by the Federal Confidentiality of Alcohol and Drug Abuse Patient Records regulations: The Federal rules restrict any use of the information to criminally investigate or prosecute any alcohol or drug abuse patient.[facility] HospitalIn the event this information is protected by the Federal Confidentiality of Alcohol and Drug Abuse Patient Records regulations: The Federal rules restrict any use of the information to criminally investigate or prosecute any alcohol or drug abuse patient.[facility] HospitalIn the event this information is protected by the Federal Confidentiality of Alcohol and Drug Abuse Patient Records regulations: The Federal rules restrict any use of the information to criminally investigate or prosecute any alcohol or drug abuse patient.[facility] HospitalIn the event this information is protected by the Federal Confidentiality of Alcohol and Drug Abuse Patient Records regulations: The Federal rules restrict any use of the information to criminally investigate or prosecute any alcohol or drug abuse patient.[facility] HospitalIn the event this information is protected by the Federal Confidentiality of Alcohol and Drug Abuse Patient Records regulations: The Federal rules restrict any use of the information to criminally investigate or prosecute any alcohol or drug abuse patient.[facility] HospitalIn the event this information is protected by the Federal Confidentiality of Alcohol and Drug Abuse Patient Records regulations: The Federal rules restrict any use of the information to criminally investigate or prosecute any alcohol or drug abuse patient.[facility] HospitalIn the event this information is protected by the Federal Confidentiality of Alcohol and Drug Abuse Patient Records regulations: The Federal rules restrict any use of the information to criminally investigate or prosecute any alcohol or drug abuse patient.[facility] HospitalIn the event this information is protected by the Federal Confidentiality of Alcohol and Drug Abuse Patient Records regulations: The Federal rules restrict any use of the information to criminally investigate or prosecute any alcohol or drug abuse patient.[facility] HospitalIn the event this information is protected by the Federal Confidentiality of Alcohol and Drug Abuse Patient Records regulations: The Federal rules restrict any use of the information to criminally investigate or prosecute any alcohol or drug abuse patient.[facility] HospitalIn the event this information is protected by the Federal Confidentiality of Alcohol and Drug Abuse Patient Records regulations: The Federal rules restrict any use of the information to criminally investigate or prosecute any alcohol or drug abuse patient.[facility] HospitalIn the event this information is protected by the Federal Confidentiality of Alcohol and Drug Abuse Patient Records regulations: The Federal rules restrict any use of the information to criminally investigate or prosecute any alcohol or drug abuse patient.[facility] HospitalIn the event this information is protected by the Federal Confidentiality of Alcohol and Drug Abuse Patient Records regulations: The Federal rules restrict any use of the information to criminally investigate or prosecute any alcohol or drug abuse patient.[facility] HospitalIn the event this information is protected by the Federal Confidentiality of Alcohol and Drug Abuse Patient Records regulations: The Federal rules restrict any use of the information to criminally investigate or prosecute any alcohol or drug abuse patient.[facility] HospitalIn the event this information is protected by the Federal Confidentiality of Alcohol and Drug Abuse Patient Records regulations: The Federal rules restrict any use of the information to criminally investigate or prosecute any alcohol or drug abuse patient.[facility] HospitalIn the event this information is protected by the Federal Confidentiality of Alcohol and Drug Abuse Patient Records regulations: The Federal rules restrict any use of the information to criminally investigate or prosecute any alcohol or drug abuse patient.[facility] HospitalIn the event this information is protected by the Federal Confidentiality of Alcohol and Drug Abuse Patient Records regulations: The Federal rules restrict any use of the information to criminally investigate or prosecute any alcohol or drug abuse patient.[facility] HospitalIn the event this information is protected by the Federal Confidentiality of Alcohol and Drug Abuse Patient Records regulations: The Federal rules restrict any use of the information to criminally investigate or prosecute any alcohol or drug abuse patient.[facility] HospitalIn the event this information is protected by the Federal Confidentiality of Alcohol and Drug Abuse Patient Records regulations: The Federal rules restrict any use of the information to criminally investigate or prosecute any alcohol or drug abuse patient.[facility] HospitalIn the event this information is protected by the Federal Confidentiality of Alcohol and Drug Abuse Patient Records regulations: The Federal rules restrict any use of the information to criminally investigate or prosecute any alcohol or drug abuse patient.[facility] HospitalIn the event this information is protected by the Federal Confidentiality of Alcohol and Drug Abuse Patient Records regulations: The Federal rules restrict any use of the information to criminally investigate or prosecute any alcohol or drug abuse patient.[facility] HospitalIn the event this information is protected by the Federal Confidentiality of Alcohol and Drug Abuse Patient Records regulations: The Federal rules restrict any use of the information to criminally investigate or prosecute any alcohol or drug abuse patient.[facility] HospitalIn the event this information is protected by the Federal Confidentiality of Alcohol and Drug Abuse Patient Records regulations: The Federal rules restrict any use of the information to criminally investigate or prosecute any alcohol or drug abuse patient.[facility] HospitalIn the event this information is protected by the Federal Confidentiality of Alcohol and Drug Abuse Patient Records regulations: The Federal rules restrict any use of the information to criminally investigate or prosecute any alcohol or drug abuse patient.[facility] HospitalIn the event this information is protected by the Federal Confidentiality of Alcohol and Drug Abuse Patient Records regulations: The Federal rules restrict any use of the information to criminally investigate or prosecute any alcohol or drug abuse patient.[facility] HospitalIn the event this information is protected by the Federal Confidentiality of Alcohol and Drug Abuse Patient Records regulations: The Federal rules restrict any use of the information to criminally investigate or prosecute any alcohol or drug abuse patient.[facility] HospitalIn the event this information is protected by the Federal Confidentiality of Alcohol and Drug Abuse Patient Records regulations: The Federal rules restrict any use of the information to criminally investigate or prosecute any alcohol or drug abuse patient.[facility] HospitalIn the event this information is protected by the Federal Confidentiality of Alcohol and Drug Abuse Patient Records regulations: The Federal rules restrict any use of the information to criminally investigate or prosecute any alcohol or drug abuse patient.[facility] HospitalIn the event this information is protected by the Federal Confidentiality of Alcohol and Drug Abuse Patient Records regulations: The Federal rules restrict any use of the information to criminally investigate or prosecute any alcohol or drug abuse patient.[facility] HospitalIn the event this information is protected by the Federal Confidentiality of Alcohol and Drug Abuse Patient Records regulations: The Federal rules restrict any use of the information to criminally investigate or prosecute any alcohol or drug abuse patient.[facility] HospitalIn the event this information is protected by the Federal Confidentiality of Alcohol and Drug Abuse Patient Records regulations: The Federal rules restrict any use of the information to criminally investigate or prosecute any alcohol or drug abuse patient.[facility] HospitalIn the event this information is protected by the Federal Confidentiality of Alcohol and Drug Abuse Patient Records regulations: The Federal rules restrict any use of the information to criminally investigate or prosecute any alcohol or drug abuse patient.[facility] HospitalIn the event this information is protected by the Federal Confidentiality of Alcohol and Drug Abuse Patient Records regulations: The Federal rules restrict any use of the information to criminally investigate or prosecute any alcohol or drug abuse patient.[facility] HospitalIn the event this information is protected by the Federal Confidentiality of Alcohol and Drug Abuse Patient Records regulations: The Federal rules restrict any use of the information to criminally investigate or prosecute any alcohol or drug abuse patient.[facility] HospitalIn the event this information is protected by the Federal Confidentiality of Alcohol and Drug Abuse Patient Records regulations: The Federal rules restrict any use of the information to criminally investigate or prosecute any alcohol or drug abuse patient.[facility] HospitalIn the event this information is protected by the Federal Confidentiality of Alcohol and Drug Abuse Patient Records regulations: The Federal rules restrict any use of the information to criminally investigate or prosecute any alcohol or drug abuse patient.[facility] HospitalIn the event this information is protected by the Federal Confidentiality of Alcohol and Drug Abuse Patient Records regulations: The Federal rules restrict any use of the information to criminally investigate or prosecute any alcohol or drug abuse patient.[facility] HospitalIn the event this information is protected by the Federal Confidentiality of Alcohol and Drug Abuse Patient Records regulations: The Federal rules restrict any use of the information to criminally investigate or prosecute any alcohol or drug abuse patient.[facility] HospitalIn the event this information is protected by the Federal Confidentiality of Alcohol and Drug Abuse Patient Records regulations: The Federal rules restrict any use of the information to criminally investigate or prosecute any alcohol or drug abuse patient.[facility] HospitalIn the event this information is protected by the Federal Confidentiality of Alcohol and Drug Abuse Patient Records regulations: The Federal rules restrict any use of the information to criminally investigate or prosecute any alcohol or drug abuse patient.[facility] HospitalIn the event this information is protected by the Federal Confidentiality of Alcohol and Drug Abuse Patient Records regulations: The Federal rules restrict any use of the information to criminally investigate or prosecute any alcohol or drug abuse patient.[facility] HospitalIn the event this information is protected by the Federal Confidentiality of Alcohol and Drug Abuse Patient Records regulations: The Federal rules restrict any use of the information to criminally investigate or prosecute any alcohol or drug abuse patient.[facility] HospitalIn the event this information is protected by the Federal Confidentiality of Alcohol and Drug Abuse Patient Records regulations: The Federal rules restrict any use of the information to criminally investigate or prosecute any alcohol or drug abuse patient.[facility] HospitalIn the event this information is protected by the Federal Confidentiality of Alcohol and Drug Abuse Patient Records regulations: The Federal rules restrict any use of the information to criminally investigate or prosecute any alcohol or drug abuse patient.[facility] HospitalIn the event this information is protected by the Federal Confidentiality of Alcohol and Drug Abuse Patient Records regulations: The Federal rules restrict any use of the information to criminally investigate or prosecute any alcohol or drug abuse patient.[facility] HospitalIn the event this information is protected by the Federal Confidentiality of Alcohol and Drug Abuse Patient Records regulations: The Federal rules restrict any use of the information to criminally investigate or prosecute any alcohol or drug abuse patient.[facility] HospitalIn the event this information is protected by the Federal Confidentiality of Alcohol and Drug Abuse Patient Records regulations: The Federal rules restrict any use of the information to criminally investigate or prosecute any alcohol or drug abuse patient.[facility] HospitalIn the event this information is protected by the Federal Confidentiality of Alcohol and Drug Abuse Patient Records regulations: The Federal rules restrict any use of the information to criminally investigate or prosecute any alcohol or drug abuse patient.[facility] HospitalIn the event this information is protected by the Federal Confidentiality of Alcohol and Drug Abuse Patient Records regulations: The Federal rules restrict any use of the information to criminally investigate or prosecute any alcohol or drug abuse patient.[facility] HospitalIn the event this information is protected by the Federal Confidentiality of Alcohol and Drug Abuse Patient Records regulations: The Federal rules restrict any use of the information to criminally investigate or prosecute any alcohol or drug abuse patient.[facility] HospitalIn the event this information is protected by the Federal Confidentiality of Alcohol and Drug Abuse Patient Records regulations: The Federal rules restrict any use of the information to criminally investigate or prosecute any alcohol or drug abuse patient.[facility] HospitalIn the event this information is protected by the Federal Confidentiality of Alcohol and Drug Abuse Patient Records regulations: The Federal rules restrict any use of the information to criminally investigate or prosecute any alcohol or drug abuse patient.[facility] HospitalIn the event this information is protected by the Federal Confidentiality of Alcohol and Drug Abuse Patient Records regulations: The Federal rules restrict any use of the information to criminally investigate or prosecute any alcohol or drug abuse patient.[facility] HospitalIn the event this information is protected by the Federal Confidentiality of Alcohol and Drug Abuse Patient Records regulations: The Federal rules restrict any use of the information to criminally investigate or prosecute any alcohol or drug abuse patient.[facility] HospitalIn the event this information is protected by the Federal Confidentiality of Alcohol and Drug Abuse Patient Records regulations: The Federal rules restrict any use of the information to criminally investigate or prosecute any alcohol or drug abuse patient.[facility] HospitalIn the event this information is protected by the Federal Confidentiality of Alcohol and Drug Abuse Patient Records regulations: The Federal rules restrict any use of the information to criminally investigate or prosecute any alcohol or drug abuse patient.[facility] HospitalIn the event this information is protected by the Federal Confidentiality of Alcohol and Drug Abuse Patient Records regulations: The Federal rules restrict any use of the information to criminally investigate or prosecute any alcohol or drug abuse patient.[facility] HospitalIn the event this information is protected by the Federal Confidentiality of Alcohol and Drug Abuse Patient Records regulations: The Federal rules restrict any use of the information to criminally investigate or prosecute any alcohol or drug abuse patient.[facility] HospitalIn the event this information is protected by the Federal Confidentiality of Alcohol and Drug Abuse Patient Records regulations: The Federal rules restrict any use of the information to criminally investigate or prosecute any alcohol or drug abuse patient.[facility] HospitalIn the event this information is protected by the Federal Confidentiality of Alcohol and Drug Abuse Patient Records regulations: The Federal rules restrict any use of the information to criminally investigate or prosecute any alcohol or drug abuse patient.[facility] HospitalIn the event this information is protected by the Federal Confidentiality of Alcohol and Drug Abuse Patient Records regulations: The Federal rules restrict any use of the information to criminally investigate or prosecute any alcohol or drug abuse patient.[facility] HospitalIn the event this information is protected by the Federal Confidentiality of Alcohol and Drug Abuse Patient Records regulations: The Federal rules restrict any use of the information to criminally investigate or prosecute any alcohol or drug abuse patient.[facility] HospitalIn the event this information is protected by the Federal Confidentiality of Alcohol and Drug Abuse Patient Records regulations: The Federal rules restrict any use of the information to criminally investigate or prosecute any alcohol or drug abuse patient.[facility] HospitalIn the event this information is protected by the Federal Confidentiality of Alcohol and Drug Abuse Patient Records regulations: The Federal rules restrict any use of the information to criminally investigate or prosecute any alcohol or drug abuse patient.[facility] HospitalIn the event this information is protected by the Federal Confidentiality of Alcohol and Drug Abuse Patient Records regulations: The Federal rules restrict any use of the information to criminally investigate or prosecute any alcohol or drug abuse patient.[facility] HospitalIn the event this information is protected by the Federal Confidentiality of Alcohol and Drug Abuse Patient Records regulations: The Federal rules restrict any use of the information to criminally investigate or prosecute any alcohol or drug abuse patient.[facility] HospitalIn the event this information is protected by the Federal Confidentiality of Alcohol and Drug Abuse Patient Records regulations: The Federal rules restrict any use of the information to criminally investigate or prosecute any alcohol or drug abuse patient.[facility] HospitalIn the event this information is protected by the Federal Confidentiality of Alcohol and Drug Abuse Patient Records regulations: The Federal rules restrict any use of the information to criminally investigate or prosecute any alcohol or drug abuse patient.[facility] HospitalIn the event this information is protected by the Federal Confidentiality of Alcohol and Drug Abuse Patient Records regulations: The Federal rules restrict any use of the information to criminally investigate or prosecute any alcohol or drug abuse patient.[facility] HospitalIn the event this information is protected by the Federal Confidentiality of Alcohol and Drug Abuse Patient Records regulations: The Federal rules restrict any use of the information to criminally investigate or prosecute any alcohol or drug abuse patient.[facility] Care Teams (unrecognized sec tion and content) Tape Transferrer Relationship Specialty Start Date End Date Ren Carlson MD [address] [facility] [place] [address] PCP - General 04 Tape Transferrer Relationship Specialty Start Date End Date Ren Carlson MD [address] [facility] [place] [place] [address] PCP - General 04 Tape Transferrer Relationship Specialty [place] [address] [place] [address], [place] [address] PCP - General 04 Tape Transferrer Relationship Specialty [place] [address] [place] [address], [place] [address] PCP - General 04 Tape Transferrer Relationship Specialty Start Date End Date Ren Carlson MD [address] [facility] [place] [place] [address] PCP - General 04 Tape Transferrer Relationship Specialty Start Date End Date Ren Carlson MD [address] [facility] [place] [place] [address] PCP - General 04 Tape Transferrer Relationship Specialty Start Date End Date Ren Carlson MD [address] [facility] [place] [place] [address] PCP - General 04 Tape Transferrer Relationship Specialty Start Date End Date Ren Carlson MD [address] [facility] [place] [place] [address] PCP - General 04 Tape Transferrer Relationship Specialty Start Date End Date Ren Carlson MD [address] [facility] [place] [place] [address] PCP - General 04 Tape Transferrer Relationship Specialty Start Date End Date Ren Carlson MD [address] [place], [place] [address] PCP - General 04 Tape Transferrer Relationship Specialty Start Date End Date Ren Carlson MD [address] [place], [place] [id number] PCP - General 04 Team Status: Active [...] 25, 2024 End: May 27, 2024 Dr. Cherry Simons MD Admit Provider Active Start: May 25, 2024 End: May 27, 2024 Dr. Cherry Simons MD Attending Provider Active Start: May 25, 2024 End: May 27, 2024 Dr. Cherry Simons MD Referring Provider Active Start: May [...] End: December 07, 2024 Dr. Vlad Jay DO Emergency Provider Active Start: December 07, 2024 End: December 07, 2024 Team Status: Active Member Role/Relationship Status Dates No Primary Care Physician Primary Care Provider Active Start: December 08, 2024 Dr. Vlad Jay DO Emergency Provider Active Start: December 08, 2024 Dr. Gilbert Whittington MD Admit Provider Active Start: December 08, 2024 Dr. Gilbert Whittington MD Attending Provider Active Start: December 08, 2024 Reason for Visit (unrecogniz ed section and content) Reason Comments Physical Therapy Specialty Diagnoses / Procedures Referred By Contac t Referred To Contact [facility] Diagnoses S/P knee surgery Procedures CONSULT TO PHYSICAL THERAPY PHYSICAL THERAPY EVALUATION HIGH COMPLEX 45 MINS Mayda Solares DO [address] [place] [address] [facility] [address] [address] Referral ID Status Reason Start Date Expiration Date Visits Requested Visits Authorized [id number] Authorized Auto-Generat ed Referral 05/19/2023 05/18/2024 30 30 Reason Comments PT Progress Note Specialty Diagnoses / Procedures Referred By Contact Referred To Contact [facility] Diagnoses Patellar dislocation, left, subsequent encounter S/P orthopedic surgery, follow-up exam Procedures CONSULT TO PHYSICAL THERAPY PHYSICAL THERAPY EVALUATION HIGH COMPLEX 45 MINS THERAPEUTIC EXERCISES RE, EA 15 MIN. Otoniel Gates PA-C [id number] [place] [address] [facility] [address] [address] Referral ID Status Reason Start Date Expiration Date Visits Requested Visits Authorized [id number] Authorized Auto-Generat ed Referral 12/26/2021 05/18/2022 99 99 Reason Comments New Knee Pain Swelling Reason Comments [facility] App[facility]. Scheduling Specialty Diagnoses / Procedures Referred By Contac t Referred To Contact [facility] Diagnoses Chronic pain of left knee Knee OCD Procedures MRI KNEE WO IVCON LT MRI ANY JT LOWER EXTREM W/O CONTRAST Mayda Lemons, [address] [place] [address] Mr Imaging Referral ID Status Reason Start Date Expiration Date V isits Requested Visits Authorized [id number] Closed Auto-Generate d Referral 09/28/2021 10/27/2021 1 [...] RE, EA 15 MIN. Otoniel Gates PA-C [id number] [place] [address] [facility] [address] [address] Reason Comments Post Op 7 weeks 6 [...] JT LOWER EXTREM W/O CONTRAST Mayda Lemons, [address] [facility] [address] [place] [address] [place] [id number] [place] [id number] Referral ID Status Reason Start Date Expiration Date V isits Requested Visits Authorized [id number] Closed Auto-Generate d Referral 07/31/2023 11/20/2023 1 1 Reason Comments Nausea x 3 days, 7 weeks pr egnant Reason Comments Yearly Exam Contact lens evaluation Reason Comments Initial OB Visit Reason Comments PRAF Initial PRAF Reason Comments [place] Specialty Diagnoses / Procedures Referred By Contac t Referred To Contact [facility] Diagnoses 12 weeks gestation of Procedures NUCHAL TRANSLUCENCY WHI US NUCHAL TRANSLUCENCY 1ST GESTATION Anitra Caldwell APRN.CNM [address] [place] [address] [address] Referral ID Status Reason Start Date Expiration Date Visits Requested Visits Authorized [id number] New Request Auto-Generat ed Referral 11/28/2023 11/27/2024 1 1 Reason Onset Date Comments Care 11/28/2023 Reason Comments Nausea & Vomiting Reason Comments Nausea & Vomiting With 14 weeks pregna ncy Reason Onset Date Comments Care 12/23/2023 Reason Onset Date Comments Care 01/23/2024 Specialty Diagnoses / Procedures Referred By Contac t Referred To Contact [facility] Diagnoses Supervision of normal first teen in second trimester Procedures OBSTETRIC ULTRASOUND WHI US PREG UTERUS AFTER 1ST TRIMEST 1/ GESTATION Anitra Caldwell APRN.CNM [address] [place] [address] [address] Referral ID Status Reason Start Date Expiration Date V isits Requested Visits Authorized [id number] Closed Auto-Generate d Referral 11/28/2023 11/27/2024 1 1 Reason Comments Hand Iii Cutter - Other PRAF Reason Comments ULTRASOUND Reason Onset Date Comments Refill Request 02/12/2024 Reason Onset Date Comments Care 02/25/2024 Reason Comments Centering Reason Comments Sore Throat Runny nose x 2 days Reason Comments Results Reason Onset Date Comments Care 03/16/2024 Reason Onset Date Comments Care 03/29/2024 Reason Onset Date Comments Care 04/21/2024 Specialty Diagnoses / Procedures Referred By Contac t Referred To Contact [facility] Diagnoses Low-lying placenta Supervision of normal first teen in second trimester Procedures OBSTETRIC ULTRASOUND WHI US PREG UTERUS AFTER 1ST TRIMEST GESTATION Anitra Caldwell APRN.[facility] [address] [place] [address] [address] Referral ID Status Reason Start Date Expiration Date V isits Requested Visits Authorized [id number] Closed Auto-Generate d Referral 01/26/2024 01/25/2025 1 [...] 11/15/2024 Specialty Diagnoses / Procedures Referred By Contac t Referred To Contact [facility] Diagnoses Encounter for IUD insertion Procedures INSERT INTRAUTERINE DEVICE INSERT INTRAUTERINE DEVICE Tran Gaytan APRN.[facility] [address] [place] [address] Phone: tel: fax: [address] [address] Referral ID Status Reason Start Date Expiration Date V isits Requested Visits Authorized [id number] Closed Auto-Generate d Referral 07/28/2024 07/28/2025 1 [...] BE BASED ON THE PRIMARY CLINICAL RECORDS. [employer] [facility]. provides no warranty or guarantee of the accuracy or completeness of information in this document.
--- NOTE | 2024-12-08 09:22 | PCM.RX.CS ---
Consult Antibiotic Management Pharmacy has been consulted to manage selected antibiotic: Vancomycin Type of Intervention Type of Consult: New start Suspected Infection Suspected Infection: Skin/Soft tissue Labs Labs: Sodium 139 mmol/L (133-145) 12/08/24 06:27 Potassium 3.3 mmol/L (3.3-5.1) 12/08/24 06:27 Chloride 104 mmol/L (98-108) 12/08/24 06:27 Carbon Dioxide 23.9 mmol/L (21.0-32.0) 12/08/24 06:27 Anion Gap 12 (5-15) 12/08/24 06:27 BUN 8 mg/dL (4-19) 12/08/24 06:27 Creatinine 0.69 mg/dL (0.70-1.20) L 12/08/24 06:27 Est GFR (MDRD) Non-Af 127 (>60) 12/08/24 06:27 BUN/Creatinine Ratio 11.7 RATIO (10-20) 12/08/24 06:27 Glucose 100 mg/dL (70-99) H 12/08/24 06:27 Dosing Weight Weight used for dosin.2 kg Estimated Creatinine Clearance Estimated Creatinine Clearance: 112 ML/MIN Goal Trough Goal Trough: 15-20 mcg/mL Pharmacy Plan for Drug Dosing Pharmacy Plan for Drug Dosing: Pharmacy Service will continue to monitor and adjust dosing as required. NEW START IV VANCOMYCIN Consulting Physician: DR. VASQUEZ Indication: CELLULITIS SECONDARY TO CAT BITE Goal Trough: 15-20 SrCr: 0.69 CrCl: 112 Comments: 19 YOF PRESENTING TO THE HOSPITAL AFTER CAT BITE YESTERDAY. WAS GIVEN AUGMENTIN X1 YESTERDAY. CURRENTLY AFEBRILE OTHER ABX: ZOSYN Vancomycin Dose: LD 1000 MG ONCE IN THE ER @ 0745 + 750 MG Q8H WITH FIRST DOSE 12/08 @ 1600 Pending Level: 12/09 @ 0730 Date/Time Labs Ordered Labs to be done on [date and time ordered]: VANCOMYCIN TROUGH 12/09 @ 0930
--- NOTE | 2024-12-08 09:33 | HP.PCM.HOS_ITS ---
HPI - General General Date of Admission: 12/08/24 HPI Narrative ORAL ANDRE, is a 19 F who presents to the hospital after a cat bite to her distal second finger on her right hand. She has some redness and swelling around that and had presented to the ER yesterday and was started on antibiotics and discharged home however she represented this morning with streaking up her right arm. She has some minimal tenderness but nothing major and distal joints and more proximal joints. Plastics was consulted recommended IV antibiotics as well as hand elevation and will do a wash on the inpatient side. She did receive Zosyn and vancomycin in the ER. She is afebrile without a leukocytosis [facility] Medical History Anxiety Encounter for screening for COVID-19 Home Medications ?Medication ?Instructions ?Recorded ?Last Taken ?Type vit no.95-ferrous 1 tab PO DAILY SUPPLEMENT 1 05/21/23 05/24/24 21:00 History fumarate 28 mg-folic acid 800 mcg 1 TA B tablet () pantoprazole 40 mg granules 40 mg PO PRN INDIGESTION 0 05/25/24 05/24/24 09:00 History delayed-release for susp in packet 40 mg (Protonix) sennosides 8.6 mg-docusate sodium 1 - 2 tab PO DAILY P RN PRN 05/27/24 Unknown Rx 50 mg tablet (Stimulant Laxative Constipation #30 tabs Plus) hydrocodone-acetaminophen 5-325mg 1 tab PO Q4H PRN pako n 2 days #8 08/17/24 Unknown Rx 5mg-325mg tabs amoxicillin 875 mg-potassium 1 tab PO BID 10 days #20 tabs 12/07/24 Unknown Rx clavulanate 125 mg tablet oxycodone-acetaminophen 5 mg-325 1 tab PO Q6H PRN pain 3 days #12 12/07/24 Unknown Rx mg tablet (Percocet) tabs sertraline 25 mg tablet (Zoloft) 50 mg PO DAILY ANXIET Y 12/08/24 Unknown History Allergy/AdvReac Type Severity Reaction Status Date / Time lactase (From [employer]) Allergy Mild Abdominal Verified 12/05/24 10:40 cramping Family History Grandfather Leukemia DVT (deep venous thrombosis) Grandmother Breast cancer Grandmother Diabetes Heart disease Lung cancer Surgical History History of surgery History of removal of cyst H/O tooth extraction Social History Smoking Status: Never smoker alcohol intake: never what type of physical activity do you participate in: additional details: gym, sports seatbelt use: always ROS Constitutional Constitutional: Denies chills, fatigue, fever(s) or malaise Eyes Eyes: Denies blurry vision ENT HEENT: Denies headache(s) or nasal discharge Cardiovascular Cardiovascular: Denies chest pain, dyspnea on exertion or syncope Respiratory/Chest Respiratory/Chest: Denies cough, shortness of breath at rest or shortness of breath with exertion Gastrointestinal Gastrointestinal: Denies constipation, diarrhea, nausea or vomiting Genitourinary Genitourinary: Denies dysuria Integumentary Integumentary: Reports wounds Neurologic Neurologic: Denies focal weakness, numbness or tremor(s) Psychiatric Psychiatric: Denies anxiety or depression Vital Signs Vital Signs Vital Signs: 12/08/24 06:03 12/08/24 07:05 12/08/24 07:44 Temperature 98.6 F 98.9 F 98.6 F Temperature Source Oral Oral Pulse Rate 84 89 57 L Pulse Strength Respiratory Rate 16 18 20 H Respiratory Effort Respiratory Depth Respiratory Pattern Blood Pressure 120/87 H 115/78 112/87 H Blood Pressure Mean 98 90 95 Blood Pressure Source Blood Pressure Position Blood Pressure Location Pulse Ox 100 98 100 Oxygen Delivery Method Room Air Room Air 12/08/24 08:18 12/08/24 08:30 12/08/24 09:27 Temperature 98.2 F Temperature Source Oral Pulse Rate 63 Pulse Strength Normal (2+) Respiratory Rate 16 Respiratory Effort Normal Non-Labored Respiratory Depth Normal Respiratory Pattern Normal Blood Pressure 109/80 Blood Pressure Mean 89 Blood Pressure Source Monitor Blood Pressure Position Semi-Fowlers Blood Pressure Location Left Arm Pulse Ox 100 Oxygen Delivery Method Room Air Room Air Weight Weight: 132 lb 11.492 oz Body Mass Index (BMI) 22.8 Physical Exam Narrative General: Alert, Oriented x3, Cooperative, No apparent distress HEENT: Atraumatic, PERRLA, EOMI, Normocephalic Oral: Moist Mucosa Neck: Supple, No JVD Lungs: Clear to auscultation, Normal air movement, No rhonchi, No wheeze, No rales Cardiovascular: Regular rate, Regular Rhythm, Normal S1, Normal S2, No murmurs Abdomen: Soft, Non Tender, Non-Distended, No Hepato-splenomegaly Extremities: No edema, Capillary Refill Less than 3 Seconds Skin: Multiple areas of cat scratches and a bite on her right second finger distally with some surrounding redness and then some streaking up her right forearm and upper arm Musculoskeletal: No Tenderness to Palpation of Joints or Extremities Neurological: No focal neurological deficits, Motor Exam 5/5 strength throughout, Sensory exam intact to light touch and pain Psych/Mental Status: Normal Affect, Appropriate Results Lab / Micro Data 12/08/24 06:27 12/08/24 06:27 Labs: Laboratory Results - last 24 hr 12/08/24 06:27: WBC 4.9, RBC 4.10 L, Hgb 12.2, Hct 34.7 L, MCV 84.6, MCH 29.8, MCHC 35.2, RDW Std Deviation 41.1, RDW Coeff of Kirsten 13.4, Plt Count 159, MPV 11.2, Immature Gran % (Auto) 0.200, Neut % (Auto) 49.2, Lymph % (Auto) 41.4 H, [place] % (Auto) 7.6, Eos % (Auto) 1.6, Baso % (Auto) 0.0, Absolute Neuts (auto) 2.4, Absolute Lymphs (auto) 2.03, Nucleated RBC % 0, ESR < 1, Sodium 139, Potassium 3.3, Chloride 104, Carbon Dioxide 23.9, Anion Gap 12, BUN 8, C reatinine 0.69 L, Estim Creat Clear Calc 112.31, Est GFR (MDRD) Non-Af 127, BUN/Creatinine Ratio 11.7, Glucose 100 H, Lactic Acid < 1.0, Calcium 9.1, C- React Prot Ext Range < 3.00 Imaging Radiology Impression Hand X-Ray 12/08/24 06:46 IMPRESSION: No fracture or dislocation is identified. [facility] Assessment & Plan Assessment/Plan (1) Cat bite: PLAN: Plan 1. Cat bite with localized infection and streaking up her arm ? Continue with IV antibiotics ? Appreciate plastics assistance ? She will keep arm elevated ? Pain management 2. Anxiety ? Stable ? Continue with Zoloft 3. GERD ? Stable ? Continue with as needed PPI DVT: Ambulation Charges/Coding Visit Charges Inpatient E&M: 26407 Init Hosp L2
[2024-12-08] MEDS: 0.9% Saline Lock 10 ML Syringe IV (12:37)
[2024-12-08] MEDS: Prenatal Vits Tablet 1 TABLET PO (12:37)
--- NOTE | 2024-12-08 12:40 | WOUNDNOTE ---
Dr Min had been in to reassess the right hand. small punch biopsy made to the right long finger to allow for better drainage and improved soaks. pt soaked hands for approx 20 mins. pat dry. applied dry dressings and wrapped with hayden. pt tolerated well. cultures had been obtained and sent as ordered.
[2024-12-08] MEDS: Lidocaine 1%/Epi 1:100 (30ml) 30 ML VIAL INFILT (12:46)
--- NOTE | 2024-12-08 13:05 | RAD_ITS ---
PROCEDURE: HAND MIN 3 VIEWS 12/08/2024 REASON FOR EXAM: LEFT HAND BITE TECHNIQUE: HAND MIN 3 VIEWS COMPARISON: None. FINDINGS: Bones: No acute fracture. No aggressive osseous lesions. Joints: Normal alignment. Joint spaces preserved. No arthropathic features. Soft tissues: No soft tissue swelling. No subcutaneous gas. Other: No radiopaque foreign body. RAD/Hand Min 3 Views IMPRESSION: NEGATIVE HAND SERIES Reading Location: [id number]
--- NOTE | 2024-12-08 16:44 | CASEMGMT ---
Addendum entered by Carlos Chen 12/08/24 17:01: 12:15: ADRIEN GRANDE to room. Pt sitting up in bed, soaking her hands. Ashlyn, wound nurse in room. Per Ashlyn, pt's wound care will be soaking and dry dressing. Pt states is comfortable with doing this @ home. She states she lives w/her 6-month old baby. Family is watching her baby while pt is in the hospital. Pt states she received [facility] list in ED, but that she has lost it and would like another one. Same provided at this time. Pt states would like to get any new Rx's from [facility] retail pharmacy @ [place] [employer] updated. She denies having other discharge needs or concerns. Original Note: ADRIEN GRANDE NOTE:? Dx:?Cat Bite Cellulitis Strata:?2 6 click:?24 No therapy ordered.? No CM consult ordered.? Pt does not have a PCP listed in [employer]. Per ED SW, info has been provided. Medical record reviewed and patient evaluated for identification of discharge planning needs. Patient does not currently demonstrate a need for discharge planning by ADRIEN GRANDE. CM will continue to be available for any discharge needs that may arise, and intervene as indicated. Greyson BISWAS RN, CM
[2024-12-08] MEDS: Ketorolac 30 MG/ML Syringe IV (16:53)
[2024-12-08] MEDS: Vancomycin HCl 750 MG in 0.9% Normal Saline (250mL Bag) 250 ML 250 MG IV (16:53)
[2024-12-09] MEDS: Vancomycin HCl 750 MG in 0.9% Normal Saline (250mL Bag) 250 ML 250 MG IV (00:15)
[2024-12-09] MEDS: Piperacil/Tazobactam 3.375 GM in 0.9% Normal Saline (50mL MB+) 50 ML IV ×3 (05:00→21:20)
[2024-12-09 05:08] VITALS: BP 103/59; PULSE 44; RESP 14; TEMP 36.6; O2SAT 99
--- NOTE | 2024-12-09 07:18 | PCM.PN.SRG ---
Subjective Subjective Pain improved. Complaint with elevation of the extremities. Objective Data Objective Data Left hand xray reviewed No foreign bodies or fractures Vital Signs: Vital Signs Temp Pulse Resp BP Pulse Ox O2 Del Method 97.8 F 44 L 14 103/59 L 99 Room Air 12/09/24 05:08 12/09/24 05:08 12/09/24 05:08 12/09/24 05:08 12/09/24 05:08 12/09/24 05:08 Oxygen Delivery Method Room Air Weight: 132 lb 11.492 oz Body Mass Index (BMI) 22.8 Intake & Output: Intake and Output for Last 24 Hours 12/07/24 12/08/24 12/09/24 23:59 23:59 23:59 Intake Total 685 / 685 265 / 265 Balance 685 / 685 265 / 265 Lab / Micro Data 12/08/24 06:27 12/08/24 06:27 Labs: Laboratory Results - last 24 hr 12/08/24 06:27: Sodium 139, Potassium 3.3, Chloride 104, Carbon Dioxide 23.9, Anion Gap 12, BUN 8, Creatinine 0.69 L, Estim Creat Clear Calc 112.31, Est GFR (MDRD) Non-Af 127, BUN/Creatinine Ratio 11.7, Glucose 100 H, Lactic Acid < 1.0, Calcium 9.1, C-React Prot Ext Range < 3.00 Radiography Diagnostic Testing: Radiology Impression Hand X-Ray 12/08/24 06:46 IMPRESSION: No fracture or dislocation is identified. Reading [facility] Hand X-Ray 12/08/24 13:05 IMPRESSION: NEGATIVE HAND SERIES Reading Location: [facility] Physical Exam Narrative Right upper Extremity Inspection: Area of induration on the right index fingertip but no fluid collections. No longer any streaking erythema (improved) Palpation: Improved pain overall to palpation (able to touch) No tenderness over the A1 ella No pain with excursion of the index finger flexor tendon or with passive extension No pain along the flexor sheath Motor: Able to bend and extend all MP, PIP, and DIP joints. Sensory: Intact to light touch on the radial and ulnar borders. Vascular: Finger tips are warm and well perfused with <2 second capillary refill. Left upper Extremity Inspection: Bite wound over the left dorsal thumb without any fluid collections Palpation: Improved pain overall to palpation (able to touch) Motor: Able to bend and extend all MP, PIP, and DIP joints. Sensory: Intact to light touch on the radial and ulnar borders. Vascular: Finger tips are warm and well perfused with <2 second capillary refill. Assessment & Plan Assessment/Plan (1) Cellulitis: (2) Cat bite: PLAN: Plan Doing well overall. Improving. Needs another day of antibiotics and TID Dial soap soaks F/u cultures Charges/Coding Visit Charges Inpatient E&M: 96202 Subs Hosp L1
[2024-12-09 07:45] LABS: Hematocrit 33.0 % (37-47); Hemoglobin 11.5 g/dL (12.0-15.0); Immature Granulocytes Count 0.010 X10^3/uL (0.0-0.0); Mean Corp Hgb Conc 34.8 g/dL (32-36); Mean Corpuscular Volume 84.2 fL (81-99); Mean Platelet Vol. 11.1 fl (6.2-12.0); NRBC Flagged by Analyzer 0 % (0-5); Platelet Count 127 K/mm3 (150-450); RBC Distribution Width CV 13.5 % (11.6-14.6); RBC Distribution Width SD 41.5 fl (35.1-43.9); Red Blood Count 3.92 M/mm3 (4.2-5.4); White Blood Count 3.4 K/mm3 (4.4-11.0)
[2024-12-09 08:08] LABS: Anion Gap 7 (5-15); BUN 8 mg/dL (4-19); BUN/Creat Ratio 11.1 RATIO (10-20); Calcium,Total 8.7 mg/dL (7.6-11.0); Carbon Dioxide 24.7 mmol/L (21.0-32.0); Chloride 108 mmol/L (98-108); Estimated Creatinine Clearance 113.96 ml/min (50-250); Glucose 94 mg/dL (70-99); Potassium 4.1 mmol/L (3.3-5.1)
[2024-12-09 08:10] VITALS: BP 120/86; PULSE 51; RESP 16; TEMP 36.2; O2SAT 97
[2024-12-09 08:10] LABS: Vancomycin, Trough Level 11.7 ug/mL (5.0-15.0)
--- NOTE | 2024-12-09 08:41 | PCM.RX.CS ---
Consult Antibiotic Management Pharmacy has been consulted to manage selected antibiotic: Vancomycin Type of Intervention Type of Consult: Follow-up Suspected Infection Suspected Infection: Skin/Soft tissue Prior Doses of Antibiotics Prior Doses of Antibiotics Received/Current Regimen: LD: 1000 MG 12/08 @ 0745 IN ER MD: 750 MG Q8H X 2 DOSES STARTING 12/08 @ 1654 Labs Labs: Sodium 139 mmol/L (133-145) 12/09/24 07:32 Potassium 4.1 mmol/L (3.3-5.1) 12/09/24 07:32 Chloride 108 mmol/L (98-108) 12/09/24 07:32 Carbon Dioxide 24.7 mmol/L (21.0-32.0) 12/09/24 07:32 Anion Gap 7 (5-15) 12/09/24 07:32 BUN 8 mg/dL (4-19) 12/09/24 07:32 Creatinine 0.68 mg/dL (0.70-1.20) L 12/09/24 07:32 Est GFR (MDRD) Non-Af 128 (>60) 12/09/24 07:32 BUN/Creatinine Ratio 11.1 RATIO (10-20) 12/09/24 07:32 Glucose 94 mg/dL (70-99) 12/09/24 07:32 Vancomycin Trough 11.7 ug/mL (5.0-15.0) 12/09/24 07:32 Dosing Weight Weight used for dosin lb 11.492 oz Estimated Creatinine Clearance Estimated Creatinine Clearance: 114 Goal Trough Goal Trough: 15-20 mcg/mL Pharmacy Plan for Drug Dosing Pharmacy Plan for Drug Dosing: Pharmacy Service will continue to monitor and adjust dosing as required. IV VANCOMYCIN DOSE ADJUSTMENT Consulting Physician: PEDRO Indication: CELLULITIS SECONDARY TO CAT BITE Goal Trough: 15-20 SrCr: 0.68 CrCl: 114 Comments: 19 YOF PRESENTING TO THE HOSPITAL AFTER CAT BITE YESTERDAY. WAS GIVEN AUGMENTIN X1 YESTERDAY. CURRENTLY AFEBRILE Other abx: ZOSYN Vancomycin Dose: (LD 12/08 IN ER + 2 DOSES OF 750 MG Q8H) VANC TROUGH: 12/09 @ 0810 = 11.7 PLAN: INCREASING VANC DOSE TO 1000 MG Q8H DUE TO SUBTHERAPEUTIC TROUGH LEVEL Pending Level: 12/10 @ 0730 Date/Time Labs Ordered Labs to be done on [date and time ordered]: VANC TROUGH 12/10 @ 1036
[2024-12-09] MEDS: 0.9% Saline Lock 10 ML Syringe IV (08:50)
--- NOTE | 2024-12-09 08:56 | PN.HOSP_ITS ---
Subjective Subjective Doing well, the redness is much improved as has the pain. The tip of her second finger on the right hand is also back to normal Objective Data Objective Data Vital Signs: Vital Signs Temp Pulse Resp BP Pulse Ox O2 Del Method 97.1 F L 51 L 16 120/86 H 97 Room Air 12/09/24 08:10 12/09/24 08:10 12/09/24 08:10 12/09/24 08:10 12/09/24 08:10 12/09/24 08:10 Oxygen Delivery Method Room Air Weight: 132 lb 11.492 oz Body Mass Index (BMI) 22.8 Intake & Output: Intake and Output for Last 24 Hours 12/08/24 12/09/24 12/10/24 03:59 03:59 03:59 Intake Total 950 / 950 Balance 950 / 950 Lab / Micro Data 12/09/24 07:32 12/09/24 07:32 Labs: Laboratory Results - last 24 hr 12/09/24 07:32: WBC 3.4 L, RBC 3.92 L, Hgb 11.5 L, Hct 33.0 L, MCV 84.2, MCH 29.3, MCHC 34.8, RDW Std Deviation 41.5, RDW Coeff of Kirsten 13.5, Plt Count 127 L, MPV 11.1, Immature Gran % (Auto) 0.300, Neut % (Auto) 48.6, Lymph % (Auto) 40.0, [place] % (Auto) 8.1, Eos % (Auto) 2.7, Baso % (Auto) 0.3, Absolute Neuts (auto) 1.6 L, Absolute Lymphs (auto) 1.34, Nucleated RBC % 0, Sodium 139, Potassium 4.1, Chloride 108, Carbon Dioxide 24.7, Anion Gap 7, BUN 8, Creatinine 0.68 L, Estim Creat Clear Calc 113.96, Est GFR (MDRD) Non-Af 128, BUN/Creatinine Ratio 11.1, Glucose 94, Calcium 8.7, Vancomycin Trough 11.7 Radiography Diagnostic Testing: Radiology Impression Hand X-Ray 12/08/24 13:05 IMPRESSION: NEGATIVE HAND SERIES Reading Location: [facility] Physical Exam Narrative General: Alert, Oriented x3, Cooperative, No apparent distress HEENT: Atraumatic, PERRLA, EOMI, Normocephalic Oral: Moist Mucosa Neck: Supple, No JVD Lungs: Clear to auscultation, Normal air movement, No rhonchi, No wheeze, No rales Cardiovascular: Regular rate, Regular Rhythm, Normal S1, Normal S2, No murmurs Abdomen: Soft, Non Tender, Non-Distended, No Hepato-splenomegaly Extremities: No edema, Capillary Refill Less than 3 Seconds Skin: Multiple areas of cat scratches and a bite on her right second finger distally with some surrounding redness and then some streaking up her right forearm and upper arm Musculoskeletal: No Tenderness to Palpation of Joints or Extremities Neurological: No focal neurological deficits, Motor Exam 5/5 strength throughout, Sensory exam intact to light touch and pain Psych/Mental Status: Normal Affect, Appropriate Assessment & Plan Assessment/Plan (1) Cat bite: PLAN: Plan 1. Cat bite with localized infection and streaking up her arm ? Continue with IV antibiotics ? Appreciate plastics assistance ? She will keep arm elevated ? Pain management ? Much improved 2. Anxiety ? Stable ? Continue with Zoloft 3. GERD ? Stable ? Continue with as needed PPI DVT: Ambulation Charges/Coding Visit Charges Inpatient E&M: 52812 Subs Hosp L2
[2024-12-09] MEDS: Prenatal Vits Tablet 1 TABLET PO (09:56)
[2024-12-09] MEDS: Vancomycin HCl 1,000 MG in 0.9% Normal Saline (250mL Bag) 250 ML 250 MG IV ×2 (09:56→18:36)
[2024-12-09 14:22] VITALS: BP 116/78; PULSE 83; RESP 16; TEMP 36.1; O2SAT 100
[2024-12-09 21:02] VITALS: BP 116/81; PULSE 58; RESP 16; TEMP 36.8; O2SAT 100
[2024-12-10] MEDS: Vancomycin HCl 1,000 MG in 0.9% Normal Saline (250mL Bag) 250 ML 250 MG IV (01:47)
[2024-12-10 06:00] VITALS: BP 119/83; PULSE 70; RESP 14; TEMP 36.6; O2SAT 100
[2024-12-10] MEDS: Piperacil/Tazobactam 3.375 GM in 0.9% Normal Saline (50mL MB+) 50 ML IV (06:08)
--- NOTE | 2024-12-10 06:28 | PN.SURG_ITS ---
Subjective Subjective Pain well controlled. No fevers or chills. Objective Data Objective Data Vital Signs: Vital Signs Temp Pulse Resp BP Pulse Ox O2 Del Method 98.2 F 58 L 16 116/81 H 100 Room Air 12/09/24 21:02 12/09/24 21:02 12/09/24 21:02 12/09/24 21:02 12/09/24 21:02 12/09/24 21:02 Oxygen Delivery Method Room Air Weight: 132 lb 11.492 oz Body Mass Index (BMI) 22.8 Intake & Output: Intake and Output for Last 24 Hours 12/08/24 12/09/24 12/10/24 23:59 23:59 23:59 Intake Total 685 / 685 905.00 / 905.00 320 / 320 Balance 685 / 685 905.00 / 905.00 320 / 320 Lab / Micro Data 12/09/24 07:32 12/09/24 07:32 Labs: Laboratory Results - last 24 hr 12/09/24 07:32: WBC 3.4 L, RBC 3.92 L, Hgb 11.5 L, Hct 33.0 L, MCV 84.2, MCH 29.3, MCHC 34.8, RDW Std Deviation 41.5, RDW Coeff of Kirsten 13.5, Plt Count 127 L, MPV 11.1, Immature Gran % (Auto) 0.300, Neut % (Auto) 48.6, Lymph % (Auto) 40.0, [place] % (Auto) 8.1, Eos % (Auto) 2.7, Baso % (Auto) 0.3, Absolute Neuts (auto) 1.6 L, Absolute Lymphs (auto) 1.34, Nucleated RBC % 0, Sodium 139, Potassium 4.1, Chloride 108, Carbon Dioxide 24.7, Anion Gap 7, BUN 8, Creatinine 0.68 L, Estim Creat Clear Calc 113.96, Est GFR (MDRD) Non-Af 128, BUN/Creatinine Ratio 11.1, Glucose 94, Calcium 8.7, Vancomycin Trough 11.7 Micro: Microbiology 12/08/24 12:35 Wound Drainage - Aerobic & Anaerobic Swabs Gram Stain - Final Physical Exam Narrative Right upper Extremity Inspection: Area of induration on the right index fingertip but no fluid collections. No longer any streaking erythema. Palpation: Improved pain overall to palpation No tenderness over the A1 ella No pain with excursion of the index finger flexor tendon or with passive extension No pain along the flexor sheath Motor: Able to bend and extend all MP, PIP, and DIP joints. Sensory: Intact to light touch on the radial and ulnar borders. Vascular: Finger tips are warm and well perfused with <2 second capillary refill. Left upper Extremity Inspection: Bite wound over the left dorsal thumb without any fluid collections Palpation: Improved pain overall to palpation Motor: Able to bend and extend all MP, PIP, and DIP joints. Sensory: Intact to light touch on the radial and ulnar borders. Vascular: Finger tips are warm and well perfused with <2 second capillary refill. Assessment & Plan Assessment/Plan (1) Cellulitis: (2) Cat bite: PLAN: Plan F/u with me in clinic on Friday for wound check Continue soaks TID Dial soap soaks over the weekend and band aid at home I spoke with hospitalist about potential rabies immunoglobulin (patient has not had) and potential indications. Cat is being quarantined. He is reaching out to infectious disease today about it to discuss before discharge. Charges/Coding Visit Charges Inpatient E&M: 21409 Subs Hosp L1
[2024-12-10] MEDS: 0.9% Saline Lock 10 ML Syringe IV (06:53)
--- NOTE | 2024-12-10 08:25 | DCINST_ITS ---
Discharge Instructions DC O2, CPAP, BIPAP needs Home O2 Discharge instructions: No Dressing / Incision Call your doctor if you observe: Fever of 101 or Higher, Shortness of breath, Dizziness, Fainting spells, Swelling in the ankles, Chest pain and Increased palpitations (irregular heartbeat) Additional Dressing/Incision Instructions:: Continue soaks TID Dial soap soaks over the weekend and band aid at home Follow Up Care Test Results: Test results from this visit will be discussed in further detail at your follow- up appointment, if applicable. Discharge Plan Admission Admit Date/Time: 12/08/24 07:23 Attending Provider: Gilbert Whittington Primary Care Provider: Care Physician,No Primary Consulting Providers: Basilio Min Discharge Orders/Prescriptions Prescriptions: Continued PNV cmb#95-ferrous fumarate-FA [] 28 mg iron- 800 mcg tablet 1 tab PO DAILY pantoprazole [Protonix] [address] for susp in packet 40 mg PO PRN sennosides-docusate sodium [Stimulant Laxative Plus] 8.6-50 mg Tablet 1 - 2 tab PO DAILY PRN PRN (Reason: Constipation) Qty: 30 0RF hydrocodone-acetaminophen 5-325 mg tablet 1 tab PO Q4H PRN (Reason: pain) 2 Days Qty: 8 0RF amoxicillin-pot clavulanate 875-125 mg tablet 1 tab PO BID 10 Days Qty: 20 0RF oxycodone-acetaminophen [Percocet] 5-325 mg tablet 1 tab PO Q6H PRN (Reason: pain) 3 Days Qty: 12 0RF sertraline [Zoloft] 25 mg tablet 50 mg PO DAILY lactase [Dairy Relief] 3,000 unit tablet 3,000 unit PO .WITH LACTOSE PRODUCT PRN (Reason: lactose intolerant) Rx Instructions: 3,000 units orally WITH LACTOSE PRODUCTS PRN; Referrals / Follow Up: Basilio Min MD [Med Staff - Active Staff] - 12/13/24 Care Physician,No Primary [Primary Care Provider] - Disposition Disposition (needs filled in before D/C Order can be placed): Home, Self Care
[2024-12-10 08:41] LABS: Vancomycin, Trough Level 21.2 ug/mL (5.0-15.0)
[2024-12-10 08:55] VITALS: BP 122/79; PULSE 58; RESP 18; TEMP 36.8; O2SAT 100
[2024-12-10] MEDS: Prenatal Vits Tablet 1 TABLET PO (09:22)
--- NOTE | 2024-12-10 09:32 | PCM.RX.CS ---
Consult Antibiotic Management Pharmacy has been consulted to manage selected antibiotic: Vancomycin Type of Intervention Type of Consult: Follow-up Suspected Infection Suspected Infection: Skin/Soft tissue Labs Labs: Sodium 139 mmol/L (133-145) 12/09/24 07:32 Potassium 4.1 mmol/L (3.3-5.1) 12/09/24 07:32 Chloride 108 mmol/L (98-108) 12/09/24 07:32 Carbon Dioxide 24.7 mmol/L (21.0-32.0) 12/09/24 07:32 Anion Gap 7 (5-15) 12/09/24 07:32 BUN 8 mg/dL (4-19) 12/09/24 07:32 Creatinine 0.68 mg/dL (0.70-1.20) L 12/09/24 07:32 Est GFR (MDRD) Non-Af 128 (>60) 12/09/24 07:32 BUN/Creatinine Ratio 11.1 RATIO (10-20) 12/09/24 07:32 Glucose 94 mg/dL (70-99) 12/09/24 07:32 Vancomycin Trough 21.2 ug/mL (5.0-15.0) H 12/10/24 07:31 Microbiology Microbiology: Microbiology 12/08/24 06:40 Blood Culture (Wb) - Left Hand Blood Culture - Preliminary No growth in 48 hours. 12/08/24 06:27 Blood Culture (Wb) - Anticubital Left Blood Culture - Preliminary No growth in 48 hours. 12/08/24 12:35 Wound Drainage - Aerobic & Anaerobic Swabs Gram Stain - Final Goal Trough Goal Trough: 15-20 mcg/mL Pharmacy Plan for Drug Dosing Pharmacy Plan for Drug Dosing: VANCOMYCIN LEVEL RECEIVED Current Vancomycin Dose: 1000mg Q8H Number of Doses Received: 1000mg x3 Vancomycin Level: 21.2 Hours Since Last Dose: 5.75 Renal Function: sCr 0.68 Renal Function Trend: stable Vancomycin Plan/Comments: Continue 1000mg Q8H - level drawn early and likely therapeutic Pending Level: 12/11/24 @ 09:30 Pharmacy Service will continue to monitor and adjust dosing as required. Follow-Up Labs Follow-Up Labs: Trough: Vancomycin (12/11/24 @ 09:30)
--- NOTE | 2024-12-10 09:33 | CASEMGMT ---
RN CM into pt room, pt states she feels comfortable with her soaks for her cat bite. Pt denies any further homegoing needs at this time.
--- NOTE | 2024-12-10 10:17 | PCM.DC.SUM ---
Providers Date of Admission: 12/08/24 Primary Care Physician: No Primary Care Phys Consultations 12/08/24 08:32 Consult: Onc/Wound/internet sales consultant Routine Comment: Consult: Plastic Surgery Routine Consulting Provider: Basilio Min Reason for Consult: Cat bite EMERGENT Consult: No MD Notified: Yes Date Notified: 12/08/24 Time Notified: 07:25 Method of Notification: ED Physician Initiated Reason For Visit: CAT BITE CELLULITIS Diagnosis Discharge Diagnosis (1) Cellulitis: Status: Acute Code(s): L03.90 - Cellulitis, unspecified (2) Cat bite: Status: Acute Code(s): W55.01XA - Bitten by cat, initial encounter Medications at Discharge Home Medications vit no.95-ferrous fumarate 28 mg-folic acid 800 mcg tablet () 1 tab PO DAILY SUPPLEMENT 03/21/24 pantoprazole 40 mg granules delayed-release for susp in packet (Protonix) 40 mg PO PRN INDIGESTION 05/25/24 sennosides 8.6 mg-docusate sodium 50 mg tablet (Stimulant Laxative Plus) 1 - 2 tab PO DAILY PRN PRN Constipation #30 tabs 05/27/24 hydrocodone-acetaminophen 5-325mg 5mg-325mg 1 tab PO Q4H PRN pain 2 days #8 tabs 08/17/24 amoxicillin 875 mg-potassium clavulanate 125 mg tablet 1 tab PO BID 10 days #20 tabs 12/07/24 oxycodone-acetaminophen 5 mg-325 mg tablet (Percocet) 1 tab PO Q6H PRN pain 3 days #12 tabs 12/07/24 lactase 3,000 unit tablet (Dairy Relief) 3,000 unit PO .WITH LACTOSE PRODUCT PRN lactose intolerant 12/08/24 sertraline 25 mg tablet (Zoloft) 50 mg PO DAILY ANXIETY 12/08/24 Hospital Course Operations None Procedures None Summary of Care Provided Minutes Spent on Discharge: 34 Hospital Course: Per HPI: ORAL ANDRE, is a 19 F who presents to the hospital after a cat bite to her distal second finger on her right hand. She has some redness and swelling around that and had presented to the ER yesterday and was started on antibiotics and discharged home however she represented this morning with streaking up her right arm. She has some minimal tenderness but nothing major and distal joints and more proximal joints. Plastics was consulted recommended IV antibiotics as well as hand elevation and will do a wash on the inpatient side. She did receive Zosyn and vancomycin in the ER. She is afebrile without a leukocytosis Hospital Course: 1. Cat bite to her right second finger?19-year-old female works at the [employer] and had her finger bitten by a feral cat. Cat is currently under quarantine so she does not require any treatment for rabies at this time and that they will be monitoring the cat for a total of 14 days. Plastic surgery was consulted and recommended Dial soap soaks after he opened the area a little bit. She had rapid improvement in her the streaking up her forearm as well as the redness around her Bite. I discussed with her the possibility for discharge today and she expressed understanding of the risks and benefits of going home and would like to go home today. She does have a little bit of a rash that is fairly fainting could be due to vancomycin or the Zosyn, I discussed with her that she is to continue her Augmentin on discharge and if her rash gets worse to notify her primary care doctor to adjust antibiotics. I discussed with her the plan for discharge that she expressed understanding of the risks and benefits of going home and would like to go home today. 2. Anxiety, depression, GERD are all chronic medical conditions which complicate her care. Her home medications were continued where appropriate Physical Exam Narrative General: Alert, Oriented x3, Cooperative, No apparent distress HEENT: Atraumatic, PERRLA, EOMI, Normocephalic Oral: Moist Mucosa Neck: Supple, No JVD Lungs: Clear to auscultation, Normal air movement, No rhonchi, No wheeze, No rales Cardiovascular: Regular rate, Regular Rhythm, Normal S1, Normal S2, No murmurs Abdomen: Soft, Non Tender, Non-Distended, No Hepato-splenomegaly Extremities: No edema, Capillary Refill Less than 3 Seconds Skin: Multiple areas of cat scratches and a bite on her right second finger distally with some surrounding redness and then some streaking up her right forearm and upper arm, much improved. Areas of rash on her knees and on her lower abdomen. Musculoskeletal: No Tenderness to Palpation of Joints or Extremities Neurological: No focal neurological deficits, Motor Exam 5/5 strength throughout, Sensory exam intact to light touch and pain Psych/Mental Status: Normal Affect, Appropriate Weight / BMI Weight Weight: 132 lb 11.492 oz Body Mass Index (BMI) 22.8 ABG / Lab / Microbiology Data 12/09/24 07:32 12/09/24 07:32 Laboratory: Laboratory Results - last 24 hr 12/10/24 07:31: Vancomycin Trough 21.2 H Microbiology: Microbiology 12/08/24 06:40 Blood Culture (Wb) - Left Hand Blood Culture - Preliminary No growth in 48 hours. 12/08/24 06:27 Blood Culture (Wb) - Anticubital Left Blood Culture - Preliminary No growth in 48 hours. 12/08/24 12:35 Wound Drainage - Aerobic & Anaerobic Swabs Gram Stain - Final D/C Instructions Call your doctor if you observe: Fever of 101 or Higher, Shortness of breath, Dizziness, Fainting spells, Swelling in the ankles, Chest pain and Increased palpitations (irregular heartbeat) Additional Dressing/Incision Instructions: Continue soaks TID Dial soap soaks over the weekend and band aid at home DC O2, CPAP, BIPAP Needs Home O2 Discharge instructions: No Meaningful Use Info Meaningful Use Meaningful Use Diagnoses (Choose all that apply): None applicable Discharge Plan Admission Admit Date/Time: 12/08/24 07:23 Attending Provider: Gilbert Whittington Primary Care Provider: Care Physician,No Primary Consulting Providers: Basilio Min Discharge Orders/Prescriptions Prescriptions: Continued PNV cmb#95-ferrous fumarate-FA [] 28 mg iron- 800 mcg tablet 1 tab PO DAILY pantoprazole [Protonix] [address] for susp in packet 40 mg PO PRN sennosides-docusate sodium [Stimulant Laxative Plus] 8.6-50 mg Tablet 1 - 2 tab PO DAILY PRN PRN (Reason: Constipation) Qty: 30 0RF hydrocodone-acetaminophen 5-325 mg tablet 1 tab PO Q4H PRN (Reason: pain) 2 Days Qty: 8 0RF amoxicillin-pot clavulanate 875-125 mg tablet 1 tab PO BID 10 Days Qty: 20 0RF oxycodone-acetaminophen [Percocet] 5-325 mg tablet 1 tab PO Q6H PRN (Reason: pain) 3 Days Qty: 12 0RF sertraline [Zoloft] 25 mg tablet 50 mg PO DAILY lactase [Dairy Relief] 3,000 unit tablet 3,000 unit PO .WITH LACTOSE PRODUCT PRN (Reason: lactose intolerant) Rx Instructions: 3,000 units orally WITH LACTOSE PRODUCTS PRN; Referrals / Follow Up: Basilio Min MD [Med Staff - Active Staff] - 12/13/24 Care Physician,No Primary [Primary Care Provider] - Disposition Disposition (needs filled in before D/C Order can be placed): Home, Self Care Charges/Coding Visit Charges Inpatient E&M: 89345 Disch Hosp >30min
--- NOTE | 2024-12-10 11:00 | PHA.DC.MR.R ---
Pharmacy ID Med Reconciliation Pharmacy Service has performed discharge medication reconciliation for this patient. The patient's discharge medication list was reviewed for discrepancies and discrepancies were resolved. Medications at Discharge Home Medications vit no.95-ferrous fumarate 28 mg-folic acid 800 mcg tablet () 1 tab PO DAILY SUPPLEMENT 03/21/24 pantoprazole 40 mg granules delayed-release for susp in packet (Protonix) 40 mg PO PRN INDIGESTION 05/25/24 sennosides 8.6 mg-docusate sodium 50 mg tablet (Stimulant Laxative Plus) 1 - 2 tab PO DAILY PRN PRN Constipation #30 tabs 05/27/24 hydrocodone-acetaminophen 5-325mg 5mg-325mg 1 tab PO Q4H PRN pain 2 days #8 tabs 08/17/24 amoxicillin 875 mg-potassium clavulanate 125 mg tablet 1 tab PO BID 10 days #20 tabs 12/07/24 oxycodone-acetaminophen 5 mg-325 mg tablet (Percocet) 1 tab PO Q6H PRN pain 3 days #12 tabs 12/07/24 lactase 3,000 unit tablet (Dairy Relief) 3,000 unit PO .WITH LACTOSE PRODUCT PRN lactose intolerant 12/08/24 sertraline 25 mg tablet (Zoloft) 50 mg PO DAILY ANXIETY 12/08/24
== END 2024-12-10 10:30 | disposition home or self-care (01) | DRG 603 ==
LOC: ED 07:29 → MS3 07:36
PROVIDERS: Admitting Provider Family Medicine; Emergency Provider Emergency Medicine; Visit Provider Family Medicine
DX: L03.011 Cellulitis of right finger (principal); F32.A Depression, unspecified; F41.9 Anxiety disorder, unspecified; K21.9 Gastro-esophageal reflux disease without esophagitis; Z23 Encounter for immunization; W55.01XA Bitten by cat, initial encounter; L03.012 Cellulitis of left finger
CPT/HCPCS: 36415; 73130; 80048; 80202; 83605; 85025; 85652; 86140; 87040; 87070; 87075; 87077; 87186; 87205; 90715; 97802; 99282; 99284; A4216; J2405

== ENCOUNTER 2025-01-10 11:56 | Emergency (ER) | payer MEDICAID, SELFPAY ==
[2025-01-10 11:56] VITALS: BP 146/89; PULSE 79; RESP 18; TEMP 36.6; O2SAT 100; BMI 21.3
--- NOTE | 2025-01-10 12:03 | EDS_ITS ---
HPI History of Present Illness Chief Complaint: Med Refill Detail of Chief Complaint: Refill Zoloft prescription Onset/Context/Timing Onset: Yesterday Context: Sudden Onset Quality: Patient was instructed to increase her Zoloft from 25 mg a day to 50 mg a d Location: Not applicable Current Severity: Patient's prescription has no refills Maximum Severity: Told to increase Zoloft with no refills Worsened by: Not applicable Relieved by: Not applicable Associated Symptoms Associated Symptoms: History of depression better on Zoloft Narrative Narrative: Patient is a 19-year-old female. She is seeing a therapist psychiatrist for depression. She was on Zoloft 25 mg. She states it helped. She was recently told to increase to 50 mg. She states her prescription has no refills and because she was told to increase her Zoloft she has no remaining tablets. Patient denies suicidal ideation or homicidal ideation. Patient states that Zoloft has helped. Has no other complaints. Prior similar symptoms: No Recent Illness/Hospitalization: No PFSH PFS Medical History Anxiety Encounter for screening for COVID-19 Home Medications ?Medication ?Instructions ?Recorded ?Last Taken ?Type vit no.95-ferrous 1 tab PO DAILY SUPPLEMENT 1 05/21/23 05/24/24 21:00 History fumarate 28 mg-folic acid 800 mcg 1 TA B tablet () pantoprazole 40 mg granules 40 mg PO PRN INDIGESTION 0 05/25/24 05/24/24 09:00 History delayed-release for susp in packet 40 mg (Protonix) sennosides 8.6 mg-docusate sodium 1 - 2 tab PO DAILY P RN PRN 05/27/24 Unknown Rx 50 mg tablet (Stimulant Laxative Constipation #30 tabs Plus) hydrocodone-acetaminophen 5-325mg 1 tab PO Q4H PRN pako n 2 days #8 08/17/24 Unknown Rx 5mg-325mg tabs amoxicillin 875 mg-potassium 1 tab PO BID 10 days #20 tabs 12/07/24 Unknown Rx clavulanate 125 mg tablet oxycodone-acetaminophen 5 mg-325 1 tab PO Q6H PRN pain 3 days #12 12/07/24 Unknown Rx mg tablet (Percocet) tabs lactase 3,000 unit tablet (Dairy 3,000 unit PO .WITH L ACTOSE 12/08/24 Unknown History Relief) PRODUCT PRN lactose intolera nt sertraline 25 mg tablet (Zoloft) 50 mg PO DAILY ANXIET Y 12/08/24 Unknown History sertraline 50 mg tablet (Zoloft) 50 mg PO DAILY #30 ta bs 01/10/25 Unknown Rx Allergy/AdvReac Type Severity Reaction Status Date / Time lactase (From Dairy Aid) Allergy Mild Abdominal Verified 01/10/25 11:57 cramping Family History Grandfather Leukemia DVT (deep venous thrombosis) Grandmother Breast cancer Grandmother Diabetes Heart disease Lung cancer Surgical History History of surgery History of removal of cyst H/O tooth extraction Social History Smoking Status: Never smoker alcohol intake: never what type of physical activity do you participate in: additional details: gym, sports seatbelt use: always ROS ROS ED Neurologic Neurologic: Denies paresthesias or weakness Psychiatric Psychiatric: Reports depression; Denies suicidal ideation or suicidal thoughts EXAM Physical Exam Const Vital Signs: 01/10/25 11:56 Temperature 98 F Temperature Source Temporal Pulse Rate 79 Respiratory Rate 18 Blood Pressure 146/89 H Blood Pressure Mean 108 Pulse Ox 100 Oxygen Delivery Method Room Air Positive well nourished and well developed General Appearance ED: well developed, NAD and pallor HEENT Reports moist mucous membranes HEENT Narrative: Head is atraumatic and normocephalic. Eyes PERRL and EOMs intact bilaterally General Eye ED: Negative for pale conjunctiva Resp normal respiratory effort and clear to auscultation bilaterally Cardio regular rate, regular rhythm, S1 normal heart sound, S2 normal heart sound and no murmurs Extremity normal to inspection Extremity Narrative: Prior self-inflicted wounds that are well-healed Neuro oriented x3 and CN's II-XII intact bilaterally Sensorium / Orientation: alert Psych Psych Narrative: Affect is flat. Attitude: No agitated Mood & Affect: Negative for anxious or tearful Skin no rashes or lesions noted, no wounds and skin turgor normal General Skin Exam: pallor; Negative for jaundice MDM MDM MDM Narrative Medical decision making narrative: Patient presents for prescription refill because her therapist instructed her to increase her Zoloft from 25 mg to 50 mg. Discharge Plan Triage Chief Complaint: Med Refill ED Provider: Donnie Manrique Dx/Rx/DC Orders Clinical Impression: Prescription refill, Difficulty refilling prescriptions, History of depression, Encounter for medical screening examination Instructions: Medication Refill Prescriptions: New sertraline [Zoloft] 50 mg tablet 50 mg PO DAILY Qty: 30 2RF No Action PNV cmb#95-ferrous fumarate-FA [] 28 mg iron- 800 mcg tablet 1 tab PO DAILY pantoprazole [Protonix] [address] for susp in packet 40 mg PO PRN sennosides-docusate sodium [Stimulant Laxative Plus] 8.6-50 mg Tablet 1 - 2 tab PO DAILY PRN PRN (Reason: Constipation) Qty: 30 0RF hydrocodone-acetaminophen 5-325 mg tablet 1 tab PO Q4H PRN (Reason: pain) 2 Days Qty: 8 0RF amoxicillin-pot clavulanate 875-125 mg tablet 1 tab PO BID 10 Days Qty: 20 0RF oxycodone-acetaminophen [Percocet] 5-325 mg tablet 1 tab PO Q6H PRN (Reason: pain) 3 Days Qty: 12 0RF sertraline [Zoloft] 25 mg tablet 50 mg PO DAILY lactase [Dairy Relief] 3,000 unit tablet 3,000 unit PO .WITH LACTOSE PRODUCT PRN (Reason: lactose intolerant) Rx Instructions: 3,000 units orally WITH LACTOSE PRODUCTS PRN; Primary Care Provider: Care Physician,No Primary Referrals: Care Physician,No Primary [Primary Care Provider] - Activity Restrictions/Additional Instructions: Follow-up with your psychiatrist in the future to have your prescriptions refilled. You were given 2 refills Print Language: Kinyarwanda Disposition Disposition: Home, Self Care
[2025-01-10 12:15] VITALS: BP 117/67; PULSE 87; RESP 16; TEMP 36.6; O2SAT 100
== END 2025-01-10 12:19 | disposition home or self-care (01) ==
LOC: ED 12:18
PROVIDERS: Emergency Provider Emergency Medicine; Visit Provider Emergency Medicine
DX: Z76.0 Encounter for issue of repeat prescription (principal); O99.345 Other mental disorders complicating the puerperium; F53.0 Postpartum depression; F41.9 Anxiety disorder, unspecified; Z79.899 Other long term (current) drug therapy; F32.A Depression, unspecified
CPT/HCPCS: 99282

== ENCOUNTER 2025-05-08 10:37 | Emergency (ER) | payer MEDICAID, SELFPAY ==
[2025-05-08 10:38] VITALS: BP 147/100; PULSE 86; RESP 15; TEMP 36.1; O2SAT 100; BMI 21.9
--- OUTSIDE RECORDS SUMMARY | 2025-05-08 11:05 | XMS RPT_ITS | CCD ---
Author Organization [facility] ion [facility] Care Team Providers Care Motor Equipment Captain Name Role Phone Javi Thapa Unavailable Ren Carlson MD Primary Care Provider Ren Carlson MD Primary Care Provider Unavailable Primary Care Provider Unavailabl e Unavailable Primary Care Provider Unavailabl e Care Physician, No Primary Primary Care Provider Unavailable Dr. Cherry Simons MD Admit Provider Dr. Cherry Simons MD Attending Provid er Dr. Cherry Simons MD Referring Provid er Dr. Blane Alfred MD Emergency Provider Care Physician, No Primary Primary Care Provider Unavailable Dr. Blane Alfred MD Attending Provider Dr. Vlad Jay DO Emergency Provider Dr. Gilbert Whittington MD Admit Provider Dr. Gilbert Whittington MD Attending Provider Care Physician, No Primary Primary Care Provider Unavailable Dr. Blane Alfred MD Attending Provider Dr. Blane Alfred MD Emergency Provider Dr. Vlad Jay DO Attending Provider Dr. Basilio Min MD Other Provider Dr. Gilbert Whittington MD Other Provider Dr. Basilio Min MD Attending Provider Care Physician, No Primary Referring Provider Un available Dr. Basilio Min MD Referring Provider Dr. Donnie Manrique MD Emergency Provider [phone] Care Physician, No Primary Primary Care Unava ilable Donnie Manrique Attending Unavailable Basilio Min Attending Unavailable Gilbert Whittington Admitting Unavailable Care Physician, No Primary Primary Care Unava ilable Basilio Min Consulting Unavailable Gilbert Whittington Consulting Unavailable Gilbert Whittington Attending Unavailable Basilio Min Attending Unavailable Care Physician, No Primary Primary Care Unava ilable Care Physician, No Primary Referring Unava ilable Basilio Min Attending Unavailable Care Physician, No Primary Primary Care Unava ilable Care Physician, No Primary Referring Unava ilable Vlad Jay Referring Unavailable Care Physician, No Primary Primary Care Unava ilable Blane Alfred Attending Unavailable Care Physician, No Primary Primary Care Unava ilable Blane Alfred Attending Unavailable Care Physician, No Primary Primary Care Unava ilable Vlad Jay Attending Unavailable Basilio Min Referring Unavailable Basilio Min Attending Unavailable Care Physician, No Primary Primary Care Unava ilable Gilbert Whittington Attending Unavailable Care Physician, No Primary Primary Care Unava ilable Basilio Min Consulting Unavailable Lolita Whittingtons F Admitting Unavailable Care Physician, No Primary Primary Care Unava ilable Neyhart-Schuler, Cherry Admitting Unavail able Neyhart-Schuler, Cherry Referring Unavail able Neyhart-Schuler Cherry Attending Unavail able Ren Carlson Primary Care Unavailable Tran Gaytan Referring Unavailable Tran Gaytan Attending Unavailable Care Physician, No Primary Primary Care Unava ilable Vlad Jay Attending Unavailable ANITRA CALDWELL Attending Unavailable TRAN GAYTAN Attending Unavailable ANITRA CALDWELL Referring Unavailable NICOLE LU Attending Unavailable MARK MARTINEZ Attending Unavailable TRAN GAYTAN Referring Unavailable TRAN GAYTAN Attending Unavailable ZHANNA HAZEL Referring Unavailable ZHANNA HAZEL Attending Unavailable TRAN GAYTAN Attending Unavailable TRAN GAYTAN Attending Unavailable NATALIIA VAIL Attending Unavailable TRAN GAYTAN Referring Unavailable TRAN GAYTAN Attending Unavailable TRAN GAYTAN Attending Unavailable ROBSON ROMERO Referring Unavailable ROBSON ROMERO Referring Unavailable TRAN GAYTAN Attending Unavailable NATALIIA VAIL Attending Unavailable NATALIIA VAIL Referring Unavailable CHERRY COLEMAN Attending Unavail able Allergies Allergy Classification Reported Allergen(s) Allergy Type Date of Onset Reaction(s) Facility Lactase (3 sources) Lactase Drug Allergy 1 Other: See Comments [facility] (20 sources) Lactase; Translations: [LACTASE] Drug Allergy 1 Other: See Comments [facility] (20 sources) Eucalyptus extract; Translations: [EUCALYPTUS] Drug Allergy 4 Rash [facility] (1 source) Lactase Drug Allergy 5 [facility] Repository Medications Current Medications Medication Drug Class(es) Dates Sig (Normalized) Sig (Original) acetaminophen 325 mg / HYDROcodone bitartrate 5 mg oral tablet (13 sources) Opioid Agonist Start: 08-17-2024 take 1 [...] / oxyCODONE hydrochloride 5 mg oral tablet (4 sources) Opioid Agonist Start: 12-07-2024 take 1 tablet by mouth every six hours as needed for pain Oxycodone-Acetaminophen (Percocet) 5-325 mg tablet Active 1 {tbl} PO EVERY 6 HOURS as needed for pain 12 3 0 December 07, 2024 Cat bite Bitten by cat, initial encounter amoxicillin 875 mg / clavulanate 125 mg oral tablet (5 sources) Penicillin-class Antibacterial Start: 12-08-2024 take 1 tablet by mouth every twelve hours amoxicillin-clavulanate potassium (AUGMENTIN) 875-125 mg per tablet Take 1 tablet by mouth every 12 hours. 12/08/2024 Active Start: 12-07-2024 Amoxicillin-Po t Clavulanate 875-125 mg tablet Active 1 {tbl} PO TWICE A DAY 20 10 December 07, 2024 12:00am cetirizine hydrochloride 10 mg oral tablet (1 source) Histamine-1 Receptor Antagonist Start: 12-31-2024 End: 01-14-2025 take 1 tablet by mouth once daily cetirizine (ZYRTEC) 10 mg tablet Indications: Irritant contact dermatitis due to other agents Take 1 tablet by mouth once daily for 14 days. 14 tablet 12/31/2024 01/14/2025 Active copper 313 mg drug implant (5 sources) Copper-containing Intrauterine Device Start: 11-15-2024 End: 11-13-2034 copper (PARAGARD) 380 square mm intrauterine device Indications: Encounter for IUD insertion 1 Intra Uterine Device by INTRAUTERINE route as directed. 1 each 11/15/2024 11/13/2034 Active docusate sodium 50 mg / sennosides, [facility] 8.6 mg oral tablet (6 sources) Start: 05-27-2024 Sennosides-Docusate Sodium (Stimulant Laxative [...] day. 04/21/2024 Discontinued (Course of therapy completed) lactase 3000 unt chewable tablet (2 sources) Start: 12-08-2024 Lactase (Dairy Relief) 3,000 unit tablet Active 3000 U PO .WITH LACTOSE PRODUCT as needed for lactose intolerant December 08, 2024 12:00am 3,000 units orally WITH LACTOSE PRODUCTS PRN; moxifloxacin 5 mg/ml ophthalmic solution (1 source) Quinolone Antimicrobial Start: 12-31-2024 take 1 drop(s) into the eye(s) three times daily moxifloxacin (VIGAMOX) 0.5 % ophthalmic solution Indications: Acute bacterial conjunctivitis of left eye Use 1 drop in the right eye three times a day. 3 mL 12/31/2024 Active mupirocin 0.02 mg/mg topical ointment (1 source) RNA Synthetase Inhibitor Antibacterial Start: 01-22-2023 End: 01-27-2023 mupirocin (BACTROBAN) 2 % ointment Apply to affected area three times daily for 5 days. 30 g 0 01/22/2023 01/27/2023 Active Comment on above: Apply to affected ar ea three times daily for 5 days. Bryce (Nk) (1 source) Start: 06-03-2023 Bryce (Nk) Active June 03, 2023 12:00am pantoprazole 40 mg oral granules (16 sources) Proton Pump Inhibitor Start: 05-25-2024 Pantoprazole (Protonix) [address] for susp in packet Active 40 mg PO NEEDED May 25, 2024 1:00am INDIGESTION Start: 04-21-2024 End: 06-17-2024 take 1 tablet by mouth once daily pantoprazole DR (PROTONIX) 20 mg tablet Take 1 tablet by mouth once daily. 30 tablet 2 04/21/2024 06/17/2024 Discontinued (Discontinued by Patient) Pnv Cmb#95-Ferrous Fumarate- Fa () 28 mg iron- 800 mcg tablet (6 sources) Start: 03-21-2024 Pnv Cmb#95-Jamey maynor Fumarate-Fa () 28 mg iron- 800 mcg tablet Active 1 {tbl} PO DAILY March 21, 2024 12:00am SUPPLEMENT Start: 03-21-2024 Pnv Cmb#95-Jamey maynor Fumarate-Fa () 28 mg iron- 800 mcg tablet Active 1 {tbl} PO DAILY March 21, 2024 12:00am predniSONE 50 mg oral tablet (10 sources) Start: 12-31-2024 End: 01-05-2025 take 1 tablet by mouth once daily predniSONE (DELTASONE) 50 mg Indications: Irritant contact dermatitis due to other agents Take 1 tablet by mouth once daily for 5 days. 5 tablet 12/31/2024 01/05/2025 Active Start: 03-21-2024 End: 05-25-2024 take 1 tablet [...] tab daily for 3 days with food. proparacaine hydrochloride 5 mg/ml ophthalmic solution (1 source) Local Anesthetic Start: 3 End: 3 proparacaine 0.5 % 1 Drop (ALCAINE) sertraline 50 mg oral tablet (15 sources) Serotonin Reuptake Inhibitor Start: take 1 tablet by mouth once daily Sertraline (Zoloft) 50 mg tablet Active 50 mg PO DAILY 30 January 10, 2025 12:00am Start: 12-08-2024 take 2 tablets by mo ut once daily Sertraline (Zoloft) 25 mg tablet Active 50 mg PO DAILY December 08, 2024 12:00am ANXIETY Start: 06-25-2024 End: 12-27-2024 take 1 tablet by mouth once daily sertraline (ZOLOFT) 25 mg tablet Take 1 tablet by mouth once daily. 30 tablet 12/27/2024 Active tropicamide 10 mg/ml ophthalmic solution (1 source) Anticholinergic Start: 08-02-2022 End: 08-02-2022 tropicamide 1 % 1 Drop (MYDRIACYL) Completed/Discontinued Medications Medication Drug Class(es) Dates Sig (Normalized) Sig (Original) amoxicillin 500 mg oral capsule (18 sources) Penicillin-class Antibacterial Start: 02-02-2019 End: 02-13-2019 [...] 1 capsule 3 times a day AMOXICILLIN [id number] Javi WEAVER Start: 08-12-2016 End: 08-22-2016 AMOXICILLIN 500 MG TABS Take 1 tablet twice daily. AMOXICILLIN [id number] Luis WEAVER aspirin 81 mg oral tablet [...] hydrochloride 0.137 mg/actuat metered dose nasal spray (6 sources) Histamine-1 Receptor Antagonist Start: 03-21-2024 End: 05-25-2024 Azelastine 137 mcg (0.1 %) spray,non-aerosol Discontinued 2 NMA INTRANASAL TWICE A DAY 30 March 21, 2024 12:00am May 25, 2024 11:59am administer into each nostril azithromycin 250 mg oral tablet (6 sources) Macrolide Antimicrobial Start: 03-21-2024 End: 05-25-2024 Azithromycin (Zithromax Z-Xu) 250 mg tablet Discontinued 0 PO .COMPLEX 6 March 21, 2024 12:00am May 25, 2024 11:59am For 250 mg dose pack: take 500 mg today (day 1), then 250 mg for 4 days (days 2-5) benzonatate 200 mg oral capsule (13 sources) Non-narcotic Antitussive Start: 03-21-2024 End: 05-25-2024 take 1 capsule by mouth three times daily as needed for cough Benzonatate 200 mg capsule Discontinued 200 mg PO THREE TIMES A DAY as needed for cough 15 5 March 21, 2024 12:00am May 25, 2024 11:59am Start: 05-08-2017 End: 07-12-2019 take 1 capsule by mouth three times daily as needed for cough Benzonatate 100 mg capsule Discontinued 100 mg PO THREE TIMES A DAY as needed for cough 20 0 May 08, 2017 1:00am July 12, 2019 6:15pm ibuprofen 600 mg oral tablet (7 sources) Nonsteroidal Anti-inflammatory Drug Start: 06-01-2020 End: 06-26-2020 take 1 tablet by mouth four times daily Ibuprofen 600 MG tablet Discontinued 600 mg PO 4 TIMES DAILY 30 June 01, 2020 1:00am June 26, 2020 [...] PHENYLephrine 2.5 % 1 Drop (AK-DILATE, TYRELL-SYNEPHRINE) Mqxflzox-To-Vjf-Fe-F A tab (20 sources) Start: 11-14-2023 End: 11-15-2024 take 1 tablet by mouth once daily Eoiqrxte-Vz-Bgg-Fe-FA tab Take 1 tablet by mouth once daily. With folic acid and DHA as covered by insurance. 30 tablet 11 11/14/2023 11/15/2024 Discontinued (Discontinued by Patient) Start: 11-14-2023 take 1 tablet by james th once daily Vnxzzcuz-Es-Avi-Fe-FA tab Take 1 tablet by mouth once [...] Problem Classification Problem Date Documented Date Episodic/Chronic Administrative/social admission (2 sources) Repeated prescription; Translations: [Encounter for issue of repeat prescription] Onset: 01-14-2025 01-10-2025 Episodic Allergic reactions (2 sources) Irritant contact dermatitis; Translations: [Irritant contact dermatitis due to other agents] Onset: 12-31-2024 12-31-2024 Episodic Anxiety disorders (20 sources) Generalized anxiety disorder; Translations: [Generalized anxiety disorder] Onset: 11-14-2023 11-14-2023 Chronic Blindness and vision defects (2 sources) Bilateral myopia of eyes; Translations: [Myopia, bilateral] Episodic Calculus of urinary tract (6 sources) Kidney stone; Translations: [Calculus of kidney] 08-17-2024 Episodic Chronic obstructive pulmonary disease and bronchiectasis (9 sources) Bronchitis; Translations: [Bronchitis, not specified as acute or chronic] Onset: 03-20-2017 03-20-2017 Episodic Conditions associated with dizziness or vertigo (1 source) Dizziness; Translations: [Dizziness and giddiness] 11-05-2023 Episodic E Codes: Natural/environment (12 sources) Cat bite - wound; Translations: [Bitten by cat, initial encounter] Onset: 01-19-2025 Episodic Inflammation; infection of eye (except that caused by tuberculosis or sexually transmitteddisease) (2 sources) Acute infectious conjunctivitis; Translations: [Unspecified acute conjunctivitis, left eye] Onset: 12-31-2024 12-31-2024 Episodic Inflammatory diseases of female pelvic organs (1 source) Acute vaginitis; Translations: [Acute vaginitis] 11-14-2023 Episodic Joint disorders and dislocations; trauma-related (10 sources) 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; Translations: [Loose body in knee, left knee] Chronic Joint disorders and dislocations; trauma-related (20 sources) Dislocation of patellofemoral joint; Translations: [Unspecified dislocation of left patella, subsequent encounter] Onset: 02-04-2022 Resolved: 12-02-2023 Episodic Mood disorders (7 sources) Depressive disorder; Translations: [Depression] 06-03-2023 Chronic Nausea and vomiting (10 sources) Nausea; Translations: [Nausea] 08-27-2023 Episodic Noninfectious gastroenteritis (1 source) Noninfective gastroenteritis and colitis, unspecified; Translations: [Gastroenteritis] Onset: 03-17-2025 Episodic OB-related trauma to perineum and vulva [...] third trimester] 05-11-2024 Episodic Other complications of (6 sources) Reduced movement; Translations: [Decreased movements, unspecified trimester, not applicable or unspecified] 03-13-2024 Episodic Other connective tissue disease (1 source) Other specified soft tissue disorders; Translations: [Other specified soft tissue disorders] Onset: 12-13-2024 Episodic Other female genital disorders (5 sources) Abnormal vaginal bleeding; Translations: [Abnormal uterine and vaginal bleeding, unspecified] 12-05-2024 Chronic Other female genital disorders (1 source) Abnormal uterine and vaginal bleeding, unspecified; Translations: [Abnormal uterine and vaginal bleeding, unspecified] Onset: 12-09-2024 Chronic Other lower respiratory disease (7 sources) Cough; Translations: [Cough] 06-07-2021 Episodic Other [...] [Streptococcal sore throat] Onset: 08-12-2016 03-20-2017 Episodic Otitis media and related conditions (2 sources) Otitis media, unspecified, left ear; Translations: [Acute suppurative otitis media without spontaneous rupture of ear drum, left ear] Onset: 03-17-2025 Episodic Poisoning by other medications and drugs (7 sources) Accidental acetaminophen overdose; Translations: [Poisoning by [...] of ] 05-18-2024 Episodic Residual codes; unclassified (6 sources) Gestation period, 27 weeks; Translations: [27 weeks gestation of ] 03-13-2024 Episodic Residual codes; unclassified (7 sources) Gestation period, 37 weeks; Translations: [37 weeks gestation of ] 06-04-2024 Episodic Residual codes; unclassified (1 source) Difficulty managing medication; Translations: [Other specified health status] 01-10-2025 Episodic Skin and subcutaneous tissue infections (7 sources) Cellulitis; Translations: [Cellulitis, unspecified] Onset: 01-19-2025 12-08-2024 Episodic Sprains and strains (14 sources) Sprain of knee; Translations: [Sprain of [...] Classification Problem Date Documented Da te Episodic/Chronic Abdominal pain (7 sources) Abdominal pain; Translations: [Unspecified abdominal pain] Onset: 08-23-2024 08-17-2024 Episodic Acquired foot deformities (20 sources) Talipes planus; Translations: [Flat foot [pes planus] (acquired), unspecified foot] Onset: 01-14-2019 01-14-2019 Episodic Anxiety disorders (13 sources) Anxiety disorder due to a general medical condition; Translations: [Anxiety disorder due to known physiological condition] Onset: 06-24-2024 06-24-2024 Episodic Contraceptive and procreative management (1 source) Encounter for insertion of intrauterine contraceptive device; Translations: [Encounter for IUD insertion] Onset: 11-15-2024 Episodic Diabetes mellitus without complication (20 sources) [...] Episodic Immunizations and screening for infectious disease (16 sources) Patient encounter status; Translations: [Encounter for screening for COVID-19] Onset: 05-18-2024 06-07-2021 Episodic Miscellaneous mental health disorders (17 sources) depression; Translations: [ depression] Onset: 06-24-2024 [...] applicable or unspecified] Onset: 06-01-2024 Episodic Other complications of (1 source) Uterine size-date discrepancy, third trimester; Translations: [Uterine size-date discrepancy in third trimester] Onset: 05-18-2024 Episodic Other complications of (1 source) Other specified related conditions, third trimester; Translations: [Heartburn during in third trimester] Onset: 04-21-2024 Episodic Other complications of (1 source) Supervision of other high risk pregnancies, unspecified trimester; Translations: [Rubella non-immune status, antepartum] Onset: 12-12-2023 Episodic Other connective tissue disease (20 sources) Ganglion cyst of left wrist; Translations: [Ganglion, left wrist] Resolved: 02-22-2020 02-22-2020 Episodic Other gastrointestinal disorders (1 source) Heartburn; Translations: [Heartburn during in third trimester] Onset: 04-21-2024 Episodic Other inflammatory condition of skin (20 sources) Seborrheic dermatitis; Translations: [Seborrheic dermatitis, unspecified] Onset: 06-05-2016 06-05-2016 Episodic Other lower respiratory disease (20 sources) Chronic cough; Translations: [Chronic cough] Onset: 06-10-2017 Resolved: 11-25-2019 11-25-2019 Episodic Other and delivery including normal (20 [...] weeks gestation of ] Onset: 04-21-2024 Episodic Screening and history of mental health and substance abuse codes (20 sources) H/O: depression; Translations: [Personal history of other mental and behavioral disorders] Onset: 11-14-2023 11-14-2023 Episodic Results Test Name Value Interpretation Reference Range Facility [facility] 03-17-2025 CNOV Office Visit ([facility]) FLETCHERORAL Danielle ([id number]) 3 F Date Time Provider Department 03/17/25 12:45 PM NICOLE LU WOTITO During your visit today, we recorded the following information about you: Temperature Pulse Respiration Blood pressure 97 degrees 120/minute 20/minute 106/75 Weight Last Period 57 kg 03/09/25 Nicole Lu APRN.COMPUTER GRAPHICS ILLUSTRATOR 03/17/2025 1:02 PM Signed [facility] Subjective Oral Tavon Justine is a 19 year old female. Patient presents with: Nausea AND Vomiting: Diarrhea and headache x 2 days HPI The patient is a 19-year-old female presenting with vomiting, diarrhea, headache, and left ear pain. Over the past several days, the patient has experienced vomiting approximately once daily, with two episodes yesterday. She reports intermittent headaches and left ear pain that began today, which she describes as mild and similar to the onset of a prior ear infection. She also reports diarrhea with nearly every bowel movement, but denies hematochezia. She reports that she feels nauseated before her headaches begin, and after vomiting she experiences nausea, and throat pain, which resolve within about 30 minutes. She denies abdominal pain or cramping. She has missed work due to her symptoms, unable to attend yesterday and leaving early today after vomiting. She reports a prior adverse reaction to Zofran, which caused severe headaches during . She denies known antibiotic allergies. Review of Systems Head: (+) headache Ears/Nose/Mouth/Throat: (+) left ear pain, (+) throat pain Gastrointestinal: (+) vomiting, (+) nausea, (+) diarrhea, (+) hiccups, (-) abdominal pain, (-) abdominal cramping, (-) blood in stool PAST MEDICAL HISTORY Diagnosis Date Anemia Depression/anxiety Encounter for insertion of copper IUD Ganglion cyst of wrist, left Irregular menses Low-lying placenta (HCC) 01/26/2024 04/21/24- Resolved. Tran Gaytan APRN.CNM Repeat growth US at 32 weeks. Anitra Caldwell APRN.CNM Post depression 06/24/2024 PAST SURGICAL HISTORY Procedure Laterality Date DENTAL SURGERY HX 2015 IUD, PARAGARD 11/15/2024 Placed in office ORTHOPEDICS SURGERY HX knee torn meniscus WRIST Left cyst on left wrist ALLERGIES Eucalyptus and Lactase MEDICATIONS VRAYLAR 1.5 mg capsule Take 1 capsule by mouth once daily. copper (PARAGARD) 380 square mm intrauterine device 1 Intra Uterine Device by INTRAUTERINE route as directed. promethazine (PHENERGAN) 12.5 mg tablet Take 1 tablet by mouth every 6 hours as needed for up to 3 days. cefdinir (OMNICEF) 300 mg capsule Take 1 capsule by mouth two times a day for 5 days. amoxicillin-clavulanate potassium (AUGMENTIN) 875-125 mg per tablet Take 1 tablet by mouth every 12 hours. (Patient not taking: Reported on 12/31/2024) moxifloxacin (VIGAMOX) 0.5 % ophthalmic solution Use 1 drop in the right eye three times a day. sertraline (ZOLOFT) 25 mg tablet Take 1 tablet by mouth once daily. FAMILY HISTORY Problem Relation Age of Onset [...] Alcohol abuse Paternal Grandfather DVT Paternal Grandfather SOCIAL HISTORY[1] Objective BP 106/75 Pulse 120 Temp 36.1 ?C (97 ?F) Resp 20 Wt 57 kg (125 lb 10.6 oz) LMP 03/09/2025 (Approximate) SpO2 100% No BMI 21.24 kg/m? Physical Exam Constitutional: General: She is not in acute distress. Appearance: Normal appearance. She is normal weight. She is not ill-appearing or toxic-appearing. HENT: Head: Normocephalic and atraumatic. Jaw: No trismus or swelling. Right Ear: Ear canal and external ear normal. A middle ear effusion is present. Left Ear: Ear canal and external ear normal. A middle ear effusion is present. Tympanic membrane is erythematous and bulging. Tympanic membrane has decreased mobility. Nose: Mucosal edema, congestion and rhinorrhea present. Mouth/Throat: Pharynx: Uvula midline. Posterior oropharyngeal erythema and postnasal drip present. Cardiovascular: Rate and Rhythm: Normal rate and regular rhythm. Pulses: Normal pulses. Heart sounds: Normal heart sounds, S1 normal and S2 normal. Pulmonary: Effort: Pulmonary effort is normal. Breath sounds: Normal breath sounds. No decreased breath sounds, wheezing, rhonchi or rales. Lymphadenopathy: Cervical: Cervical adenopathy present. Neurological: Mental Status: She (more content not included)... Normal [facility] Emergency Department Summary on 01-10-2025 Emergency Department Summary [facility] Medical Records Department [address] [place] [address] Emergency Department Summary 01/10/25 MR#: [id number] Acct: [id number] Name: ORAL FLETCHER Rep #: [id number] : 2005 19 From: Donnie Manrique MD PCP: Care Physician,No Primary Status:PRE ER Location: ED HPI History of Present Illness Chief Complaint: Med Refill Detail of Chief Complaint: Refill Zoloft prescription Onset/Context/Timing Onset: Yesterday Context: Sudden Onset Quality: Patient was instructed to increase her Zoloft from 25 mg a day to 50 mg a d Location: Not applicable Current Severity: Patient's prescription has no refills Maximum Severity: Told to increase Zoloft with no refills Worsened by: Not applicable Relieved by: Not applicable Associated Symptoms Associated Symptoms: History of depression better on Zoloft Narrative Narrative: Patient is a 19-year-old female. She is seeing a therapist psychiatrist for depression. She was on Zoloft 25 mg. She states it helped. She was recently told to increase to 50 mg. She states her prescription has no refills and because she was told to increase her Zoloft she has no remaining tablets. Patient denies suicidal ideation or homicidal ideation. Patient states that Zoloft has helped. Has no other complaints. Prior similar symptoms: No Recent Illness/Hospitalization : No PFSH PFS Medical History Anxiety Encounter for screening for COVID-19 Home Medications ???Medication ???Instructions ???Recorded ???Last Taken ???Type vit no.95-ferrous 1 tab PO DAILY SUPPLEMENT 03/21/24 05/24/24 21:00 History fumarate 28 mg-folic acid 800 mcg 1 TAB tablet () pantoprazole 40 mg granules 40 mg PO PRN INDIGESTION 05/25/24 05/24/24 09:00 History delayed-release for susp in packet 40 mg (Protonix) sennosides 8.6 mg-docusate sodium 1 - 2 tab PO DAILY PRN PRN Unknown Rx 50 mg tablet (Stimulant Laxative Constipation #30 tabs Plus) hydrocodone-acetaminoph en 5-325mg 1 tab PO Q4H PRN pain 2 days #8 0 08/17/24 Unknown Rx 5mg-325mg tabs amoxicillin 875 mg-potassium 1 tab PO BID 10 days #20 tabs 11/17 07/13 Unknown Rx clavulanate 125 mg tablet oxycodone-acetaminophen 5 mg-325 1 tab PO Q6H PRN pain 3 days #12 0 12/07/24 Unknown Rx mg tablet (Percocet) tabs lactase 3,000 unit tablet (Dairy 3,000 unit PO .WITH LACTOSE Unknown History Relief) PRODUCT PRN lactose intolerant sertraline 25 mg tablet (Zoloft) 50 mg PO DAILY ANXIETY 12/08/24 Un known History sertraline 50 mg tablet (Zoloft) 50 mg PO DAILY #30 tabs 01/10/25 U nknown Rx Allergy/AdvReac Type Severity Reaction Status Date / Time lactase (From Dairy Aid) Allergy Mild Abdominal Verified 01/10/25 11:57 cramping Family History Grandfather Leukemia DVT (deep venous thrombosis) Grandmother Breast cancer Grandmother Diabetes Heart disease Lung cancer Surgical History History of surgery History of removal of cyst H/O tooth extraction Social History Smoking Status: Never smoker alcohol intake: never what type of physical activity do you participate in: additional details: gym, sports seatbelt use: always ROS ROS ED Neurologic Neurologic: Denies paresthesias or weakness Psychiatric Psychiatric: Reports depression; Denies suicidal ideation or suicidal thoughts EXAM Physical Exam Const Vital Signs: 01/10/25 11:56 Temperature 98 F Temperature Source Temporal Pulse Rate 79 Respiratory Rate 18 Blood Pressure 146/89 H Blood Pressure Mean 108 Pulse Ox 100 Oxygen Delivery Method Room Air Positive well nourished and well developed General Appearance ED: well developed, NAD and pallor HEENT Reports moist mucous membranes HEENT Narrative: Head is atraumatic and normocephalic. Eyes PERRL and EOMs intact bilaterally General Eye ED: Negative for pale conjunctiva Resp normal respiratory effort and clear to auscultation bilaterally Cardio regular rate, regular rhythm, S1 normal heart sound, S2 normal heart sound and no murmurs Extremity normal to inspection Extremity Narrative: Prior self-inflicted wounds that are well-healed Neuro oriented x3 and CN's II-XII intact bilaterally Sensorium / Orientation: alert Psych Psych Narrative: Affect is flat. Attitude: No agitated Mood Affect: Negative for anxious or tearful Skin no rashes or lesions noted, no wounds and skin turgor normal General Skin Exam: pallor; Negative for jaundice MDM MDM MDM Narrative Medical decision making narrative: Patient pr (more content not included)... Normal [facility] OT General Evaluationon 12-18 OT General Evaluation [facility] Occupational Therapy Health[address] [place] [address] / REHABILITATION SERVICES INITIAL EVALUATION MR#: [id number] Acct: [id number] Name: ORAL FLETCHER Rep #: [id number] : 2005 19 From: Montserrat Kunz Referring Dr.: Dr. Basilio Min MD Status: REG R Insurance: [facility] Ines Ramírez Date: SELF PAY INSURANCE Patient's Visit Information Visit Information Visit Information: ORAL FLETCHER is a 19 year old F, referred to Occupational Therapy by Dr. Basilio Min MD, with a diagnosis of . Date of Evaluation: 01/06/25 Occupational Therapist: Montserrat Kunz Subjective Subjective: Pt is a 19 y/o female referred by Dr. Min to this outpatient occupational therapy evaluation following a cat bite to R middle finger at her place of employment. She reports she has been working with [employer] for the last 3 years with a break for maternity leave. The initial bite was 12/07/24. Pt reports finger tip is numb but site of bite is can be painful when grabbing items and working. Pt reports she is L handed. ADLs Comments: Pt reports no full alteration in abilities now that wound is mostly healed. Pt reports full extension of RUE will cause shooting pain. Pain R Middle Finger: Current Pain Intensity: 0 Pain Intensity Range: 0, 1, 2 and 3 ROM ROM Comments: All ROM appears WNL Strength [employer]: R: 65 L: 90 Lateral Pinch: R: 8 L: 8 Tripod Pinch: R: 5 L: 8 Tip-to-Tip Pinch: R: 6 L: 6 Sensation Index: 2.36 Middle: 3.22 Rin.36 Quick DASH-Disab of Arm,Shoulder Hand Quick DASH Score: 0 Goals Goal:No pain with affected hand use: Yes Goal:Full use of affected hand in daily activities including work: Yes Goal:Improvement in sensation documented by [place] monofiliaments: Yes Rehabilitation Rehabilitation Potential: Excellent Anticipated Interventions Anticipated Interventions: Strengthening, Sensory Retraining, Wound Care and Modalities Visit Plan Frequency: 1x/Week Duration: 6 Weeks General Plan: Pt is 4 wks, 2 days post bite to R middle finger referred by Dr. Min. Pt would benefit from outpatient occupational therapy 1x/wk for 6 weeks to address sensory retraining, strengthening, and wound care as needed. TEXT: Thank you for the opportunity to evaluate your patient. For Medicare and Medicare HMO plans, please review the plan of care and approve it. It will need to be FAXED BACK to us at [phone] for Medicare purposes. Please let me know if there are questions or concerns regarding this plan of care. Physician Signature: Date: 01/10/25 1511 CC: Dr. Basilio Min MD; No Primary Care Physician OM Signed For Medicare only, by signing this I certify the plan of care. Physicians Signature Date [facility] Office Visit ([facility]) ORAL FLETCHER ([id number]) 3 F Date Time Provider Department 12/31/24 9:15 AM MARK MARTINEZ During your visit today, we recorded the following information about you: Temperature Pulse Respiration Blood pressure 97.7 degrees 65/minute 18/minute 110/68 Weight 58.6 kg Mark Martinez APRN.COMPUTER GRAPHICS ILLUSTRATOR 12/31/2024 9:36 AM Signed Subjective Oral Fletcher is a 19 year old female. HPI Patient presents today complaining of about 1 day of irritation in her left eye. She states that she felt irritation and removed her contact and noticed what appeared to be some foreign material on the contact. She has not been wearing her contacts since. She denies any eye pain or vision changes but does note irritation of the eye. My week ago patient also had received IV antibiotics for cat bite infection and notes that she had a mild generalized rash which is now just on the palmar aspect of her left forearm. She denies any other rashes or any other health concerns. Denies any recent fevers. Review of Systems As above Objective BP 110/68 Pulse 65 Temp 36.5 ?C (97.7 ?F) Resp 18 Wt 58.6 kg (129 lb 3 oz) LMP 10/25/2024 (Approximate) SpO2 100% BMI 21.83 kg/m? Physical Exam Vitals and nursing note reviewed. Constitutional: General: She is not in acute distress. Appearance: Normal appearance. She is not ill-appearing. HENT: Head: Normocephalic. Eyes: Comments: Injection of the left conjunctiva. Pulmonary: Effort: Pulmonary effort is normal. Musculoskeletal: General: Normal range of motion. Skin: General: Skin is warm. Neurological: General: No focal deficit present. Mental Status: She is alert and oriented to person, place, and time. Psychiatric: Mood and Affect: Mood normal. Behavior: Behavior normal. ASSESSMENT/PLAN: 1. Irritant contact dermatitis due to other agents - ICD9: 692.89, ICD10: L24.89 (primary diagnosis) -Discussed with patient that symptoms seem consistent with some sort of contact dermatitis, possibly even poison noy. Patient given prescriptions as noted below for symptomatic relief. - CETIRIZINE 10 MG TABLET - PREDNISONE 50 MG TABLET 2. Acute bacterial conjunctivitis of left eye - ICD9: 372.03, ICD10: H10.32 -Left eye was numbed with tetracaine and stained with fluorescein and using black light no obvious dye uptake noted. No obvious foreign bodies noted. I do feel symptoms are more consistent with bacterial conjunctivitis. As patient is contact wearer she was given prescriptions as noted below and instructed to follow-up with ophthalmology for further evaluation and management. Patient comfortable with plan - MOXIFLOXACIN 0.5 % EYE DROPS Mark Martinez APRN.CNP Allergies As of Date: 12/31/2024 Noted Allergy Reaction EUCALYPTUS 05/05/2024 2 - Rash Comments: Chemical burn LACTASE 06/26/2020 14 - Other: See Comments Date Reviewed: 12/31/2024 Reviewed by: Mark Martinez APRN.CNP - Fully Assessed Reason for Visit: Conjunctivitis [24] Cmt: Bilateral, L eye worse x1 day Allergic Reaction [201] Cmt: Was recently on steroids and antibiotics for cat bite, possible allergic skin reaction to medication, L forearm Primary Visit Diagnosis:Irritant contact dermatitis due to other agents [L24.89] Other Visit Diagnosis:Acute bacterial conjunctivitis of left eye [H10.32] Order(s):moxifloxacin (VIGAMOX) 0.5 % ophthalmic solutionUse 1 drop in the right eye three times a day.Disp: 3 mLRfl: 0 cetirizine (ZYRTEC) 10 mg tabletTake 1 tablet by mouth once daily for 14 days.Disp: 14 tabletRfl: 0 predniSONE (DELTASONE) 50 mgTake 1 tablet by mouth once daily for 5 days.Disp: 5 tabletRfl: 0 Prescriptions as of 12/31/2024 - amoxicillin-clavulanate potassium (AUGMENTIN) 875-125 mg per tablet Take 1 tablet by mouth every 12 hours. - moxifloxacin (VIGAMOX) 0.5 % ophthalmic solution Use 1 drop in the right eye three times a day. - cetirizine (ZYRTEC) 10 mg tablet Take 1 tablet by mouth once daily for 14 days. - predniSONE (DELTASONE) 50 mg Take 1 tablet by mouth once daily for 5 days. - sertraline (ZOLOFT) 25 mg tablet Take 1 tablet by mouth once daily. - copper (PARAGARD) 380 square mm intrauterine device 1 Intra Uterine Device by INTRAUTERINE route as directed. Problem List As Of Date 12/31/2024 Noted Resolved Nocturnal enuresis [N39.44] 10/16/2010 02/22/2020 Seborrhea [L21.9] 06/05/2016 Chronic cough [R05.3] 06/10/2017 11/25/2019 Influenza vaccine refused [Z28.21] 06/10/2017 12/02/2023 Flat foot [M21.40] 01/14/2019 Ganglion cyst of wrist, left [M67.432] 02/22/2020 Chronic pain of right knee [M25.561, G89.29] 02/22/2020 Nevus [D22.9] 02/22/2020 Patellar dislocation, left, subsequent encounte*02/04/2022 12/02/2023 S/P orthopedic surgery, follow-up exam [Z09] 02/04/2022 12/02/2023 S/P knee surgery [Z98.890] 08/19/2023 12/02/2023 General (more content not included)... Normal [facility] Plastic Surgery Visit Report on 12-17-2024 Plastic Surgery Visit Report [facility] Plastic Reconstructive Surgery [address], [address] [place] [address] OFFICE VISIT Date of Service: 12/17/24 MR#: [id number] Acct: [id number] Name: ORAL FLETCHER Rep #: [id number] : 2005 Provider: Dr. Basilio Min MD Age/Sex: 19/F Location[facility] Status: Signed Intake Vital Signs 12/08/24 13:41 12/17/24 10:17 Height 5 ft 4 in BP 102/66 Blood Pressure Location Rt brachial Position Sitting Respiration 18 Pulse 60 Pulse Source Monitor Pulse Oximetry (%) 98 Oxygen Delivery Method room air Intake Visit Reasons: ED FOLLOW UP-[facility] Chief Complaint: ED F/U cat bite Allergies lactase (From Dairy Aid) Allergy (Mild, Verified 12/05/24 10:40) Abdominal cramping Medications ???Medication ???Instructions ???Recorded ???Confirmed ???Type vit no.95-ferrous 1 tab PO DAILY SUPPLEMENT 03/21/24 12/17/24 History fumarate 28 mg-folic acid 800 mcg tablet () pantoprazole 40 mg granules 40 mg PO PRN INDIGESTION 05/25/24 12/17/24 History delayed-release for susp in packet (Protonix) sennosides 8.6 mg-docusate sodium 1 - 2 tab PO DAILY PRN PRN 12/17/24 Rx 50 mg tablet (Stimulant Laxative Constipation #30 tabs Plus) hydrocodone-acetaminoph en 5-325mg 1 tab PO Q4H PRN pain 2 days #8 0 08/17/24 12/17/24 Rx 5mg-325mg tabs amoxicillin 875 mg-potassium 1 tab PO BID 10 days #20 tabs 07/07/1312/17/24 Rx clavulanate 125 mg tablet oxycodone-acetaminophen 5 mg-325 1 tab PO Q6H PRN pain 3 days #12 0 12/07/24 12/17/24 Rx mg tablet (Percocet) tabs lactase 3,000 unit tablet (Dairy 3,000 unit PO .WITH LACTOSE 12/17/24 History Relief) PRODUCT PRN lactose intolerant sertraline 25 mg tablet (Zoloft) 50 mg PO DAILY ANXIETY 12/08/24 History PFSH Medical History Anxiety Encounter for screening for COVID-19 Surgical History History of surgery History of removal of cyst H/O tooth extraction Family History Grandfather Leukemia DVT (deep venous thrombosis) Grandmother Breast cancer Grandmother Diabetes Heart disease Lung cancer Social History Smoking Status: Never smoker alcohol intake: never what type of physical activity do you participate in: additional details: gym, sports seatbelt use: always HPI ED FOLLOW UP-[facility] Details: Patient here for follow-up after being discharged after a cat bite while working in the main [employer]. This was a work-related injury. She has been doing well after admission and treatment. She is finishing her antibiotics. No fevers chills or drainage, still some persistent pain in the fingertip. But no pain in the thumb. The cat was euthanized and the brain was sent for evaluation for rabies. ROS General General: Yes good health; No fatigue HENMT HENMT: Yes rhinitis and sore throat/mouth sore Endo Endocrine: No thyroid disease, polydipsia, heat intolerance, cold intolerance, hepatitis or excessive urine Skin Skin: Yes Bleeding, bruising and changing moles; No suspicious lesion Musc Musculoskeletal: Yes joint pain and joint stiffness; No muscle weakness, back pain, osteoarthritis or Muscle aches/ myalgia Neuro Neurological: No headache(s), Yes lightheadedness and No numbness Cardio Cardiovascular: No chest pain, pacemaker, fatigue or shortness of breat with exertion Psych Psychiatric: Yes depression; No claustrophobia or anxiety Resp Respiratory: No spitting up, shortness of breath, sleep apnea, asthma, emphysema, TB, Cough or Smoker Gastro Gastrointestinal: No diarrhea, constipation, blood in stool, nausea, vomiting or abdominal bloating Virgilio Hematologic: Yes anemia, No bleeding and No abnormal bleeding Genitourinary: No urinary frequency, blood in urine or incontinence Exam Details Right upper Extremity Inspection: right index fingertip with very small wound. Still some slight pain to palpation, but much improved and no fluid collections. No tenderness over the A1 ella No pain with excursion of the index finger flexor tendon or with passive extension No pain along the flexor sheath Motor: Able to bend and extend all MP, PIP, and DIP joints. Sensory: Intact to light touch on the radial and ulnar borders. Vascular: Finger tips are warm and well perfused with <2 second capillary refill. Left upper Extremity Inspection: Bite wound over the left dorsal thumb healed Palpation: No pain with palpation Motor: Able to bend and extend all MP, PIP, and DIP joints. Sensory: Intact to light touch on the radial and ulnar borders. Vascular: Finger (more content not included)... Normal [facility] Culture, Blood (WB)on 2024 CUB Blood cultures x2, f rom two different sites No growth in 5 days. Normal [facility] Comment on above: Performed By: #### L 500.2500, L100.0100 #### [facility] [address] [place], [address] Culture, Anaerobic Any Sourc jose martin 12-12-2024 CUAN right hand No anaerobic bacteria isolated. Normal [facility] Comment on above: Performed By: #### L 500.2500, L100.0100 #### [facility] [address] [place], [address] Wound Cultureon 12-12-2024 WC right hand #2 Clinical correlation necessary, Possible skin contamination. Pasteurella multocida Amount Growth Very Rare Beta Lactamase-Reportable Negative SCAP Amount Growth Very Rare Staphylococcus capitis cefOXitin Susc Islt Doxycycline Islt LILIANA <=0.5 S Clindamycin Islt LILIANA <=0.12 Clindamycin.induced Susc Islt NEG Erythromycin Islt LILIANA <=0.25 S Gentamicin Islt LILIANA <=0.5 S Linezolid Islt LILIANA 2 S Oxacillin Susc Islt <=0.25 S Tetracycline Islt LILIANA <=1 S TMP SMX Islt LILIANA <=10 S Vancomycin Islt LILIANA <=0.5 S Normal [facility] Comment on above: Performed By: #### L 500.2500, L100.0100 #### [facility] [address] [place], [address] Discharge Instructionon 11-17 Discharge Instruction [facility] Medical Records Department [address] [place] [address] Instructions for Home/Discharge Instructions 12/10/24 0825 MR#: [id number] Acct: [id number] Name: ORAL FLETCHER Rep #: [id number] : 2005 From: Gilbert Whittington MD PCP: Avinash Physician,No Primary Status:ADM IN Discharge Instructions DC O2, CPAP, BIPAP needs Home O2 Discharge instructions: No Dressing / Incision Call your doctor if you observe: Fever of 101 or Higher, Shortness of breath, Dizziness, Fainting spells, Swelling in the ankles, Chest pain and Increased palpitations (irregular heartbeat) Additional Dressing/Incision Instructions:: Continue soaks TID Dial soap soaks over the weekend and band aid at home Follow Up Care Test Results: Test results from this visit will be discussed in further detail at your follow-up appointment, if applicable. Discharge Plan Admission Admit Date/Time: 12/08/24 07:23 Attending Provider: Gilbert Whittington Primary Care Provider: Care Physician,No Primary Consulting Providers: Basilio Min Discharge Orders/Prescriptions Prescriptions: Continued PNV cmb#95-ferrous fumarate-FA [] 28 mg iron- 800 mcg tablet 1 tab PO DAILY pantoprazole [Protonix] [address] for susp in packet 40 mg PO PRN sennosides-docusate sodium [Stimulant Laxative Plus] 8.6-50 mg Tablet 1 - 2 tab PO DAILY PRN PRN (Reason: Constipation) Qty: 30 0RF hydrocodone-acetaminoph en 5-325 mg tablet 1 tab PO Q4H PRN (Reason: pain) 2 Days Qty: 8 0RF amoxicillin-pot clavulanate 875-125 mg tablet 1 tab PO BID 10 Days Qty: 20 0RF oxycodone-acetaminophen [Percocet] 5-325 mg tablet 1 tab PO Q6H PRN (Reason: pain) 3 Days Qty: 12 0RF sertraline [Zoloft] 25 mg tablet 50 mg PO DAILY lactase [Dairy Relief] 3,000 unit tablet 3,000 unit PO .WITH LACTOSE PRODUCT PRN (Reason: lactose intolerant) Rx Instructions: 3,000 units orally WITH LACTOSE PRODUCTS PRN; Referrals / Follow Up: Basilio Min MD [Med Staff - Active Staff] - 12/13/24 Care Physician,No Primary [Primary Care Provider] - Disposition Disposition (needs filled in before D/C Order can be placed): Home, Self Care 12/10/24827 Gilbert Whittington MD CC: Dr. Basilio Min MD; No Primary Care Physician Signed Normal [facility] Trough vancomycin levelOrder ed By: Gilbert Whittington on 12-10-2024 Vancomycin trough [Mass/Vol] 21.2 ug/mL High 5.0-15.0 [facility] Comment on above: Recommended goal tro ugh ranges are generally 10-15 mcg/ml for less severe/complicated infections such as cellulitis or UTI and 15-20 mcg/ml for more severe/complicated infections such as bacteremia/sepsis, osteomyelitis, pneumonia or meningitis. Goal trough ranges should take into account indication, patient-specific factors and organism LILIANA.VANCOMYCIN STANDARED DRUG THERAPY TROUGH LEVEL: 5.0 - 15.0 mg/L VANCOMYCIN HIGH INTENSITY THERAPY TROUGH LEVEL: 15.0 - 20.0 mg/L High Intensity therapy recommended for serious lifethreatening infections include:- Qyrnemnphx-Bowspxxseuxd-Curukafox (Ventilator/Healtcare Associated)-Sepsis PLEASE CONTACT PHARMACY SERVICES (#[id number]) FOR INTERPRETATIONOF RESULTS. Vancomycin, Trough Levelon 0 12-10-2024 VANCO, TROUGH 21.2 ug/mL High 5.0-15.0 [facility] Comment on above: Order Comment: Comme nts: Trough to be drawn 30 mins prior to scheduled dose Result Comment: Gabriele mmended goal trough ranges are generally 10-15 mcg/ml for less severe/complicated infections such as cellulitis or UTI and 15-20 mcg/ml for more severe/complicated infections such as bacteremia/sepsis, osteomyelitis, pneumonia or meningitis. Goal trough ranges should take into account indication, patient-specific factors and organism LILIANA. VANCOMYCIN STANDARED DRUG THERAPY TROUGH LEVEL: 5.0 - 15.0 mg/L VANCOMYCIN HIGH INTENSITY THERAPY TROUGH LEVEL: 15.0 - 20.0 mg/L High Intensity therapy recommended for serious life threatening infections include: - Meningitis -Endocarditis -Pneumonia (Ventilator/Healtcare Associated) -Sepsis PLEASE CONTACT PHARMACY SERVICES (#[id number]) FOR INTERPRETATION OF RESULTS. Performed By: #### L 509.8000 #### [facility] [address] [place], [place], [id number] Absolute lymphocyte countOrd ered By: Gilbert Whittington on 12-09-2024 Lymphocytes Auto (Unsp spec) [#/Vol] 1.34 10*3/uL 0.83-4.51 [facility] Absolute neutrophil countOrd ered By: Gilbert Whittington on 12-09-2024 Neutrophils (Bld) [#/Vol] 1.6 10*3/uL Low 2.0-7.7 [facility] Anion gap in Serum or Plasma Ordered By: Gilbert Whittington on 12-09-2024 Anion gap [Moles/Vol] 7 mmol/L - [facility] Automated lymphocyte count a s percentage of total leukocytesOrdered By: Gilbert Whittington on 12-09-2024 Lymphocytes/100 WBC Auto (Unsp spec) 40.0 % - [facility] BUN/creatinine ratioOrdered By: Gilbert Whittington on 12-09-2024 Urea nitrogen/Creatinine [Mass ratio] 11.1 mg/mg - [facility] Basic Metabolic Profile (BMP )on 12-09-2024 BUN/CRE 11.1 RATIO Normal - [facility] Comment on above: Performed By: #### L 500.2500, L100.0100 #### [facility] [address] [place], [address] Calcium [Mass/Vol] 8.7 mg/dL Normal 7.6-11.0 [facility] Comment on above: Performed By: #### L 500.2500, L100.0100 #### [facility] [address] [place], [address] Chloride [Moles/Vol] 108 mmol/L Normal 98-108 [facility] Comment on above: Performed By: #### L 500.2500, L100.0100 #### [facility] [address] [place], [address] CO2 [Moles/Vol] 24.7 mmol/L Normal 21.0-32.0 [facility] Comment on above: Performed By: #### L 500.2500, L100.0100 #### [facility] [address] [place], [address] Creatinine [Mass/Vol] 0.68 mg/dL Low 0.70-1.20 [facility] Comment on above: Performed By: #### L 500.2500, L100.0100 #### [facility] [address] [place], [address] ECRCL 113.96 ml/min Normal 50-250 [facility] Comment on above: Performed By: #### L 500.2500, L100.0100 #### [facility] [address] [place], [address] GAP 7 Normal 5-15 [facility] Comment on above: Performed By: #### L 500.2500, L100.0100 #### [facility] [address] [place], [address] GFR/1.73 sq M.predicted among non-blacks MDRD (S/P/Bld) [Vol rate/Area] 128 mL/min/{1.73_m2} Normal >60 [facility] Comment on above: Result Comment: mL/m in/1.73m2 CKD-EPI Creatinine Equation (2020) Performed By: #### L 500.2500, L100.0100 #### [facility] [address] [place], [address] Glucose [Mass/Vol] 94 mg/dL Normal 70-99 [facility] Comment on above: Performed By: #### L 500.2500, L100.0100 #### [facility] [address] [place], [address] Potassium [Moles/Vol] 4.1 mmol/L Normal 3.3-5.1 [facility] Comment on above: Performed By: #### L 500.2500, L100.0100 #### [facility] [address] [place], [address] Sodium [Moles/Vol] 139 mmol/L Normal 133-145 [facility] Comment on above: Performed By: #### L 500.2500, L100.0100 #### [facility] [address] [place], [address] Urea nitrogen [Mass/Vol] 8 mg/dL Normal 4-19 [facility] Comment on above: Performed By: #### L 500.2500, L100.0100 #### [facility] [address] [place], [address] Basophil percentageOrdered B y: Gilbert Whittington on 12-09-2024 Basophils/100 WBC (Bld) 0.3 % 0-1 [facility] CBC W/Diff, Automatedon 11-17 Absolute Lymph 1.34 X10 3/uL Normal 0.83-4.51 [facility] Comment on above: Performed By: #### L 500.2500, L100.0100 #### [facility] [address] [place], [address] Absolute Neut 1.6 X10 3/uL Low 2.0-7.7 [facility] Comment on above: Performed By: #### L 500.2500, L100.0100 #### [facility] [address] [place], [address] Basophils/100 WBC (Bld) 0.3 % Normal 0-1 [facility] Comment on above: Performed By: #### L 500.2500, L100.0100 #### [facility] [address] [place], [address] Eosinophils/100 WBC (Bld) 2.7 % Normal 0-5 [facility] Comment on above: Performed By: #### L 500.2500, L100.0100 #### [facility] [address] [place], [address] Erythrocyte distribution width (RBC) [Ratio] 13.5 % Normal 11.6-14.6 [facility] Comment on above: Performed By: #### L 500.2500, L100.0100 #### [facility] [address] [place], [address] Hematocrit (Bld) [Volume fraction] 33.0 % Low 37-47 [facility] Comment on above: Performed By: #### L 500.2500, L100.0100 #### [facility] [address] [place], [address] Hemoglobin (Bld) [Mass/Vol] 11.5 g/dL Low 12.0-15.0 [facility] Comment on above: Performed By: #### L 500.2500, L100.0100 #### [facility] [address] [place], [address] IG% 0.300 Normal 0.0-0.9 [facility] Comment on above: Result Comment: IG% - Immature Granulocytes (promyelocytes, myelocytes and metamyelocytes) > 1% indicates that a LEFT SHIFT is Present. Performed By: #### L 500.2500, L100.0100 #### [facility] [address] [place], [address] Lymphocytes/100 WBC (Bld) 40.0 % Normal 19-41 [facility] Comment on above: Performed By: #### L 500.2500, L100.0100 #### [facility] [address] [place], [address] MCH (RBC) [Entitic mass] 29.3 pg Normal 27.0-32.0 [facility] Comment on above: Performed By: #### L 500.2500, L100.0100 #### [facility] [address] [place], [address] MCHC (RBC) [Mass/Vol] 34.8 g/dL Normal 32-36 [facility] Comment on above: Performed By: #### L 500.2500, L100.0100 #### [facility] [address] [place], [address] MCV (RBC) [Entitic vol] 84.2 fL Normal 81-99 [facility] Comment on above: Performed By: #### L 500.2500, L100.0100 #### [facility] [address] [place], [address] Monocytes/100 WBC (Bld) 8.1 % Normal 0-10 [facility] Comment on above: Performed By: #### L 500.2500, L100.0100 #### [facility] [address] [place], [address] Neutrophils/100 WBC (Bld) 48.6 % Normal 47-70 [facility] Comment on above: Performed By: #### L 500.2500, L100.0100 #### [facility] [address] [place], [address] Nucleated RBC (Bld) [#/Vol] 0 10*3/uL Normal 0-5 [facility] Comment on above: Performed By: #### L 500.2500, L100.0100 #### [facility] [address] [place], [address] Platelet mean volume (Bld) [Entitic vol] 11.1 fL Normal 6.2-12.0 [facility] Comment on above: Performed By: #### L 500.2500, L100.0100 #### [facility] [address] [place], [address] Platelets (Bld) [#/Vol] 127 10*3/uL Low 150-450 [facility] Comment on above: Performed By: #### L 500.2500, L100.0100 #### [facility] [address] [place], [address] RBC (Bld) [#/Vol] 3.92 10*6/uL Low 4.2-5.4 [facility] Comment on above: Performed By: #### L 500.2500, L100.0100 #### [facility] [address] [place], [address] RDW SD 41.5 fl Normal 35.1-43.9 [facility] Comment on above: Performed By: #### L 500.2500, L100.0100 #### [facility] [address] [place], [address] WBC (Bld) [#/Vol] 3.4 10*3/uL Low 4.4-11.0 [facility] Comment on above: Performed By: #### L 500.2500, L100.0100 #### [facility] [address] [place], [address] Carbon dioxide, total [Moles /volume] in Central venous bloodOrdered By: Gilbert Whittington on 12-09-2024 CO2 [Moles/Vol] 24.7 mmol/L 21.0-32.0 [facility] Chloride assayOrdered By: Yvonne Whittington on 12-09-2024 Chloride [Moles/Vol] 108 mmol/L 98-108 [facility] Eosinophil percentageOrdered By: Gilbert Whittington on 12-09-2024 Eosinophils/100 WBC (Bld) 2.7 % 0-5 [facility] Erythrocyte distribution wid th ratioOrdered By: Gilbert Whittington on 12-09-2024 Erythrocyte distribution width (RBC) [Ratio] 13.5 % 11.6-14.6 [facility] Erythrocyte distribution wid th standard deviationOrdered By: Gilbert Whittington on 12-09-2024 Erythrocyte distribution width (RBC) [Ratio] 41.5 fl 35.1-43.9 [facility] Glomerular filtration rate ( GFR) estimation/1.73 sq m using serum, plasma, or whole bOrdered By: Gilbert Whittington on 12-09-2024 GFR/1.73 sq M.predicted among non-blacks MDRD (S/P/Bld) [Vol rate/Area] 128 mL/min/{1.73_m2} >60 [facility] Comment on above: mL/min/1.73m2 CKD-EP I Creatinine Equation (2020) Gram Stainon 12-09-2024 GS right hand Gram Stain No organisms seen No Epithelial cells Normal [facility] Comment on above: Performed By: #### L 500.2500, L100.0100 #### [facility] [address] [place] [address], [address] Hematocrit Auto (Bld) [Volum e fraction]Ordered By: Gilbert Whittington on 12-09-2024 Hematocrit (Bld) [Volume fraction] 33.0 % Low 37-47 [facility] Hemoglobin measurementOrdere d By: Gilbert Whittington on 12-09-2024 Hemoglobin (Bld) [Mass/Vol] 11.5 g/dL Low 12.0-15.0 [facility] Immature granulocytes/100 WB C Auto (Bld)Ordered By: Gilbert Whittington on 12-09-2024 Immature granulocytes/100 WBC (Bld) 0.300 % 0.0-0.9 [facility] Comment on above: IG% - Immature Granu locytes (promyelocytes, myelocytes and metamyelocytes) > 1% indicates that a LEFT SHIFT is Present. MCV (mean corpuscular volume ) determinationOrdered By: Gilbert Whittington on 12-09-2024 MCV (RBC) [Entitic vol] 84.2 fL 81-99 [facility] Mean corpuscular hemoglobin (MCH) determinationOrdered By: Gilbert Whittington on 12-09-2024 MCH (RBC) [Entitic mass] 29.3 pg 27.0-32.0 [facility] Mean corpuscular hemoglobin concentration (MCHC) determinationOrdered By: Gilbert Whittington on 12-09-2024 MCHC (RBC) [Mass/Vol] 34.8 g/dL 32-36 [facility] Mean platelet volume determi nationOrdered By: Gilbert Whittington on 12-09-2024 Platelet mean volume (Bld) [Entitic vol] 11.1 fL 6.2-12.0 [facility] Monocyte percentageOrdered B y: Giblert Whittington on 12-09-2024 Monocytes/100 WBC (Bld) 8.1 % 0-10 [facility] Neutrophil percentageOrdered By: Gilbert Whittington on 12-09-2024 Neutrophils/100 WBC (Bld) 48.6 % 47-70 [facility] Nucleated red blood cell per centageOrdered By: Gilbert Whittington on 12-09-2024 Nucleated RBC/100 WBC (Bld) [Ratio] 0 % 0-5 [facility] Platelet countOrdered By: Yvonne Whittington on 12-09-2024 Platelets (Bld) [#/Vol] 127 10*3/uL Low 150-450 [facility] Potassium measurement (mass/ volume)Ordered By: Gilbert Whittington on 12-09-2024 Potassium (Unsp spec) [Mass/Vol] 4.1 mmol/L 3.3-5.1 [facility] RBC Auto (Bld) [#/Vol]Ordere d By: Gilbert Whittington on 12-09-2024 RBC (Bld) [#/Vol] 3.92 10*6/uL Low 4.2-5.4 [facility] Serum creatinine measurement (mass/volume)Ordered By: Gilbert Whittington on 12-09-2024 Creatinine [Mass/Vol] 0.68 mg/dL Low 0.70-1.20 [facility] Serum glucose measurement (m ass/volume)Ordered By: Gilbert Whittington on 12-09-2024 Glucose [Mass/Vol] 94 mg/dL 70-99 [facility] Serum or plasma calcium harriet urement (mass/volume)Ordered By: Gilbert Whittington on 12-09-2024 Calcium [Mass/Vol] 8.7 mg/dL 7.6-11.0 [facility] Serum or plasma urea nitroge n measurement (mass/volume)Ordered By: Gilbert Whittington on 12-09-2024 Urea nitrogen [Mass/Vol] 8 mg/dL 4-19 [facility] Sodium levelOrdered By: Humberto Whittington on 12-09-2024 Sodium [Moles/Vol] 139 mmol/L 133-145 [facility] Vancomycin, Trough Levelon 0 12-09-2024 VANCO, TROUGH 11.7 ug/mL Normal 5.0-15.0 [facility] Comment on above: Order Comment: Comme nts: Trough to be drawn 30 mins prior to scheduled dose Result Comment: Gabriele mmended goal trough ranges are generally 10-15 mcg/ml for less severe/complicated infections such as cellulitis or UTI and 15-20 mcg/ml for more severe/complicated infections such as bacteremia/sepsis, osteomyelitis, pneumonia or meningitis. Goal trough ranges should take into account indication, patient-specific factors and organism LILIANA. VANCOMYCIN STANDARED DRUG THERAPY TROUGH LEVEL: 5.0 - 15.0 mg/L VANCOMYCIN HIGH INTENSITY THERAPY TROUGH LEVEL: 15.0 - 20.0 mg/L High Intensity therapy recommended for serious life threatening infections include: - Meningitis -Endocarditis -Pneumonia (Ventilator/Healtcare Associated) -Sepsis PLEASE CONTACT PHARMACY SERVICES (#[phone]) FOR INTERPRETATION OF RESULTS. Performed By: #### L 501.8820 #### [facility] [address] [place], [address] White blood cell (WBC) count Ordered By: Gilbert Whittington on 12-09-2024 WBC (Bld) [#/Vol] 3.4 10*3/uL Low 4.4-11.0 [facility] Absolute lymphocyte countOrd ered By: Vlad Jay on 12-08-2024 Lymphocytes Auto (Unsp spec) [#/Vol] 2.03 10*3/uL 0.83-4.51 [facility] Absolute neutrophil countOrd ered By: Vlad Jay on 12-08-2024 Neutrophils (Bld) [#/Vol] 2.4 10*3/uL 2.0-7.7 [facility] Anaerobic cultureOrdered By: Basilio Min on 12-08-2024 Bacteria identified Anaer cx Nom (Unsp spec) No anaerobic bacteria isolated. [facility] Anion gap in Serum or Plasma Ordered By: Vlad Jay on 12-08-2024 Anion gap [Moles/Vol] 12 mmol/L 5- [facility] Automated lymphocyte count a s percentage of total leukocytesOrdered By: Vlad Jay on 12-08-2024 Lymphocytes/100 WBC Auto (Unsp spec) 41.4 % High 19- [facility] BUN/creatinine ratioOrdered By: Vlad Jay on 12-08-2024 Urea nitrogen/Creatinine [Mass ratio] 11.7 mg/mg 10- [facility] Basic Metabolic Profile (BMP )on 12-08-2024 BUN/CRE 11.7 RATIO Normal - [facility] Comment on above: Performed By: #### L 509.8000 #### [facility] [address] [place], [address] Calcium [Mass/Vol] 9.1 mg/dL Normal 7.6-11.0 [facility] Comment on above: Performed By: #### L 509.8000 #### [facility] [address] [place], [address] Chloride [Moles/Vol] 104 mmol/L Normal 98-108 [facility] Comment on above: Performed By: #### L 509.8000 #### [facility] [address] [place], [address] CO2 [Moles/Vol] 23.9 mmol/L Normal 21.0-32.0 [facility] Comment on above: Performed By: #### L 509.8000 #### [facility] [address] [place], [address] Creatinine [Mass/Vol] 0.69 mg/dL Low 0.70-1.20 [facility] Comment on above: Performed By: #### L 509.8000 #### [facility] [address] [place], [address] ECRCL 112.31 ml/min Normal 50-250 [facility] Comment on above: Performed By: #### L 509.8000 #### [facility] [address] [place], [address] GAP 12 Normal 5-15 [facility] Comment on above: Performed By: #### L 509.8000 #### [facility] [address] [place], [address] GFR/1.73 sq M.predicted among non-blacks MDRD (S/P/Bld) [Vol rate/Area] 127 mL/min/{1.73_m2} Normal >60 [facility] Comment on above: Result Comment: mL/m in/1.73m2 CKD-EPI Creatinine Equation (2020) Performed By: #### L 509.8000 #### [facility] [address] [place], [address] Glucose [Mass/Vol] 100 mg/dL High 70-99 [facility] Comment on above: Performed By: #### L 509.8000 #### [facility] [address] [place], [address] Potassium [Moles/Vol] 3.3 mmol/L Normal 3.3-5.1 [facility] Comment on above: Performed By: #### L 509.8000 #### [facility] [address] [place], [address] Sodium [Moles/Vol] 139 mmol/L Normal 133-145 [facility] Comment on above: Performed By: #### L 509.8000 #### [facility] [address] [place], [address] Urea nitrogen [Mass/Vol] 8 mg/dL Normal 4-19 [facility] Comment on above: Performed By: #### L 509.8000 #### [facility] [address] [place], [address] Basophil percentageOrdered B y: Vlad Jay on 12-08-2024 Basophils/100 WBC (Bld) 0.0 % 0-1 [facility] Blood cultureOrdered By: Koko Jay on 12-08-2024 Bacteria identified Cx Nom (Bld) No growth in 5 days. [facility] Bacteria identified Cx Nom (Bld) No growth in 5 days. [facility] CBC W/Diff, Automatedon 11-17 Absolute Lymph 2.03 X10 3/uL Normal 0.83-4.51 [facility] Comment on above: Performed By: #### L 509.8000 #### [facility] [address] [place], [address] Absolute Neut 2.4 X10 3/uL Normal 2.0-7.7 [facility] Comment on above: Performed By: #### L 509.8000 #### [facility] [address] [place], [address] Basophils/100 WBC (Bld) 0.0 % Normal 0-1 [facility] Comment on above: Performed By: #### L 509.8000 #### [facility] [address] [place], [address] Eosinophils/100 WBC (Bld) 1.6 % Normal 0-5 [facility] Comment on above: Performed By: #### L 509.8000 #### [facility] [address] [place], [address] Erythrocyte distribution width (RBC) [Ratio] 13.4 % Normal 11.6-14.6 [facility] Comment on above: Performed By: #### L 509.8000 #### [facility] [address] [place], [address] Hematocrit (Bld) [Volume fraction] 34.7 % Low 37-47 [facility] Comment on above: Performed By: #### L 509.8000 #### [facility] [address] [place], [address] Hemoglobin (Bld) [Mass/Vol] 12.2 g/dL Normal 12.0-15.0 [facility] Comment on above: Performed By: #### L 509.8000 #### [facility] [address] [place], [address] IG% 0.200 Normal 0.0-0.9 [facility] Comment on above: Result Comment: IG% - Immature Granulocytes (promyelocytes, myelocytes and metamyelocytes) > 1% indicates that a LEFT SHIFT is Present. Performed By: #### L 509.8000 #### [facility] [place], [address] Lymphocytes/100 WBC (Bld) 41.4 % High 19-41 [facility] Comment on above: Performed By: #### L 509.8000 #### [facility] [address] [place], [address] MCH (RBC) [Entitic mass] 29.8 pg Normal 27.0-32.0 [facility] Comment on above: Performed By: #### L 509.8000 #### [facility] [address] [place], [address] MCHC (RBC) [Mass/Vol] 35.2 g/dL Normal 32-36 [facility] Comment on above: Performed By: #### L 509.8000 #### [facility] [address] [place], [address] MCV (RBC) [Entitic vol] 84.6 fL Normal 81-99 [facility] Comment on above: Performed By: #### L 509.8000 #### [facility] [address] [place], [address] Monocytes/100 WBC (Bld) 7.6 % Normal 0-10 [facility] Comment on above: Performed By: #### L 509.8000 #### [facility] [address] [place], [address] Neutrophils/100 WBC (Bld) 49.2 % Normal 47-70 [facility] Comment on above: Performed By: #### L 509.8000 #### [facility] [address] [place], [address] Nucleated RBC (Bld) [#/Vol] 0 10*3/uL Normal 0-5 [facility] Comment on above: Performed By: #### L 509.8000 #### [facility] [address] [place], [address] Platelet mean volume (Bld) [Entitic vol] 11.2 fL Normal 6.2-12.0 [facility] Comment on above: Performed By: #### L 509.8000 #### [facility] [address] [place], [address] Platelets (Bld) [#/Vol] 159 10*3/uL Normal 150-450 [facility] Comment on above: Performed By: #### L 509.8000 #### [facility] [address] [place], [address] RBC (Bld) [#/Vol] 4.10 10*6/uL Low 4.2-5.4 [facility] Comment on above: Performed By: #### L 509.8000 #### [facility] [address] [place], [address] RDW SD 41.1 fl Normal 35.1-43.9 [facility] Comment on above: Performed By: #### L 509.8000 #### [facility] [address] [place], [address] WBC (Bld) [#/Vol] 4.9 10*3/uL Normal 4.4-11.0 [facility] Comment on above: Performed By: #### L 509.8000 #### [facility] [address] [place], [address] CRPon 12-08-2024 C-REACTIVE PROT < 3.00 Normal 0.0-3.0 [facility] Comment on above: Performed By: #### L 500.2500, L100.0100 #### [facility] [address] [facility] [facility] [place], [address] Carbon dioxide, total [Moles /volume] in Central venous bloodOrdered By: Vlad Jay on 12-08-2024 CO2 [Moles/Vol] 23.9 mmol/L 21.0-32.0 [facility] Chloride assayOrdered By: Heaven Jay on 12-08-2024 Chloride [Moles/Vol] 104 mmol/L 98-108 [facility] Consultation - Surgicalon Consultation - Surgical [facility] Medical Records Department [address] [place] [address] Consultation - Surgical 12/08/24 0719 MR#: [id number] Acct: [id number] Name: ORAL FLETCHER Rep #: [id number] : 2005 19 From: Basilio Min MD PCP: Care Physician,No Primary Status:[facility]M [facility] Assessment Plan Assessment/Plan (1) Cat bite: (2) Cat bite: PLAN: Patient has cellulitis of the index finger on the right side and streaking erythema on the right side of the forearm and arm. She also has cellulitis on the left dorsal thumb. Recommend admission for IV antibiotics. Punch biopsy 3 mm tool used to open the scabs overlying the two larger cat bites on both the right index and the left thumb (patient gave verbal consent) to improve effectiveness of Dial soap soaks. Culture was also taken. Follow-up the wound cultures Elevate both extremities with warm elevators Agree with broad-spectrum antibiotics for now. 3 times daily Dial soap soaks (3) Cellulitis: HPI Consult Data Date of Consult: 12/08/24 Attending Care Provider: Oral Fletcher is a delightful 19-year-old female who presents as a consult after a cat bite to the index finger tip on the right hand and the left dorsal thumb on the left hand. The bite occurred yesterday while she was petting/working with a feral cat at the [employer]. The cat is currently under observation for rabies protocol. Patient's tetanus has been updated. She was discharged on Augmentin last night when she presented to the emergency department but presented today with streaking erythema up the right arm and forearm. She reports sharp severe pain at the fingertip of the right index finger worsened by movements and improved with rest and elevation. Same pain is on the dorsum of the left thumb. She denies any pain in the palm or pain with flexion of her fingers. She is being admitted to medicine for treatment with IV antibiotics [facility] Medical History Anxiety Encounter for screening for COVID-19 Home Medications ???Medication ???Instructions ???Recorded ???Last Taken ???Type vit no.95-ferrous 1 tab PO DAILY SUPPLEMENT 03/21/24 05/24/24 21:00 History fumarate 28 mg-folic acid 800 mcg 1 TAB tablet () pantoprazole 40 mg granules 40 mg PO PRN INDIGESTION 05/25/24 05/24/24 09:00 History delayed-release for susp in packet 40 mg (Protonix) sennosides 8.6 mg-docusate sodium 1 - 2 tab PO DAILY PRN PRN Unknown Rx 50 mg tablet (Stimulant Laxative Constipation #30 tabs Plus) hydrocodone-acetaminoph en 5-325mg 1 tab PO Q4H PRN pain 2 days #8 0 08/17/24 Unknown Rx 5mg-325mg tabs amoxicillin 875 mg-potassium 1 tab PO BID 10 days #20 tabs 11/17 07/13 Unknown Rx clavulanate 125 mg tablet oxycodone-acetaminophen 5 mg-325 1 tab PO Q6H PRN pain 3 days #12 0 12/07/24 Unknown Rx mg tablet (Percocet) tabs lactase 3,000 unit tablet (Dairy 3,000 unit PO .WITH LACTOSE Unknown History Relief) PRODUCT PRN lactose intolerant sertraline 25 mg tablet (Zoloft) 50 mg PO DAILY ANXIETY 12/08/24 Un known History Allergy/AdvReac Type Severity Reaction Status Date / [...] additional details: gym, sports seatbelt use: always Physical Exam Narrative Right upper Extremity Inspection: Area of induration on the right index fingertip but no fluid collections Palpation: Exquisite tenderness to palpation No tenderness over the A1 ella No pain with excursion of the index finger flexor tendon or with passive extension No pain along the flexor sheath Motor: Able to bend and extend all MP, PIP, and DIP joints. Sensory: Intact to light touch on the radial and ulnar borders. Vascular: Finger tips are warm and well perfused with <2 second capillary refill. Left upper Extremity Inspection: Bite wound over the left dorsal thumb without any fluid collections Palpation: Exquisite tenderness to palpation in this location Motor: Able to bend and extend all MP, PIP, and DIP joints. Sensory: Intact to light touch on the radial and ulnar borders. Vascular: Finger tips are warm and well perfused with <2 second capillary refill. Lab / Micro D (more content not included)... Normal [facility] Emergency Department Summary on 12-08-2024 Emergency Department Summary [facility] Medical Records Department [address] [place] [address] Emergency Department Summary 12/08/24 MR#: [id number] Acct: [id number] Name: ORAL FLETCHER Rep #: [id number] : 2005 19 From: Vlad Jay DO PCP: Care Physician,No Primary Status:REG ER Location: ED HPI History of Present Illness Chief Complaint: Wound Check Informant: patient Narrative Narrative: Patient is a 19-year-old female with no significant past medical history. She was seen yesterday evening secondary to being bit in the hand by a cat at the [employer]. She was started on Augmentin and her tetanus status was updated. She states that she awoke this morning secondary to persistent pain in the right hand/arm. She states when she looked [...] presents for evaluation. Patient is left-hand dominant [facility] Medical History Anxiety Encounter for [...] #8 0 08/17/24 Unknown Rx 5mg-325mg tabs amoxicillin 875 mg-potassium 1 tab PO BID 10 days #20 tabs 11/17 07/13 Unknown Rx clavulanate 125 mg tablet oxycodone-acetaminophen 5 mg-325 1 tab PO Q6H PRN pain 3 days #12 0 12/07/24 Unknown Rx mg tablet (Percocet) tabs [...] digit. There is no purulent drainage or discharge noted. The pad is soft and compressible going against felon. No nailbed involvement. There is now lymphangitic streaking extending from the lateral aspect of the digit across the forearm and humerus into the axilla. All compartments are soft and compressible going against compartment syndrome Patient has a scratch to the palmar aspect of the left hand with (more content not included)... Normal [facility] Eosinophil percentageOrdered By: Vlad Jay on 12-08-2024 Eosinophils/100 WBC (Bld) 1.6 % 0-5 [facility] Erythrocyte Sed Rateon 12-08 SED RATE < 1 Normal 0-30 [facility] Comment on above: Performed By: #### L 509.8000 #### [facility] Laboratory [address] [place], [address] Erythrocyte distribution wid th ratioOrdered By: Vlad Jay on 12-08-2024 Erythrocyte distribution width (RBC) [Ratio] 13.4 % 11.6-14.6 [facility] Erythrocyte distribution wid th standard deviationOrdered By: Vlad Jay on 12-08-2024 Erythrocyte distribution width (RBC) [Ratio] 41.1 fl 35.1-43.9 [facility] Erythrocyte sedimentation ra teOrdered By: Vlad Jay on 12-08-2024 ESR (Bld) [Velocity] mm/h 0-30 [facility] Glomerular filtration rate ( GFR) estimation/1.73 sq m using serum, plasma, or whole bOrdered By: Vlad Jay on 12-08-2024 GFR/1.73 sq M.predicted among non-blacks MDRD (S/P/Bld) [Vol rate/Area] 127 mL/min/{1.73_m2} >60 [facility] Comment on above: mL/min/1.73m2 CKD-EP I Creatinine Equation (2020) Gram stainOrdered By: Basilio Min on 12-08-2024 Microscopic observation Gram stain Nom (Unsp spec) [facility] H AND P Exam - Hospitaliston 12-08-2024 H&P Exam - Hospitalist [facility] Medical Records Department [address] [place] [address] H P Exam - Hospitalist 12/08/24 0933 MR#: [id number] Acct: [id number] Name: ORAL FLETCHER Rep #: [id number] : 2005 19 From: Gilbert Whittington MD PCP: Care Physician,No Primary Status:ADM IN Location: MS3 [id number] HPI - General General Date of Admission: 12/08/24 HPI Narrative ORAL FLETCHER, is a 19 F who presents to the hospital after a cat bite to her distal second finger on her right hand. She has some redness and swelling around that and had presented to the ER yesterday and was started on antibiotics and discharged home however she represented this morning with streaking up her right arm. She has some minimal tenderness but nothing major and distal joints and more proximal joints. Plastics was consulted recommended IV antibiotics as well as hand elevation and will do a wash on the inpatient side. She did receive Zosyn and vancomycin in the ER. She is afebrile without a leukocytosis [facility] Medical History Anxiety Encounter for screening for COVID-19 Home Medications ???Medication ???Instructions ???Recorded ???Last Taken ???Type vit no.95-ferrous 1 tab PO DAILY SUPPLEMENT 03/21/24 05/24/24 21:00 History fumarate 28 mg-folic acid 800 mcg 1 TAB tablet () pantoprazole 40 mg granules 40 mg PO PRN INDIGESTION 05/25/24 05/24/24 09:00 History delayed-release for susp in packet 40 mg (Protonix) sennosides 8.6 mg-docusate sodium 1 - 2 tab PO DAILY PRN PRN Unknown Rx 50 mg tablet (Stimulant Laxative Constipation #30 tabs Plus) hydrocodone-acetaminoph en 5-325mg 1 tab PO Q4H PRN pain 2 days #8 0 08/17/24 Unknown Rx 5mg-325mg tabs amoxicillin 875 mg-potassium 1 tab PO BID 10 days #20 tabs 11/17 07/13 Unknown Rx clavulanate 125 mg tablet oxycodone-acetaminophen 5 mg-325 1 tab PO Q6H PRN pain 3 days #12 0 12/07/24 Unknown Rx mg tablet (Percocet) tabs sertraline 25 mg tablet (Zoloft) 50 mg PO DAILY ANXIETY 12/08/24 Un known History Allergy/AdvReac Type Severity Reaction Status Date / [...] details: gym, sports seatbelt use: always ROS Constitutional Constitutional: Denies chills, fatigue, fever(s) or malaise Eyes Eyes: Denies blurry vision ENT HEENT: Denies headache(s) or nasal discharge Cardiovascular Cardiovascular: Denies chest pain, dyspnea on exertion or syncope Respiratory/Chest Respiratory/Chest: Denies cough, shortness of breath at rest or shortness of breath with exertion Gastrointestinal Gastrointestinal: Denies constipation, diarrhea, nausea or vomiting Genitourinary Genitourinary: Denies dysuria Integumentary Integumentary: Reports wounds Neurologic Neurologic: Denies focal weakness, numbness or tremor(s) Psychiatric Psychiatric: Denies anxiety or depression Vital Signs Vital Signs Vital Signs: 12/08/24 06:03 12/08/24 07:05 12/08/24 07:44 Temperature 98.6 F 98.9 F 98.6 F Temperature Source Oral Oral Pulse Rate 84 89 57 L Pulse Strength Respiratory Rate 16 18 20 H Respiratory Effort Respiratory Depth Respiratory Pattern Blood Pressure 120/87 H 115/78 112/87 H Blood Pressure Mean 98 90 95 Blood Pressure Source Blood Pressure Position Blood Pressure Location Pulse Ox 100 98 100 Oxygen Delivery Method Room Air Room Air 12/08/24 08:18 12/08/24 08:30 12/08/24 09:27 Temperature 98.2 F Temperature Source Oral Pulse Rate 63 Pulse Strength Normal (2+) Respiratory Rate 16 Respiratory Effort Normal Non-Labored Respiratory Depth Normal Respiratory Pattern Normal Blood Pressure 109/80 Blood Pressure Mean 89 Blood Pressure Source Monitor Blood Pressure Position Semi-Fowlers Blood Pressure Location Left Arm Pulse Ox 100 Oxygen Delivery Method Room Air Room Air Weight Weight: 132 lb 11.492 oz Body Mass Index (BMI) 22.8 Physical Exam Narrative General: Alert, Oriented x3, Cooperative, No apparent distress HEENT: Atraumatic, PERRLA, EOMI, Normocephalic Oral: Moist Mucosa Neck: Supple, No JVD Lungs: Cl (more content not included)... Normal [facility] Hand Min 3 Viewson Hand Min 3 Views [facility] Imaging Services [address] [place] [address] Hand Min 3 Views MR#: [id number] Acct: [id number] Name: ORAL FLETCHER Rep #: [id number] : 2005 F 19 From: Estela Dyson nd, MD PCP: Care Physician,No Primary Status: ADM IN Study: Hand Min 3 Views Date of Exam: 12/08/24 Exam# [id number] Ordering Dr: Basilio Min MD PROCEDURE: HAND MIN 3 VIEWS 12/08/2024 REASON FOR EXAM: LEFT HAND BITE TECHNIQUE: HAND MIN 3 VIEWS COMPARISON: None. FINDINGS: Bones: No acute fracture. No aggressive osseous lesions. Joints: Normal alignment. Joint spaces preserved. No arthropathic features. Soft tissues: No soft tissue swelling. No subcutaneous gas. Other: No radiopaque foreign body. RAD/Hand Min 3 Views IMPRESSION: NEGATIVE HAND SERIES Reading Location: [id number] CC: Dr. Basilio Min MD; No Primary Care Physician Environmental Program Manager: Signed Normal [facility] Hand Min 3 Views [facility] Imaging Services [address] [place], [place] [id number] Hand Min 3 Views MR#: [id number] Acct: [id number] Name: ORAL FLETCHER Rep #: [id number] : 2005 F 19 From: Timothy Blanchard MD PCP: Care Physician,No Primary Status: REG ER Study: Hand Min 3 Views Date of Exam: 12/08/24 Exam# [id number] Ordering Dr: Vlad Jay DO PROCEDURE: HAND MIN 3 VIEWS 12/08/2024 REASON FOR EXAM: CAT BITE TECHNIQUE: HAND MIN 3 VIEWS COMPARISON: None FINDINGS: There is no fracture or dislocation. There is no visible radiopaque foreign body or focal soft tissue abnormality. Mineralization is normal. There is no visible atherosclerosis. RAD/Hand Min 3 Views IMPRESSION: No fracture or dislocation is identified. Reading Location: [facility] CC: Vlad aJy DO; No Primary Care Physician Environmental Program Manager: Signed Normal [facility] Hematocrit Auto (Bld) [Volum e fraction]Ordered By: Vlad Jay on 12-08-2024 Hematocrit (Bld) [Volume fraction] 34.7 % Low 37-47 [facility] Hemoglobin measurementOrdere d By: Vlad Jay on 12-08-2024 Hemoglobin (Bld) [Mass/Vol] 12.2 g/dL 12.0-15.0 [facility] Immature granulocytes/100 WB C Auto (Bld)Ordered By: Vlad Jay on 12-08-2024 Immature granulocytes/100 WBC (Bld) 0.200 % 0.0-0.9 [facility] Comment on above: IG% - Immature Granu locytes (promyelocytes, myelocytes and metamyelocytes) > 1% indicates that a LEFT SHIFT is Present. Lactic Acidon 12-08-2024 Lactate [Moles/Vol] mmol/L Normal 0.0-2.0 [facility] Comment on above: Order Comment: Y Performed By: #### L 500.2500, L100.0100 #### [facility] Laboratory [address] [place] [address]. [place], [address] Lactic acid measurementOrder ed By: Vlad Jay on 12-08-2024 Lactate [Moles/Vol] mmol/L 0.0-2.0 [facility] MCV (mean corpuscular volume ) determinationOrdered By: Vlad Jay on 12-08-2024 MCV (RBC) [Entitic vol] 84.6 fL 81-99 [facility] Mean corpuscular hemoglobin (MCH) determinationOrdered By: Vlad Jay on 12-08-2024 MCH (RBC) [Entitic mass] 29.8 pg 27.0-32.0 [facility] Mean corpuscular hemoglobin concentration (MCHC) determinationOrdered By: Vlad Jay on 12-08-2024 MCHC (RBC) [Mass/Vol] 35.2 g/dL 32-36 [facility] Mean platelet volume determi nationOrdered By: Vlad Jay on 12-08-2024 Platelet mean volume (Bld) [Entitic vol] 11.2 fL 6.2-12.0 [facility] Monocyte percentageOrdered B y: Vlad Jay on 12-08-2024 Monocytes/100 WBC (Bld) 7.6 % 0-10 [facility] Neutrophil percentageOrdered By: Vlad Jay on 12-08-2024 Neutrophils/100 WBC (Bld) 49.2 % 47-70 [facility] Nucleated red blood cell per centageOrdered By: Vlad Jay on 12-08-2024 Nucleated RBC/100 WBC (Bld) [Ratio] 0 % 0-5 [facility] Platelet countOrdered By: Heaven Jay on 12-08-2024 Platelets (Bld) [#/Vol] 159 10*3/uL 150-450 [facility] Potassium measurement (mass/ volume)Ordered By: Vlad Jay on 12-08-2024 Potassium (Unsp spec) [Mass/Vol] 3.3 mmol/L 3.3-5.1 [facility] RBC Auto (Bld) [#/Vol]Ordere d By: Vlad Jay on 12-08-2024 RBC (Bld) [#/Vol] 4.10 10*6/uL Low 4.2-5.4 [facility] Serum creatinine measurement (mass/volume)Ordered By: Vlad Jay on 12-08-2024 Creatinine [Mass/Vol] 0.69 mg/dL Low 0.70-1.20 [facility] Serum glucose measurement (m ass/volume)Ordered By: Vlad Jay on 12-08-2024 Glucose [Mass/Vol] 100 mg/dL High 70-99 [facility] Serum or plasma C reactive p rotein measurement (mass/volume)Ordered By: Vlad Jay on 12-08-2024 CRP [Mass/Vol] mg/L 0.0-3.0 [facility] Serum or plasma calcium harriet urement (mass/volume)Ordered By: Vlad Jay on 12-08-2024 Calcium [Mass/Vol] 9.1 mg/dL 7.6-11.0 [facility] Serum or plasma urea nitroge n measurement (mass/volume)Ordered By: Vlad Jay on 12-08-2024 Urea nitrogen [Mass/Vol] 8 mg/dL 4-19 [facility] Sodium levelOrdered By: Ricci Jay on 12-08-2024 Sodium [Moles/Vol] 139 mmol/L 133-145 [facility] White blood cell (WBC) count Ordered By: Vlad Jay on 12-08-2024 WBC (Bld) [#/Vol] 4.9 10*3/uL 4.4-11.0 [facility] Emergency Department Summary on 12-07-2024 Emergency Department Summary [facility] Medical Records Department [address] [place] [address] Emergency Department Summary 12/07/24 MR#: [id number] Acct: [id number] Name: ORAL FLETCHER Rep #: [id number] : 2005 19 From: Vlad Jay DO PCP: Care Physician,No Primary Status:DEP ER Location: ED ADDENDUM by Vlad Jay DO on 12/08/24 at 0731 Please note it is the patient's right third digit that was bitten not the fourth as written in the note; that was a typo 12/08/24 0731 Cosigner Signature (if applicable): cc: No Primary Care Physician * Signed HPI History of Present Illness Chief Complaint: Bite Informant: patient Narrative Narrative: Patient is a 19-year-old female with past medical history of anxiety. She states that she was petting/working with a feral cat at the [employer] today. She states that it bit her in the right hand/finger as well as in the left hand. She states that this happened roughly 10 to 12 hours ago. She reports that she was able to rinse the area out and wash the hands. This time past however she noticed increased swelling and pain in the right fourth digit that was bitten and she has concern for developing infection and secondary to this comes in for evaluation [facility] Medical History Anxiety Encounter for [...] #8 0 08/17/24 Unknown Rx 5mg-325mg tabs amoxicillin 875 mg-potassium 1 tab PO BID 10 days #20 tabs 11/17 07/13 Unknown Rx clavulanate 125 mg tablet oxycodone-acetaminophen 5 mg-325 1 tab PO Q6H PRN pain 3 days #12 0 12/07/24 Unknown Rx mg tablet (Percocet) tabs [...] Musculoskeletal Musculoskeletal: Reports other Details: Positive right hand/finger pain Integumentary Reports other Details: Positive redness and swelling right hand/finger Neurologic Neurologic: Denies headache(s) Hematologic/Lymphatic Hematologic/Lymphatic: Denies easy bleeding or easy bruising EXAM Physical Exam Const Vital Signs: 12/07/24 21:09 12/07/24 23:15 Temperature 97.8 F 97.8 F Temperature Source Temporal Pulse Rate 96 96 Respiratory Rate 15 15 Blood Pressure 130/96 H 130/96 H Blood Pressure Mean 107 107 Pulse Ox 97 97 Oxygen Delivery Method Room Air Positive well nourished and well developed General Appearance ED: well developed HEENT HEENT Narrative: Normocephalic atraumatic Eyes PERRL and EOMs intact bilaterally Neck supple Resp normal respiratory effort and clear to auscultation bilaterally Cardio regular rate and regular rhythm Extremity Extremity Narrative: Bilateral upper extremities are neurovascularly intact There is a superficial scratch/bite along the palmar aspect of the left hand without surrounding redness swelling discharge or streaking There are 2 puncture wounds to the volar aspect of the right hand at the finger pad of the right fourth digit. There is surrounding redness and swelling at the site. There is no purulent discharge or lymphangitic streaking. The finger pad is still soft and compressible going against a felon. No nailbed involvement Remainder of the exam is normal Neuro (more content not included)... Normal [facility] CBC-Complete Blood Cnt No Di ffon 12-05-2024 Erythrocyte distribution width (RBC) [Ratio] 13.4 % Normal 11.6-14.6 [facility] Comment on above: Performed By: #### L 500.2500, L100.0100 #### [facility] Laboratory [address] [place], [place], [address] Hematocrit (Bld) [Volume fraction] 33.9 % Low 37-47 [facility] Comment on above: Performed By: #### L 500.2500, L100.0100 #### [facility] Laboratory [address] [place], [address] Hemoglobin (Bld) [Mass/Vol] 12.0 g/dL Normal 12.0-15.0 [facility] Comment on above: Performed By: #### L 500.2500, L100.0100 #### [facility] Laboratory [address] [place], [address] MCH (RBC) [Entitic mass] 29.4 pg Normal 27.0-32.0 [facility] Comment on above: Performed By: #### L 500.2500, L100.0100 #### [facility] [address] [place], [address] MCHC (RBC) [Mass/Vol] 35.4 g/dL Normal 32-36 [facility] Comment on above: Performed By: #### L 500.2500, L100.0100 #### [facility] [address] [place], [address] MCV (RBC) [Entitic vol] 83.1 fL Normal 81-99 [facility] Comment on above: Performed By: #### L 500.2500, L100.0100 #### [facility] [address] [place], [address] Platelet mean volume (Bld) [Entitic vol] 11.1 fL Normal 6.2-12.0 [facility] Comment on above: Performed By: #### L 500.2500, L100.0100 #### [facility] [address] [place], [address] Platelets (Bld) [#/Vol] 148 10*3/uL Low 150-450 [facility] Comment on above: Performed By: #### L 500.2500, L100.0100 #### [facility] [address] [place], [address] RBC (Bld) [#/Vol] 4.08 10*6/uL Low 4.2-5.4 [facility] Comment on above: Performed By: #### L 500.2500, L100.0100 #### [facility] [address] [place], [address] RDW SD 40.3 fl Normal 35.1-43.9 [facility] Comment on above: Performed By: #### L 500.2500, L100.0100 #### [facility] [address] [place], [address] WBC (Bld) [#/Vol] 3.3 10*3/uL Low 4.4-11.0 [facility] Comment on above: Performed By: #### L 500.2500, L100.0100 #### [facility] [address] [place], [address] Emergency Department Summary on 12-05-2024 Emergency Department Summary [facility] Medical Records Department [address] [place] [address] Emergency Department Summary 12/05/24 MR#: [id number] Acct: [id number] Name: ORAL FLETCHER Rep #: [id number] : 2005 19 From: Blane Alfred MD [...] Denies any dysuria. No discharge. No prior MANAGER LATIN surgery. No prior IUD history. Prior similar symptoms: No Recent Illness/Hospitalization : No PFSH [facility] Medical History Anxiety Encounter for screening for [...] (more content not included)... Normal [facility] Erythrocyte distribution wid th ratioOrdered By: Blane Alfred on 12-05-2024 Erythrocyte distribution width (RBC) [Ratio] 13.4 % 11.6-14.6 [facility] Erythrocyte distribution wid th standard deviationOrdered By: Blane Alfred on 12-05-2024 Erythrocyte distribution width (RBC) [Ratio] 40.3 fl 35.1-43.9 [facility] Hematocrit Auto (Bld) [Volum e fraction]Ordered By: Blane Alfred on 12-05-2024 Hematocrit (Bld) [Volume fraction] 33.9 % Low 37-47 [facility] Hemoglobin measurementOrdere d By: Blane Alfred on 12-05-2024 Hemoglobin (Bld) [Mass/Vol] 12.0 g/dL 12.0-15.0 [facility] MCV (mean corpuscular volume ) determinationOrdered By: Blane Alfred on 12-05-2024 MCV (RBC) [Entitic vol] 83.1 fL 81-99 [facility] Mean corpuscular hemoglobin (MCH) determinationOrdered By: Blane Alfred on 12-05-2024 MCH (RBC) [Entitic mass] 29.4 pg 27.0-32.0 [facility] Mean corpuscular hemoglobin concentration (MCHC) determinationOrdered By: Blane Alfred on 12-05-2024 MCHC (RBC) [Mass/Vol] 35.4 g/dL 32-36 [facility] Mean platelet volume determi nationOrdered By: Blane Alfred on 12-05-2024 Platelet mean volume (Bld) [Entitic vol] 11.1 fL 6.2-12.0 [facility] Platelet countOrdered By: Román Alfred on 12-05-2024 Platelets (Bld) [#/Vol] 148 10*3/uL Low 150-450 [facility] ,Serum,hCG Quali.on 12-05-2024 HCG, SERUM QUAL Negative Normal [facility] Comment on above: Performed By: #### L 500.2500, L100.0100 #### [facility] Laboratory [address] [place], [address] RBC Auto (Bld) [#/Vol]Ordere d By: Blane Alfred on 12-05-2024 RBC (Bld) [#/Vol] 4.08 10*6/uL Low 4.2-5.4 [facility] Serum beta-hCG test, qualita tiveOrdered By: Blane Alfred on 12-05-2024 Beta HCG ( test) Ql Negative [facility] White blood cell (WBC) count Ordered By: Blane Alfred on 12-05-2024 WBC (Bld) [#/Vol] 3.3 10*3/uL Low 4.4-11.0 [facility] CNOVon 11-15-2024 CNOV Office Visit (OBGYWM ) ORAL FLETCHER ([id number]) 3 F Date Time Provider Department 11/15/24 4:00 PM TRAN GAYTAN OBGYWAlexa During your visit today, we recorded the following information about you: Blood pressure Weight Last Period 108/76 59.4 kg 10/25/24 Tran Gaytan APRN.CN 11/15/2024 5:11 PM Signed Oral presents today [...] IUD source: office provided IUD lot #: [id number] Exp date: 12/15/2026 UNIVERSAL PROTOCOL / SAFETY [...] next menses for string check. Tran Gaytan APRN.KMM Roro Sanz MA 11/15/2024 3:59 PM Signed [...] contact the office. Referring Provider: TRAN GAYTAN [[id number]] Allergies As of Date: 11/15/2024 Noted Allergy Reaction EUCALYPTUS 05/05/2024 2 - Rash Comments: Chemical burn LACTASE 06/26/2020 14 - Other: See Comments Date Reviewed: 11/15/2024 Reviewed by: Roro Sanz MA - Fully Assessed Reason for Visit: Insertion Of IUD [291] Primary Visit Diagnosis:Encounter for IUD insertion [Z30.430] Order(s):UA DIP,URINE HCG (POC) [6626535] Order #: [id number] [] copper intrauterine device 380 square mm [...] normal first (more content not included)... Normal [facility] CNOVon 10-21-2024 CNOV Office Visit (WSTR ) ORAL FLETCHER ([id number]) 3 F Date Time Provider Department 10/21/24 5:15 PM [facility] During your visit today, we recorded the following information about you: Temperature Pulse Respiration Blood pressure 97 degrees 78/minute 18/minute 101/68 Weight Last Period 63 kg 10/10/24 Zhanna Hazel APRN.COMPUTER GRAPHICS ILLUSTRATOR 10/21/2024 5:54 PM Signed [facility] [...] history is provided by the patient. No sign language teacher was used. Cough Review of Systems Constitutional: [...] Take 1 tablet by mouth once daily. Zexlkalk-[id number]-Lnv-Fe-[id number] tab Take 1 tablet by mouth once [...] Unremarkable. IMPRESSION IMPRESSION: No acute radiographic abnormality. Environmental Program Manager: CHAPARRITA Transcribe Date/Time: Oct 21 2024 5:46P [...] Patient agreeable to care plan. Zhanna Hazel APRN.[facility] Procedures Allergies As of Date: 10/21/2024 Noted Allergy Reaction EUCALYPTUS 05/05/2024 2 - Rash Comments: Chemical burn LACTASE 06/26/2020 14 - Other: See Comments Date Reviewed: 10/21/2024 Reviewed by: Jessy Alicea LPN - Fully Assessed Reason for Visit: Cough [28] Cmt: Chest congestion, nasal congestion, SOB, increased mucous, runny (more content not included)... Normal [facility] XR CHEST 2V FRONTAL/LATon XR CHEST [...] tissues: Unremarkable. IMPRESSION: No acute radiographic abnormality. Environmental Program Manager: PSCB Transcribe Date/Time: Oct 21 2024 5:46P Dictated by : DANAE BAR MD This examination was interpreted and the report reviewed and electronically signed by: DANAE BAR MD on Oct 21 2024 5:46PM EST [id number] Normal [facility] XR Chest PA and Lateralon IMPRESSION: No acute radiographic abnormality. Environmental Program Manager: PSCB Transcribe Date/Time: Oct 21 2024 5:46P [...] tissues: Unremarkable. DIVISION OF RADIOLOGY Provider, [facility] - 10/21/2024 * * *Final Report* [...] Unremarkable. IMPRESSION IMPRESSION: No acute radiographic abnormality. Environmental Program Manager: PSCIsa Transcribe Date/Time: Oct 21 2024 5:46P Dictated by : DANAE BAR MD This examination was interpreted and the report reviewed and electronically signed by: DANAE BAR MD on Oct 21 2024 5:46PM EST [facility] Radiology Study observation (narrative) [facility] XR Chest PA and LateralOrder ed By: Ccf Provider on 10-21-2024 [facility] CNOVon 09-17-2024 CNOV Office Visit (PSYLST ) ORAL FLETCHER ([id number]) 3 F Date Time Provider Department 09/17/24 10:00 AM NATALIIA VAIL PSYLST During your visit today, we recorded the following information about you: Nataliia Vail LISW 09/17/2024 11:06 AM Signed GENERAL PSYCHOLOGY Session #: 1 (session count starts after PSYL NEW EVAL visit) Session conducted by phone due to poor Zoom receptionist. She was unable to link to [employer] SUBJECTIVE: patient says she is doing "ok", but describes a lot of OCD behaviors [...] had occasional crying spells. States her is "good" and is sleeping through the night. Partner [...] MODALITIES: Solution Focused Psychotherapy PROGRESS TO DATE: Jail Progress: Condition at intake Short Term Condition: Progress GOALS/OBJECTIVES/INTERV ENTIONS: Treatment plan: discussed asking OBGYN to send last refill to a different pharmacy Recommended M-IOP and she is interested Consult to Psychiatry placed Phone numbers were sent via [employer] She was advised of my BERT, though I will be available to her for the next month. Suicide protocol sent via [employer] Approximately 45 minutes were spent with the patient doing therapy. RADHA Fuentes Referring Provider: NATALIIA VAIL [[id number]] Allergies As of Date: 09/17/2024 Noted Allergy Reaction EUCALYPTUS 05/05/2024 2 - Rash Comments: Chemical burn LACTASE 06/26/2020 14 - Other: See Comments Date Reviewed: 07/28/2024 Reviewed by: Deloris Peña LPN - Fully Assessed Primary Visit Diagnosis:MDD (major depressive disorder), recurrent episode, moderate (HCC) [F33.1] Other Visit Diagnoses:Mixed obsessional thoughts and acts [F42.2] Panic disorder without agoraphobia [F41.0] Order(s):PROVIDER ORDERED FOLLOW UP [[id number]] Order #: [id number]: 1 Prescriptions as of 09/17/2024 - sertraline (ZOLOFT) 25 mg tablet Take 1 tablet by mouth once daily. - Zmkwoxtr-Tp-Owr-Fe-FA tab Take 1 tablet by mouth once [...] to general medical conditi*06/24/2024 Encounter Status:Closed by YAREDHOLLYNATALIIA on 09/17/24 Normal [facility] Abdomen/Pelvis W IV Cont ONL Yon 08-17-2024 Abdomen/Pelvis W IV Cont ONLY [facility] Imaging Services [address] [place], [place] [address] Abdomen/Pelvis W IV Cont ONLY MR#: [id number] Acct: [id number] Name: ORAL FLETCHER Rep #: [id number] : 2005 F 19 From: Basilio Jasso MD PCP: Care Physician,No Primary Status: REG ER Study: Abdomen/Pelvis W IV Cont ONLY Date of Exam: Exam# [id number] Ordering Dr: Blane Alfred MD PROCEDURE: ABDOMEN/PELVIS [...] stranding or urothelial thickening seen. Reading Location: [facility] CC: Dr. Blane Alfred MD; No Primary Care Physician Environmental Program Manager: Signed Normal [facility] Absolute lymphocyte countOrd ered By: Blane lAfred on 08-17-2024 Lymphocytes Auto (Unsp spec) [#/Vol] 2.97 10*3/uL 0.83-4.51 [facility] Absolute neutrophil countOrd ered By: Blane Alfred on 08-17-2024 Neutrophils (Bld) [#/Vol] 2.9 10*3/uL 2.0-7.7 [facility] Anion gap in Serum or Plasma Ordered By: Blane Alfred on 08-17-2024 Anion gap [Moles/Vol] 14 mmol/L 5-15 [facility] Automated lymphocyte count a s percentage of total leukocytesOrdered By: Blane Alfred on 08-17-2024 Lymphocytes/100 WBC Auto (Unsp spec) 45.9 % High 19-41 [facility] BUN/creatinine ratioOrdered By: Blane Alfred on 08-17-2024 Urea nitrogen/Creatinine [Mass ratio] 16.6 mg/mg 10-20 [facility] Basophil percentageOrdered B y: Blane Alfred on 08-17-2024 Basophils/100 WBC (Bld) 0.3 % 0-1 [facility] Beta HCG ( test) Ql Ordered By: Blane Alfred on 08-17-2024 Serum Test, Qualitative Negative [facility] Bilirubin Test strip Ql (U)O rdered By: Blane Alfred on 08-17-2024 Bilirubin Ql (U) Negative Negative [facility] Bilirubin, totalOrdered By: Blane Alfred on 08-17-2024 Bilirubin [Mass/Vol] 0.72 mg/dL 0.00-1.30 [facility] CBC W/Diff, Automatedon 04- Absolute Lymph 2.97 X10 3/uL Normal 0.83-4.51 [facility] Comment on above: Performed By: #### L 500.4050, L100.0100, L501.2450, L700.6800 #### [facility] [address] [place], [address] Absolute Neut 2.9 X10 3/uL Normal 2.0-7.7 [facility] Comment on above: Performed By: #### L 500.4050, L100.0100, L501.2450, L700.6800 #### [facility] [address] [place], [address] Basophils/100 WBC (Bld) 0.3 % Normal 0-1 [facility] Comment on above: Performed By: #### L 500.4050, L100.0100, L501.2450, L700.6800 #### [facility] [address] [place], [address] Eosinophils/100 WBC (Bld) 1.7 % Normal 0-5 [facility] Comment on above: Performed By: #### L 500.4050, L100.0100, L501.2450, L700.6800 #### [facility] [address] [place], [address] Erythrocyte distribution width (RBC) [Ratio] 12.5 % Normal 11.6-14.6 [facility] Comment on above: Performed By: #### L 500.4050, L100.0100, L501.2450, L700.6800 #### [facility] [address] [place], [address] Hematocrit (Bld) [Volume fraction] 36.6 % Low 37-47 [facility] Comment on above: Performed By: #### L 500.4050, L100.0100, L501.2450, L700.6800 #### [facility] [address] [place], [address] Hemoglobin (Bld) [Mass/Vol] 12.9 g/dL Normal 12.0-15.0 [facility] Comment on above: Performed By: #### L 500.4050, L100.0100, L501.2450, L700.6800 #### [facility] [address] [place], [address] IG% 0.300 Normal 0.0-0.9 [facility] Comment on above: Result Comment: IG% - Immature Granulocytes (promyelocytes, myelocytes and metamyelocytes) > 1% indicates that a LEFT SHIFT is Present. Performed By: #### L 500.4050, L100.0100, L501.2450, L700.6800 #### [facility] [address] [place], [address] Lymphocytes/100 WBC (Bld) 45.9 % High 19-41 [facility] Comment on above: Performed By: #### L 500.4050, L100.0100, L501.2450, L700.6800 #### [facility] [address] [place], [address] MCH (RBC) [Entitic mass] 28.5 pg Normal 27.0-32.0 [facility] Comment on above: Performed By: #### L 500.4050, L100.0100, L501.2450, L700.6800 #### [facility] [address] [place], [address] MCHC (RBC) [Mass/Vol] 35.2 g/dL Normal 32-36 [facility] Comment on above: Performed By: #### L 500.4050, L100.0100, L501.2450, L700.6800 #### [facility] [address] [place], [address] MCV (RBC) [Entitic vol] 81.0 fL Normal 81-99 [facility] Comment on above: Performed By: #### L 500.4050, L100.0100, L501.2450, L700.6800 #### [facility] [address] [place], [address] Monocytes/100 WBC (Bld) 6.6 % Normal 0-10 [facility] Comment on above: Performed By: #### L 500.4050, L100.0100, L501.2450, L700.6800 #### [facility] [address] [place], [address] Neutrophils/100 WBC (Bld) 45.2 % Low 47-70 [facility] Comment on above: Performed By: #### L 500.4050, L100.0100, L501.2450, L700.6800 #### [facility] [address] [place], [address] Nucleated RBC (Bld) [#/Vol] 0 10*3/uL Normal 0-5 [facility] Comment on above: Performed By: #### L 500.4050, L100.0100, L501.2450, L700.6800 #### [facility] [address] [place], [address] Platelet mean volume (Bld) [Entitic vol] 11.4 fL Normal 6.2-12.0 [facility] Comment on above: Performed By: #### L 500.4050, L100.0100, L501.2450, L700.6800 #### [facility] [address] [place], [address] Platelets (Bld) [#/Vol] 186 10*3/uL Normal 150-450 [facility] Comment on above: Performed By: #### L 500.4050, L100.0100, L501.2450, L700.6800 #### [facility] [address] [place], [address] RBC (Bld) [#/Vol] 4.52 10*6/uL Normal 4.2-5.4 [facility] Comment on above: Performed By: #### L 500.4050, L100.0100, L501.2450, L700.6800 #### [facility] [address] [place], [address] RDW SD 36.1 fl Normal 35.1-43.9 [facility] Comment on above: Performed By: #### L 500.4050, L100.0100, L501.2450, L700.6800 #### [facility] [address] [place], [address] WBC (Bld) [#/Vol] 6.5 10*3/uL Normal 4.4-11.0 [facility] Comment on above: Performed By: #### L 500.4050, L100.0100, L501.2450, L700.6800 #### [facility] [address] [place], [address] Carbon dioxide, total [Moles /volume] in Central venous bloodOrdered By: Blane Alfred on 08-17-2024 CO2 [Moles/Vol] 22.0 mmol/L 21.0-32.0 [facility] Chloride assayOrdered By: Román Alfred on 08-17-2024 Chloride [Moles/Vol] 104 mmol/L 98-108 [facility] Comprehensive Metabolic Prof ilon 08-17-2024 Albumin [Mass/Vol] 4.6 g/dL Normal 3.5-5.0 [facility] Comment on above: Performed By: #### L 500.4050, L100.0100, L501.2450, L700.6800 #### [facility] [address] [place], [address] Albumin/Globulin [Mass ratio] 1.7 {ratio} Normal 0.9-2.4 [facility] Comment on above: Performed By: #### L 500.4050, L100.0100, L501.2450, L700.6800 #### [facility] [address] [place], [address] ALK PHOS 57 U/L Normal 35-104 [facility] Comment on above: Performed By: #### L 500.4050, L100.0100, L501.2450, L700.6800 #### [facility] [address] [place], [address] ALT [Catalytic activity/Vol] 39 U/L High <=34 [facility] Comment on above: Performed By: #### L 500.4050, L100.0100, L501.2450, L700.6800 #### [facility] [address] [place], [address] AST [Catalytic activity/Vol] 29 U/L Normal <=31 [facility] Comment on above: Performed By: #### L 500.4050, L100.0100, L501.2450, L700.6800 #### [facility] [address] [place], [address] Bilirubin [Mass/Vol] 0.72 mg/dL Normal 0.00-1.30 [facility] Comment on above: Performed By: #### L 500.4050, L100.0100, L501.2450, L700.6800 #### [facility] [address] [place], [address] BUN/CRE 16.6 RATIO Normal 10-20 [facility] Comment on above: Performed By: #### L 500.4050, L100.0100, L501.2450, L700.6800 #### [facility] [address] [place], [address] Calcium [Mass/Vol] 9.2 mg/dL Normal 7.6-11.0 [facility] Comment on above: Performed By: #### L 500.4050, L100.0100, L501.2450, L700.6800 #### [facility] [address] [place], [address] Chloride [Moles/Vol] 104 mmol/L Normal 98-108 [facility] Comment on above: Performed By: #### L 500.4050, L100.0100, L501.2450, L700.6800 #### [facility] [address] [place], [address] CO2 [Moles/Vol] 22.0 mmol/L Normal 21.0-32.0 [facility] Comment on above: Performed By: #### L 500.4050, L100.0100, L501.2450, L700.6800 #### [facility] [address] [place], [address] Creatinine [Mass/Vol] 0.99 mg/dL Normal 0.70-1.20 [facility] Comment on above: Performed By: #### L 500.4050, L100.0100, L501.2450, L700.6800 #### [facility] [address] [place], [address] ECRCL 88.92 ml/min Normal 50-250 [facility] Comment on above: Performed By: #### L 500.4050, L100.0100, L501.2450, L700.6800 #### [facility] [address] [place], [address] GAP 14 Normal 5-15 [facility] Comment on above: Performed By: #### L 500.4050, L100.0100, L501.2450, L700.6800 #### [facility] [address] [place], [address] GFR/1.73 sq M.predicted among non-blacks MDRD (S/P/Bld) [Vol rate/Area] 84 mL/min/{1.73_m2} Normal >60 [facility] Comment on above: Result Comment: mL/m in/1.73m2 CKD-EPI Creatinine Equation (2020) Performed By: #### L 500.4050, L100.0100, L501.2450, L700.6800 #### [facility] [address] [place], [address] Globulin (S) [Mass/Vol] 2.8 g/dL Normal 2.2-4.2 [facility] Comment on above: Performed By: #### L 500.4050, L100.0100, L501.2450, L700.6800 #### [facility] [address] [place], [address] Glucose [Mass/Vol] 122 mg/dL High 70-99 [facility] Comment on above: Performed By: #### L 500.4050, L100.0100, L501.2450, L700.6800 #### [facility] [address] [place], [address] Potassium [Moles/Vol] 3.4 mmol/L Normal 3.3-5.1 [facility] Comment on above: Performed By: #### L 500.4050, L100.0100, L501.2450, L700.6800 #### [facility] [address] [place], [address] Sodium [Moles/Vol] 140 mmol/L Normal 133-145 [facility] Comment on above: Performed By: #### L 500.4050, L100.0100, L501.2450, L700.6800 #### [facility] [address] [place], [address] T PROT 7.3 g/dL Normal 5.9-8.4 [facility] Comment on above: Performed By: #### L 500.4050, L100.0100, L501.2450, L700.6800 #### [facility] [address] [place], [address] Urea nitrogen [Mass/Vol] 16 mg/dL Normal 4-19 [facility] Comment on above: Performed By: #### L 500.4050, L100.0100, L501.2450, L700.6800 #### [facility] [address] [place], [address] Emergency Department Summary on 08-17-2024 Emergency Department Summary [facility] Medical Records Department [address] [place] [address] Emergency Department Summary 08/17/24 MR#: [id number] Acct: [id number] Name: ORAL FLETCHER Rep #: [id number] : 2005 19 From: Blane Alfred MD [...] symptoms: Yes Recent Illness/Hospitalization : No PFSH [facility] Medical History Anxiety Encounter for screening for [...] (more content not included)... Normal [facility] Eosinophil percentageOrdered By: Blane Alfred on 08-17-2024 Eosinophils/100 WBC (Bld) 1.7 % 0-5 [facility] Epithelial cells.squamous LM Ql (Urine sed)Ordered By: Blane Alfred on 08-17-2024 Epithelial cells.squamous LM.HPF (Urine sed) [#/Area] 0 /[HPF] 5-10 [facility] Erythrocyte distribution wid th ratioOrdered By: Blane Alfred on 08-17-2024 Erythrocyte distribution width (RBC) [Ratio] 12.5 % 11.6-14.6 [facility] Erythrocyte distribution wid th standard deviationOrdered By: Blane Alfred on 08-17-2024 Erythrocyte distribution width (RBC) [Entitic vol] 36.1 fL 35.1-43.9 [facility] Erythrocyte distribution width (RBC) [Ratio] 36.1 fl 35.1-43.9 [facility] Estimation of creatinine rey aranceOrdered By: Blane Alfred on 08-17-2024 Estimated Creatinine Clearance Calc 88.92 ml/min 50-250 [facility] GFR/1.73 sq M.predicted kris g non-blacks MDRD (S/P/Bld) [Vol rate/Area]Ordered By: Blane Alfred on 08-17-2024 Estimated GFR (MDRD) Non-Af Amer 84 >60 [facility] Comment on above: mL/min/1.73m2 CKD-EP I Creatinine Equation (2020) Glomerular filtration rate ( GFR) estimation/1.73 sq m using serum, plasma, or whole bOrdered By: Blane Alfred on 08-17-2024 GFR/1.73 sq M.predicted among non-blacks MDRD (S/P/Bld) [Vol rate/Area] 84 mL/min/{1.73_m2} >60 [facility] Comment on above: mL/min/1.73m2 CKD-EP I Creatinine Equation (2020) Glucose Ql (U)Ordered By: Román Alfred on 08-17-2024 Urine Glucose (UA) Normal mg/dl Normal [facility] Hematocrit Auto (Bld) [Volum e fraction]Ordered By: Blane Alfred on 08-17-2024 Hematocrit (Bld) [Volume fraction] 36.6 % Low 37-47 [facility] Hemoglobin measurementOrdere d By: Blane Alfred on 08-17-2024 Hemoglobin (Bld) [Mass/Vol] 12.9 g/dL 12.0-15.0 [facility] Immature granulocytes/100 WB C Auto (Bld)Ordered By: Blane Alfred on 08-17-2024 Immature granulocytes/100 WBC (Bld) 0.300 % 0.0-0.9 [facility] Comment on above: IG% - Immature Granu locytes (promyelocytes, myelocytes and metamyelocytes) > 1% indicates that a LEFT SHIFT is Present. Ketones Test strip Ql (U)Ord ered By: Blane Alfred on 08-17-2024 Ketones Ql (U) 15 mg/dl High Negative [facility] Laboratory - Chemistry and C hemistry - challengeOrdered By: Blane Alfred on 08-17-2024 AST [Catalytic activity/Vol] 29 U/L <32 [facility] Lipaseon 08-17-2024 Lipase [Catalytic activity/Vol] 22 U/L Normal 13-75 [facility] Comment on above: Result Comment: Riccardo martin note: LIPASE revised reference range effective 22. New Lipase methodology. Expected to produce lower values than the previous assay method. NEW Reference Range: 13 - 75 U/L Performed By: #### L 500.4050, L100.0100, L501.2450, L700.6800 #### [facility] [address] [place], [address] Lipase measurementOrdered By : Blane Alfred on 08-17-2024 Lipase [Catalytic activity/Vol] 22 U/L 13-75 [facility] Comment on above: Please note:LIPASE r evised reference range effective 22. New Lipase methodology. Expected to produce lower values than the previous assay method. NEW Reference Range: 13 - 75 U/L Lymphocytes Auto (Unsp spec) [#/Vol]Ordered By: Blane Alfred on 08-17-2024 Lymphocytes (Bld) [#/Vol] 2.97 10*3/uL 0.83-4.51 [facility] Lymphocytes/100 WBC Auto (Un sp spec)Ordered By: Blane Alfred on 08-17-2024 Lymphocytes/100 WBC (Bld) 45.9 % High 19-41 [facility] MCV (mean corpuscular volume ) determinationOrdered By: Blane Alfred on 08-17-2024 MCV (RBC) [Entitic vol] 81.0 fL 81-99 [facility] Mean corpuscular hemoglobin (MCH) determinationOrdered By: Blane Alfred on 08-17-2024 MCH (RBC) [Entitic mass] 28.5 pg 27.0-32.0 [facility] Mean corpuscular hemoglobin concentration (MCHC) determinationOrdered By: Blane Alfred on 08-17-2024 MCHC (RBC) [Mass/Vol] 35.2 g/dL 32-36 [facility] Mean platelet volume determi nationOrdered By: Blane Alfred on 08-17-2024 Platelet mean volume (Bld) [Entitic vol] 11.4 fL 6.2-12.0 [facility] Microscopic analysis of urin e for red blood cells (RBC)Ordered By: Blane Alfred on 08-17-2024 Microscopic analysis of urine for red blood cells (RBC) > 100 SEEN /hpf 0-5 [facility] Urine RBC > 100 SEEN /hpf 0-5 [facility] Monocyte percentageOrdered B y: Blane Alfred on 08-17-2024 Monocytes/100 WBC (Bld) 6.6 % 0-10 [facility] Mucus LM Ql (Urine sed)Order ed By: Blane Alfred on 08-17-2024 Mucus Ql (Urine sed) RARE /hpf [facility] Neutrophil percentageOrdered By: Blane Alfred on 08-17-2024 Neutrophils/100 WBC (Bld) 45.2 % Low 47-70 [facility] Nitrite Test strip Ql (U)Ord ered By: Blane Alfred on 08-17-2024 Nitrite Ql (U) Negative Negative [facility] Nucleated red blood cell per centageOrdered By: Blane Alfred on 08-17-2024 Nucleated RBC/100 WBC (Bld) [Ratio] 0 % 0-5 [facility] Platelet countOrdered By: Román Alfred on 08-17-2024 Platelets (Bld) [#/Vol] 186 10*3/uL 150-450 [facility] Potassium (Unsp spec) [Mass/ Vol]Ordered By: Blane Alfred on 08-17-2024 Potassium [Moles/Vol] 3.4 mmol/L 3.3-5.1 [facility] Potassium measurement (mass/ volume)Ordered By: Blane Alfred on 08-17-2024 Potassium (Unsp spec) [Mass/Vol] 3.4 mmol/L 3.3-5.1 [facility] ,Serum,hCG Quali.on 08-17-2024 HCG, SERUM QUAL Negative Normal [facility] Comment on above: Performed By: #### L 500.4050, L100.0100, L501.2450, L700.0350 #### [facility] [address] [place], [address] Protein Test strip Ql (U)Ord ered By: Blane Alfred on 08-17-2024 Protein Ql (U) 30 mg/dl High Negative [facility] [facility] RBC Auto (Bld) [#/Vol]Ordere d By: Blane Alfred on 08-17-2024 RBC (Bld) [#/Vol] 4.52 10*6/uL 4.2-5.4 [facility] Serum beta-hCG test, qualita tiveOrdered By: Blane Alfred on 08-17-2024 Beta HCG ( test) Ql Negative [facility] Serum creatinine measurement (mass/volume)Ordered By: Blane Alfred on 08-17-2024 Creatinine [Mass/Vol] 0.99 mg/dL 0.70-1.20 [facility] Serum globulin measurementOr dered By: Blane Alfred on 08-17-2024 Globulin (S) [Mass/Vol] 2.8 g/dL 2.2-4.2 [facility] Serum glucose measurement (m ass/volume)Ordered By: Blane Alfred on 08-17-2024 Glucose [Mass/Vol] 122 mg/dL High 70-99 [facility] Serum or plasma alanine milton otransferase (ALT) measurementOrdered By: Blane Alfred on 08-17-2024 ALT [Catalytic activity/Vol] 39 U/L High <35 [facility] Serum or plasma albumin harriet urement (mass/volume)Ordered By: Blane Alfred on 08-17-2024 Albumin [Mass/Vol] 4.6 g/dL 3.5-5.0 [facility] Serum or plasma albumin/glob ulin mass ratioOrdered By: Blaen Alfred on 08-17-2024 Albumin/Globulin [Mass ratio] 1.7 {ratio} 0.9-2.4 [facility] Serum or plasma alkaline errol sphatase measurementOrdered By: Blane Alfred on 08-17-2024 ALP [Catalytic activity/Vol] 57 U/L 35-104 [facility] Serum or plasma calcium harriet urement (mass/volume)Ordered By: Blane Alfred on 08-17-2024 Calcium [Mass/Vol] 9.2 mg/dL 7.6-11.0 [facility] Serum or plasma urea nitroge n measurement (mass/volume)Ordered By: Blane Alfred on 08-17-2024 Urea nitrogen [Mass/Vol] 16 mg/dL 4-19 [facility] Sodium levelOrdered By: Blane Alfred on 08-17-2024 Sodium [Moles/Vol] 140 mmol/L 133-145 [facility] Squamous epithelial cells de tection in urine sediment by light microscopyOrdered By: Blane Alfred on 08-17-2024 Epithelial cells.squamous LM Ql (Urine sed) 0-5 SEEN /hpf 5-10 [facility] Total proteinOrdered By: Joshua Alfred on 08-17-2024 Protein [Mass/Vol] 7.3 g/dL 5.9-8.4 [facility] Urinalysis, Completeon 08-17 BACTERIA 1+ /hpf Normal None Seen [facility] Comment on above: Order Comment: CLEAN CATCH Performed By: #### L 400.0001 #### [facility] [address] [place], [address] EPI,SQUAMOUS 0-5 SEEN Normal 5-10 [facility] Comment on above: Order Comment: CLEAN CATCH Performed By: #### L 400.0001 #### [facility] [address] [place], [address] Mucus Ql (Urine sed) RARE Normal [facility] Comment on above: Order Comment: CLEAN CATCH Performed By: #### L 400.0001 #### [facility] [address] [place], [address] RBC > 100 SEEN Normal 0-5 [facility] Comment on above: Order Comment: CLEAN CATCH Performed By: #### L 400.0001 #### [facility] [address] [place], [address] BILIRUBIN URINE Negative Normal Negative [facility] Comment on above: Order Comment: CLEAN CATCH Performed By: #### L 400.0001 #### [facility] [address] [place], [address] Clarity (U) Clear Normal Clear [facility] Comment on above: Order Comment: CLEAN CATCH Performed By: #### L 400.0001 #### [facility] [address] [place], [address] Color (U) Yellow Normal Yellow [facility] Comment on above: Order Comment: CLEAN CATCH Performed By: #### L 400.0001 #### [facility] [address] [place], [address] GLUCOSE, UR Normal Normal Normal [facility] Comment on above: Order Comment: CLEAN CATCH Performed By: #### L 400.0001 #### [facility] [address] [place], [address] KETONE UR 15 mg/dl Abnormal Negative [facility] Comment on above: Order Comment: CLEAN CATCH Performed By: #### L 400.0001 #### [facility] [address] [place], [address] LEUK ESTERASE 25 /ul Abnormal Negative [facility] Comment on above: Order Comment: CLEAN CATCH Performed By: #### L 400.0001 #### [facility] [address] [place], [address] Nitrite Ql (U) Negative Normal Negative [facility] Comment on above: Order Comment: CLEAN CATCH Performed By: #### L 400.0001 #### [facility] [address] [place], [address] OCCULT BLOOD-UR 150 /ul Abnormal Negative [facility] Comment on above: Order Comment: CLEAN CATCH Performed By: #### L 400.0001 #### [facility] [address] [place], [address] pH UR 7.0 Normal 5.0 - 8.0 [facility] Comment on above: Order Comment: CLEAN CATCH Performed By: #### L 400.0001 #### [facility] [address] [place], [address] PROT DIPSTX 30 mg/dl Abnormal Negative [facility] Comment on above: Order Comment: CLEAN CATCH Performed By: #### L 400.0001 #### [facility] [address] [place], [place], [id number] SP.GR. DIPSTX 1.010 Normal 1.002-1.030 [facility] Comment on above: Order Comment: CLEAN CATCH Performed By: #### L 400.0001 #### [facility] [address] [place], [place], [id number] UROBILI 1 mg/dl Abnormal Normal [facility] Comment on above: Order Comment: CLEAN CATCH Performed By: #### L 400.0001 #### [facility] [address] [place], [place], [id number] WBC 0 SEEN Normal 0-5 [facility] Comment on above: Order Comment: CLEAN CATCH Performed By: #### L 400.0001 #### [facility] [address] [place], [place], [id number] Urine blood detectionOrdered By: Blane Alfred on 08-17-2024 Urine Occult Blood 150 /ul High Negative [facility] Urine clarityOrdered By: Joshua Alfred on 08-17-2024 Clarity (U) Clear Clear [facility] Urine color determinationOrd ered By: Blane Alfred on 08-17-2024 Color (U) Yellow Yellow [facility] Urine glucose detectionOrder ed By: Blane Alfred on 08-17-2024 Glucose Ql (U) Normal mg/dl Normal [facility] Urine leukocyte esterase det ection by dipstickOrdered By: Blane Alfred on 08-17-2024 Leukocyte esterase Test strip Ql (U) 25 /ul High Negative [facility] Urine pHOrdered By: Blane Hickman ght on 08-17-2024 pH (U) 7.0 [pH] 5.0 - 8.0 [facility] Urine sediment bacteria coun t by microscopy (number/high power field)Ordered By: Blane Alfred on 08-17-2024 Bacteria LM.HPF (Urine sed) [#/Area] 1 /[HPF] None Seen [facility] Urine specific gravity measu rementOrdered By: Blane Alfred on 08-17-2024 Specific gravity (U) [Rel density] 1.010 1.002-1.030 [facility] Urine urobilinogen measureme ntOrdered By: Blane Alfred on 08-17-2024 Urobilinogen Ql (U) 1 mg/dl High Normal [facility] Urobilinogen Ql (U)Ordered B y: Blane Alfred on 08-17-2024 Urobilinogen (U) [Mass/Vol] 1 mg/dL High Normal [facility] White blood cell (WBC) count Ordered By: Blane Alfred on 08-17-2024 WBC (Bld) [#/Vol] 6.5 10*3/uL 4.4-11.0 [facility] White blood cell countOrdere d By: Blane Alfred on 08-17-2024 Urine WBC 0 SEEN /hpf 0-5 [facility] White blood cell count 0 SEEN /hpf 0-[address] [facility] CNPNon 08-04-2024 CNPN Telephone (PSYLST) ORAL FLETCHER ([id number]) 3 F Date Time Provider Department 08/04/24 [...] 1 tablet by mouth once daily. - Pemsvety-Mi-Mly-Fe-FA tab Take 1 tablet by mouth once [...] Status:Closed by BRENNA ODELL on 08/04/24 Normal [facility] CNOVon 06-24-2024 CNOV Office Visit (PSYLST ) ORAL FLETCHER ([id number]) 3 F Date Time Provider Department 06/24/24 [...] agreement to participate Originating site for client [place] Originating site for provider [place] Site appropriate for privacy No equipment failures, provided psychotherapy I have communicated my name and active licensure. The patient's identity and physical location were verified at the time of this visit. Either the patient or their legal communications representative has been informed of the risks [...] a copy of the consent form on [employer]. The patient consented to a virtual visit and their location was confirmed. PRESENT: Child AGE: [age] year old RACE: White MARITAL STATUS: Living with significant other CHILDREN: Yes, son age one month Westley. 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 PAST MEDICAL HISTORY Diagnosis Date Anemia Depression/anxiety Ganglion cyst of wrist, left Irregular menses Low-lying placenta 01/26/2024 04/21/24- Resolved. Tran Gaytan APRN.CNM Repeat growth US at 32 weeks. Anitra Caldwell APRN.CNM PAST SURGICAL HISTORY Procedure Laterality Date DENTAL SURGERY HX 2015 ORTHOPEDICS SURGERY HX knee torn meniscus WRIST Left cyst on left wrist Current Outpatient Medications Medication Sig Zywbnqqy-Kr-Sug-Fe-FA tab Take 1 tablet by mouth once daily. With folic acid and DHA as covered by insurance. No current facility-administered medications for this visit. ALLERGIES Allergen Reactions Eucalyptus Rash Chemical burn Lactase Other: See Comments REFERRAL SOURCE: Reny Gaytan APRN CHIEF COMPLAINT: "I have been crazy overwhlmed, stressed out and worried over eveything." HPI: had been told in he past that she has "high anxiety", prior to . Has exacerbated since delivering [...] baby will become ill. Mood has been "up and down, bipolar"; will be ok and then immediately get tearful. Has been irritable and snappy with BF, then breaks down in tears. Pregancy went well, had a low placenta, and she didn't like being , which was not planned. She had plans to adopt. She is happy now that her son is here. Delivery went well, though she was "terrifed", only labored for 34 minutes. Sleep: is [...] find her. (more content not included)... [facility]OBGYWM[facility] ORAL FLETCHER ([id number]) 3 F Date Time Provider Department 06/24/24 TRAN GAYTAN OBROCHELLE During your visit today, we recorded the following information about you: Kayla Miller RN 06/24/2024 11:25 AM Signed Tran Gaytan APRN.CNM (Rnfa) [employer] Patient contacted by social work for women's behavioral health referral. Received this message: I just did a psych eval on Oral and I told her to contact you [facility] so you could possibly start her on [...] with me scheduled. Tomorrow is fine! Kayla Miller, ADRIEN 06/24/2024 11:25 AM Signed Left message [...] Appointment [186] Prescriptions as of 06/24/2024 - Kyturgja-Ax-Uhu-Fe-FA tab Take 1 tablet by mouth once [...] Encounter Status:Closed by AMELIA MARTINEZ on 06/24/24 [facility] 06-17-2024 CNPN Telephone (PSYLMN) ORAL FLETCHER ([id number]) 3 F Date Time Provider Department 06/17/24 [...] MA - Fully Assessed Reason for Visit: Fans Clerk - Other [5072] Cmt: Integrated Mental Health Plan of Care Prescriptions as of 06/17/2024 - Hooiibra-Mt-Ahq-Fe-FA tab Take 1 tablet by mouth once [...] Status:Closed by SAROJ EARLY on 06/17/24 Normal [facility] Absolute neutrophil countOrd ered By: Cherry Simons on 05-25-2024 Neutrophils (Bld) [#/Vol] 6.4 10*3/uL 2.0-7.7 [facility] Basophil percentageOrdered B y: Cherry Simons on 05-25-2024 Basophils/100 WBC (Bld) 0.2 % 0-1 [facility] CBC W/Diff, Automatedon Absolute Lymph 2.12 X10 3/uL Normal 0.83-4.51 [facility] Comment on above: Performed By: #### L 509.8000 #### [facility] [address] [place], [address] Absolute Neut 6.4 X10 3/uL Normal 2.0-7.7 [facility] Comment on above: Performed By: #### L 509.8000 #### [facility] [address] [place], [address] Basophils/100 WBC (Bld) 0.2 % Normal 0-1 [facility] Comment on above: Performed By: #### L 509.8000 #### [facility] [address] [place], [address] Eosinophils/100 WBC (Bld) 0.4 % Normal 0-5 [facility] Comment on above: Performed By: #### L 509.8000 #### [facility] [address] [place], [address] Erythrocyte distribution width (RBC) [Ratio] 12.8 % Normal 11.6-14.6 [facility] Comment on above: Performed By: #### L 509.8000 #### [facility] [address] [place], [address] Hematocrit (Bld) [Volume fraction] 36.6 % Low 37-47 [facility] Comment on above: Performed By: #### L 509.8000 #### [facility] [address] [place], [address] Hemoglobin (Bld) [Mass/Vol] 12.7 g/dL Normal 12.0-15.0 [facility] Comment on above: Performed By: #### L 509.8000 #### [facility] [address] [place], [address] IG% 0.600 Normal 0.0-0.9 [facility] Comment on above: Result Comment: IG% - Immature Granulocytes (promyelocytes, myelocytes and metamyelocytes) > 1% indicates that a LEFT SHIFT is Present. Performed By: #### L 509.8000 #### [facility] [address] [place], [address] Lymphocytes/100 WBC (Bld) 23.4 % Normal 19-41 [facility] Comment on above: Performed By: #### L 509.8000 #### [facility] [address] [place], [address] MCH (RBC) [Entitic mass] 30.0 pg Normal 27.0-32.0 [facility] Comment on above: Performed By: #### L 509.8000 #### [facility] [address] [place], [address] MCHC (RBC) [Mass/Vol] 34.7 g/dL Normal 32-36 [facility] Comment on above: Performed By: #### L 509.8000 #### [facility] [address] [place], [address] MCV (RBC) [Entitic vol] 86.3 fL Normal 81-99 [facility] Comment on above: Performed By: #### L 509.8000 #### [facility] [place], [address] Monocytes/100 WBC (Bld) 5.2 % Normal 0-10 [facility] Comment on above: Performed By: #### L 509.8000 #### [facility] [place], [address] Neutrophils/100 WBC (Bld) 70.2 % High 47-70 [facility] Comment on above: Performed By: #### L 509.8000 #### [facility] [address] [place], [address] Nucleated RBC (Bld) [#/Vol] 0 10*3/uL Normal 0-5 [facility] Comment on above: Performed By: #### L 509.8000 #### [facility] [address] [place], [address] Platelet mean volume (Bld) [Entitic vol] 12.0 fL Normal 6.2-12.0 [facility] Comment on above: Performed By: #### L 509.8000 #### [facility] [address] [place], [address] Platelets (Bld) [#/Vol] 177 10*3/uL Normal 150-450 [facility] Comment on above: Performed By: #### L 509.8000 #### [facility] [address] [place], [address] RBC (Bld) [#/Vol] 4.24 10*6/uL Normal 4.2-5.4 [facility] Comment on above: Performed By: #### L 509.8000 #### [facility] [address] [place], [address] RDW SD 40.0 fl Normal 35.1-43.9 [facility] Comment on above: Performed By: #### L 509.8000 #### [facility] [address] [place], [address] WBC (Bld) [#/Vol] 9.1 10*3/uL Normal 4.4-11.0 [facility] Comment on above: Performed By: #### L 509.8000 #### [facility] [address] [place], [address] CNPNon 05-25-2024 CNPN Telephone (OBGYWM) ORAL FLETCHER ([id number]) 3 F Date Time Provider Department 05/25/24 CHERRY COLEMAN OBGYWAlexa During your visit today, we recorded the following information about you: Nora Haile LPN 05/25/2024 9:49 AM Signed 37w4d . Ob patient called c/o irregular contractions yesterday and this morning reports "cramping" and contractions coming approximately every 3 minutes and are lasting 45 seconds to 1 min and painful when they occur. Patient has not timed contractions for 1 hour yet. Patient denies lof, no VB, and baby is active. Please advise if patient needs to come to office to be seen or go to [facility] in contractions remain regular. Nora Haile LPN 05/25/2024 3:10 PM Signed Patient went to [facility] for evaluation Allergies As of Date: 05/25/2024 Noted Allergy Reaction EUCALYPTUS 05/05/2024 2 - Rash Comments: Chemical burn LACTASE 06/26/2020 14 - Other: See Comments Date Reviewed: 05/18/2024 Reviewed by: Indu Muhammad MA - Fully Assessed Reason for Visit: Care [86] Prescriptions as of 05/25/2024 - pantoprazole DR (PROTONIX) 20 mg tablet Take 1 tablet by mouth once daily. - aspirin, enteric coated (ECOTRIN LOW STRENGTH) 81 mg EC tablet Take 1 tablet by mouth once daily. - pyridoxine, vitamin B6, (VITAMIN B-6) 50 mg tablet Take 50 mg by mouth once daily. - Unoggxrz-Ul-Hyi-Fe-FA tab Take 1 tablet by mouth once [...] Status:Closed by NORA HAILE on 05/25/24 Normal [facility] Eosinophil percentageOrdered By: Cherry Simons on 05-25-2024 Eosinophils/100 WBC (Bld) 0.4 % 0-5 [facility] Erythrocyte distribution wid th ratioOrdered By: Cherry Simons on 05-25-2024 Erythrocyte distribution width (RBC) [Ratio] 12.8 % 11.6-14.6 [facility] Erythrocyte distribution wid th standard deviationOrdered By: Cherry Schuler on 05-25-2024 Erythrocyte distribution width (RBC) [Entitic vol] 40.0 fL 35.1-43.9 [facility] H AND P Exam - OB/GYNon H&P Exam - HOUSE RN [facility] Medical Records Department [address] [place] [address] H P Exam - HOUSE RN 05/25/24 1612 MR#: [id number] Acct: [id number] Name: ORAL FLETCHER Rep #: [id number] : 2005 18 From: Cherry Simons MD PCP: Care Physician,No Primary Status:ADM IN Location: [id number] HPI - General General Date of Admission: 05/25/24 HPI Narrative ORAL FLETCHER, is a 18 F @ 37.4 weeks who presents c/o contractions Maternal Data Information Final RICK: 06/11/24 Final RICK Source: US <20 weeks Gestational age: [facility] History (Updated 05/25/24 @ 16:14 [...] (more content not included)... Normal [facility] Hematocrit Auto (Bld) [Volum e fraction]Ordered By: Cherry Simons on 05-25-2024 Hematocrit (Bld) [Volume fraction] 36.6 % Low 37-47 [facility] Hemoglobin measurementOrdere d By: Cherry Simons on 05-25-2024 Hemoglobin (Bld) [Mass/Vol] 12.7 g/dL 12.0-15.0 [facility] Immature granulocytes/100 WB C Auto (Bld)Ordered By: Cherry Simons on 05-25-2024 Immature granulocytes/100 WBC (Bld) 0.600 % 0.0-0.9 [facility] Comment on above: IG% - Immature Granu locytes (promyelocytes, myelocytes and metamyelocytes) > 1% indicates that a LEFT SHIFT is Present. L509.8000on 05-25-2024 Syphilis Abs Non-Reactive Normal [facility] Comment on above: Performed By: #### L 509.8000 #### [facility] [address] [facility] [place], [address] Lymphocytes Auto (Unsp spec) [#/Vol]Ordered By: Cherry Simons on 05-25-2024 Lymphocytes (Bld) [#/Vol] 2.12 10*3/uL 0.83-4.51 [facility] Lymphocytes/100 WBC Auto (Un sp spec)Ordered By: Cherry Simons on 05-25-2024 Lymphocytes/100 WBC (Bld) 23.4 % 19-41 [facility] MCV (mean corpuscular volume ) determinationOrdered By: Cherry Simons on 05-25-2024 MCV (RBC) [Entitic vol] 86.3 fL 81-99 [facility] MR/OB.VAGDELIon 05-25-2024 MR/OB.VAGGANGAI [facility] Medical Records Department [address] [place] [address] OB Vaginal Delivery 05/25/242053 MR#: [id number] Acct: [id number] Name: ORAL FLETCHER Rep #: [id number] : 2005 18 From: Cherry Simons MD PCP: Care Physician,No Primary Status:ADM IN Location: [place] [address] Vaginal Delivery Maternal Presentation Maternal Presentation: Active [...] (5 minute): 8 Delayed Cord Clamping: Yes Milling Machine Tender contract administrator: No Post Vaginal Deli Medications given after delivery: IV Pitocin Episiotomy Description: None Laceration: Vaginal Extension/lac (repaired with 3-0 rapide ) and 1st degree Complication Complications: No 05/25/242057 Cosigner Signature (if applicable): CC: Dr Cherry Simons MD; No Primary Care Physician Signed Normal [facility] Mean corpuscular hemoglobin (MCH) determinationOrdered By: Cherry Schuler on 05-25-2024 MCH (RBC) [Entitic mass] 30.0 pg 27.0-32.0 [facility] Mean corpuscular hemoglobin concentration (MCHC) determinationOrdered By: Cherry Simons on 05-25-2024 MCHC (RBC) [Mass/Vol] 34.7 g/dL 32-36 [facility] Mean platelet volume determi nationOrdered By: Cherry Simons on 05-25-2024 Platelet mean volume (Bld) [Entitic vol] 12.0 fL 6.2-12.0 [facility] Monocyte percentageOrdered B y: Cherry Simons on 05-25-2024 Monocytes/100 WBC (Bld) 5.2 % 0-10 [facility] Neutrophil percentageOrdered By: Cherry Simons on 05-25-2024 Neutrophils/100 WBC (Bld) 70.2 % High 47-70 [facility] Nucleated red blood cell per centageOrdered By: Cherry Simons on 05-25-2024 Nucleated RBC/100 WBC (Bld) [Ratio] 0 % 0-5 [facility] Platelet countOrdered By: Rivera on 05-25-2024 Platelets (Bld) [#/Vol] 177 10*3/uL 150-450 [facility] RBC Auto (Bld) [#/Vol]Ordere d By: Cherry Simons on 05-25-2024 RBC (Bld) [#/Vol] 4.24 10*6/uL 4.2-5.4 [facility] Treponema sp Ab Ql (S)Ordere d By: Cherry Simons on 05-25-2024 Syphilis Total Antibody Non-Reactive [facility] Type AND Screenon 05-25-2024 Ab SCREEN GEL Negative Normal [facility] Comment on above: Order Comment: Labor Performed By: #### L 509.8000 #### [facility] [address] [place], [address] White blood cell (WBC) count Ordered By: Cherry Simons on 05-25-2024 WBC (Bld) [#/Vol] 9.1 10*3/uL 4.4-11.0 [facility] ROUTINE, GROUP B ST REP PCRon 05-18-2024 ROUTINE, GROUP B STREP PCR GROUP B STREP PCR: Negative for Group B Streptococcus by PCR. Normal [facility] Comment on above: Performed By: #### G BPCR ####[facility] LABCLIA [id number] [place] [address] [place] URINE OB DIP B/Oon Glucose Ql (U) Negative Neg mg/dL [facility] Protein.monoclonal (U) [Mass/Vol] Negative Neg mg/dL [facility] URINE OB DIP B/OOrdered By: Roro Sanz on 05-11-2024 Glucose Ql (U) Negative Neg mg/dL [facility] Interpretation and review of laboratory results Normal [facility] Protein.monoclonal (U) [Mass/Vol] Negative Neg mg/dL [facility] CNOVon 05-05-2024 CNOV Office Visit (OBGYWM ) ORAL FLETCHER ([id number]) 3 F Date Time Provider Department 05/05/24 [...] 05/05/2024 1:43 PM Signed SEQUENTIAL SCREENINGS The [facility] offers sequential screenings for women [...] It will require an appointment with our magnetic testing technician. This is not an ultrasound performed [...] the above symptoms, contact our office at [phone] and ask to speak with a nurse. After hours, you can call doctors registry at [phone] OR call [facility] at [phone] and ask to have the doctor azure principal solution specialist paged. If you consider this an emergency, dial [phone] or go to your nearest emergency department. NEED HELP? Are you dealing with a violent or abusive relationship? Are you a victim of rape or sexual assult? Call [facility] ([place]) 24 hour Crisis Hotline: 299.537.6207 or 929-356-8041. MANUAL Your Guide to a Healthy manual is now on-line. Visit [email or web address] [email or web address] to download your free [...] trimester [O26.893, R12] Order(s):URINE OB DIP B/O [[id number]] Order #: [id number] Prescriptions as of 05/05/2024 - pantoprazole DR (PROTONIX) 20 mg tablet Take 1 tablet by mouth once daily. - aspirin, enteric coated (ECOTRIN LOW STRENGTH) 81 mg EC tablet Take 1 tablet by mouth once daily. - pyridoxine, vitamin B6, (VITAMIN B-6) 50 mg tablet Take 50 mg by mouth once daily. - Xfouxrzk-Us-Ffx-Fe-FA tab Take 1 tablet by mouth once [...] of depressio (more content not included)... Normal [facility] CNPNon 04-22-2024 CNPN Telephone (OGFVWE) ORAL FLETCHER ([id number]) 3 F Date Time Provider Department 04/22/24 AMELIA ARMSTRONG OGFVWE During your visit today, we recorded the following information about you: Aemlia Armstrong RN 04/22/2024 9:23 AM Signed 3rd risk assessment form submitted 04/22/2024. 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 - aspirin, enteric coated (ECOTRIN LOW STRENGTH) 81 mg EC tablet Take 1 tablet by mouth once daily. - pyridoxine, vitamin B6, (VITAMIN B-6) 50 mg tablet Take 50 mg by mouth once daily. - Uahnnrmm-Up-Sye-Fe-FA tab Take 1 tablet by mouth once [...] Encounter Status:Closed by AMELIA ARMSTRONG on 04/22/24 Laurita [facility] Marly 04-21-2024 CNOV Office Visit (OBGYWM ) ORAL FLETCHER ([id number]) 3 F Date Time Provider Department 04/21/24 2:30 PM TRAN GAYTAN During your visit today, we recorded the following information about you: Blood pressure Weight 106/68 75.8 kg DonitaLd MA 04/21/2024 2:04 PM Signed SEQUENTIAL SCREENINGS The [facility] offers sequential screenings for women [...] It will require an appointment with our magnetic testing technician. This is not an ultrasound performed [...] the above symptoms, contact our office at [phone] and ask to speak with a nurse. After hours, you can call doctors registry at [phone] OR call [facility] at [phone] and ask to have the doctor azure principal solution specialist paged. If you consider this an emergency, dial 91-2 or go to your nearest emergency department. NEED HELP? Are you dealing with a violent or abusive relationship? Are you a victim of rape or sexual assult? Call [facility] ([place]) 24 hour Crisis Hotline: 652.287.3055 or 888-359-5178. MANUAL Your Guide to a Healthy manual is now on-line. Visit [email or web address] lthyPregnancyGuide to download your free copy Tran [...] 50 mg by mouth once daily. - Mpkayzas-Us-Ddp-Fe-FA tab Take 1 tablet by mouth once [...] first w (more content not included)... Normal [facility] Examination level ultrasound on 04-21-2024 [facility] Radiology Study observation (narrative) [facility] Turner 03-25-2024 MARKY Telephone (OBGYWM) ORAL FLETCHER ([id number]) 3 F Date Time Provider Department 03/25/24 [...] 50 mg by mouth once daily. - Iofbeqmg-Il-Wts-Fe-FA tab Take 1 tablet by mouth once [...] Status:Closed by GURDEEP SOMERS on 03/25/24 Normal [facility] GLUCOSE GESTATIONAL, 1 HOURo n 03-25-2024 Glucose 1 Hr post Unsp challenge [Mass/Vol] 88 mg/dL Normal 74-179 [facility] Comment on above: Order Comment: Kevin matthews Type: BLOOD SPECIMENOrdering Facility: [facility] Address: [address] [place] [address] Result Comment: [facility] Congress of Obstetricians and Gynecologists (Lois/Wade) guidelines state gestational diabetes mellitus is present when 2 or more of the plasma glucose concentrations meet or exceed the following levels: fastin mg/dl, 1 hr: 180 mg/dl, 2 hr: 155 mg/dl, and 3 hr: 140 mg/dl. Performed By: #### G TGST1 ####[facility] [id number] [address] OF [facility] GLUCOSE GESTATIONAL, 2 HOURo n 03-25-2024 Glucose 2 Hr post Unsp challenge [Mass/Vol] 60 mg/dL Low 74-154 [facility] Comment on above: Order Comment: Kevin matthews Type: BLOOD SPECIMENOrdering Facility: [facility] Address: [address] [place] [address] Result Comment: [facility] Congress of Obstetricians and Gynecologists (Abreu/Wade) guidelines state gestational diabetes mellitus is present when 2 or more of the plasma glucose concentrations meet or exceed the following levels: fastin mg/dl, 1 hr: 180 mg/dl, 2 hr: 155 mg/dl, and 3 hr: 140 mg/dl. Performed By: #### G TGST2 ####[facility] [id number] [address] OF OBED GLUCOSE GESTATIONAL, FASTING on 03-25-2024 Glucose post fast [Mass/Vol] 82 mg/dL Normal 74-94 [facility] Comment on above: Order Comment: Speci men Type: BLOOD SPECIMENOrdering Facility: [facility] Address: [address] [place] [address] Result Comment: [facility] Congress of Obstetricians and Gynecologists (Lois/Wade) guidelines state gestational diabetes mellitus is present when 2 or more of the plasma glucose concentrations meet or exceed the following levels: fastin mg/dl, 1 hr: 180 mg/dl, 2 hr: 155 mg/dl, and 3 hr: 140 mg/dl. Performed By: #### G TGSTF ####[facility] [id number] [place], [place] [id number] [place] [address] OF OBED Basic Metabolic Profile (BMP )on 03-21-2024 BUN/CRE 12.8 RATIO Normal 10-20 [facility] Comment on above: Performed By: #### L 509.8000 #### [facility] Laboratory [address] [place], [address] CA,Total 8.7 mg/dL Normal 8.5-10.1 [facility] Comment on above: Performed By: #### L 509.8000 #### [facility] [address] [place], [address] Chloride [Moles/Vol] 105 mmol/L Normal 98-107 [facility] Comment on above: Performed By: #### L 509.8000 #### [facility] [address] [place], [address] CO2 [Moles/Vol] 25.0 mmol/L Normal 21.0-32.0 [facility] Comment on above: Performed By: #### L 509.8000 #### [facility] [address] [place], [address] Creatinine [Mass/Vol] 0.47 mg/dL Low 0.55-1.02 [facility] Comment on above: Result Comment: The validity of the calculated GFR GFRAA in patients over 70 years has not been determined. Clinical correlation is essential. Performed By: #### L 509.8000 #### [facility] [address] [place], [address] ECRCL 188.38 ml/min Normal [facility] Comment on above: Performed By: #### L 509.8000 #### [facility] [address] [place], [address] EST GFR - AA 218 mL/min Normal >60 [facility] Comment on above: Result Comment: Afri can Bahraini GFR Calc Performed By: #### L 509.8000 #### [facility] [address] [place], [address] GAP 7 Normal 5-15 [facility] Comment on above: Performed By: #### L 509.8000 #### [facility] [address] [place], [address] GFR/1.73 sq M.predicted among non-blacks MDRD (S/P/Bld) [Vol rate/Area] 180 mL/min/{1.73_m2} Normal >60 [facility] Comment on above: Result Comment: Non- GFR Calc Performed By: #### L 509.8000 #### [facility] [address] [place], [address] Glucose [Mass/Vol] 80 mg/dL Normal 74-106 [facility] Comment on above: Performed By: #### L 509.8000 #### [facility] [address] [place], [address] Potassium [Moles/Vol] 3.5 mmol/L Normal 3.5-5.1 [facility] Comment on above: Performed By: #### L 509.8000 #### [facility] [address] [place], [address] Sodium [Moles/Vol] 137 mmol/L Normal 136-145 [facility] Comment on above: Performed By: #### L 509.8000 #### [facility] [address] [place], [address] Urea nitrogen [Mass/Vol] 6 mg/dL Low 7-18 [facility] Comment on above: Performed By: #### L 509.8000 #### [facility] [address] [place], [address] CBC W/Diff, Automatedon 11-0 3-2024 Absolute Lymph 1.21 X10 3/uL Normal 0.83-4.51 [facility] Comment on above: Performed By: #### L 509.8000 #### [facility] [address] [place], [address] Absolute Neut 4.9 X10 3/uL Normal 2.0-7.7 [facility] Comment on above: Performed By: #### L 509.8000 #### [facility] [address] [place], [address] Basophils/100 WBC (Bld) 0.1 % Normal 0-1 [facility] Comment on above: Performed By: #### L 509.8000 #### [facility] [address] [place], [address] Eosinophils/100 WBC (Bld) 0.6 % Normal 0-5 [facility] Comment on above: Performed By: #### L 509.8000 #### [facility] [address] [place], [address] Erythrocyte distribution width (RBC) [Ratio] 12.6 % Normal 11.6-14.6 [facility] Comment on above: Performed By: #### L 509.8000 #### [facility] [address] [place], [address] Hematocrit (Bld) [Volume fraction] 31.5 % Low 37-47 [facility] Comment on above: Performed By: #### L 509.8000 #### [facility] [address] [place], [address] Hemoglobin (Bld) [Mass/Vol] 11.3 g/dL Low 12.0-15.0 [facility] Comment on above: Performed By: #### L 509.8000 #### [facility] [address] [place], [address] IG% 0.400 Normal 0.0-0.9 [facility] Comment on above: Result Comment: IG% - Immature Granulocytes (promyelocytes, myelocytes and metamyelocytes) > 1% indicates that a LEFT SHIFT is Present. Performed By: #### L 509.8000 #### [facility] [address] [place], [address] Lymphocytes/100 WBC (Bld) 18.0 % Low 19-41 [facility] Comment on above: Performed By: #### L 509.8000 #### [facility] [address] [place], [address] MCH (RBC) [Entitic mass] 31.4 pg Normal 27.0-32.0 [facility] Comment on above: Performed By: #### L 509.8000 #### [facility] [address] [place], [address] MCHC (RBC) [Mass/Vol] 35.9 g/dL Normal 32-36 [facility] Comment on above: Performed By: #### L 509.8000 #### [facility] [address] [place], [address] MCV (RBC) [Entitic vol] 87.5 fL Normal 81-99 [facility] Comment on above: Performed By: #### L 509.8000 #### [facility] [address] [place], [address] Monocytes/100 WBC (Bld) 7.7 % Normal 0-10 [facility] Comment on above: Performed By: #### L 509.8000 #### [facility] [address] [place], [address] Neutrophils/100 WBC (Bld) 73.2 % High 47-70 [facility] Comment on above: Performed By: #### L 509.8000 #### [facility] [address] [place], [address] Nucleated RBC (Bld) [#/Vol] 0 10*3/uL Normal 0-5 [facility] Comment on above: Performed By: #### L 509.8000 #### [facility] [address] [place], [address] Platelet mean volume (Bld) [Entitic vol] 11.5 fL Normal 6.2-12.0 [facility] Comment on above: Performed By: #### L 509.8000 #### [facility] [address] [place], [address] Platelets (Bld) [#/Vol] 146 10*3/uL Low 150-450 [facility] Comment on above: Performed By: #### L 509.8000 #### [facility] [address] [place], [address] RBC (Bld) [#/Vol] 3.60 10*6/uL Low 4.2-5.4 [facility] Comment on above: Performed By: #### L 509.8000 #### [facility] [address] [place], [address] RDW SD 39.6 fl Normal 35.1-43.9 [facility] Comment on above: Performed By: #### L 509.8000 #### [facility] [address] [place], [address] WBC (Bld) [#/Vol] 6.7 10*3/uL Normal 4.4-11.0 [facility] Comment on above: Performed By: #### L 509.8000 #### [facility] [address] [place], [address] Emergency Department Summary on 03-21-2024 Emergency Department Summary [facility] Medical Records Department [address] [place] [address] Emergency Department Summary 03/21/24 MR#: [id number] Acct: [id number] Name: ORAL FLETCHER Rep #: [id number] : 2005 18 From: Vlad Jay DO [...] an infective process she presents for evaluation. [facility] Medical History Encounter for screening [...] (more content not included)... Normal [facility] Liver Profileon 03-21-2024 Albumin [Mass/Vol] 3.0 g/dL Low 3.2-5.0 [facility] Comment on above: Performed By: #### L 509.8000 #### [facility] [address] [place], [address] ALK P 68 U/L Normal 45-117 [facility] Comment on above: Performed By: #### L 509.8000 #### [facility] [address] [place], [address] ALT [Catalytic activity/Vol] 21 U/L Normal 13-56 [facility] Comment on above: Performed By: #### L 509.8000 #### [facility] [address] [place], [address] AST [Catalytic activity/Vol] 10 U/L Low 15-37 [facility] Comment on above: Performed By: #### L 509.8000 #### [facility] [address] [facility] [place], [address] Bilirubin [Mass/Vol] 0.50 mg/dL Normal 0.20-1.00 [facility] Comment on above: Result Comment: For patients on eltrombopag therapy, use of Dimension [employer] TBIL is not recommended. Performed By: #### L 509.8000 #### [facility] [address] [place], [address] Bilirubin.direct [Mass/Vol] 0.14 mg/dL Normal 0.00-0.30 [facility] Comment on above: Performed By: #### L 509.8000 #### [facility] [address] [place], [address] Globulin (S) [Mass/Vol] 3.9 g/dL Normal 2.2-4.2 [facility] Comment on above: Performed By: #### L 509.8000 #### [facility] [address] [place], [address] T PROT 6.9 g/dL Normal 6.4-8.2 [facility] Comment on above: Performed By: #### L 509.8000 #### [facility] [address] [place], [address] Magnesiumon 03-21-2024 Magnesium [Mass/Vol] 1.8 mg/dL Normal 1.6-2.6 [facility] Comment on above: Performed By: #### L 509.8000 #### [facility] [address] [place], [address] STREP A MOLECULAR (POC)on Procedural Control Valid [facility] Strep A (POCT) Negative Negative [facility] OB Triage Physician Noteon 1 OB Triage Physician Note [facility] Medical Records Department [address] [place] [address] OB Triage Physician Note 03/13/24 0759 MR#: [id number] Acct: [id number] Name: ORAL FLETCHER Rep #: [id number] : 2005 18 From: Tran Gaytan CNM PCP: Dr. Ren Carlson MD Status:REG CLI Y Location: [place] [address]-1 HPI - General HPI Narrative ORAL FLETCHER, [...] gym, sports seatbelt use: always 03/13/24809 Date Tran Belloigner Signature (if applicable): Date CC: ELIAZAR Gaytan; Dr. Ren Carlson MD Signed ADDENDUM by ELIAZAR Gaytan on 03/13/24 at 926 Addendum RICK 06/11/24 27.1 weeks gestation NST reactive for gestational age 145 bpm/ mod. variability Patient has felt movement since arrival Reviewed kick counts / PTL precautions D/C home with follow up in office this week 03/13/24926 Date Tran Gaytan CNM cc: ELIAZAR Gaytan; Dr. Ren Carlson MD * Signed Normal [facility] Urinalysis, Completeon 03-13 AMORPHOUS 1+ Normal [facility] Comment on above: Order Comment: COLLE CTOR TO SPECIFY Performed By: #### L 400.0001 #### [facility] [address] [place], [address] Mucus Ql (Urine sed) 1+ /hpf Normal [facility] Comment on above: Order Comment: ERNESTO CTOR TO SPECIFY Performed By: #### L 400.0001 #### [facility] [address] [place], [address] WBC 0-5 SEEN Normal 0-5 [facility] Comment on above: Order Comment: ERNESTO CTOR TO SPECIFY Performed By: #### L 400.0001 #### [facility] [address] [place], [address] BACTERIA 3+ /hpf Normal None Seen [facility] Comment on above: Order Comment: ERNESTO CTOR TO SPECIFY Performed By: #### L 400.0001 #### [facility] [address] [place], [address] EPI,SQUAMOUS 5-10 SEEN Normal 5-10 [facility] Comment on above: Order Comment: ERNESTO CTOR TO SPECIFY Performed By: #### L 400.0001 #### [facility] [address] [place], [address] RBC 0 SEEN Normal 0-5 [facility] Comment on above: Order Comment: ERNESTO CTOR TO SPECIFY Performed By: #### L 400.0001 #### [facility] [address] [place], [address] Examination level ultrasound on 01-23-2024 Indication Standard [...] 13 oz EFW by: Hadlock (HC-AC-FL) Extended Aids Social Worker 6.0 mm CM 7.3 mm 97% Nicolaides [...] normal LVOT view: normal 3-vessel view: normal 0-fhhpbw-egnsthu view: normal Heart / Thorax Situs: situs [...] Read By: Deandra Reza M.D. MATERNAL MEDICINE [facility] Radiology Study observation (narrative) [facility] nuchal translucency me asured by Mike 11-28-2023 Indication First trimester anatomic survey Impression REMOTE READ The patient is referred for a first trimester anatomy scan including nuchal translucency measurement as clinically indicated. - Single, live, intrauterine . - Richardson rump length measurement is consistent with the [...] view: normal 4-chamber view with color: normal 8-ewoeeq-fwxlbjl view: normal Abdominal cord insertion: normal Stomach: [...] Read By: Deandra Reza M.D. MATERNAL MEDICINE [facility] Radiology Study observation (narrative) [facility] POC BEAUTY CONSULTANT ULTRASOUNDon 11-17-19 Indication Viability; confirm cardiac activity [...] Read By: Anitra Caldwell CNM MATERNAL MEDICINE [facility] BACTERIAL VAGINOSIS NAATon 0 11-15-2023 Interpretation and review of laboratory results Normal [facility] Lactobacillus crispatus+gasseri+elpidio enii + Gardnerella vaginalis + Atopobium vaginae rRNA RUPESH+probe Ql (Vag fld) Negative Negative for bacterial vaginosis [facility] C. trachomatis+N. gonorrhoea e DNA RUPESH+probe Ql (Unsp spec)on 11-15-2023 C. trachomatis rRNA RUPESH+probe Ql (Unsp spec) Negative Negative for Chlamydia trachomatis by amplificaton [facility] Interpretation and review of laboratory results Normal [facility] N. gonorrhoeae rRNA RUPESH+probe Ql (Unsp spec) Negative Negative for Neisseria gonorrhoeae by amplification [facility] LESLIE/TRICHOMONAS NAATon 0 11-15-2023 C. glabrata RNA RUPESH+probe Ql (Vag fld) Negative Negative for Leslie glabrata [facility] Leslie sp DNA RUPESH+probe Ql (Vag fld) Negative Negative for Leslie species [facility] Interpretation and review of laboratory results Normal [facility] T. vaginalis DNA RUPESH+probe Ql (Unsp spec) Negative Negative for Trichomonas vaginalis by amplification [facility] POC BEAUTY CONSULTANT ULTRASOUNDon 11-14-19 Radiology Study observation (narrative) [facility] MR Knee - left WO contraston 08-29-2023 [facility] XR Knee - left 4 Viewson [facility] Absolute lymphocyte countOrd ered By: Vlad Jay on 06-03-2023 Lymphocytes Auto (Unsp spec) [#/Vol] 2.43 10*3/uL 0.83-4.51 [facility] Acetaminophen level (mass/vo lume)Ordered By: Vlad Jay on 06-03-2023 Acetaminophen (Unsp spec) [Mass/Vol] 42.2 ug/mL 10.0-30.0 [facility] Basophil percentageOrdered B y: Vlad Jay on 06-03-2023 Basophil percentage 0 SEEN /hpf 0-5 [facility] Basophils/100 WBC (Bld) 0.3 % 0-1 [facility] Bilirubin [Mass/Vol] 0.90 mg/dL 0.20-1.00 [facility] Comment on above: For patients on eltr ombopag therapy, use of [employer]ension [employer] TBIL is not recommended. Chloride [Moles/Vol] 106 mmol/L 98-107 [facility] Eosinophils/100 WBC (Bld) 0.8 % 0-3 [facility] Glucose [Mass/Vol] 99 mg/dL 74-106 [facility] Neutrophils (Bld) [#/Vol] 2.9 10*3/uL 2.0-7.7 [facility] Neutrophils/100 WBC (Bld) 50.0 % 34-64 [facility] Potassium [Moles/Vol] 3.6 mmol/L 3.5-5.1 [facility] Protein [Mass/Vol] 7.4 g/dL 6.4-8.2 [facility] Sodium [Moles/Vol] 140 mmol/L 136-145 [facility] WBC (Bld) [#/Vol] 5.9 10*3/uL 4.5-13.0 [facility] Bilirubin Test strip Ql (U)O rdered By: Vlad Jay on 06-03-2023 Bilirubin Ql (U) Negative Negative [facility] Blood erythrocytes count (nu mber/volume)Ordered By: Vlad Jay on 06-03-2023 RBC (Bld) [#/Vol] 4.69 10*6/uL 4.1-4.8 [facility] Blood hemoglobin measurement (mass/volume)Ordered By: Vlad Jay on 06-03-2023 Hemoglobin (Bld) [Mass/Vol] 13.1 g/dL 12.0-15.0 [facility] Blood lymphocytes/100 leukoc ytesOrdered By: Vlad Jay on 06-03-2023 Lymphocytes/100 WBC (Bld) 41.3 % 25-45 [facility] Blood monocytes/100 leukocyt esOrdered By: Vlad Jay on 06-03-2023 Monocytes/100 WBC (Bld) 7.3 % 3-6 [facility] Blood platelet mean volumeOr dered By: Vlad Jay on 06-03-2023 Platelet mean volume (Bld) [Entitic vol] 10.9 fL 6.2-12.0 [facility] COVID-19 virus antigen assay Ordered By: Vlad Jay on 06-03-2023 SARS-CoV-2 (COVID-19) Ag IA.rapid Ql (Resp) [facility] Determination of erythrocyte mean corpuscular volume (MCV)Ordered By: Vlad Jay on 06-03-2023 MCV (RBC) [Entitic vol] 82.9 fL 78-96 [facility] Direct bilirubinOrdered By: Vlad Jay on 06-03-2023 Bilirubin.direct [Mass/Vol] 0.24 mg/dL 0.00-0.30 [facility] Hematocrit Auto (Bld) [Volum e fraction]Ordered By: Vlad Jay on 06-03-2023 Hematocrit (Bld) [Volume fraction] 38.9 % 37-46 [facility] INR in Blood by Coagulation assayOrdered By: Vlad Jay on 06-03-2023 INR Coag (Bld) [Relative time] 1.1 {INR} [facility] Ketones Test strip Ql (U)Ord ered By: Vlad Jay on 06-03-2023 Ketones Ql (U) Negative Negative [facility] Laboratory - Chemistry and C hemistry - challengeOrdered By: Vlad Jay on 06-03-2023 ALP [Catalytic activity/Vol] 52 U/L 47-119 [facility] ALT [Catalytic activity/Vol] 17 U/L 13-56 [facility] CO2 [Moles/Vol] 28.0 mmol/L 21.0-32.0 [facility] Globulin (S) [Mass/Vol] 3.1 g/dL 2.2-4.2 [facility] HCG ( test) Ql (U) Negative [facility] Comment on above: Very dilute urine sp ecimens, as indicated by a low specificgravity, may not contain communications representative levels of hCG. If is still suspected, a first morning urinespecimen should be collected 48 hours later and tested. Urea nitrogen/Creatinine [Mass ratio] 14.0 mg/mg 10-20 [facility] Laboratory - CoagulationOrde red By: Vlad Jay on 06-03-2023 PT Coag (PPP) [Time] 14.3 s 11.7-14.9 [facility] Laboratory - Drug toxicology Ordered By: Vlad Jay on 06-03-2023 Amphetamines Ql (U) Negative <1000 ng/mL [facility] Benzodiazepines Ql (U) Negative < 200 ng/mL [facility] Cannabinoids Screen Ql (U) Positive < 50 ng/mL [facility] Cocaine Ql (U) Negative < 300 ng/mL [facility] Opiates Ql (U) Negative < 300 ng/mL [facility] Laboratory - Hematology and Cell countsOrdered By: Vlad Jay on 06-03-2023 Erythrocyte distribution width (RBC) [Entitic vol] 38.3 fL 35.1-43.9 [facility] Erythrocyte distribution width (RBC) [Ratio] 12.8 % 11.6-14.6 [facility] Immature granulocytes/100 WBC (Bld) 0.300 % 0.0-0.9 [facility] Comment on above: IG% - Immature Granu locytes (promyelocytes, myelocytes and metamyelocytes) > 1% indicates that a LEFT SHIFT is Present. MCH (RBC) [Entitic mass] 27.9 pg 25.0-35.0 [facility] Nucleated RBC/100 WBC (Bld) [Ratio] 0 % 0-5 [facility] MCHC Auto (RBC) [Mass/Vol]Or dered By: Vlad Jay on 06-03-2023 MCHC (RBC) [Mass/Vol] 33.7 g/dL 32-36 [facility] Mucus LM Ql (Urine sed)Order ed By: Vlad Jay on 06-03-2023 Mucus Ql (Urine sed) 0 SEEN /hpf [facility] Nitrite Test strip Ql (U)Ord ered By: Vlad Jay on 06-03-2023 Nitrite Ql (U) Negative Negative [facility] No Panel InformationOrdered By: Vlad Jay on 06-03-2023 Estimated Creatinine Clearance Calc 116.44 ml/min [facility] Estimated GFR (MDRD) Amer 136 mL/min >60 [facility] Comment on above: GFR Calc Estimated GFR (MDRD) Non-Af Amer 112 mL/min >60 [facility] Comment on above: Non- GFR Calc Ethyl Alcohol Level < 3.0 mg/dL [facility] Comment on above: The serum:whole bloo d ethanol ratio is approximately 1.14and varies slightly with hematocrit. Medical Alcohol reference interval and critical value innon-tolerant individuals; 50 - 100 Impairment 100 Intoxication 100 - 250 Severe Poisoning 250 - 400 Deep/possible fatal coma MDMA (Ecstasy) Screen Negative < 500 ng/mL [facility] Urine Barbiturates Screen Negative < 200 ng/mL [facility] Urine Drug Screen Comment [facility] Comment on above: CONFIRMATORY TESTING FOR ALL [...] Methadone Screen Negative < 300 ng/mL W [facility] Platelets bldOrdered By: Koko Jay on 06-03-2023 Platelets (Bld) [#/Vol] 215 10*3/uL 150-450 [facility] Protein Test strip Ql (U)Ord ered By: Vlad Jay on 06-03-2023 Protein Ql (U) 15 mg/dl Negative [facility] Serum or plasma albumin harriet urement (mass/volume)Ordered By: Vlad Jay on 06-03-2023 Albumin [Mass/Vol] 4.3 g/dL 3.2-5.0 [facility] Serum or plasma calcium harriet urement (mass/volume)Ordered By: Vlad Jay on 06-03-2023 Calcium [Mass/Vol] 9.4 mg/dL 8.5-10.1 [facility] Serum or plasma creatinine m easurement (mass/volume)Ordered By: Vlad Jay on 06-03-2023 Creatinine [Mass/Vol] 0.71 mg/dL 0.55-1.02 [facility] Comment on above: The validity of the calculated GFR & GFRAA in patients over 70 years has not been determined. Clinical correlation is essential. Serum or plasma salicylates measurement (mass/volume)Ordered By: Vlad Jay on 06-03-2023 Salicylates [Mass/Vol] mg/dL 2.8-20.0 [facility] Serum or plasma urea nitroge n measurement (mass/volume)Ordered By: Vlad Jay on 06-03-2023 Urea nitrogen [Mass/Vol] 10 mg/dL 7-18 [facility] Squamous epithelial cells de tection in urine sediment by light microscopyOrdered By: Vlad Jay on 06-03-2023 Epithelial cells.squamous LM Ql (Urine sed) 0 SEEN /hpf 5-10 [facility] Thin prep Papanicolaou smear with manual screeningOrdered By: Vlad Jay on 06-03-2023 Thin prep Papanicolaou smear with manual screening 7 U/L 15-37 [facility] Thin prep Papanicolaou smear with manual screening 6 5-15 [facility] Urine blood detectionOrdered By: Vlad Jay on 06-03-2023 RBC Ql (U) 10 /ul Negative [facility] RBC Ql (U) 0 SEEN /hpf 0-5 [facility] Urine clarityOrdered By: Koko Jay on 06-03-2023 Clarity (U) Clear Clear [facility] Urine color determinationOrd ered By: Vlad Jay on 06-03-2023 Color (U) Yellow Yellow [facility] Urine glucose detectionOrder ed By: Vlad Jay on 06-03-2023 Glucose Ql (U) Normal mg/dl Normal [facility] Urine leukocyte esterase det ection by dipstickOrdered By: Vlad Jay on 06-03-2023 Leukocyte esterase Test strip Ql (U) 25 /ul Negative [facility] Urine pHOrdered By: Vlad bravo on 06-03-2023 pH (U) 7.0 [pH] 5.0 - 8.0 [facility] Urine phencyclidine (PCP) de tectionOrdered By: Vlad Jay on 06-03-2023 Phencyclidine Ql (U) Negative < 25 ng/mL [facility] Urine sediment bacteria coun t by microscopy (number/high power field)Ordered By: Vlad Jay on 06-03-2023 Bacteria LM.HPF (Urine sed) [#/Area] 0 /[HPF] None Seen [facility] Urine specific gravity measu rementOrdered By: Vlad Jay on 06-03-2023 Specific gravity (U) [Rel density] 1.010 1.002-1.030 [facility] Urobilinogen Auto test strip Ql (U)Ordered By: Vlad Jay on 06-03-2023 Urobilinogen Ql (U) Normal mg/dl Normal [facility] ED NOTEon 04-18-2023 ED NOTE HNO ID: [id number] Author: Michael Gomez RN Service: Emergency Medicine Author Type: Registered Nurse Type: ED Notes Filed: 04/23/2023 5:36 AM Note Text: Chart accessed for audit purposes on 04/23/23. [facility] ED NOTE HNO ID: [id number] Author: Shelby Leach RN Service: Emergency Medicine Author Type: Registered Nurse Type: ED Notes Filed: 04/18/2023 7:36 AM Note Text: Patient is alert and oriented, denies any questions/concerns at this time. Patient verbalizes understanding of d/c instructions, medications and follow up care. Patient ambulates from department at this time. [facility] ED PROV NOTEon 04-18-2023 ED PROV NOTE HNO ID: [id number] Author: Fred Lopez MD Service: Emergency Medicine [...] (137 lb 14.4 oz) 1.626 m (5' 4") Physical Exam Vitals and nursing note reviewed. [...] patient was endorsed to me by Dr. Basch pending swabs. Swabs returned demonstrating no abnormalities. [...] loss of (more content not included)... Normal [facility] FLUABV+SARS-CoV-2+RSV Pnl Re sp RUPESH+probeon 04-18-2023 FLUABV+SARS-CoV-2+RSV Pnl Resp RUPESH+probe COVID 19 RESULT: Not detected The method used is RT-PCR or an equivalent NAAT method. Reference Range(the expected result in uninfected individuals): Not detected INFLUENZA A PCR: Not detected INFLUENZA B PCR: Not detected RSV PCR: Not detected Normal [facility] Comment on above: Performed By: #### 9 [id number] #### [facility] CLIA [id number] [address] [place] [id number] [place] S pyo DNA Throat Ql RUPESH+prob jose martin 04-18-2023 S. pyogenes DNA RUPESH+probe Ql (Throat) Not detected Normal Not detected [facility] Comment on above: Order Comment: Speci men Type: SWAB Ordering Facility: [facility] Address: [facility] [place] [address] Performed By: #### 6 [id number] #### [facility] CLIA [id number] [address] [place] [address] [place] STREP A MOLECULAR (POC)on Procedural Control Valid [facility] Strep A (POCT) Negative Negative [facility] No Panel Informationon 02-18 Radiology Study observation (narrative) [facility] XR Ankle - right AP and Late ral and obliqueon 02-18-2023 IMPRESSION: No fracture. Environmental Program Manager: CHAPARRITA Transcribe Date/Time: Feb 18 2023 12:08P Dictated by : JULIETH MELARA MD This examination was interpreted and the report reviewed and electronically signed by: JULIETH MELARA MD on Feb 18 2023 12:11PM [facility] DIVISION OF RADIOLOGY * * *Final Report* [...] soft tissue swelling. DIVISION OF RADIOLOGY Provider, [facility] - 02/18/2023 * * *Final [...] soft tissue swelling. IMPRESSION IMPRESSION: No fracture. Environmental Program Manager: PSCB Transcribe Date/Time: Feb 18 2023 12:08P Dictated by : JULIETH MELARA MD This examination was interpreted and the report reviewed and electronically signed by: JULIETH MELARA MD on Feb 18 2023 12:11PM EST [facility] XR Ankle - right AP and Late ral and obliqueOrdered By: Ccf Provider on 02-18-2023 [facility] XR Foot - right AP and Later al and obliqueon 02-18-2023 IMPRESSION: No acute osseous abnormality Environmental Program Manager: PSCB Transcribe Date/Time: Feb 18 2023 12:22P Dictated by : FRED MCKENNA MD This examination was interpreted and the report reviewed and electronically signed by: FRED MCKENNA MD on Feb 18 2023 12:25PM [facility] DIVISION OF RADIOLOGY * * *Final Report* [...] the navicular bone. DIVISION OF RADIOLOGY Provider, [facility] - 02/18/2023 * * *Final [...] bone. IMPRESSION IMPRESSION: No acute osseous abnormality Environmental Program Manager: [facility] Transcribe Date/Time: Feb 18 2023 12:22P Dictated by : FRED MCKENNA MD This examination was interpreted and the report reviewed and electronically signed by: FRED MCKENNA MD on Feb 18 2023 12:25PM EST [facility] XR Foot - right AP and Later al and obliqueOrdered By: Ccf Provider on 02-18-2023 [facility] STREP A MOLECULAR (POC)on Procedural Control Valid [facility] Strep A (POCT) Negative Negative [facility] MRI KNEE WO IVCON LTon 10-16 [facility] ALLIED HEALTHon 09-26-2021 ALLIED HEALTH HNO ID: [id number] Author: Mady Wharton RT(R) Service: ? Author Type: Vocational Nurse Lvn Type: Allied Health Filed: 09/26/2021 12:17 PM [...] September 26, 2021 12:16 PM [facility] XR KNEE 4V AP/PA BOTH+LAT/ME R [...] seen in the lateral and patellofemoral compartments. Environmental Program Manager: CHAPARRITA Transcribe Date/Time: Sep 26 2021 12:52P Dictated by : JULIETH MELARA MD This examination was interpreted and the report reviewed and electronically signed by: JULIETH MELARA MD on Sep 26 2021 12:56PM EST [id number] [facility] XR KNEE GENERAL 4V AP BOTH/P A BOTH/LAT/MERC LEFTon 09-26-2021 [facility] ANES Yumi 12-03-2019 ANES POST HNO ID: [id number] Author: Jocy Beatty Service: Anesthesiology Author Type: [...] 2019 TIME: 5:58 PM PAGER/CONTACT #: [facility] ANES PREOPon 12-03-2019 ANES PREOP HNO ID: [id number] Author: Jocy Beatty Service: Anesthesiology Author Type: Anesthesiologist Type: Anesthesia PreOp Filed: 12/03/2019 6:50 AM Note Text: ANESTHESIOLOGY DAY OF SURGERY NOTE SERVICE DATE: 12/03/2019 SERVICE TIME: 6:49 AM : 2004 Procedure(s) (LRB): EXCISION GANGLION WRIST (Left) Surgeon(s): Eb Domingo Estimated body mass index is 25.06 kg/m? as calculated from the following: Height as of 11/25/19: 162.6 cm (5' 4"). Weight as of 11/25/19: 66.2 kg (146 [...] % topical cream (LMX) TOPICAL PRN Jennifer Garcia (Kayleigh) Diego - ceFAZolin iv piggyback 2 g [...] December 03, 2019 TIME: 6:49 AM CSN: [id number] [facility] OPERATIVE NOon 12-03-2019 OPERATIVE NO HNO ID: [id number] Author: Eb Domingo Service: Orthopaedic Surgery Author Type: Physician Type: Operative Report Filed: 12/03/2019 8:39 AM Note Text: ORTHOPAEDIC SURGERY OPERATIVE REPORT Patient Name: Oral Fletcher Log ID: [id number] Surgery Date: 12/03/2019 Start Time: 7:50 AM [...] AND Upper Extremity Orthopaedic Staff Surgeon [facility] PT EDon 12-03-2019 PT ED HNO ID: [id number] Author: Lorraine (Rn) ADRIEN Albarado Service: Nursing [...] Signed By: Lorraine Albarado RN In Department: [facility] AMBULATORY SURGERY - [facility] SURGICAL PATHOLOGYon 020 SURGICAL PATHOLOGY Specimen #: [id number] Submitting Physician: EB DOMINGO FINAL DIAGNOSIS Soft tissue, left wrist, excision - Ganglion cyst. JRG/SGG/lbk 12/07/2019 Fred Holley M.D. (Electronic Signature) SPECIMEN SUBMITTED A: LEFT WRIST MASS CLINICAL DATA GANGLION OF LEFT WRIST, GANGLION CYST OF WRIST GROSS DESCRIPTION A. Received in formalin are two segments of velasco-yellow fibrous soft tissue aggregating to 2.7 x 1.0 x 0.3 cm. Entirely submitted in cassette A1. GABOB/shreya 12/06/2019 [place] [address] Date of Report: 12/08/2019 Date of Procedure: 12/03/2019 Date of Receipt: 12/03/2019 Submitted by: EB DOMINGO Location: [facility] ([facility]) Diagnostic interpretation performed at [facility], [address] [place] [address]. [place] Number: [id number] [facility] HOSPon 11-16-2019 HOSP Patient:Oral Fletcher MRN: Height:5' 4"[patient reported[(1.626 m) Weight:146 lb (66.225 kg) Outpatient [...] lb 2.6 oz) Height: 162.8 cm (5' 4.09") Body mass index is 25.02 kg/m?. General: [...] Extremity Orthopaedic Staff Surgeon Previous Version [facility] Office Visit: UC: bronchitis , pharyngitison 03-20-2017 Documentation of current medications (procedure) Done Invalid Interpretation Code [facility] Work Phone: Fall risk assessment No Invalid Interpretation Code [facility] Work Phone: Tobacco smoking status NHIS Never Invalid Interpretation Code [facility] Work Phone: Tobacco use CPHS Never smoker Invalid Interpretation Code [facility] Work Phone: Office Visit: UC: jovani dukes 08-12-2016 Rapid strep test Positive Invalid Interpretation Code [facility] Work Phone: Vital Signs Date Time Vital Sign Value Performing Clinician Facility 01-10-2025 12:15-0400 Body temperature 97.9 [degF] No Primary Care Physician [facility] 01-10-2025 12:15-0400 Diastolic blood pressure 67 mm[Hg] No Primary Care Physician [facility] 01-10-2025 12:15-0400 Heart rate 87 /min No Primary Care Physician [facility] 01-10-2025 12:15-0400 Respiratory rate 16 /min No Primary Care Physician [facility] 01-10-2025 12:15-0400 SaO2% (BldA) [Mass fraction] 100 % No Primary Care Physician [facility] 01-10-2025 12:15-0400 Systolic blood pressure 117 mm[Hg] No Primary Care Physician [facility] 01-10-2025 11:56-0400 Body height 162.56 cm No Primary Care Physician [facility] 01-10-2025 11:56-0400 Body mass index (BMI) [Ratio] 21.3 kg/m2 No Primary Care Physician [facility] 01-10-2025 11:56-0400 Body weight 56.47 kg No Primary Care Physician [facility] 12-31-2024 09:16-0400 Body mass index (BMI) [Ratio] 21.83 kg/m2 Mark Moomaw PEDIATRIC PHYSICIAN ASSISTANT.COMPUTER GRAPHICS ILLUSTRATOR Work Phone: [facility] 12-31-2024 09:16-0400 Body temperature 97.7 [degF] Mark Moomaw PEDIATRIC PHYSICIAN ASSISTANT.COMPUTER GRAPHICS ILLUSTRATOR Work Phone: [facility] 12-31-2024 09:16-0400 Body weight 58.6 kg Mark Moomaw PEDIATRIC PHYSICIAN ASSISTANT.COMPUTER GRAPHICS ILLUSTRATOR Work Phone: [facility] 12-31-2024 09:16-0400 Diastolic blood pressure 68 mm[Hg] Mark Moomaw PEDIATRIC PHYSICIAN ASSISTANT.COMPUTER GRAPHICS ILLUSTRATOR Work Phone: [facility] 12-31-2024 09:16-0400 Heart rate 65 /min Mark Moomaw PEDIATRIC PHYSICIAN ASSISTANT.COMPUTER GRAPHICS ILLUSTRATOR Work Phone: [facility] 12-31-2024 09:16-0400 Respiratory rate 18 /min Mrak Moomaw PEDIATRIC PHYSICIAN ASSISTANT.COMPUTER GRAPHICS ILLUSTRATOR Work Phone: [facility] 12-31-2024 09:16-0400 SaO2% (BldA) [Mass fraction] 100 % Mark Moomaw PEDIATRIC PHYSICIAN ASSISTANT.COMPUTER GRAPHICS ILLUSTRATOR Work Phone: [facility] 12-31-2024 09:16-0400 Systolic blood pressure 110 mm[Hg] Mark Moomaw PEDIATRIC PHYSICIAN ASSISTANT.COMPUTER GRAPHICS ILLUSTRATOR Work Phone: [facility] 12-17-2024 10:17-0400 Diastolic blood pressure 66 mm[Hg] No Primary Care Physician [facility] 12-17-2024 10:17-0400 Heart rate 60 /min No Primary Care Physician [facility] 12-17-2024 10:17-0400 Respiratory rate 18 /min No Primary Care Physician [facility] 12-17-2024 10:17-0400 SaO2% (BldA) [Mass fraction] 98 % No Primary Care Physician [facility] 12-17-2024 10:17-0400 Systolic blood pressure 102 mm[Hg] No Primary Care Physician [facility] 12-10-2024 08:55-0400 Body temperature 98.3 [degF] No Primary Care Physician [facility] 12-10-2024 08:55-0400 Diastolic blood pressure 79 mm[Hg] No Primary Care Physician [facility] 12-10-2024 08:55-0400 Heart rate 58 /min No Primary Care Physician [facility] 12-10-2024 08:55-0400 Respiratory rate 18 /min No Primary Care Physician [facility] 12-10-2024 08:55-0400 SaO2% (BldA) [Mass fraction] 100 % No Primary Care Physician [facility] 12-10-2024 08:55-0400 Systolic blood pressure 122 mm[Hg] No Primary Care Physician [facility] 12-08-2024 13:41-0400 Body height 162.56 cm No Primary Care Physician [facility] 12-08-2024 13:41-0400 Body weight 60.2 kg No Primary Care Physician [facility] 12-08-2024 08:18-0400 Body mass index (BMI) [Ratio] 22.8 kg/m2 No Primary Care Physician [facility] 12-08-2024 07:44-0400 Body temperature 98.6 [degF] No Primary Care Physician [facility] 12-08-2024 07:44-0400 Diastolic blood pressure 87 mm[Hg] No Primary Care Physician [facility] 12-08-2024 07:44-0400 Heart rate 57 /min No Primary Care Physician [facility] 12-08-2024 07:44-0400 Respiratory rate 20 /min No Primary Care Physician [facility] 12-08-2024 07:44-0400 SaO2% (BldA) [Mass fraction] 100 % No Primary Care Physician [facility] 12-08-2024 07:44-0400 Systolic blood pressure 112 mm[Hg] No Primary Care Physician [facility] 12-08-2024 06:03-0400 Body height 162.56 cm No Primary Care Physician [facility] 12-08-2024 06:03-0400 Body mass index (BMI) [Ratio] 22.8 kg/m2 No Primary Care Physician [facility] 12-08-2024 06:03-0400 Body weight 60.2 kg No Primary Care Physician [facility] 12-07-2024 23:15-0400 Body temperature 97.8 [degF] No Primary Care Physician [facility] 12-07-2024 23:15-0400 Diastolic blood pressure 96 mm[Hg] No Primary Care Physician [facility] 12-07-2024 23:15-0400 Heart rate 96 /min No Primary Care Physician [facility] 12-07-2024 23:15-0400 Respiratory rate 15 /min No Primary Care Physician [facility] 12-07-2024 23:15-0400 SaO2% (BldA) [Mass fraction] 97 % No Primary Care Physician [facility] 12-07-2024 23:15-0400 Systolic blood pressure 130 mm[Hg] No Primary Care Physician [facility] 12-07-2024 21:09-0400 Body height 162.56 cm No Primary Care Physician [facility] 12-07-2024 21:09-0400 Body mass index (BMI) [Ratio] 22.6 kg/m2 No Primary Care Physician [facility] 12-07-2024 21:09-0400 Body weight 59.78 kg No Primary Care Physician [facility] 12-05-2024 12:53-0400 Body temperature 97.6 [degF] No Primary Care Physician [facility] 12-05-2024 12:53-0400 Diastolic blood pressure 68 mm[Hg] No Primary Care Physician [facility] 12-05-2024 12:53-0400 Heart rate 64 /min No Primary Care Physician [facility] 12-05-2024 12:53-0400 Respiratory rate 16 /min No Primary Care Physician [facility] 12-05-2024 12:53-0400 SaO2% (BldA) [Mass fraction] 100 % No Primary Care Physician [facility] 12-05-2024 12:53-0400 Systolic blood pressure 109 mm[Hg] No Primary Care Physician [facility] 12-05-2024 10:40-0400 Body height 162.56 cm No Primary Care Physician [facility] 12-05-2024 10:40-0400 Body mass index (BMI) [Ratio] 26.4 kg/m2 No Primary Care Physician [facility] 12-05-2024 10:40-0400 Body weight 70 kg No Primary Care Physician [facility] 11-15-2024 16:10-0400 Body mass index (BMI) [Ratio] 22.14 kg/m2 Tran Gaytan APRN.CNM Work Phone: [facility] 11-15-2024 16:10-0400 Body weight 59.42 kg Tran Gaytan APRN.CNM Work Phone: [facility] 11-15-2024 16:10-0400 Diastolic blood pressure 76 mm[Hg] Tran Gaytan PEDIATRIC PHYSICIAN ASSISTANT.CNM Work Phone: [facility] 11-15-2024 16:10-0400 Systolic blood pressure 108 mm[Hg] Tran Gaytan PEDIATRIC PHYSICIAN ASSISTANT.CNM Work Phone: [facility] 10-21-2024 17:00-0400 Body mass index (BMI) [Ratio] 23.47 kg/m2 Zhanna Hazel APRN.COMPUTER GRAPHICS ILLUSTRATOR Work Phone: [facility] 10-21-2024 17:00-0400 Body temperature 97 [degF] Zhanna Hazel APRN.COMPUTER GRAPHICS ILLUSTRATOR Work Phone: [facility] 10-21-2024 17:00-0400 Body weight 63 kg Zhanna Hazel APRN.COMPUTER GRAPHICS ILLUSTRATOR Work Phone: [facility] 10-21-2024 17:00-0400 Diastolic blood pressure 68 mm[Hg] Zhanna Hazel APRN.COMPUTER GRAPHICS ILLUSTRATOR Work Phone: [facility] 10-21-2024 17:00-0400 Heart rate 78 /min Zhanna Hazel APRN.COMPUTER GRAPHICS ILLUSTRATOR Work Phone: [facility] 10-21-2024 17:00-0400 Respiratory rate 18 /min Zhanna Hazel APRN.COMPUTER GRAPHICS ILLUSTRATOR Work Phone: [facility] 10-21-2024 17:00-0400 SaO2% (BldA) [Mass fraction] 98 % Zhanna Hazel APRN.COMPUTER GRAPHICS ILLUSTRATOR Work Phone: [facility] 10-21-2024 17:00-0400 Systolic blood pressure 101 mm[Hg] Zhanna Hazel APRN.COMPUTER GRAPHICS ILLUSTRATOR Work Phone: [facility] 08-17-2024 01:23-0400 Body temperature 98.7 [degF] No Primary Care Physician [facility] 08-17-2024 01:23-0400 Diastolic blood pressure 71 mm[Hg] No Primary Care Physician [facility] 08-17-2024 01:23-0400 Heart rate 88 /min No Primary Care Physician [facility] 08-17-2024 01:23-0400 Respiratory rate 16 /min No Primary Care Physician [facility] 08-17-2024 01:23-0400 SaO2% (BldA) [Mass fraction] 98 % No Primary Care Physician [facility] 08-17-2024 01:23-0400 Systolic blood pressure 123 mm[Hg] No Primary Care Physician [facility] 08-16-2024 23:40-0400 Body height 162.56 cm No Primary Care Physician [facility] 08-16-2024 23:40-0400 Body mass index (BMI) [Ratio] 27.7 kg/m2 No Primary Care Physician [facility] 08-16-2024 23:40-0400 Body weight 73.3 kg No Primary Care Physician [facility] 07-28-2024 13:26-0400 Body mass index (BMI) [Ratio] 27.48 kg/m2 Tran Plotts PEDIATRIC PHYSICIAN ASSISTANT.CNM Work Phone: [facility] 07-28-2024 13:26-0400 Body weight 73.75 kg Tran Plotts PEDIATRIC PHYSICIAN ASSISTANT.CNM Work Phone: [facility] 07-28-2024 13:26-0400 Diastolic blood pressure 60 mm[Hg] Tran Plotts PEDIATRIC PHYSICIAN ASSISTANT.CNM Work Phone: [facility] 07-28-2024 13:26-0400 Systolic blood pressure 118 mm[Hg] Tran Plotts PEDIATRIC PHYSICIAN ASSISTANT.CNM Work Phone: [facility] 06-17-2024 13:21-0500 Body mass index (BMI) [Ratio] 27.04 kg/m2 Tran Plotts PEDIATRIC PHYSICIAN ASSISTANT.CNM Work Phone: [facility] 06-17-2024 13:21-0500 Body weight 72.58 kg Tran Plotts PEDIATRIC PHYSICIAN ASSISTANT.CNM Work Phone: [facility] 06-17-2024 13:21-0500 Diastolic blood pressure 64 mm[Hg] Tran Plotts PEDIATRIC PHYSICIAN ASSISTANT.CNM Work Phone: [facility] 06-17-2024 13:21-0500 Systolic blood pressure 96 mm[Hg] Tran Plotts PEDIATRIC PHYSICIAN ASSISTANT.CNM Work Phone: [facility] 05-27-2024 14:00-0500 SaO2% (BldA) [Mass fraction] 99 % No Primary Care Physician [facility] 05-27-2024 08:00-0500 Body temperature 97 [degF] No Primary Care Physician [facility] 05-27-2024 08:00-0500 Diastolic blood pressure 71 mm[Hg] No Primary Care Physician [facility] 05-27-2024 08:00-0500 Heart rate 82 /min No Primary Care Physician [facility] 05-27-2024 08:00-0500 Respiratory rate 16 /min No Primary Care Physician [facility] 05-27-2024 08:00-0500 Systolic blood pressure 110 mm[Hg] No Primary Care Physician [facility] 05-25-2024 11:00-0500 Body mass index (BMI) [Percentile] Per age and sex 94.1 % No Primary Care Physician [facility] 05-25-2024 11:00-0500 Body mass index (BMI) [Ratio] 30.7 kg/m2 No Primary Care Physician [facility] 05-25-2024 11:00-0500 Body weight 81.3 kg No Primary Care Physician [facility] 05-18-2024 14:35-0500 Body mass index (BMI) [Ratio] 29.91 kg/m2 Cherry Schuler MD Work Phone: [facility] 05-18-2024 14:35-0500 Body weight 80.29 kg Cherry Schuler MD Work Phone: [facility] 05-18-2024 14:35-0500 Diastolic blood pressure 70 mm[Hg] Cherry Schuler MD Work Phone: [facility] 05-18-2024 14:35-0500 Systolic blood pressure 110 mm[Hg] Cherry Schuler MD Work Phone: [facility] 05-11-2024 10:26-0500 Body mass index (BMI) [Ratio] 29.74 kg/m2 Anitra Caldwell APRN.CNM Work Phone: [facility] 05-11-2024 10:26-0500 Body weight 79.83 kg Anitra Caldwell APRN.CNM Work Phone: [facility] 05-11-2024 10:26-0500 Diastolic blood pressure 70 mm[Hg] Anitra Caldwell PEDIATRIC PHYSICIAN ASSISTANT.CNM Work Phone: [facility] 05-11-2024 10:26-0500 Systolic blood pressure 112 mm[Hg] Anitra Caldwell PEDIATRIC PHYSICIAN ASSISTANT.CNM Work Phone: [facility] 05-05-2024 14:18-0500 Body mass index (BMI) [Ratio] 29.41 kg/m2 Tran Plotts PEDIATRIC PHYSICIAN ASSISTANT.CNM Work Phone: [facility] 05-05-2024 14:18-0500 Body weight 78.93 kg Tran Plotts PEDIATRIC PHYSICIAN ASSISTANT.CNM Work Phone: [facility] 05-05-2024 14:18-0500 Diastolic blood pressure 70 mm[Hg] Tran Plotts PEDIATRIC PHYSICIAN ASSISTANT.CNM Work Phone: [facility] 05-05-2024 14:18-0500 Systolic blood pressure 102 mm[Hg] Tran Plotts PEDIATRIC PHYSICIAN ASSISTANT.CNM Work Phone: [facility] 04-21-2024 14:04-0500 Body mass index (BMI) [Ratio] 28.22 kg/m2 Tran Plotts PEDIATRIC PHYSICIAN ASSISTANT.CNM Work Phone: [facility] 04-21-2024 14:04-0500 Body weight 75.75 kg Tran Plotts PEDIATRIC PHYSICIAN ASSISTANT.CNM Work Phone: [facility] 04-21-2024 14:04-0500 Diastolic blood pressure 68 mm[Hg] Tran Plotts PEDIATRIC PHYSICIAN ASSISTANT.CNM Work Phone: [facility] 04-21-2024 14:04-0500 Systolic blood pressure 106 mm[Hg] Tran Plotts PEDIATRIC PHYSICIAN ASSISTANT.CNM Work Phone: [facility] 03-29-2024 15:30-0500 Body mass index (BMI) [Ratio] 27.72 kg/m2 Tran Plotts PEDIATRIC PHYSICIAN ASSISTANT.CNM Work Phone: [facility] 03-29-2024 15:30-0500 Body weight 74.39 kg Tran Plotts PEDIATRIC PHYSICIAN ASSISTANT.CNM Work Phone: [facility] 03-29-2024 15:30-0500 Diastolic blood pressure 70 mm[Hg] Tran Gaytan PEDIATRIC PHYSICIAN ASSISTANT.CNM Work Phone: [facility] 03-29-2024 15:30-0500 Systolic blood pressure 106 mm[Hg] Tran Gaytan PEDIATRIC PHYSICIAN ASSISTANT.CNM Work Phone: [facility] 03-18-2024 12:42-0400 Body mass index (BMI) [Ratio] 27.31 kg/m2 Melody Athy PA-C Work Phone: [facility] 03-18-2024 12:42-0400 Body temperature 96.91 [degF] Melody Athy PA-C Work Phone: [facility] 03-18-2024 12:42-0400 Body weight 73.3 kg Melody Athy PA-C Work Phone: [facility] 03-18-2024 12:42-0400 Diastolic blood pressure 69 mm[Hg] Melody Athy PA-C Work Phone: [facility] 03-18-2024 12:42-0400 Heart rate 97 /min Melody Athy PA-C Work Phone: [facility] 03-18-2024 12:42-0400 Respiratory rate 20 /min Melody Athy PA-C Work Phone: [facility] 03-18-2024 12:42-0400 SaO2% (BldA) [Mass fraction] 99 % Melody Athy PA-C Work Phone: [facility] 03-18-2024 12:42-0400 Systolic blood pressure 107 mm[Hg] Melody Athy PA-C Work Phone: [facility] 03-16-2024 15:23-0400 Body mass index (BMI) [Ratio] 27.21 kg/m2 Anitra Caldwell APRN.CNM Work Phone: [facility] 03-16-2024 15:23-0400 Body weight 73.03 kg Anitra Caldwell PEDIATRIC PHYSICIAN ASSISTANT.CNM Work Phone: [facility] 03-16-2024 15:23-0400 Diastolic blood pressure 68 mm[Hg] Anitra Caldwell PEDIATRIC PHYSICIAN ASSISTANT.CNM Work Phone: [facility] 03-16-2024 15:23-0400 Systolic blood pressure 118 mm[Hg] Anitra Caldwell PEDIATRIC PHYSICIAN ASSISTANT.CNM Work Phone: [facility] 02-25-2024 14:23-0400 Body mass index (BMI) [Ratio] 26.63 kg/m2 Tran Plotkevin PEDIATRIC PHYSICIAN ASSISTANT.CNM Work Phone: [facility] 02-25-2024 14:23-0400 Body weight 71.49 kg Tran Plotkevin PEDIATRIC PHYSICIAN ASSISTANT.CNM Work Phone: [facility] 02-25-2024 14:23-0400 Diastolic blood pressure 68 mm[Hg] Tran Plotts PEDIATRIC PHYSICIAN ASSISTANT.CNM Work Phone: [facility] 02-25-2024 14:23-0400 Systolic blood pressure 110 mm[Hg] Tran Plotts PEDIATRIC PHYSICIAN ASSISTANT.CNM Work Phone: [facility] 01-23-2024 10:42-0400 Body mass index (BMI) [Ratio] 24.67 kg/m2 Anitra Caldwell PEDIATRIC PHYSICIAN ASSISTANT.CNM Work Phone: [facility] 01-23-2024 10:42-0400 Body weight 66.22 kg Anitra Caldwell PEDIATRIC PHYSICIAN ASSISTANT.CNM Work Phone: [facility] 01-23-2024 10:42-0400 Diastolic blood pressure 64 mm[Hg] Anitra Caldwell PEDIATRIC PHYSICIAN ASSISTANT.CNM Work Phone: [facility] 01-23-2024 10:42-0400 Systolic blood pressure 114 mm[Hg] Anitra Caldwell PEDIATRIC PHYSICIAN ASSISTANT.CNM Work Phone: [facility] 12-23-2023 10:21-0400 Body mass index (BMI) [Ratio] 23.66 kg/m2 Anitra Caldwell PEDIATRIC PHYSICIAN ASSISTANT.CNM Work Phone: [facility] 12-23-2023 10:21-0400 Body weight 63.5 kg Anitra Caldwell PEDIATRIC PHYSICIAN ASSISTANT.CNM Work Phone: [facility] 12-23-2023 10:21-0400 Diastolic blood pressure 68 mm[Hg] Anitra Caldwell PEDIATRIC PHYSICIAN ASSISTANT.CNM Work Phone: [facility] 12-23-2023 10:21-0400 Systolic blood pressure 100 mm[Hg] Anitra Caldwell PEDIATRIC PHYSICIAN ASSISTANT.CNM Work Phone: [facility] 12-12-2023 14:50-0400 Body mass index (BMI) [Ratio] 23.1 kg/m2 Willard Hsu PEDIATRIC PHYSICIAN ASSISTANT.COMPUTER GRAPHICS ILLUSTRATOR Work Phone: [facility] 12-12-2023 14:50-0400 Body temperature 98.01 [degF] Willard Hsu PEDIATRIC PHYSICIAN ASSISTANT.COMPUTER GRAPHICS ILLUSTRATOR Work Phone: [facility] 12-12-2023 14:50-0400 Body weight 62 kg Willard Hsu PEDIATRIC PHYSICIAN ASSISTANT.COMPUTER GRAPHICS ILLUSTRATOR Work Phone: [facility] 12-12-2023 14:50-0400 Diastolic blood pressure 77 mm[Hg] Willard Hsu PEDIATRIC PHYSICIAN ASSISTANT.COMPUTER GRAPHICS ILLUSTRATOR Work Phone: [facility] 12-12-2023 14:50-0400 Heart rate 102 /min Willard Hsu PEDIATRIC PHYSICIAN ASSISTANT.COMPUTER GRAPHICS ILLUSTRATOR Work Phone: [facility] 12-12-2023 14:50-0400 Respiratory rate 18 /min Willard Hsu PEDIATRIC PHYSICIAN ASSISTANT.COMPUTER GRAPHICS ILLUSTRATOR Work Phone: [facility] 12-12-2023 14:50-0400 SaO2% (BldA) [Mass fraction] 99 % Willard Hsu PEDIATRIC PHYSICIAN ASSISTANT.COMPUTER GRAPHICS ILLUSTRATOR Work Phone: [facility] 12-12-2023 14:50-0400 Systolic blood pressure 116 mm[Hg] Willard Hsu PEDIATRIC PHYSICIAN ASSISTANT.COMPUTER GRAPHICS ILLUSTRATOR Work Phone: [facility] 11-28-2023 14:18-0400 Body mass index (BMI) [Ratio] 22.71 kg/m2 Anitra Caldwell PEDIATRIC PHYSICIAN ASSISTANT.CNM Work Phone: [facility] 11-28-2023 14:18-0400 Body weight 60.96 kg Anitra Caldwell PEDIATRIC PHYSICIAN ASSISTANT.CNM Work Phone: [facility] 11-28-2023 14:18-0400 Diastolic blood pressure 58 mm[Hg] Anitra Caldwell PEDIATRIC PHYSICIAN ASSISTANT.CNM Work Phone: [facility] 11-28-2023 14:18-0400 Systolic blood pressure 98 mm[Hg] Anitra Caldwell PEDIATRIC PHYSICIAN ASSISTANT.CNM Work Phone: [facility] 11-14-2023 13:06-0400 Body height 163.8 cm Anitra Caldwell PEDIATRIC PHYSICIAN ASSISTANT.CNM Work Phone: [facility] 11-14-2023 13:06-0400 Body mass index (BMI) [Ratio] 22.81 kg/m2 Anitra Caldwell PEDIATRIC PHYSICIAN ASSISTANT.CNM Work Phone: [facility] 11-14-2023 13:06-0400 Body weight 61.24 kg Anitra Caldwell PEDIATRIC PHYSICIAN ASSISTANT.CNM Work Phone: [facility] 11-14-2023 13:06-0400 Diastolic blood pressure 60 mm[Hg] Anitra Caldwell PEDIATRIC PHYSICIAN ASSISTANT.CNM Work Phone: [facility] 11-14-2023 13:06-0400 Systolic blood pressure 98 mm[Hg] Anitra Caldwell PEDIATRIC PHYSICIAN ASSISTANT.CNM Work Phone: [facility] 10-25-2023 12:43-0400 Body temperature 97.7 [degF] Floyd Louise PEDIATRIC PHYSICIAN ASSISTANT.COMPUTER GRAPHICS ILLUSTRATOR Work Phone: [facility] 10-25-2023 12:43-0400 Body weight 59.5 kg Floyd Louise PEDIATRIC PHYSICIAN ASSISTANT.COMPUTER GRAPHICS ILLUSTRATOR Work Phone: [facility] 10-25-2023 12:43-0400 Diastolic blood pressure 72 mm[Hg] Floyd Louise PEDIATRIC PHYSICIAN ASSISTANT.COMPUTER GRAPHICS ILLUSTRATOR Work Phone: [facility] 10-25-2023 12:43-0400 Heart rate 98 /min Floyd Estrellaphyllis PEDIATRIC PHYSICIAN ASSISTANT.COMPUTER GRAPHICS ILLUSTRATOR Work Phone: [facility] 10-25-2023 12:43-0400 Respiratory rate 16 /min Floyd Estrellaphyllis PEDIATRIC PHYSICIAN ASSISTANT.COMPUTER GRAPHICS ILLUSTRATOR Work Phone: [facility] 10-25-2023 12:43-0400 SaO2% (BldA) [Mass fraction] 99 % Floyd Marileewestonphyllis PEDIATRIC PHYSICIAN ASSISTANT.COMPUTER GRAPHICS ILLUSTRATOR Work Phone: [facility] 10-25-2023 12:43-0400 Systolic blood pressure 128 mm[Hg] Floyd Estrellaphyllis PEDIATRIC PHYSICIAN ASSISTANT.COMPUTER GRAPHICS ILLUSTRATOR Work Phone: [facility] 08-27-2023 16:32-0400 Body temperature 98.29 [degF] Zhanna Hazel APRN.COMPUTER GRAPHICS ILLUSTRATOR Work Phone: [facility] 08-27-2023 16:32-0400 Body weight 60.6 kg Zhanna Hazel APRN.COMPUTER GRAPHICS ILLUSTRATOR Work Phone: [facility] 08-27-2023 16:32-0400 Diastolic blood pressure 64 mm[Hg] Zhanna Hazel APRN.COMPUTER GRAPHICS ILLUSTRATOR Work Phone: [facility] 08-27-2023 16:32-0400 Heart rate 92 /min Zhanna Hazel APRN.COMPUTER GRAPHICS ILLUSTRATOR Work Phone: [facility] 08-27-2023 16:32-0400 Respiratory rate 18 /min Zhanna Hazel APRN.COMPUTER GRAPHICS ILLUSTRATOR Work Phone: [facility] 08-27-2023 16:32-0400 SaO2% (BldA) [Mass fraction] 97 % Zhanna Hazel APRN.COMPUTER GRAPHICS ILLUSTRATOR Work Phone: [facility] 08-27-2023 16:32-0400 Systolic blood pressure 106 mm[Hg] Zhanna Hazel APRN.COMPUTER GRAPHICS ILLUSTRATOR Work Phone: [facility] 06-03-2023 06:20-0500 Heart rate 82 /min [facility] 06-03-2023 06:20-0500 Respiratory rate 16 /min [facility] 06-03-2023 06:20-0500 SaO2% (BldA) [Mass fraction] 99 % [facility] 06-03-2023 05:00-0500 Diastolic blood pressure 70 mm[Hg] [facility] 06-03-2023 05:00-0500 Systolic blood pressure 99 mm[Hg] [facility] 06-03-2023 00:42-0500 Body height 160.02 cm [facility] 06-03-2023 00:42-0500 Body mass index (BMI) [Percentile] Per age and sex 82 % [facility] 06-03-2023 00:42-0500 Body mass index (BMI) [Ratio] 25.3 kg/m2 [facility] 06-03-2023 00:42-0500 Body temperature 97.7 [degF] [facility] 06-03-2023 00:42-0500 Body weight 64.9 kg [facility] 04-02-2023 14:35-0500 Body temperature 97.5 [degF] John Crowe MD Work Phone: [facility] 04-02-2023 14:35-0500 Body weight 63.41 kg John Crowe MD Work Phone: [facility] 04-02-2023 14:35-0500 Diastolic blood pressure 74 mm[Hg] John Crowe MD Work Phone: [facility] 04-02-2023 14:35-0500 Heart rate 96 /min John Crowe MD Work Phone: [facility] 04-02-2023 14:35-0500 Respiratory rate 21 /min John Crowe MD Work Phone: [facility] 04-02-2023 14:35-0500 SaO2% (BldA) [Mass fraction] 100 % John Crowe MD Work Phone: [facility] 04-02-2023 14:35-0500 Systolic blood pressure 120 mm[Hg] John Crowe MD Work Phone: [facility] 01-22-2023 18:15-0400 Body temperature 98.29 [degF] Floyd Pendlebury PEDIATRIC PHYSICIAN ASSISTANT.COMPUTER GRAPHICS ILLUSTRATOR Work Phone: [facility] 01-22-2023 18:15-0400 Body weight 63.41 kg Flyod Pendlebury PEDIATRIC PHYSICIAN ASSISTANT.COMPUTER GRAPHICS ILLUSTRATOR Work Phone: [facility] 01-22-2023 18:15-0400 Diastolic blood pressure 80 mm[Hg] Floyd Pendlebury PEDIATRIC PHYSICIAN ASSISTANT.COMPUTER GRAPHICS ILLUSTRATOR Work Phone: [facility] 01-22-2023 18:15-0400 Heart rate 71 /min Floyd Pendlebury PEDIATRIC PHYSICIAN ASSISTANT.COMPUTER GRAPHICS ILLUSTRATOR Work Phone: [facility] 01-22-2023 18:15-0400 Respiratory rate 18 /min Floyd Pendlebury PEDIATRIC PHYSICIAN ASSISTANT.COMPUTER GRAPHICS ILLUSTRATOR Work Phone: [facility] 01-22-2023 18:15-0400 SaO2% (BldA) [Mass fraction] 97 % Floyd Pendlebury PEDIATRIC PHYSICIAN ASSISTANT.COMPUTER GRAPHICS ILLUSTRATOR Work Phone: [facility] 01-22-2023 18:15-0400 Systolic blood pressure 110 mm[Hg] Floyd Pendlebury PEDIATRIC PHYSICIAN ASSISTANT.COMPUTER GRAPHICS ILLUSTRATOR Work Phone: [facility] 11-21-2022 13:30-0400 Body temperature 98.71 [degF] Floyd Pendlebury PEDIATRIC PHYSICIAN ASSISTANT.COMPUTER GRAPHICS ILLUSTRATOR Work Phone: [facility] 11-21-2022 13:30-0400 Body weight 61.78 kg Floyd Pendlebury PEDIATRIC PHYSICIAN ASSISTANT.COMPUTER GRAPHICS ILLUSTRATOR Work Phone: [facility] 11-21-2022 13:30-0400 Diastolic blood pressure 62 mm[Hg] Floyd Pendlebury PEDIATRIC PHYSICIAN ASSISTANT.COMPUTER GRAPHICS ILLUSTRATOR Work Phone: [facility] 11-21-2022 13:30-0400 Heart rate 89 /min Floyd Pendlebury PEDIATRIC PHYSICIAN ASSISTANT.COMPUTER GRAPHICS ILLUSTRATOR Work Phone: [facility] 11-21-2022 13:30-0400 Respiratory rate 18 /min Floyd Pendlebury PEDIATRIC PHYSICIAN ASSISTANT.COMPUTER GRAPHICS ILLUSTRATOR Work Phone: [facility] 11-21-2022 13:30-0400 SaO2% (BldA) [Mass fraction] 98 % Floyd Louise APRN.COMPUTER GRAPHICS ILLUSTRATOR Work Phone: [facility] 11-21-2022 13:30-0400 Systolic blood pressure 110 mm[Hg] Floyd Louise APRN.COMPUTER GRAPHICS ILLUSTRATOR Work Phone: [facility] 04-08-2022 17:25-0500 Body temperature 98.8 [degF] Zhanna Hazel APRN.COMPUTER GRAPHICS ILLUSTRATOR Work Phone: [facility] 04-08-2022 17:25-0500 Body weight 62.41 kg Zhanna Hazel APRN.COMPUTER GRAPHICS ILLUSTRATOR Work Phone: [facility] 04-08-2022 17:25-0500 Diastolic blood pressure 76 mm[Hg] Zhanna Hazel APRN.COMPUTER GRAPHICS ILLUSTRATOR Work Phone: [facility] 04-08-2022 17:25-0500 Heart rate 94 /min Zhanna Hazel APRN.COMPUTER GRAPHICS ILLUSTRATOR Work Phone: [facility] 04-08-2022 17:25-0500 Respiratory rate 18 /min Zhanna Hazel APRN.COMPUTER GRAPHICS ILLUSTRATOR Work Phone: [facility] 04-08-2022 17:25-0500 SaO2% (BldA) [Mass fraction] 99 % Zhanna Hazel APRN.COMPUTER GRAPHICS ILLUSTRATOR Work Phone: [facility] 04-08-2022 17:25-0500 Systolic blood pressure 122 mm[Hg] Zhanna Hazel APRN.COMPUTER GRAPHICS ILLUSTRATOR Work Phone: [facility] 01-01-2022 13:38-0400 Body height 160 cm Pac 2 Work Phone: [facility] 01-01-2022 13:38-0400 Body mass index (BMI) [Percentile] Per age and sex 89.08 % Pacc 2 Work Phone: [facility] 01-01-2022 13:38-0400 Body weight 68.04 kg Pac 2 Work Phone: [facility] 01-01-2022 13:38-0400 Respiratory rate 16 /min Pacc 2 Work Phone: [facility] 03-20-2017 12:49-0400 BMI (Body Mass Index) 19.08 kg/m2 Javi WEAVER [facility] Work Phone: 03-20-2017 12:49-0400 Body Temperature 98.8 [degF] Javi WEAVER [facility] Work Phone: 03-20-2017 12:49-0400 BP Diastolic 72 mm[Hg] Javi WEAVER [facility] Work Phone: 03-20-2017 12:49-0400 BP Systolic 108 mm[Hg] Javi WEAVER [facility] Work Phone: 03-20-2017 12:49-0400 Height 154.94 cm Javi WEAVER [facility] Work Phone: 03-20-2017 12:49-0400 Pulse (Heart Rate) 97 /min Javi WEAVER [facility] Work Phone: 03-20-2017 12:49-0400 Respiratory Rate 14 /min Javi WEAVER [facility] Work Phone: 03-20-2017 12:49-0400 Weight 45.81 kg Javi WEAVER [facility] Work Phone: Encounters Encounter Date Encounter Type Care Provider Facility Start: 03-17-2025 End: 03-17-2025 ambulatory NICOLE LU Facility:[facility] Start: 01-10-2025 End: 01-10-2025 Emergency department patient visit No Primary Care Physician -Emergency Department Work Phone: Start: 01-06-[address] Basilio cosby MD -Occupational Therapy Work Phone: Start: 01-06-2025 ambulatory Basilio Min Facility:[facility] Start: 12-31-2024 End: 12-31-2024 Patient encounter procedure Mark Martinez PEDIATRIC PHYSICIAN ASSISTANT.COMPUTER GRAPHICS ILLUSTRATOR Work Phone: [facility] Comment on above: Irritant contact nathaly matitis due to other agents (Primary Dx); Acute bacterial conjunctivitis of left eye Start: 12-31-2024 End: 12-31-2024 ambulatory MARK MARTINEZ Facility:[facility] Start: 12-27-2024 End: 12-27-2024 Refill Tran Gaytan PEDIATRIC PHYSICIAN ASSISTANT.CNM Work Phone: OB/Gynecology Comment on above: Refill Request Start: 12-17-2024 End: 12-17-[address] Basilio Min MD -[facility] Work Phone: Start: 12-17-2024 End: 12-17-2024 ambulatory No Primary Care Physician -[facility] Start: 12-13-2024 ambulatory Basilio Min Facility:[facility] Start: 12-10-2024 Non-patient / Non-visit Dr. Yvonne Whittington MD -[facility] Work Phone: Start: 12-10-2024 Non-patient / Non-visit Dr. Basilio nguyen MD -[facility] Start: 12-09-2024 Non-patient / Non-visit Dr. Yvonne Whittington MD -[facility] Work Phone: Start: 12-09-2024 Non-patient / Non-visit Dr. Basilio nguyen MD -[facility] Start: 12-08-2024 Non-patient / Non-visit Dr. Yvonne Whittington MD -[facility] Work Phone: Start: 12-08-2024 ambulatory Basilio Min Facility:[facility] Start: 12-08-2024 End: 12-10-2024 Evaluation and management of inpatient Dr. Gilbert Whittington MD -[facility] 3 Work Phone: Start: 12-07-2024 End: 12-07-2024 Emergency department patient visit No Primary Care Physician -Emergency Department Work Phone: Start: 12-05-2024 End: 12-05-2024 ambulatory Samara Clifford RN NURSE RADIO FREQUENCY ENGINEER Comment on above: Vaginal Bleeding Start: 12-05-2024 End: 12-05-2024 Emergency department patient visit No Primary Care Physician -Emergency Department Work Phone: Start: 11-15-2024 End: 11-15-2024 Patient encounter procedure Tran Gaytan PEDIATRIC PHYSICIAN ASSISTANT.CNM Work Phone: OB/Gynecology Comment on above: Encounter for IUD in sertion (Primary Dx) Start: 11-15-2024 End: 11-15-2024 ambulatory [facility] Facility:[facility] Start: 11-14-2024 End: 11-15-2024 Refill Anitra Caldwell PEDIATRIC PHYSICIAN ASSISTANT.CNM Work Phone: OB/Gynecology Comment on above: Refill Request Start: 10-21-2024 End: 10-21-2024 Patient encounter procedure Zhanna Hazel PEDIATRIC PHYSICIAN ASSISTANT.COMPUTER GRAPHICS ILLUSTRATOR Work Phone: [facility] Comment on above: Acute cough (Primary Dx); Rhinosinusitis Start: 10-21-2024 End: 10-21-2024 Subsequent hospital visit by physician Xr [facility] Gisela Work Phone: Radiology Comment on above: Acute cough [R05.1] Start: 10-21-2024 End: 10-21-2024 ambulatory ZHANNA HAZEL Facility:[facility] Start: 09-17-2024 End: 09-17-2024 ambulatory NATALIIA VAIL Facility:[facility] Start: 08-16-2024 End: 08-17-2024 Emergency department patient visit No Primary Care Physician -Emergency Department Work Phone: Start: 08-02-2024 End: 08-02-2024 Refill Tran Gaytan PEDIATRIC PHYSICIAN ASSISTANT.CNM Work Phone: OB/Gynecology Comment on above: Refill Request Start: 07-28-2024 End: 07-28-2024 ambulatory TRAN GAYTAN Facility:[facility] Start: 07-28-2024 End: 07-28-2024 Patient encounter procedure Tran Gaytan PEDIATRIC PHYSICIAN ASSISTANT.CNM Work Phone: OB/Gynecology Comment on above: care and examination (Primary Dx); Encounter for IUD insertion; Post depression; Generalized anxiety disorder Start: 06-25-2024 End: 06-25-2024 ambulatory [facility] Facility:[facility] Start: 06-25-2024 End: 06-25-2024 Patient encounter procedure Tran Gaytan PEDIATRIC PHYSICIAN ASSISTANT.CNM Work Phone: OB/Gynecology Comment on above: Post depressi on (Primary Dx); Generalized anxiety disorder Start: 06-24-2024 End: 06-24-2024 Orders Only Nataliia PAUL Work Phone: Psychiatry Comment on above: Post depressi on (Primary Dx) Appointment Start: 06-17-2024 End: 06-17-2024 [facility] Facility:[facility] Start: 06-17-2024 End: 06-17-2024 Patient encounter procedure Tran Ledbetterkevin PEDIATRIC PHYSICIAN ASSISTANT.CNM Work Phone: OB/Gynecology Comment on above: 2 [...] Start: 05-11-2024 End: 05-11-2024 ambulatory ANITRA CALDWELL Facility:[facility] Start: 05-11-2024 End: 05-11-2024 Patient encounter procedure Anitra Javi CORDERO Work Phone: OB/Gynecology Comment on above: Supervision [...] in third trimester Start: 05-05-2024 End: 05-05-2024 [facility] Start: 04-22-2024 End: 04-22-2024 Telephone encounter Amelia Armstrong RN Obstetrics/Gynecolog y Comment on above: Fans Clerk - O ther (PRAF) Start: 04-21-2024 End: 04-21-2024 [facility] Start: 04-21-2024 End: 04-21-2024 Patient encounter procedure Tran Gaytan APRN.CNM Work Phone: OB/Gynecology Comment on above: 32 weeks gestation o f (Primary Dx); Encounter for supervision of normal first in third trimester; Low-lying placenta; Heartburn during in third trimester Encounter for ultras ound to check growth (Primary Dx); Suspected placental problem not found; 32 weeks gestation of Start: 03-29-2024 End: 03-29-2024 ambulatory TRAN GAYTAN Facility:[facility] Start: 03-29-2024 End: 03-29-2024 Patient encounter procedure Tran Gaytan APRN.CNM Work Phone: OB/Gynecology Comment on above: 29 weeks gestation o f (Primary Dx); Encounter for supervision of normal first in third trimester; Rubella non-immune status, antepartum; Low-lying placenta Start: 03-25-2024 End: 03-25-2024 Telephone encounter Robson Romero APRN.COMPUTER GRAPHICS ILLUSTRATOR Work Phone: OB/Gynecology Comment on above: Results Start: 03-25-2024 End: 03-25-2024 ambulatory ROBSON ROMERO Facility:[facility] Start: 03-21-2024 End: 03-21-2024 Emergency department patient visit No Primary Care Physician Facility:[facility] Start: 03-19-2024 End: 03-19-2024 Telephone encounter Anitra Caldwell APRN.CNM Work Phone: OB/Gynecology Start: 03-18-2024 End: 03-18-2024 Telephone encounter Robson Romero APRN.COMPUTER GRAPHICS ILLUSTRATOR Work Phone: OB/Gynecology Comment on above: Results Start: 03-18-2024 End: 03-18-2024 Patient encounter procedure Melody Love PA-C Work Phone: [facility] Comment on above: Viral URI (Primary D x) Start: 03-16-2024 End: 03-16-2024 Patient encounter procedure Anitra Caldwell APRN.CNAlexa Work Phone: OB/Gynecology Comment on above: Supervision of dixie l first teen in second trimester (Primary Dx); Need for vaccination; Heartburn during in third trimester; Low-lying placenta; Rubella non-immune status, antepartum; Generalized anxiety disorder; History of depression Start: 03-13-2024 End: 03-13-2024 ambulatory Ren Carlson Facility:[facility] Start: 02-25-2024 End: 02-25-2024 Patient encounter procedure Tran Gaytan APRN.CNM Work Phone: OB/Gynecology Comment on above: 24 weeks gestation o f (Primary Dx); Supervision of normal first teen in second trimester; Generalized anxiety disorder; Rubella non-immune status, antepartum; History of depression; Encounter for care in first trimester of first ; Heartburn during in second trimester Start: 02-25-2024 End: 02-26-2024 Telephone encounter Tran Gaytan APRN.CNM Work Phone: OB/Gynecology Comment on above: Centering Start: 02-12-2024 End: 02-12-2024 Refill Anitra Caldwell APRN.CNM Work Phone: OB/Gynecology Comment on above: Refill Request Start: 01-26-2024 End: 01-27-2024 Telephone encounter Amelia Armstrong RN Maternal Medic ine Comment on above: Fans Clerk - O ther (PRAF) ULTRASOUND Start: 01-23-2024 End: 01-23-2024 Patient encounter procedure [...] Work Phone: OB/Gynecology Start: 12-23-2023 End: 12-23-2023 Patient encounter procedure Anitra Caldwell APRN.CNM Work Phone: OB/Gynecology Comment on above: Supervision of dixie l first teen in second trimester (Primary Dx); 15 weeks gestation of ; Nausea and vomiting during ; Generalized anxiety disorder; History of depression; Rubella non-immune status, antepartum Start: 12-12-2023 End: 12-12-2023 Patient encounter procedure Willard Hsu PEDIATRIC PHYSICIAN ASSISTANT.COMPUTER GRAPHICS ILLUSTRATOR Work Phone: [facility] Comment on above: Nausea (Primary Dx) Start: 12-09-2023 Telephone encounter Anitra sigala PEDIATRIC PHYSICIAN ASSISTANT.CNM Work Phone: OB/Gynecology Comment on above: Nausea & Vomiting Start: 12-05-2023 Telephone encounter Anitra sigala PEDIATRIC PHYSICIAN ASSISTANT.CNM Work Phone: OB/Gynecology Start: 11-28-2023 Telephone encounter Anitra Co sta PEDIATRIC PHYSICIAN ASSISTANT.CNM Work Phone: OB/Gynecology Start: 11-28-2023 End: 11-28-2023 Patient encounter procedure Beef Tagger [facility] Work Phone: OB/Gynecology Comment on [...] End: 11-14-2023 Patient encounter procedure Anitra Caldwell PEDIATRIC PHYSICIAN ASSISTANT.CNM Work Phone: OB/Gynecology Comment on above: with uncer tain dates, antepartum (Primary Dx); Encounter for care in first trimester of first ; Generalized anxiety disorder; History of depression; Supervision of normal first teen in second trimester; Acute vaginitis; Nausea and vomiting during ; Normal first with uncertain date of LMP, antepartum Start: 11-13-2023 Telephone encounter Anitra sigala PEDIATRIC PHYSICIAN ASSISTANT.CNM Work Phone: OB/Gynecology Comment on above: Appointment Start: 11-11-2023 Telephone encounter Zayda Julio OA Ophthalmology Start: 11-11-2023 End: 11-11-2023 Patient encounter procedure Gretchen Brower OD Work Phone: Ophthalmology Comment on above: Myopia, bilateral (P rimary Dx) Start: 11-05-2023 End: 11-05-2023 Patient encounter procedure Willard Hsu ESAU.COMPUTER GRAPHICS ILLUSTRATOR Work Phone: [facility] Comment on above: Dizziness (Primary D x); Nausea and vomiting, unspecified vomiting type Start: 10-25-2023 End: 10-25-2023 Office outpatient visit 15 minutes Floyd Louise APRN.COMPUTER GRAPHICS ILLUSTRATOR Work Phone: [facility] Comment on above: Nausea (Primary Dx) Start: 09-02-2023 End: 09-02-2023 Admission to same day surgery center [facility] FISH P[employer]ER Work Phone: [facility] Comment on above: S/P knee surgery (Pr imary Dx) Start: 09-02-2023 End: 09-02-2023 ambulatory [facility] [employer] P[employer]ER Work Phone: [facility] Start: 08-29-2023 End: 08-29-2023 Subsequent hospital visit by physician Mri Radio [facility] Wstr (I-Stat/1.5t) Work Phone: Radiology Comment on above: S/P knee surgery [Z9 8.890] Start: 08-27-2023 End: 08-27-2023 Patient encounter procedure Zhanna Dylon CIFUENTES.COMPUTER GRAPHICS ILLUSTRATOR Work Phone: [facility] Comment on above: Nausea (Primary Dx) Start: 08-26-2023 End: 08-26-2023 Admission to same day surgery center Zain Kearney PT Work Phone: [facility] Comment on above: S/P knee surgery (Pr imary Dx) Start: 08-26-2023 End: 08-26-2023 ambulatory Zain Kearney PT Work Phone: [facility] Start: 08-19-2023 End: 08-19-2023 Admission to same day surgery center Zain Kearney PT Work Phone: [facility] Comment on above: S/P knee surgery Start: 08-19-2023 End: 08-19-2023 ambulatory Zain Kearney PT Work Phone: [facility] Start: 07-31-2023 End: 07-31-2023 Patient encounter procedure Mayda Solares DO Work Phone: Orthopaedics Comment on above: S/P knee surgery (Pr imary Dx); Loose body in knee, left knee Start: 07-31-2023 End: 07-31-2023 Subsequent hospital visit by physician Xr [facility] Juan Work Phone: Radiology Comment on above: Chronic pain of left knee [M25.562, G89.29] Start: 07-24-2023 Orders Only Mayda Islasemerygermaine DO Work Phone: Orthopaedics Comment on above: Chronic pain of left knee (Primary Dx) Start: 06-03-2023 End: 06-03-2023 Emergency department patient visit [facility]-Emergency Department Work Phone: Start: 04-18-2023 Emergency department patient visit Facility:[facility] Start: 04-02-2023 End: 04-02-2023 Patient encounter procedure John Crowe MD Work Phone: [facility] Comment on above: Sore throat (Primary Dx) Start: 02-18-2023 End: 02-18-2023 [facility] Work Phone: Radiology Comment on above: Pain [R52] Start: 01-22-2023 End: 01-22-2023 Office outpatient visit 25 minutes Floyd Louise PEDIATRIC PHYSICIAN ASSISTANT.COMPUTER GRAPHICS ILLUSTRATOR Work Phone: [facility] Comment on above: Rash (Primary Dx) Start: 11-21-2022 End: 11-21-2022 Office outpatient visit 15 minutes Floyd Louise PEDIATRIC PHYSICIAN ASSISTANT.COMPUTER GRAPHICS ILLUSTRATOR Work Phone: [facility] Comment on above: Sore throat (Primary Dx); URI, acute Start: 08-02-2022 End: 08-02-2022 Patient encounter procedure Gretchen Brower OD Work Phone: Ophthalmology Comment on above: Myopia, bilateral (P rimary Dx) Start: 04-08-2022 End: 04-08-2022 Patient encounter procedure Zhanna Hazel APRN.COMPUTER GRAPHICS ILLUSTRATOR Work Phone: [facility] Comment on above: Cat bite, initial en counter (Primary Dx) Start: 03-14-2022 End: 03-14-2022 Patient encounter procedure Mayda Shaikh Sujatha DO Work Phone: Orthopaedics Comment on above: S/P knee surgery (Pr imary Dx) Start: 03-06-2022 End: 03-06-2022 ambulatory June Lemon PT [facility] Start: 03-06-2022 End: 03-06-2022 Follow-up encounter June Lemon PT [facility] Comment on above: Patellar dislocation , left, subsequent encounter (Primary Dx); S/P orthopedic surgery, follow-up exam Start: 02-27-2022 End: 02-27-2022 ambulatory June Lemon PT [facility] Start: 02-27-2022 End: 02-27-2022 Follow[facility]up encounter [facility] Comment on above: Patellar dislocation , left, subsequent encounter (Primary Dx); S/P orthopedic surgery, follow-up exam Start: 02-25-2022 End: 02-25-2022 ambulatory Raysa Lakhaniirineoba FISH PACKER Work Phone[facility] Start: 02-25-2022 End: 02-25-2022 Follow-up encounter Raysa Kashuba FISH PACKER Work Phone: [facility] Comment on above: Patellar dislocation , left, subsequent encounter (Primary Dx); S/P orthopedic surgery, follow-up exam Start: 02-22-2022 End: 02-22-2022 ambulatory June Lemon PT [facility] Start: 02-22-2022 End: 02-22-2022 Follow-up encounter June [facility] Comment on above: Patellar dislocation , left, subsequent encounter (Primary Dx); S/P orthopedic surgery, follow-up exam Start: 02-04-2022 End: 02-04-2022 ambulatory June Staton PT [facility] Start: 02-04-2022 End: 02-04-2022 Follow-up encounter June Staton PT [facility] Comment on above: Patellar dislocation , left, subsequent encounter (Primary Dx); S/P orthopedic surgery, follow-up exam Start: 02-01-2022 End: 02-01-2022 Patient encounter procedure Bettydolly Solares DO Work Phone: Orthopaedics Comment on above: S/P knee surgery (Pr imary Dx); Dislocation of left patella, subsequent encounter; Patellar instability of left knee Start: 01-23-2022 Telephone encounter BettyHawa Solares DO Work Phone: Orthopaedics Comment on above: Patient Question Start: 01-01-2022 End: 01-01-2022 [facility] Work Phone: [facility] Start: 01-01-2022 End: 01-01-2022 ambulatory [facility] 2 Work Phone: Pre Anesthesia Comment on above: Pre-op evaluation (P rimary Dx); Dislocation of left patella, subsequent encounter Start: 01-01-2022 End: 01-01-2022 Preprocedural examination done [facility] 2 Work Phone: Pre Anesthesia Start: 12-19-2021 Patient encounter status Manny Arteaga MD Work Phone: [facility] Start: 12-19-2021 Telephone encounter Manny willson MD Work Phone: [facility] Comment on above: Schedule Surgery Start: 12-10-2021 [...] with patient Manny Arteaga MD Work Phone: [facility] Start: 12-06-2021 Telephone encounter Mayda Solares [...] Mayda Solares DO Work Phone: [facility] Start: 10-16-2021 End: 10-16-2021 Subsequent hospital visit by physician [facility] Radio [facility] W[facility] (I-Stat/1.5t) Work Phone: Radiology Comment on [...] Date Procedure Procedure Detail Performing Clinician Start: 12-09-2024 Estimated creatinine clearance No Primary Care Physician Start: 12-08-2024 Anaerobic microbial culture No Primary Care Physician Start: 12-08-2024 Blood culture No Primar y Care Physician Start: 12-08-2024 Gram stain microscopy N o Primary Care Physician Start: 12-08-2024 End: 12-08-2024 Microbial culture, routine No Primary Ca re Physician Start: 12-08-2024 Plain x-ray of hand No Primary Care Physician Start: 12-08-2024 Plain x-ray of hand No Primary Care Physician Start: 12-08-2024 Estimated creatinine clearance No Primary Care Physician Start: 10-21-2024 Radiologic exam ches t 2 views Zhanna Hazel APRN.COMPUTER GRAPHICS ILLUSTRATOR Work Phone: Start: 08-17-2024 Urnls dip stick/tabl et reagent auto microscopy No Primary Care Physician Start: 08-17-2024 Estimated creatinine clearance No Primary Care Physician Start: 08-17-2024 Computed tomography of abdomen and pelvis with intravenous contrast No Primary Care Physician Start: 05-18-2024 RSV VACCINE, BIVALEN T (ABRYSVO) Cherry Schuler MD Work Phone: Start: 05-18-2024 Urnls dip stick/tabl et rgnt non-auto w/o micrscp Cherry Schuler MD Work Phone: Start: 05-11-2024 Urnls dip stick/tabl et rgnt non-auto w/o micrscp Anitra Caldwell APRN.CNM Work Phone: Start: 04-21-2024 Us preg uterus after 1st trimest 1/ gestation Anitra Caldwell APRN.CNAlexa Work Phone: Start: 03-18-2024 STREP A MOLECULAR (POC) Melody Love PA-C Work Phone: Start: 01-23-2024 Us preg uterus after 1st trimest 1/ gestation Anitra Caldwell APRN.CNM Work Phone: Start: 11-28-2023 Us nuchal translucency 1st gestation Anitra Caldwell APRN.CNM Work Phone: Start: 11-14-2023 BACTERIAL VAGINOSIS NAAT Anitra Caldwell PEDIATRIC PHYSICIAN ASSISTANT.CNM Work Phone: Start: 11-14-2023 Iadna chlamydia trac homatis amplified probe tq Anitra Caldwell APRN.CNM Work Phone: Start: 11-14-2023 Us uterus l imited /> fetuses Anitra Caldwell APRN.CNM Work Phone: Start: 08-29-2023 Mri any jt lower ext rem w/o contrast matrl Mayda Solares DO Work Phone: Start: 08-19-2023 End: 12-02-2023 History of operative procedure on knee S/P knee surgery Zian Kearney PT Work Phone: Start: 07-31-2023 Radiologic exam knee complete 4/more views Mayda Solares DO Work Phone: Start: 06-03-2023 Viral antigen assay Start: 04-02-2023 STREP A MOLECULAR (POC) John Crowe MD Work Phone: Start: 02-18-2023 End: 02-18-2023 Radex foot complete minimum 3 views Zhanna Hazel APRN.COMPUTER GRAPHICS ILLUSTRATOR Work Phone: Start: 11-21-2022 STREP A MOLECULAR (POC) Zhanna Hazel APRN.COMPUTER GRAPHICS ILLUSTRATOR Work Phone: Start: 10-16-2021 Mri any jt lower ext rem w/o contrast matrl Mayda Solares DO Work Phone: Start: 09-26-2021 Radiologic exam knee complete 4/more views Mayda Solares DO Work Phone: Start: 08-12-2016 End: 08-12-2016 Iaadiadoo streptococcus group a Luis Cortes PA Work Phone: History of operative procedure on knee S/P knee surgery Mayda Shaikh Duncangermaine DO Work Phone: History of operative procedure on knee S/P knee surgery Mayda Shaikh Duncangermaine DO Work Phone: History of operative procedure on knee S/P knee surgery Mayda Shaikh Duncangermaine DO Work Phone: History of operative procedure on knee S/P knee surgery Zain Kearney PT Work Phone: History of operative procedure on knee S/P knee surgery Mri (I-Stat/1.5t) Work Phone: History of operative procedure on knee S/P knee surgery Raysa Bennett FISH PACKER Work Phone: Plan of Treatment Date Care Activity Detail Author Start: 08-01-2025 End: 08-01-2025 Patient encounter procedure 08/01/2025 11:30 AM EDT Office Visit OB/Gynecology [address] [place] [address] Tran Gaytan APRN.[facility] [address] [place] [address] Annual OB/Gynecology Comment on above: Annual Start: 02-21-2025 End: 02-21-2025 Patient encounter procedure 02/21/2025 2:20 PM EDT Office Visit Family [facility] [address] [place] [address] Katey Watson MD [address] [place] [address] I need to get a primary doctor [facility] Comment on above: I need to get a primary doctor Start: 02-09-2025 End: 02-09-2025 Patient encounter procedure 02/09/2025 9:00 AM EDT Office Visit Family [facility] [address] [place] [address] Katey Watson MD [address] [place] [address] I need to get a primary doctor [facility] Comment on above: I need to get a primary doctor Start: 01-17-2025 Influenza vaccination [facility] Start: 01-10-2025 [facility] Start: 12-13-2024 End: 12-13-2024 Patient encounter procedure 12/13/2024 1:45 PM EDT Office Visit OB/Gynecology [address] [place] [address] Tran Gaytan APRN.CNM [address] [place] [address] IUD check up OB/Gynecology Comment on above: IUD check up Start: 12-10-2024 Patient discharge [facility] Start: 12-09-2024 End: 12-09-2024 [facility] 12/09/2024 10:00 AM EDT [facility] Psychiatry [address] [place] [address] Molly Husain, PEDIATRIC PHYSICIAN ASSISTANT.COMPUTER GRAPHICS ILLUSTRATOR [address] [place] [address] MDD (major depressive disorder), recurrent episode, moderate (HCC) [F33.1] Psychiatry Comment on above: MDD (major depressive disorder), recurre nt episode, moderate (HCC) [F33.1] Start: 12-08-2024 Bacteria identified in Blood by Culture Blood Culture [facility] Start: 12-08-2024 Wound care [facility] Start: 12-08-2024 Ambulation without limitation [facility] Start: 12-08-2024 Assessment of risk of venous thromboembolism [facility] Start: 12-08-2024 Consultation [facility] Start: 12-08-2024 Consultation for treatment [facility] Start: 12-08-2024 Insertion of catheter into peripheral vein [facility] Start: 12-08-2024 Providing care according to standard [facility] Start: 12-08-2024 [facility] Start: 12-08-2024 Following clinical pathway protocol [facility] Start: 12-08-2024 Verification routine [facility] Start: 12-08-2024 Admission procedure [facility] Start: 12-08-2024 Hospital admission, emergency, from emergency room, medical nature [facility] Start: 12-08-2024 [facility] Start: 12-08-2024 Patient referral to dietitian [facility] Start: 12-07-2024 [facility] Start: 12-07-2024 Emergency department visit low/moder severity EMERGENCY DEPT VISIT [facility] Start: 12-05-2024 [facility] Start: 11-15-2024 End: 11-15-2024 Patient encounter procedure 11/15/2024 4:00 PM EDT Office Visit OB/Gynecology [address] [place] [address] Tran Gaytan APRN.CNM [address] [place] [address] getting a copper iud OB/Gynecology Comment on above: getting a copper iud Start: 11-13-2024 GC (Gonorrhea) Screening (18-24) GC (Gonorrhea) Screening (18-24) [facility] Start: 11-13-2024 Screening for Chlamydia trachomatis Chlamydia Screening (18-24) [facility] Start: 11-11-2024 End: 11-11-2024 Patient encounter procedure 11/11/2024 12:30 PM EDT Office Visit [facility] [address] [place] [address] Gretchen Brower, OD [address] [place] [address] Annual Eye Exam Ophthalmology Comment on above: Annual Eye Exam Start: 08-17-2024 [facility] Start: 08-11-2024 End: 08-11-2024 Patient encounter procedure 08/11/2024 2:45 PM EDT Office Visit OB/Gynecology [address] [place] [address] Robson Romero APRN.COMPUTER GRAPHICS ILLUSTRATOR [address] [place] [address] IUD Insert OB/Gynecology Comment on above: IUD Insert Start: 07-29-2024 End: 07-29-2024 Patient encounter procedure 07/29/2024 3:30 PM EDT Office Visit OB/Gynecology [address] [place] [address] Tran Gaytan APRN.CN [address] [place] [address] IUD Insert OB/Gynecology Comment on above: IUD Insert Start: 07-19-2024 End: 07-19-2024 Patient encounter procedure 07/19/2024 4:00 PM EST Office Visit OB/Gynecology [address] [place] [address] Tran Gaytan APRN.CNM [address] [place] [address] checkup OB/Gynecology Comment on above: checkup Start: 06-25-2024 End: 06-25-2024 Patient encounter procedure 06/25/2024 9:45 AM EST Office Visit OB/Gynecology [address] [place] [address] Tran Gaytan APRN.CN [address] [place] [address] PP f/u depression OB/Gynecology Comment on above: PP f/u depression Start: 05-27-2024 Patient discharge [facility] Start: 05-25-2024 Documentation procedure [facility] Start: 05-25-2024 Administration of medication [facility] Start: 05-25-2024 Application of ice collar, cap or bag [facility] Start: 05-25-2024 Catheterization of vein [facility] Start: 05-25-2024 Introduction of urinary catheter [facility] Start: 05-25-2024 Measuring intake and output [facility] Start: 05-25-2024 Notification of physician [facility] Start: 05-25-2024 Procedure discontinued [facility] Start: 05-25-2024 Provision of activity privileges [facility] Start: 05-25-2024 Vital signs measurements [facility] Start: 05-25-2024 End: 05-25-2024 [facility] Start: 05-25-2024 Admission procedure [facility] Start: 05-25-2024 Consultation [facility] Start: 05-18-2024 End: 05-18-2024 Patient encounter procedure 05/18/2024 2:50 PM EST Routine Office Visit OB/Gynecology [address] [place] [address] Cherry Coleman MD [address] [place] [address] OB OB/Gynecology Comment on above: OB Start: 05-11-2024 End: 05-11-2024 Patient encounter procedure 05/11/2024 10:30 AM EST Routine Office Visit OB/Gynecology [address] [place] [address] Anitra Caldwell APRN.CNM [address] [place] [address] OB per gilbert OB/Gynecology Comment on above: OB per gilbert Start: 05-05-2024 End: 05-05-2024 Patient encounter procedure 05/05/2024 2:30 PM EST Office Visit OB/Gynecology [address] [place] [address] Tran Gaytan APRN.CNM [address] [place] [address] Centering OB/Gynecology Comment on above: Centering Start: 04-21-2024 End: 04-21-2024 Patient encounter procedure OB/Gynecology Comment on above: Centering placenta location Start: 04-16-2024 RSV Vaccine (1 - Risk 1-dose series) RSV Vaccine (1 - Risk 1-dose series) [facility] Start: 04-14-2024 End: 04-14-2024 Patient encounter procedure 04/14/2024 8:00 AM EST Routine Office Visit OB/Gynecology [address] [place] [address] Tran Gaytan APRN.CN [address] [place] [address] OB OB/Gynecology Comment on above: OB Start: 03-29-2024 End: 03-29-2024 Patient encounter procedure 03/29/2024 3:15 PM EST Routine Office Visit OB/Gynecology [address] [place], [place] [address] Tran Gaytan APRN.CNM [address] [place] [address] OB OB/Gynecology Comment on above: OB Start: 03-27-2024 End: 06-26-2024 CBC W Auto Differential panel - Blood COMPLETE BLOOD COUNT AND DIFFERENTIAL Lab Routine 24 weeks gestation of Supervision of normal first teen in second trimester Generalized anxiety disorder Rubella non-immune status, antepartum History of depression Expected: 03/27/2024 (Approximate), Expires: 06/26/2024 [facility] Work Phone: Comment on above: Expected: 03/27/2024 (Approximate), Expi res: 06/26/2024 Start: 03-27-2024 End: 06-26-2024 GESTATIONAL GLUCOSE SCREEN, 1-HOUR, 50 GRAM, NON-FASTING GESTATIONAL GLUCOSE SCREEN, 1-HOUR, 50 GRAM, NON-FASTING Lab Routine 24 weeks gestation of Supervision of normal first teen in second trimester Generalized anxiety disorder Rubella non-immune status, antepartum History of depression Expected: 03/27/2024 (Approximate), Expires: 06/26/2024 [facility] Comment on above: Expected: 03/27/2024 (Approximate), Expi res: 06/26/2024 Start: 03-27-2024 End: 06-26-2024 SYPHILIS TREPONEMAL W/REFLEX SYPHILIS TREPONEMAL W/REFLEX Lab Routine 24 weeks gestation of Supervision of normal first teen in second trimester Generalized anxiety disorder Rubella non-immune status, antepartum History of depression Expected: 03/27/2024 (Approximate), Expires: 06/26/2024 [facility] Comment on above: Expected: 03/27/2024 (Approximate), Expi res: 06/26/2024 Start: 03-25-2024 End: 03-25-2024 ambulatory 03/25/2024 12:00 PM EST Results Only [facility] [address] [facility] [place] [address] GEST GLUC LYSSA, 3-HR, 100 GM, FASTING [facility] Comment on above: GEST GLUC LYSSA, 3-HR, 100 GM, FASTING Start: 03-19-2024 End: 03-19-2024 ambulatory 03/19/2024 10:00 AM EDT Results Only [facility] [address] [place] [address] GEST GLUC LYSSA, 3-HR, 100 GM, FASTING [facility] Comment on above: GEST GLUC LYSSA, 3-HR, 100 GM, FASTING Start: 03-18-2024 End: 06-17-2024 GEST GLUC LYSSA, 3-HR, 100 GM, FASTING GEST GLUC LYSSA, 3-HR, 100 GM, FASTING Lab Routine Elevated glucose tolerance test Expected: 03/18/2024, Expires: 06/17/2024 [facility] Work Phone: Comment on above: Expected: 03/18/2024, Expires: Start: 03-17-2024 End: 03-17-2024 Patient encounter procedure 03/17/2024 2:30 PM EDT Office Visit OB/Gynecology [address] [place] [address] Tran Gaytan APRN.CN [address] [place] [address] Centering OB/Gynecology Comment on above: Centering Start: 02-18-2024 End: 02-18-2024 Patient encounter procedure 02/18/2024 2:30 PM EDT Office Visit OB/Gynecology [address] [place] [address] Anitra Caldwell APRN.CNM [address] [place] [address] Centering OB/Gynecology Comment on above: Centering Start: 01-23-2024 End: 01-23-2024 Patient encounter procedure OB/Gynecology Comment on above: OB anatomy Start: 01-18-2024 Covid-19 Vaccine ( season) Covid-19 Vaccine ( season) [facility] Start: 01-18-2024 Covid-19 Vaccine () Covid-19 Vaccine () [facility] Start: 01-18-2024 Influenza vaccination [facility] Start: 12-23-2023 End: 03-23-2024 ALPHA FETOPRO MATERNAL [facility] Work Phone: Comment on above: Expected: 12/23/2023, Expires: Start: 12-23-2023 End: 12-23-2023 Patient encounter procedure 12/23/2023 10:30 AM EDT Routine Office Visit OB/Gynecology [address] [place] [address] Anitra Caldwell APRN.CNM [address] [place] [address] OB OB/Gynecology Comment on above: OB Start: 12-12-2023 End: 12-12-2023 Patient encounter procedure 12/12/2023 2:20 PM EDT Routine Office Visit OB/Gynecology [address] [place] [address] Tristan Hazel MD [address] [place] [address] new OB OB/Gynecology Comment on above: new OB Start: 11-28-2023 End: 02-27-2024 Bacteria identified in Urine by Culture URINE CULTURE Microbiology Routine Supervision of normal first teen in second trimester Expected: 11/28/2023, Expires: 02/27/2024 [facility] Comment on above: Expected: 11/28/2023, Expires: 4 Start: 11-28-2023 End: 02-27-2024 CARRIER SCREEN, STANDARD [facility] Comment on above: Expected: 11/28/2023, Expires: Start: 11-28-2023 End: 02-27-2024 Chromosome 21 trisomy [Presence] in Blood or Tissue by Cytogenetics [facility] Work Phone: Comment on above: Expected: 11/28/2023, Expires: 4 Start: 11-28-2023 End: 11-27-2024 OBSTETRIC ULTRASOUND WHI OBSTETRIC ULTRASOUND WHI Anc Imaging Routine Supervision of normal first teen in second trimester Expected: 11/28/2023, Expires: 11/27/2024 [facility] Comment on above: Expected: 11/28/2023, Expires: 5 Start: 11-28-2023 End: 11-28-2023 Patient encounter procedure OB/Gynecology Comment on above: Nuchal OB Start: 11-14-2023 End: 02-13-2024 Bacteria identified in Urine by Culture URINE CULTURE Microbiology Routine Encounter for care in first trimester of first Expected: 11/14/2023, Expires: 02/13/2024 [facility] Comment on above: Expected: 11/14/2023, Expires: 4 Start: 11-14-2023 End: 02-13-2024 CBC panel - Blood by Automated count COMPLETE BLOOD COUNT Lab Routine Encounter for care in first trimester of first Expected: 11/14/2023, Expires: 02/13/2024 [facility] Work Phone: Comment on above: Expected: 11/14/2023, Expires: Start: 11-14-2023 End: 02-13-2024 Hemoglobin A1c in Blood HEMOGLOBIN A1C Lab Routine Encounter for care in first trimester of first Expected: 11/14/2023, Expires: 02/13/2024 [facility] Comment on above: Expected: 11/14/2023, Expires: Start: 11-14-2023 End: 02-13-2024 HEMOGLOBIN EVALUATION CASCADE HEMOGLOBIN EVALUATION CASCADE Lab Routine Encounter for care in first trimester of first Expected: 11/14/2023, Expires: 02/13/2024 [facility] Comment on above: Expected: 11/14/2023, Expires: Start: 11-14-2023 End: 02-13-2024 Hepatitis B virus surface Ag [Presence] in Serum HEPATITIS B SURFACE ANTIGEN Lab Routine Encounter for care in first trimester of first Expected: 11/14/2023, Expires: 02/13/2024 [facility] Comment on above: Expected: 11/14/2023, Expires: Start: 11-14-2023 End: 02-13-2024 Hepatitis C virus Ab [Presence] in Serum HEPATITIS C ANTIBODY IA WITH CONFIRMATION Lab Routine Encounter for care in first trimester of first Expected: 11/14/2023, Expires: 02/13/2024 [facility] Comment on above: Expected: 11/14/2023, Expires: Start: 11-14-2023 End: 02-13-2024 HIV 1+2 Ab [Presence] in Serum or Plasma by Immunoassay HIV 1/2 COMBO WITH REFLEX TO DIFFERENTIATION Lab Routine Encounter for care in first trimester of first Expected: 11/14/2023, Expires: 02/13/2024 [facility] Comment on above: Expected: 11/14/2023, Expires: Start: 11-14-2023 End: 02-13-2024 RUBELLA IGG ANTIBODY RUBELLA IGG ANTIBODY Lab Routine Encounter for care in first trimester of first Expected: 11/14/2023, Expires: 02/13/2024 [facility] Comment on above: Expected: 11/14/2023, Expires: Start: 11-14-2023 End: 02-13-2024 SYPHILIS TOTAL W/REFLEX SYPHILIS TOTAL W/REFLEX Lab Routine Encounter for care in first trimester of first Expected: 11/14/2023, Expires: 02/13/2024 [facility] Comment on above: Expected: 11/14/2023, Expires: Start: 11-14-2023 End: 02-13-2024 TYPE + SCREEN TYPE + SCREEN Blood Bank Routine Encounter for care in first trimester of first Expected: 11/14/2023, Expires: 02/13/2024 [facility] Comment on above: Expected: 11/14/2023, Expires: Start: 11-14-2023 End: 11-14-2023 Patient encounter procedure 11/14/2023 1:00 PM EDT Initial Office Visit OB/Gynecology [address] [place] [address] Anitra Caldwell APRN.CNM [address] [place] [address] new OB OB/Gynecology Comment on above: new OB Start: 11-11-2023 End: 11-11-2023 Patient encounter procedure 11/11/2023 10:30 AM EDT Office Visit [facility] Ophthalmology [address] [place] [address] Gretchen Brower, OD [address] [place] [address] 1 YR complete with cl eval Ophthalmology Comment on above: 1 YR complete with cl eval Start: 06-03-2023 [facility] Start: 06-03-2023 Referral to service [facility] Start: 06-03-2023 Suicide precautions [facility] Start: 05-19-2023 Behavioral Health Screening Behavioral Health Screening [facility] Start: 05-19-2023 Depression Assessment Depression Assessment [facility] Start: 01-17-2023 Covid-19 Vaccine (1 - 2023-24 season) Covid-19 Vaccine (2022-24 season) [facility] Start: 01-17-2023 Influenza vaccination [facility] Start: 2022 CHLAMYDIA SCREENING (18-24) CHLAMYDIA SCREENING (18-24) [facility] Start: 2022 Depression Screening Depression Screening [facility] Start: 2022 GC (GONORRHEA) SCREENING (18-24) GC (GONORRHEA) SCREENING (18-24) [facility] Start: 2022 HEPATITIS C SCREENING HEPATITIS C SCREENING [facility] Start: 2022 Hepatitis C screening Hepatitis C Screening [facility] Start: 2022 HIV SCREENING HIV SCREENING [facility] Start: 2022 HIV screening HIV Screening [facility] Start: 2022 Screening for Chlamydia trachomatis Chlamydia Screening (18-) [facility] Start: 05-19-2022 DEPRESSION ASSESSMENT DEPRESSION ASSESSMENT [facility] Start: 01-17-2022 Influenza vaccination [facility] Start: 2020 Meningococcal B Vaccine (1 of 2 - Standard) Meningococcal B Vaccine (1 of 2 - Standard) [facility] Start: 2020 Meningococcal B Vaccine: Consider Based On Risk (1 of 2 - Patient Seeks Protection) Meningococcal B Vaccine: Consider Based On Risk (1 of 2 - Patient Seeks Protection) [facility] Start: 2020 MENINGOCOCCAL B: Consider based on risk (1 of 2 - Patient Seeks Protection) MENINGOCOCCAL B: Consider based on risk (1 of 2 - Patient Seeks Protection) [facility] Start: 2020 MENINGOCOCCAL CONJUGATE (1 - 2-dose series) MENINGOCOCCAL CONJUGATE (1 - 2-dose series) [facility] Start: 2020 Meningococcal Conjugate Vaccine (1 - 2-dose series) Meningococcal Conjugate Vaccine (1 - 2-dose series) [facility] Start: 08-11-2019 CHLAMYDIA SCREENING (<18) CHLAMYDIA SCREENING (<18) [facility] Start: 08-11-2019 GC (GONORRHEA) SCREENING (<18) GC (GONORRHEA) SCREENING (<18) [facility] Start: 08-11-2019 HPV Vaccine (1 - 3-dose series) HPV Vaccine (1 - 3-dose series) [facility] Start: 2018 PEDS TO ADULT TRANSITION ANNUAL ASSESSMENT PEDS TO ADULT TRANSITION ANNUAL ASSESSMENT [facility] Start: 03-20-2017 End: 03-20-2017 Appointment Appointment [facility] Work Phone: Start: 2016 Adult depression screening assessment DEPRESSION SCREENING [facility] Start: 2016 PEDS TO ADULT TRANSITION INITIAL DISCUSSION PEDS TO ADULT TRANSITION INITIAL DISCUSSION [facility] Start: 08-11-2015 HPV VACCINE (1 - 2-dose series) HPV VACCINE (1 - 2-dose series) [facility] Start: 2014 MENINGOCOCCAL B: Consider based on risk (1 of 2 - Risk Bexsero 2-dose series) MENINGOCOCCAL B: Consider based on risk (1 of 2 - Risk Bexsero 2-dose series) [facility] Start: 2013 HPV VACCINE (1 - 2-dose series) HPV VACCINE (1 - 2-dose series) [facility] Start: 2009 COVID-19 VACCINE (#1) COVID-19 VACCINE (#1) [facility] Start: 2008 POLIO (3 of 3 - 4-dose series) POLIO (3 of 3 - 4-dose series) [facility] Start: 02-10-2005 COVID-19 VACCINE (#1) COVID-19 VACCINE (#1) [facility] Bacteria identified in Urine by Culture URINE CULTURE Microbiology Routine Supervision of normal first teen in second trimester 15 weeks gestation of Nausea and vomiting during Generalized anxiety disorder History of depression 12/23/2023 11:05 AM EDT [facility] COVID & INFLUENZA A/ B & RSV PCR, ROUTINE COVID & INFLUENZA A/B & RSV PCR, ROUTINE Microbiology Routine Viral URI Ordered: 03/18/2024 [facility] Work Phone: Comment on above: Ordered: 03/18/2024 Insertion intrauteri ne device iud INSERT INTRAUTERINE DEVICE Procedures Routine Encounter for IUD insertion Ordered: 07/28/2024 [facility] Work Phone: Comment on above: Ordered: 07/28/2024 End: 08-29-2024 MR Knee - left WO contrast MRI KNEE WO IVCON LEFT Radiology Routine S/P knee surgery Loose body in knee, left knee 1 Occurrences starting 07/31/2023 until 08/29/2024 [facility] Work Phone: Comment on above: 1 Occurrences starting 07/31/2023 until 08/29/2024 Patient Education [facility] [employer] Work Phone: Patient referral [facility] Work Phone: ROUTINE, GR OUP B STREP PCR ROUTINE, GROUP B STREP PCR Microbiology Routine Encounter for supervision of normal first in third trimester 36 weeks gestation of 05/18/2024 2:58 PM EST [facility] Work Phone: UA DIP,URINE HCG (POC) UA DIP,UR INE HCG (POC) Lab Routine Encounter for IUD insertion Ordered: 11/15/2024 [facility] Work Phone: Comment on above: Ordered: 11/15/2024 URINE OB DIP B/O URINE OB DIP B/ O Lab Routine Supervision of normal first teen in second trimester Nausea and vomiting during Normal first with uncertain date of LMP, antepartum Generalized anxiety disorder History of depression 12 weeks gestation of Ordered: 11/28/2023 [facility] Comment on above: Ordered: 11/28/2023 URINE OB DIP B/O URINE OB DIP B/ O Lab Routine 34 weeks gestation of Encounter for supervision of normal first in third trimester Rubella non-immune status, antepartum Heartburn during in third trimester Ordered: 05/05/2024 [facility] Work Phone: Comment on above: Ordered: 05/05/2024 End: 08-22-2024 XR Knee - left 4 Views XR KNEE GENERAL 4V AP BOTH/PA BOTH/LAT/MERC LEFT Radiology Routine Chronic pain of left knee 1 Occurrences starting 07/24/2023 until 08/22/2024 [facility] Work Phone: Comment on above: 1 Occurrences starting 07/24/2023 until 08/22/20[facility] Immunizations Immunization Date Immunization Notes Care Provider Fa garrett 12-07-2024 tetanus toxoid, redu dagoberto diphtheria toxoid, and acellular pertussis vaccine, adsorbed No Primary Care Physician [facility] 05-26-2024 measles, mumps and rubella virus vaccine No Primary Care Physician [facility] 05-18-2024 respiratory syncytia l virus (RSV) vaccine, bivalent (ABRYSVO) Cherry Lyssa Schuler MD Work Phone: [facility] 03-16-2024 tetanus toxoid, redu dagoberto diphtheria toxoid, and acellular pertussis vaccine, adsorbed Melody Love PA-C Work Phone: [facility] 04-03-2020 tetanus immune globulin Dipika Hazel APRN.COMPUTER GRAPHICS ILLUSTRATOR Work Phone: [facility] 04-03-2020 tetanus toxoid, redu dagoberto diphtheria toxoid, and acellular pertussis vaccine, adsorbed Zhanna Hazel APRN.COMPUTER GRAPHICS ILLUSTRATOR Work Phone: [facility] 06-10-2017 influenza virus vaccine, unspecified formulation John Crowe MD Work Phone: [facility] 02-04-2005 diphtheria, tetanus toxoids and acellular pertussis vaccine [employer] Work Phone: [facility] Work Phone: 02-04-2005 haemophilus influenz ae type b conjugate and Hepatitis B vaccine [employer] Work Phone: [facility] Work Phone: 02-04-2005 pneumococcal conjuga te vaccine, 7 valent [employer] Work Phone: [facility] Work Phone: 02-04-2005 poliovirus vaccine, inactivated [employer] Work Phone: [facility] Work Phone: 2004 diphtheria, tetanus toxoids and acellular pertussis vaccine [employer] Work Phone: [facility] Work Phone: 2004 haemophilus influenz ae type b conjugate and Hepatitis B vaccine [employer] Work Phone: [facility] 2004 haemophilus influenz ae type b vaccine, HbOC conjugate [employer] Work Phone: [facility] Work Phone: 2004 hepatitis B vaccine, pediatric or pediatric/adolescent dosage [employer] Work Phone: [facility] Work Phone: 2004 pneumococcal conjuga te vaccine, 7 valent [employer] Work Phone: [facility] Work Phone: 2004 poliovirus vaccine, inactivated [employer] Work Phone: [facility] Work Phone: Payers Date Payer Category Payer Unknown [id number] 2024 Private Health Insurance [id number] 2024 Self-pay [id number] 2023 Private Health Insurance [id number] 2023 Medicaid [id number] 2022 Private Health Insurance [id number] 2022 Unknown [id number] 2021 Unknown [employer] PPO [id number] 2021-Present [phone] [address] [place] [address] PPO [id number] 2021 Unknown [employer] PPO [id number] 2021-Present [phone] [address] [place] [address] PPO [id number] [facility] of [facility] ( and others) PRIME [id number] Unknown [id number] Unknown [id number] Unknown [id number] 62 Unknown [id number] 62 Unknown [id number] 62 Unknown [id number] 62 Unknown [id number] [id number] 62 Unknown [id number] 62 Unknown [id number] [id number] 62 Unknown [id number] 2.16.840.1.268767.3.579.2.4 62 Unknown [id number] 2.16.840.1.570466.3.579.2.4 62 Unknown [id number] [id number] 62 Unknown [id number] 2.16.840.1.089857.3.579.2.4 62 Unknown [id number] [id number] 62 Unknown [id number] [id number] 62 Unknown [id number] [id number] 62 Unknown [id number] [id number] 62 Unknown [id number] 62 Unknown [id number] 62 Social History Date Type Detail Facility Start: 06-10-2017 End: 01-10-2025 Tobacco smoking status NHIS Never smoked tobacco [facility] Start: 09-26-2021 End: 02-18-2023 Alcohol intake Current non-drinker of alcohol (finding) [facility] Start: 2004 Sex Assigned At Female [facility] Start: 09-16-2021 End: 04-08-2022 Exposure to SARS-CoV-2 (event) Not sure [facility] Start: 06-10-2017 End: 03-14-2022 Tobacco use and exposure Smokeless tobacco non-user [facility] Start: 01-22-2023 End: 12-13-2024 History of Social function [facility] Start: 01-22-2023 End: 12-13-2024 Tobacco use panel [facility] Start: 04-19-2012 National Score (1-100), lower number is lower risk 51 [facility] Start: 01-10-2020 Gender identity Identifies as female gender (finding) [facility] Start: 06-03-2023 Tobacco smoking status SDIS Unknown if ever smoked [facility] Start: 11-14-2023 End: 12-31-2024 Alcohol intake Ex-drinker (finding) [facility] Start: 11-13-2023 Education 15 [facility] Start: 11-13-2023 [facility] Start: 09-19-2023 [facility] The thought of harming myself has occurred to me Sometimes [facility] Start: 08-17-2024 Sex Female (finding) [facility] NEGATED: Highlighted row Not [facility] Medical Equipment Procedure Code Equipment Code Equipment Origin al Text Equipment Identifier Dates [id number] Implant - [id number] Start: 01-18-2022 Comment on above: Description: Semi-T Screw Fastthread 7mm Biocomposite 20mm Interference Knee - [id number] Start: 01-18-2022 Device Dx Swivel ock Sl 3.5mm 8.5mm [place] [employer] Sterile - [id number] Start: 01-18-2022 Device Dx Swivel ock Sl 3.5mm 8.5mm [place] [employer] Sterile - [id number] Start: 01-18-2022 Goals Date Patient Goal Desired Activity /State Personal health goal Functional Status Date Assessment Result Facility 12-10-2024 Functional status Ambulates;Up ad sascha Blo [facility] Work Phone: 06-22-2014 Are you deaf, or do you have serious difficulty hearing No 06/22/2014 10:58 AM Jessica Eli RN [facility] Work Phone: 06-22-2014 Are you blind, or do you have serious difficulty seeing, even when wearing glasses No 06/22/2014 10:58 AM Jessica Eli RN No [facility] 06-22-2014 Do you have serious difficulty walking or climbing stairs No 06/22/2014 10:58 AM Jessica Eli RN No [facility] 06-22-2014 Do you have difficul ty dressing or bathing No 06/22/2014 10:58 AM Jessica Eli RN No [facility] Mental Status Date Assessment Result Facility 01-10-2025 Cognitive function Level Of Cons ciousness Awake;Alert;Appropriate;Fo llows [facility] Work Phone: 12-10-2024 Cognitive function Voice/Name [facility] Work Phone: 06-22-2014 Because of a physica l, mental, or emotional condition, do you have serious difficulty concentrating, remembering, or making decisions No 06/22/2014 10:58 AM Jessica Eli RN No [facility] Clinical Notes 06-10-2017 to 03-17-2025 Mark Martinez APRN.COMPUTER GRAPHICS ILLUSTRATOR - 12/31/2024 9:31 AM EDTTelephone Iman - Anitra Caldwell APRN.CNM - 12/27/2024 12:56 PM EDTTelephone Encounter - Anitra Caldwell APRN.CNM - 12/27/2024 12:56 PM EDT Note Date & Type Note Facility 03-17-2025 Note HNO ID: [id number] Author: NICOLE LU APRN.CNP Service: ? Author Type: Nurse Practitioner Type: Progress Notes Filed: 03/17/2025 13:02 Note Text: URGENT CARE GISELA Terrance Fletcher is a 19 year old female. Patient presents with: Nausea AND Vomiting: Diarrhea and headache x 2 days HPI The patient is a 19-year-old female presenting with vomiting, diarrhea, headache, and left ear pain. Over the past several days, the patient has experienced vomiting approximately once daily, with two episodes yesterday. She reports intermittent headaches and left ear pain that began today, which she describes as mild and similar to the onset of a prior ear infection. She also reports diarrhea with nearly every bowel movement, but denies hematochezia. She reports that she feels nauseated before her headaches begin, and after vomiting she experiences nausea, and throat pain, which resolve within about 30 minutes. She denies abdominal pain or cramping. She has missed work due to her symptoms, unable to attend yesterday and leaving early today after vomiting. She reports a prior adverse reaction to Zofran, which caused severe headaches during . She denies known antibiotic allergies. Review of Systems Head: (+) headache Ears/Nose/Mouth/Throat: (+) left ear pain, (+) throat pain Gastrointestinal: (+) vomiting, (+) nausea, (+) diarrhea, (+) hiccups, (-) abdominal pain, (-) abdominal cramping, (-) blood in stool PAST MEDICAL HISTORY Diagnosis Date Anemia Depression/anxiety Encounter for insertion of copper IUD Ganglion cyst of wrist, left Irregular menses Low-lying placenta (HCC) 01/26/2024 04/21/24- Resolved. Tran Gaytan APRN.CNM Repeat growth US at 32 weeks. Anitra Caldwell APRN.CNM Post depression 06/24/2024 PAST SURGICAL HISTORY Procedure Laterality Date DENTAL SURGERY HX 2015 IUD, PARAGARD 11/15/2024 Placed in office ORTHOPEDICS SURGERY HX knee torn meniscus WRIST Left cyst on left wrist ALLERGIES Eucalyptus and Lactase MEDICATIONS VRAYLAR 1.5 mg capsule Take 1 capsule by mouth once daily. copper (PARAGARD) 380 square mm intrauterine device 1 Intra Uterine Device by INTRAUTERINE route as directed. promethazine (PHENERGAN) 12.5 mg tablet Take 1 tablet by mouth every 6 hours as needed for up to 3 days. cefdinir (OMNICEF) 300 mg capsule Take 1 capsule by mouth two times a day for 5 days. amoxicillin-clavulanate potassium (AUGMENTIN) 875-125 mg per tablet Take 1 tablet by mouth every 12 hours. (Patient not taking: Reported on 12/31/2024) moxifloxacin (VIGAMOX) 0.5 % ophthalmic solution Use 1 drop in the right eye three times a day. sertraline (ZOLOFT) 25 mg tablet Take 1 tablet by mouth once daily. FAMILY HISTORY Problem Relation Age of Onset [...] Alcohol abuse Paternal Grandfather DVT Paternal Grandfather SOCIAL HISTORY[1] Objective BP 106/75 Pulse 120 Temp 36.1 ?C (97 ?F) Resp 20 Wt 57 kg (125 lb 10.6 oz) LMP 03/09/2025 (Approximate) SpO2 100% No BMI 21.24 kg/m? Physical Exam Constitutional: General: She is not in acute distress. Appearance: Normal appearance. She is normal weight. She is not ill-appearing or toxic-appearing. HENT: Head: Normocephalic and atraumatic. Jaw: No trismus or swelling. Right Ear: Ear canal and external ear normal. A middle ear effusion is present. Left Ear: Ear canal and external ear normal. A middle ear effusion is present. Tympanic membrane is erythematous and bulging. Tympanic membrane has decreased mobility. Nose: Mucosal edema, congestion and rhinorrhea present. Mouth/Throat: Pharynx: Uvula midline. Posterior oropharyngeal erythema and postnasal drip present. Cardiovascular: Rate and Rhythm: Normal rate and regular rhythm. Pulses: Normal pulses. Heart sounds: Normal heart sounds, S1 normal and S2 normal. Pulmonary: Effort: Pulmonary effort is normal. Breath sounds: Normal breath sounds. No decreased breath sounds, wheezing, rhonchi or rales. Lymphadenopathy: Cervical: Cervical adenopathy present. Neurological: Mental Status: She is alert. { 1. Gastroenteritis (K52.9) - Acute onset with vomiting, headache, and diarrhea; no abdominal pain or cramping. - Start Phenergan 12.5 mg tablets; advised to cut in half and take at night due to sedative effects. - Discussed prior adverse reaction to Zofran (headaches); patient ag (more content not included)... [facility] 01-10-2025 Discharge summary [facility] 12-31-2024 Note HNO ID: [id number] Author: MARK MARTINEZ APRN.COMPUTER GRAPHICS ILLUSTRATOR Service: ? Author Type: Nurse Practitioner Type: Progress Notes Filed: 12/31/2024 09:36 Note Text: Subjective Oral Fletcher is a 19 year old female. HPI Patient presents today complaining of about 1 day of irritation in her left eye. She states that she felt irritation and removed her contact and noticed what appeared to be some foreign material on the contact. She has not been wearing her contacts since. She denies any eye pain or vision changes but does note irritation of the eye. My week ago patient also had received IV antibiotics for cat bite infection and notes that she had a mild generalized rash which is now just on the palmar aspect of her left forearm. She denies any other rashes or any other health concerns. Denies any recent fevers. Review of Systems As above Objective BP 110/68 Pulse 65 Temp 36.5 ?C (97.7 ?F) Resp 18 Wt 58.6 kg (129 lb 3 oz) LMP 10/25/2024 (Approximate) SpO2 100% BMI 21.83 kg/m? Physical Exam Vitals and nursing note reviewed. Constitutional: General: She is not in acute distress. Appearance: Normal appearance. She is not ill-appearing. HENT: Head: Normocephalic. Eyes: Comments: Injection of the left conjunctiva. Pulmonary: Effort: Pulmonary effort is normal. Musculoskeletal: General: Normal range of motion. Skin: General: Skin is warm. Neurological: General: No focal deficit present. Mental Status: She is alert and oriented to person, place, and time. Psychiatric: Mood and Affect: Mood normal. Behavior: Behavior normal. ASSESSMENT/PLAN: 1. Irritant contact dermatitis due to other agents - ICD9: 692.89, ICD10: L24.89 (primary diagnosis) -Discussed with patient that symptoms seem consistent with some sort of contact dermatitis, possibly even poison noy. Patient given prescriptions as noted below for symptomatic relief. - CETIRIZINE 10 MG TABLET - PREDNISONE 50 MG TABLET 2. Acute bacterial conjunctivitis of left eye - ICD9: 372.03, ICD10: H10.32 -Left eye was numbed with tetracaine and stained with fluorescein and using black light no obvious dye uptake noted. No obvious foreign bodies noted. I do feel symptoms are more consistent with bacterial conjunctivitis. As patient is contact wearer she was given prescriptions as noted below and instructed to follow-up with ophthalmology for further evaluation and management. Patient comfortable with plan - MOXIFLOXACIN 0.5 % EYE DROPS Mark Martinez APRN.[facility] 12-31-2024 History of Present illness Narrative Subjective Oral Fletcher is a 19 year old female. HPI Patient presents today complaining of about 1 day of irritation in her left eye. She states that she felt irritation and removed her contact and noticed what appeared to be some foreign material on the contact. She has not been wearing her contacts since. She denies any eye pain or vision changes but does note irritation of the eye. My week ago patient also had received IV antibiotics for cat bite infection and notes that she had a mild generalized rash which is now just on the palmar aspect of her left forearm. She denies any other rashes or any other health concerns. Denies any recent fevers. Review of Systems As above Objective BP 110/68 Pulse 65 Temp 36.5 C (97.7 F) Resp 18 Wt 58.6 kg (129 lb 3 oz) LMP 10/25/2024 (Approximate) SpO2 100% BMI 21.83 kg/m Physical Exam Vitals and nursing note reviewed. Constitutional: General: She is not in acute distress. Appearance: Normal appearance. She is not ill-appearing. HENT: Head: Normocephalic. Eyes: Comments: Injection of the left conjunctiva. Pulmonary: Effort: Pulmonary effort is normal. Musculoskeletal: General: Normal range of motion. Skin: General: Skin is warm. Neurological: General: No focal deficit present. Mental Status: She is alert and oriented to person, place, and time. Psychiatric: Mood and Affect: Mood normal. Behavior: Behavior normal. ASSESSMENT/PLAN: 1. Irritant contact dermatitis due to other agents - ICD9: 692.89, ICD10: L24.89 (primary diagnosis) -Discussed with patient that symptoms seem consistent with some sort of contact dermatitis, possibly even poison noy. Patient given prescriptions as noted below for symptomatic relief. - CETIRIZINE 10 MG TABLET - PREDNISONE 50 MG TABLET 2. Acute bacterial conjunctivitis of left eye - ICD9: 372.03, ICD10: H10.32 -Left eye was numbed with tetracaine and stained with fluorescein and using black light no obvious dye uptake noted. No obvious foreign bodies noted. I do feel symptoms are more consistent with bacterial conjunctivitis. As patient is contact wearer she was given prescriptions as noted below and instructed to follow-up with ophthalmology for further evaluation and management. Patient comfortable with plan - MOXIFLOXACIN 0.5 % EYE DROPS Mark Martinez APRN.CNP documented in this encounter [facility] 12-27-2024 Telephone encounter Note Patient was supposed to make appointment with Psychiatry for further management. I can give a refill but prefer for future that she has a provider manage. Thank you, Anitra Caldwell APRN.CNM [facility] 12-27-2024 Miscellaneous Notes Patient was supposed to make appointment with Psychiatry for further management. I can give a refill but prefer for future that she has a provider manage. Thank you, Anitra Caldwell APRN.CNM Patient was prescribed zoloft 25 mg 06/25/2024. Last refill was 11/15/24. documented in this encounter [facility] 12-27-2024 Telephone encounter Note Patient was prescribed zoloft 25 mg 06/25/2024. Last refill was 11/15/24. [facility] 12-10-2024 Note [facility] Medical Records Department [address] [place] [address] Discharge Summary 12/10/24 1017 MR#: [id number] Acct: [id number] Name: ORAL FLETCHER Rep #: [id number] : 2005 19 From: Gilbert Whittington MD PCP: Care Physician,No Primary Status:DIS IN Location: [facility] [id number] Providers Date of Admission: 12/08/24 Primary Care Physician: No Primary Care Phys Consultations 12/08/24 08:32 Consult: Onc/Wound/job training specialist Routine Comment: Consult: Plastic Surgery Routine Consulting Provider: Basilio Min Reason for Consult: Cat bite EMERGENT Consult: No MD Notified: Yes Date Notified: 12/08/24 Time Notified: 07:25 Method of Notification: ED Physician Initiated Reason For Visit: CAT BITE CELLULITIS Diagnosis Discharge Diagnosis (1) Cellulitis: Status: Acute Code(s): L03.90 - Cellulitis, unspecified (2) Cat bite: Status: Acute Code(s): W55.01XA - Bitten by cat, initial encounter Medications at Discharge Home Medications vit no.95-ferrous fumarate 28 mg-folic acid 800 mcg tablet () 1 tab PO DAILY SUPPLEMENT 03/21/24 pantoprazole 40 mg granules delayed-release for susp in packet (Protonix) 40 mg PO PRN INDIGESTION 05/25/24 sennosides 8.6 mg-docusate sodium 50 mg tablet (Stimulant Laxative Plus) 1 - 2 tab PO DAILY PRN PRN Constipation #30 tabs 05/27/24 hydrocodone-acetaminophen 5-325mg 5mg-325mg 1 tab PO Q4H PRN pain 2 days #8 tabs 08/17/24 amoxicillin 875 mg-potassium clavulanate 125 mg tablet 1 tab PO BID 10 days #20 tabs 12/07/24 oxycodone-acetaminophen 5 mg-325 mg tablet (Percocet) 1 tab PO Q6H PRN pain 3 days #12 tabs 12/07/24 lactase 3,000 unit tablet (Dairy Relief) 3,000 unit PO .WITH LACTOSE PRODUCT PRN lactose intolerant 12/08/24 sertraline 25 mg tablet (Zoloft) 50 mg PO DAILY ANXIETY 12/08/24 Hospital Course Operations None Procedures None Summary of Care Provided Minutes Spent on Discharge: 34 Hospital Course: Per HPI: ORAL FLETCHER, is a 19 F who presents to the hospital after a cat bite to her distal second finger on her right hand. She has some redness and swelling around that and had presented to the ER yesterday and was started on antibiotics and discharged home however she represented this morning with streaking up her right arm. She has some minimal tenderness but nothing major and distal joints and more proximal joints. Plastics was consulted recommended IV antibiotics as well as hand elevation and will do a wash on the inpatient side. She did receive Zosyn and vancomycin in the ER. She is afebrile without a leukocytosis Hospital Course: 1. Cat bite to her right second finger???19-year-old female works at the [employer] and had her finger bitten by a feral cat. Cat is currently under quarantine so she does not require any treatment for rabies at this time and that they will be monitoring the cat for a total of 14 days. Plastic surgery was consulted and recommended Dial soap soaks after he opened the area a little bit. She had rapid improvement in her the streaking up her forearm as well as the redness around her Bite. I discussed with her the possibility for discharge today and she expressed understanding of the risks and benefits of going home and would like to go home today. She does have a little bit of a rash that is fairly fainting could be due to vancomycin or the Zosyn, I discussed with her that she is to continue her Augmentin on discharge and if her rash gets worse to notify her primary care doctor to adjust antibiotics. I discussed with her the plan for discharge that she expressed understanding of the risks and benefits of going home and would like to go home today. 2. Anxiety, depression, GERD are all chronic medical conditions which complicate her care. Her home medications were continued where appropriate Physical Exam Narrative General: Alert, Oriented x3, Cooperative, No apparent distress HEENT: Atraumatic, PERRLA, EOMI, Normocephalic Oral: Moist Mucosa Neck: Supple, No JVD Lungs: Clear to auscultation, Normal air movement, No rhonchi, No wheeze, No rales Cardiovascular: Regular rate, Regular Rhythm, Normal S1, Normal S2, No murmurs Abdomen: Soft, Non Tender, Non-Distended, No Hepato-splenomegaly Extremities: No edema, Capillary Refill Less than 3 Seconds Skin: Multiple areas of cat scratches and a bite on her right second finger distally with some surrounding redness and then some streaking up her right forearm and upper arm, much improved. Areas of rash on her knees and on her lower abdomen. Musculoskeletal: No Tenderness to Palpation of Joints or Extremities Neurological: No focal neurological deficits, Motor Exam 5/5 strength throughout, Sensory exam intact to light touch and pain Psych/Mental Status: Normal Affect, Appropriate Weight / BMI Weight Weight: 132 lb (more content not included)... [facility] 12-08-2024 Evaluation note Diagnosis Onset Date Resolution Cat bite acute December 08 7:23am Cellulitis acute December 08 7:23am [facility] Work Phone: 1(828) 795-547607-23-2025 Evaluation note* Diagnosis Onset Date Resolution Status Admit Date Cat bite acute December 08 7:23am Cellulitis acute December 08 7:23am Cat bite acute December 17 9:55am Cellulitis acute December 17 9:55am [facility] Work Phone: 1(941) 283-215407-23-2025 Discharge summary [facility] Medical Records Department [address] [place] [address] Emergency Department Summary 12/08/24 MR#: [id number] Acct: [id number] Name: FLETCHERORALNIELS MORTENSEN Rep #:[id number] : 2005 19 From: Vlad Jay DO PCP: Care Physician,No Primary Status :REG ER Location: ED HPI History of Present Illness Chief Complaint: Wound Check Informant: patient Narrative Narrative: Patient is a 19-year-old female with no significant past medical history. She was seen yesterday evening secondary to being bit in the hand by a cat at the [employer]. She was started on Augmentin and her tetanus status was updated. She states that she awoke this morning secondary to persistentpain inthe right hand/arm. She states when she [...] presents for evaluation. Patient is left-hand dominant [facility] Medical History Anxiety Encounter for [...] wounds to the finger pad of the rightthird digit. There is no purulent drainage or [...] were obtained as well. X-ray revealed no acutefindings and blood work showed no leukocytosis orleft [...] (Auto) 49.2 Lymph % (Auto) 41.4 H [place] % (Auto) 7.6 Eos % (Auto) 1.6 Baso % (Auto) 0.0 Absolute Neuts (auto) 2.4 Absolute Lymphs (auto) 2.03 Nucleated RBC % 0 ESR < 1 Radiography Diagnostic Testing: Clinical Impression(s) from Imaging Studies Hand X-Ray 12/08/24 06:46 IMPRESSION: No fracture or dislocation is identified. Reading Location: [facility] X-ray of the right hand as interpreted by the emergency medicine physician reveals no signs of osteomyelitis fracture free air or retained foreign object Management Discussion w/another healthcare provider: Hospitalist and Metal Off Bearer Discharge Plan Triage Chief Complaint: Wound Check [...] Primary [Primary Care Provider] - Print Language: Welsh Disposition Disposition: Acute Care Hospital [facility] What to do if you have Problems For any increased pain, shortness of breath, bleeding, nausea or vomiting, chestpain, or any unexpected problems, contact your Primary Care Provider. Call [facility] ([phone]) or report tothe closest Emergency Room. Call 911 if necessary. 12/08/24 07 Cosigner Signature (if applicable): CC: No Primary Care Physician ~ Signed [facility]07-23-2025 Radiology Diagnostic study note [facility] Imaging Services [address] [place], [place] [id number] Hand Min 3 Views MR#: [id number] Acct: [id number] Name: ORAL FLETCHER Rep #: [id number] : 2005 F 19 From: Renee Blanchard MD PCP: Care Physician,No Primary Status: REG ER Study:Hand Min 3 Views Date of Exam: Exam# [id number] Ordering Dr: Heaven Jay DO PROCEDURE: HAND [...] Jay DO; No Primary Care Physician ~ Environmental Program Manager: Signed [facility]07-20-2025 Telephone encounter Note* Telephone Encounter - Samara Clifford RN - 12/05/2024 9:58 AM EDT Reason for call: Patient calling with severe [...] none 8. : no LMP irregular October 28- Protocols used: Contraception - Implant Symptoms and Cyvhwomze-ZPVQS-JI [facility]07-20-2025 Miscellaneous Notes* Telephone Encounter - Samara Clifford RN - 12/05/2024 9:58 AM EDT Reason for call: Patient calling with severe [...] Protocols used: Contraception - Implant Symptoms and Zgmdmbqum-BWVOL-XH [facility] Instructions* Patient Instructions* Roro Sanz MA - 11/15/2024 3:59 PM [...] please contact the office. [facility]2025 NoteHNO ID: [id number] Author: TRAN GAYTAN APRN.ELIAZAR Service: ? Author Type: Rnfa Type: Progress Notes Filed: 11/15/2024 17:11 Note [...] IUD source: office provided IUD lot #: [id number] Exp date: 12/15/2026 UNIVERSAL PROTOCOL / SAFETY [...] next menses for string check. Tran Gaytan APRN.[facility]06-30-2025 History of Present illness Narrative* Tran Gaytan APRN.KM - 11/15/2024 3:57 PM EDT Oral presents today for IUD insertion for [...] IUD source: office provided IUD lot #: [id number] Exp date: 12/15/2026 UNIVERSAL PROTOCOL / SAFETY [...] patient was told to check the string monthlyfor accurate placement. Bleeding expectations were reviewed. Follow up after next menses for string check. Tran Gaytan APRN.CNM [facility] History of Present illness Narrative* Nixon Cardenas RT(R) - 10/21/2024 5:30 PM EDT Radiology Service Progress Note PATIENT [...] Assigned female at . status: : No status:NO. PATIENT RELEVANT IMPLANT DATA REVIEWED: Yes PATIENT PRESENTS WITH AN IMPLANTABLE OR ATTACHED FINANCE BUSINESS PARTNER: No RADIOLOGY DEPARTMENT: General X-ray: Exam(s) Completed: Chest X-Ray PERIPHERAL IV DATA: Not applicable SIGNED BY: LAURIE Gary) October 21, 2024 5:12 PM documented in [facility]Tr[facility]06-[facility]-2025 NoteHNO ID: [id number] Author: NIXON CARDENAS RT (R) Service: ? Author Type: Vocational Nurse Lvn Type: Progress Notes Filed: 10/21/2024 17:19 Note [...] PATIENT PRESENTS WITH AN IMPLANTABLE OR ATTACHED FINANCE BUSINESS PARTNER: No RADIOLOGY DEPARTMENT: General X-ray: Exam(s) Completed: Chest X-Ray PERIPHERAL IV DATA: Not applicable SIGNED BY: LAURIE Gary) October 21, 2024 5:12 [facility]06-05-2025 NoteHNO ID: [id number] Author: ZHANNA HAZEL APRN.[facility] Service: ? Author Type: Nurse Practitioner Type: [...] history is provided by the patient. No sign language teacher was used. Cough Review of Systems Constitutional: [...] Take 1 tablet by mouth once daily. Slfsbaim-Ll-Ayk-Fe-FA tab Take 1 tablet by mouth once [...] Unremarkable. IMPRESSION IMPRESSION: No acute radiographic abnormality. Environmental Program Manager: CHAPARRITA Transcribe Date/Time: Oct 21 2024 5:46P [...] agreeable to care plan. Zhanna Hazel APRN.[facility]06-05-2025 History of Present illness Narrative* Zhanna Hazel APRN.[facility]UDIA - 10/21/2024 5:17 PM EDT [facility] Subjective Oral Fletcher is a [...] of breath and feels tightness when she takesa deep breath in. Denies any other symptoms. The history is provided by the patient. No sign language teacher was used. Cough Review of Systems Constitutional: [...] Take 1 tablet by mouth once daily. Zmixegwg-Hb-Sft-Fe-FA tab Take 1 tablet by mouth once [...] Unremarkable. IMPRESSION IMPRESSION: No acute radiographic abnormality. Environmental Program Manager: CHAPARRITA Transcribe Date/Time: Oct 21 2024 5:46P [...] Hazel APRN.CNP MDM Procedures documented in this encounterTr[facility]05-02-2025 NoteHNO ID: [id number] Author: NATALIIA VAIL LISW Service: ? Author Type: Station Supervisor Type: Progress Notes Filed: 09/17/2024 11:06 Note Text: GENERAL PSYCHOLOGY Session #: 1 (session count starts after PSYL NEW EVAL visit) Session conducted by phone due to poor Zoom receptionist. She was unable to link to [employer] SUBJECTIVE: patient says she is doing "ok", but describes a lot of OCD behaviors [...] had occasional crying spells. States her is "good" and is sleeping through the night. Partner [...] MODALITIES: Solution Focused Psychotherapy PROGRESS TO DATE: Director Erp Progress: Condition at intake Short Term Condition: Progress GOALS/OBJECTIVES/INTERVENTIONS: Treatment plan: discussed asking OBGYN to send last refill to a different pharmacy Recommended M-IOP and she is interested Consult to Psychiatry placed Phone numbers were sent via [employer] She was advised of my BERT, though I will be available to her for the next month. Suicide protocol sent via [employer] Approximately 45 minutes were spent with the patient doing therapy. [facility] Discharge summary [facility] Medical Records Department [address] [place] [address] Emergency Department Summary 08/17/24 MR#: [id number] Acct: [id number] Name: ORAL FLETCHER Rep #:[id number] : 2005 19 From: Blane Alfred MD [...] Denies any dysuria. No fever. Last menstrual p eriod was 1 to 2 weeks ago. She [...] Negative for guarding, rigid, hepatomegaly, splenomegaly, hernia, mass,pulsatile mass or rebound tenderness present Back/Spine no [...] home and treated as a kidney stone. [place] for pain. Motrin. Fluids. Urine strainer. Urology [...] 45.2 L Lymph % (Auto) 45.9 H [place] % (Auto) 6.6 Eos % (Auto) 1.7 [...] Clarity Clear Urine pH 7.0 Ur Specific [place] 1.010 Urine Protein 30 H Urine Glucose [...] stranding or urothelial thickening seen. Reading Location: [facility] CT of the abdomen pelvis with IV [...] in your bladder your pain should resolve. [place] for severe pain. Otherwise you can use [...] best way to prevent kidneystones. Print Language: Welsh Disposition Disposition: Home, Self Care What to do if you have Problems For any increased pain, shortness of breath, bleeding, nausea or vomiting, chestpain, or any unexpected problems, contact your Primary Care Provider. Call [facility] ([phone]) or report tothe closest Emergency Room. Call 911 if necessary. 08/17/24 0151 Cosigner Signature (if applicable): CC: No Primary Care Physician ~ Signed [facility]04-01-2025 Radiology Diagnostic study note [facility] Imaging Services [address] [place], [place] [id number] Abdomen/Pelvis W IV Cont ONLY MR#: [id number] Acct: [id number] Name: ORAL FLETCHER Rep #: [id number] : 2005 F 19 From: Sd Jasso MD PCP: Care Physician,No Primary Status: REG ER Study:Abdomen/Pelvis W IV Cont ONLY Date of E xam: 08/17/24 Exam# [id number] Ordering Dr: Enid Alfred MD PROCEDURE: ABDOMEN/PELVIS [...] stranding or urothelial thickening seen. Reading Location: [id number] CC: Dr. Blane Alfred MD; No Primary Care Physician ~ Environmental Program Manager: Signed [facility]03-12-2025 NoteHNO ID: [id number] Author: TRAN GAYTAN APRN.CNM Service: ? 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 Oral Fletcher is a 18 year old year old here for 6 week visit. Started on Zoloft 25 mg PO daily 1 month ago and reports mood has drastically improved. Denies any feelings of depression and feels that anxiety has been decreased as well. 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 Delivery Summary: on 05/25/2024 by Marcos epidural at 37 wks, 4 days, 8:34 PM. Male Westley Reyes. ROS/ Recovery: Feeding: Bottle feeding problems: None Menses since delivery: none Menstrual pattern prior to : Irregular periods [place] since delivery: Not resumed Depression: denies, improved [...] discussed with the Patient or Patient's Authorized Health Records Technology Teacher. As applicable, any other physician, advance practice provider, medical student, or other health professional student that will be observing or involved in the sensitive examination for educational or training purposes was discussed with the Patient or Authorized Health Records Technology Teacher. The Patient or Authorized Health Records Technology Teacher has agreed to proceed with the sensitive [...] external genitalia normal, normal Bartholin's glands, urethra, Cherry's glands, no vulvar lesions, no cervical lesions, [...] RTC for insertion of IUD Tran Gaytan APRN.[facility]03-12-2025 History of Present illness Narrative* Tran Gaytan APRN.[facility] - 07/28/2024 1:15 PM EDT VISIT Patient declined mortising machine operator. Oral Fletcher is a 18 year old year old here for 6 week visit. Started on Vehjpp09 mg PO daily 1 month ago and reports mood has drastically improved. Denies any feelings of depression and feels that anxiety has been decreased as well. 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 Delivery Summary: on 05/25/2024 by Marcos epidural at 37 wks, 4 days, 8:34 PM. Male Westley Reyes. ROS/ Recovery: Feeding: Bottle feeding problems: None Menses since delivery: none Menstrual pattern prior to : Irregular periods [place] since delivery: Not resumed Depression: denies, improved [...] discussed with the Patient or Patient's Authorized Health Records Technology Teacher. As applicable, any other physician, advance practice provider, medical student, or other health professional student that will be observing or involved in the sensitive examination for educational or training purposes was discussed with the Patient or Authorized Health Records Technology Teacher. The Patient or Authorized Health Records Technology Teacher has agreed to proceed with the sensitive [...] external genitalia normal, normal Bartholin's glands, urethra, Cherry's glands, no vulvar lesions, no cervical lesions, good vaginal support, physiologic discharge present, normal appearing perineal body and perianal region BIMANUAL: uterus normal size, shape and consistency, no adnexal masses, non- tender, and no cervicalmotion tenderness NEURO: alert and oriented x3,exam grossly non-focal EXTREMITIES: normal ASSESSMENT AND PLAN: 18 year old status post with normal course. Contraception plan: IUD - Paraguard - Patient desires non hormonal option because of possible changes to mood. Advised to use condoms prior to IUD insertion. Follow up: RTC for insertion of IUD Tran Gaytan APRN.CNM documented in [facility]Tr[facility]25 NoteHNO ID: [id number] Author: SAROJ EARLY LISW Service: ? Author Type: Station Supervisor Type: Progress Notes Filed: 07/15/2024 08:19 Note Text: Summary: [facility] Consult Follow Up Review of referral with patient. Was patient aware of [facility] referral placement by provider?Yes Is the patient currently connected for care : No If not connected to Care are they agreeable to referral?Yes If agreeable to referral, are they:Internal Comment: [facility] psychology Assisted in making appt at: [facility] psychiat[facility] Appointment date and time: 06/24/24 Current priority status of the referral Medium Additional information SW did not speak to patient directly. Patient referred to [facility] 06/17/24 and had appointment with [facility] psychology 06/24/24.[facility]02-07[facility] Instructions* Patient Instructions* Tran Gaytan ESAU.CNM - 06/25/2024 10:10 AM EST Here are some links for wonderful Providers here in the community and surrounding areas. Do not hesitate to contact their offices, many are offering virtual visits during this time. [phone]-HGWR0NNOV - [place] Maternal Mental Health Hotline If you are in suicidal crisis, please call or text 9-139-279-TALK ( ) or visit the National Suicide Prevention Lifeline website. mchb.[facility] centera.gov [facility] Psychology, Psychiatry, Counseling Connect with therapist/ can do virtual visits [phone] Referral to the [facility] for Women's Behavioral Health To schedule an appointment, please call the [facility] for Behavioral Health Appointment Line: [phone] option 1 Counseling Center - [address] [place] [address] [facility] [address] [place] [address] [facility] [address] [place] [address] [facility] [address] [place] [address] Ladi Conteh MD [address] [place] [address] [facility] [address] [facility], [address] [place] [address] [facility] Psychiatric Services [address] [place] [address] [facility] Counseling Services [place] / [place] [phone]/ [phone] Wendy Lopez [address] [facility] [address] [facility] [phone] Aves of Counseling and Mediation [place] / [place] [phone] Behavioral [facility] services [facility] [address] [place] [address]/ [place] [phone] Chantell Bo, JOHNNIE, CLC [facility] Family Therapy Workshops, telehealth and at home visits. [phone] Humanistic counseling center 20 locations [place], [place], [place], [place], [place], [place], [place], [place], [place], [place], [place], [place], [place], [place], [facility], [place], [place] ,[facility], [place], [place],[facility], [place], [place], [facility] [place], [place], [place] www.Xiimo [phone] Psychotherapy resources outside of [facility] are listed below [facility] SNSplus Psychotherapy Web: https://www.Yushino/ Support International Online Provider Directory https://Space Ape/ Insight Counseling https://Moda Operandi/ Xola for Behavioral Health and Wellness Web: https://NexImmune/ Medcurrent Effective Living Web: https://RGB Networks/ LifeStance Web: https://Cleverbug.EVOFEM/location/state/[place]/ [facility] Health Web: https://www.[facility].org/ [facility] Web: https://World First/ Recovery Resources Mental health and substance abuse help Web: https://www.itembases.SportsMEDIA Technology & RESOURCES Support International Direct peer support and connection to professional resources Non-Emergency Helpline Phone: / Text: [phone] Web: https://www..net/ Online Provider Directory: https://Space Ape/ Online Support Meetings: https://www..net/get-help/hkb-fyzqjz-mitfvez-meetings/ REY Baby and Intensive Care Medicine Specialist Services Web: https://wwwMoSo/ MotherToBaby Expert information on medication use during and Text: [phone] Web: https://mothertobaby.org/ NATIONAL REGISTRY FOR PSYCHIATRIC MEDICATIONS Currently studying the safety of antidepressants, ADHD medications and atypical antipsychotics taken during TO PARTICIPATE CALL TOLL-FREE: Web: https://womensmentalhealth.org/research/pregnancyregistry/ Support Groups: [facility]- Follow on facebook Baby Bistro support group led by [facility] department [facility] Mamas - Support Group [facility].org The POEM support group [phone] Www.poemonline.org Follow on facebook - JOSIANE smith Online support meetings PSI https://www..net/get-help/tig-tdaqqf-fbvgbwx-meetings/ [facility] momsheryl and me virtual support group 11:30-1pm Support for mothers and new babies and toddlers [place] childbirth education: Childbirth @[facility].org or call [phone] CRISIS: CRISIS HOTLINE [phone], 911 or go to the nearest ER. [facility] [phone] / [facility] [phone] https://www.[facility].org Crisis text line text the word "HOME" to 304[address] [facility] [address] megan [address] [facility] [address] www.Agility Communications Samra Ku clinical counseling [address] [address] www.[facility] University Medical CenterriNanophotonica.EVOFEM [phone] [facility] psychotherapy Raisa Perez [facility]ENT[facility]-S [address] [facility] www.MuscleGenes [phone]/ [place] [phone] They all offer virtual. All work with trauma Support groups Online support meetings PSI https://www..net/get-help/rgv-otnvcl-hejesyo-meetings/ Here are the support groups they offer: [...] of each month Location: [facility] [address] [place] [address] Room 122 (library room) 7-8:00 p.m. When you enter the [facility] parking lot off of [address] the entrance door closest to our meeting room is on the front of the building toward the right. For those who are more comfortable with a virtual platform, Acsis offers online support group options several days of the week. To register for an online group or to find out more about POBevy, website at: https://mhaohio.org/get-help/yyecifgl-stodpl-xummff/poCorgenix-services/ offer a confidential helpline: private Facebook group is called [facility] Here are the groups they offer: Traumatic childbirth resources: Http://pattch.org/ https://www.Cell TherapeuticsmiyaAudioCompass/ documented in this encounterTrumbull Memorial Hospital02-07-2025 NoteHNO ID: [id number] Author: TRAN GAYTAN APRN.CNM Service: ? Author Type: Rnfa Type: Progress Notes Filed: 06/25/2024 10:12 Note Text: VIRTUAL VISIT PROGRESS NOTE This is a virtual visit using CardioDx Zoom Video Visit. It required patient-provider interaction for the medical decision making as documented below. I have communicated my name and active licensure. The patient's identity and physical location were verified at the time of this visit. Either the patient or their legal communications representative has been informed of the risks and benefits of -- and alternatives to -- treatment through a remote evaluation and consents to proceed with the evaluation remotely. Oral Fletcher is a 18 year old female seen for feelings of depression. She was referred to woman's behavioral health services for counseling and completed intake via phone yesterday. Received message from social security specialist: I just did a psych eval on [...] you please contact her? Patient reports feeling "anxious and stressed out most of the time". Increased worry that baby is going to get sick. Does not like baby to be around anyone. Does not feel comfortable leaving baby with family or ending machine operator. Initially thought she was just "tired", but partner noticed the change in her behavior. Some days feeling sad, tearful "for no reason". Appetite fluctuating. Able to care for self and . Reports 2 weeks ago having a migraine so bad that she was having thoughts of banging her head against something. Also had thoughts of "Just not being here anymore". She was taking Tylenol but it was [...] anxiety disorder - ICD9: 300.02, ICD10: F41.1 [place] Depression Scale Total: 23 YOUNG- 12 Denies [...] the patient/family/caregiver, and ordering medications, tests, or proceduresAvita Health System [facility] Hospital02-07-2025 History of Present illness Narrative* Tran Gaytan APRN.CNM - 06/25/2024 8:38 AM EST VIRTUAL VISIT PROGRESS NOTE This is a virtual visit using nGAPom Video Visit. It required patient- provider interaction for the medical decision making as documented below. I have communicated my name and active licensure. The patient's identity and physical location wereverified at the time of this visit. Either the patient or their legal communications representative has been informed of the risks and benefits of -- and alternatives to -- treatment through a remote evaluation andconsents to proceed with the evaluation remotely. Oral Fletcher is a 18 year old female seen for feelings of depression. She was referred to woman's behavioral health services for counseling and completed intake via phone yesterday. Received message from social security specialist: I just did a psych eval on Oral and I told her to contact you mari so you could possibly start aly an SSRI. About two weeks ago she [...] If she does not reach out to youcan you please contact her? Patient reports feeling "anxious and stressed out most of the time". Increased worry that baby is going to get sick. Does not like baby to be around anyone. Does not feel comfortable leaving baby with family or ending machine operator. Initially thought she was just "tired", but partner noticed the change in her behavior. Some days feeling sad, tearful "for no reason". Appetite fluctuating. Able to care for self and . Reports 2 weeks ago having a migraine so bad that she was having thoughts of bangingher head against something. Also had thoughts of "Just not being here anymore". She was taking Tylenol but it was not working and had thoughts of just taking the entire bottle. Migraine has resolved.No current thoughts of self harm or harm [...] anxiety disorder - ICD9: 300.02, ICD10: F41.1 [place] Depression Scale Total: 23 YOUNG- 12 Denies [...] appropriate examination, counseling and educating the patient/family/caregiver, andordering medications, tests, or procedures documented in this encounterTrumbull Memorial Hospital02-06-2025 Telephone encounter Note * Telephone Encounter - Amelia Martinez RN - 06/24/2024 11:38 AM EST Spoke with patient. Scheduled for a virtual visit tomorrow. Amelia Martinez RN [facility]02-06-2025 Miscellaneous Notes* Telephone Encounter - Amelia Martinez RN - 06/24/2024 11:38 AM EST Spoke with patient. Scheduled for a virtual visit tomorrow. Amelia Martinez RN * Telephone Encounter - Kayla Miller RN - 06/24/2024 11:24 AM EST Left message for patient to call office. Kayla Miller RN * Telephone Encounter - Kayla Miller RN - 06/24/2024 11:24 AM EST Tran Gaytan APRN.CNM (Rnfa) Rotary Veneer Machine Operator Patient contacted by social work for women's behavioral health referral. Received this message: I just did a psych eval on Oral and I told her to contact you mari so you could possibly start aly an SSRI. About two weeks ago she [...] If she does not reach out to youcan you please contact her? Can we please reach out to patient and get a virtual visit with me scheduled. Tomorrow is fine! documented in this encounterTrumbull Memorial Hospital02-06-2025 Telephone encounter Note * Telephone Encounter - Kayla Miller RN - 06/24/2024 11:24 AM EST Left message for patient to call office. Kayla Miller RN [facility]02-06-20[facility] Telephone encounter Note* Telephone Encounter - Kayla Miller RN - 06/24/2024 11:24 AM EST Tran Gaytan APRN.CNM (Rnfa) Rotary Veneer Machine Operator Patient contacted by M-DAQ [facility] women's behavioral health referral. Received this message: I just did a psych eval on Oral and I told her to contact you [facility] so you could possibly start aly an SSRI. About two weeks ago she [...] If she does not reach out to youcan you please contact her? Can we please reach out to patient and get a virtual visit with me scheduled. Tomorrow is fine! [facility]02-06-2025 NoteHNO ID: [id number] Author: TRAN GAYTAN APRN.CNM Service: ? Author Type: Rnfa Type: Progress Notes Filed: 06/24/2024 10:47 Note Text: Patient contacted by M-DAQ for women's behavioral health referral. Received this message: I just did a psych eval on Oral and I told her to contact you [facility] so you could possibly start her on [...] me scheduled. Tomorrow is fine! Tran Gaytan APRN.[facility]02-[facility]-2025 History of Present illness Narrative* Tran Gaytan APRN.CNM - 06/24/2024 10:42 AM EST Patient contacted by social work for women's behavioral health referral. Received this message: I just did a psych eval on Oral and I told her to contact you mari so you could possibly start aly an SSRI. About two weeks ago she [...] If she does not reach out to youcan you please contact her? Can we please reach out to patient and get a virtual visit with me scheduled. Tomorrow is fine! Tran Gaytan APRN.CNM documented in this encounterTrumbull Memorial Hospital02-06-2025 NoteHNO ID: [id number] Author: NATALIIA VAIL LISW Service: ? Author Type: Station Supervisor Type: Progress Notes Filed: 09/17/2024 10:49 Note [...] agreement to participate Originating site for client [place] Originating site for provider [facility] appropriate for privacy No equipment failures, provided psychotherapy I have communicated my name and active licensure. The patient's identity and physical location were verified at the time of this visit. Either the patient or their legal communications representative has been informed of the risks [...] a copy of the consent form on CardioDx. The patient consented to a virtual visit and their location was confirmed. PRESENT: Child AGE: [age] year old RACE: White MARITAL STATUS: Living with significant other CHILDREN: Yes, son age one month Westley. 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 PAST MEDICAL HISTORY Diagnosis Date Anemia Depression/anxiety Ganglion cyst of wrist, left Irregular menses Low-lying placenta 01/26/2024 04/21/24- Resolved. Tran Gaytan APRN.CNM Repeat growth US at 32 weeks. Anitra Caldwell APRN.CNM PAST SURGICAL HISTORY Procedure Laterality Date DENTAL SURGERY HX 2015 ORTHOPEDICS SURGERY HX knee torn meniscus WRIST Left cyst on left wrist Current Outpatient Medications Medication Sig Kgpxyjpj-Fc-Vhm-Fe-FA tab Take 1 tablet by mouth once daily. With folic acid and DHA as covered by insurance. No current facility-administered medications for this visit. ALLERGIES Allergen Reactions Eucalyptus Rash Chemical burn Lactase Other: See Comments REFERRAL SOURCE: Reny Gaytan APRN CHIEF COMPLAINT: "I have been crazy overwhlmed, stressed out and worried over eveything." HPI: had been told in he past that she has "high anxiety", prior to . Has exacerbated since delivering [...] baby will become ill. Mood has been "up and down, bipolar"; will be ok and then immediately get tearful. Has been irritable and snappy with BF, then breaks down in tears. Pregancy went well, had a low placenta, and she didn't like being , which was not planned. She had plans to adopt. She is happy now that her son is here. Delivery went well, though she was "terrifed", only labored for 34 minutes. Sleep: is [...] because she felt hopele (more content not included)...[facility]01-30[facility] Instructions* Patient Instructions* Tran Gaytan APRN.KM - 06/17/2024 2:16 PM EST Here are some links for wonderful Providers here in the community and surrounding areas. Do not hesitate to contact their offices, many are offering virtual visits during this time. 7-238-6-ATMS7JAKK - [place] Maternal Mental Health Hotline If you are in suicidal crisis, please call or text 1-247-625-TALK ( ) or visit the National Suicide Prevention Lifeline website. mchb.hrsa.gov [facility] Psychology, Psychiatry, Counseling Connect with therapist/ can do virtual visits [phone] Ref[facility] to [facility] Women's Behavioral Health To schedule an appointment, please call the [facility] for Behavioral Health Appointment Line: [phone] option 1 Counseling [place] [address] [facility] [address] [place] [address] [facility] [address] [place] [address] [facility] [address] [place] [address] Ladi Conteh MD [address] [place] [address] [facility] [address] [facility], [address] [place] [address] [facility] Psychiatric Services [address] [place] [address] [facility] Counseling Services [place] / [place] [phone]/ [phone] Wendy Lopez [address] [facility] [address] [facility] [phone] Aves of Counseling and Mediation [place] / [place] [phone] Behavior[facility] [address] [place] [address]/ [place] [phone] Chantell Bo, JOHNNIE, CLC [facility] [facility] Family Therapy Workshops, telehealth and at home visits. [phone] Humanistic counseling center 20 locations [facility], [place], [place], [place], [place], [place], [facility], [place], [place], [place], [place], [place], [place], [facility], [place], [place] ,[facility], [place], [place],[facility], [facility], [place], [facility], [facility], [place] www.[facility] of littletonLXSNoverlake hospital medical centerL3 Psychotherapy resources outside of [facility] are listed below JustFamily Psychotherapy Web: https://www.Yushino/ Support International Online Provider Directory https://Space Ape/ [facility] https://Moda Operandi/ Partners for Behavioral Health and Wellness Web: https://NexImmune/ Center for Effective Living Web: https://BONESUPPORTliving.EVOFEM/ LifeStance Web: https://Cleverbug.EVOFEM/location/state/[place]/ [facility] Web: https://www.[facility].org/ The Centers Web: https://PhoneGuardnhAPE Systems.SportsMEDIA Technology/ Recovery Resources Mental health and substance abuse help Web: https://www.itembasesHashdoc & RESOURCES Support International Direct peer support and connection to professional resources Non-Emergency Helpline Phone: / Text: [phone] Web: https://www..net/ Online Provider Directory: https://Space Ape/ Online Support Meetings: https://www..net/get-help/oii-pebadr-mazmhug-meetings/ REY Baby and Intensive Care Medicine Specialist Services Web: https://Tarpon Biosystems/ MotherToSparkLix Expert information on medication use during and Text: [phone] Web: https://Quantros/ NATIONAL REGISTRY FOR PSYCHIATRIC MEDICATIONS Currently studying the safety of antidepressants, ADHD medications and atypical antipsychotics taken during TO PARTICIPATE CALL TOLL-FREE: Web: https://womensmentalhealth.org/research/pregnancyregistry/ Support Groups: [facility]- Follow on facebook Baby Bistro support group led by [facility] department Resilient Mamas - Support Group [facility].org The POEM support group [phone] Www.poemonline.org Follow on facebook - JOSIANE smith Online support meetings PSI https://www..net/get-help/ubq-oprzlk-qvuksen-meetings/ [facility] mommy and me virtual support group 11:30-1pm Support for mothers and new babies and toddlers [place] childbirth education: Childbirth @ccf.org or call [phone] CRISIS: CRISIS HOTLINE [phone], 911 or go to the nearest ER. [facility] [phone] / [facility] [phone] https://www.[facility].org Crisis text line text the word "HOME" to [phone] [facility] [address] [facility] [address] www.Agility Communications Samra Ku clinical counseling [address] [facility], [place] [address] [place] [address] www.MetaMaterials [phone] Holding space psychotherapy Raisa Elvinhayden HEAD OF ACADEMIC TECHNOLOGY HORSE IDENTIFIER-S [address] [facility] www.MuscleGenes [phone]/ Angelito [phone] They all offer virtual. All work with trauma Support groups Online support meetings PSI https://www..net/get-help/nhd-pnruxg-yopauca-meetings/ Here are the support groups they offer: Support of parents of 1 to 4 years old children POEM ( Outreach and Encouragement for Moms) offers free support for mothers experiencing depression, anxiety, and other mood and anxiety disorders. Masks are recommended but not required. No pre-registration required. Babies in arms welcome. meetings now take place on the and Friday of each month Location: [facility] [address] [place] [address] Room 122 (library room) 7-8:00 p.m. When you enter the [facility] parking lot off of [address] the entrance door closest to our meeting room is on the front of the building toward the right. For those who are more comfortable with a virtual platform, POEM offers online support group options several days of the week. To register for an online group or to find out more about POEM, website at: https://mhaohio.org/get-help/mbjddaam-zuylrj-btuffc/poem-services/ offer a confidential helpline: private Facebook group is called JOSIANE Smith Here are the groups they offer: Traumatic childbirth resources: Http://carlos.org/ https://www.JackedtiburcioPPDaimikaela.EVOFEM/ documented in this encounterTrumbull Memorial Hospital01-30-2025 NoteHNO ID: [id number] Author: TRAN GAYTAN APRN.CNM Service: ? Author Type: Rnfa Type: Progress Notes Filed: 06/17/2024 14:17 Note [...] in parent's room, does not feel rested [place] since delivery: Not resumed Emotional support: Yes [...] week visit and as needed Tran Gaytan APRN.[facility]01-30-2025 History of Present illness Narrative* Tran Gaytan APRN.KM - 06/17/2024 1:16 PM EST EARLY VISIT Oral Fletcher is a 18 [...] in parent's room, does not feel rested [place] since delivery: Not resumed Emotional support: Yes [...] needed Tran Gaytan APRN.CNM documented in this encounterTrumbull Memorial Hospital01-09-2025 [facility] Medical Records Department [address] [place] [address] Discharge Summary 05/27/24 0711 MR#: [id number] Acct: [id number] Name: ORAL FLETCHER Rep #: [id number] : 2005 18 From: Amelia Maya MD PCP: Care Physician,No Primary Status:ADM IN Location: [id number] Providers Date of Admission: 05/25/24 Date of [...] 1-2 and 6 weeks or as needed. [phone] Meaningful Use Info Meaningful Use Meaningful Use [...] Provider: Cherry Simons Primary Care Provider: Care Physician,Josee Primary [...] Amelia Maya MD; No Primary Care Physician [facility]ignedK[facility]01-08-2025 NoteHNO ID: [id number] Author: TOSHIA LACY RN Service: ? Author Type: Registered Nurse Type: Progress Notes Filed: 05/26/2024 08:50 Note Text: Patient delivered via by Dr. Schuler on 05/25/24 at [facility]. See OB history. [facility] Lacy [facility] History of Present illness Narrative* Toshia Lacy RN - 05/26/2024 8:38 AM EST Patient delivered via by Dr. Schuler on 05/25/24 at [facility]. See OB history. Toshia Lacy RN documented in this encounterTrumbull Memorial Hospital01-08-2025 Telephone encounter Note * Telephone Encounter - Ld Duckworth MA - 05/26/2024 8:28 AM EST Closing encounter. Patient delivered. Ld Duckworth MA [facility]01-08-2025 Miscellaneous Notes* Telephone Encounter - Ld Duckworth MA - 05/26/2024 8:28 AM EST Closing encounter. Patient delivered. Ld Duckworth MA documented in this encounterTrumbull Memorial Hospital01-07-2025 Telephone encounter Note * Telephone Encounter - Nora Haile LPN - 05/25/2024 3:10 PM EST Patient went to l&d for evaluation [facility]01-07-2025 Miscellaneous Notes* Telephone Encounter - Nora Haile LPN - 05/25/2024 3:10 PM EST Patient went to l&d for evaluation * Telephone Encounter - Nora Haile LPN - 05/25/2024 9:39 AM EST 37w4d . Ob patient called c/o irregular contractions yesterday and this morning reports "cramping" and contractions coming approximately every 3 minutes and are lasting 45 seconds to 1 min and painful when they occur. Patient has not timed contractions for 1 hour yet. Patient denies lof, no VB,and baby is active. Please advise if patient needs to come to office to be seen or go to L&D in contractions remain regular. documented in this encounterTrumbull Memorial Hospital01-07-2025 Evaluation note* Diagnosis Onset Date Resolution Status Admit Date (spontaneous vaginal delivery) acute May 25 11:24am 37 weeks gestation of resolved May 25 11:24am History of depression resolved May 11:24am Rubella non-immune status, antepartum resolved May 25 11:24am [facility] Work Phone: 1(542) 506-423801-07-2025 Telephone encounter Note* Telephone Encounter - Nora Haile LPN - 05/25/2024 9:39 AM EST 37w4d . Ob patient called c/o irregular contractions yesterday and this morning reports "cramping" and contractions coming approximately every 3 minutes and are lasting 45 seconds to 1 min and painful when they occur. Patient has not timed contractions for 1 hour yet. Patient denies lof, no VB,and baby is active. Please advise if patient needs to come to office to be seen or go to L&D in contractions remain regular. [facility]12-31-2024 Progress note* Quick Notes - Cherry Coleman MD - 05/18/2024 2:55 PM EST DM-Pt doing well. Denies vaginal Bleeding, Leaking fluid, or regular Contractions. Pt reports good movement Physical Exam: Gen: female in no apparent distress Abd: soft, Gravid. Non tender to palpation. See flow sheet Vertex on bedside ultrasound. The sensitive examination was discussed with the Patient or Patient's Authorized Health Records Technology Teacher. Asapplicable, any other physician, advance practice provider, medical student, or other health professional student that will be observing or involved in the sensitive examination for educational or training purposes was discussed with the Patient or Authorized Health Records Technology Teacher. The Patient or Authorized Health Records Technology Teacher has agreed to proceed with the sensitive [...] GROUP B STREP PCR Cherry Simons MD [facility] Work Phone: 1(798) 341-318112-31-2024 Miscellaneous Notes* Quick Notes - Cherry Coleman MD - 05/18/2024 2:55 PM EST DM-Pt doing well. Denies vaginal Bleeding, Leaking fluid, or regular Contractions. Pt reports good movement Physical Exam: Gen: female in no apparent distress Abd: soft, Gravid. Non tender to palpation. See flow sheet Vertex on bedside ultrasound. The sensitive examination was discussed with the Patient or Patient's Authorized Health Records Technology Teacher. Asapplicable, any other physician, advance practice provider, medical student, or other health professional student that will be observing or involved in the sensitive examination for educational or training purposes was discussed with the Patient or Authorized Health Records Technology Teacher. The Patient or Authorized Health Records Technology Teacher has agreed to proceed with the sensitive [...] PCR Cherry Simons MD documented in this encounterTrumbull Memorial Hospital12-31-2024 Instructions* Patient Instructions* Indu Muhammad MA - 05/18/2024 2:30 PM EST SEQUENTIAL SCREENINGS The [facility] offers sequential screenings for women [...] testing. It will require an appointment withour magnetic testing technician. This is not an ultrasound performed [...] the above symptoms, contact our office at [phone] and ask to speak with anurse. After hours, you can call doctors registry at [phone] OR call [facility] at [phone] ask to have the doctor azure principal solution specialist paged. If you consider this an emergency, dial 9-1-0 or go to your nearest emergency department. NEED HELP? Are you dealing with a violent or abusive relationship? Are you a victim of rape or sexual assult? Call [facility] ([place]) 24 hour Crisis Hotline: 658.900.4526 or 329-105-6446. MANUAL Your Guide to a Healthy manual is now on-line. Visit [facility].org/HealthyPregnancyGuide to download your free copy documented in this encounterTrumbull Memorial Hospital12-24-2024 Miscellaneous Notes* Quick Notes - Anitra [...] 5. Uterine size-date discrepancy in third trimester -[facility] 04/21 normal PTL precautions reviewed and when to call RTO in one week Anitra Caldwell APRN.CNM documented in this encounterTrumbull Memorial Hospital12-24-2024 Progress note* Quick Notes - Anitra [...] RTO in one week Anitra Caldwell APRN.CNM [facility]12-24-2024 Instructions* Patient Instructions* Anitra Caldwell APRN.CNM [...] and Prevention: www.cdc.gov/groupbstrep/ March of Dimes http://www.marchofdimes.org//g oabs-a-acvvt-infection.aspx Preparing for labor: Eat dates to promote [...] an easy pie crust in the food safety field specialist. Add soaked dates to homemade nut butter for a sweet treat. Add dates to suzy homemade salad dressing. Add dates during easily with these yummy (paleo friendly) bars made from dates. What Is Red Raspberry [place] Tea? Red raspberry leaf tea comes from [...] , and too. How Much Red Raspberry [place] Tea to Drink? With your doctor or assistant branch manager s approval, start with 1 cup of [...] because of uterine cramping. Is Red Raspberry [place] Tea the Same as Raspberry [place] Tea? How About Plain Old Raspberry Tea? Sometimes. You really need to look at the ingredients to be sure. Note that there is no difference between red raspberry leaf and raspberry leaf. [employer] or AccelOps Raspberry [place] Tea are two good brands. The red [...] of RRLT outlined in this article. The [employer] www.Flipps I named this 'circuit' after my friend Hayley Sen, who shared and discussed it with me when I was working with a client whose labor seemed to be stalled out and no longer progressing... This circuit is useful to help get the baby lined up, ideally, in the "Left Occiput Anterior" (BERT) Position, both before labor begins and when some corrections need to be done during labor. Prenatally, this position set can help to rotate a baby. As a natural method of induction, this can help get things going if baby just needed a gentle nudge of position to set things off. To the best of my knowledge, this group of positions will not "hurt" a baby that is already lined up correctly." - April Saab Before you Begin..... This [...] in your head. Step Three: Moving and Marixa Lungdolly, walk stairs facing sideways, 2 at a time, (have a paper mill manager downstairs of you!), take a walk outside [...] the pelvis. 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 RESOURCES: perineal massage. [facility]: [facility]. Cancer Research UK and Amada44 - Own work based on: Diagram showing the anatomy of the vulva ARTIE 285.svg by Cancer Research UK.., CC BY-SA 3.0, https://Pivit Labs.Zameen.com.SportsMEDIA Technology/w/index.php?cgyuh=[email or web address] [place] Database of Systematic Reviews . perineal massage for reducing perineal trauma. [place] Systematic Review - Intervention Version published: 15 September 2012. https://doi-org.ccmain.michigannet.org/10.1002/34894895.WM154676.pub3 Galindo Cid et al. Effectiveness of perineal massage in reducing perineal trauma and post- morbidities: A randomized controlled trial: Journal of Obstetrics and Gynecology Research. 44 (8). 7549-3062. 2018. SIGNS AND SYMPTOMS OF LABOR 1. Contractions every 10 minutes or more often 2. Clear, pink, or brownish fluid (water) leaking from vagina 3. Feeling that baby is pushing down, pressure 4. Low, dull backache 5. Cramps that feel like a period 6. Cramps with or without diarrhea If you notice any of the above symptoms, contact our office at [phone] and ask to speak with anurse. After hours, you can call doctors registry at [phone] OR call [facility] at [phone] ask to have the doctor azure principal solution specialist paged. If you consider this an emergency, dial 9--1 or go to your nearest emergency department. NEED HELP? Are you dealing with a violent or abusive relationship? Are you a victim of rape or sexual assult? Call [facility] [place] ([facility] 24 hour Crisis Hotline: 820.523.5987 or 539-248-6314. MANUAL Your Guide to a Healthy manual is now on-line. Visit [facility].org/HealthyPregnancyGuide to download your free copy documented in this encounterTrumbull Memorial Hospital12-18-2024 Instructions* Patient Instructions* Ld Duckworth MA - 05/05/2024 1:43 PM EST SEQUENTIAL SCREENINGS The [facility] offers sequential screenings for women [...] testing. It will require an appointment withour magnetic testing technician. This is not an ultrasound performed [...] the above symptoms, contact our office at [phone] and ask to speak with anurse. After hours, you can call doctors registry at [phone] OR call [facility] at [phone] ask to have the doctor azure principal solution specialist paged. If you consider this an emergency, dial or go to your nearest emergency department. NEED HELP? Are you dealing with a violent or abusive relationship? Are you a victim of rape or sexual assult? Call [facility] [place] ([place]) 24 hour Crisis Hotline: 288.714.7252 or 496-925-1162. MANUAL Your Guide to a Healthy manual is now on-line. Visit [facility].org/HealthyPregnancyGuide to download your free copy documented in this encounterTrumbull Memorial Hospital12-18-2024 Progress note* Quick Notes - Tran [...] for SD with GBS Tran Gaytan APRN.CNM [facility]12-18-2024 Miscellaneous Notes* Quick Notes - Tran [...] GBS Tran Gaytan APRN.CNM documented in this encounterTrumbull Memorial Hospital12-05-2024 Telephone encounter Note * Telephone Encounter - Amelia Armstrong RN - 04/22/2024 9:22 AM EST 3rd risk assessment form submitted 04/22/2024. Amelia Armstrong RN [facility]12-05-2024 Miscellaneous Notes* Telephone Encounter - Amelia Armstrong RN - 04/22/2024 9:22 AM EST 3rd risk assessment form submitted 04/22/2024. Amelia Armstrong RN documented in this encounterTrumbull Memorial Hospital12-04-2024 Note Indication Follow-up evaluation for placental [...] RDMS, RVT Read By: Deandra Reza M.D.MATERNAL [id number] Miscellaneous Notes* Quick Notes - Tran Gaytan [...] weeks Tran Gaytan APRN.CNM documented in this encounterTrumbull Memorial Hospital12-04-2024 Progress note* Quick Notes - Tran [...] reviewed RTO 2 weeks Tran Gaytan APRN.CNM [facility]12-04-2024 Instructions* Patient Instructions* Ld Duckworth MA - 04/21/2024 2:04 PM EST SEQUENTIAL SCREENINGS The [facility] offers sequential screenings for women [...] testing. It will require an appointment withour magnetic testing technician. This is not an ultrasound performed [...] the above symptoms, contact our office at [phone] and ask to speak with anurse. After hours, you can call doctors registry at [phone] OR call [facility] at [phone] ask to have the doctor azure principal solution specialist paged. If you consider this an emergency, dial 4--6 or go to your nearest emergency department. NEED HELP? Are you dealing with a violent or abusive relationship? Are you a victim of rape or sexual assult? Call [facility] ([place]) 24 hour Crisis Hotline: 934.521.9400 or 036-318-0712. MANUAL Your Guide to a Healthy manual is now on-line. Visit [facility].org/HealthyPregnancyGuide to download your free copy documented in this encounterTrumbull Memorial Hospital11-18-2024 NoteHNO ID: [id number] Author: ZAIN KEARNEY PT Service: ? Author Type: Physical Therapist Type: Progress Notes Filed: 04/05/2024 07:11 Note Text: 04/05/2024 [facility] PHYSICAL THERAPY [...] or scheduled additional follow-up appointments. Zain Kearney, [facility]11-11-2024 Progress note* Quick Notes - Tran [...] - RTO 2 weeks Tran Gaytan APRN.CNM [facility]11-11-2024 Miscellaneous Notes* Quick Notes - Tran [...] weeks Tran Gaytan APRN.CNM documented in this encounterTrumbull Memorial Hospital11-11-2024 Instructions* Patient Instructions* Roro Sanz MA - 03/29/2024 3:30 PM EST SEQUENTIAL SCREENINGS The [facility] offers sequential screenings for women [...] testing. It will require an appointment withour magnetic testing technician. This is not an ultrasound performed [...] the above symptoms, contact our office at [phone] and ask to speak with anurse. After hours, you can call doctors registry at [phone] OR call [facility] at [phone] ask to have the doctor azure principal solution specialist paged. If you consider this an emergency, dial 9--8 or go to your nearest emergency department. NEED HELP? Are you dealing with a violent or abusive relationship? Are you a victim of rape or sexual assult? Call [facility] ([place]) 24 hour Crisis Hotline: 680.623.1829 or 609-061-6308. MANUAL Your Guide to a Healthy manual is now on-line. Visit [facility].org/HealthyPregnancyGuide to download your free copy documented in this encounterTrumbull Memorial Hospital11-07-2024 Telephone encounter Note * Telephone Encounter - Gurdeep Somers RN - 03/25/2024 3:04 PM EST Lab notified along with patient. Gurdeep Somers RN [facility]11-07-2024 Miscellaneous Notes* Telephone Encounter - Gurdeep [...] patient. Robson Romero APRN.CNP documented in this encounterTrumbull Memorial Hospital11-07-2024 Telephone encounter Note * Telephone Encounter - Robson Romero APRN.CNP - 03/25/2024 2:58 PM EST Even if 3 hour is elevated, passed GTT. 2 hour is 60. Patient does not need do have last draw - recommend eating something. Please call lab/notify patient. Robson Romero APRN.CNP [facility]11-01-2024 Telephone encounter Note* Telephone Encounter - Amelia Martinez RN - 03/19/2024 2:47 PM EDT Called patient. OB visit scheduled. Amelia Martinez RN [facility]11-01-2024 Miscellaneous Notes* Telephone Encounter - Amelia [...] Thanks, Anitra Caldwell APRN.CNM documented in this encounterTrumbull Memorial Hospital11-01-2024 Telephone encounter Note * Telephone Encounter - Anitra Caldwell APRN.CNM - 03/19/2024 1:01 PM EDT Can you please assist patient in getting SD visit 2 weeks from last visit. She is not scheduled. This will need scheduled out side of centering due to gestational age. Thanks, Anitra Caldwell APRN.CNM [facility]11-01-2024 Progress note* Quick Notes - Anitra Caldwell APRN.CNM - 03/19/2024 12:55 PM EDT ISHAS: Oral Fletcher is a [...] RTO in 2 weeks Anitra Caldwell APRN.CNM [facility]11-01-2024 Miscellaneous Notes* Quick Notes - Anitra [...] weeks Anitra Caldwell APRN.CNM documented in this encounterTrumbull Memorial Hospital10-31-2024 History of Present illness Narrative* Melody Love PA-C - 03/18/2024 1:34 PM EDT This note was created using Kark Mobile Educationriter. Subjective Oral Fletcher is a 18 year [...] Take 50 mg by mouth once daily. Kyqowewp-Wj-Sms-Fe-FA tab Take 1 tablet by mouth once [...] PCR, ROUTINE - STREP A MOLECULAR (POC) Melody Love PA-C documented in this encounterTrumbull Memorial Hospital10-29-2024 History of Present illness Narrative* Indu Muhammad MA - 03/16/2024 3:50 PM EDT [...] severely ill: Yes Patient denies history of Guillain-[place] Syndrome (a severe paralytic illness): Yes Tdap Adacel injection was given without incident. See immunizations for details of immunizations administered today. VIS sheet provided: Yes Provider Javi was present in office at time of injection. Indu Muhammad MA documented in this encounterTrumbull Memorial Hospital10-29-2024 Instructions* Patient Instructions* Indu Muhammad MA - 03/16/2024 3:20 PM EDT SEQUENTIAL SCREENINGS The [facility] offers sequential screenings for women [...] testing. It will require an appointment withour magnetic testing technician. This is not an ultrasound performed [...] the above symptoms, contact our office at [phone] and ask to speak with anurse. After hours, you can call [facility] at [phone] OR call [facility] at [phone] ask to have the doctor azure principal solution specialist paged. If you consider this an emergency, dial or go to your nearest emergency department. NEED HELP? Are you dealing with a violent or abusive relationship? Are you a victim of rape or sexual assult? Call [facility] ([place]) 24 hour Crisis Hotline: 668.881.1070 or 512-613-4605. MANUAL Your Guide to a Healthy manual is now on-line. Visit [email or web address] to download your free copy documented in this encounterTrumbull [facility] Hospital10-09-2024 Instructions* Patient Instructions* Nadine Teresa MA - 02/25/2024 2:22 PM EDT SEQUENTIAL SCREENINGS The [facility] offers sequential screenings for women [...] testing. It will require an appointment withour magnetic testing technician. This is not an ultrasound performed [...] the above symptoms, contact our office at [phone] and ask to speak with anurse. After hours, you can call doctors registry at [phone] OR call [facility] at [phone] ask to have the doctor azure principal solution specialist paged. If you consider this an emergency, dial or go to your nearest emergency department. NEED HELP? Are you dealing with a violent or abusive relationship? Are you a victim of rape or sexual assult? Call [facility] ([place]) 24 hour Crisis Hotline: 921.284.3340 or 577-728-9265. MANUAL Your Guide to a Healthy manual is now on-line. Visit [email or web address] to download your free copy documented in this encounterTrumbull Memorial Hospital10-09-2024 Telephone encounter Note * Telephone Encounter [...] scheduled with the correct #5 centering group. [facility]10-[facility] Miscellaneous Notes* Telephone Encounter - Tierra [...] correct #5 centering group. documented in this encounterTrumbull Memorial Hospital10-09-2024 Progress note* Quick Notes - Tran Gaytan APRN.CNM - 02/25/2024 7:54 AM EDT THEODORE FLORENTINO S: Oral Fletcher is a 18 year [...] - RTO 4 weeks Tran Gaytan APRN.CNM [facility]10-09-2024 Miscellaneous Notes* Quick Notes - Tran Gaytan APRN.CNM - 02/25/2024 7:54 AM EDT THEODORE FLORENTINO S: Oral Fletcher is a 18 year [...] weeks Tran Gaytan APRN.CNM documented in this encounterTrumbull Memorial Hospital09-10-2024 Telephone encounter Note * Telephone Encounter - Toshia Lacy RN - 01/27/2024 1:45 PM EDT Patient notified. Toshia Lacy RN [facility]09-10-2024 Miscellaneous Notes* Telephone Encounter - Toshia Lacy RN - 01/27/2024 1:45 PM EDT Patient notified. Toshia Lacy RN * Telephone Encounter - Kayla Miller RN - 01/26/2024 12:21 PM EDT Left message for patient to call office. Kayla Miller RN * Telephone Encounter - Kayla Miller RN - 01/26/2024 12:21 PM EDT ----- Message from Anitra Caldwell APRN.CNM sent at 01/26/2024 11:43 AM EDT ----- Anatomy ultrasound reviewed. Please assist in scheduling follow up US at 32 weeks for placental location. Please place copy in OB chart. Anitra Caldwell APRN.CNM documented in this encounterTrumbull Memorial Hospital09-09-2024 Telephone encounter Note * Telephone Encounter - Kayla Miller RN - 01/26/2024 12:21 PM EDT Left message for patient to call office. Kayla Miller RN [facility]09-09-[facility] Telephone encounter Note* Telephone Encounter - Kayla Miller RN - 01/26/2024 12:21 PM EDT ----- Message from Anitra Caldwell APRN.CNAlexa sent at 01/26/2024 11:43 AM EDT ----- Anatomy ultrasound reviewed. Please assist in scheduling follow up US at 32 weeks for placental location. Please place copy in OB chart. Anitra Caldwell APRN.CNM [facility]09-09-[facility]24 Telephone encounter Note* Telephone Encounter - Amelia Armstrong RN - 01/26/2024 8:46 AM EDT 2nd risk assessment form submitted 01/26/2024. Amelia Armstrong RN [facility]09-09-[facility]24 Miscellaneous Notes* Telephone Encounter - Amelia Armstrong RN - 01/26/2024 8:46 AM EDT 2nd risk assessment form submitted 01/26/2024. Amelia Armstrong RN documented in this encounterTrumbull Memorial Hospital09-06-2024 Instructions* Patient Instructions* Anitra Caldwell APRN.CNM [...] the above symptoms, contact our office at [phone] and ask to speak with anurse. After hours, you can call doctors registry at [phone] OR call [facility] at [phone] ask to have the doctor azure principal solution specialist paged. If you consider this an emergency, dial 9-3-9 or go to your nearest emergency department. NEED HELP? Are you dealing with a violent or abusive relationship? Are you a victim of rape or sexual assult? Call [facility] ([place]) 24 hour Crisis Hotline: 546.709.2627 or 375-150-9879. MANUAL Your Guide to a Healthy manual is now on-line. Visit [email or web address] to download your free copy documented in this encounterTrumbull Memorial Hospital09-06-2024 Progress note* Quick Notes - Anitra Caldwell APRN.CNM - 01/23/2024 9:58 AM EDT ISHAS: Oral Fletcher is a 18 [...] call -RTO in 4wk Anitra Caldwell APRN.CNM [facility]09-[facility] Miscellaneous Notes* Quick Notes - Anitra [...] 4wk Anitra Caldwell APRN.CNM documented in this encounterTrumbull Memorial Hospital08-06-2024 Progress note* Quick Notes - Anitra [...] call -RTO in 4wk Anitra Caldwell APRN.CNM [facility]08-06-2024 Miscellaneous Notes* Quick Notes - Anitra [...] 4wk Anitra Caldwell APRN.CNM documented in this encounterTrumbull Memorial Hospital08-06-2024 Instructions* Patient Instructions* Ld Duckworth MA - 12/23/2023 10:16 AM EDT SEQUENTIAL SCREENINGS The [facility] offers sequential screenings for women [...] testing. It will require an appointment withour magnetic testing technician. This is not an ultrasound performed [...] the above symptoms, contact our office at [phone] and ask to speak with anurse. After hours, you can call doctors registry at [phone] OR call [facility] at [phone] ask to have the doctor azure principal solution specialist paged. If you consider this an emergency, dial 9-1- or go to your nearest emergency department. NEED HELP? Are you dealing with a violent or abusive relationship? Are you a victim of rape or sexual assult? Call [facility] ([place]) 24 hour Crisis Hotline: 730.254.2432 or 178-916-4125. MANUAL Your Guide to a Healthy manual is now on-line. Visit [email or web address] to download your free copy documented in this encounterTrumbull Memorial Hospital07-26-2024 History of Present illness Narrative* Willard Hsu APRN.COMPUTER GRAPHICS ILLUSTRATOR - 12/12/2023 3:05 PM EDT Subjective HPI HPI Oral Fletcher is a 18 year old female who presents today for CC of nausea/vomiting, is 14 weeks. Currently prescribed multiple anti nausea medications from algorithm design engineer. Tolerating fluids/solids, last void was just before [...] Take 1 tablet by mouth once daily. Jvqxgixb-Hx-Szi-Fe-FA tab Take 1 tablet by mouth once [...] ICD10: R11.0 Continue taking medication ordered by systems developer Red flag s/s discussed Work note provided Willard Hsu APRN.CLAUDIA documented in this encounterTrumbull Memorial Hospital07-24-2024 Telephone encounter Note * Telephone Encounter - Kayla Miller RN - 12/10/2023 9:34 AM EDT Pt notified and voiced understanding. Kayla Miller RN [facility]07-24-[facility]24 Miscellaneous Notes* Telephone Encounter - Kayla Miller RN - 12/10/2023 9:34 AM EDT Pt notified and voiced understanding. Kayla Miller RN * Telephone Encounter - Anitra Caldwell [...] beprescribed? Amelia Martinez RN documented in this encounterTrumbull Memorial Hospital07-24-2024 Telephone encounter Note * Telephone Encounter [...] IV hydrationas an option. Anitra Caldwell APRN.CNM [facility]07-23-[facility] Telephone encounter Note* Telephone Encounter - [...] medication she can beprescribed? Amelia Martinez RN [facility]07-12-2024 Instructions* Patient Instructions* Lisa Alamo LPN - 11/28/2023 2:17 PM EDT SEQUENTIAL SCREENINGS The [facility] offers sequential screenings for women [...] testing. It will require an appointment withour magnetic testing technician. This is not an ultrasound performed [...] the above symptoms, contact our office at [phone] and ask to speak with anurse. After hours, you can call doctors registry at [phone] OR call [facility] at [phone] ask to have the doctor azure principal solution specialist paged. If you consider this an emergency, dial 2-8-4 or go to your nearest emergency department. NEED HELP? Are you dealing with a violent or abusive relationship? Are you a victim of rape or sexual assult? Call [facility] ([place]) 24 hour Crisis Hotline: 782.448.7916 or 328-503-5773. MANUAL Your Guide to a Healthy manual is now on-line. Visit [email or web address] to download your free copy documented in this encounterTrumbull Memorial Hospital07-12-2024 Progress note* Quick Notes - Anitra [...] -RTO in 4 weeks Anitra Caldwell APRN.CNM [facility]07-12-2024 Miscellaneous Notes* Quick Notes - Anitra [...] weeks Anitra Caldwell APRN.CNM documented in this encounterTrumbull Memorial Hospital07-12-2024 Telephone encounter Note * Telephone Encounter - Anitra Caldwell APRN.CNM - 11/28/2023 12:57 PM EDT Order signed. Anitra Caldwell APRN.CNM [facility]07-12-2024 Miscellaneous Notes* Telephone Encounter - Anitra Caldwell APRN.CNM - 11/28/2023 12:57 PM EDT Order signed. Anitra Caldwell APRN.CNM * Telephone Encounter - Kayla Miller RN - 11/28/2023 12:33 PM EDT Pt is having Nuchal scan done today and needs order. Kayla Miller RN documented in this encounterTrumbull Memorial Hospital07-12-2024 Telephone encounter Note * Telephone Encounter - Kayla Miller RN - 11/28/2023 12:33 PM EDT Pt is having Nuchal scan done today and needs order. Kayla Miller RN [facility]07-02-2024 Telephone encounter Note* Telephone Encounter - Cristy Oliver RN - 11/18/2023 9:47 AM EDT risk assessment form submitted November 18, 2023. TRUE Ochoa, RN OB Clinical Navigator [phone] [facility]07-02-2024 Miscellaneous Notes* Telephone Encounter - Cristy Oliver RN - 11/18/2023 9:47 AM EDT 1st risk assessment form submitted November 18, 2023. TRUE Ochoa, RN OB Clinical Navigator [phone] documented in this encounterTrumbull Memorial Hospital07-01-2024 Progress note* Quick Notes - Anitra Caldwell APRN.CNM - 11/17/2023 9:47 AM EDT NOB, see progress note. Interested in Centering. Would like aneuploidy screening, will verify next visit. Anitra Caldwell APRN.CNM [facility]07-01-2024 Miscellaneous Notes* Quick Notes - Anitra Caldwell APRN.CNM - 11/17/2023 9:47 AM EDT NOB, see progress note. Interested in Centering. Would like aneuploidy screening, will verify next visit. Anitra Caldwell APRN.CNM documented in this encounterTrumbull Memorial Hospital06-28-2024 Instructions* Patient Instructions* Anitra Caldwell APRN.CNM - 11/14/2023 1:03 PM EDT Please select the following link to access the [facility] Your Guide to a Healthy . [email or web address] Aspirin 81mg by mouth once daily after 12 weeks documented in this encounterTrumbull Memorial Hospital06-28-2024 History of Present illness Narrative* Nora [...] accepted-excited Complaints: (!) Severe nausea/vomiting ([facility] at [facility]-feeling better on Zofran) OB History T0 [...] pre-existing diabetes: No No results found for: "ABORHD" BMI 22.81 kg/(m^2) Last Pap: History of [...] Partner: Name: Royce Mercado Age: 18 Occupation: [employer] Gender: Male PAST MEDICAL HISTORY Diagnosis Date [...] dysuria PHYSICAL EXAM: BP 98/60 Ht 5' 4.5" (1.64m) Wt 135 lb (61.2kg) LMP 08/21/2023 [...] hemoglobin electrophoresis. Patient: Accepts Reviewed midwifery and frame feeder services that are available. 2) Screening: Hemoglobin [...] prn. Anitra Caldwell APRN.CNM documented in this encounterTrumbull Memorial Hospital06-27-2024 Telephone encounter Note * Telephone Encounter - Tierra Way RN - 11/13/2023 1:06 PM EDT Attempted to call patient x2 with no answer. Left voicemail to return phone call [facility]06-27-2024 Miscellaneous Notes* Telephone Encounter - Tierra [...] voicemail. Samra Fatima MA documented in this encounterTrumbull Memorial Hospital06-27-2024 Telephone encounter Note * Telephone Encounter - Tierra Way RN - 11/13/2023 10:46 AM EDT Called patient back and I will plan on completing OB intake questions at 1:00 today [facility]06-27-2024 Telephone encounter Note* Telephone Encounter - Samra Fatima MA - 11/13/2023 9:19 AM EDT Attempted to call patient to go over new ob intake questions. No answer; left voicemail. Samra Fatima MA [facility]06-25-2024 History of Present illness Narrative* Gretchen [...] 11, 2023 10:56 AM documented in this encounterTrumbull Memorial Hospital06-19-2024 History of Present illness Narrative* Willard Hsu APRN.COMPUTER GRAPHICS ILLUSTRATOR - 11/05/2023 12:13 PM EDT Patient triaged at [facility]. Here today with continued vomiting, seen in [facility] last week/remedies attempted, now having dizziness. Is 9 weeks . I will refer to ER. In no apparent distress at time of triage. documented in this encounterTrumbull Memorial Hospital06-08-2024 Instructions* Patient Instructions* Floyd Louise APRN.CNP - 10/25/2023 12:51 PM EDT Nausea and vomiting Doxylamine (Unisom Sleeptab) Vitamin B6 25mg three times per day in combination with doxylamine 12.5mg at bedtime to prevent nausea. Kathi extract 125-250mg every six hours. documented in this encounterTrumbull Memorial Hospital06-08-2024 History of Present illness Narrative* Floyd Louise APRN.CNP - 10/25/2023 12:46 PM EDT Subjective HPI Nontoxic-appearing 7-week female presents urgent care chief complaint nausea. Duration of symptoms last 2 to 3 days. Associated symptoms nausea. States nausea is worse in the morning. Has not been seen by HOUSE RN at this point. Has tried some OTC [...] No evidence of dehydration. Will beestablished with HOUSE RN at the end of today's visit. Recommended [...] of care. This note was generated using Fingooroo software. It may contain errors in wording, punctuation, or spelling. Floyd Louise APRN.CLAUDIA documented in this encounterTrumbull Memorial Hospital04-16-2024 History of Present illness Narrative* Raysa Bennett PTA - 09/02/2023 2:14 PM EDT Program_ID:[id number] Access Code: [email or web address] URL: [email or web address] Date: 09-02-2023 Prepared By: Zain Kearney Program [...] as many reps. Pain: Pain Pain Level: ("It hurts a little bit") Pain Location: Knee - Left OBJECTIVE MEASURES WITH LEVEL OF FUNCTION: Form observed throughout session TREATMENT: Therapeutic Exercise: 1: *Clamshells x10, 2x10 with GTB 2x10 (GTB vended for [facility]) 2: *SL hip abduction series 2x10 each [...] 1441 DUARTE Ventura PT documented in this encounterTrumbull Memorial Hospital04-12-2024 History of Present illness Narrative* Jennifer [...] PATIENT PRESENTS WITH AN IMPLANTABLE OR ATTACHED FINANCE BUSINESS PARTNER: No RADIOLOGY DEPARTMENT: MR; Exam(s) Completed: Lower MSK: Knee, left PERIPHERAL IV DATA: Not applicable SIGNED BY: RT Dorys(R) August 29, 2023 10:00 AM documented in this encounterTrumbull Memorial Hospital04-10-2024 History of Present illness Narrative* Zhanna Hazel APRN.COMPUTER GRAPHICS ILLUSTRATOR - 08/27/2023 4:47 PM EDT Subjective Patient [...] history is provided by the patient. No sign language teacher was used. Review of Systems Constitutional: Negative. [...] plan. Zhanna Hazel APRN.CLAUDIA documented in this encounterTrumbull Memorial Hospital04-09-2024 History of Present illness Narrative* Zain Kearney PT - 08/26/2023 2:51 PM EDT Program_ID:[id number] Access Code: [email or web address] URL: [email or web address] Date: 08-26-2023 Prepared By: Zain Kearney Program [...] improved quad control 3 x 10 2: 4" heel taps with biofeedback to facilitate improved [...] 1455 Zain Kearney PT documented in this encounterTrumbull Memorial Hospital04-02-2024 History of Present illness Narrative* Zain Kearney PT - 08/19/2023 10:52 AM EDT Program_ID:[id number] Access Code: [email or web address] URL: [email or web address] Date: 08-19-2023 Prepared By: Zain Kearney Program [...] of Care: created on 08/19/23 through 11/11/23 [place] in home exercise program. Perform stairs without [...] Planned: 4 Planned Treatment Interventions: Therapeutic exercise (64722), Neuromuscular re- education (26499), Manual therapy (10583), Gait Training (19311), Patient/Family/Caregiver Education PLAN FOR NEXT VISIT: Assess [...] 1102 Zain Kearney PT documented in this encounterTrumbull Memorial Hospital03-14-2024 History of Present illness Narrative* Mayda [...] space, with a small knee joint effusion. Environmental Program Manager: CHAPARRITA Transcribe Date/Time: Jul 31 2023 2:39P [...] Mayda Solares D.O. M.P.H. documented in this encounterTrumbull Memorial Hospital03-14-2024 History of Present illness Narrative* Tierra [...] PATIENT PRESENTS WITH AN IMPLANTABLE OR ATTACHED FINANCE BUSINESS PARTNER: No RADIOLOGY DEPARTMENT: General X-ray: Exam(s) Completed: Lower Extremity X- Ray(s): Knee, AP / Lat / Tunne / Merchant Left and Wt. Bearing PERIPHERAL IV DATA: Not applicable SIGNED BY: RT Lei(R) July 31, 2023 2:21 PM documented in this encounterTrumbull Memorial Hospital11-15-2023 History of Present illness Narrative* John [...] severe. John Crowe MD documented in this encounterTrumbull Memorial Hospital10-03-2023 History of Present illness Narrative* Tierra [...] 18, 2023 12:13 PM documented in this encounterTrumbull Memorial Hospital10-03-2023 History of Present illness Narrative* Tierra [...] 18, 2023 11:57 AM documented in this encounterTrumbull Memorial Hospital09-06-2023 History of Present illness Narrative* Floyd Louise APRN.COMPUTER GRAPHICS ILLUSTRATOR - 01/22/2023 6:17 PM EDT Images from [...] of care. This note was generated using Fingooroo software. It may contain errors in wording, punctuation, or spelling. Floyd Louise APRN.CLAUDIA documented in this encounterTrumbull Memorial Hospital07-06-2023 Instructions* Patient Instructions* Floyd Louise APRN.CNP [...] or mouth and then touchesanother person directly (duyf-mq-woht contact) or indirectly (ktji-le-olshen, such as doorknob, telephone, toys). It is [...] every four months on our web site ([email or web address]). Information below was obtained from "Up to date" Last literature review version 19.2: September 2010 This topic last updated: January 03, 2010 documented in this encounterTrumbull Memorial Hospital07-06-2023 History of Present illness Narrative* Floyd Louise APRN.COMPUTER GRAPHICS ILLUSTRATOR - 11/21/2022 1:32 PM EDT Subjective HPI Nontoxic-appearing female presents to urgent care with chief complaint of upper respiratory tract like infection. Duration of symptoms 2 days. Associated symptoms sore throat, nasal congestion, nasaldischarge and nonproductive cough. Patient denies the use of any cufv-qao-urvsnjk medications or home remedies for symptom management. [...] of care. This note was generated using Fingooroo software. It may contain errors in wording, punctuation, or spelling. Floyd Louise APRN.CLAUDIA documented in this encounterTrumbull Memorial Hospital03-17-2023 History of Present illness Narrative* Gretchen [...] 02, 2022 11:04 AM documented in this encounterTrumbull Memorial Hospital11-21-2022 History of Present illness Narrative* Zhanna Hazel APRN.CLAUDIA - 04/08/2022 5:30 PM EST Patient came in with complaints of cat bite on left ring finger. Patient says she is bit yesterday.Patient says is extremely swollen and painful and numb. Upon examining the finger patient does havesignificant swelling and erythema. Patient has yellow-green liquid seeping out around the nail. Patient works at the [employer] should not 100% sure the cat had any of its shots. At this time patient is being sent to the ER due to loss of feeling in the finger swelling and erythema. Patient wasokay with this care plan. documented in this encounterTrumbull Memorial Hospital10-27-2022 History of Present illness Narrative* Mayda [...] Denies any pain today. documented in this encounterTrumbull Memorial Hospital10-19-2022 History of Present illness Narrative* June Staton PT - 03/06/2022 11:29 AM EDT Episode [...] 02/04/22 through 04/06/22 Goals updated on 03/06/2022. [place] in home exercise program. (Met) Patient will [...] Patient to be seen for Therapeutic exercise (97164);Neuromuscular re-education (06948);Manual therapy (03774);Gait Training (95779);Patient/Family/Caregiver Education PLAN FOR NEXT VISIT: May add lunges, mini squats, increase to 6"step. SUBJECTIVE: Patient Reason for Visit: Pt states [...] with R heel touches to floor on 4"step 2 x 15 7: R sidelying clamshells [...] 45 June Staton PT documented in this encounterTrumbull Memorial Hospital10-12-2022 History of Present illness Narrative* June [...] 47 June Staton PT documented in this encounterTrumbull Memorial Hospital10-10-2022 History of Present illness Narrative* June [...] 45 DUARTE Ventura PT documented in this encounterTrumbull Memorial Hospital10-07-2022 History of Present illness Narrative* June [...] 0 Degrees L Knee Flexion: 147 Degrees ("Still a little tight, but not as bad as it was.") Gait Gait Observation: Pt continues to ambulates [...] 45 June Staton PT documented in this encounterTrumbull Memorial Hospital09-19-2022 History of Present illness Narrative* June [...] of Care: created on 02/04/22 through 04/06/22 [place] in home exercise program. Patient will decrease [...] Planned: 16 Planned Treatment Interventions: Therapeutic exercise (45824);Neuromuscular re- education (20102);Manual therapy (39539);Gait Training (80011);Patient/Family/Caregiver Education;E-Stim Attended/TENS (22513) PLAN FOR NEXT VISIT: Review HEP. Progress [...] today for Pt states she has been "doing OK" since surgery. She has "been walking on it some" and notes that it,"hurts the most when sleeping". Takes the brace off sometimes, but usually puts back on when wakes up in middle of the night. Ambulating with one crutch and feels she is putting about 60% weight on L LE. Works at [employer] so lots of walking, attends [employer] and walks a lot at school. Patient Goals: To get back to doing all my activities at work. Functional Limitations: walking in the community;physical activities;recreational activities;sleeping Prior Level of Function: Independent with restrictions Independent with the following restrictions: Knee pain and limitations prior to surgery. 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 All questions answered. documented in this encounterTrumbull Memorial Hospital09-08-2022 Miscellaneous Notes* Telephone Encounter - Lashay Grace RN - 01/24/2022 8:29 AM EDT Letter faxed to number provided Left detailed message on mom's VM too. Advised to call back with any questions or concerns. * Telephone Encounter - Gurdeep Toscano - 01/24/2022 8:23 AM EDT School nhote composed to excuse her from class from 01/23/22 through 01/25/22. Sent to patients jordan. Gurdeep Toscano * Telephone Encounter - Delmi [...] Please advise. Thank you! PH # is [phone] Could be released through [employer] or mom says we can fax directly to the school. [facility] [facility] documented in this encounterTr[facility]08-16-[facility]22 Instructions* Patient Instructions* Nataliia Lujan APRN.COMPUTER GRAPHICS ILLUSTRATOR - 01/01/2022 1:41 PM EDT PATIENT PREOPERATIVE INSTRUCTIONS Mayda Solares,* has scheduled you for your procedure at this surgery center: [facility]: [phone] --[id number] [facility], [place] [id number]. Please read below carefully for your personalized [...] Procedures: - YOU MUST HAVE A RESPONSIBLE NIGHT SHIFT MANAGER TAKE YOU HOME. A FRAME CHANGER OR NURSING MANAGER CANNOT BE MADE A RESPONSIBLE NIGHT SHIFT MANAGER. - We recommend that a responsible [...] Advance Directive, please fax a copy to [phone] or email to for it to be [...] day. Nataliia Lujan APRN.CNP documented in this encounterTrumbull [facility] Hospital08-16-2022 History and physical note * Nataliia Lujan APRN.CNP - 01/01/2022 1:40 PM EDT PREANESTHESIA CONSULT CLINIC TELEHEALTH VISIT Patient has been identified by name and date of : Yes This is a virtual visit using CardioDx video visit. It require patient-provider interaction for [...] fevers. Neuro: No history of TIA's, stroke, RESISTOR TESTING MACHINE OPERATOR tumor, impaired sensorium, hemiplegia, paraplegia or quadraplegia. No neurological symptoms or problems. Respiratory: No history of current cough or dyspnea, or pneumonia in the past 6 weeks. No history of respiratory/pulmonary symptoms or problems. Cardiovascular: No history of HTN requiring medication, no history of angina, CHF, NH, cardiac surgery or stents. Denies rest pain, [...] > 1 time per night or hematuria MANAGER LATIN: Negative for abnormal vaginal bleeding, abnormal vaginal [...] Objective PHYSICAL EXAM: Resp 16 Ht 5' 3" (1.60m) Wt 150 lb (68.0kg) LMP 02/09/2020 [...] device. I spent more than 0-20 minutes [id number] with the patient and over half the time was devoted to counseling and/or coordination of care. This is a virtual visit. It required patient-provider interaction for the medical decision making as documented above. SIGNATURE: Nataliia Lujan APRN.CNP PATIENT NAME: Oral Fletcher DATE: .01/01/2022 TIME: 1:46 PM PAGER/CONTACT #: documented in this encounterTrumbull [facility] Hospital2022 Miscellaneous Notes* Telephone Encounter - Otoniel [...] to sched joint surgery on Left knee [phone] Rosa [phone] Edward documented in this encounterTrumbull Memorial Hospital07-25-2022 History of Present illness Narrative* Manny [...] year ago. Had MRI on 11/11/20 at [facility] MRI at that time revealed possible [...] with more than 50% of the total [id number] time of the visit in counseling / coordination of care. We will coordinate with Dr Solares for combined surgery documented in this encounterTrumbull Memorial Hospital07-22-2022 Miscellaneous Notes* Telephone Encounter - Chago Rendon - 12/07/2021 8:27 AM EDT Daughter seeing Dr. Arteaga 12/10 then we can move forward with scheduling and the required letter. Message left for mom. * Telephone Encounter - Delmi Garcia PSS - 12/06/2021 11:34 AM EDT Patients mother is calling in and is requesting paperwork be sent to patients dads email so he can turn this into his "higher up". He has a prior engagement and needs this form to get off and help with taking care of Oral afterwards. The email is [email or web address]. The paperwork does not need to give specifics bc of HIPPA, but would need dads name, and the date of surgery for Oral. Please advise. They are saying they need this before the weekend.. Thank you! documented in this encounterTrumbull Memorial Hospital06-22-2022 History of Present illness Narrative* Mayda [...] - Impression Only MRI KNEE WO IVCON Exam End: 10/16/2021 12:13 PM (Final result) [...] patient Mayda Solares DO documented in this encounterTrumbull Memorial Hospital06-07-2022 Miscellaneous Notes* Telephone Encounter - Shannon Berrios - 10/23/2021 3:04 PM EDT Patient has been scheduled for visit with Dr. Solares / pre op. * Telephone Encounter - Chago Colby [facility] - 10/23/2021 2:44 PM EDT Please contact [...] Thanks! Mayda Solares DO documented in this encounterTrumbull Memorial Hospital06-03-2022 History of Present illness Narrative* Mayda Solares DO - 10/19/2021 12:08 PM EDT VIRTUAL VISIT PROGRESS NOTE This is a virtual visit using CardioDx video visit. It required patient-provider interaction for [...] which included preparing to see the patient, [id number] patient care, completing clinical documentation, communicating with [...] patient. Mayda Solares DO documented in this encounterTrumbull Memorial Hospital05-31-2022 History of Present illness Narrative* RT [...] 16, 2021 11:44 AM documented in this encounterTrumbull Memorial Hospital05-13-2022 Miscellaneous Notes* Telephone Encounter - June [...] Thanks Mayda Solares DO documented in this encounterTrumbull Memorial Hospital05-11-2022 History of Present illness Narrative* Mayda [...] seen in the lateral and patellofemoral compartments. Environmental Program Manager: CHAPARRITA ... Complete Results Assessment and Plan: [...] treatment plan as discussed. documented in this encounterTrumbull Memorial Hospital05-11-2022 Miscellaneous Notes* Allied Health - RT [...] 26, 2021 12:16 PM documented in this encounterTrumbull Memorial Hospital01-23-2018 History of Past illness Narrative* Problem Noted Date Resolved Date Chronic cough 06/10/2017 11/25/2019 Nocturnal enuresis 10/16/2010 02/22/2020 Ganglion cyst of wrist, left 10/2019 Last Assessment & Plan: Assessment: scheduled for EXCISION GANGLION WRIST LEFT 12/03/2019 documented as of this encounter (statuses as of 09/27/2021) [facility] of Past illness Narrative* Problem Noted Date Resolved Date Chronic cough 06/10/2017 11/25/2019 Nocturnal enuresis 10/16/2010 02/22/2020 Ganglion cyst of wrist, left 10/2019 Last Assessment & Plan: Assessment: scheduled for EXCISION GANGLION WRIST LEFT 12/03/2019 documented as of this encounter (statuses as of 09/27/2021) [facility] of [facility] illness Narrative* Problem Noted Date Resolved Date Chronic cough 06/10/2017 11/25/2019 Nocturnal enuresis 10/16/2010 02/22/2020 Ganglion cyst of wrist, left 10/2019 Last Assessment & Plan: Assessment: scheduled for EXCISION GANGLION WRIST LEFT 12/03/2019 documented as of this encounter (statuses as of 09/28/2021) [facility] of [facility] illness Narrative* Problem Noted Date Resolved Date Chronic cough 06/10/2017 11/25/2019 Nocturnal enuresis 10/16/2010 02/22/2020 Ganglion cyst of wrist, left 10/2019 Last Assessment & Plan: Assessment: scheduled for EXCISION GANGLION WRIST LEFT 12/03/2019 documented as of this encounter (statuses as of 10/17/2021) [facility] Narrative* Problem Noted Date Resolved Date Chronic cough 06/10/2017 11/25/2019 Nocturnal enuresis 10/16/2010 02/22/2020 Ganglion cyst of wrist, left 10/2019 Last Assessment & Plan: Assessment: scheduled for EXCISION GANGLION WRIST LEFT 12/03/2019 documented as of this encounter (statuses as of 10/23/2021) [facility] Narrative* Problem Noted Date Resolved Date Chronic cough 06/10/2017 11/25/2019 Nocturnal enuresis 10/16/2010 02/22/2020 Ganglion cyst of wrist, left 10/2019 Last Assessment & Plan: Assessment: scheduled for EXCISION GANGLION WRIST LEFT 12/03/2019 documented as of this encounter (statuses as of 10/23/2021) [facility] Narrative* Problem Noted Date Resolved Date Chronic cough 06/10/2017 11/25/2019 Nocturnal enuresis 10/16/2010 02/22/2020 Ganglion cyst of wrist, left 10/2019 Last Assessment & Plan: Assessment: scheduled for EXCISION GANGLION WRIST LEFT 12/03/2019 documented as of this encounter (statuses as of 11/08/2021) [facility] Narrative* Problem Noted Date Resolved Date Chronic cough 06/10/2017 11/25/2019 Nocturnal enuresis 10/16/2010 02/22/2020 Ganglion cyst of wrist, left 10/2019 Last Assessment & Plan: Assessment: scheduled for EXCISION GANGLION WRIST LEFT 12/03/2019 documented as of this encounter (statuses as of 12/10/2021) [facility] Narrative* Problem Noted Date Resolved Date Chronic cough 06/10/2017 11/25/2019 Nocturnal enuresis 10/16/2010 02/22/2020 Ganglion cyst of wrist, left 10/2019 Last Assessment & Plan: Assessment: scheduled for EXCISION GANGLION WRIST LEFT 12/03/2019 documented as of this encounter (statuses as of 12/26/2021) [facility] Narrative* Problem Noted Date Resolved Date Chronic cough 06/10/2017 11/25/2019 Nocturnal enuresis 10/16/2010 02/22/2020 Ganglion cyst of wrist, left 10/2019 Last Assessment & Plan: Assessment: scheduled for EXCISION GANGLION WRIST LEFT 12/03/2019 documented as of this encounter (statuses as of 01/01/2022) [facility] Narrative* Problem Noted Date Resolved Date Chronic cough 06/10/2017 11/25/2019 Nocturnal enuresis 10/16/2010 02/22/2020 Ganglion cyst of wrist, left 10/2019 Last Assessment & Plan: Assessment: scheduled for EXCISION GANGLION WRIST LEFT 12/03/2019 documented as of this encounter (statuses as of 01/07/2022) [facility] Narrative* Problem Noted Date Resolved Date Chronic cough 06/10/2017 11/25/2019 Nocturnal enuresis 10/16/2010 02/22/2020 Ganglion cyst of wrist, left 10/2019 Last Assessment & Plan: Assessment: scheduled for EXCISION GANGLION WRIST LEFT 12/03/2019 documented as of this encounter (statuses as of 01/24/2022) [facility] Narrative* Problem Noted Date Resolved Date Chronic cough 06/10/2017 11/25/2019 Nocturnal enuresis 10/16/2010 02/22/2020 Ganglion cyst of wrist, left 10/2019 Last Assessment & Plan: Assessment: scheduled for EXCISION GANGLION WRIST LEFT 12/03/2019 documented as of this encounter (statuses as of 02/01/2022) [facility] Narrative* Problem Noted Date Resolved Date Chronic cough 06/10/2017 11/25/2019 Nocturnal enuresis 10/16/2010 02/22/2020 Ganglion cyst of wrist, left 10/2019 Last Assessment & Plan: Assessment: scheduled for EXCISION GANGLION WRIST LEFT 12/03/2019 documented as of this encounter (statuses as of 02/04/2022) [facility] Narrative* Problem Noted Date Resolved Date Chronic cough 06/10/2017 11/25/2019 Nocturnal enuresis 10/16/2010 02/22/2020 Ganglion cyst of wrist, left 10/2019 Last Assessment & Plan: Assessment: scheduled for EXCISION GANGLION WRIST LEFT 12/03/2019 documented as of this encounter (statuses as of 02/22/2022) [facility] Narrative* Problem Noted Date Resolved Date Chronic cough 06/10/2017 11/25/2019 Nocturnal enuresis 10/16/2010 02/22/2020 Ganglion cyst of wrist, left 10/2019 Last Assessment & Plan: Assessment: scheduled for EXCISION GANGLION WRIST LEFT 12/03/2019 documented as of this encounter (statuses as of 02/25/2022) [address]23[address] History of Past illness Narrative* Problem Noted Date Resolved Date Chronic cough 06/10/2017 11/25/2019 Nocturnal enuresis 10/16/2010 02/22/2020 Ganglion cyst of wrist, left 10/2019 Last Assessment & Plan: Assessment: scheduled for EXCISION GANGLION WRIST LEFT 12/03/2019 documented as of this encounter (statuses as of 02/27/2022) [facility] Narrative* Problem Noted Date Resolved Date Chronic cough 06/10/2017 11/25/2019 Nocturnal enuresis 10/16/2010 02/22/2020 Ganglion cyst of wrist, left 10/2019 Last Assessment & Plan: Assessment: scheduled for EXCISION GANGLION WRIST LEFT 12/03/2019 documented as of this encounter (statuses as of 03/06/2022) [facility] Narrative* Problem Noted Date Resolved Date Chronic cough 06/10/2017 11/25/2019 Nocturnal enuresis 10/16/2010 02/22/2020 Ganglion cyst of wrist, left 10/2019 Last Assessment & Plan: Assessment: scheduled for EXCISION GANGLION WRIST LEFT 12/03/2019 documented as of this encounter (statuses as of 03/15/2022) [address]23-2018 History of Past illness Narrative* Problem Noted Date Resolved Date Chronic cough 06/10/2017 11/25/2019 Nocturnal enuresis 10/16/2010 02/22/2020 Ganglion cyst of wrist, left 10/2019 Last Assessment & Plan: Assessment: scheduled for EXCISION GANGLION WRIST LEFT 12/03/2019 documented as of this encounter (statuses as of 04/09/2022) [facility] Narrative* Problem Noted Date Resolved Date Chronic cough 06/10/2017 11/25/2019 Nocturnal enuresis 10/16/2010 02/22/2020 Ganglion cyst of wrist, left 10/2019 Last Assessment & Plan: Assessment: scheduled for EXCISION GANGLION WRIST LEFT 12/03/2019 documented as of this encounter (statuses as of 08/02/2022) [address]23-2018 History of Past illness Narrative* Problem Noted Date Resolved Date Chronic cough 06/10/2017 11/25/2019 Nocturnal enuresis 10/16/2010 02/22/2020 Ganglion cyst of wrist, left 10/2019 Last Assessment & Plan: Assessment: scheduled for EXCISION GANGLION WRIST LEFT 12/03/2019 documented as of this encounter (statuses as of 11/21/2022) [facility] Narrative* Problem Noted Date Diagnosed Date Resolved Date Chronic cough 06/10/2017 11/25/2019 Nocturnal enuresis 10/16/2010 0 Ganglion cyst of wrist, left 02/22/2020 Last Assessment & Plan: Assessment: scheduled for EXCISION GANGLION WRIST LEFT 12/03/2019 documented as of this encounter (statuses as of 01/23/2023) [address]23-2018 History of Past illness Narrative* Problem Noted Date Diagnosed Date Resolved Date Chronic cough 06/10/2017 11/25/2019 Nocturnal enuresis 10/16/2010 0 Ganglion cyst of wrist, left 02/22/2020 Last Assessment & Plan: Assessment: scheduled for EXCISION GANGLION WRIST LEFT 12/03/2019 documented as of this encounter (statuses as of 04/02/2023) [place] [address]2018 History of Past illness Narrative* Problem Noted Date Diagnosed Date Resolved Date Chronic cough 06/10/2017 11/25/2019 Nocturnal enuresis 10/16/2010 0 Ganglion cyst of wrist, left 02/22/2020 Last Assessment & Plan: Assessment: scheduled for EXCISION GANGLION WRIST LEFT 12/03/2019 documented as of this encounter (statuses as of 07/24/2023) [facility] Narrative* Problem Noted Date Diagnosed Date Resolved Date Chronic cough 06/10/2017 11/25/2019 Nocturnal enuresis 10/16/2010 0 Ganglion cyst of wrist, left 02/22/2020 Last Assessment & Plan: Assessment: scheduled for EXCISION GANGLION WRIST LEFT 12/03/2019 documented as of this encounter (statuses as of 08/01/2023) [facility] Narrative* Problem Noted Date Diagnosed Date Resolved Date Chronic cough 06/10/2017 11/25/2019 Nocturnal enuresis 10/16/2010 0 Ganglion cyst of wrist, left 02/22/2020 Last Assessment & Plan: Assessment: scheduled for EXCISION GANGLION WRIST LEFT 12/03/2019 documented as of this encounter (statuses as of 08/01/2023) [facility] Narrative* Problem Noted Date Diagnosed Date Resolved Date Chronic cough 06/10/2017 11/25/2019 Nocturnal enuresis 10/16/2010 0 Ganglion cyst of wrist, left 02/22/2020 Last Assessment & Plan: Assessment: scheduled for EXCISION GANGLION WRIST LEFT 12/03/2019 documented as of this encounter (statuses as of 08/19/2023) [facility] Narrative* Problem Noted Date Diagnosed Date Resolved Date Chronic cough 06/10/2017 11/25/2019 Nocturnal enuresis 10/16/2010 0 Ganglion cyst of wrist, left 02/22/2020 Last Assessment & Plan: Assessment: scheduled for EXCISION GANGLION WRIST LEFT 12/03/2019 documented as of this encounter (statuses as of 08/27/2023) [facility] Narrative* Problem Noted Date Diagnosed Date Resolved Date Chronic cough 06/10/2017 11/25/2019 Nocturnal enuresis 10/16/2010 0 Ganglion cyst of wrist, left 02/22/2020 Last Assessment & Plan: Assessment: scheduled for EXCISION GANGLION WRIST LEFT 12/03/2019 documented as of this encounter (statuses as of 08/28/2023) [facility] Narrative* Problem Noted Date Diagnosed Date Resolved Date Chronic cough 06/10/2017 11/25/2019 Nocturnal enuresis 10/16/2010 0 Ganglion cyst of wrist, left 02/22/2020 Last Assessment & Plan: Assessment: scheduled for EXCISION GANGLION WRIST LEFT 12/03/2019 documented as of this encounter (statuses as of 08/30/2023) [facility] Narrative* Problem Noted Date Diagnosed Date Resolved Date Chronic cough 06/10/2017 11/25/2019 Nocturnal enuresis 10/16/2010 0 Ganglion cyst of wrist, left 02/22/2020 Last Assessment & Plan: Assessment: scheduled for EXCISION GANGLION WRIST LEFT 12/03/2019 documented as of this encounter (statuses as of 09/03/2023) [facility] HospitalDis[facility] summary Author Blane Alfred [facility] Note Date/Time August 17, 2024 1:51 am [facility] Medical Records Department [address] [place] [address] Emergency Department Summary 08/17/24 MR#: [id number] Acct: [id number] Name: ORAL FLETCHER Rep #:[id number] : 2005 19 From: Blane Alfred MD [...] home and treated as a kidney stone. [place] for pain. Motrin. Fluids. Urine strainer. Urology [...] 45.2 L Lymph % (Auto) 45.9 H [place] % (Auto) 6.6 Eos % (Auto) 1.7 [...] Clarity Clear Urine pH 7.0 Ur Specific [place] 1.010 Urine Protein 30 H Urine Glucose [...] stranding or urothelial thickening seen. Reading Location: [facility] CT of the abdomen pelvis with IV [...] in your bladder your pain should resolve. [place] for severe pain. Otherwise you can use [...] best way to prevent kidneystones. Print Language: Welsh Disposition Disposition: Home, Self Care What to do if you have Problems For any increased pain, shortness of breath, bleeding, nausea or vomiting, chestpain, or any unexpected problems, contact your Primary Care Provider. Call [facility] ([phone]) or report to the closest Emergency Room. Call 911 if necessary. 08/17/24 0151 <Electronically signed by Blane Alfred MD> Cosigner Signature (if applicable): CC: No Primary Care Physician ~ Signed [facility] Work Phone: Discharge summary Author Vlad Jay [facility] Note Date/Time December 08, 2024 7:29 am [facility] Medical Records Department [address] [place] [address] Emergency Department Summary 12/08/24 MR#: [id number] Acct: [id number] Name: ORAL FLETCHER Rep #:[id number] : 2005 19 From: Vlad Jay DO PCP: Care Physician,No Primary Status :REG ER Location: ED HPI History of Present Illness Chief Complaint: Wound Check Informant: patient Narrative Narrative: Patient is a 19-year-old female with no significant past medical history. She was seen yesterday evening secondary to being bit in the hand by a cat at the [employer]. She was started on Augmentin and her [...] presents for evaluation. Patient is left-hand dominant [facility] Medical History Anxiety Encounter for [...] (Auto) 49.2 Lymph % (Auto) 41.4 H [place] % (Auto) 7.6 Eos % (Auto) 1.6 [...] Management Discussion w/another healthcare provider: Hospitalist and Metal Off Bearer Discharge Plan Triage Chief Complaint: Wound Check [...] Primary [Primary Care Provider] - Print Language: Welsh Disposition Disposition: Acute Care Hospital [facility] What to do if you have Problems For any increased pain, shortness of breath, bleeding, nausea or vomiting, chestpain, or any unexpected problems, contact your Primary Care Provider. Call [facility] ([phone]) or report to the closest Emergency Room. Call 911 if necessary. 12/08/24 0729 <Electronically signed by Vlad Jay DO> Cosigner Signature (if applicable): CC: No Primary Care Physician ~ Signed [facility] Work Phone: Discharge summary Author Donnie Manrique [facility] Note Date/Time January 10, 2025 12 :09pm [facility] Medical Records Department [address] [place] [address] Emergency Department Summary 01/10/25 MR#: [id number] Acct: [id number] Name: ORAL FLETCHER Rep #:[id number] : 2005 19 From: Donnie Manrique MD PCP: Care Physician,No Primary Status :PRE ER Location: ED HPI History of Present Illness Chief Complaint: Med Refill Detail of Chief Complaint: Refill Zoloft prescription Onset/Context/Timing Onset: Yesterday Context: Sudden Onset Quality: Patient was instructed to increase her Zoloft from 25 mg a day to 50 mga d Location: Not applicable Current Severity: Patient's prescription has no refills Maximum Severity: Told to increase Zoloft with no refills Worsened by: Not applicable Relieved by: Not applicable Associated Symptoms Associated Symptoms: History of depression better on Zoloft Narrative Narrative: Patient is a 19-year-old female. She is seeing a therapist psychiatrist for depression. She was on Zoloft 25 mg. She states it helped. She wasrecently told to increase to 50 mg. She states her prescription has no refills and because she was told to increase her Zoloft she has no remaining tablets. Patient denies suicidal ideation or homicidal ideation. Patient states that Zoloft has helped. Has no other complaints. Prior similar symptoms: No Recent [facility] Medical History Anxiety Encounter for screening for COVID-19 Home Medications ?Medication ?Instructions ?Recorded ?Last Taken ?Type vit no.95-ferrous 1 tab PO DAILY SUPPLEMENT 1 05/21/23 05/24/24 21:00 History fumarate 28 mg-folic acid 800 mcg 1 TA B tablet () pantoprazole 40 mg granules 40 mg PO PRN INDIGESTION 0 05/25/24 05/24/24 09:00 History delayed-release for susp [...] 12/07/24 Unknown Rx mg tablet (Percocet) tabs lactase 3,000 unit tablet (Dairy 3,000 unit PO .WITH L ACTOSE 12/08/24 Unknown History Relief) PRODUCT PRN lactose intolera nt sertraline 25 mg tablet (Zoloft) 50 mg PO DAILY ANXIET Y 12/08/24 Unknown History sertraline 50 mg tablet (Zoloft) 50 mg PO DAILY #30 ta bs 01/10/25 Unknown Rx Allergy/AdvReac Type Severity Reaction Status Date / Time lactase (From Dairy Aid) Allergy Mild Abdominal Verified 01/10/25 11:57 cramping Family History Grandfather Leukemia DVT (deep venous thrombosis) Grandmother Breast cancer Grandmother Diabetes Heart disease Lung cancer Surgical History History of surgery History of removal of cyst H/O tooth extraction Social History Smoking Status: Never smoker alcohol intake: never what type of physical activity do you participate in: additional details: gym, sports seatbelt use: always ROS ROS ED Neurologic Neurologic: Denies paresthesias or weakness Psychiatric Psychiatric: Reports depression; Denies suicidal ideation or suicidal thoughts EXAM Physical Exam Const Vital Signs: 01/10/25 11:56 Temperature 98 F Temperature Source Temporal Pulse Rate 79 Respiratory Rate 18 Blood Pressure 146/89 H Blood Pressure Mean 108 Pulse Ox 100 Oxygen Delivery Method Room Air Positive well nourished and well developed General Appearance ED: well developed, NAD and pallor HEENT Reports moist mucous membranes HEENT Narrative: Head is atraumatic and normocephalic. Eyes PERRL and EOMs intact bilaterally General Eye ED: Negative for pale conjunctiva Resp normal respiratory effort and clear to auscultation bilaterally Cardio regular rate, regular rhythm, S1 normal heart sound, S2 normal heart sound and no murmurs Extremity normal to inspection Extremity Narrative: Prior self-inflicted wounds that are well-healed Neuro oriented x3 and CN's II-XII intact bilaterally Sensorium / Orientation: alert Psych Psych Narrative: Affect is flat. Attitude: No agitated Mood & Affect: Negative for anxious or tearful Skin no rashes or lesions noted, no wounds and skin turgor normal General Skin Exam: pallor; Negative for jaundice MDM MDM MDM Narrative Medical decision making narrative: Patient presents for prescription refill because her therapist instructed her toincrease her Zoloft from 25 mg to 50 mg. Discharge Plan Triage Chief Complaint: Med Refill ED Provider: Donnie Manrique Dx/Rx/DC Orders Clinical Impression: Prescription refill, Difficulty refilling prescriptions, History of depression,Encounter for medical screening examination Instructions: Medication Refill Prescriptions: New sertraline [Zoloft] 50 mg tablet 50 mg PO DAILY Qty: 30 2RF No Action PNV cmb#[id number]-ferrous fumarate-FA [] 28 mg iron- 800 mcg tablet 1 tab PO DAILY pantoprazole [Protonix] [address] for susp in packet 40 mg PO PRN sennosides-docusate sodium [Stimulant Laxative Plus] 8.6-50 mg [...] (Reason: pain) 3 Days Qty: 12 0RF sertraline [Zoloft] 25 mg tablet 50 mg PO DAILY lactase [Dairy Relief] 3,000 unit tablet 3,000 unit PO .WITH LACTOSE PRODUCT PRN (Reason: lactose intolerant) Rx Instructions: 3,000 units orally WITH LACTOSE PRODUCTS PRN; Primary Care Provider: Care Physician,No Primary Referrals: Care Physician,No Primary [Primary Care Provider] - Activity Restrictions/Additional Instructions: Follow-up with your psychiatrist in the future to have your prescriptions refilled. You were given 2 refills Print Language: Welsh Disposition Disposition: Home, Self Care What to do if you have Problems For any increased pain, shortness of breath, bleeding, nausea or vomiting, chestpain, or any unexpected problems, contact your Primary Care Provider. Call [facility] ([phone]) or report to the closest Emergency Room. Call 911 if necessary. 01/10/25 1209 <Electronically signed by Donnie Manrique MD> Cosigner Signature (if applicable): CC: No Primary Care Physician ~ Signed [facility] Work Phone: Evaluation note* Diagnosis Pain Generalized pain Chronic pain of left knee Pain in joint, lower leg [facility] Chronic pain of left knee- Primary Pain in joint, lower leg 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 [facility] Diagnosis Chronic pain of left knee Pain in joint, lower leg Knee OCD Osteochondritis dissecans [facility] Diagnosis Chronic pain of left knee- Primary Pain in joint, lower leg 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 Other joint derangement, not elsewhere classified, lower leg [facility] Diagnosis Chronic pain of left knee- [...] initial encounter- [facility] Diagnosis Myopia, bilateral- Primary [facility]opia [facility] Diagnosis Sore throat- Primary Acute pharyngitis URI, acute Acute upper respiratory infections of unspecified site [facility] Diagnosis Rash- Primary Rash and other nonspecific skin eruption [facility] Diagnosis Sore throat- Primary Acute pharyngitis documented in this encounter [facility] noteNo assessment information availableWMercy Health St[facility] Work Phone: Evaluation note* Diagnosis Chronic pain of left knee- Primary Pain in joint, lower leg documented in this encounter [facility] note* Diagnosis Chronic pain of left knee Pain in joint, lower leg [facility] Diagnosis S/P knee surgery- Primary Other postprocedural status Loose body in knee, left knee [facility] Diagnosis S/P knee surgery Other postprocedural status documented [facility] Diagnosis S/P knee surgery- Primary Other postprocedural status documented [facility] Diagnosis Nausea- Primary Nausea alone [facility] Diagnosis S/P knee surgery Other postprocedural status Loose body in knee, left knee [facility] Diagnosis S/P knee surgery- Primary Other postprocedural status [facility] Diagnosis Nausea- Primary Nausea alone [facility] Diagnosis Dizziness- Primary Dizziness and giddiness Nausea and vomiting, unspecified vomiting type documented [facility] Diagnosis Myopia, bilateral- Primary Myopia [facility] Diagnosis with uncertain dates, antepartum- [...] of normal first [facility] Diagnosis Generalized anxiety disorder- Primary History of depression Personal history of other mental disorder Supervision of normal first teen in second trimester Nausea and vomiting during Normal first with uncertain date of LMP, antepartum Supervision of normal first [facility] Diagnosis Encounter for screening for malformation using ultrasound- Primary 12 weeks gestation of state, incidental 12 weeks gestation of - Primary state, incidental [facility] Diagnosis Encounter for screening for malformation using ultrasound- Primary 12 weeks gestation of state, incidental [facility] Diagnosis Supervision of normal first teen in second trimester- Primary Nausea and vomiting during Normal first with uncertain date of LMP, antepartum Supervision of normal first Generalized anxiety disorder History of depression Personal history of other mental disorder 12 weeks gestation of state, incidental [facility] Diagnosis Nausea- Primary Nausea alone [facility] Diagnosis Supervision of normal first teen in second trimester- Primary 15 weeks gestation of state, incidental Nausea and vomiting during Generalized anxiety disorder History of depression Personal history of other mental disorder Rubella non-immune status, antepartum Other specified complication, antepartum [facility] Diagnosis Supervision of normal first teen in second trimester- Primary Nausea and vomiting during History of depression Personal history of other mental disorder Rubella non-immune status, antepartum Other specified complication, antepartum Generalized anxiety disorder 20 weeks gestation of state, incidental Back pain in Other specified complication of , unspecified as to episode of care [facility] Diagnosis Encounter for anatomic survey- Primary 20 weeks gestation of state, incidental [facility] Diagnosis Pain Generalized pain [facility] Diagnosis Pain Generalized pain [facility] Diagnosis Encounter for care in first trimester of first [facility] Diagnosis 24 weeks gestation of - Primary state, incidental Supervision of normal first teen in second trimester Generalized anxiety disorder Rubella non-immune status, antepartum Other specified complication, antepartum History of depression Personal history of other mental disorder Encounter for care in first trimester of first Heartburn during in second trimester [facility] Diagnosis Viral URI- Primary Acute upper respiratory infections of unspecified site [facility] Diagnosis Elevated glucose tolerance test- Primary Impaired glucose tolerance test [facility] Diagnosis Supervision of normal first [...] other mental disorder [facility] Diagnosis 29 weeks gestation of - Primary state, incidental Encounter for supervision of normal first in third trimester Supervision of normal first Rubella non-immune status, antepartum Other specified complication, antepartum Low-lying placenta Hemorrhage from placenta previa, unspecified as to episode of care [facility] Diagnosis 32 weeks gestation of - Primary state, incidental Encounter for supervision of normal first in third trimester Supervision of normal first Low-lying placenta Hemorrhage from placenta previa, unspecified as to episode of care Heartburn during in third trimester [facility] Diagnosis Encounter for ultrasound to check growth- Primary Encounter for routine screening for malformation using ultrasonics Suspected placental problem not found 32 weeks gestation of state, incidental [facility] Diagnosis 34 weeks gestation of - Primary state, incidental Encounter for supervision of normal first in third trimester Supervision of normal first Rubella non-immune status, antepartum Other specified complication, antepartum Heartburn during in third trimester [facility] Diagnosis Supervision of normal first teen in second trimester- Primary Heartburn during in third trimester Rubella non-immune status, antepartum Other specified complication, antepartum History of depression Personal history of other mental disorder Uterine size-date discrepancy in third trimester Uterine size date discrepancy, antepartum condition or complication [facility] Diagnosis Encounter for supervision of normal first in third trimester- Primary Supervision of normal first Uterine size-date discrepancy in third trimester Uterine size date discrepancy, antepartum condition or complication Need for RSV vaccination Need for prophylactic vaccination and inoculation against respiratory syncytial virus 36 weeks gestation of state, incidental [facility] Diagnosis 2 weeks follow-up- Primary Lactating mother care and examination of lactating mother First-degree perineal laceration in First-degree perineal laceration, unspecified as to episode of care in Generalized anxiety disorder [facility]* Diagnosis Post depression- Primary Mental disorders of mother, documented [facility]* Diagnosis 2 weeks follow-up- Primary Post depression Mental disorders of mother, [facility] Diagnosis Post depression- Primary Mental disorders of mother, Generalized anxiety disorder [facility]* Diagnosis care and examination- Primary Routine follow-up Encounter for IUD insertion Encounter for insertion of intrauterine contraceptive device Post depression Mental disorders of mother, Generalized anxiety disorder [facility] Diagnosis Acute cough- Primary Rhinosinusitis Unspecified sinusitis (chronic) Acute cough [facility] Diagnosis Acute cough [facility] Diagnosis Encounter for care in first trimester of first (HCC) [facility] Diagnosis Encounter for IUD insertion- Primary Encounter for insertion of intrauterine contraceptive device [facility] Diagnosis Irritant contact dermatitis due to other agents- Primary Acute bacterial conjunctivitis of left eye [facility] Additional Instructions Please follow-up with crisis center as directed regarding your event that occurred this evening. If you have any further concerns or worsening of symptoms please return to the ER for repeat evaluationWMercy [facility] Work Phone: Hospital Discharge instructions Additional Instructions Your pain is from a 2 mm kidney stone on the left. It is already all the way down by your bladder. It should pass without any difficulty. Once he gets in your bladder your pain should resolve. [place] for severe pain. Otherwise you can use [...] best way to prevent kidney stones.[facility] Work Phone: Hospital Discharge instructionsAdditional Instructions Most likely secondary to your IUD. Plenty of fluids. Motrin and Tylenol for pain. Follow-up with your nurse assistant branch manager if not improving. Or your HOUSE RN.[facility] Work Phone: Hospital Discharge instructionsAdditional Instructions The [...] prevent infection and take the antibiotic as directedWMercy Health St. [facility] Work Phone: Hospital Discharge instructionsAdditional Instructions Follow-up with your psychiatrist in the future to have your prescriptions refilled. You were given [address] [facility] Work Phone: Reason for referral (narrative)* Diagnostic Procedure Only (Routine) - Closed Specialty Diagnoses / Procedures Referred By Natasha burch Referred To Contact XR IMAGING Diagnoses Chronic pain of left knee Procedures XR KNEE GENERAL 4V AP BOTH/PA BOTH/LAT/MERC LEFT RADIOLOGIC EXAM KNEE COMPLETE 4/MORE VIEWS Mayda Solares DO [address] [place] [address] Xr Imaging Referral ID Status Reason Start Date Expiration Date V isits Requested Visits Authorized [id number] Closed Auto-Generate d Referral 09/26/2021 10/26/2022 1 1 T [facility] for referral (narrative)* Diagnostic Procedure Only (Routine) - Pending Review Specialty Diagnoses / Procedures Referred By Natasha burch Referred To Contact XR IMAGING Diagnoses Chronic pain of left knee Procedures XR KNEE GENERAL 4V AP BOTH/PA BOTH/LAT/MERC LEFT RADIOLOGIC EXAM KNEE COMPLETE 4/MORE VIEWS Mayda Solares DO [address] [facility] [address] [place] [address] [place] [address] Referral ID Status Reason Start Date Expiration Date Visits Requested Visits Authorized [id number] Pending Review Auto-Generat ed Referral 07/24/2023 08/22/2024 1 1 [facility] for referral (narrative)* Diagnostic Procedure Only (Routine) - Closed Specialty Diagnoses / Procedures Referred By Contac t Referred To Contact XR IMAGING Diagnoses Chronic pain of left knee Procedures XR KNEE GENERAL 4V AP BOTH/PA BOTH/LAT/MERC LEFT RADIOLOGIC EXAM KNEE COMPLETE 4/MORE VIEWS Mayda Solares DO [address] [place] [address] [place] [address] Referral ID Status Reason Start Date Expiration Date V isits Requested Visits Authorized [id number] Closed Auto-Generate d Referral 07/24/2023 08/22/2024 1 1 [facility] for referral (narrative)* Diagnostic Procedure Only (Routine) - New Request Specialty Diagnoses / Procedures Referred By Natasha t Referred To Contact [facility] Diagnoses 12 weeks gestation of Procedures NUCHAL TRANSLUCENCY WHI US NUCHAL TRANSLUCENCY 1ST GESTATION Anitra Caldwell APRN.CNM [address] [place] [address] [facility] [address] [place] [address] Referral ID Status Reason Start Date Expiration Date Visits Requested Visits Authorized [id number] New Request Auto-Generat ed Referral 11/28/2023 11/27/2024 1 1 [facility] for referral (narrative)* Diagnostic Procedure Only (Routine) - New Request Specialty Diagnoses / Procedures Referred By Contac t Referred To Contact [facility] Diagnoses Supervision of normal first teen in second trimester Procedures OBSTETRIC ULTRASOUND WHI US PREG UTERUS AFTER 1ST TRIMEST GESTATION Anitra Caldwell APRN.CNM [address] [place] [address] [facility] [address] [place] [address] Referral ID Status Reason Start Date Expiration Date Visits Requested Visits Authorized [id number] New Request Auto-Generat ed Referral 11/28/2023 11/27/2024 1 1 [facility] for referral (narrative)* Diagnostic Procedure Only (Urgent) - Closed Specialty Diagnoses / Procedures Referred By Contac t Referred To Contact XR IMAGING Diagnoses Pain Procedures XR FOOT GENERAL 3V AP/LAT/OBL RIGHT RADEX FOOT COMPLETE MINIMUM 3 VIEWS Zhanna Hazel APRN.COMPUTER GRAPHICS ILLUSTRATOR [address] [place] [address] [place] [address] Referral ID Status Reason Start Date Expiration Date V isits Requested Visits Authorized [id number] Closed Auto-Generate d Referral 02/18/2023 03/19/2024 1 1 [facility] for referral (narrative)* Diagnostic Procedure Only (Urgent) - Closed Specialty Diagnoses / Procedures Referred By Contac t Referred To Contact XR IMAGING Diagnoses Pain Procedures XR ANKLE GENERAL 3V AP/LAT/OBL RIGHT RADEX ANKLE COMPLETE MINIMUM 3 VIEWS Zhanna Hazle APRN.CNP [address] [place] [address] [place] [address] Referral ID Status Reason Start Date Expiration Date V isits Requested Visits Authorized [id number] Closed Auto-Generate d Referral 02/18/2023 03/19/2024 1 1 [facility] for referral (narrative)No reason for referral information availableWMercy Health St. [facility] Work Phone: [facility] for visit Narrative* Diagnostic Procedure Only (Routine) - Closed Specialty Diagnoses / Procedures Referred By Contac t Referred To Contact XR IMAGING Diagnoses Pain Procedures XR KNEE GENERAL 4V AP BOTH/PA BOTH/LAT/MERC RIGHT RADIOLOGIC EXAM KNEE COMPLETE 4/MORE VIEWS Mayda Solares DO [address] [place] [address] Xr Imaging Referral ID Status Reason Start Date Expiration Date V isits Requested Visits Authorized [id number] Closed Auto-Generate d Referral 08/17/2021 09/16/2022 1 1 [facility] for visit Narrative* Diagnostic Procedure Only (Routine) - Closed Specialty Diagnoses / Procedures Referred By Contac t Referred To Contact XR IMAGING Diagnoses Chronic pain of left knee Procedures XR KNEE GENERAL 4V AP BOTH/PA BOTH/LAT/MERC LEFT RADIOLOGIC EXAM KNEE COMPLETE 4/MORE VIEWS Mayda Solares DO [address] [facility] [address] [place] [address] [place] [address] Referral ID Status Reason Start Date Expiration Date V isits Requested Visits Authorized [id number] Closed Auto-Generate d Referral 07/24/2023 08/22/2024 1 1 [facility] for visit Narrative* Diagnostic Procedure Only (Urgent) - Closed Specialty Diagnoses / Procedures Referred By Contac t Referred To Contact XR IMAGING Diagnoses Pain Procedures XR FOOT GENERAL 3V AP/LAT/OBL RIGHT RADEX FOOT COMPLETE MINIMUM 3 VIEWS Zhanna Hazel APRN.COMPUTER GRAPHICS ILLUSTRATOR [address] [place] [address] [place] [address] Referral ID Status Reason Start Date Expiration Date V isits Requested Visits Authorized [id number] Closed Auto-Generate d Referral 02/18/2023 03/19/2024 1 1 [facility] for visit Narrative* Diagnostic Procedure Only (Urgent) - Closed Specialty Diagnoses / Procedures Referred By Contac t Referred To Contact XR IMAGING Diagnoses Pain Procedures XR ANKLE GENERAL 3V AP/LAT/OBL RIGHT RADEX ANKLE COMPLETE MINIMUM 3 VIEWS Zhanna Hazel APRN.COMPUTER GRAPHICS ILLUSTRATOR [address] [place] [id number] [place] [address] Referral ID Status Reason Start Date Expiration Date V isits Requested Visits Authorized [id number] Closed Auto-Generate d Referral 02/18/2023 03/19/2024 1 1 [facility] Summary Purpose Family History No [...] Will No June 03 12:42am Power of Coffee Break Attendant No June 03, 2023 12:42am Advance Directive Response Recorded Date/ Time Living Will No May 25 12:56pm Do you have a Healthcare Power of Coffee Break Attendant? No May 25, 2024 12:56pm Living Will No August 17, 2024 1:18am Do you have a Healthcare Power of Coffee Break Attendant? No August 17, 2024 1:18am Advance Directive Response Recorded Date/ Time Living Will No August 17, 2024 1:18am Do you have a Healthcare Power of Coffee Break Attendant? No August 17, 2024 1:18am Do you have a Healthcare Power of Coffee Break Attendant? No December 05, 2024 10:40am Advance Directive Response Recorded Date/ Time Living Will No August 17, 2024 1:18am Do you have a Healthcare Power of Coffee Break Attendant? No August 17, 2024 1:18am Do you have a Healthcare Power of Coffee Break Attendant? No December 05, 2024 10:40am Do you have a Healthcare Power of Coffee Break Attendant? No December 07, 2024 11:14pm Advance Directive Response Recorded Date/ Time Living Will No August 17, 2024 1:18am Do you have a Healthcare Power of Coffee Break Attendant? No August 17, 2024 1:18am Do you have a Healthcare Power of Coffee Break Attendant? No December 05, 2024 10:40am Do you have a Healthcare Power of Coffee Break Attendant? No December 07, 2024 11:14pm Do you have a Healthcare Power of Coffee Break Attendant? No December 08, 2024 6:03am Advance Directive Response Recorded Date/ Time Do you have a Healthcare Power of Coffee Break Attendant? No December 05, 2024 10:40am Do you have a Healthcare Power of Coffee Break Attendant? No December 07, 2024 11:14pm Do you have a Healthcare Power of Coffee Break Attendant? No December 08, 2024 8:18am Advance Directive Response Recorded Date/ Time Do you have a Healthcare Power of Coffee Break Attendant? No January 10, 2025 12:15pm Do you have a Healthcare Power of Coffee Break Attendant? No December 05, 2024 10:40am Do you have a Healthcare Power of Coffee Break Attendant? No December 07, 2024 11:14pm Do you have a Healthcare Power of Coffee Break Attendant? No December 08, 2024 8:18am Reason for Referral Specialty Diagnoses / Procedures Referred By Natasha t Referred To Contact MR IMAGING Diagnoses Chronic pain of left knee Knee OCD Procedures MRI KNEE WO IVCON LT MRI ANY JT LOWER EXTREM W/O CONTRAST Mayda Lemons [place] [facility] [address] Mr Imaging Referral ID Status Reason Start Date Expiration Date V isits Requested Visits Authorized [id number] Closed Auto-Generate d Referral 09/28/2021 10/27/2021 1 1 Specialty Diagnoses / Procedures Referred By Contact Referred To Contact [facility] Diagnoses Patellar dislocation, left, subsequent encounter S/P orthopedic surgery, follow-up exam Procedures CONSULT TO PHYSICAL THERAPY PHYSICAL THERAPY EVALUATION HIGH COMPLEX 45 MINS Otoniel Gates PA-C [address] [place] [address] [facility] [place] [address] [place] [id number] Referral ID Status Reason Start Date Expiration Date Visits Requested Visits Authorized [id number] Pending Review Auto-Generat ed Referral 12/26/2021 12/26/2022 1 1 Referral ID Status Reason Start Date Expiration Date Visits Requested Visits Authorized [id number] Pending Review Auto-Generat ed Referral 12/26/2021 12/26/2022 1 1 Specialty Diagnoses / Procedures Referred By Contac t Referred To Contact [facility] Diagnoses Patellar dislocation, left, subsequent encounter S/P orthopedic surgery, follow-up exam Procedures PT REHAB FOLLOW UP ORDER THERAPEUTIC EXERCISES RE, EA 15 MIN. June Staton, PT [facility] [address] [place] [address] Referral ID Status Reason Start Date Expiration Date Visits Requested Visits Authorized [id number] Pending Review PCP Requested Referral Auto-Generate d Referral 02/04/2022 05/05/2022 1 1 Specialty Diagnoses / Procedures Referred By Contac t Referred To Contact [facility] Diagnoses S/P knee surgery Loose body in knee, left knee Procedures MRI KNEE WO IVCON LEFT MRI ANY JT LOWER EXTREM W/O CONTRAST MATRMayda Davidson DO [address] [place] [address] [place] [id number] Referral ID Status Reason Start Date Expiration Date Visits Requested Visits Authorized [id number] Pending Review Auto-Generat ed Referral 07/31/2023 08/29/2024 1 1 Specialty Diagnoses / Procedures Referred By Contac t Referred To Contact [facility] Diagnoses S/P knee surgery Procedures CONSULT TO PHYSICAL THERAPY PHYSICAL THERAPY EVALUATION HIGH COMPLEX 45 MINS Mayda Solares DO [address] [place] [address] [facility] [address] [address] Referral ID Status Reason Start Date Expiration Date Visits Requested Visits Authorized [id number] Authorized Auto-Generat ed Referral 05/19/2023 05/18/2024 30 30 Specialty Diagnoses / Procedures Referred By Contac t Referred To Contact [facility] Diagnoses S/P knee surgery Loose body in knee, left knee Procedures MRI KNEE WO IVCON LEFT MRI ANY JT LOWER EXTREM W/O CONTRAST Mayda Lemons, DO [address] [place] [address] [address] Referral ID Status Reason Start Date Expiration Date V isits Requested Visits Authorized [id number] Closed Auto-Generate d Referral 07/31/2023 11/20/2023 1 1 Specialty Diagnoses / Procedures Referred By Contac t Referred To Contact Diagnoses 2 weeks follow-up Generalized anxiety disorder Procedures CONSULT TO [facility] OFFICE/OUTPATIENT [facility] 60 MINUTES Tran Gaytan APRN.ELIAZAR [address] [place] [address] Referral ID Status Reason Start Date Expiration Date Visits Requested Visits Authorized [id number] Authorized PCP Requested Referral 06/17/2024 06/17/2025 1 1 Specialty Diagnoses / Procedures Referred By Natasha burch Referred To Contact Diagnoses Post depression Procedures CONSULT TO PSYCHIATRY OFFICE/OUTPATIENT [facility] 60 MINUTES Nataliia Vail LISW [address] [place] [address] Referral ID Status Reason Start Date Expiration Date Visits Requested Visits Authorized [id number] Pending Review PCP Requested Referral 06/24/2024 06/24/2025 [...] non-immune status, antepartum Ja nuary 2024 11:24am Chief Complaint Admit Date abd [...] BITE CELLULITIS December 08, 2024 7:23 am Chief Complaint Admit Date BLEEDING December 05, 2024 10:4 0am bite December 07, 2024 9:08 pm CAT BITE CELLULITIS December 08, 2024 7:23 am CAT BITE CELLULITIS December 08, 2024 9:33 am CAT BITE CELLULITIS December 09, 2024 7:18 am CAT BITE CELLULITIS December 09, 2024 8:56 am CAT BITE CELLULITIS December 10, 2024 6:28 am CAT BITE CELLULITIS December 10, 2024 10:1 7am ED FOLLOW UP-C December 17, 2024 9:5 5am Reason for Visit Admit Date Cat bite December 08, 2024 7:23 am Cellulitis December 08, 2024 7:23 am Chief Complaint Admit Date BLEEDING December 05, 2024 10:4 0am bite December 07, 2024 9:08 pm CAT BITE CELLULITIS December 08, 2024 7:23 am CAT BITE CELLULITIS December 08, 2024 9:33 am CAT BITE CELLULITIS December 09, 2024 7:18 am CAT BITE CELLULITIS December 09, 2024 8:56 am CAT BITE CELLULITIS December 10, 2024 6:28 am CAT BITE CELLULITIS December 10, 2024 10:1 7am ED FOLLOW UP-[facility] December 17, 2024 9:5 5am CAT BITE. RX HERE January 06, 2025 4: 49pm med refill January 10, 2025 11 :56am Reason for Visit Admit Date Cat bite December 08, 2024 7:23 am Cellulitis December 08, 2024 7:23 am Cat bite December 17, 2024 9:5 5am Cellulitis December 17, 2024 9:5 5am Additional Source Comments INFORMATION SOURCE (unrecogn ized section and content) DATE CREATED AUTHOR [facility]/10/2019 [facility] DATE CREATED AUTHOR AUTHOR'S ORGANIZ ATION 09/28/2021 [facility] DATE CREATED AUTHOR AUTHOR'S ORGANIZ ATION 04/25/2023 [facility] DATE CREATED AUTHOR AUTHOR'S ORGANIZ ATION 01/26/2025 [facility] DATE CREATED AUTHOR AUTHOR'S ORGANIZ ATION 03/19/2025 [facility] Source Comments (unrecognize d section and content) In the event this informatio n is protected by the Federal Confidentiality of Alcohol and Drug Abuse Patient Records regulations: The Federal rules restrict any use of the information to criminally investigate or prosecute any alcohol or drug abuse patient.[facility] the event this information is protected by the Federal Confidentiality of Alcohol and Drug Abuse Patient Records regulations: The Federal rules restrict any use of the information to criminally investigate or prosecute any alcohol or drug abuse patient.[facility] HospitalIn the event this information is protected by the Federal Confidentiality of Alcohol and Drug Abuse Patient Records regulations: The Federal rules restrict any use of the information to criminally investigate or prosecute any alcohol or drug abuse patient.[facility] HospitalIn the event this information is protected by the Federal Confidentiality of Alcohol and Drug Abuse Patient Records regulations: The Federal rules restrict any use of the information to criminally investigate or prosecute any alcohol or drug abuse patient.[facility]In the event this information is protected by the Federal Confidentiality of Alcohol and Drug Abuse Patient Records regulations: The Federal rules restrict any use of the information to criminally investigate or prosecute any alcohol or drug abuse patient.[facility] HospitalIn the event this information is protected by the Federal Confidentiality of Alcohol and Drug Abuse Patient Records regulations: The Federal rules restrict any use of the information to criminally investigate or prosecute any alcohol or drug abuse patient.[facility] HospitalIn the event this information is protected by the Federal Confidentiality of Alcohol and Drug Abuse Patient Records regulations: The Federal rules restrict any use of the information to criminally investigate or prosecute any alcohol or drug abuse patient.[facility] HospitalIn the event this information is protected by the Federal Confidentiality of Alcohol and Drug Abuse Patient Records regulations: The Federal rules restrict any use of the information to criminally investigate or prosecute any alcohol or drug abuse patient.[facility] HospitalIn the event this information is protected by the Federal Confidentiality of Alcohol and Drug Abuse Patient Records regulations: The Federal rules restrict any use of the information to criminally investigate or prosecute any alcohol or drug abuse patient.[facility] HospitalIn the event this information is protected by the Federal Confidentiality of Alcohol and Drug Abuse Patient Records regulations: The Federal rules restrict any use of the information to criminally investigate or prosecute any alcohol or drug abuse patient.[facility] HospitalIn the event this information is protected by the Federal Confidentiality of Alcohol and Drug Abuse Patient Records regulations: The Federal rules restrict any use of the information to criminally investigate or prosecute any alcohol or drug abuse patient.[facility] HospitalIn the event this information is protected by the Federal Confidentiality of Alcohol and Drug Abuse Patient Records regulations: The Federal rules restrict any use of the information to criminally investigate or prosecute any alcohol or drug abuse patient.[facility] HospitalIn the event this information is protected by the Federal Confidentiality of Alcohol and Drug Abuse Patient Records regulations: The Federal rules restrict any use of the information to criminally investigate or prosecute any alcohol or drug abuse patient.[facility] HospitalIn the event this information is protected by the Federal Confidentiality of Alcohol and Drug Abuse Patient Records regulations: The Federal rules restrict any use of the information to criminally investigate or prosecute any alcohol or drug abuse patient.[facility] HospitalIn the event this information is protected by the Federal Confidentiality of Alcohol and Drug Abuse Patient Records regulations: The Federal rules restrict any use of the information to criminally investigate or prosecute any alcohol or drug abuse patient.[facility] HospitalIn the event this information is protected by the Federal Confidentiality of Alcohol and Drug Abuse Patient Records regulations: The Federal rules restrict any use of the information to criminally investigate or prosecute any alcohol or drug abuse patient.[facility] HospitalIn the event this information is protected by the Federal Confidentiality of Alcohol and Drug Abuse Patient Records regulations: The Federal rules restrict any use of the information to criminally investigate or prosecute any alcohol or drug abuse patient.[facility] HospitalIn the event this information is protected by the Federal Confidentiality of Alcohol and Drug Abuse Patient Records regulations: The Federal rules restrict any use of the information to criminally investigate or prosecute any alcohol or drug abuse patient.[facility] HospitalIn the event this information is protected by the Federal Confidentiality of Alcohol and Drug Abuse Patient Records regulations: The Federal rules restrict any use of the information to criminally investigate or prosecute any alcohol or drug abuse patient.[facility] HospitalIn the event this information is protected by the Federal Confidentiality of Alcohol and Drug Abuse Patient Records regulations: The Federal rules restrict any use of the information to criminally investigate or prosecute any alcohol or drug abuse patient.[facility] HospitalIn the event this information is protected by the Federal Confidentiality of Alcohol and Drug Abuse Patient Records regulations: The Federal rules restrict any use of the information to criminally investigate or prosecute any alcohol or drug abuse patient.[facility] HospitalIn the event this information is protected by the Federal Confidentiality of Alcohol and Drug Abuse Patient Records regulations: The Federal rules restrict any use of the information to criminally investigate or prosecute any alcohol or drug abuse patient.[facility] HospitalIn the event this information is protected by the Federal Confidentiality of Alcohol and Drug Abuse Patient Records regulations: The Federal rules restrict any use of the information to criminally investigate or prosecute any alcohol or drug abuse patient.[facility] HospitalIn the event this information is protected by the Federal Confidentiality of Alcohol and Drug Abuse Patient Records regulations: The Federal rules restrict any use of the information to criminally investigate or prosecute any alcohol or drug abuse patient.[facility] HospitalIn the event this information is protected by the Federal Confidentiality of Alcohol and Drug Abuse Patient Records regulations: The Federal rules restrict any use of the information to criminally investigate or prosecute any alcohol or drug abuse patient.[facility] HospitalIn the event this information is protected by the Federal Confidentiality of Alcohol and Drug Abuse Patient Records regulations: The Federal rules restrict any use of the information to criminally investigate or prosecute any alcohol or drug abuse patient.[facility] HospitalIn the event this information is protected by the Federal Confidentiality of Alcohol and Drug Abuse Patient Records regulations: The Federal rules restrict any use of the information to criminally investigate or prosecute any alcohol or drug abuse patient.[facility] HospitalIn the event this information is protected by the Federal Confidentiality of Alcohol and Drug Abuse Patient Records regulations: The Federal rules restrict any use of the information to criminally investigate or prosecute any alcohol or drug abuse patient.[facility] HospitalIn the event this information is protected by the Federal Confidentiality of Alcohol and Drug Abuse Patient Records regulations: The Federal rules restrict any use of the information to criminally investigate or prosecute any alcohol or drug abuse patient.[facility] HospitalIn the event this information is protected by the Federal Confidentiality of Alcohol and Drug Abuse Patient Records regulations: The Federal rules restrict any use of the information to criminally investigate or prosecute any alcohol or drug abuse patient.[facility] HospitalIn the event this information is protected by the Federal Confidentiality of Alcohol and Drug Abuse Patient Records regulations: The Federal rules restrict any use of the information to criminally investigate or prosecute any alcohol or drug abuse patient.[facility] HospitalIn the event this information is protected by the Federal Confidentiality of Alcohol and Drug Abuse Patient Records regulations: The Federal rules restrict any use of the information to criminally investigate or prosecute any alcohol or drug abuse patient.[facility] HospitalIn the event this information is protected by the Federal Confidentiality of Alcohol and Drug Abuse Patient Records regulations: The Federal rules restrict any use of the information to criminally investigate or prosecute any alcohol or drug abuse patient.[facility] HospitalIn the event this information is protected by the Federal Confidentiality of Alcohol and Drug Abuse Patient Records regulations: The Federal rules restrict any use of the information to criminally investigate or prosecute any alcohol or drug abuse patient.[facility] HospitalIn the event this information is protected by the Federal Confidentiality of Alcohol and Drug Abuse Patient Records regulations: The Federal rules restrict any use of the information to criminally investigate or prosecute any alcohol or drug abuse patient.[facility] HospitalIn the event this information is protected by the Federal Confidentiality of Alcohol and Drug Abuse Patient Records regulations: The Federal rules restrict any use of the information to criminally investigate or prosecute any alcohol or drug abuse patient.[facility] HospitalIn the event this information is protected by the Federal Confidentiality of Alcohol and Drug Abuse Patient Records regulations: The Federal rules restrict any use of the information to criminally investigate or prosecute any alcohol or drug abuse patient.[facility] HospitalIn the event this information is protected by the Federal Confidentiality of Alcohol and Drug Abuse Patient Records regulations: The Federal rules restrict any use of the information to criminally investigate or prosecute any alcohol or drug abuse patient.[facility] HospitalIn the event this information is protected by the Federal Confidentiality of Alcohol and Drug Abuse Patient Records regulations: The Federal rules restrict any use of the information to criminally investigate or prosecute any alcohol or drug abuse patient.[facility] HospitalIn the event this information is protected by the Federal Confidentiality of Alcohol and Drug Abuse Patient Records regulations: The Federal rules restrict any use of the information to criminally investigate or prosecute any alcohol or drug abuse patient.[facility] HospitalIn the event this information is protected by the Federal Confidentiality of Alcohol and Drug Abuse Patient Records regulations: The Federal rules restrict any use of the information to criminally investigate or prosecute any alcohol or drug abuse patient.[facility] HospitalIn the event this information is protected by the Federal Confidentiality of Alcohol and Drug Abuse Patient Records regulations: The Federal rules restrict any use of the information to criminally investigate or prosecute any alcohol or drug abuse patient.[facility] HospitalIn the event this information is protected by the Federal Confidentiality of Alcohol and Drug Abuse Patient Records regulations: The Federal rules restrict any use of the information to criminally investigate or prosecute any alcohol or drug abuse patient.[facility] HospitalIn the event this information is protected by the Federal Confidentiality of Alcohol and Drug Abuse Patient Records regulations: The Federal rules restrict any use of the information to criminally investigate or prosecute any alcohol or drug abuse patient.[facility] HospitalIn the event this information is protected by the Federal Confidentiality of Alcohol and Drug Abuse Patient Records regulations: The Federal rules restrict any use of the information to criminally investigate or prosecute any alcohol or drug abuse patient.[facility] HospitalIn the event this information is protected by the Federal Confidentiality of Alcohol and Drug Abuse Patient Records regulations: The Federal rules restrict any use of the information to criminally investigate or prosecute any alcohol or drug abuse patient.[facility] HospitalIn the event this information is protected by the Federal Confidentiality of Alcohol and Drug Abuse Patient Records regulations: The Federal rules restrict any use of the information to criminally investigate or prosecute any alcohol or drug abuse patient.[facility] HospitalIn the event this information is protected by the Federal Confidentiality of Alcohol and Drug Abuse Patient Records regulations: The Federal rules restrict any use of the information to criminally investigate or prosecute any alcohol or drug abuse patient.[facility] HospitalIn the event this information is protected by the Federal Confidentiality of Alcohol and Drug Abuse Patient Records regulations: The Federal rules restrict any use of the information to criminally investigate or prosecute any alcohol or drug abuse patient.[facility] HospitalIn the event this information is protected by the Federal Confidentiality of Alcohol and Drug Abuse Patient Records regulations: The Federal rules restrict any use of the information to criminally investigate or prosecute any alcohol or drug abuse patient.[facility] HospitalIn the event this information is protected by the Federal Confidentiality of Alcohol and Drug Abuse Patient Records regulations: The Federal rules restrict any use of the information to criminally investigate or prosecute any alcohol or drug abuse patient.[facility] HospitalIn the event this information is protected by the Federal Confidentiality of Alcohol and Drug Abuse Patient Records regulations: The Federal rules restrict any use of the information to criminally investigate or prosecute any alcohol or drug abuse patient.[facility] HospitalIn the event this information is protected by the Federal Confidentiality of Alcohol and Drug Abuse Patient Records regulations: The Federal rules restrict any use of the information to criminally investigate or prosecute any alcohol or drug abuse patient.[facility] HospitalIn the event this information is protected by the Federal Confidentiality of Alcohol and Drug Abuse Patient Records regulations: The Federal rules restrict any use of the information to criminally investigate or prosecute any alcohol or drug abuse patient.[facility] HospitalIn the event this information is protected by the Federal Confidentiality of Alcohol and Drug Abuse Patient Records regulations: The Federal rules restrict any use of the information to criminally investigate or prosecute any alcohol or drug abuse patient.[facility] HospitalIn the event this information is protected by the Federal Confidentiality of Alcohol and Drug Abuse Patient Records regulations: The Federal rules restrict any use of the information to criminally investigate or prosecute any alcohol or drug abuse patient.[facility] HospitalIn the event this information is protected by the Federal Confidentiality of Alcohol and Drug Abuse Patient Records regulations: The Federal rules restrict any use of the information to criminally investigate or prosecute any alcohol or drug abuse patient.[facility] HospitalIn the event this information is protected by the Federal Confidentiality of Alcohol and Drug Abuse Patient Records regulations: The Federal rules restrict any use of the information to criminally investigate or prosecute any alcohol or drug abuse patient.[facility] HospitalIn the event this information is protected by the Federal Confidentiality of Alcohol and Drug Abuse Patient Records regulations: The Federal rules restrict any use of the information to criminally investigate or prosecute any alcohol or drug abuse patient.[facility] HospitalIn the event this information is protected by the Federal Confidentiality of Alcohol and Drug Abuse Patient Records regulations: The Federal rules restrict any use of the information to criminally investigate or prosecute any alcohol or drug abuse patient.[facility] HospitalIn the event this information is protected by the Federal Confidentiality of Alcohol and Drug Abuse Patient Records regulations: The Federal rules restrict any use of the information to criminally investigate or prosecute any alcohol or drug abuse patient.[facility] HospitalIn the event this information is protected by the Federal Confidentiality of Alcohol and Drug Abuse Patient Records regulations: The Federal rules restrict any use of the information to criminally investigate or prosecute any alcohol or drug abuse patient.[facility] HospitalIn the event this information is protected by the Federal Confidentiality of Alcohol and Drug Abuse Patient Records regulations: The Federal rules restrict any use of the information to criminally investigate or prosecute any alcohol or drug abuse patient.[facility] HospitalIn the event this information is protected by the Federal Confidentiality of Alcohol and Drug Abuse Patient Records regulations: The Federal rules restrict any use of the information to criminally investigate or prosecute any alcohol or drug abuse patient.[facility] HospitalIn the event this information is protected by the Federal Confidentiality of Alcohol and Drug Abuse Patient Records regulations: The Federal rules restrict any use of the information to criminally investigate or prosecute any alcohol or drug abuse patient.[facility] HospitalIn the event this information is protected by the Federal Confidentiality of Alcohol and Drug Abuse Patient Records regulations: The Federal rules restrict any use of the information to criminally investigate or prosecute any alcohol or drug abuse patient.[facility] HospitalIn the event this information is protected by the Federal Confidentiality of Alcohol and Drug Abuse Patient Records regulations: The Federal rules restrict any use of the information to criminally investigate or prosecute any alcohol or drug abuse patient.[facility] HospitalIn the event this information is protected by the Federal Confidentiality of Alcohol and Drug Abuse Patient Records regulations: The Federal rules restrict any use of the information to criminally investigate or prosecute any alcohol or drug abuse patient.[facility] Hospital[facility] the event this information is protected by the Federal Confidentiality of Alcohol and Drug Abuse Patient Records regulations: The Federal rules restrict any use of the information to criminally investigate or prosecute any alcohol or drug abuse patient.[facility] HospitalIn the event this information is protected by the Federal Confidentiality of Alcohol and Drug Abuse Patient Records regulations: The Federal rules restrict any use of the information to criminally investigate or prosecute any alcohol or drug abuse patient.[facility] HospitalIn the event this information is protected by the Federal Confidentiality of Alcohol and Drug Abuse Patient Records regulations: The Federal rules restrict any use of the information to criminally investigate or prosecute any alcohol or drug abuse patient.[facility] HospitalIn the event this information is protected by the Federal Confidentiality of Alcohol and Drug Abuse Patient Records regulations: The Federal rules restrict any use of the information to criminally investigate or prosecute any alcohol or drug abuse patient.[facility] HospitalIn the event this information is protected by the Federal Confidentiality of Alcohol and Drug Abuse Patient Records regulations: The Federal rules restrict any use of the information to criminally investigate or prosecute any alcohol or drug abuse patient.[facility] HospitalIn the event this information is protected by the Federal Confidentiality of Alcohol and Drug Abuse Patient Records regulations: The Federal rules restrict any use of the information to criminally investigate or prosecute any alcohol or drug abuse patient.[facility] HospitalIn the event this information is protected by the Federal Confidentiality of Alcohol and Drug Abuse Patient Records regulations: The Federal rules restrict any use of the information to criminally investigate or prosecute any alcohol or drug abuse patient.[facility] HospitalIn the event this information is protected by the Federal Confidentiality of Alcohol and Drug Abuse Patient Records regulations: The Federal rules restrict any use of the information to criminally investigate or prosecute any alcohol or drug abuse patient.[facility] HospitalIn the event this information is protected by the Federal Confidentiality of Alcohol and Drug Abuse Patient Records regulations: The Federal rules restrict any use of the information to criminally investigate or prosecute any alcohol or drug abuse patient.[facility] HospitalIn the event this information is protected by the Federal Confidentiality of Alcohol and Drug Abuse Patient Records regulations: The Federal rules restrict any use of the information to criminally investigate or prosecute any alcohol or drug abuse patient.[facility] HospitalIn the event this information is protected by the Federal Confidentiality of Alcohol and Drug Abuse Patient Records regulations: The Federal rules restrict any use of the information to criminally investigate or prosecute any alcohol or drug abuse patient.[facility] HospitalIn the event this information is protected by the Federal Confidentiality of Alcohol and Drug Abuse Patient Records regulations: The Federal rules restrict any use of the information to criminally investigate or prosecute any alcohol or drug abuse patient.[facility] HospitalIn the event this information is protected by the Federal Confidentiality of Alcohol and Drug Abuse Patient Records regulations: The Federal rules restrict any use of the information to criminally investigate or prosecute any alcohol or drug abuse patient.[facility] HospitalIn the event this information is protected by the Federal Confidentiality of Alcohol and Drug Abuse Patient Records regulations: The Federal rules restrict any use of the information to criminally investigate or prosecute any alcohol or drug abuse patient.[facility] HospitalIn the event this information is protected by the Federal Confidentiality of Alcohol and Drug Abuse Patient Records regulations: The Federal rules restrict any use of the information to criminally investigate or prosecute any alcohol or drug abuse patient.[facility] HospitalIn the event this information is protected by the Federal Confidentiality of Alcohol and Drug Abuse Patient Records regulations: The Federal rules restrict any use of the information to criminally investigate or prosecute any alcohol or drug abuse patient.[facility] HospitalIn the event this information is protected by the Federal Confidentiality of Alcohol and Drug Abuse Patient Records regulations: The Federal rules restrict any use of the information to criminally investigate or prosecute any alcohol or drug abuse patient.[facility] Care Teams (unrecognized sec tion and content) Motor Equipment Captain Relationship Specialty Start Date End Date Ren Carlson MD [address] [place] [address] PCP - General 04 Motor Equipment Captain Relationship Specialty Start Date End Date Ren Carlson MD [facility] [place] [address] PCP - General 04 Motor Equipment Captain Relationship Specialty Start Date End Date Ren Carlson MD [address] [place] [address] PCP - General 04 Motor Equipment Captain Relationship Specialty Start Date End Date Ren Carlson MD [address] [place] [address] PCP - General 04 Motor Equipment Captain Relationship Specialty Start Date End Date Ren Carlson MD [facility] [place] [address] PCP - General 04 Motor Equipment Captain Relationship Specialty Start Date End Date Ren Carlson MD [address] [place] [address] PCP - General 04 Motor Equipment Captain Relationship Specialty Start Date End Date Ren Carlson MD [address] [facility], [place] [id number] PCP - General 04 Motor Equipment Captain Relationship Specialty Start Date End Date Ren Carlson MD [address] [facility], [place] [address] PCP - General 04 Motor Equipment Captain Relationship Specialty Start Date End Date Ren Carlson MD [address] [facility], [place] [id number] PCP - General 04 Motor Equipment Captain Relationship Specialty Start Date End Date Ren Carlson MD [address] [facility], [place] [address] PCP - General 04 Motor Equipment Captain Relationship Specialty Start Date End Date Ren Carlson MD [address] [facility], [place] [address] PCP - General 04 Team Status: Active [...] Attending Provider Active Start: December 08, 2024 Team Status: Inactive Member Role/Relationship Status Dates No Primary Care Physician Primary Care Provider Active Start: December 05, 2024 End: December 05, 2024 Dr. Blane Alfred MD Attending Provider Active S tart: December 05, 2024 End: December 05, 2024 Dr. Blane Alfred MD Emergency Provider Active S tart: December 05, 2024 End: December 05, 2024 Team Status: Inactive Member Role/Relationship Status Dates No Primary Care Physician Primary Care Provider Active Start: December 07, 2024 End: December 07, 2024 Dr. Vlad Jay DO Attending Provider Active Start: December 07, 2024 End: December 07, 2024 Dr. Vlad Jay DO Emergency Provider Active Start: December 07, 2024 End: December 07, 2024 Team Status: Inactive Member Role/Relationship Status Dates No Primary Care Physician Primary Care Provider Active Start: December 08, 2024 End: December 10, 2024 Dr. Vlad Jay DO Emergency Provider Active Start: December 08, 2024 End: December 10, 2024 Dr. Gilbert Whittington MD Admit Provider Active Start: December 08, 2024 End: December 10, 2024 Dr. Gilbert Whittington MD Attending Provider Active Start: December 08, 2024 End: December 10, 2024 Dr. Basilio Min MD Other Provider Active Star t: December 08, 2024 End: December 10, 2024 Dr. Basilio Min MD Other Provider Active Star t: December 08, 2024 Team Status: Active Member Role/Relationship Status Dates No Primary Care Physician Primary Care Provider Active Start: December 08, 2024 Dr. Vlad Jay DO Emergency Provider Active Start: December 08, 2024 Dr. Gilbert Whittington MD Admit Provider Active Start: December 08, 2024 Dr. Gilbert Whittington MD Attending Provider Active Start: December 08, 2024 Dr. Gilbert Whittington MD Other Provider Active Start: December 08, 2024 Dr. Basilio Min MD Other Provider Active Star t: December 08, 2024 Team Status: Active Member Role/Relationship Status Dates No Primary Care Physician Primary Care Provider Active Start: December 09, 2024 Dr. Vlad Jay DO Emergency Provider Active Start: December 09, 2024 Dr. Gilbert Whittington MD Admit Provider Active Start: December 09, 2024 Dr. Gilbert Whittington MD Other Provider Active Start: December 09, 2024 Dr. Basilio Min MD Attending Provider Active Start: December 09, 2024 Dr. Basilio Min MD Other Provider Active Star t: December 09, 2024 Team Status: Active Member Role/Relationship Status Dates No Primary Care Physician Primary Care Provider Active Start: December 09, 2024 Dr. Vlad Jay DO Emergency Provider Active Start: December 09, 2024 Dr. Gilbert Whittington MD Admit Provider Active Start: December 09, 2024 Dr. Gilbert Whittington MD Attending Provider Active Start: December 09, 2024 Dr. Gilbert Whittington MD Other Provider Active Start: December 09, 2024 Dr. Basilio Min MD Other Provider Active Star t: December 09, 2024 Team Status: Active Member Role/Relationship Status Dates No Primary Care Physician Primary Care Provider Active Start: December 10, 2024 Dr. Vlad Jay DO Emergency Provider Active Start: December 10, 2024 Dr. Gilbert Whittington MD Admit Provider Active Start: December 10, 2024 Dr. Gilbert Whittington MD Other Provider Active Start: December 10, 2024 Dr. Basilio Min MD Attending Provider Active Start: December 10, 2024 Dr. Basilio Min MD Other Provider Active Star t: December 10, 2024 Team Status: Active Member Role/Relationship Status Dates No Primary Care Physician Primary Care Provider Active Start: December 10, 2024 Dr. Vlad Jay DO Emergency Provider Active Start: December 10, 2024 Dr. Gilbert Whittington MD Admit Provider Active Start: December 10, 2024 Dr. Gilbert Whittington MD Attending Provider Active Start: December 10, 2024 Dr. Gilbert Whittington MD Other Provider Active Start: December 10, 2024 Dr. Basilio Min MD Other Provider Active Star t: December 10, 2024 Team Status: Inactive Member Role/Relationship Status Dates No Primary Care Physician Primary Care Provider Active Start: December 17, 2024 End: December 17, 2024 No Primary Care Physician Referring Provider Active Start: December 17, 2024 End: December 17, 2024 Dr. Basilio Min MD Attending Provider Active Start: December 17, 2024 End: December 17, 2024 Team Status: Active Member Role/Relationship Status Dates No Primary Care Physician Primary Care Provider Active Start: January 06, 2025 Dr. Basilio Min MD Attending Provider Active Start: January 06, 2025 Dr. Basilio Min MD Referring Provider Active Start: January 06, 2025 Team Status: Inactive Member Role/Relationship Status Dates No Primary Care Physician Primary Care Provider Active Start: January 10, 2025 End: January 10, 2025 Dr. Donnie Manrique MD Emergency Provider Active Sta rt: January 10, 2025 End: January 10, 2025 Reason for Visit (unrecogniz ed section and content) Reason Comments Physical Therapy Specialty Diagnoses / Procedures Referred By Natasha t Referred To Contact [facility] Diagnoses S/P knee surgery Procedures CONSULT TO PHYSICAL THERAPY PHYSICAL THERAPY EVALUATION HIGH COMPLEX 45 MINS Mayda Solares DO [address] [place] [address] [facility] [address] [address] Referral ID Status Reason Start Date Expiration Date Visits Requested Visits Authorized [id number] Authorized Auto-Generat ed Referral 05/19/2023 05/18/2024 30 30 Reason Comments PT Progress Note Specialty Diagnoses / Procedures Referred By Contact Referred To Contact [facility] Diagnoses Patellar dislocation, left, subsequent encounter S/P orthopedic surgery, follow-up exam Procedures CONSULT TO PHYSICAL THERAPY PHYSICAL THERAPY EVALUATION HIGH COMPLEX 45 MINS THERAPEUTIC EXERCISES RE, EA 15 MIN. Otoniel Gates PA-C [address] [place] [address] [facility] [address] [address] Referral ID Status Reason Start Date Expiration Date Visits Requested Visits Authorized [id number] Authorized Auto-Generat ed Referral 12/26/2021 05/18/2022 99 99 Reason Comments New Knee Pain Swelling Reason Comments [facility] Sched[facility] Specialty Diagnoses / Procedures Referred By Natasha burch Referred To Contact [facility] Diagnoses Chronic pain of left knee Knee OCD Procedures MRI KNEE WO IVCON LT MRI ANY JT LOWER EXTREM W/O CONTRAST MATRL Mayda Solares DO [address] [place] [id number] [facility] Referral ID Status Reason Start Date Expiration Date V isits Requested Visits Authorized [id number] Closed Auto-Generate d Referral 09/28/2021 10/27/2021 1 [...] RE, EA 15 MIN. Otoniel Gates PA-C [address] [place] [address] [facility] [address] [address] Reason Comments Post Op 7 weeks 6 [...] EXTREM W/O CONTRAST Mayda Lemons DO [address] [facility] [address] [place] [address] [address] Referral ID Status Reason Start Date Expiration Date V isits Requested Visits Authorized [id number] Closed Auto-Generate d Referral 07/31/2023 11/20/2023 1 1 Reason Comments Nausea x 3 days, 7 weeks pr egnant Reason Comments Yearly Exam Contact lens evaluation Reason Comments Initial OB Visit Reason Comments PRAF Initial PRAF Reason Comments US Specialty Diagnoses / Procedures Referred By Natasha t Referred To Contact [facility] Diagnoses 12 weeks gestation of Procedures NUCHAL TRANSLUCENCY WHI US NUCHAL TRANSLUCENCY 1ST GESTATION Anitra Caldwell APRN.ELIAZAR [address] [place] [address] [address] Referral ID Status Reason Start Date Expiration Date Visits Requested Visits Authorized [id number] New Request Auto-Generat ed Referral 11/28/2023 11/27/2024 1 1 Reason Onset Date Comments Care 11/28/2023 Reason Comments Nausea & Vomiting Reason Comments Nausea & Vomiting With 14 weeks pregna ncy Reason Onset Date Comments Care 12/23/2023 Reason Onset Date Comments Care 01/23/2024 Specialty Diagnoses / Procedures Referred By Contac t Referred To Contact [facility] Diagnoses Supervision of normal first teen in second trimester Procedures OBSTETRIC ULTRASOUND WHI US PREG UTERUS AFTER 1ST TRIMEST GESTATION Anitra Caldwell APRN.ELIAZAR [address] [place] [address] [address] Referral ID Status Reason Start Date Expiration Date V isits Requested Visits Authorized [id number] Closed Auto-Generate d Referral 11/28/2023 11/27/2024 1 1 Reason Comments Fans Clerk - Other PRAF Reason Comments ULTRASOUND Reason [...] By Contac t Referred To Contact [facility] Diagnoses Low-lying placenta Supervision of normal first teen in second trimester Procedures OBSTETRIC ULTRASOUND WHI US PREG UTERUS AFTER 1ST TRIMEST GESTATION Anitra Caldwell APRN.CNM [address] [place] [address] [address] Referral ID Status Reason Start Date Expiration Date V isits Requested Visits Authorized [id number] Closed Auto-Generate d Referral 01/26/2024 01/25/2025 1 [...] Referred By Natasha burch Referred To Contact [facility] Diagnoses Encounter for IUD insertion Procedures INSERT INTRAUTERINE DEVICE INSERT INTRAUTERINE DEVICE Tran Gaytan APRN.[facility] [address] [place] [address] Phone: tel: fax: [facility] [place] [facility] [address] [place] [address] Referral ID Status Reason Start Date Expiration Date V isits Requested Visits Authorized [id number] Closed Auto-Generate d Referral 07/28/2024 07/28/2025 1 1 Reason Comments Vaginal Bleeding Reason Onset Date Comments Refill Request 12/27/2024 Reason Comments Conjunctivitis Bilateral, L eye wor se x1 day Allergic Reaction Was recently on ster oids and antibiotics for cat bite, possible allergic skin reaction to medication, L forearm Goals (unrecognized section and content) Goals may [...] BE BASED ON THE PRIMARY CLINICAL RECORDS. [facility]. provides no warranty or guarantee of the accuracy or completeness of information in this document.
--- NOTE | 2025-05-08 11:09 | EDS_ITS ---
HPI HPI - Psych History of Present Illness Chief Complaint: Mental Health Narrative Narrative: Chief complaint and HPI: 27-year-old female with past medical history of bipolar disorder, anxiety presents for evaluation of labile mood. Patient states for the past several months she has had labile mood. Easily cries. States she felt it was secondary to a stressful job in which she got another job but symptoms remained. She follows with a psychiatrist to 2 weeks ago increased her bipolar medication. Patient states she was at work today and everything upset her making her cry. She denies any suicidal or homicidal ideation. Denies any visual or auditory hallucinations. Scared with her labile mood she could eventually become manic. Currently not manic. She does not believe herself to be . Review of systems: See HPI Medications: As listed on the chart Allergies: As listed on the chart PFSH: Per chart Vital signs: As listed on the chart. Reviewed. Physical exam: Gen: A&O x3, intermittently tearful Head: Normocephalic, atraumatic Eyes: No sclera icterus, conjunctiva clear ENT: Moist mucous membranes CV: RRR, no murmurs, no peripheral edema Resp: Lungs CTA BL, no w/r/c Skin: Warm, dry Neuro: Alert, oriented, grossly intact, sensation intact Psych: Cooperative, intermittently tearful, mildly anxious, no pressured speech or flight of ideas, no chris PFSH PFSH Medical History Anxiety Encounter for screening for COVID-19 Home Medications Medication Instructions Recorded Last Taken Type vit no.95-ferrous 1 tab PO DAILY SUPPLEMENT 1 05/21/23 05/24/24 21:00 History fumarate 28 mg-folic acid 800 mcg 1 TA B tablet () pantoprazole 40 mg granules 40 mg PO PRN INDIGESTION 0 05/25/24 05/24/24 09:00 History delayed-release for susp in packet 40 mg (Protonix) sennosides 8.6 mg-docusate sodium 1 - 2 tab PO DAILY P RN PRN 05/27/24 Unknown Rx 50 mg tablet (Stimulant Laxative Constipation #30 tabs Plus) hydrocodone-acetaminophen 5-325mg 1 tab PO Q4H PRN pako n 2 days #8 08/17/24 Unknown Rx 5mg-325mg tabs amoxicillin 875 mg-potassium 1 tab PO BID 10 days #20 tabs 12/07/24 Unknown Rx clavulanate 125 mg tablet oxycodone-acetaminophen 5 mg-325 1 tab PO Q6H PRN pain 3 days #12 12/07/24 Unknown Rx mg tablet (Percocet) tabs lactase 3,000 unit tablet (Dairy 3,000 unit PO .COMPLE X PRN lactose 12/08/24 Unknown History Relief) intolerant sertraline 25 mg tablet (Zoloft) 50 mg PO DAILY ANXIET Y 12/08/24 Unknown History sertraline 50 mg tablet (Zoloft) 50 mg PO DAILY #30 ta bs 01/10/25 Unknown Rx Allergy/AdvReac Type Severity Reaction Status Date / Time lactase (From Dairy Aid) Allergy Mild Abdominal Verified 05/08/25 10:40 cramping Family History Grandfather Leukemia DVT (deep venous thrombosis) Grandmother Breast cancer Grandmother Diabetes Heart disease Lung cancer Surgical History History of surgery History of removal of cyst H/O tooth extraction Social History Smoking Status: Never smoker alcohol intake: never what type of physical activity do you participate in: additional details: gym, sports seatbelt use: always EXAM Physical Exam Const Vital Signs: 05/08/25 10:38 Temperature 97 F L Temperature Source Temporal Pulse Rate 86 Respiratory Rate 15 Blood Pressure 147/100 H Blood Pressure Mean 115 Pulse Ox 100 Oxygen Delivery Method Room Air MDM MDM MDM Narrative Medical decision making narrative: 27-year-old female with past medical history of bipolar disorder, anxiety presents for evaluation of labile mood. Patient states for the past several months she has had labile mood. Easily cries. States she felt it was secondary to a stressful job in which she got another job but symptoms remained. She follows with a psychiatrist to 2 weeks ago increased her bipolar medication. Patient states she was at work today and everything upset her making her cry. She denies any suicidal or homicidal ideation. Denies any visual or auditory hallucinations. Not manic. On presentation, patient is mildly anxious. She is intermittently tearful. Patient is not paranoid, psychotic, manic. No suicidal or auditory hallucinations. I do not think she requires inpatient psychiatric facility placement or pink slip. Patient does not voluntarily placed. At this point in time, we will give her Ativan for her anxiety. She will obtain a rid on reevaluation, patient is more relaxed. Prior to Ativan will perform urine . Social work consulted. negative. On reevaluation, patient is more relaxed after the Ativan. She spoke with the licensed master social worker. picking table worker agrees with outpatient follow-up. She was given outpatient resources. Patient was educated she cannot drive for the next 8 hours due to the Ativan. She confirmed understanding. Follow-up with psychiatrist and primary care physician. Return precautions explained. Impression: 1. Labile mood with history of bipolar 2. Anxiety Lab Data Labs: Laboratory Results - last 24 hr 05/08/25 11:10 Urine Test Negative Discharge Plan Triage Chief Complaint: Mental Health ED Provider: Stefan Combs Dx/Rx/DC Orders Prescriptions: No Action sertraline [Zoloft] 50 mg tablet 50 mg PO DAILY Qty: 30 2RF PNV no.95-ferrous fumarate-FA [] 28 mg iron- 800 mcg tablet 1 tab PO DAILY pantoprazole [Protonix] [address] for susp in packet 40 mg PO PRN sennosides-docusate sodium [Stimulant Laxative Plus] 8.6-50 mg Tablet 1 - 2 tab PO DAILY PRN PRN (Reason: Constipation) Qty: 30 0RF hydrocodone-acetaminophen 5-325 mg tablet 1 tab PO Q4H PRN (Reason: pain) 2 Days Qty: 8 0RF amoxicillin-pot clavulanate 875-125 mg tablet 1 tab PO BID 10 Days Qty: 20 0RF oxycodone-acetaminophen [Percocet] 5-325 mg tablet 1 tab PO Q6H PRN (Reason: pain) 3 Days Qty: 12 0RF sertraline [Zoloft] 25 mg tablet 50 mg PO DAILY lactase [Dairy Relief] 3,000 unit tablet 3,000 unit PO .COMPLEX PRN (Reason: lactose intolerant) Rx Instructions: 3,000 units orally WITH LACTOSE PRODUCTS PRN; Primary Care Provider: Care Physician,No Primary Referrals: Care Physician,No Primary [Primary Care Provider, Medical] Print Language: Frisian
[2025-05-08 11:27] LABS: Internal QC Validated? YES +Cl - CLEAR BKGD; Pregnancy, Urine Negative Negative
--- NOTE | 2025-05-08 11:46 | CM.ED ---
Social Work Date of referral: 05/08/25 Reason for referral: Mental Health Referred by: ED physician Patient provided consent to social work visit. Patient was tearful and explained that she does not feel as though her medications are "working". Patient is current seeing a psychiatrist through [facility] but wasn't able to remember the name other than Sukumar. Patient reported she's had 2 virtual appointments with the last one being 2 weeks ago when a different psychiatrist increased the dosage on her medication.(Zoloft) Patient denied being connected to a mental health therapist. Intelligence Engineer provided education/benefits of getting connected at a recommended weekly appointment, at which point patient expressed an interest in. Patient stated she lives with her son who is almost a year old. Patient has a close friend that lives in the same building whom patient identified as a support. Patient stated the father of her baby cheated on her so she kicked him out. Patient identified her mother as a support who cares for her son during the times she works and/or needs help. Patient also stated she is on better terms with the father of the baby who also helps provide children's librarian. Patient stated she's been diagnosed with OCD, ADHD, BPD, Anxiety and Bipolar. Patient stated she developed PPD 2-3 months following however stated it has since resolved itself. Intelligence Engineer questioned whether it had as patient was very tearful throughout the assessment. Patient stated she forgets a lot of things, especially work related tasks and can't figure out why. Patient stated her anxiety has worsened to the point to where she has to have a friend go to the grocery store with her or else will utilize [facility] [employer]. Patient stated she researched inpatient hospitals in December or January of this year and was able to get herself checked into [facility] where she was for 4 days. Patient was discharged home with medication that patient stated didn't work, so patient checked herself back in where she remained "for the rest of the week". Patient denied any current suicidal or homicidal ideation and reported feeling safe, but just not medically managed with her anxiety symptoms. Patient stated she struggles the most at work and is better at home in her own environment with her standard routine. Intelligence Engineer provided patient with verbal and written anxiety management strategies, written resources for mental health counseling as well as the behavioral health programs offered through [facility], all of which patient accepted and expressed appreciation for. Patient stated whereas in the past she felt like inpatient treatment was needed, patient denied a current need/desire for inpatient psychiatric treatment. Intelligence Engineer then consulted with ED physician again who felt that patient being discharged home with the resources that were provided as well as follow up with current psychiatrist is an appropriate plan of care at this time. No health and/or safety issues were identified. Amelia Owens, WEBBING TACKER, PATIENT FINANCIAL SPECIALIST
[2025-05-08 11:59] VITALS: BP 123/79; PULSE 82; RESP 16; TEMP 36.6; O2SAT 94
== END 2025-05-08 12:03 | disposition home or self-care (01) ==
PROVIDERS: Emergency Provider Surgery; Visit Provider Surgery
DX: F31.9 Bipolar disorder, unspecified (principal); F41.9 Anxiety disorder, unspecified; F06.30 Mood disorder due to known physiological condition, unspecified
CPT/HCPCS: 81025; 99282